=== PATIENT | male | born 1950 | race Caucasian/White ===

== ENCOUNTER 2019-07-23 09:04 | Inpatient (IN) | payer BC, MEDICARE ==
[2019-07-23] MEDS ORDERED: SODIUM CHLORIDE 0.9% 500 ML 500 ML IV ONE (10:07)
[2019-07-23] MEDS ORDERED: SODIUM CHLORIDE 0.9% 1,000 ML IV ONE (10:07)
[2019-07-23] MEDS ORDERED: MIDAZOLAM PF (FBP) 2 MG/2 ML VIAL IV ONE ×2 (10:20)
[2019-07-23] MEDS ORDERED: LIDOCAINE 1% INJ 10MG/ML (20 ML MDV) SQ ONE (10:23)
[2019-07-23] MEDS: MIDAZOLAM PF (FBP) 2 MG/2 ML VIAL IV ONE ×2 (10:26→10:30)
[2019-07-23] MEDS ORDERED: BIVALIRUDIN BOLUS 250 MG/50 ML IV ONE (10:32)
[2019-07-23] MEDS ORDERED: CLOPIDOGREL 75 MG TAB ONE (10:33)
[2019-07-23] MEDS ORDERED: BIVALIRUDIN 250 MG in SODIUM CHLORIDE 0.9% 50 ML IV ONE (10:36)
[2019-07-23] MEDS ORDERED: CLOPIDOGREL 75 MG TAB PO ONE (10:38)
[2019-07-23] MEDS: NITROGLYCERIN 1000MCG/10ML SYRINGE INTRACORON ONE ×2 (10:42→10:50)
[2019-07-23] MEDS ORDERED: MAG HYDROX/AL HYDROX/SIMETH 30 ML CUP PO PRN (10:57)
[2019-07-23] MEDS ORDERED: RX INFO: IV CONTRAST WAS GIVEN 1 EACH MISC MISCELLANE PRN (10:57)
[2019-07-23] MEDS ORDERED: ZOLPIDEM 5 MG TAB PO PRN (10:57)
[2019-07-23] MEDS ORDERED: ATROPINE SULFATE 0.1 MG/ML 10ML SYRINGE IV PRN (10:57)
[2019-07-23] MEDS ORDERED: NITROGLYCERIN SL TABS 0.4 MG TAB SUBLINGUAL PRN (10:57)
[2019-07-23] MEDS ORDERED: SODIUM CHLORIDE 0.9% 1,000 ML IV SCH (11:00)
--- NOTE | 2019-07-23 12:11 | CC ---
CARDIAC CATHETERIZATION REPORT DATE OF SERVICE: July 23, 2019 PERFORMING PHYSICIAN: Marcelino Linda MD, poly packer and heat sealer. PROCEDURE PERFORMED: 1. Selective right and left coronary angiogram. 2. Left heart catheterization. 3. Successful stenting of the mid right coronary artery using 3.0 x 38 mm Xience drug- eluting stent with an excellent angiographic result and reduction of stenosis from 90% to 0%. 4. Successful stenting of the proximal right coronary artery using 3.5 x 28 mm Xience DORIS with an excellent angiographic result and reduction of stenosis from 99% to 0%. INDICATION: This is a 68-year-old gentleman with history of smoking as well as possible hypertension and dyslipidemia, presented to [facility] with shortness of breath. No chest pain. He was ruled in for acute non ST elevation myocardial infarction. The troponin came in to be abnormal around 5. The EKG showed ST changes in the inferior leads quite concerning for severe underlying coronary artery disease. Because of that, a heart catheterization was advised. APPROACH: Right common femoral artery. COMPLICATION: None. LEVEL OF SEDATION: Moderate with sedation length of 30 minutes. PROCEDURE DESCRIPTION: After obtaining an informed consent, the patient was brought to the cardiac laboratory manager. The right common femoral artery was cannulated using micropuncture technique, the micropuncture wire passed easily then I placed a 6-Spanish sheath 11 cm in the right femoral artery. After that I did selective right and left coronary angiogram with JR4 and JL4 catheters. Left heart catheterization was performed using 6-Spanish pigtail catheter. After that I did intervene on the RCA, please see a separate paragraph for that. SELECTIVE CORONARY ANGIOGRAM: 1. The right coronary artery is a large caliber vessel and it is a dominant vessel. The proximal and mid RCA diffusely diseased up to about 99% in the proximal and 90% in the mid. The RCA distally is normal and bifurcates into PDA and PLV branches both appeared to be angiographically normal. 2. The left main is a large caliber vessel. It is angiographically normal. It bifurcates into left circumflex, ramus intermedius, and left anterior descending artery. 3. The left circumflex is a large caliber vessel. It is a nondominant vessel. The left circumflex in the proximal portion has a lesion appeared to be in the range of 60% to 70%. It gives rise into first OM branch which has an intermediate lesion appeared to be in the range of 50% to 60%. 4. The ramus intermedius is a large caliber vessel with mild disease only. 5. The LAD is a large caliber vessel. It has mild disease only. HEMODYNAMICS: The left ventricular end-diastolic pressure was 20 mmHg without significant gradient across the aortic valve. PCI OF THE RCA: Anticoagulation was initiated using Angiomax. Subsequently I did engage the RCA using JR3.5 guide. I did wire it using a whisper wire. I did balloon angioplasty using 3.0 x 15 mm balloon before I deployed in the mid RCA 3.0 x 38 mm Xience drug-eluting stent where the stent was positioned under fluoroscopy guidance and deployed under 14 atmospheres for 20 seconds. For the proximal RCA, I deployed a 3.5 x 28 mm another Xience drug-eluting stent where the second stent was positioned under fluoroscopy guidance with about 2 mm between this stent and the previous stent and the second stent was deployed under 14 atmospheres for 20 seconds. The area of overlap between the 2 stents was dilated using the stent balloon. The final angiogram showed excellent angiographic results and the procedure was completed without any complication. CONCLUSION: 1. Acute coronary syndrome. 2. Critical disease involving the proximal and mid RCA. 3. Intermediate to severe disease involving the left circumflex. 4. Intermediate disease involving the ramus intermedius. 5. Mild disease involving the LAD. 6. Successful stenting of the mid and proximal RCA as described above. POSTPROCEDURE MANAGEMENT: 1. Dual antiplatelet therapy. 2. Risk factors modifications. 3. Follow up with the patient. MMODL / IJN: [id number] /
--- NOTE | 2019-07-23 19:40 | P.EN ---
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 pt is seen by the medical team today at [facility] prior to transfer to [facility]
[2019-07-23] MEDS: ATORVASTATIN 80 MG TAB PO SCH (19:48)
[2019-07-23] MEDS: METOPROLOL TARTRATE 25 MG TAB PO SCH (19:49)
[2019-07-24 07:30] LABS: Basophils % (A) 0 %; Eosinophils % (A) 0 %; HCT 41.4 % (39.0-53.0); Lymphocytes % (A) 12 %; MCH 34.7 pg (25.0-35.0); MCHC 33.9 g/dL (31.0-37.0); MCV 102.1 fL (80.0-100.0); Macrocytosis Slight; Mean Platelet Volume 8.9; Monocytes # (A) 0.7 k/uL (0-1.0); Monocytes % (A) 4 %; Neutrophils # (A) 14.2 k/uL (1.3-7.7); Neutrophils % (A) 83 %; Platelet Count 207 k/uL (150-450); RBC 4.05 m/uL (4.30-5.90); RDW 12.2 % (11.5-15.5); WBC 17.2 k/uL (3.8-10.6)
[2019-07-24 07:50] LABS: African American GFR (CKD) >90 (>60 ml/min/1.73 sqM); Anion Gap 8 mmol/L; Blood Urea Nitrogen 18 mg/dL (9-20); Calcium 8.6 mg/dL (8.4-10.2); Carbon Dioxide 28 mmol/L (22-30); Chloride 102 mmol/L (98-107); Glucose 184 mg/dL (74-99); Potassium 4.1 mmol/L (3.5-5.1); Sodium 138 mmol/L (137-145)
[2019-07-24] MEDS: CLOPIDOGREL 75 MG TAB PO SCH (08:20)
[2019-07-24] MEDS: METOPROLOL TARTRATE 25 MG TAB PO SCH ×2 (08:20→20:13)
[2019-07-24] MEDS ORDERED: ASPIRIN 325 MG TAB PO SCH (09:00)
[2019-07-24] MEDS ORDERED: LISINOPRIL 2.5 MG TAB PO SCH (09:00)
[2019-07-24 10:45] VITALS: BMI 24.0
--- NOTE | 2019-07-24 12:02 | P.HPIM ---
History of Present Illness Wade Jimenez a 68 y.o.malewhopresentswith complaint of shortness of breath ongoing for the last 3 days, worse with exertion. No significant past medical history however has not seen a physician in recent memory. Also had some nausea and vomiting. Has been having left arm pain which patient thought was musculoskeletal in nature. Found to have elevated troponin 5.78,inferior leadsonEKG showed ST segment elevation to inferior leads III, aVF possible reciprocal changes tocontiguous leads.Chest x-ray showed possiblemild pulmonary edema, proBNP 2200. Denies chest pain or discomfort, palpitation.random glucose 226, with hemoglobin A1c 7.2,also had elevated blood [id number] on presentation. Underlying previously undiagnoseddiabetes mellitus, with untreatedhypertension, and patient is smoker stopped 3 days ago. Requiring 2 L nasal cannula supplemental oxygen, room air at home. Received aspirin 324,and then transferred from [facility] where he initially presented to [facility] upon financial reporting accountant recommendation , at [facility] he underwent urgent cardiac cath with stent placement in the right andreas nary artery with improving stenosis found from 90% to 0%. post prcocedure pt feeling better with dyspnea improving and no chest pain . However he still have some coughing and chest secretions. However he denies exertional or resting dyspnea. Vital signs stable and patient is saturating 92% on room air. Patient is afebrile. showing leukocytosis of 17.2 K, Patient states that he has no primary care doctor however his family are working to find him on PCP close to where he lives, patient was instructed to follow-up with his PCP within one week upon discharge and he agrees Review of Systems Review of systems CONSTITUTIONAL: No fever, no malaise, no fatigue. HEENT: No recent visual problems or hearing problems. Denied any sore throat. CARDIOVASCULAR: No orthopnea, PND, no palpitations, no syncope. PULMONARY: no hemoptysis. GASTROINTESTINAL: No diarrhea, no nausea, no vomiting, no abdominal pain. Normoactive bowel sounds. NEUROLOGICAL: No headaches, no weakness, no numbness. HEMATOLOGICAL: Denies any bleeding or petechiae. GENITOURINARY: Denies any burning micturition, frequency, or urgency. MUSCULOSKELETAL/RHEUMATOLOGICAL: Denies any joint pain, swelling, or any muscle pain. ENDOCRINE: Denies any polyuria or polydipsia. Medications and Allergies Allergies Allergy/AdvReac Type Severity Reaction Status Date / Time No Known Allergies Allergy Verified 07/23/19 10:00 Physical Exam Vitals: Vital Signs Temp Pulse Resp BP Pulse Ox 07/24/19 04:00 97.6 F 84 16 155/85 92 L 07/24/19 00:00 97.1 F L 82 16 158/81 95 07/23/19 20:00 98.2 F 97 17 157/76 95 07/23/19 18:22 83 20 07/23/19 18:19 83 20 156/68 94 L 07/23/19 18:15 89 18 155/84 93 L 07/23/19 15:55 82 18 148/74 93 L 07/23/19 15:05 76 16 145/74 93 L 07/23/19 14:00 72 16 153/68 93 L 07/23/19 13:05 74 16 159/81 95 07/23/19 12:35 76 16 156/76 94 L 07/23/19 12:04 70 16 142/75 95 07/23/19 11:50 70 18 144/72 93 L 07/23/19 11:35 70 16 146/70 92 L 07/23/19 11:20 72 16 147/69 92 L Intake and Output 07/23/19 07/23/19 07/24/19 14:59 22:59 06:59 Intake Total 232 510 500 Output Total 650 Balance 232 -140 500 Intake: IV 232 510 20 Invasive Line 1 10 20 Sodium Chloride 0.9% 1, 0 500 000 ml @ 75 mls/hr IV . [id number] COUNT INCLUDES THE [facility] Rx#:[id number] Oral 480 Output: Urine 650 Other: Voiding Method Toilet Toilet # Voids 2 Weight 72.575 kg 71.9 kg GENERAL: The patient is alert and oriented x3, not in any acute distress. Well developed, well nourished. HEENT: Pupils are round and equally reacting to light. EOMI. No scleral icterus. No conjunctival pallor. Normocephalic, atraumatic. No pharyngeal erythema. No thyromegaly. CARDIOVASCULAR: S1 and S2 present. No murmurs, rubs, or gallops. -PULMONARY: Chest is clear to auscultation, no wheezing or crackles. Some coarse crepitation, cleared/change with coughing ABDOMEN: Soft, nontender, nondistended, normoactive bowel sounds. No palpable organomegaly. MUSCULOSKELETAL: No joint swelling or deformity. EXTREMITIES: No cyanosis, clubbing, or pedal edema. NEUROLOGICAL: Gross neurological examination did not reveal any focal deficits. SKIN: No rashes. no petechiae. Results CBC & Chem 7: 07/24/19 06:36 07/24/19 06:36 Assessment and Plan Assessment: Acute inferior wall STEMI, s/p cardiac cath and stent placement in the right coronary artery possible Acute CHF exacerbation possible COPD not in exacerbation Type 2 diabetes mellitus Hypertension Nicotine dependence History of medical noncompliance Plan: this is a pleasant 68 yo M who presents with inferior STEMI, he is status cardiac cath and stent placement, follow financial reporting accountant recommendation , continue with aspirin and plavix. continue with metoprolol and lisinopril , check Hb A1c. Because of leukocytosis, coughing and pulmonary congestion were going to repeat chest x-ray. Differential diagnosis pneumonia versus reactive secondary to his heart attack Labs and medication were reviewed.. Continue same treatment. Continue with symptomatic treatment. Resume home medication. Monitor lytes and vitals. DVT and GI prophylaxis. Further recommendations of the clinical course of the patient DVT prophylaxis: On aspirin and Plavix GI Prophylaxis: Pepcid Prognosis is guarded
[2019-07-24] MEDS ORDERED: ALBUTEROL NEBULIZED 2.5 MG/3 ML INHALATION STA (12:20)
[2019-07-24] MEDS: AZITHROMYCIN 500 MG TAB PO SCH (12:29)
[2019-07-24 13:47] LABS: Hemoglobin A1C 7.7 % (4.0-6.0)
--- NOTE | 2019-07-24 14:06 | XR ---
EXAMINATION TYPE: XR chest 1V DATE OF EXAM: 07/24/2019 COMPARISON: NONE HISTORY: 68-year-old male with productive cough TECHNIQUE: Single frontal view of the chest is obtained. FINDINGS: Heart normal size. Aorta within normal limits. Diffuse interstitial densities in mild patchy left bas ilar opacity. No pleural effusion. IMPRESSION: Interstitial densities could represent bronchitis, asthma, or atypical pneumonias. Mild patchy left b asilar atelectasis versus early infiltrate.
[2019-07-24] MEDS: IPRATROPIUM-ALBUTEROL 3 ML NEB INHALATION PRN ×2 (14:24→19:29)
[2019-07-24] MEDS ORDERED: FUROSEMIDE 10 MG/ML 4 ML VIAL IV STA (14:45)
--- NOTE | 2019-07-24 14:56 | P.CRDCN ---
History of Present Illness Consult date: 07/24/19 Requesting physician: Neal E Sheet Reason for Consult (text): Non-STEMI Chief complaint: Non-STEMI History of present illness: This is a 68-year-old gentleman who presented to [facility] with symptoms of chest discomfort, was found to have a non-ST elevation OH and was transferred here to [facility] where the patient underwent stenting of the proximal and mid right coronary artery. Patient has a known history of diabetes, hypertension, hyperlipidemia. Patient was seen and examined today, continues to have some difficulty in breathing, coughing up some chest secretions and notably has some wheezing. He denies any pain. Blood pressure today 152/80 with a heart rate in the 70s, 92% on room air. White blood cell count 17.2, hemoglobin 14, platelet count 207. Sodium 138, potassium 4.1, BUN 18 and creatinine 0.6. X-ray was performed today which revealed interstitial densities which could represent bronchitis, asthma, or atypical pneumonia. Medications and Allergies Allergies Allergy/AdvReac Type Severity Reaction Status Date / Time No Known Allergies Allergy Verified 07/23/19 10:00 Physical Exam Vitals: Vital Signs Temp Pulse Pulse Pulse Pulse Pulse Resp 07/24/19 14:36 80 07/24/19 14:27 76 07/24/19 11:10 98.2 F 74 18 07/24/19 10:41 92 77 07/24/19 08:37 81 16 07/24/19 08:00 98.3 F 84 16 07/24/19 04:00 97.6 F 84 16 07/24/19 00:00 97.1 F L 82 16 07/23/19 20:00 98.2 F 97 17 07/23/19 18:22 83 20 07/23/19 18:19 83 20 07/23/19 18:15 89 18 07/23/19 15:55 82 18 07/23/19 15:05 76 16 BP BP BP BP Pulse Ox Pulse Ox Pulse Ox 07/24/19 14:36 07/24/19 14:27 07/24/19 11:10 153/83 92 L 07/24/19 10:41 168/89 157/81 92 L 97 07/24/19 08:37 07/24/19 08:00 161/89 92 L 07/24/19 04:00 155/85 92 L 07/24/19 00:00 158/81 95 07/23/19 20:00 157/76 95 07/23/19 18:22 07/23/19 18:19 156/68 94 L 07/23/19 18:15 155/84 93 L 07/23/19 15:55 148/74 93 L 07/23/19 15:05 145/74 93 L Intake and Output 07/23/19 07/24/19 07/24/19 22:59 06:59 14:59 Intake Total 510 500 240 Output Total 650 Balance -140 500 240 Intake: IV 510 20 Invasive Line 1 10 20 Sodium Chloride 0.9% 1, 500 000 ml @ 75 mls/hr IV . [id number] [facility] Rx#:[id number] Oral 480 240 Output: Urine 650 Other: Voiding Method Toilet Toilet Toilet # Voids 2 1 Weight 71.9 kg 71.9 kg PHYSICAL EXAMINATION: GENERAL: 68-year-old gentleman in no acute distress at the time of my examination HEENT: Head is atraumatic, normocephalic. Pupils equal, round. Sclera anicteric. Conjunctiva are clear. Mucous membranes of the mouth are moist. Neck is supple. There is no elevated jugular venous pressure. No carotid bruit is heard. HEART EXAMINATION: Heart S1, S2 normal. No murmur or gallop heard. CHEST EXAMINATION: And's reveal scattered coarse wheezing throughout ABDOMEN: Soft, nontender. Bowel sounds are heard. No organomegaly noted. EXTREMITIES: 2+ peripheral pulses with no evidence of peripheral edema and no calf tenderness noted. Right groin is soft, no evidence of any hematoma. NEUROLOGIC patient is awake, alert and oriented 3 . . Results 07/24/19 06:36 07/24/19 06:36 CBC 07/24/19 Range/Units 06:36 WBC 17.2 H (3.8-10.6) k/uL RBC 4.05 L (4.30-5.90) m/uL Hgb 14.0 (13.0-17.5) gm/dL Hct 41.4 (39.0-53.0) % Plt Count 207 (150-450) k/uL Comprehensive Metabolic Panel 07/24/19 Range/Units 06:36 Sodium 138 (137-145) mmol/L Potassium 4.1 (3.5-5.1) mmol/L Chloride 102 (98-107) mmol/L Carbon Dioxide 28 (22-30) mmol/L BUN 18 (9-20) mg/dL Creatinine 0.68 (0.66-1.25) mg/dL Glucose 184 H (74-99) mg/dL Calcium 8.6 (8.4-10.2) mg/dL Current Medications Generic Name Dose Route Start Last Admin Trade Name Freq PRN Reason Stop Dose Admin Al Hydroxide/Mg Hydroxide 30 ml 07/23/19 10:57 Maalox PO Q4HR PRN Heartburn Albuterol/Ipratropium 3 ml 07/24/19 14:16 07/24/19 14:24 Duoneb 0.5 Mg-3 Mg/3 Ml Soln INHALATION 3 ml RT-QID PRN Administration Shortness Of Breath Or Wheezing Aspirin 81 mg 07/25/19 09:00 Aspirin PO DAILY GURDEEP Atorvastatin Calcium 80 mg 07/23/19 21:00 07/23/19 19:48 Lipitor PO 80 mg HS GURDEEP Administration Atropine Sulfate 0.5 mg 07/23/19 10:57 Atropine IV ONCE PRN Symptomatic Bradycardia Azithromycin 500 mg 07/24/19 12:30 07/24/19 12:29 Zithromax PO 500 mg DAILY GURDEEP Administration Clopidogrel Bisulfate 75 mg 07/24/19 09:00 07/24/19 08:20 Plavix PO 75 mg DAILY GURDEEP Administration Famotidine 20 mg 07/24/19 21:00 Pepcid IV Q12HR GURDEEP Lisinopril 5 mg 07/25/19 09:00 Zestril PO DAILY GURDEEP Metoprolol Tartrate 25 mg 07/23/19 21:00 07/24/19 08:20 Lopressor PO 25 mg BID GURDEEP Administration Miscellaneous Information 1 each 07/23/19 10:57 Rx Info: Iv Contrast Was Given MISCELLANE 07/25/19 10:58 DAILY PRN Per Protocol Nitroglycerin 0.4 mg 07/23/19 10:57 Nitrostat SUBLINGUAL Q5M PRN Chest Pain Zolpidem Tartrate 5 mg 07/23/19 10:57 Ambien PO HS PRN Insomnia Intake and Output 07/23/19 07/24/19 07/24/19 22:59 06:59 14:59 Intake Total 510 500 240 Output Total 650 Balance -140 500 240 Intake: IV 510 20 Invasive Line 1 10 20 Sodium Chloride 0.9% 1, 500 000 ml @ 75 mls/hr IV . [id number] [facility] Rx#:[id number] Oral 480 240 Output: Urine 650 Other: Voiding Method Toilet Toilet Toilet # Voids 2 1 Weight 71.9 kg 71.9 kg Patient Weight 07/25/19 06:59 Weight 71.9 kg 07/24/19 06:36 07/24/19 06:36 EKG Interpretations (text) EKG shows a normal sinus rhythm with no changes from post-PCI. Assessment and Plan Plan: Assessment and plan #1 non-ST elevation OH status post injury plasty and stenting of the right coronary artery #2 hypertension #3 hyperlipidemia #4 diabetes #5 bronchitis, possible asthma exacerbation Plan We will give the patient a breathing treatment, as well as one dose of IV Lasix. Increase dose of HEDY inhibitor to 5 mg daily. We will also request and perform an echocardiogram with Doppler study today. Continue to monitor for another 24 hours, if stable discharge home in the morning tomorrow. DNP note has been reviewed, I agree with a documented findings and plan of care. Patient was seen and examined.
[2019-07-24] MEDS: FAMOTIDINE 20 MG/2 ML VIAL IV SCH (20:13)
[2019-07-24] MEDS: ATORVASTATIN 80 MG TAB PO SCH (20:13)
[2019-07-24] MEDS: FUROSEMIDE 10 MG/ML 2 ML VIAL IV SCH (20:13)
[2019-07-24] MEDS: HEPARIN SODIUM,PORCINE 5,000 UNIT/ML 1 ML VIAL SQ SCH (21:35)
[2019-07-24 22:44] LABS: Basophils % (A) 0 %; Eosinophils # (A) 0.1 k/uL (0-0.7); Eosinophils % (A) 1 %; HCT 41.7 % (39.0-53.0); Lymphocytes # (A) 1.3 k/uL (1.0-4.8); Lymphocytes % (A) 12 %; MCH 35.2 pg (25.0-35.0); MCHC 33.5 g/dL (31.0-37.0); MCV 104.9 fL (80.0-100.0); Macrocytosis Slight; Mean Platelet Volume 9.1; Monocytes # (A) 0.7 k/uL (0-1.0); Monocytes % (A) 6 %; Neutrophils # (A) 8.6 k/uL (1.3-7.7); Neutrophils % (A) 80 %; Platelet Count 173 k/uL (150-450); RBC 3.97 m/uL (4.30-5.90); RDW 12.2 % (11.5-15.5); WBC 10.7 k/uL (3.8-10.6)
[2019-07-25 07:37] LABS: Basophils % (A) 0 %; Eosinophils # (A) 0.2 k/uL (0-0.7); Eosinophils % (A) 2 %; HCT 41.5 % (39.0-53.0); HGB 13.7 gm/dL (13.0-17.5); Lymphocytes # (A) 1.3 k/uL (1.0-4.8); Lymphocytes % (A) 13 %; MCHC 32.9 g/dL (31.0-37.0); MCV 106.2 fL (80.0-100.0); Macrocytosis Slight; Monocytes # (A) 0.6 k/uL (0-1.0); Monocytes % (A) 6 %; Neutrophils % (A) 78 %; Platelet Count 185 k/uL (150-450); RBC 3.91 m/uL (4.30-5.90); RDW 12.2 % (11.5-15.5); WBC 10.3 k/uL (3.8-10.6)
[2019-07-25 07:48] LABS: African American GFR (CKD) >90 (>60 ml/min/1.73 sqM); Anion Gap 9 mmol/L; Blood Urea Nitrogen 19 mg/dL (9-20); Calcium 8.3 mg/dL (8.4-10.2); Carbon Dioxide 28 mmol/L (22-30); Chloride 101 mmol/L (98-107); Glucose 252 mg/dL (74-99); Potassium 4.4 mmol/L (3.5-5.1); Sodium 138 mmol/L (137-145)
[2019-07-25] MEDS ORDERED: ASPIRIN 81 MG PO SCH (09:00)
[2019-07-25] MEDS ORDERED: LISINOPRIL 5 MG TAB PO SCH (09:00)
[2019-07-25] MEDS: FUROSEMIDE 10 MG/ML 2 ML VIAL IV SCH (09:18)
[2019-07-25] MEDS: AZITHROMYCIN 500 MG TAB PO SCH (09:18)
[2019-07-25] MEDS: CLOPIDOGREL 75 MG TAB PO SCH (09:18)
[2019-07-25] MEDS: METOPROLOL TARTRATE 25 MG TAB PO SCH (09:18)
[2019-07-25] MEDS: FAMOTIDINE 20 MG/2 ML VIAL IV SCH (09:19)
[2019-07-25] MEDS: HEPARIN SODIUM,PORCINE 5,000 UNIT/ML 1 ML VIAL SQ SCH (09:19)
[2019-07-25 11:13] VITALS: TEMP 98.5
--- NOTE | 2019-07-25 13:11 | P.CNPUL ---
History of Present Illness Consult date: 07/25/19 Requesting physician: Neal E Effie Reason for consult: dyspnea, COPD, abnormal CXR/CT Chief complaint: Shortness of breath History of present illness: Devin is a pleasant 68-year-old gentleman with no significant past medical history. The patient could not remember the last time he was seen by a physician. He does have a 45+ year pack per day smoking history. On 07/23/2019 he had woke up feeling quite short of breath with significant dyspnea on exertion. He drove to work but did not go in and end up coming to the emergency room at [facility]. He was found to have an acute myocardial infarction with a peak troponin of 20. He is placed on a nitroglycerin drip and heparin drip and transferred to the intensive care unit where he was seen there by Dr. Bryant. He was seen by cardiology and subsequently transferred here to [facility] and had gone to the [employer] and found to have a proximal RCA 95% occlusion and a mid RCA occlusion of 90%. He had undergone 2 stent placements. A chest x-ray yesterday revealed interstitial densities representing possible bronchitis/asthma/atypical pneumonias and a mild patchy left basilar atelectasis versus infiltrate. We are consulted today for the same. He is seen on the selective care unit. He is awake and alert sitting up having lunch. No worsening shortness of breath, cough or congestion. Maintaining O2 saturations in the 90s on 2 L/m per nasal cannula. He's been initiated on bronchodilators, antibiotics in form of azithromycin. He is on Lasix 20 mg IV push every 12 hours. ProBNP 3110. White count 10.3. Hemoglobin 13.7. Creatinine 0.72. Review of Systems REVIEW OF SYSTEMS: CONSTITUTIONAL: Denies any recent significant weight loss or weight gain. EYES: Denies change in vision. EARS, NOSE, MOUTH, THROAT: Denies headaches, denies sore throat. CARDIOVASCULAR: Denies chest pain, palpitations or syncopal episodes. RESPIRATORY: Positive for shortness of breath, cough, congestion no hemoptysis. GASTROINTESTINAL: Denies change in appetite, denies abdominal pain GENITOURINARY: Denies hematuria, denies infections. MUSKULOSKELETAL: Denies pain, denies swelling. INTEGUMENTARY: Denies rash, denies eczema. NEUROLOGICAL: Denies recent memory loss, no recent seizure activity. PSYCHIATRIC: Denies anxiety, denies depression. HEMATOLOGIC/LYMPHATIC: Denies anemia, denies enlarged lymph nodes. Medications and Allergies Home Medications Medication Instructions Recorded Confirmed Type Aspirin 81 mg PO DAILY #90 chewable 07/25/19 Rx Atorvastatin [Lipitor] 80 mg PO HS #90 tab 07/25/19 Rx Azithromycin [Zithromax] 500 mg PO DAILY 2 Days #2 tab 07/25/19 Rx Clopidogrel [Plavix] 75 mg PO DAILY #90 tablet 07/25/19 Rx Lisinopril [Zestril] 10 mg PO DAILY #90 tab 07/25/19 Rx Metoprolol Tartrate [Lopressor] 25 mg PO BID #180 tablet 07/25/19 Rx Nitroglycerin Sl Tabs [Nitrostat] 0.4 mg SUBLINGUAL Q5M PRN #100 tab 07/25/19 Rx Allergies Allergy/AdvReac Type Severity Reaction Status Date / Time No Known Allergies Allergy Verified 07/23/19 10:00 Physical Exam Vitals: Vital Signs Temp Pulse Pulse Resp BP Pulse Ox 07/25/19 08:00 98.5 F 83 20 174/80 07/25/19 03:05 98.3 F 74 16 155/76 96 07/24/19 23:05 97.9 F 72 18 137/67 97 07/24/19 19:39 80 07/24/19 19:30 98.6 F 78 16 153/73 96 07/24/19 19:29 80 96 07/24/19 15:00 98.6 F 78 16 150/70 98 07/24/19 14:36 80 07/24/19 14:27 76 Intake and Output 07/24/19 07/25/19 07/25/19 22:59 06:59 14:59 Intake Total 360 Output Total 1000 Balance -1000 360 Intake: Oral 360 Output: Urine 1000 Other: Voiding Method Toilet Toilet # Voids 1 GENERAL EXAM: Alert, pleasant 68-year-old gentleman, comfortable in no apparent distress. On 2 L nasal cannula. HEAD: Normocephalic. EYES: Normal reaction of pupils, equal size. NOSE: Clear with pink turbinates. THROAT: No erythema or exudates. NECK: No masses, no JVD. CHEST: No chest wall deformity. LUNGS: Equal air entry with bilateral scattered rhonchi, end expiratory wheeze, diminished. CVS: S1 and S2 normal with no audible murmur, regular rhythm. ABDOMEN: No hepatosplenomegaly, normal bowel sounds, no guarding or rigidity. SPINE: No scoliosis or deformity SKIN: No rashes CENTRAL NERVOUS SYSTEM: No focal deficits, tone is normal in all 4 extremities. EXTREMITIES: There is no peripheral edema. No clubbing, no cyanosis. Peripheral pulses are intact. Results - Laboratory Findings CBC and BMP: 07/25/19 06:29 07/25/19 06:29 Abnormal lab findings: Abnormal Labs 07/24/19 07/24/19 07/24/19 06:36 06:36 06:36 WBC 17.2 H RBC 4.05 L MCV 102.1 H MCH Neutrophils # 14.2 H Glucose 184 H Hemoglobin A1c 7.7 H Calcium 07/24/19 07/25/19 07/25/19 21:55 06:29 06:29 WBC 10.7 H RBC 3.97 L 3.91 L MCV 104.9 H 106.2 H MCH 35.2 H Neutrophils # 8.6 H 8.0 H Glucose 252 H Hemoglobin A1c Calcium 8.3 L - Diagnostic Findings Chest x-ray: image reviewed Assessment and Plan Assessment: Impression: #1 Coronary artery disease status post stent placement to the mid and proximal RCA. #2 Dyspnea with cough and congestion. Possible bronchitis, atypical pneumonia. Suspect acute exacerbation of underlying chronic obstructive pulmonary disease. #3 45+ year pack per day smoking history. #4 Diabetes mellitus, type II. #5 Hypertension. #6 No medical follow-up for many years prior to this event. Plan: The patient was seen and evaluated by Dr. Bryant. Chest x-ray and labs reviewed. Evaluate for possible home oxygen. Continue with antibiotics in the form of azithromycin. Continue bronchodilators, Ventolin HFA upon discharge. He should follow-up in our office for full pulmonary function testing and fo llow-up chest x-ray. We'll make further recommendations regarding maintenance inhalers based on the results. He is educated regarding the importance of complete smoking cessation. He and his are both encouraged to call sooner with any pulmonary symptoms or other questions or concerns. I, the cosigning physician, performed a history & physical examination of the patient. Lungs sounds few scattered rhonchi, end expiratory wheeze, diminished Maintaining good O2 saturations in the 90s on 2 L/m per nasal cannula. I discussed the assessment and plan of care with my nurse practitioner, Radha Malave. I attest to the above consultation as dictated by her. Time with Patient: Greater than 30
[2019-07-25 13:30] VITALS: BP 129/76; PULSE 78; RESP 18
[2019-07-25] MEDS ORDERED: methylPREDNISolone 4 MG TAB TAPER PO SCH (14:15)
--- NOTE | 2019-07-25 16:20 | P.DS ---
Providers Date of admission: 07/23/19 09:15 Expected date of discharge: 07/25/19 Attending physician: Neal Chou MD Consults: 07/23/19 10:58 Consult Physician Routine Consulting Provider: [facility] Consult Reason/Comments: Post Interventional patient Do you want consulting provider notified?: Already Contacted 07/24/19 18:07 Consult Physician Routine Consulting Provider: Milena Bryant Consult Reason/Comments: bronchitis/pneumonia Do you want consulting provider notified?: Yes 07/24/19 21:22 Consult Physician Routine Consulting Provider: Milena Bryant Consult Reason/Comments: possible pneumonitis Do you want consulting provider notified?: Yes Primary care physician: Neal Chou MD Hospital Course: 68-year-old gentleman with no significant past medical history. The patient could not remember the last time he was seen by a physician. He does have a 45+ year pack per day smoking history. On 07/23/2019 he had woke up feeling quite short of breath with significant dyspnea on exertion. He drove to work but did not go in and end up coming to the emergency room at [facility]. He was found to have an acute myocardial infarction with a peak troponin of 20. He is placed on a nitroglycerin drip and heparin drip and transferred to the intensive care unit where he was seen there by Dr. Bryant. He was seen by cardiology and subsequently transferred here to [facility] and had gone to the Treater and found to have a proximal RCA 95% occlusion and a mid RCA occlusion of 90%. He had undergone 2 stent placements. A chest x-ray yesterday revealed interstitial densities representing possible bronchitis/asthma/atypical pneumonias and a mild patchy left basilar atelectasis versus infiltrate. We are consulted today for the same. He is seen on the selective care unit. He is awake and alert sitting up having lunch. No worsening shortness of breath, cough or congestion. Maintaining O2 saturations in the 90s on 2 L/m per nasal cannula. He's been initiated on bronchodilators, antibiotics in form of azithromycin. He is on Lasix 20 mg IV push every 12 hours. ProBNP 3110. White count 10.3. Hemoglobin 13.7. Creatinine 0.72. The patient was seen and evaluated by Dr. Bryant. Chest x-ray and labs reviewed. Evaluate for possible home oxygen. Continue with antibiotics in the form of azithromycin. Continue bronchodilators, Ventolin HFA upon discharge. He should follow-up in our office for full pulmonary function testing and follow-up chest x-ray. We'll make further recommendations regarding maintenance inhalers based on the results. He is educated regarding the importance of complete smoking cessation. He and his are both encouraged to call sooner with any pulmonary symptoms or other questions or concerns. patient is cleared for dc by pulmonary and cardiology service Plan - Discharge Summary New Discharge Prescriptions: New Aspirin 81 mg PO DAILY #90 chewable Atorvastatin [Lipitor] 80 mg PO HS #90 tab Metoprolol Tartrate [Lopressor] 25 mg PO BID #180 tablet Nitroglycerin Sl Tabs [Nitrostat] 0.4 mg SUBLINGUAL Q5M PRN #100 tab PRN Reason: Chest Pain Clopidogrel [Plavix] 75 mg PO DAILY #90 tablet Lisinopril [Zestril] 10 mg PO DAILY #90 tab Azithromycin [Zithromax] 500 mg PO DAILY 2 Days #2 tab Discharge Medication List Aspirin 81 mg PO DAILY #90 chewable 07/25/19 [Rx] Atorvastatin [Lipitor] 80 mg PO HS #90 tab 07/25/19 [Rx] Azithromycin [Zithromax] 500 mg PO DAILY 2 Days #2 tab 07/25/19 [Rx] Clopidogrel [Plavix] 75 mg PO DAILY #90 tablet 07/25/19 [Rx] Lisinopril [Zestril] 10 mg PO DAILY #90 tab 07/25/19 [Rx] Metoprolol Tartrate [Lopressor] 25 mg PO BID #180 tablet 07/25/19 [Rx] Nitroglycerin Sl Tabs [Nitrostat] 0.4 mg SUBLINGUAL Q5M PRN #100 tab 07/25/19 [Rx] Follow up Appointment(s)/Referral(s): Marcelino Linda MD [STAFF PHYSICIAN] - 07/28/19 1:15 pm (Sunday) Patient Instructions/Handouts: *Surgery [facility] - After Heart Catheterization - Legal Coordinator Instructions, Left Heart Catheterization (DC)
[2019-07-25] MEDS ORDERED: IPRATROPIUM-ALBUTEROL 3 ML NEB INHALATION SCH (20:00)
[2019-07-25] MEDS ORDERED: FAMOTIDINE 20 MG TAB PO SCH (21:00)
--- NOTE | 2019-07-25 22:29 | PN ---
PROGRESS NOTE Mr. Valverde is doing well. He had a non-ST elevation TN and underwent stenting by Dr. Linda. He developed some bronchitis. I am recommending he can be discharged today. Gave him some Zithromax to take home. Vitals are stable. No JVD. S1-S2 heard normally. Lungs reveal improved air entry with scattered rhonchi. Abdomen and lower extremity exam unchanged. Plan is to discharge the patient today and Dr. Linda will see him in the office in 7-10 days. MMODL / IJN: [id number] /
--- NOTE | 2019-07-30 06:46 | CDI ---
Documentation Clarification Form Date: 07/30/2019 6:36:01 AM From: Anjana Crandall Phone: If you have a question about this query, please contact Florecita Moss Ship Worker at [phone] between 8am and 5pm. Admit Date: 07/23/2019 9:15:00 AM Patient Name: Wade Valverde Visit Number: [id number] Discharge Date: 07/25/2019 6:16:00 PM ATTENTION: The Clinical Documentation Specialists (CDI) and [facility] Coding Staff appreciate your assistance in clarifying documentation. Please respond to the clarification below the line at the bottom and electronically sign. The CDI & [facility] Coding staff will review the response and follow-up if needed. Please note: Queries are made part of the Legal Health Record. If you have any questions, please contact the author of this message via ITS. Dr. Neal Chou Possible acute exacerbation of CHF is documented in the H and P. Please clarify if patient had acute CHF and type of CHF. History/Risk Factors: Patient with STEMI, noncompliant, smoker, COPD, possible pneumonia asthma exacerbation VS/Pulse OX 92% - 95% on 2L: BNP: 3110 Treatment: Lasix 20 gm IV push, PTCA left heart cath In your professional opinion, can you please clarify type of CHF if known? Systolic Heart Failure: Diastolic Heart Failure: Unable to Determine Other, please specify no acute heart failure MTDD
--- NOTE | 2019-07-30 07:17 | CDI ---
Documentation Clarification Form Date: 07/30/2019 6:46:00 AM From: Anjana Crandall Phone: If you have a question about this query, please contact Florecita Moss, Marketing Services Manager at [phone] between 8am and 5pm. Admit Date: 07/23/2019 9:15:00 AM Patient Name: Wade Valverde Visit Number: [id number] Discharge Date: 07/25/2019 6:16:00 PM ATTENTION: The Clinical Documentation Specialists (CDI) and [facility] Coding Staff appreciate your assistance in clarifying documentation. Please respond to the clarification below the line at the bottom and electronically sign. The CDI & [facility] Coding staff will review the response and follow-up if needed. Please note: Queries are made part of the Legal Health Record. If you have any questions, please contact the author of this message via ITS. Dr. Neal Chou Pneumonia was documented in Hospital Course in [facility] as CXR showing interstitial densities possible bronchitis/asthma/atypical pneumonia. Please clarify if patient had pneumonia. History/Risk Factors: STEMI, smoker, COPD, noncompliant, asthma, Clinical Indicators: SOB Vital signs: 98.2 F, 97 bpm, 157/96, 92% on 2L - 95 on RA WBC/Left shift: 10.3 X-ray: interstial densities poss bronchities, asthma, atypical pneumonia Treatment: Broncholdilators and antibiotic Antibiotics Axithromycin O2 2L In order to capture the severity of condition, please clarify if the condition signifies and you are treating for: Atypical pneumonia Atypical pneumonia ruled out COPD COPD exacerbation COPD exacerbation ruled out Asthma exacerbation Asthma exacerbation ruled out Unable to determine possible acute COPD exacerbation MTDD
== END 2019-07-25 18:16 | disposition home or self-care (01) | DRG 247 ==
LOC: 2ORMAIN 09:15 → 2SICU 11:01 → 3SCARD 11:06
PROVIDERS: ADMIT Internal Medicine; ATTEND Internal Medicine
PROC: B2111ZZ Fluoroscopy of Multiple Coronary Arteries using Low Osmolar Contrast (ICD-10-PCS; 2019-07-23)
PROC: 027035Z Dilation of Coronary Artery, One Artery with Two Drug-eluting Intraluminal Devices, Percutaneous Approach (ICD-10-PCS; principal; 2019-07-23 10:01)
PROC: 4A023N7 Measurement of Cardiac Sampling and Pressure, Left Heart, Percutaneous Approach (ICD-10-PCS; 2019-07-23 10:01)
DX: I21.19 ST elevation (STEMI) myocardial infarction involving other coronary artery of inferior wall (principal); J44.1 Chronic obstructive pulmonary disease with (acute) exacerbation; J45.901 Unspecified asthma with (acute) exacerbation; E11.9 Type 2 diabetes mellitus without complications; E78.5 Hyperlipidemia, unspecified; F17.210 Nicotine dependence, cigarettes, uncomplicated; Z71.6 Tobacco abuse counseling; I11.0 Hypertensive heart disease with heart failure; I50.9 Heart failure, unspecified; I25.10 Atherosclerotic heart disease of native coronary artery without angina pectoris; Z79.02 Long term (current) use of antithrombotics/antiplatelets; Z79.82 Long term (current) use of aspirin; Z79.899 Other long term (current) drug therapy; Z91.19 Patient's noncompliance with other medical treatment and regimen; G47.00 Insomnia, unspecified
CPT/HCPCS: 71045; 80048; 83036; 83880; 85025; 93458; 94640; 94760; C1874

== ENCOUNTER 2019-09-10 10:02 | Observation (INO) | payer BC, MEDICARE ==
[2019-09-10] MEDS ORDERED: SODIUM CHLORIDE 0.9% 1,000 ML IV STA (10:38)
--- NOTE | 2019-09-10 10:49 | ED ---
Male Urogenital HPI <Noé Argueta - Last Filed: 09/10/19 12:22> - General Source: patient, RN notes reviewed Mode of arrival: ambulatory Limitations: no limitations <Davis Toney - Last Filed: 09/10/19 12:27> - General Chief complaint: Urogenital Stated complaint: Blood in urine Time Seen by Provider: 09/10/19 10:18 - History of Present Illness Initial comments: 69-year-old male presents emergency Department chief complaint of hematuria. Patient states this started last 24 hours with no associated sharp pain but states that when he completely empties his bladder he has some burning. Patient states he is recent started on Plavix and aspirin as he had a recent heart attack with 2 stents placed. Patient denies any history kidney stones or known prostate issues. He reports no fevers or chills. Patient denies any chest pain, shortness breath, headache, dizziness, fatigue no history of anemia. Patient was a heavy smoker for 50 years recently quit (Davis Toney) - Related Data Previous Rx's Medication Instructions Recorded Aspirin 81 mg PO DAILY #90 chewable 07/25/19 Atorvastatin [Lipitor] 80 mg PO HS #90 tab 07/25/19 Azithromycin [Zithromax] 500 mg PO DAILY 2 Days #2 tab 07/25/19 Clopidogrel [Plavix] 75 mg PO DAILY #90 tablet 07/25/19 Lisinopril [Zestril] 10 mg PO DAILY #90 tab 07/25/19 Metoprolol Tartrate [Lopressor] 25 mg PO BID #180 tablet 07/25/19 Nitroglycerin Sl Tabs [Nitrostat] 0.4 mg SUBLINGUAL Q5M PRN #100 tab 07/25/19 predniSONE 10 mg PO DAILY #30 tab 07/25/19 Allergies Allergy/AdvReac Type Severity Reaction Status Date / Time No Known Allergies Allergy Verified 09/10/19 10:14 Review of Systems ROS Other: All systems not noted in ROS Statement are negative. <Noé Argueta - Last Filed: 09/10/19 12:22> ROS Other: All systems not noted in ROS Statement are negative. <Davis Toney - Last Filed: 09/10/19 12:27> ROS Statement: Those systems with pertinent positive or pertinent negative responses have been documented in the HPI. Past Medical History Past Medical History: Coronary Artery Disease (CAD), COPD, Hyperlipidemia, Hypertension History of Any Multi-Drug Resistant Organisms: None Reported Past Surgical History: Heart Catheterization With Stent, Orthopedic Surgery Additional Past Surgical History / Comment(s): right leg surgery Past Psychological History: No Psychological Hx Reported Smoking Status: Former smoker Past Alcohol Use History: None Reported Past Drug Use History: None Reported <Davis Toney - Last Filed: 09/10/19 12:27> General Exam Limitations: no limitations General appearance: alert, in no apparent distress Head exam: Present: atraumatic, normocephalic, normal inspection Eye exam: Present: normal appearance, PERRL, EOMI. Absent: scleral icterus, conjunctival injection, periorbital swelling ENT exam: Present: normal exam, mucous membranes moist Neck exam: Present: normal inspection. Absent: tenderness, meningismus, lymphadenopathy Respiratory exam: Present: normal lung sounds bilaterally. Absent: respiratory distress, wheezes, rales, rhonchi, stridor Cardiovascular Exam: Present: regular rate, normal rhythm, normal heart sounds. Absent: systolic murmur, diastolic murmur, rubs, gallop, clicks GI/Abdominal exam: Present: soft, normal bowel sounds. Absent: distended, tenderness, guarding, rebound, rigid Back exam: Present: CVA tenderness (R). Absent: CVA tenderness (L) Neurological exam: Present: alert, oriented X3, CN II-XII intact Skin exam: Present: warm, dry, intact, normal color. Absent: rash <Davis Toney M - Last Filed: 09/10/19 12:27> Course Vital Signs 09/10/19 09/10/19 09/10/19 10:10 11:16 11:54 Temperature 98 F Pulse Rate 68 59 L Respiratory 18 20 20 Rate Blood Pressure 132/64 165/77 O2 Sat by Pulse 96 98 Oximetry Medical Decision Making - Lab Data Result diagrams: 09/10/19 10:50 09/10/19 10:50 <Noé Argueta - Last Filed: 09/10/19 12:22> - Lab Data Result diagrams: 09/10/19 10:50 09/10/19 10:50 <Davis Toney - Last Filed: 09/10/19 12:27> - Medical Decision Making Chart and lab results and CT results reviewed. Case was discussed with practitioner Davis. Case also discussed with Dr. Haddad, who will admit covering for hospital call. Gen. surgery will be placed on consult. Sliding-scale insulin will be started. (Noé Argueta) Patient will be admitted for new-onset diabetes, possible bowel obstruction, hematuria. (Davis Toney) - Lab Data Lab Results 09/10/19 09/10/19 09/10/19 Range/Units 10:50 10:50 10:50 WBC 7.7 (3.8-10.6) k/uL RBC 4.10 L (4.30-5.90) m/uL Hgb 14.1 (13.0-17.5) gm/dL Hct 41.0 (39.0-53.0) % MCV 100.2 H D (80.0-100.0) fL MCH 34.5 (25.0-35.0) pg MCHC 34.4 (31.0-37.0) g/dL RDW 12.1 (11.5-15.5) % Plt Count 143 L (150-450) k/uL Neutrophils % 62 % Lymphocytes % 20 % Monocytes % 7 % Eosinophils % 7 % Basophils % 1 % Neutrophils # 4.8 (1.3-7.7) k/uL Lymphocytes # 1.6 (1.0-4.8) k/uL Monocytes # 0.6 (0-1.0) k/uL Eosinophils # 0.6 (0-0.7) k/uL Basophils # 0.1 (0-0.2) k/uL PT 9.9 (9.0-12.0) sec INR 0.9 (<1.2) APTT 24.2 (22.0-30.0) sec Sodium 134 L (137-145) mmol/L Potassium 4.3 (3.5-5.1) mmol/L Chloride 100 (98-107) mmol/L Carbon Dioxide 25 (22-30) mmol/L Anion Gap 9 mmol/L BUN 21 H (9-20) mg/dL Creatinine 0.86 (0.66-1.25) mg/dL Est GFR (CKD-EPI)AfAm >90 (>60 ml/min/1.73 sqM) Est GFR (CKD-EPI)NonAf 90 (>60 ml/min/1.73 sqM) Glucose 389 H (74-99) mg/dL Calcium 9.1 (8.4-10.2) mg/dL Total Bilirubin 1.0 (0.2-1.3) mg/dL AST 26 (17-59) U/L ALT 32 (21-72) U/L Alkaline Phosphatase 89 (38-126) U/L Total Protein 7.0 (6.3-8.2) g/dL Albumin 3.9 (3.5-5.0) g/dL Amylase 51 (30-110) U/L Lipase 115 (23-300) U/L Urine Color Urine Appearance (Clear) Urine pH (5.0-8.0) Ur Specific [place] (1.001-1.035) Urine Protein (Negative) Urine Glucose (UA) (Negative) Urine Ketones (Negative) Urine Blood (Negative) Urine Nitrite (Negative) Urine Bilirubin (Negative) Urine Urobilinogen (<2.0) mg/dL Ur Leukocyte Esterase (Negative) Urine RBC (0-5) /hpf Urine WBC (0-5) /hpf Ur Squamous Epith Cells (0-4) /hpf Urine Bacteria (None) /hpf 09/10/19 Range/Units 10:50 WBC (3.8-10.6) k/uL RBC (4.30-5.90) m/uL Hgb (13.0-17.5) gm/dL Hct (39.0-53.0) % MCV (80.0-100.0) fL MCH (25.0-35.0) pg MCHC (31.0-37.0) g/dL RDW (11.5-15.5) % Plt Count (150-450) k/uL Neutrophils % % Lymphocytes % % Monocytes % % Eosinophils % % Basophils % % Neutrophils # (1.3-7.7) k/uL Lymphocytes # (1.0-4.8) k/uL Monocytes # (0-1.0) k/uL Eosinophils # (0-0.7) k/uL Basophils # (0-0.2) k/uL PT (9.0-12.0) sec INR (<1.2) APTT (22.0-30.0) sec Sodium (137-145) mmol/L Potassium (3.5-5.1) mmol/L Chloride (98-107) mmol/L Carbon Dioxide (22-30) mmol/L Anion Gap mmol/L BUN (9-20) mg/dL Creatinine (0.66-1.25) mg/dL Est GFR (CKD-EPI)AfAm (>60 ml/min/1.73 sqM) Est GFR (CKD-EPI)NonAf (>60 ml/min/1.73 sqM) Glucose (74-99) mg/dL Calcium (8.4-10.2) mg/dL Total Bilirubin (0.2-1.3) mg/dL AST (17-59) U/L ALT (21-72) U/L Alkaline Phosphatase (38-126) U/L Total Protein (6.3-8.2) g/dL Albumin (3.5-5.0) g/dL Amylase (30-110) U/L Lipase (23-300) U/L Urine Color Yellow Urine Appearance Clear (Clear) Urine pH 5.5 (5.0-8.0) Ur Specific [place] 1.026 (1.001-1.035) Urine Protein 1+ H (Negative) Urine Glucose (UA) 4+ H (Negative) Urine Ketones Negative (Negative) Urine Blood Large H (Negative) Urine Nitrite Negative (Negative) Urine Bilirubin Negative (Negative) Urine Urobilinogen <2.0 (<2.0) mg/dL Ur Leukocyte Esterase Negative (Negative) Urine RBC >182 H (0-5) /hpf Urine WBC 4 (0-5) /hpf Ur Squamous Epith Cells <1 (0-4) /hpf Urine Bacteria Rare H (None) /hpf Disposition <Noé Argueta - Last Filed: 09/10/19 12:22> <Davis Toney - Last Filed: 09/10/19 12:27> Clinical Impression: Hematuria, Diabetes mellitus, new onset, Partial bowel obstruction Disposition: ADMITTED IP TO THIS [facility] Condition: Fair Referrals: None,Stated [Primary Care Provider] - 1-2 days
[2019-09-10 11:15] LABS: ALT 32 U/L (21-72); AST 26 U/L (17-59); African American GFR (CKD) >90 (>60 ml/min/1.73 sqM); Albumin 3.9 g/dL (3.5-5.0); Alkaline Phosphatase 89 U/L (38-126); Amylase 51 U/L (30-110); Anion Gap 9 mmol/L; Blood Urea Nitrogen 21 mg/dL (9-20); Calcium 9.1 mg/dL (8.4-10.2); Carbon Dioxide 25 mmol/L (22-30); Chloride 100 mmol/L (98-107); Glucose 389 mg/dL (74-99); INR 0.9 (<1.2); Non-African American GFR(CKD) 90 (>60 ml/min/1.73 sqM); Partial Thromboplastin Time 24.2 sec (22.0-30.0); Potassium 4.3 mmol/L (3.5-5.1); Prothrombin Time 9.9 sec (9.0-12.0); Sodium 134 mmol/L (137-145)
[2019-09-10 11:18] LABS: Basophils # (A) 0.1 k/uL (0-0.2); Basophils % (A) 1 %; Eosinophils # (A) 0.6 k/uL (0-0.7); Eosinophils % (A) 7 %; HGB 14.1 gm/dL (13.0-17.5); Lymphocytes # (A) 1.6 k/uL (1.0-4.8); Lymphocytes % (A) 20 %; MCH 34.5 pg (25.0-35.0); MCHC 34.4 g/dL (31.0-37.0); Mean Platelet Volume 9.1; Monocytes # (A) 0.6 k/uL (0-1.0); Monocytes % (A) 7 %; Neutrophils # (A) 4.8 k/uL (1.3-7.7); Neutrophils % (A) 62 %; Platelet Count 143 k/uL (150-450); RDW 12.1 % (11.5-15.5); WBC 7.7 k/uL (3.8-10.6)
[2019-09-10 11:25] LABS: MCV 100.2 fL (80.0-100.0)
[2019-09-10 11:27] LABS: Appearance,Urine Clear (Clear); Bacteria,Urine Rare /hpf; Bilirubin,Urine Negative (Negative); Blood,Urine Large (Negative); Color,Urine Yellow; Glucose,Urine (UA) 4+ (Negative); Ketones,Urine Negative (Negative); Leukocyte Esterase,Urine Negative (Negative); Nitrite,Urine Negative (Negative); PH, Urine 5.5 (5.0-8.0); Protein,Urine 1+ (Negative); RBC,Urine >182 /hpf (0-5); Specific Gravity,Urine 1.026 (1.001-1.035); Squamous Epithelial Cell,Urine <1 /hpf (0-4); Urobilinogen,Urine <2.0 mg/dL (<2.0); WBC,Urine 4 /hpf (0-5)
--- NOTE | 2019-09-10 11:42 | CT ---
EXAMINATION TYPE: CT abdomen pelvis wo con DATE OF EXAM: 09/10/2019 HISTORY: Rt flank pain, hematuria CT DLP: 570.9 mGycm. Automated Exposure Control for Dose Reduction was Utilized. TECHNIQUE: CT scan of the abdomen and pelvis is performed without oral or IV contrast. COMPARISON: NONE FINDINGS: Within the limitations of a non-contrast study, the following observations are made. LUNG BASES: Right coronary artery stent. Lateral left basilar linear scarring and/or atelectasis. LIVER/GB: Gallbladder has hyperdense material consistent with vicarious excretion of patient recently had contrast or possible gallbladder sludge. No surrounding inflammatory change or wall thickening. PANCREAS: No significant abnormality is seen. SPLEEN: No significant abnormality is seen. ADRENALS: No significant abnormality is seen. KIDNEYS: Central calcifications bilaterally favor vascular calcification particularly on the left. I do suspect nonobstructing 1-3 right renal calculi up to 2 mm in size. No hydronephrosis or obstructin g ureteric calculi are seen bilaterally. No intraluminal calculus in poorly distended bladder. Adjace nt pelvic phlebolith. BOWEL: Slightly low-lying cecum into the right mid pelvis. Normal-appearing appendix coronal image 50 . Focal dilated fluid collection with air-fluid level right upper to mid abdomen axial image 66. No a dditional suspicious small or large bowel dilatation. GENITAL ORGANS: Central calcifications and normal sized prostate. LYMPH NODES: No greater than 1cm abdominal or pelvic lymph nodes are appreciated. OSSEOUS STRUCTURES: Multilevel spurring in the spine. Some narrowing and sclerosis bilateral sacroili ac joints. Moderate narrowing both hip joints. OTHER: Moderate calcified plaque of the aorta extends into branch vessels. IMPRESSION: 1. Suspect view tiny right-sided nonobstructing renal calculi. No hydronephrosis or obstructing urete ral calculi clearly seen bilaterally. 2. Overall nonobstructive bowel gas pattern. Focal thin walled fluid collection with air-fluid level right upper to mid abdomen could reflect partial small bowel obstruction due to adhesions but there i s been history of prior surgery. Cannot exclude fluid collection such as seroma or hematoma. Abscess is in differential but collection does not appear significantly thick walled. Finding can be further investigated with repeat CT with oral contrast.
[2019-09-10] MEDS ORDERED: ONDANSETRON 4 MG/2 ML VIAL IVP PRN (12:27)
[2019-09-10] MEDS ORDERED: NALOXONE 0.4 MG/ML 1 ML VIAL IV PRN (12:27)
[2019-09-10] MEDS ORDERED: INSULIN ASPART (NovoLOG) 100 UNIT/ML VIAL SQ SCH ×2 (12:30→17:30)
[2019-09-10 12:43] LABS: Glucose,Whole Blood 363 mg/dL (75-99)
[2019-09-10] MEDS: SODIUM CHLORIDE 0.9% 1,000 ML IV SCH (12:54)
[2019-09-10] MEDS ORDERED: ALPRAZolam 0.25 MG TAB PO PRN (15:07)
[2019-09-10] MEDS ORDERED: ACETAMINOPHEN TAB 325 MG TAB PO PRN (15:07)
[2019-09-10] MEDS ORDERED: HYDROcodone/APAP 5-325MG 1 EACH TAB PO PRN (15:07)
[2019-09-10] MEDS ORDERED: CALCIUM CARBONATE 500 MG CHEWABLE PO PRN (15:07)
[2019-09-10] MEDS ORDERED: BISACODYL 5 MG TABLET.DR PO PRN (15:07)
[2019-09-10] MEDS ORDERED: MELATONIN 3 MG TABLET PO PRN (15:07)
[2019-09-10] MEDS ORDERED: NITROGLYCERIN SL TABS 0.4 MG TAB SUBLINGUAL PRN (15:12)
--- NOTE | 2019-09-10 15:36 | P.HPIM ---
History of Present Illness H&P Date: 09/10/19 Chief Complaint: hematuria Patient is a 69-year-old male with a past medical history of recent myocardial infarction requiring PCI 2 in July 2019, hypertension, d yslipidemia, COPD, postpolio syndrome, and chronic low back pain who presented to the emergency department secondary to hematuria. In the emergency department he underwent an extensive evaluation. He underwent a CT abdomen and pelvis which showed a tiny right-sided nonobstructing renal calculi without hydronephrosis or ureteral calculi seen bilaterally, is a focal thin-walled fluid collection with an air-fluid level in the right upper extremity mid abdomen which could represent a partial small bowel obstruction due to adhesions or seroma or hematoma. Laboratory analysis was remarkable for an elevated blood sugar 389, platelet count 143, BUN of 21. In the ER he was given a liter of IV fluids and admitted for evaluation of small bowel obstruction. Patient seen and examined at bedside. He report that today after waking he noted blood in his urine. It initially was dark red and this turned his urine a tea color. He has chronic back pain due to a leg length discrepancy, which is unchan ged. He does report intermittent pain on bladder emptying. He denies any difficulty with stream. He has never had this problem before in the beginning of July he was started on ASA and plavix due to stents. He is still having some bllod in his urine. Recently stopped smoking and consuming alcohol but has an extensive smoking and drinking hx. No prior episode of hematuria. No history of diarrhea, constipation, abdominal pain, nausea, vomiting, or decreased appetite. He reports that he had abdominal surgery as a child secondary to having a tube connecting from his kidneys to his umbilicus which had to be removed as he was not processing urine through his bladder. He is unsure of the exact term. He does have a large abdominal scar. He denies any fevers, chills, weight loss. Review of Systems Pertinent positives and negatives as discussed in HPI, a complete review of systems was performed and all other systems are negative. Past Medical History Past Medical History: Coronary Artery Disease (CAD), COPD, Hyperlipidemia, Hypertension, Myocardial Infarction ([place]) Additional Past Medical History / Comment(s): Post polio syndrome,leg length discrepancy History of Any Multi-Drug Resistant Organisms: None Reported Past Surgical History: Heart Catheterization With Stent, Orthopedic Surgery Additional Past Surgical History / Comment(s): right leg surgery Past Psychological History: No Psychological Hx Reported Smoking Status: Former smoker Past Alcohol Use History: None Reported Additional Past Alcohol Use History / Comment(s): Prior ETOH abuse Past Drug Use History: None Reported - Past Family History Father History Unknown: Yes (Patient did not know father and mother in a fire when he was 15) Medications and Allergies Home Medications Medication Instructions Recorded Confirmed Type Aspirin 81 mg PO DAILY #90 chewable 07/25/19 09/10/19 Rx Atorvastatin [Lipitor] 80 mg PO HS #90 tab 07/25/19 09/10/19 Rx Clopidogrel [Plavix] 75 mg PO DAILY #90 tablet 07/25/19 09/10/19 Rx Metoprolol Tartrate [Lopressor] 25 mg PO BID #180 tablet 07/25/19 09/10/19 Rx Nitroglycerin Sl Tabs [Nitrostat] 0.4 mg SUBLINGUAL Q5M PRN #100 tab 07/25/19 09/10/19 Rx Lisinopril [Zestril] 10 mg PO HS 09/10/19 09/10/19 History Lisinopril [Zestril] 20 mg PO DAILY 09/10/19 09/10/19 History Allergies Allergy/AdvReac Type Severity Reaction Status Date / Time No Known Allergies Allergy Verified 09/10/19 12:35 Physical Exam Osteopathic Statement: *. No significant issues noted on an osteopathic structural exam other than those noted in the History and Physical/Consult. Vitals: Vital Signs Temp Pulse Pulse Resp BP BP Pulse Ox 09/10/19 13:28 99.1 F 65 17 188/81 97 09/10/19 13:03 20 09/10/19 12:33 20 09/10/19 12:30 168/76 97 09/10/19 12:00 165/77 97 09/10/19 11:54 20 165/77 09/10/19 11:30 152/79 97 09/10/19 11:16 59 L 20 98 09/10/19 11:14 98 09/10/19 10:10 98 F 68 18 132/64 96 Intake and Output 09/10/19 09/10/19 09/10/19 06:59 14:59 22:59 Other: Voiding Method Toilet Weight 73.028 kg General: non toxic, no distress, appears at stated age, normal weight Derm: large midline scar, no unusual rashes/lesions no unusual ecchymoses, warm, dry Head: atraumatic, normocephalic, symmetric Eyes: EOMI, no lid lag, anicteric sclera, pupils equal round reactive to light ENT: Nose and ears atraumatic, no thrush, no pharyngeal erythema Neck: No thyromegaly, no cervical lymphadenopathy, trachea midline, supple Mouth: no lip lesion, mucus membranes moist Cardiovascular: S1S2 reg, no murmur, positive posterior tibial pulse bilateral, no edema, capillary refill less than 2 seconds Lungs: decreased bs bilateral, no rhonchi, no rales , no accessory muscle use Abdominal: soft, nontender to palpation, no guarding, no appreciable organomegaly, normal bowel sounds Ext: no gross muscle atrophy, muscle strength 5 out of 5 in all 4 extremities grossly, no contractures, Neuro: CN II-XI grossly intact, light touch intact all 4 extremities, finger to nose within normal limits, Psych: Alert, oriented, appropriate affect Results CBC & Chem 7: 09/10/19 10:50 09/10/19 10:50 Labs: Abnormal Lab Results - Last 24 Hours (Table) 09/10/19 09/10/19 09/10/19 Range/Units 10:50 10:50 10:50 RBC 4.10 L (4.30-5.90) m/uL MCV 100.2 H D (80.0-100.0) fL Plt Count 143 L (150-450) k/uL Sodium 134 L (137-145) mmol/L BUN 21 H (9-20) mg/dL Glucose 389 H (74-99) mg/dL POC Glucose (mg/dL) (75-99) mg/dL Urine Protein 1+ H (Negative) Urine Glucose (UA) 4+ H (Negative) Urine Blood Large H (Negative) Urine RBC >182 H (0-5) /hpf Urine Bacteria Rare H (None) /hpf 09/10/19 Range/Units 12:41 RBC (4.30-5.90) m/uL MCV (80.0-100.0) fL Plt Count (150-450) k/uL Sodium (137-145) mmol/L BUN (9-20) mg/dL Glucose (74-99) mg/dL POC Glucose (mg/dL) 363 H (75-99) mg/dL Urine Protein (Negative) Urine Glucose (UA) (Negative) Urine Blood (Negative) Urine RBC (0-5) /hpf Urine Bacteria (None) /hpf CT scan - abdomen: report reviewed CT scan - pelvis: report reviewed Thrombosis Risk Factor Assmnt - DVT/VTE Prophylaxis DVT/VTE Prophylaxis: Mechanical Prophylaxis ordered Assessment and Plan Assessment: Hematuria - suspect secondary to renal calculi in conjunction with needed ASA and plavix. Also concern for - strain urine - Repeat CBC in AM - Consult urology with hx of surgery Suspect seroma of abdomen - no clinical evidence of partial SBO or abscess Hyperglycemia -No history of diabetes -Accu-Cheks and sliding scale insulin -Follow blood sugars -Check hemoglobin A1c Coronary artery disease with recent MD requiring PCI -Happened early July 2019 -Aspirin, Plavix, metoprolol, Lipitor Hypertension -controlled - continue metoprolol and lisinopril HLD - statin The patient is placed in observation with an anticipated less than 2 midnight stay for evaluation of Hematuria. Surrogate decision-maker: DVT prophylaxis: SCDs Discussed with: Patient, nursing, family Anticipated discharge date: in AM Anticipated discharge place: home A total of 65 minutes was spent on the care of this complex patient more than 50% of the time was spent in counseling and care coordination.
[2019-09-10 17:06] LABS: Glucose,Whole Blood 263 mg/dL (75-99)
[2019-09-10 20:03] LABS: Glucose,Whole Blood 306 mg/dL (75-99)
[2019-09-10] MEDS ORDERED: LISINOPRIL 10 MG TAB PO SCH (21:00)
[2019-09-10] MEDS: ATORVASTATIN 80 MG TAB PO SCH ×2 (21:07→21:09)
[2019-09-10] MEDS: METOPROLOL TARTRATE 25 MG TAB PO SCH (21:07)
[2019-09-10] MEDS: INSULIN ASPART (NovoLOG) 100 UNIT/ML VIAL SQ SCH (21:29)
[2019-09-11] MEDS: SODIUM CHLORIDE 0.9% 1,000 ML IV SCH ×2 (00:04→12:47)
[2019-09-11 02:06] LABS: Glucose,Whole Blood 103 mg/dL (75-99)
[2019-09-11 07:02] LABS: Glucose,Whole Blood 121 mg/dL (75-99)
[2019-09-11 07:40] LABS: HCT 38.1 % (39.0-53.0); HGB 12.6 gm/dL (13.0-17.5); MCH 33.5 pg (25.0-35.0); MCHC 33.2 g/dL (31.0-37.0); MCV 100.8 fL (80.0-100.0); Mean Platelet Volume 9.2; Platelet Count 112 k/uL (150-450); RBC 3.78 m/uL (4.30-5.90); RDW 12.1 % (11.5-15.5); WBC 9.9 k/uL (3.8-10.6)
[2019-09-11 07:58] LABS: African American GFR (CKD) >90 (>60 ml/min/1.73 sqM); Anion Gap 7 mmol/L; Blood Urea Nitrogen 18 mg/dL (9-20); Calcium 8.5 mg/dL (8.4-10.2); Carbon Dioxide 24 mmol/L (22-30); Chloride 108 mmol/L (98-107); Glucose 132 mg/dL (74-99); Non-African American GFR(CKD) >90 (>60 ml/min/1.73 sqM); Potassium 4.3 mmol/L (3.5-5.1); Sodium 139 mmol/L (137-145)
[2019-09-11] MEDS: INSULIN ASPART (NovoLOG) 100 UNIT/ML VIAL SQ SCH ×5 (08:34→21:49)
[2019-09-11] MEDS: ASPIRIN 81 MG PO SCH (08:42)
[2019-09-11] MEDS: CLOPIDOGREL 75 MG TAB PO SCH (08:43)
[2019-09-11] MEDS: METOPROLOL TARTRATE 25 MG TAB PO SCH ×2 (08:43→21:47)
[2019-09-11] MEDS ORDERED: LISINOPRIL 20 MG TAB PO SCH (09:00)
[2019-09-11 11:06] LABS: Glucose,Whole Blood 259 mg/dL (75-99)
[2019-09-11 14:28] LABS: Hemoglobin A1C 12.4 % (4.0-6.0)
[2019-09-11 15:47] VITALS: BMI 24.5
--- NOTE | 2019-09-11 16:43 | P.PN ---
Subjective Progress Note Date: 09/11/19 The patient is to follow up today at bedside, but continues to have episodes of hyperglycemia requiring 8-13 units of correction scale coverage, A1c is pending. Seen by Dr. Felix with urology with plan to follow-up in the outpatient setting, urinalysis also showed impression area patient continues on HEDY inhibitor. No acute events overnight Objective - Vital Signs Vital signs: Vital Signs Temp 97.9 F 09/11/19 12:33 Pulse 62 09/11/19 12:33 Resp 16 09/11/19 12:33 BP 175/77 09/11/19 12:33 Pulse Ox 96 09/11/19 12:33 Intake & Output 09/10/19 09/11/19 09/11/19 18:59 06:59 18:59 Intake Total 1415 600 Balance 1415 600 Weight 73.028 kg 73.028 kg Intake: Intake, IV Titration 650 600 Amount Sodium Chloride 0.9% 1, 650 600 000 ml @ 75 mls/hr IV . [id number] [facility] Rx#:[id number] Oral 765 Other: Voiding Method Toilet Toilet Toilet # Voids 1 1 4 # Bowel Movements 1 - Exam Constitutional: No acute distress, conversant, pleasant Eyes: Anicteric sclerae, moist conjunctiva, no lid-lag, PERRLA ENMT: NC/AT,Oropharynx clear, no erythema, exudates Neck:Supple, FROM, no masses, or JVD, No carotid bruits; No thyromegaly Lungs: Clear to auscultation, Clear to percussion, Normal respiratory effort, no accessory muscle use Cardiovascular: Heart regular in rate and rhythm, No murmurs, gallops, or rubs no peripheral edema Abdominal: Soft Nontender, nom distended, no guarding, no rebound or rigidity, Normoactive bowel sounds No hepatomegaly, No splenomegaly, No palpable mass No abdominal wall hernia noted Skin: Normal temperature, tone, texture, turgor, No induration No subcutaneous nodules, No rash, lesions, No ulcers Extremities:No digital cyanosis No clubbing, Pedal pulses intact and symmetrical Radial pulses intact and symmetrical Normal gait and station, No calf tenderness Psychiatric: Alert and oriented to person, place and time, Appropriate affect Intact judgement Neuro: Muscles Strength 5/5 in all 4 extremities, Sensation to light touch grossly present throughout, Cranial nerves II-XII grossly intact. No focal sensory deficits - Labs CBC & Chem 7: 09/11/19 07:18 09/11/19 07:18 Labs: Abnormal Lab Results - Last 24 Hours (Table) 09/10/19 09/10/19 09/11/19 Range/Units 17:05 20:02 02:04 RBC (4.30-5.90) m/uL Hgb (13.0-17.5) gm/dL Hct (39.0-53.0) % MCV (80.0-100.0) fL Plt Count (150-450) k/uL Chloride (98-107) mmol/L Glucose (74-99) mg/dL POC Glucose (mg/dL) 263 H 306 H 103 H (75-99) mg/dL Hemoglobin A1c (4.0-6.0) % 09/11/19 09/11/19 09/11/19 Range/Units 06:59 07:18 07:18 RBC 3.78 L (4.30-5.90) m/uL Hgb 12.6 L (13.0-17.5) gm/dL Hct 38.1 L (39.0-53.0) % MCV 100.8 H (80.0-100.0) fL Plt Count 112 L (150-450) k/uL Chloride (98-107) mmol/L Glucose (74-99) mg/dL POC Glucose (mg/dL) 121 H (75-99) mg/dL Hemoglobin A1c 12.4 H (4.0-6.0) % 09/11/19 09/11/19 Range/Units 07:18 11:04 RBC (4.30-5.90) m/uL Hgb (13.0-17.5) gm/dL Hct (39.0-53.0) % MCV (80.0-100.0) fL Plt Count (150-450) k/uL Chloride 108 H (98-107) mmol/L Glucose 132 H (74-99) mg/dL POC Glucose (mg/dL) 259 H (75-99) mg/dL Hemoglobin A1c (4.0-6.0) % Assessment and Plan Assessment: New onset type 2 diabetes with hyperglycemia * A1c returning at 12.4 * Patient instituted on long-acting insulin regimen with Levemir 20 units daily at bedtime and NovoLog 4 units every before meals with correctional scale coverage * We'll consult diabetic education and dietitian for education with insulin teaching * We'll switch to a diabetic diet Hematuria - suspect secondary to renal calculi in conjunction with needed ASA and plavix. Also concern for - strain urine - Repeat CBC in AM -urology Dr. Cleaning planning outpatient follow-up Suspect seroma of abdomen - no clinical evidence of partial SBO or abscess Coronary artery disease with recent MT requiring PCI -Happened early July 2019 -Aspirin, Plavix, metoprolol, Lipitor Hypertension -controlled - continue metoprolol and lisinopril HLD - statin Patient status change to inpatient secondary to new onset type 2 diabetes with uncontrolled hyperglycemia Surrogate decision-maker: DVT prophylaxis: SCDs Discussed with: Patient, nursing, family Anticipated discharge date: in AM Anticipated discharge place: home
[2019-09-11 17:17] LABS: Glucose,Whole Blood 250 mg/dL (75-99)
[2019-09-11 19:57] LABS: Glucose,Whole Blood 262 mg/dL (75-99)
[2019-09-11] MEDS ORDERED: INSULIN DETEMIR (LEVEMIR) 100 UNIT/ML SYR SQ SCH (21:00)
[2019-09-11] MEDS: ATORVASTATIN 80 MG TAB PO SCH (21:48)
[2019-09-12] MEDS: SODIUM CHLORIDE 0.9% 1,000 ML IV SCH (02:14)
[2019-09-12 02:21] LABS: Glucose,Whole Blood 193 mg/dL (75-99)
[2019-09-12 05:03] VITALS: RESP 16
[2019-09-12 07:21] LABS: Glucose,Whole Blood 132 mg/dL (75-99)
[2019-09-12] MEDS: METOPROLOL TARTRATE 25 MG TAB PO SCH (07:49)
[2019-09-12] MEDS: CLOPIDOGREL 75 MG TAB PO SCH (07:49)
[2019-09-12] MEDS: ASPIRIN 81 MG PO SCH (07:50)
[2019-09-12] MEDS: INSULIN ASPART (NovoLOG) 100 UNIT/ML VIAL SQ SCH ×4 (07:50→12:35)
[2019-09-12] MEDS ORDERED: LISINOPRIL 20 MG TAB PO SCH (09:00)
[2019-09-12 11:13] LABS: Glucose,Whole Blood 300 mg/dL (75-99)
[2019-09-12 11:49] VITALS: BP 174/68; PULSE 59; TEMP 97.8
--- NOTE | 2019-09-20 12:05 | P.DS ---
Providers Date of admission: 09/10/19 12:22 Expected date of discharge: 09/12/19 Attending physician: Liliam Nickerson MD Consults: 09/10/19 15:06 Consult Physician Routine Consulting Provider: Haider Garcia Consult Reason/Comments: hematuria, recent cardiac stents needs to stay on ASA and Plavix Do you want consulting provider notified?: Yes Primary care physician: Stated None Hospital Course: Discharge diagnoses New onset type 2 diabetes with hyperglycemia Coronary artery disease with recent UT requiring PCI Essential hypertension Hyperlipidemia Hematuria Seroma abdomen Hospital course Patient is a 69-year-old male with a past medical history of recent myocardial infarction requiring PCI 2 in July 2019, hypertension, dyslipidemia, COPD, postpolio syndrome, and chronic low back pain who presented to the emergency department secondary to hematuria. She underwent a CT abdomen and pelvis which showed a tiny right nonobstructive renal calculi without hydronephrosis or ureteral calculus seen bilaterally. The patient was seen by urology Dr. Flores recommended outpatient follow-up With a right upper quadrant likely seroma noted on CAT scan. The patient was noted to have elevated blood sugars and A1c confirmed new-onset type 2 diabetes with a hemoglobin A1c of 12.4. The patient was initiated on correctional scale insulin coverage with a regimen of long-acting insulin Levemir 12 units at bedtime and NovoLog 4 units every before meals with this insulin regimen the patient's blood sugars were controlled well. market survey representative and dietitian consult see the patient, the patient was instructed on how to administer his insulin. He was subsequently discharged home in stable condition and instructed to follow-up with his PCP Dr. Bowers. This discharge process took approximately 35 minutes. Focused exam Cardiovascular: Regular rate and rhythm no murmurs rubs or gallops, PMI nondisplaced, no JVD, no peripheral edema Plan - Discharge Summary Discharge Rx Participant: No New Discharge Prescriptions: New Insulin Glargine,Hum.rec.anlog [Lantus Solostar] 12 unit SQ HS 30 Days #1 ml metFORMIN HCL [metFORMIN HCL ER] 500 mg PO BID #60 tab Insulin Aspart [NovoLOG Flexpen] 4 units SQ AC-TID 30 Days #1 ml Continue Aspirin 81 mg PO DAILY #90 chewable Atorvastatin [Lipitor] 80 mg PO HS #90 tab Metoprolol Tartrate [Lopressor] 25 mg PO BID #180 tablet Nitroglycerin Sl Tabs [Nitrostat] 0.4 mg SUBLINGUAL Q5M PRN #100 tab PRN Reason: Chest Pain Clopidogrel [Plavix] 75 mg PO DAILY #90 tablet Lisinopril [Zestril] 20 mg PO DAILY Lisinopril [Zestril] 10 mg PO HS Discharge Medication List Aspirin 81 mg PO DAILY #90 chewable 07/25/19 [Rx] Atorvastatin [Lipitor] 80 mg PO HS #90 tab 07/25/19 [Rx] Clopidogrel [Plavix] 75 mg PO DAILY #90 tablet 07/25/19 [Rx] Metoprolol Tartrate [Lopressor] 25 mg PO BID #180 tablet 07/25/19 [Rx] Nitroglycerin Sl Tabs [Nitrostat] 0.4 mg SUBLINGUAL Q5M PRN #100 tab 07/25/19 [Rx] Lisinopril [Zestril] 10 mg PO HS 09/10/19 [History] Lisinopril [Zestril] 20 mg PO DAILY 09/10/19 [History] Insulin Aspart [NovoLOG Flexpen] 4 units SQ AC-TID 30 Days #1 ml 09/12/19 [Rx] Insulin Glargine,Hum.rec.anlog [Lantus Solostar] 12 unit SQ HS 30 Days #1 ml 09/12/19 [Rx] metFORMIN HCL [metFORMIN HCL ER] 500 mg PO BID #60 tab 09/12/19 [Rx] Follow up Appointment(s)/Referral(s): Sukhjinder Rubio MD [REFERRING] - 10/03/19 11:00 am Jose R Myers MD [STAFF PHYSICIAN] - 09/17/19 10:40 am Patient Instructions/Handouts: Insulin Aspart, Recombinant (By injection), Insulin Glargine (By injection), Heart Attack (DC), Type 2 Diabetes in Adults: New Diagnosis (DC), Hematuria (ED), Bowel Obstruction (DC), Return to Work Instructions (DC) Discharge/Stand Alone Forms: Work/School Release Discharge Disposition: HOME SELF-CARE
== END 2019-09-12 13:00 | disposition home or self-care (01) ==
LOC: EC 10:02 → INTOOBSV 12:22 → 3NMEDONC 12:22 → UNDODISOB 09-12 13:00
PROVIDERS: ADMIT Family Medicine; ATTEND Family Medicine
DX: R31.9 Hematuria, unspecified (principal); E11.65 Type 2 diabetes mellitus with hyperglycemia; E78.5 Hyperlipidemia, unspecified; G14 Postpolio syndrome; G89.29 Other chronic pain; I10 Essential (primary) hypertension; I25.10 Atherosclerotic heart disease of native coronary artery without angina pectoris; I25.2 Old myocardial infarction; J44.9 Chronic obstructive pulmonary disease, unspecified; M21.70 Unequal limb length (acquired), unspecified site; Z79.02 Long term (current) use of antithrombotics/antiplatelets; Z79.4 Long term (current) use of insulin; Z79.82 Long term (current) use of aspirin; Z79.899 Other long term (current) drug therapy; Z87.891 Personal history of nicotine dependence; Z95.5 Presence of coronary angioplasty implant and graft
CPT/HCPCS: 96361 ×2; 96360; 99284; 36415; 80053; 80048; 82150; 83690; 85025; 85027; 85610; 85730; 81001; 83036; 74176; G0378 ×3

== ENCOUNTER 2019-12-16 05:36 | Inpatient (IN) | payer BC, MEDICARE ==
--- NOTE | 2019-12-16 06:07 | ED ---
Male Urogenital HPI - General Chief complaint: Urogenital Stated complaint: Catheter bleeding Time Seen by Provider: 12/16/19 05:47 Source: patient, RN notes reviewed Mode of arrival: wheelchair Limitations: no limitations - History of Present Illness Initial comments: 69-year-old male presents emergency Department chief complaint of clogged Montalvo catheter. Patient states that he had a bladder tumor removed yesterday by Dr. Anne as an outpatient surgery center. Patient states that he was discharged with full a catheter in place. He states it started draining overnight states that he is a constant pressure and is leaking at this time. Patient noted blood within the catheter bag. Patient denies any fevers, chills, chest or shortness breath. Patient offers no other associated complaints. - Related Data Home Medications Medication Instructions Recorded Confirmed Lisinopril 40 mg PO DAILY 12/16/19 12/16/19 Previous Rx's Medication Instructions Recorded Aspirin 81 mg PO DAILY #90 chewable 07/25/19 Atorvastatin [Lipitor] 80 mg PO HS #90 tab 07/25/19 Clopidogrel [Plavix] 75 mg PO DAILY #90 tablet 07/25/19 Metoprolol Tartrate [Lopressor] 25 mg PO BID #180 tablet 07/25/19 Nitroglycerin Sl Tabs [Nitrostat] 0.4 mg SUBLINGUAL Q5M PRN #100 tab 07/25/19 Insulin Aspart [NovoLOG Flexpen] 4 units SQ AC-TID 30 Days #1 ml 09/12/19 Insulin Glargine,Hum.rec.anlog 12 unit SQ HS 30 Days #1 ml 09/12/19 [Lantus Solostar] metFORMIN HCL [metFORMIN HCL ER] 500 mg PO BID #60 tab 09/12/19 Allergies Allergy/AdvReac Type Severity Reaction Status Date / Time No Known Allergies Allergy Verified 12/16/19 10:40 Review of Systems ROS Statement: Those systems with pertinent positive or pertinent negative responses have been documented in the HPI. ROS Other: All systems not noted in ROS Statement are negative. Past Medical History Past Medical History: Coronary Artery Disease (CAD), COPD, Diabetes Mellitus, Hyperlipidemia, Hypertension, Myocardial Infarction ([place]) Additional Past Medical History / Comment(s): Post polio syndrome,leg length discrepancy Last Myocardial Infarction Date:: 07/23/19? History of Any Multi-Drug Resistant Organisms: None Reported Past Surgical History: Heart Catheterization With Stent, Orthopedic Surgery Additional Past Surgical History / Comment(s): right leg surgery, Closure of patent urachus bladder tumor removed 12/15 Past Anesthesia/Blood Transfusion Reactions: No Reported Reaction Date of Last Stent Placement:: 07/23/19 Past Psychological History: No Psychological Hx Reported Smoking Status: Former smoker Past Alcohol Use History: None Reported Past Drug Use History: None Reported - Past Family History Father History Unknown: Yes Mother Additional Family Medical History / Comment(s): Mother of in a MVA when pt was 15 yrs old. Brother(s) Additional Family Medical History / Comment(s): Pt has one brother who of a bowel problem and another brother that of a ruptured aneurysm. General Exam Limitations: no limitations General appearance: alert, in no apparent distress Head exam: Present: atraumatic, normocephalic, normal inspection Eye exam: Present: normal appearance, PERRL, EOMI. Absent: scleral icterus, conjunctival injection, periorbital swelling Neck exam: Present: normal inspection, full ROM. Absent: tenderness, me ningismus, lymphadenopathy Respiratory exam: Present: normal lung sounds bilaterally. Absent: respiratory distress, wheezes, rales, rhonchi, stridor Cardiovascular Exam: Present: regular rate, normal rhythm, normal heart sounds. Absent: systolic murmur, diastolic murmur, rubs, gallop, clicks GI/Abdominal exam: Present: soft, distended, tenderness, normal bowel sounds, other (Old surgical scar inferior to the umbilicus). Absent: guarding, rebound, rigid exam: Absent: normal inspection (Montalvo catheter in place there is some leaking noted, mild hematuria noted) Back exam: Absent: CVA tenderness (R), CVA tenderness (L) Neurological exam: Present: alert Skin exam: Present: warm, dry, intact, normal color. Absent: rash Course Vital Signs 12/16/19 12/16/19 12/16/19 05:43 13:00 14:47 Temperature 97.6 F 97.9 F Pulse Rate 97 69 79 Respiratory 20 18 18 Rate Blood Pressure 90/52 127/65 133/67 O2 Sat by Pulse 99 97 97 Oximetry Medical Decision Making - Medical Decision Making 69-year-old male presented for Montalvo catheter issues. Patient has had multiple Montalvo catheters placed, irrigation with no improvement of symptoms. Patient states the pain is not improving. Patient's case discussed with Dr. Tinsley who recommended a 20-Welsh coud catheter with irrigation. Patient's having increa sing pain, vomiting he is unable to hold fluids at this time. Patient is known diabetic. Patient pain is all over his bladder region. Patient will be admitted for IV fluid hydration, pain control, further evaluation. - Lab Data Result diagrams: 12/16/19 10:10 12/16/19 10:10 Lab Results 12/16/19 12/16/19 12/16/19 Range/Units 10:10 10:10 12:09 WBC 11.4 H (3.8-10.6) k/uL RBC 3.34 L (4.30-5.90) m/uL Hgb 10.9 L (13.0-17.5) gm/dL Hct 33.1 L (39.0-53.0) % MCV 99.2 (80.0-100.0) fL MCH 32.6 (25.0-35.0) pg MCHC 32.8 (31.0-37.0) g/dL RDW 13.3 (11.5-15.5) % Plt Count 147 L (150-450) k/uL Neutrophils % 82 % Lymphocytes % 10 % Monocytes % 6 % Eosinophils % 0 % Basophils % 0 % Neutrophils # 9.4 H (1.3-7.7) k/uL Lymphocytes # 1.2 (1.0-4.8) k/uL Monocytes # 0.7 (0-1.0) k/uL Eosinophils # 0.0 (0-0.7) k/uL Basophils # 0.0 (0-0.2) k/uL Sodium 132 L (137-145) mmol/L Potassium 4.3 (3.5-5.1) mmol/L Chloride 100 (98-107) mmol/L Carbon Dioxide 21 L (22-30) mmol/L Anion Gap 11 mmol/L BUN 33 H (9-20) mg/dL Creatinine 1.21 (0.66-1.25) mg/dL Est GFR (CKD-EPI)AfAm 71 (>60 ml/min/1.73 sqM) Est GFR (CKD-EPI)NonAf 62 (>60 ml/min/1.73 sqM) Glucose 215 H (74-99) mg/dL POC Glucose (mg/dL) 222 H (75-99) mg/dL POC Glu Collection Manager ID Cherelle Womack Calcium 7.6 L (8.4-10.2) mg/dL Disposition Clinical Impression: Intractable abdominal pain, Nausea & vomiting, Hematuria, Montalvo catheter problem Disposition: ADMITTED IP TO THIS HOSP Condition: Fair
[2019-12-16] MEDS ORDERED: LIDOCAINE URO-JET JELLY 2% 5 ML KIT URETHRAL ONE (06:25)
[2019-12-16] MEDS ORDERED: SODIUM CHLORIDE 0.9% IRRIGATIO 3,000 ML IRRIGATION ONE (07:30)
[2019-12-16] MEDS ORDERED: ONDANSETRON 4 MG/2 ML VIAL IVP STA ×2 (10:16→12:12)
[2019-12-16] MEDS ORDERED: MORPHINE SULFATE 4 MG/ML SYRINGE IVP STA (10:16)
[2019-12-16 10:19] LABS: Basophils % (A) 0 %; Eosinophils % (A) 0 %; HCT 33.1 % (39.0-53.0); HGB 10.9 gm/dL (13.0-17.5); Lymphocytes # (A) 1.2 k/uL (1.0-4.8); Lymphocytes % (A) 10 %; MCH 32.6 pg (25.0-35.0); MCHC 32.8 g/dL (31.0-37.0); MCV 99.2 fL (80.0-100.0); Mean Platelet Volume 11.1; Monocytes # (A) 0.7 k/uL (0-1.0); Monocytes % (A) 6 %; Neutrophils # (A) 9.4 k/uL (1.3-7.7); Neutrophils % (A) 82 %; Platelet Count 147 k/uL (150-450); RBC 3.34 m/uL (4.30-5.90); RDW 13.3 % (11.5-15.5); WBC 11.4 k/uL (3.8-10.6)
[2019-12-16 10:39] LABS: Calcium 7.6 mg/dL (8.4-10.2); Potassium 4.3 mmol/L (3.5-5.1)
[2019-12-16 12:12] LABS: Glucose,Whole Blood 222 mg/dL (75-99)
[2019-12-16] MEDS ORDERED: SODIUM CHLORIDE 0.9% 500 ML 500 ML IV ONE (12:40)
[2019-12-16] MEDS ORDERED: HYDROmorphone 0.5 MG/0.5 ML SYRINGE IVP STA (12:40)
[2019-12-16] MEDS ORDERED: SODIUM CHLORIDE 0.9% 1,000 ML IV ONE (12:40)
[2019-12-16] MEDS ORDERED: NALOXONE 0.4 MG/ML 1 ML VIAL IV PRN (12:51)
[2019-12-16] MEDS ORDERED: ACETAMINOPHEN TAB 325 MG TAB PO PRN (12:51)
[2019-12-16] MEDS: SODIUM CHLORIDE 0.9% 1,000 ML IV SCH ×2 (15:33→21:47)
[2019-12-16] MEDS ORDERED: NITROGLYCERIN SL TABS 0.4 MG TAB SUBLINGUAL PRN (15:35)
[2019-12-16] MEDS: INSULIN ASPART (NovoLOG) 100 UNIT/ML VIAL SQ SCH (17:56)
[2019-12-16 17:57] LABS: Glucose,Whole Blood 213 mg/dL (75-99)
--- NOTE | 2019-12-16 18:59 | P.GSHP ---
History of Present Illness H&P Date: 12/16/19 69 yo male who underwent a turbt of a medium sized bladder tumor yesterday as an outpatient Due to cardiac issues he is on plavix and asa and he couldnt come off those. His urine was clear post turbt but last noght he started bleeding He went into clot retention this am and ended up in the er. His catheter was irrigated but I elected to keep in the hospital to watch for further bleeding and retention as the urine has remained bloody. - Cardiovascular Cardiovascular: Reports dyspnea on exertion - Genitourinary (Female) Genitourinary: Reports as per HPI Past Medical History Past Medical History: Coronary Artery Disease (CAD), COPD, Diabetes Mellitus, Hyperlipidemia, Hypertension, Myocardial Infarction (DC) Additional Past Medical History / Comment(s): Post polio syndrome,leg length discrepancy Last Myocardial Infarction Date:: 07/23/19? History of Any Multi-Drug Resistant Organisms: None Reported Past Surgical History: Heart Catheterization With Stent, Orthopedic Surgery Additional Past Surgical History / Comment(s): right leg surgery, Closure of patent urachus bladder tumor removed 12/15 Past Anesthesia/Blood Transfusion Reactions: No Reported Reaction Date of Last Stent Placement:: 07/23/19 Past Psychological History: No Psychological Hx Reported Smoking Status: Former smoker Past Alcohol Use History: None Reported Past Drug Use History: None Reported - Past Family History Father History Unknown: Yes Mother Additional Family Medical History / Comment(s): Mother of in a MVA when pt was 15 yrs old. Brother(s) Additional Family Medical History / Comment(s): Pt has one brother who of a bowel problem and another brother that of a ruptured aneurysm. Medications and Allergies Home Medications Medication Instructions Recorded Confirmed Type Aspirin 81 mg PO DAILY #90 chewable 07/25/19 12/16/19 Rx Atorvastatin [Lipitor] 80 mg PO HS #90 tab 07/25/19 12/16/19 Rx Clopidogrel [Plavix] 75 mg PO DAILY #90 tablet 07/25/19 12/16/19 Rx Metoprolol Tartrate [Lopressor] 25 mg PO BID #180 tablet 07/25/19 12/16/19 Rx Nitroglycerin Sl Tabs [Nitrostat] 0.4 mg SUBLINGUAL Q5M PRN #100 tab 07/25/19 12/16/19 Rx Insulin Aspart [NovoLOG Flexpen] 4 units SQ AC-TID 30 Days #1 ml 09/12/19 12/16/19 Rx Insulin Glargine,Hum.rec.anlog 12 unit SQ HS 30 Days #1 ml 09/12/19 12/16/19 Rx [Lantus Solostar] metFORMIN HCL [metFORMIN HCL ER] 500 mg PO BID #60 tab 09/12/19 12/16/19 Rx Lisinopril 40 mg PO DAILY 12/16/19 12/16/19 History Allergies Allergy/AdvReac Type Severity Reaction Status Date / Time No Known Allergies Allergy Verified 12/16/19 10:40 Surgical - Exam Vital Signs Temp Pulse Resp BP Pulse Ox 97.6 F 97 20 90/52 99 12/16/19 05:43 12/16/19 05:43 12/16/19 05:43 12/16/19 05:43 12/16/19 05:43 - General well developed, well nourished, moderate distress - Eyes PERRL - ENT no hearing loss - Neck no masses - Respiratory normal expansion, normal respiratory effort - Cardiovascular Rhythm: regular - Abdomen tener suprapubically - Genitourinary indwelling catheter normal penis with no external lesions, testicles present - Integumentary no rash, no growths - Psychiatric oriented to time, oriented to person, oriented to place, speech is normal, memory intact Results - Labs 12/16/19 10:10 12/16/19 10:10 Abnormal Lab Results - Last 24 Hours (Table) 12/16/19 12/16/19 12/16/19 Range/Units 10:10 10:10 12:09 WBC 11.4 H (3.8-10.6) k/uL RBC 3.34 L (4.30-5.90) m/uL Hgb 10.9 L (13.0-17.5) gm/dL Hct 33.1 L (39.0-53.0) % Plt Count 147 L (150-450) k/uL Neutrophils # 9.4 H (1.3-7.7) k/uL Sodium 132 L (137-145) mmol/L Carbon Dioxide 21 L (22-30) mmol/L BUN 33 H (9-20) mg/dL Glucose 215 H (74-99) mg/dL POC Glucose (mg/dL) 222 H (75-99) mg/dL Calcium 7.6 L (8.4-10.2) mg/dL 12/16/19 Range/Units 17:55 WBC (3.8-10.6) k/uL RBC (4.30-5.90) m/uL Hgb (13.0-17.5) gm/dL Hct (39.0-53.0) % Plt Count (150-450) k/uL Neutrophils # (1.3-7.7) k/uL Sodium (137-145) mmol/L Carbon Dioxide (22-30) mmol/L BUN (9-20) mg/dL Glucose (74-99) mg/dL POC Glucose (mg/dL) 213 H (75-99) mg/dL Calcium (8.4-10.2) mg/dL Diabetes panel 12/16/19 Range/Units 10:10 Sodium 132 L (137-145) mmol/L Potassium 4.3 (3.5-5.1) mmol/L Chloride 100 (98-107) mmol/L Carbon Dioxide 21 L (22-30) mmol/L BUN 33 H (9-20) mg/dL Creatinine 1.21 (0.66-1.25) mg/dL Glucose 215 H (74-99) mg/dL Calcium 7.6 L (8.4-10.2) mg/dL Calcium panel 12/16/19 Range/Units 10:10 Calcium 7.6 L (8.4-10.2) mg/dL Pituitary panel 12/16/19 Range/Units 10:10 Sodium 132 L (137-145) mmol/L Potassium 4.3 (3.5-5.1) mmol/L Chloride 100 (98-107) mmol/L Carbon Dioxide 21 L (22-30) mmol/L BUN 33 H (9-20) mg/dL Creatinine 1.21 (0.66-1.25) mg/dL Glucose 215 H (74-99) mg/dL Calcium 7.6 L (8.4-10.2) mg/dL Adrenal panel 12/16/19 Range/Units 10:10 Sodium 132 L (137-145) mmol/L Potassium 4.3 (3.5-5.1) mmol/L Chloride 100 (98-107) mmol/L Carbon Dioxide 21 L (22-30) mmol/L BUN 33 H (9-20) mg/dL Creatinine 1.21 (0.66-1.25) mg/dL Glucose 215 H (74-99) mg/dL Calcium 7.6 L (8.4-10.2) mg/dL Assessment and Plan Assessment: Impression: clot urine retention due to post turbt bleeding and anticoagulation Plan: continue with catheter, hand irrigations and observe the bleeding If it continues he may need a second look and cauterization of bleeding
[2019-12-16 20:24] LABS: Glucose,Whole Blood 198 mg/dL (75-99)
[2019-12-16] MEDS: ATORVASTATIN 80 MG TAB PO SCH (20:58)
[2019-12-16] MEDS: INSULIN DETEMIR (LEVEMIR) 100 UNIT/ML SYR SQ SCH (20:58)
[2019-12-16] MEDS: metFORMIN 500 MG TAB PO SCH (21:01)
[2019-12-16] MEDS: LISINOPRIL 20 MG TAB PO SCH (21:01)
[2019-12-16] MEDS: METOPROLOL TARTRATE 25 MG TAB PO SCH (21:01)
[2019-12-16] MEDS: ONDANSETRON 4 MG/2 ML VIAL IVP PRN (21:08)
[2019-12-17] MEDS: SODIUM CHLORIDE 0.9% 1,000 ML IV SCH ×2 (05:45→18:20)
--- NOTE | 2019-12-17 07:17 | P.PN ---
Subjective Progress Note Date: 12/17/19 The patient was brought in the hospital yesterday for clot urinary retention post-TURBT. This was aggravated by the inability to discontinue his Plavix preoperatively due to cardiac reasons. He is doing much better today. The urine still has some old blood but is clearing. His abdomen is soft. His na usea is gone. I will continue with irrigations and observation. I'll observe him through this afternoon may be till tomorrow and then discharge him home if he continues to do well. Objective - Vital Signs Vital signs: Vital Signs Temp 99.5 F 12/17/19 05:00 Pulse 85 12/17/19 05:00 Resp 18 12/17/19 05:00 BP 133/65 12/17/19 05:00 Pulse Ox 92 L 12/17/19 05:00 Intake & Output 12/16/19 12/17/19 12/17/19 18:59 06:59 18:59 Intake Total 240 1200 Output Total 2686 1440 Balance -2446 -240 Weight 76.657 kg Intake: Intake, IV Titration 1200 Amount Sodium Chloride 0.9% 1, 1200 000 ml @ 100 mls/hr IV . Q10H [facility] Rx#:[id number] Oral 240 Output: Urine 2400 1440 3-way Urethral 2300 Uretheral ([place]) 100 Post Void Residual 286 Other: Voiding Method Indwelling Catheter Indwelling Catheter - Labs CBC & Chem 7: 12/16/19 10:10 12/16/19 10:10 Labs: Abnormal Lab Results - Last 24 Hours (Table) 12/16/19 12/16/19 12/16/19 Range/Units 10:10 10:10 12:09 WBC 11.4 H (3.8-10.6) k/uL RBC 3.34 L (4.30-5.90) m/uL Hgb 10.9 L (13.0-17.5) gm/dL Hct 33.1 L (39.0-53.0) % Plt Count 147 L (150-450) k/uL Neutrophils # 9.4 H (1.3-7.7) k/uL Sodium 132 L (137-145) mmol/L Carbon Dioxide 21 L (22-30) mmol/L BUN 33 H (9-20) mg/dL Glucose 215 H (74-99) mg/dL POC Glucose (mg/dL) 222 H (75-99) mg/dL Calcium 7.6 L (8.4-10.2) mg/dL 12/16/19 12/16/19 Range/Units 17:55 20:22 WBC (3.8-10.6) k/uL RBC (4.30-5.90) m/uL Hgb (13.0-17.5) gm/dL Hct (39.0-53.0) % Plt Count (150-450) k/uL Neutrophils # (1.3-7.7) k/uL Sodium (137-145) mmol/L Carbon Dioxide (22-30) mmol/L BUN (9-20) mg/dL Glucose (74-99) mg/dL POC Glucose (mg/dL) 213 H 198 H (75-99) mg/dL Calcium (8.4-10.2) mg/dL
[2019-12-17 07:19] LABS: Glucose,Whole Blood 137 mg/dL (75-99)
[2019-12-17] MEDS: INSULIN ASPART (NovoLOG) 100 UNIT/ML VIAL SQ SCH ×3 (08:02→17:35)
[2019-12-17] MEDS: METOPROLOL TARTRATE 25 MG TAB PO SCH ×2 (08:02→20:37)
[2019-12-17] MEDS: metFORMIN 500 MG TAB PO SCH ×2 (08:02→20:38)
[2019-12-17] MEDS: ASPIRIN 81 MG PO SCH (08:02)
[2019-12-17] MEDS ORDERED: LISINOPRIL 20 MG TAB PO SCH (09:00)
[2019-12-17] MEDS: HYDROmorphone 0.5 MG/0.5 ML SYRINGE IVP PRN ×2 (09:28→19:10)
[2019-12-17 11:11] LABS: Glucose,Whole Blood 288 mg/dL (75-99)
[2019-12-17 16:34] LABS: Glucose,Whole Blood 116 mg/dL (75-99)
[2019-12-17 20:15] LABS: Glucose,Whole Blood 166 mg/dL (75-99)
[2019-12-17] MEDS: ATORVASTATIN 80 MG TAB PO SCH (20:37)
[2019-12-17] MEDS: LISINOPRIL 20 MG TAB PO SCH (20:38)
[2019-12-17] MEDS: INSULIN DETEMIR (LEVEMIR) 100 UNIT/ML SYR SQ SCH (20:38)
[2019-12-18] MEDS: SODIUM CHLORIDE 0.9% 1,000 ML IV SCH ×2 (00:26→10:42)
[2019-12-18 07:07] LABS: Glucose,Whole Blood 116 mg/dL (75-99)
[2019-12-18] MEDS: INSULIN ASPART (NovoLOG) 100 UNIT/ML VIAL SQ SCH ×4 (07:30→17:30)
[2019-12-18] MEDS: METOPROLOL TARTRATE 25 MG TAB PO SCH ×2 (08:13→21:07)
[2019-12-18] MEDS: metFORMIN 500 MG TAB PO SCH ×2 (08:13→21:07)
[2019-12-18] MEDS: ASPIRIN 81 MG PO SCH (08:14)
[2019-12-18] MEDS: ONDANSETRON 4 MG/2 ML VIAL IVP PRN (10:43)
--- NOTE | 2019-12-18 11:01 | P.PN ---
Subjective Progress Note Date: 12/18/19 The patient is in the hospital for post TURBT blood clots. He is draining old blood. I suspect he has a large clot that is slowly dissolving. I attempted to irrigate the bladder but there is still clot in the bladder. I will observe him again today. If he continues the problems I may have to re-cystoscoped the patient tomorrow. The patient's vital signs are otherwise stable. Objective - Vital Signs Vital signs: Vital Signs Temp 99 F 12/18/19 05:00 Pulse 75 12/18/19 05:00 Resp 16 12/18/19 05:00 BP 169/70 12/18/19 05:00 Pulse Ox 98 12/18/19 05:00 Intake & Output 12/17/19 12/18/19 12/18/19 18:59 06:59 18:59 Intake Total 2080 1090 Output Total 5180 1635 550 Balance -3100 545 -550 Intake: Intake, IV Titration 800 800 Amount Sodium Chloride 0.9% 1, 800 800 000 ml @ 100 mls/hr IV . Q10H [facility] Rx#:[id number] Oral 1280 290 Output: Urine 5180 1635 550 Coude 1635 Uretheral (Montalvo) 1300 Other: Voiding Method Indwelling Catheter Indwelling Catheter Indwelling Catheter - Labs CBC & Chem 7: 12/16/19 10:10 12/16/19 10:10 Labs: Abnormal Lab Results - Last 24 Hours (Table) 12/17/19 12/17/19 12/17/19 Range/Units 11:10 16:32 20:14 POC Glucose (mg/dL) 288 H 116 H 166 H (75-99) mg/dL 12/18/19 Range/Units 07:05 POC Glucose (mg/dL) 116 H (75-99) mg/dL
[2019-12-18 11:37] LABS: Glucose,Whole Blood 135 mg/dL (75-99)
[2019-12-18 11:46] LABS: HCT 24.9 % (39.0-53.0); MCH 32.7 pg (25.0-35.0); MCHC 32.7 g/dL (31.0-37.0); Mean Platelet Volume 10.6; Platelet Count 119 k/uL (150-450); RBC 2.49 m/uL (4.30-5.90); RDW 13.3 % (11.5-15.5); WBC 8.8 k/uL (3.8-10.6)
[2019-12-18 11:49] LABS: HGB 8.1 gm/dL (13.0-17.5)
[2019-12-18 17:28] LABS: Glucose,Whole Blood 166 mg/dL (75-99)
[2019-12-18] MEDS: HYDROmorphone 0.5 MG/0.5 ML SYRINGE IVP PRN (20:22)
[2019-12-18 21:01] LABS: Glucose,Whole Blood 176 mg/dL (75-99)
[2019-12-18] MEDS: LISINOPRIL 20 MG TAB PO SCH (21:06)
[2019-12-18] MEDS: INSULIN DETEMIR (LEVEMIR) 100 UNIT/ML SYR SQ SCH (21:07)
[2019-12-18] MEDS: ATORVASTATIN 80 MG TAB PO SCH (21:07)
[2019-12-19] MEDS: HYDROmorphone 0.5 MG/0.5 ML SYRINGE IVP PRN ×3 (01:59→08:02)
[2019-12-19] MEDS: SODIUM CHLORIDE 0.9% 1,000 ML IV SCH ×3 (04:54→17:26)
--- NOTE | 2019-12-19 07:01 | P.PN ---
Subjective Progress Note Date: 12/19/19 The patient is in the hospital with gross hematuria and clot urinary retention post transurethral resection of bladder tumor on Sunday. He had a fair amount of active bleeding well on Plavix required because of cardiac disease. The bleeding has settled. What we are seeing now she just old blood clot slowly dissolving. His hemoglobin gone from 10-8 which is consistent with a pattern in this hospitalization. I think most of the bleeding was in the first 24 hours. I discussed with the patient is the option of undergoing and evacuating the clot and checking things are allowing the clot to dissolve without having to go back to the operating room. He prefers not to go back to the operating room at this point in time. He is relatively comfortable. I will decrease irrigations and ambulate the patient. Hopefully the catheter can be removed and he can be discharged home this weekend. Objective - Vital Signs Vital signs: Vital Signs Temp 98.4 F 12/19/19 05:00 Pulse 70 12/19/19 05:00 Resp 18 12/19/19 05:00 BP 145/66 12/19/19 05:00 Pulse Ox 92 L 12/19/19 05:00 Intake & Output 12/18/19 12/18/19 12/19/19 06:59 18:59 06:59 Intake Total 1090 800 Output Total 1635 1350 1500 Balance -545 550 -1500 Intake: Intake, IV Titration 800 800 Amount Sodium Chloride 0.9% 1, 800 800 000 ml @ 100 mls/hr IV . Q10H [facility]CLUDE 234 BEDS AT THE [facility] Rx#:[id number] Oral 290 Output: Urine 1635 1350 1500 Coude 1635 1500 Other: Voiding Method Indwelling Catheter Indwelling Catheter Indwelling Catheter - Labs CBC & Chem 7: 12/18/19 11:05 12/16/19 10:10 Labs: Abnormal Lab Results - Last 24 Hours (Table) 12/18/19 12/18/19 12/18/19 Range/Units 07:05 11:05 11:21 RBC 2.49 L (4.30-5.90) m/uL Hgb 8.1 L D (13.0-17.5) gm/dL Hct 24.9 L (39.0-53.0) % Plt Count 119 L (150-450) k/uL POC Glucose (mg/dL) 116 H 135 H (75-99) mg/dL 12/18/19 12/18/19 Range/Units 17:25 21:00 RBC (4.30-5.90) m/uL Hgb (13.0-17.5) gm/dL Hct (39.0-53.0) % Plt Count (150-450) k/uL POC Glucose (mg/dL) 166 H 176 H (75-99) mg/dL
[2019-12-19 07:06] LABS: Glucose,Whole Blood 181 mg/dL (75-99)
[2019-12-19] MEDS: ASPIRIN 81 MG PO SCH (08:02)
[2019-12-19] MEDS: metFORMIN 500 MG TAB PO SCH ×2 (08:02→20:20)
[2019-12-19] MEDS: METOPROLOL TARTRATE 25 MG TAB PO SCH ×2 (08:02→20:20)
[2019-12-19] MEDS: INSULIN ASPART (NovoLOG) 100 UNIT/ML VIAL SQ SCH ×3 (08:03→17:25)
[2019-12-19 11:18] LABS: Glucose,Whole Blood 139 mg/dL (75-99)
[2019-12-19 17:04] LABS: Glucose,Whole Blood 220 mg/dL (75-99)
[2019-12-19 20:19] LABS: Glucose,Whole Blood 210 mg/dL (75-99)
[2019-12-19] MEDS: LISINOPRIL 20 MG TAB PO SCH (20:20)
[2019-12-19] MEDS: ATORVASTATIN 80 MG TAB PO SCH (20:20)
[2019-12-19] MEDS: INSULIN DETEMIR (LEVEMIR) 100 UNIT/ML SYR SQ SCH (21:14)
[2019-12-20 06:44] LABS: Glucose,Whole Blood 126 mg/dL (75-99)
[2019-12-20] MEDS: metFORMIN 500 MG TAB PO SCH ×2 (09:12→20:33)
[2019-12-20] MEDS: ASPIRIN 81 MG PO SCH (09:12)
[2019-12-20] MEDS: METOPROLOL TARTRATE 25 MG TAB PO SCH ×2 (09:12→20:33)
[2019-12-20] MEDS: INSULIN ASPART (NovoLOG) 100 UNIT/ML VIAL SQ SCH ×3 (09:12→16:48)
[2019-12-20] MEDS ORDERED: MAGNESIUM HYDROXIDE 2,400 MG/10 ML CUP PO PRN (10:53)
--- NOTE | 2019-12-20 10:53 | P.PN ---
Progress Note - Text Progress Note Date: 12/20/19 The patient underwent transurethral resection of a bladder tumor on 01/13/2020. He subsequently developed urinary clot retention requiring hospitalization. He appears to have residual clot within the bladder. He was offered the option of undergoing cystoscopy with evacuation of clot, but instead elected to undergo catheter drainage allowing the clot to dissolve. The urine shows evidence of old blood with some clots, and the nurse states that she irrigated the catheter overnight. The patient states that he has not had a bowel movement all week, so Colace and milk of magnesia have been ordered. He does report occasional bladder spasms, but I am reluctant to place him on an antimuscarinic agent as this could exacerbate constipation.
[2019-12-20 11:39] LABS: Glucose,Whole Blood 124 mg/dL (75-99)
[2019-12-20] MEDS: DOCUSATE 100 MG CAP PO SCH ×2 (11:51→20:33)
[2019-12-20] MEDS: SODIUM CHLORIDE 0.9% 1,000 ML IV SCH (13:24)
[2019-12-20 16:41] LABS: Glucose,Whole Blood 145 mg/dL (75-99)
[2019-12-20] MEDS: HYDROmorphone 0.5 MG/0.5 ML SYRINGE IVP PRN ×2 (16:49→21:54)
[2019-12-20 19:43] VITALS: RESP 16
[2019-12-20 20:11] LABS: Glucose,Whole Blood 227 mg/dL (75-99)
[2019-12-20] MEDS: LISINOPRIL 20 MG TAB PO SCH (20:33)
[2019-12-20] MEDS: ATORVASTATIN 80 MG TAB PO SCH (20:33)
[2019-12-20] MEDS: INSULIN DETEMIR (LEVEMIR) 100 UNIT/ML SYR SQ SCH (21:02)
[2019-12-21] MEDS: HYDROmorphone 0.5 MG/0.5 ML SYRINGE IVP PRN (01:13)
[2019-12-21 02:36] VITALS: PULSE 66
[2019-12-21] MEDS: SODIUM CHLORIDE 0.9% 1,000 ML IV SCH (05:09)
[2019-12-21 07:01] LABS: Glucose,Whole Blood 112 mg/dL (75-99)
[2019-12-21] MEDS: INSULIN ASPART (NovoLOG) 100 UNIT/ML VIAL SQ SCH ×2 (07:25→12:14)
[2019-12-21] MEDS: METOPROLOL TARTRATE 25 MG TAB PO SCH (07:25)
[2019-12-21] MEDS: DOCUSATE 100 MG CAP PO SCH (07:25)
[2019-12-21] MEDS: ASPIRIN 81 MG PO SCH (07:25)
[2019-12-21] MEDS: metFORMIN 500 MG TAB PO SCH (07:25)
[2019-12-21 07:29] VITALS: BP 162/70; TEMP 98.9
--- NOTE | 2019-12-21 11:18 | P.DS ---
Providers Date of admission: 12/18/19 13:16 Expected date of discharge: 12/21/19 Attending physician: Jose R Myers Primary care physician: Sukhjinder [facility] Course: The patient originally underwent transurethral resection of a large bladder tumor on 12/15. He had gross hematuria with obstruction of his urethral catheter from clots following the surgery and was admitted on 12/16. His bladder was irrigated periodically and eventually all the old clots were removed. He was discharged on 12/20 with a catheter in place. Urine draining from the catheter at that time was clear to light pink in color. The catheter will remain in place until he is seen by Dr. Myers on 12/21. Patient Condition at Discharge: Good Plan - Discharge Summary Discharge Rx Participant: No New Discharge Prescriptions: No Action Aspirin 81 mg PO DAILY #90 chewable Atorvastatin [Lipitor] 80 mg PO HS #90 tab Metoprolol Tartrate [Lopressor] 25 mg PO BID #180 tablet Nitroglycerin Sl Tabs [Nitrostat] 0.4 mg SUBLINGUAL Q5M PRN #100 tab PRN Reason: Chest Pain Clopidogrel [Plavix] 75 mg PO DAILY #90 tablet Insulin Glargine,Hum.rec.anlog [Lantus Solostar] 12 unit SQ HS 30 Days #1 ml metFORMIN HCL [metFORMIN HCL ER] 500 mg PO BID #60 tab Insulin Aspart [NovoLOG Flexpen] 4 units SQ AC-TID 30 Days #1 ml Lisinopril 40 mg PO HS Discharge Medication List Aspirin 81 mg PO DAILY #90 chewable 07/25/19 [Rx] Atorvastatin [Lipitor] 80 mg PO HS #90 tab 07/25/19 [Rx] Clopidogrel [Plavix] 75 mg PO DAILY #90 tablet 07/25/19 [Rx] Metoprolol Tartrate [Lopressor] 25 mg PO BID #180 tablet 07/25/19 [Rx] Nitroglycerin Sl Tabs [Nitrostat] 0.4 mg SUBLINGUAL Q5M PRN #100 tab 07/25/19 [Rx] Insulin Aspart [NovoLOG Flexpen] 4 units SQ AC-TID 30 Days #1 ml 09/12/19 [Rx] Insulin Glargine,Hum.rec.anlog [Lantus Solostar] 12 unit SQ HS 30 Days #1 ml 09/12/19 [Rx] metFORMIN HCL [metFORMIN HCL ER] 500 mg PO BID #60 tab 09/12/19 [Rx] Lisinopril 40 mg PO HS 12/16/19 [History] Follow up Appointment(s)/Referral(s): Jose R Myers MD [STAFF PHYSICIAN] - 12/22/19 9:00 am Activity/Diet/Wound Care/Special Instructions: To remain off Plavix until okayed by Dr. Myers. Catheter should remain in place until removed by Dr. Myers
[2019-12-21 11:44] LABS: Glucose,Whole Blood 214 mg/dL (75-99)
== END 2019-12-21 15:18 | disposition home or self-care (01) | DRG 700 ==
LOC: EC 05:36 → UNDOADMOB 13:28 → 5NMEDONC 13:28 → OBSVTOIN 12-18 13:16 → INTOOBSV 12-18 13:16 → 4SSUR 12-19 15:14
PROVIDERS: ADMIT Urology; ATTEND Urology
DX: T83.091A Other mechanical complication of indwelling urethral catheter, initial encounter (principal); E11.9 Type 2 diabetes mellitus without complications; E78.5 Hyperlipidemia, unspecified; I10 Essential (primary) hypertension; I25.10 Atherosclerotic heart disease of native coronary artery without angina pectoris; I25.2 Old myocardial infarction; J44.9 Chronic obstructive pulmonary disease, unspecified; N32.89 Other specified disorders of bladder; R31.0 Gross hematuria; M21.70 Unequal limb length (acquired), unspecified site; R33.9 Retention of urine, unspecified; Z79.02 Long term (current) use of antithrombotics/antiplatelets; Z79.4 Long term (current) use of insulin; Z79.82 Long term (current) use of aspirin; Z79.899 Other long term (current) drug therapy; Z87.891 Personal history of nicotine dependence; Z95.5 Presence of coronary angioplasty implant and graft; Z82.49 Family history of ischemic heart disease and other diseases of the circulatory system; Y84.6 Urinary catheterization as the cause of abnormal reaction of the patient, or of later complication, without mention of misadventure at the time of the procedure
CPT/HCPCS: 36415; 51702; 51798; 80048; 85025; 85027; 96361; 96374; 96375; 96376; 99284

== ENCOUNTER → 2019-12-25 | Outpatient (CLI) | payer BC ==
--- NOTE | 2019-12-25 14:46 | NM ---
EXAMINATION TYPE: NM bone scan whole body DATE OF EXAM: 12/25/2019 COMPARISON: Correlation CT abdomen pelvis 09/10/2019 HISTORY: 69 year-old male history of bladder cancer Technique: Delayed whole-body scanning was performed following the injection of 23.6 mCi Tc 99m MDP. Images acquired 3.25 hours post injection. FINDINGS: There is degenerative tracer activity at the left sternoclavicular joint, bilateral shoulders, base o f the thumbs and fingers, posterior elements of the lower thoracic and lower lumbar spine, and within the right greater than left hindfoot and midfoot regions. No suspicious distribution of tracer activ ity to indicate osseous metastatic disease. IMPRESSION: Extensive degenerative tracer activity as above. No convincing scintigraphic evidence for osseous met astatic disease.
== END | disposition home or self-care (01) ==
LOC: RADNMMAIN 09:32
PROVIDERS: ATTEND Urology
DX: C67.9 Malignant neoplasm of bladder, unspecified (principal)
CPT/HCPCS: 78306; A9503

== ENCOUNTER → 2020-02-05 | Outpatient (CLI) | payer BC ==
[2020-02-05 14:06] LABS: Albumin 4.5 g/dL (3.5-5.0); Calcium 9.7 mg/dL (8.4-10.2); Potassium 4.9 mmol/L (3.5-5.1); Total Bilirubin 0.3 mg/dL (0.2-1.3); Total Protein 7.7 g/dL (6.3-8.2)
--- NOTE | 2020-02-05 16:07 | CT ---
EXAMINATION TYPE: CT ChestAbdPelvis w con DATE OF EXAM: 02/05/2020 COMPARISON: 09/10/2019 HISTORY: 69-year-old male Malignant neoplasm of bladder. TECHNIQUE: Contiguous axial scanning of the chest, abdomen, and pelvis performed with IV Contrast, pa tient injected with 100 mL of Isovue 300. Delayed images through the kidneys were obtained. Coronal/s agittal reconstructions performed. CT DLP: 972 mGycm Automated exposure control for dose reduction was used. FINDINGS: CHEST: Heart normal size with three-vessel coronary artery calcifications. No pericardial effusion. Aorta normal caliber with mild atherosclerotic arch calcifications and conventional arch vessel branc tho anatomy. Scattered mild to moderate atelectatic changes throughout the descending thoracic aorta . Mildly enlarged 1.3 cm right hilar lymph node could be chronic postinflammatory. Short interval follo w-up can be performed to reassess. Otherwise, no thoracic lymphadenopathy by CT size criteria. Mild to moderate upper lung centrilobular emphysema. Mild diffuse bronchial wall thickening. No conso lidation or pleural effusion. ABDOMEN: Tiny hiatal hernia. No focal liver lesion. There is abnormal density measuring 5.7 cm within the gallbladder lumen. There is suggestion of a flu id fluid level, possible vicarious excretion of contrast or dense bile. Gallbladder ultrasound recomm ended to exclude an intraluminal gallbladder mass. No biliary ductal dilatation. Portal venous system is patent. Adrenal glands, kidneys, spleen, and pancreas appear within normal limits. Moderate atherosclerotic changes throughout the abdominal aorta and iliac arteries with segmental mod erate stenoses in the external iliac arteries. No dilated small bowel, free fluid, or free air. No mesenteric or retroperitoneal lymphadenopathy. Moderate stool burden. Oral contrast has progressed to the cecum. No pericolonic inflammatory change. PELVIS: Mild circumferential bladder wall thickening. There is more eccentric thickening along the right late ral and right bladder dome. Refer to axial image 107. Prostate gland is enlarged at 4.4 cm wide. A pe lvic phlebolith is noted. No abnormal fluid collection the pelvis or pelvic lymphadenopathy seen. BONES: Degenerative changes at the hips. Degenerative bridging ankylosis at the SI joints. Moderate degenera tive disc disease lower thoracic spine. IMPRESSION: 1. SOME ECCENTRIC RIGHT-SIDED BLADDER WALL THICKENING MAY REFLECT SITE OF PRIMARY NEOPLASM OR POSTTRE ATMENT CHANGE. 2. MILDLY ENLARGED 1.3 CM RIGHT HILAR LYMPH NODE COULD BE CHRONIC POSTINFLAMMATORY. CONSIDER 3-6 KRUNAL H FOLLOW-UP CT TO REASSESS GIVEN ABSENCE OF ADDITIONAL FINDINGS IN THE REMAINDER OF THE CHEST, ABDOME N, AND PELVIS TO SUGGEST METASTATIC DISEASE. 3. ABNORMAL DENSITY WITHIN THE GALLBLADDER LUMEN MEASURING 5.7 CM, POSSIBLE VICARIOUS EXCRETION OF CO NTRAST GIVEN SUGGESTION OF A FLUID FLUID LEVEL. GALLBLADDER ULTRASOUND RECOMMENDED TO EXCLUDE THE POS SIBILITY OF AN INTRALUMINAL BLADDER MASS. 4. COPD WITH MILD TO MODERATE EMPHYSEMA. CAD.
== END | disposition home or self-care (01) ==
LOC: RADCTMAIN 12:47
PROVIDERS: ATTEND Urology
DX: N32.89 Other specified disorders of bladder (principal); J43.2 Centrilobular emphysema; K82.8 Other specified diseases of gallbladder; R59.9 Enlarged lymph nodes, unspecified; I25.10 Atherosclerotic heart disease of native coronary artery without angina pectoris; C67.9 Malignant neoplasm of bladder, unspecified
CPT/HCPCS: 80053; 71260; 74177; 36415; Q9967 ×2

== ENCOUNTER → 2020-04-22 | Outpatient (CLI) | payer BC ==
[2020-04-22 14:46] LABS: African American GFR (CKD) >90 (>60 ml/min/1.73 sqM); Blood Urea Nitrogen 21 mg/dL (9-20); Non-African American GFR(CKD) >90 (>60 ml/min/1.73 sqM)
--- NOTE | 2020-04-22 15:45 | CT ---
EXAMINATION TYPE: CT angio chest DATE OF EXAM: 04/22/2020 COMPARISON: 02/05/2020 HISTORY: SOB AFTER CHEMO TREATMENT CT DLP: 516 mGycm CONTRAST: CT chest with contrast and 3D reconstruction with MIP imaging is performed with IV Contrast, patient injected with 80 mL of Isovue 370. Contrast-enhanced CT of the chest was performed through the course of the pulmonary arteries with robinson g and mediastinal window settings submitted. 3D reconstruction with MIP imaging was also performed. PULMONARY ARTERIES: The pulmonary arteries and their major tributaries are patent. I do not see lidya dence for sizable filling defect to suggest pulmonary embolic process. LUNGS: Small bilateral pleural effusions and basilar compressive atelectasis. MEDIASTINUM: Thoracic aorta is of normal caliber,however, evaluation is limited given timing of the contrast bolus. If there is concern for thoracic aortic pathology consider GABRIEL. Correlate clinicall y . The heart is not enlarged. No evidence for mediastinal mass. No mediastinal lymph nodes greater than 1cm. HILAR STRUCTURES: Right hilar lymph node measuring approximately 1.6 cm. No evidence for mass. No hi lar lymph nodes greater than 1 cm. UPPER ABDOMEN: Hypodensity again noted within the gallbladder unchanged from prior study. Correlate w ith ultrasound. IMPRESSION: 1. No evidence for Pulmonary embolism at this time.
== END | disposition home or self-care (01) ==
LOC: RADCTMAIN 14:09
PROVIDERS: ATTEND Internal Medicine Hematology & Oncology
DX: R06.02 Shortness of breath (principal)
CPT/HCPCS: 82565; 84520; 71275; 36415; Q9967

== ENCOUNTER 2020-05-13 09:28 | Inpatient (IN) | payer BC, MEDICARE ==
[2020-05-13] MEDS ORDERED: SODIUM CHLORIDE 0.9% 1,000 ML IV STA ×2 (09:45)
--- NOTE | 2020-05-13 10:04 | ED ---
Nausea/Vomiting/Diarrhea HPI - General Chief complaint: Nausea/Vomiting/Diarrhea Stated complaint: Diarrhea Time Seen by Provider: 05/13/20 09:37 Source: patient, RN notes reviewed, old records reviewed Mode of arrival: ambulatory Limitations: no limitations - History of Present Illness Initial comments: Patient is a 69-year-old male who presents emergency department today for evaluation for frequent diarrhea since Sunday. Patient reportedly been und ergoing chemotherapy and radiation treatment for bladder cancer. His last chemotherapy was on . He reportedly sees Dr. Burnhamh Dr. Juarez for this. He denies any bloody stools. He reports anything he eats will cause severe diarrhea. He denies any significant abdominal pain. - Related Data Home Medications Medication Instructions Recorded Confirmed lisinopriL [Lisinopril] 40 mg PO HS 12/16/19 05/13/20 CISplatin [Cisplatin] 50 mg IV DIRECTED 05/13/20 05/13/20 Cholecalciferol [Vitamin D3 (25 5,000 unit PO DAILY 05/13/20 05/13/20 Mcg = 1000 Iu)] Cyanocobalamin [Vitamin B-12] 500 mcg PO DAILY 05/13/20 05/13/20 Diphenox-Atrop 2.5-0.025 mg 1 tab PO BID PRN 05/13/20 05/13/20 [Lomotil] Ferrous Sulfate [Feosol] 325 mg PO DAILY 05/13/20 05/13/20 Previous Rx's Medication Instructions Recorded Aspirin 81 mg PO DAILY #90 chewable 07/25/19 Atorvastatin [Lipitor] 80 mg PO HS #90 tab 07/25/19 Clopidogrel [Plavix] 75 mg PO DAILY #90 tablet 07/25/19 Nitroglycerin Sl Tabs [Nitrostat] 0.4 mg SUBLINGUAL Q5M PRN #100 tab 07/25/19 Insulin Glargine,Hum.rec.anlog 12 unit SQ HS 30 Days #1 ml 09/12/19 [Lantus Solostar] metFORMIN HCL [metFORMIN HCL ER] 500 mg PO BID #60 tab 09/12/19 Allergies Allergy/AdvReac Type Severity Reaction Status Date / Time No Known Allergies Allergy Verified 05/13/20 09:35 Review of Systems ROS Statement: Those systems with pertinent positive or pertinent negative responses have been documented in the HPI. ROS Other: All systems not noted in ROS Statement are negative. Past Medical History Past Medical History: Coronary Artery Disease (CAD), Cancer, COPD, Diabetes Mellitus, Hyperlipidemia, Hypertension, Myocardial Infarction (NC) Additional Past Medical History / Comment(s): Post polio syndrome,leg length discrepancy, bladder CA Last Myocardial Infarction Date:: 07/23/19? History of Any Multi-Drug Resistant Organisms: None Reported Past Surgical History: Heart Catheterization With Stent, Orthopedic Surgery Additional Past Surgical History / Comment(s): right leg surgery, Closure of patent urachus bladder tumor removed 12/15 Past Anesthesia/Blood Transfusion Reactions: No Reported Reaction Date of Last Stent Placement:: 07/23/19 Past Psychological History: No Psychological Hx Reported Smoking Status: Former smoker Past Alcohol Use History: None Reported Past Drug Use History: None Reported - Past Family History Father History Unknown: Yes Mother Additional Family Medical History / Comment(s): Mother of in a MVA when pt was 15 yrs old. Brother(s) Additional Family Medical History / Comment(s): Pt has one brother who of a bowel problem and another brother that of a ruptured aneurysm. General Exam Limitations: no limitations General appearance: alert, in no apparent distress Head exam: Present: atraumatic, normocephalic, normal inspection Eye exam: Present: normal appearance, PERRL, EOMI. Absent: scleral icterus, conjunctival injection, periorbital swelling ENT exam: Present: normal exam, mucous membranes moist Neck exam: Present: normal inspection. Absent: tenderness, meningismus, lymphadenopathy Respiratory exam: Present: normal lung sounds bilaterally. Absent: respiratory distress, wheezes, rales, rhonchi, stridor Cardiovascular Exam: Present: regular rate, normal rhythm, normal heart sounds. Absent: systolic murmur, diastolic murmur, rubs, gallop, clicks GI/Abdominal exam: Present: soft, normal bowel sounds. Absent: distended, tenderness, guarding, rebound, rigid Extremities exam: Present: normal inspection, full ROM, normal capillary refill. Absent: tenderness, pedal edema, joint swelling, calf tenderness Back exam: Present: normal inspection Neurological exam: Present: alert, oriented X3, CN II-XII intact Psychiatric exam: Present: normal affect, normal mood Skin exam: Present: warm, dry, intact, normal color. Absent: rash Course Vital Signs 05/13/20 05/13/20 05/13/20 09:30 09:49 10:30 Temperature 98.2 F Pulse Rate 91 Respiratory 18 18 18 Rate Blood Pressure 88/50 106/51 125/55 O2 Sat by Pulse 98 97 Oximetry 05/13/20 05/13/20 11:18 12:17 Temperature Pulse Rate 81 92 Respiratory 18 18 Rate Blood Pressure 140/51 148/57 O2 Sat by Pulse 97 96 Oximetry Medical Decision Making - Medical Decision Making 69-year-old male presents emergency department today with 5 days of diarrhea since his last chemotherapy treatment. At this time Patient does appear to be dehydrated. Did have a bowel movement emergency department. Labs are reviewed. He is is significantly dehydrated elevated BUN/creatinine. Magnesium as well as 1.0 calcium of 6.1. Patient was given supplements and IV fluid hydration. Patient was admitted this time with consults to Dr. gavin. - Lab Data Result diagrams: 05/13/20 10:48 05/13/20 10:48 Lab Results 05/13/20 05/13/20 05/13/20 Range/Units 10:48 10:48 10:48 WBC 3.6 L (3.8-10.6) k/uL RBC 3.17 L (4.30-5.90) m/uL Hgb 10.4 L (13.0-17.5) gm/dL Hct 30.9 L (39.0-53.0) % MCV 97.5 (80.0-100.0) fL MCH 32.6 (25.0-35.0) pg MCHC 33.5 (31.0-37.0) g/dL RDW 15.1 (11.5-15.5) % Plt Count 110 L (150-450) k/uL Neutrophils % 80 % Lymphocytes % 7 % Monocytes % 8 % Eosinophils % 2 % Basophils % 0 % Neutrophils # 2.9 (1.3-7.7) k/uL Lymphocytes # 0.3 L (1.0-4.8) k/uL Monocytes # 0.3 (0-1.0) k/uL Eosinophils # 0.1 (0-0.7) k/uL Basophils # 0.0 (0-0.2) k/uL PT 10.7 (9.0-12.0) sec INR 1.0 (<1.2) APTT 24.3 (22.0-30.0) sec Sodium 134 L (137-145) mmol/L Potassium 4.5 (3.5-5.1) mmol/L Chloride 105 (98-107) mmol/L Carbon Dioxide 14 L (22-30) mmol/L Anion Gap 15 mmol/L BUN 62 H (9-20) mg/dL Creatinine 2.49 H (0.66-1.25) mg/dL Est GFR (CKD-EPI)AfAm 30 (>60 ml/min/1.73 sqM) Est GFR (CKD-EPI)NonAf 26 (>60 ml/min/1.73 sqM) Glucose 266 H (74-99) mg/dL Plasma Lactic Acid Bryan (0.7-2.0) mmol/L Calcium 6.1 L* (8.4-10.2) mg/dL Magnesium 1.0 L (1.6-2.3) mg/dL Total Bilirubin 0.5 (0.2-1.3) mg/dL AST 64 H (17-59) U/L ALT 61 H (4-49) U/L Alkaline Phosphatase 85 (38-126) U/L Total Protein 5.9 L (6.3-8.2) g/dL Albumin 3.2 L (3.5-5.0) g/dL Amylase <30 L (30-110) U/L Lipase 53 (23-300) U/L // Range/Units 10:48 WBC (3.8-10.6) k/uL RBC (4.30-5.90) m/uL Hgb (13.0-17.5) gm/dL Hct (39.0-53.0) % MCV (80.0-100.0) fL MCH (25.0-35.0) pg MCHC (31.0-37.0) g/dL RDW (11.5-15.5) % Plt Count (150-450) k/uL Neutrophils % % Lymphocytes % % Monocytes % % Eosinophils % % Basophils % % Neutrophils # (1.3-7.7) k/uL Lymphocytes # (1.0-4.8) k/uL Monocytes # (0-1.0) k/uL Eosinophils # (0-0.7) k/uL Basophils # (0-0.2) k/uL PT (9.0-12.0) sec INR (<1.2) APTT (22.0-30.0) sec Sodium (137-145) mmol/L Potassium (3.5-5.1) mmol/L Chloride (98-107) mmol/L Carbon Dioxide (22-30) mmol/L Anion Gap mmol/L BUN (9-20) mg/dL Creatinine (0.66-1.25) mg/dL Est GFR (CKD-EPI)AfAm (>60 ml/min/1.73 sqM) Est GFR (CKD-EPI)NonAf (>60 ml/min/1.73 sqM) Glucose (74-99) mg/dL Plasma Lactic Acid Bryan 1.6 (0.7-2.0) mmol/L Calcium (8.4-10.2) mg/dL Magnesium (1.6-2.3) mg/dL Total Bilirubin (0.2-1.3) mg/dL AST (17-59) U/L ALT (4-49) U/L Alkaline Phosphatase (38-126) U/L Total Protein (6.3-8.2) g/dL Albumin (3.5-5.0) g/dL Amylase (30-110) U/L Lipase (23-300) U/L Disposition Clinical Impression: Bladder cancer, Chemotherapy induced diarrhea, Hypomagnesemia, Hypocalcemia, Dehydration Disposition: ADMITTED IP TO THIS [facility] Condition: Stable Is patient prescribed a controlled substance at d/c from ED?: No Referrals: Sukhjinder Rubio MD [Primary Care Provider] - 1-2 days Time of Disposition: 12:50
[2020-05-13 11:01] LABS: Basophils % (A) 0 %; Eosinophils # (A) 0.1 k/uL (0-0.7); Eosinophils % (A) 2 %; HCT 30.9 % (39.0-53.0); HGB 10.4 gm/dL (13.0-17.5); Lymphocytes # (A) 0.3 k/uL (1.0-4.8); Lymphocytes % (A) 7 %; MCH 32.6 pg (25.0-35.0); MCHC 33.5 g/dL (31.0-37.0); MCV 97.5 fL (80.0-100.0); Mean Platelet Volume 10.5; Monocytes # (A) 0.3 k/uL (0-1.0); Monocytes % (A) 8 %; Neutrophils # (A) 2.9 k/uL (1.3-7.7); Neutrophils % (A) 80 %; Platelet Count 110 k/uL (150-450); RBC 3.17 m/uL (4.30-5.90); RDW 15.1 % (11.5-15.5); WBC 3.6 k/uL (3.8-10.6)
[2020-05-13 11:16] LABS: ALT 61 U/L (4-49); AST 64 U/L (17-59); African American GFR (CKD) 30 (>60 ml/min/1.73 sqM); Albumin 3.2 g/dL (3.5-5.0); Alkaline Phosphatase 85 U/L (38-126); Amylase <30 U/L (30-110); Anion Gap 15 mmol/L; Blood Urea Nitrogen 62 mg/dL (9-20); Carbon Dioxide 14 mmol/L (22-30); Chloride 105 mmol/L (98-107); Glucose 266 mg/dL (74-99); Non-African American GFR(CKD) 26 (>60 ml/min/1.73 sqM); Potassium 4.5 mmol/L (3.5-5.1); Sodium 134 mmol/L (137-145); Total Bilirubin 0.5 mg/dL (0.2-1.3); Total Protein 5.9 g/dL (6.3-8.2)
[2020-05-13 11:20] LABS: Partial Thromboplastin Time 24.3 sec (22.0-30.0); Prothrombin Time 10.7 sec (9.0-12.0)
[2020-05-13 11:37] LABS: Calcium 6.1 mg/dL (8.4-10.2)
[2020-05-13] MEDS ORDERED: CALCIUM GLUCONATE 1 GM in SODIUM CHLORIDE 0.9% 100 ML IVPB ONE (12:24)
[2020-05-13] MEDS ORDERED: SODIUM CHLORIDE 0.9% 1,000 ML IV ONE (12:25)
[2020-05-13] MEDS ORDERED: ACETAMINOPHEN TAB 325 MG TAB PO PRN (12:51)
[2020-05-13] MEDS ORDERED: ONDANSETRON 4 MG/2 ML VIAL IVP PRN (12:51)
[2020-05-13] MEDS ORDERED: KETOROLAC 30 MG/ML 1 ML VIAL IVP PRN (12:51)
[2020-05-13] MEDS ORDERED: NALOXONE 0.4 MG/ML 1 ML VIAL IV PRN (12:51)
[2020-05-13] MEDS: MAGNESIUM SULFATE-D5W PMX 1 GM in DEXTROSE/WATER 1 100ML.BAG IVPB SCH ×4 (13:09→19:18)
[2020-05-13 13:37] LABS: Appearance,Urine Clear (Clear); Bacteria,Urine Rare /hpf; Bilirubin,Urine Negative (Negative); Blood,Urine Small (Negative); Color,Urine Yellow; Glucose,Urine (UA) 3+ (Negative); Ketones,Urine Negative (Negative); Leukocyte Esterase,Urine Small (Negative); Mucus,Urine Rare /hpf; Nitrite,Urine Negative (Negative); PH, Urine 5.5 (5.0-8.0); Protein,Urine 2+ (Negative); RBC,Urine 7 /hpf (0-5); Specific Gravity,Urine 1.013 (1.001-1.035); Urobilinogen,Urine <2.0 mg/dL (<2.0); WBC,Urine 33 /hpf (0-5)
[2020-05-13] MEDS ORDERED: HYDROmorphone 0.5 MG/0.5 ML SYRINGE IVP PRN (15:55)
[2020-05-13] MEDS ORDERED: ALPRAZolam 0.25 MG TAB PO PRN (15:55)
[2020-05-13] MEDS ORDERED: TEMAZEPAM 15 MG CAP PO PRN (15:55)
[2020-05-13] MEDS ORDERED: DIPHENOX-ATROP 2.5-0.025 MG 1 EACH TAB PO PRN (15:57)
[2020-05-13] MEDS ORDERED: NITROGLYCERIN SL TABS 0.4 MG TAB SUBLINGUAL PRN (15:57)
[2020-05-13] MEDS ORDERED: Magnesium Replacement Protocol 1 EACH MISC MISCELLANE PRN (16:03)
[2020-05-13] MEDS ORDERED: Potassium Replacement Protocol 1 EACH MISC MISCELLANE PRN (16:03)
[2020-05-13] MEDS: IOPAMIDOL CONTRAST (ORAL USE) VIAL PO PRN ×2 (16:23→17:15)
[2020-05-13] MEDS: CEFEPIME 2 GM in SODIUM CHLORIDE 0.9% 100 ML IVPB SCH ×2 (16:23→23:24)
--- NOTE | 2020-05-13 16:42 | XR ---
EXAMINATION: XR chest 1V portable DATE AND TIME: 05/13/2020 4:18 PM CLINICAL INDICATION: PHH; chf TECHNIQUE: AP upright portable COMPARISON: 07/24/2019 FINDINGS: The lungs are negative for acute findings. Baseline subtle interstitial pattern is redemonstrated. The pleural spaces are negative. The cardiac silhouette is not enlarged. The remainder of the mediastinal silhouette is unremarkable. The skeletal structures and soft tissues are negative for acute findings. IMPRESSION: No acute radiographic process.
--- NOTE | 2020-05-13 17:03 | HP ---
HISTORY AND PHYSICAL CHIEF COMPLAINTS: Abdominal pain and diarrhea. HISTORY OF PRESENT ILLNESS: This us a 69-year-old gentleman with a past medical history of multiple medical problems including CAD, history of diabetes and hypertension, history of bladder cancer, stage II, poorly differentiated papillary urothelial cancer who is receiving chemotherapy and radiation from Dr. Banda and Dr. Juarez in the outpatient setting, was complaining of some multiple episodes of diarrhea. The patient is extremely weak and patient came to [facility] and admitted for further evaluation and treatment. The patient was found to have acute renal failure. There is no history of fever, chills, rigors. No history of headaches, loss of consciousness, seizures. PAST MEDICAL HISTORY: CAD, diabetes, hypertension, history of bladder cancer on chemoradiation. HOME MEDICATIONS ARE: Lantus 12 units subcu q.h.s., Lipitor, iron sulfate, Lomotil p.r.n., vitamin B12, vitamin D3, cisplatin, metformin, Nitrostat, lisinopril, Plavix, aspirin. ALLERGIES: None. FAMILY HISTORY: History of motor vehicle accident. SOCIAL HISTORY: Previous history of smoking. No history of alcohol intake. REVIEW OF SYSTEMS: ENT: No diminished vision. CARDIOVASCULAR: No angina or palpitations. RESPIRATION: No cough. GI: As mentioned earlier. : As mentioned earlier. NERVOUS SYSTEM: No numbness or weakness. ALLERGY/IMMUNOLOGY: No asthma or hayfever. MUSCULOSKELETAL: As mentioned earlier. HEMATOLOGY: No history of anemia. ENDOCRINE: As mentioned earlier. CONSTITUTIONAL: As mentioned earlier. PSYCHIATRY: As mentioned earlier. PHYSICAL EXAMINATION: Patient is alert and oriented x3. Pulse 76, blood pressure 130/58, respirations 16, temperature 98.6, pulse ox 98% on room air. HEENT: Conjunctivae normal. Oral mucosa moist. NECK: No jugular venous distention. No lymph node enlargement. CARDIOVASCULAR SYSTEMS: S1, S2, muffled. RESPIRATION: Breath sounds diminsihed at the bases, a few scattered rhonchi, no crackles. ABDOMEN: Soft, mild diffuse distention. Mild diffuse discomfort on palpation. No guarding. No rigidity. No mass palpable, no ascites. LEGS: No edema, no swelling. NERVOUS SYSTEM: Higher functions as mentioned earlier. Moves all 4 limbs. No focal motor deficits. LYMPHATICS: No lymph node enlargement in the neck or axillae. SKIN: No ulcer, no rashes. JOINTS: No active deformity. LABS: At this time shows WBC 3.6, hemoglobin is 10.4, and platelets 110. Sodium 134, creatinine 2.1 and calcium 6.2. Other labs are noted. ASSESSMENT: 1. Diarrhea, dehydration, possibly chemotherapy induced. 2. Rule out sepsis. 3. Acute renal failure, possibly acute prerenal acute tubular necrosis. 4. Acidosis, metabolic acidosis secondary to renal failure. 5. Hyponatremia. 6. Hypocalcemia. 7. Neutropenia. 8. Anemia. 9. Thrombocytopenia. 10.Mild pancytopenia secondary to chemotherapy. 11.Increased AST, ALT. 12.Mild hepatitis. 13.Hypomagnesemia. 14.Hypoalbuminemia with mild protein calorie malnutrition. 15.Possible urinary tract infection. 16.History of coronary artery disease. 17.Diabetes mellitus type 2. 18.Hypertension. 19.History of myocardial infarction. 20.History of stage 2 bladder cancer with poorly differentiated papillary urothelial cancer, on chemoradiation. 21.Chronic obstructive pulmonary disease, stent. 22.Remote history of nicotine dependence. 23.FULL CODE. RECOMMENDATION: In this 69-year-old gentleman with multiple complex medical issues, at this time I recommend to continue current management and symptomatic treatment. Otherwise, at this time I recommend a CAT scan of the abdomen and pelvis. Empiric antibiotics, cultures. Supplement magnesium. Monitor potassium. Will monitor lytes. Will monitor the counts closely. CBC, BMP will be repeated. Guarded prognosis because of multiple complex medical issues. A copy of this will be forwarded to Dr. Rubio who is the primary physician. MMODL / IJN: [id number] /
[2020-05-13 17:10] LABS: Glucose,Whole Blood 245 mg/dL (75-99)
[2020-05-13] MEDS: CHOLESTYRAMINE (WITH SUGAR) 4 GM PACKET PO SCH (17:34)
[2020-05-13 19:42] LABS: Glucose,Whole Blood 237 mg/dL (75-99)
[2020-05-13] MEDS: lisinopriL 20 MG TAB PO SCH (20:36)
[2020-05-13] MEDS: INSULIN DETEMIR (LEVEMIR) 100 UNIT/ML SYR SQ SCH (20:36)
[2020-05-13] MEDS: HEPARIN SODIUM,PORCINE 5,000 UNIT/ML 1 ML VIAL SQ SCH (20:36)
--- NOTE | 2020-05-13 22:28 | CT ---
EXAMINATION TYPE: CT abdomen pelvis wo con DATE OF EXAM: 05/13/2020 COMPARISON: 02/05/2020 HISTORY: Abdominal pain and diarrhea. CT DLP: 525.4 mGycm Automated exposure control for dose reduction was used. Multiple axial sections were obtained from the diaphragm to the floor the pelvis with oral contrast o nly. FINDINGS: Lung bases are clear. There is no pleural effusion. Heart size is normal. There is no pericardial eff usion. Liver spleen stomach pancreas appear normal. There is high attenuation in the gallbladder cons istent with contrast excretion. There is a filling defect consistent with 2 cm gallstone. The bile du cts are not dilated. There is no adrenal mass. Kidneys have normal size. There is no hydronephrosis. Ureters are not dilat ed. There is no retroperitoneal adenopathy. Abdominal aorta is atheromatous. There is some renal vasc ular calcification. I see no definite renal calculus. 1 to 2 mm renal calculi are possible in the rig ht kidney. There is thickening of the urinary bladder wall. There is no inguinal hernia. There is prostatic calc ification. Prostate measures 4.5 cm. There is no inguinal hernia. Appendix is posterior and medial an d appears normal. There is some wall thickening of the rectosigmoid colon. There is fairly normal appearing fecal mater ial in the descending colon. The small bowel is not dilated. There is no ascites. There is no sign of free air. I see no evidence of a bowel obstruction. Lumbar vertebra have normal alignment. There is no compression fracture. Bony pelvis is intact. IMPRESSION: There is rectal wall thickening suggestive of colitis. This appears new compared to old exam. Atherosclerotic vascular disease. Cholelithiasis. Diffuse urinary bladder wall thickening suggestive of nonspecific cystitis. No bowel obstruction.
[2020-05-14 07:24] LABS: Glucose,Whole Blood 134 mg/dL (75-99)
[2020-05-14 07:28] LABS: Basophils % (A) 0 %; Eosinophils % (A) 2 %; HCT 25.9 % (39.0-53.0); Lymphocytes # (A) 0.3 k/uL (1.0-4.8); Lymphocytes % (A) 17 %; MCH 31.3 pg (25.0-35.0); MCV 94.9 fL (80.0-100.0); Monocytes # (A) 0.2 k/uL (0-1.0); Monocytes % (A) 11 %; Neutrophils # (A) 1.3 k/uL (1.3-7.7); Neutrophils % (A) 66 %; RBC 2.73 m/uL (4.30-5.90)
[2020-05-14 07:47] LABS: HGB 8.6 gm/dL (13.0-17.5)
[2020-05-14 08:12] LABS: Albumin 2.5 g/dL (3.5-5.0); Potassium 4.5 mmol/L (3.5-5.1); Total Bilirubin 0.5 mg/dL (0.2-1.3); Total Protein 4.9 g/dL (6.3-8.2)
[2020-05-14 08:29] LABS: Calcium 5.7 mg/dL (8.4-10.2)
[2020-05-14] MEDS ORDERED: CALCIUM GLUCONATE 1 GM in SODIUM CHLORIDE 0.9% 100 ML IVPB ONE (08:32)
[2020-05-14] MEDS: CEFEPIME 2 GM in SODIUM CHLORIDE 0.9% 100 ML IVPB SCH ×3 (09:08→23:42)
[2020-05-14] MEDS: CLOPIDOGREL 75 MG TAB PO SCH (09:10)
[2020-05-14] MEDS: ATORVASTATIN 80 MG TAB PO SCH (09:10)
[2020-05-14] MEDS: CHOLECALCIFEROL 1,000 UNIT TAB PO SCH (09:10)
[2020-05-14] MEDS: CHOLESTYRAMINE (WITH SUGAR) 4 GM PACKET PO SCH ×2 (09:10→17:38)
[2020-05-14] MEDS: PANTOPRAZOLE 40 MG/10 ML VIAL IV SCH (09:11)
[2020-05-14] MEDS: CYANOCOBALAMIN 500 MCG TAB PO SCH (09:11)
[2020-05-14] MEDS: HEPARIN SODIUM,PORCINE 5,000 UNIT/ML 1 ML VIAL SQ SCH ×2 (09:11→21:11)
[2020-05-14] MEDS: ASPIRIN 81 MG PO SCH (09:11)
[2020-05-14 09:23] LABS: Anisocytosis (M) Present; Platelet Count 85 k/uL (150-450); Poikilocytosis (M) Present
--- NOTE | 2020-05-14 10:31 | P.PN ---
Subjective Progress Note Date: 05/14/20 Principal diagnosis: dehydration/EDITH due to chemoRT Patient reports he is feeling much better today. Yesterday had intractable diarrhea and decreased intake. He notes the bowel movements have slowed significantly. No urinary complaints. Objective - Vital Signs Vital signs: Vital Signs Temp 98.1 F 05/14/20 05:00 Pulse 74 05/14/20 05:00 Resp 16 05/14/20 05:00 BP 120/63 05/14/20 05:00 Pulse Ox 96 05/14/20 05:00 Intake & Output 05/13/20 05/14/20 05/14/20 18:59 06:59 18:59 Intake Total 2250 Output Total 760 Balance 1490 Weight 72.575 kg Intake: Intake, IV Titration 700 Amount Cefepime 2 gm In Sodium 100 Chloride 0.9% 100 ml @ 200 mls/hr IVPB Q8HR GURDEEP Rx#:[id number] Magnesium Sulfate-D5w Pmx 200 1 gm In Dextrose/Water 1 100ml.bag @ 100 mls/hr IVPB Q1H GURDEEP Rx#: [id number] Sodium Chloride 0.9% 1, 400 000 ml @ 100 mls/hr IV . Q10H STA Rx#:[id number] Oral 1550 Output: Urine 700 Stool 60 Other: Voiding Method Toilet Toilet Urinal Urinal - Constitutional General appearance: Present: no acute distress - EENT Eyes: Present: EOMI, PERRLA ENT: Present: hearing grossly normal - Neck Neck: Absent: lymphadenopathy - Respiratory Respiratory: bilateral: CTA - Cardiovascular Rhythm: regular - Gastrointestinal General gastrointestinal: Absent: distended, tenderness - Integumentary Integumentary: Absent: calor - Neurologic Neurologic: Present: CNII-XII intact - Musculoskeletal Musculoskeletal: Present: strength equal bilaterally - Psychiatric Psychiatric: Present: A&O x's 3, appropriate affect - Labs CBC & Chem 7: 05/14/20 06:09 05/14/20 06:09 Labs: Abnormal Lab Results - Last 24 Hours (Table) 05/13/20 05/13/20 05/13/20 Range/Units 10:48 10:48 13:16 WBC 3.6 L (3.8-10.6) k/uL RBC 3.17 L (4.30-5.90) m/uL Hgb 10.4 L (13.0-17.5) gm/dL Hct 30.9 L (39.0-53.0) % Plt Count 110 L (150-450) k/uL Lymphocytes # 0.3 L (1.0-4.8) k/uL Sodium 134 L (137-145) mmol/L Chloride (98-107) mmol/L Carbon Dioxide 14 L (22-30) mmol/L BUN 62 H (9-20) mg/dL Creatinine 2.49 H (0.66-1.25) mg/dL Glucose 266 H (74-99) mg/dL POC Glucose (mg/dL) (75-99) mg/dL Calcium 6.1 L* (8.4-10.2) mg/dL Magnesium 1.0 L (1.6-2.3) mg/dL AST 64 H (17-59) U/L ALT 61 H (4-49) U/L Total Protein 5.9 L (6.3-8.2) g/dL Albumin 3.2 L (3.5-5.0) g/dL Amylase <30 L (30-110) U/L Urine Protein 2+ H (Negative) Urine Glucose (UA) 3+ H (Negative) Urine Blood Small H (Negative) Ur Leukocyte Esterase Small H (Negative) Urine RBC 7 H (0-5) /hpf Urine WBC 33 H (0-5) /hpf Urine Bacteria Rare H (None) /hpf Urine Mucus Rare H (None) /hpf 05/13/20 05/13/20 05/14/20 Range/Units 17:08 19:41 06:09 WBC 2.0 L (3.8-10.6) k/uL RBC 2.73 L (4.30-5.90) m/uL Hgb 8.6 L D (13.0-17.5) gm/dL Hct 25.9 L (39.0-53.0) % Plt Count 85 L (150-450) k/uL Lymphocytes # 0.3 L (1.0-4.8) k/uL Sodium (137-145) mmol/L Chloride (98-107) mmol/L Carbon Dioxide (22-30) mmol/L BUN (9-20) mg/dL Creatinine (0.66-1.25) mg/dL Glucose (74-99) mg/dL POC Glucose (mg/dL) 245 H 237 H (75-99) mg/dL Calcium (8.4-10.2) mg/dL Magnesium (1.6-2.3) mg/dL AST (17-59) U/L ALT (4-49) U/L Total Protein (6.3-8.2) g/dL Albumin (3.5-5.0) g/dL Amylase (30-110) U/L Urine Protein (Negative) Urine Glucose (UA) (Negative) Urine Blood (Negative) Ur Leukocyte Esterase (Negative) Urine RBC (0-5) /hpf Urine WBC (0-5) /hpf Urine Bacteria (None) /hpf Urine Mucus (None) /hpf 05/14/20 05/14/20 Range/Units 06:09 07:12 WBC (3.8-10.6) k/uL RBC (4.30-5.90) m/uL Hgb (13.0-17.5) gm/dL Hct (39.0-53.0) % Plt Count (150-450) k/uL Lymphocytes # (1.0-4.8) k/uL Sodium 134 L (137-145) mmol/L Chloride 112 H (98-107) mmol/L Carbon Dioxide 16 L (22-30) mmol/L BUN 39 H (9-20) mg/dL Creatinine 1.31 H (0.66-1.25) mg/dL Glucose 128 H (74-99) mg/dL POC Glucose (mg/dL) 134 H (75-99) mg/dL Calcium 5.7 L* (8.4-10.2) mg/dL Magnesium (1.6-2.3) mg/dL AST (17-59) U/L ALT 60 H (4-49) U/L Total Protein 4.9 L (6.3-8.2) g/dL Albumin 2.5 L (3.5-5.0) g/dL Amylase (30-110) U/L Urine Protein (Negative) Urine Glucose (UA) (Negative) Urine Blood (Negative) Ur Leukocyte Esterase (Negative) Urine RBC (0-5) /hpf Urine WBC (0-5) /hpf Urine Bacteria (None) /hpf Urine Mucus (None) /hpf Microbiology - Last 24 Hours (Table) 07/23/20 17:27 Urine Culture - Preliminary Urine,Clean Catch Assessment and Plan Plan: The patient is a 69-year-old male with a history of a stage II (cT2, cN0, M0) 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 He is status post TURBT, and initiated chemoradiation. He has completed planned radiotherapy treatments. 1. Diarrhea/dehydration: Likely secondary to combination of chemo + radiation. Improving per patient. Will hold RT until sunday. The findings of non-s pecific cystitis/proctitis on his CT are consistent with ongoing treatment change. Cdif negative. Cr improving. 2. Bladder cancer: Patient has now finished chemotherapy portion of his treatment; will complete radiation as planned. We have made adjustments to the plan in an effort to exclude more bowel due to his toxicity. Time with Patient: Less than 30
--- NOTE | 2020-05-14 11:49 | CONS ---
CONSULTATION REASON FOR CONSULT: Renal failure. HISTORY OF PRESENT ILLNESS: The patient is a 69-year-old male who was admitted to the hospital with complaints of nausea, vomiting and diarrhea. Symptoms have improved. The patient denies any prior history of kidney diseases. He has a prior history of diabetes, hypertension, and coronary artery disease, history of bladder cancer, status post chemotherapy and radiation therapy under care of Dr. Banda. Patient's serum creatinine was 2.49 on admission. He is maintained on IV fluids and creatinine is down to 1.3 now. He recently had chemotherapy just prior to admission. No history of use of NSAIDs. The patient was on HEDY inhibitors prior to admission. His blood pressures have not been significantly low. PAST MEDICAL HISTORY: Bladder cancer, maintained on chemotherapy and radiation therapy, hypertension, vitamin D deficiency, coronary artery disease, COPD, type 2 diabetes, hypertension, history of NC, history of polio and bladder cancer. PAST SURGICAL HISTORY: Cardiac catheterization, coronary stent placement, right leg surgery, closure of patent urachus, bladder tumor removal. SOCIAL HISTORY: Patient is a former smoker. No history of drug abuse or alcohol abuse. MEDICATIONS: Prior to admission included lisinopril, cisplatin, vitamin D, vitamin B12, iron, Lipitor, aspirin, Plavix, insulin, metformin. ALLERGIES: None. REVIEW OF SYSTEMS: As per HPI. Other systems negative. PHYSICAL EXAMINATION: Patient is comfortable, awake, alert, oriented x3, not in any acute distress. Blood pressure is 120/63, heart rate 74 per minute, he is afebrile. Examination of the heart S1, S2. Examination of the lungs, bilateral breath sounds are heard. Abdomen is soft, nontender. Examination of the lower extremities shows no evidence of edema. RF TEST TECHNICIAN exam grossly intact. LABS: Show sodium 134, potassium 4.5, chloride 112, CO2 is 16, BUN 39, creatinine 1.3, calcium 5.7, albumin 2.5, hemoglobin 8.6 g/dL. ASSESSMENT: 1. Acute kidney injury prerenal, currently improved. 2. Non-gap metabolic acidosis secondary to renal failure, currently improving. I will add oral sodium bicarb. 3. Hypertension controlled, may continue with the HEDY inhibitors. 4. Bladder cancer, started on chemotherapy, being followed by Dr. Banda. 5. Nausea, vomiting, diarrhea, possibly related to recent chemotherapy. 6. Metabolic acidosis secondary to diarrhea and renal failure. 7. Anemia, multifactorial. PLAN: Add oral sodium bicarb, continue IV fluids, repeat labs in a.m. Continue to avoid nephrotoxic agents. Thank you for this consultation. Will continue to follow the patient with you during his hospitalization. HUONG / DELMERN: [id number] /
[2020-05-14 12:12] LABS: Glucose,Whole Blood 205 mg/dL (75-99)
[2020-05-14] MEDS: SODIUM BICARBONATE TAB 650 MG TAB PO SCH ×2 (12:54→21:11)
[2020-05-14 14:52] VITALS: BMI 24.3
--- NOTE | 2020-05-14 15:06 | P.CONS ---
History of Present Illness - Reason for Consult Consult date: 05/13/20 Urolthelial Carcinoma Requesting physician: Dorothea Mccarthy - Chief Complaint Diarrhea - History of Present Illness Wade presented with gross Hematuria following start of Plavix after PTCA and coronary stents placement by Dr Pennington in Aug 2019. He was referred to Dr Lucia mckeon nd had cystoscopy on 12/15/19 revealing high-grade urothelial carcinoma. 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 CT Scan of CAP did not identify systemic disease or gross pelvic lymphadenopathy. He was Re-evaluated by Dr Rosado and Dr Beltrán, given option of radical cystectomy V/S concurrent Radiation therapy/Chemotherapy, which he opted for, thus was evaluated by Dr Juarez (Rad/Onc) and is being seen to plan Chemotherapy. He denies any hematuria at present, reported being active, uses a sandoval for balance due to shortened L leg following childhood Polio. He smoked 1 PPD X 40 years and consumed 1-2 drinks/day, quit smoking/drinking in Jun 2019. 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 Last Myocardial Infarction Date:: 07/23/19 History of Any Multi-Drug Resistant Organisms: None Reported Past Surgical History: Heart Catheterization With Stent, Orthopedic Surgery Additional Past Surgical History / Comment(s): Cystoscopy, TURBT x2, closure of patent urachus bladder tumor as infant, R leg surgery d/t polio-lengthening Past Anesthesia/Blood Transfusion Reactions: No Reported Reaction Date of Last Stent Placement:: 07/23/19 Smoking Status: Former smoker - Past Family History Father History Unknown: Yes Mother Additional Family Medical History / Comment(s): Mother of in a MVA when pt was 15 yrs old. Brother(s) Additional Family Medical History / Comment(s): Pt has one brother who of a bowel problem and another brother that of a ruptured aneurysm. Medications and Allergies Home Medications Medication Instructions Recorded Confirmed Type Aspirin 81 mg PO DAILY #90 chewable 07/25/19 05/13/20 Rx Clopidogrel [Plavix] 75 mg PO DAILY #90 tablet 07/25/19 05/13/20 Rx Nitroglycerin Sl Tabs [Nitrostat] 0.4 mg SUBLINGUAL Q5M PRN #100 tab 07/25/19 05/13/20 Rx Insulin Glargine,Hum.rec.anlog 12 unit SQ HS 30 Days #1 ml 09/12/19 05/13/20 Rx [Lantus Solostar] metFORMIN HCL [metFORMIN HCL ER] 500 mg PO BID #60 tab 09/12/19 05/13/20 Rx lisinopriL 40 mg PO HS 12/16/19 05/13/20 History Atorvastatin [Lipitor] 80 mg PO DAILY 05/13/20 05/13/20 History CISplatin [Cisplatin] 50 mg IV DIRECTED 05/13/20 05/13/20 History Cholecalciferol [Vitamin D3 (25 5,000 unit PO DAILY 05/13/20 05/13/20 History Mcg = 1000 Iu)] Cyanocobalamin [Vitamin B-12] 500 mcg PO DAILY 05/13/20 05/13/20 History Diphenox-Atrop 2.5-0.025 mg 1 tab PO BID PRN 05/13/20 05/13/20 History [Lomotil] Ferrous Sulfate [Feosol] 325 mg PO DAILY 05/13/20 05/13/20 History Allergies Allergy/AdvReac Type Severity Reaction Status Date / Time No Known Allergies Allergy Verified 05/13/20 09:35 Physical Exam Vitals: Vital Signs Temp Pulse Pulse Resp BP BP Pulse Ox 05/13/20 15:42 98.6 F 76 16 138/58 98 05/13/20 14:21 82 16 147/59 98 05/13/20 13:02 82 16 127/61 97 05/13/20 12:17 92 18 148/57 96 05/13/20 11:18 81 18 140/51 97 05/13/20 10:30 18 125/55 97 05/13/20 09:49 18 106/51 07/23/20 09:30 98.2 F 91 18 88/50 98 Intake and Output 05/13/20 05/13/20 05/13/20 06:59 14:59 22:59 Other: Voiding Method Toilet Urinal Weight 72.575 kg - Constitutional General appearance: cooperative, no acute distress - EENT Eyes: EOMI, PERRLA ENT: NA/AT, normal oropharynx - Neck Neck: normal ROM - Respiratory Respiratory: bilateral: CTA (no increased effort ) - Cardiovascular Rhythm: regular Heart sounds: normal: S1, S2 leg Peripheral Edema: bilateral: Trace - Gastrointestinal General gastrointestinal: soft, tenderness - Integumentary Integumentary: pale - Neurologic non-focal - Musculoskeletal Musculoskeletal: generalized weakness, strength equal bilaterally - Psychiatric Psychiatric: A&O x's 3, appropriate affect, intact judgment & insight Results CBC & Chem 7: 05/14/20 06:09 05/14/20 06:09 Labs: Abnormal Lab Results - Last 24 Hours (Table) 05/13/20 05/13/20 05/13/20 Range/Units 10:48 10:48 13:16 WBC 3.6 L (3.8-10.6) k/uL RBC 3.17 L (4.30-5.90) m/uL Hgb 10.4 L (13.0-17.5) gm/dL Hct 30.9 L (39.0-53.0) % Plt Count 110 L (150-450) k/uL Lymphocytes # 0.3 L (1.0-4.8) k/uL Sodium 134 L (137-145) mmol/L Carbon Dioxide 14 L (22-30) mmol/L BUN 62 H (9-20) mg/dL Creatinine 2.49 H (0.66-1.25) mg/dL Glucose 266 H (74-99) mg/dL Calcium 6.1 L* (8.4-10.2) mg/dL Magnesium 1.0 L (1.6-2.3) mg/dL AST 64 H (17-59) U/L ALT 61 H (4-49) U/L Total Protein 5.9 L (6.3-8.2) g/dL Albumin 3.2 L (3.5-5.0) g/dL Amylase <30 L (30-110) U/L Urine Protein 2+ H (Negative) Urine Glucose (UA) 3+ H (Negative) Urine Blood Small H (Negative) Ur Leukocyte Esterase Small H (Negative) Urine RBC 7 H (0-5) /hpf Urine WBC 33 H (0-5) /hpf Urine Bacteria Rare H (None) /hpf Urine Mucus Rare H (None) /hpf Chest x-ray: report reviewed Assessment and Plan (1) Acute renal insufficiency Current Visit: Yes Status: Acute Code(s): N28.9 - DISORDER OF KIDNEY AND URETER, UNSPECIFIED SNOMED Code(s): 639537984 (2) Bladder cancer Current Visit: Yes Status: Acute Code(s): C67.9 - MALIGNANT NEOPLASM OF BLADDER, UNSPECIFIED SNOMED Code(s): 066285815 (3) Chemotherapy induced diarrhea Current Visit: Yes Status: Acute Code(s): K52.1 - TOXIC GASTROENTERITIS AND COLITIS; T45.1X5A - ADVERSE EFFECT OF ANTINEOPLASTIC AND IMMUNOSUP DRUGS, INIT SNOMED Code(s): 995661249 (4) Dehydration Current Visit: Yes Status: Acute Code(s): E86.0 - DEHYDRATION SNOMED Code(s): 66696657 Plan: Urothelial Cancer: - We are status post one cycle of chemotherapy and approx 3 weeks of radiation, will confirm with Dr. Juarez. - Hold chemotherapy and radiation for acute side effects, will discuss changes to dose and targeted therapy with primary medical oncologist. Intractable Diarrhea: - Likely related to combination chemo and radiation - Stool studies - Supportive care - Abdominal imaging - Questron and Anti-diarrheas after studies obtained Acute Renal Insufficiency: - Secondary to diarrhea and dehydration - IV hydration - Electrolyte monitoring and supplementation - WIll have nephrology evaluate Normocytic Anemia: - Secondary to malignancy and chemotherapy - Check Iron studies with recent history of hematuria.
--- NOTE | 2020-05-14 15:08 | P.PN ---
Subjective Progress Note Date: 05/14/20 Principal diagnosis: Diarrhea on treatment for Bladder Ca improved today, still loose stools Objective - Vital Signs Vital signs: Vital Signs Temp 97.8 F 05/14/20 12:42 Pulse 71 05/14/20 12:42 Resp 19 05/14/20 12:42 BP 146/52 05/14/20 12:42 Pulse Ox 98 05/14/20 12:42 Intake & Output 05/13/20 05/14/20 05/14/20 18:59 06:59 18:59 Intake Total 2250 1050 Output Total 760 Balance 1490 1050 Weight 72.575 kg 72.575 kg Intake: Intake, IV Titration 700 200 Amount Calcium Gluconate 1 gm In 100 Sodium Chloride 0.9% 100 ml @ 100 mls/hr IVPB ONCE ONE Rx#:[id number] Cefepime 2 gm In Sodium 100 100 Chloride 0.9% 100 ml @ 200 mls/hr IVPB Q8HR [facility] Rx#:[id number] Magnesium Sulfate-D5w Pmx 200 1 gm In Dextrose/Water 1 100ml.bag @ 100 mls/hr IVPB Q1H [facility] Rx#: [id number] Sodium Chloride 0.9% 1, 400 000 ml @ 100 mls/hr IV . Q10H [facility] Rx#:[id number] Oral 1550 850 Output: Urine 700 Stool 60 Other: Voiding Method Toilet Toilet Toilet Urinal Urinal Urinal # Voids 3 - Exam - Constitutional General appearance: cooperative, no acute distress - EENT Eyes: EOMI, PERRLA ENT: NA/AT, normal oropharynx - Neck Neck: normal ROM - Respiratory Respiratory: bilateral: CTA (no increased effort ) - Cardiovascular Rhythm: regular Heart sounds: normal: S1, S2 leg Peripheral Edema: bilateral: Trace - Gastrointestinal General gastrointestinal: soft, tenderness - Integumentary Integumentary: pale - Neurologic non-focal - Musculoskeletal Musculoskeletal: generalized weakness, strength equal bilaterally - Psychiatric Psychiatric: A&O x's 3, appropriate affect, intact judgment & insight - Labs CBC & Chem 7: 05/14/20 06:09 05/14/20 06:09 Labs: Abnormal Lab Results - Last 24 Hours (Table) 05/13/20 05/13/20 05/13/20 Range/Units 16:45 17:08 19:41 WBC (3.8-10.6) k/uL RBC (4.30-5.90) m/uL Hgb (13.0-17.5) gm/dL Hct (39.0-53.0) % Plt Count (150-450) k/uL Lymphocytes # (1.0-4.8) k/uL Sodium (137-145) mmol/L Chloride (98-107) mmol/L Carbon Dioxide (22-30) mmol/L BUN (9-20) mg/dL Creatinine (0.66-1.25) mg/dL Glucose (74-99) mg/dL POC Glucose (mg/dL) 245 H 237 H (75-99) mg/dL Calcium (8.4-10.2) mg/dL ALT (4-49) U/L Total Protein (6.3-8.2) g/dL Albumin (3.5-5.0) g/dL Stool Lactoferrin POSITIVE H (NEGATIVE) 05/14/20 05/14/20 05/14/20 Range/Units 06:09 06:09 07:12 WBC 2.0 L (3.8-10.6) k/uL RBC 2.73 L (4.30-5.90) m/uL Hgb 8.6 L D (13.0-17.5) gm/dL Hct 25.9 L (39.0-53.0) % Plt Count 85 L (150-450) k/uL Lymphocytes # 0.3 L (1.0-4.8) k/uL Sodium 134 L (137-145) mmol/L Chloride 112 H (98-107) mmol/L Carbon Dioxide 16 L (22-30) mmol/L BUN 39 H (9-20) mg/dL Creatinine 1.31 H (0.66-1.25) mg/dL Glucose 128 H (74-99) mg/dL POC Glucose (mg/dL) 134 H (75-99) mg/dL Calcium 5.7 L* (8.4-10.2) mg/dL ALT 60 H (4-49) U/L Total Protein 4.9 L (6.3-8.2) g/dL Albumin 2.5 L (3.5-5.0) g/dL Stool Lactoferrin (NEGATIVE) 05/14/20 Range/Units 11:55 WBC (3.8-10.6) k/uL RBC (4.30-5.90) m/uL Hgb (13.0-17.5) gm/dL Hct (39.0-53.0) % Plt Count (150-450) k/uL Lymphocytes # (1.0-4.8) k/uL Sodium (137-145) mmol/L Chloride (98-107) mmol/L Carbon Dioxide (22-30) mmol/L BUN (9-20) mg/dL Creatinine (0.66-1.25) mg/dL Glucose (74-99) mg/dL POC Glucose (mg/dL) 205 H (75-99) mg/dL Calcium (8.4-10.2) mg/dL ALT (4-49) U/L Total Protein (6.3-8.2) g/dL Albumin (3.5-5.0) g/dL Stool Lactoferrin (NEGATIVE) Microbiology - Last 24 Hours (Table) 05/13/20 10:48 Blood Culture - Preliminary Blood No Growth after 24 hours 05/13/20 17:27 Urine Culture - Preliminary Urine,Clean Catch Assessment and Plan (1) Acute renal insufficiency Current Visit: Yes Status: Acute Code(s): N28.9 - DISORDER OF KIDNEY AND URETER, UNSPECIFIED SNOMED Code(s): 999004800 (2) Bladder cancer Current Visit: Yes Status: Acute Code(s): C67.9 - MALIGNANT NEOPLASM OF BLADDER, UNSPECIFIED SNOMED Code(s): 161136562 (3) Chemotherapy induced diarrhea Current Visit: Yes Status: Acute Code(s): K52.1 - TOXIC GASTROENTERITIS AND COLITIS; T45.1X5A - ADVERSE EFFECT OF ANTINEOPLASTIC AND IMMUNOSUP DRUGS, INIT SNOMED Code(s): 391507146 (4) Dehydration Current Visit: Yes Status: Acute Code(s): E86.0 - DEHYDRATION SNOMED Code(s): 54164250 Plan: Urothelial Cancer: - We are status post one cycle of chemotherapy and approx 3 weeks of radiation, will confirm with Dr. Juarez. - Hold chemotherapy and radiation for acute side effects, will discuss changes to dose and targeted therapy with primary medical oncologist. Intractable Diarrhea: - Likely related to combination chemo and radiation - Stool studies - Supportive care - Abdominal imaging - Questron and Anti-diarrheas after studies obtained Acute Renal Insufficiency: - Secondary to diarrhea and dehydration - IV hydration - Electrolyte monitoring and supplementation - WIll have nephrology evaluate Normocytic Anemia: - Secondary to malignancy and chemotherapy - Anemia work-up stable, no supplementation required - If hemoglobin less than 7 transfuse Hypocalcemia: - Supped per primary team - Recheck ionized Ca in am Hypomagnesia: - Supped and recheck in am Physician Attest: I have completed the full history and physical and agree with above dictation, dictated as a scribe.
--- NOTE | 2020-05-14 16:31 | PN ---
PROGRESS NOTE DATE OF SERVICE: 05/14/2020 This 69-year-old gentleman with a past medical history of multiple medical problems was admitted with dehydration and diarrhea as well as abdominal pain. The CT scan of the abdomen and pelvis was reviewed, which showed rectal wall thickening suggestive of colitis. Patient is being closely monitored. Creatinine is 1.31, down from 2.49 yesterday. Calcium is 5.7. Multiple consultants are following the patient closely. Past medical history reviewed. REVIEW OF SYSTEMS: CARDIOVASCULAR SYSTEM: No angina, palpitations. RESPIRATORY SYSTEM: As mentioned earlier. GI: As mentioned earlier. : No dysuria or retention. NERVOUS SYSTEM: No numbness, weakness. CURRENT MEDICATIONS: Reviewed. They include: 1. Tylenol. 2. Xanax 0.25 t.i.d. 3. Aspirin 81 mg. 4. Lipitor 80 mg daily. 5. Cefepime 2 grams IV q.8. 6. Vitamin D3. 7. Questran. 8. Plavix. 9. Vitamin B12. 10.Lomotil. 11.Heparin. 12.Dilaudid. 13.Levemir. 14.Toradol. 15.Zestril. 16.Narcan. 17.Zofran. 18.Protonix. 19.Restoril. PHYSICAL EXAMINATION: Patient is alert, oriented x3. Pulse is 74, blood pressure 120/60, respirations 16, temperature 98.1, pulse ox 96% on room air. HEENT: Conjunctivae normal. NECK: No jugular venous distention. CARDIOVASCULAR SYSTEM: S1, S2 muffled. RESPIRATORY SYSTEM: Breath sounds diminished at the bases. A few rhonchi. No crackles. ABDOMEN: Soft, non-tender. LEGS: No edema. No swelling. NERVOUS SYSTEM: No focal deficit. LABS: WBC 2, hemoglobin 8.6, platelets 85. Sodium 134. Other labs are noted. ASSESSMENT: 1. Diarrhea and dehydration, possibly chemotherapy-induced. Possible acute colitis. 2. Possible sepsis. 3. Acute renal failure, possibly acute prerenal acute tubular necrosis secondary to dehydration. 4. Acidosis, metabolic, secondary to acute renal failure. 5. Hyponatremia. 6. Hypocalcemia. 7. Neutropenia. 8. Anemia. 9. Thrombocytopenia. 10.Mild pancytopenia secondary to chemotherapy. 11.Increased AST, ALT. 12.History of mild hepatitis. 13.Hypomagnesemia. 14.Hypoalbuminemia with mild protein-calorie malnutrition. 15.Possible acute urinary tract infection, present on admission. 16.History of coronary artery disease. 17.Diabetes mellitus, type 2. 18.Hypertension. 19.History of myocardial infarction. 20.History of stage II bladder cancer with poorly differentiated papillary urothelial cancer, on chemo radiation. 22.Remote history of nicotine dependence. 23.FULL CODE. RECOMMENDATIONS AND DISCUSSION: I recommend to continue current medications, continue with the monitoring, symptomatic treatment. Continue with empiric antibiotics. Closely follow with multiple consultants. Follow the cultures. Monitor electrolytes and replace them. Creatinine is slightly improved, but prognosis is guarded. Further recommendations to follow. MMODL / IJN: [id number] / MATTHEW
[2020-05-14 16:44] LABS: Folate, Serum 6.5 ng/mL
[2020-05-14 16:48] LABS: % Iron Saturation 24.24 (15.00-50.00); Ferritin 555.2 ng/mL (22.0-322.0)
[2020-05-14 17:01] LABS: Glucose,Whole Blood 181 mg/dL (75-99)
[2020-05-14 20:25] LABS: Glucose,Whole Blood 234 mg/dL (75-99)
[2020-05-14] MEDS: INSULIN DETEMIR (LEVEMIR) 100 UNIT/ML SYR SQ SCH (21:11)
[2020-05-14] MEDS: INSULIN ASPART (NovoLOG) 100 UNIT/ML VIAL SQ SCH (21:11)
[2020-05-14] MEDS: lisinopriL 20 MG TAB PO SCH (21:11)
[2020-05-15 07:11] LABS: Glucose,Whole Blood 105 mg/dL (75-99)
[2020-05-15] MEDS: INSULIN ASPART (NovoLOG) 100 UNIT/ML VIAL SQ SCH ×4 (07:53→21:45)
[2020-05-15 08:10] LABS: Ionized Calcium 4.2 mg/dL (4.5-5.3)
[2020-05-15 08:14] LABS: Basophils % (A) 0 %; Eosinophils % (A) 2 %; HCT 26.3 % (39.0-53.0); HGB 9.2 gm/dL (13.0-17.5); Lymphocytes # (A) 0.3 k/uL (1.0-4.8); Lymphocytes % (A) 14 %; MCHC 34.8 g/dL (31.0-37.0); MCV 94.8 fL (80.0-100.0); Mean Platelet Volume 10.5; Monocytes # (A) 0.2 k/uL (0-1.0); Monocytes % (A) 9 %; Neutrophils # (A) 1.5 k/uL (1.3-7.7); Neutrophils % (A) 71 %; RBC 2.78 m/uL (4.30-5.90); RDW 14.6 % (11.5-15.5); WBC 2.1 k/uL (3.8-10.6)
[2020-05-15 08:15] LABS: Albumin 2.6 g/dL (3.5-5.0); Phosphorus 2.5 mg/dL (2.5-4.5); Potassium 4.2 mmol/L (3.5-5.1); Total Bilirubin 0.5 mg/dL (0.2-1.3); Total Protein 5.1 g/dL (6.3-8.2)
[2020-05-15 08:29] LABS: Platelet Count 86 k/uL (150-450)
[2020-05-15 08:33] LABS: Calcium 6.4 mg/dL (8.4-10.2)
[2020-05-15] MEDS: ASPIRIN 81 MG PO SCH (08:54)
[2020-05-15] MEDS: CLOPIDOGREL 75 MG TAB PO SCH (08:54)
[2020-05-15] MEDS: CYANOCOBALAMIN 500 MCG TAB PO SCH (08:54)
[2020-05-15] MEDS: CHOLECALCIFEROL 1,000 UNIT TAB PO SCH (08:54)
[2020-05-15] MEDS: CHOLESTYRAMINE (WITH SUGAR) 4 GM PACKET PO SCH ×3 (08:55→17:30)
[2020-05-15] MEDS: SODIUM BICARBONATE TAB 650 MG TAB PO SCH ×2 (08:55→21:45)
[2020-05-15] MEDS: HEPARIN SODIUM,PORCINE 5,000 UNIT/ML 1 ML VIAL SQ SCH ×2 (08:55→21:45)
[2020-05-15] MEDS: ATORVASTATIN 80 MG TAB PO SCH (08:55)
[2020-05-15] MEDS: PANTOPRAZOLE 40 MG/10 ML VIAL IV SCH (08:55)
[2020-05-15] MEDS: CEFEPIME 2 GM in SODIUM CHLORIDE 0.9% 100 ML IVPB SCH ×3 (09:00→23:56)
[2020-05-15] MEDS ORDERED: CALCIUM CHLORIDE 100 MG/ML 10 ML SYRINGE IVP ONE (09:15)
--- NOTE | 2020-05-15 10:38 | P.PN ---
Subjective Progress Note Date: 05/15/20 The patient reports feeling better. He has not had any bowel movements today. Diarrhea had improved significantly even yesterday. No mouth sores at present. No fever/chills/nausea/vomiting. Appetite is somewhat improved Objective - Vital Signs Vital signs: Vital Signs Temp 98.9 F 05/15/20 05:49 Pulse 70 05/15/20 05:49 Resp 18 05/15/20 05:49 BP 162/69 05/15/20 05:49 Pulse Ox 96 05/15/20 05:49 Intake & Output 05/14/20 05/15/20 05/15/20 18:59 06:59 18:59 Intake Total 1050 100 Output Total 460 925 Balance 590 -825 Weight 72.575 kg Intake: Intake, IV Titration 200 100 Amount Calcium Gluconate 1 gm In 100 Sodium Chloride 0.9% 100 ml @ 100 mls/hr IVPB ONCE ONE Rx#:[id number] Cefepime 2 gm In Sodium 100 100 Chloride 0.9% 100 ml @ 200 mls/hr IVPB Q8HR [facility] Rx#:[id number] Oral 850 Output: Urine 400 925 Stool 60 Other: Voiding Method Toilet Toilet Urinal Urinal # Voids 3 1 - Constitutional General appearance: Present: no acute distress - EENT Eyes: Present: EOMI ENT: Present: hearing grossly normal, normal oropharynx - Respiratory Respiratory: bilateral: CTA - Cardiovascular Rhythm: regular Heart sounds: normal: S1, S2 - Gastrointestinal General gastrointestinal: Present: normal bowel sounds, soft - Integumentary Integumentary: Present: normal - Neurologic Neurologic: Present: CNII-XII intact - Musculoskeletal Musculoskeletal: Present: generalized weakness, strength equal bilaterally - Psychiatric Psychiatric: Present: A&O x's 3 - Labs CBC & Chem 7: 05/15/20 07:49 05/15/20 07:49 Labs: Abnormal Lab Results - Last 24 Hours (Table) 05/13/20 05/14/20 05/14/20 Range/Units 16:45 06:09 11:55 WBC (3.8-10.6) k/uL RBC (4.30-5.90) m/uL Hgb (13.0-17.5) gm/dL Hct (39.0-53.0) % Plt Count (150-450) k/uL Lymphocytes # (1.0-4.8) k/uL Chloride (98-107) mmol/L Carbon Dioxide (22-30) mmol/L POC Glucose (mg/dL) 205 H (75-99) mg/dL Calcium (8.4-10.2) mg/dL Ionized Calcium Buddy (4.5-5.3) mg/dL Iron 40 L (65-175) ug/dL TIBC 165 L (228-460) ug/dL Ferritin 555.2 H (22.0-322.0) ng/mL ALT (4-49) U/L Total Protein (6.3-8.2) g/dL Albumin (3.5-5.0) g/dL Vitamin B12 1019.0 H (200.0-944.0) pg/mL Stool Lactoferrin POSITIVE H (NEGATIVE) 05/14/20 05/14/20 05/15/20 Range/Units 16:53 20:20 07:09 WBC (3.8-10.6) k/uL RBC (4.30-5.90) m/uL Hgb (13.0-17.5) gm/dL Hct (39.0-53.0) % Plt Count (150-450) k/uL Lymphocytes # (1.0-4.8) k/uL Chloride (98-107) mmol/L Carbon Dioxide (22-30) mmol/L POC Glucose (mg/dL) 181 H 234 H 105 H (75-99) mg/dL Calcium (8.4-10.2) mg/dL Ionized Calcium Buddy (4.5-5.3) mg/dL Iron (65-175) ug/dL TIBC (228-460) ug/dL Ferritin (22.0-322.0) ng/mL ALT (4-49) U/L Total Protein (6.3-8.2) g/dL Albumin (3.5-5.0) g/dL Vitamin B12 (200.0-944.0) pg/mL Stool Lactoferrin (NEGATIVE) 05/15/20 05/15/20 Range/Units 07:49 07:49 WBC 2.1 L (3.8-10.6) k/uL RBC 2.78 L (4.30-5.90) m/uL Hgb 9.2 L (13.0-17.5) gm/dL Hct 26.3 L (39.0-53.0) % Plt Count 86 L (150-450) k/uL Lymphocytes # 0.3 L (1.0-4.8) k/uL Chloride 114 H (98-107) mmol/L Carbon Dioxide 18 L (22-30) mmol/L POC Glucose (mg/dL) (75-99) mg/dL Calcium 6.4 L* (8.4-10.2) mg/dL Ionized Calcium Buddy 4.2 L (4.5-5.3) mg/dL Iron (65-175) ug/dL TIBC (228-460) ug/dL Ferritin (22.0-322.0) ng/mL ALT 52 H (4-49) U/L Total Protein 5.1 L (6.3-8.2) g/dL Albumin 2.6 L (3.5-5.0) g/dL Vitamin B12 (200.0-944.0) pg/mL Stool Lactoferrin (NEGATIVE) Microbiology - Last 24 Hours (Table) 05/13/20 17:27 Urine Culture - Final Urine,Clean Catch 05/13/20 10:48 Blood Culture - Preliminary Blood No Growth after 24 hours Assessment and Plan (1) Dehydration Narrative/Plan: Improvement with decrease in diarrhea and IV hydration. Creatinine is improved Current Visit: Yes Status: Acute Code(s): E86.0 - DEHYDRATION SNOMED Code(s): 30531967 (2) Hypocalcemia Narrative/Plan: Still present, but improved with decreasing diarrhea. Continue to supplement as needed Current Visit: Yes Status: Acute Code(s): E83.51 - HYPOCALCEMIA SNOMED Code(s): 0059916 (3) Hypomagnesemia Narrative/Plan: Also due to diarrhea and chemotherapy effect. This is improved. Current Visit: Yes Status: Acute Code(s): E83.42 - HYPOMAGNESEMIA SNOMED Code(s): 711339637 (4) Bladder cancer Narrative/Plan: Diagnostic and therapeutic circumstances as related in the initial consult. Treatment currently on hold until acute situation results. Current Visit: Yes Status: Acute Code(s): C67.9 - MALIGNANT NEOPLASM OF BLADDER, UNSPECIFIED SNOMED Code(s): 116102307 (5) Chemotherapy induced diarrhea Narrative/Plan: Infection workup was negative. Diarrhea significantly improved. Will need aggressive supportive care once treatment resumes. Current Visit: Yes Status: Acute Code(s): K52.1 - TOXIC GASTROENTERITIS AND COLITIS; T45.1X5A - ADVERSE EFFECT OF ANTINEOPLASTIC AND IMMUNOSUP DRUGS, INIT SNOMED Code(s): 698899317 (6) Pancytopenia due to chemotherapy Narrative/Plan: All counts are in a safe range. Continue to monitor. Transfuse if needed to keep hemoglobin greater than 7 and platelets greater than 10. The patient has progressive decline in WBC to ANC less than 1000, especially with any signs of infection, we'll also use G-CSF. Current Visit: Yes Status: Acute Code(s): D61.810 - ANTINEOPLASTIC CHEMOTHERAPY INDUCED PANCYTOPENIA SNOMED Code(s): 2996980
--- NOTE | 2020-05-15 11:08 | PN ---
PROGRESS NOTE DATE OF SERVICE: 05/15/2020 This 69-year-old gentleman admitted with diarrhea after chemotherapy is being closely monitored. No chest pain. No palpitations. No fever. PHYSICAL EXAMINATION: Alert and oriented x3. Pulse 70, blood pressure 162/69, respiration 18, temp 98.9. HEENT: Conjunctivae normal. Oral mucosa moist. NECK: No jugular venous distention. No lymph node enlargement. CARDIOVASCULAR: S1, S2, muffled. No S3, no S4, RESPIRATORY: Diminished breath sounds at the bases. No rhonchi, no crackles. ABDOMEN: Soft. LEGS: No edema, no swelling. NERVOUS SYSTEM: No focal motor or sensory deficits. LAB STUDIES: WBC 2.2, hemoglobin 9.2, and calcium 6.4. Cultures are pending. ASSESSMENT: 1. Diarrhea and dehydration, possibly chemotherapy induced, possible acute colitis. 2. Possible sepsis. 3. Acute renal failure, possibly acute tubular necrosis secondary to dehydration. 4. Acidosis metabolic secondary to acute renal failure. 5. Hyponatremia. 6. Hypocalcemia. 7. Neutropenia. 8. Anemia. 9. Thrombocytopenia. 10.Mild pancytopenia secondary to chemotherapy. 11.Increased AST, ALT. 12.History of mild hepatitis. 13.Hypomagnesemia. 14.Hypoalbuminemia with mild protein-calorie malnutrition. 15.Possible acute urinary tract infection present on admission. 16.History of coronary artery disease. 17.Diabetes mellitus type 2. 18.Hypertension. 19.History of myocardial infarction. 20.History of stage II bladder cancer with poorly differentiated papillary urothelial cancer on chemo radiation. 21.Remote history of nicotine dependence. 22.FULL CODE. RECOMMENDATIONS AND DISCUSSION: I recommend to continue current medications, symptomatic treatment. Diarrhea appears to be subsiding with some mucousy diarrhea. Recommend increase the diet if tolerated. Discussed with staff. Further recommendations to follow. MMODL / IJN: [id number] /
[2020-05-15 11:18] LABS: Glucose,Whole Blood 170 mg/dL (75-99)
[2020-05-15] MEDS: SODIUM CHLORIDE 0.9% 1,000 ML IV SCH ×2 (12:33→23:56)
--- NOTE | 2020-05-15 13:29 | PN ---
PROGRESS NOTE Patient is seen for followup for acute kidney injury which was mainly prerenal, currently improved with IV hydration. Patient states his diarrhea has improved. He is tolerating liquid diet. PHYSICAL EXAMINATION: On examination, blood pressure is 169/72, heart rate 73 per minute, he is afebrile. Examination of the heart S1, S2. Examination of the lungs, bilateral breath sounds are heard. Abdomen is soft, nontender. Examination of lower extremities shows no evidence of edema. 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 LABS: Show sodium 137, potassium 4.2, chloride 114, CO2 is 18, BUN 19, creatinine 1.05. ASSESSMENT: 1. Acute kidney injury, prerenal, currently significantly improved. 2. Metabolic acidosis maintained on oral sodium bicarb. 3. Hypertension, currently improved. 4. Bladder cancer status post chemotherapy. PLAN: Encourage increased oral intake. May continue with oral sodium bicarb for now, maintain IV fluids until patient is discharged. Advance diet. I would avoid the use of Toradol given his acute kidney injury. MMODL / IJN: [id number] /
[2020-05-15 17:04] LABS: Glucose,Whole Blood 177 mg/dL (75-99)
[2020-05-15 20:28] LABS: Glucose,Whole Blood 249 mg/dL (75-99)
[2020-05-15] MEDS: CALCIUM CARBONATE 500 MG CHEWABLE PO SCH (21:45)
[2020-05-15] MEDS: lisinopriL 20 MG TAB PO SCH (21:45)
[2020-05-15] MEDS: INSULIN DETEMIR (LEVEMIR) 100 UNIT/ML SYR SQ SCH (21:46)
[2020-05-16 07:07] LABS: Glucose,Whole Blood 112 mg/dL (75-99)
[2020-05-16] MEDS: INSULIN ASPART (NovoLOG) 100 UNIT/ML VIAL SQ SCH ×4 (07:36→20:24)
[2020-05-16] MEDS: CEFEPIME 2 GM in SODIUM CHLORIDE 0.9% 100 ML IVPB SCH ×3 (08:03→23:36)
[2020-05-16] MEDS: CYANOCOBALAMIN 500 MCG TAB PO SCH (08:04)
[2020-05-16] MEDS: CLOPIDOGREL 75 MG TAB PO SCH (08:04)
[2020-05-16] MEDS: CALCIUM CARBONATE 500 MG CHEWABLE PO SCH ×2 (08:04→20:23)
[2020-05-16] MEDS: ASPIRIN 81 MG PO SCH (08:04)
[2020-05-16] MEDS: ATORVASTATIN 80 MG TAB PO SCH (08:04)
[2020-05-16] MEDS: CHOLECALCIFEROL 1,000 UNIT TAB PO SCH (08:04)
[2020-05-16] MEDS: HEPARIN SODIUM,PORCINE 5,000 UNIT/ML 1 ML VIAL SQ SCH ×2 (08:05→20:24)
[2020-05-16] MEDS: SODIUM BICARBONATE TAB 650 MG TAB PO SCH ×2 (08:05→20:22)
[2020-05-16] MEDS: PANTOPRAZOLE 40 MG/10 ML VIAL IV SCH (08:05)
[2020-05-16] MEDS: CHOLESTYRAMINE (WITH SUGAR) 4 GM PACKET PO SCH ×2 (08:11→17:31)
[2020-05-16 08:30] LABS: Albumin 2.6 g/dL (3.5-5.0); Calcium 6.8 mg/dL (8.4-10.2); Potassium 4.1 mmol/L (3.5-5.1); Total Bilirubin 0.5 mg/dL (0.2-1.3); Total Protein 5.1 g/dL (6.3-8.2)
[2020-05-16 08:32] LABS: Basophils % (A) 0 %; Eosinophils % (A) 2 %; HCT 27.1 % (39.0-53.0); HGB 9.2 gm/dL (13.0-17.5); Lymphocytes # (A) 0.3 k/uL (1.0-4.8); Lymphocytes % (A) 16 %; MCH 32.7 pg (25.0-35.0); MCHC 33.8 g/dL (31.0-37.0); MCV 96.6 fL (80.0-100.0); Mean Platelet Volume 10.4; Monocytes # (A) 0.2 k/uL (0-1.0); Monocytes % (A) 11 %; Neutrophils # (A) 1.5 k/uL (1.3-7.7); Neutrophils % (A) 68 %; RBC 2.81 m/uL (4.30-5.90); RDW 14.8 % (11.5-15.5); WBC 2.2 k/uL (3.8-10.6)
[2020-05-16 08:45] LABS: Platelet Count 91 k/uL (150-450)
[2020-05-16 11:36] LABS: Glucose,Whole Blood 239 mg/dL (75-99)
--- NOTE | 2020-05-16 14:37 | P.PN ---
Subjective Progress Note Date: 05/16/20 Principal diagnosis: This is a 69-year-old male who was recently admitted with diarrhea and was found to have hypomagnesemia along with hypocalcemia and is being closely monitored. Patient is currently active with oncology and sees Dr. Banda in the outpatient setting and has been receiving chemotherapy. Patient states his diarrhea has subsided and is tolerating diet with no reports of nausea or vomiting noted. Nephrology also following this patient has acute kidney injury and creatinine is 1.0 today. Patient is maintaining on sodium bicarbonate tablets along with nor mal saline and will continue at this time. Patient is also maintained on IV antibiotics in the form of cefepime for possible acute colitis and possible sepsis. Currently patient denies any chest pain, shortness of breath, or palpitations. Patient is afebrile. Objective - Vital Signs Vital signs: Vital Signs Temp 98.4 F 05/16/20 11:47 Pulse 82 05/16/20 11:47 Resp 17 05/16/20 11:47 BP 176/64 05/16/20 11:47 Pulse Ox 98 05/16/20 11:47 Intake & Output 05/15/20 05/16/20 05/16/20 18:59 06:59 18:59 Intake Total 200 1115 Output Total 1125 Balance 200 -10 Weight 72.575 kg Intake: Intake, IV Titration 100 825 Amount Cefepime 2 gm In Sodium 100 100 Chloride 0.9% 100 ml @ 200 mls/hr IVPB Q8HR [facility] Rx#:[id number] Sodium Chloride 0.9% 1, 725 000 ml @ 75 mls/hr IV . [id number] [facility] Rx#:[id number] Oral 100 290 Output: Urine 1125 Other: Voiding Method Toilet Toilet Toilet Urinal Urinal Urinal # Voids 1 # Bowel Movements 0 - Exam Gen: This is a 69-year-old male lying in bed, awake, alert and oriented 3, well-developed, well-nourished. HEENT: Head is atraumatic, normocephalic. Pupils equal, round. Sclerae is anicteric. NECK: Supple. No JVD. No lymphadenopathy. No thyromegaly. LUNGS: Diminished breath sounds bilaterally with no wheezing or rhonchi noted. No intercostal retractions. HEART: S1, S2 are muffled. ABDOMEN: Soft. Bowel sounds are present. No masses. No tenderness. EXTREMITIES: No pedal edema. No calf tenderness. NEUROLOGICAL: Patient is awake, alert and oriented x3. Cranial nerves 2 through 12 are grossly intact. - Labs CBC & Chem 7: 05/16/20 07:22 05/16/20 07:22 Labs: Abnormal Lab Results - Last 24 Hours (Table) 05/15/20 05/15/20 05/16/20 Range/Units 17:03 20:25 07:06 WBC (3.8-10.6) k/uL RBC (4.30-5.90) m/uL Hgb (13.0-17.5) gm/dL Hct (39.0-53.0) % Plt Count (150-450) k/uL Lymphocytes # (1.0-4.8) k/uL Chloride (98-107) mmol/L Carbon Dioxide (22-30) mmol/L Glucose (74-99) mg/dL POC Glucose (mg/dL) 177 H 249 H 112 H (75-99) mg/dL Calcium (8.4-10.2) mg/dL Total Protein (6.3-8.2) g/dL Albumin (3.5-5.0) g/dL 05/16/20 05/16/20 05/16/20 Range/Units 07:22 07:22 11:35 WBC 2.2 L (3.8-10.6) k/uL RBC 2.81 L (4.30-5.90) m/uL Hgb 9.2 L (13.0-17.5) gm/dL Hct 27.1 L (39.0-53.0) % Plt Count 91 L (150-450) k/uL Lymphocytes # 0.3 L (1.0-4.8) k/uL Chloride 112 H (98-107) mmol/L Carbon Dioxide 19 L (22-30) mmol/L Glucose 101 H (74-99) mg/dL POC Glucose (mg/dL) 239 H (75-99) mg/dL Calcium 6.8 L (8.4-10.2) mg/dL Total Protein 5.1 L (6.3-8.2) g/dL Albumin 2.6 L (3.5-5.0) g/dL Microbiology - Last 24 Hours (Table) 05/13/20 10:48 Blood Culture - Preliminary Blood No Growth after 72 hours Assessment and Plan Assessment: Diarrhea and dehydration, possibly chemotherapy-induced, possible acute colitis Possible sepsis Acute renal failure, possibly acute tubular necrosis secondary to dehydration and diarrhea Acidosis metabolic secondary to acute renal failure Hyponatremia Hypocalcemia Neutropenia anemia Thrombocytopenia Mild pancytopenia secondary to chemotherapy Increased ALT, AST History of mild hepatitis Hypoalbuminemia with mild protein calorie malnutrition Possible acute urinary tract infection, present on admission History of coronary artery disease Hypertension History of myocardial infarction 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 Patient will maintain on IV antibiotics along with gentle IV hydration. Nephrology along with oncology following. Will repeat a.m. labs monitor kidney functions closely. Patient instructed to increase activity as tolerated. Further recommendations to follow.
--- NOTE | 2020-05-16 15:18 | PN ---
PROGRESS NOTE Patient is seen for followup for acute kidney injury which was mainly prerenal currently improved with IV fluids. Serum creatinine is down to 1.0 from 2.49 on initial admission. Diarrhea has improved significantly. PHYSICAL EXAMINATION: On examination, blood pressure was elevated at 169/67, heart rate 71 per minute, patient is afebrile. Examination shows patient is euvolemic. No evidence of edema in his lower extremities. LABS: Show sodium 137, potassium 4.1, chloride 112, CO2 is 19, BUN 15, creatinine 1.0, hemoglobin 9.2 g/dL. ASSESSMENT: 1. Acute kidney injury, prerenal, currently improved. 2. Diarrhea and decreased oral intake with nausea and vomiting post chemotherapy currently resolved. 3. Pyuria, maintained on antibiotics. Urine culture shows no growth. 4. Bladder cancer status post chemotherapy. 5. Metabolic acidosis, maintained on oral sodium bicarb. 6. Hypertension currently uncontrolled. PLAN: I will continue with the sodium bicarb. We can decrease the IV fluids and we should discontinue the Toradol as it is also exacerbating the hypertension. Patient is maintained on lisinopril. We can add Coreg as well since blood pressure remains elevated. MMODL / IJN: [id number] /
[2020-05-16] MEDS: SODIUM CHLORIDE 0.9% 1,000 ML IV SCH (15:43)
[2020-05-16 17:18] LABS: Glucose,Whole Blood 215 mg/dL (75-99)
[2020-05-16] MEDS: carvediloL 6.25 MG TAB PO SCH (17:37)
[2020-05-16 20:12] LABS: Glucose,Whole Blood 303 mg/dL (75-99)
[2020-05-16] MEDS: lisinopriL 20 MG TAB PO SCH (20:23)
[2020-05-16] MEDS: INSULIN DETEMIR (LEVEMIR) 100 UNIT/ML SYR SQ SCH (20:24)
[2020-05-17 06:08] VITALS: BP 167/67; PULSE 78; RESP 18; TEMP 98.2
[2020-05-17 07:08] LABS: Glucose,Whole Blood 157 mg/dL (75-99)
[2020-05-17] MEDS ORDERED: PANTOPRAZOLE 40 MG TABLET PO SCH (07:30)
[2020-05-17] MEDS: CEFEPIME 2 GM in SODIUM CHLORIDE 0.9% 100 ML IVPB SCH (08:17)
[2020-05-17] MEDS: carvediloL 6.25 MG TAB PO SCH (08:18)
[2020-05-17] MEDS: HEPARIN SODIUM,PORCINE 5,000 UNIT/ML 1 ML VIAL SQ SCH (08:18)
[2020-05-17] MEDS: ASPIRIN 81 MG PO SCH (08:18)
[2020-05-17] MEDS: CALCIUM CARBONATE 500 MG CHEWABLE PO SCH (08:18)
[2020-05-17] MEDS: ATORVASTATIN 80 MG TAB PO SCH (08:18)
[2020-05-17] MEDS: CYANOCOBALAMIN 500 MCG TAB PO SCH (08:18)
[2020-05-17] MEDS: CHOLECALCIFEROL 1,000 UNIT TAB PO SCH (08:18)
[2020-05-17] MEDS: INSULIN ASPART (NovoLOG) 100 UNIT/ML VIAL SQ SCH ×2 (08:19→11:50)
[2020-05-17] MEDS: SODIUM BICARBONATE TAB 650 MG TAB PO SCH (08:19)
[2020-05-17] MEDS: CLOPIDOGREL 75 MG TAB PO SCH (08:23)
[2020-05-17 09:08] LABS: Basophils % (A) 0 %; Eosinophils % (A) 1 %; HCT 24.6 % (39.0-53.0); HGB 8.4 gm/dL (13.0-17.5); Lymphocytes # (A) 0.5 k/uL (1.0-4.8); Lymphocytes % (A) 20 %; MCH 32.7 pg (25.0-35.0); MCV 96.2 fL (80.0-100.0); Mean Platelet Volume 10.6; Monocytes # (A) 0.2 k/uL (0-1.0); Monocytes % (A) 9 %; Neutrophils # (A) 1.6 k/uL (1.3-7.7); Neutrophils % (A) 65 %; RBC 2.56 m/uL (4.30-5.90); RDW 14.8 % (11.5-15.5); WBC 2.5 k/uL (3.8-10.6)
[2020-05-17 09:11] LABS: Platelet Count 92 k/uL (150-450)
[2020-05-17 09:20] LABS: African American GFR (CKD) >90 (>60 ml/min/1.73 sqM); Anion Gap 6 mmol/L; Blood Urea Nitrogen 15 mg/dL (9-20); Calcium 6.6 mg/dL (8.4-10.2); Carbon Dioxide 19 mmol/L (22-30); Chloride 111 mmol/L (98-107); Glucose 141 mg/dL (74-99); Non-African American GFR(CKD) 82 (>60 ml/min/1.73 sqM); Potassium 4.4 mmol/L (3.5-5.1); Sodium 136 mmol/L (137-145)
--- NOTE | 2020-05-17 10:24 | P.PN ---
Subjective Patient is seen in follow-up for acute kidney injury. GFR back to baseline. Good urine output. No vomiting or diarrhea. No active complaints at this time. Vital signs are stable. General: The patient appeared well nourished and normally developed. HEENT: Head exam is unremarkable. Neck is without jugular venous distension. LUNGS: Lungs are clear to auscultation and percussion. Breath sounds decreased. HEART: Rate and Rhythm are regular. First and second heart sounds normal. No murmurs, rubs or gallops. ABDOMEN: Abdominal exam reveals normal bowel sounds. Non-tender and non- distended. EXTREMITITES: No clubbing, cyanosis, or edema. Objective - Vital Signs Vital signs: Vital Signs Temp 98.2 F 05/17/20 04:57 Pulse 78 05/17/20 08:00 Resp 18 05/17/20 08:00 BP 167/67 05/17/20 04:57 Pulse Ox 98 05/17/20 04:57 Intake & Output 05/16/20 05/17/20 05/17/20 18:59 06:59 18:59 Intake Total 500 240 Output Total 600 60 Balance 500 -360 -60 Weight 72.575 kg Intake: Intake, IV Titration 500 Amount Cefepime 2 gm In Sodium 100 Chloride 0.9% 100 ml @ 200 mls/hr IVPB Q8HR [facility] Rx#:[id number] Sodium Chloride 0.9% 1, 400 000 ml @ 50 mls/hr IV . Q20H [facility] Rx#:[id number] Oral 240 Output: Urine 600 Stool 60 Other: Voiding Method Toilet Toilet Toilet Urinal Urinal Urinal - Labs CBC & Chem 7: 05/17/20 07:32 05/17/20 07:32 Labs: Abnormal Lab Results - Last 24 Hours (Table) 05/16/20 05/16/20 05/16/20 Range/Units 11:35 17:17 20:11 WBC (3.8-10.6) k/uL RBC (4.30-5.90) m/uL Hgb (13.0-17.5) gm/dL Hct (39.0-53.0) % Plt Count (150-450) k/uL Lymphocytes # (1.0-4.8) k/uL Sodium (137-145) mmol/L Chloride (98-107) mmol/L Carbon Dioxide (22-30) mmol/L Glucose (74-99) mg/dL POC Glucose (mg/dL) 239 H 215 H 303 H (75-99) mg/dL Calcium (8.4-10.2) mg/dL 05/17/20 05/17/20 05/17/20 Range/Units 07:01 07:32 07:32 WBC 2.5 L (3.8-10.6) k/uL RBC 2.56 L (4.30-5.90) m/uL Hgb 8.4 L (13.0-17.5) gm/dL Hct 24.6 L (39.0-53.0) % Plt Count 92 L (150-450) k/uL Lymphocytes # 0.5 L (1.0-4.8) k/uL Sodium 136 L (137-145) mmol/L Chloride 111 H (98-107) mmol/L Carbon Dioxide 19 L (22-30) mmol/L Glucose 141 H (74-99) mg/dL POC Glucose (mg/dL) 157 H (75-99) mg/dL Calcium 6.6 L (8.4-10.2) mg/dL Microbiology - Last 24 Hours (Table) 05/13/20 10:48 Blood Culture - Preliminary Blood No Growth after 72 hours Assessment and Plan Plan: Assessment: 1. Acute kidney injury mostly prerenal due to hypovolemia improved with IV hydration. Creatinine 0.96 today. 2. Metabolic acidosis secondary to acute kidney injury and IV fluids. Maintained on oral sodium bicarbonate. 3. Benign hypertension. Blood pressure on the higher side. Coreg was added yesterday. 4. Bladder cancer status post chemotherapy. 5. Insulin-dependent diabetes mellitus. Plan: Hep-Lock IV fluids. Maintain current antihypertensives. Can add amlodipine if systolic blood pressure remains greater than 140.
[2020-05-17 11:18] LABS: Glucose,Whole Blood 301 mg/dL (75-99)
[2020-05-17] MEDS: CHOLESTYRAMINE (WITH SUGAR) 4 GM PACKET PO SCH (11:23)
--- NOTE | 2020-05-17 12:37 | P.DS ---
Providers Date of admission: 05/13/20 12:37 Expected date of discharge: 05/17/20 Attending physician: Keenan Feliz Consults: 05/13/20 12:51 Consult Physician Stat Consulting Provider: Raf Banda Consult Reason/Comments: Diarrhea, dehydration, post chemo Do you want consulting provider notified?: Yes 05/13/20 16:37 Consult Physician Routine Consulting Provider: Gabbi Dow Consult Reason/Comments: Acute renal failure on cisplatin chemotherapy Do you want consulting provider notified?: Yes 05/13/20 17:00 Consult Physician Routine Consulting Provider: Sukhjinder Juarez Consult Reason/Comments: bladder ca on xrt Do you want consulting provider notified?: Yes Primary care physician: Sukhjinder Rubio Hospital Course: final diagnosis Diarrhea and dehydration, possibly chemotherapy-induced, possible acute colitis Possible sepsis Acute renal failure, possibly acute tubular necrosis secondary to dehydration and diarrhea Acidosis metabolic secondary to acute renal failure Hyponatremia Hypocalcemia Neutropenia anemia Thrombocytopenia Mild pancytopenia secondary to chemotherapy Increased ALT, AST History of mild hepatitis Hypoalbuminemia with mild protein calorie malnutrition Possible acute urinary tract infection, present on admission History of coronary artery disease Hypertension History of myocardial infarction 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 Patient will follow-up with Dr. Rubio upon discharge. patient will also follow-up with Dr. Sukhjinder Juarez radiation oncology along with oncology in the outpatient setting. Total time taken is 35 minutes. History of present illness This is an 69-year-old male who was recently admitted with diarrhea was also found to have hypomagnesemia along with hypocalcemia and was being closely monitored. patient was initiated on empiric antibiotics although cultures have remained negative. Patient's diarrhea improved with Questran and patient does have Lomotil as needed at home. Patient is currently active with chemo radiation and will follow-up with Dr. Juarez along with oncology in the outpatient setting. patient was also seen and evaluated by nephrology for acute kidney injury although creatinine has improved. Patient is maintained on sodium bicarbonate tablets and will continue at this time. Patient's diarrhea has subsided and is feeling better and would like to go home. Currently no reports of chest pain, shortness of breath, or palpitations. Patient is afebrile. No reports of nausea or vomiting and patient is tolerating diet. Patient will be discharged to home today. On exam vital signs are stable. Temp is 98.2F, pulse is 78, respirations are 18, blood pressure is 167/67, oxygen saturation is 98% on room air. Cardio S1, S2 are muffled. Respiratory shows diminished breath sounds at the bases with no wheezing or rhonchi noted. Abdomen is soft and nontender. Nervous system shows no focal deficits. Please refer to medication reconciliation sheet for a list of medications. Patient Condition at Discharge: Stable Plan - Discharge Summary Discharge Rx Participant: No New Discharge Prescriptions: New carvediloL [Coreg] 6.25 mg PO BID-W/MEALS 30 Days #60 tab Pantoprazole [Protonix] 40 mg PO AC-BRKFST 30 Days #30 tablet. Cholestyramine (with Sugar) [Questran Packet] 4 gm PO BID@1000,1800 PRN #30 packet PRN Reason: Diarrhea Sodium Bicarbonate Tab 650 mg PO BID 30 Days #60 tab Calcium Carbonate [Tums] 1,000 mg PO BID #0 chew Continue Aspirin 81 mg PO DAILY #90 chewable Nitroglycerin Sl Tabs [Nitrostat] 0.4 mg SUBLINGUAL Q5M PRN #100 tab PRN Reason: Chest Pain Clopidogrel [Plavix] 75 mg PO DAILY #90 tablet Insulin Glargine,Hum.rec.anlog [Lantus Solostar] 12 unit SQ HS 30 Days #1 ml metFORMIN HCL [metFORMIN HCL ER] 500 mg PO BID #60 tab lisinopriL 40 mg PO HS Cyanocobalamin [Vitamin B-12] 500 mcg PO DAILY Cholecalciferol [Vitamin D3 (25 Mcg = 1000 Iu)] 5,000 unit PO DAILY Ferrous Sulfate [Feosol] 325 mg PO DAILY Diphenox-Atrop 2.5-0.025 mg [Lomotil] 1 tab PO BID PRN PRN Reason: Diarrhea CISplatin [Cisplatin] 50 mg IV DIRECTED Atorvastatin [Lipitor] 80 mg PO DAILY Discharge Medication List Aspirin 81 mg PO DAILY #90 chewable 07/25/19 [Rx] Clopidogrel [Plavix] 75 mg PO DAILY #90 tablet 07/25/19 [Rx] Nitroglycerin Sl Tabs [Nitrostat] 0.4 mg SUBLINGUAL Q5M PRN #100 tab 07/25/19 [Rx] Insulin Glargine,Hum.rec.anlog [Lantus Solostar] 12 unit SQ HS 30 Days #1 ml 09/12/19 [Rx] metFORMIN HCL [metFORMIN HCL ER] 500 mg PO BID #60 tab 09/12/19 [Rx] lisinopriL 40 mg PO HS 12/16/19 [History] Atorvastatin [Lipitor] 80 mg PO DAILY 05/13/20 [History] CISplatin [Cisplatin] 50 mg IV DIRECTED 05/13/20 [History] Cholecalciferol [Vitamin D3 (25 Mcg = 1000 Iu)] 5,000 unit PO DAILY 05/13/20 [History] Cyanocobalamin [Vitamin B-12] 500 mcg PO DAILY 05/13/20 [History] Diphenox-Atrop 2.5-0.025 mg [Lomotil] 1 tab PO BID PRN 05/13/20 [History] Ferrous Sulfate [Feosol] 325 mg PO DAILY 05/13/20 [History] Calcium Carbonate [Tums] 1,000 mg PO BID #0 chew 05/17/20 [Rx] Cholestyramine (with Sugar) [Questran Packet] 4 gm PO BID@1000,1800 PRN #30 packet 05/17/20 [Rx] Pantoprazole [Protonix] 40 mg PO AC-BRKFST 30 Days #30 tablet. 05/17/20 [Rx] Sodium Bicarbonate Tab 650 mg PO BID 30 Days #60 tab 05/17/20 [Rx] carvediloL [Coreg] 6.25 mg PO BID-W/MEALS 30 Days #60 tab 05/17/20 [Rx] Follow up Appointment(s)/Referral(s): Sukhjinder Rubio MD [Primary Care Provider] - 1-2 days Sukjhinder Juarez MD [STAFF PHYSICIAN] - (To have next radiation treatment on Monday, May 18, 2020 at 8:45am at [facility]) Raf Banda MD [STAFF PHYSICIAN] - 05/26/20 1:45 pm Activity/Diet/Wound Care/Special Instructions: Activity Limited until follow-up Up with primary care provider upon discharge Continue following with oncology Continue current diet Discharge Disposition: HOME SELF-CARE
--- NOTE | 2020-05-17 15:19 | P.PN ---
Subjective Progress Note Date: 05/17/20 Principal diagnosis: Electrolyte derangement In follow-up today patient is feeling better than on admit, still pending some laboratory results to ensure that his electrolytes have been replaced adequately. He denies any fever, nausea, vomiting, he is tolerating oral intake, no acute pain to report, breathing comfortably, he is ambulatory. Objective - Vital Signs Vital signs: Vital Signs Temp 98.2 F 05/17/20 04:57 Pulse 78 05/17/20 08:00 Resp 18 05/17/20 08:00 BP 167/67 05/17/20 04:57 Pulse Ox 98 05/17/20 04:57 Intake & Output 05/16/20 05/17/20 05/17/20 18:59 06:59 18:59 Intake Total 500 240 Output Total 600 60 Balance 500 -360 -60 Weight 72.575 kg Intake: Intake, IV Titration 500 Amount Cefepime 2 gm In Sodium 100 Chloride 0.9% 100 ml @ 200 mls/hr IVPB Q8HR COUNTS INCLUDE 234 BEDS AT THE [facility] Rx#:[id number] Sodium Chloride 0.9% 1, 400 000 ml @ 50 mls/hr IV . Q20H COUNTS INCLUDE 234 BEDS AT THE [facility] Rx#:[id number] Oral 240 Output: Urine 600 Stool 60 Other: Voiding Method Toilet Toilet Toilet Urinal Urinal Urinal - Constitutional General appearance: Present: cooperative, no acute distress, thin - EENT Eyes: Present: anicteric sclerae, EOMI ENT: Present: hearing grossly normal - Respiratory Respiratory: bilateral: CTA - Cardiovascular Rhythm: regular Heart sounds: normal: S1, S2 Abnormal Heart Sounds: Absent: systolic murmur, diastolic murmur, rub, S3 Gallop, S4 Gallop, click, other - Peripheral edema leg Peripheral Edema: bilateral: None - Gastrointestinal General gastrointestinal: Present: normal bowel sounds, soft - Integumentary Integumentary: Present: pale - Neurologic Neurologic: Present: CNII-XII intact - Musculoskeletal Musculoskeletal: Present: generalized weakness, strength equal bilaterally - Psychiatric Psychiatric: Present: A&O x's 3, appropriate affect, intact judgment & insight - Labs CBC & Chem 7: 05/17/20 07:32 05/17/20 07:32 Labs: Abnormal Lab Results - Last 24 Hours (Table) 05/16/20 05/16/20 05/16/20 Range/Units 11:35 17:17 20:11 WBC (3.8-10.6) k/uL RBC (4.30-5.90) m/uL Hgb (13.0-17.5) gm/dL Hct (39.0-53.0) % Plt Count (150-450) k/uL Lymphocytes # (1.0-4.8) k/uL Sodium (137-145) mmol/L Chloride (98-107) mmol/L Carbon Dioxide (22-30) mmol/L Glucose (74-99) mg/dL POC Glucose (mg/dL) 239 H 215 H 303 H (75-99) mg/dL Calcium (8.4-10.2) mg/dL 05/17/20 05/17/20 05/17/20 Range/Units 07:01 07:32 07:32 WBC 2.5 L (3.8-10.6) k/uL RBC 2.56 L (4.30-5.90) m/uL Hgb 8.4 L (13.0-17.5) gm/dL Hct 24.6 L (39.0-53.0) % Plt Count 92 L (150-450) k/uL Lymphocytes # 0.5 L (1.0-4.8) k/uL Sodium 136 L (137-145) mmol/L Chloride 111 H (98-107) mmol/L Carbon Dioxide 19 L (22-30) mmol/L Glucose 141 H (74-99) mg/dL POC Glucose (mg/dL) 157 H (75-99) mg/dL Calcium 6.6 L (8.4-10.2) mg/dL Microbiology - Last 24 Hours (Table) 05/13/20 10:48 Blood Culture - Preliminary Blood No Growth after 72 hours Assessment and Plan (1) Bladder cancer Narrative/Plan: Case was discussed with Radiation Oncologist. Patient is going to resume treatment tomorrow. He is not due for chemotherapy for a few weeks. He does have a follow-up with Primary Oncologist, documented in the chart. Current Visit: Yes Status: Acute Priority: Medium Code(s): C67.9 - MALIGNANT NEOPLASM OF BLADDER, UNSPECIFIED SNOMED Code(s): 998947544 (2) Pancytopenia due to chemotherapy Narrative/Plan: Moderate, not requiring intervention. Patient still has several weeks before next cycle of chemotherapy for recovery. Current Visit: Yes Status: Acute Priority: Medium Code(s): D61.810 - ANTINEOPLASTIC CHEMOTHERAPY INDUCED PANCYTOPENIA SNOMED Code(s): 5741425 Plan: Doctor attests: I performed a history and physical examination of this patient, developed impression and plan of care. Discussed with dictator. I agree with dictators note, documented as a scribe.
== END 2020-05-17 16:28 | disposition home or self-care (01) | DRG 871 ==
LOC: EC 09:28 → 5NMEDONC 12:37
PROVIDERS: ADMIT Hospitalist; ATTEND Hospitalist
DX: A41.9 Sepsis, unspecified organism (principal); N17.0 Acute kidney failure with tubular necrosis; D61.810 Antineoplastic chemotherapy induced pancytopenia; E87.2 Acidosis; K52.1 Toxic gastroenteritis and colitis; E87.1 Hypo-osmolality and hyponatremia; E44.1 Mild protein-calorie malnutrition; N39.0 Urinary tract infection, site not specified; E83.51 Hypocalcemia; C67.9 Malignant neoplasm of bladder, unspecified; K75.9 Inflammatory liver disease, unspecified; E11.9 Type 2 diabetes mellitus without complications; Z79.4 Long term (current) use of insulin; J44.9 Chronic obstructive pulmonary disease, unspecified; Z20.828 Contact with and (suspected) exposure to other viral communicable diseases; D63.0 Anemia in neoplastic disease; D64.81 Anemia due to antineoplastic chemotherapy; E86.0 Dehydration; E83.42 Hypomagnesemia; T45.1X5A Adverse effect of antineoplastic and immunosuppressive drugs, initial encounter; E86.1 Hypovolemia; I25.10 Atherosclerotic heart disease of native coronary artery without angina pectoris; E78.5 Hyperlipidemia, unspecified; G14 Postpolio syndrome; M21.70 Unequal limb length (acquired), unspecified site; I25.2 Old myocardial infarction; I10 Essential (primary) hypertension; G89.29 Other chronic pain; M54.5 Low back pain; M19.90 Unspecified osteoarthritis, unspecified site; Z68.24 Body mass index [BMI] 24.0-24.9, adult; Z79.82 Long term (current) use of aspirin; Z79.02 Long term (current) use of antithrombotics/antiplatelets; Z79.899 Other long term (current) drug therapy; Z95.5 Presence of coronary angioplasty implant and graft; Z71.3 Dietary counseling and surveillance; Z98.890 Other specified postprocedural states; Z87.39 Personal history of other diseases of the musculoskeletal system and connective tissue; Z87.448 Personal history of other diseases of urinary system; Z87.891 Personal history of nicotine dependence; Z82.49 Family history of ischemic heart disease and other diseases of the circulatory system; Z83.79 Family history of other diseases of the digestive system; Z84.89 Family history of other specified conditions
CPT/HCPCS: 36415; 71045; 74176; 80048; 80053; 81001; 82150; 82330; 82607; 82728; 82746; 83036; 83540; 83550; 83605; 83630; 83690; 83735; 84100; 85025; 85610; 85730; 87040; 87086; 87324; 96361; 96365; 96367; 99285

== ENCOUNTER → 2020-06-01 | Outpatient (CLI) | payer BC ==
[2020-06-01 11:29] LABS: Appearance,Urine Clear (Clear); Bacteria,Urine Rare /hpf; Bilirubin,Urine Negative (Negative); Blood,Urine Small (Negative); Color,Urine Yellow; Glucose,Urine (UA) 3+ (Negative); Ketones,Urine Negative (Negative); Leukocyte Esterase,Urine Negative (Negative); Mucus,Urine Rare /hpf; Nitrite,Urine Negative (Negative); PH, Urine 6.5 (5.0-8.0); Protein,Urine 3+ (Negative); RBC,Urine 43 /hpf (0-5); Specific Gravity,Urine 1.016 (1.001-1.035); Sperm,Urine Rare /hpf; Squamous Epithelial Cell,Urine <1 /hpf (0-4); Urobilinogen,Urine <2.0 mg/dL (<2.0); WBC,Urine 11 /hpf (0-5)
== END | disposition home or self-care (01) ==
LOC: LABWHC1 08:31
PROVIDERS: ATTEND Radiology Radiation Oncology
DX: C67.2 Malignant neoplasm of lateral wall of bladder (principal); Z87.891 Personal history of nicotine dependence
CPT/HCPCS: 81001; 87086

== ENCOUNTER 2020-06-28 09:08 | Emergency (ER) | payer BC ==
--- NOTE | 2020-06-28 09:57 | ED ---
Male Urogenital HPI - General Chief complaint: Urogenital Stated complaint: blood in urine/cancer pt Time Seen by Provider: 06/28/20 09:21 Source: patient Mode of arrival: ambulatory - History of Present Illness Initial comments: Patient is a 69-year-old male presenting to the emergency department with complaints of blood in his urine that he noticed last night. Patient is cur rently being treated for bladder cancer, his last chemo treatment was last week. Patient states he has not had blood in his urine before. He is also having increased in frequency and some very mild dysuria. He denies any, pain, fever, chills, nausea, vomiting. He has no further complaints at this time. Upon arrival to the ER, his vital signs are stable. - Related Data Home Medications Medication Instructions Recorded Confirmed lisinopriL 40 mg PO HS 12/16/19 05/13/20 Atorvastatin [Lipitor] 80 mg PO DAILY 05/13/20 05/13/20 CISplatin [Cisplatin] 50 mg IV DIRECTED 05/13/20 05/13/20 Cholecalciferol [Vitamin D3 (25 5,000 unit PO DAILY 05/13/20 05/13/20 Mcg = 1000 Iu)] Cyanocobalamin [Vitamin B-12] 500 mcg PO DAILY 05/13/20 05/13/20 Diphenox-Atrop 2.5-0.025 mg 1 tab PO BID PRN 05/13/20 05/13/20 [Lomotil] Ferrous Sulfate [Feosol] 325 mg PO DAILY 05/13/20 05/13/20 Previous Rx's Medication Instructions Recorded Aspirin 81 mg PO DAILY #90 chewable 07/25/19 Clopidogrel [Plavix] 75 mg PO DAILY #90 tablet 07/25/19 Nitroglycerin Sl Tabs [Nitrostat] 0.4 mg SUBLINGUAL Q5M PRN #100 tab 07/25/19 Insulin Glargine,Hum.rec.anlog 12 unit SQ HS 30 Days #1 ml 09/12/19 [Lantus Solostar] metFORMIN HCL [metFORMIN HCL ER] 500 mg PO BID #60 tab 09/12/19 Calcium Carbonate [Tums] 1,000 mg PO BID #0 chew 05/17/20 Cholestyramine (with Sugar) 4 gm PO BID@1000,1800 PRN #30 05/17/20 [Questran Packet] packet Pantoprazole [Protonix] 40 mg PO AC-BRKFST 30 Days #30 05/17/20 tablet. Sodium Bicarbonate Tab 650 mg PO BID 30 Days #60 tab 05/17/20 carvediloL [Coreg] 6.25 mg PO BID-W/MEALS 30 Days #60 05/17/20 tab Ciprofloxacin HCl [Cipro] 500 mg PO BID 7 Days #14 tab 06/28/20 Allergies Allergy/AdvReac Type Severity Reaction Status Date / Time No Known Allergies Allergy Verified 06/28/20 09:18 Review of Systems ROS Statement: Those systems with pertinent positive or pertinent negative responses have been documented in the HPI. ROS Other: All systems not noted in ROS Statement are negative. 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 Last Myocardial Infarction Date:: 07/23/19 History of Any Multi-Drug Resistant Organisms: None Reported Past Surgical History: Heart Catheterization With Stent, Orthopedic Surgery Additional Past Surgical History / Comment(s): Cystoscopy, TURBT x2, closure of patent urachus bladder tumor as infant, R leg surgery d/t polio-lengthening Past Anesthesia/Blood Transfusion Reactions: No Reported Reaction Date of Last Stent Placement:: 07/23/19 Past Psychological History: No Psychological Hx Reported Smoking Status: Former smoker Past Alcohol Use History: None Reported Past Drug Use History: None Reported - Past Family History Father History Unknown: Yes Mother Additional Family Medical History / Comment(s): Mother of in a MVA when pt was 15 yrs old. Brother(s) Additional Family Medical History / Comment(s): Pt has one brother who of a bowel problem and another brother that of a ruptured aneurysm. General Exam - General Exam Comments Initial Comments: GENERAL: Patient is well-developed and well-nourished. Patient is nontoxic and in no acute distress. HEAD: Atraumatic, normocephalic. EYES: Pupils equal round and reactive to light, extraocular movements intact, sclera anicteric, conjunctiva are normal. Eyelids were unremarkable. ENT: TMs normal, nares patent, oropharynx clear without exudates. Moist mucous membranes. NECK: Normal range of motion, supple without lymphadenopathy or JVD. LUNGS: Unlabored respirations. Breath sounds clear to auscultation bilaterally and equal. No wheezes rales or rhonchi. HEART: Regular rate and rhythm without murmurs, rubs or gallops. ABDOMEN: Soft, nontender, normoactive bowel sounds. No guarding, no rebound. No masses appreciated. : Deferred MUSCULOSKELETAL: Normal extremities with adequate strength and normal range of motion, no pitting or edema. No clubbing or cyanosis. NEUROLOGICAL: Patient is alert and oriented x 3. Motor and sensory are also intact. Cranial nerves II through XII grossly intact. Symmetrical smile. Normal speech, normal gait. PSYCH: Normal mood, normal affect. SKIN: Warm, Dry, normal turgor, no rashes or lesions noted. Course Vital Signs 06/28/20 06/28/20 09:15 10:47 Temperature 98.8 F 97.9 F Pulse Rate 83 79 Respiratory 18 16 Rate Blood Pressure 133/66 138/74 O2 Sat by Pulse 98 96 Oximetry Medical Decision Making - Medical Decision Making Patient is a 69-year-old male here for hematuria since last night. He is currently being treated for bladder cancer. Urine did reveal large amount of blood as well as approximately 57 wbc's. Patient will be started on Cipro secondary to possible UTI. Patient will also follow up with his urologist as well as oncologist. Patient is agreeable with this plan of care. Strict return parameters were discussed with the patient and he verbalized understanding. Case discussed with Dr. Argueta. - Lab Data Lab Results 06/28/20 Range/Units 09:36 Urine Color Light Red Urine Appearance Clear (Clear) Urine pH 6.0 (5.0-8.0) Ur Specific [place] 1.010 (1.001-1.035) Urine Protein 1+ H (Negative) Urine Glucose (UA) Negative (Negative) Urine Ketones Negative (Negative) Urine Blood Large H (Negative) Urine Nitrite Negative (Negative) Urine Bilirubin Negative (Negative) Urine Urobilinogen <2.0 (<2.0) mg/dL Ur Leukocyte Esterase Small H (Negative) Urine RBC >182 H (0-5) /hpf Urine WBC 84 H (0-5) /hpf Amorphous Sediment Rare H (None) /hpf Urine Mucus Rare H (None) /hpf Disposition Clinical Impression: Urinary tract infection, Hematuria Disposition: HOME SELF-CARE Condition: Stable Instructions (If sedation given, give patient instructions): Urinary Tract Infection in Men (ED) Additional Instructions: Please return to the Emergency Department if symptoms worsen or any other concerns. Take antibiotic as prescribed. Follow-up with oncologist and urologist as discussed. Prescriptions: Ciprofloxacin HCl [Cipro] 500 mg PO BID 7 Days #14 tab Is patient prescribed a controlled substance at d/c from ED?: No Referrals: Sukhjinder Rubio MD [Primary Care Provider] - 1-2 days
[2020-06-28 10:06] LABS: Amorphous Sediment,Urine Rare /hpf; Appearance,Urine Clear (Clear); Bilirubin,Urine Negative (Negative); Blood,Urine Large (Negative); Color,Urine Light Red; Glucose,Urine (UA) Negative (Negative); Ketones,Urine Negative (Negative); Leukocyte Esterase,Urine Small (Negative); Mucus,Urine Rare /hpf; Nitrite,Urine Negative (Negative); Protein,Urine 1+ (Negative); RBC,Urine >182 /hpf (0-5); Urobilinogen,Urine <2.0 mg/dL (<2.0); WBC,Urine 84 /hpf (0-5)
[2020-06-28 10:48] VITALS: BP 138/74; PULSE 79; RESP 16; TEMP 97.9
== END 2020-06-28 10:47 | disposition home or self-care (01) ==
LOC: EC 09:08
DX: C67.9 Malignant neoplasm of bladder, unspecified (principal); N39.0 Urinary tract infection, site not specified; R31.9 Hematuria, unspecified; I10 Essential (primary) hypertension; I25.10 Atherosclerotic heart disease of native coronary artery without angina pectoris; I25.2 Old myocardial infarction; Z79.899 Other long term (current) drug therapy; Z87.891 Personal history of nicotine dependence
CPT/HCPCS: 81001; 87086; 99283

== ENCOUNTER → 2020-07-23 | Outpatient (CLI) | payer BC ==
--- NOTE | 2020-07-23 14:46 | CT ---
EXAMINATION TYPE: CT abdomen pelvis w con DATE OF EXAM: 07/23/2020 COMPARISON: CT abdomen and pelvis May 13, 2020 and older studies. HISTORY: Bladder CA. No further history specified by technologist. CT DLP: 801.1 mGycm, Automated Exposure Control for Dose Reduction was Utilized. CONTRAST: CT scan of the abdomen and pelvis is performed with oral and with IV Contrast, patient injected with 100 mL of Isovue 300. FINDINGS: LUNG BASES: Right coronary artery calcification and/or stent redemonstrated. LIVER/GB: Diffuse density in gallbladder redemonstrated. Nondependent areas of low density noted has similar appearance to most recent study. Etiology uncertain. PANCREAS: No significant abnormality is seen. SPLEEN: No significant abnormality is seen. ADRENALS: No significant abnormality is seen. KIDNEYS: Symmetric cortical medullary uptake and excretion without hydronephrosis seen bilaterally. B ladder poorly distended with severe wall thickening and mild to moderate surrounding fat stranding si milar to prior studies. Tiny nonobstructing renal calculi redemonstrated for reference upper pole has 2 calculi measuring 2 mm or smaller in size., Possible BOWEL: Oral contrast reaches level of the terminal ileum. Evaluation of distal bowel slightly subopti mal. No suspicious small or large bowel dilatation. Interval marked improvement in adjacent sigmoid c olonic wall thickening on current study. PROSTATE/SEMINAL VESICLES: Central calcifications in nonenlarged prostate. Small right pelvic fluid a xial image 71 new from most recent prior. LYMPH NODES: No new greater than 1cm abdominal or pelvic lymph nodes are appreciated. OSSEOUS STRUCTURES: Facet arthropathy lower lumbar levels. Pgeaifcr-lo-oeezwk narrowing of both hip j oints. Old healed fracture deformity right hip noted. OTHER: Posterior left curvilinear calcifications pelvis are redemonstrated. Moderate to severe calcif ied plaque of the aorta extends into branch vessels. IMPRESSION: 1. Persistent abnormal paracentral bladder could reflect posttreatment change and/or neoplasm. Improv ed adjacent colitis. New small to moderate amount of right pelvic fluid of uncertain etiology. 2. Persistent unusual appearance to the gallbladder, possible sludge and/or small stones. Consider ul trasound correlation.
== END | disposition home or self-care (01) ==
LOC: RADCTMAIN 12:27
PROVIDERS: ATTEND Internal Medicine Hematology & Oncology
DX: K52.9 Noninfective gastroenteritis and colitis, unspecified (principal); R93.41 Abnormal radiologic findings on diagnostic imaging of renal pelvis, ureter, or bladder; R93.2 Abnormal findings on diagnostic imaging of liver and biliary tract; C67.9 Malignant neoplasm of bladder, unspecified; E11.9 Type 2 diabetes mellitus without complications; Z79.84 Long term (current) use of oral hypoglycemic drugs
CPT/HCPCS: 82565; 84520; 74177; 36415; Q9967

== ENCOUNTER → 2021-01-11 | Outpatient (CLI) | payer BC ==
--- NOTE | 2021-01-11 11:37 | CT ---
EXAMINATION TYPE: CT abdomen pelvis w con DATE OF EXAM: 01/11/2021 COMPARISON: CT July 23, 2020 and older CTs HISTORY: History of bladder cancer, tumor removed CT DLP: 1799 mGycm, Automated Exposure Control for Dose Reduction was Utilized. CONTRAST: CT scan of the abdomen and pelvis is performed with oral and with IV Contrast, patient injected with 80 mL of Isovue 300. FINDINGS: LUNG BASES: No significant abnormality is appreciated. LIVER/GB: Gallbladder remains hyperdense consistent with multiple small stones and/or sludge filling the entire gallbladder lumen. PANCREAS: No significant abnormality is seen. SPLEEN: No significant abnormality is seen. ADRENALS: No significant abnormality is seen. KIDNEYS: There are suspected some small scattered nonobstructing right-sided renal calculi. For refer ence 3 mm stone upper pole right kidney axial image 20. Symmetric cortical medullary uptake and excre tion without hydronephrosis seen bilaterally. Poorly distended bladder with moderate to severe wall t hickening redemonstrated. Findings similar to prior studies. Presumed posttreatment change. Improved adjacent fat stranding on current study noted. BOWEL: Oral contrast reaches level of cecum. No suspicious small or large bowel dilatation. Normal-ap pearing appendix seen from base of cecum in the right lower quadrant. Moderate fecal prominence right colon. Correlate for proximal fecal stasis. PROSTATE/SEMINAL VESICLES: Particularly in upper limits of normal in size with central calcification. LYMPH NODES: No greater than 1cm abdominal or pelvic lymph nodes are appreciated. OSSEOUS STRUCTURES: Facet arthropathy lower lumbar levels redemonstrated. Ajgrtahz-tk-pueyot narrowi ng of both hip joints is again seen. OTHER: Moderate mixed plaque of the aorta extends into branch vessels. IMPRESSION: Overall stable appearance to the bladder favors posttreatment change. No new suspicious m ass or adenopathy to suggest active neoplastic recurrence.
== END | disposition home or self-care (01) ==
LOC: RADCTMAIN 08:40
PROVIDERS: ATTEND Internal Medicine Hematology & Oncology
DX: Z85.51 Personal history of malignant neoplasm of bladder (principal)
CPT/HCPCS: 82565; 84520; 74177; 36415; Q9967 ×2

== ENCOUNTER → 2021-08-23 | Outpatient (CLI) | payer BC ==
--- NOTE | 2021-08-23 11:55 | CT ---
EXAMINATION TYPE: CT abdomen pelvis w con DATE OF EXAM: 08/23/2021 COMPARISON: CT abdomen and pelvis January 11, 2021 and older studies HISTORY: Bladder cancer CT DLP: 1097.20 mGycm, Automated Exposure Control for Dose Reduction was Utilized. CONTRAST: CT scan of the abdomen and pelvis is performed with oral and with IV Contrast, patient injected with 100 ml mL of Isovue 300. FINDINGS: LUNG BASES: Coronary stent in the RCA distribution is felt present. LIVER/GB: Gallbladder remains hyperdense consistent with multiple small stones and/or sludge filling nearly entire gallbladder lumen. PANCREAS: No significant abnormality is seen. SPLEEN: No significant abnormality is seen. ADRENALS: No significant abnormality is seen. KIDNEYS: There are suspected some small scattered nonobstructing right-sided renal calculi. For refer ence 3 mm stone upper pole right kidney coronal image 68. Some small caliber arterial vascular calcif ication centrally is seen better on the left. Symmetric cortical medullary uptake and excretion witho ut hydronephrosis seen bilaterally. Better distended bladder with more mild to moderate anterior supe rior wall thickening now identified. Findings similar to prior studies. Presumed posttreatment change . BOWEL: Oral contrast reaches level of distal ileum. No suspicious small or large bowel dilatation. No rmal-appearing appendix seen from base of cecum in the right pelvis. Mild to moderate scattered colon ic fecal prominence remains present. Correlate for proximal fecal stasis. PROSTATE/SEMINAL VESICLES: Stable measuring upper limits of normal in size with central calcification . LYMPH NODES: No new greater than 1cm abdominal or pelvic lymph nodes are appreciated. OSSEOUS STRUCTURES: Facet arthropathy lower lumbar levels redemonstrated. Wcykrpwq-yd-rqeaph narrowi ng of both hip joints is again seen. OTHER: Moderate to borderline severe mixed plaque of the aorta extends into branch vessels. IMPRESSION: Improved distention of bladder. Persistent abnormal wall thickening anterior superior asp ect favors posttreatment change. No new suspicious mass or adenopathy to suggest active neoplastic re currence.
== END | disposition home or self-care (01) ==
LOC: RADCTMAIN 09:17
PROVIDERS: ATTEND Internal Medicine Hematology & Oncology
DX: Z03.89 Encounter for observation for other suspected diseases and conditions ruled out (principal); C67.9 Malignant neoplasm of bladder, unspecified
CPT/HCPCS: 82565; 84520; 74177; 36415; Q9967

== ENCOUNTER → 2022-01-07 | Outpatient (CLI) | payer BC ==
[2022-01-07 17:22] LABS: Erythrocyte Sedimentation Rate 66 mm/Hr (0-20)
[2022-01-07 17:25] LABS: ALT 22 U/L (10-49); AST 19 U/L (14-35); Albumin 3.9 g/dL (3.8-4.9); Albumin/Globulin Ratio 1.58 (1.60-3.17); Alkaline Phosphatase 93 U/L (41-126); BUN/Creat Ratio 22.28 Ratio (12.00-20.00); Blood Urea Nitrogen 27.4 mg/dL (9.0-27.0); Calcium 8.5 mg/dL (8.7-10.3); Carbon Dioxide 20.8 mmol/L (20.0-27.5); Chloride 107 mmol/L (96-109); Chol/HDL Ratio 2.45 Ratio; Globulin 2.5 g/dL (1.6-3.3); Glucose 117 mg/dL (70-110); LDL Cholesterol,Calculated 38.7 mg/dL (0.0-131.0); Non-African American GFR(CKD) 59.5 (60.0-200.0); Rheumatoid Factor, Qnt 10 IU/mL (0-15); Sodium 139 mmol/L (135-145); Total Protein 6.4 g/dL (6.2-8.2)
[2022-01-07 17:28] LABS: Basophils # (A) 0.02 X 10*3/uL (0.00-0.10); Basophils % (A) 0.2 %; Eosinophils # (A) 0.28 X 10*3/uL (0.04-0.35); HCT 36.1 % (39.6-50.0); HGB 11.7 g/dL (13.0-17.0); Immature Grans, Automated 0.3 %; Lymphocytes # (A) 0.87 X 10*3/uL (0.90-5.00); Lymphocytes % (A) 9.2 %; MCHC 32.4 g/dL (32.0-37.0); MCV 104.9 fL (80.0-97.0); Mean Platelet Volume 13.3 fL (9.5-12.2); Monocytes # (A) 0.89 X 10*3/uL (0.20-1.00); Monocytes % (A) 9.4 %; NRBC Per 100 WBC 0 /100 WBCS (0.0-0.0); Neutrophils # (A) 7.35 X 10*3/uL (1.80-7.70); Neutrophils % (A) 77.9 %; Platelet Count 153 X 10*3/uL (140-440); RBC 3.44 X 10*6/uL (4.40-5.60); RDW 13.4 % (11.5-14.5); WBC 9.44 X 10*3/uL (4.50-10.00)
== END | disposition home or self-care (01) ==
LOC: LABWHC1 09:50
PROVIDERS: ATTEND Physician Assistant
DX: Z00.01 Encounter for general adult medical examination with abnormal findings (principal); Z12.5 Encounter for screening for malignant neoplasm of prostate; E78.5 Hyperlipidemia, unspecified; E11.9 Type 2 diabetes mellitus without complications; M25.50 Pain in unspecified joint
CPT/HCPCS: 36415; 80053; 80061; 83036; 84153; 85025; 85652; 86038; 86431

== ENCOUNTER → 2022-07-22 | Outpatient (CLI) | payer BC ==
[2022-07-22 11:43] LABS: African American GFR (CKD) 56.1 (60.0-200.0); Anion Gap 11.1 mmol/L (10.00-18.00); BUN/Creat Ratio 19.93 Ratio (12.00-20.00); Blood Urea Nitrogen 29.1 mg/dL (9.0-27.0); Calcium 8.6 mg/dL (8.7-10.3); Non-African American GFR(CKD) 48.4 (60.0-200.0); Potassium 5.4 mmol/L (3.5-5.5)
== END | disposition home or self-care (01) ==
LOC: LABWHC1 08:02
PROVIDERS: ATTEND Internal Medicine Interventional Cardiology
DX: N18.9 Chronic kidney disease, unspecified (principal)
CPT/HCPCS: 36415; 80048

== ENCOUNTER 2022-11-03 14:05 | Inpatient (IN) | payer BC, MEDICARE ==
--- NOTE | 2022-11-03 14:23 | ED ---
General Adult HPI - General Chief complaint: Fall Stated complaint: Fall Time Seen by Provider: 11/03/22 14:13 Source: patient Mode of arrival: EMS Limitations: physical limitation - History of Present Illness Initial comments: Dictation was produced using Saise[employer] dictation software. please excuse any grammatical, word or spelling errors. Chief Complaint: 72-year-old male presents with right hip pain History of Present Illness: Patient is a 72-year-old male right hip pain he was walking down a small series of steps when he lost his footing. He landed on his right hip. Patient called ambulance. EMS were patient [facility] his leg was shortened. Patient denies any head trauma. No neck pain. Denies any other pain complaints besides just in his right hip. No history of orthopedic surgery. Denies any numbness distally paresthesias to extremities The ROS documented in this emergency department record has been reviewed and confirmed by me. Those systems with pertinent positive or negative responses have been documented in the HPI. All other systems are other negative and/or noncontributory. PHYSICAL EXAM: General Impression: Alert and oriented x3, not in acute distress HEENT: Normocephalic atraumatic, extra-ocular movements intact, pupils equal and reactive to light bilaterally, mucous membranes moist. Cardiovascular: Heart regular rate and rhythm Chest: Able to complete full sentences, no retractions, no tachypnea Abdomen: abdomen soft, non-tender, non-distended, no organomegaly Musculoskeletal: Pulses present and equal in all extremities, no peripheral edema, shortened and externally rotated right lower extremity compared to the left, right foot is neurovascularly intact Motor: no focal deficits noted Neurological: CN II-XII grossly intact, no focal motor or sensory deficits noted Skin: Intact with no visualized rashes Psych: Normal affect and mood ED course: 72 yo Male presents to emergency department after fall. Clinical presentation concerning for right hip fracture. Vital signs upon arrival shows blood pressure 214/105, rest of vital signs within acceptable limits. Nursing notes and chart review was performed My EKG interpretation: Ventricular rate 69, sinus rhythm,. 165, QRS 94, QTC 391. No SC prolongation, no QTC prolongation, no ST or T-wave changes noted. EKG compared to 07/24/2019 showing no changes. Overall, this EKG is unremarkable Laboratory evaluation obtained. CBC, metabolic panel within acceptable limits. Patient likely has false potassium of 5.9. Repeat potassium level ordered. Computed tomography scan of the head and C-spines unremarkable. Hip, femur and pelvis x-ray shows mildly displaced intertrochanteric hip fracture. Chest x-ray is nonacute. Patient be admitted for right hip fracture. Case discussed with Dr. Huerta symptoms O2 sat patient's care. He requests medicine be consulted. Was pt. sent in by a medical professional or institution (, CARLA, DIRECTOR MBA, urgent care, hospital, or half-way...) When possible be specific @ -No Did you speak to anyone other than the patient for history (EMS, parent, family, police, friend...)? What history was obtained from this source @ -No Did you review nursing and triage notes (agree or disagree)? Why? @ -I reviewed and agree with nursing and triage notes Were old charts reviewed (outside hosp., previous admission, EMS record, old EKG, old radiological studies, urgent care reports/EKG's, half-way records)? Report findings @ -No old charts were reviewed Differential Diagnosis (chest pain, altered mental status, abdominal pain women, abdominal pain men, vaginal bleeding, weakness, fever, dyspnea, syncope, headache, dizziness, GI bleed, back pain, seizure, CVA, palpatations, mental health)? @ -not applicable EKG interpreted by me (3pts min.). @ -As above X-rays interpreted by me (1pt min.). @ -As above CT interpreted by me (1pt min.). @ -As above U/S interpreted by me (1pt. min.). @ -None done What testing was considered but not performed or refused? (CT, X-rays, U/S, labs)? Why? @ -None What meds were considered but not given or refused? Why? @ -None Did you discuss the management of the patient with other professionals (professionals i.e. CARLA Cadena, DIRECTOR MBA, lab, RT, psych nurse, manager social, retail warehouse supervisor, teacher, planned giving officer, skilled nursing case manager)? Give summary @ -Dr. Tang Was smoking cessation discussed for >3mins.? @ -No Was critical care preformed (if so, how long)? @ -No Were there social determinants of health that impacted care today? How? (Homelessness, low income, unemployed, alcoholism, drug addiction, transportation, low edu. Level, literacy, decrease access to med. care, prison, rehab)? @ -No Was there de-escalation of care discussed even if they declined (Discuss DNR or withdrawal of care, Hospice)? DNR status @ -No What co-morbidities impacted this encounter? (DM, HTN, Smoking, COPD, CAD, Cancer, CVA, ARF, Chemo, Hep., AIDS, mental health diagnosis, sleep apnea, morbid obesity)? @ -None Was patient admitted / discharged? Hospital course, mention meds given and route , prescriptions, significant lab abnormalities, going to OR and other pertinent info. @ -See above Undiagnosed new problem with uncertain prognosis? @ -No Drug Therapy requiring intensive monitoring for toxicity (Heparin, Nitro, Insulin, Cardizem)? @ -No Were any procedures done? @ -No Diagnosis/symptom? @ -Curet hip fracture status post fall Acute, or Chronic, or Acute on Chronic? @ -Acute Uncomplicated (without systemic symptoms) or Complicated (systemic symptoms)? @ -default Side effects of treatment? @ -No Exacerbation, Progression, or Severe Exacerbation? @ -No Poses a threat to life or bodily function? How? (Chest pain, [place], SC, pneumonia, PE, COPD, DKA, ARF, appy, cholecystitis, CVA, Diverticulitis, Homicidal, Suicidal, threat to staff... and all critical care pts) @ -yes - Related Data Home Medications Medication Instructions Recorded Confirmed lisinopriL 40 mg PO HS 12/16/19 05/13/20 Atorvastatin [Lipitor] 80 mg PO DAILY 05/13/20 05/13/20 CISplatin 50 mg IV DIRECTED 05/13/20 05/13/20 Cholecalciferol [Vitamin D3 (25 5,000 unit PO DAILY 05/13/20 05/13/20 Mcg = 1000 Iu)] Cyanocobalamin [Vitamin B-12] 500 mcg PO DAILY 05/13/20 05/13/20 Diphenox-Atrop 2.5-0.025 mg 1 tab PO BID PRN 05/13/20 05/13/20 [Lomotil] Ferrous Sulfate [Feosol] 325 mg PO DAILY 05/13/20 05/13/20 Previous Rx's Medication Instructions Recorded Aspirin 81 mg PO DAILY #90 chewable 07/25/19 Clopidogrel [Plavix] 75 mg PO DAILY #90 tablet 07/25/19 Nitroglycerin Sl Tabs [Nitrostat] 0.4 mg SUBLINGUAL Q5M PRN #100 tab 07/25/19 Insulin Glargine,Hum.rec.anlog 12 unit SQ HS 30 Days #1 ml 09/12/19 [Lantus Solostar Pen] metFORMIN HCL [metFORMIN HCL ER] 500 mg PO BID #60 tab 09/12/19 Calcium Carbonate [Tums] 1,000 mg PO BID #0 chew 05/17/20 Cholestyramine (with Sugar) 4 gm PO BID@1000,1800 PRN #30 05/17/20 [Questran Packet] packet Pantoprazole [Protonix] 40 mg PO AC-BRKFST 30 Days #30 05/17/20 tablet. Sodium Bicarbonate Tab 650 mg PO BID 30 Days #60 tab 05/17/20 carvediloL [Coreg] 6.25 mg PO BID-W/MEALS 30 Days #60 05/17/20 tab Ciprofloxacin HCl [Cipro] 500 mg PO BID 7 Days #14 tab 06/28/20 Allergies Allergy/AdvReac Type Severity Reaction Status Date / Time No Known Allergies Allergy Verified 06/28/20 09:18 Review of Systems ROS Statement: Those systems with pertinent positive or pertinent negative responses have been documented in the HPI. ROS Other: All systems not noted in ROS Statement are negative. 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 Last Myocardial Infarction Date:: 07/23/19 History of Any Multi-Drug Resistant Organisms: None Reported Past Surgical History: Heart Catheterization With Stent, Orthopedic Surgery Additional Past Surgical History / Comment(s): Cystoscopy, TURBT x2, closure of patent urachus bladder tumor as infant, R leg surgery d/t polio-lengthening Past Anesthesia/Blood Transfusion Reactions: No Reported Reaction Date of Last Stent Placement:: 07/23/19 Past Psychological History: No Psychological Hx Reported Smoking Status: Former smoker Past Alcohol Use History: None Reported Past Drug Use History: None Reported - Past Family History Father History Unknown: Yes Mother Additional Family Medical History / Comment(s): Mother of in a MVA when pt was 15 yrs old. Brother(s) Additional Family Medical History / Comment(s): Pt has one brother who of a bowel problem and another brother that of a ruptured aneurysm. General Exam Limitations: physical limitation Course Vital Signs 11/03/22 14:07 Temperature 97.0 F L Pulse Rate 69 Respiratory 18 Rate Blood Pressure 214/105 O2 Sat by Pulse 97 Oximetry Medical Decision Making - Lab Data Result diagrams: 11/03/22 14:57 11/03/22 14:57 Lab Results 11/03/22 11/03/22 Range/Units 14:57 14:57 WBC 14.6 H (3.8-10.6) k/uL RBC 3.63 L (4.30-5.90) m/uL Hgb 12.4 L (13.0-17.5) gm/dL Hct 37.1 L (39.0-53.0) % MCV 102.0 H (80.0-100.0) fL MCH 34.2 (25.0-35.0) pg MCHC 33.5 (31.0-37.0) g/dL RDW 13.4 (11.5-15.5) % Plt Count 149 L (150-450) k/uL MPV 10.7 Neutrophils % 84 % Lymphocytes % 7 % Monocytes % 5 % Eosinophils % 3 % Basophils % 0 % Neutrophils # 12.2 H (1.3-7.7) k/uL Lymphocytes # 1.0 (1.0-4.8) k/uL Monocytes # 0.7 (0-1.0) k/uL Eosinophils # 0.4 (0-0.7) k/uL Basophils # 0.0 (0-0.2) k/uL Macrocytosis Slight Sodium 135 L (137-145) mmol/L Potassium 5.9 H (3.5-5.1) mmol/L Chloride 103 (98-107) mmol/L Carbon Dioxide 23 (22-30) mmol/L Anion Gap 9 mmol/L BUN 25 H (9-20) mg/dL Creatinine 1.42 H (0.66-1.25) mg/dL Est GFR (CKD-EPI)AfAm 58 (>60 ml/min/1.73 sqM) Est GFR (CKD-EPI)NonAf 50 (>60 ml/min/1.73 sqM) Glucose 160 H (74-99) mg/dL Calcium 8.9 (8.4-10.2) mg/dL Disposition Clinical Impression: Hip fracture Disposition: ADMITTED IP TO THIS HOSP Condition: Serious Referrals: Sukhjinder Rubio MD [Primary Care Provider] - 1-2 days Decision Time: 16:57
[2022-11-03] MEDS: MORPHINE SULFATE 4 MG/ML SYRINGE IV STA ×2 (14:58→17:02)
[2022-11-03 15:41] LABS: Basophils % (A) 0 %; Eosinophils # (A) 0.4 k/uL (0-0.7); Eosinophils % (A) 3 %; HCT 37.1 % (39.0-53.0); HGB 12.4 gm/dL (13.0-17.5); Lymphocytes % (A) 7 %; MCH 34.2 pg (25.0-35.0); MCHC 33.5 g/dL (31.0-37.0); Macrocytosis Slight; Mean Platelet Volume 10.7; Monocytes # (A) 0.7 k/uL (0-1.0); Monocytes % (A) 5 %; Neutrophils # (A) 12.2 k/uL (1.3-7.7); Neutrophils % (A) 84 %; Platelet Count 149 k/uL (150-450); RBC 3.63 m/uL (4.30-5.90); RDW 13.4 % (11.5-15.5); WBC 14.6 k/uL (3.8-10.6)
[2022-11-03 15:45] LABS: Calcium 8.9 mg/dL (8.4-10.2); Potassium 5.9 mmol/L (3.5-5.1)
--- NOTE | 2022-11-03 15:51 | XR ---
EXAMINATION TYPE: XR Hip RT and AP Pelvis DATE OF EXAM: 11/03/2022 3:43 PM INDICATION: Patient age:Male; 72 years old; Reason for study: fall; PHH. COMPARISON: CT abdomen and pelvis 08/23/2021 TECHNIQUE: The right hip was examined in the frontal and lateral projections and a AP pelvis. FINDINGS: Acute mildly displaced intertrochanteric right proximal femur fracture. No dislocation. Vas cular sclerosis. Multilevel degenerative changes visualized spine. Overlying soft tissue edema. IMPRESSION: Acute mildly displaced intertrochanteric right femur fracture.
--- NOTE | 2022-11-03 15:52 | CT ---
EXAMINATION TYPE: CT brain aristeo ortega con DATE OF EXAM: 11/03/2022 COMPARISON: None HISTORY: 72-year-old male with pain after Fall CT DLP: 1346.5 mGycm Automated exposure control for dose reduction was used. Technique: Examination of the head was done in axial plane without intravenous contrast. Coronal and sagittal reconstructions performed. CT of the cervical spine was obtained in axial plane without intravenous injection of contrast mater ial. Coronal and sagittal reformatted images were obtained from the axial views for evaluation of f ractures, spinal alignment and canal. FINDINGS: Head: There is no evidence of acute intracranial hemorrhage, acute ischemic changes, mass, mass-effect, or extra-axial fluid collection. There is no effacement of cerebral sulci or basal subarachnoid cister ns. There is no hydrocephalus. There is no midline shift. Mayer-white matter distinction is preserv ed. Paranasal sinuses are well-pneumatized. There is partial opacification of right mastoid air cells. Or bits and globes are intact. Cervical spine: No craniocervical junction amount, predental space widening, or prevertebral soft tissue swelling. De generative bony ankylosis at the C1 dens articulation. Moderate disposition to degenerative change C5-C7 levels. Disc osteophyte complexes appeared contribu ting to mild to moderate narrowing of the spinal canal. Alignment is maintained. No acute fracture seen of the cervical spine. At C4-C5, uncovertebral joint and facet arthropathy contributes to moderate to severe right neurofora cailin stenosis. At C5-C6, changes contribute to moderate right greater than left neuroforaminal stenosis. At C6/C7, changes result in moderate to severe left and moderate right foraminal stenosis. Emphysematous changes in the visualized upper lungs with right apical pleural parenchymal scarring. Sagittal and coronal reformatted images confirm above findings. COMBINED IMPRESSION: 1. No acute intracranial abnormality seen. 2. No acute fracture or malalignment of the cervical spine. Moderate spondylotic changes especially f rom C4 through C7 levels. 3. Partial opacification of the right mastoid air cells. Correlate for any mastoid pain to exclude ma stoiditis.
--- NOTE | 2022-11-03 15:53 | XR ---
EXAMINATION TYPE: XR femur RT DATE OF EXAM: 11/03/2022 3:44 PM INDICATION: Patient age:Male; 72 years old; Reason for study: FALL; COMPARISON: Right hip radiograph the same day. TECHNIQUE: The right femur was examined in AP and lateral projections. FINDINGS: Acute mildly displaced intratrochanteric fracture of the proximal right femur. No dislocat ion. Associated soft tissue swelling. Vascular sclerosis. IMPRESSION: Acute mildly displaced intertrochanteric fracture of the proximal right femur.
--- NOTE | 2022-11-03 15:54 | XR ---
EXAMINATION TYPE: XR chest 1V portable DATE OF EXAM: 11/03/2022 3:43 PM COMPARISON: Chest radiographs from 05/13/2020 TECHNIQUE: XR chest 1V portable Portable AP radiograph of the chest. CLINICAL INDICATION:Male, 72 years old with history of fall; FINDINGS: Lungs/Pleura: There is no evidence of pleural effusion, focal consolidation, or pneumothorax. Chroni c senescent parenchymal changes. Pulmonary vascularity: Unremarkable. Heart/mediastinum: Cardiomediastinal silhouette is unremarkable. Atherosclerotic calcifications are seen in the aorta. Musculoskeletal: No acute osseous pathology. IMPRESSION: No acute cardiopulmonary disease/process.
[2022-11-03] MEDS ORDERED: NALOXONE 0.4 MG/ML 1 ML VIAL IV PRN (16:52)
[2022-11-03] MEDS ORDERED: MORPHINE SULFATE 4 MG/ML SYRINGE IV PRN (16:52)
[2022-11-03] MEDS ORDERED: SODIUM CHLORIDE 0.9% 1,000 ML IV SCH (17:00)
[2022-11-03 17:38] LABS: Prothrombin Time 10.6 sec (9.0-12.0)
--- NOTE | 2022-11-03 17:50 | P.HPOR ---
History of Present Illness H&P Date: 11/03/22 Chief Complaint: right hip pain Patient is a 72-year-old male with a past medical history of CAD, cancer, diabetes, hyperlipidemia, hypertension, osteoarthritis to presents to the emergency department this afternoon at [facility] status post fall at home. Patient was seen at bedside early this evening in the emergency department. Patient says he was walking down a couple steps at home when he tripped and fell landing on his right hip. Patient denies losing co nsciousness/hitting his head. Patient says most of the pain is located at the right hip. Patient denies radiation of pain. Patient denies any other locations of pain. Patient says he does not take any blood thinners. Patient says he normally ambulates with a cane at home. Patient does live with a spouse at home. Patient says he does have a past medical history for bladder cancer for which his last chemo treatment was in 2019. Patient also says he had polio as a child and he did have a right leg lengthening procedure when he was younger. Patient denies chest pain, fever, shortness breath, nausea, vomiting, change in vision, loss of bowel/bladder control. 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 Last Myocardial Infarction Date:: 07/23/19 History of Any Multi-Drug Resistant Organisms: None Reported Past Surgical History: Heart Catheterization With Stent, Orthopedic Surgery Additional Past Surgical History / Comment(s): Cystoscopy, TURBT x2, closure of patent urachus bladder tumor as infant, R leg surgery d/t polio-lengthening Past Anesthesia/Blood Transfusion Reactions: No Reported Reaction Date of Last Stent Placement:: 07/23/19 Past Psychological History: No Psychological Hx Reported Smoking Status: Former smoker Past Alcohol Use History: None Reported Past Drug Use History: None Reported - Past Family History Father History Unknown: Yes Mother Additional Family Medical History / Comment(s): Mother of in a MVA when pt was 15 yrs old. Brother(s) Additional Family Medical History / Comment(s): Pt has one brother who of a bowel problem and another brother that of a ruptured aneurysm. Medications and Allergies Home Medications Medication Instructions Recorded Confirmed Type Aspirin 81 mg PO DAILY #90 chewable 07/25/19 05/13/20 Rx metFORMIN HCL [metFORMIN HCL ER] 500 mg PO BID #60 tab 09/12/19 05/13/20 Rx Atorvastatin [Lipitor] 80 mg PO DAILY 05/13/20 05/13/20 History Loperamide [Imodium] 2 mg PO DAILY PRN 11/03/22 11/03/22 History Semaglutide [Ozempic] 0.25 mg SQ MANZANO 11/03/22 11/03/22 History Spironolactone [Aldactone] 25 mg PO DAILY 11/03/22 11/03/22 History carvediloL [Coreg*] 6.25 mg PO BID 11/03/22 11/03/22 History hydroCHLOROthiazide [Hydrodiuril] 12.5 mg PO DAILY 11/03/22 11/03/22 History lisinopriL [Zestril] 20 mg PO DAILY 11/03/22 11/03/22 History Allergies Allergy/AdvReac Type Severity Reaction Status Date / Time No Known Allergies Allergy Verified 11/03/22 17:35 Physical Examination Inspection: Right leg is shortened and externally rotated. Negative for any open fractures, significant erythema/ulcers/ecchymosis. Sensation: Sensation is equal, symmetric, bilaterally intact throughout the upper and lower extremities. Palpation: Patient has moderate to severe TTP along the right hip diffusely. Nontender to palpation throughout rest of exam Range of motion: Patient has full range of motion in left lower extremity and bilateral upper extremities on exam. Patient has full range of motion in right lower extremity and ankle plantar/dorsiflexion. She does have limited range of motion secondary to pain/weakness in the right lower extremity in hip flexion/extension and knee flexion/extension. Motor: 5/5 in all major motor groups in bilateral upper extremities and left lower extremity on exam. Right ankle 4/5 in resisted dorsi/plantar flexion. Right lower extremity hip/knee motor exam limited due to injury. Neurovascular status: Radial pulses intact, 2+ bilaterally. Cap refill under 3 seconds in digits of upper extremities. Dorsalis pedis pulses present bilaterally. Feet are lukewarm to touch Special tests: Negative Homans bilaterally. Pain during logroll maneuver to right hip Results - Labs Labs: Abnormal Lab Results - Last 24 Hours (Table) 11/03/22 11/03/22 Range/Units 14:57 14:57 WBC 14.6 H (3.8-10.6) k/uL RBC 3.63 L (4.30-5.90) m/uL Hgb 12.4 L (13.0-17.5) gm/dL Hct 37.1 L (39.0-53.0) % MCV 102.0 H (80.0-100.0) fL Plt Count 149 L (150-450) k/uL Neutrophils # 12.2 H (1.3-7.7) k/uL Sodium 135 L (137-145) mmol/L Potassium 5.9 H (3.5-5.1) mmol/L BUN 25 H (9-20) mg/dL Creatinine 1.42 H (0.66-1.25) mg/dL Glucose 160 H (74-99) mg/dL H & H 11/03/22 Range/Units 14:57 Hgb 12.4 L (13.0-17.5) gm/dL Hct 37.1 L (39.0-53.0) % Coagulation 11/03/22 Range/Units 17:00 INR 1.0 (<1.2) Result Diagrams: 11/03/22 14:57 11/03/22 14:57 - Diagnostic results Hip x-ray: report reviewed, image reviewed (Right hip x-ray demonstrates right hip intertrochanteric fracture) Assessment and Plan Assessment: 1. Right hip IT fracture Plan: 1. Right hip IT fracture - x-ray of the right hip does reveal right hip IT fracture. At this time we are recommending surgical intervention in the form of right hip IM nail. We have scheduled surgery for tomorrow, 11/04/2022right hip IM nail. Patient to remain nothing by mouth after midnight tonight. With hold blood thinners at this time. We will continue to follow patient during his stay in hospital. 2. Appreciate medical management 3. Pain management - morphine; [place] 4. DVT prophylaxis - with hold thinners at this time 5. GI prophylaxis - senna 6. PT/OT - remain nonweightbearing to the right lower extremity at this time 7. Encourage incentive spirometer use Time with Patient: Less than 30
[2022-11-03] MEDS ORDERED: HYDROcodone/APAP 7.5-325MG 1 EACH TAB PO PRN (18:04)
[2022-11-03] MEDS ORDERED: HYDROmorphone 1 MG/ML 1 ML SYRINGE IVP PRN (18:05)
[2022-11-03] MEDS ORDERED: DEXTROSE 50% SYRINGE 50 ML IVP ONE (18:24)
[2022-11-03] MEDS ORDERED: ALBUTEROL NEB (CONC) 2.5 MG/0.5 ML INHALATION ONE (18:24)
[2022-11-03] MEDS ORDERED: INSULIN REGULAR 100 UNIT/ML VIAL (IV) IV ONE (19:00)
[2022-11-03 19:45] LABS: Glucose,Whole Blood 171 mg/dL (70-110)
[2022-11-03] MEDS ORDERED: LORazepam 2 MG/ML INJ ONE (20:23)
[2022-11-03] MEDS ORDERED: ONDANSETRON 4 MG/2 ML VIAL IVP STA (20:34)
[2022-11-03] MEDS: CYCLOBENZAPRINE 10 MG TAB PO SCH (22:59)
[2022-11-03] MEDS ORDERED: SODIUM POLYSTYRENE SULFONATE 30 GM/120 ML BOTTLE RECTAL STA (23:50)
[2022-11-03] MEDS ORDERED: METOCLOPRAMIDE 5 MG/ML 2 ML VIAL IVP STA (23:51)
[2022-11-03 23:57] LABS: Basophils % (A) 0 %; Eosinophils % (A) 0 %; HCT 33.2 % (39.0-53.0); Lymphocytes # (A) 0.7 k/uL (1.0-4.8); Lymphocytes % (A) 6 %; MCH 33.8 pg (25.0-35.0); MCHC 33.1 g/dL (31.0-37.0); MCV 101.9 fL (80.0-100.0); Macrocytosis Slight; Monocytes # (A) 0.5 k/uL (0-1.0); Monocytes % (A) 5 %; Neutrophils # (A) 10.2 k/uL (1.3-7.7); Neutrophils % (A) 88 %; Platelet Count 159 k/uL (150-450); RBC 3.26 m/uL (4.30-5.90); RDW 13.3 % (11.5-15.5); WBC 11.7 k/uL (3.8-10.6)
--- NOTE | 2022-11-04 00:43 | P.CONS ---
History of Present Illness - Reason for Consult Consult date: 11/03/22 - History of Present Illness The patient is 72-year-old male with a PMH of CAD, type II DM, hypertension, chronic kidney disease, hyperlipidemia, who presented to the emergency room after a fall at home. The patient reports that he was in his home trying to undergo status there is low holding onto things with both hands when he lost his balance and fell, hitting the right side of his hip. He immediately had severe pain at the site of the injury. He denied experiencing head trauma or loss of consciousness. Reported ongoing pain of 5 out of 10 at the time of interview at the right hip. The patient also reported that since hospitalization, he has had 3 episodes of coffee-ground emesis as well as having one episode of tarry black stool yesterday. He denied any prior history of GI bleeding. evaluation in the emergency room was remarkable for potassium of 5.9 and subsequently 6.4, BUN 25, and creatinine 1.42. Hip x-ray revealed an acute mildly displaced intertrochanteric right femur fracture. Head/cervical spine CT was unremarkable. EKG revealed sinus rhythm at 69 bpm with T-wave inversion along with Q waves in inferior leads 2, 3, and aVF as well as precordial leads V4 to V6. Review of systems: Pertinent positives and negatives as discussed in HPI, a complete review of systems was performed and all other systems are negative. Physical examination: General: non toxic, no distress, appears at stated age, overweight Derm: no unusual rashes/lesions, warm Head: atraumatic, normocephalic, symmetric Eyes: EOMI, no lid lag, anicteric sclera, pupils equal round reactive to light ENT: Nose and ears atraumatic Neck: No cervical lymphadenopathy, trachea midline, supple Mouth: no lip lesion, mucus membranes moist Cardiovascular: S1S2 reg, no murmur, positive dorsalis pedis pulse bilateral, no edema Lungs: CTA bilateral, no rhonchi, no rales, no accessory muscle use Abdominal: soft, nontender to palpation, no guarding Ext: muscle strength 5 out of 5 in all 4 extremities grossly except for right lower extremity proximal strength with hip flexion or extension limited due to pain, no gross muscle atrophy, no contractures, Neuro: CN II-XI grossly intact, no gross focal neuro deficits Psych: Alert, oriented, appropriate affect Assessment/plan Hyperkalemia -Status post cocktail in the emergency room -Cardiac monitoring -Kayexalate ordered -IV fluids -Hold home lisinopril Coffee-ground emesis with black tarry stools -Obtain CBC -Check FOBT Right hip fracture, traumatic -Defer management including pain control and DVT prophylaxis to the primary surgery service Chronic conditions: Type II DM, hypertension, hyperlipidemia, chronic kidney disease -Continue home meds Past Medical History Past Medical History: Coronary Artery Disease (CAD), Cancer, Diabetes Mellitus, Hyperlipidemia, Hypertension, Myocardial Infarction (SD), Osteoarthritis (OA) Additional Past Medical History / Comment(s): Bladder cancer stage with treatment, in remission since 2020. IDDM type II, post polio syndrome,leg length discrepancy, bronchitis, chronic low back pain. Last Myocardial Infarction Date:: 07/23/19 History of Any Multi-Drug Resistant Organisms: None Reported Past Surgical History: Heart Catheterization With Stent, Orthopedic Surgery Additional Past Surgical History / Comment(s): Cystoscopy, TURBT x2, closure of patent urachus bladder tumor as , R leg surgery d/t polio-lengthening, cardiac stents 2018 Past Anesthesia/Blood Transfusion Reactions: No Reported Reaction Date of Last Stent Placement:: 07/23/19 Past Psychological History: No Psychological Hx Reported Additional Psychological History / Comment(s): Pt resides with his spouse. He is independent. He just started ambulating with a cane. Smoking Status: Former smoker Past Alcohol Use History: None Reported Additional Past Alcohol Use History / Comment(s): Pt started smoking in 1968 and quit 07/21/19. Prior ETOH abuse-pt states he hasnt had alcohol in months Past Drug Use History: None Reported - Past Family History Father History Unknown: Yes Mother Additional Family Medical History / Comment(s): Mother of in a MVA when pt was 15 yrs old. Brother(s) Additional Family Medical History / Comment(s): Pt has one brother who of a bowel problem and another brother that of a ruptured aneurysm. Medications and Allergies Home Medications Medication Instructions Recorded Confirmed Type Aspirin 81 mg PO DAILY #90 chewable 07/25/19 11/03/22 Rx metFORMIN HCL [metFORMIN HCL ER] 500 mg PO BID #60 tab 09/12/19 11/03/22 Rx Atorvastatin [Lipitor] 80 mg PO DAILY 05/13/20 11/03/22 History Loperamide [Imodium] 2 mg PO DAILY PRN 11/03/22 11/03/22 History Semaglutide [Ozempic] 0.25 mg SQ MANZANO 11/03/22 11/03/22 History Spironolactone [Aldactone] 25 mg PO DAILY 11/03/22 11/03/22 History carvediloL [Coreg*] 6.25 mg PO BID 11/03/22 11/03/22 History hydroCHLOROthiazide [Hydrodiuril] 12.5 mg PO DAILY 11/03/22 11/03/22 History lisinopriL [Zestril] 20 mg PO DAILY 11/03/22 11/03/22 History Allergies Allergy/AdvReac Type Severity Reaction Status Date / Time No Known Allergies Allergy Verified 11/03/22 17:35 Physical Exam Vitals: Vital Signs Temp Pulse Pulse Resp BP BP Pulse Ox 11/03/22 22:58 90 102/62 95 11/03/22 20:00 98.1 F 82 17 156/75 98 11/03/22 19:46 82 11/03/22 17:48 82 18 169/88 100 11/03/22 14:07 97.0 F L 69 18 214/105 97 Intake and Output 11/03/22 11/03/22 11/04/22 14:59 22:59 06:59 Other: Voiding Method Indwelling Catheter Weight 81.647 kg 81.647 kg Results CBC & Chem 7: 11/03/22 23:27 11/03/22 20:04 Labs: Abnormal Lab Results - Last 24 Hours (Table) 11/03/22 11/03/22 11/03/22 Range/Units 14:57 14:57 17:50 WBC 14.6 H (3.8-10.6) k/uL RBC 3.63 L (4.30-5.90) m/uL Hgb 12.4 L (13.0-17.5) gm/dL Hct 37.1 L (39.0-53.0) % MCV 102.0 H (80.0-100.0) fL Plt Count 149 L (150-450) k/uL Neutrophils # 12.2 H (1.3-7.7) k/uL Lymphocytes # (1.0-4.8) k/uL Sodium 135 L (137-145) mmol/L Potassium 5.9 H 6.4 H* (3.5-5.1) mmol/L BUN 25 H (9-20) mg/dL Creatinine 1.42 H (0.66-1.25) mg/dL Glucose 160 H (74-99) mg/dL POC Glucose (mg/dL) (70-110) mg/dL 11/03/22 11/03/22 11/03/22 Range/Units 19:43 20:04 23:27 WBC 11.7 H (3.8-10.6) k/uL RBC 3.26 L (4.30-5.90) m/uL Hgb 11.0 L (13.0-17.5) gm/dL Hct 33.2 L (39.0-53.0) % MCV 101.9 H (80.0-100.0) fL Plt Count (150-450) k/uL Neutrophils # 10.2 H (1.3-7.7) k/uL Lymphocytes # 0.7 L (1.0-4.8) k/uL Sodium (137-145) mmol/L Potassium 6.4 H* (3.5-5.1) mmol/L BUN (9-20) mg/dL Creatinine (0.66-1.25) mg/dL Glucose (74-99) mg/dL POC Glucose (mg/dL) 171 H (70-110) mg/dL
[2022-11-04] MEDS: SODIUM POLYSTYRENE SULFONATE 15 GM/60 ML BOTTLE PO SCH (00:54)
[2022-11-04] MEDS: HYDROmorphone 0.5 MG/0.5 ML SYRINGE IVP PRN ×6 (01:12→22:19)
[2022-11-04] MEDS ORDERED: ALBUTEROL NEBULIZED (CONC) 20 MG, SODIUM CHLORIDE 0.9% NEBULIZ 3 ML INHALATION ONE ×2 (02:00)
[2022-11-04] MEDS ORDERED: SODIUM BICARB 8.4% 50 ML SYR (1 MEQ/ML) IV STA (02:00)
[2022-11-04] MEDS ORDERED: INSULIN REGULAR 100 UNIT/ML VIAL (IM/SQ) SQ ONE (02:00)
[2022-11-04] MEDS ORDERED: DEXTROSE 50% SYRINGE 50 ML IVP STA (02:00)
[2022-11-04] MEDS ORDERED: SODIUM POLYSTYRENE SULFONATE 30 GM/120 ML BOTTLE RECTAL STA (02:02)
[2022-11-04] MEDS ORDERED: PANTOPRAZOLE 40 MG/10 ML VIAL IVP ONE (03:08)
[2022-11-04] MEDS ORDERED: ACETAMINOPHEN IV (For NPO) 1,000 MG in EMPTY BAG 1 BAG IVPB ONE (03:51)
[2022-11-04 04:09] LABS: African American GFR (CKD) 31 (>60 ml/min/1.73 sqM); Anion Gap 10 mmol/L; Blood Urea Nitrogen 36 mg/dL (9-20); Calcium 8.2 mg/dL (8.4-10.2); Carbon Dioxide 24 mmol/L (22-30); Chloride 102 mmol/L (98-107); Glucose 292 mg/dL (74-99); Non-African American GFR(CKD) 27 (>60 ml/min/1.73 sqM); Potassium 5.1 mmol/L (3.5-5.1); Sodium 136 mmol/L (137-145)
[2022-11-04 06:01] LABS: Glucose,Whole Blood 289 mg/dL (70-110)
[2022-11-04] MEDS: SENNOSIDES 8.6 MG TAB PO SCH (06:25)
[2022-11-04] MEDS: INSULIN ASPART (NovoLOG) 100 UNIT/ML VIAL SQ SCH ×4 (06:52→20:37)
--- NOTE | 2022-11-04 07:05 | P.PN ---
Progress Note - Text Progress Note Date: 11/04/22 Orthopedic Surgery Risk Review Dru Valverde is a 72 yo male presenting for evaluation of sudden onset Right hip pain, inability to ambulate after fall from standing. It was my pleasure to have seen and examined Dru Valverde. In our visit today we have had a chance to go over subjective complaints, physical examination findings and treatments including the natural course history without intervention and various interventional options. His imaging demonstrates Right hip fracture, IT 3 part. On physical exam, Dru Valverde demonstrates pain with motion of RLE, which is NV intact at this time. I have explained to the patient that this fracture needs stabilization. Based on the patients imaging, physical exam, and the rapid progression and disabling nature of her symptoms, at this time I recommend surgery in the form or a:Right hip intramedullary nail fixation I discussed the risk and benefits of this procedure at length with Dru Valverde. Questions were invited and answered, and the patient wishes to proceed as outlined below. Currently, I am recommendin. Right hip intramedullary nail fixation 2. Review of surgical risks and benefits as well as an educational packet on the proposed surgical procedure. Risks: All surgical procedures come with inherent risks, including those related to positioning, anesthesia, intraoperative findings, and postoperative complications. It is important to understand that surgery does not come with any guarantee of a successful outcome as complications and adverse events are always possible. The patient was given a handout discussing the surgical procedure and risks associated with the intervention, both of which were discussed with the patient. These risks include but are not limited to the following: - Experiencing same, different or even worse symptoms compared to before surgery. - Requiring further surgery or other forms of treatment presently or at some time in the future . - On an extreme but fortunately relatively rare basis severe complication such as blindness, stroke, heart attack, temporary and/or permanent nerve injury, paralysis, coma, or may occur, sometimes without known explanation. - Surgical complications may include but are not limited to risk of infection, fluid accumulation in the surgical dissection site, including a seroma or hematoma, that requires additional surgery, wound drainage, bleeding, new numbness or weakness, vision changes/loss, spinal fluid leakage, non-healing and/or infected incision, headaches, difficulty or inability to swallow, hoarseness, hemopneumothorax, pneumothorax, injury to nerves, spinal cord, blood vessels, lymphatics or other vital organs (i.e., bowel injury, injury to the great vessels); heterotopic bone formation; complications related to the hardware such as screws, rods, including misplaced hardware, device failure, hardware fracture/breakage, or hardware loosening; retained surgical instrumentations or devices and the need for further surgery. - Medical risks of the planned surgery include but are not limited to generalized Infections to the whole body or local areas outside of the surgical site (sepsis), heart attack, bleeding, anaphylaxis, meningitis, seizure, epilepsy, hearing loss, burn king, laceration of the head or other areas of the body, bruising, hypersensitivity of the skin, bladder over distension; allergic reaction; shoulder injury related to positioning; fat, blood and air clots to other areas of the body like heart, lungs, brain; failure of internal organs such as lungs, kidneys, liver and excessive bleeding. If blood transfusions are necessary, note that transfusions may cause intolerance reactions such as a naphylaxis or other complex reactions. Despite best efforts, the results of surgery might not heal in terms of bone, soft tissues such as skin, fascia, ligaments, and joints. [facility] has multiple operating rooms with single and overlapping rooms running daily. They currently function under the required guidelines as produced by the [facility] Finance Committee with regards to the overlapping rooms and will continue to comply with changes to this policy as they occur. The requirements include and are complied with as follows: (1) the critical portions of the overlapping rooms will not occur at the same time, (2) the attending physician will be physically present during the critical portions of the procedure and immediately available during the entire case, and (3) a back-up attending is designated should the primary attending not be immediately available. The patient has had a chance to review all the listed information, has been given print outs detailing this information, and has had all his/her questions answered to their satisfaction. It was my pleasure to have seen and examined Dru Valverde. In our visit today we have had a chance to go over my understanding of our patient's current condition, the natural course history without intervention and various interventional options. Questions were invited and answered, and the patient wishes to proceed as outlined above. I have seen and examined the patient for 25 minutes and we have spent more than 50% of the time in repeat and detailed counseling about the patient's condition, its natural course history with out and as much as can be predicted with surgery and re-review of various surgical treatment options. In conclusion, Dru Valverde requested we proceed with the above suggested surgery and are willing to accept risks and limitations of the suggested surgery as nature of the disease process and our best attempts at treatment for the condition. Thank you again for allowing us to be part of your patient's care. Please don't hesitate to contact me if you have any further questions. Signed and authenticated by: Ravi Alfaro [facility] [address] [facility], [address] [address]
[2022-11-04] MEDS ORDERED: SODIUM CHLORIDE 0.9% 500 ML 500 ML IV ONE ×4 (07:38→11:26)
[2022-11-04 08:00] LABS: HCT 31.8 % (39.0-53.0); HGB 10.8 gm/dL (13.0-17.5); MCH 34.1 pg (25.0-35.0); MCV 100.2 fL (80.0-100.0); Mean Platelet Volume 10.4; Platelet Count 158 k/uL (150-450); RBC 3.17 m/uL (4.30-5.90); WBC 12.1 k/uL (3.8-10.6)
[2022-11-04] MEDS: SODIUM CHLORIDE 0.9% 1,000 ML IV SCH ×2 (08:10→16:31)
[2022-11-04 08:19] LABS: African American GFR (CKD) 23 (>60 ml/min/1.73 sqM); Anion Gap 10 mmol/L; Blood Urea Nitrogen 39 mg/dL (9-20); Carbon Dioxide 24 mmol/L (22-30); Chloride 103 mmol/L (98-107); Glucose 267 mg/dL (74-99); Non-African American GFR(CKD) 20 (>60 ml/min/1.73 sqM); Potassium 5.4 mmol/L (3.5-5.1); Sodium 137 mmol/L (137-145)
[2022-11-04] MEDS ORDERED: CALCIUM GLUCONATE IN NACL 1 GM in SALINE 1 100ML.BAG IVPB ONE (09:00)
--- NOTE | 2022-11-04 09:14 | XR ---
EXAMINATION TYPE: XR abdomen acute w cxr DATE OF EXAM: 11/04/2022 8:41 AM INDICATION: Patient age:Male; 72 years old; Reason for study: emesis; COMPARISON: None. TECHNIQUE: Two radiographic views of the abdomen (upright and supine) and a frontal chest radiograph were obtained. FINDINGS CHEST: Lungs/Pleura: The lungs are clear. There is no evidence of pleural effusion, focal consolidation or p neumothorax. Mediastinum: Unremarkable. Vasculature: Normal. Heart: Normal in size. Musculoskeletal: The osseous structures are intact. Other findings: No significant. FINDINGS ABDOMEN: Bowel gas pattern: . Gaseous dilation of bowel in the abdomen including the stomach colon and small b owel. Abnormal calcifications: None. Musculoskeletal: Proximal right femur fracture. Other: None. IMPRESSION: 1. Gaseous dilation of bowel throughout the abdomen including right colon. Correlate for opioid pain relief for right hip fracture and ileus. If this concern for obstruction consider dedicated small mikey wel follow-through. 2. Proximal comminuted right femur fracture.
[2022-11-04] MEDS ORDERED: ONDANSETRON 4 MG/2 ML VIAL IVP PRN (09:43)
--- NOTE | 2022-11-04 09:51 | P.PN ---
Subjective Progress Note Date: 11/04/22 Patient is 72-year-old male with CAD, type II DM, hypertension, chronic kidney disease, hyperlipidemia, who presented to the emergency room after a fall at home. After hospitalization he developed coffee-ground emesis as well as having one episode of tarry black stool yesterday. HIn the emergency room he underwent an extensive evaluation. Labaratory analysis was remarkable for potassium of 5.9 (subsequently 6.4), BUN 25, and creatinine 1.42. Hip x-ray revealed an acute mildly displaced intertrochanteric right femur fracture. Head/cervical spine CT was unremarkable. EKG revealed sinus rhythm at 69 bpm with T-wave inversion along with Q waves in inferior leads 2, 3, and aVF as well as precordial leads V4 to V6. He was admitted for further monitoring. He was given multiple doses of kayexelate. He had decreased urine output overnight aong with conitnued vomting and then diarrhea. His renal function worsened. He was started on IV fluids. His aldactone, HCTZ, and cozaar remain held. Nephrology was consulted. At bedside. He complains of pain in his hip. He denies any chest pain or shortness of breath. He denied a chest pain in the last 30 days. He is not able to walk forcefully. Flight of stairs secondary to chronic weakness which is unchanged after his chemotherapy for bladder cancer. He denies any history of kidney problems. General: nontoxic, no distress, appears at stated age Derm: warm, dry Head: atraumatic, normocephalic, symmetric Eyes: EOMI, no lid lag, anicteric sclera Mouth: no lip lesion, mucus membranes moist Cardiovascular: S1S2 reg, no murmur, positive posterior tibial pulse bilateral, Lungs: Decreased bs bilateral, no rhonchi, no rales , no accessory muscle use Abdominal: soft, distended, nontender to palpation, no guarding, no appreciable organomegaly Ext: no gross muscle atrophy, no edema, no contractures Neuro: CN II-XI grossly intact, no focal neuro deficits Psych: Alert, oriented, appropriate affect Assessmnet/plan: 72 yp s/p right femur fracture - IM nailing today - Case discussed extensively with Dr. Tang and Dr. Saleem patients mortality rate increases for each 24 hours delay in surgery. Patient and are aware of renal failure and increased mortality with delay of surgery. Patient aware risk of needing temporary HD and worsening renal failure. After discussion of risks and benefits patient would like to proceed with surgery at this time. No additional testing necessary. Will recheck BMP post-op and provide with IV fluid. - pain control EDITH on CKD III, likely pre renal Hyperkalemia - hold aldactone, HCTZ, and cozaar - IV fluids - Calcium glucincate - wolf with strict I and O - Renal US - Consult nephrology. - repeat BMP at 1700 and in AM Intractable vomiting - ileus vs SBO - abd x-ray ordered- images reviewed by me dilated bowel, increased fecal burden, no free air, radiology read also reveiwed - if continues to vomit then CT scan to rule out obstruction and consider NGT Diarrhea - due to rectal kayexelate Anemia, acute blood loss - GI bleed ruled out - check iron studies - follow CBC DM 2 with hyperglycemia - likely due to stress - hold ozempic - SSI, add levemir once eating - hold metformin - last A1C 7.4 in December 2021 Chronic: HTN HLD CAD with prior SC s/p bladder cancer in remission - meds reviewed. Thank you for allowing us to participate in the care of this pleasant patient. Do not hesitate to contact us with questions. Someone can be reached from the [facility] hospitalist group all hours of the day at [phone] or via [employer]. Objective - Vital Signs Vital signs: Vital Signs Temp 97.8 F 11/04/22 07:55 Pulse 90 11/04/22 07:55 Resp 16 11/04/22 07:55 BP 98/63 11/04/22 07:55 Pulse Ox 94 L 11/04/22 08:18 FiO2 Intake & Output 11/03/22 11/04/22 11/04/22 18:59 06:59 18:59 Output Total 175 Balance -175 Weight 81.647 kg Output: Urine 175 Other: Voiding Method Indwelling Catheter # Bowel Movements 1 - Labs CBC & Chem 7: 11/04/22 07:43 11/04/22 07:43 Labs: Abnormal Lab Results - Last 24 Hours (Table) 11/03/22 11/03/22 11/03/22 Range/Units 14:57 14:57 17:50 WBC 14.6 H (3.8-10.6) k/uL RBC 3.63 L (4.30-5.90) m/uL Hgb 12.4 L (13.0-17.5) gm/dL Hct 37.1 L (39.0-53.0) % MCV 102.0 H (80.0-100.0) fL Plt Count 149 L (150-450) k/uL Neutrophils # 12.2 H (1.3-7.7) k/uL Lymphocytes # (1.0-4.8) k/uL Sodium 135 L (137-145) mmol/L Potassium 5.9 H 6.4 H* (3.5-5.1) mmol/L BUN 25 H (9-20) mg/dL Creatinine 1.42 H (0.66-1.25) mg/dL Glucose 160 H (74-99) mg/dL POC Glucose (mg/dL) (70-110) mg/dL Calcium (8.4-10.2) mg/dL 11/03/22 11/03/22 11/03/22 Range/Units 19:43 20:04 23:27 WBC 11.7 H (3.8-10.6) k/uL RBC 3.26 L (4.30-5.90) m/uL Hgb 11.0 L (13.0-17.5) gm/dL Hct 33.2 L (39.0-53.0) % MCV 101.9 H (80.0-100.0) fL Plt Count (150-450) k/uL Neutrophils # 10.2 H (1.3-7.7) k/uL Lymphocytes # 0.7 L (1.0-4.8) k/uL Sodium (137-145) mmol/L Potassium 6.4 H* (3.5-5.1) mmol/L BUN (9-20) mg/dL Creatinine (0.66-1.25) mg/dL Glucose (74-99) mg/dL POC Glucose (mg/dL) 171 H (70-110) mg/dL Calcium (8.4-10.2) mg/dL 11/04/22 11/04/22 11/04/22 Range/Units 03:42 05:59 07:43 WBC 12.1 H (3.8-10.6) k/uL RBC 3.17 L (4.30-5.90) m/uL Hgb 10.8 L (13.0-17.5) gm/dL Hct 31.8 L (39.0-53.0) % MCV 100.2 H (80.0-100.0) fL Plt Count (150-450) k/uL Neutrophils # (1.3-7.7) k/uL Lymphocytes # (1.0-4.8) k/uL Sodium 136 L (137-145) mmol/L Potassium (3.5-5.1) mmol/L BUN 36 H (9-20) mg/dL Creatinine 2.38 H (0.66-1.25) mg/dL Glucose 292 H (74-99) mg/dL POC Glucose (mg/dL) 289 H (70-110) mg/dL Calcium 8.2 L (8.4-10.2) mg/dL 11/04/22 Range/Units 07:43 WBC (3.8-10.6) k/uL RBC (4.30-5.90) m/uL Hgb (13.0-17.5) gm/dL Hct (39.0-53.0) % MCV (80.0-100.0) fL Plt Count (150-450) k/uL Neutrophils # (1.3-7.7) k/uL Lymphocytes # (1.0-4.8) k/uL Sodium (137-145) mmol/L Potassium 5.4 H (3.5-5.1) mmol/L BUN 39 H (9-20) mg/dL Creatinine 2.98 H (0.66-1.25) mg/dL Glucose 267 H (74-99) mg/dL POC Glucose (mg/dL) (70-110) mg/dL Calcium 8.0 L (8.4-10.2) mg/dL
[2022-11-04] MEDS ORDERED: ONDANSETRON 4 MG/2 ML VIAL IVP ONE (10:20)
[2022-11-04] MEDS ORDERED: ePHEDrine 50 MG/ML 1 ML VIAL ONE (10:21)
[2022-11-04] MEDS ORDERED: KETAMINE 10 MG/ML 20 ML VIAL ONE (10:21)
[2022-11-04] MEDS ORDERED: PHENYLEPHRINE-0.9% NACL SYG 1,000 MCG/10 ML SYRINGE ONE (10:21)
[2022-11-04] MEDS ORDERED: MIDAZOLAM 2 MG/2 ML VIAL ONE (10:21)
[2022-11-04] MEDS ORDERED: SODIUM CHLORIDE 0.9% 50 ML with ceFAZolin 2,000 MG IV ONE ×2 (10:26)
--- NOTE | 2022-11-04 11:43 | FL ---
Intraoperative/procedural fluoroscopic services were provided. Total fluoroscopy time is 56 seconds w ith a total of 12 submitted images to PACS. Please see the operative/procedural note for further deta ils.
[2022-11-04] MEDS ORDERED: HYDROcodone/APAP 5-325MG 1 EACH TAB PO PRN (11:46)
[2022-11-04] MEDS ORDERED: HYDROmorphone 0.5 MG/0.5 ML SYRINGE IVP PRN (11:46)
[2022-11-04] MEDS ORDERED: NALOXONE 0.4 MG/ML 1 ML VIAL IV PRN (11:46)
[2022-11-04] MEDS ORDERED: MAGNESIUM HYDROXIDE 2,400 MG/10 ML CUP PO PRN (11:46)
[2022-11-04 11:54] LABS: Glucose,Whole Blood 180 mg/dL (70-110)
[2022-11-04] MEDS ORDERED: HYDROmorphone 0.5 MG/0.5 ML SYRINGE IVP ONE (12:00)
--- NOTE | 2022-11-04 13:19 | P.OP ---
Date of Procedure: 11/04/22 Preoperative Diagnosis: 1. Right intertrochanteric fracture 3 part, displaced 2. s/p ffs 3. Complex medical patient Postoperative Diagnosis: 1. Right intertrochanteric fracture 3 part, displaced 2. s/p ffs 3. Complex medical patient Procedure(s) Performed: 1. Intramedullary nail fixation of right hip Implants: -[employer] [id number] Anesthesia: spinal Surgeon: Ravi Tang [employer] Technician #1: Arnel Leon (Was present and assisted in all aspects of the case from positioning to dressing placement) Estimated Blood Loss (ml): 100 IV fluids (ml): 500 Urine output (ml): 50 Pathology: none sent Condition: stable Disposition: PACU Indications for Procedure: 72 yo male with complex medical history presented with pain in his right hip after a fall from standing at home. Pt has a hx of polio when he was young as well as surgery on his right lower leg. He is also having abdominal pain, emesis and loose stools. Pt unable to ambulate after the fall due to the pain in his hip which is debilitating and he is unable to tolerate any further imaging or work up due to the pain in his hip currently. We discussed at length different options and pt is on board with surgical fixation. His is at bedisde and agrees. We discussed risks as outlined in the risk review. He is willing to proceed with surgery. Description of Procedure: The patient was seen and examined in the preoperative area. All preoperative protocols were followed. Informed consent was obtained risks and benefits of the procedure were discussed at length. Risks including bleeding infection damage to the surrounding tissue and risk of reoperation were discussed with the patient. Risk of anesthesia up to and including was a discussed with the patient. These are outlined in the risk reviewed. They were willing to accept these risks and all of the risks of surgery. The patient was given a weight- based dose of antibiotics in the form of 2 g Ancef. The patient was seen and evaluated by the anesthesia team who deemed them fit for surgery. The site was marked, the patient was willing to proceed with the procedure. The patient was transferred to the operative suite by the Department of anesthesia. There were then drifted off to sleep by the department of anesthesia andGETA anesthesia was used. Once adequate anesthesia had been obtained the patient was carefully transferred to the operative bed. All bony prominences were padded accordingly. SCDs were placed on the nonoperative lower extremities. Arms were well padded. the patient was transferred to the Shira table and her right leg was placed in a Shira boot and secured to the table left leg was placed in a well-leg ren well padded and secured. The post was placed and she was secured appropriately. arms were placed on arm boards and well-padded Preoperative briefing was done with the operative team and everyone was ready for the procedure to start. Xray used to reduce the fracture with Shira table. The patients right leg was then prepped and draped in the normal sterile fashion. Timeout was then performed and all parties in agreement with the procedure to be performed. X-ray was then used to olivia 2 cm proximal to the GT. Skin incision made in line with the femur and blunt dissection taken down to the deep facia which was split. Blut dissetion then taken down to the tip of the GT and the sharp awl used. Optimal starting point achieved on AP and Lateral imaging. Awl was then advaced into the proximal femur. Ball tip guidewire was then passed into the femur. It was confirmed on Ap and laterl. Opening reamer then passed followed by 9, 11 and 13 mm reamers. Then the nail was selected and impacted into place over the wire using flouroscopic guidance. Once in position the lateral guide was placed and skin incisoin made in line with the femur over the lateral aspect. Dissection taken down through the tensor facia which was split inline with its fibers. The guide was seated against bone. Pin was placed through guide for the lag screw to be with in 10mm on Ap and lateral of the subchondarl bone. This was then measured. Appropriate sized compression screw then selected and drilled. Then the lag screw drilled. Lag screw placed over the wire followed by the compression screw. About 7 mm of compression was achieved. Good alignment in AP and lateral shown. The nail was then locked proximally. Distal locking screw was then placed through the jig using similar technique. Screw was drilled and measured and placed. AP and lateral confirmed good placement and good fracture reduction as well as stability in ROM. The guid was then removed from the nail. The wound was then copiously irrigated with normal sterile saline final AP and lateral fluoroscopic imaging confirmed good placement of pins as well as reduction of fracture. The deep fascia was then closed with 0 Vicryl superficial closed 2-0 Vicryl and skin closed with skin jen the wound edges approximated very well. The wound was then cleaned and dressed with an optifoam dressing. The patient was then transferred back to their hospital bed. There were awakened by department of anesthesia having tolerated the procedure very well with no complications. The patient was then transported to the postoperative care unit in stable condition.
[2022-11-04 14:49] LABS: Basophils % (A) 0 %; Eosinophils % (A) 0 %; HCT 28.9 % (39.0-53.0); HGB 9.4 gm/dL (13.0-17.5); Lymphocytes # (A) 0.7 k/uL (1.0-4.8); Lymphocytes % (A) 4 %; MCH 33.9 pg (25.0-35.0); MCHC 32.7 g/dL (31.0-37.0); MCV 103.8 fL (80.0-100.0); Macrocytosis Slight; Mean Platelet Volume 10.9; Monocytes # (A) 0.9 k/uL (0-1.0); Monocytes % (A) 5 %; Neutrophils # (A) 15.9 k/uL (1.3-7.7); Neutrophils % (A) 89 %; Platelet Count 140 k/uL (150-450); RBC 2.79 m/uL (4.30-5.90); WBC 17.8 k/uL (3.8-10.6)
--- NOTE | 2022-11-04 15:21 | US ---
EXAMINATION TYPE: US renals and bladder DATE OF EXAM: 11/04/2022 COMPARISON: CT CLINICAL HISTORY: edith. EDITH. Hx of bladder cancer, chemo, radiation. EXAM MEASUREMENTS: Right Kidney: 10.9 x 4.8 x 4.9 cm Left Kidney: 11.3 x 5.0 x 5.9 cm Left kidney imaged before right kidney. Right Kidney: Hyperechoic focus seen: 0.4 x 0.4 x 0.4 cm. Left Kidney: No hydronephrosis or masses seen Bladder: Not distended. Catheter in place. Bilateral Jets seen: No IMPRESSION: No evidence of solid renal mass or obstruction. Urinary bladder empty during the exam.
[2022-11-04 16:58] LABS: Glucose,Whole Blood 269 mg/dL (70-110)
[2022-11-04 17:13] LABS: African American GFR (CKD) 22 (>60 ml/min/1.73 sqM); Anion Gap 10 mmol/L; Blood Urea Nitrogen 46 mg/dL (9-20); Calcium 7.5 mg/dL (8.4-10.2); Carbon Dioxide 23 mmol/L (22-30); Chloride 103 mmol/L (98-107); Glucose 248 mg/dL (74-99); Non-African American GFR(CKD) 19 (>60 ml/min/1.73 sqM); Potassium 4.4 mmol/L (3.5-5.1); Sodium 136 mmol/L (137-145)
[2022-11-04] MEDS ORDERED: FUROSEMIDE 10 MG/ML 4 ML VIAL IV STA (17:48)
[2022-11-04 20:31] LABS: Glucose,Whole Blood 161 mg/dL (70-110)
[2022-11-04] MEDS: CYCLOBENZAPRINE 10 MG TAB PO SCH (20:37)
[2022-11-04] MEDS: PANTOPRAZOLE 40 MG/10 ML VIAL IVP SCH (20:37)
[2022-11-04] MEDS: SENNOSIDES-DOCUSATE SODIUM 1 EACH TAB PO SCH (20:38)
[2022-11-05] MEDS: SODIUM CHLORIDE 0.9% 1,000 ML IV SCH ×3 (00:56→16:25)
[2022-11-05] MEDS: HYDROmorphone 0.5 MG/0.5 ML SYRINGE IVP PRN ×5 (02:17→20:43)
[2022-11-05 06:14] LABS: Glucose,Whole Blood 209 mg/dL (70-110)
[2022-11-05] MEDS: INSULIN ASPART (NovoLOG) 100 UNIT/ML VIAL SQ SCH ×4 (06:28→21:24)
[2022-11-05 07:04] LABS: HCT 24.1 % (39.0-53.0); MCH 33.7 pg (25.0-35.0); MCHC 32.7 g/dL (31.0-37.0); MCV 103.2 fL (80.0-100.0); Macrocytosis Slight; Mean Platelet Volume 10.4; Platelet Count 103 k/uL (150-450); RBC 2.34 m/uL (4.30-5.90); RDW 13.3 % (11.5-15.5); WBC 11.7 k/uL (3.8-10.6)
[2022-11-05 07:05] LABS: HGB 7.9 gm/dL (13.0-17.5)
[2022-11-05 07:08] LABS: African American GFR (CKD) 31 (>60 ml/min/1.73 sqM); Anion Gap 6 mmol/L; Blood Urea Nitrogen 41 mg/dL (9-20); Calcium 6.8 mg/dL (8.4-10.2); Carbon Dioxide 24 mmol/L (22-30); Chloride 104 mmol/L (98-107); Glucose 204 mg/dL (74-99); Non-African American GFR(CKD) 27 (>60 ml/min/1.73 sqM); Potassium 4.6 mmol/L (3.5-5.1); Sodium 134 mmol/L (137-145)
[2022-11-05] MEDS ORDERED: HYDROcodone/APAP 10-325MG 1 EACH TAB PO PRN (09:12)
--- NOTE | 2022-11-05 09:12 | P.PN ---
Subjective Progress Note Date: 11/05/22 Principal diagnosis: Right hip IT fracture Patient was seen at bedside this morning lying in semirecumbent position. Patient says he is currently in a moderate amount of pain. Patient states most of the pain is located at the right hip over his incisions. Patient says he has not been up since surgery was performed yesterday. Patient currently does have a Montalvo/catheter in place. Patient says she is looking forward to working with physical therapy later today. Patient says he does have a walker and cane at home. Patient does live with at home. Patient denies chest pain, fever, shortness breath, nausea, vomiting, change in vision, loss of bowel/bladder control. Objective - Vital Signs Vital signs: Vital Signs Temp 98.5 F 11/05/22 08:00 Pulse 109 H 11/05/22 08:00 Resp 17 11/05/22 08:00 BP 101/54 11/05/22 08:00 Pulse Ox 90 L 11/05/22 08:00 FiO2 Intake & Output 11/04/22 11/05/22 11/05/22 18:59 06:59 18:59 Intake Total 350 258 Output Total 350 600 Balance 0 -342 Intake: IV 350 Oral 258 Output: Urine 250 600 Estimated Blood Loss 100 Other: Voiding Method Indwelling Catheter - Exam Inspection: Right leg presents with 2 surgical dressings over the right lateral hip. Incisions appear to be clean, dry, intact this time. Casm[place] are well aligned. Negative for any open fractures, significant erythema/ulcers/ecchymosis. Sensation: Sensation is equal, symmetric, bilaterally intact throughout the upper and lower extremities. Palpation: Patient has moderate TTP along the right hip over incisions. Nontender to palpation throughout rest of exam Range of motion: Patient has full range of motion in left lower extremity and bilateral upper extremities on exam. Patient has full range of motion in right lower extremity and ankle plantar/dorsiflexion. He does have limited range of motion secondary to pain/weakness in the right lower extremity in hip flexion/e xtension and knee flexion/extension. Motor: 5/5 in all major motor groups in bilateral upper extremities and left lower extremity on exam. Right ankle 4/5 in resisted dorsi/plantar flexion. Right lower extremity hip/knee motor exam 4-/5 in resisted flexion/extension Neurovascular status: Radial pulses intact, 2+ bilaterally. Cap refill under 3 seconds in digits of upper extremities. Dorsalis pedis pulses present bilaterally. Feet are lukewarm to touch Special tests: Negative Homans bilaterally. - Labs CBC & Chem 7: 11/05/22 06:33 11/05/22 06:33 Labs: Abnormal Lab Results - Last 24 Hours (Table) 11/04/22 11/04/22 11/04/22 Range/Units 11:52 14:19 16:50 WBC 17.8 H (3.8-10.6) k/uL RBC 2.79 L (4.30-5.90) m/uL Hgb 9.4 L (13.0-17.5) gm/dL Hct 28.9 L (39.0-53.0) % MCV 103.8 H (80.0-100.0) fL Plt Count 140 L (150-450) k/uL Neutrophils # 15.9 H (1.3-7.7) k/uL Lymphocytes # 0.7 L (1.0-4.8) k/uL Sodium 136 L (137-145) mmol/L BUN 46 H (9-20) mg/dL Creatinine 3.11 H (0.66-1.25) mg/dL Glucose 248 H (74-99) mg/dL POC Glucose (mg/dL) 180 H (70-110) mg/dL Calcium 7.5 L (8.4-10.2) mg/dL 11/04/22 11/04/22 11/05/22 Range/Units 16:51 20:29 06:12 WBC (3.8-10.6) k/uL RBC (4.30-5.90) m/uL Hgb (13.0-17.5) gm/dL Hct (39.0-53.0) % MCV (80.0-100.0) fL Plt Count (150-450) k/uL Neutrophils # (1.3-7.7) k/uL Lymphocytes # (1.0-4.8) k/uL Sodium (137-145) mmol/L BUN (9-20) mg/dL Creatinine (0.66-1.25) mg/dL Glucose (74-99) mg/dL POC Glucose (mg/dL) 269 H 161 H 209 H (70-110) mg/dL Calcium (8.4-10.2) mg/dL 11/05/22 11/05/22 Range/Units 06:33 06:33 WBC 11.7 H (3.8-10.6) k/uL RBC 2.34 L (4.30-5.90) m/uL Hgb 7.9 L D (13.0-17.5) gm/dL Hct 24.1 L (39.0-53.0) % MCV 103.2 H (80.0-100.0) fL Plt Count 103 L (150-450) k/uL Neutrophils # (1.3-7.7) k/uL Lymphocytes # (1.0-4.8) k/uL Sodium 134 L (137-145) mmol/L BUN 41 H (9-20) mg/dL Creatinine 2.36 H (0.66-1.25) mg/dL Glucose 204 H (74-99) mg/dL POC Glucose (mg/dL) (70-110) mg/dL Calcium 6.8 L (8.4-10.2) mg/dL Assessment and Plan Assessment: 1. Right hip IT fracture -Postoperative day 1 status post right hip IM nail Plan: 1. Right hip IT fracture - surgery performed yesterday, 11/04/2022 right hip IM nail. Patient stable at bedside this morning. Patient says he is in a moderate pain currently. Incision appears to be clean, dry, intact at this time. Patient is to work with physical therapy of today. We will continue to follow patient during his stay in hospital. 2. Appreciate medical management 3. Pain management - dilaudi; [place]; flexeril 4. DVT prophylaxis - Lovenox 5. GI prophylaxis - senna 6. PT/OT - weightbearing as tolerated with walker and assistance 7. Encourage incentive spirometer use 8. Discharge planning - plan for discharge to rehab versus home with health services tomorrow versus Sunday. Time with Patient: Less than 30
[2022-11-05 09:22] LABS: % Iron Saturation 13.52 (15.00-50.00); Magnesium 1.4 mg/dL (1.5-2.4)
[2022-11-05] MEDS: ENOXAPARIN 30 MG/0.3 ML SYRINGE SQ SCH (09:41)
[2022-11-05] MEDS: SENNOSIDES 8.6 MG TAB PO SCH (09:41)
[2022-11-05] MEDS: PANTOPRAZOLE 40 MG/10 ML VIAL IVP SCH ×2 (09:41→20:44)
--- NOTE | 2022-11-05 09:57 | P.PN ---
Subjective Progress Note Date: 11/05/22 Patient is 72-year-old male with CAD, type II DM, hypertension, chronic kidney disease, hyperlipidemia, who presented to the emergency room after a fall at home. After hospitalization he developed coffee-ground emesis as well as having one episode of tarry black stool yesterday. HIn the emergency room he underwent an extensive evaluation. Labaratory analysis was remarkable for potassium of 5.9 (subsequently 6.4), BUN 25, and creatinine 1.42. Hip x-ray revealed an acute mildly displaced intertrochanteric right femur fracture. Head/cervical spine CT was unremarkable. EKG revealed sinus rhythm at 69 bpm with T-wave inversion along with Q waves in inferior leads 2, 3, and aVF as well as precordial leads V4 to V6. He was admitted for further monitoring. He was given multiple doses of kayexelate. He had decreased urine output overnight aong with conitnued vomting and then diarrhea. His renal function worsened. He was started on IV fluids. His aldactone, HCTZ, and cozaar remain held. Nephrology was consulted. He underwent IM nailing of fracture on 11/04/22. Patient seen and examined at bedside. He complains of a sore throat. He denies chest pain, congestion, and shortness of breath. Pain is well controlled in his leg. No more vomiting. General: nontoxic, no distress, appears at stated age Derm: warm, dry, dressing in place right hip Head: atraumatic, normocephalic, symmetric Eyes: EOMI, no lid lag, anicteric sclera Mouth: no lip lesion, mucus membranes moist Cardiovascular: S1S2 reg, no murmur, positive posterior tibial pulse bilateral, Lungs: Decreased bs bilateral, no rhonchi, no rales , no accessory muscle use Abdominal: soft, distended, nontender to palpation, no guarding, no appreciable organomegaly Ext: no gross muscle atrophy, no edema, no contractures Neuro: CN II-XI grossly intact, no focal neuro deficits Psych: Alert, oriented, appropriate affect Assessment/plan: 72 yp s/p right femur fracture s/p IM nailing 11/04/22 EDITH on CKD III, likely pre renal Hyperkalemia, resolved - Continue to hold aldactone, HCTZ, and cozaar - Continue IVF at the same rate - wolf with strict I and O - Renal US without hydro - nephrology recs appreciated - repeat BMP in AM Anemia, acute blood loss with Fe deficiency , worsening Leukocytosis, stress induced - hold hold off transfusion until HgB less than 7 - GI bleed ruled out - start oral iron - follow CBC Intractable vomiting, resolved Ileus, improved Diarrhea, resolved - Bowel regiment given fecal burden on x-ray DM 2 with hyperglycemia - likely due to stress - hold ozempic - SSI, add levemir once eating - hold metformin - last A1C 7.4 in December 2021 Chronic: HTN HLD CAD with prior NC s/p bladder cancer in remission - meds reviewed. BMP, CBC, Mg from today reviewed. Check CBC, BMP, and Mg in AM Thank you for allowing us to participate in the care of this pleasant patient. Do not hesitate to contact us with questions. Someone can be reached from the [facility] [place] [facility] all hours of the day at [phone] or via [email or web address]. Active Medications Generic Name Dose Route Start Last Admin Trade Name Freq PRN Reason Stop Dose Admin Hydrocodone Bitart/Acetaminophen 1 each 11/05/22 09:12 Hydrocodone/Apap 10-325mg 1 Each Tab PO Q6HR PRN Pain Cyclobenzaprine HCl 10 mg 11/03/22 21:00 11/04/22 20:37 Cyclobenzaprine 10 Mg Tab PO 10 mg HS GURDEEP Administration Enoxaparin Sodium 30 mg 11/05/22 09:00 11/05/22 09:41 Enoxaparin 30 Mg/0.3 Ml Syringe SQ 30 mg DAILY GURDEEP Administration Ferrous Sulfate 325 mg 11/06/22 09:00 Ferrous Sulfate 325 Mg Tab PO DAILY GURDEEP Hydromorphone HCl 0.25 mg 11/04/22 11:46 Hydromorphone 0.5 Mg/0.5 Ml Syringe IVP Q3HR PRN Pain Scale 4 to 6 Hydromorphone HCl 0.5 mg 11/04/22 11:46 11/05/22 06:28 Hydromorphone 0.5 Mg/0.5 Ml Syringe IVP 0.5 mg Q3HR PRN Administration Pain Scale 7 to 10 Sodium Chloride 1,000 mls @ 120 mls/hr 11/04/22 07:45 11/05/22 09:41 Saline 0.9% IV 120 mls/hr .Q8H20M [facility] Administration Magnesium Sulfate/Dextrose 1 100 mls @ 100 mls/hr 11/05/22 10:00 gm/ IV Solution IVPB 11/05/22 11:59 Q1H [facility] Insulin Aspart 0 unit 11/04/22 07:30 11/05/22 06:28 Insulin Aspart (Novolog) 100 Unit/Ml Vial SQ 6 unit ACHS [facility] Administration Protocol Insulin Detemir 10 unit 11/05/22 09:55 Insulin Detemir (Levemir) 100 Unit/Ml Syr SQ DAILY@0700 [facility] Magnesium Hydroxide 2,400 mg 11/04/22 11:46 Magnesium Hydroxide 2,400 Mg/10 Ml Cup PO DAILY PRN Constipation Naloxone HCl 0.2 mg 11/04/22 11:46 Naloxone 0.4 Mg/Ml 1 Ml Vial IV Q2M PRN Opioid Reversal Ondansetron HCl 4 mg 11/04/22 09:43 Ondansetron 4 Mg/2 Ml Vial IVP Q6H PRN Nausea Pantoprazole Sodium 40 mg 11/04/22 21:00 11/05/22 09:41 Pantoprazole 40 Mg/10 Ml Vial IVP 40 mg BID [facility] Administration Senna 8.6 mg 11/04/22 09:00 11/05/22 09:41 Sennosides 8.6 Mg Tab PO 8.6 mg DAILY [facility] Administration Senna/Docusate Sodium 2 each 11/04/22 21:00 11/04/22 20:38 Sennosides-Docusate Sodium 1 Each Tab PO Not Given [facility] Objective - Vital Signs Vital signs: Vital Signs Temp 98.5 F 11/05/22 08:00 Pulse 109 H 11/05/22 08:00 Resp 17 11/05/22 08:00 BP 101/54 11/05/22 08:00 Pulse Ox 90 L 11/05/22 08:00 FiO2 Intake & Output 11/04/22 11/05/22 11/05/22 18:59 06:59 18:59 Intake Total 350 258 Output Total 350 600 Balance 0 -342 Intake: IV 350 Oral 258 Output: Urine 250 600 Estimated Blood Loss 100 Other: Voiding Method Indwelling Catheter - Labs CBC & Chem 7: 11/05/22 06:33 11/05/22 06:33 Labs: Abnormal Lab Results - Last 24 Hours (Table) 11/04/22 11/04/22 11/04/22 Range/Units 11:52 14:19 16:50 WBC 17.8 H (3.8-10.6) k/uL RBC 2.79 L (4.30-5.90) m/uL Hgb 9.4 L (13.0-17.5) gm/dL Hct 28.9 L (39.0-53.0) % MCV 103.8 H (80.0-100.0) fL Plt Count 140 L (150-450) k/uL Neutrophils # 15.9 H (1.3-7.7) k/uL Lymphocytes # 0.7 L (1.0-4.8) k/uL Sodium 136 L (137-145) mmol/L BUN 46 H (9-20) mg/dL Creatinine 3.11 H (0.66-1.25) mg/dL Glucose 248 H (74-99) mg/dL POC Glucose (mg/dL) 180 H (70-110) mg/dL Hemoglobin A1c (0.0-6.0) % Calcium 7.5 L (8.4-10.2) mg/dL Magnesium (1.5-2.4) mg/dL Iron (65-175) ug/dL TIBC (228-460) ug/dL % Saturation (15.00-50.00) Transferrin (204.0-354.0) mg/dL 11/04/22 11/04/22 11/05/22 Range/Units 16:51 20:29 06:12 WBC (3.8-10.6) k/uL RBC (4.30-5.90) m/uL Hgb (13.0-17.5) gm/dL Hct (39.0-53.0) % MCV (80.0-100.0) fL Plt Count (150-450) k/uL Neutrophils # (1.3-7.7) k/uL Lymphocytes # (1.0-4.8) k/uL Sodium (137-145) mmol/L BUN (9-20) mg/dL Creatinine (0.66-1.25) mg/dL Glucose (74-99) mg/dL POC Glucose (mg/dL) 269 H 161 H 209 H (70-110) mg/dL Hemoglobin A1c (0.0-6.0) % Calcium (8.4-10.2) mg/dL Magnesium (1.5-2.4) mg/dL Iron (65-175) ug/dL TIBC (228-460) ug/dL % Saturation (15.00-50.00) Transferrin (204.0-354.0) mg/dL 11/05/22 11/05/22 11/05/22 Range/Units 06:33 06:33 06:33 WBC 11.7 H (3.8-10.6) k/uL RBC 2.34 L (4.30-5.90) m/uL Hgb 7.9 L D (13.0-17.5) gm/dL Hct 24.1 L (39.0-53.0) % MCV 103.2 H (80.0-100.0) fL Plt Count 103 L (150-450) k/uL Neutrophils # (1.3-7.7) k/uL Lymphocytes # (1.0-4.8) k/uL Sodium 134 L (137-145) mmol/L BUN 41 H (9-20) mg/dL Creatinine 2.36 H (0.66-1.25) mg/dL Glucose 204 H (74-99) mg/dL POC Glucose (mg/dL) (70-110) mg/dL Hemoglobin A1c 7.6 H (0.0-6.0) % Calcium 6.8 L (8.4-10.2) mg/dL Magnesium (1.5-2.4) mg/dL Iron (65-175) ug/dL TIBC (228-460) ug/dL % Saturation (15.00-50.00) Transferrin (204.0-354.0) mg/dL 11/05/22 Range/Units 06:33 WBC (3.8-10.6) k/uL RBC (4.30-5.90) m/uL Hgb (13.0-17.5) gm/dL Hct (39.0-53.0) % MCV (80.0-100.0) fL Plt Count (150-450) k/uL Neutrophils # (1.3-7.7) k/uL Lymphocytes # (1.0-4.8) k/uL Sodium (137-145) mmol/L BUN (9-20) mg/dL Creatinine (0.66-1.25) mg/dL Glucose (74-99) mg/dL POC Glucose (mg/dL) (70-110) mg/dL Hemoglobin A1c (0.0-6.0) % Calcium (8.4-10.2) mg/dL Magnesium 1.4 L (1.5-2.4) mg/dL Iron 30 L (65-175) ug/dL TIBC 221 L (228-460) ug/dL % Saturation 13.52 L (15.00-50.00) Transferrin 158.0 L (204.0-354.0) mg/dL
[2022-11-05] MEDS: MAGNESIUM SULFATE-D5W PMX 1 GM in DEXTROSE/WATER 1 100ML.BAG IVPB SCH ×2 (10:12→11:11)
[2022-11-05] MEDS: INSULIN DETEMIR (LEVEMIR) 100 UNIT/ML SYR SQ SCH ×2 (10:12→10:14)
--- NOTE | 2022-11-05 10:55 | P.PN ---
Subjective Progress Note Date: 11/05/22 Principal diagnosis: This is 72-year-old male seen in consultation because of acute kidney injury.He came in because of a accidental fall and right hip fracture. He underwent surg tori yesterday. His admission creatinine on 11/03/2022 was 1.4, potassium was 5.9 which worsened to 6.4 later. Blood sugars were in the 170-300 range. Hemoglobin was 12.4, was down to 10.8 on 11/04/2022. His home medication included metformin spironolactone and hydrochlorothiazide He was given Kayexalate and had a lot of loose stools preop. Postop hemoglobin is 9.4 yesterday Creatinines has significantly worsened to 3.11 yesterday and improved to 2.36 this morning. His baseline creatinine is 1.1 on 08/23/2021 and 1.5 on 07/22/2022. A urinalysis had 1+ proteinuria on 06/28/2028 but none recently. His blood pressure on admission was as low as 98/63, but other times it is in 110 to 140s Currently postop this morning he is doing well no complaints at all. No nausea vomiting abdominal pain no diarrhea. He is eating. Denies any chest pain shortness of breath. 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 Also post polio syndrome with leg length discrepancy. Objective - Vital Signs Vital signs: Vital Signs Temp 98.5 F 11/05/22 08:00 Pulse 109 H 11/05/22 08:00 Resp 17 11/05/22 08:00 BP 101/54 11/05/22 08:00 Pulse Ox 90 L 11/05/22 08:00 FiO2 Intake & Output 11/04/22 11/05/22 11/05/22 18:59 06:59 18:59 Intake Total 350 258 Output Total 350 600 Balance 0 -342 Intake: IV 350 Oral 258 Output: Urine 250 600 Estimated Blood Loss 100 Other: Voiding Method Indwelling Catheter Awake alert oriented No JVP neck is supple no facial asymmetry Lungs clear to auscultation good air entry bilaterally Heart sounds unremarkable Abdomen soft nontender Extremity exam was no edema Neurologically awake alert oriented. - Labs CBC & Chem 7: 11/05/22 06:33 11/05/22 06:33 Labs: Abnormal Lab Results - Last 24 Hours (Table) 11/04/22 11/04/22 11/04/22 Range/Units 11:52 14:19 16:50 WBC 17.8 H (3.8-10.6) k/uL RBC 2.79 L (4.30-5.90) m/uL Hgb 9.4 L (13.0-17.5) gm/dL Hct 28.9 L (39.0-53.0) % MCV 103.8 H (80.0-100.0) fL Plt Count 140 L (150-450) k/uL Neutrophils # 15.9 H (1.3-7.7) k/uL Lymphocytes # 0.7 L (1.0-4.8) k/uL Sodium 136 L (137-145) mmol/L BUN 46 H (9-20) mg/dL Creatinine 3.11 H (0.66-1.25) mg/dL Glucose 248 H (74-99) mg/dL POC Glucose (mg/dL) 180 H (70-110) mg/dL Hemoglobin A1c (0.0-6.0) % Calcium 7.5 L (8.4-10.2) mg/dL Magnesium (1.5-2.4) mg/dL Iron (65-175) ug/dL TIBC (228-460) ug/dL % Saturation (15.00-50.00) Transferrin (204.0-354.0) mg/dL 11/04/22 11/04/22 11/05/22 Range/Units 16:51 20:29 06:12 WBC (3.8-10.6) k/uL RBC (4.30-5.90) m/uL Hgb (13.0-17.5) gm/dL Hct (39.0-53.0) % MCV (80.0-100.0) fL Plt Count (150-450) k/uL Neutrophils # (1.3-7.7) k/uL Lymphocytes # (1.0-4.8) k/uL Sodium (137-145) mmol/L BUN (9-20) mg/dL Creatinine (0.66-1.25) mg/dL Glucose (74-99) mg/dL POC Glucose (mg/dL) 269 H 161 H 209 H (70-110) mg/dL Hemoglobin A1c (0.0-6.0) % Calcium (8.4-10.2) mg/dL Magnesium (1.5-2.4) mg/dL Iron (65-175) ug/dL TIBC (228-460) ug/dL % Saturation (15.00-50.00) Transferrin (204.0-354.0) mg/dL 11/05/22 11/05/22 11/05/22 Range/Units 06:33 06:33 06:33 WBC 11.7 H (3.8-10.6) k/uL RBC 2.34 L (4.30-5.90) m/uL Hgb 7.9 L D (13.0-17.5) gm/dL Hct 24.1 L (39.0-53.0) % MCV 103.2 H (80.0-100.0) fL Plt Count 103 L (150-450) k/uL Neutrophils # (1.3-7.7) k/uL Lymphocytes # (1.0-4.8) k/uL Sodium 134 L (137-145) mmol/L BUN 41 H (9-20) mg/dL Creatinine 2.36 H (0.66-1.25) mg/dL Glucose 204 H (74-99) mg/dL POC Glucose (mg/dL) (70-110) mg/dL Hemoglobin A1c 7.6 H (0.0-6.0) % Calcium 6.8 L (8.4-10.2) mg/dL Magnesium (1.5-2.4) mg/dL Iron (65-175) ug/dL TIBC (228-460) ug/dL % Saturation (15.00-50.00) Transferrin (204.0-354.0) mg/dL 11/05/22 Range/Units 06:33 WBC (3.8-10.6) k/uL RBC (4.30-5.90) m/uL Hgb (13.0-17.5) gm/dL Hct (39.0-53.0) % MCV (80.0-100.0) fL Plt Count (150-450) k/uL Neutrophils # (1.3-7.7) k/uL Lymphocytes # (1.0-4.8) k/uL Sodium (137-145) mmol/L BUN (9-20) mg/dL Creatinine (0.66-1.25) mg/dL Glucose (74-99) mg/dL POC Glucose (mg/dL) (70-110) mg/dL Hemoglobin A1c (0.0-6.0) % Calcium (8.4-10.2) mg/dL Magnesium 1.4 L (1.5-2.4) mg/dL Iron 30 L (65-175) ug/dL TIBC 221 L (228-460) ug/dL % Saturation 13.52 L (15.00-50.00) Transferrin 158.0 L (204.0-354.0) mg/dL Assessment and Plan Assessment: Impression 1. Acute kidney injury secondary to combination of fall with possibly bleeding and slightly low blood pressure and improving now. 2. Hyperkalemia secondary to combination of some bleeding probably at the site of's fracture as well as medication including spironolactone and lisinopril resolved. 3. Chronic kidney disease stage III, mostly nephrosclerosis. GFR between 48-59 in 2021. Trace proteinuria likely diabetic nephropathy as a major cause 4. History of diabetes since 2019 with 1+ proteinuria 5. History of CA bladder, status post TURBT and chemo and radiation 6. History of coronary artery disease. 7. Anemia hemoglobin went down from 12.4 on admission to 7.9, secondary to blood loss from fracture and surgery. 8. Iron deficiency saturation 13% on 11/05/2022 this morning Recommendation 1. IV. Ferrlecit 125 mg daily for 3 doses 2. Hold HEDY inhibitor for the next few days until creatinine down to baseline. 3. Virtual controlled 4. Check labs again tomorrow Thank you for this consultation we'll continue to follow
[2022-11-05 11:39] LABS: Glucose,Whole Blood 232 mg/dL (70-110)
[2022-11-05] MEDS: SODIUM FERRIC GLUCONAT-SUCROSE 125 MG in SODIUM CHLORIDE 0.9% 100 ML IVPB SCH (13:21)
[2022-11-05 16:12] LABS: Glucose,Whole Blood 185 mg/dL (70-110)
[2022-11-05] MEDS: CYCLOBENZAPRINE 10 MG TAB PO SCH (20:43)
[2022-11-05] MEDS: SENNOSIDES-DOCUSATE SODIUM 1 EACH TAB PO SCH (20:43)
[2022-11-05 21:00] LABS: Glucose,Whole Blood 214 mg/dL (70-110)
[2022-11-06] MEDS: SODIUM CHLORIDE 0.9% 1,000 ML IV SCH ×2 (02:11→18:45)
[2022-11-06] MEDS: HYDROmorphone 0.5 MG/0.5 ML SYRINGE IVP PRN ×2 (02:13→22:32)
[2022-11-06 04:44] LABS: HCT 22.5 % (39.0-53.0); HGB 7.6 gm/dL (13.0-17.5); MCH 34.1 pg (25.0-35.0); MCHC 33.7 g/dL (31.0-37.0); MCV 101.3 fL (80.0-100.0); Macrocytosis Slight; Platelet Count 111 k/uL (150-450); RBC 2.22 m/uL (4.30-5.90); RDW 12.9 % (11.5-15.5); WBC 11.5 k/uL (3.8-10.6)
[2022-11-06 04:57] LABS: African American GFR (CKD) 60 (>60 ml/min/1.73 sqM); Anion Gap 3 mmol/L; Blood Urea Nitrogen 25 mg/dL (9-20); Carbon Dioxide 24 mmol/L (22-30); Chloride 108 mmol/L (98-107); Glucose 124 mg/dL (74-99); Magnesium 1.9 mg/dL (1.6-2.3); Non-African American GFR(CKD) 52 (>60 ml/min/1.73 sqM); Potassium 4.4 mmol/L (3.5-5.1); Sodium 135 mmol/L (137-145)
[2022-11-06 05:50] LABS: Glucose,Whole Blood 146 mg/dL (70-110)
[2022-11-06] MEDS: INSULIN ASPART (NovoLOG) 100 UNIT/ML VIAL SQ SCH ×4 (06:24→21:21)
[2022-11-06] MEDS: INSULIN DETEMIR (LEVEMIR) 100 UNIT/ML SYR SQ SCH (06:29)
--- NOTE | 2022-11-06 07:49 | P.PN ---
Subjective Progress Note Date: 11/06/22 Principal diagnosis: Right hip fracture Patient seen and examined this morning. Patient was resting in bed. He states he continues to have pain and right lower extremity with activity. Patient is still requiring IV medication for pain management. Medications will be reviewed . Surgical dressing to right hip is clean dry and intact. Patient denies any numbness or tingling to bilateral lower extremities. Encouraged patient to continue to work with physical therapy. Patient states he has been ambulatory with walker, requiring assistance. Patient may be discharged to subacute rehab pending medical clearance. Patient has remained afebrile, denies nausea/vomiting, chest pain. Objective - Vital Signs Vital signs: Vital Signs Temp 98.7 F 11/06/22 01:27 Pulse 101 H 11/06/22 01:27 Resp 17 11/06/22 01:27 BP 186/71 11/06/22 01:27 Pulse Ox 93 L 11/06/22 01:27 FiO2 Intake & Output 11/05/22 11/06/22 11/06/22 18:59 06:59 18:59 Intake Total 1260 Output Total 1800 1000 Balance -540 -1000 Intake: Intake, IV Titration 1260 Amount Magnesium Sulfate-D5w Pmx 200 1 gm In Dextrose/Water 1 100ml.bag @ 100 mls/hr IVPB Q1H GURDEEP Rx#: [id number] Sodium Chloride 0.9% 1, 960 000 ml @ 120 mls/hr IV . Q8H20M GURDEEP Rx#:[id number] Sodium Ferric Gluconat- 100 Sucrose 125 mg In Sodium Chloride 0.9% 100 ml @ 100 mls/hr IVPB DAILY GURDEEP Rx#:[id number] Output: Urine 1800 1000 Other: Voiding Method Indwelling Catheter # Bowel Movements 1 - Exam Inspection: Right leg presents with 2 surgical dressings over the right lateral hip. Incisions appear to be clean, dry, intact this time. Rhonda are well aligned. Negative for any open fractures, significant erythema/ulcers/ecchymosis. Sensation: Sensation is equal, symmetric, bilaterally intact throughout the upper and lower extremities. Palpation: Patient has moderate TTP along the right hip over incisions. Nontender to palpation throughout rest of exam Range of motion: Patient has full range of motion in left lower extremity and bilateral upper extremities on exam. Patient has full range of motion in right lower extremity and ankle plantar/dorsiflexion. He does have limited range of motion secondary to pain/weakness in the right lower extremity in hip flexion/extension and knee flexion/extension. Motor: 5/5 in all major motor groups in bilateral upper extremities and left lower extremity on exam. Right ankle 4/5 in resisted dorsi/plantar flexion. Right lower extremity hip/knee motor exam 4-/5 in resisted flexion/extension Neurovascular status: Radial pulses intact, 2+ bilaterally. Cap refill under 3 seconds in digits of upper extremities. Dorsalis pedis pulses present bilaterally. Feet are lukewarm to touch Special tests: Negative Homans bilaterally. - Labs CBC & Chem 7: 11/06/22 03:54 11/06/22 03:54 Labs: Abnormal Lab Results - Last 24 Hours (Table) 11/05/22 11/05/22 11/05/22 Range/Units 06:33 06:33 11:37 WBC (3.8-10.6) k/uL RBC (4.30-5.90) m/uL Hgb (13.0-17.5) gm/dL Hct (39.0-53.0) % MCV (80.0-100.0) fL Plt Count (150-450) k/uL Sodium (137-145) mmol/L Chloride (98-107) mmol/L BUN (9-20) mg/dL Creatinine (0.66-1.25) mg/dL Glucose (74-99) mg/dL POC Glucose (mg/dL) 232 H (70-110) mg/dL Hemoglobin A1c 7.6 H (0.0-6.0) % Calcium (8.4-10.2) mg/dL Magnesium 1.4 L (1.5-2.4) mg/dL Iron 30 L (65-175) ug/dL TIBC 221 L (228-460) ug/dL % Saturation 13.52 L (15.00-50.00) Transferrin 158.0 L (204.0-354.0) mg/dL 11/05/22 11/05/22 11/06/22 Range/Units 16:09 20:59 03:54 WBC 11.5 H (3.8-10.6) k/uL RBC 2.22 L (4.30-5.90) m/uL Hgb 7.6 L (13.0-17.5) gm/dL Hct 22.5 L (39.0-53.0) % MCV 101.3 H (80.0-100.0) fL Plt Count 111 L (150-450) k/uL Sodium (137-145) mmol/L Chloride (98-107) mmol/L BUN (9-20) mg/dL Creatinine (0.66-1.25) mg/dL Glucose (74-99) mg/dL POC Glucose (mg/dL) 185 H 214 H (70-110) mg/dL Hemoglobin A1c (0.0-6.0) % Calcium (8.4-10.2) mg/dL Magnesium (1.5-2.4) mg/dL Iron (65-175) ug/dL TIBC (228-460) ug/dL % Saturation (15.00-50.00) Transferrin (204.0-354.0) mg/dL 11/06/22 11/06/22 Range/Units 03:54 05:49 WBC (3.8-10.6) k/uL RBC (4.30-5.90) m/uL Hgb (13.0-17.5) gm/dL Hct (39.0-53.0) % MCV (80.0-100.0) fL Plt Count (150-450) k/uL Sodium 135 L (137-145) mmol/L Chloride 108 H (98-107) mmol/L BUN 25 H (9-20) mg/dL Creatinine 1.37 H (0.66-1.25) mg/dL Glucose 124 H (74-99) mg/dL POC Glucose (mg/dL) 146 H (70-110) mg/dL Hemoglobin A1c (0.0-6.0) % Calcium 7.0 L (8.4-10.2) mg/dL Magnesium (1.5-2.4) mg/dL Iron (65-175) ug/dL TIBC (228-460) ug/dL % Saturation (15.00-50.00) Transferrin (204.0-354.0) mg/dL Assessment and Plan Assessment: -Postoperative day 2: status post right hip IM nail Right hip IT fracture Plan: Plan: -Appreciate hospice care sales consultant and team management. -Activity: Ambulate QID, OOB all meals, WBAT. Use walker or cane if needed for stability. -Daily PT/OT, increase ambulation strength and balance. -Pain control: Adequate at this time -Meds: reviewed -GI ppx: senna, Miralax -DVT PPX: Lovenox -Hygiene: Shower today. Maintain dressing clean and dry. -Encourage IS 10x/hr -Dispo: Anticipate discharge to [facility], possibly today if cleared by medicine *I reviewed and discussed this case with my attending Dr. Tang, whom has reviewed this chart and films and is in agreement with assessment and plan of care as outlined above. I have personally seen and examined the patient, performed the documentation and the assessment and plan as written. Number of minutes spent on the visit: 15m.
[2022-11-06] MEDS: SENNOSIDES 8.6 MG TAB PO SCH (08:26)
[2022-11-06] MEDS: PANTOPRAZOLE 40 MG/10 ML VIAL IVP SCH ×2 (08:26→21:23)
[2022-11-06] MEDS: SODIUM FERRIC GLUCONAT-SUCROSE 125 MG in SODIUM CHLORIDE 0.9% 100 ML IVPB SCH (08:26)
[2022-11-06] MEDS: FERROUS SULFATE 325 MG TAB PO SCH (08:26)
[2022-11-06] MEDS: ENOXAPARIN 30 MG/0.3 ML SYRINGE SQ SCH (08:26)
[2022-11-06] MEDS: HYDROcodone/APAP 10-325MG 1 EACH TAB PO SCH ×3 (09:13→21:22)
[2022-11-06 11:52] LABS: Glucose,Whole Blood 202 mg/dL (70-110)
--- NOTE | 2022-11-06 12:12 | P.DS ---
Providers Date of admission: 11/03/22 16:52 Expected date of discharge: 11/06/22 Attending physician: Ravi Tang, Consults: 11/03/22 16:52 Consult Physician Routine Consulting Provider: Shakira Savage Consult Reason/Comments: medicine consult Do you want consulting provider notified?: Yes 11/04/22 08:50 Consult Physician Routine Consulting Provider: Amol Colby Consult Reason/Comments: EDITH Do you want consulting provider notified?: Yes Primary care physician: Sukhjinder Rubio Hospital Course: Date of admission: 11/03/2022 Date of discharge: 11/06/2022 Admission diagnosis: Right hip IT fracture Discharge diagnosis: Same Attending physician: Dr. Tang Surgical procedures: Right hip IM nail Brief history: Patient is a 72-year-old male with a history of right hip IT fracture status post fall. At this point patient has failed conservative treatment measures and has opted to proceed with a elective right hip IM nail. Hospital course: Details of patient's surgery can be found in operative report. Patient tolerated the procedure well and was subsequently transported to orthopedic floor. Patient's orthopeidc and medical care was provided daily. Patient had daily laboratory tests performed for evaluation of overall blood counts. Patient had daily physical therapy to include strengthening range of motion as well as education with walker ambulation. Patient was treated with Lovenox for their postoperative DVT prophylaxis during their inpatient stay. Patient was noted to have a relatively uneventful postoperative course. Patient reported satisfactory pain control with oral pain medications by postoperative day 2. Patient showed satisfactory progress with physical therapy. Patient moved steadily through the program and had no difficulty meeting the goals by postoperative day 2. Given patient's otherwise satisfactory course and having met physical therapy goals, plan is to discharge patient to rehab on postoperative day 2. Discharge condition/disposition: Patient will be discharged to rehab in stable condition. Discharge medications: Instructions are given on resumption of patient's normal daily medications per primary care recommendation, in addition patient will be prescribed [place]; senna; Duricef; Lovenox. Discharge instructions: 1. Wound care and infection precautions, keep incision dry and covered while showering, no lotions, creams, moisturizers. No soaking, tubs, pools, hottubs. Do not scrub over the incision. 2. Weight-bear as tolerated with walker / cane until follow-up. 3. Ice and elevate when necessary. Do not exceed 20 minutes per hour with ice pack. 4. Utilize compression sleeve until seen at first follow up appointment. 5. Nursing care. 6. Physical therapy. 7. Pain meds and anticoagulants per prescription. 8. Pain medication has potential to cause constipation. Increase oral fluid and fiber intake. Contact primary care provider if you have not had a bowel movement within 48 hours after discharge 9. No anti-inflammatory medication until discussed at first post operative visit, this including Motrin, Aleve, Mobic, Diclofenac. 10. Follow up in office at [address] Ravi Tang. 11. Follow up with your primary care doctor 7-10 days after discharge. 12. Contact [facility] with any questions, . Assessment: Right hip IT fracture Procedures: Right hip IM nail Patient Condition at Discharge: Fair Plan - Discharge Summary New Discharge Prescriptions: New cefaDROXiL [Duricef] 500 mg PO Q12HR 5 Days #10 cap HYDROcodone/APAP 10-325MG [[place] 10-325] 1 tab PO Q6HR PRN #21 tab PRN Reason: Pain Enoxaparin [Lovenox] 30 mg SQ DAILY #21 each Sennosides/Docusate Sodium [Senna Plus 8.6-50 mg Softgel] 1 each PO DAILY #20 cap No Action RX: Aspirin 81 mg PO DAILY #90 chewable RX: metFORMIN HCL [metFORMIN HCL ER] 500 mg PO BID #60 tab RX: Atorvastatin [Lipitor] 80 mg PO DAILY RX: hydroCHLOROthiazide [Hydrodiuril] 12.5 mg PO DAILY Loperamide [Imodium] 2 mg PO DAILY PRN PRN Reason: Diarrhea Semaglutide [Ozempic] 0.25 mg SQ MANZANO RX: Spironolactone [Aldactone] 25 mg PO DAILY RX: carvediloL [Coreg*] 6.25 mg PO BID RX: lisinopriL [Zestril] 20 mg PO DAILY Discharge Medication List RX: Aspirin 81 mg PO DAILY #90 chewable 07/25/19 [Rx] RX: metFORMIN HCL [metFORMIN HCL ER] 500 mg PO BID #60 tab 09/12/19 [Rx] RX: Atorvastatin [Lipitor] 80 mg PO DAILY 05/13/20 [History] Loperamide [Imodium] 2 mg PO DAILY PRN 11/03/22 [History] RX: Spironolactone [Aldactone] 25 mg PO DAILY 11/03/22 [History] RX: carvediloL [Coreg*] 6.25 mg PO BID 11/03/22 [History] RX: hydroCHLOROthiazide [Hydrodiuril] 12.5 mg PO DAILY 11/03/22 [History] RX: lisinopriL [Zestril] 20 mg PO DAILY 11/03/22 [History] Semaglutide [Ozempic] 0.25 mg SQ MANZANO 11/03/22 [History] Enoxaparin [Lovenox] 30 mg SQ DAILY #21 each 11/06/22 [Rx] HYDROcodone/APAP 10-325MG [[place] 10-325] 1 tab PO Q6HR PRN #21 tab 11/06/22 [Rx] Sennosides/Docusate Sodium [Senna Plus 8.6-50 mg Softgel] 1 each PO DAILY #20 cap 11/06/22 [Rx] cefaDROXiL [Duricef] 500 mg PO Q12HR 5 Days #10 cap 11/06/22 [Rx] Follow up Appointment(s)/Referral(s): Sukhjinder Rubio MD [Primary Care Provider] - 1-2 days Ravi Tang DO [Doctor of Osteopathic Medicine] - 2 Weeks Activity/Diet/Wound Care/Special Instructions: Orthopedic Discharge Instructions: 1. Wound care and infection precautions, keep incision dry and covered while showering, no lotions, creams, moisturizers. No soaking, pools, hot tubs. Do not scrub over incision. 2. Weight-bear as tolerated with walker / cane until follow-up. 3. Ice and elevate when necessary. Do not exceed 20 minutes per hour with ice pack. 4. Pain medications per prescription. 5. Anticoagulants per prescription. 6. Pain medication has potential to cause constipation. Increase oral fluid and fiber intake. Contact primary care provider if you have not had a bowel movement within 48 hours after discharge. 7. No anti-inflammatory medication until discussed at first post operative visit, this including Motrin, Aleve, Mobic, Diclofenac. 8. Follow up in office at [address] Ravi Tang 9. Follow up with your primary care doctor 7-10 days after discharge. 10. Contact [facility] with any questions, . Keep incision clean, dry, intact.optifoam dressing may removed in 5 days, , 11/09/2022. Discharge Disposition: TRANSFER TO SNF/ECF
--- NOTE | 2022-11-06 13:43 | P.PN ---
Subjective Progress Note Date: 11/06/22 Patient seen and examined at bedside. Patient denied chest pain shortness of breath nausea vomiting fevers or chills patient will likely be discharged today. Objective - Vital Signs Vital signs: Vital Signs Temp 99.3 F 11/06/22 07:00 Pulse 81 11/06/22 08:00 Resp 16 11/06/22 08:00 BP 144/61 11/06/22 07:00 Pulse Ox 93 L 11/06/22 07:35 FiO2 Intake & Output 11/05/22 11/06/22 11/06/22 18:59 06:59 18:59 Intake Total 1260 Output Total 1800 1000 Balance -540 -1000 Intake: Intake, IV Titration 1260 Amount Magnesium Sulfate-D5w Pmx 200 1 gm In Dextrose/Water 1 100ml.bag @ 100 mls/hr IVPB Q1H GURDEEP Rx#: [id number] Sodium Chloride 0.9% 1, 960 000 ml @ 120 mls/hr IV . Q8H20M GURDEEP Rx#:[id number] Sodium Ferric Gluconat- 100 Sucrose 125 mg In Sodium Chloride 0.9% 100 ml @ 100 mls/hr IVPB DAILY GURDEEP Rx#:[id number] Output: Urine 1800 1000 Other: Voiding Method Indwelling Catheter Indwelling Catheter # Bowel Movements 1 - Exam General: [non toxic], [no distress], [appears at stated age] Derm: [warm], [dry] Head: [atraumatic], [normocephalic], [symmetric] Eyes: [EOMI], [no lid lag], [anicteric sclera] Mouth: [no lip lesion], [mucus membranes moist] Cardiovascular: [S1S2 reg], [no murmur], [positive posterior tibial pulse bilateral], Lungs: [CTA bilateral], [no rhonchi, no rales] , [no accessory muscle use] Abdominal: [soft], [ nontender to palpation], [no guarding], [no appreciable organomegaly] Ext: [no gross muscle atrophy], [no edema], [no contractures] Neuro: [ CN II-XI grossly intact], [no focal neuro deficits] Psych: [Alert], [oriented], [appropriate affect] - Labs CBC & Chem 7: 11/06/22 03:54 11/06/22 03:54 Labs: Abnormal Lab Results - Last 24 Hours (Table) 11/05/22 11/05/22 11/06/22 Range/Units 16:09 20:59 03:54 WBC 11.5 H (3.8-10.6) k/uL RBC 2.22 L (4.30-5.90) m/uL Hgb 7.6 L (13.0-17.5) gm/dL Hct 22.5 L (39.0-53.0) % MCV 101.3 H (80.0-100.0) fL Plt Count 111 L (150-450) k/uL Sodium (137-145) mmol/L Chloride (98-107) mmol/L BUN (9-20) mg/dL Creatinine (0.66-1.25) mg/dL Glucose (74-99) mg/dL POC Glucose (mg/dL) 185 H 214 H (70-110) mg/dL Calcium (8.4-10.2) mg/dL 11/06/22 11/06/22 11/06/22 Range/Units 03:54 05:49 11:51 WBC (3.8-10.6) k/uL RBC (4.30-5.90) m/uL Hgb (13.0-17.5) gm/dL Hct (39.0-53.0) % MCV (80.0-100.0) fL Plt Count (150-450) k/uL Sodium 135 L (137-145) mmol/L Chloride 108 H (98-107) mmol/L BUN 25 H (9-20) mg/dL Creatinine 1.37 H (0.66-1.25) mg/dL Glucose 124 H (74-99) mg/dL POC Glucose (mg/dL) 146 H 202 H (70-110) mg/dL Calcium 7.0 L (8.4-10.2) mg/dL Assessment and Plan Assessment: 72 yp s/p right femur fracture s/p IM nailing 11/04/22 EDITH on CKD III, likely pre renal Hyperkalemia, resolved - Continue to hold aldactone, HCTZ, and cozaar - Continue IVF at the same rate - wolf with strict I and O - Renal US without hydro - nephrology following Anemia, acute blood loss with Fe deficiency , stable at 7.6 Leukocytosis, stress induced - hold hold off transfusion until HgB less than 7 - start oral iron - follow CBC Intractable vomiting, resolved Ileus, improved Diarrhea, resolved - Bowel regiment given fecal burden on x-ray DM 2 with hyperglycemia - likely due to stress - hold ozempic - SSI, add levemir once eating - hold metformin - last A1C 7.4 in December 2021 Chronic: HTN HLD CAD with prior [place] s/p bladder cancer in remission - meds reviewed. Thank you for allowing us to participate in the care of this pleasant patient. Do not hesitate to contact us with questions. Someone can be reached from the [facility] hospitalist group all hours of the day at [phone] or via [employer].
--- NOTE | 2022-11-06 14:13 | P.PN ---
Subjective This is 72-year-old male seen in consultation because of acute kidney injury.He came in because of a accidental fall and right hip fracture. S/p intramedullary nail fixation Right hip on 11/04/22. His admission creatinine on 11/03/2022 was 1.4, potassium was 5.9 which worsened to 6.4 later. Blood sugars were elevated. His home medication included metformin spironolactone and hydrochlorothiazide. Renal function has now improved. Creatinine down to 1.37today. S/p IVF. Receiving IV iron 24 hr UOP 2.8L. Patient has indwelling wolf catheter. Objective - Vital Signs Vital signs: Vital Signs Temp 99.3 F 11/06/22 07:00 Pulse 81 11/06/22 08:00 Resp 16 11/06/22 08:00 BP 144/61 11/06/22 07:00 Pulse Ox 93 L 11/06/22 07:35 FiO2 Intake & Output 11/05/22 11/06/22 11/06/22 18:59 06:59 18:59 Intake Total 1260 Output Total 1800 1000 Balance -540 -1000 Intake: Intake, IV Titration 1260 Amount Magnesium Sulfate-D5w Pmx 200 1 gm In Dextrose/Water 1 100ml.bag @ 100 mls/hr IVPB Q1H GURDEEP Rx#: [id number] Sodium Chloride 0.9% 1, 960 000 ml @ 120 mls/hr IV . Q8H20M GURDEEP Rx#:[id number] Sodium Ferric Gluconat- 100 Sucrose 125 mg In Sodium Chloride 0.9% 100 ml @ 100 mls/hr IVPB DAILY GURDEEP Rx#:[id number] Output: Urine 1800 1000 Other: Voiding Method Indwelling Catheter Indwelling Catheter # Bowel Movements 1 - Exam Awake, comfortable. No distress. Lungs are clear Heart sounds are heard, no murmum [place] is soft. Extremities show no edema. PHOTOGRAPH INSPECTOR exam grossly intact. - Labs CBC & Chem 7: 11/06/22 03:54 11/06/22 03:54 Labs: Abnormal Lab Results - Last 24 Hours (Table) 11/05/22 11/05/22 11/06/22 Range/Units 16:09 20:59 03:54 WBC 11.5 H (3.8-10.6) k/uL RBC 2.22 L (4.30-5.90) m/uL Hgb 7.6 L (13.0-17.5) gm/dL Hct 22.5 L (39.0-53.0) % MCV 101.3 H (80.0-100.0) fL Plt Count 111 L (150-450) k/uL Sodium (137-145) mmol/L Chloride (98-107) mmol/L BUN (9-20) mg/dL Creatinine (0.66-1.25) mg/dL Glucose (74-99) mg/dL POC Glucose (mg/dL) 185 H 214 H (70-110) mg/dL Calcium (8.4-10.2) mg/dL 11/06/22 11/06/22 11/06/22 Range/Units 03:54 05:49 11:51 WBC (3.8-10.6) k/uL RBC (4.30-5.90) m/uL Hgb (13.0-17.5) gm/dL Hct (39.0-53.0) % MCV (80.0-100.0) fL Plt Count (150-450) k/uL Sodium 135 L (137-145) mmol/L Chloride 108 H (98-107) mmol/L BUN 25 H (9-20) mg/dL Creatinine 1.37 H (0.66-1.25) mg/dL Glucose 124 H (74-99) mg/dL POC Glucose (mg/dL) 146 H 202 H (70-110) mg/dL Calcium 7.0 L (8.4-10.2) mg/dL Assessment and Plan Assessment: . Acute kidney injury secondary to combination of fall with possibly bleeding and slightly low blood pressure and improving now. 2. Hyperkalemia secondary to combination of some bleeding probably at the site of's fracture as well as medication including spironolactone and lisinopril resolved. 3. Chronic kidney disease stage III, mostly nephrosclerosis. GFR between 48-59 in 2021. Trace proteinuria likely diabetic nephropathy as a major cause 4. History of diabetes since 2019 with 1+ proteinuria 5. History of CA bladder, status post TURBT and chemo and radiation 6. History of coronary artery disease. 7. Anemia hemoglobin went down from 12.4 on admission to 7.9, secondary to blood loss from fracture and surgery. 8. Iron deficiency saturation 13% on 11/05/2022, on IV iron. Plan: Monitor labs. Decrease IVF if tolerating oral intake.
[2022-11-06 14:45] LABS: Basophils % (A) 0 %; Eosinophils # (A) 0.1 k/uL (0-0.7); Eosinophils % (A) 1 %; HGB 7.4 gm/dL (13.0-17.5); Lymphocytes # (A) 0.5 k/uL (1.0-4.8); Lymphocytes % (A) 5 %; MCH 32.9 pg (25.0-35.0); MCV 102.7 fL (80.0-100.0); Macrocytosis Slight; Mean Platelet Volume 11.2; Monocytes # (A) 0.6 k/uL (0-1.0); Monocytes % (A) 6 %; Neutrophils # (A) 8.5 k/uL (1.3-7.7); Neutrophils % (A) 86 %; Platelet Count 117 k/uL (150-450); RBC 2.24 m/uL (4.30-5.90); WBC 9.9 k/uL (3.8-10.6)
[2022-11-06 16:28] LABS: Glucose,Whole Blood 333 mg/dL (70-110)
[2022-11-06] MEDS: CALCIUM CARB-VIT D 500 MG-5 MCG TAB PO SCH (18:44)
[2022-11-06 21:17] LABS: Glucose,Whole Blood 120 mg/dL (70-110)
[2022-11-06] MEDS: SENNOSIDES-DOCUSATE SODIUM 1 EACH TAB PO SCH (21:23)
[2022-11-06] MEDS: CYCLOBENZAPRINE 10 MG TAB PO SCH (21:23)
[2022-11-07] MEDS: SODIUM CHLORIDE 0.9% 1,000 ML IV SCH ×2 (02:04→11:14)
[2022-11-07] MEDS: HYDROcodone/APAP 10-325MG 1 EACH TAB PO SCH ×4 (03:25→21:11)
[2022-11-07 06:05] LABS: Glucose,Whole Blood 101 mg/dL (70-110)
[2022-11-07] MEDS: INSULIN ASPART (NovoLOG) 100 UNIT/ML VIAL SQ SCH ×4 (06:53→21:10)
[2022-11-07] MEDS: CALCIUM CARB-VIT D 500 MG-5 MCG TAB PO SCH ×2 (06:55→17:00)
[2022-11-07] MEDS: INSULIN DETEMIR (LEVEMIR) 100 UNIT/ML SYR SQ SCH (06:55)
--- NOTE | 2022-11-07 08:54 | P.PN ---
Subjective Progress Note Date: 11/07/22 Principal diagnosis: Right hip fracture Patient seen and examined this morning. Patient was resting in bed. He states his pain is manageable on current regimen. Surgical dressing to right hip is clean dry and intact. Patient denies any numbness or tingling to bilateral lower extremities. He may be discharged today pending auth for [facility]. Patient states he has been ambulatory with walker, requiring assistance. Patient has remained afebrile, denies nausea/vomiting, chest pain. Objective - Vital Signs Vital signs: Vital Signs Temp 97.1 F L 11/07/22 07:04 Pulse 98 11/07/22 07:04 Resp 16 11/07/22 07:04 BP 189/71 11/07/22 07:04 Pulse Ox 94 L 11/07/22 07:04 FiO2 Intake & Output 11/06/22 11/07/22 11/07/22 18:59 06:59 18:59 Intake Total 1080 Output Total 650 700 Balance 430 -700 Intake: Oral 1080 Output: Urine 650 700 Coude 600 Other: Voiding Method Indwelling Catheter Indwelling Catheter - Exam Inspection: Right leg presents with 2 surgical dressings over the right lateral hip. Incisions appear to be clean, dry, intact this time. [place] are well aligned. Negative for any open fractures, significant erythema/ulcers/ecchymosis. Sensation: Sensation is equal, symmetric, bilaterally intact throughout the upper and lower extremities. Palpation: Patient has moderate TTP along the right hip over incisions. Nontender to palpation throughout rest of exam Range of motion: Patient has full range of motion in left lower extremity and bilateral upper extremities on exam. Patient has full range of motion in right lower extremity and ankle plantar/dorsiflexion. He does have limited range of motion secondary to pain/weakness in the right lower extremity in hip flexion/extension and knee flexion/extension. Motor: 5/5 in all major motor groups in bilateral upper extremities and left lower extremity on exam. Right ankle 4/5 in resisted dorsi/plantar flexion. Right lower extremity hip/knee motor exam 4-/5 in resisted flexion/extension Neurovascular status: Radial pulses intact, 2+ bilaterally. Cap refill under 3 seconds in digits of upper extremities. Dorsalis pedis pulses present bilaterally. Feet are lukewarm to touch Special tests: Negative Homans bilaterally. - Labs CBC & Chem 7: 11/06/22 14:30 11/06/22 03:54 Labs: Abnormal Lab Results - Last 24 Hours (Table) 11/06/22 11/06/22 11/06/22 Range/Units 11:51 14:30 16:27 RBC 2.24 L (4.30-5.90) m/uL Hgb 7.4 L (13.0-17.5) gm/dL Hct 23.0 L (39.0-53.0) % MCV 102.7 H (80.0-100.0) fL Plt Count 117 L (150-450) k/uL Neutrophils # 8.5 H (1.3-7.7) k/uL Lymphocytes # 0.5 L (1.0-4.8) k/uL POC Glucose (mg/dL) 202 H 333 H (70-110) mg/dL 11/06/22 Range/Units 21:15 RBC (4.30-5.90) m/uL Hgb (13.0-17.5) gm/dL Hct (39.0-53.0) % MCV (80.0-100.0) fL Plt Count (150-450) k/uL Neutrophils # (1.3-7.7) k/uL Lymphocytes # (1.0-4.8) k/uL POC Glucose (mg/dL) 120 H (70-110) mg/dL Assessment and Plan Assessment: -Postoperative day 3: status post right hip IM nail Right hip IT fracture Plan: Plan: -Appreciate recruitment consultant and team management. -Activity: Ambulate QID, OOB all meals, WBAT. Use walker or cane if needed for stability. -Daily PT/OT, increase ambulation strength and balance. -Pain control: Adequate at this time -Meds: reviewed -GI ppx: senna, Miralax -DVT PPX: Lovenox -Hygiene: Shower today. Maintain dressing clean and dry. -Encourage IS 10x/hr -Dispo: Anticipate discharge to [facility] today, pending auth. *I reviewed and discussed this case with my attending Dr. Tang, whom has reviewed this chart and films and is in agreement with assessment and plan of care as outlined above. I have personally seen and examined the patient, performed the documentation and the assessment and plan as written. Number of minutes spent on the visit: 15m.
[2022-11-07 08:55] LABS: African American GFR (CKD) 76 (>60 ml/min/1.73 sqM); Anion Gap 3 mmol/L; Blood Urea Nitrogen 18 mg/dL (9-20); Calcium 7.1 mg/dL (8.4-10.2); Carbon Dioxide 23 mmol/L (22-30); Chloride 111 mmol/L (98-107); Glucose 93 mg/dL (74-99); Magnesium 1.9 mg/dL (1.6-2.3); Non-African American GFR(CKD) 66 (>60 ml/min/1.73 sqM); Potassium 4.8 mmol/L (3.5-5.1); Sodium 137 mmol/L (137-145)
[2022-11-07] MEDS: SODIUM FERRIC GLUCONAT-SUCROSE 125 MG in SODIUM CHLORIDE 0.9% 100 ML IVPB SCH (09:02)
[2022-11-07] MEDS: SENNOSIDES 8.6 MG TAB PO SCH (09:03)
[2022-11-07] MEDS: PANTOPRAZOLE 40 MG/10 ML VIAL IVP SCH ×2 (09:03→21:10)
[2022-11-07] MEDS: FERROUS SULFATE 325 MG TAB PO SCH (09:03)
[2022-11-07] MEDS: ENOXAPARIN 40 MG/0.4 ML SYRINGE SQ SCH (09:03)
[2022-11-07 11:01] LABS: Glucose,Whole Blood 164 mg/dL (70-110)
--- NOTE | 2022-11-07 12:52 | P.PN ---
Subjective This is 72-year-old male seen in consultation because of acute kidney injury.He came in because of a accidental fall and right hip fracture. S/p intramedullary nail fixation Right hip on 11/04/22. His admission creatinine on 11/03/2022 was 1.4, potassium was 5.9 which worsened to 6.4 later. Blood sugars were elevated. His home medication included metformin spironolactone and hydrochlorothiazide. Renal function has now improved. Creatinine down to 1.13 today. S/p IVF. Status post IV iron Patient has indwelling wolf catheter. Objective - Vital Signs Vital signs: Vital Signs Temp 97.1 F L 11/07/22 07:04 Pulse 98 11/07/22 07:04 Resp 16 11/07/22 07:04 BP 189/71 11/07/22 07:04 Pulse Ox 94 L 11/07/22 07:04 FiO2 Intake & Output 11/06/22 11/07/22 11/07/22 18:59 06:59 18:59 Intake Total 1080 Output Total 650 700 400 Balance 430 -700 -400 Intake: Oral 1080 Output: Urine 650 700 400 Coude 600 200 Other: Voiding Method Indwelling Catheter Indwelling Catheter Indwelling Catheter - Exam Awake, comfortable. No distress. Lungs are clear Heart sounds are heard, no murmum [place] is soft. Extremities show no edema. INTERNAL INVESTIGATOR exam grossly intact. - Labs CBC & Chem 7: 11/06/22 14:30 11/07/22 06:41 Labs: Abnormal Lab Results - Last 24 Hours (Table) 11/06/22 11/06/22 11/06/22 Range/Units 14:30 16:27 21:15 RBC 2.24 L (4.30-5.90) m/uL Hgb 7.4 L (13.0-17.5) gm/dL Hct 23.0 L (39.0-53.0) % MCV 102.7 H (80.0-100.0) fL Plt Count 117 L (150-450) k/uL Neutrophils # 8.5 H (1.3-7.7) k/uL Lymphocytes # 0.5 L (1.0-4.8) k/uL Chloride (98-107) mmol/L POC Glucose (mg/dL) 333 H 120 H (70-110) mg/dL Calcium (8.4-10.2) mg/dL 11/07/22 11/07/22 Range/Units 06:41 10:59 RBC (4.30-5.90) m/uL Hgb (13.0-17.5) gm/dL Hct (39.0-53.0) % MCV (80.0-100.0) fL Plt Count (150-450) k/uL Neutrophils # (1.3-7.7) k/uL Lymphocytes # (1.0-4.8) k/uL Chloride 111 H (98-107) mmol/L POC Glucose (mg/dL) 164 H (70-110) mg/dL Calcium 7.1 L (8.4-10.2) mg/dL Assessment and Plan Assessment: . Acute kidney injury secondary to combination of fall with possibly bleeding and slightly low blood pressure and improving now. 2. Hyperkalemia secondary to combination of some bleeding probably at the site of's fracture as well as medication including spironolactone and lisinopril resolved. 3. Chronic kidney disease stage III, mostly nephrosclerosis. GFR between 48-59 in 2021. Trace proteinuria likely diabetic nephropathy as a major cause 4. History of diabetes since 2019 with 1+ proteinuria 5. History of CA bladder, status post TURBT and chemo and radiation 6. History of coronary artery disease. 7. Anemia hemoglobin went down from 12.4 on admission to 7.9, secondary to blood loss from fracture and surgery. 8. Iron deficiency saturation 13% on 11/05/2022, status post IV iron. Plan: Monitor labs. Decrease IVF if tolerating oral intake.
--- NOTE | 2022-11-07 14:40 | P.PN ---
Subjective Progress Note Date: 11/07/22 Patient seen and examined at bedside. He reports well controlled right hip pain. He has no other complaints today. General: nontoxic, no distress, appears at stated age Derm: warm, dry, dressing in place right hip Head: atraumatic, normocephalic, symmetric Eyes: EOMI, no lid lag, anicteric sclera Mouth: no lip lesion, mucus membranes moist Cardiovascular: S1S2 reg, no murmur Lungs: Decreased bs bilateral, no rhonchi, no rales , no accessory muscle use Ext: no gross muscle atrophy, no edema, no contractures Neuro: no focal neuro deficits Psych: Alert, oriented, appropriate affect Assessment/plan: EDITH on CKD III, likely pre renal Hyperkalemia, resolved - Continue to hold aldactone, HCTZ, and cozaar - Continue IVF at the same rate - wolf with strict I and O - Renal US without hydro - nephrology recs appreciated - repeat BMP in AM Anemia, acute blood loss with Fe deficiency , worsening Leukocytosis, stress induced - hold hold off transfusion until HgB less than 7 - GI bleed ruled out - start oral iron - follow CBC Intractable vomiting, resolved Ileus, improved Diarrhea, resolved - Bowel regiment given fecal burden on x-ray DM 2 with hyperglycemia - likely due to stress - hold ozempic - SSI, add levemir once eating - hold metformin - last A1C 7.4 in December 2021 Chronic: HTN HLD CAD with prior [place] s/p bladder cancer in remission - meds reviewed. Patient is medically stable awaiting SNF insurance authorization. Thank you for allowing us to participate in the care of this pleasant patient. Do not hesitate to contact us with questions. Someone can be reached from the [facility] hospitalist group all hours of the day at [phone] or via [employer]. Objective - Vital Signs Vital signs: Vital Signs Temp 98.9 F 11/07/22 13:17 Pulse 84 11/07/22 13:17 Resp 16 11/07/22 13:17 BP 170/71 11/07/22 13:17 Pulse Ox 95 11/07/22 13:17 FiO2 Intake & Output 11/06/22 11/07/22 11/07/22 18:59 06:59 18:59 Intake Total 1080 Output Total 650 700 400 Balance 430 -700 -400 Intake: Oral 1080 Output: Urine 650 700 400 Coude 600 200 Other: Voiding Method Indwelling Catheter Indwelling Catheter Indwelling Catheter - Labs CBC & Chem 7: 11/06/22 14:30 11/07/22 06:41 Labs: Abnormal Lab Results - Last 24 Hours (Table) 11/06/22 11/06/22 11/06/22 Range/Units 14:30 16:27 21:15 RBC 2.24 L (4.30-5.90) m/uL Hgb 7.4 L (13.0-17.5) gm/dL Hct 23.0 L (39.0-53.0) % MCV 102.7 H (80.0-100.0) fL Plt Count 117 L (150-450) k/uL Neutrophils # 8.5 H (1.3-7.7) k/uL Lymphocytes # 0.5 L (1.0-4.8) k/uL Chloride (98-107) mmol/L POC Glucose (mg/dL) 333 H 120 H (70-110) mg/dL Calcium (8.4-10.2) mg/dL 11/07/22 11/07/22 Range/Units 06:41 10:59 RBC (4.30-5.90) m/uL Hgb (13.0-17.5) gm/dL Hct (39.0-53.0) % MCV (80.0-100.0) fL Plt Count (150-450) k/uL Neutrophils # (1.3-7.7) k/uL Lymphocytes # (1.0-4.8) k/uL Chloride 111 H (98-107) mmol/L POC Glucose (mg/dL) 164 H (70-110) mg/dL Calcium 7.1 L (8.4-10.2) mg/dL
[2022-11-07 16:51] LABS: Glucose,Whole Blood 178 mg/dL (70-110)
[2022-11-07 20:16] LABS: Glucose,Whole Blood 193 mg/dL (70-110)
[2022-11-07] MEDS: CYCLOBENZAPRINE 10 MG TAB PO SCH (21:11)
[2022-11-07] MEDS: SENNOSIDES-DOCUSATE SODIUM 1 EACH TAB PO SCH (21:12)
[2022-11-07 22:28] LABS: HCT 21.7 % (39.0-53.0); HGB 7.4 gm/dL (13.0-17.5); MCH 34.8 pg (25.0-35.0); MCHC 34.1 g/dL (31.0-37.0); MCV 102.1 fL (80.0-100.0); Macrocytosis Slight; Mean Platelet Volume 9.4; Platelet Count 135 k/uL (150-450); RBC 2.13 m/uL (4.30-5.90); RDW 13.4 % (11.5-15.5); WBC 8.2 k/uL (3.8-10.6)
[2022-11-08] MEDS: HYDROcodone/APAP 10-325MG 1 EACH TAB PO SCH ×3 (03:12→15:17)
[2022-11-08 06:09] LABS: Glucose,Whole Blood 134 mg/dL (70-110)
[2022-11-08] MEDS: INSULIN ASPART (NovoLOG) 100 UNIT/ML VIAL SQ SCH ×2 (06:37→15:15)
[2022-11-08] MEDS: CALCIUM CARB-VIT D 500 MG-5 MCG TAB PO SCH (06:39)
[2022-11-08] MEDS: INSULIN DETEMIR (LEVEMIR) 100 UNIT/ML SYR SQ SCH (06:39)
--- NOTE | 2022-11-08 08:27 | P.PN ---
Progress Note - Text Progress Note Date: 11/08/22 Pt is ortho stable for DC. Awaiting auth.
--- NOTE | 2022-11-08 08:29 | P.PN ---
Subjective Progress Note Date: 11/08/22 Principal diagnosis: Right hip fracture Patient seen and examined this morning. Patient was resting in bed. He states his pain is manageable on current regimen. Surgical dressing to right hip was moderately saturated this morning. Dressing changed and instructed staff to place ice packs to alleviate edema. Patient denies any numbness or tingling to bilateral lower extremities. He may be discharged today pending auth for [employer]. Patient states he has been ambulatory with walker, requiring assistance. Encouragement for patient to work with PT and be out of bed for all meals. Patient has remained afebrile, denies nausea/vomiting, chest pain. Objective - Vital Signs Vital signs: Vital Signs Temp 98.5 F 11/08/22 07:12 Pulse 85 11/08/22 07:12 Resp 19 11/08/22 07:12 BP 168/67 11/08/22 07:12 Pulse Ox 93 L 11/08/22 07:12 FiO2 Intake & Output 11/07/22 11/08/22 11/08/22 18:59 06:59 18:59 Output Total 850 550 Balance -850 -550 Output: Urine 850 550 Coude 200 Straight 400 Other: Voiding Method Indwelling Catheter Urinal - Exam Inspection: Right leg presents with 2 surgical dressings over the right lateral hip. Incisions appear to be clean, dry, intact this time. Se[place]vel are well aligned. Negative for any open fractures, significant erythema/ulcers/ecchymosis. Sensation: Sensation is equal, symmetric, bilaterally intact throughout the upper and lower extremities. Palpation: Patient has moderate TTP along the right hip over incisions. Nontender to palpation throughout rest of exam Range of motion: Patient has full range of motion in left lower extremity and bilateral upper extremities on exam. Patient has full range of motion in right lower extremity and ankle plantar/dorsiflexion. He does have limited range of motion secondary to pain/weakness in the right lower extremity in hip flexion/extension and knee flexion/extension. Motor: 5/5 in all major motor groups in bilateral upper extremities and left lower extremity on exam. Right ankle 4/5 in resisted dorsi/plantar flexion. Right lower extremity hip/knee motor exam 4-/5 in resisted flexion/extension Neurovascular status: Radial pulses intact, 2+ bilaterally. Cap refill under 3 seconds in digits of upper extremities. Dorsalis pedis pulses present bilaterally. Feet are lukewarm to touch Special tests: Negative Homans bilaterally. - Labs CBC & Chem 7: 11/07/22 22:18 11/07/22 06:41 Labs: Abnormal Lab Results - Last 24 Hours (Table) 11/07/22 11/07/22 11/07/22 Range/Units 06:41 10:59 16:49 RBC (4.30-5.90) m/uL Hgb (13.0-17.5) gm/dL Hct (39.0-53.0) % MCV (80.0-100.0) fL Plt Count (150-450) k/uL Chloride 111 H (98-107) mmol/L POC Glucose (mg/dL) 164 H 178 H (70-110) mg/dL Calcium 7.1 L (8.4-10.2) mg/dL 11/07/22 11/07/22 11/08/22 Range/Units 20:15 22:18 06:07 RBC 2.13 L (4.30-5.90) m/uL Hgb 7.4 L (13.0-17.5) gm/dL Hct 21.7 L (39.0-53.0) % MCV 102.1 H (80.0-100.0) fL Plt Count 135 L (150-450) k/uL Chloride (98-107) mmol/L POC Glucose (mg/dL) 193 H 134 H (70-110) mg/dL Calcium (8.4-10.2) mg/dL Assessment and Plan Assessment: -Postoperative day 4: status post right hip IM nail Right hip IT fracture Plan: Plan: -Appreciate retirement consultant and team management. -Activity: Ambulate QID, OOB all meals, WBAT. Use walker or cane if needed for stability. -Daily PT/OT, increase ambulation strength and balance. -Pain control: Adequate at this time -Meds: reviewed -GI ppx: senna, Miralax -DVT PPX: Lovenox -Hygiene: Shower today. Maintain dressing clean and dry. -Encourage IS 10x/hr -Dispo: Anticipate discharge to [facility] today, pending auth. *I reviewed and discussed this case with my attending Dr. Tang, whom has reviewed this chart and films and is in agreement with assessment and plan of care as outlined above. I have personally seen and examined the patient, performed the documentation and the assessment and plan as written. Number of minutes spent on the visit: 15m.
[2022-11-08] MEDS: SENNOSIDES 8.6 MG TAB PO SCH (09:12)
[2022-11-08] MEDS: ENOXAPARIN 40 MG/0.4 ML SYRINGE SQ SCH (09:12)
[2022-11-08] MEDS: FERROUS SULFATE 325 MG TAB PO SCH (09:12)
[2022-11-08] MEDS: PANTOPRAZOLE 40 MG/10 ML VIAL IVP SCH (09:12)
[2022-11-08] MEDS ORDERED: carvediloL 6.25 MG TAB PO SCH (10:15)
[2022-11-08 11:40] LABS: Glucose,Whole Blood 172 mg/dL (70-110)
--- NOTE | 2022-11-08 13:49 | P.PN ---
Subjective Progress Note Date: 11/08/22 Patient seen and examined at bedside. He reports well controlled right hip pain. He has no other complaints today. Plans for SNF today. General: nontoxic, no distress, appears at stated age Derm: warm, dry, dressing in place right hip Head: atraumatic, normocephalic, symmetric Eyes: EOMI, no lid lag, anicteric sclera Mouth: no lip lesion, mucus membranes moist Cardiovascular: S1S2 reg, no murmur Lungs: Decreased bs bilateral, no rhonchi, no rales , no accessory muscle use Ext: no gross muscle atrophy, no edema, no contractures Neuro: no focal neuro deficits Psych: Alert, oriented, appropriate affect Assessment/plan: EDITH on CKD III, likely pre renal Hyperkalemia, resolved - Continue to hold aldactone, HCTZ, and cozaar - Continue to hold Metformin Anemia, acute blood loss with Fe deficiency , worsening Leukocytosis, stress induced - Hold off transfusion until HgB less than 7 - GI bleed ruled out - Continue oral iron - Follow CBC Intractable vomiting, resolved Ileus, improved Diarrhea, resolved - Bowel regiment given fecal burden on x-ray DM 2 with hyperglycemia - Likely due to stress - Restart ozempic - Last A1C 7.4 in December 2021 CAD - Restart ASA, Lipitor and Coreg Chronic: HTN HLD s/p bladder cancer in remission Patient is medically stable awaiting SNF insurance authorization. Thank you for allowing us to participate in the care of this pleasant patient. Do not hesitate to contact us with questions. Someone can be reached from the [facility] hospitalist group all hours of the day at [phone] or via perfect serve. Objective - Vital Signs Vital signs: Vital Signs Temp 98.5 F 11/08/22 07:12 Pulse 85 11/08/22 07:35 Resp 19 11/08/22 07:35 BP 168/67 11/08/22 07:12 Pulse Ox 94 L 11/08/22 09:16 FiO2 Intake & Output 11/07/22 11/08/22 11/08/22 18:59 06:59 18:59 Intake Total 118 Output Total 850 550 110 Balance -850 -550 8 Intake: Oral 118 Output: Urine 850 550 110 Coude 200 Straight 400 Other: Voiding Method Indwelling Catheter Urinal Urinal - Labs CBC & Chem 7: 11/07/22 22:18 11/07/22 06:41 Labs: Abnormal Lab Results - Last 24 Hours (Table) 11/07/22 11/07/22 11/07/22 Range/Units 16:49 20:15 22:18 RBC 2.13 L (4.30-5.90) m/uL Hgb 7.4 L (13.0-17.5) gm/dL Hct 21.7 L (39.0-53.0) % MCV 102.1 H (80.0-100.0) fL Plt Count 135 L (150-450) k/uL POC Glucose (mg/dL) 178 H 193 H (70-110) mg/dL 11/08/22 11/08/22 Range/Units 06:07 11:38 RBC (4.30-5.90) m/uL Hgb (13.0-17.5) gm/dL Hct (39.0-53.0) % MCV (80.0-100.0) fL Plt Count (150-450) k/uL POC Glucose (mg/dL) 134 H 172 H (70-110) mg/dL
[2022-11-08 15:18] VITALS: BP 185/69; PULSE 83; RESP 18; TEMP 97.8
[2022-11-09] MEDS ORDERED: ATORVASTATIN 80 MG TAB PO SCH (09:00)
[2022-11-09] MEDS ORDERED: ASPIRIN 81 MG PO SCH (09:00)
== END 2022-11-08 15:52 | DRG 481 ==
LOC: EC 14:05 → 4SSUR 16:52
PROVIDERS: ADMIT Orthopaedic Surgery; ATTEND Orthopaedic Surgery
PROC: 0QS606Z Reposition Right Upper Femur with Intramedullary Internal Fixation Device, Open Approach (ICD-10-PCS; principal; 2022-11-04 11:00)
DX: S72.141A Displaced intertrochanteric fracture of right femur, initial encounter for closed fracture (principal); D62 Acute posthemorrhagic anemia; K56.7 Ileus, unspecified; E11.22 Type 2 diabetes mellitus with diabetic chronic kidney disease; D50.9 Iron deficiency anemia, unspecified; D72.828 Other elevated white blood cell count; E11.65 Type 2 diabetes mellitus with hyperglycemia; N18.30 Chronic kidney disease, stage 3 unspecified; I12.9 Hypertensive chronic kidney disease with stage 1 through stage 4 chronic kidney disease, or unspecified chronic kidney disease; F10.11 Alcohol abuse, in remission; I25.10 Atherosclerotic heart disease of native coronary artery without angina pectoris; E78.5 Hyperlipidemia, unspecified; G14 Postpolio syndrome; G89.29 Other chronic pain; E87.5 Hyperkalemia; M19.90 Unspecified osteoarthritis, unspecified site; M21.70 Unequal limb length (acquired), unspecified site; M54.50 Low back pain, unspecified; R53.1 Weakness; W10.9XXA Fall (on) (from) unspecified stairs and steps, initial encounter; Q64.4 Malformation of urachus; Y92.009 Unspecified place in unspecified non-institutional (private) residence as the place of occurrence of the external cause; Z28.310 Unvaccinated for COVID-19; I25.2 Old myocardial infarction; Z87.891 Personal history of nicotine dependence; Z92.21 Personal history of antineoplastic chemotherapy; Z92.3 Personal history of irradiation; Z79.84 Long term (current) use of oral hypoglycemic drugs; Z79.82 Long term (current) use of aspirin; Z79.02 Long term (current) use of antithrombotics/antiplatelets; Z79.4 Long term (current) use of insulin; Z95.5 Presence of coronary angioplasty implant and graft; Z85.51 Personal history of malignant neoplasm of bladder; Z79.899 Other long term (current) drug therapy
CPT/HCPCS: 36415; 51702; 70450; 71045; 72125; 73502; 74022; 76770; 80048; 82550; 82728; 83036; 83540; 83550; 83735; 84132; 85025; 85027; 85610; 85730; 93005; 94640; 94760; 96374; 99285

== ENCOUNTER 2023-08-04 14:41 | Inpatient (IN) | payer MEDICARE, OTHER ==
[2023-08-04] MEDS ORDERED: SODIUM CHLORIDE 0.9% 1,000 ML IV STA ×3 (15:28→20:09)
[2023-08-04] MEDS ORDERED: SODIUM CHLORIDE 0.9% 500 ML 500 ML IV STA (15:28)
[2023-08-04] MEDS ORDERED: fentaNYL (PF) 50 MCG/ML 2 ML AMP IV STA (15:28)
--- NOTE | 2023-08-04 15:34 | ED ---
Nausea/Vomiting/Diarrhea HPI - General Chief complaint: Nausea/Vomiting/Diarrhea Stated complaint: Weakness Time Seen by Provider: 08/04/23 14:55 Source: patient, RN notes reviewed Mode of arrival: ambulatory Limitations: no limitations - History of Present Illness Initial comments: 72-year-old male with a history of bladder cancer who presents with complaints of nausea vomiting diarrhea decreased oral intake over last for 5 days generalized weakness he states he fell in October of this year has a right hip replacement he's been pretty much bedbound not able ably well since then about 2 weeks ago he started developing a lump in the left side of his neck there is ultrasound done in the third of this month he was supposed have a CAT scan of the neck done yesterday but was canceled and hasn't yet to be rescheduled. No overt fevers he states she's always chills no sweats no dysuria hematuria no cough or phlegm production. MD complaint: nausea, vomiting, diarrhea, other - Related Data Home Medications Medication Instructions Recorded Confirmed Atorvastatin [Lipitor] 80 mg PO DAILY 05/13/20 08/04/23 Celecoxib [CeleBREX] 200 mg PO DAILY 08/04/23 08/04/23 Liraglutide [Victoza 3-Sam] 1.8 mg SQ DAILY 08/04/23 08/04/23 Spironolactone [Aldactone] 25 mg PO DAILY 08/04/23 08/04/23 Sulfamethox-Tmp 800-160Mg [Bactrim 1 tab PO Q12HR 08/04/23 08/04/23 DS 800-160 mg] carvediloL [Coreg] 12.5 mg PO DAILY 08/04/23 08/04/23 hydroCHLOROthiazide 12.5 mg PO DAILY 08/04/23 08/04/23 lisinopriL [Zestril] 30 mg PO DAILY 08/04/23 08/04/23 metFORMIN HCL ER [Glucophage XR] 500 mg PO BID 08/04/23 08/04/23 Previous Rx's Medication Instructions Recorded Aspirin 81 mg PO DAILY #90 chewable 07/25/19 Allergies Allergy/AdvReac Type Severity Reaction Status Date / Time No Known Allergies Allergy Verified 08/04/23 17:19 Review of Systems ROS Statement: Those systems with pertinent positive or pertinent negative responses have been documented in the HPI. ROS Other: All systems not noted in ROS Statement are negative. Past Medical History Past Medical History: Coronary Artery Disease (CAD), Cancer, Diabetes Mellitus, Hyperlipidemia, Hypertension, Myocardial Infarction (NM), Osteoarthritis (OA) Additional Past Medical History / Comment(s): Bladder cancer stage with treat ment, in remission since 2020. IDDM type II, post polio syndrome,leg length discrepancy, bronchitis, chronic low back pain. Last Myocardial Infarction Date:: 07/23/19 History of Any Multi-Drug Resistant Organisms: None Reported Past Surgical History: Heart Catheterization With Stent, Orthopedic Surgery Additional Past Surgical History / Comment(s): Cystoscopy, TURBT x2, closure of patent urachus bladder tumor as , R leg surgery d/t polio-lengthening, cardiac stents 2019 Past Anesthesia/Blood Transfusion Reactions: No Reported Reaction Date of Last Stent Placement:: 07/23/19 Past Psychological History: No Psychological Hx Reported Smoking Status: Former smoker Past Alcohol Use History: None Reported Past Drug Use History: None Reported - Past Family History Father History Unknown: Yes Mother Additional Family Medical History / Comment(s): Mother of in a MVA when pt was 15 yrs old. Brother(s) Additional Family Medical History / Comment(s): Pt has one brother who of a bowel problem and another brother that of a ruptured aneurysm. General Exam - General Exam Comments Initial Comments: Is a well-developed well-nourished awake alert oriented 4 male Limitations: no limitations General appearance: alert, anxious Head exam: Present: atraumatic, normocephalic, normal inspection Eye exam: Present: normal appearance, PERRL, EOMI. Absent: scleral icterus, conjunctival injection, periorbital swelling ENT exam: Present: mucous membranes dry Neck exam: Present: tenderness (There is a tender mass on the left-sided neck with palpable lymphadenopathy no fluctuance no pulsatile lesion no localized erythema no increased localized temperature). Absent: meningismus, lymphadenopathy Respiratory exam: Present: normal lung sounds bilaterally. Absent: respiratory distress, wheezes, rales, rhonchi, stridor Cardiovascular Exam: Present: regular rate, normal rhythm, normal heart sounds. Absent: systolic murmur, diastolic murmur, rubs, gallop, clicks GI/Abdominal exam: Present: soft, normal bowel sounds. Absent: distended, tenderness, guarding, rebound, rigid Extremities exam: Present: normal inspection, full ROM, normal capillary refill. Absent: tenderness, pedal edema, joint swelling, calf tenderness Back exam: Present: normal inspection Neurological exam: Present: alert, oriented X3, CN II-XII intact Psychiatric exam: Present: normal affect, normal mood Skin exam: Present: warm, dry, intact, normal color. Absent: rash Course Vital Signs 08/04/23 08/04/23 14:47 18:55 Temperature 98.4 F Pulse Rate 68 82 Respiratory 20 22 Rate Blood Pressure 97/53 144/78 O2 Sat by Pulse 94 L 98 Oximetry Medical Decision Making - Medical Decision Making I did discuss the findings with the patient's also with Dr. Manny Dow and Dr. Vergara. The patient does demonstrate evidence of acute kidney injury dehydration hyperkalemia and metabolic acidosis. The patient is aggressively being treated with medications and fluids for the above. Patient will be admitted to the intensive care unit for close monitoring and continue therapy. Ultrasound the kidneys is pending.Was pt. sent in by a medical professional or institution (, PA, NEEDLE GRADER, urgent care, hospital, or care home...) When possible be specific @ -No Did you speak to anyone other than the patient for history (EMS, parent, family, police, friend...)? What history was obtained from this source @ -Patient's Did you review nursing and triage notes (agree or disagree)? Why? @ -I reviewed and agree with nursing and triage notes Were old charts reviewed (outside hosp., previous admission, EMS record, old EKG, old radiological studies, urgent care reports/EKG's, care home records)? Report findings @ -Previous treatment old charts were reviewed Differential Diagnosis (chest pain, altered mental status, abdominal pain women, abdominal pain men, vaginal bleeding, weakness, fever, dyspnea, syncope, headac he, dizziness, GI bleed, back pain, seizure, CVA, palpatations, mental health, musculoskeletal)? @ -Neck mass, dehydration, gastroenteritis EKG interpreted by me (3pts min.). @ -As above EKG interpreted by me shows a sinus rhythm a 76. Interval 188 QRS duration 110 QT since QTC 393/423 nonspecific inferior changes this is compared with an EKG dated 11/04/22 showing similar configuration. X-rays interpreted by me (1pt min.). @ -X-rays interpreted by me K Heather nonspecific chest x-ray no acute processes CT interpreted by me (1pt min.). @ -None done U/S interpreted by me (1pt. min.). @ -None done What testing was considered but not performed or refused? (CT, X-rays, U/S, labs)? Why? @ -None What meds were considered but not given or refused? Why? @ -None Did you discuss the management of the patient with other professionals ( professionals i.e. , PA, NEEDLE GRADER, lab, RT, psych nurse, social media designer, helper/driver, teacher, agricultural technical officer, caseworker)? Give summary @ -No Was smoking cessation discussed for >3mins.? @ -No Was critical care preformed (if so, how long)? @ -49 minutes Were there social determinants of health that impacted care today? How? (Homelessness, low income, unemployed, alcoholism, drug addiction, transportation, low edu. Level, literacy, decrease access to med. care, long term, rehab)? @ -No Was there de-escalation of care discussed even if they declined (Discuss DNR or withdrawal of care, Hospice)? DNR status @ -No What co-morbidities impacted this encounter? (DM, HTN, Smoking, COPD, CAD, Cancer, CVA, ARF, Chemo, Hep., AIDS, mental health diagnosis, sleep apnea, morbid obesity)? @ -History of bladder cancer, neck mass, dehydration Was patient admitted / discharged? Hospital course, mention meds given and route, prescriptions, significant lab abnormalities, going to OR and other pertinent info. @ -hospital course it was admitted to the intensive care unit for aggressive therapy to bring his potassium level down and correct fluid deficits and determine the etiology of the Q kidney failure. Undiagnosed new problem with uncertain prognosis? @ -Acute kidney injury, hyperkalemia, metabolic acidosis Drug Therapy requiring intensive monitoring for toxicity (Heparin, Nitro, Insulin, Cardizem)? @ -S Were any procedures done? @ -No Diagnosis/symptom? @ -Acute kidney injury, dehydration, hyperkalemia, metabolic acidosis, leukocytosis, left neck mass Acute, or Chronic, or Acute on Chronic? @ -Acute Uncomplicated (without systemic symptoms) or Complicated (systemic symptoms)? @ -Replicated Side effects of treatment? @ -No Exacerbation, Progression, or Severe Exacerbation? @ -No Poses a threat to life or bodily function? How? (Chest pain, USA, NM, pneumonia, PE, COPD, DKA, ARF, appy, cholecystitis, CVA, Diverticulitis, Homicidal, Suicidal, threat to staff... and all critical care pts) @ -He has acute kidney injury with hyperkalemia and metabolic acidosis, dehydration, hypotensive episode - Lab Data Result diagrams: 08/04/23 15:18 08/04/23 15:18 Lab Results 08/04/23 08/04/23 08/04/23 Range/Units 15:18 15:18 15:18 WBC 15.6 H (3.8-10.6) k/uL RBC 4.28 L (4.30-5.90) m/uL Hgb 14.5 (13.0-17.5) gm/dL Hct 45.1 (39.0-53.0) % MCV 105.4 H (80.0-100.0) fL MCH 33.9 (25.0-35.0) pg MCHC 32.2 (31.0-37.0) g/dL RDW 12.5 (11.5-15.5) % Plt Count 234 (150-450) k/uL MPV 10.8 Neutrophils % 91 % Lymphocytes % 5 % Monocytes % 3 % Eosinophils % 0 % Basophils % 0 % Neutrophils # 14.1 H (1.3-7.7) k/uL Lymphocytes # 0.8 L (1.0-4.8) k/uL Monocytes # 0.5 (0-1.0) k/uL Eosinophils # 0.1 (0-0.7) k/uL Basophils # 0.0 (0-0.2) k/uL Macrocytosis Slight Sodium 137 (137-145) mmol/L Potassium 7.8 H* (3.5-5.1) mmol/L Chloride 106 (98-107) mmol/L Carbon Dioxide 8 L* (22-30) mmol/L Anion Gap 23 mmol/L BUN 106 H* (9-20) mg/dL Creatinine 6.97 H (0.66-1.25) mg/dL Est GFR (CKD-EPI)AfAm 8 (>60 ml/min/1.73 sqM) Est GFR (CKD-EPI)NonAf 7 (>60 ml/min/1.73 sqM) Glucose 185 H (74-99) mg/dL Plasma Lactic Acid Bryan 1.8 (0.7-2.0) mmol/L Calcium 8.5 (8.4-10.2) mg/dL Magnesium 1.9 (1.6-2.3) mg/dL Total Bilirubin 0.7 (0.2-1.3) mg/dL AST 34 (17-59) U/L ALT 18 (4-49) U/L Alkaline Phosphatase 90 (38-126) U/L Creatine Kinase 101 (55-170) U/L Troponin I (0.000-0.034) ng/mL Total Protein 7.5 (6.3-8.2) g/dL Albumin 4.3 (3.5-5.0) g/dL Lipase 202 (23-300) U/L Influenza Type A (PCR) (Not Detectd) Influenza Type B (PCR) (Not Detectd) RSV (PCR) (Not Detectd) SARS-CoV-2 (PCR) (Not Detectd) 08/04/23 08/04/23 Range/Units 15:18 15:18 WBC (3.8-10.6) k/uL RBC (4.30-5.90) m/uL Hgb (13.0-17.5) gm/dL Hct (39.0-53.0) % MCV (80.0-100.0) fL MCH (25.0-35.0) pg MCHC (31.0-37.0) g/dL RDW (11.5-15.5) % Plt Count (150-450) k/uL MPV Neutrophils % % Lymphocytes % % Monocytes % % Eosinophils % % Basophils % % Neutrophils # (1.3-7.7) k/uL Lymphocytes # (1.0-4.8) k/uL Monocytes # (0-1.0) k/uL Eosinophils # (0-0.7) k/uL Basophils # (0-0.2) k/uL Macrocytosis Sodium (137-145) mmol/L Potassium (3.5-5.1) mmol/L Chloride (98-107) mmol/L Carbon Dioxide (22-30) mmol/L Anion Gap mmol/L BUN (9-20) mg/dL Creatinine (0.66-1.25) mg/dL Est GFR (CKD-EPI)AfAm (>60 ml/min/1.73 sqM) Est GFR (CKD-EPI)NonAf (>60 ml/min/1.73 sqM) Glucose (74-99) mg/dL Plasma Lactic Acid Bryan (0.7-2.0) mmol/L Calcium (8.4-10.2) mg/dL Magnesium (1.6-2.3) mg/dL Total Bilirubin (0.2-1.3) mg/dL AST (17-59) U/L ALT (4-49) U/L Alkaline Phosphatase (38-126) U/L Creatine Kinase (55-170) U/L Troponin I 0.045 H* (0.000-0.034) ng/mL Total Protein (6.3-8.2) g/dL Albumin (3.5-5.0) g/dL Lipase (23-300) U/L Influenza Type A (PCR) Not Detected (Not Detectd) Influenza Type B (PCR) Not Detected (Not Detectd) RSV (PCR) Not Detected (Not Detectd) SARS-CoV-2 (PCR) Not Detected (Not Detectd) - EKG Data -: EKG Interpreted by Me (EKG interpreted by me sinus rhythm with rate 76 [place] interval 180 QRS duratio) - Radiology Data Interpreted by me: Imaging interpreted by me no evidence of acute processes nonspecific bowel gas on the KUB x-ray shows Critical Care Time Critical Care Time: Yes Total Critical Care Time: 49 Disposition Clinical Impression: Acute kidney injury, Acute hyperkalemia, Dehydration, Hypotensive episode, Gastroenteritis, Oliguria, Mass of left side of neck Disposition: ADMITTED IP TO THIS [facility] Condition: Serious Referrals: Sukhjinder Rubio MD [Primary Care Provider] - 1-2 days Decision Date: 08/04/23 Decision Time: 19:30
[2023-08-04 15:52] LABS: Basophils % (A) 0 %; Eosinophils # (A) 0.1 k/uL (0-0.7); Eosinophils % (A) 0 %; HCT 45.1 % (39.0-53.0); HGB 14.5 gm/dL (13.0-17.5); Lymphocytes # (A) 0.8 k/uL (1.0-4.8); Lymphocytes % (A) 5 %; MCH 33.9 pg (25.0-35.0); MCHC 32.2 g/dL (31.0-37.0); MCV 105.4 fL (80.0-100.0); Macrocytosis Slight; Mean Platelet Volume 10.8; Monocytes # (A) 0.5 k/uL (0-1.0); Monocytes % (A) 3 %; Neutrophils # (A) 14.1 k/uL (1.3-7.7); Neutrophils % (A) 91 %; Platelet Count 234 k/uL (150-450); RBC 4.28 m/uL (4.30-5.90); RDW 12.5 % (11.5-15.5); WBC 15.6 k/uL (3.8-10.6)
[2023-08-04 16:07] LABS: ALT 18 U/L (4-49); AST 34 U/L (17-59); African American GFR (CKD) 8 (>60 ml/min/1.73 sqM); Albumin 4.3 g/dL (3.5-5.0); Alkaline Phosphatase 90 U/L (38-126); Anion Gap 23 mmol/L; Calcium 8.5 mg/dL (8.4-10.2); Chloride 106 mmol/L (98-107); Creatine Kinase 101 U/L (55-170); Glucose 185 mg/dL (74-99); Lipase 202 U/L (23-300); Magnesium 1.9 mg/dL (1.6-2.3); Non-African American GFR(CKD) 7 (>60 ml/min/1.73 sqM); Sodium 137 mmol/L (137-145); Total Bilirubin 0.7 mg/dL (0.2-1.3); Total Protein 7.5 g/dL (6.3-8.2)
[2023-08-04 16:41] LABS: Blood Urea Nitrogen 106 mg/dL (9-20); Carbon Dioxide 8 mmol/L (22-30)
[2023-08-04 16:42] LABS: Potassium 7.8 mmol/L (3.5-5.1)
--- NOTE | 2023-08-04 16:48 | XR ---
EXAMINATION TYPE: XR chest 2V DATE OF EXAM: 08/04/2023 4:23 PM CLINICAL INDICATION:Male, 72 years old with history of nausea and vomiting. COMPARISON: None. TECHNIQUE: XR chest 2V Frontal and lateral views of the chest. FINDINGS: Lungs/Pleura: There is no evidence of pleural effusion, focal consolidation, or pneumothorax. Pulmonary vascularity: Unremarkable. Heart/mediastinum: Cardiomediastinal silhouette is unremarkable. Musculoskeletal: No acute osseous pathology. IMPRESSION: No acute cardiopulmonary disease/process.
--- NOTE | 2023-08-04 16:52 | XR ---
EXAMINATION TYPE: XR KUB DATE OF EXAM: 08/04/2023 4:23 PM CLINICAL INDICATION:Male, 72 years old with history of Nausea vomiting diarrhea with weakness. COMPARISON: None. TECHNIQUE: One radiographic view of the abdomen was obtained. FINDINGS: The bowel gas pattern is nonspecific without dilated loops of small or large bowel. There i s no evidence for organomegaly or pneumoperitoneum. The osseous structures are intact. Fecal materi al and gas are demonstrated throughout the colon and rectum. Right hip prosthesis identified. IMPRESSION: Nonspecific bowel gas pattern without radiographic evidence for acute process.
[2023-08-04] MEDS ORDERED: ALBUTEROL NEBULIZED (CONC) 20 MG, SODIUM CHLORIDE 0.9% NEBULIZ 3 ML INHALATION ONE ×2 (18:10)
[2023-08-04] MEDS ORDERED: DEXTROSE 50% SYRINGE 50 ML IVP STA (18:20)
[2023-08-04] MEDS ORDERED: INSULIN REGULAR 100 UNIT/ML VIAL (IV) IV ONE (18:20)
[2023-08-04] MEDS ORDERED: CALCIUM CHLORIDE 100 MG/ML 10 ML SYRINGE IVP STA (18:20)
[2023-08-04] MEDS ORDERED: SODIUM POLYSTYRENE SULFONATE 15 GM/60 ML BOTTLE PO STA (18:21)
[2023-08-04] MEDS ORDERED: SODIUM BICARB 8.4% 50 ML SYR (1 MEQ/ML) IV STA (18:29)
[2023-08-04] MEDS ORDERED: FUROSEMIDE 10 MG/ML 4 ML VIAL IV STA (18:30)
[2023-08-04] MEDS ORDERED: HYDROmorphone 1 MG/ML 1 ML SYRINGE IVP STA (18:52)
[2023-08-04] MEDS ORDERED: NALOXONE 0.4 MG/ML 1 ML VIAL IV PRN (20:04)
--- NOTE | 2023-08-04 21:06 | US ---
EXAMINATION TYPE: US kidneys/renal and bladder DATE OF EXAM: 08/04/2023 COMPARISON: XR 08/04/2023, US 11/04/2022 CLINICAL INDICATION: Male, 72 years old with history of Acute renal failure; Acute renal failure. Hx bladder cancer with chemo and radiation. EXAM MEASUREMENTS: Right Kidney: 11.4 x 5.6 x 4.9 cm Left Kidney: 10.5 x 4.9 x 5.1 cm Right Kidney: Mild dilation of the renal pelvis and calyces. Left Kidney: No evidence of hydronephrosis. Left renal cyst measuring 1.6 x 1.5 x 1.6 cm Bladder: Limited evaluation, not fully distended. IMPRESSION: 1. Mild right-sided hydronephrosis. 2. No evidence of left-sided hydronephrosis.
[2023-08-04] MEDS: DEXTROSE 5% IN WATER 1,000 ML with SODIUM BICARB (1 MEQ/ML) 150 ML IV SCH (21:31)
[2023-08-04 21:59] LABS: ALT 17 U/L (4-49); AST 32 U/L (17-59); African American GFR (CKD) 8 (>60 ml/min/1.73 sqM); Albumin 3.7 g/dL (3.5-5.0); Alkaline Phosphatase 71 U/L (38-126); Anion Gap 21 mmol/L; Calcium 9.3 mg/dL (8.4-10.2); Chloride 110 mmol/L (98-107); Glucose 130 mg/dL (74-99); Non-African American GFR(CKD) 7 (>60 ml/min/1.73 sqM); Sodium 138 mmol/L (137-145); Total Bilirubin 0.7 mg/dL (0.2-1.3); Total Protein 6.6 g/dL (6.3-8.2)
[2023-08-04 22:06] LABS: Carbon Dioxide 7 mmol/L (22-30); Potassium 6.1 mmol/L (3.5-5.1)
[2023-08-04 22:07] LABS: Blood Urea Nitrogen 110 mg/dL (9-20)
[2023-08-05] MEDS: ACETAMINOPHEN TAB 325 MG TAB PO PRN ×2 (01:30→09:24)
[2023-08-05 03:33] LABS: Appearance,Urine Cloudy (Clear); Bacteria,Urine Rare /hpf; Bilirubin,Urine 1+ (Negative); Blood,Urine Negative (Negative); Color,Urine Light Yellow; Glucose,Urine (UA) Negative (Negative); Hyaline Casts,Urine 24 /lpf (0-2); Ketones,Urine Trace (Negative); Leukocyte Esterase,Urine Negative (Negative); Nitrite,Urine Negative (Negative); Protein,Urine Trace (Negative); RBC,Urine 2 /hpf (0-5); Specific Gravity,Urine 1.018 (1.001-1.035); Squamous Epithelial Cell,Urine 6 /hpf (0-4); Urobilinogen,Urine <2.0 mg/dL (<2.0); WBC,Urine 2 /hpf (0-5)
[2023-08-05] MEDS: DEXTROSE 5% IN WATER 1,000 ML with SODIUM BICARB (1 MEQ/ML) 150 ML IV SCH ×2 (05:43→10:28)
[2023-08-05 06:38] LABS: Glucose,Whole Blood 279 mg/dL (70-110)
[2023-08-05 07:01] LABS: Basophils % (A) 0 %; Eosinophils % (A) 0 %; HCT 40.2 % (39.0-53.0); HGB 13.1 gm/dL (13.0-17.5); Lymphocytes # (A) 0.8 k/uL (1.0-4.8); Lymphocytes % (A) 6 %; MCH 34.4 pg (25.0-35.0); MCHC 32.5 g/dL (31.0-37.0); MCV 105.8 fL (80.0-100.0); Macrocytosis Slight; Mean Platelet Volume 10.4; Monocytes # (A) 0.6 k/uL (0-1.0); Monocytes % (A) 5 %; Neutrophils # (A) 10.6 k/uL (1.3-7.7); Neutrophils % (A) 87 %; Platelet Count 198 k/uL (150-450); RDW 12.6 % (11.5-15.5); WBC 12.2 k/uL (3.8-10.6)
[2023-08-05] MEDS ORDERED: INSULIN REGULAR 100 UNIT/ML VIAL (IV) IV ONE (07:01)
[2023-08-05] MEDS ORDERED: CALCIUM GLUCONATE IN NACL 1 GM in SALINE 1 100ML.BAG IVPB ONE (07:01)
[2023-08-05] MEDS ORDERED: DEXTROSE 50% SYRINGE 50 ML IVP ONE (07:01)
[2023-08-05 07:10] LABS: ALT 16 U/L (4-49); AST 28 U/L (17-59); African American GFR (CKD) 8 (>60 ml/min/1.73 sqM); Albumin 3.7 g/dL (3.5-5.0); Alkaline Phosphatase 79 U/L (38-126); Anion Gap 22 mmol/L; Calcium 8.5 mg/dL (8.4-10.2); Carbon Dioxide 10 mmol/L (22-30); Chloride 104 mmol/L (98-107); Glucose 241 mg/dL (74-99); Non-African American GFR(CKD) 7 (>60 ml/min/1.73 sqM); Potassium 5.3 mmol/L (3.5-5.1); Sodium 136 mmol/L (137-145); Total Bilirubin 0.5 mg/dL (0.2-1.3); Total Protein 6.4 g/dL (6.3-8.2)
[2023-08-05 08:14] LABS: Blood Urea Nitrogen 110 mg/dL (9-20)
[2023-08-05] MEDS ORDERED: hydroCHLOROthiazide 12.5 MG CAP PO SCH (09:00)
[2023-08-05] MEDS ORDERED: carvediloL 12.5 MG TAB PO SCH (09:00)
[2023-08-05] MEDS: ASPIRIN 81 MG PO SCH (09:25)
[2023-08-05] MEDS: PANTOPRAZOLE 40 MG/10 ML VIAL IV SCH (09:25)
[2023-08-05] MEDS: ATORVASTATIN 80 MG TAB PO SCH (09:25)
[2023-08-05] MEDS ORDERED: SODIUM CHLORIDE 0.9% 1,000 ML IV ONE (10:05)
--- NOTE | 2023-08-05 10:31 | P.NPCON ---
History of Present Illness - Reason for Consult acute renal failure - History of Present Illness patient is a 72-year-old male with history of bladder cancer status post chemotherapy and radiation therapy in 2020. No previous history of kidney diseases. Patient is admitted to the hospital with complaints of increased weakness. Patient has also had significant diarrhea with nausea and vomiting. Patient has not felt well for about 2 weeks now. patient was recently noted to have swelling in the neck area an ultrasound of the left neck showed multiple enlarged lymph nodes. No history ofkidney disease. Serum creatinine was 6.9 on admission with CO2 of 8 and potassium 7.8. Patient received IV fluid bolus and is maintained on bicarb drip. Serum creatinine is 7.1 this morning with potassium of 5.3. CO2 has improved to 10. Patient has been voiding. Ultrasound shows mild right hydronephrosis. overall patient states he is feeling better. Review of Systems as per HPI Past Medical History Past Medical History: Coronary Artery Disease (CAD), Cancer, Diabetes Mellitus, Hyperlipidemia, Hypertension, Myocardial Infarction ([place]), Osteoarthritis (OA) Additional Past Medical History / Comment(s): Bladder cancer stage with treatment, in remission since 2020. IDDM type II, post polio syndrome,leg length discrepancy, bronchitis, chronic low back pain. 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 He is independent. He just started ambulating with a cane or walker Smoking Status: Former smoker Past Alcohol Use History: None Reported Additional Past Alcohol Use History / Comment(s): Pt started smoking in 1968 and quit 07/21/19. Prior ETOH abuse-pt states he hasnt had alcohol in months Past Drug Use History: None Reported - Past Family History Father History Unknown: Yes Mother Additional Family Medical History / Comment(s): Mother of in a MVA when pt was 15 yrs old. Brother(s) Additional Family Medical History / Comment(s): Pt has one brother who of a bowel problem and another brother that of a ruptured aneurysm. Medications and Allergies Home Medications Medication Instructions Recorded Confirmed Type Aspirin 81 mg PO DAILY #90 chewable 07/25/19 08/04/23 Rx Atorvastatin [Lipitor] 80 mg PO DAILY 05/13/20 08/04/23 History Celecoxib [CeleBREX] 200 mg PO DAILY 08/04/23 08/04/23 History Liraglutide [Victoza 3-Sam] 1.8 mg SQ DAILY 08/04/23 08/04/23 History Spironolactone [Aldactone] 25 mg PO DAILY 08/04/23 08/04/23 History Sulfamethox-Tmp 800-160Mg [Bactrim 1 tab PO Q12HR 08/04/23 08/04/23 History DS 800-160 mg] carvediloL [Coreg] 12.5 mg PO DAILY 08/04/23 08/04/23 History hydroCHLOROthiazide 12.5 mg PO DAILY 08/04/23 08/04/23 History lisinopriL [Zestril] 30 mg PO DAILY 08/04/23 08/04/23 History metFORMIN HCL ER [Glucophage XR] 500 mg PO BID 08/04/23 08/04/23 History Allergies Allergy/AdvReac Type Severity Reaction Status Date / Time No Known Allergies Allergy Verified 08/04/23 17:19 Physical Exam Vitals: Vital Signs Temp Pulse Resp BP Pulse Ox 08/05/23 10:00 91 23 128/54 95 08/05/23 09:30 91 18 97 08/05/23 09:00 91 21 97 08/05/23 08:30 94 17 132/52 96 08/05/23 08:00 96 16 112/60 92 L 08/05/23 07:30 103 H 19 112/60 98 08/05/23 07:00 98.0 F 104 H 20 135/60 97 08/05/23 06:50 97.7 F 95 27 H 135/60 96 08/05/23 05:53 86 19 116/44 97 08/05/23 04:15 89 19 08/05/23 00:11 90 19 131/40 08/04/23 21:14 89 18 106/44 96 08/04/23 20:08 100 08/04/23 19:40 92 08/04/23 18:55 82 22 144/78 98 08/04/23 14:47 98.4 F 68 20 97/53 94 L Intake and Output 08/04/23 08/05/23 08/05/23 22:59 06:59 14:59 Intake Total 200 Output Total 100 Balance 100 Intake: Intake, IV Titration 200 Amount Dextrose 5% in Water 1, 200 000 ml @ 100 mls/hr IV . [id number] GURDEEP with Sodium Bicarb (1 Meq/ml) 150 ml Rx#:[id number] Output: Urine 100 Other: Weight 81.647 kg patient is awake, comfortable, no acute distress Examination of the heart S1 and S2 Examination of the lungs bilateral breath sounds are heard Abdomen is soft nontender Examination of lower extremities shows no evidence of edema ONLINE FACILITATOR exam grossly intact Results - Lab Results Most recent lab results Calcium 8.5 mg/dL (8.4-10.2) 08/05/23 06:50 Magnesium 1.9 mg/dL (1.6-2.3) 08/04/23 15:18 08/05/23 06:50 08/05/23 06:50 Assessment and Plan Assessment: 1. Acute kidney injury, ATN from hypotension as well as secondary to use of NSAIDs in the setting of use of HEDY inhibitor's prior to admission.ultrasound shows mild right hydronephrosis. There may be an element of obstructive uropathy as well. 2. Severe anion gap metabolic acidosis associated with acute kidney injury. Lactic acid is not elevated. Currently maintained on IV bicarb. 3. Intravascular volume depletion 4. Hyperkalemia associated with acute kidney injury,metabolic acidosis and use of NSAIDs and HEDY inhibitor's prior to admission. 5. Cervical lymphadenopathy rule out metastatic disease with underlying history of bladder cancer. 6. History of bladder cancer status post chemotherapy and radiation therapy in 2020 Plan: .IV fluid bolus Consult urology Check CT of the abdomen Repeat labs Continue to hold HEDY inhibitor's and Celebrex continue to avoid nephrotoxic agents. Thank you for the consultation. We will continue to follow the patient with you during his hospitalization.
--- NOTE | 2023-08-05 11:05 | P.GSCN ---
History of Present Illness Consult date: 08/05/23 Reason for Consult: Right-sided hydronephrosis, bladder cancer History of present illness: This is a 72-year-old male admitted to the hospital with acute kidney injury, urology is consulted for right-sided hydronephrosis. Patient indicated he's been having nausea, vomiting and difficulty eating for the past week secondary to enlargement of lymph nodes in his neck. He's also been experiencing diarrhea and is on Celebrex at home. His creatinine is elevated at 7.1 from a baseline of 1.1. He does have history of muscle invasive bladder cancer that was diagnosed by Dr. Myers he underwent chemotherapy and radiation in 2020, per patient has not had any evidence of cancer recurrence but has not had any recent cystoscopies. Urology is consulted for the finding of mild right-sided hydronephrosis on ultrasound. He denies any gross hematuria or dysuria or difficulty voiding. Denies any flank pain. Denies any history of UTIs, urinary retention, or kidney stones. His bladder scan did show elevated postvoid residual at [address] abdomen and pelvis has been ordered to evaluate the right sided hydronephrosis Review of Systems - Constitutional Reports weakness, Denies chills, Denies fever - EENT Ears, nose, mouth and throat: Reports neck lump, Reports swelling in throat, Denies dysphagia - Cardiovascular Denies chest pain, Denies shortness of breath - Respiratory Denies cough, Denies 7 - Gastrointestinal Reports abdominal pain, Reports diarrhea, Reports nausea, Reports vomiting - Genitourinary Denies dysuria, Denies flank pain, Denies hematuria - Neurological Denies headaches, Denies syncope Past Medical History Past Medical History: Coronary Artery Disease (CAD), Cancer, Diabetes Mellitus, Hyperlipidemia, Hypertension, Myocardial Infarction ([place]), Osteoarthritis (OA) Additional Past Medical History / Comment(s): Bladder cancer stage with treatment, in remission since 2020. IDDM type II, post polio syndrome,leg length discrepancy, bronchitis, chronic low back pain. 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 He is independent. He just started ambulating with a cane or walker Smoking Status: Former smoker Past Alcohol Use History: None Reported Additional Past Alcohol Use History / Comment(s): Pt started smoking in 1968 and quit 07/21/19. Prior ETOH abuse-pt states he hasnt had alcohol in months Past Drug Use History: None Reported - Past Family History Father History Unknown: Yes Mother Additional Family Medical History / Comment(s): Mother of in a MVA when pt was 15 yrs old. Brother(s) Additional Family Medical History / Comment(s): Pt has one brother who of a bowel problem and another brother that of a ruptured aneurysm. Medications and Allergies Home Medications Medication Instructions Recorded Confirmed Type Aspirin 81 mg PO DAILY #90 chewable 07/25/19 08/04/23 Rx Atorvastatin [Lipitor] 80 mg PO DAILY 05/13/20 08/04/23 History Celecoxib [CeleBREX] 200 mg PO DAILY 08/04/23 08/04/23 History Liraglutide [Victoza 3-Sam] 1.8 mg SQ DAILY 08/04/23 08/04/23 History Spironolactone [Aldactone] 25 mg PO DAILY 08/04/23 08/04/23 History Sulfamethox-Tmp 800-160Mg [Bactrim 1 tab PO Q12HR 08/04/23 08/04/23 History DS 800-160 mg] carvediloL [Coreg] 12.5 mg PO DAILY 08/04/23 08/04/23 History hydroCHLOROthiazide 12.5 mg PO DAILY 08/04/23 08/04/23 History lisinopriL [Zestril] 30 mg PO DAILY 08/04/23 08/04/23 History metFORMIN HCL ER [Glucophage XR] 500 mg PO BID 08/04/23 08/04/23 History Allergies Allergy/AdvReac Type Severity Reaction Status Date / Time No Known Allergies Allergy Verified 08/04/23 17:19 Surgical - Exam Vital Signs Temp Pulse Resp BP Pulse Ox 98.4 F 68 20 97/53 94 L 08/04/23 14:47 08/04/23 14:47 08/04/23 14:47 08/04/23 14:47 08/04/23 14:47 - General no distress, moderate pain - Eyes normal ocular movement, no pale - ENT Enlargement of cervical lymph nodes normal nares, normal mucosa - Respiratory normal expansion, normal respiratory effort - Abdomen Abdomen: soft, non tender, no distended - Psychiatric oriented to time, oriented to person, oriented to place Results - Labs 08/05/23 06:50 08/05/23 06:50 Abnormal Lab Results - Last 24 Hours (Table) 08/04/23 08/04/23 08/04/23 Range/Units 15:18 15:18 15:18 WBC 15.6 H (3.8-10.6) k/uL RBC 4.28 L (4.30-5.90) m/uL MCV 105.4 H (80.0-100.0) fL Neutrophils # 14.1 H (1.3-7.7) k/uL Lymphocytes # 0.8 L (1.0-4.8) k/uL Sodium (137-145) mmol/L Potassium 7.8 H* (3.5-5.1) mmol/L Chloride (98-107) mmol/L Carbon Dioxide 8 L* (22-30) mmol/L BUN 106 H* (9-20) mg/dL Creatinine 6.97 H (0.66-1.25) mg/dL Glucose 185 H (74-99) mg/dL POC Glucose (mg/dL) (70-110) mg/dL Troponin I 0.045 H* (0.000-0.034) ng/mL Urine Protein (Negative) Urine Ketones (Negative) Urine Bilirubin (Negative) Ur Squamous Epith Cells (0-4) /hpf Urine Bacteria (None) /hpf Hyaline Casts (0-2) /lpf 08/04/23 08/05/23 08/05/23 Range/Units 21:38 03:00 06:36 WBC (3.8-10.6) k/uL RBC (4.30-5.90) m/uL MCV (80.0-100.0) fL Neutrophils # (1.3-7.7) k/uL Lymphocytes # (1.0-4.8) k/uL Sodium (137-145) mmol/L Potassium 6.1 H* (3.5-5.1) mmol/L Chloride 110 H (98-107) mmol/L Carbon Dioxide 7 L* (22-30) mmol/L BUN 110 H* (9-20) mg/dL Creatinine 7.44 H* (0.66-1.25) mg/dL Glucose 130 H (74-99) mg/dL POC Glucose (mg/dL) 279 H (70-110) mg/dL Troponin I (0.000-0.034) ng/mL Urine Protein Trace H (Negative) Urine Ketones Trace H (Negative) Urine Bilirubin 1+ H (Negative) Ur Squamous Epith Cells 6 H (0-4) /hpf Urine Bacteria Rare H (None) /hpf Hyaline Casts 24 H (0-2) /lpf 08/05/23 08/05/23 Range/Units 06:50 06:50 WBC 12.2 H (3.8-10.6) k/uL RBC 3.80 L (4.30-5.90) m/uL MCV 105.8 H (80.0-100.0) fL Neutrophils # 10.6 H (1.3-7.7) k/uL Lymphocytes # 0.8 L (1.0-4.8) k/uL Sodium 136 L (137-145) mmol/L Potassium 5.3 H (3.5-5.1) mmol/L Chloride (98-107) mmol/L Carbon Dioxide 10 L (22-30) mmol/L BUN 110 H* (9-20) mg/dL Creatinine 7.11 H* (0.66-1.25) mg/dL Glucose 241 H (74-99) mg/dL POC Glucose (mg/dL) (70-110) mg/dL Troponin I (0.000-0.034) ng/mL Urine Protein (Negative) Urine Ketones (Negative) Urine Bilirubin (Negative) Ur Squamous Epith Cells (0-4) /hpf Urine Bacteria (None) /hpf Hyaline Casts (0-2) /lpf Diabetes panel 08/04/23 08/04/23 08/05/23 Range/Units 15:18 21:38 06:50 Sodium 137 138 136 L (137-145) mmol/L Potassium 7.8 H* 6.1 H* 5.3 H (3.5-5.1) mmol/L Chloride 106 110 H 104 (98-107) mmol/L Carbon Dioxide 8 L* 7 L* 10 L (22-30) mmol/L BUN 106 H* 110 H* 110 H* (9-20) mg/dL Creatinine 6.97 H 7.44 H* 7.11 H* (0.66-1.25) mg/dL Glucose 185 H 130 H 241 H (74-99) mg/dL Calcium 8.5 9.3 8.5 (8.4-10.2) mg/dL AST 34 32 28 (17-59) U/L ALT 18 17 16 (4-49) U/L Alkaline Phosphatase 90 71 79 (38-126) U/L Total Protein 7.5 6.6 6.4 (6.3-8.2) g/dL Albumin 4.3 3.7 3.7 (3.5-5.0) g/dL Calcium panel 08/04/23 08/04/23 08/05/23 Range/Units 15:18 21:38 06:50 Calcium 8.5 9.3 8.5 (8.4-10.2) mg/dL Albumin 4.3 3.7 3.7 (3.5-5.0) g/dL Pituitary panel 08/04/23 08/04/23 08/05/23 Range/Units 15:18 21:38 06:50 Sodium 137 138 136 L (137-145) mmol/L Potassium 7.8 H* 6.1 H* 5.3 H (3.5-5.1) mmol/L Chloride 106 110 H 104 (98-107) mmol/L Carbon Dioxide 8 L* 7 L* 10 L (22-30) mmol/L BUN 106 H* 110 H* 110 H* (9-20) mg/dL Creatinine 6.97 H 7.44 H* 7.11 H* (0.66-1.25) mg/dL Glucose 185 H 130 H 241 H (74-99) mg/dL Calcium 8.5 9.3 8.5 (8.4-10.2) mg/dL Adrenal panel 08/04/23 08/04/23 08/05/23 Range/Units 15:18 21:38 06:50 Sodium 137 138 136 L (137-145) mmol/L Potassium 7.8 H* 6.1 H* 5.3 H (3.5-5.1) mmol/L Chloride 106 110 H 104 (98-107) mmol/L Carbon Dioxide 8 L* 7 L* 10 L (22-30) mmol/L BUN 106 H* 110 H* 110 H* (9-20) mg/dL Creatinine 6.97 H 7.44 H* 7.11 H* (0.66-1.25) mg/dL Glucose 185 H 130 H 241 H (74-99) mg/dL Calcium 8.5 9.3 8.5 (8.4-10.2) mg/dL Total Bilirubin 0.7 0.7 0.5 (0.2-1.3) mg/dL AST 34 32 28 (17-59) U/L ALT 18 17 16 (4-49) U/L Alkaline Phosphatase 90 71 79 (38-126) U/L Total Protein 7.5 6.6 6.4 (6.3-8.2) g/dL Albumin 4.3 3.7 3.7 (3.5-5.0) g/dL Assessment and Plan Assessment: 9-year-old male with history of muscle invasive bladder cancer treated with radiation and chemotherapy no evidence of cancer recurrence. Admitted to the hospital with acute kidney injury creatinine of 7.1 from a baseline of 1.1. Discussed that for right-sided hydronephrosis. Nephrology is on board. His acute kidney injury is most likely multifactorial secondary to his NSAID, and his dehydration. On ultrasound hydronephrosis is fairly mild, but a CT has been ordered to further evaluate. His postvoid residual is elevated at 250 mL was. -Recommend placing a Montalvo catheter for maximal bladder decompression, this would also allow to better assess his I's and O's -Follow up on CT abdomen and pelvis
[2023-08-05] MEDS: Acetaminophen-Codeine 300-30mg TAB PO PRN ×2 (11:15→17:02)
[2023-08-05] MEDS: LIRAGLUTIDE 0.6 MG/0.1 ML SQ SCH (11:36)
--- NOTE | 2023-08-05 12:26 | CT ---
EXAMINATION TYPE: CT ChestAbdPelvis wo con DATE OF EXAM: 08/05/2023 COMPARISON: 08/23/2021 HISTORY: abd pain CT DLP: 894.5mGycm Unenhanced CT of the Chest, Abdomen and Pelvis Unenhanced CT of the chest ,abdomen and pelvis is performed. The lack of intravenous contrast limits evaluation of the solid and hollow viscera. Oral contrast: None CT Chest: LUNGS: The lungs are clear and free of infiltrate or atelectasis. No pulmonary nodule or mass is det ected. No pleural effusion or CT evidence of interstitial lung disease. MEDIASTINUM: Thoracic aorta is of normal caliber. The heart is not enlarged. No evidence for media stinal mass or adenopathy. HILAR STRUCTURES: No evidence for mass. No hilar adenopathy is appreciated. OTHER: No significant abnormality. CONTRAST CT ABDOMEN AND PELVIS: LIVER/GB: Layering gallstones are noted. No space occupying hepatic lesion. Biliary tree is of normal caliber. PANCREAS: No inflammation. No distinct mass. SPLEEN: No splenic enlargement. No lesion seen. ADRENALS: No nodule. No thickening. KIDNEYS/BLADDER: There is mild right-sided hydroureteronephrosis without obstructing calculus. Urinar y bladder wall is somewhat thickened at the UVJ however the bladder is decompressed by Montalvo catheter . Renal vascular calcifications are noted bilaterally. No nephrolithiasis. No disctinct renal mass. There is Montalvo balloon catheter noted within the urinary bladder. There is fluid tracking along a pat ent urachus. Urachal infection is not excluded. BOWEL: Small bowel is dilated to 3 cm. There is haziness of the small bowel mesentery. The findings a re nonspecific however ischemic bowel can present in a similar manner. Additional possibilities inclu de infectious and inflammatory enteritis. Lack of contrast limits evaluation. Correlate with the lact ic acid. No evidence for pneumatosis. Large bowel and appendix are within normal limits. No evidence for pneumatosis. No free air or abscess. GENITAL ORGANS: No gross abnormality. LYMPH NODES: No greater than 1cm abdominal or pelvic lymph nodes areappreciated. AORTA: No significant abnormality. OSSEOUS STRUCTURES: No significant abnormality is seen. OTHER: No significant additional abnormality is seen. IMPRESSION: 1. Small bowel is dilated to 3 cm. There is haziness of the small bowel mesentery. The findings are n onspecific however ischemic bowel can present in a similar manner. Additional possibilities include i nfectious and inflammatory enteritis. Lack of contrast limits evaluation. Correlate with the lactic a [place]. 2. Mild right-sided hydronephrosis without obstructing calculus. 3. There appears to be patent urachus with fluid tracking along the patent urachus and superimposed i nfection is not excluded. 4. Cholelithiasis.
--- NOTE | 2023-08-05 13:08 | CT ---
EXAMINATION TYPE: CT soft tissue neck wo con DATE OF EXAM: 08/05/2023 COMPARISON: None HISTORY: left sided neck mass CT DLP: 293.[address] of the neck was performed from the skull base through the lung apices. AIRWAY: The supraglottic, glottic, and subglottic portions of the airway appear patent and free of mass. SALIVARY GLANDS: There is enlargement of the left parotid gland with surrounding the inflammatory att enuation as well as skin thickening. There is also inflammatory thickening of the left sternocleidoma stoid musculature. Surrounding reactive adenopathy is noted. The findings likely reflect parotitis. N o obstructing calculus is seen. There is also reactive inflammatory thickening of the left-sided para spinal musculature. THYROID GLAND: No nodules or masses seen. LYMPH NODES: No adenopathy seen greater than 1cm. LUNG APICES: No nodule or mass is seen. OTHER: Vascular structures are patent. No significant degenerative change of the cervical spine. N o abscess seen. IMPRESSION: 1. Findings are likely reflective of left-sided parotiditis. There is reactive adenopathy is surround ing inflammatory change in scattered skin thickening. There is thickening of the left-sided sternocle idomastoid musculature and paraspinal muscles. Neoplasm is not excluded. Correlate clinically.
--- NOTE | 2023-08-05 13:22 | P.CNPUL ---
History of Present Illness Consult date: 08/05/23 Requesting physician: Lane Vergara Reason for consult: other (Acute hyperkalemia and acute renal failure) Chief complaint: Nausea vomiting diarrhea and neck mass History of present illness: This is a 72-year-old white male with history of bladder carcinoma/transitional cell carcinoma status post chemo and radiation back in 2020. Patient presented to the hospital yesterday with multiple constitutional symptoms including intermittent episodes of nausea vomiting diarrhea weakness and he was also complaining of a neck mass that was initially noted few months ago on the left side of the neck right at the level of the parotid gland and mandibular area extending to the neck region. Ultrasound previously on this mass showed multiple clusters of lymph nodes patient was supposed to have a CT of the neck but this was never done. And he never followed up with anyone regarding his neck masses. At any rate patient presented to the hospital, he had all these multiple complaints, and he was noted to have significantly elevated potassium of 7.8 elevated BUN and creatinine with creatinine as high as 7.44 looking back at his previous labs, patient did have elevated creatinine back in October however the highest it has been was ranging between 1.4 up to 3.1. Obviously the patient is presenting with acute on chronic kidney injury. CT of the soft tissue of the deck showed left sided parotitis, it also showed reactive lymphadenopathy surrounding inflammatory change with skin thickening on the left side of the sternocleidomastoid musculature and paraspinal muscles. Neoplasm is not entirely excluded, and ENT consultation is pending. Considering his hyperkalemia patient was treated as per protocol, renal ultrasound along showed right sided hydronephrosis/mild. Patient was seen by nephrology in consultation and his potassium came down nicely with treatment, continues to have significant findings of acute kidney injury patient was seen by urology for his hydronephrosis and recommended [place] catheter placement for maximal bladder decompression and recommended follow-up CT of abdomen and pelvis. When I evaluated the patient, I felt that the patient could be transferred the ICU to a monitored bed on selective and also initiated consultation with ENT regarding his left neck mass. Review of Systems Constitutional: As noted in HPI HEENT: As noted in HPI Pulmonary: Asymptomatic no cough no wheezing no shortness of breath Cardiac: Negative patient is known to have history of coronary arteriosclerosis and previous [place] GI: Negative Genitourinary: History of bladder cancer, no symptoms Musculoskeletal: Negative Hematologic: Negative Psychiatric: Negative Endocrine: Negative Neurologic: Negative Past Medical History Past Medical History: Coronary Artery Disease (CAD), Cancer, Diabetes Mellitus, Hyperlipidemia, Hypertension, Myocardial Infarction ([place]), Osteoarthritis (OA) Additional Past Medical History / Comment(s): Bladder cancer stage with treatment, in remission since 2020. IDDM type II, post polio syndrome,leg length discrepancy, bronchitis, chronic low back pain. Last Myocardial Infarction Date:: 07/23/19 History of Any Multi-Drug Resistant Organisms: None Reported Past Surgical History: Heart Catheterization With Stent, Orthopedic Surgery Additional Past Surgical History / Comment(s): Cystoscopy, TURBT x2, closure of patent urachus bladder tumor as , R leg surgery d/t polio-lengthening, cardiac stents 2018; Right hip surgery 11/03/2022 Past Anesthesia/Blood Transfusion Reactions: No Reported Reaction Date of Last Stent Placement:: 07/23/19 Past Psychological History: No Psychological Hx Reported Additional Psychological History / Comment(s): Pt resides with his spouse. He is independent. He just started ambulating with a cane or walker Smoking Status: Former smoker Past Alcohol Use History: None Reported Additional Past Alcohol Use History / Comment(s): Pt started smoking in 1968 and quit 07/21/19. Prior ETOH abuse-pt states he hasnt had alcohol in months Past Drug Use History: None Reported - Past Family History Father History Unknown: Yes Mother Additional Family Medical History / Comment(s): Mother of in a MVA when pt was 15 yrs old. Brother(s) Additional Family Medical History / Comment(s): Pt has one brother who of a bowel problem and another brother that of a ruptured aneurysm. Medications and Allergies Home Medications Medication Instructions Recorded Confirmed Type Aspirin 81 mg PO DAILY #90 chewable 07/25/19 08/04/23 Rx Atorvastatin [Lipitor] 80 mg PO DAILY 05/13/20 08/04/23 History Celecoxib [CeleBREX] 200 mg PO DAILY 08/04/23 08/04/23 History Liraglutide [Victoza 3-Sam] 1.8 mg SQ DAILY 08/04/23 08/04/23 History Spironolactone [Aldactone] 25 mg PO DAILY 08/04/23 08/04/23 History Sulfamethox-Tmp 800-160Mg [Bactrim 1 tab PO Q12HR 08/04/23 08/04/23 History DS 800-160 mg] carvediloL [Coreg] 12.5 mg PO DAILY 08/04/23 08/04/23 History hydroCHLOROthiazide 12.5 mg PO DAILY 08/04/23 08/04/23 History lisinopriL [Zestril] 30 mg PO DAILY 08/04/23 08/04/23 History metFORMIN HCL ER [Glucophage XR] 500 mg PO BID 08/04/23 08/04/23 History Allergies Allergy/AdvReac Type Severity Reaction Status Date / Time No Known Allergies Allergy Verified 08/04/23 17:19 Physical Exam Vitals: Vital Signs Temp Pulse Resp BP Pulse Ox 08/05/23 12:02 98.3 F 85 18 132/52 96 08/05/23 11:30 88 23 138/56 96 08/05/23 11:00 87 20 116/54 96 08/05/23 10:30 94 23 96 08/05/23 10:00 91 23 128/54 95 08/05/23 09:30 91 18 97 08/05/23 09:00 91 21 97 08/05/23 08:30 94 17 132/52 96 08/05/23 08:00 96 16 112/60 92 L 08/05/23 07:30 103 H 19 112/60 98 08/05/23 07:00 98.0 F 104 H 20 135/60 97 08/05/23 06:50 97.7 F 95 27 H 135/60 96 08/05/23 05:53 86 19 116/44 97 08/05/23 04:15 89 19 08/05/23 00:11 90 19 131/40 08/04/23 21:14 89 18 106/44 96 08/04/23 20:08 100 08/04/23 19:40 92 08/04/23 18:55 82 22 144/78 98 08/04/23 14:47 98.4 F 68 20 97/53 94 L Intake and Output 08/04/23 08/05/23 08/05/23 22:59 06:59 14:59 Intake Total 1500 Output Total 300 Balance 1200 Intake: Intake, IV Titration 1500 Amount Dextrose 5% in Water 1, 500 000 ml @ 100 mls/hr IV . [id number] GURDEEP with Sodium Bicarb (1 Meq/ml) 150 ml Rx#:[id number] Sodium Chloride 0.9% 1, 1000 000 ml @ 999 mls/hr IV . Q1H1M ONE Rx#:[id number] Output: Urine 300 Other: Weight 81.647 kg Physical Exam: Revealed a 72-year-old white male in no distress Head: Atraumatic, normocephalic HEENT:[Neck is supple.] [] [No thyromegaly.] [No JVD.] At least a 6 cm mass, visible and palpable in the left neck region over the parotid gland and over the neck region. Chest: [Clear throughout, no crackles, no rhonchi, no wheezes.] Cardiac Exam: [Normal S1 and S2, no S3 gallop, no murmur.] Abdomen: [Soft, nontender, no megaly, no rebound, no guarding, normal bowel sounds.] Extremities: [No clubbing, no edema, no cyanosis.] Neurological Exam: [No focal neurologic deficit.] Alert oriented 3 Psychiatric: Normal mood, affect and normal mental status examination. Skin: No rashes. Results - Laboratory Findings CBC and BMP: 08/05/23 06:50 08/05/23 12:25 Abnormal lab findings: Abnormal Labs 08/04/23 08/04/23 08/04/23 15:18 15:18 15:18 WBC 15.6 H RBC 4.28 L MCV 105.4 H Neutrophils # 14.1 H Lymphocytes # 0.8 L Sodium Potassium 7.8 H* Chloride Carbon Dioxide 8 L* BUN 106 H* Creatinine 6.97 H Glucose 185 H POC Glucose (mg/dL) Troponin I 0.045 H* Urine Protein Urine Ketones Urine Bilirubin Ur Squamous Epith Cells Urine Bacteria Hyaline Casts 08/04/23 08/05/23 08/05/23 21:38 03:00 06:36 WBC RBC MCV Neutrophils # Lymphocytes # Sodium Potassium 6.1 H* Chloride 110 H Carbon Dioxide 7 L* BUN 110 H* Creatinine 7.44 H* Glucose 130 H POC Glucose (mg/dL) 279 H Troponin I Urine Protein Trace H Urine Ketones Trace H Urine Bilirubin 1+ H Ur Squamous Epith Cells 6 H Urine Bacteria Rare H Hyaline Casts 24 H 08/05/23 08/05/23 06:50 06:50 WBC 12.2 H RBC 3.80 L MCV 105.8 H Neutrophils # 10.6 H Lymphocytes # 0.8 L Sodium 136 L Potassium 5.3 H Chloride Carbon Dioxide 10 L BUN 110 H* Creatinine 7.11 H* Glucose 241 H POC Glucose (mg/dL) Troponin I Urine Protein Urine Ketones Urine Bilirubin Ur Squamous Epith Cells Urine Bacteria Hyaline Casts - Diagnostic Findings Additional studies: CT chest abdomen and pelvis report was noted, no evidence of any pulmonary pathology, there is evidence of small bowel dilatation to 3 cm and haziness of the small bowel mesentery, findings are nonspecific. There is also evidence of cholelithiasis. Assessment and Plan Assessment: Impression: Acute on chronic kidney injury, suspect acute tubular necrosis, etiology to be determined patient has been using nonsteroidal anti-inflammatory drugs and has been on phoenix inhibitors Mild obstructive uropathy/hydronephrosis is another contributing factor Severe anion gap metabolic acidosis related to his acute kidney injury Suspect significant component of dehydration considering his GI symptoms on presentation. Left sided cervical adenopathy and possible parotid gland mass, needs further evaluation and ENT was consulted History of bladder cancer status post chemotherapy and radiation therapy in 2020 Accommodation: Continue present treatment plan as per nephrology on the case Urology is following regarding his hydronephrosis Continue to monitor electrolytes and renal profile on a daily basis Continue to monitor potassium and address accordingly transfer patient out of the ICU to a cardiac floor today, considering the correction of his potassium, patient could be transferred does not need ICU stay ENT to follow regarding his left neck mass CT of the soft tissues of the neck was reviewed CT of the chest abdomen and pelvis was reviewed We'll continue to follow Time with Patient: Greater than 30
[2023-08-05 16:46] LABS: Glucose,Whole Blood 282 mg/dL (70-110)
--- NOTE | 2023-08-05 17:28 | P.CONS ---
History of Present Illness - Reason for Consult Consult date: 08/05/23 left neck mass Requesting physician: Aiden Dale - Chief Complaint n/v/d, weakness - History of Present Illness Patient is a 72 year old male with a significant hx of bladder cancer. Consult was placed for neck mass. He is a patient of Dr. Banda. He initially presented with gross hematuria following following start of Plavix after PTCA and coronary stents placement by Dr Pennington in Aug 2019. He was referred to Dr Myers and had cystoscopy on 12/15/19 revealing high-grade urothelial carcinoma. 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 CT Scan of CAP did not identify systemic disease or gross pelvic lymphadenopathy. He was re-evaluated by Dr Rosado and Dr Beltrán, given option of radical cystectomy V/S concurrent radiation therapy/Chemotherapy, which he opted for. Patient completed concurrent chemo/RT, with cisplatin/taxol in 06/2020. He continued f/u and repeat scans and cystoscopy/biopsies were negative and at last f/u in 11/2021, he was scheduled for repeat CAP and f/u with Dr. Rosado for repeat cystoscopy for 02/2022. He reports scan and scope was negative and then lost f/u with Dr. Rosado due to loss of his insurance and has not had f/u since. Patient presented to the emergency room with complaints of nausea vomiting diarrhea, decreased oral intake and generalized weakness over the last 5 days. Upon admission potassium was noted at 7.8 and creatinine of 6.97 and GFR 7. Chest x-ray revealed no acute cardiopulmonary processes. Abdominal x-ray showed nonspecific bowel gas pattern without evidence for acute processes. Kidney ultrasound revealed mild right-sided hydronephrosis with no evidence of left- sided hydronephrosis. UA negative for acute UTI, revealed trace proteins and ketones. Blood cultures pending. Urology and nephrology have been consulted. CBC stable, WBC12.2, Hgb 13.1, platelets 198,000, Patient reports that he has been having increasing left sided neck swelling and discomfort over the last 1 month. Patient reports he initially thought this was a bug bite but swelling has progressively worsened. Patient had ultrasound soft tissue neck on 07/24/2023 which revealed numerous thickened and borderline enlarged lymph nodes along the left side of the neck. With largest measuring 1.8 x 1.1 x 1.2 cm. Patient was was subsequently scheduled for a CT neck, but has yet to been obtained. Patient denies dysphagia. Denies unintentional weight loss. Denies night sweats. But does report decrease in appetite. Review of Systems 10 point ROS is negative except as stated in the HPI Past Medical History Past Medical History: Coronary Artery Disease (CAD), Cancer, Diabetes Mellitus, Hyperlipidemia, Hypertension, Myocardial Infarction ([place]), Osteoarthritis ([place]) Additional Past Medical History / Comment(s): Bladder cancer stage with treatment, in remission since 2020. IDDM type II, post polio syndrome,leg length discrepancy, bronchitis, chronic low back pain. Last Myocardial Infarction Date:: 07/23/19 History of Any Multi-Drug Resistant Organisms: None Reported Past Surgical History: Heart Catheterization With Stent, Orthopedic Surgery Additional Past Surgical History / Comment(s): Cystoscopy, TURBT x2, closure of patent urachus bladder tumor as , R leg surgery d/t polio-lengthening, cardiac stents 2018; Right hip surgery 11/03/2022 Past Anesthesia/Blood Transfusion Reactions: No Reported Reaction Date of Last Stent Placement:: 07/23/19 Past Psychological History: No Psychological Hx Reported Additional Psychological History / Comment(s): Pt resides with his spouse. He is independent. He just started ambulating with a cane or walker Smoking Status: Former smoker Past Alcohol Use History: None Reported Additional Past Alcohol Use History / Comment(s): Pt started smoking in 1968 and quit 07/21/19. Prior ETOH abuse-pt states he hasnt had alcohol in months Past Drug Use History: None Reported - Past Family History Father History Unknown: Yes Mother Additional Family Medical History / Comment(s): Mother of in a MVA when pt was 15 yrs old. Brother(s) Additional Family Medical History / Comment(s): Pt has one brother who of a bowel problem and another brother that of a ruptured aneurysm. Medications and Allergies Home Medications Medication Instructions Recorded Confirmed Type Aspirin 81 mg PO DAILY #90 chewable 07/25/19 08/04/23 Rx Atorvastatin [Lipitor] 80 mg PO DAILY 05/13/20 08/04/23 History Celecoxib [CeleBREX] 200 mg PO DAILY 08/04/23 08/04/23 History Liraglutide [Victoza 3-Sam] 1.8 mg SQ DAILY 08/04/23 08/04/23 History Spironolactone [Aldactone] 25 mg PO DAILY 08/04/23 08/04/23 History Sulfamethox-Tmp 800-160Mg [Bactrim 1 tab PO Q12HR 08/04/23 08/04/23 History DS 800-160 mg] carvediloL [Coreg] 12.5 mg PO DAILY 08/04/23 08/04/23 History hydroCHLOROthiazide 12.5 mg PO DAILY 08/04/23 08/04/23 History lisinopriL [Zestril] 30 mg PO DAILY 08/04/23 08/04/23 History metFORMIN HCL ER [Glucophage XR] 500 mg PO BID 08/04/23 08/04/23 History Allergies Allergy/AdvReac Type Severity Reaction Status Date / Time No Known Allergies Allergy Verified 08/04/23 17:19 Physical Exam Vitals: Vital Signs Temp Pulse Resp BP Pulse Ox 08/05/23 10:00 91 23 128/54 95 08/05/23 09:30 91 18 97 08/05/23 09:00 91 21 97 08/05/23 08:30 94 17 132/52 96 08/05/23 08:00 96 16 112/60 92 L 08/05/23 07:30 103 H 19 112/60 98 08/05/23 07:00 98.0 F 104 H 20 135/60 97 08/05/23 06:50 97.7 F 95 27 H 135/60 96 08/05/23 05:53 86 19 116/44 97 08/05/23 04:15 89 19 08/05/23 00:11 90 19 131/40 08/04/23 21:14 89 18 106/44 96 08/04/23 20:08 100 08/04/23 19:40 92 08/04/23 18:55 82 22 144/78 98 08/04/23 14:47 98.4 F 68 20 97/53 94 L Intake and Output 08/04/23 08/05/23 08/05/23 22:59 06:59 14:59 Intake Total 200 Output Total 100 Balance 100 Intake: Intake, IV Titration 200 Amount Dextrose 5% in Water 1, 200 000 ml @ 100 mls/hr IV . [id number] GURDEEP with Sodium Bicarb (1 Meq/ml) 150 ml Rx#:[id number] Output: Urine 100 Other: Weight 81.647 kg - Constitutional General appearance: no acute distress - EENT Eyes: anicteric sclerae, EOMI ENT: hearing grossly normal - Neck large left sided neck mass noted, non-tender to palpation. No axillary LAD palpated Neck: lymphadenopathy - Respiratory Respiratory: bilateral: CTA - Cardiovascular Rhythm: regular Heart sounds: normal: S1, S2 Abnormal Heart Sounds: no systolic murmur, no diastolic murmur, no rub, no S3 Gallop, no S4 Gallop, no click, no other - Gastrointestinal General gastrointestinal: soft, no tenderness - Integumentary Integumentary: no cyanotic - Musculoskeletal Musculoskeletal: generalized weakness - Psychiatric Psychiatric: A&O x's 3, appropriate affect, intact judgment & insight Results CBC & Chem 7: 08/05/23 06:50 08/05/23 12:25 Labs: Abnormal Lab Results - Last 24 Hours (Table) 08/04/23 08/04/23 08/04/23 Range/Units 15:18 15:18 15:18 WBC 15.6 H (3.8-10.6) k/uL RBC 4.28 L (4.30-5.90) m/uL MCV 105.4 H (80.0-100.0) fL Neutrophils # 14.1 H (1.3-7.7) k/uL Lymphocytes # 0.8 L (1.0-4.8) k/uL Sodium (137-145) mmol/L Potassium 7.8 H* (3.5-5.1) mmol/L Chloride (98-107) mmol/L Carbon Dioxide 8 L* (22-30) mmol/L BUN 106 H* (9-20) mg/dL Creatinine 6.97 H (0.66-1.25) mg/dL Glucose 185 H (74-99) mg/dL POC Glucose (mg/dL) (70-110) mg/dL Troponin I 0.045 H* (0.000-0.034) ng/mL Urine Protein (Negative) Urine Ketones (Negative) Urine Bilirubin (Negative) Ur Squamous Epith Cells (0-4) /hpf Urine Bacteria (None) /hpf Hyaline Casts (0-2) /lpf 08/04/23 08/05/23 08/05/23 Range/Units 21:38 03:00 06:36 WBC (3.8-10.6) k/uL RBC (4.30-5.90) m/uL MCV (80.0-100.0) fL Neutrophils # (1.3-7.7) k/uL Lymphocytes # (1.0-4.8) k/uL Sodium (137-145) mmol/L Potassium 6.1 H* (3.5-5.1) mmol/L Chloride 110 H (98-107) mmol/L Carbon Dioxide 7 L* (22-30) mmol/L BUN 110 H* (9-20) mg/dL Creatinine 7.44 H* (0.66-1.25) mg/dL Glucose 130 H (74-99) mg/dL POC Glucose (mg/dL) 279 H (70-110) mg/dL Troponin I (0.000-0.034) ng/mL Urine Protein Trace H (Negative) Urine Ketones Trace H (Negative) Urine Bilirubin 1+ H (Negative) Ur Squamous Epith Cells 6 H (0-4) /hpf Urine Bacteria Rare H (None) /hpf Hyaline Casts 24 H (0-2) /lpf 08/05/23 08/05/23 Range/Units 06:50 06:50 WBC 12.2 H (3.8-10.6) k/uL RBC 3.80 L (4.30-5.90) m/uL MCV 105.8 H (80.0-100.0) fL Neutrophils # 10.6 H (1.3-7.7) k/uL Lymphocytes # 0.8 L (1.0-4.8) k/uL Sodium 136 L (137-145) mmol/L Potassium 5.3 H (3.5-5.1) mmol/L Chloride (98-107) mmol/L Carbon Dioxide 10 L (22-30) mmol/L BUN 110 H* (9-20) mg/dL Creatinine 7.11 H* (0.66-1.25) mg/dL Glucose 241 H (74-99) mg/dL POC Glucose (mg/dL) (70-110) mg/dL Troponin I (0.000-0.034) ng/mL Urine Protein (Negative) Urine Ketones (Negative) Urine Bilirubin (Negative) Ur Squamous Epith Cells (0-4) /hpf Urine Bacteria (None) /hpf Hyaline Casts (0-2) /lpf Comments: US soft tissue neck and Kidney US reviewed Chest x-ray: report reviewed Assessment and Plan (1) Acute hyperkalemia Current Visit: Yes Status: Acute Priority: High Code(s): E87.5 - HYPERKALEMIA SNOMED Code(s): 8086192 (2) Acute kidney injury Current Visit: Yes Status: Acute Priority: High Code(s): N17.9 - ACUTE KIDNEY FAILURE, UNSPECIFIED SNOMED Code(s): 38017655 (3) Mass of left side of neck Current Visit: Yes Status: Acute Priority: High Code(s): R22.1 - LOCALIZED SWELLING, MASS AND LUMP, NECK SNOMED Code(s): 183412264 (4) Bladder cancer Current Visit: Yes Status: Acute Priority: Medium Code(s): C67.9 - MA LIGNANT NEOPLASM OF BLADDER, UNSPECIFIED SNOMED Code(s): 203076534 (5) Dehydration Current Visit: Yes Status: Acute Priority: High Code(s): E86.0 - D EHYDRATION SNOMED Code(s): 15848992 Plan: EDITH/hyperkalemia: -Upon admission creatinine 6.97, GFR 7. Creatinine 7.11 today -Potassium was found to be 7.8. Improved today at 5.3 -Nephrology following, thought to be ATN r/t hypotension secondary to NSAID use and HEDY inhibitor -Defer management to IM team and consulted specialities Left neck mass: -Reports increasing left sided neck swelling and discomfort over the last 1 month. He initially thought this was a bug bite but swelling has progressively worsened. -Ultrasound soft tissue neck on 07/24/2023 revealed numerous thickened and borderline enlarged lymph nodes along the left side of the neck. With largest measuring 1.8 x 1.1 x 1.2 cm. Patient was was subsequently scheduled for a CT neck, but has yet to be obtained -Denies unintentional weight loss. Denies night sweats. But does report decrease in appetite -ENT consulted -CT soft tissue neck and CT CAP ordered -Will likely need biopsy. Will await scans and ENT evaluation, and provide further recommendations pending workup Pt and family updated on results and POC Bladder cancer: -History as stated in HPI -Completed treatment with concurrent chemo/RT in 06/2020. Was following up for observation in clinic through 11/2021 with no evidence of recurrence. Stopped f/u with urology in February 2022 due to insurance reasons, and has not had f/u since
[2023-08-05] MEDS ORDERED: DEXTROSE 50% SYRINGE 50 ML IVP PRN ×2 (18:08)
--- NOTE | 2023-08-05 18:11 | P.HPIM ---
History of Present Illness H&P Date: 08/05/23 Chief Complaint: Neck lump pain Pleasant 72-year-old patient who follows with Dr. Johnny Rubio./Mid-level provider-Kareen. Chronic stable medical conditions include CAD with stent in 2018, diabetes, hypertension, hyperlipidemia, osteoporosis, bladder cancer with treatment in remission and cystoscopy 2020, patient had right hip surgery in October of this year now does use a walker when he goes outside. Otherwise a cane. Patient came to the ER as patient was having significant pain in the left neck mass. No masses. Diagnosed in June. Was given a course of antibiotic to the primary care's office. Not much response. And patient underwent ultrasound. Subsequently a CAT scan was ordered that is pending to be done. Patient progressively in the last few days has started having increasing pain in the left neck mass. Has been having nausea vomiting for the last 2 days. No obvious fever. In the ER found to be in renal failure. Patient is taking Tylenol arthritis at home. Patient is accompanied by his . Denies any loss of weight. No change in swallowing or trouble eating. 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 Patient Smoked for 50 Years Stopped in 2018. Also Is Drinking Excessive Alcohol up to 2019. Physical examination: VITAL SIGNS: 97.7, 95, 20, 135/60, 96% room air, GENERAL: BMI 27.4, sitting but awake tired appearing. EYES: Pupils equal. Conjunctiva normal. HEENT: External appearance of nose and ears normal, oral cavity grossly normal. NECK: JVD not raised; masses not palpable. Hard mass of the left upper neck going to the mandible. Hard. Some tenderness. HEART: First and second heart sounds are normal; no edema. LUNGS: Respiratory rate normal; decreased breath sounds. ABDOMEN: Soft, nontender, liver spleen not palpable, no masses palpable. PSYCH: Alert and oriented x3; mood and affect normal. MUSCULOSKELETAL:No Clubbing/cyanosis;muscles-grossly intact. OA NEUROLOGICAL: Cranial nerves grossly intact; no facial asymmetry, power and sensation grossly intact. LYMPHATICS: No lymph nodes palpable in the axilla and neck INVESTIGATIONS, reviewed in the clinical context: CT soft tissue neck without contrast: Enlargement of the left parotid gland with surrounding the inflammatory attenuation as well as skeletal thinking. Also inflammatory thickening of the left sternocleidomastoid musculature. Surrounding reactive adenopathy. No obstructing Loss. CT chest abdomen pelvis: Small bowel guarded to 3 cm. Mild right-sided hydronephrosis. Gallstones August 05: White count 12.2 hemoglobin 13.1 platelets 198 sodium 136 potassium 5. 3 repeat 4.2 BUN 110 crit and 7.11 August 04: White count 15.6 hemoglobin 14.5 sodium 137 potassium 7.8 BUN 106 creatinine 6.97 bicarb 8 Troponin I 0.045 UA trace protein Influenza type A, B, RSV, COVID-19: Not detected Chest x-ray film personally reviewed by me-hyperinflation. Some pulmonary artery prominence EKG tracing personally reviewed by me-possible ectopic atrial rhythm. Ultrasound kidney: Mild right-sided hydronephrosis. Previous labs: 11/07/2022: Creatinine 1.13 Ultrasound soft tissue left neck: [07/24/2023] numerous thickened and borderline enlarged lymph nodes along the left side of neck. Assessment and plan: -Acute kidney injury, likely ATN. Patient been having nausea vomiting at home and not drinking. Patient also was on metformin, Zestril, hydrochlorothiazide, Aldactone, Bactrim DS. And Celebrex.-All of the above are being discontinued Sodium bicarbonate drip. Nephrology following. Kidney ultrasound noted -Severe hyperkalemia from renal failure Aldactone, Zestril, Bactrim all discontinued Bicarbonate drip. IV fluids. Renal diet. Insulin. Kayexalate. -Severe metabolic acidosis from renal failure IV bicarbonate drip. -Left upper neck mass. 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 Need to rule out underlying malignancy. IV ceftriaxone. Warm compress -CAD with stent 2019 Aspirin. Coreg -Hyperlipidemia Lipitor -Diabetes mellitus type 2 on oral hypoglycemic Follow Accu-Cheks and sliding scale Levemir 12 units subcu daily at bedtime. Hold oral hypoglycemic -Full code Care was discussed with the patient and at the bedside. Consultation to nephrology., Driver Material Handler, ENT. Strict I's and O's. Past Medical History Past Medical History: Coronary Artery Disease (CAD), Cancer, Diabetes Mellitus, Hyperlipidemia, Hypertension, Myocardial Infarction (ME), Osteoarthritis (OA) Additional Past Medical History / Comment(s): Bladder cancer stage with treatment, in remission since 2020. IDDM type II, post polio syndrome,leg length discrepancy, bronchitis, chronic low back pain. 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 He is independent. He just started ambulating with a cane or walker Smoking Status: Former smoker Past Alcohol Use History: None Reported Additional Past Alcohol Use History / Comment(s): Pt started smoking in 1968 and quit 07/21/19. Prior ETOH abuse-pt states he hasnt had alcohol in months Past Drug Use History: None Reported - Past Family History Father History Unknown: Yes Mother Additional Family Medical History / Comment(s): Mother of in a MVA when pt was 15 yrs old. Brother(s) Additional Family Medical History / Comment(s): Pt has one brother who of a bowel problem and another brother that of a ruptured aneurysm. Medications and Allergies Home Medications Medication Instructions Recorded Confirmed Type Aspirin 81 mg PO DAILY #90 chewable 07/25/19 08/04/23 Rx Atorvastatin [Lipitor] 80 mg PO DAILY 05/13/20 08/04/23 History Celecoxib [CeleBREX] 200 mg PO DAILY 08/04/23 08/04/23 History Liraglutide [Victoza 3-Sam] 1.8 mg SQ DAILY 08/04/23 08/04/23 History Spironolactone [Aldactone] 25 mg PO DAILY 08/04/23 08/04/23 History Sulfamethox-Tmp 800-160Mg [Bactrim 1 tab PO Q12HR 08/04/23 08/04/23 History DS 800-160 mg] carvediloL [Coreg] 12.5 mg PO DAILY 08/04/23 08/04/23 History hydroCHLOROthiazide 12.5 mg PO DAILY 08/04/23 08/04/23 History lisinopriL [Zestril] 30 mg PO DAILY 08/04/23 08/04/23 History metFORMIN HCL ER [Glucophage XR] 500 mg PO BID 08/04/23 08/04/23 History Allergies Allergy/AdvReac Type Severity Reaction Status Date / Time No Known Allergies Allergy Verified 08/04/23 17:19 Physical Exam Vitals: Vital Signs Temp Pulse Resp BP Pulse Ox 08/05/23 11:00 87 20 116/54 96 08/05/23 10:30 94 23 96 08/05/23 10:00 91 23 128/54 95 08/05/23 09:30 91 18 97 08/05/23 09:00 91 21 97 08/05/23 08:30 94 17 132/52 96 08/05/23 08:00 96 16 112/60 92 L 08/05/23 07:30 103 H 19 112/60 98 08/05/23 07:00 98.0 F 104 H 20 135/60 97 08/05/23 06:50 97.7 F 95 27 H 135/60 96 08/05/23 05:53 86 19 116/44 97 08/05/23 04:15 89 19 08/05/23 00:11 90 19 131/40 08/04/23 21:14 89 18 106/44 96 08/04/23 20:08 100 08/04/23 19:40 92 08/04/23 18:55 82 22 144/78 98 08/04/23 14:47 98.4 F 68 20 97/53 94 L Intake and Output 08/04/23 08/05/23 08/05/23 22:59 06:59 14:59 Intake Total 400 Output Total 100 Balance 300 Intake: Intake, IV Titration 400 Amount Dextrose 5% in Water 1, 400 000 ml @ 100 mls/hr IV . [id number] GURDEEP with Sodium Bicarb (1 Meq/ml) 150 ml Rx#:[id number] Output: Urine 100 Other: Weight 81.647 kg Results CBC & Chem 7: 08/05/23 06:50 08/05/23 12:25 Labs: Abnormal Lab Results - Last 24 Hours (Table) 08/04/23 08/04/23 08/04/23 Range/Units 15:18 15:18 15:18 WBC 15.6 H (3.8-10.6) k/uL RBC 4.28 L (4.30-5.90) m/uL MCV 105.4 H (80.0-100.0) fL Neutrophils # 14.1 H (1.3-7.7) k/uL Lymphocytes # 0.8 L (1.0-4.8) k/uL Sodium (137-145) mmol/L Potassium 7.8 H* (3.5-5.1) mmol/L Chloride (98-107) mmol/L Carbon Dioxide 8 L* (22-30) mmol/L BUN 106 H* (9-20) mg/dL Creatinine 6.97 H (0.66-1.25) mg/dL Glucose 185 H (74-99) mg/dL POC Glucose (mg/dL) (70-110) mg/dL Troponin I 0.045 H* (0.000-0.034) ng/mL Urine Protein (Negative) Urine Ketones (Negative) Urine Bilirubin (Negative) Ur Squamous Epith Cells (0-4) /hpf Urine Bacteria (None) /hpf Hyaline Casts (0-2) /lpf 08/04/23 08/05/23 08/05/23 Range/Units 21:38 03:00 06:36 WBC (3.8-10.6) k/uL RBC (4.30-5.90) m/uL MCV (80.0-100.0) fL Neutrophils # (1.3-7.7) k/uL Lymphocytes # (1.0-4.8) k/uL Sodium (137-145) mmol/L Potassium 6.1 H* (3.5-5.1) mmol/L Chloride 110 H (98-107) mmol/L Carbon Dioxide 7 L* (22-30) mmol/L BUN 110 H* (9-20) mg/dL Creatinine 7.44 H* (0.66-1.25) mg/dL Glucose 130 H (74-99) mg/dL POC Glucose (mg/dL) 279 H (70-110) mg/dL Troponin I (0.000-0.034) ng/mL Urine Protein Trace H (Negative) Urine Ketones Trace H (Negative) Urine Bilirubin 1+ H (Negative) Ur Squamous Epith Cells 6 H (0-4) /hpf Urine Bacteria Rare H (None) /hpf Hyaline Casts 24 H (0-2) /lpf 08/05/23 08/05/23 Range/Units 06:50 06:50 WBC 12.2 H (3.8-10.6) k/uL RBC 3.80 L (4.30-5.90) m/uL MCV 105.8 H (80.0-100.0) fL Neutrophils # 10.6 H (1.3-7.7) k/uL Lymphocytes # 0.8 L (1.0-4.8) k/uL Sodium 136 L (137-145) mmol/L Potassium 5.3 H (3.5-5.1) mmol/L Chloride (98-107) mmol/L Carbon Dioxide 10 L (22-30) mmol/L BUN 110 H* (9-20) mg/dL Creatinine 7.11 H* (0.66-1.25) mg/dL Glucose 241 H (74-99) mg/dL POC Glucose (mg/dL) (70-110) mg/dL Troponin I (0.000-0.034) ng/mL Urine Protein (Negative) Urine Ketones (Negative) Urine Bilirubin (Negative) Ur Squamous Epith Cells (0-4) /hpf Urine Bacteria (None) /hpf Hyaline Casts (0-2) /lpf Thrombosis Risk Factor Assmnt - Choose All That Apply Each Risk Factor Represents 2 Points: Age 61-74 years Thrombosis Risk Factor Assessment Total Risk Factor Score: 2 Thrombosis Risk Factor Assessment Level: Low Risk
[2023-08-05] MEDS: INSULIN ASPART (NovoLOG) 100 UNIT/ML VIAL SQ SCH (18:43)
[2023-08-05 21:09] LABS: Glucose,Whole Blood 280 mg/dL (70-110)
[2023-08-05] MEDS: INSULIN DETEMIR (LEVEMIR) 100 UNIT/ML SYR SQ SCH (21:46)
--- NOTE | 2023-08-05 22:11 | CONS ---
CONSULTATION REASON FOR CONSULTATION: Parotid swelling. HISTORY OF PRESENT ILLNESS: This is a 72-year-old white male with at least 6-week history of left cervical lymphadenopathy. The patient's family state that about 6 weeks ago he does have some left neck swelling fairly acutely. This has not been changing with eating or drinking. Has progressively enlarged slowly, it gives mild discomfort, but he has had no fever or chills. He did have a course of Bactrim as an outpatient, which did not improve the symptoms. He apparently was also on this for his kidneys. He has had no dysphagia, sore throat or otalgia. He had ultrasound of the neck on July 24 by his primary care physician, which showed some left cervical lymphadenopathy, largest of was 1.6 cm. PAST MEDICAL HISTORY: Positive for bladder cancer which was treated earlier this year. He has some hydronephrosis presently and was admitted for this due to some nausea, which has improved even since yesterday. He has been eating and drinking without difficulty. Past medical history is significant for coronary artery disease, cancer, diabetes, hyperlipidemia, hypertension, myocardial infarction, osteoarthritis. Past history of bladder cancer treated on admissions since 2020. Diabetes. History of hip fracture earlier this year requiring treatment. PAST SURGICAL HISTORY: As above, heart catheterization, cystoscopy, right leg surgery, history of cardiac stents. MEDICATIONS: At home 1. Lipitor. 2. Celebrex. 3. Victoza. 4. Spironolactone. 5. Bactrim. 6. Coreg. 7. Hydrochlorothiazide. 8. Lisinopril. 9. Metformin. 10.Aspirin. ALLERGIES: No known drug allergies. SOCIAL HISTORY: Did smoke. Does not now. No alcohol use presently. FAMILY HISTORY: Positive for bowel issues, both parents . REVIEW OF SYSTEMS: Pertinent positive and negative response has been documented in the HPI. Review of systems otherwise are negative. PHYSICAL EXAMINATION: VITAL SIGNS: The patient is afebrile. Vital signs overall otherwise appear stable. GENERAL: This is a well-developed adult white male, in no acute distress. He is eating lunch without any difficulty. He is conversant, alert, awake, and oriented x3. HEENT: Head is normocephalic, atraumatic. Ears, bilaterally canals are clear. Tympanic membranes are unremarkable and mobile. Nose shows no drainage or obstruction. Mouth, teeth missing. No focal lesions in the mouth or oropharynx. NECK: Supple. There is diffuse firm lymphadenopathy which on palpation is confluent starting in the lower parotid area on the left and continuing down through the lateral neck along the sternocleidomastoid/mid jugular chain nodes. This area is firm, nontender, and has decreased mobility. No overlying skin change or fluctuance. IMAGING STUDIES: CT reviewed, but no report issued as yet which is performed this morning appears to show diffuse cervical lymphadenopathy in the neck on the left including diffuse parotid swelling, may also have some asymmetry in the left hypopharynx. ASSESSMENT: Left cervical lymphadenopathy also with parotid swelling on the left. Plan, we would recommend ultrasound-guided core biopsy of the left cervical lymph nodes. There would be concern of underlying malignancy mainly as this would be more suspected infectious process with the diffuse nature of the abnormalities noted. Would be concerned with primary neoplastic process versus potentially distant metastatic process with his previous history. Do not have flexible laryngoscopy capabilities here as an inpatient. We would recommend the above-noted procedure while inpatient, and then follow up as an outpatient in our office once discharged for followup on the biopsy and also possible flexible laryngoscopy in the office depending on findings on the core biopsy. His further workup can be continued as an outpatient and would not require inpatient hospitalization. Therefore, disposition would be dependent on his primary admitting diagnosis. If there are questions or concerns, please free to contact me. MMODL / IJN: [id number] /
[2023-08-05] MEDS ORDERED: SODIUM CHLORIDE 0.9% 500 ML 500 ML IV ONE (23:27)
[2023-08-05] MEDS ORDERED: HEPARIN SODIUM 1,000 UN/ML (10ML VL) IV PRN (23:40)
[2023-08-05] MEDS ORDERED: HEPARIN SODIUM 1,000 UN/ML (10ML VL) IV ONE (23:40)
[2023-08-06] MEDS: DILTIAZEM 125 MG in SODIUM CHLORIDE 0.9% 100 ML IV SCH ×2 (00:03→17:21)
[2023-08-06 00:04] LABS: Basophils % (A) 0 %; Eosinophils # (A) 0.2 k/uL (0-0.7); Eosinophils % (A) 2 %; HCT 32.2 % (39.0-53.0); HGB 11.1 gm/dL (13.0-17.5); Lymphocytes # (A) 0.7 k/uL (1.0-4.8); Lymphocytes % (A) 7 %; MCH 34.5 pg (25.0-35.0); MCHC 34.4 g/dL (31.0-37.0); Mean Platelet Volume 10.7; Monocytes # (A) 0.5 k/uL (0-1.0); Monocytes % (A) 5 %; Neutrophils # (A) 7.9 k/uL (1.3-7.7); Neutrophils % (A) 84 %; Platelet Count 150 k/uL (150-450); RBC 3.21 m/uL (4.30-5.90); RDW 12.7 % (11.5-15.5); WBC 9.4 k/uL (3.8-10.6)
[2023-08-06 00:09] LABS: MCV 100.3 fL (80.0-100.0)
[2023-08-06 00:18] LABS: INR 1.1 (<1.2); Partial Thromboplastin Time 23.7 sec (22.0-30.0); Prothrombin Time 11.9 sec (10.0-12.5)
[2023-08-06] MEDS: Acetaminophen-Codeine 300-30mg TAB PO PRN ×3 (00:46→19:52)
[2023-08-06] MEDS: HEPARIN SOD,PORK IN 0.45% NACL 25,000 UNIT in 0.45% NACL 1 250ML.BAG IV SCH (00:50)
[2023-08-06] MEDS: DEXTROSE 5% IN WATER 1,000 ML with SODIUM BICARB (1 MEQ/ML) 150 ML IV SCH (04:00)
[2023-08-06 06:09] LABS: Glucose,Whole Blood 177 mg/dL (70-110)
[2023-08-06] MEDS: INSULIN ASPART (NovoLOG) 100 UNIT/ML VIAL SQ SCH ×3 (06:31→17:22)
[2023-08-06] MEDS: ATORVASTATIN 80 MG TAB PO SCH (08:18)
[2023-08-06] MEDS: PANTOPRAZOLE 40 MG/10 ML VIAL IV SCH (08:18)
[2023-08-06] MEDS: LIRAGLUTIDE 0.6 MG/0.1 ML SQ SCH (08:18)
[2023-08-06] MEDS: METOPROLOL TARTRATE 25 MG TAB PO SCH ×2 (08:18→19:52)
[2023-08-06] MEDS: ASPIRIN 81 MG PO SCH (08:18)
--- NOTE | 2023-08-06 09:57 | P.CRDCN ---
History of Present Illness History of present illness: HISTORY OF PRESENT ILLNESS: This is a 72-year-old male with a past medical history significant for bladder cancer with previous chemo and radiation, coronary artery disease with previous stenting, valvular heart disease including moderate mitral regurgitation, hyper tension, hyperlipidemia, and carotid atherosclerosis. Patient follows in the office with Dr. Linda. We have been asked to see the patient in consultation for atrial fibrillation. Patient examined at the bedside. Patient presented to the hospital to chief complaint of left neck swelling. He states this has been going on for the past 4 weeks. He has been evaluated by ENT and biopsy was recommended. The patient was found to be in atrial fibrillation with RVR. The patient denies a previous history of atrial fibrillation. He was started on IV Cardizem. Subsequently he became hypotensive with a Cardizem drip with a blood pressure in the 80s. At the time of examination, he remains in atrial fibrillation with a heart rate between [id number]. He denies any dizziness or lightheadedness. He denies any palpitations. Denies any chest pain or pressure. He denies any shortness of breath. * EKG reveals atrial fibrillation with RVR * Chest xray negative for acute process * Laboratory data: WBC 9.4. Hemoglobin 11.1. Platelet count 150. Sodium 136. Potassium 4.2. BUN 110. Creatinine 7.11. * Current home cardiac medications include aspirin 81 mg daily, Lipitor 80 mg daily, carvedilol 12.5 mg daily, lisinopril 30 mg daily, and Aldactone 25 mg daily * Most recent echocardiogram obtained in May 2022 revealed normal ejection fraction with moderate MR * Cardiac catheterization history: July 2019 revealing critical disease involving the proximal and mid RCA, intermediate to severe disease involving the left circumflex, intermediate disease involving the ramus intermedius, and mild disease involving the LAD. Patient underwent stenting of the mid and proximal RCA. REVIEW OF SYSTEMS: At the time of my exam: CONSTITUTIONAL: Denies fever or chills. HEENT: Denies blurred vision, vision changes, or eye pain. Denies hemoptysis CARDIOVASCULAR: Denies chest pain. Denies orthopnea. Denies PND. Denies palpitations RESPIRATORY: Denies shortness of breath. GASTROINTESTINAL: Denies abdominal pain. Denies nausea or vomiting. HEMATOLOGIC: Denies bleeding disorders. GENITOURINARY: Denies any blood in urine. SKIN: Denies pruitis. Denies rash. PHYSICAL EXAM: VITAL SIGNS: Reviewed. GENERAL: Well-developed in no acute distress. HEENT: Head is normocephalic. Pupils are equal, round. Sclerae anicteric. Mucous membranes of the mouth are moist. Neck supple. No JVD or thyromegaly LUNGS: Respirations even and unlabored. Lungs essentially clear to auscultation bilaterally. HEART: Tachycardic. Irregular rate and rhythm. S1 and S2 heard. Systolic murmur noted. ABDOMEN: Soft. Nondistended. Nontender. EXTREMITIES: Normal range of motion. No clubbing or cyanosis. Peripheral pulses intact. No lower extremity edema NEUROLOGIC: Awake and alert. Oriented x 3. ASSESSMENT: Left neck swelling with lymphadenopathy New-onset atrial fibrillation with RVR Acute kidney injury Hyperkalemia Coronary artery disease with previous stenting Valvular heart disease including moderate MR Hypertension Hyperlipidemia Diabetes, uncontrolled, hemoglobin A1c 9.3 Carotid atherosclerosis History of bladder cancer with previous chemo and radiation PLAN: Obtain 2-D echo to assess cardiac section function Check TSH Continue telemetry monitoring Add metoprolol tartrate 25 mg BID Continue IV heparin. Transition to oral anticoagulation once plans for lymph node biopsy are finalized. Further recommendations pending patient's course Nurse practitioner note has been reviewed by physician. Signing provider agrees with the documented findings, assessment, and plan of care. Past Medical History Past Medical History: Coronary Artery Disease (CAD), Cancer, Diabetes Mellitus, Hyperlipidemia, Hypertension, Myocardial Infarction ([place]), Osteoarthritis (OA) Additional Past Medical History / Comment(s): Bladder cancer stage with treatment, in remission since 2020. IDDM type II, post polio syndrome,leg length discrepancy, bronchitis, chronic low back pain. Last Myocardial Infarction Date:: 07/23/19 History of Any Multi-Drug Resistant Organisms: None Reported Past Surgical History: Heart Catheterization With Stent, Orthopedic Surgery Additional Past Surgical History / Comment(s): Cystoscopy, TURBT x2, closure of patent urachus bladder tumor as , R leg surgery d/t polio-lengthening, cardiac stents 2018; Right hip surgery 11/03/2022 Past Anesthesia/Blood Transfusion Reactions: No Reported Reaction Date of Last Stent Placement:: 07/23/19 Past Psychological History: No Psychological Hx Reported Additional Psychological History / Comment(s): Pt resides with his spouse. He is independent. He just started ambulating with a cane or walker Smoking Status: Former smoker Past Alcohol Use History: None Reported Additional Past Alcohol Use History / Comment(s): Pt started smoking in 1968 and quit 07/21/19. Prior ETOH abuse-pt states he hasnt had alcohol in months Past Drug Use History: None Reported - Past Family History Father History Unknown: Yes Mother Additional Family Medical History / Comment(s): Mother of in a MVA when pt was 15 yrs old. Brother(s) Additional Family Medical History / Comment(s): Pt has one brother who of a bowel problem and another brother that of a ruptured aneurysm. Medications and Allergies Home Medications Medication Instructions Recorded Confirmed Type Aspirin 81 mg PO DAILY #90 chewable 07/25/19 08/04/23 Rx Atorvastatin [Lipitor] 80 mg PO DAILY 05/13/20 08/04/23 History Celecoxib [CeleBREX] 200 mg PO DAILY 08/04/23 08/04/23 History Liraglutide [Victoza 3-Sam] 1.8 mg SQ DAILY 08/04/23 08/04/23 History Spironolactone [Aldactone] 25 mg PO DAILY 08/04/23 08/04/23 History Sulfamethox-Tmp 800-160Mg [Bactrim 1 tab PO Q12HR 08/04/23 08/04/23 History DS 800-160 mg] carvediloL [Coreg] 12.5 mg PO DAILY 08/04/23 08/04/23 History hydroCHLOROthiazide 12.5 mg PO DAILY 08/04/23 08/04/23 History lisinopriL [Zestril] 30 mg PO DAILY 08/04/23 08/04/23 History metFORMIN HCL ER [Glucophage XR] 500 mg PO BID 08/04/23 08/04/23 History Allergies Allergy/AdvReac Type Severity Reaction Status Date / Time No Known Allergies Allergy Verified 08/04/23 17:19 Physical Exam Vitals: Vital Signs Temp Pulse Pulse Resp BP BP Pulse Ox 08/06/23 05:58 122 H 125/89 08/06/23 04:41 98.2 F 131 H 16 88/57 94 L 08/05/23 23:56 98.1 F 144 H 17 123/94 94 L 08/05/23 23:00 124 H 129/61 10/15/23 22:01 98.1 F 89 18 125/61 95 08/05/23 15:15 84 18 126/58 95 08/05/23 13:30 89 16 96 08/05/23 13:00 88 18 146/61 97 08/05/23 12:30 87 19 132/52 96 08/05/23 12:02 98.3 F 85 18 132/52 96 08/05/23 11:30 88 23 138/56 96 08/05/23 11:00 87 20 116/54 96 08/05/23 10:30 94 23 96 08/05/23 10:00 91 23 128/54 95 Intake and Output 08/05/23 08/06/23 08/06/23 22:59 06:59 14:59 Intake Total 180 586.833 Output Total 500 Balance 180 86.833 Intake: Intake, IV Titration 46.833 Amount Diltiazem 125 mg In 46.833 Sodium Chloride 0.9% 100 ml @ 10 MG/HR 10 mls/hr IV .[id number] [facility] Rx#: [id number] Oral 180 540 Output: Urine 500 Other: Voiding Method Indwelling Catheter Indwelling Catheter Results 08/05/23 23:48 08/05/23 12:25 Coagulation 08/05/23 Range/Units 23:48 PT 11.9 (10.0-12.5) sec APTT 23.7 (22.0-30.0) sec CBC 08/05/23 Range/Units 23:48 WBC 9.4 (3.8-10.6) k/uL RBC 3.21 L (4.30-5.90) m/uL Hgb 11.1 L (13.0-17.5) gm/dL Hct 32.2 L (39.0-53.0) % Plt Count 150 (150-450) k/uL Comprehensive Metabolic Panel 08/05/23 Range/Units 12:25 Potassium 4.2 (3.5-5.1) mmol/L Current Medications Generic Name Dose Route Start Last Admin Trade Name Freq PRN Reason Stop Dose Admin Acetaminophen/Codeine Phosphate 1 each 08/05/23 11:07 08/06/23 08:28 Acetaminophen-Codeine 300-30mg Tab PO 1 each Q6HR PRN Administration Pain Aspirin 81 mg 08/05/23 09:00 08/06/23 08:18 Aspirin 81 Mg PO 81 mg DAILY [facility] Administration Atorvastatin Calcium 80 mg 08/05/23 09:00 08/06/23 08:18 Atorvastatin 80 Mg Tab PO 80 mg DAILY GUR[facility] Administration Dextrose/Water 25 ml 08/05/23 18:08 Dextrose 50% Syringe 50 Ml IVP PER PROTOCOL PRN Hypoglycemia Protocol Dextrose/Water 50 ml 08/05/23 18:08 Dextrose 50% Syringe 50 Ml IVP PER PROTOCOL PRN Hypoglycemia Protocol Heparin Sodium (Porcine) 0 unit 08/05/23 23:40 Heparin Sodium 1,000 Un/Ml (10ml Vl) IV PER PROTOCOL PRN Low PTT Protocol Sodium Bicarbonate 150 ml/ 1,150 mls @ 100 mls/hr 08/04/23 18:30 08/06/23 0 4:00 Dextrose/Water IV 100 mls/hr .[id number] G[facility] Administration Ceftriaxone Sodium 1 gm/ 50 mls @ 100 mls/hr 08/05/23 18:15 08/06/23 08:18 Sodium Chloride IVPB 100 mls/hr Q24HR G[facility] Administration Protocol Diltiazem HCl 125 mg/ Sodium 125 mls @ 10 mls/hr 08/05/23 23:45 08/06/23 04:44 Chloride IV 5 mg/hr .[id number] [facility] 5 mls/hr Infusion 10 MG/HR Heparin Sodium/Sodium Chloride 250 mls @ 9.798 mls/hr 08/05/23 23:45 08/06/23 00:50 25,000 unit/ Sodium Chloride IV 12 units/kg/hr .Q24H [facility] 9.798 mls/hr Administration Protocol 12 UNITS/KG/HR Insulin Aspart 0 unit 08/05/23 18:08 08/06/23 06:31 Insulin Aspart (Novolog) 100 Unit/Ml Vial SQ 2 unit AC-TID GUR[facility] Administration Protocol Insulin Detemir 12 unit 08/05/23 21:00 08/05/23 21:46 Insulin Detemir (Levemir) 100 Unit/Ml Syr SQ 12 unit HS GUR[facility] Administration Metoprolol Tartrate 25 mg 08/06/23 09:00 08/06/23 08:18 Metoprolol Tartrate 25 Mg Tab PO 25 mg BID GUR[facility] Administration Naloxone HCl 0.2 mg 08/04/23 20:04 Naloxone 0.4 Mg/Ml 1 Ml Vial IV Q2M PRN Opioid Reversal Non Formulary Drug ( 1.8 mg 08/05/23 09:00 08/06/23 08:18 Liraglutide [Victoza SQ 1.8 mg ] 0.6 Mg/0.1 Ml Ml) DAILY GURDEEP Administration Pantoprazole Sodium 40 mg 08/05/23 09:00 08/06/23 08:18 Pantoprazole 40 Mg/10 Ml Vial IV 40 mg DAILY GURDEEP Administration Intake and Output 08/05/23 08/06/23 08/06/23 22:59 06:59 14:59 Intake Total 180 586.833 Output Total 500 Balance 180 86.833 Intake: Intake, IV Titration 46.833 Amount Diltiazem 125 mg In 46.833 Sodium Chloride 0.9% 100 ml @ 10 MG/HR 10 mls/hr IV .[id number] [facility] Rx#: [id number] Oral 180 540 Output: Urine 500 Other: Voiding Method Indwelling Catheter Indwelling Catheter 08/05/23 23:48 08/05/23 12:25
[2023-08-06 10:19] LABS: Basophils % (A) 0 %; Eosinophils # (A) 0.3 k/uL (0-0.7); Eosinophils % (A) 2 %; HCT 32.8 % (39.0-53.0); Lymphocytes # (A) 0.6 k/uL (1.0-4.8); Lymphocytes % (A) 6 %; MCH 33.5 pg (25.0-35.0); MCHC 33.5 g/dL (31.0-37.0); MCV 100.1 fL (80.0-100.0); Mean Platelet Volume 10.7; Monocytes # (A) 0.9 k/uL (0-1.0); Monocytes % (A) 8 %; Neutrophils # (A) 9.1 k/uL (1.3-7.7); Neutrophils % (A) 83 %; Platelet Count 152 k/uL (150-450); RBC 3.28 m/uL (4.30-5.90); RDW 13.2 % (11.5-15.5)
[2023-08-06 10:32] LABS: INR 1.2 (<1.2); Partial Thromboplastin Time 92.5 sec (22.0-30.0); Prothrombin Time 12.9 sec (10.0-12.5)
[2023-08-06 11:05] LABS: African American GFR (CKD) 14 (>60 ml/min/1.73 sqM); Anion Gap 13 mmol/L; Blood Urea Nitrogen 99 mg/dL (9-20); Calcium 6.6 mg/dL (8.4-10.2); Carbon Dioxide 21 mmol/L (22-30); Chloride 101 mmol/L (98-107); Glucose 153 mg/dL (74-99); Non-African American GFR(CKD) 12 (>60 ml/min/1.73 sqM); Phosphorus 4.4 mg/dL (2.5-4.5); Potassium 3.5 mmol/L (3.5-5.1); Sodium 135 mmol/L (137-145)
[2023-08-06 12:01] LABS: Glucose,Whole Blood 155 mg/dL (70-110)
[2023-08-06] MEDS ORDERED: POTASSIUM CHLORIDE ER 20 MEQ TAB.ER PO STA (12:16)
--- NOTE | 2023-08-06 12:18 | P.PN ---
Subjective Patient is seen in follow-up for acute kidney injury. Renal function improving. Potassium level normal. Has Montalvo catheter. Nonoliguric. Oral intake fair. Hemodynamically stable. Vital signs are stable. General: No distress. HEENT: Head exam is unremarkable. LUNGS: No audible rhonchi or wheezes. HEART: Rate and Rhythm are regular. ABDOMEN: Nontender. EXTREMITITES: No edema. Objective - Vital Signs Vital signs: Vital Signs Temp 98.3 F 08/06/23 08:15 Pulse 120 H 08/06/23 08:15 Resp 17 08/06/23 08:15 BP 112/58 08/06/23 08:15 Pulse Ox 97 08/06/23 08:15 FiO2 Intake & Output 08/05/23 08/06/23 08/06/23 18:59 06:59 18:59 Intake Total 1780 586.833 98.307 Output Total 425 500 Balance 1355 86.833 98.307 Weight 81.647 kg Intake: Intake, IV Titration 1600 46.833 98.307 Amount Dextrose 5% in Water 1, 600 000 ml @ 100 mls/hr IV . [id number] [facility] with Sodium Bicarb (1 Meq/ml) 150 ml Rx#:[id number] Diltiazem 125 mg In 46.833 Sodium Chloride 0.9% 100 ml @ 10 MG/HR 10 mls/hr IV .[id number] [facility] Rx#: [id number] Heparin Sod,Pork in 0.45% 98.307 NaCl 25,000 unit In 0.45 % NaCl 1 250ml.bag @ 12 UNITS/KG/HR 9.798 mls/hr IV .Q24H [facility] Rx#: [id number] Sodium Chloride 0.9% 1, 1000 000 ml @ 999 mls/hr IV . Q1H1M ONE Rx#:[id number] Oral 180 540 Output: Urine 425 500 Other: Voiding Method Indwelling Catheter Indwelling Catheter Indwelling Catheter - Labs CBC & Chem 7: 08/06/23 09:30 08/06/23 09:30 Labs: Abnormal Lab Results - Last 24 Hours (Table) 08/05/23 08/05/23 08/05/23 Range/Units 12:25 16:45 21:08 WBC (3.8-10.6) k/uL RBC (4.30-5.90) m/uL Hgb (13.0-17.5) gm/dL Hct (39.0-53.0) % MCV (80.0-100.0) fL Neutrophils # (1.3-7.7) k/uL Lymphocytes # (1.0-4.8) k/uL PT (10.0-12.5) sec INR (<1.2) APTT (22.0-30.0) sec Sodium (137-145) mmol/L Carbon Dioxide (22-30) mmol/L BUN (9-20) mg/dL Creatinine (0.66-1.25) mg/dL Glucose (74-99) mg/dL POC Glucose (mg/dL) 282 H 280 H (70-110) mg/dL Hemoglobin A1c 9.3 H (<=6.0) % Calcium (8.4-10.2) mg/dL 08/05/23 08/06/23 08/06/23 Range/Units 23:48 06:08 09:30 WBC (3.8-10.6) k/uL RBC 3.21 L (4.30-5.90) m/uL Hgb 11.1 L (13.0-17.5) gm/dL Hct 32.2 L (39.0-53.0) % MCV 100.3 H D (80.0-100.0) fL Neutrophils # 7.9 H (1.3-7.7) k/uL Lymphocytes # 0.7 L (1.0-4.8) k/uL PT (10.0-12.5) sec INR (<1.2) APTT (22.0-30.0) sec Sodium 135 L (137-145) mmol/L Carbon Dioxide 21 L (22-30) mmol/L BUN 99 H (9-20) mg/dL Creatinine 4.51 H (0.66-1.25) mg/dL Glucose 153 H (74-99) mg/dL POC Glucose (mg/dL) 177 H (70-110) mg/dL Hemoglobin A1c (<=6.0) % Calcium 6.6 L (8.4-10.2) mg/dL 08/06/23 08/06/23 08/06/23 Range/Units 09:30 09:30 11:59 WBC 11.0 H (3.8-10.6) k/uL RBC 3.28 L (4.30-5.90) m/uL Hgb 11.0 L (13.0-17.5) gm/dL Hct 32.8 L (39.0-53.0) % MCV 100.1 H (80.0-100.0) fL Neutrophils # 9.1 H (1.3-7.7) k/uL Lymphocytes # 0.6 L (1.0-4.8) k/uL PT 12.9 H (10.0-12.5) sec INR 1.2 H (<1.2) APTT 92.5 H (22.0-30.0) sec Sodium (137-145) mmol/L Carbon Dioxide (22-30) mmol/L BUN (9-20) mg/dL Creatinine (0.66-1.25) mg/dL Glucose (74-99) mg/dL POC Glucose (mg/dL) 155 H (70-110) mg/dL Hemoglobin A1c (<=6.0) % Calcium (8.4-10.2) mg/dL Microbiology - Last 24 Hours (Table) 08/04/23 15:15 Blood Culture - Preliminary Blood 08/04/23 15:30 Blood Culture - Preliminary Blood Assessment and Plan Plan: Assessment: 1. Acute kidney injury secondary to ATN secondary to hypotension and further worsened with the use of nonsteroidals and HEDY inhibitor. Also component of obs tructive uropathy. Creatinine peaked at 7.44 this admission and is 4.51 today. Creatinine is low as 1.13 dated 11/07/2022. 2. Hyperkalemia secondary to acute kidney injury, metabolic acidosis, spir onolactone and lisinopril. Also component of NSAIDs. Improved. 3. Metabolic acidosis secondary to acute kidney injury and metformin. 4. Right-sided hydronephrosis. Has Montalvo catheter. Urology following. 5. A. fib with RVR maintain on Cardizem drip. 6. Diabetes mellitus. 7. History of coronary disease with cardiac stenting. Plan: Change bicarb drip to normal saline. Replace potassium. Avoid nephrotoxins. Continue to monitor renal function and urine output. Continue to hold HEDY inhibitor at this time. Follow-up echocardiogram.
[2023-08-06] MEDS: SODIUM CHLORIDE 0.9% 1,000 ML IV SCH (12:31)
[2023-08-06 13:05] LABS: T4, Free (Free Thyroxine) 0.84 ng/dL (0.78-2.19)
[2023-08-06 14:07] VITALS: BMI 27.3
[2023-08-06] MEDS ORDERED: ONDANSETRON 4 MG/2 ML VIAL IVP PRN (15:31)
--- NOTE | 2023-08-06 15:31 | US ---
EXAMINATION TYPE: US thyroid st tissue head/neck DATE OF EXAM: 08/06/2023 COMPARISON: Ultrasound thyroid 07/24/2023, CT soft tissue neck 08/05/2023 CLINICAL INDICATION: Male, 72 years old with history of Neck mass; Left neck swelling lump parotid ar ea. TECHNIQUE: Multiple grayscale and color Doppler ultrasound images of the left neck in the patient's region of palpable abnormality were obtained. FINDINGS: multiple hypoechoic areas seen largest 1.5 x 1.8 x 1.5 cm. Multiple prominent and enlarged lymph nodes within the left neck at site of palpable abnormality. Ove rall these are similar to prior examination with the largest measuring 1.5 x 1.8 x 1.5 cm in the supe rficial parotid gland. This demonstrates a hypoechoic appearance with central isoechoic fatty hilum. There is a lobulated border. IMPRESSION: Redemonstration of enlarged left neck lymph nodes from prior examination. These again may be reactive and correspond with prior ultrasound and CT neck. Cannot exclude malignancy. The determination for b iopsy should be made clinically.
[2023-08-06 17:02] LABS: Glucose,Whole Blood 168 mg/dL (70-110)
--- NOTE | 2023-08-06 18:16 | P.PN ---
Subjective Progress Note Date: 08/06/23 Principal diagnosis: History of bladder cancer, new left neck mass In follow-up today patient is experiencing some nausea, he has vomited a small amount. He denies any fever, chest pain, shortness of breath. No reported abdominal pain, his abdomen is somewhat distended, tight but not rigid. No documented bowel movement since admit. CT CAP reports small bowel dilated to 3 cm, haziness of the small bowel mesentery, ischemic bowel versus infection versus enteritis in the differential. Mild right-sided hydronephrosis, cholelithiasis. CT of the neck reports likely reflective of left sided parotiditis, reactive adenopathy, surrounding inflammatory changes and skin thickening. Thickening of the sternocleidomastoid musculature and paraspinal muscles. Objective - Vital Signs Vital signs: Vital Signs Temp 98.3 F 08/06/23 08:15 Pulse 125 H 08/06/23 12:05 Resp 18 08/06/23 12:05 BP 115/58 08/06/23 12:05 Pulse Ox 95 08/06/23 12:05 FiO2 Intake & Output 08/05/23 08/06/23 08/06/23 18:59 06:59 18:59 Intake Total 1780 586.833 216.307 Output Total 425 500 Balance 1355 86.833 216.307 Weight 81.647 kg 81.647 kg Intake: Intake, IV Titration 1600 46.833 98.307 Amount Dextrose 5% in Water 1, 600 000 ml @ 100 mls/hr IV . [id number] [facility] with Sodium Bicarb (1 Meq/ml) 150 ml Rx#:[id number] Diltiazem 125 mg In 46.833 Sodium Chloride 0.9% 100 ml @ 10 MG/HR 10 mls/hr IV .[id number] [facility] Rx#: [id number] Heparin Sod,Pork in 0.45% 98.307 NaCl 25,000 unit In 0.45 % NaCl 1 250ml.bag @ 12 UNITS/KG/HR 9.798 mls/hr IV .Q24H [facility] Rx#: [id number] Sodium Chloride 0.9% 1, 1000 000 ml @ 999 mls/hr IV . Q1H1M ONE Rx#:[id number] Oral 180 540 118 Output: Urine 425 500 Other: Voiding Method Indwelling Catheter Indwelling Catheter Indwelling Catheter - Constitutional General appearance: Present: average body habitus, cooperative, mild distress - EENT Eyes: Present: anicteric sclerae, EOMI ENT: Present: hearing grossly normal - Neck Details: Large, hard, fixed mass, left submandibular area/anterior to the sternocleidomas toid - Respiratory Details: Respirations even and unlabored at rest - Cardiovascular Details: Skin warm and dry to the touch, radial pulse regular, 2+ - Peripheral edema leg Peripheral Edema: bilateral: None - Gastrointestinal General gastrointestinal: Present: soft - Neurologic Neurologic: Present: CNII-XII intact - Musculoskeletal Musculoskeletal: Present: strength equal bilaterally - Psychiatric Psychiatric: Present: A&O x's 3, appropriate affect, intact judgment & insight - Labs CBC & Chem 7: 08/06/23 09:30 08/06/23 09:30 Labs: Abnormal Lab Results - Last 24 Hours (Table) 08/05/23 08/05/23 08/05/23 Range/Units 12:25 16:45 21:08 WBC (3.8-10.6) k/uL RBC (4.30-5.90) m/uL Hgb (13.0-17.5) gm/dL Hct (39.0-53.0) % MCV (80.0-100.0) fL Neutrophils # (1.3-7.7) k/uL Lymphocytes # (1.0-4.8) k/uL PT (10.0-12.5) sec INR (<1.2) APTT (22.0-30.0) sec Sodium (137-145) mmol/L Carbon Dioxide (22-30) mmol/L BUN (9-20) mg/dL Creatinine (0.66-1.25) mg/dL Glucose (74-99) mg/dL POC Glucose (mg/dL) 282 H 280 H (70-110) mg/dL Hemoglobin A1c 9.3 H (<=6.0) % Calcium (8.4-10.2) mg/dL TSH (0.465-4.680) mIU/L 08/05/23 08/06/23 08/06/23 Range/Units 23:48 06:08 09:30 WBC (3.8-10.6) k/uL RBC 3.21 L (4.30-5.90) m/uL Hgb 11.1 L (13.0-17.5) gm/dL Hct 32.2 L (39.0-53.0) % MCV 100.3 H D (80.0-100.0) fL Neutrophils # 7.9 H (1.3-7.7) k/uL Lymphocytes # 0.7 L (1.0-4.8) k/uL PT (10.0-12.5) sec INR (<1.2) APTT (22.0-30.0) sec Sodium 135 L (137-145) mmol/L Carbon Dioxide 21 L (22-30) mmol/L BUN 99 H (9-20) mg/dL Creatinine 4.51 H (0.66-1.25) mg/dL Glucose 153 H (74-99) mg/dL POC Glucose (mg/dL) 177 H (70-110) mg/dL Hemoglobin A1c (<=6.0) % Calcium 6.6 L (8.4-10.2) mg/dL TSH 8.630 H (0.465-4.680) mIU/L 08/06/23 08/06/23 08/06/23 Range/Units 09:30 09:30 11:59 WBC 11.0 H (3.8-10.6) k/uL RBC 3.28 L (4.30-5.90) m/uL Hgb 11.0 L (13.0-17.5) gm/dL Hct 32.8 L (39.0-53.0) % MCV 100.1 H (80.0-100.0) fL Neutrophils # 9.1 H (1.3-7.7) k/uL Lymphocytes # 0.6 L (1.0-4.8) k/uL PT 12.9 H (10.0-12.5) sec INR 1.2 H (<1.2) APTT 92.5 H (22.0-30.0) sec Sodium (137-145) mmol/L Carbon Dioxide (22-30) mmol/L BUN (9-20) mg/dL Creatinine (0.66-1.25) mg/dL Glucose (74-99) mg/dL POC Glucose (mg/dL) 155 H (70-110) mg/dL Hemoglobin A1c (<=6.0) % Calcium (8.4-10.2) mg/dL TSH (0.465-4.680) mIU/L Microbiology - Last 24 Hours (Table) 08/04/23 15:15 Blood Culture - Preliminary Blood 08/04/23 15:30 Blood Culture - Preliminary Blood - Imaging and Cardiology CT scan - abdomen: report reviewed CT scan - chest: report reviewed CT scan - pelvis: report reviewed CT CAP reports small bowel dilated to 3 cm, haziness of the small bowel mesentery, ischemic bowel versus infection versus enteritis in the differential. Mild right-sided hydronephrosis, cholelithiasis. CT of the neck reports likely reflective of left sided parotiditis, reactive adenopathy, surrounding inflammatory changes and skin thickening. Thickening of the sternocleidomastoid musculature and paraspinal muscles. Assessment and Plan (1) Mass of left side of neck Current Visit: Yes Status: Acute Priority: High Code(s): R22.1 - LOCALIZED SWELLING, MASS AND LUMP, NECK SNOMED Code(s): 299675645 (2) Bladder cancer Current Visit: No Status: Chronic Priority: Medium Code(s): C67.9 - MALIGNANT NEOPLASM OF BLADDER, UNSPECIFIED SNOMED Code(s): 871698492 Plan: Mass of the left neck -Examination of the mass concerning for malignancy. -Interventional Radiology consulted to assess and see if core biopsy of the neck mass is reasonable -Will follow-up History of bladder cancer -Patient is not followed up since 2021 with urology. -Not thinking that this parotid mass is metastasis but, pending biopsy results Vomiting -Antiemetics ordered for patient.
[2023-08-06 19:41] LABS: Glucose,Whole Blood 136 mg/dL (70-110)
[2023-08-06] MEDS: INSULIN DETEMIR (LEVEMIR) 100 UNIT/ML SYR SQ SCH ×2 (19:52→21:09)
--- NOTE | 2023-08-06 20:55 | P.PN ---
Progress Note - Text Progress Note Date: 08/06/23 Chief Complaint: Neck lump pain Pleasant 72-year-old patient who follows with Dr. Johnny Rubio./Mid-level provider-Kareen. Chronic stable medical conditions include CAD with stent in 2018, diabetes, hypertension, hyperlipidemia, osteoporosis, bladder cancer with treatment in remission and cystoscopy 2020, patient had right hip surgery in October of this year now does use a walker when he goes outside. Otherwise a cane. Patient came to the ER as patient was having significant pain in the left neck mass. No masses. Diagnosed in June. Was given a course of antibiotic to the primary care's office. Not much response. And patient underwent ultrasound. Subsequently a CAT scan was ordered that is pending to be done. Patient progressively in the last few days has started having increasing pain in the left neck mass. Has been having nausea vomiting for the last 2 days. No obvious fever. In the ER found to be in renal failure. Patient is taking Tylenol arthritis at home. Patient is accompanied by his . Denies any loss of weight. No change in swallowing or trouble eating. August 06: Pain better controlled in the left neck lump. Ultrasound guided biopsy per ENT. Nausea per present. Decreased oral intake. Patient went into A. fib with rapid ventricular rate. Cardiology consulted. Lopressor was added. IV heparin. Discussed with patient and . Ensure added. Active Medications Acetaminophen/Codeine Phosphate (Acetaminophen-Codeine 300-30mg Tab) 1 each PO Q6HR PRN PRN Reason: Pain Last Admin: 08/06/23 19:52 Dose: 1 each Aspirin (Aspirin 81 Mg) 81 mg PO DAILY [facility] Last Admin: 08/06/23 08:18 Dose: 81 mg Atorvastatin Calcium (Atorvastatin 80 Mg Tab) 80 mg PO DAILY [facility] Last Admin: 08/06/23 08:18 Dose: 80 mg Dextrose/Water (Dextrose 50% Syringe 50 Ml) 25 ml IVP PER PROTOCOL PRN; P rotocol PRN Reason: Hypoglycemia Dextrose/Water (Dextrose 50% Syringe 50 Ml) 50 ml IVP PER PROTOCOL PRN; Protocol PRN Reason: Hypoglycemia Heparin Sodium (Porcine) (Heparin Sodium 1,000 Un/Ml (10ml Vl)) 0 unit IV PER PROTOCOL PRN; Protocol PRN Reason: Low PTT Ceftriaxone Sodium 1 gm/ (Sodium Chloride) 50 mls @ 100 mls/hr IVPB Q24HR [facility]; Protocol Last Admin: 08/06/23 08:18 Dose: 100 mls/hr Diltiazem HCl 125 mg/ Sodium (Chloride) 125 mls @ 10 mls/hr IV .[id number] [facility] Last Admin: 08/06/23 17:21 Dose: 5 mg/hr, 5 mls/hr Heparin Sodium/Sodium Chloride (25,000 unit/ Sodium Chloride) 250 mls @ 9.798 mls/hr IV .Q24H [facility]; Protocol Last Titration: 08/06/23 10:52 Dose: 10 units/kg/hr, 8.165 mls/hr Sodium Chloride (Saline 0.9%) 1,000 mls @ 75 mls/hr IV .[id number] [facility] Last Admin: 08/06/23 12:31 Dose: 75 mls/hr Insulin Aspart (Insulin Aspart (Novolog) 100 Unit/Ml Vial) 0 unit SQ AC-TID [facility]; Protocol Last Admin: 08/06/23 17:22 Dose: 2 unit Insulin Detemir (Insulin Detemir (Levemir) 100 Unit/Ml Syr) 12 unit SQ HS [facility] Last Admin: 08/06/23 19:52 Dose: 12 unit Metoprolol Tartrate (Metoprolol Tartrate 25 Mg Tab) 25 mg PO BID [facility] Last Admin: 08/06/23 19:52 Dose: 25 mg Naloxone HCl (Naloxone 0.4 Mg/Ml 1 Ml Vial) 0.2 mg IV Q2M PRN PRN Reason: Opioid Reversal Non Formulary Drug ( Liraglutide [Victoza ] 0.6 Mg/0.1 Ml Ml) 1.8 mg SQ DAILY [facility] Last Admin: 08/06/23 08:18 Dose: 1.8 mg Ondansetron HCl (Ondansetron 4 Mg/2 Ml Vial) 4 mg IVP Q8HR PRN PRN Reason: Nausea And Vomiting Last Admin: 08/06/23 15:50 Dose: 4 mg Pantoprazole Sodium (Pantoprazole 40 Mg/10 Ml Vial) 40 mg IV DAILY [facility] Last Admin: 08/06/23 08:18 Dose: 40 mg Social history: Used to work in a [employer]. . 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 Patient Smoked for 50 Years Stopped in 2019. Also Is Drinking Excessive Alcohol up to 2019. Physical examination: VITAL SIGNS: 98.3, 89, 18, 127/99, 96% room air GENERAL: Laying in bed, awake tired appearing. EYES: Pupils equal. Conjunctiva normal. HEENT: External appearance of nose and ears normal, oral cavity grossly normal. NECK: JVD not raised; masses not palpable. Hard mass of the left upper neck going to the mandible. Hard. Some tenderness. HEART: Heart sounds irregular; no edema. LUNGS: Respiratory rate normal; decreased breath sounds. ABDOMEN: Soft, nontender, liver spleen not palpable, no masses palpable. PSYCH: Alert and oriented x3; mood and affect anxious MUSCULOSKELETAL:No Clubbing/cyanosis;muscles-grossly intact. OA INVESTIGATIONS, reviewed in the clinical context: August 06: White count 11 hemoglobin 11 platelets are 52 potassium 3.5 BUN [address] soft tissue neck without contrast: Enlargement of the left parotid gland with surrounding the inflammatory attenuation as well as skeletal thinking. Also inflammatory thickening of the left sternocleidomastoid musculature. Surrounding reactive adenopathy. No obstructing Loss. CT chest abdomen pelvis: Small bowel guarded to 3 cm. Mild right-sided hydronephrosis. Gallstones August 05: White count 12.2 hemoglobin 13.1 platelets 198 sodium 136 potassium 5. 3 repeat 4.2 BUN 110 crit and 7.11 August 04: White count 15.6 hemoglobin 14.5 sodium 137 potassium 7.8 BUN 106 creatinine 6.97 bicarb 8 Troponin I 0.045 UA trace protein Influenza type A, B, RSV, COVID-19: Not detected Chest x-ray film personally reviewed by me-hyperinflation. Some pulmonary artery prominence EKG tracing personally reviewed by me-possible ectopic atrial rhythm. Ultrasound kidney: Mild right-sided hydronephrosis. Previous labs: 11/07/2022: Creatinine 1.13 Ultrasound soft tissue left neck: [07/24/2023] numerous thickened and borderline enlarged lymph nodes along the left side of neck. Assessment and plan: -Acute kidney injury, likely ATN.: Slow to respond Patient been having nausea vomiting at home and not drinking. Patient also was on metformin, Zestril, hydrochlorothiazide, Aldactone, Bactrim DS. And Celebrex.-All of the above are being discontinued Sodium bicarbonate drip. Nephrology following. Kidney ultrasound noted New-onset atrial fibrillation with a rapid ventricular rate IV Cardizem drip. IV heparin. -IV heparin monitoring Follow PTT -Severe hyperkalemia from renal failure: Corrected Aldactone, Zestril, Bactrim all discontinued Bicarbonate drip. IV fluids. Renal diet. Insulin. Kayexalate. -Severe metabolic acidosis from renal failure: Better IV bicarbonate drip.-Discontinued -Left upper neck mass. 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 Need to rule out underlying malignancy. IV ceftriaxone. Warm compress For ultrasound-guided needle biopsy -CAD with stent 2019 Aspirin. Coreg -Hyperlipidemia Lipitor -Diabetes mellitus type 2 on oral hypoglycemic Follow Accu-Cheks and sliding scale Levemir 16units subcu daily at bedtime. Hold oral hypoglycemic -Full code IV heparin. IV Cardizem drip. Encourage oral intake. Discussed with patient and . Normal saline.
--- NOTE | 2023-08-07 00:28 | PN ---
PROGRESS NOTE The patient was to have ultrasound-guided FNA ordered based on his previous physical exam and CT. He had a CT reported since I saw him, which showed evidence of parotitis and some secondary lymphadenopathy, although neoplasm was not excluded. He has been placed on Rocephin since that time, which is reasonable for parotitis, but still needs ultrasound-guided core biopsy of this tissue to rule out malignancy. I discussed this with his nurse, who states that he had necessitated starting on heparin drip due to arrhythmia overnight and Radiology proceeded with ultrasound, which did not show any particular difference based on prior ultrasound and CT. Therefore, he still needs the FNA, but would need to be off heparin for this. The Microfilm Equipment Inspector and Radiologist are going to coordinate this. If this is not able to be done immediately, could be done potentially as outpatient if he does not improve with the antibiotics. HUONG / HERNANDO: [id number] /
[2023-08-07] MEDS: HEPARIN SOD,PORK IN 0.45% NACL 25,000 UNIT in 0.45% NACL 1 250ML.BAG IV SCH (01:04)
[2023-08-07] MEDS: Acetaminophen-Codeine 300-30mg TAB PO PRN ×3 (03:31→18:42)
[2023-08-07] MEDS: SODIUM CHLORIDE 0.9% 1,000 ML IV SCH ×2 (03:35→19:20)
[2023-08-07 05:43] LABS: Glucose,Whole Blood 139 mg/dL (70-110)
[2023-08-07] MEDS: INSULIN ASPART (NovoLOG) 100 UNIT/ML VIAL SQ SCH ×3 (06:03→18:33)
[2023-08-07] MEDS: DILTIAZEM 125 MG in SODIUM CHLORIDE 0.9% 100 ML IV SCH (06:13)
[2023-08-07 08:01] LABS: Basophils % (A) 0 %; Eosinophils # (A) 0.1 k/uL (0-0.7); Eosinophils % (A) 1 %; HGB 10.3 gm/dL (13.0-17.5); Lymphocytes # (A) 0.5 k/uL (1.0-4.8); Lymphocytes % (A) 4 %; MCH 34.4 pg (25.0-35.0); MCHC 33.2 g/dL (31.0-37.0); MCV 103.8 fL (80.0-100.0); Macrocytosis Slight; Mean Platelet Volume 10.9; Monocytes # (A) 0.8 k/uL (0-1.0); Monocytes % (A) 7 %; Neutrophils # (A) 10.5 k/uL (1.3-7.7); Neutrophils % (A) 87 %; Platelet Count 118 k/uL (150-450); RBC 2.99 m/uL (4.30-5.90); RDW 12.9 % (11.5-15.5)
[2023-08-07 08:18] LABS: African American GFR (CKD) 26 (>60 ml/min/1.73 sqM); Anion Gap 9 mmol/L; Blood Urea Nitrogen 75 mg/dL (9-20); Carbon Dioxide 22 mmol/L (22-30); Chloride 104 mmol/L (98-107); Glucose 122 mg/dL (74-99); Non-African American GFR(CKD) 22 (>60 ml/min/1.73 sqM); Sodium 135 mmol/L (137-145)
[2023-08-07 08:27] LABS: Calcium 6.4 mg/dL (8.4-10.2); Potassium 4.1 mmol/L (3.5-5.1)
[2023-08-07] MEDS: LIRAGLUTIDE 0.6 MG/0.1 ML SQ SCH (08:56)
[2023-08-07] MEDS: ASPIRIN 81 MG PO SCH (08:56)
[2023-08-07] MEDS: PANTOPRAZOLE 40 MG/10 ML VIAL IV SCH (08:57)
[2023-08-07] MEDS: METOPROLOL TARTRATE 25 MG TAB PO SCH ×2 (08:57→20:37)
[2023-08-07] MEDS: ATORVASTATIN 80 MG TAB PO SCH (08:57)
--- NOTE | 2023-08-07 11:24 | P.PN ---
Subjective Patient is seen in follow-up for acute kidney injury. Renal function improving. Potassium level normal. Has Montalvo catheter. Nonoliguric. Oral intake fair. Hemodynamically stable. Scheduled for biopsy of neck mass today. Vital signs are stable. General: No distress. HEENT: Head exam is unremarkable. LUNGS: No audible rhonchi or wheezes. HEART: Rate and Rhythm are regular. ABDOMEN: Nontender. EXTREMITITES: No edema. Objective - Vital Signs Vital signs: Vital Signs Temp 98.3 F 08/07/23 08:00 Pulse 89 08/07/23 08:00 Resp 18 08/07/23 08:00 BP 144/64 08/07/23 08:00 Pulse Ox 94 L 08/07/23 08:00 FiO2 Intake & Output 08/06/23 08/07/23 08/07/23 18:59 06:59 18:59 Intake Total 279.390 315.943 66.409 Output Total 1450 525 Balance 279.390 -1134.057 -458.591 Weight 81.647 kg Intake: Intake, IV Titration 161.390 115.943 66.409 Amount Diltiazem 125 mg In 63.083 Sodium Chloride 0.9% 100 ml @ 10 MG/HR 10 mls/hr IV .[id number] [facility] Rx#: [id number] Heparin Sod,Pork in 0.45% 98.307 115.943 66.409 NaCl 25,000 unit In 0.45 % NaCl 1 250ml.bag @ 12 UNITS/KG/HR 9.798 mls/hr IV .Q24H [facility] Rx#: [id number] Oral 118 200 Output: Urine 1450 525 Other: Voiding Method Indwelling Catheter Indwelling Catheter Indwelling Catheter - Labs CBC & Chem 7: 08/07/23 07:02 08/07/23 07:02 Labs: Abnormal Lab Results - Last 24 Hours (Table) 08/06/23 08/06/23 08/06/23 Range/Units 09:30 11:59 16:28 WBC (3.8-10.6) k/uL RBC (4.30-5.90) m/uL Hgb (13.0-17.5) gm/dL Hct (39.0-53.0) % MCV (80.0-100.0) fL Plt Count (150-450) k/uL Neutrophils # (1.3-7.7) k/uL Lymphocytes # (1.0-4.8) k/uL APTT 70.0 H (22.0-30.0) sec Sodium 135 L (137-145) mmol/L Carbon Dioxide 21 L (22-30) mmol/L BUN 99 H (9-20) mg/dL Creatinine 4.51 H (0.66-1.25) mg/dL Glucose 153 H (74-99) mg/dL POC Glucose (mg/dL) 155 H (70-110) mg/dL Calcium 6.6 L (8.4-10.2) mg/dL TSH 8.630 H (0.465-4.680) mIU/L 08/06/23 08/06/23 08/07/23 Range/Units 17:01 19:40 05:41 WBC (3.8-10.6) k/uL RBC (4.30-5.90) m/uL Hgb (13.0-17.5) gm/dL Hct (39.0-53.0) % MCV (80.0-100.0) fL Plt Count (150-450) k/uL Neutrophils # (1.3-7.7) k/uL Lymphocytes # (1.0-4.8) k/uL APTT (22.0-30.0) sec Sodium (137-145) mmol/L Carbon Dioxide (22-30) mmol/L BUN (9-20) mg/dL Creatinine (0.66-1.25) mg/dL Glucose (74-99) mg/dL POC Glucose (mg/dL) 168 H 136 H 139 H (70-110) mg/dL Calcium (8.4-10.2) mg/dL TSH (0.465-4.680) mIU/L 08/07/23 08/07/23 08/07/23 Range/Units 07:02 07:02 07:02 WBC 12.0 H (3.8-10.6) k/uL RBC 2.99 L (4.30-5.90) m/uL Hgb 10.3 L (13.0-17.5) gm/dL Hct 31.0 L (39.0-53.0) % MCV 103.8 H (80.0-100.0) fL Plt Count 118 L (150-450) k/uL Neutrophils # 10.5 H (1.3-7.7) k/uL Lymphocytes # 0.5 L (1.0-4.8) k/uL APTT 91.3 H (22.0-30.0) sec Sodium 135 L (137-145) mmol/L Carbon Dioxide (22-30) mmol/L BUN 75 H (9-20) mg/dL Creatinine 2.78 H (0.66-1.25) mg/dL Glucose 122 H (74-99) mg/dL POC Glucose (mg/dL) (70-110) mg/dL Calcium 6.4 L* (8.4-10.2) mg/dL TSH (0.465-4.680) mIU/L Microbiology - Last 24 Hours (Table) 08/04/23 15:15 Blood Culture - Preliminary Blood 08/04/23 15:30 Blood Culture - Preliminary Blood Assessment and Plan Plan: Assessment: 1. Acute kidney injury secondary to ATN secondary to hypotension and further worsened with the use of nonsteroidals and HEDY inhibitor. Also component of obstructive uropathy. Creatinine peaked at 7.44 this admission and is 2.78 today. Creatinine is low as 1.13 dated 11/07/2022. 2. Hyperkalemia secondary to acute kidney injury, metabolic acidosis, spironolactone and lisinopril. Also component of NSAIDs. Improved. 3. Metabolic acidosis secondary to acute kidney injury and metformin. Better. 4. Right-sided hydronephrosis. Has Montalvo catheter. Urology following. 5. A. fib with RVR s/p Cardizem drip. On Lopressor. 6. Diabetes mellitus. 7. History of coronary disease with cardiac stenting. 8. Left neck mass scheduled for biopsy today. 9. Hypocalcemia secondary to acute kidney injury. Plan: Maintain normal saline. Avoid nephrotoxins. Continue to monitor renal function and urine output. Continue to hold HEDY inhibitor at this time. Follow-up echocardiogram. Add amlodipine 5 mg once daily. Replace calcium. Check PTH and vitamin D level.
[2023-08-07] MEDS ORDERED: CALCIUM GLUCONATE IN NACL 2 GM in SALINE 1 100ML.BAG IVPB ONE (11:30)
[2023-08-07 11:40] LABS: Glucose,Whole Blood 147 mg/dL (70-110)
[2023-08-07 12:01] LABS: Ionized Calcium 3.7 mg/dL (4.5-5.3)
--- NOTE | 2023-08-07 14:07 | P.PN ---
Subjective HISTORY OF PRESENT ILLNESS: This is a 72-year-old male with a past medical history significant for bladder cancer with previous chemo and radiation, coronary artery disease with previous stenting, valvular heart disease including moderate mitral regurgitation, hypertension, hyperlipidemia, and carotid atherosclerosis. Patient follows in the office with Dr. Linda. We have been asked to see the patient in consultation for atrial fibrillation. Patient examined at the bedside. Patient presented to the hospital to chief complaint of left neck swelling. He states this has been going on for the past 4 weeks. He has been evaluated by ENT and biopsy was recommended. The patient was found to be in atrial fibrillation with RVR. The patient denies a previous history of atrial fibrillation. He was started on IV Cardizem. Subsequently he became hypotensive with a Cardizem drip with a blood pressure in the 80s. At the time of examination, he remains in atrial fibrillation with a heart rate between [id number]. He denies any dizziness or lightheadedness. He denies any palpitations. Denies any chest pain or pressure. He denies any shortness of breath. * EKG reveals atrial fibrillation with RVR * Chest xray negative for acute process * Laboratory data: WBC 9.4. Hemoglobin 11.1. Platelet count 150. Sodium 136. Potassium 4.2. BUN 110. Creatinine 7.11. * Current home cardiac medications include aspirin 81 mg daily, Lipitor 80 mg daily, carvedilol 12.5 mg daily, lisinopril 30 mg daily, and Aldactone 25 mg daily * Most recent echocardiogram obtained in May 2022 revealed normal ejection fraction with moderate MR * Cardiac catheterization history: July 2019 revealing critical disease involving the proximal and mid RCA, intermediate to severe disease involving the left circumflex, intermediate disease involving the ramus intermedius, and mild disease involving the LAD. Patient underwent stenting of the mid and proximal RCA. 08/07/2023 Patient examined this morning at the bedside. Patient denies chest pain or pressure. He denies shortness of breath. Patient currently on IV heparin. He is scheduled for lymph node biopsy today. Telemetry reveals sinus mechanism. PHYSICAL EXAM: VITAL SIGNS: Reviewed. GENERAL: Well-developed in no acute distress. HEENT: Head is normocephalic. Pupils are equal, round. Sclerae anicteric. Mucous membranes of the mouth are moist. Neck supple. No JVD or thyromegaly LUNGS: Respirations even and unlabored. Lungs essentially clear to auscultation bilaterally. HEART: Regular rate and rhythm. S1 and S2 heard. Systolic murmur noted. ABDOMEN: Soft. Nondistended. Nontender. EXTREMITIES: Normal range of motion. No clubbing or cyanosis. Peripheral pulses intact. No lower extremity edema NEUROLOGIC: Awake and alert. Oriented x 3. ASSESSMENT: Left neck swelling with lymphadenopathy New-onset paroxysmal atrial fibrillation with RVR, currently maintaining sinus mechanism Acute kidney injury Hyperkalemia Coronary artery disease with previous stenting Valvular heart disease including moderate MR Hypertension Hyperlipidemia Diabetes, uncontrolled, hemoglobin A1c 9.3 Carotid atherosclerosis History of bladder cancer with previous chemo and radiation PLAN: 2-D echo has been ordered. Await results. Patient scheduled for lymph node biopsy today. Hold IV heparin. Begin oral anticoagulation tomorrow with Eliquis 5mg BID Continue telemetry monitoring Further recommendations pending patient's course Nurse practitioner note has been reviewed by physician. Signing provider agrees with the documented findings, assessment, and plan of care. Objective - Vital Signs Vital signs: Vital Signs Temp 98.3 F 08/07/23 08:00 Pulse 89 08/07/23 08:00 Resp 18 08/07/23 08:00 BP 144/64 08/07/23 08:00 Pulse Ox 94 L 08/07/23 08:00 FiO2 Intake & Output 08/06/23 08/07/23 08/07/23 18:59 06:59 18:59 Intake Total 279.390 315.943 66.409 Output Total 1450 525 Balance 279.390 -1134.057 -458.591 Weight 81.647 kg Intake: Intake, IV Titration 161.390 115.943 66.409 Amount Diltiazem 125 mg In 63.083 Sodium Chloride 0.9% 100 ml @ 10 MG/HR 10 mls/hr IV .[id number] [facility] Rx#: [id number] Heparin Sod,Pork in 0.45% 98.307 115.943 66.409 NaCl 25,000 unit In 0.45 % NaCl 1 250ml.bag @ 12 UNITS/KG/HR 9.798 mls/hr IV .Q24H [facility] Rx#: [id number] Oral 118 200 Output: Urine 1450 525 Other: Voiding Method Indwelling Catheter Indwelling Catheter Indwelling Catheter - Labs CBC & Chem 7: 08/07/23 07:02 08/07/23 07:02 Labs: Abnormal Lab Results - Last 24 Hours (Table) 08/06/23 08/06/23 08/06/23 Range/Units 16:28 17:01 19:40 WBC (3.8-10.6) k/uL RBC (4.30-5.90) m/uL Hgb (13.0-17.5) gm/dL Hct (39.0-53.0) % MCV (80.0-100.0) fL Plt Count (150-450) k/uL Neutrophils # (1.3-7.7) k/uL Lymphocytes # (1.0-4.8) k/uL APTT 70.0 H (22.0-30.0) sec Sodium (137-145) mmol/L BUN (9-20) mg/dL Creatinine (0.66-1.25) mg/dL Glucose (74-99) mg/dL POC Glucose (mg/dL) 168 H 136 H (70-110) mg/dL Calcium (8.4-10.2) mg/dL Ionized Calcium Buddy (4.5-5.3) mg/dL 08/07/23 08/07/23 08/07/23 Range/Units 05:41 07:02 07:02 WBC 12.0 H (3.8-10.6) k/uL RBC 2.99 L (4.30-5.90) m/uL Hgb 10.3 L (13.0-17.5) gm/dL Hct 31.0 L (39.0-53.0) % MCV 103.8 H (80.0-100.0) fL Plt Count 118 L (150-450) k/uL Neutrophils # 10.5 H (1.3-7.7) k/uL Lymphocytes # 0.5 L (1.0-4.8) k/uL APTT 91.3 H (22.0-30.0) sec Sodium (137-145) mmol/L BUN (9-20) mg/dL Creatinine (0.66-1.25) mg/dL Glucose (74-99) mg/dL POC Glucose (mg/dL) 139 H (70-110) mg/dL Calcium (8.4-10.2) mg/dL Ionized Calcium Buddy (4.5-5.3) mg/dL 08/07/23 08/07/23 08/07/23 Range/Units 07:02 11:28 11:39 WBC (3.8-10.6) k/uL RBC (4.30-5.90) m/uL Hgb (13.0-17.5) gm/dL Hct (39.0-53.0) % MCV (80.0-100.0) fL Plt Count (150-450) k/uL Neutrophils # (1.3-7.7) k/uL Lymphocytes # (1.0-4.8) k/uL APTT (22.0-30.0) sec Sodium 135 L (137-145) mmol/L BUN 75 H (9-20) mg/dL Creatinine 2.78 H (0.66-1.25) mg/dL Glucose 122 H (74-99) mg/dL POC Glucose (mg/dL) 147 H (70-110) mg/dL Calcium 6.4 L* (8.4-10.2) mg/dL Ionized Calcium Buddy 3.7 L (4.5-5.3) mg/dL Microbiology - Last 24 Hours (Table) 08/04/23 15:15 Blood Culture - Preliminary Blood 08/04/23 15:30 Blood Culture - Preliminary Blood
--- NOTE | 2023-08-07 15:18 | US ---
ULTRASOUND GUIDED CORE BIOPSY LEFT NECK MASS\LYMPH NODE BIOPSY: CLINICAL HISTORY: Left neck lymph node enlargement\mass FINDINGS: The procedure was explained to the patient. The risks, complications, benefits and alternatives were discussed and any questions were answered. Informed consent was obtained. Patient was placed supin e on the ultrasound table and prepped and draped in the usual sterile fashion. Utilizing a 18-gauge core biopsy needle, 3 passes were made into the left neck mass\lymph node. Patient was stable throughout the procedure. Pathology is pending. All elements of maximal barrier technique were utilized. IMPRESSION: 1. Successful ultrasound guided core biopsy left neck mass\lymph node.
[2023-08-07] MEDS: amLODIPine 5 MG TAB PO SCH (16:09)
[2023-08-07 16:56] LABS: Glucose,Whole Blood 210 mg/dL (70-110)
[2023-08-07] MEDS ORDERED: METOCLOPRAMIDE 5 MG/ML 2 ML VIAL IVP PRN (17:23)
--- NOTE | 2023-08-07 19:30 | P.PN ---
Progress Note - Text Progress Note Date: 08/07/23 Chief Complaint: Neck lump pain Pleasant 72-year-old patient who follows with Dr. Johnny Rubio./Mid-level provider-Kareen. Chronic stable medical conditions include CAD with stent in 2018, diabetes, hypertension, hyperlipidemia, osteoporosis, bladder cancer with treatment in remission and cystoscopy 2020, patient had right hip surgery in October of this year now does use a walker when he goes outside. Otherwise a cane. Patient came to the ER as patient was having significant pain in the left neck mass. No masses. Diagnosed in June. Was given a course of antibiotic to the primary care's office. Not much response. And patient underwent ultrasound. Subsequently a CAT scan was ordered that is pending to be done. Patient progressively in the last few days has started having increasing pain in the left neck mass. Has been having nausea vomiting for the last 2 days. No obvious fever. In the ER found to be in renal failure. Patient is taking Tylenol arthritis at home. Patient is accompanied by his . Denies any loss of weight. No change in swallowing or trouble eating. August 06: Pain better controlled in the left neck lump. Ultrasound guided biopsy per ENT. Nausea per present. Decreased oral intake. Patient went into A. fib with rapid ventricular rate. Cardiology consulted. Lopressor was added. IV heparin. Discussed with patient and . Ensure added. August 07: Patient seen by me this morning. Was pending biopsy. Nothing by mouth. Late underwent biopsy. Patient remains in sinus rhythm. IV heparin was held. Low ionized calcium. Calcium gluconate ordered. Active Medications Acetaminophen/Codeine Phosphate (Acetaminophen-Codeine 300-30mg Tab) 1 each PO Q6HR PRN PRN Reason: Pain Last Admin: 08/07/23 18:42 Dose: 1 each Amlodipine Besylate (Amlodipine 5 Mg Tab) 5 mg PO DAILY [facility] Last Admin: 08/07/23 16:09 Dose: 5 mg Apixaban (Apixaban 5 Mg Tab) 5 mg PO BID [facility]; Protocol Aspirin (Aspirin 81 Mg) 81 mg PO DAILY [facility] Last Admin: 08/07/23 08:56 Dose: 81 mg Atorvastatin Calcium (Atorvastatin 80 Mg Tab) 80 mg PO DAILY [facility] Last Admin: 08/07/23 08:57 Dose: 80 mg Dextrose/Water (Dextrose 50% Syringe 50 Ml) 25 ml IVP PER PROTOCOL PRN; Protocol PRN Reason: Hypoglycemia Dextrose/Water (Dextrose 50% Syringe 50 Ml) 50 ml IVP PER PROTOCOL PRN; Protocol PRN Reason: Hypoglycemia Heparin Sodium (Porcine) (Heparin Sodium 1,000 Un/Ml (10ml Vl)) 0 unit IV PER PROTOCOL PRN; Protocol PRN Reason: Low PTT Stop: 08/08/23 09:00 Ceftriaxone Sodium 1 gm/ (Sodium Chloride) 50 mls @ 100 mls/hr IVPB Q24HR [facility]; Protocol Last Admin: 08/07/23 08:56 Dose: 100 mls/hr Heparin Sodium/Sodium Chloride (25,000 unit/ Sodium Chloride) 250 mls @ 9.798 mls/hr IV .Q24H [facility]; Protocol Stop: 08/08/23 09:00 Last Titration: 08/07/23 09:12 Dose: 0 units/kg/hr, 0 mls/hr Sodium Chloride (Saline 0.9%) 1,000 mls @ 75 mls/hr IV .[id number] [facility] Last Admin: 08/07/23 19:20 Dose: Not Given Insulin Aspart (Insulin Aspart (Novolog) 100 Unit/Ml Vial) 0 unit SQ AC-TID [facility]; Protocol Last Admin: 08/07/23 18:33 Dose: 4 unit Insulin Detemir (Insulin Detemir (Levemir) 100 Unit/Ml Syr) 16 unit SQ HS [facility] Last Admin: 08/06/23 21:09 Dose: Not Given Metoclopramide HCl (Metoclopramide 5 Mg/Ml 2 Ml Vial) 10 mg IVP Q8HR PRN PRN Reason: Nausea And Vomiting Last Admin: 08/07/23 18:34 Dose: 10 mg Metoprolol Tartrate (Metoprolol Tartrate 25 Mg Tab) 25 mg PO BID [facility] Last Admin: 08/07/23 08:57 Dose: 25 mg Naloxone HCl (Naloxone 0.4 Mg/Ml 1 Ml Vial) 0.2 mg IV Q2M PRN PRN Reason: Opioid Reversal Non Formulary Drug ( Liraglutide [Victoza ] 0.6 Mg/0.1 Ml Ml) 1.8 mg SQ DAILY [facility] Last Admin: 08/07/23 08:56 Dose: 1.8 mg Pantoprazole Sodium (Pantoprazole 40 Mg/10 Ml Vial) 40 mg IV DAILY [facility] Last Admin: 08/07/23 08:57 Dose: 40 mg Social history: 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 Patient Smoked for 50 Years Stopped in 2019. Also Is Drinking Excessive Alcohol up to 2019. Physical examination: VITAL SIGNS: 98.3, 89, 18, 140/64, 94% room air GENERAL: Laying in bed, tired EYES: Pupils equal. Conjunctiva normal. HEENT: External appearance of nose and ears normal, oral cavity grossly normal. NECK: JVD not raised; masses not palpable. Hard mass of the left upper neck going to the mandible. Hard. Some tenderness. HEART: Heart sounds irregular; no edema. LUNGS: Respiratory rate normal; decreased breath sounds. ABDOMEN: Soft, nontender, liver spleen not palpable, no masses palpable. PSYCH: Alert and oriented x3; mood and affect anxious MUSCULOSKELETAL:No Clubbing/cyanosis;muscles-grossly intact. OA INVESTIGATIONS, reviewed in the clinical context: August 07: White count 12 hemoglobin 10.3 potassium 4.1 BUN 75 creatinine 2.78 potassium 6.4. Ionized calcium 3.7. August 06: White count 11 hemoglobin 11 platelets are 52 potassium 3.5 BUN [address] soft tissue neck without contrast: Enlargement of the left parotid gland with surrounding the inflammatory attenuation as well as skeletal thinking. Also inflammatory thickening of the left sternocleidomastoid musculature. Surrounding reactive adenopathy. No obstructing Loss. CT chest abdomen pelvis: Small bowel guarded to 3 cm. Mild right-sided hydronephrosis. Gallstones August 05: White count 12.2 hemoglobin 13.1 platelets 198 sodium 136 potassium 5. 3 repeat 4.2 BUN 110 crit and 7.11 August 04: White count 15.6 hemoglobin 14.5 sodium 137 potassium 7.8 BUN 106 creatinine 6.97 bicarb 8 Troponin I 0.045 UA trace protein Influenza type A, B, RSV, COVID-19: Not detected Chest x-ray film personally reviewed by me-hyperinflation. Some pulmonary artery prominence EKG tracing personally reviewed by me-possible ectopic atrial rhythm. Ultrasound kidney: Mild right-sided hydronephrosis. Previous labs: 11/07/2022: Creatinine 1.13 Ultrasound soft tissue left neck: [07/24/2023] numerous thickened and borderline enlarged lymph nodes along the left side of neck. Assessment and plan: -Acute kidney injury, likely ATN.: Slow to respond Patient been having nausea vomiting at home and not drinking. Patient also was on metformin, Zestril, hydrochlorothiazide, Aldactone, Bactrim DS. And Celebrex.-All of the above are being discontinued Sodium bicarbonate drip. Nephrology following. Kidney ultrasound noted Paroxysmal atrial fibrillation with a rapid ventricular rate, non-sinus rhythm IV Cardizem drip-discontinued. IV heparin held. Lopressor 25 mg twice a day -IV heparin monitoring Follow PTT -Severe hyperkalemia from renal failure: Corrected Aldactone, Zestril, Bactrim all discontinued Bicarbonate drip. IV fluids. Renal diet. Insulin. Kayexalate. -Severe metabolic acidosis from renal failure: Better IV bicarbonate drip.-Discontinued -Left upper neck mass. 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 Need to rule out underlying malignancy. IV ceftriaxone. Warm compress For ultrasound-guided needle biopsy done August 07 -CAD with stent 2018 Aspirin. Coreg -Hyperlipidemia Lipitor -Diabetes mellitus type 2 on oral hypoglycemic Follow Accu-Cheks and sliding scale Levemir 16units subcu daily at bedtime. Hold oral hypoglycemic -Full code Sinus rhythm. Lopressor. Underwent left neck mass biopsy.
--- NOTE | 2023-08-07 19:41 | P.PN ---
Subjective Progress Note Date: 08/07/23 Principal diagnosis: Hydronephrosis, renal failure The patient reports neck pain, but denies flank and abdominal pain. The Montalvo catheter is draining clear yellow urine. Objective - Vital Signs Vital signs: Vital Signs Temp 98.3 F 08/07/23 08:00 Pulse 81 08/07/23 15:00 Resp 16 08/07/23 16:00 BP 150/72 08/07/23 16:00 Pulse Ox 92 L 08/07/23 16:00 FiO2 Intake & Output 08/07/23 08/07/23 08/08/23 06:59 18:59 06:59 Intake Total 315.943 66.409 Output Total 1450 1225 Balance -1134.057 -1158.591 Intake: Intake, IV Titration 115.943 66.409 Amount Heparin Sod,Pork in 0.45% 115.943 66.409 NaCl 25,000 unit In 0.45 % NaCl 1 250ml.bag @ 12 UNITS/KG/HR 9.798 mls/hr IV .Q24H [facility] Rx#: [id number] Oral 200 Output: Urine 1450 1225 Other: Voiding Method Indwelling Catheter Indwelling Catheter - Constitutional General appearance: Present: average body habitus, no acute distress - Gastrointestinal Gastrointestinal Comment(s): Soft, non-tender, non-distended. - Psychiatric Psychiatric: Present: A&O x's 3 - Labs CBC & Chem 7: 08/07/23 07:02 08/07/23 07:02 Labs: Abnormal Lab Results - Last 24 Hours (Table) 08/06/23 08/07/23 08/07/23 Range/Units 19:40 05:41 07:02 WBC (3.8-10.6) k/uL RBC (4.30-5.90) m/uL Hgb (13.0-17.5) gm/dL Hct (39.0-53.0) % MCV (80.0-100.0) fL Plt Count (150-450) k/uL Neutrophils # (1.3-7.7) k/uL Lymphocytes # (1.0-4.8) k/uL APTT 91.3 H (22.0-30.0) sec Sodium (137-145) mmol/L BUN (9-20) mg/dL Creatinine (0.66-1.25) mg/dL Glucose (74-99) mg/dL POC Glucose (mg/dL) 136 H 139 H (70-110) mg/dL Calcium (8.4-10.2) mg/dL Ionized Calcium Buddy (4.5-5.3) mg/dL 08/07/23 08/07/23 08/07/23 Range/Units 07:02 07:02 11:28 WBC 12.0 H (3.8-10.6) k/uL RBC 2.99 L (4.30-5.90) m/uL Hgb 10.3 L (13.0-17.5) gm/dL Hct 31.0 L (39.0-53.0) % MCV 103.8 H (80.0-100.0) fL Plt Count 118 L (150-450) k/uL Neutrophils # 10.5 H (1.3-7.7) k/uL Lymphocytes # 0.5 L (1.0-4.8) k/uL APTT (22.0-30.0) sec Sodium 135 L (137-145) mmol/L BUN 75 H (9-20) mg/dL Creatinine 2.78 H (0.66-1.25) mg/dL Glucose 122 H (74-99) mg/dL POC Glucose (mg/dL) (70-110) mg/dL Calcium 6.4 L* (8.4-10.2) mg/dL Ionized Calcium Buddy 3.7 L (4.5-5.3) mg/dL 08/07/23 08/07/23 Range/Units 11:39 16:54 WBC (3.8-10.6) k/uL RBC (4.30-5.90) m/uL Hgb (13.0-17.5) gm/dL Hct (39.0-53.0) % MCV (80.0-100.0) fL Plt Count (150-450) k/uL Neutrophils # (1.3-7.7) k/uL Lymphocytes # (1.0-4.8) k/uL APTT (22.0-30.0) sec Sodium (137-145) mmol/L BUN (9-20) mg/dL Creatinine (0.66-1.25) mg/dL Glucose (74-99) mg/dL POC Glucose (mg/dL) 147 H 210 H (70-110) mg/dL Calcium (8.4-10.2) mg/dL Ionized Calcium Buddy (4.5-5.3) mg/dL Microbiology - Last 24 Hours (Table) 08/04/23 15:15 Blood Culture - Preliminary Blood 08/04/23 15:30 Blood Culture - Preliminary Blood Assessment and Plan (1) Unspecified hydronephrosis Current Visit: Yes Status: Acute Code(s): N13.30 - UNSPECIFIED HYDRONEPHROSIS SNOMED Code(s): 64883478 Plan: The patient's renal function continues to improve. Continue Montalvo catheter drainage.
[2023-08-07 20:30] LABS: Glucose,Whole Blood 384 mg/dL (70-110)
[2023-08-07] MEDS: INSULIN DETEMIR (LEVEMIR) 100 UNIT/ML SYR SQ SCH (20:37)
[2023-08-08] MEDS: SODIUM CHLORIDE 0.9% 1,000 ML IV SCH ×2 (03:57→21:20)
[2023-08-08] MEDS: HEPARIN SOD,PORK IN 0.45% NACL 25,000 UNIT in 0.45% NACL 1 250ML.BAG IV SCH (04:00)
[2023-08-08 06:05] LABS: Glucose,Whole Blood 144 mg/dL (70-110)
[2023-08-08] MEDS: INSULIN ASPART (NovoLOG) 100 UNIT/ML VIAL SQ SCH ×3 (06:31→16:40)
[2023-08-08] MEDS: APIXABAN 5 MG TAB PO SCH ×2 (07:44→21:19)
[2023-08-08] MEDS: PANTOPRAZOLE 40 MG/10 ML VIAL IV SCH (07:44)
[2023-08-08] MEDS: LIRAGLUTIDE 0.6 MG/0.1 ML SQ SCH (07:44)
[2023-08-08] MEDS: METOPROLOL TARTRATE 25 MG TAB PO SCH ×2 (07:45→21:19)
[2023-08-08] MEDS: ATORVASTATIN 80 MG TAB PO SCH (07:45)
[2023-08-08] MEDS: amLODIPine 5 MG TAB PO SCH (07:45)
[2023-08-08] MEDS: ASPIRIN 81 MG PO SCH (07:45)
[2023-08-08 08:53] LABS: Basophils % (A) 0 %; Eosinophils # (A) 0.2 k/uL (0-0.7); Eosinophils % (A) 1 %; HCT 36.4 % (39.0-53.0); HGB 11.8 gm/dL (13.0-17.5); Lymphocytes # (A) 0.7 k/uL (1.0-4.8); Lymphocytes % (A) 4 %; MCH 34.5 pg (25.0-35.0); MCHC 32.5 g/dL (31.0-37.0); MCV 106.4 fL (80.0-100.0); Macrocytosis Moderate; Mean Platelet Volume 10.6; Monocytes # (A) 0.9 k/uL (0-1.0); Monocytes % (A) 5 %; Neutrophils # (A) 16.3 k/uL (1.3-7.7); Neutrophils % (A) 89 %; Platelet Count 138 k/uL (150-450); RBC 3.42 m/uL (4.30-5.90); RDW 12.7 % (11.5-15.5); WBC 18.2 k/uL (3.8-10.6)
[2023-08-08 09:11] LABS: African American GFR (CKD) 39 (>60 ml/min/1.73 sqM); Anion Gap 13 mmol/L; Blood Urea Nitrogen 48 mg/dL (9-20); Calcium 7.2 mg/dL (8.4-10.2); Carbon Dioxide 21 mmol/L (22-30); Chloride 102 mmol/L (98-107); Glucose 131 mg/dL (74-99); Magnesium 1.4 mg/dL (1.6-2.3); Non-African American GFR(CKD) 34 (>60 ml/min/1.73 sqM); Sodium 136 mmol/L (137-145)
--- NOTE | 2023-08-08 10:18 | CA ---
Transthoracic Echo Report Name: Dru Valverde Age: 72 Gender: M : 1950 Exam Date: 08/07/2023 08:59 Exam Location: [place] [facility] Ht (in): 68 Wt (lb): 180 Ordering Physician: Anushka Baltazar Attending/Referring Phys: [id number], Delaney Hoist Operator Solange Caputo [facility] Procedure CPT: Indications: LV function, new onset afib Cardiac Hx: Technical Quality: Technically difficult study Contrast 1: Total Dose (mL): Contrast 2: Total Dose (mL): MEASUREMENTS (Male / Female) Normal Values 2D ECHO LV Diastolic Diameter PLAX 4.5 cm 4.2 - 5.9 / 3.9 - 5.3 cm LV Systolic Diameter PLAX 3.5 cm IVS Diastolic Thickness 1.1 cm 0.6 - 1.0 / 0.6 - 0.9 cm LVPW Diastolic Thickness 1.2 cm 0.6 - 1.0 / 0.6 - 0.9 cm LV Relative Wall Thickness 0.5 LVOT Diameter 2.1 cm Ascending Aorta Diameter 2.6 cm M-MODE Aortic Root Diameter MM 2.8 cm LA Systolic Diameter MM 4.4 cm LA Ao Ratio MM 1.6 AV Cusp Separation MM 2.0 cm DOPPLER AV Peak Velocity 118.3 cm/s AV Peak Gradient 5.6 mmHg AV Mean Velocity 94.0 cm/s AV Mean Gradient 3.7 mmHg AV Velocity Time Integral 26.0 cm LVOT Peak Velocity 89.6 cm/s LVOT Peak Gradient 3.2 mmHg LVOT Velocity Time Integral 19.3 cm LVOT Stroke Volume 65.3 cm??? LVOT Stroke Volume Index 33.4 ml/m??? LVOT Cardiac Index 2717.7 cm???/min???m??? AV Area Cont Eq vti 2.5 cm??? AV Area Cont Eq pk 2.6 cm??? Mitral E Point Velocity 81.8 cm/s Mitral A Point Velocity 62.4 cm/s Mitral E to A Ratio 1.3 MV Deceleration Time 189.9 ms LV E' Lateral Velocity 10.0 cm/s Mitral E to LV E' Lateral Ratio 8.2 LV E' Septal Velocity 6.5 cm/s Mitral E to LV E' Septal Ratio 12.5 Right Atrial Pressure 3.0 mmHg FINDINGS Left Ventricle Mildly increased left ventricular wall thickness. Left ventricular cavity size normal. Low normal left ventricular systolic function. Hypokinetic inferior wall. Left ventricular ejection fraction is estimated at 50-55%. Right Ventricle Mild right ventricular dilatation. Unable to estimate the right ventricular systolic pressure. Right Atrium Normal right atrial size. Left Atrium Moderate left atrial dilatation. Mitral Valve Structurally normal mitral valve. No mitral regurgitation. Aortic Valve Trileaflet aortic valve. No aortic valve stenosis or regurgitation. Tricuspid Valve Tricuspid valve not well visualized. Pulmonic Valve Pulmonic valve not well visualized. Pericardium No pericardial effusion. Aorta Normal size aortic root and proximal ascending aorta. CONCLUSIONS Preserved LV systolic function Mild inferior septal hypokinesis Previewed by: Dr. Justin Basilio MD (Electronically Signed) Final Date: 08 August 2023 10:17
[2023-08-08] MEDS ORDERED: amLODIPine 5 MG TAB PO STA (10:52)
[2023-08-08] MEDS ORDERED: hydrALAZINE HCL 20 MG/ML 1 ML VIAL IVP PRN (11:10)
--- NOTE | 2023-08-08 11:13 | P.PN ---
Subjective Patient is seen in follow-up for acute kidney injury. Renal function improving. Potassium level normal. Has Montalvo catheter. Nonoliguric. Oral intake fair. Underwent lymph node biopsy 08/07/2023. Vital signs are stable. General: No distress. HEENT: Head exam is unremarkable. LUNGS: No audible rhonchi or wheezes. HEART: Rate and Rhythm are regular. ABDOMEN: Nontender. EXTREMITITES: No edema. Objective - Vital Signs Vital signs: Vital Signs Temp 98.1 F 08/08/23 07:42 Pulse 89 08/08/23 07:42 Resp 18 08/08/23 07:42 BP 194/77 08/08/23 07:42 Pulse Ox 95 08/08/23 07:42 FiO2 Intake & Output 08/07/23 08/08/23 08/08/23 18:59 06:59 18:59 Intake Total 66.409 118 Output Total 1225 1000 Balance -1158.591 -1000 118 Intake: Intake, IV Titration 66.409 Amount Heparin Sod,Pork in 0.45% 66.409 NaCl 25,000 unit In 0.45 % NaCl 1 250ml.bag @ 12 UNITS/KG/HR 9.798 mls/hr IV .Q24H [facility] Rx#: [id number] Oral 118 Output: Urine 1225 1000 Uretheral (Montalvo) 1000 Other: Voiding Method Indwelling Catheter Indwelling Catheter - Labs CBC & Chem 7: 08/08/23 08:03 08/08/23 08:03 Labs: Abnormal Lab Results - Last 24 Hours (Table) 08/07/23 08/07/23 08/07/23 Range/Units 11:28 11:39 13:56 WBC (3.8-10.6) k/uL RBC (4.30-5.90) m/uL Hgb (13.0-17.5) gm/dL Hct (39.0-53.0) % MCV (80.0-100.0) fL Plt Count (150-450) k/uL Neutrophils # (1.3-7.7) k/uL Lymphocytes # (1.0-4.8) k/uL Sodium (137-145) mmol/L Carbon Dioxide (22-30) mmol/L BUN (9-20) mg/dL Creatinine (0.66-1.25) mg/dL Glucose (74-99) mg/dL POC Glucose (mg/dL) 147 H (70-110) mg/dL Calcium (8.4-10.2) mg/dL Ionized Calcium Buddy 3.7 L (4.5-5.3) mg/dL Magnesium (1.6-2.3) mg/dL Vitamin D 25-Hydroxy 6.4 L (30.0-100.0) ng/mL PTH Intact 147.0 H (14.0-72.0) pg/mL 08/07/23 08/07/23 08/08/23 Range/Units 16:54 20:28 06:03 WBC (3.8-10.6) k/uL RBC (4.30-5.90) m/uL Hgb (13.0-17.5) gm/dL Hct (39.0-53.0) % MCV (80.0-100.0) fL Plt Count (150-450) k/uL Neutrophils # (1.3-7.7) k/uL Lymphocytes # (1.0-4.8) k/uL Sodium (137-145) mmol/L Carbon Dioxide (22-30) mmol/L BUN (9-20) mg/dL Creatinine (0.66-1.25) mg/dL Glucose (74-99) mg/dL POC Glucose (mg/dL) 210 H 384 H 144 H (70-110) mg/dL Calcium (8.4-10.2) mg/dL Ionized Calcium Buddy (4.5-5.3) mg/dL Magnesium (1.6-2.3) mg/dL Vitamin D 25-Hydroxy (30.0-100.0) ng/mL PTH Intact (14.0-72.0) pg/mL 08/08/23 08/08/23 Range/Units 08:03 08:03 WBC 18.2 H (3.8-10.6) k/uL RBC 3.42 L (4.30-5.90) m/uL Hgb 11.8 L (13.0-17.5) gm/dL Hct 36.4 L (39.0-53.0) % MCV 106.4 H (80.0-100.0) fL Plt Count 138 L (150-450) k/uL Neutrophils # 16.3 H (1.3-7.7) k/uL Lymphocytes # 0.7 L (1.0-4.8) k/uL Sodium 136 L (137-145) mmol/L Carbon Dioxide 21 L (22-30) mmol/L BUN 48 H (9-20) mg/dL Creatinine 1.96 H (0.66-1.25) mg/dL Glucose 131 H (74-99) mg/dL POC Glucose (mg/dL) (70-110) mg/dL Calcium 7.2 L (8.4-10.2) mg/dL Ionized Calcium Buddy (4.5-5.3) mg/dL Magnesium 1.4 L (1.6-2.3) mg/dL Vitamin D 25-Hydroxy (30.0-100.0) ng/mL PTH Intact (14.0-72.0) pg/mL Microbiology - Last 24 Hours (Table) 08/04/23 15:15 Blood Culture - Preliminary Blood 08/04/23 15:30 Blood Culture - Preliminary Blood Assessment and Plan Plan: Assessment: 1. Acute kidney injury secondary to ATN secondary to hypotension and further worsened with the use of nonsteroidals and HEDY inhibitor. Also component of obstructive uropathy. Creatinine peaked at 7.44 this admission and is 1.96 today. Creatinine as low as 1.13 dated 11/07/2022. 2. Hyperkalemia secondary to acute kidney injury, metabolic acidosis, spironolactone and lisinopril. Also component of NSAIDs. Improved. 3. Metabolic acidosis secondary to acute kidney injury and metformin. Improved. 4. Right-sided hydronephrosis. Has Montalvo catheter. Urology following. 5. A. fib with RVR s/p Cardizem drip. On Lopressor. 6. Diabetes mellitus. 7. History of coronary disease with cardiac stenting. 8. Left neck mass s/p biopsy. 9. Hypocalcemia secondary to acute kidney injury. Replace. Better. PTH 147 and vitamin D level low at 6.4. 10. Hypomagnesemia from poor intake. 11. Benign hypertension. Blood pressure on the higher side. Plan: Maintain normal saline. Decrease rate to 50 mL an hour. Avoid nephrotoxins. Continue to monitor renal function and urine output. Continue to hold HEDY inhibitor at this time. Preserved ejection fraction noted on echocardiogram. Dose of amlodipine increased today. When necessary hydralazine. Add Drisdol. Replace magnesium.
[2023-08-08 11:44] LABS: Glucose,Whole Blood 317 mg/dL (70-110)
[2023-08-08] MEDS: MAGNESIUM SULFATE-D5W PMX 1 GM in DEXTROSE/WATER 1 100ML.BAG IVPB SCH ×2 (11:45→13:36)
[2023-08-08] MEDS ORDERED: ERGOCALCIFEROL 1,250 MCG (50,000 IU) CAPSULE PO SCH (12:00)
--- NOTE | 2023-08-08 13:00 | P.PN ---
Subjective HISTORY OF PRESENT ILLNESS: This is a 72-year-old male with a past medical history significant for bladder cancer with previous chemo and radiation, coronary artery disease with previous stenting, valvular heart disease including moderate mitral regurgitation, hypertension, hyperlipidemia, and carotid atherosclerosis. Patient follows in the office with Dr. Linda. We have been asked to see the patient in consultation for atrial fibrillation. Patient examined at the bedside. Patient presented to the hospital to chief complaint of left neck swelling. He states this has been going on for the past 4 weeks. He has been evaluated by ENT and biopsy was recommended. The patient was found to be in atrial fibrillation with RVR. The patient denies a previous history of atrial fibrillation. He was started on IV Cardizem. Subsequently he became hypotensive with a Cardizem drip with a blood pressure in the 80s. At the time of examination, he remains in atrial fibrillation with a heart rate between [id number]. He denies any dizziness or lightheadedness. He denies any palpitations. Denies any chest pain or pressure. He denies any shortness of breath. * EKG reveals atrial fibrillation with RVR * Chest xray negative for acute process * Laboratory data: WBC 9.4. Hemoglobin 11.1. Platelet count 150. Sodium 136. Potassium 4.2. BUN 110. Creatinine 7.11. * Current home cardiac medications include aspirin 81 mg daily, Lipitor 80 mg daily, carvedilol 12.5 mg daily, lisinopril 30 mg daily, and Aldactone 25 mg daily * Most recent echocardiogram obtained in May 2022 revealed normal ejection fraction with moderate MR * Cardiac catheterization history: July 2019 revealing critical disease involving the proximal and mid RCA, intermediate to severe disease involving the left circumflex, intermediate disease involving the ramus intermedius, and mild disease involving the LAD. Patient underwent stenting of the mid and proximal RCA. 08/07/2023 Patient examined this morning at the bedside. Patient denies chest pain or pressure. He denies shortness of breath. Patient currently on IV heparin. He is scheduled for lymph node biopsy today. Telemetry reveals sinus mechanism. 08/08/2023 Patient examined this morning at the bedside. He is status post lymph node biopsy. He denies chest pain or pressure. He denies shortness of breath. Patient's blood pressure is elevated with a systolic ranging between 150 and 170. Echocardiogram completed revealing ejection fraction 50-55%. PHYSICAL EXAM: VITAL SIGNS: Reviewed. GENERAL: Well-developed in no acute distress. HEENT: Head is normocephalic. Pupils are equal, round. Sclerae anicteric. Mucous membranes of the mouth are moist. Neck supple. No JVD or thyromegaly LUNGS: Respirations even and unlabored. Lungs essentially clear to auscultation bilaterally. HEART: Regular rate and rhythm. S1 and S2 heard. Systolic murmur noted. ABDOMEN: Soft. Nondistended. Nontender. EXTREMITIES: Normal range of motion. No clubbing or cyanosis. Peripheral pulses intact. No lower extremity edema NEUROLOGIC: Awake and alert. Oriented x 3. ASSESSMENT: Left neck swelling with lymphadenopathy New-onset paroxysmal atrial fibrillation with RVR, currently maintaining sinus mechanism Acute kidney injury Hyperkalemia Coronary artery disease with previous stenting Valvular heart disease including moderate MR Hypertension Hyperlipidemia Diabetes, uncontrolled, hemoglobin A1c 9.3 Carotid atherosclerosis History of bladder cancer with previous chemo and radiation PLAN: Continue oral anticoagulation with Eliquis 5mg BID Continue telemetry monitoring Discontinue aspirin Increase amlodipine to 10 mg daily for optimal blood pressure control Further recommendations pending patient's course Nurse practitioner note has been reviewed by physician. Signing provider agrees with the documented findings, assessment, and plan of care. Objective - Vital Signs Vital signs: Vital Signs Temp 98.2 F 08/08/23 11:43 Pulse 86 08/08/23 11:43 Resp 18 08/08/23 11:43 BP 155/78 08/08/23 11:43 Pulse Ox 95 08/08/23 11:43 FiO2 Intake & Output 08/07/23 08/08/23 08/08/23 18:59 06:59 18:59 Intake Total 66.409 118 Output Total 1225 1000 Balance -1158.591 -1000 118 Intake: Intake, IV Titration 66.409 Amount Heparin Sod,Pork in 0.45% 66.409 NaCl 25,000 unit In 0.45 % NaCl 1 250ml.bag @ 12 UNITS/KG/HR 9.798 mls/hr IV .Q24H [facility] Rx#: [id number] Oral 118 Output: Urine 1225 1000 Uretheral (Montalvo) 1000 Other: Voiding Method Indwelling Catheter Indwelling Catheter # Bowel Movements 1 - Labs CBC & Chem 7: 08/08/23 08:03 08/08/23 08:03 Labs: Abnormal Lab Results - Last 24 Hours (Table) 08/07/23 08/07/23 08/07/23 Range/Units 11:28 13:56 16:54 WBC (3.8-10.6) k/uL RBC (4.30-5.90) m/uL Hgb (13.0-17.5) gm/dL Hct (39.0-53.0) % MCV (80.0-100.0) fL Plt Count (150-450) k/uL Neutrophils # (1.3-7.7) k/uL Lymphocytes # (1.0-4.8) k/uL Sodium (137-145) mmol/L Carbon Dioxide (22-30) mmol/L BUN (9-20) mg/dL Creatinine (0.66-1.25) mg/dL Glucose (74-99) mg/dL POC Glucose (mg/dL) 210 H (70-110) mg/dL Calcium (8.4-10.2) mg/dL Magnesium (1.6-2.3) mg/dL Vitamin D 25-Hydroxy 6.4 L (30.0-100.0) ng/mL PTH Intact 147.0 H (14.0-72.0) pg/mL 08/07/23 08/08/23 08/08/23 Range/Units 20:28 06:03 08:03 WBC (3.8-10.6) k/uL RBC (4.30-5.90) m/uL Hgb (13.0-17.5) gm/dL Hct (39.0-53.0) % MCV (80.0-100.0) fL Plt Count (150-450) k/uL Neutrophils # (1.3-7.7) k/uL Lymphocytes # (1.0-4.8) k/uL Sodium 136 L (137-145) mmol/L Carbon Dioxide 21 L (22-30) mmol/L BUN 48 H (9-20) mg/dL Creatinine 1.96 H (0.66-1.25) mg/dL Glucose 131 H (74-99) mg/dL POC Glucose (mg/dL) 384 H 144 H (70-110) mg/dL Calcium 7.2 L (8.4-10.2) mg/dL Magnesium 1.4 L (1.6-2.3) mg/dL Vitamin D 25-Hydroxy (30.0-100.0) ng/mL PTH Intact (14.0-72.0) pg/mL 08/08/23 08/08/23 Range/Units 08:03 11:36 WBC 18.2 H (3.8-10.6) k/uL RBC 3.42 L (4.30-5.90) m/uL Hgb 11.8 L (13.0-17.5) gm/dL Hct 36.4 L (39.0-53.0) % MCV 106.4 H (80.0-100.0) fL Plt Count 138 L (150-450) k/uL Neutrophils # 16.3 H (1.3-7.7) k/uL Lymphocytes # 0.7 L (1.0-4.8) k/uL Sodium (137-145) mmol/L Carbon Dioxide (22-30) mmol/L BUN (9-20) mg/dL Creatinine (0.66-1.25) mg/dL Glucose (74-99) mg/dL POC Glucose (mg/dL) 317 H (70-110) mg/dL Calcium (8.4-10.2) mg/dL Magnesium (1.6-2.3) mg/dL Vitamin D 25-Hydroxy (30.0-100.0) ng/mL PTH Intact (14.0-72.0) pg/mL Microbiology - Last 24 Hours (Table) 08/04/23 15:15 Blood Culture - Preliminary Blood 08/04/23 15:30 Blood Culture - Preliminary Blood
[2023-08-08 13:57] LABS: Glucose,Whole Blood 323 mg/dL (70-110)
--- NOTE | 2023-08-08 15:53 | P.PN ---
Subjective Progress Note Date: 08/08/23 Principal diagnosis: History of bladder cancer, new left neck mass In follow-up today patient reports feeling okay. He is able to swallow some liquids and soft foods without choking, he is status post neck mass biopsy, no immediate complications post procedure. Patient denies any shortness of breath, nausea or vomiting, bleeding or new pain. Objective - Vital Signs Vital signs: Vital Signs Temp 98.2 F 08/08/23 11:43 Pulse 86 08/08/23 11:43 Resp 18 08/08/23 11:43 BP 155/78 08/08/23 11:43 Pulse Ox 95 08/08/23 11:43 FiO2 Intake & Output 08/07/23 08/08/23 08/08/23 18:59 06:59 18:59 Intake Total 66.409 236 Output Total 1225 1000 625 Balance -1158.591 -1000 -389 Intake: Intake, IV Titration 66.409 Amount Heparin Sod,Pork in 0.45% 66.409 NaCl 25,000 unit In 0.45 % NaCl 1 250ml.bag @ 12 UNITS/KG/HR 9.798 mls/hr IV .Q24H [facility] Rx#: [id number] Oral 236 Output: Urine 1225 1000 625 Uretheral (Montalvo) 1000 Other: Voiding Method Indwelling Catheter Indwelling Catheter # Bowel Movements 1 - Constitutional General appearance: Present: average body habitus, cooperative, no acute distress - EENT Eyes: Present: anicteric sclerae, EOMI ENT: Present: hearing grossly normal - Neck Neck: Present: lymphadenopathy (visible lt neck mass) - Respiratory Details: Respirations even and unlabored at rest - Integumentary Integumentary: Present: pale - Neurologic Neurologic: Present: CNII-XII intact (Grossly) - Psychiatric Psychiatric: Present: A&O x's 3, appropriate affect, intact judgment & insight - Labs CBC & Chem 7: 08/08/23 08:03 08/08/23 08:03 Labs: Abnormal Lab Results - Last 24 Hours (Table) 08/07/23 08/07/23 08/07/23 Range/Units 11:28 13:56 16:54 WBC (3.8-10.6) k/uL RBC (4.30-5.90) m/uL Hgb (13.0-17.5) gm/dL Hct (39.0-53.0) % MCV (80.0-100.0) fL Plt Count (150-450) k/uL Neutrophils # (1.3-7.7) k/uL Lymphocytes # (1.0-4.8) k/uL Sodium (137-145) mmol/L Carbon Dioxide (22-30) mmol/L BUN (9-20) mg/dL Creatinine (0.66-1.25) mg/dL Glucose (74-99) mg/dL POC Glucose (mg/dL) 210 H (70-110) mg/dL Calcium (8.4-10.2) mg/dL Magnesium (1.6-2.3) mg/dL Vitamin D 25-Hydroxy 6.4 L (30.0-100.0) ng/mL PTH Intact 147.0 H (14.0-72.0) pg/mL 08/07/23 08/08/23 08/08/23 Range/Units 20:28 06:03 08:03 WBC (3.8-10.6) k/uL RBC (4.30-5.90) m/uL Hgb (13.0-17.5) gm/dL Hct (39.0-53.0) % MCV (80.0-100.0) fL Plt Count (150-450) k/uL Neutrophils # (1.3-7.7) k/uL Lymphocytes # (1.0-4.8) k/uL Sodium 136 L (137-145) mmol/L Carbon Dioxide 21 L (22-30) mmol/L BUN 48 H (9-20) mg/dL Creatinine 1.96 H (0.66-1.25) mg/dL Glucose 131 H (74-99) mg/dL POC Glucose (mg/dL) 384 H 144 H (70-110) mg/dL Calcium 7.2 L (8.4-10.2) mg/dL Magnesium 1.4 L (1.6-2.3) mg/dL Vitamin D 25-Hydroxy (30.0-100.0) ng/mL PTH Intact (14.0-72.0) pg/mL 08/08/23 08/08/23 08/08/23 Range/Units 08:03 11:36 13:38 WBC 18.2 H (3.8-10.6) k/uL RBC 3.42 L (4.30-5.90) m/uL Hgb 11.8 L (13.0-17.5) gm/dL Hct 36.4 L (39.0-53.0) % MCV 106.4 H (80.0-100.0) fL Plt Count 138 L (150-450) k/uL Neutrophils # 16.3 H (1.3-7.7) k/uL Lymphocytes # 0.7 L (1.0-4.8) k/uL Sodium (137-145) mmol/L Carbon Dioxide (22-30) mmol/L BUN (9-20) mg/dL Creatinine (0.66-1.25) mg/dL Glucose (74-99) mg/dL POC Glucose (mg/dL) 317 H 323 H (70-110) mg/dL Calcium (8.4-10.2) mg/dL Magnesium (1.6-2.3) mg/dL Vitamin D 25-Hydroxy (30.0-100.0) ng/mL PTH Intact (14.0-72.0) pg/mL Microbiology - Last 24 Hours (Table) 08/04/23 15:15 Blood Culture - Preliminary Blood 08/04/23 15:30 Blood Culture - Preliminary Blood Assessment and Plan (1) Mass of left side of neck Current Visit: Yes Status: Acute Priority: High Code(s): R22.1 - LOCALIZED SWELLING, MASS AND LUMP, NECK SNOMED Code(s): 277666779 (2) Bladder cancer Current Visit: No Status: Chronic Priority: Medium Code(s): C67.9 - MALIGNANT NEOPLASM OF BLADDER, UNSPECIFIED SNOMED Code(s): 514235584 Plan: Mass of the left neck -Examination of the mass concerning for malignancy. -Interventional Radiology has performed core biopsy of the lt neck mass, path pending -Follow up with Medical Oncologist appointment date and time in the discharge plan History of bladder cancer -Patient is not followed up since 2021 with urology. -Not thinking that this parotid mass is metastasis but, pending biopsy results Vomiting-resolved -Cont antiemetics PRN
[2023-08-08 16:37] LABS: Glucose,Whole Blood 250 mg/dL (70-110)
[2023-08-08 20:51] LABS: Glucose,Whole Blood 276 mg/dL (70-110)
--- NOTE | 2023-08-08 20:54 | P.PN ---
Progress Note - Text Progress Note Date: 08/08/23 Chief Complaint: Neck lump pain Pleasant 72-year-old patient who follows with Dr. Johnny Rubio./Mid-level provider-Kareen. Chronic stable medical conditions include CAD with stent in 2018, diabetes, hypertension, hyperlipidemia, osteoporosis, bladder cancer with treatment in remission and cystoscopy 2020, patient had right hip surgery in October of this year now does use a walker when he goes outside. Otherwise a cane. Patient came to the ER as patient was having significant pain in the left neck mass. No masses. Diagnosed in June. Was given a course of antibiotic to the primary care's office. Not much response. And patient underwent ultrasound. Subsequently a CAT scan was ordered that is pending to be done. Patient progressively in the last few days has started having increasing pain in the left neck mass. Has been having nausea vomiting for the last 2 days. No obvious fever. In the ER found to be in renal failure. Patient is taking Tylenol arthritis at home. Patient is accompanied by his . Denies any loss of weight. No change in swallowing or trouble eating. August 06: Pain better controlled in the left neck lump. Ultrasound guided biopsy per ENT. Nausea per present. Decreased oral intake. Patient went into A. fib with rapid ventricular rate. Cardiology consulted. Lopressor was added. IV heparin. Discussed with patient and . Ensure added. August 07: Patient seen by me this morning. Was pending biopsy. Nothing by mouth. Late underwent biopsy. Patient remains in sinus rhythm. IV heparin was held. Low ionized calcium. Calcium gluconate ordered. August 08: Feeling better today. Relevant this patient sit up in a chair. At baseline uses a walker. Biopsy was done yesterday. Spoke to the nurse to get the patient up in a chair. Creatinine coming down. Active Medications Acetaminophen/Codeine Phosphate (Acetaminophen-Codeine 300-30mg Tab) 1 each PO Q6HR PRN PRN Reason: Pain Last Admin: 08/07/23 18:42 Dose: 1 each Amlodipine Besylate (Amlodipine 10 Mg Tab) 10 mg PO DAILY [facility] Apixaban (Apixaban 5 Mg Tab) 5 mg PO BID [facility]; Protocol Last Admin: 08/08/23 07:44 Dose: 5 mg Atorvastatin Calcium (Atorvastatin 80 Mg Tab) 80 mg PO DAILY [facility] Last Admin: 08/08/23 07:45 Dose: 80 mg Dextrose/Water (Dextrose 50% Syringe 50 Ml) 25 ml IVP PER PROTOCOL PRN; Protocol PRN Reason: Hypoglycemia Dextrose/Water (Dextrose 50% Syringe 50 Ml) 50 ml IVP PER PROTOCOL PRN; Protocol PRN Reason: Hypoglycemia Ergocalciferol (Ergocalciferol 1,250 Mcg (50,000 Iu) Capsule) 1,250 mcg PO Q7D [facility] Last Admin: 08/08/23 15:48 Dose: 1,250 mcg Hydralazine HCl (Hydralazine Hcl 20 Mg/Ml 1 Ml Vial) 10 mg IVP Q6HR PRN PRN Reason: Blood Pressure - High Ceftriaxone Sodium 1 gm/ (Sodium Chloride) 50 mls @ 100 mls/hr IVPB Q24HR [facility]; Protocol Last Admin: 08/08/23 07:45 Dose: 100 mls/hr Sodium Chloride (Saline 0.9%) 1,000 mls @ 50 mls/hr IV .Q20H [facility] Last Admin: 08/08/23 03:57 Dose: 75 mls/hr Insulin Aspart (Insulin Aspart (Novolog) 100 Unit/Ml Vial) 0 unit SQ AC-TID [facility]; Protocol Last Admin: 08/08/23 16:40 Dose: 4 unit Insulin Detemir (Insulin Detemir (Levemir) 100 Unit/Ml Syr) 16 unit SQ HS [facility] Last Admin: 08/07/23 20:37 Dose: 16 unit Metoclopramide HCl (Metoclopramide 5 Mg/Ml 2 Ml Vial) 10 mg IVP Q8HR PRN PRN Reason: Nausea And Vomiting Last Admin: 08/07/23 18:34 Dose: 10 mg Metoprolol Tartrate (Metoprolol Tartrate 25 Mg Tab) 25 mg PO BID [facility] Last Admin: 08/08/23 07:45 Dose: 25 mg Naloxone HCl (Naloxone 0.4 Mg/Ml 1 Ml Vial) 0.2 mg IV Q2M PRN PRN Reason: Opioid Reversal Non Formulary Drug ( Liraglutide [Victoza ] 0.6 Mg/0.1 Ml Ml) 1.8 mg SQ DAILY [facility] Last Admin: 08/08/23 07:44 Dose: 1.8 mg Social history: Used to work in a [employer] . 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 Patient Smoked for 50 Years Stopped in 2019. Also Is Drinking Excessive Alcohol up to 2019. Physical examination: VITAL SIGNS: 99, 91, 18, 160/74, 95% room air GENERAL: Laying in bed, tired EYES: Pupils equal. Conjunctiva normal. HEENT: External appearance of nose and ears normal, oral cavity grossly normal. NECK: JVD not raised; masses not palpable. Hard mass of the left upper neck going to the mandible. Hard. Some tenderness. HEART: Heart sounds irregular; no edema. LUNGS: Respiratory rate normal; decreased breath sounds. ABDOMEN: Soft, nontender, liver spleen not palpable, no masses palpable. PSYCH: Alert and oriented x3; mood and affect anxious MUSCULOSKELETAL:No Clubbing/cyanosis;muscles-grossly intact. OA INVESTIGATIONS, reviewed in the clinical context: August 08: White count 18.2 hemoglobin 11.8 platelets 138 potassium 4 BUN 48 creatinine 1.96 August 07: White count 12 hemoglobin 10.3 potassium 4.1 BUN 75 creatinine 2.78 potassium 6.4. Ionized calcium 3.7. August 06: White count 11 hemoglobin 11 platelets are 52 potassium 3.5 BUN [address] soft tissue neck without contrast: Enlargement of the left parotid gland with surrounding the inflammatory attenuation as well as skeletal thinking. Also inflammatory thickening of the left sternocleidomastoid musculature. Surrounding reactive adenopathy. No obstructing Loss. CT chest abdomen pelvis: Small bowel guarded to 3 cm. Mild right-sided hydronephrosis. Gallstones August 05: White count 12.2 hemoglobin 13.1 platelets 198 sodium 136 potassium 5. 3 repeat 4.2 BUN 110 crit and 7.11 August 04: White count 15.6 hemoglobin 14.5 sodium 137 potassium 7.8 BUN 106 creatinine 6.97 bicarb 8 Troponin I 0.045 UA trace protein Influenza type A, B, RSV, COVID-19: Not detected Chest x-ray film personally reviewed by me-hyperinflation. Some pulmonary artery prominence EKG tracing personally reviewed by me-possible ectopic atrial rhythm. Ultrasound kidney: Mild right-sided hydronephrosis. Previous labs: 11/07/2022: Creatinine 1.13 Ultrasound soft tissue left neck: [07/24/2023] numerous thickened and borderline enlarged lymph nodes along the left side of neck. Assessment and plan: -Acute kidney injury, likely ATN.: Improving Patient been having nausea vomiting at home and not drinking. Patient also was on metformin, Zestril, hydrochlorothiazide, Aldactone, Bactrim DS. And Celebrex.-All of the above are being discontinued Sodium bicarbonate drip-discontinued. Nephrology following. Kidney ultrasound noted Paroxysmal atrial fibrillation with a rapid ventricular rate, currently sinus rhythm IV Cardizem drip-discontinued. IV heparin held. Lopressor 25 mg twice a day -IV heparin monitoring Follow PTT -Severe hyperkalemia from renal failure: Corrected Aldactone, Zestril, Bactrim all discontinued Bicarbonate drip. IV fluids. Renal diet. Insulin. Kayexalate. -Severe metabolic acidosis from renal failure: Better IV bicarbonate drip.-Discontinued -Left upper neck mass. 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 Need to rule out underlying malignancy. IV ceftriaxone. Warm compress ultrasound-guided needle biopsy done August 07 -CAD with stent 2019 Aspirin. Coreg -Hyperlipidemia Lipitor -Diabetes mellitus type 2 on oral hypoglycemic Follow Accu-Cheks and sliding scale Levemir 16units subcu daily at bedtime. Hold oral hypoglycemic -Full code Discussed with patient. At the baseline uses a walker. Plan for discharge home. They follow up outpatient with oncology.
[2023-08-08] MEDS: INSULIN DETEMIR (LEVEMIR) 100 UNIT/ML SYR SQ SCH (21:19)
[2023-08-09 05:57] LABS: Glucose,Whole Blood 159 mg/dL (70-110)
[2023-08-09] MEDS: INSULIN ASPART (NovoLOG) 100 UNIT/ML VIAL SQ SCH ×3 (06:51→16:54)
[2023-08-09 08:08] LABS: African American GFR (CKD) 52 (>60 ml/min/1.73 sqM); Anion Gap 7 mmol/L; Blood Urea Nitrogen 30 mg/dL (9-20); Calcium 6.7 mg/dL (8.4-10.2); Carbon Dioxide 22 mmol/L (22-30); Chloride 103 mmol/L (98-107); Glucose 148 mg/dL (74-99); Magnesium 1.7 mg/dL (1.6-2.3); Non-African American GFR(CKD) 45 (>60 ml/min/1.73 sqM); Potassium 3.8 mmol/L (3.5-5.1); Sodium 132 mmol/L (137-145)
[2023-08-09] MEDS: Acetaminophen-Codeine 300-30mg TAB PO PRN (09:43)
[2023-08-09] MEDS: METOPROLOL TARTRATE 25 MG TAB PO SCH ×2 (09:45→20:09)
[2023-08-09] MEDS: ATORVASTATIN 80 MG TAB PO SCH (09:46)
[2023-08-09] MEDS: amLODIPine 10 MG TAB PO SCH (09:46)
[2023-08-09] MEDS: APIXABAN 5 MG TAB PO SCH ×2 (09:46→20:08)
[2023-08-09] MEDS: LIRAGLUTIDE 0.6 MG/0.1 ML SQ SCH (09:51)
[2023-08-09] MEDS ORDERED: CALCIUM GLUCONATE IN NACL 1 GM in SALINE 1 100ML.BAG IVPB ONE (11:45)
--- NOTE | 2023-08-09 11:45 | P.PN ---
Subjective Patient is seen in follow-up for acute kidney injury. Renal function improving. Has Montalvo catheter. Nonoliguric. Oral intake fair. Underwent lymph node biopsy 08/07/2023. No active complaints at this time. Vital signs are stable. General: No acute distress. Sitting up in chair. HEENT: Head exam is unremarkable. LUNGS: No audible rhonchi or wheezes. HEART: Rate and Rhythm are regular. ABDOMEN: Nontender. EXTREMITITES: No edema. Objective - Vital Signs Vital signs: Vital Signs Temp 98.6 F 08/09/23 08:00 Pulse 88 08/09/23 09:13 Resp 18 08/09/23 09:13 BP 198/83 08/09/23 08:00 Pulse Ox 95 08/09/23 08:00 FiO2 Intake & Output 08/08/23 08/09/23 08/09/23 18:59 06:59 18:59 Intake Total 472 118 Output Total 625 850 300 Balance -153 -850 -182 Weight 88.5 kg Intake: Oral 472 118 Output: Urine 625 850 300 Other: Voiding Method Indwelling Catheter Indwelling Catheter Indwelling Catheter # Bowel Movements 1 - Labs CBC & Chem 7: 08/08/23 08:03 08/09/23 07:06 Labs: Abnormal Lab Results - Last 24 Hours (Table) 08/08/23 08/08/23 08/08/23 Range/Units 11:36 13:38 16:31 Sodium (137-145) mmol/L BUN (9-20) mg/dL Creatinine (0.66-1.25) mg/dL Glucose (74-99) mg/dL POC Glucose (mg/dL) 317 H 323 H 250 H (70-110) mg/dL Calcium (8.4-10.2) mg/dL 08/08/23 08/09/23 08/09/23 Range/Units 20:48 05:55 07:06 Sodium 132 L (137-145) mmol/L BUN 30 H (9-20) mg/dL Creatinine 1.54 H (0.66-1.25) mg/dL Glucose 148 H (74-99) mg/dL POC Glucose (mg/dL) 276 H 159 H (70-110) mg/dL Calcium 6.7 L (8.4-10.2) mg/dL Assessment and Plan Plan: Assessment: 1. Acute kidney injury secondary to ATN secondary to hypotension and further worsened with the use of nonsteroidals and HEDY inhibitor. Also component of obstructive uropathy. Creatinine peaked at 7.44 this admission and is 1.54 today. Creatinine as low as 1.13 dated 11/07/2022. 2. Hyperkalemia secondary to acute kidney injury, metabolic acidosis, spironolactone and lisinopril. Also component of NSAIDs. Improved. 3. Metabolic acidosis secondary to acute kidney injury and metformin. Improved. 4. Right-sided hydronephrosis. Has Montalvo catheter. Urology following. 5. A. fib with RVR s/p Cardizem drip. On Lopressor. 6. Diabetes mellitus. 7. History of coronary disease with cardiac stenting. 8. Left neck mass s/p biopsy. 9. Hypocalcemia secondary to acute kidney injury. Replaced. PTH 147 and vitamin D level low at 6.4. On Drisdol. 10. Hypomagnesemia from poor intake. Replaced. Better. 11. Benign hypertension. Blood pressure on the higher side. Plan: Hep-Lock IV fluids. Avoid nephrotoxins. Continue to monitor renal function and urine output. Add scheduled hydralazine. Preserved ejection fraction noted on echocardiogram. Add oral magnesium oxide.
[2023-08-09 11:52] LABS: Glucose,Whole Blood 259 mg/dL (70-110)
--- NOTE | 2023-08-09 11:56 | P.PN ---
Subjective HISTORY OF PRESENT ILLNESS: This is a 72-year-old male with a past medical history significant for bladder cancer with previous chemo and radiation, coronary artery disease with previous stenting, valvular heart disease including moderate mitral regurgitation, hypertension, hyperlipidemia, and carotid atherosclerosis. Patient follows in the office with Dr. Linda. We have been asked to see the patient in consultation for atrial fibrillation. Patient examined at the bedside. Patient presented to the hospital to chief complaint of left neck swelling. He states this has been going on for the past 4 weeks. He has been evaluated by ENT and biopsy was recommended. The patient was found to be in atrial fibrillation with RVR. The patient denies a previous history of atrial fibrillation. He was started on IV Cardizem. Subsequently he became hypotensive with a Cardizem drip with a blood pressure in the 80s. At the time of examination, he remains in atrial fibrillation with a heart rate between 183027. He denies any dizziness or lightheadedness. He denies any palpitations. Denies any chest pain or pressure. He denies any shortness of breath. * EKG reveals atrial fibrillation with RVR * Chest xray negative for acute process * Laboratory data: WBC 9.4. Hemoglobin 11.1. Platelet count 150. Sodium 136. Potassium 4.2. BUN 110. Creatinine 7.11. * Current home cardiac medications include aspirin 81 mg daily, Lipitor 80 mg daily, carvedilol 12.5 mg daily, lisinopril 30 mg daily, and Aldactone 25 mg daily * Most recent echocardiogram obtained in May 2022 revealed normal ejection fraction with moderate MR * Cardiac catheterization history: July 2019 revealing critical disease involving the proximal and mid RCA, intermediate to severe disease involving the left circumflex, intermediate disease involving the ramus intermedius, and mild disease involving the LAD. Patient underwent stenting of the mid and proximal RCA. 08/07/2023 Patient examined this morning at the bedside. Patient denies chest pain or pressure. He denies shortness of breath. Patient currently on IV heparin. He is scheduled for lymph node biopsy today. Telemetry reveals sinus mechanism. 08/08/2023 Patient examined this morning at the bedside. He is status post lymph node biopsy. He denies chest pain or pressure. He denies shortness of breath. Patient's blood pressure is elevated with a systolic ranging between 150 and 170. Echocardiogram completed revealing ejection fraction 50-55%. 08/09/2023 Patient examined this morning. Patient is sitting up in the chair. Patient denies chest pain or pressure. He denies shortness of breath. Patient's blood pressure remains elevated this morning with a reading of 190/83. Repeat blood pressure after morning medications remains elevated with a systolic in the 180s. PHYSICAL EXAM: VITAL SIGNS: Reviewed. GENERAL: Well-developed in no acute distress. HEENT: Head is normocephalic. Pupils are equal, round. Sclerae anicteric. Mucous membranes of the mouth are moist. Neck supple. No JVD or thyromegaly LUNGS: Respirations even and unlabored. Lungs essentially clear to auscultation bilaterally. HEART: Regular rate and rhythm. S1 and S2 heard. Systolic murmur noted. ABDOMEN: Soft. Nondistended. Nontender. EXTREMITIES: Normal range of motion. No clubbing or cyanosis. Peripheral pulses intact. No lower extremity edema NEUROLOGIC: Awake and alert. Oriented x 3. ASSESSMENT: Left neck swelling with lymphadenopathy New-onset paroxysmal atrial fibrillation with RVR, currently maintaining sinus mechanism Acute kidney injury Hyperkalemia Coronary artery disease with previous stenting Valvular heart disease including moderate MR Hypertension Hyperlipidemia Diabetes, uncontrolled, hemoglobin A1c 9.3 Carotid atherosclerosis History of bladder cancer with previous chemo and radiation PLAN: Continue oral anticoagulation with Eliquis Continue telemetry monitoring Amlodipine increased yesterday to 10 mg daily Hydralazine 50 mg 3 times a day has been added per nephrology Continue to monitor blood pressure. We will sign off. Please reconsult if needed Nurse practitioner note has been reviewed by physician. Signing provider agrees with the documented findings, assessment, and plan of care. Objective - Vital Signs Vital signs: Vital Signs Temp 98.6 F 08/09/23 08:00 Pulse 88 08/09/23 09:13 Resp 18 08/09/23 09:13 BP 198/83 08/09/23 08:00 Pulse Ox 95 08/09/23 08:00 FiO2 Intake & Output 08/08/23 08/09/23 08/09/23 18:59 06:59 18:59 Intake Total 472 118 Output Total 625 850 300 Balance -153 -850 -182 Weight 88.5 kg Intake: Oral 472 118 Output: Urine 625 850 300 Other: Voiding Method Indwelling Catheter Indwelling Catheter Indwelling Catheter # Bowel Movements 1 - Labs CBC & Chem 7: 08/08/23 08:03 08/09/23 07:06 Labs: Abnormal Lab Results - Last 24 Hours (Table) 08/08/23 08/08/23 08/08/23 Range/Units 13:38 16:31 20:48 Sodium (137-145) mmol/L BUN (9-20) mg/dL Creatinine (0.66-1.25) mg/dL Glucose (74-99) mg/dL POC Glucose (mg/dL) 323 H 250 H 276 H (70-110) mg/dL Calcium (8.4-10.2) mg/dL 08/09/23 08/09/23 08/09/23 Range/Units 05:55 07:06 11:50 Sodium 132 L (137-145) mmol/L BUN 30 H (9-20) mg/dL Creatinine 1.54 H (0.66-1.25) mg/dL Glucose 148 H (74-99) mg/dL POC Glucose (mg/dL) 159 H 259 H (70-110) mg/dL Calcium 6.7 L (8.4-10.2) mg/dL
[2023-08-09] MEDS: hydrALAZINE HCL 50 MG TAB PO SCH ×3 (12:39→20:09)
--- NOTE | 2023-08-09 12:54 | P.PN ---
Subjective Progress Note Date: 08/09/23 Principal diagnosis: History of bladder cancer, new left neck mass In follow-up today patient eating soft foods, no choking, he states his blood pressure is high today and that being worked on. He denies any hearing loss, face and jaw pain on the left side, denies any drainage from biopsy site. Objective - Vital Signs Vital signs: Vital Signs Temp 98.3 F 08/09/23 12:00 Pulse 87 08/09/23 12:00 Resp 20 08/09/23 12:00 BP 191/79 08/09/23 12:00 Pulse Ox 97 08/09/23 12:00 FiO2 Intake & Output 08/08/23 08/09/23 08/09/23 18:59 06:59 18:59 Intake Total 472 118 Output Total 625 850 300 Balance -153 -850 -182 Weight 88.5 kg Intake: Oral 472 118 Output: Urine 625 850 300 Other: Voiding Method Indwelling Catheter Indwelling Catheter Indwelling Catheter # Bowel Movements 1 - Constitutional General appearance: Present: average body habitus, cooperative, no acute distress - EENT Eyes: Present: anicteric sclerae, EOMI ENT: Present: hearing grossly normal - Neck Details: Visible left neck mass, hard, fixed, painless to the touch. Band-Aid still in place from biopsy site. No unusual drainage or bruising seen in the immediate area - Respiratory Details: Respirations even and unlabored at rest - Peripheral edema leg Peripheral Edema: bilateral: None - Musculoskeletal Musculoskeletal: Present: strength equal bilaterally - Psychiatric Psychiatric: Present: A&O x's 3, appropriate affect, intact judgment & insight - Labs CBC & Chem 7: 08/08/23 08:03 08/09/23 07:06 Labs: Abnormal Lab Results - Last 24 Hours (Table) 08/08/23 08/08/23 08/08/23 Range/Units 13:38 16:31 20:48 Sodium (137-145) mmol/L BUN (9-20) mg/dL Creatinine (0.66-1.25) mg/dL Glucose (74-99) mg/dL POC Glucose (mg/dL) 323 H 250 H 276 H (70-110) mg/dL Calcium (8.4-10.2) mg/dL 08/09/23 08/09/23 08/09/23 Range/Units 05:55 07:06 11:50 Sodium 132 L (137-145) mmol/L BUN 30 H (9-20) mg/dL Creatinine 1.54 H (0.66-1.25) mg/dL Glucose 148 H (74-99) mg/dL POC Glucose (mg/dL) 159 H 259 H (70-110) mg/dL Calcium 6.7 L (8.4-10.2) mg/dL Assessment and Plan (1) Mass of left side of neck Current Visit: Yes Status: Acute Priority: High Code(s): R22.1 - LOCALIZED SWELLING, MASS AND LUMP, NECK SNOMED Code(s): 132885311 (2) Bladder cancer Current Visit: No Status: Chronic Priority: Medium Code(s): C67.9 - MALIGNANT NEOPLASM OF BLADDER, UNSPECIFIED SNOMED Code(s): 400446188 Plan: Mass of the left neck -Examination of the mass concerning for malignancy. -Interventional Radiology has performed core biopsy of the lt neck mass, path pending -Follow up with Medical Oncologist appointment date and time in the discharge plan -Once pathology is available, Medical Oncologist will review. If any additional testing is needed prior to follow-up appointment, that will be ordered and patient will be informed. History of bladder cancer -Patient is not followed up since 2021 with urology. -Not thinking that this parotid mass is metastasis but, pending biopsy results Barrier to healthcare is patient co-pay costs. He is on social security with a fixed monthly income.
[2023-08-09] MEDS: MAGNESIUM OXIDE 400 MG TAB PO SCH (15:48)
[2023-08-09 16:36] LABS: Glucose,Whole Blood 275 mg/dL (70-110)
--- NOTE | 2023-08-09 17:37 | P.PN ---
Progress Note - Text Progress Note Date: 08/09/23 Chief Complaint: Neck lump pain Pleasant 72-year-old patient who follows with Dr. Johnny Rubio./Mid-level provider-Kareen. Chronic stable medical conditions include CAD with stent in 2018, diabetes, hypertension, hyperlipidemia, osteoporosis, bladder cancer with treatment in remission and cystoscopy 2020, patient had right hip surgery in October of this year now does use a walker when he goes outside. Otherwise a cane. Patient came to the ER as patient was having significant pain in the left neck mass. No masses. Diagnosed in June. Was given a course of antibiotic to the primary care's office. Not much response. And patient underwent ultrasound. Subsequently a CAT scan was ordered that is pending to be done. Patient progressively in the last few days has started having increasing pain in the left neck mass. Has been having nausea vomiting for the last 2 days. No obvious fever. In the ER found to be in renal failure. Patient is taking Tylenol arthritis at home. Patient is accompanied by his . Denies any loss of weight. No change in swallowing or trouble eating. August 06: Pain better controlled in the left neck lump. Ultrasound guided biopsy per ENT. Nausea per present. Decreased oral intake. Patient went into A. fib with rapid ventricular rate. Cardiology consulted. Lopressor was added. IV heparin. Discussed with patient and . Ensure added. August 07: Patient seen by me this morning. Was pending biopsy. Nothing by mouth. Late underwent biopsy. Patient remains in sinus rhythm. IV heparin was held. Low ionized calcium. Calcium gluconate ordered. August 08: Feeling better today. Relevant this patient sit up in a chair. At baseline uses a walker. Biopsy was done yesterday. Spoke to the nurse to get the patient up in a chair. Creatinine coming down. August 09: Creatinine continues to come down. Eating well. Up in a chair. Discussed with patient. Biopsy results [id number] with oncology outpatient.. Hydralazine 50 mg 3 times a day added for blood pressure Active Medications Acetaminophen/Codeine Phosphate (Acetaminophen-Codeine 300-30mg Tab) 1 each PO Q6HR PRN PRN Reason: Pain Last Admin: 08/09/23 09:43 Dose: 1 each Amlodipine Besylate (Amlodipine 10 Mg Tab) 10 mg PO DAILY [facility] Last Admin: 08/09/23 09:46 Dose: 10 mg Apixaban (Apixaban 5 Mg Tab) 5 mg PO BID [facility]; Protocol Last Admin: 08/09/23 09:46 Dose: 5 mg Atorvastatin Calcium (Atorvastatin 80 Mg Tab) 80 mg PO DAILY [facility] Last Admin: 08/09/23 09:46 Dose: 80 mg Dextrose/Water (Dextrose 50% Syringe 50 Ml) 25 ml IVP PER PROTOCOL PRN; Protocol PRN Reason: Hypoglycemia Dextrose/Water (Dextrose 50% Syringe 50 Ml) 50 ml IVP PER PROTOCOL PRN; Protocol PRN Reason: Hypoglycemia Ergocalciferol (Ergocalciferol 1,250 Mcg (50,000 Iu) Capsule) 1,250 mcg PO Q7D [facility] Last Admin: 08/08/23 15:48 Dose: 1,250 mcg Hydralazine HCl (Hydralazine Hcl 50 Mg Tab) 50 mg PO TID [facility] Last Admin: 08/09/23 15:48 Dose: 50 mg Ceftriaxone Sodium 1 gm/ (Sodium Chloride) 50 mls @ 100 mls/hr IVPB Q24HR [facility]; Protocol Last Admin: 08/09/23 09:47 Dose: 100 mls/hr Insulin Aspart (Insulin Aspart (Novolog) 100 Unit/Ml Vial) 0 unit SQ AC-TID [facility]; Protocol Last Admin: 08/09/23 16:54 Dose: 6 unit Insulin Detemir (Insulin Detemir (Levemir) 100 Unit/Ml Syr) 16 unit SQ HS [facility] Last Admin: 08/08/23 21:19 Dose: 16 unit Magnesium Oxide (Magnesium Oxide 400 Mg Tab) 400 mg PO DAILY [facility] Last Admin: 08/09/23 15:48 Dose: 400 mg Metoclopramide HCl (Metoclopramide 5 Mg/Ml 2 Ml Vial) 10 mg IVP Q8HR PRN PRN Reason: Nausea And Vomiting Last Admin: 08/07/23 18:34 Dose: 10 mg Metoprolol Tartrate (Metoprolol Tartrate 25 Mg Tab) 25 mg PO BID [facility] Last Admin: 08/09/23 09:45 Dose: 25 mg Naloxone HCl (Naloxone 0.4 Mg/Ml 1 Ml Vial) 0.2 mg IV Q2M PRN PRN Reason: Opioid Reversal Non Formulary Drug ( Liraglutide [Victoza ] 0.6 Mg/0.1 Ml Ml) 1.8 mg SQ DAILY [facility] Last Admin: 08/09/23 09:51 Dose: 1.8 mg 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 Patient Smoked for 50 Years Stopped in 2019. Also Is Drinking Excessive Alcohol up to 2019. Physical examination: VITAL SIGNS: 98.3, 83, 18, 150/2, 95% room air GENERAL: Up in a chair, comfortable EYES: Pupils equal. Conjunctiva normal. HEENT: External appearance of nose and ears normal, oral cavity grossly normal. NECK: JVD not raised; masses not palpable. Hard mass of the left upper neck going to the mandible. Hard. Some tenderness. HEART: Heart sounds irregular; no edema. LUNGS: Respiratory rate normal; decreased breath sounds. ABDOMEN: Soft, nontender, liver spleen not palpable, no masses palpable. PSYCH: Alert and oriented x3; mood and affect anxious MUSCULOSKELETAL:No Clubbing/cyanosis;muscles-grossly intact. OA INVESTIGATIONS, reviewed in the clinical context: August 09: Sodium 132 potassium 3.8 BUN 30 creatinine 1.5 for August 08: White count 18.2 hemoglobin 11.8 platelets 138 potassium 4 BUN 48 creatinine 1.96 August 07: White count 12 hemoglobin 10.3 potassium 4.1 BUN 75 creatinine 2.78 potassium 6.4. Ionized calcium 3.7. August 06: White count 11 hemoglobin 11 platelets are 52 potassium 3.5 BUN [address] soft tissue neck without contrast: Enlargement of the left parotid gland with surrounding the inflammatory attenuation as well as skeletal thinking. Also inflammatory thickening of the left sternocleidomastoid musculature. Surrounding reactive adenopathy. No obstructing Loss. CT chest abdomen pelvis: Small bowel guarded to 3 cm. Mild right-sided hydronephrosis. Gallstones August 05: White count 12.2 hemoglobin 13.1 platelets 198 sodium 136 potassium 5. 3 repeat 4.2 BUN 110 crit and 7.11 August 04: White count 15.6 hemoglobin 14.5 sodium 137 potassium 7.8 BUN 106 creatinine 6.97 bicarb 8 Troponin I 0.045 UA trace protein Influenza type A, B, RSV, COVID-19: Not detected Chest x-ray film personally reviewed by me-hyperinflation. Some pulmonary artery prominence EKG tracing personally reviewed by me-possible ectopic atrial rhythm. Ultrasound kidney: Mild right-sided hydronephrosis. Previous labs: 11/07/2022: Creatinine 1.13 Ultrasound soft tissue left neck: [07/24/2023] numerous thickened and borderline enlarged lymph nodes along the left side of neck. Assessment and plan: -Acute kidney injury, likely ATN.: Improving Patient been having nausea vomiting at home and not drinking. Patient also was on metformin, Zestril, hydrochlorothiazide, Aldactone, Bactrim DS. And Celebrex.-All of the above are being discontinued Sodium bicarbonate drip-discontinued. Nephrology following. Kidney ultrasound noted Paroxysmal atrial fibrillation with a rapid ventricular rate, currently sinus rhythm IV Cardizem drip-discontinued. IV heparin held. Lopressor 25 mg twice a day Eliquis -Essential hypertension Lopressor 25 mg twice a day Hydralazine 50 mg 3 times a day I -IV heparin monitoring-discontinued Follow PTT -Severe hyperkalemia from renal failure: Corrected Aldactone, Zestril, Bactrim all discontinued Bicarbonate drip. IV fluids. Renal diet. Insulin. Kayexalate. -Severe metabolic acidosis from renal failure: Better IV bicarbonate drip.-Discontinued -Hypocalcemia IV calcium gluconate given. Vitamin D. Tums -Left upper neck mass. 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 Need to rule out underlying malignancy. IV ceftriaxone. Warm compress ultrasound-guided needle biopsy done August 07 -CAD with stent 2019 Aspirin. Coreg -Hyperlipidemia Lipitor -Diabetes mellitus type 2 on oral hypoglycemic Follow Accu-Cheks and sliding scale Levemir 16units subcu daily at bedtime. Hold oral hypoglycemic -Full code Add Tums. Continue gentle hydration. Plan for discharge tomorrow.
--- NOTE | 2023-08-09 18:29 | P.PN ---
Subjective Progress Note Date: 08/09/23 Principal diagnosis: Hydronephrosis, renal failure The patient denies flank and abdominal pain. The Montalvo catheter continues to drain clear yellow urine. Objective - Vital Signs Vital signs: Vital Signs Temp 99.0 F 08/09/23 15:40 Pulse 83 08/09/23 15:40 Resp 18 08/09/23 15:40 BP 154/62 08/09/23 15:40 Pulse Ox 95 08/09/23 15:40 FiO2 Intake & Output 08/08/23 08/09/23 08/09/23 18:59 06:59 18:59 Intake Total 472 354 Output Total 625 850 700 Balance -153 -850 -346 Weight 88.5 kg Intake: Oral 472 354 Output: Urine 625 850 700 Other: Voiding Method Indwelling Catheter Indwelling Catheter Indwelling Catheter # Bowel Movements 1 - Constitutional General appearance: Present: average body habitus, no acute distress - Psychiatric Psychiatric: Present: A&O x's 3 - Labs CBC & Chem 7: 08/08/23 08:03 08/09/23 07:06 Labs: Abnormal Lab Results - Last 24 Hours (Table) 08/08/23 08/09/23 08/09/23 Range/Units 20:48 05:55 07:06 Sodium 132 L (137-145) mmol/L BUN 30 H (9-20) mg/dL Creatinine 1.54 H (0.66-1.25) mg/dL Glucose 148 H (74-99) mg/dL POC Glucose (mg/dL) 276 H 159 H (70-110) mg/dL Calcium 6.7 L (8.4-10.2) mg/dL 08/09/23 08/09/23 Range/Units 11:50 16:35 Sodium (137-145) mmol/L BUN (9-20) mg/dL Creatinine (0.66-1.25) mg/dL Glucose (74-99) mg/dL POC Glucose (mg/dL) 259 H 275 H (70-110) mg/dL Calcium (8.4-10.2) mg/dL Assessment and Plan Assessment: The patient's renal function continues to improve. His hydronephrosis is mild. He empties his bladder incompletely but was not in urinary retention. (1) Unspecified hydronephrosis Current Visit: Yes Status: Acute Code(s): N13.30 - UNSPECIFIED HYDRONEPHROSIS SNOMED Code(s): 22453792 Plan: - May remove Montalvo catheter were no longer medically needed. - Continue to monitor renal function.
[2023-08-09] MEDS: CALCIUM CARBONATE 500 MG CHEWABLE PO SCH ×2 (18:32→20:09)
[2023-08-09 19:31] LABS: Glucose,Whole Blood 211 mg/dL (70-110)
[2023-08-09] MEDS: INSULIN DETEMIR (LEVEMIR) 100 UNIT/ML SYR SQ SCH (20:09)
[2023-08-10 05:39] LABS: Glucose,Whole Blood 210 mg/dL (70-110)
[2023-08-10] MEDS: INSULIN ASPART (NovoLOG) 100 UNIT/ML VIAL SQ SCH ×2 (06:51→11:37)
[2023-08-10 07:42] LABS: African American GFR (CKD) 69 (>60 ml/min/1.73 sqM); Anion Gap 8 mmol/L; Blood Urea Nitrogen 24 mg/dL (9-20); Calcium 7.4 mg/dL (8.4-10.2); Carbon Dioxide 22 mmol/L (22-30); Chloride 104 mmol/L (98-107); Glucose 190 mg/dL (74-99); Non-African American GFR(CKD) 59 (>60 ml/min/1.73 sqM); Potassium 4.5 mmol/L (3.5-5.1); Sodium 134 mmol/L (137-145)
[2023-08-10] MEDS: METOPROLOL TARTRATE 25 MG TAB PO SCH (08:37)
[2023-08-10] MEDS: MAGNESIUM OXIDE 400 MG TAB PO SCH (08:37)
[2023-08-10] MEDS: amLODIPine 10 MG TAB PO SCH (08:37)
[2023-08-10] MEDS: APIXABAN 5 MG TAB PO SCH (08:37)
[2023-08-10] MEDS: CALCIUM CARBONATE 500 MG CHEWABLE PO SCH (08:37)
[2023-08-10] MEDS: ATORVASTATIN 80 MG TAB PO SCH (08:37)
[2023-08-10] MEDS: hydrALAZINE HCL 50 MG TAB PO SCH (08:37)
[2023-08-10] MEDS: LIRAGLUTIDE 0.6 MG/0.1 ML SQ SCH (08:38)
[2023-08-10 09:00] LABS: C Reactive Protein 14.7 mg/dL (<1.0)
--- NOTE | 2023-08-10 10:56 | P.PN ---
Subjective atient is seen in follow-up for acute kidney injury. Renal function improving. Has Montalvo catheter. Nonoliguric. Oral intake fair. Underwent lymph node biopsy 08/07/2023. No active complaints at this time. Serum creatinine at 1.2 mg/dL. Objective - Vital Signs Vital signs: Vital Signs Temp 98.1 F 08/10/23 07:01 Pulse 90 08/10/23 07:01 Resp 17 08/10/23 07:01 BP 182/79 08/10/23 07:01 Pulse Ox 95 08/10/23 07:01 FiO2 Intake & Output 08/09/23 08/10/23 08/10/23 18:59 06:59 18:59 Intake Total 354 0 Output Total 700 1650 100 Balance -346 -1650 -100 Intake: Oral 354 0 Output: Urine 700 1650 100 Uretheral (Montalvo) 350 Other: Voiding Method Indwelling Catheter Indwelling Catheter - Exam Patient is awake, comfortable, no acute distress Examination of the heart S1 and S2 Examination of the lungs bilateral breath sounds are heard Abdomen is soft nontender Examination of lower extremities shows no significant edema - Labs CBC & Chem 7: 08/08/23 08:03 08/10/23 06:43 Labs: Abnormal Lab Results - Last 24 Hours (Table) 08/09/23 08/09/23 08/09/23 Range/Units 11:50 16:35 19:30 Sodium (137-145) mmol/L BUN (9-20) mg/dL Glucose (74-99) mg/dL POC Glucose (mg/dL) 259 H 275 H 211 H (70-110) mg/dL Calcium (8.4-10.2) mg/dL C-Reactive Protein (<1.0) mg/dL 08/10/23 08/10/23 Range/Units 05:33 06:43 Sodium 134 L (137-145) mmol/L BUN 24 H (9-20) mg/dL Glucose 190 H (74-99) mg/dL POC Glucose (mg/dL) 210 H (70-110) mg/dL Calcium 7.4 L (8.4-10.2) mg/dL C-Reactive Protein 14.7 H (<1.0) mg/dL Microbiology - Last 24 Hours (Table) 08/04/23 15:15 Blood Culture - Final Blood 08/04/23 15:30 Blood Culture - Final Blood Assessment and Plan Assessment: 1. Acute kidney injury secondary to ATN secondary to hypotension and further worsened with the use of Herbert 2 inhibitors and HEDY inhibitor. Also component of obstructive uropathy. Creatinine peaked at 7.44 this admission and is 1.2 today. Creatinine as low as 1.13 dated 11/07/2022. 2. Hyperkalemia secondary to acute kidney injury, metabolic acidosis, spironolactone and lisinopril. Also component of NSAIDs. Improved. 3. Metabolic acidosis secondary to acute kidney injury and metformin. Improved. 4. Right-sided hydronephrosis. Has Montalvo catheter. Urology following. 5. A. fib with RVR s/p Cardizem drip. On Lopressor. 6. Diabetes mellitus. 7. History of coronary disease with cardiac stenting. 8. Left neck mass s/p biopsy. 9. Hypocalcemia secondary to acute kidney injury. Replaced. PTH 147 and vitamin D level low at 6.4. On Drisdol. 10. Hypomagnesemia from poor intake. Replaced. Better. 11. Benign hypertension. Plan: Continue to encourage increase oral intake Monitor labs periodically
[2023-08-10 11:17] LABS: Glucose,Whole Blood 196 mg/dL (70-110)
[2023-08-10] MEDS ORDERED: METOPROLOL TARTRATE 25 MG TAB PO STA (11:24)
[2023-08-10] MEDS ORDERED: IPRATROPIUM-ALBUTEROL 3 ML NEB INHALATION SCH (12:00)
[2023-08-10] MEDS ORDERED: hydrALAZINE HCL 50 MG TAB PO SCH (13:00)
[2023-08-10 13:46] VITALS: BP 179/83; PULSE 93; RESP 18; TEMP 98.5
--- NOTE | 2023-08-10 16:43 | P.DS ---
Providers Date of admission: 08/04/23 20:04 Expected date of discharge: 08/10/23 Attending physician: Lane Vergara Consults: 08/04/23 20:04 Consult Physician Routine Consulting Provider: Amarilis Banda Consult Reason/Comments: Left neck mass history of bladder cancer Do you want consulting provider notified?: Yes, Notify in am Consult Physician Stat Consulting Provider: Milena Bryant Consult Reason/Comments: ICU management Do you want consulting provider notified?: Already Contacted Consult Physician Stat Consulting Provider: Gabbi Dow Consult Reason/Comments: Acute kidney injury, hyperkalemia Do you want consulting provider notified?: Already Contacted 08/05/23 09:59 Consult Physician Routine Consulting Provider: Jose Rafael Mancilla Consult Reason/Comments: Left neck mass Do you want consulting provider notified?: Yes 08/05/23 10:55 Consult Physician Routine Consulting Provider: Oh Macias Consult Reason/Comments: hydronephrosis Do you want consulting provider notified?: Yes Primary care physician: Sukhjinder Rubio [place] [facility] Course: Chief Complaint: Neck lump pain Pleasant 72-year-old patient who follows with Dr. Johnny Rubio./Mid-level provider-Kareen. Chronic stable medical conditions include CAD with stent in 2018, diabetes, hypertension, hyperlipidemia, osteoporosis, bladder cancer with treatment in remission and cystoscopy 2020, patient had right hip surgery in October of this year now does use a walker when he goes outside. Otherwise a cane. Patient came to the ER as patient was having significant pain in the left neck mass. No masses. Diagnosed in June. Was given a course of antibiotic to the primary care's office. Not much response. And patient underwent ultrasound. Subsequently a CAT scan was ordered that is pending to be done. Patient progressively in the last few days has started having increasing pain in the left neck mass. Has been having nausea vomiting for the last 2 days. No obvious fever. In the ER found to be in renal failure. Patient is taking Tylenol arthritis at home. Patient is accompanied by his . Denies any loss of weight. No change in swallowing or trouble eating. August 06: Pain better controlled in the left neck lump. Ultrasound guided biopsy per ENT. Nausea per present. Decreased oral intake. Patient went into A. fib with rapid ventricular rate. Cardiology consulted. Lopressor was added. IV heparin. Discussed with patient and . Ensure added. August 07: Patient seen by me this morning. Was pending biopsy. Nothing by meg nugent. Late underwent biopsy. Patient remains in sinus rhythm. IV heparin was held. Low ionized calcium. Calcium gluconate ordered. August 08: Feeling better today. Relevant this patient sit up in a chair. At baseline uses a walker. Biopsy was done yesterday. Spoke to the nurse to get the patient up in a chair. Creatinine coming down. August 09: Creatinine continues to come down. Eating well. Up in a chair. Discussed with patient. Biopsy results [id number] with oncology outpatient.. Hydralazine 50 mg 3 times a day added for blood pressure August 10: Stable. Tolerating diet. Blood pressure medications further adjusted to hydralazine increased to 50 mg 4 times a day. Lopressor increased. Patient follow-up with oncology outpatient follow biopsy results. Discussed. Social history: Used to work in a [employer]. . 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 Patient Smoked for 50 Years Stopped in 2018. Also Is Drinking Excessive Alcohol up to 2019. Physical examination: VITAL SIGNS: 98.5, 93, 18, 165/80, 96% room air GENERAL: Reclining in bed, comfortable EYES: Pupils equal. Conjunctiva normal. HEENT: External appearance of nose and ears normal, oral cavity grossly normal. NECK: JVD not raised; masses not palpable. Hard mass of the left upper neck going to the mandible. Hard. Some tenderness. HEART: Heart sounds irregular; no edema. LUNGS: Respiratory rate normal; decreased breath sounds. ABDOMEN: Soft, nontender, liver spleen not palpable, no masses palpable. PSYCH: Alert and oriented x3; mood and affect anxious MUSCULOSKELETAL:No Clubbing/cyanosis;muscles-grossly intact. OA INVESTIGATIONS, reviewed in the clinical context: August 10: Sodium 134 potassium 4.5 creatinine 1.23 procalcitonin 0.21 August 07: White count 12 hemoglobin 10.3 potassium 4.1 BUN 75 creatinine 2.78 potassium 6.4. Ionized calcium 3.7. CT soft tissue neck without contrast: Enlargement of the left parotid gland with surrounding the inflammatory attenuation as well as skeletal thinking. Also inflammatory thickening of the left sternocleidomastoid musculature. Surrounding reactive adenopathy. No obstructing Loss. CT chest abdomen pelvis: Small bowel guarded to 3 cm. Mild right-sided hydronephrosis. Gallstones August 04: White count 15.6 hemoglobin 14.5 sodium 137 potassium 7.8 BUN 106 creatinine 6.97 bicarb 8 Troponin I 0.045 UA trace protein Influenza type A, B, RSV, COVID-19: Not detected Chest x-ray film personally reviewed by me-hyperinflation. Some pulmonary artery prominence EKG tracing personally reviewed by me-possible ectopic atrial rhythm. Ultrasound kidney: Mild right-sided hydronephrosis. Previous labs: 11/07/2022: Creatinine 1.13 Ultrasound soft tissue left neck: [07/24/2023] numerous thickened and borderline enlarged lymph nodes along the left side of neck. Assessment and plan: -Acute kidney injury, likely ATN.: Improving Patient been having nausea vomiting at home and not drinking. Patient also was on metformin, Zestril, hydrochlorothiazide, Aldactone, Bactrim DS. And Celebrex.-All of the above are being discontinued Sodium bicarbonate drip-discontinued. Nephrology following. Kidney ultrasound noted Paroxysmal atrial fibrillation with a rapid ventricular rate, currently sinus rhythm IV Cardizem drip-discontinued. IV heparin held. Lopressor 50 mg twice a day Eliquis -Essential hypertension Lopressor 50 mg twice a day Hydralazine 50 mg 4 times a day I -IV heparin monitoring-discontinued -Severe hyperkalemia from renal failure: Corrected Aldactone, Zestril, Bactrim all discontinued Bicarbonate drip. IV fluids. Renal diet. Insulin. Kayexalate. -Severe metabolic acidosis from renal failure: Better IV bicarbonate drip.-Discontinued -Hypocalcemia IV calcium gluconate given. Os-Car vitamin D -Left upper neck mass. 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 Need to rule out underlying malignancy. IV ceftriaxone. Warm compress ultrasound-guided needle biopsy done August 07 Follow-up with Dr. Cardoza oncology outpatient Keflex 500 mg every 6 -5 days -CAD with stent 2019 Aspirin. Coreg -Hyperlipidemia Lipitor -Diabetes mellitus type 2 on oral hypoglycemic Follow Accu-Cheks and sliding scale Levemir 16units subcu daily at bedtime. Victoza. Metformin. -Full code Disposition: Home Plan - Discharge Summary New Discharge Prescriptions: New hydrALAZINE HCL [Apresoline] 50 mg PO QID #120 tab Apixaban [Eliquis] 5 mg PO BID #60 tab amLODIPine [Norvasc] 10 mg PO DAILY #30 tab Calcium Carb-Vit D 500Mg-5Mcg [Oscal 500+D 5 Mcg (200 Iu)] 1 each PO DAILY #30 tablet Cephalexin [Keflex] 500 mg PO Q6HR #20 cap Magnesium Oxide [Mag-Ox] 400 mg PO DAILY #30 tab Metoprolol Tartrate [Lopressor] 50 mg PO BID #60 tab Albuterol Sulfate [Albuterol Sulfate Hfa] 1 puff PO Q4-6H #8.5 gm Continue Aspirin 81 mg PO DAILY #90 chewable Atorvastatin [Lipitor] 80 mg PO DAILY metFORMIN HCL ER [Glucophage XR] 500 mg PO BID Liraglutide [Victoza 3-Sam] 1.8 mg SQ DAILY Discontinued Sulfamethox-Tmp 800-160Mg [Bactrim DS 800-160 mg] 1 tab PO Q12HR hydroCHLOROthiazide 12.5 mg PO DAILY Spironolactone [Aldactone] 25 mg PO DAILY lisinopriL [Zestril] 30 mg PO DAILY carvediloL [Coreg] 12.5 mg PO DAILY Celecoxib [CeleBREX] 200 mg PO DAILY Discharge Medication List Aspirin 81 mg PO DAILY #90 chewable 07/25/19 [Rx] Atorvastatin [Lipitor] 80 mg PO DAILY 05/13/20 [History] Liraglutide [Victoza 3-Sam] 1.8 mg SQ DAILY 08/04/23 [History] metFORMIN HCL ER [Glucophage XR] 500 mg PO BID 08/04/23 [History] Albuterol Sulfate [Albuterol Sulfate Hfa] 1 puff PO Q4-6H #8.5 gm 08/10/23 [Rx] Apixaban [Eliquis] 5 mg PO BID #60 tab 08/10/23 [Rx] Calcium Carb-Vit D 500Mg-5Mcg [Oscal 500+D 5 Mcg (200 Iu)] 1 each PO DAILY #30 tablet 08/10/23 [Rx] Cephalexin [Keflex] 500 mg PO Q6HR #20 cap 08/10/23 [Rx] Magnesium Oxide [Mag-Ox] 400 mg PO DAILY #30 tab 08/10/23 [Rx] Metoprolol Tartrate [Lopressor] 50 mg PO BID #60 tab 08/10/23 [Rx] amLODIPine [Norvasc] 10 mg PO DAILY #30 tab 08/10/23 [Rx] hydrALAZINE HCL [Apresoline] 50 mg PO QID #120 tab 08/10/23 [Rx] Follow up Appointment(s)/Referral(s): Gabbi Dow MD [STAFF PHYSICIAN] - 08/20/23 9:00 am Sukhjinder Rubio MD [Primary Care Provider] - 08/13/23 1:00 pm Raf Banda MD [STAFF PHYSICIAN] - 08/21/23 3:45 pm Patient Instructions/Handouts: Dehydration (DC), Acute Kidney Injury (DC) Discharge Disposition: HOME SELF-CARE
[2023-08-10] MEDS ORDERED: METOPROLOL TARTRATE 50 MG TAB PO SCH (21:00)
--- NOTE | 2023-08-13 14:42 | CDI ---
Documentation Clarification Form Date: 08/13/2023 02:29:13 PM From: Rocio Guevara Phone: Admit Date: 08/04/2023 08:04:00 PM Patient Name: Dru Valverde Visit Number: [id number] Discharge Date: 08/10/2023 03:08:00 PM ATTENTION: The Clinical Documentation Specialists (CDI) and [facility] Coding Staff appreciate your assistance in clarifying documentation. Please respond to the clarification below the line at the bottom and electronically sign. The CDI & [facility] Coding staff will review the response and follow-up if needed. Please note: Queries are made part of the Legal Health Record. If you have any questions, please contact the author of this message via ITS. Dr. Lane Vergara The final diagnosis of the pathology report states Metastaticnon-small cell carcinoma. Coding guidelines do not allow coding professionals to code based on pathology results; therefore, clarification is requested. History/risk factors: 72yo M, ATN, hypotension, obstructive uropathy, hyperkalemia,metabolic acidosis, metabolic acidosis, Rt hydronephrosis, A. 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
--- NOTE | 2023-08-13 23:02 | PN ---
PROGRESS NOTE I had ordered an ultrasound-guided FNA of a left neck mass. This returns as metastatic [id number] carcinoma consistent with metastatic high-grade urothelial carcinoma. The primary service was aware of this and will follow up on this. The patient had had positive diagnosis of parotitis with inflammation, but clearly, this was a malignant issue that needs to be followed up with the patient's urologist and oncologist, and it appears that the patient did have this followup in place. MMODL / IJN: [id number] /
== END 2023-08-10 15:08 | disposition home or self-care (01) | DRG 988 ==
LOC: EC 14:41 → 2SICU 20:04 → 3SCARD 08-05 14:11 → 4SSUR 08-09 22:51
PROVIDERS: ADMIT Hospitalist; ATTEND Hospitalist
PROC: 07B23ZX Excision of Left Neck Lymphatic, Percutaneous Approach, Diagnostic (ICD-10-PCS; principal; 2023-08-07)
DX: N13.30 Unspecified hydronephrosis (principal); C79.89 Secondary malignant neoplasm of other specified sites; E87.21 Acute metabolic acidosis; N17.0 Acute kidney failure with tubular necrosis; I95.9 Hypotension, unspecified; E11.65 Type 2 diabetes mellitus with hyperglycemia; I48.0 Paroxysmal atrial fibrillation; I10 Essential (primary) hypertension; F10.11 Alcohol abuse, in remission; I65.29 Occlusion and stenosis of unspecified carotid artery; I34.0 Nonrheumatic mitral (valve) insufficiency; G89.29 Other chronic pain; T47.1X5A Adverse effect of other antacids and anti-gastric-secretion drugs, initial encounter; G14 Postpolio syndrome; I25.10 Atherosclerotic heart disease of native coronary artery without angina pectoris; E87.5 Hyperkalemia; E83.51 Hypocalcemia; E86.0 Dehydration; E78.5 Hyperlipidemia, unspecified; M19.90 Unspecified osteoarthritis, unspecified site; M54.50 Low back pain, unspecified; Z91.190 Patient's noncompliance with other medical treatment and regimen due to financial hardship; Z20.822 Contact with and (suspected) exposure to COVID-19; T38.3X5A Adverse effect of insulin and oral hypoglycemic [antidiabetic] drugs, initial encounter; T39.395A Adverse effect of other nonsteroidal anti-inflammatory drugs [NSAID], initial encounter; M21.70 Unequal limb length (acquired), unspecified site; K52.9 Noninfective gastroenteritis and colitis, unspecified; N14.0 Analgesic nephropathy; E83.42 Hypomagnesemia; R63.39 Other feeding difficulties; K80.20 Calculus of gallbladder without cholecystitis without obstruction; M81.0 Age-related osteoporosis without current pathological fracture; Z96.641 Presence of right artificial hip joint; Z95.5 Presence of coronary angioplasty implant and graft; I25.2 Old myocardial infarction; Z85.51 Personal history of malignant neoplasm of bladder; Z87.891 Personal history of nicotine dependence; Z79.899 Other long term (current) drug therapy; Z79.84 Long term (current) use of oral hypoglycemic drugs; Z79.85 Long-term (current) use of injectable non-insulin antidiabetic drugs; Z79.82 Long term (current) use of aspirin; Z79.1 Long term (current) use of non-steroidal anti-inflammatories (NSAID); Z91.81 History of falling; Z74.01 Bed confinement status; Z59.7 Insufficient social insurance and welfare support; Z92.3 Personal history of irradiation; Z92.21 Personal history of antineoplastic chemotherapy
CPT/HCPCS: 36415; 38505; 70490; 71046; 71250; 74018; 74176; 76536; 76770; 76942; 80048; 80053; 81001; 82306; 82330; 82550; 83036; 83605; 83690; 83735; 83970; 84100; 84132; 84145; 84439; 84443; 84484; 85025; 85610; 85730; 86140; 87040; 87636; 88305; 88341; 88342; 93005; 93306; 94640; 96361; 96374; 96375; 99291

== ENCOUNTER 2023-08-17 09:26 | Inpatient (IN) | payer MEDICARE, OTHER ==
--- NOTE | 2023-08-17 10:07 | ED ---
Extremity Problem HPI - General Chief complaint: Extremity Problem,Nontraumatic Stated complaint: swollen legs and arm Time Seen by Provider: 08/17/23 09:35 Source: patient, RN notes reviewed Mode of arrival: ambulatory Limitations: no limitations - History of Present Illness Initial comments: This is a 73-year-old male who presents to the emergency department for swelling to the bilateral lower extremities and the left upper extremity. Patient was di scharged from this facility on 08/10 for hyperkalemia, an acute kidney injury, and metabolic acidosis. During that time, he did also have a mass evaluated on the left side of his neck and underwent a biopsy of this. This was initially thought to be related to parotitis and he was started on antibiotics. However, biopsy of this area demonstrated that it was malignancy and he was set up with hematology oncology. He was supposed to have a PET scan today, but came to the emergency department instead for evaluation of the swelling. States that the left arm was swollen while he was in the hospital, and it was thought that it may be related to the IVs in his arm. States that the arm is painful when he tries to lift it up. However, the swelling in the bilateral lower extremities only began a few days ago. Denies any pain associated with this. Additionally, patient reports difficulty with urination, in that he feels like he is only able to go small amounts at a time. Denies any pain in the abdomen or pelvic region. He does have a history of bladder cancer. States that he has ongoing shortness of breath, and does endorse some orthopnea. Denies any chest pain. MD Complaint: extremity pain, extremity swelling Location: left, upper extremity, bilateral lower extremity - Related Data Home Medications Medication Instructions Recorded Confirmed Atorvastatin [Lipitor] 80 mg PO DAILY 05/13/20 08/17/23 Liraglutide [Victoza 3-Sam] 1.8 mg SQ DAILY 08/04/23 08/17/23 metFORMIN HCL ER [Glucophage XR] 500 mg PO BID 08/04/23 08/17/23 Albuterol Sulfate [Albuterol 1 puff INHALATION RT-Q4H PRN 08/17/23 08/17/23 Sulfate Hfa] Calcium Carb-Vit D 500Mg-5Mcg 1 tab PO DAILY 08/17/23 08/17/23 [Oscal 500+D 5 Mcg (200 Iu)] HYDROcodone/APAP 5-325MG [[place] 1 tab PO Q6H PRN 08/17/23 08/17/23 5-325] Levofloxacin [Levaquin] See Taper PO DAILY 08/17/23 08/17/23 metroNIDAZOLE [Flagyl] 500 mg PO TID 08/17/23 08/17/23 Previous Rx's Medication Instructions Recorded Aspirin 81 mg PO DAILY #90 chewable 07/25/19 Apixaban [Eliquis] 5 mg PO BID #60 tab 08/10/23 Magnesium Oxide [Mag-Ox] 400 mg PO DAILY #30 tab 08/10/23 Metoprolol Tartrate [Lopressor] 50 mg PO BID #60 tab 08/10/23 amLODIPine [Norvasc] 10 mg PO DAILY #30 tab 08/10/23 hydrALAZINE HCL [Apresoline] 50 mg PO QID #120 tab 08/10/23 Allergies Allergy/AdvReac Type Severity Reaction Status Date / Time No Known Allergies Allergy Verified 08/17/23 12:11 Review of Systems ROS Statement: Those systems with pertinent positive or pertinent negative responses have been documented in the HPI. ROS Other: All systems not noted in ROS Statement are negative. Past Medical History Past Medical History: Coronary Artery Disease (CAD), Cancer, Diabetes Mellitus, Hyperlipidemia, Hypertension, Myocardial Infarction ([place]), Osteoarthritis (OA) Additional Past Medical History / Comment(s): Bladder cancer stage with treatment, in remission since 2020. IDDM type II, post polio syndrome,leg length discrepancy, bronchitis, chronic low back pain. Last Myocardial Infarction Date:: 07/23/19 History of Any Multi-Drug Resistant Organisms: None Reported Past Surgical History: Heart Catheterization With Stent, Orthopedic Surgery Additional Past Surgical History / Comment(s): Cystoscopy, TURBT x2, closure of patent urachus bladder tumor as , R leg surgery d/t polio-lengthening, cardiac stents 2018; Right hip surgery 11/03/2022 Past Anesthesia/Blood Transfusion Reactions: No Reported Reaction Date of Last Stent Placement:: 07/23/19 Past Psychological History: No Psychological Hx Reported Smoking Status: Former smoker Past Alcohol Use History: None Reported Past Drug Use History: None Reported - Past Family History Father History Unknown: Yes Mother Additional Family Medical History / Comment(s): Mother of in a MVA when pt was 15 yrs old. Brother(s) Additional Family Medical History / Comment(s): Pt has one brother who of a bowel problem and another brother that of a ruptured aneurysm. General Exam Limitations: no limitations General appearance: alert, in no apparent distress Head exam: Present: atraumatic, normocephalic, normal inspection Respiratory exam: Present: normal lung sounds bilaterally. Absent: respiratory distress, wheezes, rales, rhonchi, stridor Cardiovascular Exam: Present: regular rate, normal rhythm, normal heart sounds. Absent: systolic murmur, diastolic murmur, rubs, gallop, clicks GI/Abdominal exam: Present: soft, normal bowel sounds. Absent: distended, tenderness, guarding, rebound, rigid Extremities exam: Present: other (3-4+ pitting edema to the bilateral lower extremities. No erythema or tenderness. 2-3+ pitting edema to the left upper extremity extending down into the hand. Minor overlying erythema and tenderness.) Neurological exam: Present: alert, oriented X3, CN II-XII intact Psychiatric exam: Present: normal affect, normal mood Course Vital Signs 08/17/23 08/17/23 09:34 14:33 Temperature 98.4 F Pulse Rate 70 88 Respiratory 20 18 Rate Blood Pressure 121/50 149/84 O2 Sat by Pulse 96 98 Oximetry Medical Decision Making - Medical Decision Making This is a 73-year-old male who presents to the emergency department for swelling of the bilateral lower extremities and left upper extremity. Was pt. sent in by a medical professional or institution? @ -No Did you speak to anyone other than the patient for history? @ -No Did you review nursing and triage notes? @ -Yes, and I agree, it is accurate with regards to the patient's symptoms. Were old charts reviewed? @ -Yes, discharge summary from 08/10/23. This advised that during his hospital stay he did go into atrial fibrillation for the first time. He was then started on Eliquis. He was also evaluated by nephrology and the EDITH continued to improve. Amlodipine was also increased to 10mg. 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 Echocardiogram from 08/08/23 demonstrated preserved LV systolic function and mild inferior septal hypokinesis. Differential Diagnosis? @ -Differential Extremity Swelling: CHF, renal failure, dependent edema, cirrhosis, DVT, this is not meant to be an all-inclusive list. EKG interpreted by me (3pts min.)? @ -EKG interpreted by me demonstrating the following: Sinus rhythm. Ventricular rate 67 beats per minute, CT interval 200 ms, QRS duration 90 ms, QTC 410 ms. X-rays interpreted by me (1pt min.)? @ -Chest x-ray obtained. My interpretation identifies cardiomegaly and pulmonary vascular congestion. CT interpreted by me (1pt min.)? @ -Not obtained U/S interpreted by me (1pt. min.)? @ -Not interpreted by me What testing was considered but not performed? (CT, X-rays, U/S, labs)? Why? @ -None What meds were considered but not given? Why? @ -None Did you discuss the management of the patient with other professionals? @ -Yes, Dr. Chou, who accepts the patient for admission. Did you reconcile home meds? @ -Yes Was smoking cessation discussed for >3mins.? @ -No Was critical care preformed (if so, how long)? @ -No Were there social determinants of health that impacted care today? How? ( Homelessness, low income, unemployed, alcoholism, drug addiction, transportation, low edu. Level, literacy, decrease access to med. care, halfway, rehab)? @ -No Was there de-escalation of care discussed even if they declined? (Discuss DNR or withdrawal of care, Hospice)? @ -No What co-morbidities impacted this encounter? (DM, HTN, Smoking, COPD, CAD, Cancer, CVA, Hep., AIDS, mental health diagnosis, sleep apnea, morbid obesity)? @ -CAD, DM, HLD, HTN Was patient admitted / discharged? @ -Admitted. Lab work obtained revealing leukocytosis with a WBC of 11.7. This is improved when compared with 08/08 when it was 18.2. Renal function is only mildly decreased when compared with 7 days ago. He does have an increase in alkaline phosphatase and ALT. Hypomagnesemia is evident with a magnesium of 1.2. This was replaced with 400 mg of magnesium oxide. BNP elevated at 5360. Most recent value for comparison is from 2019 when it was 3110. He is not on a diuretic. Echocardiogram from 08/08/23 demonstrated preserved LV systolic function and mild inferior septal hypokinesis. We did obtain a bladder scan due to the patient's urinary concerns. This revealed 91 mL. Duplex ultrasound of the bilateral lower extremities and left upper extremity obtained. This revealed a nonocclusive venous thrombosis in the left internal jugular vein and a superficial thrombus in the left cephalic vein. Duplex ultrasound of the bilateral lower extremities did not identify any acute process. Chest x-ray does demonstrate cardiomegaly with pulmonary vascular congestion. In light of all of these findings, patient was admitted to medicine for congestive heart failure, which may be of new onset, as well as internal jugular venous thrombosis. Consult placed for cardiology and hem/onc. Undiagnosed new problem with uncertain prognosis? @ -None Drug Therapy requiring intensive monitoring for toxicity (Heparin, Nitro, In sulin, Cardizem)? @ -None Were any procedures done? @ -None Diagnosis/symptom? @ -New onset CHF, internal jugular thrombosis Acute, or Chronic, or Acute on Chronic? @ -Acute Uncomplicated (without systemic symptoms) or Complicated (systemic symptoms)? @ -Complicated Side effects of treatment? @ -None Exacerbation, Progression, or Severe Exacerbation] @ -Not applicable Poses a threat to life or bodily function? @ -Yes This case was discussed in detail with the attending ED physician, Dr. Hearn. Presentation, findings, and treatment plan discussed in detail as well. - Lab Data Result diagrams: 08/17/23 10:13 08/17/23 10:13 Lab Results 08/17/23 08/17/23 08/17/23 Range/Units 10:13 10:13 10:13 WBC 11.7 H (3.8-10.6) k/uL RBC 3.18 L (4.30-5.90) m/uL Hgb 11.1 L (13.0-17.5) gm/dL Hct 33.6 L (39.0-53.0) % MCV 105.5 H (80.0-100.0) fL MCH 35.0 (25.0-35.0) pg MCHC 33.2 (31.0-37.0) g/dL RDW 12.9 (11.5-15.5) % Plt Count 260 (150-450) k/uL MPV 10.1 Neutrophils % 87 % Lymphocytes % 6 % Monocytes % 4 % Eosinophils % 2 % Basophils % 0 % Neutrophils # 10.2 H (1.3-7.7) k/uL Lymphocytes # 0.8 L (1.0-4.8) k/uL Monocytes # 0.5 (0-1.0) k/uL Eosinophils # 0.2 (0-0.7) k/uL Basophils # 0.0 (0-0.2) k/uL Macrocytosis Slight PT 11.5 (10.0-12.5) sec INR 1.1 (<1.2) APTT 27.5 (22.0-30.0) sec Sodium 136 L (137-145) mmol/L Potassium 5.4 H (3.5-5.1) mmol/L Chloride 108 H (98-107) mmol/L Carbon Dioxide 17 L (22-30) mmol/L Anion Gap 11 mmol/L BUN 23 H (9-20) mg/dL Creatinine 1.31 H (0.66-1.25) mg/dL Est GFR (CKD-EPI)AfAm 63 (>60 ml/min/1.73 sqM) Est GFR (CKD-EPI)NonAf 55 (>60 ml/min/1.73 sqM) Glucose 178 H (74-99) mg/dL Plasma Lactic Acid Bryan (0.7-2.0) mmol/L Calcium 8.0 L (8.4-10.2) mg/dL Phosphorus (2.5-4.5) mg/dL Magnesium 1.2 L (1.6-2.3) mg/dL Total Bilirubin 0.5 (0.2-1.3) mg/dL AST 39 (17-59) U/L ALT 51 H (4-49) U/L Alkaline Phosphatase 176 H (38-126) U/L NT-Pro-B Natriuret Pep 5360 pg/mL Total Protein 6.0 L (6.3-8.2) g/dL Albumin 3.1 L (3.5-5.0) g/dL TSH 18.400 H (0.465-4.680) mIU/L Free T4 0.65 L (0.78-2.19) ng/dL 08/17/23 08/17/23 Range/Units 10:13 10:13 WBC (3.8-10.6) k/uL RBC (4.30-5.90) m/uL Hgb (13.0-17.5) gm/dL Hct (39.0-53.0) % MCV (80.0-100.0) fL MCH (25.0-35.0) pg MCHC (31.0-37.0) g/dL RDW (11.5-15.5) % Plt Count (150-450) k/uL MPV Neutrophils % % Lymphocytes % % Monocytes % % Eosinophils % % Basophils % % Neutrophils # (1.3-7.7) k/uL Lymphocytes # (1.0-4.8) k/uL Monocytes # (0-1.0) k/uL Eosinophils # (0-0.7) k/uL Basophils # (0-0.2) k/uL Macrocytosis PT (10.0-12.5) sec INR (<1.2) APTT (22.0-30.0) sec Sodium (137-145) mmol/L Potassium (3.5-5.1) mmol/L Chloride (98-107) mmol/L Carbon Dioxide (22-30) mmol/L Anion Gap mmol/L BUN (9-20) mg/dL Creatinine (0.66-1.25) mg/dL Est GFR (CKD-EPI)AfAm (>60 ml/min/1.73 sqM) Est GFR (CKD-EPI)NonAf (>60 ml/min/1.73 sqM) Glucose (74-99) mg/dL Plasma Lactic Acid Bryan 2.0 (0.7-2.0) mmol/L Calcium (8.4-10.2) mg/dL Phosphorus 3.2 (2.5-4.5) mg/dL Magnesium (1.6-2.3) mg/dL Total Bilirubin (0.2-1.3) mg/dL AST (17-59) U/L ALT (4-49) U/L Alkaline Phosphatase (38-126) U/L NT-Pro-B Natriuret Pep pg/mL Total Protein (6.3-8.2) g/dL Albumin (3.5-5.0) g/dL TSH (0.465-4.680) mIU/L Free T4 (0.78-2.19) ng/dL - Radiology Data Radiology results: report reviewed, image reviewed Disposition Clinical Impression: Thrombosis of left internal jugular vein, New onset of congestive heart failure Disposition: ADMITTED IP TO THIS HOSP
[2023-08-17 10:34] LABS: Basophils % (A) 0 %; Eosinophils # (A) 0.2 k/uL (0-0.7); Eosinophils % (A) 2 %; HCT 33.6 % (39.0-53.0); HGB 11.1 gm/dL (13.0-17.5); Lymphocytes # (A) 0.8 k/uL (1.0-4.8); Lymphocytes % (A) 6 %; MCHC 33.2 g/dL (31.0-37.0); MCV 105.5 fL (80.0-100.0); Macrocytosis Slight; Mean Platelet Volume 10.1; Monocytes # (A) 0.5 k/uL (0-1.0); Monocytes % (A) 4 %; Neutrophils # (A) 10.2 k/uL (1.3-7.7); Neutrophils % (A) 87 %; Platelet Count 260 k/uL (150-450); RBC 3.18 m/uL (4.30-5.90); RDW 12.9 % (11.5-15.5); WBC 11.7 k/uL (3.8-10.6)
[2023-08-17 10:47] LABS: ALT 51 U/L (4-49); AST 39 U/L (17-59); African American GFR (CKD) 63 (>60 ml/min/1.73 sqM); Albumin 3.1 g/dL (3.5-5.0); Alkaline Phosphatase 176 U/L (38-126); Anion Gap 11 mmol/L; Blood Urea Nitrogen 23 mg/dL (9-20); Carbon Dioxide 17 mmol/L (22-30); Chloride 108 mmol/L (98-107); Glucose 178 mg/dL (74-99); Magnesium 1.2 mg/dL (1.6-2.3); Non-African American GFR(CKD) 55 (>60 ml/min/1.73 sqM); Potassium 5.4 mmol/L (3.5-5.1); Sodium 136 mmol/L (137-145); Total Bilirubin 0.5 mg/dL (0.2-1.3)
[2023-08-17] MEDS ORDERED: MAGNESIUM OXIDE 400 MG TAB PO STA (10:53)
[2023-08-17 10:55] LABS: NT-Pro-B-Type Natriuretic Pept 5360 pg/mL
[2023-08-17 10:59] LABS: INR 1.1 (<1.2); Partial Thromboplastin Time 27.5 sec (22.0-30.0); Prothrombin Time 11.5 sec (10.0-12.5)
--- NOTE | 2023-08-17 11:59 | US ---
EXAMINATION TYPE: US venous doppler duplex UE LT DATE OF EXAM: 08/17/2023 COMPARISON: NONE CLINICAL INDICATION: Male, 73 years old with history of Swelling and redness; Edema left arm, recent IV's SIDE PERFORMED: left Left Arm: *Extreme technical limitations due to large amount of soft tissue edema and patient's limi faustino mobility. Appears to be non-occluding thrombus within left jugular vein. superficial thrombus lef t cephalic vein IMPRESSION: Nonocclusive. Deep venous thrombus seen within the internal jugular vein Superficial thrombus seen within the left cephalic vein.
--- NOTE | 2023-08-17 12:00 | US ---
EXAMINATION TYPE: US venous doppler duplex LE BI DATE OF EXAM: 08/17/2023 11:43 AM COMPARISON: NONE CLINICAL INDICATION: Male, 73 years old with history of Bilateral LE swelling; Edema bilateral legs SIDE PERFORMED: Bilateral TECHNIQUE: The lower extremity deep venous system is examined utilizing real time linear array sonog xi with graded compression, doppler sonography and color-flow sonography. VESSELS IMAGED: Common Femoral Vein Deep Femoral Vein Greater Saphenous Vein * Femoral Vein Popliteal Vein Small Saphenous Vein * Proximal Calf Veins (* superficial vessels) Right Leg: No evidence of DVT as visualized. lymph node right groin = 1.8 x 1.0 x 1.4cm Left Leg: No evidence of DVT as visualized IMPRESSION: No evidence of deep venous thrombosis.
[2023-08-17 12:05] LABS: T4, Free (Free Thyroxine) 0.65 ng/dL (0.78-2.19)
--- NOTE | 2023-08-17 12:09 | XR ---
EXAMINATION TYPE: XR chest 2V DATE OF EXAM: 08/17/2023 12:01 PM COMPARISON: Chest radiographs from 08/04/2023 TECHNIQUE: XR chest 2V Frontal and lateral views of the chest. CLINICAL INDICATION:Male, 73 years old with history of TOR, elevated BNP; FINDINGS: Lungs/Pleura: Trace right pleural effusion. No focal consolidation. Linear scarring within the left m idlung. Pulmonary vascularity: Mild pulmonary vascular congestion. Heart/mediastinum: Cardiomediastinal silhouette is enlarged and stable. The aorta appears tortuous, a finding usually associated with either atherosclerosis or systemic hypertension. Musculoskeletal: No acute osseous pathology. IMPRESSION: Cardiomegaly with pulmonary vascular congestion and trace right pleural effusion. Findings suggestive of CHF exacerbation.
[2023-08-17] MEDS ORDERED: FUROSEMIDE 10 MG/ML 4 ML VIAL IV STA (12:46)
[2023-08-17] MEDS ORDERED: MORPHINE SULFATE 4 MG/ML SYRINGE IV PRN (13:08)
[2023-08-17] MEDS ORDERED: HYDROcodone/APAP 5-325MG 1 EACH TAB PO PRN (13:08)
[2023-08-17] MEDS ORDERED: NALOXONE 0.4 MG/ML 1 ML VIAL IV PRN (13:08)
[2023-08-17] MEDS ORDERED: ACETAMINOPHEN TAB 325 MG TAB PO PRN (13:08)
[2023-08-17] MEDS ORDERED: ALBUTEROL NEBULIZED 2.5 MG/3 ML INHALATION PRN (13:12)
--- NOTE | 2023-08-17 14:17 | P.HPIM ---
History of Present Illness Pleasant 72-year-old patient who follows with Dr. Johnny Rubio./Mid-level provider-Kareen. Chronic stable medical conditions include CAD with stent in 2018, diabetes, hypertension, hyperlipidemia, osteoporosis, bladder cancer with treatment in remission and cystoscopy 2020, patient had right hip surgery in October of this year now does use a walker when he goes outside. Otherwise a cane. Patient was recently discharged from the hospital 08/04-08/14 left sided neck mass concerning for malignancy Presents today because of increasing swelling of arms and legs. Also patient complaining of from little shortness of breath occasional coughing but no chest pain He says he cannot go for his urine but he denies any GI problems No headache dizziness weakness numbness. he denies smoking, Alcohol or illicit tracts, He was not discharged on Lasix Vitals stable Labs are showing mild leukocytosis of 11.7, last time he was discharged his WBCs were 18.2. Hemoglobin 11.1, rest of CBC, INR is unremarkable. Creatinine 1.3 which is at baseline, potassium 5.4, magnesium 1.2. TSH is high at 18 and free T4 is low at 0.65 EKG showing normal sinus rhythm at [address]-T changes. Mild ST depression on the sixth Chest x-ray: Cardiomegaly with pulmonary vascular congestion and right pleural effusion suggestive of CHF. Venous Doppler: Superficial thrombus seen within the left cephalic vein. Nonocclusive deep venous thrombosis seen in the internal jugular vein Review of Systems Review of systems CONSTITUTIONAL: No fever, no malaise, no fatigue. HEENT: No recent visual problems or hearing problems. Denied any sore throat. CARDIOVASCULAR: No orthopnea, PND, no palpitations, no syncope. PULMONARY: No chest wall tendernessTINAL: No diarrhea, no nausea, no vomiting, no abdominal pain. Normoactive bowel sounds. NEUROLOGICAL: No headaches, no weakness, no numbness. HEMATOLOGICAL: Denies any bleeding or petechiae. GENITOURINARY: Denies any burning micturition, frequency, or urgency. MUSCULOSKELETAL/RHEUMATOLOGICAL: Denies any joint pain, swelling, or any muscle pain. ENDOCRINE: Denies any polyuria or polydipsia. Past Medical History Past Medical History: Coronary Artery Disease (CAD), Cancer, Diabetes Mellitus, Hyperlipidemia, Hypertension, Myocardial Infarction ([place]), Osteoarthritis (OA) Additional Past Medical History / Comment(s): Bladder cancer stage with treatment, in remission since 2020. IDDM type II, post polio syndrome,leg length discrepancy, bronchitis, chronic low back pain. Last Myocardial Infarction Date:: 07/23/19 History of Any Multi-Drug Resistant Organisms: None Reported Past Surgical History: Heart Catheterization With Stent, Orthopedic Surgery Additional Past Surgical History / Comment(s): Cystoscopy, TURBT x2, closure of patent urachus bladder tumor as , R leg surgery d/t polio-lengthening, cardiac stents 2018; Right hip surgery 11/03/2022 Past Anesthesia/Blood Transfusion Reactions: No Reported Reaction Date of Last Stent Placement:: 07/23/19 Past Psychological History: No Psychological Hx Reported Smoking Status: Former smoker Past Alcohol Use History: None Reported Past Drug Use History: None Reported - Past Family History Father History Unknown: Yes Mother Additional Family Medical History / Comment(s): Mother of in a MVA when pt was 15 yrs old. Brother(s) Additional Family Medical History / Comment(s): Pt has one brother who of a bowel problem and another brother that of a ruptured aneurysm. Medications and Allergies Home Medications Medication Instructions Recorded Confirmed Type Aspirin 81 mg PO DAILY #90 chewable 07/25/19 08/17/23 Rx Atorvastatin [Lipitor] 80 mg PO DAILY 05/13/20 08/17/23 History Liraglutide [Victoza 3-Sam] 1.8 mg SQ DAILY 08/04/23 08/17/23 History metFORMIN HCL ER [Glucophage XR] 500 mg PO BID 08/04/23 08/17/23 History Apixaban [Eliquis] 5 mg PO BID #60 tab 08/10/23 08/17/23 Rx Magnesium Oxide [Mag-Ox] 400 mg PO DAILY #30 tab 08/10/23 08/17/23 Rx Metoprolol Tartrate [Lopressor] 50 mg PO BID #60 tab 08/10/23 08/17/23 Rx amLODIPine [Norvasc] 10 mg PO DAILY #30 tab 08/10/23 08/17/23 Rx hydrALAZINE HCL [Apresoline] 50 mg PO QID #120 tab 08/10/23 08/17/23 Rx Albuterol Sulfate [Albuterol 1 puff INHALATION RT-Q4H PRN 08/17/23 08/17/23 History Sulfate Hfa] Calcium Carb-Vit D 500Mg-5Mcg 1 tab PO DAILY 08/17/23 08/17/23 History [Oscal 500+D 5 Mcg (200 Iu)] HYDROcodone/APAP 5-325MG [[place] 1 tab PO Q6H PRN 08/17/23 08/17/23 History 5-325] Levofloxacin [Levaquin] See Taper PO DAILY 08/17/23 08/17/23 History metroNIDAZOLE [Flagyl] 500 mg PO TID 08/17/23 08/17/23 History Allergies Allergy/AdvReac Type Severity Reaction Status Date / Time No Known Allergies Allergy Verified 08/17/23 12:11 Physical Exam Vitals: Vital Signs Temp Pulse Resp BP Pulse Ox 08/17/23 09:34 98.4 F 70 20 121/50 96 Intake and Output 08/16/23 08/17/23 08/17/23 22:59 06:59 14:59 Other: Weight 81.647 kg GENERAL: The patient is alert and oriented x3, not in any acute distress. Well developed, well nourished. HEENT: Pupils are round and equally reacting to light. EOMI. No scleral icterus. No conjunctival pallor. Normocephalic, atraumatic. No pharyngeal erythema. No thyromegaly. CARDIOVASCULAR: S1 and S2 present. No murmurs, rubs, or gallops. -PULMONARY: Chest is clear to auscultation, no wheezing , bilateral basal crackles. ABDOMEN: Soft, nontender, nondistended, normoactive bowel sounds. No palpable organomegaly. MUSCULOSKELETAL: No joint swelling or deformity. -EXTREMITIES: No cyanosis, clubbing, bilateral pitting leg edema of arms and legs. NEUROLOGICAL: Gross neurological examination did not reveal any focal deficits. SKIN: No rashes. no petechiae. Results CBC & Chem 7: 08/17/23 10:13 08/17/23 10:13 Labs: Abnormal Lab Results - Last 24 Hours (Table) 08/17/23 08/17/23 Range/Units 10:13 10:13 WBC 11.7 H (3.8-10.6) k/uL RBC 3.18 L (4.30-5.90) m/uL Hgb 11.1 L (13.0-17.5) gm/dL Hct 33.6 L (39.0-53.0) % MCV 105.5 H (80.0-100.0) fL Neutrophils # 10.2 H (1.3-7.7) k/uL Lymphocytes # 0.8 L (1.0-4.8) k/uL Sodium 136 L (137-145) mmol/L Potassium 5.4 H (3.5-5.1) mmol/L Chloride 108 H (98-107) mmol/L Carbon Dioxide 17 L (22-30) mmol/L BUN 23 H (9-20) mg/dL Creatinine 1.31 H (0.66-1.25) mg/dL Glucose 178 H (74-99) mg/dL Calcium 8.0 L (8.4-10.2) mg/dL Magnesium 1.2 L (1.6-2.3) mg/dL ALT 51 H (4-49) U/L Alkaline Phosphatase 176 H (38-126) U/L Total Protein 6.0 L (6.3-8.2) g/dL Albumin 3.1 L (3.5-5.0) g/dL TSH 18.400 H (0.465-4.680) mIU/L Free T4 0.65 L (0.78-2.19) ng/dL Assessment and Plan Assessment: acute CHF exacerbation, could be exacerbated by hyperthyroidism Left neck mass with biopsy showing 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 Continue same treatment. Continue with symptomatic treatment. Resume home medication. Monitor labs and vitals. DVT and GI prophylaxis. Further recommendations as per clinical course of the patient DVT prophylaxis: Eliquis GI Prophylaxis: Pepcid PT/OT: Pending Prognosis is guarded
[2023-08-17] MEDS: LEVOTHYROXINE 25 MCG TAB PO SCH (15:26)
[2023-08-17 17:08] LABS: Appearance,Urine Slightly Cloudy (Clear); Color,Urine Yellow; Glucose,Urine (UA) Trace (Negative); Ketones,Urine Negative (Negative); PH, Urine 5.5 (5.0-8.0); Protein,Urine 1+ (Negative); Specific Gravity,Urine 1.025 (1.001-1.035)
[2023-08-17 17:09] LABS: Bilirubin,Urine Negative (Negative); Blood,Urine Negative (Negative); Leukocyte Esterase,Urine Small (Negative); Nitrite,Urine Negative (Negative); Urobilinogen,Urine <2.0 mg/dL (<2.0)
[2023-08-17 17:40] LABS: RBC,Urine <1 /hpf (0-5); Squamous Epithelial Cell,Urine 1 /hpf (0-4); WBC,Urine 2 /hpf (0-5)
[2023-08-17] MEDS: hydrALAZINE HCL 50 MG TAB PO SCH ×2 (18:48→22:08)
[2023-08-17] MEDS: METOPROLOL TARTRATE 50 MG TAB PO SCH (20:58)
[2023-08-17] MEDS: APIXABAN 5 MG TAB PO SCH (20:58)
[2023-08-17] MEDS: metFORMIN 500 MG TAB PO SCH (20:58)
[2023-08-18] MEDS: LEVOTHYROXINE 25 MCG TAB PO SCH (06:53)
[2023-08-18] MEDS: ASPIRIN 81 MG PO SCH (08:54)
[2023-08-18] MEDS: ATORVASTATIN 80 MG TAB PO SCH (08:54)
[2023-08-18] MEDS: METOPROLOL TARTRATE 50 MG TAB PO SCH ×2 (08:54→19:43)
[2023-08-18] MEDS: hydrALAZINE HCL 50 MG TAB PO SCH ×4 (08:54→19:43)
[2023-08-18] MEDS: metFORMIN 500 MG TAB PO SCH ×2 (08:54→19:43)
[2023-08-18] MEDS: APIXABAN 5 MG TAB PO SCH ×2 (08:54→19:43)
[2023-08-18] MEDS: FUROSEMIDE 10 MG/ML 4 ML VIAL IV SCH ×2 (08:55→19:43)
[2023-08-18] MEDS: CALCIUM CARB-VIT D 500 MG-5 MCG TAB PO SCH (08:55)
[2023-08-18] MEDS: amLODIPine 10 MG TAB PO SCH (08:55)
[2023-08-18] MEDS: NON FORMULARY DRUG (Liraglutide [Victoza 3-Pak] 0.6 MG/0.1 ML Ml) SQ SCH (08:55)
[2023-08-18] MEDS: MAGNESIUM OXIDE 400 MG TAB PO SCH (08:55)
--- NOTE | 2023-08-18 09:13 | P.PN ---
Subjective Pleasant 72-year-old patient who follows with Dr. Johnny Rubio./Mid-level provider-Kareen. Chronic stable medical conditions include CAD with stent in 2018, diabetes, hypertension, hyperlipidemia, osteoporosis, bladder cancer with treatment in remission and cystoscopy 2020, patient had right hip surgery in October of this year now does use a walker when he goes outside. Otherwise a cane. Patient was recently discharged from the hospital 08/04-08/14 left sided neck mass concerning for malignancy Presents today because of increasing swelling of arms and legs. Also patient complaining of from little shortness of breath occasional coughing but no chest pain He says he cannot go for his urine but he denies any GI problems No headache dizziness weakness numbness. he denies smoking, Alcohol or illicit tracts, He was not discharged on Lasix Vitals stable Labs are showing mild leukocytosis of 11.7, last time he was discharged his WBCs were 18.2. Hemoglobin 11.1, rest of CBC, INR is unremarkable. Creatinine 1.3 which is at baseline, potassium 5.4, magnesium 1.2. TSH is high at 18 and free T4 is low at 0.65 EKG showing normal sinus rhythm at [address]-T changes. Mild ST depression on the sixth Chest x-ray: Cardiomegaly with pulmonary vascular congestion and right pleural effusion suggestive of CHF. Venous Doppler: Superficial thrombus seen within the left cephalic vein. Nonocclusive deep venous thrombosis seen in the internal jugular vein 08/18/2023 Patient sitting up in bed, states that his breathing is slightly better, he can lie flat as he describes. Patient is not working at baseline, confirmed. The w norman at bedside. History the have significant swelling of arms and legs. Patient was started on IV Lasix 40 mg twice daily and he continued on home dose of liquids 5 mg. Also patient is started on small dose of levothyroxine 25 g. Objective - Vital Signs Vital signs: Vital Signs Temp 98.4 F 08/17/23 09:34 Pulse 88 08/18/23 08:42 Resp 18 08/18/23 08:42 BP 113/56 08/18/23 08:42 Pulse Ox 94 L 08/18/23 08:42 FiO2 Intake & Output 08/17/23 08/18/23 08/18/23 18:59 06:59 18:59 Output Total 200 Balance -200 Weight 81.647 kg Output: Urine 200 - Exam GENERAL: The patient is alert and oriented x3, not in any acute distress. Well developed, well nourished. HEENT: Pupils are round and equally reacting to light. EOMI. No scleral icterus. No conjunctival pallor. Normocephalic, atraumatic. No pharyngeal erythema. No thyromegaly. CARDIOVASCULAR: S1 and S2 present. No murmurs, rubs, or gallops. PULMONARY: Chest is clear to auscultation, no wheezing , no crackles. ABDOMEN: Soft, nontender, nondistended, normoactive bowel sounds. No palpable organomegaly. MUSCULOSKELETAL: No joint swelling or deformity. -EXTREMITIES: No cyanosis, clubbing, bilateral leg and arm became like edema NEUROLOGICAL: Gross neurological examination did not reveal any focal deficits. SKIN: No rashes. no petechiae. - Labs CBC & Chem 7: 08/17/23 10:13 08/17/23 10:13 Labs: Abnormal Lab Results - Last 24 Hours (Table) 08/17/23 08/17/23 Range/Units 10:13 10:13 WBC 11.7 H (3.8-10.6) k/uL RBC 3.18 L (4.30-5.90) m/uL Hgb 11.1 L (13.0-17.5) gm/dL Hct 33.6 L (39.0-53.0) % MCV 105.5 H (80.0-100.0) fL Neutrophils # 10.2 H (1.3-7.7) k/uL Lymphocytes # 0.8 L (1.0-4.8) k/uL Sodium 136 L (137-145) mmol/L Potassium 5.4 H (3.5-5.1) mmol/L Chloride 108 H (98-107) mmol/L Carbon Dioxide 17 L (22-30) mmol/L BUN 23 H (9-20) mg/dL Creatinine 1.31 H (0.66-1.25) mg/dL Glucose 178 H (74-99) mg/dL Calcium 8.0 L (8.4-10.2) mg/dL Magnesium 1.2 L (1.6-2.3) mg/dL ALT 51 H (4-49) U/L Alkaline Phosphatase 176 H (38-126) U/L Total Protein 6.0 L (6.3-8.2) g/dL Albumin 3.1 L (3.5-5.0) g/dL TSH 18.400 H (0.465-4.680) mIU/L Free T4 0.65 L (0.78-2.19) ng/dL Assessment and Plan Assessment: acute CHF exacerbation, could be exacerbated by hyperthyroidism Left neck mass with biopsy showing 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 Continue same treatment. Continue with sy mptomatic treatment. Resume home medication. Monitor labs and vitals. DVT and GI prophylaxis. Further recommendations as per clinical course of the patient DVT prophylaxis: Eliquis GI Prophylaxis: Pepcid PT/OT: Pending Prognosis is guarded
--- NOTE | 2023-08-18 09:34 | P.CRDCN ---
History of Present Illness Consult date: 08/18/23 Consult reason: congestive heart failure History of present illness: HISTORY OF PRESENT ILLNESS: This is a 73-year-old male patient of Dr. 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 Patient had a recent hospitalization and discharge on 08/10. He was seen by cardiology at that time for new onset of A. fib with RVR and was started on eliquis and Coreg was changed to metoprolol tartrate. Patient was also treated at that time for acute kidney injury with a peak creatinine of 7.4 secondary to hypotension, medications and right-sided hydronephrosis. Patient states that when he left the hospital, he had left arm swelling and now he has edema to both lower legs and arms along with shortness of breath, dyspnea on exertion, cough with clear phlegm production, chronic chills without fever. He denies orthopnea and denies PND. Patient also comp lains of significant scrotal and penile edema. We have been asked to evaluate the patient for heart failure. Patient is status post 1 dose of IV Lasix 40 mg. Patient states he has not urinated very much. Bladder scans have been performed on 2 occasions less than 300 mL. Patient also found to have severe hypothyroidism started on levothyroxine 25 g daily. EKG reveals sinus rhythm, telemetry sinus rhythm at 90 bpm Chest xray cardiomegaly with pulmonary vascular congestion and trace right pl eural effusion. Findings suggestive of CHF exacerbation. Lower extremity ultrasound negative for DVT bilaterally Left UE US + DVT WBC 11.7, hemoglobin 11.1, platelet count 260. INR 1.1. Sodium 136, potassium 5. or, chloride 108, CO2 17, BUN 23 creatinine 1.31. Blood sugar 178. ALT 51, alkaline phosphatase 176, proBNP 5360. TSH 18.4, free T4 0.65. Current home cardiac medications include amlodipine 10 mg daily, eliquis 5 mg twice daily, aspirin 81 mg daily, Lipitor 80 mg daily, hydralazine 50 mg 4 times daily, Lopressor 50 mg twice daily Echocardiogram performed 08/06/2023 revealed preserved LV systolic function 50- 55%, mild inferior septal hypokinesis. Cardiac catheterization history: July 2019 revealing critical disease involving the proximal and mid RCA, intermediate to severe disease involving the left circumflex, intermediate disease involving the ramus intermedius, and mild disease involving the LAD. Patient underwent stenting of the mid and proximal RCA. REVIEW OF SYSTEMS: At the time of my exam: CONSTITUTIONAL: Denies fever + chills. HEENT: Denies blurred vision, vision changes, or eye pain. Denies hemoptysis CARDIOVASCULAR: Denies chest pain. Denies orthopnea. Denies PND. Denies palpitations RESPIRATORY: + shortness of breath. + cough, + sputum production, + NEGRETE GASTROINTESTINAL: Denies abdominal pain. Denies nausea or vomiting. HEMATOLOGIC: Denies bleeding disorders. EXTREMITIES: +edema to LUE and bilat lower extremities GENITOURINARY: Denies any blood in urine. + scrotal edema SKIN: Denies pruitis. Denies rash. PHYSICAL EXAM: VITAL SIGNS: Reviewed. GENERAL: Well-developed in no acute distress. HEENT: Head is normocephalic. Pupils are equal, round. Sclerae anicteric. Mucous membranes of the mouth are moist. Neck supple. No JVD or thyromegaly LUNGS: Diminished at the bases. HEART: Regular rate and rhythm. S1 and S2 heard. Systolic murmur noted. ABDOMEN: Soft. Nondistended. Nontender. EXTREMITIES: 1+ bilateral lower extremity edema R > L. +Edema LUE. No clubbing or cyanosis. Peripheral pulses intact. NEUROLOGIC: Awake and alert. Oriented x 3. ASSESSMENT: Acute HFpEF Paroxysmal atrial fibrillation Neck mass non-small cell carcinoma (oncology on consult) LUE DVT Hypothyroidism Coronary artery disease with previous stenting Valvular heart disease including moderate MR Hypertension Hyperlipidemia Diabetes, uncontrolled, hemoglobin A1c 9.3 Carotid atherosclerosis History of bladder cancer with previous chemo and radiation PLAN: Resume patient's home cardiac medications Start patient on Lasix 40 mg IV twice daily No need to repeat echocardiogram Monitor I&O, daily weights, electrolytes and renal function Further recommendations pending patient's course Nurse practitioner note has been reviewed by physician. Signing provider agrees with the documented findings, assessment, and plan of care. Past Medical History Past Medical History: Coronary Artery Disease (CAD), Cancer, Diabetes Mellitus, Hyperlipidemia, Hypertension, Myocardial Infarction (CO), Osteoarthritis (OA) Additional Past Medical History / Comment(s): Bladder cancer stage with treatment, in remission since 2020. IDDM type II, post polio syndrome,leg length discrepancy, bronchitis, chronic low back pain. Last Myocardial Infarction Date:: 07/23/19 History of Any Multi-Drug Resistant Organisms: None Reported Past Surgical History: Heart Catheterization With Stent, Orthopedic Surgery Additional Past Surgical History / Comment(s): Cystoscopy, TURBT x2, closure of patent urachus bladder tumor as , R leg surgery d/t polio-lengthening, cardiac stents 2018; Right hip surgery 11/03/2022 Past Anesthesia/Blood Transfusion Reactions: No Reported Reaction Date of Last Stent Placement:: 07/23/19 Past Psychological History: No Psychological Hx Reported Smoking Status: Former smoker Past Alcohol Use History: None Reported Past Drug Use History: None Reported - Past Family History Father History Unknown: Yes Mother Additional Family Medical History / Comment(s): Mother of in a MVA when pt was 15 yrs old. Brother(s) Additional Family Medical History / Comment(s): Pt has one brother who of a bowel problem and another brother that of a ruptured aneurysm. Medications and Allergies Home Medications Medication Instructions Recorded Confirmed Type Aspirin 81 mg PO DAILY #90 chewable 07/25/19 08/17/23 Rx Atorvastatin [Lipitor] 80 mg PO DAILY 05/13/20 08/17/23 History Liraglutide [Victoza 3-Sam] 1.8 mg SQ DAILY 08/04/23 08/17/23 History metFORMIN HCL ER [Glucophage XR] 500 mg PO BID 08/04/23 08/17/23 History Apixaban [Eliquis] 5 mg PO BID #60 tab 08/10/23 08/17/23 Rx Magnesium Oxide [Mag-Ox] 400 mg PO DAILY #30 tab 08/10/23 08/17/23 Rx Metoprolol Tartrate [Lopressor] 50 mg PO BID #60 tab 08/10/23 08/17/23 Rx amLODIPine [Norvasc] 10 mg PO DAILY #30 tab 08/10/23 08/17/23 Rx hydrALAZINE HCL [Apresoline] 50 mg PO QID #120 tab 08/10/23 08/17/23 Rx Albuterol Sulfate [Albuterol 1 puff INHALATION RT-Q4H PRN 08/17/23 08/17/23 History Sulfate Hfa] Calcium Carb-Vit D 500Mg-5Mcg 1 tab PO DAILY 08/17/23 08/17/23 History [Oscal 500+D 5 Mcg (200 Iu)] HYDROcodone/APAP 5-325MG [[place] 1 tab PO Q6H PRN 08/17/23 08/17/23 History 5-325] Levofloxacin [Levaquin] See Taper PO DAILY 08/17/23 08/17/23 History metroNIDAZOLE [Flagyl] 500 mg PO TID 08/17/23 08/17/23 History Allergies Allergy/AdvReac Type Severity Reaction Status Date / Time No Known Allergies Allergy Verified 08/17/23 12:11 Physical Exam Vitals: Vital Signs Temp Pulse Resp BP Pulse Ox 08/18/23 06:03 75 18 136/54 97 08/18/23 00:03 69 08/17/23 22:09 70 18 137/63 97 08/17/23 14:33 88 18 149/84 98 08/17/23 09:34 98.4 F 70 20 121/50 96 Intake and Output 08/17/23 08/18/23 08/18/23 22:59 06:59 14:59 Output Total 200 Balance -200 Output: Urine 200 Results 08/17/23 10:13 08/17/23 10:13 Cardiac Enzymes 08/17/23 Range/Units 10:13 AST 39 (17-59) U/L Coagulation 08/17/23 Range/Units 10:13 PT 11.5 (10.0-12.5) sec APTT 27.5 (22.0-30.0) sec CBC 08/17/23 Range/Units 10:13 WBC 11.7 H (3.8-10.6) k/uL RBC 3.18 L (4.30-5.90) m/uL Hgb 11.1 L (13.0-17.5) gm/dL Hct 33.6 L (39.0-53.0) % Plt Count 260 (150-450) k/uL Comprehensive Metabolic Panel 08/17/23 Range/Units 10:13 Sodium 136 L (137-145) mmol/L Potassium 5.4 H (3.5-5.1) mmol/L Chloride 108 H (98-107) mmol/L Carbon Dioxide 17 L (22-30) mmol/L BUN 23 H (9-20) mg/dL Creatinine 1.31 H (0.66-1.25) mg/dL Glucose 178 H (74-99) mg/dL Calcium 8.0 L (8.4-10.2) mg/dL AST 39 (17-59) U/L ALT 51 H (4-49) U/L Alkaline Phosphatase 176 H (38-126) U/L Total Protein 6.0 L (6.3-8.2) g/dL Albumin 3.1 L (3.5-5.0) g/dL Current Medications Generic Name Dose Route Start Last Admin Trade Name Freq PRN Reason Stop Dose Admin Acetaminophen 650 mg 08/17/23 13:08 Acetaminophen Tab 325 Mg Tab PO Q6HR PRN Mild Pain or Fever > 100.5 Hydrocodone Bitart/Acetaminophen 1 each 08/17/23 13:12 Hydrocodone/Apap 5-325mg 1 Each Tab PO Q6H PRN Pain Albuterol Sulfate 2.5 mg 08/17/23 13:12 Albuterol Nebulized 2.5 Mg/3 Ml INHALATION RT-Q4H PRN Shortness Of Breath Amlodipine Besylate 10 mg 08/18/23 09:00 Amlodipine 10 Mg Tab PO DAILY [facility] Apixaban 5 mg 08/17/23 21:00 08/17/23 20:58 Apixaban 5 Mg Tab PO 5 mg BID [facility] Administration Protocol Aspirin 81 mg 08/18/23 09:00 Aspirin 81 Mg PO DAILY [facility] Atorvastatin Calcium 80 mg 08/18/23 09:00 Atorvastatin 80 Mg Tab PO DAILY [facility] Calcium Carbonate 1 each 08/18/23 09:00 Calcium Carb-Vit D 500 Mg-5 Mcg Tab PO DAILY [facility] Hydralazine HCl 50 mg 08/17/23 18:00 08/17/23 22:08 Hydralazine Hcl 50 Mg Tab PO 50 mg QID [facility] Administration Levothyroxine Sodium 25 mcg 08/17/23 14:30 08/18/23 06:53 Levothyroxine 25 Mcg Tab PO 25 mcg DAILY@0630 [facility] Administration Magnesium Oxide 400 mg 08/18/23 09:00 Magnesium Oxide 400 Mg Tab PO DAILY [facility] Metformin HCl 500 mg 08/17/23 21:00 08/17/23 20:58 Metformin 500 Mg Tab PO 500 mg BID [facility] Administration Metoprolol Tartrate 50 mg 08/17/23 21:00 08/17/23 20:58 Metoprolol Tartrate 50 Mg Tab PO 50 mg BID [facility] Administration Morphine Sulfate 4 mg 08/17/23 13:08 Morphine Sulfate 4 Mg/Ml Syringe IV Q4HR PRN Severe Pain (Scale 7 to 10) Naloxone HCl 0.2 mg 08/17/23 13:08 Naloxone 0.4 Mg/Ml 1 Ml Vial IV Q2M PRN Opioid Reversal Non-Formulary Medication 1.8 mg 08/18/23 09:00 Liraglutide [Victoza 3-Sam] SQ DAILY [facility] Ondansetron HCl 4 mg 08/17/23 13:08 Ondansetron 4 Mg/2 Ml Vial IVP Q8HR PRN Nausea And Vomiting Intake and Output 08/17/23 08/18/23 08/18/23 22:59 06:59 14:59 Output Total 200 Balance -200 Output: Urine 200 08/17/23 10:13 08/17/23 10:13
--- NOTE | 2023-08-18 09:56 | P.CONS ---
History of Present Illness - Reason for Consult Consult date: 08/17/23 metastatic urothelial carcinoma Requesting physician: Jenniffer Apple - Chief Complaint extremity edema - History of Present Illness Patient is a 72 year old male with a significant hx of bladder cancer. Consult was placed for neck mass. He is a patient of Dr. Banda. He initially presented with gross hematuria following following start of Plavix after PTCA and andreas nary stents placement by Dr Pennington in Aug 2019. He was referred to Dr Myers and had cystoscopy on 12/15/19 revealing high-grade urothelial carcinoma. The patient was evaluated by Dr Rosado at [facility] and Cystoscopy and TURBT on 03/03/20 revealing 3X3 cm urothelial carcinoma with Papillary features and clear cell component (20-30%). CT Scan of CAP did not identify systemic disease or gross pelvic lymphadenopathy. He was re-evaluated by Dr Rosado and Dr Beltrán, given option of radical cystectomy V/S concurrent radiation therapy/Chemotherapy, which he opted for. Patient completed concurrent chemo/RT, with cisplatin/taxol in 06/2020. He continued f/u and repeat scans and cystoscopy/biopsies were negative and at last f/u in 11/2021, he was scheduled for repeat CAP and f/u with Dr. Rosado for repeat cystoscopy for 02/2022. He reports scan and scope was negative and then lost f/u with Dr. Rosado due to loss of his insurance and has not had f/u since. Patient was recently admitted to the hospital and was d ischarged on 08/10 for, left sided neck mass, EDITH, and A-fib rvr. Patient reported progressing left neck mass over the last 1 month, with associated loss of appetite. Denied weight loss and night sweats. Biopsy of left neck mass was obtained during that admission revealing metastatic non-small cell carcinoma consistent with metastatic high-grade urothelial carcinoma. Patient was schedul ed for PET/CT today with follow-up with Dr. Banda next week, however, he missed PET scan today and presented to the emergency room with complaints of left upper extremity edema and bilateral lower extremity edema. Patient reported left upper extremity edema has been persisting over the last couple weeks since last admission and began having worsening lower extremity edema over the last 3 to 4 days. Upon admission chest x-ray showed cardiomegaly with pulmonary vascular congestion and trace right pleural effusion. Dopplers of bilateral lower extremities were negative for DVT. Doppler of left upper extremity was positive for nonocclusive deep vein thrombosis within the internal jugular vein and superficial thrombus within the left cephalic vein. Upon review of records patient was started on heparin and transitioned to Eliquis during last admission due to new onset A-fib with RVR. Patient has continued on Eliquis since discharge. CBC revealed WBC 11.7, hemoglobin 11.1, platelets 2 3,000. Coags WNL. Creatinine 1.3, GFR 55. BNP 5360. Review of Systems 10 point ROS is negative except as stated in the HPI Past Medical History Past Medical History: Coronary Artery Disease (CAD), Cancer, Diabetes Mellitus, Hyperlipidemia, Hypertension, Myocardial Infarction ([place]), Osteoarthritis (OA) Additional Past Medical History / Comment(s): Bladder cancer stage with treatment, in remission since 2020. IDDM type II, post polio syndrome,leg length discrepancy, bronchitis, chronic low back pain. Last Myocardial Infarction Date:: 07/23/19 History of Any Multi-Drug Resistant Organisms: None Reported Past Surgical History: Heart Catheterization With Stent, Orthopedic Surgery Additional Past Surgical History / Comment(s): Cystoscopy, TURBT x2, closure of patent urachus bladder tumor as , R leg surgery d/t polio-lengthening, cardiac stents 2018; Right hip surgery 11/03/2022 Past Anesthesia/Blood Transfusion Reactions: No Reported Reaction Date of Last Stent Placement:: 07/23/19 Past Psychological History: No Psychological Hx Reported Smoking Status: Former smoker Past Alcohol Use History: None Reported Past Drug Use History: None Reported - Past Family History Father History Unknown: Yes Mother Additional Family Medical History / Comment(s): Mother of in a MVA when pt was 15 yrs old. Brother(s) Additional Family Medical History / Comment(s): Pt has one brother who of a bowel problem and another brother that of a ruptured aneurysm. Medications and Allergies Home Medications Medication Instructions Recorded Confirmed Type Aspirin 81 mg PO DAILY #90 chewable 07/25/19 08/17/23 Rx Atorvastatin [Lipitor] 80 mg PO DAILY 05/13/20 08/17/23 History Liraglutide [Victoza 3-Sam] 1.8 mg SQ DAILY 08/04/23 08/17/23 History metFORMIN HCL ER [Glucophage XR] 500 mg PO BID 08/04/23 08/17/23 History Apixaban [Eliquis] 5 mg PO BID #60 tab 08/10/23 08/17/23 Rx Magnesium Oxide [Mag-Ox] 400 mg PO DAILY #30 tab 08/10/23 08/17/23 Rx Metoprolol Tartrate [Lopressor] 50 mg PO BID #60 tab 08/10/23 08/17/23 Rx amLODIPine [Norvasc] 10 mg PO DAILY #30 tab 08/10/23 08/17/23 Rx hydrALAZINE HCL [Apresoline] 50 mg PO QID #120 tab 08/10/23 08/17/23 Rx Albuterol Sulfate [Albuterol 1 puff INHALATION RT-Q4H PRN 08/17/23 08/17/23 History Sulfate Hfa] Calcium Carb-Vit D 500Mg-5Mcg 1 tab PO DAILY 08/17/23 08/17/23 History [Oscal 500+D 5 Mcg (200 Iu)] HYDROcodone/APAP 5-325MG [[place] 1 tab PO Q6H PRN 08/17/23 08/17/23 History 5-325] Levofloxacin [Levaquin] See Taper PO DAILY 08/17/23 08/17/23 History metroNIDAZOLE [Flagyl] 500 mg PO TID 08/17/23 08/17/23 History Allergies Allergy/AdvReac Type Severity Reaction Status Date / Time No Known Allergies Allergy Verified 08/17/23 12:11 Physical Exam Vitals: Vital Signs Temp Pulse Resp BP Pulse Ox 08/17/23 14:33 88 18 149/84 98 08/17/23 09:34 98.4 F 70 20 121/50 96 Intake and Output 08/17/23 08/17/23 08/17/23 06:59 14:59 22:59 Output Total 200 Balance -200 Output: Urine 200 Other: Weight 81.647 kg - Constitutional General appearance: no acute distress, obese - EENT Eyes: anicteric sclerae, EOMI ENT: hearing grossly normal - Neck large left neck mass - Respiratory Respiratory: right: CTA, left: rales (mild LLL rales ) - Cardiovascular Rhythm: regular Heart sounds: normal: S1, S2 leg Peripheral Edema: left: Other (LUE edema with bruising noted to left upper arm ), bilateral: 2+, Pitting - Gastrointestinal General gastrointestinal: soft, no tenderness - Integumentary Integumentary: no cyanotic - Musculoskeletal Musculoskeletal: generalized weakness - Psychiatric Psychiatric: A&O x's 3, appropriate affect, intact judgment & insight Results CBC & Chem 7: 08/17/23 10:13 08/17/23 10:13 Labs: Abnormal Lab Results - Last 24 Hours (Table) 08/17/23 08/17/23 Range/Units 10: 10:13 WBC 11.7 H (3.8-10.6) k/uL RBC 3.18 L (4.30-5.90) m/uL Hgb 11.1 L (13.0-17.5) gm/dL Hct 33.6 L (39.0-53.0) % MCV 105.5 H (80.0-100.0) fL Neutrophils # 10.2 H (1.3-7.7) k/uL Lymphocytes # 0.8 L (1.0-4.8) k/uL Sodium 136 L (137-145) mmol/L Potassium 5.4 H (3.5-5.1) mmol/L Chloride 108 H (98-107) mmol/L Carbon Dioxide 17 L (22-30) mmol/L BUN 23 H (9-20) mg/dL Creatinine 1.31 H (0.66-1.25) mg/dL Glucose 178 H (74-99) mg/dL Calcium 8.0 L (8.4-10.2) mg/dL Magnesium 1.2 L (1.6-2.3) mg/dL ALT 51 H (4-49) U/L Alkaline Phosphatase 176 H (38-126) U/L Total Protein 6.0 L (6.3-8.2) g/dL Albumin 3.1 L (3.5-5.0) g/dL TSH 18.400 H (0.465-4.680) mIU/L Free T4 0.65 L (0.78-2.19) ng/dL Comments: pathology reviewed Chest x-ray: report reviewed Venous US: report reviewed Assessment and Plan (1) New onset of congestive heart failure Current Visit: Yes Status: Acute Priority: High Code(s): I50.9 - HEART FAILURE, UNSPECIFIED SNOMED Code(s): 17364420 (2) Thrombosis of left internal jugular vein Current Visit: Yes Status: Acute Priority: High Code(s): I82.C12 - ACUTE EMBOLISM AND THROMBOSIS OF LEFT INTERNAL JUGULAR VEIN SNOMED Code(s): 598684025 (3) Metastatic urothelial carcinoma Current Visit: Yes Status: Acute Priority: High Code(s): C79.10 - SECONDARY MALIGNANT NEOPLASM OF UNSPECIFIED URINARY ORGANS SNOMED Code(s): 65949126 Plan: Metastatic urothelial carcinoma: -Full history as stated in HPI -Completed treatment with concurrent chemo/RT in 06/2020. Was following up for observation in clinic through 11/2021 with no evidence of recurrence. Stopped f/u with urology in February 2022 due to insurance reasons, and has not had f/u since -Progressing left neck mass. Biopsy of the lt neck mass revealed metastatic non- small cell carcinoma consistent with metastatic high-grade urothelial carcinoma. Results were discussed with patient and spouse -Will reschedule PET CT, and pending hospitalization may have to reschedule clinic f/u with Dr. Banda DVT: -Doppler of left upper extremity was positive for nonocclusive deep vein thrombosis within the internal jugular vein and superficial thrombus within the left cephalic vein. Dopplers of bilateral lower extremities were negative for DVT. -Upon review of records patient was started on heparin and transitioned to Eliquis during last admission due to new onset A-fib with RVR, and has continued on Eliquis since discharge. LUE edema has been persisting since last admission with no changes in arm swelling, however, there were no dopplers obtained at that time. Patient has continued on Eliquis since discharge. -At this time patient can continue on Eliquis, as it is likely thrombus was already present when started on anticoagulation. If additional thrombus presents while anticoagulated with Eliquis will have to switch anticoagulant
[2023-08-18 11:52] LABS: Glucose,Whole Blood 159 mg/dL (70-110)
[2023-08-18 16:22] LABS: Glucose,Whole Blood 165 mg/dL (70-110)
[2023-08-18 20:33] LABS: Glucose,Whole Blood 253 mg/dL (70-110)
[2023-08-18] MEDS: INSULIN ASPART (NovoLOG) 100 UNIT/ML VIAL SQ SCH (20:56)
[2023-08-19 06:19] LABS: Glucose,Whole Blood 104 mg/dL (70-110)
[2023-08-19] MEDS: INSULIN ASPART (NovoLOG) 100 UNIT/ML VIAL SQ SCH ×4 (06:24→20:48)
[2023-08-19] MEDS: LEVOTHYROXINE 25 MCG TAB PO SCH (06:27)
[2023-08-19] MEDS: ATORVASTATIN 80 MG TAB PO SCH (08:59)
[2023-08-19] MEDS: metFORMIN 500 MG TAB PO SCH ×2 (08:59→20:47)
[2023-08-19] MEDS: CALCIUM CARB-VIT D 500 MG-5 MCG TAB PO SCH (08:59)
[2023-08-19] MEDS: hydrALAZINE HCL 50 MG TAB PO SCH ×4 (08:59→20:47)
[2023-08-19] MEDS: amLODIPine 10 MG TAB PO SCH (08:59)
[2023-08-19] MEDS: MAGNESIUM OXIDE 400 MG TAB PO SCH (08:59)
[2023-08-19] MEDS: ASPIRIN 81 MG PO SCH (08:59)
[2023-08-19] MEDS: NON FORMULARY DRUG (Liraglutide [Victoza 3-Pak] 0.6 MG/0.1 ML Ml) SQ SCH (09:00)
[2023-08-19] MEDS: METOPROLOL TARTRATE 50 MG TAB PO SCH ×2 (09:00→20:47)
[2023-08-19] MEDS: FUROSEMIDE 10 MG/ML 4 ML VIAL IV SCH (09:00)
[2023-08-19] MEDS: APIXABAN 5 MG TAB PO SCH ×2 (09:00→20:47)
--- NOTE | 2023-08-19 09:59 | P.PN ---
Subjective Pleasant 72-year-old patient who follows with Dr. Johnny Rubio./Mid-level provider-Kareen. Chronic stable medical conditions include CAD with stent in 2018, diabetes, hypertension, hyperlipidemia, osteoporosis, bladder cancer with treatment in remission and cystoscopy 2020, patient had right hip surgery in October of this year now does use a walker when he goes outside. Otherwise a cane. Patient was recently discharged from the hospital 08/04-08/14 left sided neck mass concerning for malignancy Presents today because of increasing swelling of arms and legs. Also patient complaining of from little shortness of breath occasional coughing but no chest pain He says he cannot go for his urine but he denies any GI problems No headache dizziness weakness numbness. he denies smoking, Alcohol or illicit tracts, He was not discharged on Lasix Vitals stable Labs are showing mild leukocytosis of 11.7, last time he was discharged his WBCs were 18.2. Hemoglobin 11.1, rest of CBC, INR is unremarkable. Creatinine 1.3 which is at baseline, potassium 5.4, magnesium 1.2. TSH is high at 18 and free T4 is low at 0.65 EKG showing normal sinus rhythm at [address]-T changes. Mild ST depression on the sixth Chest x-ray: Cardiomegaly with pulmonary vascular congestion and right pleural effusion suggestive of CHF. Venous Doppler: Superficial thrombus seen within the left cephalic vein. Nonocclusive deep venous thrombosis seen in the internal jugular vein 08/18/2023 Patient sitting up in bed, states that his breathing is slightly better, he can lie flat as he describes. Patient is not working at baseline, confirmed. The w norman at bedside. History the have significant swelling of arms and legs. Patient was started on IV Lasix 40 mg twice daily and he continued on home dose of liquids 5 mg. Also patient is started on small dose of levothyroxine 25 g. 08/19/2023 Patient's no breathing difficulties, history and embedded and not walking, his main problem is the swelling. Patient currently on IV Lasix twice daily, he says he did not urinate and much. We'll discuss with the staff to check bladder scan. He was started on levothyroxine 25 g. Oncology team on the case, continue with Shukri for his upper extremity DVT. Also present [facility] patient will require PET CT as an outpatient and then follow up with Dr. box Objective - Vital Signs Vital signs: Vital Signs Temp 98.2 F 08/19/23 03:38 Pulse 79 08/19/23 03:38 Resp 16 08/19/23 03:38 BP 129/61 08/19/23 03:38 Pulse Ox 96 08/19/23 03:38 FiO2 Intake & Output 08/18/23 08/19/23 08/19/23 18:59 06:59 18:59 Intake Total 358 Output Total 100 750 Balance 258 -750 Weight 81.647 kg 89.4 kg Intake: Oral 358 Output: Urine 100 750 Other: Voiding Method Urinal Urinal - Exam GENERAL: The patient is alert and oriented x3, not in any acute distress. Well developed, well nourished. HEENT: Pupils are round and equally reacting to light. EOMI. No scleral icterus. No conjunctival pallor. Normocephalic, atraumatic. No pharyngeal erythema. No thyromegaly. CARDIOVASCULAR: S1 and S2 present. No murmurs, rubs, or gallops. PULMONARY: Chest is clear to auscultation, no wheezing , no crackles. ABDOMEN: Soft, nontender, nondistended, normoactive bowel sounds. No palpable organomegaly. MUSCULOSKELETAL: No joint swelling or deformity. -EXTREMITIES: No cyanosis, clubbing, bilateral leg and arm became like edema NEUROLOGICAL: Gross neurological examination did not reveal any focal deficits. SKIN: No rashes. no petechiae. - Labs CBC & Chem 7: 08/17/23 10:13 08/17/23 10:13 Labs: Abnormal Lab Results - Last 24 Hours (Table) 08/18/23 08/18/23 08/18/23 Range/Units 11:50 16:20 20:32 POC Glucose (mg/dL) 159 H 165 H 253 H (70-110) mg/dL Assessment and Plan Assessment: acute CHF exacerbation, could be exacerbated by hyperthyroidism Left neck mass with biopsy showing metastatic non-small cell carcinoma consistent with metastatic high-grade urothelial carcinoma Internal jugular deep venous thrombosis, non-occlusive thrombus Bladder cancer Diabetes mellitus Accessible atrial fibrillation chronic leukocytosis History of coronary artery disease Hypertension Recent history of right-sided hydronephrosis Plan: Start small dose of levothyroxine 25 g Continue with Eliquis Continue with IV Lasix and fluid restriction Cardiology consult Hematology/oncology consult. Follow-up outpatient with office follow-up on discharge and for PET scan as well Labs and medication were reviewed.. Continue same treatment. Continue with symptomatic treatment. Resume home medication. Monitor labs and vitals. DVT and GI prophylaxis. Further recommendations as per clinical course of the patient DVT prophylaxis: Eliquis GI Prophylaxis: Pepcid PT/OT: Pending Prognosis is guarded
[2023-08-19 10:12] LABS: Basophils % (A) 0 %; Eosinophils # (A) 0.2 k/uL (0-0.7); Eosinophils % (A) 2 %; HCT 32.4 % (39.0-53.0); HGB 10.6 gm/dL (13.0-17.5); Lymphocytes # (A) 0.8 k/uL (1.0-4.8); Lymphocytes % (A) 8 %; MCH 34.2 pg (25.0-35.0); MCHC 32.6 g/dL (31.0-37.0); Macrocytosis Slight; Mean Platelet Volume 10.4; Monocytes # (A) 0.6 k/uL (0-1.0); Monocytes % (A) 6 %; Neutrophils # (A) 8.4 k/uL (1.3-7.7); Neutrophils % (A) 82 %; Platelet Count 257 k/uL (150-450); RBC 3.08 m/uL (4.30-5.90); WBC 10.3 k/uL (3.8-10.6)
[2023-08-19 10:26] LABS: African American GFR (CKD) 49 (>60 ml/min/1.73 sqM); Anion Gap 10 mmol/L; Blood Urea Nitrogen 32 mg/dL (9-20); Carbon Dioxide 20 mmol/L (22-30); Chloride 104 mmol/L (98-107); Glucose 124 mg/dL (74-99); Non-African American GFR(CKD) 43 (>60 ml/min/1.73 sqM); Potassium 4.9 mmol/L (3.5-5.1); Sodium 134 mmol/L (137-145)
[2023-08-19 11:33] LABS: Glucose,Whole Blood 194 mg/dL (70-110)
[2023-08-19] MEDS ORDERED: BENZONATATE 100 MG CAP PO PRN (13:17)
--- NOTE | 2023-08-19 13:20 | P.PN ---
Subjective HISTORY OF PRESENT ILLNESS: This is a 73-year-old male patient of Dr. 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 Patient had a recent hospitalization and discharge on 08/10. He was seen by cardiology at that time for new onset of A. fib with RVR and was started on eliquis and Coreg was changed to metoprolol tartrate. Patient was also treated at that time for acute kidney injury with a peak creatinine of 7.4 secondary to hypotension, medications and right-sided hydronephrosis. Patient states that when he left the hospital, he had left arm swelling and now he has edema to both lower legs and arms along with shortness of breath, dyspnea on exertion, cough with clear phlegm production, chronic chills without fever. He denies orthopnea and denies PND. Patient also complains of significant scrotal and penile edema. We have been asked to eri luate the patient for heart failure. Patient is status post 1 dose of IV Lasix 40 mg. Patient states he has not urinated very much. Bladder scans have been performed on 2 occasions less than 300 mL. Patient also found to have severe hypothyroidism started on levothyroxine 25 g daily. EKG reveals sinus rhythm, telemetry sinus rhythm at 90 bpm Chest xray cardiomegaly with pulmonary vascular congestion and trace right pleural effusion. Findings suggestive of CHF exacerbation. Lower extremity ultrasound negative for DVT bilaterally Left UE US + DVT WBC 11.7, hemoglobin 11.1, platelet count 260. INR 1.1. Sodium 136, potassium 5. or, chloride 108, CO2 17, BUN 23 creatinine 1.31. Blood sugar 178. ALT 51, alkaline phosphatase 176, proBNP 5360. TSH 18.4, free T4 0.65. Current home cardiac medications include amlodipine 10 mg daily, eliquis 5 mg twice daily, aspirin 81 mg daily, Lipitor 80 mg daily, hydralazine 50 mg 4 times daily, Lopressor 50 mg twice daily Echocardiogram performed 08/06/2023 revealed preserved LV systolic function 50- 55%, mild inferior septal hypokinesis. Cardiac catheterization history: July 2019 revealing critical disease involving the proximal and mid RCA, intermediate to severe disease involving the left circumflex, intermediate disease involving the ramus intermedius, and mild disease involving the LAD. Patient underwent stenting of the mid and proximal RCA. 08/19 Patient seen and examined. Patient states he feels worse today with increasing cough, increasing wheeze and feeling more short of breath. Denies any chest pain or pressure. He admits to good urine output. Creatinine mildly increased up to 1.6. PHYSICAL EXAM: VITAL SIGNS: Reviewed. GENERAL: Well-developed in no acute distress. HEENT: Head is normocephalic. Pupils are equal, round. Sclerae anicteric. Mucous membranes of the mouth are moist. Neck supple. No JVD or thyromegaly LUNGS: Diminished at the bases. HEART: Regular rate and rhythm. S1 and S2 heard. Systolic murmur noted. ABDOMEN: Soft. Nondistended. Nontender. EXTREMITIES: 1+ bilateral lower extremity edema R > L. +Edema LUE. No clubbing or cyanosis. Peripheral pulses intact. NEUROLOGIC: Awake and alert. Oriented x 3. ASSESSMENT: Acute on chronic respiratory failure possible heart failure component however currently coughing and wheezing, appears more respiratory Acute HFpEF Paroxysmal atrial fibrillation Neck mass non-small cell carcinoma (oncology on consult) LUE DVT Hypothyroidism Coronary artery disease with previous stenting Valvular heart disease including moderate MR Hypertension Hyperlipidemia Diabetes, uncontrolled, hemoglobin A1c 9.3 Carotid atherosclerosis History of bladder cancer with previous chemo and radiation PLAN: Resume patient's home cardiac medications Decreased to Lasix 40 mg IV daily given acute kidney injury and more wheezing and coughing today No need to repeat echocardiogram Monitor I&O, daily weights, electrolytes and renal function Consider pulmonology workup, check repeat chest x-ray Further recommendations pending patient's course Objective - Vital Signs Vital signs: Vital Signs Temp 98.2 F 08/19/23 03:38 Pulse 81 08/19/23 11:00 Resp 16 08/19/23 11:00 BP 150/66 08/19/23 11:00 Pulse Ox 95 08/19/23 11:00 FiO2 Intake & Output 08/18/23 08/19/23 08/19/23 18:59 06:59 18:59 Intake Total 358 240 Output Total 100 750 Balance 258 -750 240 Weight 81.647 kg 89.4 kg Intake: Oral 358 240 Output: Urine 100 750 Other: Voiding Method Urinal Urinal Urinal - Labs CBC & Chem 7: 08/19/23 09:14 08/19/23 09:14 Labs: Abnormal Lab Results - Last 24 Hours (Table) 08/18/23 08/18/23 08/19/23 Range/Units 16:20 20:32 09:14 RBC (4.30-5.90) m/uL Hgb (13.0-17.5) gm/dL Hct (39.0-53.0) % MCV (80.0-100.0) fL Neutrophils # (1.3-7.7) k/uL Lymphocytes # (1.0-4.8) k/uL Sodium 134 L (137-145) mmol/L Carbon Dioxide 20 L (22-30) mmol/L BUN 32 H (9-20) mg/dL Creatinine 1.61 H (0.66-1.25) mg/dL Glucose 124 H (74-99) mg/dL POC Glucose (mg/dL) 165 H 253 H (70-110) mg/dL Calcium 8.0 L (8.4-10.2) mg/dL 08/19/23 08/19/23 Range/Units 09:14 11:32 RBC 3.08 L (4.30-5.90) m/uL Hgb 10.6 L (13.0-17.5) gm/dL Hct 32.4 L (39.0-53.0) % MCV 105.0 H (80.0-100.0) fL Neutrophils # 8.4 H (1.3-7.7) k/uL Lymphocytes # 0.8 L (1.0-4.8) k/uL Sodium (137-145) mmol/L Carbon Dioxide (22-30) mmol/L BUN (9-20) mg/dL Creatinine (0.66-1.25) mg/dL Glucose (74-99) mg/dL POC Glucose (mg/dL) 194 H (70-110) mg/dL Calcium (8.4-10.2) mg/dL
--- NOTE | 2023-08-19 15:57 | XR ---
EXAM: XR chest 1V portable CLINICAL INDICATION:Male, 73 years old with history of re: SOB; [facility] COMPARISON: 08/17/2023 TECHNIQUE: Chest single view. FINDINGS: Lines/tubes/devices: EKG leads overlie the chest. No indwelling lines are seen. Cardiomediastinum: Cardiac silhouette appears stable, mildly enlarged. Stable mediastinal silhouette. Partially calcified aorta. Vasculature: No increased pulmonary vasculature. Lungs/pleura: Costophrenic angles appear sharp, without sizable pleural effusion currently demonstrated. No consoli dation or pneumothorax evident. Bones/soft tissues: Bony thorax appears grossly intact as seen. Mild degenerative changes shoulders and spine. Regional s oft tissues appear unremarkable. IMPRESSION: Mild cardiomegaly, without evidence of decompensated CHF. No sizable pleural effusions demonstrated.
[2023-08-19 16:28] LABS: Glucose,Whole Blood 151 mg/dL (70-110)
[2023-08-19 20:11] LABS: Glucose,Whole Blood 248 mg/dL (70-110)
[2023-08-19] MEDS: guaiFENesin SYRUP 100MG/5ML 200 MG/10 ML CUP PO PRN (20:47)
[2023-08-20 06:21] LABS: Glucose,Whole Blood 135 mg/dL (70-110)
[2023-08-20] MEDS: INSULIN ASPART (NovoLOG) 100 UNIT/ML VIAL SQ SCH ×4 (06:32→21:19)
[2023-08-20] MEDS: LEVOTHYROXINE 25 MCG TAB PO SCH (06:34)
[2023-08-20 08:07] LABS: Basophils % (A) 0 %; Eosinophils # (A) 0.2 k/uL (0-0.7); Eosinophils % (A) 2 %; HCT 29.7 % (39.0-53.0); HGB 9.6 gm/dL (13.0-17.5); Lymphocytes # (A) 0.8 k/uL (1.0-4.8); Lymphocytes % (A) 9 %; MCH 33.9 pg (25.0-35.0); MCHC 32.3 g/dL (31.0-37.0); MCV 104.8 fL (80.0-100.0); Macrocytosis Slight; Mean Platelet Volume 11.5; Monocytes # (A) 0.7 k/uL (0-1.0); Monocytes % (A) 8 %; Neutrophils # (A) 7.6 k/uL (1.3-7.7); Neutrophils % (A) 80 %; Platelet Count 219 k/uL (150-450); RBC 2.84 m/uL (4.30-5.90); RDW 13.3 % (11.5-15.5); WBC 9.5 k/uL (3.8-10.6)
[2023-08-20 08:40] LABS: African American GFR (CKD) 54 (>60 ml/min/1.73 sqM); Anion Gap 10 mmol/L; Blood Urea Nitrogen 34 mg/dL (9-20); Calcium 7.8 mg/dL (8.4-10.2); Carbon Dioxide 17 mmol/L (22-30); Chloride 105 mmol/L (98-107); Glucose 121 mg/dL (74-99); Non-African American GFR(CKD) 46 (>60 ml/min/1.73 sqM); Sodium 132 mmol/L (137-145)
[2023-08-20 08:45] LABS: Potassium 5.4 mmol/L (3.5-5.1)
[2023-08-20] MEDS ORDERED: FUROSEMIDE 10 MG/ML 4 ML VIAL IV SCH (09:00)
[2023-08-20] MEDS: ATORVASTATIN 80 MG TAB PO SCH (09:42)
[2023-08-20] MEDS: metFORMIN 500 MG TAB PO SCH ×2 (09:42→21:19)
[2023-08-20] MEDS: amLODIPine 10 MG TAB PO SCH (09:42)
[2023-08-20] MEDS: METOPROLOL TARTRATE 50 MG TAB PO SCH ×2 (09:42→21:19)
[2023-08-20] MEDS: ASPIRIN 81 MG PO SCH (09:42)
[2023-08-20] MEDS: APIXABAN 5 MG TAB PO SCH ×2 (09:42→21:19)
[2023-08-20] MEDS: hydrALAZINE HCL 50 MG TAB PO SCH (09:42)
[2023-08-20] MEDS: NON FORMULARY DRUG (Liraglutide [Victoza 3-Pak] 0.6 MG/0.1 ML Ml) SQ SCH (10:08)
--- NOTE | 2023-08-20 11:27 | P.PN ---
Subjective HISTORY OF PRESENT ILLNESS: This is a 73-year-old male patient of Dr. 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 Patient had a recent hospitalization and discharge on 08/10. He was seen by cardiology at that time for new onset of A. fib with RVR and was started on eliquis and Coreg was changed to metoprolol tartrate. Patient was also treated at that time for acute kidney injury with a peak creatinine of 7.4 secondary to hypotension, medications and right-sided hydronephrosis. Patient states that when he left the hospital, he had left arm swelling and now he has edema to both lower legs and arms along with shortness of breath, dyspnea on exertion, cough with clear phlegm production, chronic chills without fever. He denies orthopnea and denies PND. Patient also complains of significant scrotal and penile edema. We have been asked to evaluate the patient for heart failure. Patient is status post 1 dose of IV Lasix 40 mg. Patient states he has not urinated very much. Bladder scans have been performed on 2 occasions less than 300 mL. Patient also found to have severe hypothyroidism started on levothyroxine 25 g daily. EKG reveals sinus rhythm, telemetry sinus rhythm at 90 bpm Chest xray cardiomegaly with pulmonary vascular congestion and trace right pleural effusion. Findings suggestive of CHF exacerbation. Lower extremity ultrasound negative for DVT bilaterally Left UE US + DVT WBC 11.7, hemoglobin 11.1, platelet count 260. INR 1.1. Sodium 136, potassium 5. or, chloride 108, CO2 17, BUN 23 creatinine 1.31. Blood sugar 178. ALT 51, alkaline phosphatase 176, proBNP 5360. TSH 18.4, free T4 0.65. Current home cardiac medications include amlodipine 10 mg daily, eliquis 5 mg twice daily, aspirin 81 mg daily, Lipitor 80 mg daily, hydralazine 50 mg 4 times daily, Lopressor 50 mg twice daily Echocardiogram performed 08/06/2023 revealed preserved LV systolic function 50- 55%, mild inferior septal hypokinesis. Cardiac catheterization history: July 2019 revealing critical disease involving the proximal and mid RCA, intermediate to severe disease involving the left circumflex, intermediate disease involving the ramus intermedius, and mild disease involving the LAD. Patient underwent stenting of the mid and proximal RCA. 08/19 Patient seen and examined. Patient states he feels worse today with increasing cough, increasing wheeze and feeling more short of breath. Denies any chest pain or pressure. He admits to good urine output. Creatinine mildly increased up to 1.6. 08/20/2023 Patient examined this morning at the bedside. Patient denies chest pain or pressure. He reports improvement in his shortness of breath. He continues to report a cough. He remains on IV Lasix. Telemetry reveals sinus mechanism with heart rate in the 70s. Vital signs are stable. Blood pressure on the higher side this morning with a reading of 176/71. PHYSICAL EXAM: VITAL SIGNS: Reviewed. GENERAL: Well-developed in no acute distress. NECK: Supple. No JVD or thyromegaly LUNGS: Respirations even and unlabored. Lungs essentially clear to auscultation bilaterally. HEART: Regular rate and rhythm. S1 and S2 heard. Systolic murmur noted. EXTREMITIES: Normal range of motion. No clubbing or cyanosis. Peripheral pulses intact. Trace bilateral lower extremity edema ASSESSMENT: Acute on chronic respiratory failure possible heart failure component however coughing and wheezing yesterday, appears more respiratory Acute HFpEF Paroxysmal atrial fibrillation Neck mass non-small cell carcinoma (oncology on consult) LUE DVT Hypothyroidism Coronary artery disease with previous stenting Valvular heart disease including moderate MR Hypertension Hyperlipidemia Diabetes, uncontrolled, hemoglobin A1c 9.3 Carotid atherosclerosis History of bladder cancer with previous chemo and radiation PLAN: Continue current cardiac medications Discontinue IV Lasix. Begin oral Lasix 40 mg daily Increase hydralazine to 75 mg 4 times a day for optimal blood pressure control Consult pulmonary for evaluation Further recommendations pending patient's course Nurse practitioner note has been reviewed by physician. Signing provider agrees with the documented findings, assessment, and plan of care. Objective - Vital Signs Vital signs: Vital Signs Temp 98.4 F 08/20/23 04:00 Pulse 80 08/20/23 04:00 Resp 17 08/20/23 04:00 BP 153/72 08/20/23 04:00 Pulse Ox 93 L 08/20/23 04:00 FiO2 Intake & Output 08/19/23 08/20/23 08/20/23 18:59 06:59 18:59 Intake Total 480 Output Total 325 280 Balance 155 -280 Weight 90.3 kg Intake: Oral 480 Output: Urine 325 280 Other: Voiding Method Urinal Urinal # Voids 1 # Bowel Movements 1 - Labs CBC & Chem 7: 08/20/23 07:06 08/20/23 07:06 Labs: Abnormal Lab Results - Last 24 Hours (Table) 08/19/23 08/19/23 08/19/23 Range/Units 09:14 09:14 11:32 RBC 3.08 L (4.30-5.90) m/uL Hgb 10.6 L (13.0-17.5) gm/dL Hct 32.4 L (39.0-53.0) % MCV 105.0 H (80.0-100.0) fL Neutrophils # 8.4 H (1.3-7.7) k/uL Lymphocytes # 0.8 L (1.0-4.8) k/uL Sodium 134 L (137-145) mmol/L Potassium (3.5-5.1) mmol/L Carbon Dioxide 20 L (22-30) mmol/L BUN 32 H (9-20) mg/dL Creatinine 1.61 H (0.66-1.25) mg/dL Glucose 124 H (74-99) mg/dL POC Glucose (mg/dL) 194 H (70-110) mg/dL Calcium 8.0 L (8.4-10.2) mg/dL 08/19/23 08/19/23 08/20/23 Range/Units 16:27 20:10 06:20 RBC (4.30-5.90) m/uL Hgb (13.0-17.5) gm/dL Hct (39.0-53.0) % MCV (80.0-100.0) fL Neutrophils # (1.3-7.7) k/uL Lymphocytes # (1.0-4.8) k/uL Sodium (137-145) mmol/L Potassium (3.5-5.1) mmol/L Carbon Dioxide (22-30) mmol/L BUN (9-20) mg/dL Creatinine (0.66-1.25) mg/dL Glucose (74-99) mg/dL POC Glucose (mg/dL) 151 H 248 H 135 H (70-110) mg/dL Calcium (8.4-10.2) mg/dL 08/20/23 08/20/23 Range/Units 07:06 07:06 RBC 2.84 L (4.30-5.90) m/uL Hgb 9.6 L (13.0-17.5) gm/dL Hct 29.7 L (39.0-53.0) % MCV 104.8 H (80.0-100.0) fL Neutrophils # (1.3-7.7) k/uL Lymphocytes # 0.8 L (1.0-4.8) k/uL Sodium 132 L (137-145) mmol/L Potassium 5.4 H (3.5-5.1) mmol/L Carbon Dioxide 17 L (22-30) mmol/L BUN 34 H (9-20) mg/dL Creatinine 1.50 H (0.66-1.25) mg/dL Glucose 121 H (74-99) mg/dL POC Glucose (mg/dL) (70-110) mg/dL Calcium 7.8 L (8.4-10.2) mg/dL
[2023-08-20 11:35] LABS: Glucose,Whole Blood 183 mg/dL (70-110)
[2023-08-20] MEDS: CALCIUM CARB-VIT D 500 MG-5 MCG TAB PO SCH (12:18)
[2023-08-20] MEDS: MAGNESIUM OXIDE 400 MG TAB PO SCH (12:18)
--- NOTE | 2023-08-20 13:45 | P.PN ---
Subjective Progress Note Date: 08/20/23 Principal diagnosis: DVT, CHF At today's visit patient is resting comfortable in bedside chair. Patient reports improvement in symptoms since admission. Persisting left upper ex tremity edema, no changes. Continues on Lasix Objective - Vital Signs Vital signs: Vital Signs Temp 98.5 F 08/20/23 12:10 Pulse 69 08/20/23 12:10 Resp 18 08/20/23 12:10 BP 142/61 08/20/23 12:10 Pulse Ox 94 L 08/20/23 12:10 FiO2 Intake & Output 08/19/23 08/20/23 08/20/23 18:59 06:59 18:59 Intake Total 480 220 Output Total 325 280 650 Balance 155 -280 -430 Weight 90.3 kg Intake: Oral 480 220 Output: Urine 325 280 650 Other: Voiding Method Urinal Urinal Urinal # Voids 1 1 # Bowel Movements 1 1 - Constitutional General appearance: Present: no acute distress - EENT Eyes: Present: anicteric sclerae, EOMI ENT: Present: hearing grossly normal - Respiratory Details: breathing even and unlabored - Cardiovascular Details: skin warm and dry - Peripheral edema leg Peripheral Edema: right: 2+, left: 1+, Pitting, Other (LUE edema) - Integumentary Integumentary: Absent: cyanotic - Musculoskeletal Musculoskeletal: Present: generalized weakness - Psychiatric Psychiatric: Present: A&O x's 3, appropriate affect, intact judgment & insight - Labs CBC & Chem 7: 08/20/23 07:06 08/20/23 07:06 Labs: Abnormal Lab Results - Last 24 Hours (Table) 08/19/23 08/19/23 08/20/23 Range/Units 16:27 20:10 06:20 RBC (4.30-5.90) m/uL Hgb (13.0-17.5) gm/dL Hct (39.0-53.0) % MCV (80.0-100.0) fL Lymphocytes # (1.0-4.8) k/uL Sodium (137-145) mmol/L Potassium (3.5-5.1) mmol/L Carbon Dioxide (22-30) mmol/L BUN (9-20) mg/dL Creatinine (0.66-1.25) mg/dL Glucose (74-99) mg/dL POC Glucose (mg/dL) 151 H 248 H 135 H (70-110) mg/dL Calcium (8.4-10.2) mg/dL 08/20/23 08/20/23 08/20/23 Range/Units 07:06 07:06 11:30 RBC 2.84 L (4.30-5.90) m/uL Hgb 9.6 L (13.0-17.5) gm/dL Hct 29.7 L (39.0-53.0) % MCV 104.8 H (80.0-100.0) fL Lymphocytes # 0.8 L (1.0-4.8) k/uL Sodium 132 L (137-145) mmol/L Potassium 5.4 H (3.5-5.1) mmol/L Carbon Dioxide 17 L (22-30) mmol/L BUN 34 H (9-20) mg/dL Creatinine 1.50 H (0.66-1.25) mg/dL Glucose 121 H (74-99) mg/dL POC Glucose (mg/dL) 183 H (70-110) mg/dL Calcium 7.8 L (8.4-10.2) mg/dL Assessment and Plan (1) New onset of congestive heart failure Current Visit: Yes Status: Acute Priority: High Code(s): I50.9 - HEART FAILURE, UNSPECIFIED SNOMED Code(s): 20122733 (2) Thrombosis of left internal jugular vein Current Visit: Yes Status: Acute Priority: High Code(s): I82.C12 - ACUTE EMBOLISM AND THROMBOSIS OF LEFT INTERNAL JUGULAR VEIN SNOMED Code(s): 000102164 (3) Metastatic urothelial carcinoma Current Visit: Yes Status: Acute Priority: High Code(s): C79.10 - SEC ONDARY MALIGNANT NEOPLASM OF UNSPECIFIED URINARY ORGANS SNOMED Code(s): 9 9816162 Plan: Metastatic urothelial carcinoma: -Full history as stated in HPI -Completed treatment with concurrent chemo/RT in 06/2020. Was following up for observation in clinic through 11/2021 with no evidence of recurrence. Stopped f/u with urology in February 2022 due to insurance reasons, and has not had f/u since -Progressing left neck mass. Biopsy of the lt neck mass revealed metastatic non- small cell carcinoma consistent with metastatic high-grade urothelial carcinoma. Results were discussed with patient and spouse -Will reschedule PET CT, and pending hospitalization may have to reschedule clinic f/u with Dr. Banda DVT: -Doppler of left upper extremity was positive for nonocclusive deep vein thrombosis within the internal jugular vein and superficial thrombus within the left cephalic vein. Dopplers of bilateral lower extremities were negative for DVT. -Upon review of records patient was started on heparin and transitioned to Eliquis during last admission due to new onset A-fib with RVR, and has continued on Eliquis since discharge. LUE edema has been persisting since last admission with no changes in arm swelling, however, there were no dopplers obtained at that time. Patient has continued on Eliquis since discharge. -At this time patient can continue on Eliquis, as it is likely thrombus was already present when started on anticoagulation. If additional thrombus presents while anticoagulated with Eliquis will have to switch anticoagulant CHF: -Continues on lasix -IM and cardiology following
[2023-08-20] MEDS: hydrALAZINE HCL 25 MG TAB PO SCH ×3 (15:41→21:19)
--- NOTE | 2023-08-20 16:03 | P.CNPUL ---
History of Present Illness Consult date: 08/20/23 Requesting physician: Neal Chou Reason for consult: dyspnea Chief complaint: Left arm swelling lower extremity swelling shortness of breath on exertion History of present illness: This is a 73-year-old white male, familiar to my service, I saw this patient and his last admission to the hospital a few weeks ago, and the patient was discharged on 08/10. Patient is known to have history of bladder cancer, he had previous chemo and radiation treatment he also had history of paroxysmal atrial fibrillation, and he was discovered to have on the last admission a left neck mass, I recommended ENT evaluation, patient underwent needle biopsy of the mass, and came back non-small cell carcinoma consistent with urothelial carcinoma. Patient was last admitted a few weeks ago with atrial fibrillation and RVR, and he was discharged home on eliquis and his Coreg was changed to metoprolol. On t he last admission he had acute kidney injury with hydronephrosis on the right side, and he also had swelling of the left upper extremity now he is developing swelling of the lower extremities as well as dyspnea on exertion. His chest x- ray showed no evidence of congestive heart failure, patient does have significant fluid retention, and I was asked to see him on consultation. On admission the patient received Lasix and his chest x-ray showed cardiomegaly but no evidence of congestive heart failure and no evidence of pleural effusions. Patient had a venous Doppler on this admission and he was found to have superficial thrombosis noted in the left cephalic vein. And there was nonocclusive deep vein thromboses within the internal jugular vein. No CT angiogram of the chest was done although the patient does have a very likely possibility of pulmonary embolism considering his venous thromboses as noted above. Nonetheless the patient is on anticoagulation therapy. Patient is maintained on eliquis 5 mg by mouth twice a day since his last admission. Labs today showed W CR 9.5 hemoglobin 9.6 electrolytes are normal BUN is 34 creatinine 1.50 Review of Systems CONSTITUTIONAL: No weight loss no fever no chills HEENT: Denies blurred vision, vision changes, or eye pain. Denies hemoptysis CARDIOVASCULAR: As noted in HPI RESPIRATORY: As noted in HPITROINTESTINAL: Denies abdominal pain. Denies nausea or vomiting. HEMATOLOGIC: Denies bleeding disorders. EXTREMITIES: Left upper and bilateral lower extremity swelling GENITOURINAR: Negative Y: Denies any blood in urine. + scrotal edema SKIN: Denies pruitis. Denies rash. Past Medical History Past Medical History: Coronary Artery Disease (CAD), Cancer, Diabetes Mellitus, Hyperlipidemia, Hypertension, Myocardial Infarction ([place]), Osteoarthritis (OA) Additional Past Medical History / Comment(s): Bladder cancer stage with treatment, in remission since 2020. IDDM type II, post polio syndrome,leg length discrepancy, bronchitis, chronic low back pain. Last Myocardial Infarction Date:: 07/23/19 History of Any Multi-Drug Resistant Organisms: None Reported Past Surgical History: Heart Catheterization With Stent, Orthopedic Surgery Additional Past Surgical History / Comment(s): Cystoscopy, TURBT x2, closure of patent urachus bladder tumor as , R leg surgery d/t polio-lengthening, cardiac stents 2018; Right hip surgery 11/03/2022 Past Anesthesia/Blood Transfusion Reactions: No Reported Reaction Date of Last Stent Placement:: 07/23/19 Past Psychological History: No Psychological Hx Reported Additional Psychological History / Comment(s): Pt resides with his spouse. He is independent. He just started ambulating with a cane or walker Smoking Status: Former smoker Past Alcohol Use History: None Reported Additional Past Alcohol Use History / Comment(s): Pt started smoking in 1968 and quit 07/21/19. Prior ETOH abuse-pt states he hasnt had alcohol in months Past Drug Use History: None Reported - Past Family History Father History Unknown: Yes Mother Additional Family Medical History / Comment(s): Mother of in a MVA when pt was 15 yrs old. Brother(s) Additional Family Medical History / Comment(s): Pt has one brother who of a bowel problem and another brother that of a ruptured aneurysm. Medications and Allergies Home Medications Medication Instructions Recorded Confirmed Type Aspirin 81 mg PO DAILY #90 chewable 07/25/19 08/17/23 Rx Atorvastatin [Lipitor] 80 mg PO DAILY 05/13/20 08/17/23 History Liraglutide [Victoza 3-Sam] 1.8 mg SQ DAILY 08/04/23 08/17/23 History metFORMIN HCL ER [Glucophage XR] 500 mg PO BID 08/04/23 08/17/23 History Apixaban [Eliquis] 5 mg PO BID #60 tab 08/10/23 08/17/23 Rx Magnesium Oxide [Mag-Ox] 400 mg PO DAILY #30 tab 08/10/23 08/17/23 Rx Metoprolol Tartrate [Lopressor] 50 mg PO BID #60 tab 08/10/23 08/17/23 Rx amLODIPine [Norvasc] 10 mg PO DAILY #30 tab 08/10/23 08/17/23 Rx hydrALAZINE HCL [Apresoline] 50 mg PO QID #120 tab 08/10/23 08/17/23 Rx Albuterol Sulfate [Albuterol 1 puff INHALATION RT-Q4H PRN 08/17/23 08/17/23 History Sulfate Hfa] Calcium Carb-Vit D 500Mg-5Mcg 1 tab PO DAILY 08/17/23 08/17/23 History [Oscal 500+D 5 Mcg (200 Iu)] HYDROcodone/APAP 5-325MG [[place] 1 tab PO Q6H PRN 08/17/23 08/17/23 History 5-325] Levofloxacin [Levaquin] See Taper PO DAILY 08/17/23 08/17/23 History metroNIDAZOLE [Flagyl] 500 mg PO TID 08/17/23 08/17/23 History Allergies Allergy/AdvReac Type Severity Reaction Status Date / Time No Known Allergies Allergy Verified 08/17/23 12:11 Physical Exam Vitals: Vital Signs Temp Pulse Resp BP Pulse Ox 08/20/23 14:00 69 18 08/20/23 12:10 98.5 F 69 18 142/61 94 L 08/20/23 08:00 98.3 F 85 17 176/71 96 08/20/23 04:00 98.4 F 80 17 153/72 93 L 08/20/23 02:00 76 19 08/20/23 00:00 98.5 F 76 19 158/67 96 08/19/23 20:00 98.5 F 85 18 165/69 96 08/19/23 16:15 83 18 114/63 96 Intake and Output 08/20/23 08/20/23 08/20/23 06:59 14:59 22:59 Intake Total 220 Output Total 280 650 Balance -280 -430 Intake: Oral 220 Output: Urine 280 650 Other: Voiding Method Urinal Urinal # Voids 1 1 # Bowel Movements 1 1 Weight 90.3 kg Physical Exam: Revealed a 73-year-old white male in no distress, on room air, O2 saturation 96% HEENT:[Neck is supple.] [No neck masses.] [No thyromegaly.] [No JVD.] Chest: [Clear throughout, no crackles, no rhonchi, no wheezes.] Cardiac Exam: [Normal S1 and S2, no S3 gallop, 2/6 systolic murmur thought the precordium Abdomen: [Soft, nontender, no megaly, no rebound, no guarding, normal bowel sounds.] Extremities: 1+ bilateral lower extremities edema and left upper extremity edema is noted. Neurological Exam: [No focal neurologic deficit.] Alert oriented 3 Psychiatric: Normal mood, affect and normal mental status examination Skin: No rashes Results - Laboratory Findings CBC and BMP: 08/20/23 07:06 08/20/23 07:06 PT/INR, D-dimer PT 11.5 sec (10.0-12.5) 08/17/23 10:13 INR 1.1 (<1.2) 08/17/23 10:13 Abnormal lab findings: Abnormal Labs 08/17/23 08/17/23 08/18/23 10:13 10:13 11:50 WBC 11.7 H RBC 3.18 L Hgb 11.1 L Hct 33.6 L MCV 105.5 H Neutrophils # 10.2 H Lymphocytes # 0.8 L Sodium 136 L Potassium 5.4 H Chloride 108 H Carbon Dioxide 17 L BUN 23 H Creatinine 1.31 H Glucose 178 H POC Glucose (mg/dL) 159 H Calcium 8.0 L Magnesium 1.2 L ALT 51 H Alkaline Phosphatase 176 H Total Protein 6.0 L Albumin 3.1 L TSH 18.400 H Free T4 0.65 L 08/18/23 08/18/23 08/19/23 16:20 20:32 09:14 WBC RBC Hgb Hct MCV Neutrophils # Lymphocytes # Sodium 134 L Potassium Chloride Carbon Dioxide 20 L BUN 32 H Creatinine 1.61 H Glucose 124 H POC Glucose (mg/dL) 165 H 253 H Calcium 8.0 L Magnesium ALT Alkaline Phosphatase Total Protein Albumin TSH Free T4 08/19/23 08/19/23 08/19/23 09:14 11:32 16:27 WBC RBC 3.08 L Hgb 10.6 L Hct 32.4 L MCV 105.0 H Neutrophils # 8.4 H Lymphocytes # 0.8 L Sodium Potassium Chloride Carbon Dioxide BUN Creatinine Glucose POC Glucose (mg/dL) 194 H 151 H Calcium Magnesium ALT Alkaline Phosphatase Total Protein Albumin TSH Free T4 08/19/23 08/20/23 08/20/23 20:10 06:20 07:06 WBC RBC Hgb Hct MCV Neutrophils # Lymphocytes # Sodium 132 L Potassium 5.4 H Chloride Carbon Dioxide 17 L BUN 34 H Creatinine 1.50 H Glucose 121 H POC Glucose (mg/dL) 248 H 135 H Calcium 7.8 L Magnesium ALT Alkaline Phosphatase Total Protein Albumin TSH Free T4 08/20/23 08/20/23 07:06 11:30 WBC RBC 2.84 L Hgb 9.6 L Hct 29.7 L MCV 104.8 H Neutrophils # Lymphocytes # 0.8 L Sodium Potassium Chloride Carbon Dioxide BUN Creatinine Glucose POC Glucose (mg/dL) 183 H Calcium Magnesium ALT Alkaline Phosphatase Total Protein Albumin TSH Free T4 - Diagnostic Findings Chest x-ray: image reviewed (Chest x-ray showed no evidence of congestive heart failure, no pneumonia.) Assessment and Plan Assessment: Impression: Shortness of breath, exact etiology is not clear could be related to his paroxysmal atrial fibrillation could also be related to thromboembolic disease/pulmonary embolism, could also be related to his moderate mitral regurgitation Left upper extremity deep vein thrombosis Metastatic urothelial carcinoma to the neck Hypothyroidism Coronary artery disease and previous stenting Valvular heart disease/moderate mitral regurgitation Type 2 diabetes poorly controlled Dyslipidemia Benign essential hypertension History of bladder cancer and previous chemo and radiation treatment Recommendation: Continue anticoagulation therapy Continue diuretics Continue to monitor daily I's and O's and electrolytes as well as renal profile Consider CT angiogram of the chest if necessary however the findings were not changing the present treatment We will continue to follow Time with Patient: Greater than 30
[2023-08-20 16:40] LABS: Glucose,Whole Blood 173 mg/dL (70-110)
[2023-08-20] MEDS ORDERED: SODIUM POLYSTYRENE SULFONATE 15 GM/60 ML BOTTLE PO STA (19:32)
--- NOTE | 2023-08-20 19:44 | P.PN ---
Progress Note - Text Progress Note Date: 08/20/23 Pleasant 72-year-old patient who follows with Dr. Johnny Rubio./Mid-level provider-Kareen. Chronic stable medical conditions include CAD with stent in 2018, diabetes, hypertension, hyperlipidemia, osteoporosis, bladder cancer with treatment in remission and cystoscopy 2020, patient had right hip surgery in October of this year now does use a walker when he goes outside. Otherwise a cane. Patient was recently discharged from the hospital 08/04-08/14 left sided neck mass concerning for malignancy Presents today because of increasing swelling of arms and legs. Also patient complaining of from little shortness of breath occasional coughing but no chest pain He says he cannot go for his urine but he denies any GI problems No headache dizziness weakness numbness. he denies smoking, Alcohol or illicit tracts, He was not discharged on Lasix Vitals stable Labs are showing mild leukocytosis of 11.7, last time he was discharged his WBCs were 18.2. Hemoglobin 11.1, rest of CBC, INR is unremarkable. Creatinine 1.3 which is at baseline, potassium 5.4, magnesium 1.2. TSH is high at 18 and free T4 is low at 0.65 EKG showing normal sinus rhythm at [address]-T changes. Mild ST depression on the sixth Chest x-ray: Cardiomegaly with pulmonary vascular congestion and right pleural effusion suggestive of CHF. Venous Doppler: Superficial thrombus seen within the left cephalic vein. Nonocclusive deep venous thrombosis seen in the internal jugular vein 08/18/2023 Patient sitting up in bed, states that his breathing is slightly better, he can lie flat as he describes. Patient is not working at baseline, confirmed. The at bedside. History the have significant swelling of arms and legs. Patient was started on IV Lasix 40 mg twice daily and he continued on home dose of liquids 5 mg. Also patient is started on small dose of levothyroxine 25 g. 08/19/2023 Patient's no breathing difficulties, history and embedded and not walking, his main problem is the swelling. Patient currently on IV Lasix twice daily, he says he did not urinate and much. We'll discuss with the staff to check bladder scan. He was started on levothyroxine 25 g. Oncology team on the case, continue with Eliquis for his upper extremity DVT. Also present college patient will require PET CT as an outpatient and then follow up with also 08/20/2023: Up in a recliner. Bouts of coughing. Clear sputum. No fever no chills. Breathing better. Eating well. at the bedside. We will apply sleeve to the left upper extremity Active Medications Acetaminophen (Acetaminophen Tab 325 Mg Tab) 650 mg PO Q6HR PRN PRN Reason: Mild Pain or Fever > 100.5 Hydrocodone Bitart/Acetaminophen (Hydrocodone/Apap 5-325mg 1 Each Tab) 1 each PO Q6H PRN PRN Reason: Pain Albuterol Sulfate (Albuterol Nebulized 2.5 Mg/3 Ml) 2.5 mg INHALATION RT-Q4H PRN PRN Reason: Shortness Of Breath Last Admin: 08/19/23 13:37 Dose: 2.5 mg Amlodipine Besylate (Amlodipine 10 Mg Tab) 10 mg PO DAILY [facility] Last Admin: 08/20/23 09:42 Dose: 10 mg Apixaban (Apixaban 5 Mg Tab) 5 mg PO BID [facility]; Protocol Last Admin: 08/20/23 09:42 Dose: 5 mg Aspirin (Aspirin 81 Mg) 81 mg PO DAILY [facility] Last Admin: 08/20/23 09:42 Dose: 81 mg Atorvastatin Calcium (Atorvastatin 80 Mg Tab) 80 mg PO DAILY [facility] Last Admin: 08/20/23 09:42 Dose: 80 mg Benzonatate (Benzonatate 100 Mg Cap) 100 mg PO TID PRN PRN Reason: Cough Last Admin: 08/19/23 13:22 Dose: 100 mg Calcium Carbonate (Calcium Carb-Vit D 500 Mg-5 Mcg Tab) 1 each PO DAILY [facility] Last Admin: 08/20/23 12:18 Dose: 1 each Furosemide (Furosemide 40 Mg Tab) 40 mg PO DAILY [facility] Guaifenesin (Guaifenesin Syrup 100mg/5ml 200 Mg/10 Ml Cup) 200 mg PO Q6HR PRN PRN Reason: Cough Last Admin: 08/19/23 20:47 Dose: 200 mg Hydralazine HCl (Hydralazine Hcl 25 Mg Tab) 75 mg PO QID [facility] Last Admin: 08/20/23 17:24 Dose: Not Given Insulin Aspart (Insulin Aspart (Novolog) 100 Unit/Ml Vial) 0 unit SQ ACHS [facility]; Protocol Last Admin: 08/20/23 17:28 Dose: 2 unit Levothyroxine Sodium (Levothyroxine 25 Mcg Tab) 25 mcg PO DAILY@0630 [facility] Last Admin: 08/20/23 06:34 Dose: 25 mcg Magnesium Oxide (Magnesium Oxide 400 Mg Tab) 400 mg PO DAILY [facility] Last Admin: 08/20/23 12:18 Dose: 400 mg Metformin HCl (Metformin 500 Mg Tab) 500 mg PO BID [facility] Last Admin: 08/20/23 09:42 Dose: 500 mg Metoprolol Tartrate (Metoprolol Tartrate 50 Mg Tab) 50 mg PO BID [facility] Last Admin: 08/20/23 09:42 Dose: 50 mg Naloxone HCl (Naloxone 0.4 Mg/Ml 1 Ml Vial) 0.2 mg IV Q2M PRN PRN Reason: Opioid Reversal Non-Formulary Medication (Liraglutide [Victoza 3-Sam]) 1.8 mg SQ DAILY [facility] Last Admin: 08/20/23 10:08 Dose: Not Given Ondansetron HCl (Ondansetron 4 Mg/2 Ml Vial) 4 mg IVP Q8HR PRN PRN Reason: Nausea And Vomiting Social history: Used to work in a [employer] . 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 Patient Smoked for 50 Years Stopped in 2019. Also Is Drinking Excessive Alcohol up to 2019. Physical examination: VITAL SIGNS: 98.5, 69, 18, 142/61, 94% room air GENERAL: Up in a recliner, comfortable EYES: Pupils equal. Conjunctiva normal. HEENT: External appearance of nose and ears normal, oral cavity grossly normal. NECK: JVD not raised; masses not palpable. Hard mass of the left upper neck going to the mandible. Hard. HEART: Heart sounds irregular; no edema. LUNGS: Respiratory rate normal; decreased breath sounds. ABDOMEN: Soft, nontender, liver spleen not palpable, no masses palpable. PSYCH: Alert and oriented x3; mood and affect normal EXTREMITY: Left upper extremity swelling compared to the right MUSCULOSKELETAL:No Clubbing/cyanosis;muscles-grossly intact. OA INVESTIGATIONS, reviewed in the clinical context: August 20: White count 9.5 hemoglobin 9.6 (219 potassium 5.4 BUN 34 creatinine 1.50 Ultrasound Doppler of the left upper extremity: Non occlusive DVT in the eye JLaura Yu Superficial thrombosis within the left cephalic vein. . Recent investigations: 2-D echocardiogram: Preserved LV function. Mild inferior septal hypokinesis. CT soft tissue neck without contrast: Enlargement of the left parotid gland with surrounding the inflammatory attenuation as well as skeletal thinking. Also inflammatory thickening of the left sternocleidomastoid musculature. Surroundi ng reactive adenopathy. No obstructing Loss. CT chest abdomen pelvis: Small bowel guarded to 3 cm. Mild right-sided hydronephrosis. Gallstones Chest x-ray film personally reviewed by me-hyperinflation. Some pulmonary artery prominence EKG tracing personally reviewed by me-possible ectopic atrial rhythm. Ultrasound kidney: Mild right-sided hydronephrosis. Assessment: -Acute congestive heart exacerbation from diastolic dysfunction 50-55%.: Better Changed over to oral Lasix Followed by cardiology -Acute COPD exacerbation and a prior smoker: New diagnosis DuoNeb 4 times a day. Nebulized Pulmicort 1 mg twice a day. Paroxysmal atrial fibrillation - sinus rhythm Lopressor 50 mg twice a day Eliquis -Essential hypertension Lopressor 50 mg twice a day. Amlodipine 10 mg a day Hydralazine 75 mg 4 times a day -Mild hydronephrosis Being followed by urology -Metastatic urothelial carcinoma: -Full history as stated in HPI -Completed treatment with concurrent chemo/RT in 06/2020. Was following up for observation in clinic through 11/2021 with no evidence of recurrence. Stopped f/u with urology in February 2022 due to insurance reasons, and has not had f/u since -Progressing left neck mass. Biopsy of the lt neck mass revealed metastatic non- small cell carcinoma consistent with metastatic high-grade urothelial carcinoma. Results were discussed with patient and spouse -Will reschedule PET CT, and pending hospitalization may have to reschedule clinic f/u with Dr. Banda -Hyperkalemia from underlying CK D Kayexalate -Non occlusive DVT in the left internal jugular vein. Superficial thrombosis within the left cephalic vein. Eliquis Sleeve left upper extremity - metabolic acidosis from renal failure: Sodium bicarbonate -Hypocalcemia Os-Car vitamin D -Left upper neck mass. Metastatic non-small cell carcinoma consistent with metastatic high-grade urothelial carcinoma Follow-up with Dr. Cardoza from oncology -CAD with stent 2019 Aspirin. Coreg -Hyperlipidemia Lipitor -Diabetes mellitus type 2 on oral hypoglycemic Follow Accu-Cheks and sliding scale Victoza. Metformin. -Full code. [Discussed with patient and present.] Discussed with patient and . Start DuoNeb, Pulmicort. Apply sleeve to the left upper extremity. Kayexalate.
[2023-08-20 20:27] LABS: Glucose,Whole Blood 243 mg/dL (70-110)
[2023-08-20] MEDS: SODIUM BICARBONATE TAB 650 MG TAB PO SCH (21:19)
[2023-08-20] MEDS: IPRATROPIUM-ALBUTEROL 3 ML NEB INHALATION SCH (21:31)
[2023-08-20] MEDS: BUDESONIDE 1 MG/2 ML NEBU INHALATION SCH (21:33)
[2023-08-21 06:16] LABS: Glucose,Whole Blood 147 mg/dL (70-110)
[2023-08-21] MEDS: INSULIN ASPART (NovoLOG) 100 UNIT/ML VIAL SQ SCH ×4 (06:21→21:10)
[2023-08-21] MEDS: LEVOTHYROXINE 25 MCG TAB PO SCH (06:24)
[2023-08-21 07:58] LABS: African American GFR (CKD) 60 (>60 ml/min/1.73 sqM); Anion Gap 9 mmol/L; Blood Urea Nitrogen 31 mg/dL (9-20); Calcium 7.8 mg/dL (8.4-10.2); Carbon Dioxide 20 mmol/L (22-30); Chloride 105 mmol/L (98-107); Glucose 128 mg/dL (74-99); Non-African American GFR(CKD) 52 (>60 ml/min/1.73 sqM); Potassium 4.5 mmol/L (3.5-5.1); Sodium 134 mmol/L (137-145)
[2023-08-21] MEDS: IPRATROPIUM-ALBUTEROL 3 ML NEB INHALATION SCH ×4 (09:05→19:36)
[2023-08-21] MEDS: BUDESONIDE 1 MG/2 ML NEBU INHALATION SCH ×2 (09:06→19:36)
[2023-08-21] MEDS: NON FORMULARY DRUG (Liraglutide [Victoza 3-Pak] 0.6 MG/0.1 ML Ml) SQ SCH (10:39)
[2023-08-21] MEDS: SODIUM BICARBONATE TAB 650 MG TAB PO SCH ×2 (10:50→21:10)
[2023-08-21] MEDS: ASPIRIN 81 MG PO SCH (10:51)
[2023-08-21] MEDS: metFORMIN 500 MG TAB PO SCH ×2 (10:51→21:10)
[2023-08-21] MEDS: FUROSEMIDE 40 MG TAB PO SCH (10:51)
[2023-08-21] MEDS: hydrALAZINE HCL 25 MG TAB PO SCH ×4 (10:52→21:12)
[2023-08-21] MEDS: MAGNESIUM OXIDE 400 MG TAB PO SCH (10:53)
[2023-08-21] MEDS: amLODIPine 10 MG TAB PO SCH (10:53)
[2023-08-21] MEDS: APIXABAN 5 MG TAB PO SCH ×2 (10:53→21:10)
[2023-08-21] MEDS: ATORVASTATIN 80 MG TAB PO SCH (10:54)
[2023-08-21] MEDS: METOPROLOL TARTRATE 50 MG TAB PO SCH ×2 (10:58→21:10)
[2023-08-21] MEDS: CALCIUM CARB-VIT D 500 MG-5 MCG TAB PO SCH (11:16)
--- NOTE | 2023-08-21 11:34 | P.PN ---
Subjective HISTORY OF PRESENT ILLNESS: This is a 73-year-old male patient of Dr. 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 Patient had a recent hospitalization and discharge on 08/10. He was seen by cardiology at that time for new onset of A. fib with RVR and was started on eliquis and Coreg was changed to metoprolol tartrate. Patient was also treated at that time for acute kidney injury with a peak creatinine of 7.4 secondary to hypotension, medications and right-sided hydronephrosis. Patient states that when he left the hospital, he had left arm swelling and now he has edema to both lower legs and arms along with shortness of breath, dyspnea on exertion, cough with clear phlegm production, chronic chills without fever. He denies orthopnea and denies PND. Patient also complains of significant scrotal and penile edema. We have been asked to evaluate the patient for heart failure. Patient is status post 1 dose of IV Lasix 40 mg. Patient states he has not urinated very much. Bladder scans have been performed on 2 occasions less than 300 mL. Patient also found to have severe hypothyroidism started on levothyroxine 25 g daily. EKG reveals sinus rhythm, telemetry sinus rhythm at 90 bpm Chest xray cardiomegaly with pulmonary vascular congestion and trace right pleural effusion. Findings suggestive of CHF exacerbation. Lower extremity ultrasound negative for DVT bilaterally Left UE US + DVT WBC 11.7, hemoglobin 11.1, platelet count 260. INR 1.1. Sodium 136, potassium 5. or, chloride 108, CO2 17, BUN 23 creatinine 1.31. Blood sugar 178. ALT 51, alkaline phosphatase 176, proBNP 5360. TSH 18.4, free T4 0.65. Current home cardiac medications include amlodipine 10 mg daily, eliquis 5 mg twice daily, aspirin 81 mg daily, Lipitor 80 mg daily, hydralazine 50 mg 4 times daily, Lopressor 50 mg twice daily Echocardiogram performed 08/06/2023 revealed preserved LV systolic function 50- 55%, mild inferior septal hypokinesis. Cardiac catheterization history: July 2019 revealing critical disease involving the proximal and mid RCA, intermediate to severe disease involving the left circumflex, intermediate disease involving the ramus intermedius, and mild disease involving the LAD. Patient underwent stenting of the mid and proximal RCA. 08/19 Patient seen and examined. Patient states he feels worse today with increasing cough, increasing wheeze and feeling more short of breath. Denies any chest pain or pressure. He admits to good urine output. Creatinine mildly increased up to 1.6. 08/20/2023 Patient examined this morning at the bedside. Patient denies chest pain or pressure. He reports improvement in his shortness of breath. He continues to report a cough. He remains on IV Lasix. Telemetry reveals sinus mechanism with heart rate in the 70s. Vital signs are stable. Blood pressure on the higher side this morning with a reading of 176/71. 08/21/2023 Patient examined this morning at the bedside. patient currently denies chest pain or pressure. He reports improvement in his shortness of breath today. he continues to have a nonproductive cough. He remains on oral diuretics. Blood pressure is better controlled since increasing hydralazine yesterday. PHYSICAL EXAM: VITAL SIGNS: Reviewed. GENERAL: Well-developed in no acute distress. NECK: Supple. No JVD or thyromegaly LUNGS: Respirations even and unlabored. Lungs essentially clear to auscultation bilaterally. HEART: Regular rate and rhythm. S1 and S2 heard. Systolic murmur noted. EXTREMITIES: Normal range of motion. No clubbing or cyanosis. Peripheral pulses intact. Trace bilateral lower extremity edema ASSESSMENT: Acute on chronic respiratory failure possible heart failure component however coughing and wheezing yesterday, appears more respiratory Acute HFpEF Paroxysmal atrial fibrillation Neck mass non-small cell carcinoma (oncology on consult) LUE DVT Hypothyroidism Coronary artery disease with previous stenting Valvular heart disease including moderate MR Hypertension Hyperlipidemia Diabetes, uncontrolled, hemoglobin A1c 9.3 Carotid atherosclerosis History of bladder cancer with previous chemo and radiation PLAN: Continue current cardiac medications Patient is currently stable from a cardiac perspective with no further inpatient recommendations We will sign off. Please reconsult if needed. Nurse practitioner note has been reviewed by physician. Signing provider agrees with the documented findings, assessment, and plan of care. Objective - Vital Signs Vital signs: Vital Signs Temp 97.4 F L 08/20/23 19:57 Pulse 78 08/21/23 04:00 Resp 18 08/21/23 04:00 BP 125/60 08/21/23 04:00 Pulse Ox 95 08/21/23 04:00 FiO2 Intake & Output 08/20/23 08/21/23 08/21/23 18:59 06:59 18:59 Intake Total 400 Output Total 850 600 Balance -450 -600 Weight 90.3 kg Intake: Oral 400 Output: Urine 850 600 Other: Voiding Method Urinal Toilet Urinal # Voids 1 # Bowel Movements 1 - Labs CBC & Chem 7: 08/20/23 07:06 08/21/23 07:19 Labs: Abnormal Lab Results - Last 24 Hours (Table) 08/20/23 08/20/23 08/20/23 Range/Units 07:06 11:30 16:39 Sodium 132 L (137-145) mmol/L Potassium 5.4 H (3.5-5.1) mmol/L Carbon Dioxide 17 L (22-30) mmol/L BUN 34 H (9-20) mg/dL Creatinine 1.50 H (0.66-1.25) mg/dL Glucose 121 H (74-99) mg/dL POC Glucose (mg/dL) 183 H 173 H (70-110) mg/dL Calcium 7.8 L (8.4-10.2) mg/dL 08/20/23 08/21/23 08/21/23 Range/Units 20:25 06:15 07:19 Sodium 134 L (137-145) mmol/L Potassium (3.5-5.1) mmol/L Carbon Dioxide 20 L (22-30) mmol/L BUN 31 H (9-20) mg/dL Creatinine 1.37 H (0.66-1.25) mg/dL Glucose 128 H (74-99) mg/dL POC Glucose (mg/dL) 243 H 147 H (70-110) mg/dL Calcium 7.8 L (8.4-10.2) mg/dL
[2023-08-21 11:49] LABS: Glucose,Whole Blood 214 mg/dL (70-110)
--- NOTE | 2023-08-21 13:57 | P.PN ---
Subjective Progress Note Date: 08/21/23 Principal diagnosis: Left upper extremity DVT, and metastatic urothelial carcinoma This is a 73-year-old white male, familiar to my service, I saw this patient and his last admission to the hospital a few weeks ago, and the patient was discharged on 08/10. Patient is known to have history of bladder cancer, he had previous chemo and radiation treatment he also had history of paroxysmal atrial fibrillation, and he was discovered to have on the last admission a left neck mass, I recommended ENT evaluation, patient underwent needle biopsy of the mass, and came back non-small cell carcinoma consistent with urothelial carcinoma. Patient was last admitted a few weeks ago with atrial fibrillation and RVR, and he was discharged home on eliquis and his Coreg was changed to metoprolol. On the last admission he had acute kidney injury with hydronephrosis on the right side, and he also had swelling of the left upper extremity now he is developing swelling of the lower extremities as well as dyspnea on exertion. His chest x- ray showed no evidence of congestive heart failure, patient does have significant fluid retention, and I was asked to see him on consultation. On admission the patient received Lasix and his chest x-ray showed cardiomegaly but no evidence of congestive heart failure and no evidence of pleural effusions. Patient had a venous Doppler on this admission and he was found to have superficial thrombosis noted in the left cephalic vein. And there was nonocclusive deep vein thromboses within the internal jugular vein. No CT angiogram of the chest was done although the patient does have a very likely possibility of pulmonary embolism considering his venous thromboses as noted above. Nonetheless the patient is on anticoagulation therapy. Patient is maintained on eliquis 5 mg by mouth twice a day since his last admission. Labs today showed W CR 9.5 hemoglobin 9.6 electrolytes are normal BUN is 34 creatinine 1.50 Patient was reevaluated today on 08/21/23, patient is feeling better today, hardly any significant pulmonary symptoms, patient has been on diuretics for his mostly findings of right sided congestive heart failure. Chest x-ray yesterday showed cardiomegaly but no evidence of congestive heart failure, no infiltrate, and no pleural effusions. Patient remains on anticoagulation therapy , for his DVT and for his paroxysmal atrial fibrillation. Labs today were reviewed he had a relatively normal basic metabolic profile creatinine is 1.37 better today compared to the last 2 days, I am still reluctant to consider a CT angiogram of the chest on this patient considering his renal profile Objective - Vital Signs Vital signs: Vital Signs Temp 98.6 F 08/21/23 09:30 Pulse 78 08/21/23 12:38 Resp 17 08/21/23 11:17 BP 127/60 08/21/23 11:17 Pulse Ox 93 L 08/21/23 11:17 FiO2 Intake & Output 08/20/23 08/21/23 08/21/23 18:59 06:59 18:59 Intake Total 400 118 Output Total 850 600 400 Balance -450 -600 -282 Weight 90.3 kg Intake: Oral 400 118 Output: Urine 850 600 400 Other: Voiding Method Urinal Toilet Toilet Urinal Urinal # Voids 1 1 # Bowel Movements 1 - Exam Physical Exam: Revealed a 73-year-old white male in no distress, remains on room air, O2 saturation 95% HEENT:[Neck is supple.] [No neck masses.] [No thyromegaly.] [No JVD.] Chest: [Clear throughout, no crackles, no rhonchi, no wheezes.] Cardiac Exam: [Normal S1 and S2, no S3 gallop, 2/6 systolic murmur thought the precordium Abdomen: [Soft, nontender, no megaly, no rebound, no guarding, normal bowel sounds.] Extremities: 1+ bilateral lower extremities edema and left upper extremity edema is noted. Neurological Exam: [No focal neurologic deficit.] Alert oriented 3 Psychiatric: Normal mood, affect and normal mental status examination Skin: No rashes - Labs CBC & Chem 7: 08/20/23 07:06 08/21/23 07:19 Labs: Abnormal Lab Results - Last 24 Hours (Table) 08/20/23 08/20/23 08/21/23 Range/Units 16:39 20:25 06:15 Sodium (137-145) mmol/L Carbon Dioxide (22-30) mmol/L BUN (9-20) mg/dL Creatinine (0.66-1.25) mg/dL Glucose (74-99) mg/dL POC Glucose (mg/dL) 173 H 243 H 147 H (70-110) mg/dL Calcium (8.4-10.2) mg/dL 08/21/23 08/21/23 Range/Units 07:19 11:47 Sodium 134 L (137-145) mmol/L Carbon Dioxide 20 L (22-30) mmol/L BUN 31 H (9-20) mg/dL Creatinine 1.37 H (0.66-1.25) mg/dL Glucose 128 H (74-99) mg/dL POC Glucose (mg/dL) 214 H (70-110) mg/dL Calcium 7.8 L (8.4-10.2) mg/dL Assessment and Plan Assessment: Impression: Shortness of breath, exact etiology is not clear could be related to his paroxysmal atrial fibrillation could also be related to thromboembolic disease/pulmonary embolism, could also be related to his moderate mitral regurgitation Left upper extremity deep vein thrombosis Metastatic urothelial carcinoma to the neck Hypothyroidism Coronary artery disease and previous stenting Valvular heart disease/moderate mitral regurgitation Type 2 diabetes poorly controlled Dyslipidemia Benign essential hypertension History of bladder cancer and previous chemo and radiation treatment Recommendation: Continue anticoagulation therapy Continue diuretics Continue to monitor renal profile while on diuretics Would not recommend CT angiogram of the chest at this point considering his renal status Continue to monitor daily I's and O's and electrolytes as well as renal profile We will continue to follow Time with Patient: Less than 30
[2023-08-21 16:30] LABS: Glucose,Whole Blood 188 mg/dL (70-110)
--- NOTE | 2023-08-21 18:29 | P.PN ---
Progress Note - Text Progress Note Date: 08/21/23 Pleasant 72-year-old patient who follows with Dr. Johnny Rubio./Mid-level provider-Kareen. Chronic stable medical conditions include CAD with stent in 2018, diabetes, hypertension, hyperlipidemia, osteoporosis, bladder cancer with treatment in remission and cystoscopy 2020, patient had right hip surgery in October of this year now does use a walker when he goes outside. Otherwise a cane. Patient was recently discharged from the hospital 08/04-08/14 left sided neck mass concerning for malignancy Presents today because of increasing swelling of arms and legs. Also patient complaining of from little shortness of breath occasional coughing but no chest pain He says he cannot go for his urine but he denies any GI problems No headache dizziness weakness numbness. he denies smoking, Alcohol or illicit tracts, He was not discharged on Lasix Vitals stable Labs are showing mild leukocytosis of 11.7, last time he was discharged his WBCs were 18.2. Hemoglobin 11.1, rest of CBC, INR is unremarkable. Creatinine 1.3 which is at baseline, potassium 5.4, magnesium 1.2. TSH is high at 18 and free T4 is low at 0.65 EKG showing normal sinus rhythm at [address]-T changes. Mild ST depression on the sixth Chest x-ray: Cardiomegaly with pulmonary vascular congestion and right pleural effusion suggestive of CHF. Venous Doppler: Superficial thrombus seen within the left cephalic vein. Nonocclusive deep venous thrombosis seen in the internal jugular vein 08/18/2023 Patient sitting up in bed, states that his breathing is slightly better, he can lie flat as he describes. Patient is not working at baseline, confirmed. The at bedside. History the have significant swelling of arms and legs. Patient was started on IV Lasix 40 mg twice daily and he continued on home dose of liquids 5 mg. Also patient is started on small dose of levothyroxine 25 g. 08/19/2023 Patient's no breathing difficulties, history and embedded and not walking, his main problem is the swelling. Patient currently on IV Lasix twice daily, he says he did not urinate and much. We'll discuss with the staff to check bladder scan. He was started on levothyroxine 25 g. Oncology team on the case, continue with Eliquis for his upper extremity DVT. Also present college patient will require PET CT as an outpatient and then follow up with also 08/20/2023: Up in a recliner. Bouts of coughing. Clear sputum. No fever no chills. Breathing better. Eating well. at the bedside. We will apply sleeve to the left upper extremity August 21: Reclining in bed. Coughing and sputum production much better. On DuoNeb and Pulmicort started yesterday. Active Medications Acetaminophen (Acetaminophen Tab 325 Mg Tab) 650 mg PO Q6HR PRN PRN Reason: Mild Pain or Fever > 100.5 Hydrocodone Bitart/Acetaminophen (Hydrocodone/Apap 5-325mg 1 Each Tab) 1 each PO Q6H PRN PRN Reason: Pain Albuterol Sulfate (Albuterol Nebulized 2.5 Mg/3 Ml) 2.5 mg INHALATION RT-Q4H PRN PRN Reason: Shortness Of Breath Last Admin: 08/19/23 13:37 Dose: 2.5 mg Albuterol/Ipratropium (Ipratropium-Albuterol 3 Ml Neb) 3 ml INHALATION RT-QID [facility] Last Admin: 08/21/23 15:52 Dose: 3 ml Amlodipine Besylate (Amlodipine 10 Mg Tab) 10 mg PO DAILY [facility] Last Admin: 08/21/23 10:53 Dose: 10 mg Apixaban (Apixaban 5 Mg Tab) 5 mg PO BID [facility]; Protocol Last Admin: 08/21/23 10:53 Dose: 5 mg Aspirin (Aspirin 81 Mg) 81 mg PO DAILY [facility] Last Admin: 08/21/23 10:51 Dose: 81 mg Atorvastatin Calcium (Atorvastatin 80 Mg Tab) 80 mg PO DAILY [facility] Last Admin: 08/21/23 10:54 Dose: 80 mg Benzonatate (Benzonatate 100 Mg Cap) 100 mg PO TID PRN PRN Reason: Cough Last Admin: 08/19/23 13:22 Dose: 100 mg Budesonide (Budesonide 1 Mg/2 Ml Nebu) 1 mg INHALATION RT-BID [facility] Last Admin: 08/21/23 09:06 Dose: 1 mg Calcium Carbonate (Calcium Carb-Vit D 500 Mg-5 Mcg Tab) 1 each PO DAILY [facility] Last Admin: 08/21/23 11:16 Dose: 1 each Furosemide (Furosemide 40 Mg Tab) 40 mg PO DAILY [facility] Last Admin: 08/21/23 10:51 Dose: 40 mg Guaifenesin (Guaifenesin Syrup 100mg/5ml 200 Mg/10 Ml Cup) 200 mg PO Q6HR PRN PRN Reason: Cough Last Admin: 08/19/23 20:47 Dose: 200 mg Hydralazine HCl (Hydralazine Hcl 25 Mg Tab) 75 mg PO QID [facility] Last Admin: 08/21/23 16:59 Dose: 75 mg Insulin Aspart (Insulin Aspart (Novolog) 100 Unit/Ml Vial) 0 unit SQ ACHS [facility]; Protocol Last Admin: 08/21/23 17:00 Dose: 2 unit Levothyroxine Sodium (Levothyroxine 25 Mcg Tab) 25 mcg PO DAILY@0630 [facility] Last Admin: 08/21/23 06:24 Dose: 25 mcg Magnesium Oxide (Magnesium Oxide 400 Mg Tab) 400 mg PO DAILY [facility] Last Admin: 08/21/23 10:53 Dose: 400 mg Metformin HCl (Metformin 500 Mg Tab) 500 mg PO BID [facility] Last Admin: 08/21/23 10:51 Dose: 500 mg Metoprolol Tartrate (Metoprolol Tartrate 50 Mg Tab) 50 mg PO BID [facility] Last Admin: 08/21/23 10:58 Dose: 50 mg Naloxone HCl (Naloxone 0.4 Mg/Ml 1 Ml Vial) 0.2 mg IV Q2M PRN PRN Reason: Opioid Reversal Non-Formulary Medication (Liraglutide [Victoza 3-Sam]) 1.8 mg SQ DAILY [facility] Last Admin: 08/21/23 10:39 Dose: Not Given Ondansetron HCl (Ondansetron 4 Mg/2 Ml Vial) 4 mg IVP Q8HR PRN PRN Reason: Nausea And Vomiting Sodium Bicarbonate (Sodium Bicarbonate Tab 650 Mg Tab) 650 mg PO BID [facility] Last Admin: 08/21/23 10:50 Dose: 650 mg Social history: Used to work in a [employer]. . 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 Patient Smoked for 50 Years Stopped in 2019. Also Is Drinking Excessive Alcohol up to 2019. Physical examination: VITAL SIGNS: 98.6, 82, 17, 127/60, 93% room air GENERAL: Reclining in bed, EYES: Pupils equal. Conjunctiva normal. HEENT: External appearance of nose and ears normal, oral cavity grossly normal. NECK: JVD not raised; masses not palpable. Hard mass of the left upper neck going to the mandible. Hard. HEART: Heart sounds irregular; no edema. LUNGS: Respiratory rate normal; decreased breath sounds. ABDOMEN: Soft, nontender, liver spleen not palpable, no masses palpable. PSYCH: Alert and oriented x3; mood and affect normal EXTREMITY: Left upper extremity swelling compared to the right MUSCULOSKELETAL:No Clubbing/cyanosis;muscles-grossly intact. OA INVESTIGATIONS, reviewed in the clinical context: August 21: Sodium 134 potassium 4.5 BUN 31 creatinine 1.37 August 20: White count 9.5 hemoglobin 9.6 (219 potassium 5.4 BUN 34 creatinine 1.50 Ultrasound Doppler of the left upper extremity: Non occlusive DVT in the eye JVD. Superficial thrombosis within the left cephalic vein. . Recent investigations: 2-D echocardiogram: Preserved LV function. Mild inferior septal hypokinesis. CT soft tissue neck without contrast: Enlargement of the left parotid gland with surrounding the inflammatory attenuation as well as skeletal thinking. Also inflammatory thickening of the left sternocleidomastoid musculature. Surrounding reactive adenopathy. No obstructing Loss. CT chest abdomen pelvis: Small bowel guarded to 3 cm. Mild right-sided hydronephrosis. Gallstones Chest x-ray film personally reviewed by me-hyperinflation. Some pulmonary artery prominence EKG tracing personally reviewed by me-possible ectopic atrial rhythm. Ultrasound kidney: Mild right-sided hydronephrosis. Assessment: -Acute congestive heart exacerbation from diastolic dysfunction 50-55%.: Better 40 mg a day oral Lasix Followed by cardiology -Acute COPD exacerbation and a prior smoker: Some improvement DuoNeb 4 times a day. Nebulized Pulmicort 1 mg twice a day. Paroxysmal atrial fibrillation - sinus rhythm Lopressor 50 mg twice a day Eliquis -Essential hypertension Lopressor 50 mg twice a day. Amlodipine 10 mg a day Hydralazine 75 mg 4 times a day -Mild hydronephrosis Being followed by urology -Metastatic urothelial carcinoma: -Completed treatment with concurrent chemo/RT in 06/2020. Was following up for observation in clinic through 11/2021 with no evidence of recurrence. Stopped f/u with urology in February 2022 due to insurance reasons, and has not had f/u since -Progressing left neck mass. Biopsy of the lt neck mass revealed metastatic non- small cell carcinoma consistent with metastatic high-grade urothelial carcinoma. Results were discussed with patient and spouse -Will reschedule PET CT, and pending hospitalization may have to reschedule clinic f/u with Dr. Banda -Hyperkalemia from underlying CK D: Improved Kayexalate -Non occlusive DVT in the left internal jugular vein. Superficial thrombosis within the left cephalic vein. Shukri Engle left upper extremity Consult vascular - metabolic acidosis from renal failure: Sodium bicarbonate -Hypocalcemia Os-Car vitamin D -Left upper neck mass. Metastatic non-small cell carcinoma consistent with metastatic high-grade urothelial carcinoma Follow-up with Dr. Cardoza from oncology -CAD with stent 2019 Aspirin. Coreg -Hyperlipidemia Lipitor -Diabetes mellitus type 2 on oral hypoglycemic Follow Accu-Cheks and sliding scale Victoza. Metformin. -Full code. [Discussed with patient and present.] Doing better. Hopefully discharge tomorrow. Discussed.
[2023-08-21 19:57] LABS: Glucose,Whole Blood 272 mg/dL (70-110)
[2023-08-21] MEDS: ONDANSETRON 4 MG/2 ML VIAL IVP PRN (23:40)
[2023-08-22 05:46] LABS: Glucose,Whole Blood 179 mg/dL (70-110)
[2023-08-22] MEDS: INSULIN ASPART (NovoLOG) 100 UNIT/ML VIAL SQ SCH ×4 (05:58→21:24)
[2023-08-22] MEDS: LEVOTHYROXINE 25 MCG TAB PO SCH (06:27)
[2023-08-22] MEDS: ONDANSETRON 4 MG/2 ML VIAL IVP PRN (06:46)
[2023-08-22] MEDS: BUDESONIDE 1 MG/2 ML NEBU INHALATION SCH ×2 (07:46→21:30)
[2023-08-22] MEDS: IPRATROPIUM-ALBUTEROL 3 ML NEB INHALATION SCH ×4 (07:46→21:30)
[2023-08-22] MEDS: MAGNESIUM OXIDE 400 MG TAB PO SCH (08:06)
[2023-08-22] MEDS: APIXABAN 5 MG TAB PO SCH ×2 (08:07→21:08)
[2023-08-22] MEDS: FUROSEMIDE 40 MG TAB PO SCH (08:07)
[2023-08-22] MEDS: CALCIUM CARB-VIT D 500 MG-5 MCG TAB PO SCH (08:07)
[2023-08-22] MEDS: ATORVASTATIN 80 MG TAB PO SCH (08:07)
[2023-08-22] MEDS: metFORMIN 500 MG TAB PO SCH ×2 (08:07→21:24)
[2023-08-22] MEDS: METOPROLOL TARTRATE 50 MG TAB PO SCH ×2 (08:07→21:24)
[2023-08-22] MEDS: amLODIPine 10 MG TAB PO SCH (08:07)
[2023-08-22] MEDS: hydrALAZINE HCL 25 MG TAB PO SCH ×4 (08:08→21:24)
[2023-08-22] MEDS: SODIUM BICARBONATE TAB 650 MG TAB PO SCH ×2 (08:08→21:24)
[2023-08-22] MEDS: ASPIRIN 81 MG PO SCH (08:08)
[2023-08-22] MEDS: NON FORMULARY DRUG (Liraglutide [Victoza 3-Pak] 0.6 MG/0.1 ML Ml) SQ SCH (08:42)
[2023-08-22] MEDS: METOCLOPRAMIDE 5 MG/ML 2 ML VIAL IVP PRN ×2 (10:40→21:25)
--- NOTE | 2023-08-22 11:01 | XR ---
EXAMINATION TYPE: XR abdomen 2V DATE OF EXAM: 08/22/2023 COMPARISON: CT chest abdomen and pelvis 08/05/2023, KUB 08/04/2023 HISTORY: Projectile emesis TECHNIQUE: Upright and supine views of the abdomen were obtained. FINDINGS: Small bowel demonstrates no evidence for dilatation or air fluid levels. Gas and fecal material is seen in non-distended colon. No convincing evidence for pneumoperitoneum. No unusual calcifications. The lung bases are clear. No acute osseous abnormality. Degenerative changes of the lower lumbar spine. Right proximal femur fi xation hardware demonstrated. IMPRESSION: Overall nonobstructive bowel gas pattern.
[2023-08-22 11:48] LABS: Glucose,Whole Blood 200 mg/dL (70-110)
--- NOTE | 2023-08-22 12:01 | P.PN ---
Subjective Progress Note Date: 08/22/23 Principal diagnosis: DVT, CHF At today's visit patient is resting comfortably in bed. Patient reports last night around midnight he began experiencing n/v and has had 5-6 episodes without improvement with Zofran. Experiencing nausea with fluids this morning. Objective - Vital Signs Vital signs: Vital Signs Temp 98.6 F 08/22/23 11:48 Pulse 79 08/22/23 11:48 Resp 18 08/22/23 11:48 BP 147/63 08/22/23 11:48 Pulse Ox 94 L 08/22/23 11:48 FiO2 Intake & Output 08/21/23 08/22/23 08/22/23 18:59 06:59 18:59 Intake Total 236 540 Output Total 800 600 Balance -564 -60 Weight 94 kg Intake: Oral 236 540 Output: Urine 800 600 Other: Voiding Method Toilet Toilet Toilet Urinal Urinal Urinal # Voids 1 - Constitutional General appearance: Present: average body habitus, no acute distress - EENT Eyes: Present: anicteric sclerae, EOMI ENT: Present: hearing grossly normal - Respiratory Details: breathing is even and unlabored - Cardiovascular Details: skin warm and dry - Gastrointestinal General gastrointestinal: Present: soft. Absent: tenderness - Integumentary Integumentary: Absent: cyanotic - Musculoskeletal Musculoskeletal: Present: generalized weakness - Psychiatric Psychiatric: Present: A&O x's 3, appropriate affect, intact judgment & insight - Labs CBC & Chem 7: 08/20/23 07:06 08/21/23 07:19 Labs: Abnormal Lab Results - Last 24 Hours (Table) 08/21/23 08/21/23 08/22/23 Range/Units 16:29 19:56 05:44 POC Glucose (mg/dL) 188 H 272 H 179 H (70-110) mg/dL 08/22/23 Range/Units 11:47 POC Glucose (mg/dL) 200 H (70-110) mg/dL Assessment and Plan (1) New onset of congestive heart failure Current Visit: Yes Status: Acute Priority: High Code(s): I50.9 - HEART FAILURE, UNSPECIFIED SNOMED Code(s): 09189980 (2) Thrombosis of left internal jugular vein Current Visit: Yes Status: Acute Priority: High Code(s): I82.C12 - ACUTE EMBOLISM AND THROMBOSIS OF LEFT INTERNAL JUGULAR VEIN SNOMED Code(s): 361972094 (3) Metastatic urothelial carcinoma Current Visit: Yes Status: Acute Priority: High Code(s): C79.10 - SECONDARY MALIGNANT NEOPLASM OF UNSPECIFIED URINARY ORGANS SNOMED Code(s): 32153934 Plan: Metastatic urothelial carcinoma: -Full history as stated in HPI -Completed treatment with concurrent chemo/RT in 06/2020. Was following up for observation in clinic through 11/2021 with no evidence of recurrence. Stopped f/u with urology in February 2022 due to insurance reasons, and has not had f/u since -Progressing left neck mass. Biopsy of the lt neck mass revealed metastatic non- small cell carcinoma consistent with metastatic high-grade urothelial carcinoma. Results were discussed with patient and spouse -Will reschedule PET CT. Clinic f/u in discharge plan N/V: -Reglan added for additional anti-emetic support -Will obtain Abdominal x-ray DVT: -Doppler of left upper extremity was positive for nonocclusive deep vein thrombosis within the internal jugular vein and superficial thrombus within the left cephalic vein. Dopplers of bilateral lower extremities were negative for DVT. -Upon review of records patient was started on heparin and transitioned to Eliquis during last admission due to new onset A-fib with RVR, and has continued on Eliquis since discharge. LUE edema has been persisting since last admission with no changes in arm swelling, however, there were no dopplers obtained at that time. Patient has continued on Eliquis since discharge. -At this time patient can continue on Eliquis, as it is likely thrombus was already present when started on anticoagulation. If additional thrombus presents while anticoagulated with Eliquis will have to switch anticoagulant CHF: -Continues on lasix -IM and cardiology following
--- NOTE | 2023-08-22 13:02 | P.PN ---
Progress Note - Text Progress Note Date: 08/22/23 Pleasant 72-year-old patient who follows with Dr. Johnny Rubio./Mid-level provider-Kareen. Chronic stable medical conditions include CAD with stent in 2018, diabetes, hypertension, hyperlipidemia, osteoporosis, bladder cancer with treatment in remission and cystoscopy 2020, patient had right hip surgery in October of this year now does use a walker when he goes outside. Otherwise a cane. Patient was recently discharged from the hospital 08/04-08/14 left sided neck mass concerning for malignancy Presents today because of increasing swelling of arms and legs. Also patient complaining of from little shortness of breath occasional coughing but no chest pain He says he cannot go for his urine but he denies any GI problems No headache dizziness weakness numbness. he denies smoking, Alcohol or illicit tracts, He was not discharged on Lasix Vitals stable Labs are showing mild leukocytosis of 11.7, last time he was discharged his WBCs were 18.2. Hemoglobin 11.1, rest of CBC, INR is unremarkable. Creatinine 1.3 which is at baseline, potassium 5.4, magnesium 1.2. TSH is high at 18 and free T4 is low at 0.65 EKG showing normal sinus rhythm at [address]-T changes. Mild ST depression on the sixth Chest x-ray: Cardiomegaly with pulmonary vascular congestion and right pleural effusion suggestive of CHF. Venous Doppler: Superficial thrombus seen within the left cephalic vein. Nonocclusive deep venous thrombosis seen in the internal jugular vein 08/18/2023 Patient sitting up in bed, states that his breathing is slightly better, he can lie flat as he describes. Patient is not working at baseline, confirmed. The at bedside. History the have significant swelling of arms and legs. Patient was started on IV Lasix 40 mg twice daily and he continued on home dose of liquids 5 mg. Also patient is started on small dose of levothyroxine 25 g. 08/19/2023 Patient's no breathing difficulties, history and embedded and not walking, his main problem is the swelling. Patient currently on IV Lasix twice daily, he says he did not urinate and much. We'll discuss with the staff to check bladder scan. He was started on levothyroxine 25 g. Oncology team on the case, continue with Eliquis for his upper extremity DVT. Also present college patient will require PET CT as an outpatient and then follow up with also 08/20/2023: Up in a recliner. Bouts of coughing. Clear sputum. No fever no chills. Breathing better. Eating well. at the bedside. We will apply sleeve to the left upper extremity August 21: Reclining in bed. Coughing and sputum production much better. On DuoNeb and Pulmicort started yesterday. August 22: Patient vomited overnight a few times. Some coffee-ground emesis this morning. Put on clear liquids. GI consulted. Protonix added. Active Medications Acetaminophen (Acetaminophen Tab 325 Mg Tab) 650 mg PO Q6HR PRN PRN Reason: Mild Pain or Fever > 100.5 Hydrocodone Bitart/Acetaminophen (Hydrocodone/Apap 5-325mg 1 Each Tab) 1 each PO Q6H PRN PRN Reason: Pain Albuterol Sulfate (Albuterol Nebulized 2.5 Mg/3 Ml) 2.5 mg INHALATION RT-Q4H PRN PRN Reason: Shortness Of Breath Last Admin: 08/19/23 13:37 Dose: 2.5 mg Albuterol/Ipratropium (Ipratropium-Albuterol 3 Ml Neb) 3 ml INHALATION RT-QID [facility] Last Admin: 08/22/23 11:11 Dose: 3 ml Amlodipine Besylate (Amlodipine 10 Mg Tab) 10 mg PO DAILY [facility] Last Admin: 08/22/23 08:07 Dose: 10 mg Apixaban (Apixaban 5 Mg Tab) 5 mg PO BID [facility]; Protocol Last Admin: 08/22/23 08:07 Dose: 5 mg Aspirin (Aspirin 81 Mg) 81 mg PO DAILY [facility] Last Admin: 08/22/23 08:08 Dose: 81 mg Atorvastatin Calcium (Atorvastatin 80 Mg Tab) 80 mg PO DAILY [facility] Last Admin: 08/22/23 08:07 Dose: 80 mg Benzonatate (Benzonatate 100 Mg Cap) 100 mg PO TID PRN PRN Reason: Cough Last Admin: 08/19/23 13:22 Dose: 100 mg Budesonide (Budesonide 1 Mg/2 Ml Nebu) 1 mg INHALATION RT-BID [facility] Last Admin: 08/22/23 07:46 Dose: 1 mg Calcium Carbonate (Calcium Carb-Vit D 500 Mg-5 Mcg Tab) 1 each PO DAILY [facility] Last Admin: 08/22/23 08:07 Dose: 1 each Furosemide (Furosemide 40 Mg Tab) 40 mg PO DAILY [facility] Last Admin: 08/22/23 08:07 Dose: 40 mg Guaifenesin (Guaifenesin Syrup 100mg/5ml 200 Mg/10 Ml Cup) 200 mg PO Q6HR PRN PRN Reason: Cough Last Admin: 08/19/23 20:47 Dose: 200 mg Hydralazine HCl (Hydralazine Hcl 25 Mg Tab) 75 mg PO QID [facility] Last Admin: 08/22/23 12:26 Dose: 75 mg Insulin Aspart (Insulin Aspart (Novolog) 100 Unit/Ml Vial) 0 unit SQ ACHS [facility]; Protocol Last Admin: 08/22/23 12:25 Dose: 2 unit Levothyroxine Sodium (Levothyroxine 25 Mcg Tab) 25 mcg PO DAILY@0630 [facility] Last Admin: 08/22/23 06:27 Dose: 25 mcg Magnesium Oxide (Magnesium Oxide 400 Mg Tab) 400 mg PO DAILY [facility] Last Admin: 08/22/23 08:06 Dose: 400 mg Metformin HCl (Metformin 500 Mg Tab) 500 mg PO BID [facility] Last Admin: 08/22/23 08:07 Dose: 500 mg Metoclopramide HCl (Metoclopramide 5 Mg/Ml 2 Ml Vial) 10 mg IVP Q6HR PRN PRN Reason: Nausea And Vomiting Last Admin: 08/22/23 10:40 Dose: 10 mg Metoprolol Tartrate (Metoprolol Tartrate 50 Mg Tab) 50 mg PO BID [facility] Last Admin: 08/22/23 08:07 Dose: 50 mg Naloxone HCl (Naloxone 0.4 Mg/Ml 1 Ml Vial) 0.2 mg IV Q2M PRN PRN Reason: Opioid Reversal Non-Formulary Medication (Liraglutide [Victoza 3-Sam]) 1.8 mg SQ DAILY [facility] Last Admin: 08/22/23 08:42 Dose: Not Given Pantoprazole Sodium (Pantoprazole 40 Mg Tablet) 40 mg PO AC-BID [facility] Sodium Bicarbonate (Sodium Bicarbonate Tab 650 Mg Tab) 650 mg PO BID [facility] Last Admin: 08/22/23 08:08 Dose: 650 mg Social history: Used to work in a [employer] . 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 Patient Smoked for 50 Years Stopped in 2019. Also Is Drinking Excessive Alcohol up to 2019. Physical examination: VITAL SIGNS: 98.6, 79, 18, 147/63, 94% room air GENERAL: Reclining in bed, EYES: Pupils equal. Conjunctiva normal. HEENT: External appearance of nose and ears normal, oral cavity grossly normal. NECK: JVD not raised; masses not palpable. Hard mass of the left upper neck going to the mandible. Hard. HEART: Heart sounds irregular; no edema. LUNGS: Respiratory rate normal; decreased breath sounds. ABDOMEN: Soft, nontender, liver spleen not palpable, no masses palpable. PSYCH: Alert and oriented x3; mood and affect normal EXTREMITY: Left upper extremity swelling compared to the right MUSCULOSKELETAL:No Clubbing/cyanosis;muscles-grossly intact. OA INVESTIGATIONS, reviewed in the clinical context: August 21: Sodium 134 potassium 4.5 BUN 31 creatinine 1.37 August 20: White count 9.5 hemoglobin 9.6 (219 potassium 5.4 BUN 34 creatinine 1.50 Ultrasound Doppler of the left upper extremity: Non occlusive DVT in the eye JVD. Superficial thrombosis within the left cephalic vein. . Recent investigations: 2-D echocardiogram: Preserved LV function. Mild inferior septal hypokinesis. CT soft tissue neck without contrast: Enlargement of the left parotid gland with surrounding the inflammatory attenuation as well as skeletal thinking. Also inflammatory thickening of the left sternocleidomastoid musculature. Surrounding reactive adenopathy. No obstructing Loss. CT chest abdomen pelvis: Small bowel guarded to 3 cm. Mild right-sided hydronephrosis. Gallstones Chest x-ray film personally reviewed by me-hyperinflation. Some pulmonary artery prominence EKG tracing personally reviewed by me-possible ectopic atrial rhythm. Ultrasound kidney: Mild right-sided hydronephrosis. Assessment: -Acute congestive heart exacerbation from diastolic dysfunction 50-55%.: Better 40 mg a day oral Lasix Followed by cardiology -Overnight multiple episodes of vomiting and some coffee-ground emesis. Consult GI. PPI. Stop aspirin. Clear liquid diet. -Acute COPD exacerbation and a prior smoker: Better DuoNeb 4 times a day. Nebulized Pulmicort 1 mg twice a day. Paroxysmal atrial fibrillation - sinus rhythm Lopressor 50 mg twice a day Eliquis -Essential hypertension Lopressor 50 mg twice a day. Amlodipine 10 mg a day Hydralazine 75 mg 4 times a day -Mild hydronephrosis Being followed by urology -Metastatic urothelial carcinoma: -Completed treatment with concurrent chemo/RT in 06/2020. Was following up for observation in clinic through 11/2021 with no evidence of recurrence. Stopped f/u with urology in February 2022 due to insurance reasons, and has not had f/u since -Progressing left neck mass. Biopsy of the lt neck mass revealed metastatic non- small cell carcinoma consistent with metastatic high-grade urothelial carcinoma. Results were discussed with patient and spouse -Will reschedule PET CT, and pending hospitalization may have to reschedule clinic f/u with Dr. Banda -Hyperkalemia from underlying CK D: Improved Kayexalate -Non occlusive DVT in the left internal jugular vein. Superficial thrombosis within the left cephalic vein. Eliquis Sleeve left upper extremity Consult vascular - metabolic acidosis from renal failure: Sodium bicarbonate -Hypocalcemia Os-Car vitamin D -Left upper neck mass. Metastatic non-small cell carcinoma consistent with metastatic high-grade urothelial carcinoma Follow-up with Dr. Cardoza from oncology -CAD with stent 2018 Aspirin. Coreg -Hyperlipidemia Lipitor -Diabetes mellitus type 2 on oral hypoglycemic Follow Accu-Cheks and sliding scale Victoza. Metformin. -Full code. [Discussed with patient and present.] Changed to clear liquid diet. Consult GI. PPI. Stop aspirin. Hold Lasix temporarily.
--- NOTE | 2023-08-22 13:35 | P.PN ---
Subjective Progress Note Date: 08/22/23 Principal diagnosis: Left upper extremity DVT, and metastatic urothelial carcinoma This is a 73-year-old white male, familiar to my service, I saw this patient and his last admission to the hospital a few weeks ago, and the patient was discharged on 08/10. Patient is known to have history of bladder cancer, he had previous chemo and radiation treatment he also had history of paroxysmal atrial fibrillation, and he was discovered to have on the last admission a left neck mass, I recommended ENT evaluation, patient underwent needle biopsy of the mass, and came back non-small cell carcinoma consistent with urothelial carcinoma. Patient was last admitted a few weeks ago with atrial fibrillation and RVR, and he was discharged home on eliquis and his Coreg was changed to metoprolol. On the last admission he had acute kidney injury with hydronephrosis on the right side, and he also had swelling of the left upper extremity now he is developing swelling of the lower extremities as well as dyspnea on exertion. His chest x- ray showed no evidence of congestive heart failure, patient does have significant fluid retention, and I was asked to see him on consultation. On admission the patient received Lasix and his chest x-ray showed cardiomegaly but no evidence of congestive heart failure and no evidence of pleural effusions. Patient had a venous Doppler on this admission and he was found to have superficial thrombosis noted in the left cephalic vein. And there was nonocclusive deep vein thromboses within the internal jugular vein. No CT angiogram of the chest was done although the patient does have a very likely possibility of pulmonary embolism considering his venous thromboses as noted above. Nonetheless the patient is on anticoagulation therapy. Patient is maintained on eliquis 5 mg by mouth twice a day since his last admission. Labs today showed W CR 9.5 hemoglobin 9.6 electrolytes are normal BUN is 34 creatinine 1.50 Patient was reevaluated today on 08/21/23, patient is feeling better today, hardly any significant pulmonary symptoms, patient has been on diuretics for his mostly findings of right sided congestive heart failure. Chest x-ray yesterday showed cardiomegaly but no evidence of congestive heart failure, no infiltrate, and no pleural effusions. Patient remains on anticoagulation therapy , for his DVT and for his paroxysmal atrial fibrillation. Labs today were reviewed he had a relatively normal basic metabolic profile creatinine is 1.37 better today compared to the last 2 days, I am still reluctant to consider a CT angiogram of the chest on this patient considering his renal profile Patient was reevaluated today on 08/22/23, pulmonary-santiago the patient is feeling fine, however early this morning the patient has been having intermittent episodes of nausea and vomiting. Some vague abdominal discomfort, on physical e xamination his abdomen benign, hence I doubt any surgical acute abdomen, patient apparently had some symptoms of gastritis with nausea and vomiting. No diarrhea, no fever, no chills, no hemoptysis, he had minimal intermittent episodes of cough. Basic metabolic profile is normal creatinine is down to 1.37, improving Objective - Vital Signs Vital signs: Vital Signs Temp 98.6 F 08/22/23 11:48 Pulse 79 08/22/23 11:48 Resp 18 08/22/23 11:48 BP 147/63 08/22/23 11:48 Pulse Ox 94 L 08/22/23 11:48 FiO2 Intake & Output 08/21/23 08/22/23 08/22/23 18:59 06:59 18:59 Intake Total 236 540 Output Total 800 600 Balance -564 -60 Weight 94 kg Intake: Oral 236 540 Output: Urine 800 600 Other: Voiding Method Toilet Toilet Toilet Urinal Urinal Urinal # Voids 1 - Exam Physical Exam: Revealed a 73-year-old white male in no distress, remains on room air, O2 saturation 94% HEENT:[Neck is supple.] [No neck masses.] [No thyromegaly.] [No JVD.] Chest: [Clear throughout, no crackles, no rhonchi, no wheezes.] Cardiac Exam: [Normal S1 and S2, no S3 gallop, 2/6 systolic murmur thought the precordium Abdomen: [Soft, nontender, no megaly, no rebound, no guarding, normal bowel sounds.] Extremities: 1+ bilateral lower extremities edema and left upper extremity edema is noted. Neurological Exam: [No focal neurologic deficit.] Alert oriented 3 Psychiatric: Normal mood, affect and normal mental status examination Skin: No rashes - Labs CBC & Chem 7: 08/20/23 07:06 08/21/23 07:19 Labs: Abnormal Lab Results - Last 24 Hours (Table) 08/21/23 08/21/23 08/22/23 Range/Units 16:29 19:56 05:44 POC Glucose (mg/dL) 188 H 272 H 179 H (70-110) mg/dL 08/22/23 Range/Units 11:47 POC Glucose (mg/dL) 200 H (70-110) mg/dL Assessment and Plan Assessment: Impression: Shortness of breath, related to his paroxysmal atrial fibrillation could also be related to thromboembolic disease/pulmonary embolism, could also be related to his moderate mitral regurgitation Left upper extremity deep vein thrombosis Metastatic urothelial carcinoma to the neck Hypothyroidism Coronary artery disease and previous stenting Valvular heart disease/moderate mitral regurgitation Type 2 diabetes poorly controlled Dyslipidemia Benign essential hypertension History of bladder cancer and previous chemo and radiation treatment Recommendation: Continue anticoagulation therapy Continue diuretics, patient is on Lasix 40 mg by mouth daily Continue to monitor renal profile while on diuretics Would not recommend CT angiogram of the chest at this point considering his renal status Admitting physician to address his GI symptoms this morning We'll clear for discharge once he is cleared by other consultants and his GI symptoms have resolved We will continue to follow Time with Patient: Less than 30
--- NOTE | 2023-08-22 14:11 | P.GSCN ---
History of Present Illness Consult date: 08/22/23 Reason for Consult: Left IJ vein occlusion Requesting physician: Lane Vergara History of present illness: This is a 73-year-old male with a history of bladder cancer with previous chemo and radiation treatment, atrial fibrillation, coronary artery disease, diabetes mellitus, hyperlipidemia, hypertension who was recently hospitalized and has a left neck mass that was biopsied and came back as non-small cell carcinoma consistent with urothelial carcinoma. He has been on Eliquis 5mg BID for atrial fibrillation. He has been taking his medication as prescribed. He presented back to the emergency department on 08/17/2023 with concerns of swelling of bilateral lower extremities and his left upper extremity. During his hospitalization he had a venous duplex of lower extremities which was negative bilaterally for DVT. He also had a venous duplex of the left upper extremity that reported a nonocclusive deep vein thrombus seen within the internal jugular vein and a superficial thrombus seen within the left cephalic vein.. Patient states he has no pain in his left upper extremity has full range of motion. He does have mass present to left side of his neck. States he has been coughing significantly and bringing up sputum. States shortness of breath improved today. He denies any chest pain, abdominal pain, fevers or chills. Review of Systems A 14 point review systems was completed all pertinent positives and negatives as stated in the HPI. Past Medical History Past Medical History: Coronary Artery Disease (CAD), Cancer, Diabetes Mellitus, Hyperlipidemia, Hypertension, Myocardial Infarction ([place]), Osteoarthritis (OA) Additional Past Medical History / Comment(s): Bladder cancer stage with treatment, in remission since 2020. IDDM type II, post polio syndrome,leg length discrepancy, bronchitis, chronic low back pain. Last Myocardial Infarction Date:: 07/23/19 History of Any Multi-Drug Resistant Organisms: None Reported Past Surgical History: Heart Catheterization With Stent, Orthopedic Surgery Additional Past Surgical History / Comment(s): Cystoscopy, TURBT x2, closure of patent urachus bladder tumor as , R leg surgery d/t polio-lengthening, cardiac stents 2018; Right hip surgery 11/03/2022 Past Anesthesia/Blood Transfusion Reactions: No Reported Reaction Date of Last Stent Placement:: 07/23/19 Past Psychological History: No Psychological Hx Reported Additional Psychological History / Comment(s): Pt resides with his spouse. He is independent. He just started ambulating with a cane or walker Smoking Status: Former smoker Past Alcohol Use History: None Reported Additional Past Alcohol Use History / Comment(s): Pt started smoking in 1968 and quit 07/21/19. Prior ETOH abuse-pt states he hasnt had alcohol in months Past Drug Use History: None Reported - Past Family History Father History Unknown: Yes Mother Additional Family Medical History / Comment(s): Mother of in a MVA when pt was 15 yrs old. Brother(s) Additional Family Medical History / Comment(s): Pt has one brother who of a bowel problem and another brother that of a ruptured aneurysm. Medications and Allergies Home Medications Medication Instructions Recorded Confirmed Type Aspirin 81 mg PO DAILY #90 chewable 07/25/19 08/17/23 Rx Atorvastatin [Lipitor] 80 mg PO DAILY 05/13/20 08/17/23 History Liraglutide [Victoza 3-Sam] 1.8 mg SQ DAILY 08/04/23 08/17/23 History metFORMIN HCL ER [Glucophage XR] 500 mg PO BID 08/04/23 08/17/23 History Apixaban [Eliquis] 5 mg PO BID #60 tab 08/10/23 08/17/23 Rx Magnesium Oxide [Mag-Ox] 400 mg PO DAILY #30 tab 08/10/23 08/17/23 Rx Metoprolol Tartrate [Lopressor] 50 mg PO BID #60 tab 08/10/23 08/17/23 Rx amLODIPine [Norvasc] 10 mg PO DAILY #30 tab 08/10/23 08/17/23 Rx hydrALAZINE HCL [Apresoline] 50 mg PO QID #120 tab 08/10/23 08/17/23 Rx Albuterol Sulfate [Albuterol 1 puff INHALATION RT-Q4H PRN 08/17/23 08/17/23 History Sulfate Hfa] Calcium Carb-Vit D 500Mg-5Mcg 1 tab PO DAILY 08/17/23 08/17/23 History [Oscal 500+D 5 Mcg (200 Iu)] HYDROcodone/APAP 5-325MG [[place] 1 tab PO Q6H PRN 08/17/23 08/17/23 History 5-325] Levofloxacin [Levaquin] See Taper PO DAILY 08/17/23 08/17/23 History metroNIDAZOLE [Flagyl] 500 mg PO TID 08/17/23 08/17/23 History Allergies Allergy/AdvReac Type Severity Reaction Status Date / Time No Known Allergies Allergy Verified 08/17/23 12:11 Surgical - Exam Vital Signs Temp Pulse Resp BP Pulse Ox 98.4 F 70 20 121/50 96 08/17/23 09:34 08/17/23 09:34 08/17/23 09:34 08/17/23 09:34 08/17/23 09:34 General appearance: The patient is alert, oriented, appears in no acute distress. HET: Head is normocephalic and atraumatic. Pupils are equal and reactive. Neck: Supple. Large mass to left side of neck. Heart: Regular. Lungs: Equal expansion, normal respiratory effort. Abdomen: Soft, nontender, nondistended. Extremities: Bilateral lower extremity edema. Left upper extremity swelling d own through fingertips. He has palpable radial and ulnar pulses. Sensorimotor intact. Full range of motion. Neurological: No focal deficits. Alert and oriented. Results - Labs 08/20/23 07:06 08/21/23 07:19 Abnormal Lab Results - Last 24 Hours (Table) 08/21/23 08/21/23 08/21/23 Range/Units 11:47 16:29 19:56 POC Glucose (mg/dL) 214 H 188 H 272 H (70-110) mg/dL 08/22/23 Range/Units 05:44 POC Glucose (mg/dL) 179 H (70-110) mg/dL - Imaging Comments: See HPI for details Assessment and Plan Assessment: 1. Left nonocclusive deep vein thrombus in the internal jugular vein 2. Superficial thrombus seen within left cephalic vein 3. [id number] Marcelle carcinoma to the neck 4. Atrial fibrillation 5. History of coronary artery disease 6. Diabetes mellitus Plan: Imaging reviewed by Dr. Montalvo. There is no indication for any vascular surgical intervention. Recommend putting compression on stocking to the left upper extremity and elevating. Use ice and heat as needed for discomfort. Follow-up is not needed with vascular surgery. Continue Eliquis. Patient can follow-up with oncology for management of anticoagulation. Thank you for this consultation, we will sign off at this time. The impression and plan of care has been dictated as directed. I performed a history and examination of this patient, discussed the same with the dictator. I agree with the dictator's note ,documented as a scribe. Any additional findings or plans will be noted.
[2023-08-22 16:55] LABS: Glucose,Whole Blood 214 mg/dL (70-110)
[2023-08-22] MEDS: PANTOPRAZOLE 40 MG TABLET PO SCH (18:00)
[2023-08-22] MEDS: SODIUM CHLORIDE 0.45% 1,000 ML IV SCH (18:08)
[2023-08-22 20:33] LABS: Glucose,Whole Blood 182 mg/dL (70-110)
[2023-08-23 05:52] LABS: Glucose,Whole Blood 126 mg/dL (70-110)
[2023-08-23] MEDS: INSULIN ASPART (NovoLOG) 100 UNIT/ML VIAL SQ SCH ×4 (06:04→21:48)
[2023-08-23] MEDS: LEVOTHYROXINE 25 MCG TAB PO SCH (06:32)
[2023-08-23] MEDS: PANTOPRAZOLE 40 MG TABLET PO SCH ×2 (06:32→17:06)
[2023-08-23] MEDS: IPRATROPIUM-ALBUTEROL 3 ML NEB INHALATION SCH ×4 (08:08→22:05)
[2023-08-23] MEDS: BUDESONIDE 1 MG/2 ML NEBU INHALATION SCH ×2 (08:08→22:05)
[2023-08-23 08:36] LABS: Basophils % (A) 0 %; Eosinophils # (A) 0.2 k/uL (0-0.7); Eosinophils % (A) 3 %; HCT 27.4 % (39.0-53.0); HGB 8.9 gm/dL (13.0-17.5); Lymphocytes # (A) 0.8 k/uL (1.0-4.8); Lymphocytes % (A) 9 %; MCH 33.9 pg (25.0-35.0); MCHC 32.4 g/dL (31.0-37.0); MCV 104.6 fL (80.0-100.0); Macrocytosis Slight; Mean Platelet Volume 10.7; Monocytes # (A) 0.8 k/uL (0-1.0); Monocytes % (A) 9 %; Neutrophils # (A) 6.9 k/uL (1.3-7.7); Neutrophils % (A) 78 %; Platelet Count 261 k/uL (150-450); RBC 2.62 m/uL (4.30-5.90); RDW 13.2 % (11.5-15.5); WBC 8.8 k/uL (3.8-10.6)
[2023-08-23] MEDS: SODIUM BICARBONATE TAB 650 MG TAB PO SCH ×2 (08:55→21:50)
[2023-08-23] MEDS: metFORMIN 500 MG TAB PO SCH ×2 (08:55→21:49)
[2023-08-23] MEDS: CALCIUM CARB-VIT D 500 MG-5 MCG TAB PO SCH (08:55)
[2023-08-23] MEDS: hydrALAZINE HCL 25 MG TAB PO SCH ×4 (08:55→21:50)
[2023-08-23] MEDS: amLODIPine 10 MG TAB PO SCH (08:55)
[2023-08-23] MEDS: ATORVASTATIN 80 MG TAB PO SCH (08:55)
[2023-08-23] MEDS: METOPROLOL TARTRATE 50 MG TAB PO SCH ×2 (08:55→21:58)
[2023-08-23] MEDS: MAGNESIUM OXIDE 400 MG TAB PO SCH (08:55)
[2023-08-23] MEDS: NON FORMULARY DRUG (Liraglutide [Victoza 3-Pak] 0.6 MG/0.1 ML Ml) SQ SCH (08:56)
[2023-08-23 08:57] LABS: African American GFR (CKD) 47 (>60 ml/min/1.73 sqM); Anion Gap 6 mmol/L; Blood Urea Nitrogen 34 mg/dL (9-20); Calcium 8.3 mg/dL (8.4-10.2); Carbon Dioxide 29 mmol/L (22-30); Chloride 100 mmol/L (98-107); Glucose 109 mg/dL (74-99); Non-African American GFR(CKD) 41 (>60 ml/min/1.73 sqM); Potassium 4.2 mmol/L (3.5-5.1); Sodium 135 mmol/L (137-145)
--- NOTE | 2023-08-23 10:53 | XR ---
EXAMINATION TYPE: XR chest 1V portable DATE OF EXAM: 08/23/2023 COMPARISON: 08/19/2023 INDICATION: Dyspnea TECHNIQUE: Single frontal view of the chest is obtained. FINDINGS: The heart size is normal. The pulmonary vasculature is normal. The lungs are clear. IMPRESSION: 1. No acute pulmonary process.
[2023-08-23 11:49] LABS: Glucose,Whole Blood 124 mg/dL (70-110)
[2023-08-23] MEDS: APIXABAN 5 MG TAB PO SCH (12:14)
[2023-08-23] MEDS: FUROSEMIDE 40 MG TAB PO SCH (12:14)
[2023-08-23] MEDS: SODIUM CHLORIDE 0.45% 1,000 ML IV SCH (13:33)
--- NOTE | 2023-08-23 13:52 | P.PN ---
Subjective Progress Note Date: 08/23/23 Principal diagnosis: Left upper extremity DVT, and metastatic urothelial carcinoma This is a 73-year-old white male, familiar to my service, I saw this patient and his last admission to the hospital a few weeks ago, and the patient was discharged on 08/10. Patient is known to have history of bladder cancer, he had previous chemo and radiation treatment he also had history of paroxysmal atrial fibrillation, and he was discovered to have on the last admission a left neck mass, I recommended ENT evaluation, patient underwent needle biopsy of the mass, and came back non-small cell carcinoma consistent with urothelial carcinoma. Patient was last admitted a few weeks ago with atrial fibrillation and RVR, and he was discharged home on eliquis and his Coreg was changed to metoprolol. On the last admission he had acute kidney injury with hydronephrosis on the right side, and he also had swelling of the left upper extremity now he is developing swelling of the lower extremities as well as dyspnea on exertion. His chest x- ray showed no evidence of congestive heart failure, patient does have significant fluid retention, and I was asked to see him on consultation. On admission the patient received Lasix and his chest x-ray showed cardiomegaly but no evidence of congestive heart failure and no evidence of pleural effusions. Patient had a venous Doppler on this admission and he was found to have superficial thrombosis noted in the left cephalic vein. And there was nonocclusive deep vein thromboses within the internal jugular vein. No CT angiogram of the chest was done although the patient does have a very likely possibility of pulmonary embolism considering his venous thromboses as noted above. Nonetheless the patient is on anticoagulation therapy. Patient is maintained on eliquis 5 mg by mouth twice a day since his last admission. Labs today showed W CR 9.5 hemoglobin 9.6 electrolytes are normal BUN is 34 creatinine 1.50 Patient was reevaluated today on 08/21/23, patient is feeling better today, hardly any significant pulmonary symptoms, patient has been on diuretics for his mostly findings of right sided congestive heart failure. Chest x-ray yesterday showed cardiomegaly but no evidence of congestive heart failure, no infiltrate, and no pleural effusions. Patient remains on anticoagulation therapy , for his DVT and for his paroxysmal atrial fibrillation. Labs today were reviewed he had a relatively normal basic metabolic profile creatinine is 1.37 better today compared to the last 2 days, I am still reluctant to consider a CT angiogram of the chest on this patient considering his renal profile Patient was reevaluated today on 08/22/23, pulmonary-santiago the patient is feeling fine, however early this morning the patient has been having intermittent episodes of nausea and vomiting. Some vague abdominal discomfort, on physical e xamination his abdomen benign, hence I doubt any surgical acute abdomen, patient apparently had some symptoms of gastritis with nausea and vomiting. No diarrhea, no fever, no chills, no hemoptysis, he had minimal intermittent episodes of cough. Basic metabolic profile is normal creatinine is down to 1.37, improving Reevaluated today on 08/23/23 patient is basically about the same, he had 1 episo de of vomiting yesterday, but none today. Continues to have some intermittent episodes of cough and some wheezing, no fever no chills no hemoptysis, follow-up chest x-ray showed no evidence of active disease WBC count is 8.8 hemoglobin 8.9 basic metabolic profile is normal creatinine 1.67, creatinine has been ranging between 1.31 and 1.67 since admission. Objective - Vital Signs Vital signs: Vital Signs Temp 98.2 F 08/23/23 12:00 Pulse 79 08/23/23 12:00 Resp 19 08/23/23 12:00 BP 149/63 08/23/23 12:00 Pulse Ox 94 L 08/23/23 12:00 FiO2 Intake & Output 08/22/23 08/23/23 08/23/23 18:59 06:59 18:59 Intake Total 180 Output Total 700 475 200 Balance -520 -475 -200 Weight 89.2 kg 89.2 kg Intake: Oral 180 Output: Urine 700 475 200 Other: Voiding Method Toilet Toilet Toilet Urinal Urinal Urinal # Bowel Movements 1 - Exam Physical Exam: Revealed a 73-year-old white male in no distress, remains on 2 L nasal cannula with O2 saturation of 94-96% HEENT:[Neck is supple.] [No neck masses.] [No thyromegaly.] [No JVD.] Chest: [Rhonchi on forced expiratory maneuver. Especially on the right side. Cardiac Exam: [Normal S1 and S2, no S3 gallop, 2/6 systolic murmur thought the precordium Abdomen: [Soft, nontender, no megaly, no rebound, no guarding, normal bowel sounds.] Extremities: 1+ bilateral lower extremities edema and left upper extremity edema is noted. Neurological Exam: [No focal neurologic deficit.] Alert oriented 3 Psychiatric: Normal mood, affect and normal mental status examination Skin: No rashes - Labs CBC & Chem 7: 08/23/23 07:42 08/23/23 07:42 Labs: Abnormal Lab Results - Last 24 Hours (Table) 08/22/23 08/22/23 08/23/23 Range/Units 16:54 20:31 05:51 RBC (4.30-5.90) m/uL Hgb (13.0-17.5) gm/dL Hct (39.0-53.0) % MCV (80.0-100.0) fL Lymphocytes # (1.0-4.8) k/uL Sodium (137-145) mmol/L BUN (9-20) mg/dL Creatinine (0.66-1.25) mg/dL Glucose (74-99) mg/dL POC Glucose (mg/dL) 214 H 182 H 126 H (70-110) mg/dL Calcium (8.4-10.2) mg/dL 08/23/23 08/23/23 08/23/23 Range/Units 07:42 07:42 11:48 RBC 2.62 L (4.30-5.90) m/uL Hgb 8.9 L (13.0-17.5) gm/dL Hct 27.4 L (39.0-53.0) % MCV 104.6 H (80.0-100.0) fL Lymphocytes # 0.8 L (1.0-4.8) k/uL Sodium 135 L (137-145) mmol/L BUN 34 H (9-20) mg/dL Creatinine 1.67 H (0.66-1.25) mg/dL Glucose 109 H (74-99) mg/dL POC Glucose (mg/dL) 124 H (70-110) mg/dL Calcium 8.3 L (8.4-10.2) mg/dL Assessment and Plan Assessment: Impression: Shortness of breath, related to his paroxysmal atrial fibrillation could also be related to thromboembolic disease/pulmonary embolism, could also be related to his moderate mitral regurgitation Left upper extremity deep vein thrombosis Metastatic urothelial carcinoma to the neck Hypothyroidism Coronary artery disease and previous stenting Valvular heart disease/moderate mitral regurgitation Type 2 diabetes poorly controlled Dyslipidemia Benign essential hypertension History of bladder cancer and previous chemo and radiation treatment Recommendation: Reassured about his follow-up chest x-ray today Continue anticoagulation therapy/eliquis 5 mg twice a day Continue diuretics, patient is on Lasix 40 mg by mouth daily Continue to monitor renal profile while on diuretics We'll clear for discharge once he is cleared by other consultants and his GI symptoms have resolved We will continue to follow Time with Patient: Less than 30
--- NOTE | 2023-08-23 15:21 | P.CONS ---
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 He has been on Eliquis 5mg BID for atrial fibrillation. He has been taking his medication as prescribed. He presented back to the emergency department on 08/17/2023 with concerns of swelling of bilateral lower extremities and his left upper extremity. During his hospitalization he had a venous duplex of lower extremities which was negative bilaterally for DVT. He also had a venous duplex of the left upper extremity that reported a nonocclusive deep vein thrombus seen within the internal jugular vein and a superficial thrombus seen within the left cephalic vein. He states that a few nights ago he vomited coffee-ground emesis and then again a small amount last night. He has had no further vomiting. States that he has a lot of coughing up mucus. His Eliquis was put on hold yesterday evening. He denies any abdominal pain, shortness of breath or chest pain. He does have nausea but no further vomiting today. Denies any blood in his stool or black stool. No previous EGD or colonoscopy. He does have a history of chronic anemia. Hemoglobin on admission was 11.1 with a steady decline over the past 4 days today 8.9. Review of Systems REVIEW OF SYSTEMS: CARDIOPULMONARY: No chest pain. Patient does have shortness of breath at times. Lower extremity swelling. Gastrointestinal: No abdominal pain. Nausea. Vomited 1 during this hospitalization and reported coffee-ground emesis. No rectal bleeding, or melena. GENITOURINARY: No dysuria or hematuria. MUSCULOSKELETAL: Reports normal range of motion., Joint pain. SKIN: No rashes. No jaundice. Large left neck mass. ENDOCRINE: No chills, fevers. No excessive weight gain or loss. No polydipsia or polyuria. PSYCHIATRIC: Unremarkable. NEUROLOGY: No change in mental status. Denies dizziness, headache. ENT: Vision unremarkable. CONSTITUTIONAL: No recent weight loss. No fever, chills, night sweats. Past Medical History Past Medical History: Coronary Artery Disease (CAD), Cancer, Diabetes Mellitus, Hyperlipidemia, Hypertension, Myocardial Infarction (AL), Osteoarthritis (OA) Additional Past Medical History / Comment(s): Bladder cancer stage with treatment, in remission since 2020. IDDM type II, post polio syndrome,leg length discrepancy, bronchitis, chronic low back pain. 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 He is independent. He just started ambulating with a cane or walker Smoking Status: Former smoker Past Alcohol Use History: None Reported Additional Past Alcohol Use History / Comment(s): Pt started smoking in 1968 and quit 07/21/19. Prior ETOH abuse-pt states he hasnt had alcohol in months Past Drug Use History: None Reported - Past Family History Father History Unknown: Yes Mother Additional Family Medical History / Comment(s): Mother of in a MVA when pt was 15 yrs old. Brother(s) Additional Family Medical History / Comment(s): Pt has one brother who of a bowel problem and another brother that of a ruptured aneurysm. Medications and Allergies Home Medications Medication Instructions Recorded Confirmed Type Aspirin 81 mg PO DAILY #90 chewable 07/25/19 08/17/23 Rx Atorvastatin [Lipitor] 80 mg PO DAILY 05/13/20 08/17/23 History Liraglutide [Victoza 3-Sam] 1.8 mg SQ DAILY 08/04/23 08/17/23 History metFORMIN HCL ER [Glucophage XR] 500 mg PO BID 08/04/23 08/17/23 History Apixaban [Eliquis] 5 mg PO BID #60 tab 08/10/23 08/17/23 Rx Magnesium Oxide [Mag-Ox] 400 mg PO DAILY #30 tab 08/10/23 08/17/23 Rx Metoprolol Tartrate [Lopressor] 50 mg PO BID #60 tab 08/10/23 08/17/23 Rx amLODIPine [Norvasc] 10 mg PO DAILY #30 tab 08/10/23 08/17/23 Rx hydrALAZINE HCL [Apresoline] 50 mg PO QID #120 tab 08/10/23 08/17/23 Rx Albuterol Sulfate [Albuterol 1 puff INHALATION RT-Q4H PRN 08/17/23 08/17/23 History Sulfate Hfa] Calcium Carb-Vit D 500Mg-5Mcg 1 tab PO DAILY 08/17/23 08/17/23 History [Oscal 500+D 5 Mcg (200 Iu)] HYDROcodone/APAP 5-325MG [[place] 1 tab PO Q6H PRN 08/17/23 08/17/23 History 5-325] Levofloxacin [Levaquin] See Taper PO DAILY 08/17/23 08/17/23 History metroNIDAZOLE [Flagyl] 500 mg PO TID 08/17/23 08/17/23 History Allergies Allergy/AdvReac Type Severity Reaction Status Date / Time No Known Allergies Allergy Verified 08/17/23 12:11 Physical Exam Vitals: Vital Signs Temp Pulse Pulse Pulse Resp BP Pulse Ox 08/23/23 08:09 98.5 F 85 20 130/58 92 L 08/23/23 08:03 96 08/23/23 08:00 85 20 08/23/23 04:00 98 F 84 20 140/62 96 08/23/23 02:00 78 18 08/23/23 00:00 98.4 F 78 18 166/61 94 L 08/22/23 20:00 98.2 F 95 89 18 130/60 94 L 08/22/23 17:55 95 20 152/53 88 L 08/22/23 15:27 92 08/22/23 15:17 88 08/22/23 11:48 98.6 F 79 18 147/63 94 L Intake and Output 08/22/23 08/23/23 08/23/23 22:59 06:59 14:59 Intake Total 180 Output Total 425 350 Balance -245 -350 Intake: Oral 180 Output: Urine 425 350 Other: Voiding Method Toilet Toilet Toilet Urinal Urinal Urinal Weight 89.2 kg General appearance: The patient is alert, oriented, appears in no acute distress. HET: Head is normocephalic and atraumatic. Conjunctiva pink. Sclera anicteric. Neck: Supple without lymphadenopathy. Trachea midline. Left neck mass. Heart: Regular. Lungs: Equal expansion, normal respiratory effort. Abdomen: Soft, nontender, nondistended with bowel sounds. No guarding or rigidity. Skin: No rashes. No jaundice. Extremities: Normal skin color and turgor. Bilateral lower extremity edema. Left upper extremity swelling with compression sleeve in place. Neurological: No focal deficits. Alert and oriented x3. Results CBC & Chem 7: 08/23/23 07:42 08/23/23 07:42 Labs: Abnormal Lab Results - Last 24 Hours (Table) 08/22/23 08/22/23 08/22/23 Range/Units 11:47 16:54 20:31 RBC (4.30-5.90) m/uL Hgb (13.0-17.5) gm/dL Hct (39.0-53.0) % MCV (80.0-100.0) fL Lymphocytes # (1.0-4.8) k/uL Sodium (137-145) mmol/L BUN (9-20) mg/dL Creatinine (0.66-1.25) mg/dL Glucose (74-99) mg/dL POC Glucose (mg/dL) 200 H 214 H 182 H (70-110) mg/dL Calcium (8.4-10.2) mg/dL 08/23/23 08/23/23 08/23/23 Range/Units 05:51 07:42 07:42 RBC 2.62 L (4.30-5.90) m/uL Hgb 8.9 L (13.0-17.5) gm/dL Hct 27.4 L (39.0-53.0) % MCV 104.6 H (80.0-100.0) fL Lymphocytes # 0.8 L (1.0-4.8) k/uL Sodium 135 L (137-145) mmol/L BUN 34 H (9-20) mg/dL Creatinine 1.67 H (0.66-1.25) mg/dL Glucose 109 H (74-99) mg/dL POC Glucose (mg/dL) 126 H (70-110) mg/dL Calcium 8.3 L (8.4-10.2) mg/dL Assessment and Plan (1) Coffee ground emesis Narrative/Plan: 73-year-old male with multiple comorbidities recently diagnosed with metastatic urothelial cancer who was recently hospitalized and discharged home and then return back for concerns for lower extremity swelling. Patient came in with a hemoglobin of 11.1 enhances had a steady decline in his hemoglobin with today being 8.9. He reported that he had 2 episodes prior to admission of coffee- ground emesis and one small coffee-ground emesis yesterday. Otherwise he has some nausea but no vomiting. Denies abdominal pain and has had no history of peptic ulcer disease or GI bleed. No prior EGD or colonoscopy. Unclear etiology at this time however need to consider possible peptic ulcer disease, AVM, gastritis, esophagitis or other possible etiologies. Eliquis was put on ho ld and we'll plan for EGD tomorrow. Current Visit: Yes Status: Acute Code(s): K92.0 - HEMATEMESIS SNOMED C ode(s): 97499904 (2) Chronic anemia Current Visit: Yes Status: Acute Code(s): D64.9 - ANEMIA, UNSPECIFIED SNOMED Code(s): 968204424 (3) Metastatic urothelial carcinoma Current Visit: Yes Status: Acute Priority: High Code(s): C79.10 - SECOND JUANA MALIGNANT NEOPLASM OF UNSPECIFIED URINARY ORGANS SNOMED Code(s): 82272580 Plan: 1. Continue symptomatic and supportive care 2. Nothing by mouth after midnight 3. Hold Eliquis 4. Protonix 40 mg daily 5. Avoid NSAIDs 6. Tentative plan for EGD tomorrow Thank you for this consultation, we'll continue to follow. Dr. Thuan Mart I agree with the dictator's note, documented as a scribe by Macrina Bynum.
[2023-08-23 16:27] LABS: Glucose,Whole Blood 204 mg/dL (70-110)
[2023-08-23 19:32] LABS: Glucose,Whole Blood 190 mg/dL (70-110)
--- NOTE | 2023-08-23 21:48 | P.PN ---
Progress Note - Text Progress Note Date: 08/23/23 Pleasant 72-year-old patient who follows with Dr. Johnny Rubio./Mid-level provider-Kareen. Chronic stable medical conditions include CAD with stent in 2018, diabetes, hypertension, hyperlipidemia, osteoporosis, bladder cancer with treatment in remission and cystoscopy 2020, patient had right hip surgery in October of this year now does use a walker when he goes outside. Otherwise a cane. Patient was recently discharged from the hospital 08/04-08/14 left sided neck mass concerning for malignancy Presents today because of increasing swelling of arms and legs. Also patient complaining of from little shortness of breath occasional coughing but no chest pain He says he cannot go for his urine but he denies any GI problems No headache dizziness weakness numbness. he denies smoking, Alcohol or illicit tracts, He was not discharged on Lasix Vitals stable Labs are showing mild leukocytosis of 11.7, last time he was discharged his WBCs were 18.2. Hemoglobin 11.1, rest of CBC, INR is unremarkable. Creatinine 1.3 which is at baseline, potassium 5.4, magnesium 1.2. TSH is high at 18 and free T4 is low at 0.65 EKG showing normal sinus rhythm at [address]-T changes. Mild ST depression on the sixth Chest x-ray: Cardiomegaly with pulmonary vascular congestion and right pleural effusion suggestive of CHF. Venous Doppler: Superficial thrombus seen within the left cephalic vein. Nonocclusive deep venous thrombosis seen in the internal jugular vein 08/18/2023 Patient sitting up in bed, states that his breathing is slightly better, he can lie flat as he describes. Patient is not working at baseline, confirmed. The at bedside. History the have significant swelling of arms and legs. Patient was started on IV Lasix 40 mg twice daily and he continued on home dose of liquids 5 mg. Also patient is started on small dose of levothyroxine 25 g. 08/19/2023 Patient's no breathing difficulties, history and embedded and not walking, his main problem is the swelling. Patient currently on IV Lasix twice daily, he says he did not urinate and much. We'll discuss with the staff to check bladder scan. He was started on levothyroxine 25 g. Oncology team on the case, continue with Eliquis for his upper extremity DVT. Also present college patient will require PET CT as an outpatient and then follow up with also 08/20/2023: Up in a recliner. Bouts of coughing. Clear sputum. No fever no chills. Breathing better. Eating well. at the bedside. We will apply sleeve to the left upper extremity August 21: Reclining in bed. Coughing and sputum production much better. On DuoNeb and Pulmicort started yesterday. August 22: Patient vomited overnight a few times. Some coffee-ground emesis this morning. Put on clear liquids. GI consulted. Protonix added. August 23: Patient should have 1 more episode of coffee-ground emesis yesterday evening. Clear liquids. Nothing by mouth after midnight. Remains off eliquis. Plan for EGD tomorrow by GI. Active Medications Acetaminophen (Acetaminophen Tab 325 Mg Tab) 650 mg PO Q6HR PRN PRN Reason: Mild Pain or Fever > 100.5 Hydrocodone Bitart/Acetaminophen (Hydrocodone/Apap 5-325mg 1 Each Tab) 1 each PO Q6H PRN PRN Reason: Pain Albuterol Sulfate (Albuterol Nebulized 2.5 Mg/3 Ml) 2.5 mg INHALATION RT-Q4H PRN PRN Reason: Shortness Of Breath Last Admin: 08/19/23 13:37 Dose: 2.5 mg Albuterol/Ipratropium (Ipratropium-Albuterol 3 Ml Neb) 3 ml INHALATION RT-QID [facility] [place] Last Admin: 08/23/23 15:43 Dose: 3 ml Amlodipine Besylate (Amlodipine 10 Mg Tab) 10 mg PO DAILY [facility] [place] Last Admin: 08/23/23 08:55 Dose: 10 mg Atorvastatin Calcium (Atorvastatin 80 Mg Tab) 80 mg PO DAILY [facility] [place] Last Admin: 08/23/23 08:55 Dose: 80 mg Benzonatate (Benzonatate 100 Mg Cap) 100 mg PO TID PRN PRN Reason: Cough Last Admin: 08/19/23 13:22 Dose: 100 mg Budesonide (Budesonide 1 Mg/2 Ml Nebu) 1 mg INHALATION RT-BID [facility] [place] Last Admin: 08/23/23 08:08 Dose: Not Given Calcium Carbonate (Calcium Carb-Vit D 500 Mg-5 Mcg Tab) 1 each PO DAILY [facility] [place] Last Admin: 08/23/23 08:55 Dose: 1 each Furosemide (Furosemide 40 Mg Tab) 40 mg PO DAILY [facility] [place] Last Admin: 08/23/23 12:14 Dose: Not Given Guaifenesin (Guaifenesin Syrup 100mg/5ml 200 Mg/10 Ml Cup) 200 mg PO Q6HR PRN PRN Reason: Cough Last Admin: 08/19/23 20:47 Dose: 200 mg Hydralazine HCl (Hydralazine Hcl 25 Mg Tab) 75 mg PO QID [facility] [place] Last Admin: 08/23/23 17:12 Dose: 75 mg Sodium Chloride (Saline 0.45%) 1,000 mls @ 50 mls/hr IV .Q20H [facility] [place] Last Admin: 08/23/23 13:33 Dose: 50 mls/hr Insulin Aspart (Insulin Aspart (Novolog) 100 Unit/Ml Vial) 0 unit SQ ACHS [facility] [place]; Protocol Last Admin: 08/23/23 17:06 Dose: 4 unit Levothyroxine Sodium (Levothyroxine 25 Mcg Tab) 25 mcg PO DAILY@0630 [facility] [place] Last Admin: 08/23/23 06:32 Dose: 25 mcg Magnesium Oxide (Magnesium Oxide 400 Mg Tab) 400 mg PO DAILY [facility] [place] Last Admin: 08/23/23 08:55 Dose: 400 mg Metformin HCl (Metformin 500 Mg Tab) 500 mg PO BID [facility] [place] Last Admin: 08/23/23 08:55 Dose: 500 mg Metoclopramide HCl (Metoclopramide 5 Mg/Ml 2 Ml Vial) 10 mg IVP Q6HR PRN PRN Reason: Nausea And Vomiting Last Admin: 08/22/23 21:25 Dose: 10 mg Metoprolol Tartrate (Metoprolol Tartrate 50 Mg Tab) 50 mg PO BID [facility] [place] Last Admin: 08/23/23 08:55 Dose: 50 mg Naloxone HCl (Naloxone 0.4 Mg/Ml 1 Ml Vial) 0.2 mg IV Q2M PRN PRN Reason: Opioid Reversal Non-Formulary Medication (Liraglutide [Victoza 3-Sam]) 1.8 mg SQ DAILY [facility] [place] Last Admin: 08/23/23 08:56 Dose: Not Given Pantoprazole Sodium (Pantoprazole 40 Mg Tablet) 40 mg PO AC-BID [facility] [place] Last Admin: 08/23/23 17:06 Dose: 40 mg Sodium Bicarbonate (Sodium Bicarbonate Tab 650 Mg Tab) 650 mg PO BID [facility] [place] Last Admin: 08/23/23 08:55 Dose: 650 mg Social history: 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 Patient Smoked for 50 Years Stopped in 2019. Also Is Drinking Excessive Alcohol up to 2019. Physical examination: VITAL SIGNS: 98.1, 89, 18, 140/62, 93% room air GENERAL: Reclining in bed, tired EYES: Pupils equal. Conjunctiva normal. HEENT: External appearance of nose and ears normal, oral cavity grossly normal. NECK: JVD not raised; masses not palpable. Hard mass of the left upper neck going to the mandible. Hard. HEART: Heart sounds irregular; no edema. LUNGS: Respiratory rate normal; decreased breath sounds. ABDOMEN: Soft, nontender, liver spleen not palpable, no masses palpable. PSYCH: Alert and oriented x3; mood and affect normal EXTREMITY: Left upper extremity swelling compared to the right MUSCULOSKELETAL:No Clubbing/cyanosis;muscles-grossly intact. OA INVESTIGATIONS, reviewed in the clinical context: August 23: White count 8.8 hemoglobin 8.9 potassium 4.2 creatinine 1.67 August 21: Sodium 134 potassium 4.5 BUN 31 creatinine 1.37 August 20: White count 9.5 hemoglobin 9.6 (219 potassium 5.4 BUN 34 creatinine 1.50 Ultrasound Doppler of the left upper extremity: Non occlusive DVT in the eye JVD. Superficial thrombosis within the left cephalic vein. . Recent investigations: 2-D echocardiogram: Preserved LV function. Mild inferior septal hypokinesis. CT soft tissue neck without contrast: Enlargement of the left parotid gland with surrounding the inflammatory attenuation as well as skeletal thinking. Also inflammatory thickening of the left sternocleidomastoid musculature. Surrounding reactive adenopathy. No obstructing Loss. CT chest abdomen pelvis: Small bowel guarded to 3 cm. Mild right-sided hydronephrosis. Gallstones Chest x-ray film personally reviewed by me-hyperinflation. Some pulmonary artery prominence EKG tracing personally reviewed by me-possible ectopic atrial rhythm. Ultrasound kidney: Mild right-sided hydronephrosis. Assessment: -Acute congestive heart exacerbation from diastolic dysfunction 50-55%.: Better 40 mg a day oral Lasix-hold today Followed by cardiology -Recurrent coffee-ground emesis., The patient was on aspirin and liquids. Consult GI.-Pending endoscopy. PPI Both eliquis and aspirin held. Clear liquid diet. -Acute COPD exacerbation and a prior smoker: Better DuoNeb 4 times a day. Nebulized Pulmicort 1 mg twice a day. Paroxysmal atrial fibrillation - sinus rhythm Lopressor 50 mg twice a day Eliquis -Essential hypertension Lopressor 50 mg twice a day. Amlodipine 10 mg a day Hydralazine 75 mg 4 times a day -Mild hydronephrosis Being followed by urology -Metastatic urothelial carcinoma: -Completed treatment with concurrent chemo/RT in 06/2020. Was following up for observation in clinic through 11/2021 with no evidence of recurrence. Stopped f/u with urology in February 2022 due to insurance reasons, and has not had f/u since -Progressing left neck mass. Biopsy of the lt neck mass revealed metastatic non- small cell carcinoma consistent with metastatic high-grade urothelial carcinoma. Results were discussed with patient and spouse -Will reschedule PET CT, and pending hospitalization may have to reschedule clinic f/u with Dr. Banda -Hyperkalemia from underlying CK D: Improved Kayexalate -Non occlusive DVT in the left internal jugular vein. Superficial thrombosis within the left cephalic vein. Eliquis Sleeve left upper extremity Consult vascular - metabolic acidosis from renal failure: Sodium bicarbonate -Hypocalcemia Os-Car vitamin D -Left upper neck mass. Metastatic non-small cell carcinoma consistent with metastatic high-grade urothelial carcinoma Follow-up with Dr. Cardoza from oncology -CAD with stent 2018 Aspirin. Coreg -Hyperlipidemia Lipitor -Diabetes mellitus type 2 on oral hypoglycemic Follow Accu-Cheks and sliding scale Victoza. Metformin. -Full code. [Discussed with patient and present.] Clear liquid diet. Nothing by mouth after midnight. Patient is off aspirin and eliquis. PPI. For EGD tomorrow.
[2023-08-24] MEDS: HYDROcodone/APAP 5-325MG 1 EACH TAB PO PRN ×2 (02:24→21:48)
[2023-08-24 06:14] LABS: Glucose,Whole Blood 132 mg/dL (70-110)
[2023-08-24] MEDS: INSULIN ASPART (NovoLOG) 100 UNIT/ML VIAL SQ SCH ×4 (06:18→21:03)
[2023-08-24] MEDS: IPRATROPIUM-ALBUTEROL 3 ML NEB INHALATION SCH ×4 (07:45→21:08)
[2023-08-24] MEDS: BUDESONIDE 1 MG/2 ML NEBU INHALATION SCH ×2 (07:45→21:08)
[2023-08-24 09:26] LABS: African American GFR (CKD) 40 (>60 ml/min/1.73 sqM); Anion Gap 8 mmol/L; Blood Urea Nitrogen 33 mg/dL (9-20); Calcium 7.8 mg/dL (8.4-10.2); Carbon Dioxide 26 mmol/L (22-30); Chloride 100 mmol/L (98-107); Glucose 100 mg/dL (74-99); Non-African American GFR(CKD) 35 (>60 ml/min/1.73 sqM); Potassium 4.1 mmol/L (3.5-5.1); Sodium 134 mmol/L (137-145)
[2023-08-24 09:27] LABS: Basophils % (A) 0 %; Eosinophils # (A) 0.3 k/uL (0-0.7); Eosinophils % (A) 4 %; HCT 26.3 % (39.0-53.0); HGB 8.8 gm/dL (13.0-17.5); Lymphocytes # (A) 0.7 k/uL (1.0-4.8); Lymphocytes % (A) 9 %; MCH 34.5 pg (25.0-35.0); MCHC 33.2 g/dL (31.0-37.0); MCV 103.8 fL (80.0-100.0); Macrocytosis Slight; Mean Platelet Volume 11.3; Monocytes # (A) 0.6 k/uL (0-1.0); Monocytes % (A) 8 %; Neutrophils # (A) 5.5 k/uL (1.3-7.7); Neutrophils % (A) 77 %; Platelet Count 248 k/uL (150-450); RBC 2.54 m/uL (4.30-5.90); WBC 7.1 k/uL (3.8-10.6)
[2023-08-24] MEDS: SODIUM CHLORIDE 0.45% 1,000 ML IV SCH (09:38)
[2023-08-24] MEDS: amLODIPine 10 MG TAB PO SCH (09:39)
[2023-08-24] MEDS: LEVOTHYROXINE 25 MCG TAB PO SCH (09:39)
[2023-08-24] MEDS: CALCIUM CARB-VIT D 500 MG-5 MCG TAB PO SCH (09:39)
[2023-08-24] MEDS: MAGNESIUM OXIDE 400 MG TAB PO SCH (09:39)
[2023-08-24] MEDS: metFORMIN 500 MG TAB PO SCH (09:39)
[2023-08-24] MEDS: FUROSEMIDE 40 MG TAB PO SCH (09:39)
[2023-08-24] MEDS: hydrALAZINE HCL 25 MG TAB PO SCH ×4 (09:39→21:47)
[2023-08-24] MEDS: ATORVASTATIN 80 MG TAB PO SCH (09:39)
[2023-08-24] MEDS: PANTOPRAZOLE 40 MG TABLET PO SCH ×2 (09:39→18:29)
[2023-08-24] MEDS: SODIUM BICARBONATE TAB 650 MG TAB PO SCH ×2 (09:39→21:47)
[2023-08-24] MEDS: METOPROLOL TARTRATE 50 MG TAB PO SCH ×2 (09:39→21:47)
[2023-08-24] MEDS: NON FORMULARY DRUG (Liraglutide [Victoza 3-Pak] 0.6 MG/0.1 ML Ml) SQ SCH (09:40)
--- NOTE | 2023-08-24 11:07 | P.PN ---
Progress Note - Text Progress Note Date: 08/24/23 Patient was seen this morning. He denies any further coffee-ground emesis or any emesis. Denies abdominal pain. Hemoglobin stable at 8.8. Discussed with patient that since he is off of his anticoagulation we would recommend further evaluation with upper endoscopy. Patient is agreeable. This is planned for today. Dr. Thuan Mart I agree with the dictator's note, documented as a scribe by Macrina Bynum.
[2023-08-24 11:32] LABS: Glucose,Whole Blood 112 mg/dL (70-110)
--- NOTE | 2023-08-24 13:07 | P.PN ---
Subjective Progress Note Date: 08/24/23 Principal diagnosis: Left upper extremity DVT, and metastatic urothelial carcinoma This is a 73-year-old white male, familiar to my service, I saw this patient and his last admission to the hospital a few weeks ago, and the patient was discharged on 08/10. Patient is known to have history of bladder cancer, he had previous chemo and radiation treatment he also had history of paroxysmal atrial fibrillation, and he was discovered to have on the last admission a left neck mass, I recommended ENT evaluation, patient underwent needle biopsy of the mass, and came back non-small cell carcinoma consistent with urothelial carcinoma. Patient was last admitted a few weeks ago with atrial fibrillation and RVR, and he was discharged home on eliquis and his Coreg was changed to metoprolol. On the last admission he had acute kidney injury with hydronephrosis on the right side, and he also had swelling of the left upper extremity now he is developing swelling of the lower extremities as well as dyspnea on exertion. His chest x- ray showed no evidence of congestive heart failure, patient does have significant fluid retention, and I was asked to see him on consultation. On admission the patient received Lasix and his chest x-ray showed cardiomegaly but no evidence of congestive heart failure and no evidence of pleural effusions. Patient had a venous Doppler on this admission and he was found to have superficial thrombosis noted in the left cephalic vein. And there was nonocclusive deep vein thromboses within the internal jugular vein. No CT angiogram of the chest was done although the patient does have a very likely possibility of pulmonary embolism considering his venous thromboses as noted above. Nonetheless the patient is on anticoagulation therapy. Patient is maintained on eliquis 5 mg by mouth twice a day since his last admission. Labs today showed W CR 9.5 hemoglobin 9.6 electrolytes are normal BUN is 34 creatinine 1.50 Patient was reevaluated today on 08/21/23, patient is feeling better today, hardly any significant pulmonary symptoms, patient has been on diuretics for his mostly findings of right sided congestive heart failure. Chest x-ray yesterday showed cardiomegaly but no evidence of congestive heart failure, no infiltrate, and no pleural effusions. Patient remains on anticoagulation therapy , for his DVT and for his paroxysmal atrial fibrillation. Labs today were reviewed he had a relatively normal basic metabolic profile creatinine is 1.37 better today compared to the last 2 days, I am still reluctant to consider a CT angiogram of the chest on this patient considering his renal profile Patient was reevaluated today on 08/22/23, pulmonary-santiago the patient is feeling fine, however early this morning the patient has been having intermittent episodes of nausea and vomiting. Some vague abdominal discomfort, on physical e xamination his abdomen benign, hence I doubt any surgical acute abdomen, patient apparently had some symptoms of gastritis with nausea and vomiting. No diarrhea, no fever, no chills, no hemoptysis, he had minimal intermittent episodes of cough. Basic metabolic profile is normal creatinine is down to 1.37, improving Reevaluated today on 08/23/23 patient is basically about the same, he had 1 episo de of vomiting yesterday, but none today. Continues to have some intermittent episodes of cough and some wheezing, no fever no chills no hemoptysis, follow-up chest x-ray showed no evidence of active disease WBC count is 8.8 hemoglobin 8.9 basic metabolic profile is normal creatinine 1.67, creatinine has been ranging between 1.31 and 1.67 since admission. Reevaluated today on 08/24/23, patient is doing well from the pulmonary perspective however he seems to have a more GI symptoms and intermittent episodes of nausea and vomiting but no abdominal pain. He is scheduled to have EGD today. Hence his anticoagulation therapy is presently on hold. WBC count is 7.1 hemoglobin 8.8 electrolytes are normal renal profile showed a creatinine of 1.89, slightly worse, the patient may benefit from gentle hydration since the patient is experiencing episodes of nausea and vomiting and hardly any oral intake Objective - Vital Signs Vital signs: Vital Signs Temp 98.1 F 08/24/23 11:44 Pulse 66 08/24/23 11:44 Resp 16 08/24/23 11:44 BP 125/58 08/24/23 11:44 Pulse Ox 92 L 08/24/23 08:00 FiO2 Intake & Output 08/23/23 08/24/23 08/24/23 18:59 06:59 18:59 Intake Total 540 120 Output Total 200 100 Balance -200 440 120 Weight 89.2 kg 90 kg Intake: Oral 540 120 Output: Urine 200 100 Other: Voiding Method Toilet Toilet Toilet Urinal Urinal Urinal # Bowel Movements 1 - Exam Physical Exam: Revealed a 73-year-old white male in no distress, on room air with O2 saturation 92-92% HEENT:[Neck is supple.] [No neck masses.] [No thyromegaly.] [No JVD.] Chest: [Clear bilaterally today, nor rhonchi no wheezes Cardiac Exam: [Normal S1 and S2, no S3 gallop, 2/6 systolic murmur thought the precordium Abdomen: [Soft, nontender, no megaly, no rebound, no guarding, normal bowel sounds.] Extremities: 1+ bilateral lower extremities edema and left upper extremity edema is noted. Neurological Exam: [No focal neurologic deficit.] Alert oriented 3 Psychiatric: Normal mood, affect and normal mental status examination Skin: No rashes - Labs CBC & Chem 7: 08/24/23 08:03 08/24/23 08:03 Labs: Abnormal Lab Results - Last 24 Hours (Table) 08/23/23 08/23/23 08/24/23 Range/Units 16:26 19:14 06:06 RBC (4.30-5.90) m/uL Hgb (13.0-17.5) gm/dL Hct (39.0-53.0) % MCV (80.0-100.0) fL Lymphocytes # (1.0-4.8) k/uL Sodium (137-145) mmol/L BUN (9-20) mg/dL Creatinine (0.66-1.25) mg/dL Glucose (74-99) mg/dL POC Glucose (mg/dL) 204 H 190 H 132 H (70-110) mg/dL Calcium (8.4-10.2) mg/dL 08/24/23 08/24/23 08/24/23 Range/Units 08:03 08:03 11:30 RBC 2.54 L (4.30-5.90) m/uL Hgb 8.8 L (13.0-17.5) gm/dL Hct 26.3 L (39.0-53.0) % MCV 103.8 H (80.0-100.0) fL Lymphocytes # 0.7 L (1.0-4.8) k/uL Sodium 134 L (137-145) mmol/L BUN 33 H (9-20) mg/dL Creatinine 1.89 H (0.66-1.25) mg/dL Glucose 100 H (74-99) mg/dL POC Glucose (mg/dL) 112 H (70-110) mg/dL Calcium 7.8 L (8.4-10.2) mg/dL Assessment and Plan Assessment: Impression: Shortness of breath, related to his paroxysmal atrial fibrillation could also be related to thromboembolic disease/pulmonary embolism, could also be related to his moderate mitral regurgitation Left upper extremity deep vein thrombosis Metastatic urothelial carcinoma to the neck Hypothyroidism Coronary artery disease and previous stenting Valvular heart disease/moderate mitral regurgitation Type 2 diabetes poorly controlled Dyslipidemia Benign essential hypertension History of bladder cancer and previous chemo and radiation treatment Recommendation: Agree with the EGD Cut down on diuretics as the patient is developing slight acute on chronic kidney injury Hold diuretics for now Cautious hydration Continue to monitor renal profile We will continue to follow Time with Patient: Less than 30
--- NOTE | 2023-08-24 15:36 | P.PN ---
Subjective Progress Note Date: 08/24/23 Principal diagnosis: DVT, CHF At today's visit patient is resting comfortably in bed. Patient was experiencing coffee ground emesis, reports no n/v at todays visit. GI following, with plans for EGD today. Anticoagulation has been held Objective - Vital Signs Vital signs: Vital Signs Temp 98.2 F 08/24/23 13:05 Pulse 80 08/24/23 15:24 Resp 16 08/24/23 13:05 BP 128/64 08/24/23 13:05 Pulse Ox 96 08/24/23 13:05 FiO2 Intake & Output 08/23/23 08/24/23 08/24/23 18:59 06:59 18:59 Intake Total 540 120 Output Total 200 100 Balance -200 440 120 Weight 89.2 kg 90 kg Intake: Oral 540 120 Output: Urine 200 100 Other: Voiding Method Toilet Toilet Toilet Urinal Urinal Urinal # Bowel Movements 1 - Constitutional General appearance: Present: average body habitus, no acute distress - EENT Eyes: Present: anicteric sclerae ENT: Present: hearing grossly normal - Respiratory Details: breathing even and unlabored - Cardiovascular Details: skin warm and dry - Gastrointestinal General gastrointestinal: Present: soft. Absent: tenderness - Integumentary Integumentary: Absent: cyanotic - Musculoskeletal Musculoskeletal: Present: generalized weakness - Psychiatric Psychiatric: Present: A&O x's 3 - Labs CBC & Chem 7: 08/24/23 08:03 08/24/23 08:03 Labs: Abnormal Lab Results - Last 24 Hours (Table) 08/23/23 08/23/23 08/24/23 Range/Units 16:26 19:14 06:06 RBC (4.30-5.90) m/uL Hgb (13.0-17.5) gm/dL Hct (39.0-53.0) % MCV (80.0-100.0) fL Lymphocytes # (1.0-4.8) k/uL Sodium (137-145) mmol/L BUN (9-20) mg/dL Creatinine (0.66-1.25) mg/dL Glucose (74-99) mg/dL POC Glucose (mg/dL) 204 H 190 H 132 H (70-110) mg/dL Calcium (8.4-10.2) mg/dL 08/24/23 08/24/23 08/24/23 Range/Units 08:03 08:03 11:30 RBC 2.54 L (4.30-5.90) m/uL Hgb 8.8 L (13.0-17.5) gm/dL Hct 26.3 L (39.0-53.0) % MCV 103.8 H (80.0-100.0) fL Lymphocytes # 0.7 L (1.0-4.8) k/uL Sodium 134 L (137-145) mmol/L BUN 33 H (9-20) mg/dL Creatinine 1.89 H (0.66-1.25) mg/dL Glucose 100 H (74-99) mg/dL POC Glucose (mg/dL) 112 H (70-110) mg/dL Calcium 7.8 L (8.4-10.2) mg/dL Assessment and Plan (1) New onset of congestive heart failure Current Visit: Yes Status: Acute Priority: High Code(s): I50.9 - HEART FAILURE, UNSPECIFIED SNOMED Code(s): 41056015 (2) Thrombosis of left internal jugular vein Current Visit: Yes Status: Acute Priority: High Code(s): I82.C12 - ACUTE EMBOLISM AND THROMBOSIS OF LEFT INTERNAL JUGULAR VEIN SNOMED Code(s): 777705883 (3) Metastatic urothelial carcinoma Current Visit: Yes Status: Acute Priority: High Code(s): C79.10 - SECONDARY MALIGNANT NEOPLASM OF UNSPECIFIED URINARY ORGANS SNOMED Code(s): 50440537 Plan: Metastatic urothelial carcinoma: -Full history as stated in HPI -Completed treatment with concurrent chemo/RT in 06/2020. Was following up for observation in clinic through 11/2021 with no evidence of recurrence. Stopped f/u with urology in February 2022 due to insurance reasons, and has not had f/u since -Progressing left neck mass. Biopsy of the lt neck mass revealed metastatic non- small cell carcinoma consistent with metastatic high-grade urothelial carcinoma. Results were discussed with patient and spouse -Will reschedule PET CT. Clinic f/u in discharge plan N/V: -Reglan added for additional anti-emetic support -Abdominal x-ray revealed overall nonobstructive bowel gas pattern. Patient was experiencing coffee ground emesis, GI following, with plan for EGD today. Anticoagulation has been held DVT: -Doppler of left upper extremity was positive for nonocclusive deep vein thrombosis within the internal jugular vein and superficial thrombus within the left cephalic vein. Dopplers of bilateral lower extremities were negative for DVT. -Upon review of records patient was started on heparin and transitioned to Eliquis during last admission due to new onset A-fib with RVR, and has continued on Eliquis since discharge. LUE edema has been persisting since last admission with no changes in arm swelling, however, there were no dopplers obtained at that time. Patient has continued on Eliquis since discharge. -At this time patient can continue on Eliquis, as it is likely thrombus was already present when started on anticoagulation. If additional thrombus presents while anticoagulated with Eliquis will have to switch anticoagulant CHF: -Continues on lasix -IM and cardiology following Dr. schofieldests: I have performed H&P and developed impression and plan of care for patient, discussed with dictator. I agree with dictated note, documented as a scribe
--- NOTE | 2023-08-24 15:42 | P.PN ---
Subjective Progress Note Date: 08/24/23 This is a pleasant 73-year-old male who has been followed by Dr. Vergara, admitted for peripheral edema and shortness of breath. Patient was treated for vascular congestion/CHF and treated with IV lasix. 2 days ago he had episode of coffee ground emesis and GI is following with plans to perform EGD. Currently no further episodes of bloody or dark emesis and no reports of bloody stool. Labs today show stable hemoglobin of 8.8, sodium of 134, albumin of 33, creatinine of 1.89. Lasix is being held at this time. Metformin has also been held. Review of Systems Constitutional: Denied any fatigue denied any fever. Cardio vascular: denied any chest pain, palpitations Gastrointestinal: denied any nausea, vomiting, diarrhea Pulmonary: Denied any shortness of breath cough Neurologic denied any new focal deficits All inpatient medications were reviewed and appropriate changes in these medications as dictated in the interval history and assessment and plan. PHYSICAL EXAMINATION: GENERAL: The patient is alert and oriented x3, not in any acute distress. Well developed, well nourished. HEENT: Pupils are round and equally reacting to light. EOMI. No scleral icterus. No conjunctival pallor. Normocephalic, atraumatic. No pharyngeal erythema. No thyromegaly. CARDIOVASCULAR: S1 and S2 present. No murmurs, rubs, or gallops. PULMONARY: Chest is clear to auscultation, no wheezing or crackles. ABDOMEN: Soft, nontender, nondistended, normoactive bowel sounds. No palpable organomegaly. MUSCULOSKELETAL: No joint swelling or deformity. EXTREMITIES: No cyanosis, clubbing, or pedal edema. NEUROLOGICAL: Gross neurological examination did not reveal any focal deficits. Diffuse weakness. SKIN: No rashes. Pale, 1+ lower extremity pitting edema. Left upper extremity mild edema. Assessment -Acute congestive heart exacerbation from diastolic dysfunction 50-55%., lasix being held currently -Recurrent coffee-ground emesis, eliquis and aspirin being held pending EGD -Acute kidney injury prerenal due to poor oral intake and diuresis. -Acute COPD exacerbation, improved -Paroxysmal atrial fibrillation - sinus rhythm -Essential hypertension -Mild hydronephrosis followed by urology. -Metastatic urothelial carcinoma; Completed treatment with concurrent chemo/RT in 06/2020. Was following up for observation in clinic through 11/2021 with no evidence of recurrence. Stopped f/u with urology in February 2022 due to insurance reasons, and has not had f/u since -Progressing left neck mass. Metastatic non-small cell carcinoma consistent with metastatic high-grade urothelial carcinoma, Needs PET outpatient and clinic f/u with Dr. Banda -Hyperkalemia from underlying CKD: Improved -Non occlusive DVT in the left internal jugular vein. Superficial thrombosis within the left cephalic vein. -metabolic acidosis from renal failure, improved -Hypocalcemia -CAD with stent 2018 -Hyperlipidemia -Diabetes mellitus type 2 on oral hypoglycemic; metformin being held. DVT prophylaxis anticoagulation currently on hold due episode of coffee ground emesis GI prophylaxis -Full code. Plan Pending EGD Recommending to hold metformin due to the EDITH continue on novolog and sliding scale. Lasix being held and patient will be gently hydrated Eliquis and aspirin being held Continue with compression sleeve to the left arm. PT/OT following. Repeat labs in AM. The impression and plan of care has been dictated by Sandy Coreas, Nurse Practitioner as directed. Dr. Stefani MD I have performed a history and physical examination and medical decision making of this patient, discussed the same with the dictator, and agree with the dictators assessment and plan as written, documented as a scribe. Based on total visit time, I have performed more than 50% of this visit. Objective - Vital Signs Vital signs: Vital Signs Temp 98.2 F 08/24/23 13:05 Pulse 80 08/24/23 15:24 Resp 16 08/24/23 13:05 BP 128/64 08/24/23 13:05 Pulse Ox 96 08/24/23 13:05 FiO2 Intake & Output 08/23/23 08/24/23 08/24/23 18:59 06:59 18:59 Intake Total 540 120 Output Total 200 100 Balance -200 440 120 Weight 89.2 kg 90 kg Intake: Oral 540 120 Output: Urine 200 100 Other: Voiding Method Toilet Toilet Toilet Urinal Urinal Urinal # Bowel Movements 1 - Labs CBC & Chem 7: 08/24/23 08:03 08/24/23 08:03 Labs: Abnormal Lab Results - Last 24 Hours (Table) 08/23/23 08/23/23 08/24/23 Range/Units 16:26 19:14 06:06 RBC (4.30-5.90) m/uL Hgb (13.0-17.5) gm/dL Hct (39.0-53.0) % MCV (80.0-100.0) fL Lymphocytes # (1.0-4.8) k/uL Sodium (137-145) mmol/L BUN (9-20) mg/dL Creatinine (0.66-1.25) mg/dL Glucose (74-99) mg/dL POC Glucose (mg/dL) 204 H 190 H 132 H (70-110) mg/dL Calcium (8.4-10.2) mg/dL 08/24/23 08/24/23 08/24/23 Range/Units 08:03 08:03 11:30 RBC 2.54 L (4.30-5.90) m/uL Hgb 8.8 L (13.0-17.5) gm/dL Hct 26.3 L (39.0-53.0) % MCV 103.8 H (80.0-100.0) fL Lymphocytes # 0.7 L (1.0-4.8) k/uL Sodium 134 L (137-145) mmol/L BUN 33 H (9-20) mg/dL Creatinine 1.89 H (0.66-1.25) mg/dL Glucose 100 H (74-99) mg/dL POC Glucose (mg/dL) 112 H (70-110) mg/dL Calcium 7.8 L (8.4-10.2) mg/dL Assessment and Plan Time with Patient: Less than 30
[2023-08-24 16:46] LABS: Glucose,Whole Blood 128 mg/dL (70-110)
[2023-08-24] MEDS ORDERED: LIDOCAINE 2% (PF) 20 MG/ML 5 ML VIAL ONE (17:09)
[2023-08-24] MEDS ORDERED: PROPOFOL 10 MG/ML 20 ML VIAL IV ONE (17:09)
[2023-08-24] MEDS ORDERED: IV FLUID CONTINUATION 1,000 ML IV ONE ×4 (17:11)
--- NOTE | 2023-08-24 17:22 | P.PCN ---
Date of Procedure: 08/24/23 Procedure(s) Performed: BRIEF HISTORY: Patient is a 73-year-old, pleasant, white male scheduled for an upper endoscopy as a part of evaluation of 2 episodes of coffee-ground emesis. Patient was diagnosed with left upper arm DVT and presently on eliquis which has been on hold for 2 days... PROCEDURE PERFORMED: Esophagogastroduodenoscopy with biopsy. PREOPERATIVE DIAGNOSIS: Coffee-ground EMESIS. IV sedation per anesthesia. PROCEDURE: After informed consent was obtained, the patient was brought into the endoscopy unit. IV sedation was administered by Anesthesia under continuous monitoring. Initially the Olympus GIF-140 video endoscope was inserted into the mouth. Esophagus intubated without any difficulty. It was gradually advanced into the stomach and duodenum and carefully examined. The bulb and the second part of the duodenum appeared normal. The scope at this time was withdrawn to the stomach, adequately insufflated with air, and upon careful examination, mucosa of the antrum, body, cardia and the fundus appeared normal. The scope was then withdrawn into the esophagus. Small hiatal hernia noted. The GE junction was located at 39 cm from the incisors. 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 Proximal to the Otoole's esophagus with with linear erosions consistent with LA grade B reflux esophagitis. The rest of the esophagus appeared normal and the patient tolerated the procedure well. IMPRESSION: 1. Linear erosions in the distal esophagus consistent with LA grade B reflux esophagitis. 2. 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 3. Small hiatal hernia 4. No evidence of active upper GI bleed RECOMMENDATIONS: The findings of this examination were discussed with the patient as well as his family. He will continue on Protonix 40 mg twice daily and follow antrum reflux measures. Diet will be advanced as tolerated.. Resume eliquis tomorrow morning.
[2023-08-24 20:27] LABS: Glucose,Whole Blood 130 mg/dL (70-110)
[2023-08-24] MEDS: SODIUM CHLORIDE 0.9% 1,000 ML IV SCH (21:03)
[2023-08-25 06:00] LABS: Glucose,Whole Blood 129 mg/dL (70-110)
[2023-08-25] MEDS: INSULIN ASPART (NovoLOG) 100 UNIT/ML VIAL SQ SCH ×4 (06:06→20:02)
[2023-08-25] MEDS: PANTOPRAZOLE 40 MG TABLET PO SCH ×2 (06:29→17:14)
[2023-08-25] MEDS: LEVOTHYROXINE 25 MCG TAB PO SCH (06:29)
[2023-08-25] MEDS: BUDESONIDE 1 MG/2 ML NEBU INHALATION SCH ×2 (07:43→21:08)
[2023-08-25] MEDS: IPRATROPIUM-ALBUTEROL 3 ML NEB INHALATION SCH ×4 (07:43→21:08)
[2023-08-25] MEDS: METOPROLOL TARTRATE 50 MG TAB PO SCH ×2 (09:08→20:01)
[2023-08-25] MEDS: CALCIUM CARB-VIT D 500 MG-5 MCG TAB PO SCH (09:08)
[2023-08-25] MEDS: ATORVASTATIN 80 MG TAB PO SCH (09:08)
[2023-08-25] MEDS: amLODIPine 10 MG TAB PO SCH (09:08)
[2023-08-25] MEDS: MAGNESIUM OXIDE 400 MG TAB PO SCH (09:08)
[2023-08-25] MEDS: SODIUM BICARBONATE TAB 650 MG TAB PO SCH ×2 (09:08→20:02)
[2023-08-25] MEDS: hydrALAZINE HCL 25 MG TAB PO SCH ×4 (09:08→20:00)
[2023-08-25] MEDS: NON FORMULARY DRUG (Liraglutide [Victoza 3-Pak] 0.6 MG/0.1 ML Ml) SQ SCH (09:09)
[2023-08-25 09:36] LABS: Basophils % (A) 0 %; Eosinophils # (A) 0.3 k/uL (0-0.7); Eosinophils % (A) 3 %; HCT 29.4 % (39.0-53.0); HGB 9.3 gm/dL (13.0-17.5); Hypochromasia Slight; Lymphocytes # (A) 0.5 k/uL (1.0-4.8); Lymphocytes % (A) 7 %; MCH 33.8 pg (25.0-35.0); MCHC 31.7 g/dL (31.0-37.0); MCV 106.9 fL (80.0-100.0); Macrocytosis Moderate; Mean Platelet Volume 10.8; Monocytes # (A) 0.7 k/uL (0-1.0); Monocytes % (A) 9 %; Neutrophils # (A) 5.9 k/uL (1.3-7.7); Neutrophils % (A) 79 %; Platelet Count 267 k/uL (150-450); RBC 2.75 m/uL (4.30-5.90); RDW 13.1 % (11.5-15.5); WBC 7.4 k/uL (3.8-10.6)
[2023-08-25 10:23] LABS: African American GFR (CKD) 38 (>60 ml/min/1.73 sqM); Anion Gap 9 mmol/L; Blood Urea Nitrogen 33 mg/dL (9-20); Calcium 7.6 mg/dL (8.4-10.2); Carbon Dioxide 24 mmol/L (22-30); Chloride 101 mmol/L (98-107); Glucose 166 mg/dL (74-99); Magnesium 1.7 mg/dL (1.6-2.3); Non-African American GFR(CKD) 33 (>60 ml/min/1.73 sqM); Potassium 4.3 mmol/L (3.5-5.1); Sodium 134 mmol/L (137-145)
[2023-08-25 11:20] LABS: Glucose,Whole Blood 150 mg/dL (70-110)
[2023-08-25] MEDS: SODIUM CHLORIDE 0.9% 1,000 ML IV SCH (12:23)
--- NOTE | 2023-08-25 12:42 | P.PN ---
Subjective Progress Note Date: 08/25/23 Principal diagnosis: Left upper extremity DVT, and metastatic urothelial carcinoma This is a 73-year-old white male, familiar to my service, I saw this patient and his last admission to the hospital a few weeks ago, and the patient was discharged on 08/10. Patient is known to have history of bladder cancer, he had previous chemo and radiation treatment he also had history of paroxysmal atrial fibrillation, and he was discovered to have on the last admission a left neck mass, I recommended ENT evaluation, patient underwent needle biopsy of the mass, and came back non-small cell carcinoma consistent with urothelial carcinoma. Patient was last admitted a few weeks ago with atrial fibrillation and RVR, and he was discharged home on eliquis and his Coreg was changed to metoprolol. On the last admission he had acute kidney injury with hydronephrosis on the right side, and he also had swelling of the left upper extremity now he is developing swelling of the lower extremities as well as dyspnea on exertion. His chest x- ray showed no evidence of congestive heart failure, patient does have significant fluid retention, and I was asked to see him on consultation. On admission the patient received Lasix and his chest x-ray showed cardiomegaly but no evidence of congestive heart failure and no evidence of pleural effusions. Patient had a venous Doppler on this admission and he was found to have superficial thrombosis noted in the left cephalic vein. And there was nonocclusive deep vein thromboses within the internal jugular vein. No CT angiogram of the chest was done although the patient does have a very likely possibility of pulmonary embolism considering his venous thromboses as noted above. Nonetheless the patient is on anticoagulation therapy. Patient is maintained on eliquis 5 mg by mouth twice a day since his last admission. Labs today showed W CR 9.5 hemoglobin 9.6 electrolytes are normal BUN is 34 creatinine 1.50 Patient was reevaluated today on 08/21/23, patient is feeling better today, hardly any significant pulmonary symptoms, patient has been on diuretics for his mostly findings of right sided congestive heart failure. Chest x-ray yesterday showed cardiomegaly but no evidence of congestive heart failure, no infiltrate, and no pleural effusions. Patient remains on anticoagulation therapy , for his DVT and for his paroxysmal atrial fibrillation. Labs today were reviewed he had a relatively normal basic metabolic profile creatinine is 1.37 better today compared to the last 2 days, I am still reluctant to consider a CT angiogram of the chest on this patient considering his renal profile Patient was reevaluated today on 08/22/23, pulmonary-santiago the patient is feeling fine, however early this morning the patient has been having intermittent episodes of nausea and vomiting. Some vague abdominal discomfort, on physical e xamination his abdomen benign, hence I doubt any surgical acute abdomen, patient apparently had some symptoms of gastritis with nausea and vomiting. No diarrhea, no fever, no chills, no hemoptysis, he had minimal intermittent episodes of cough. Basic metabolic profile is normal creatinine is down to 1.37, improving Reevaluated today on 08/23/23 patient is basically about the same, he had 1 episo de of vomiting yesterday, but none today. Continues to have some intermittent episodes of cough and some wheezing, no fever no chills no hemoptysis, follow-up chest x-ray showed no evidence of active disease WBC count is 8.8 hemoglobin 8.9 basic metabolic profile is normal creatinine 1.67, creatinine has been ranging between 1.31 and 1.67 since admission. Reevaluated today on 08/24/23, patient is doing well from the pulmonary perspective however he seems to have a more GI symptoms and intermittent episodes of nausea and vomiting but no abdominal pain. He is scheduled to have EGD today. Hence his anticoagulation therapy is presently on hold. WBC count is 7.1 hemoglobin 8.8 electrolytes are normal renal profile showed a creatinine of 1.89, slightly worse, the patient may benefit from gentle hydration since the patient is experiencing episodes of nausea and vomiting and hardly any oral intake Patient was reevaluated today on 08/25/23, seems to be doing much better today compared to the last couple of days. No further episodes of nausea vomiting, he does have intermittent episodes of cough and wheezing but overall improved compared to his baseline. Patient is afebrile, his blood pressure is normal O2 saturations 92% to 94% on 2 L labs are unremarkable including a relatively no rmal CBC hemoglobin is 9.3 Electrolytesenc normal creatinine is 1.98 slightly worse compared to baseline on admission 1.31 and EGD yesterday showed linear erosions in the distal esophagus consistent with grade to be reflux esophagitis. And he was also noted to have Otoole esophagus as well as a small hiatal hernia. Objective - Vital Signs Vital signs: Vital Signs Temp 98 F 08/25/23 08:10 Pulse 76 08/25/23 08:10 Resp 16 08/25/23 08:10 BP 127/52 08/25/23 08:10 Pulse Ox 92 L 08/25/23 08:10 FiO2 Intake & Output 08/24/23 08/25/23 08/25/23 18:59 06:59 18:59 Intake Total 220 118 Output Total 350 300 200 Balance -130 -300 -82 Weight 89.63 kg Intake: IV 100 Oral 120 118 Output: Urine 350 300 200 Other: Voiding Method Toilet Toilet Urinal Urinal # Voids 1 1 - Exam Physical Exam: Revealed a 73-year-old white male in no distress, on room air with O2 saturation 92-92% HEENT:[Neck is supple.] [No neck masses.] [No thyromegaly.] [No JVD.] Chest: [Clear bilaterally today, nor rhonchi no wheezes Cardiac Exam: [Normal S1 and S2, no S3 gallop, 2/6 systolic murmur thought the precordium Abdomen: [Soft, nontender, no megaly, no rebound, no guarding, normal bowel sounds.] Extremities: 1+ bilateral lower extremities edema and left upper extremity edema is noted. Neurological Exam: [No focal neurologic deficit.] Alert oriented 3 Psychiatric: Normal mood, affect and normal mental status examination Skin: No rashes - Labs CBC & Chem 7: 08/25/23 08:17 08/25/23 08:17 Labs: Abnormal Lab Results - Last 24 Hours (Table) 08/24/23 08/24/23 08/25/23 Range/Units 16:45 20:26 05:58 RBC (4.30-5.90) m/uL Hgb (13.0-17.5) gm/dL Hct (39.0-53.0) % MCV (80.0-100.0) fL Lymphocytes # (1.0-4.8) k/uL Sodium (137-145) mmol/L BUN (9-20) mg/dL Creatinine (0.66-1.25) mg/dL Glucose (74-99) mg/dL POC Glucose (mg/dL) 128 H 130 H 129 H (70-110) mg/dL Calcium (8.4-10.2) mg/dL 08/25/23 08/25/23 08/25/23 Range/Units 08:17 08:17 11:19 RBC 2.75 L (4.30-5.90) m/uL Hgb 9.3 L (13.0-17.5) gm/dL Hct 29.4 L (39.0-53.0) % MCV 106.9 H (80.0-100.0) fL Lymphocytes # 0.5 L (1.0-4.8) k/uL Sodium 134 L (137-145) mmol/L BUN 33 H (9-20) mg/dL Creatinine 1.98 H (0.66-1.25) mg/dL Glucose 166 H (74-99) mg/dL POC Glucose (mg/dL) 150 H (70-110) mg/dL Calcium 7.6 L (8.4-10.2) mg/dL Assessment and Plan Assessment: Impression: Shortness of breath, related to his paroxysmal atrial fibrillation could also be related to thromboembolic disease/pulmonary embolism, could also be related to his moderate mitral regurgitation, also suspect some component of COPD Left upper extremity deep vein thrombosis Metastatic urothelial carcinoma to the neck Hypothyroidism Coronary artery disease and previous stenting Valvular heart disease/moderate mitral regurgitation Type 2 diabetes poorly controlled Dyslipidemia Benign essential hypertension History of bladder cancer and previous chemo and radiation treatment Erosive esophagitis and Otoole esophagus. Recommendation: Continue present supportive care measures Hold diuretics for now Cautious hydration continue bronchodilators. Continue to monitor renal profile, steadily rising creatinine is noted Possible discharge planning early next week. We will continue to follow Time with Patient: Less than 30
[2023-08-25] MEDS: guaiFENesin SYRUP 100MG/5ML 200 MG/10 ML CUP PO PRN (13:13)
--- NOTE | 2023-08-25 15:11 | P.PN ---
Subjective Progress Note Date: 08/25/23 This is a pleasant 73-year-old male who has been followed by Dr. Vergara, admitted for peripheral edema and shortness of breath. Patient was treated for vascular congestion/CHF and treated with IV lasix. 2 days ago he had episode of coffee ground emesis and GI is following with plans to perform EGD. Currently no further episodes of bloody or dark emesis and no reports of bloody stool. Labs today show stable hemoglobin of 8.8, sodium of 134, albumin of 33, creatinine of 1.89. Lasix is being held at this time. Metformin has also been held. 08/25/2023 Patient evaluated today resting in bed. He states he feels improve as compared to yesterday. Underwent EGD which reveals Otoole's esophagus and esophagitis. Patient on protonix BID. Hemoglobin stable 9.3 today. No active bleeding noted. Cleared by GI to resume eliquis today. Renal function worsening with IV fluids currently up to 1.98. Noted that lasix was being held and patient was being hydrated. Review of Systems Constitutional: Denied any fatigue denied any fever. Cardio vascular: denied any chest pain, palpitations Gastrointestinal: denied any nausea, vomiting, diarrhea Pulmonary: Denied any shortness of breath cough Neurologic denied any new focal deficits All inpatient medications were reviewed and appropriate changes in these medications as dictated in the interval history and assessment and plan. PHYSICAL EXAMINATION: GENERAL: The patient is alert and oriented x3, not in any acute distress. Well developed, well nourished. HEENT: Pupils are round and equally reacting to light. EOMI. No scleral icterus. No conjunctival pallor. Normocephalic, atraumatic. No pharyngeal erythema. No thyromegaly. CARDIOVASCULAR: S1 and S2 present. No murmurs, rubs, or gallops. PULMONARY: Chest is clear to auscultation, no wheezing or crackles. ABDOMEN: Soft, nontender, nondistended, normoactive bowel sounds. No palpable organomegaly. MUSCULOSKELETAL: No joint swelling or deformity. EXTREMITIES: No cyanosis, clubbing, or pedal edema. NEUROLOGICAL: Gross neurological examination did not reveal any focal deficits. Diffuse weakness. SKIN: No rashes. Pale, 1+ lower extremity pitting edema. Left upper extremity mild edema. Assessment -Acute congestive heart exacerbation from diastolic dysfunction 50-55%., lasix being held currently -Recurrent coffee-ground emesis no further episodes EGD reveals esophagitis and Otoole's esophagus -Acute kidney injury prerenal due to poor oral intake and diuresis. -Acute COPD exacerbation, improved -Paroxysmal atrial fibrillation - sinus rhythm -Essential hypertension -Mild hydronephrosis followed by urology. -Metastatic urothelial carcinoma; Completed treatment with concurrent chemo/RT in 06/2020. Was following up for observation in clinic through 11/2021 with no evidence of recurrence. Stopped f/u with urology in February 2022 due to insurance reasons, and has not had f/u since -Progressing left neck mass. Metastatic non-small cell carcinoma consistent with metastatic high-grade urothelial carcinoma, Needs PET outpatient and clinic f/u with Dr. Banda -Hyperkalemia from underlying CKD: Improved -Non occlusive DVT in the left internal jugular vein. Superficial thrombosis wi thin the left cephalic vein. -metabolic acidosis from renal failure, improved -Hypocalcemia -CAD with stent 2018 -Hyperlipidemia -Diabetes mellitus type 2 on oral hypoglycemic; metformin being held. DVT prophylaxis anticoagulation resumed today. GI prophylaxis -Full code. Plan Recommending to hold metformin due to the EDITH continue on novolog and sliding scale. Lasix being held and patient will be gently hydrated Eliquis resumed. Continue with compression sleeve to the left arm. Check bladder scan and renal ultrasound and patient may need nephrology consultation if kidney function continues to worsen. PT/OT following. Repeat labs in AM. The impression and plan of care has been dictated by Sandy Coreas, Nurse Practitioner as directed. Dr. Stefani MD I have performed a history and physical examination and medical decision making of this patient, discussed the same with the dictator, and agree with the dictators assessment and plan as written, documented as a scribe. Based on total visit time, I have performed more than 50% of this visit. Objective - Vital Signs Vital signs: Vital Signs Temp 98 F 08/25/23 12:20 Pulse 67 08/25/23 12:20 Resp 16 08/25/23 12:20 BP 129/55 08/25/23 12:20 Pulse Ox 93 L 08/25/23 12:20 FiO2 Intake & Output 08/24/23 08/25/23 08/25/23 18:59 06:59 18:59 Intake Total 220 236 Output Total 350 300 200 Balance -130 -300 36 Weight 89.63 kg Intake: IV 100 Oral 120 236 Output: Urine 350 300 200 Other: Voiding Method Toilet Toilet Urinal Urinal # Voids 1 1 - Labs CBC & Chem 7: 08/25/23 08:17 08/25/23 08:17 Labs: Abnormal Lab Results - Last 24 Hours (Table) 08/24/23 08/24/23 08/25/23 Range/Units 16:45 20:26 05:58 RBC (4.30-5.90) m/uL Hgb (13.0-17.5) gm/dL Hct (39.0-53.0) % MCV (80.0-100.0) fL Lymphocytes # (1.0-4.8) k/uL Sodium (137-145) mmol/L BUN (9-20) mg/dL Creatinine (0.66-1.25) mg/dL Glucose (74-99) mg/dL POC Glucose (mg/dL) 128 H 130 H 129 H (70-110) mg/dL Calcium (8.4-10.2) mg/dL 08/25/23 08/25/23 08/25/23 Range/Units 08:17 08:17 11:19 RBC 2.75 L (4.30-5.90) m/uL Hgb 9.3 L (13.0-17.5) gm/dL Hct 29.4 L (39.0-53.0) % MCV 106.9 H (80.0-100.0) fL Lymphocytes # 0.5 L (1.0-4.8) k/uL Sodium 134 L (137-145) mmol/L BUN 33 H (9-20) mg/dL Creatinine 1.98 H (0.66-1.25) mg/dL Glucose 166 H (74-99) mg/dL POC Glucose (mg/dL) 150 H (70-110) mg/dL Calcium 7.6 L (8.4-10.2) mg/dL Assessment and Plan Time with Patient: Less than 30
[2023-08-25 16:39] LABS: Glucose,Whole Blood 217 mg/dL (70-110)
--- NOTE | 2023-08-25 17:39 | US ---
EXAMINATION TYPE: US kidneys/renal and bladder DATE OF EXAM: 08/25/2023 COMPARISON: NONE CLINICAL INDICATION: Male, 73 years old with history of EDITH; EDITH EXAM MEASUREMENTS: Right Kidney: 11.6 x 5.5 x 5.4 cm Left Kidney: 10.2 x 4.8 x 4.3 cm Right Kidney: mild hydronephrosis Left Kidney: lower pole obscured by overlying bowel gas Bladder: appears wnl as visualized Bilateral Jets seen: no There is mild thinning of the renal cortices consistent with mild medical renal disease. There are no solid renal masses. There are no renal calcifications. There is moderate right hydronephrosis. IMPRESSION: 1. Moderate right hydronephrosis. 2. No solid renal masses or renal calcifications. 3. Mild medical renal disease
[2023-08-25 19:32] LABS: Glucose,Whole Blood 241 mg/dL (70-110)
[2023-08-25] MEDS: APIXABAN 5 MG TAB PO SCH (20:01)
[2023-08-26 05:47] LABS: Glucose,Whole Blood 129 mg/dL (70-110)
[2023-08-26] MEDS: INSULIN ASPART (NovoLOG) 100 UNIT/ML VIAL SQ SCH ×4 (05:50→20:56)
[2023-08-26] MEDS: LEVOTHYROXINE 25 MCG TAB PO SCH (06:16)
[2023-08-26] MEDS: PANTOPRAZOLE 40 MG TABLET PO SCH ×2 (06:16→17:07)
[2023-08-26] MEDS: BUDESONIDE 1 MG/2 ML NEBU INHALATION SCH ×2 (08:10→20:16)
[2023-08-26] MEDS: IPRATROPIUM-ALBUTEROL 3 ML NEB INHALATION SCH ×4 (08:10→20:16)
[2023-08-26] MEDS: NON FORMULARY DRUG (Liraglutide [Victoza 3-Pak] 0.6 MG/0.1 ML Ml) SQ SCH (08:53)
[2023-08-26] MEDS ORDERED: FUROSEMIDE 40 MG TAB PO SCH (09:00)
[2023-08-26] MEDS: CALCIUM CARB-VIT D 500 MG-5 MCG TAB PO SCH (09:09)
[2023-08-26] MEDS: hydrALAZINE HCL 25 MG TAB PO SCH ×4 (09:09→20:35)
[2023-08-26] MEDS: ATORVASTATIN 80 MG TAB PO SCH (09:09)
[2023-08-26] MEDS: MAGNESIUM OXIDE 400 MG TAB PO SCH (09:09)
[2023-08-26] MEDS: SODIUM BICARBONATE TAB 650 MG TAB PO SCH ×2 (09:09→20:34)
[2023-08-26] MEDS: amLODIPine 10 MG TAB PO SCH (09:09)
[2023-08-26] MEDS: APIXABAN 5 MG TAB PO SCH ×2 (09:09→20:35)
[2023-08-26] MEDS: METOPROLOL TARTRATE 50 MG TAB PO SCH ×2 (09:09→20:34)
[2023-08-26 10:01] LABS: Basophils % (A) 0 %; Eosinophils # (A) 0.2 k/uL (0-0.7); Eosinophils % (A) 3 %; HCT 28.3 % (39.0-53.0); HGB 9.4 gm/dL (13.0-17.5); Lymphocytes # (A) 0.7 k/uL (1.0-4.8); Lymphocytes % (A) 10 %; MCH 34.5 pg (25.0-35.0); MCHC 33.2 g/dL (31.0-37.0); MCV 103.9 fL (80.0-100.0); Macrocytosis Slight; Mean Platelet Volume 10.3; Monocytes # (A) 0.6 k/uL (0-1.0); Monocytes % (A) 9 %; Neutrophils # (A) 5.3 k/uL (1.3-7.7); Neutrophils % (A) 77 %; Platelet Count 257 k/uL (150-450); RBC 2.72 m/uL (4.30-5.90); RDW 13.3 % (11.5-15.5); WBC 6.9 k/uL (3.8-10.6)
[2023-08-26 10:14] LABS: African American GFR (CKD) 41 (>60 ml/min/1.73 sqM); Anion Gap 10 mmol/L; Blood Urea Nitrogen 27 mg/dL (9-20); Calcium 7.7 mg/dL (8.4-10.2); Carbon Dioxide 25 mmol/L (22-30); Chloride 101 mmol/L (98-107); Glucose 110 mg/dL (74-99); Magnesium 1.8 mg/dL (1.6-2.3); Non-African American GFR(CKD) 35 (>60 ml/min/1.73 sqM); Potassium 3.8 mmol/L (3.5-5.1); Sodium 136 mmol/L (137-145)
[2023-08-26] MEDS ORDERED: Magnesium Replacement Protocol 1 EACH MISC MISCELLANE PRN (11:04)
--- NOTE | 2023-08-26 11:10 | P.NPCON ---
History of Present Illness - Reason for Consult acute renal failure - History of Present Illness Reason for consultation: Acute kidney injury History of present illness: Patient is a 72-year-old male seen in renal consultation for acute kidney injury. Patient was admitted at this facility in July 2023 at that time his creatinine peaked at 7.44. It improved to 1.23. On discharge. Creatinine noted to be as low as 1.13 in October 2022. He was noted to have right-sided hydronephrosis and was seen by urology last admission. Patient came to the hospital this admission due to swelling in his lower extremities. Patient has history of diabetes. He also has cardiac stents. He denies family history of renal disease. He did have vomiting prior to admission but better now. He is currently on oral Lasix 40 mg once daily. Ultrasound from this admission showed moderate right-sided hydronephrosis. Echocardiogram from last month showed preserved ejection fraction. Patient did undergo EGD due to coffee ground emesis this admission that showed esophagitis and Otoole's esophagus. No active bleeding was noted. Hemoglobin is stable at 9.4. Patient also has a history of metastatic urothelial carcinoma is being followed by oncology. He denies use of nonsteroidals. Denies family history of renal disease. Vital signs are stable. General: No distress. HEENT: Head exam is unremarkable. LUNGS: No audible wheezes. HEART: Rate and Rhythm are regular. ABDOMEN: Nontender. EXTREMITITES: 1+ edema. Scrotal edema noted. Past Medical History Past Medical History: Coronary Artery Disease (CAD), Cancer, Diabetes Mellitus, Hyperlipidemia, Hypertension, Myocardial Infarction (VA), Osteoarthritis (OA) Additional Past Medical History / Comment(s): Bladder cancer stage with treatment, in remission since 2020. IDDM type II, post polio syndrome,leg length discrepancy, bronchitis, chronic low back pain. Last Myocardial Infarction Date:: 07/23/19 History of Any Multi-Drug Resistant Organisms: None Reported Past Surgical History: Heart Catheterization With Stent, Orthopedic Surgery Additional Past Surgical History / Comment(s): Cystoscopy, TURBT x2, closure of patent urachus bladder tumor as , R leg surgery d/t polio-lengthening, cardiac stents 2018; Right hip surgery 11/03/2022 Past Anesthesia/Blood Transfusion Reactions: No Reported Reaction Date of Last Stent Placement:: 07/23/19 Past Psychological History: No Psychological Hx Reported Additional Psychological History / Comment(s): Pt resides with his spouse. He is independent. He just started ambulating with a cane or walker Smoking Status: Former smoker Past Alcohol Use History: None Reported Additional Past Alcohol Use History / Comment(s): Pt started smoking in 1968 and quit 07/21/19. Prior ETOH abuse-pt states he hasnt had alcohol in months Past Drug Use History: None Reported - Past Family History Father History Unknown: Yes Mother Additional Family Medical History / Comment(s): Mother of in a MVA when pt was 15 yrs old. Brother(s) Additional Family Medical History / Comment(s): Pt has one brother who of a bowel problem and another brother that of a ruptured aneurysm. Medications and Allergies Home Medications Medication Instructions Recorded Confirmed Type Aspirin 81 mg PO DAILY #90 chewable 07/25/19 08/17/23 Rx Atorvastatin [Lipitor] 80 mg PO DAILY 05/13/20 08/17/23 History Liraglutide [Victoza 3-Sam] 1.8 mg SQ DAILY 08/04/23 08/17/23 History metFORMIN HCL ER [Glucophage XR] 500 mg PO BID 08/04/23 08/17/23 History Apixaban [Eliquis] 5 mg PO BID #60 tab 08/10/23 08/17/23 Rx Magnesium Oxide [Mag-Ox] 400 mg PO DAILY #30 tab 08/10/23 08/17/23 Rx Metoprolol Tartrate [Lopressor] 50 mg PO BID #60 tab 08/10/23 08/17/23 Rx amLODIPine [Norvasc] 10 mg PO DAILY #30 tab 08/10/23 08/17/23 Rx hydrALAZINE HCL [Apresoline] 50 mg PO QID #120 tab 08/10/23 08/17/23 Rx Albuterol Sulfate [Albuterol 1 puff INHALATION RT-Q4H PRN 08/17/23 08/17/23 Hi story Sulfate Hfa] Calcium Carb-Vit D 500Mg-5Mcg 1 tab PO DAILY 08/17/23 08/17/23 History [Oscal 500+D 5 Mcg (200 Iu)] HYDROcodone/APAP 5-325MG [[place] 1 tab PO Q6H PRN 08/17/23 08/17/23 History 5-325] Levofloxacin [Levaquin] See Taper PO DAILY 08/17/23 08/17/23 History metroNIDAZOLE [Flagyl] 500 mg PO TID 08/17/23 08/17/23 History Allergies Allergy/AdvReac Type Severity Reaction Status Date / Time No Known Allergies Allergy Verified 08/17/23 12:11 Physical Exam Vitals: Vital Signs Temp Pulse Pulse Resp BP Pulse Ox 08/26/23 09:03 97.4 F L 82 16 151/55 93 L 08/26/23 04:00 76 18 132/54 94 L 08/26/23 01:10 EDT 18 08/26/23 00:00 72 18 136/59 94 L 08/25/23 21:27 80 08/25/23 21:09 74 08/25/23 20:00 97.8 F 81 18 127/61 93 L 08/25/23 16:00 97.9 F 88 18 145/46 96 08/25/23 15:43 86 08/25/23 15:31 78 08/25/23 12:20 98 F 67 16 129/55 93 L Intake and Output 08/25/23 08/26/23 08/26/23 23:59 06:59 14:59 Intake Total 540 Output Total 200 Balance 340 Intake: Oral 540 Output: Urine 200 Other: Voiding Method Toilet Urinal # Voids Results - Lab Results Most recent lab results Calcium 7.7 mg/dL (8.4-10.2) L 08/26/23 08:56 Phosphorus 3.2 mg/dL (2.5-4.5) 08/17/23 10:13 Magnesium 1.8 mg/dL (1.6-2.3) 08/26/23 08:56 08/26/23 08:56 08/26/23 08:56 Assessment and Plan Plan: Assessment: 1. Acute kidney injury secondary to ATN secondary to cardiorenal syndrome. Creatinine peaked at 1.9 at this admission and is 1.88 today. Right-sided hydronephrosis noted on kidney ultrasound. UA shows 1+ protein and no blood. Creatinine as low as 1.23 dated 08/10/2023. 2. Acute on chronic diastolic CHF. 3. Volume overload with scrotal edema. 4. Diabetes mellitus. 5. Benign hypertension. 6. Anemia. Rule out iron deficiency. EGD done this admission showed esophagitis and Otoole's esophagus no active bleeding. Plan: Change oral Lasix to IV Lasix 40 mg twice daily. Check bladder scan to rule out urinary retention. Consult urology for the hydronephrosis. Check iron studies. Avoid nephrotoxins. Continue to monitor renal function and urine output. Thank you for the consultation. I will continue to follow the patient with you during his hospital stay.
[2023-08-26] MEDS ORDERED: FLUTICASONE 50MCG/SPRAY NASAL 16GM EA NOSTRIL PRN (11:13)
--- NOTE | 2023-08-26 11:13 | P.PN ---
Subjective Progress Note Date: 08/26/23 This is a pleasant 73-year-old male who has been followed by Dr. Vergara, admitted for peripheral edema and shortness of breath. Patient was treated for vascular congestion/CHF and treated with IV lasix. 2 days ago he had episode of coffee ground emesis and GI is following with plans to perform EGD. Currently no further episodes of bloody or dark emesis and no reports of bloody stool. Labs today show stable hemoglobin of 8.8, sodium of 134, albumin of 33, creatinine of 1.89. Lasix is being held at this time. Metformin has also been held. 08/25/2023 Patient evaluated today resting in bed. He states he feels improve as compared to yesterday. Underwent EGD which reveals Otoole's esophagus and esophagitis. Patient on protonix BID. Hemoglobin stable 9.3 today. No active bleeding noted. Cleared by GI to resume eliquis today. Renal function worsening with IV fluids currently up to 1.98. Noted that lasix was being held and patient was being hydrated. 08/26/2023 Patient evaluated resting in bed. Has been resumed on eliquis cleared by GI. Creatinine today slightly improved 1.88, IV fluids were stopped. Renal ultrasound does show moderate right sided hydronephrosis he has had 1180 mls out in the last 24 hours. Bladder scan is showing about 180-200 mls left in bladder. Recommended to start the patient on flomax. He reports difficulty swallowing today, does have left neck mass which is quite swollen and firm. He also has white coating on tongue will be started on IV diflucan. Review of Systems Constitutional: Denied any fatigue denied any fever. Cardio vascular: denied any chest pain, palpitations Gastrointestinal: denied any nausea, vomiting, diarrhea Pulmonary: Denied any shortness of breath cough Neurologic denied any new focal deficits All inpatient medications were reviewed and appropriate changes in these medications as dictated in the interval history and assessment and plan. PHYSICAL EXAMINATION: GENERAL: The patient is alert and oriented x3, not in any acute distress. Well developed, well nourished. HEENT: Pupils are round and equally reacting to light. EOMI. No scleral icterus. No conjunctival pallor. Normocephalic, atraumatic. No pharyngeal erythema. No thyromegaly. CARDIOVASCULAR: S1 and S2 present. No murmurs, rubs, or gallops. PULMONARY: Chest is clear to auscultation, no wheezing or crackles. ABDOMEN: Soft, nontender, nondistended, normoactive bowel sounds. No palpable organomegaly. MUSCULOSKELETAL: No joint swelling or deformity. EXTREMITIES: No cyanosis, clubbing, or pedal edema. NEUROLOGICAL: Gross neurological examination did not reveal any focal deficits. Diffuse weakness. SKIN: No rashes. Pale, 1+ lower extremity pitting edema. Left upper extremity mild edema. Assessment -Acute congestive heart exacerbation from diastolic dysfunction 50-55% lasix was held due to worsening renal function. -Recurrent coffee-ground emesis no further episodes EGD reveals esophagitis and Otoole's esophagus -Acute kidney injury from cardiorenal nephrology consultation in place. -Acute COPD exacerbation, improved -Paroxysmal atrial fibrillation - sinus rhythm -Essential hypertension -Mild hydronephrosis followed by urology. -Metastatic urothelial carcinoma; Completed treatment with concurrent chemo/RT in 06/2020. Was following up for observation in clinic through 11/2021 with no evidence of recurrence. Stopped f/u with urology in February 2022 due to insurance reasons, and has not had f/u since -Progressing left neck mass. Metastatic non-small cell carcinoma consistent with metastatic high-grade urothelial carcinoma, Needs PET outpatient and clinic f/u with Dr. Banda -Hyperkalemia from underlying CKD: Improved -Non occlusive DVT in the left internal jugular vein. Superficial thrombosis within the left cephalic vein. -metabolic acidosis from renal failure, improved -Hypocalcemia -CAD with stent 2018 -Hyperlipidemia -Diabetes mellitus type 2 on oral hypoglycemic; metformin being held. DVT prophylaxis anticoagulation resumed today. GI prophylaxis -Full code. Plan Recommending to hold metformin due to the EDITH continue on novolog and sliding scale. Nephrology consultation recommending IV lasix Q12 and urology consultation for the hydronephrosis Continue bladder scan Q6h. Eliquis resumed. Continue with compression sleeve to the left arm. PT/OT following. Repeat labs in AM. The impression and plan of care has been dictated by Sandy Coreas, Nurse Practitioner as directed. Dr. Stefani MD I have performed a history and physical examination and medical decision making of this patient, discussed the same with the dictator, and agree with the dictators assessment and plan as written, documented as a scribe. Based on total visit time, I have performed more than 50% of this visit. Objective - Vital Signs Vital signs: Vital Signs Temp 97.4 F L 08/26/23 09:03 Pulse 82 08/26/23 09:03 Resp 16 08/26/23 09:03 BP 151/55 08/26/23 09:03 Pulse Ox 93 L 08/26/23 09:03 FiO2 Intake & Output 08/25/23 08/26/23 08/26/23 19:59 06:59 18:59 Intake Total 540 Output Total 200 Balance 340 Intake: Oral 540 Output: Urine 200 Other: Voiding Method Toilet Urinal # Voids - Labs CBC & Chem 7: 08/26/23 08:56 08/26/23 08:56 Labs: Abnormal Lab Results - Last 24 Hours (Table) 08/25/23 08/25/23 08/26/23 Range/Units 16:31 19:28 05:45 RBC (4.30-5.90) m/uL Hgb (13.0-17.5) gm/dL Hct (39.0-53.0) % MCV (80.0-100.0) fL Lymphocytes # (1.0-4.8) k/uL Sodium (137-145) mmol/L BUN (9-20) mg/dL Creatinine (0.66-1.25) mg/dL Glucose (74-99) mg/dL POC Glucose (mg/dL) 217 H 241 H 129 H (70-110) mg/dL Calcium (8.4-10.2) mg/dL 08/26/23 08/26/23 Range/Units 08:56 08:56 RBC 2.72 L (4.30-5.90) m/uL Hgb 9.4 L (13.0-17.5) gm/dL Hct 28.3 L (39.0-53.0) % MCV 103.9 H (80.0-100.0) fL Lymphocytes # 0.7 L (1.0-4.8) k/uL Sodium 136 L (137-145) mmol/L BUN 27 H (9-20) mg/dL Creatinine 1.88 H (0.66-1.25) mg/dL Glucose 110 H (74-99) mg/dL POC Glucose (mg/dL) (70-110) mg/dL Calcium 7.7 L (8.4-10.2) mg/dL Assessment and Plan Time with Patient: Less than 30
--- NOTE | 2023-08-26 11:42 | P.GSCN ---
History of Present Illness Consult date: 08/26/23 Reason for Consult: Right hydronephrosis History of present illness: This is a 73-year-old male admitted to the hospital with CHF exacerbation, urology is consulted for right-sided hydronephrosis. His creatinine is 1.88 from a baseline of 1.3. He does have history of muscle invasive bladder cancer that was diagnosed by Dr. Myers he underwent chemotherapy and radiation in 2020, per patient has not had any evidence of cancer recurrence but has not had any recent cystoscopies. Urology is consulted for the finding of mild right-sided hydronephrosis on ultrasound subsequently confirmed with CT on last admission. Urology was consulted on August 05 for the same finding of the hydronephrosis, at that time his creatinine was greater than 7 which improved to 1.3 at time of discharge. Denies any flank pain, but is complaining of difficulty voiding. Denies any gross hematuria or dysuria Denies any history of UTIs, urinary retention, or kidney stones. Review of Systems - Constitutional Denies fever, Denies weight loss - EENT Ears, nose, mouth and throat: Denies dysphagia - Cardiovascular Reports edema, Reports leg edema, Reports shortness of breath - Respiratory Reports dyspnea, Denies wheezing - Gastrointestinal Reports nausea, Denies abdominal pain, Denies vomiting - Genitourinary Denies flank pain, Denies hematuria - Neurological Denies headaches, Denies syncope Past Medical History Past Medical History: Coronary Artery Disease (CAD), Cancer, Diabetes Mellitus, Hyperlipidemia, Hypertension, Myocardial Infarction ([place]), Osteoarthritis (OA) Additional Past Medical History / Comment(s): Bladder cancer stage with treatment, in remission since 2020. IDDM type II, post polio syndrome,leg length discrepancy, bronchitis, chronic low back pain. 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 He is independent. He just started ambulating with a cane or walker Smoking Status: Former smoker Past Alcohol Use History: None Reported Additional Past Alcohol Use History / Comment(s): Pt started smoking in 1968 and quit 07/21/19. Prior ETOH abuse-pt states he hasnt had alcohol in months Past Drug Use History: None Reported - Past Family History Father History Unknown: Yes Mother Additional Family Medical History / Comment(s): Mother of in a MVA when pt was 15 yrs old. Brother(s) Additional Family Medical History / Comment(s): Pt has one brother who of a bowel problem and another brother that of a ruptured aneurysm. Medications and Allergies Home Medications Medication Instructions Recorded Confirmed Type Aspirin 81 mg PO DAILY #90 chewable 07/25/19 08/17/23 Rx Atorvastatin [Lipitor] 80 mg PO DAILY 05/13/20 08/17/23 History Liraglutide [Victoza 3-Sam] 1.8 mg SQ DAILY 08/04/23 08/17/23 History metFORMIN HCL ER [Glucophage XR] 500 mg PO BID 08/04/23 08/17/23 History Apixaban [Eliquis] 5 mg PO BID #60 tab 08/10/23 08/17/23 Rx Magnesium Oxide [Mag-Ox] 400 mg PO DAILY #30 tab 08/10/23 08/17/23 Rx Metoprolol Tartrate [Lopressor] 50 mg PO BID #60 tab 08/10/23 08/17/23 Rx amLODIPine [Norvasc] 10 mg PO DAILY #30 tab 08/10/23 08/17/23 Rx hydrALAZINE HCL [Apresoline] 50 mg PO QID #120 tab 08/10/23 08/17/23 Rx Albuterol Sulfate [Albuterol 1 puff INHALATION RT-Q4H PRN 08/17/23 08/17/23 History Sulfate Hfa] Calcium Carb-Vit D 500Mg-5Mcg 1 tab PO DAILY 08/17/23 08/17/23 History [Oscal 500+D 5 Mcg (200 Iu)] HYDROcodone/APAP 5-325MG [[place] 1 tab PO Q6H PRN 08/17/23 08/17/23 History 5-325] Levofloxacin [Levaquin] See Taper PO DAILY 08/17/23 08/17/23 History metroNIDAZOLE [Flagyl] 500 mg PO TID 08/17/23 08/17/23 History Allergies Allergy/AdvReac Type Severity Reaction Status Date / Time No Known Allergies Allergy Verified 08/17/23 12:11 Surgical - Exam Vital Signs Temp Pulse Resp BP Pulse Ox 98.4 F 70 20 121/50 96 08/17/23 09:34 08/17/23 09:34 08/17/23 09:34 08/17/23 09:34 08/17/23 09:34 - General no distress, no pain - Eyes normal ocular movement, no pale - ENT normal nares, normal mucosa - Respiratory normal expansion, normal respiratory effort - Abdomen Abdomen: soft, non tender, no distended - Genitourinary Penoscrotal edema - Psychiatric oriented to time, oriented to person, oriented to place Results - Labs 08/26/23 08:56 08/26/23 08:56 Abnormal Lab Results - Last 24 Hours (Table) 08/25/23 08/25/23 08/26/23 Range/Units 16:31 19:28 05:45 RBC (4.30-5.90) m/uL Hgb (13.0-17.5) gm/dL Hct (39.0-53.0) % MCV (80.0-100.0) fL Lymphocytes # (1.0-4.8) k/uL Sodium (137-145) mmol/L BUN (9-20) mg/dL Creatinine (0.66-1.25) mg/dL Glucose (74-99) mg/dL POC Glucose (mg/dL) 217 H 241 H 129 H (70-110) mg/dL Calcium (8.4-10.2) mg/dL 08/26/23 08/26/23 Range/Units 08:56 08:56 RBC 2.72 L (4.30-5.90) m/uL Hgb 9.4 L (13.0-17.5) gm/dL Hct 28.3 L (39.0-53.0) % MCV 103.9 H (80.0-100.0) fL Lymphocytes # 0.7 L (1.0-4.8) k/uL Sodium 136 L (137-145) mmol/L BUN 27 H (9-20) mg/dL Creatinine 1.88 H (0.66-1.25) mg/dL Glucose 110 H (74-99) mg/dL POC Glucose (mg/dL) (70-110) mg/dL Calcium 7.7 L (8.4-10.2) mg/dL Diabetes panel 08/26/23 Range/Units 08:56 Sodium 136 L (137-145) mmol/L Potassium 3.8 (3.5-5.1) mmol/L Chloride 101 (98-107) mmol/L Carbon Dioxide 25 (22-30) mmol/L BUN 27 H (9-20) mg/dL Creatinine 1.88 H (0.66-1.25) mg/dL Glucose 110 H (74-99) mg/dL Calcium 7.7 L (8.4-10.2) mg/dL Calcium panel 08/26/23 Range/Units 08:56 Calcium 7.7 L (8.4-10.2) mg/dL Pituitary panel 08/26/23 Range/Units 08:56 Sodium 136 L (137-145) mmol/L Potassium 3.8 (3.5-5.1) mmol/L Chloride 101 (98-107) mmol/L Carbon Dioxide 25 (22-30) mmol/L BUN 27 H (9-20) mg/dL Creatinine 1.88 H (0.66-1.25) mg/dL Glucose 110 H (74-99) mg/dL Calcium 7.7 L (8.4-10.2) mg/dL Adrenal panel 08/26/23 Range/Units 08:56 Sodium 136 L (137-145) mmol/L Potassium 3.8 (3.5-5.1) mmol/L Chloride 101 (98-107) mmol/L Carbon Dioxide 25 (22-30) mmol/L BUN 27 H (9-20) mg/dL Creatinine 1.88 H (0.66-1.25) mg/dL Glucose 110 H (74-99) mg/dL Calcium 7.7 L (8.4-10.2) mg/dL Assessment and Plan Assessment: 73-year-old male muscle invasive bladder cancer treated back to the 2020 with chemotherapy and radiation. He is a patient of Dr Myers. hx hx of Chronic right hydronephrosis. Urology is consulted for this finding. He did have a CT abdomen and pelvis on August 05 which showed evidence of hydronephrosis unknown etiology. At that time his creatinine did trend down back to baseline of 1.3. His current creatinine is 1.88, his baseline is 1.3. The hydronephrosis has been present for greater than a month and his creatinine was stable at baseline despite hydronephrosis, prior to this admission. He is complaining of difficulty voiding. -No acute surgical intervention, his acute kidney injury most likely m ultifactorial a ureteral stent is unlikely to significantly improve his kidney function -Obtain a postvoid residual, greater than 200 recommend inserting a [place] catheter, will also start Flomax
[2023-08-26 11:47] LABS: Glucose,Whole Blood 143 mg/dL (70-110)
[2023-08-26] MEDS ORDERED: MAGNESIUM SULFATE-D5W PMX 1 GM in DEXTROSE/WATER 1 100ML.BAG IVPB ONE (12:00)
[2023-08-26] MEDS: LORATADINE 10 MG TAB PO SCH (12:47)
--- NOTE | 2023-08-26 14:10 | P.PN ---
Subjective Progress Note Date: 08/26/23 Principal diagnosis: Left upper extremity DVT, and metastatic urothelial carcinoma This is a 73-year-old white male, familiar to my service, I saw this patient and his last admission to the hospital a few weeks ago, and the patient was discharged on 08/10. Patient is known to have history of bladder cancer, he had previous chemo and radiation treatment he also had history of paroxysmal atrial fibrillation, and he was discovered to have on the last admission a left neck mass, I recommended ENT evaluation, patient underwent needle biopsy of the mass, and came back non-small cell carcinoma consistent with urothelial carcinoma. Patient was last admitted a few weeks ago with atrial fibrillation and RVR, and he was discharged home on eliquis and his Coreg was changed to metoprolol. On the last admission he had acute kidney injury with hydronephrosis on the right side, and he also had swelling of the left upper extremity now he is developing swelling of the lower extremities as well as dyspnea on exertion. His chest x- ray showed no evidence of congestive heart failure, patient does have significant fluid retention, and I was asked to see him on consultation. On admission the patient received Lasix and his chest x-ray showed cardiomegaly but no evidence of congestive heart failure and no evidence of pleural effusions. Patient had a venous Doppler on this admission and he was found to have superficial thrombosis noted in the left cephalic vein. And there was nonocclusive deep vein thromboses within the internal jugular vein. No CT angiogram of the chest was done although the patient does have a very likely possibility of pulmonary embolism considering his venous thromboses as noted above. Nonetheless the patient is on anticoagulation therapy. Patient is maintained on eliquis 5 mg by mouth twice a day since his last admission. Labs today showed W CR 9.5 hemoglobin 9.6 electrolytes are normal BUN is 34 creatinine 1.50 Patient was reevaluated today on 08/21/23, patient is feeling better today, hardly any significant pulmonary symptoms, patient has been on diuretics for his mostly findings of right sided congestive heart failure. Chest x-ray yesterday showed cardiomegaly but no evidence of congestive heart failure, no infiltrate, and no pleural effusions. Patient remains on anticoagulation therapy , for his DVT and for his paroxysmal atrial fibrillation. Labs today were reviewed he had a relatively normal basic metabolic profile creatinine is 1.37 better today compared to the last 2 days, I am still reluctant to consider a CT angiogram of the chest on this patient considering his renal profile Patient was reevaluated today on 08/22/23, pulmonary-santiago the patient is feeling fine, however early this morning the patient has been having intermittent episodes of nausea and vomiting. Some vague abdominal discomfort, on physical e xamination his abdomen benign, hence I doubt any surgical acute abdomen, patient apparently had some symptoms of gastritis with nausea and vomiting. No diarrhea, no fever, no chills, no hemoptysis, he had minimal intermittent episodes of cough. Basic metabolic profile is normal creatinine is down to 1.37, improving Reevaluated today on 08/23/23 patient is basically about the same, he had 1 episo de of vomiting yesterday, but none today. Continues to have some intermittent episodes of cough and some wheezing, no fever no chills no hemoptysis, follow-up chest x-ray showed no evidence of active disease WBC count is 8.8 hemoglobin 8.9 basic metabolic profile is normal creatinine 1.67, creatinine has been ranging between 1.31 and 1.67 since admission. Reevaluated today on 08/24/23, patient is doing well from the pulmonary perspective however he seems to have a more GI symptoms and intermittent episodes of nausea and vomiting but no abdominal pain. He is scheduled to have EGD today. Hence his anticoagulation therapy is presently on hold. WBC count is 7.1 hemoglobin 8.8 electrolytes are normal renal profile showed a creatinine of 1.89, slightly worse, the patient may benefit from gentle hydration since the patient is experiencing episodes of nausea and vomiting and hardly any oral intake Patient was reevaluated today on 08/25/23, seems to be doing much better today compared to the last couple of days. No further episodes of nausea vomiting, he does have intermittent episodes of cough and wheezing but overall improved compared to his baseline. Patient is afebrile, his blood pressure is normal O2 saturations 92% to 94% on 2 L labs are unremarkable including a relatively no rmal CBC hemoglobin is 9.3 Electrolytesenc normal creatinine is 1.98 slightly worse compared to baseline on admission 1.31 and EGD yesterday showed linear erosions in the distal esophagus consistent with grade to be reflux esophagitis. And he was also noted to have Otoole esophagus as well as a small hiatal hernia. Patient was reevaluated today on 08/26/23, patient is doing better, breathing a l ot easier, he has no active pulmonary symptoms. However the patient is being seen by nephrology and by urology for hydronephrosis and worsening renal profile. Pulmonary-santiago no cough no wheezing no shortness of breath, reviewed the notes from the urologist, he is planning no intervention for his chronic hydronephrosis. CBC today is relatively normal left lites are normal renal profile showed a creatinine of 1.88, his last chest x-ray 08/23/23 showed no evidence of active disease Objective - Vital Signs Vital signs: Vital Signs Temp 97.4 F L 08/26/23 09:03 Pulse 70 08/26/23 12:41 Resp 18 08/26/23 12:41 BP 145/75 08/26/23 12:41 Pulse Ox 95 08/26/23 12:41 FiO2 Intake & Output 08/25/23 08/26/23 08/26/23 19:59 06:59 18:59 Intake Total 540 Output Total 200 Balance 340 Intake: Oral 540 Output: Urine 200 Other: Voiding Method Toilet Urinal # Voids - Exam Physical Exam: Revealed a 73-year-old white male in no distress, on room air with O2 saturation 92-92% HEENT:[Neck is supple.] [No neck masses.] [No thyromegaly.] [No JVD.] Chest: [Clear bilaterally today, nor rhonchi no wheezes Cardiac Exam: [Normal S1 and S2, no S3 gallop, 2/6 systolic murmur thought the precordium Abdomen: [Soft, nontender, no megaly, no rebound, no guarding, normal bowel sounds.] Extremities: 1+ bilateral lower extremities edema and left upper extremity edema is noted. Neurological Exam: [No focal neurologic deficit.] Alert oriented 3 Psychiatric: Normal mood, affect and normal mental status examination Skin: No rashes - Labs CBC & Chem 7: 08/26/23 08:56 08/26/23 08:56 Labs: Abnormal Lab Results - Last 24 Hours (Table) 08/25/23 08/25/23 08/26/23 Range/Units 16:31 19:28 05:45 RBC (4.30-5.90) m/uL Hgb (13.0-17.5) gm/dL Hct (39.0-53.0) % MCV (80.0-100.0) fL Lymphocytes # (1.0-4.8) k/uL Sodium (137-145) mmol/L BUN (9-20) mg/dL Creatinine (0.66-1.25) mg/dL Glucose (74-99) mg/dL POC Glucose (mg/dL) 217 H 241 H 129 H (70-110) mg/dL Calcium (8.4-10.2) mg/dL 08/26/23 08/26/23 08/26/23 Range/Units 08:56 08:56 11:45 RBC 2.72 L (4.30-5.90) m/uL Hgb 9.4 L (13.0-17.5) gm/dL Hct 28.3 L (39.0-53.0) % MCV 103.9 H (80.0-100.0) fL Lymphocytes # 0.7 L (1.0-4.8) k/uL Sodium 136 L (137-145) mmol/L BUN 27 H (9-20) mg/dL Creatinine 1.88 H (0.66-1.25) mg/dL Glucose 110 H (74-99) mg/dL POC Glucose (mg/dL) 143 H (70-110) mg/dL Calcium 7.7 L (8.4-10.2) mg/dL Assessment and Plan Assessment: Impression: Shortness of breath, related to his paroxysmal atrial fibrillation could also be related to thromboembolic disease/pulmonary embolism, could also be related to his moderate mitral regurgitation, also suspect some component of COPD Left upper extremity deep vein thrombosis Metastatic urothelial carcinoma to the neck Hypothyroidism Coronary artery disease and previous stenting Valvular heart disease/moderate mitral regurgitation Type 2 diabetes poorly controlled Dyslipidemia Benign essential hypertension History of bladder cancer and previous chemo and radiation treatment Erosive esophagitis and Otoole esophagus. Recommendation: Continue present supportive care measures Nephrology to decide on his diuretics continue bronchodilators. Although the patient has no active pulmonary symptoms today. Continue to monitor renal profile, steadily rising creatinine is noted We'll clear the patient for discharge if cleared by other consultants Will follow as the Time with Patient: Less than 30
[2023-08-26] MEDS: FLUCONAZOLE IN NACL,ISO-OSM 100 MG in SALINE 1 50ML.BAG IVPB SCH (16:15)
[2023-08-26 16:24] LABS: Glucose,Whole Blood 174 mg/dL (70-110)
[2023-08-26 20:30] LABS: Glucose,Whole Blood 244 mg/dL (70-110)
[2023-08-26] MEDS: HYDROcodone/APAP 5-325MG 1 EACH TAB PO PRN (20:34)
[2023-08-26] MEDS: FUROSEMIDE 10 MG/ML 4 ML VIAL IV SCH (20:35)
[2023-08-26 23:11] LABS: % Iron Saturation 16.58 (15.00-50.00)
[2023-08-27] MEDS: HYDROcodone/APAP 5-325MG 1 EACH TAB PO PRN ×3 (03:58→21:27)
[2023-08-27 06:34] LABS: Glucose,Whole Blood 173 mg/dL (70-110)
[2023-08-27] MEDS: PANTOPRAZOLE 40 MG TABLET PO SCH ×2 (06:35→16:53)
[2023-08-27] MEDS: INSULIN ASPART (NovoLOG) 100 UNIT/ML VIAL SQ SCH ×4 (06:35→21:26)
[2023-08-27] MEDS: LEVOTHYROXINE 25 MCG TAB PO SCH (06:35)
[2023-08-27 09:05] LABS: African American GFR (CKD) 44 (>60 ml/min/1.73 sqM); Anion Gap 8 mmol/L; Blood Urea Nitrogen 25 mg/dL (9-20); Calcium 7.3 mg/dL (8.4-10.2); Carbon Dioxide 26 mmol/L (22-30); Chloride 100 mmol/L (98-107); Glucose 146 mg/dL (74-99); Magnesium 1.9 mg/dL (1.6-2.3); Non-African American GFR(CKD) 38 (>60 ml/min/1.73 sqM); Potassium 3.9 mmol/L (3.5-5.1); Sodium 134 mmol/L (137-145)
[2023-08-27] MEDS: IPRATROPIUM-ALBUTEROL 3 ML NEB INHALATION SCH ×4 (09:27→20:46)
[2023-08-27] MEDS: BUDESONIDE 1 MG/2 ML NEBU INHALATION SCH ×2 (09:28→20:46)
[2023-08-27] MEDS: FUROSEMIDE 10 MG/ML 4 ML VIAL IV SCH ×2 (10:23→21:26)
[2023-08-27] MEDS: hydrALAZINE HCL 25 MG TAB PO SCH ×4 (10:23→21:26)
[2023-08-27] MEDS: FLUCONAZOLE IN NACL,ISO-OSM 100 MG in SALINE 1 50ML.BAG IVPB SCH (10:23)
[2023-08-27] MEDS: amLODIPine 10 MG TAB PO SCH (10:24)
[2023-08-27] MEDS: SODIUM BICARBONATE TAB 650 MG TAB PO SCH (10:24)
[2023-08-27] MEDS: MAGNESIUM OXIDE 400 MG TAB PO SCH (10:24)
[2023-08-27] MEDS: TAMSULOSIN 0.4 MG CAP.ER.24H PO SCH (10:24)
[2023-08-27] MEDS: LORATADINE 10 MG TAB PO SCH (10:24)
[2023-08-27] MEDS: METOPROLOL TARTRATE 50 MG TAB PO SCH ×2 (10:24→21:26)
[2023-08-27] MEDS: CALCIUM CARB-VIT D 500 MG-5 MCG TAB PO SCH (10:24)
[2023-08-27] MEDS: ATORVASTATIN 80 MG TAB PO SCH (10:24)
[2023-08-27] MEDS: APIXABAN 5 MG TAB PO SCH ×2 (10:24→21:26)
[2023-08-27] MEDS: NON FORMULARY DRUG (Liraglutide [Victoza 3-Pak] 0.6 MG/0.1 ML Ml) SQ SCH (10:36)
[2023-08-27 11:24] LABS: Glucose,Whole Blood 167 mg/dL (70-110)
--- NOTE | 2023-08-27 12:14 | FL ---
EXAMINATION TYPE: FL barium swallow w video DATE OF EXAM: 08/27/2023 COMPARISON: NONE HISTORY: Swelling of throat TECHNIQUE: Fluoroscopy. FINDINGS: Fluoroscopic guidance was provided for the procedure performed in conjunction with the [facility] pathology department. Please see complete report forthcoming from the Speech Pathology departmen t. Various consistencies from thin liquid to solids were administered. Fluoroscopy time 1 minute and 15 seconds. Number of images: 0. DAP: 165.56 No aspiration was identified. There was some transient penetration with thin liquids during a portion of the swallowing. No significant pooling was observed in the vallecula. There was normal propulsion of the bolus. IMPRESSION: 1. Transient penetration with thin liquids. No aspiration was evident.
--- NOTE | 2023-08-27 12:24 | P.PN ---
Subjective Patient is seen for follow-up for acute kidney injury. History of acute kidney injury in July 2023 which resolved with creatinine decreasing from 7.4-1.2 upon discharge. Patient also has a history of right hydronephrosis with history of metastatic urothelial carcinoma being followed by urology and oncology. Serum creatinine improved to 1.7 from 1.98 at peak this admission. Currently maintained on IV Lasix. 24 hour urine output at 1600 ML. No significant complaints today. Objective - Vital Signs Vital signs: Vital Signs Temp 98.1 F 08/27/23 09:30 Pulse 68 08/27/23 09:45 Resp 16 08/27/23 09:30 BP 140/55 08/27/23 09:30 Pulse Ox 95 08/27/23 09:30 FiO2 Intake & Output 08/26/23 08/27/23 08/27/23 18:59 06:59 18:59 Intake Total 900 20 10 Output Total 600 1000 400 Balance 300 -980 -390 Intake: IV 20 10 Invasive Line 2 10 Invasive Line 3 10 10 Oral 900 Output: Urine 600 1000 400 Other: Voiding Method Indwelling Catheter Indwelling Catheter Indwelling Catheter - Exam On examination patient is comfortable awake no acute distress Examination of the heart S1 and S2 Examination of the lungs bilateral breath sounds are heard Abdomen is soft nontender Lower extremities show 1+ edema bilaterally 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 - Labs CBC & Chem 7: 08/26/23 08:56 08/27/23 07:37 Labs: Abnormal Lab Results - Last 24 Hours (Table) 08/26/23 08/26/23 08/26/23 Range/Units 08:56 16:22 20:29 Sodium (137-145) mmol/L BUN (9-20) mg/dL Creatinine (0.66-1.25) mg/dL Glucose (74-99) mg/dL POC Glucose (mg/dL) 174 H 244 H (70-110) mg/dL Calcium (8.4-10.2) mg/dL Iron 32 L (65-175) UG/DL TIBC 193 L (228-460) UG/DL Transferrin 138.0 L (204.0-354.0) mg/dL 08/27/23 08/27/23 08/27/23 Range/Units 06:32 07:37 11: Sodium 134 L (137-145) mmol/L BUN 25 H (9-20) mg/dL Creatinine 1.75 H (0.66-1.25) mg/dL Glucose 146 H (74-99) mg/dL POC Glucose (mg/dL) 173 H 167 H (70-110) mg/dL Calcium 7.3 L (8.4-10.2) mg/dL Iron (65-175) UG/DL TIBC (228-460) UG/DL Transferrin (204.0-354.0) mg/dL Assessment and Plan Assessment: 1. Acute kidney injury secondary to ATN secondary to cardiorenal syndrome. Creatinine peaked at 1.9 at this admission and is 1.7 today. Right-sided hydronephrosis noted on kidney ultrasound. UA shows 1+ protein and no blood. Creatinine as low as 1.23 dated 08/10/2023. Urine retention noted and Montalvo catheter was placed. No plans for intervention from the urology standpoint given that serum creatinine had improved to 1.2 from 7.4 last admission in spite of right hydronephrosis. 2. Acute on chronic diastolic CHF. 3. Volume overload with scrotal edema. 4. Diabetes mellitus. 5. Benign hypertension. 6. Anemia. No significant iron deficiency noted. EGD done this admission showed esophagitis and Otoole's esophagus no active bleeding. Plan: Continue with IV Lasix Continue with Montalvo catheter Repeat labs in a.m. Continue to avoid nephrotoxic agents. DC sodium bicarb
[2023-08-27] MEDS ORDERED: MORPHINE SULFATE 4 MG/ML SYRINGE IVP PRN (12:35)
--- NOTE | 2023-08-27 13:39 | P.PN ---
Subjective Progress Note Date: 08/27/23 Principal diagnosis: DVT, CHF At today's visit patient is resting comfortably in bed. S/p EGD, revealing esophagitis and Otoole's esophagus, no evidence of upper GI bleed. Patient is reporting increased left-sided neck pain and pain with swallowing. He is tolerating chopped diet and fluids. Objective - Vital Signs Vital signs: Vital Signs Temp 98.1 F 08/27/23 09:30 Pulse 84 08/27/23 12:19 Resp 18 08/27/23 12:19 BP 136/63 08/27/23 12:19 Pulse Ox 96 08/27/23 12:19 FiO2 Intake & Output 08/26/23 08/27/23 08/27/23 18:59 06:59 18:59 Intake Total 900 20 10 Output Total 600 1000 400 Balance 300 -980 -390 Intake: IV 20 10 Invasive Line 2 10 Invasive Line 3 10 10 Oral 900 Output: Urine 600 1000 400 Other: Voiding Method Indwelling Catheter Indwelling Catheter Indwelling Catheter - Constitutional General appearance: Present: average body habitus, no acute distress - EENT EENT Comment(s): mild white coating of tongue, no posterior pharyngeal edema or erythema noted Eyes: Present: anicteric sclerae, EOMI ENT: Present: hearing grossly normal - Neck Details: left sided neck mass - Respiratory Details: breathing is even and unlabored - Cardiovascular Details: skin warm and dry - Integumentary Integumentary: Absent: cyanotic - Musculoskeletal Musculoskeletal: Present: generalized weakness - Psychiatric Psychiatric: Present: A&O x's 3, appropriate affect, intact judgment & insight - Labs CBC & Chem 7: 08/26/23 08:56 08/27/23 07:37 Labs: Abnormal Lab Results - Last 24 Hours (Table) 08/26/23 08/26/23 08/26/23 Range/Units 08:56 16:22 20:29 Sodium (137-145) mmol/L BUN (9-20) mg/dL Creatinine (0.66-1.25) mg/dL Glucose (74-99) mg/dL POC Glucose (mg/dL) 174 H 244 H (70-110) mg/dL Calcium (8.4-10.2) mg/dL Iron 32 L (65-175) UG/DL TIBC 193 L (228-460) UG/DL Transferrin 138.0 L (204.0-354.0) mg/dL 08/27/23 08/27/23 08/27/23 Range/Units 06:32 07:37 11:23 Sodium 134 L (137-145) mmol/L BUN 25 H (9-20) mg/dL Creatinine 1.75 H (0.66-1.25) mg/dL Glucose 146 H (74-99) mg/dL POC Glucose (mg/dL) 173 H 167 H (70-110) mg/dL Calcium 7.3 L (8.4-10.2) mg/dL Iron (65-175) UG/DL TIBC (228-460) UG/DL Transferrin (204.0-354.0) mg/dL Assessment and Plan (1) New onset of congestive heart failure Current Visit: Yes Status: Acute Priority: High Code(s): I50.9 - HEART FAILURE, UNSPECIFIED SNOMED Code(s): 79156847 (2) Thrombosis of left internal jugular vein Current Visit: Yes Status: Acute Priority: High Code(s): I82.C12 - ACUTE EMBOLISM AND THROMBOSIS OF LEFT INTERNAL JUGULAR VEIN SNOMED Code(s): 210124512 (3) Metastatic urothelial carcinoma Current Visit: Yes Status: Acute Priority: High Code(s): C79.10 - SECONDARY MALIGNANT NEOPLASM OF UNSPECIFIED URINARY ORGANS SNOMED Code(s): 02928108 Plan: Metastatic urothelial carcinoma: -Full history as stated in HPI -Completed treatment with concurrent chemo/RT in 06/2020. Was following up for observation in clinic through 11/2021 with no evidence of recurrence. Stopped f/u with urology in February 2022 due to insurance reasons, and has not had f/u since -Progressing left neck mass. Biopsy of the lt neck mass revealed metastatic non- small cell carcinoma consistent with metastatic high-grade urothelial carcinoma. -Reporting increasing left sided neck pain and odynophagia. Spoke with IM team, barium swallow study ordered. IVP morphine added, will continue to monitor pain control -Rad onc consulted for further evaluation of neck mass. Spoke with Dr. Juarez regarding case -Will reschedule PET CT. Clinic f/u in discharge plan N/V: -Reglan added for additional anti-emetic support -Abdominal x-ray revealed overall nonobstructive bowel gas pattern. Patient was experiencing coffee ground emesis, GI following, S/p EGD, revealing esophagitis and Otoole's esophagus, no evidence of upper GI bleed. Anticoagulation has been resumed DVT: -Doppler of left upper extremity was positive for nonocclusive deep vein thrombosis within the internal jugular vein and superficial thrombus within the left cephalic vein. Dopplers of bilateral lower extremities were negative for DVT. -Upon review of records patient was started on heparin and transitioned to Eliquis during last admission due to new onset A-fib with RVR, and has continued on Eliquis since discharge. LUE edema has been persisting since last admission with no changes in arm swelling, however, there were no dopplers obtained at that time. -At this time patient can continue on Eliquis, as it is likely thrombus was already present when started on anticoagulation. If additional thrombus presents while anticoagulated with Eliquis will have to switch anticoagulant CHF: -Continues on lasix -IM and cardiology following
[2023-08-27] MEDS: DOCUSATE 100 MG CAP PO SCH ×2 (13:40→21:31)
[2023-08-27 16:24] LABS: Glucose,Whole Blood 221 mg/dL (70-110)
--- NOTE | 2023-08-27 16:45 | P.PN ---
Subjective Progress Note Date: 08/27/23 This is a pleasant 73-year-old male who has been followed by Dr. Vergara, admitted for peripheral edema and shortness of breath. Patient was treated for vascular congestion/CHF and treated with IV lasix. 2 days ago he had episode of coffee ground emesis and GI is following with plans to perform EGD. Currently no further episodes of bloody or dark emesis and no reports of bloody stool. Labs today show stable hemoglobin of 8.8, sodium of 134, albumin of 33, creatinine of 1.89. Lasix is being held at this time. Metformin has also been held. 08/25/2023 Patient evaluated today resting in bed. He states he feels improve as compared to yesterday. Underwent EGD which reveals Otoole's esophagus and esophagitis. Patient on protonix BID. Hemoglobin stable 9.3 today. No active bleeding noted. Cleared by GI to resume eliquis today. Renal function worsening with IV fluids currently up to 1.98. Noted that lasix was being held and patient was being hydrated. 08/26/2023 Patient evaluated resting in bed. Has been resumed on eliquis cleared by GI. Creatinine today slightly improved 1.88, IV fluids were stopped. Renal ultrasound does show moderate right sided hydronephrosis he has had 1180 mls out in the last 24 hours. Bladder scan is showing about 180-200 mls left in bladder. Recommended to start the patient on flomax. He reports difficulty swallowing today, does have left neck mass which is quite swollen and firm. He also has white coating on tongue will be started on IV diflucan. 08/27/2023 Patient resting in bed. PT/OT on consultation needs encouragement to be up out of bed. Urology recommending to monitor bladder scan PVR, and patient has been started on flomax. Speech therapy evaluation in to see patient had concerns regarding swallowing and pt underwent MBS and patient will continue on dysphagia 2 ground diet with thin liquids. Patient needs to sit upright for all meals. Discussed with oncology patients main complaint is the swelling and pain from the left neck mass. Review of Systems Constitutional: Denied any fatigue denied any fever. Cardio vascular: denied any chest pain, palpitations Gastrointestinal: denied any nausea, vomiting, diarrhea Pulmonary: Denied any shortness of breath cough Neurologic denied any new focal deficits All inpatient medications were reviewed and appropriate changes in these medications as dictated in the interval history and assessment and plan. PHYSICAL EXAMINATION: GENERAL: The patient is alert and oriented x3, not in any acute distress. Well developed, well nourished. HEENT: Pupils are round and equally reacting to light. EOMI. No scleral icterus. No conjunctival pallor. Normocephalic, atraumatic. No pharyngeal erythema. No thyromegaly. CARDIOVASCULAR: S1 and S2 present. No murmurs, rubs, or gallops. PULMONARY: Chest is clear to auscultation, no wheezing or crackles. ABDOMEN: Soft, nontender, nondistended, normoactive bowel sounds. No palpable organomegaly. MUSCULOSKELETAL: No joint swelling or deformity. EXTREMITIES: No cyanosis, clubbing, or pedal edema. NEUROLOGICAL: Gross neurological examination did not reveal any focal deficits. Diffuse weakness. SKIN: No rashes. Pale, 1+ lower extremity pitting edema. Left upper extremity mild edema. swelling on the left side of the face. Assessment -Acute congestive heart exacerbation from diastolic dysfunction 50-55% -Recurrent coffee-ground emesis no further episodes EGD reveals esophagitis and Otoole's esophagus -Acute kidney injury from cardiorenal nephrology consultation in place. -Oral Thrush -Acute COPD exacerbation, improved -Paroxysmal atrial fibrillation - sinus rhythm -Essential hypertension -Mild hydronephrosis followed by urology. -Metastatic urothelial carcinoma; Completed treatment with concurrent chemo/RT in 06/2020. Was following up for observation in clinic through 11/2021 with no evidence of recurrence. Stopped f/u with urology in February 2022 due to insurance reasons, and has not had f/u since -Progressing left neck mass. Metastatic non-small cell carcinoma consistent with metastatic high-grade urothelial carcinoma, Needs PET outpatient and clinic f/u with Dr. Banda -Hyperkalemia from underlying CKD: Improved -Non occlusive DVT in the left internal jugular vein. Superficial thrombosis within the left cephalic vein. -metabolic acidosis from renal failure, improved -Hypocalcemia -CAD with stent 2018 -Hyperlipidemia -Diabetes mellitus type 2 on oral hypoglycemic; metformin being held. DVT prophylaxis anticoagulation resumed today. GI prophylaxis -Full code. Plan Recommending to hold metformin due to the EDITH continue on novolog and sliding scale. Nephrology consultation recommending IV lasix Q12 and urology consultation for the hydronephrosis Continue bladder scan Q6h. Eliquis resumed. Continue with compression sleeve to the left arm. Discussed neck mass with oncology as patient is having increased pain and d iscomfort and repeats difficulty swallowing. Rad Onc has been consulted for evaluation. On IV diflucan for evidence of oral thrush Levemir added for improved glycemic control PT/OT following. Repeat labs in AM. The impression and plan of care has been dictated by Sandy Coreas, Nurse Practitioner as directed. Dr. Stefani MD I have performed a history and physical examination and medical decision making of this patient, discussed the same with the dictator, and agree with the dictators assessment and plan as written, documented as a scribe. Based on total visit time, I have performed more than 50% of this visit. Objective - Vital Signs Vital signs: Vital Signs Temp 98.1 F 08/27/23 09:30 Pulse 84 08/27/23 12:19 Resp 18 08/27/23 12:19 BP 136/63 08/27/23 12:19 Pulse Ox 96 08/27/23 12:19 FiO2 Intake & Output 08/26/23 08/27/23 08/27/23 18:59 06:59 18:59 Intake Total 900 20 20 Output Total 600 1000 400 Balance 300 -980 -380 Intake: IV 20 20 Invasive Line 2 10 Invasive Line 3 10 20 Oral 900 Output: Urine 600 1000 400 Other: Voiding Method Indwelling Catheter Indwelling Catheter Indwelling Catheter - Labs CBC & Chem 7: 08/26/23 08:56 08/27/23 07:37 Labs: Abnormal Lab Results - Last 24 Hours (Table) 08/26/23 08/26/23 08/27/23 Range/Units 08:56 20:29 06:32 Sodium (137-145) mmol/L BUN (9-20) mg/dL Creatinine (0.66-1.25) mg/dL Glucose (74-99) mg/dL POC Glucose (mg/dL) 244 H 173 H (70-110) mg/dL Calcium (8.4-10.2) mg/dL Iron 32 L (65-175) UG/DL TIBC 193 L (228-460) UG/DL Transferrin 138.0 L (204.0-354.0) mg/dL 11/06/23 11/06/23 11/06/23 Range/Units 07:37 11:23 16:22 Sodium 134 L (137-145) mmol/L BUN 25 H (9-20) mg/dL Creatinine 1.75 H (0.66-1.25) mg/dL Glucose 146 H (74-99) mg/dL POC Glucose (mg/dL) 167 H 221 H (70-110) mg/dL Calcium 7.3 L (8.4-10.2) mg/dL Iron (65-175) UG/DL TIBC (228-460) UG/DL Transferrin (204.0-354.0) mg/dL Assessment and Plan Time with Patient: Less than 30
[2023-08-27 21:19] LABS: Glucose,Whole Blood 201 mg/dL (70-110)
[2023-08-27] MEDS: INSULIN DETEMIR (LEVEMIR) 100 UNIT/ML SYR SQ SCH (21:27)
[2023-08-28] MEDS: HYDROcodone/APAP 5-325MG 1 EACH TAB PO PRN ×4 (03:10→22:12)
[2023-08-28 06:20] LABS: Glucose,Whole Blood 134 mg/dL (70-110)
[2023-08-28] MEDS: INSULIN ASPART (NovoLOG) 100 UNIT/ML VIAL SQ SCH ×4 (06:22→22:13)
[2023-08-28] MEDS: PANTOPRAZOLE 40 MG TABLET PO SCH ×2 (06:28→17:01)
[2023-08-28] MEDS: LEVOTHYROXINE 25 MCG TAB PO SCH (06:28)
[2023-08-28] MEDS: TAMSULOSIN 0.4 MG CAP.ER.24H PO SCH (08:56)
[2023-08-28] MEDS: CALCIUM CARB-VIT D 500 MG-5 MCG TAB PO SCH (08:56)
[2023-08-28] MEDS: ATORVASTATIN 80 MG TAB PO SCH (08:56)
[2023-08-28] MEDS: APIXABAN 5 MG TAB PO SCH ×2 (08:56→22:12)
[2023-08-28] MEDS: hydrALAZINE HCL 25 MG TAB PO SCH ×4 (08:56→22:12)
[2023-08-28] MEDS: LORATADINE 10 MG TAB PO SCH (08:56)
[2023-08-28] MEDS: MAGNESIUM OXIDE 400 MG TAB PO SCH (08:56)
[2023-08-28] MEDS: METOPROLOL TARTRATE 50 MG TAB PO SCH ×2 (08:56→22:11)
[2023-08-28] MEDS: FLUCONAZOLE IN NACL,ISO-OSM 100 MG in SALINE 1 50ML.BAG IVPB SCH (08:57)
[2023-08-28] MEDS: DOCUSATE 100 MG CAP PO SCH ×2 (08:57→22:10)
[2023-08-28] MEDS: FUROSEMIDE 10 MG/ML 4 ML VIAL IV SCH ×2 (08:57→22:11)
[2023-08-28] MEDS: amLODIPine 10 MG TAB PO SCH (08:59)
[2023-08-28] MEDS: IPRATROPIUM-ALBUTEROL 3 ML NEB INHALATION SCH ×4 (09:42→21:13)
[2023-08-28] MEDS: BUDESONIDE 1 MG/2 ML NEBU INHALATION SCH ×2 (09:42→21:13)
[2023-08-28] MEDS: NON FORMULARY DRUG (Liraglutide [Victoza 3-Pak] 0.6 MG/0.1 ML Ml) SQ SCH (09:45)
[2023-08-28 11:38] LABS: Glucose,Whole Blood 140 mg/dL (70-110)
--- NOTE | 2023-08-28 12:03 | P.PN ---
Subjective Patient is seen for follow-up for acute kidney injury. History of acute kidney injury in July 2023 which resolved with creatinine decreasing from 7.4-1.2 upon discharge. Patient also has a history of right hydronephrosis with history of metastatic urothelial carcinoma being followed by urology and oncology. Serum creatinine improved to 1.7 from 1.98 at peak this admission. Currently maintained on IV Lasix. 24 hour urine output at 1400 ML. No significant complaints today. Objective - Vital Signs Vital signs: Vital Signs Temp 98.4 F 08/28/23 09:28 Pulse 72 08/28/23 09:55 Resp 18 08/28/23 09:28 BP 130/65 08/28/23 09:28 Pulse Ox 95 08/28/23 09:43 FiO2 Intake & Output 08/27/23 08/28/23 08/28/23 18:59 06:59 18:59 Intake Total 260 10 190 Output Total 400 1000 600 Balance -140 -990 -410 Weight 89 kg Intake: IV 20 10 10 Invasive Line 3 20 10 10 Oral 240 180 Output: Urine 400 1000 600 Other: Voiding Method Indwelling Catheter Indwelling Catheter Indwelling Catheter - Exam On examination patient is comfortable awake no acute distress Examination of the heart S1 and S2 Examination of the lungs bilateral breath sounds are heard Abdomen is soft nontender Lower extremities show 1+ 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 Acute kidney injury secondary to ATN secondary to cardiorenal syndrome. Creatinine peaked at 1.9 at this admission and is 1.7 today. Right-sided hydronephrosis noted on kidney ultrasound. UA shows 1+ protein and no blood. Creatinine as low as 1.23 dated 08/10/2023. Urine retention noted and Montalvo catheter was placed. No plans for intervention from the urology standpoint given that serum creatinine had improved to 1.2 from 7.4 last admission in spite of right hydronephrosis. 2. Acute on chronic diastolic CHF. 3. Volume overload with scrotal edema. 4. Diabetes mellitus. 5. Benign hypertension. 6. Anemia. No significant iron deficiency noted. EGD done this admission showed esophagitis and Otoole's esophagus no active bleeding. Plan: Continue with IV Lasix Continue with Montalvo catheter Repeat labs in a.m. Continue to avoid nephrotoxic agents. DC sodium bicarb
--- NOTE | 2023-08-28 12:48 | P.CONS ---
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 The patient was lost to follow-up and 2021. He unfortunately now presents with evidence of metastatic disease involving the left neck resulting in pain. As noted above, the patient had not followed up with oncology in the past year. In October 2022, he fell and suffered a right hip fracture. He states that following this, the patient has been limited to ambulating only short distances. The patient was hospitalized on August 04, and at the time he presented with complaints of neck pain, nausea and vomiting. He was found to be an significant acute renal failure. On August 05, he had a computed tomography scan of the neck which revealed enlargement of the left parotid gland with overlying inflam mation. There was thickening of the sternocleidomastoid and adenopathy noted. Neoplasm was not excluded. Computed tomography scan of the chest, abdomen and pelvis did reveal some dilated loops of small bowel and haziness in the mesentery. This was felt to possibly represent ischemic bowel versus enteritis. There was mild right hydronephrosis noted. The patient underwent ultrasound- guided biopsy of the left neck. This revealed a static high-grade carcinoma, consistent with the patient's prior urothelial carcinoma. The patient was discharged, and unfortunately return to the ER one week later on August 17. At this time, the patient was having bilateral lower extremity, scrotal and left upper extremity edema. Ultrasound exam revealed no lower extremity DVT, but there was noted DVT in the left internal jugular. The patient was reportedly diagnosed with congestive heart failure at this time. He was started on Lasix, and states that he has had some improvement in the left arm swelling. On August 24, the patient underwent an EGD secondary to concern for upper GI bleed (patient was anemic). This revealed some esophagitis but no active sites of bleeding. The patient reports she is having persistent left neck pain and swelling. He states her started in June, but has been worsening. He states the pain is intermittent and there are no clear exacerbating factors. The pain can be up to 10 out of 10 at times. He gets partial relief from S[place]. He still has swelling in the bilateral lower extremities, but he thinks it is gradually improving. The patient was told he would likely need to be discharged to subacute rehab. He is having difficulty lying flat. Review of Systems Constitutional: Denies chills, Denies fever Eyes: denies blurred vision Ears, nose, mouth and throat: Reports as per HPI, Reports neck fullness/pressure, Reports neck lump Cardiovascular: Denies chest pain Respiratory: Reports congestion, Reports dyspnea, Denies hemoptysis Gastrointestinal: Denies abdominal pain, Denies bloating Genitourinary: Reports urinary retention (wolf in place) Integumentary: Denies rash Neurological: Denies aphasia, Denies ataxia Psychiatric: Denies anxiety Past Medical History Past Medical History: Coronary Artery Disease (CAD), Cancer, Diabetes Mellitus, Hyperlipidemia, Hypertension, Myocardial Infarction (OK), Osteoarthritis (OA) Additional Past Medical History / Comment(s): Bladder cancer stage with treatment, in remission since 2020. IDDM type II, post polio syndrome,leg length discrepancy, bronchitis, chronic low back pain. Last Myocardial Infarction Date:: 07/23/19 History of Any Multi-Drug Resistant Organisms: None Reported Past Surgical History: Heart Catheterization With Stent, Orthopedic Surgery Additional Past Surgical History / Comment(s): Cystoscopy, TURBT x2, closure of patent urachus bladder tumor as , R leg surgery d/t polio-lengthening, cardiac stents 2018; Right hip surgery 11/03/2022 Past Anesthesia/Blood Transfusion Reactions: No Reported Reaction Date of Last Stent Placement:: 07/23/19 Past Psychological History: No Psychological Hx Reported Additional Psychological History / Comment(s): Pt resides with his spouse. He is independent. He just started ambulating with a cane or walker Smoking Status: Former smoker Past Alcohol Use History: None Reported Additional Past Alcohol Use History / Comment(s): Pt started smoking in 1968 and quit 07/21/19. Prior ETOH abuse-pt states he hasnt had alcohol in months Past Drug Use History: None Reported - Past Family History Father History Unknown: Yes Mother Additional Family Medical History / Comment(s): Mother of in a MVA when pt was 15 yrs old. Brother(s) Additional Family Medical History / Comment(s): Pt has one brother who of a bowel problem and another brother that of a ruptured aneurysm. Medications and Allergies Home Medications Medication Instructions Recorded Confirmed Type Aspirin 81 mg PO DAILY #90 chewable 07/25/19 08/17/23 Rx Atorvastatin [Lipitor] 80 mg PO DAILY 05/13/20 08/17/23 History Liraglutide [Victoza 3-Sam] 1.8 mg SQ DAILY 08/04/23 08/17/23 History metFORMIN HCL ER [Glucophage XR] 500 mg PO BID 08/04/23 08/17/23 History Apixaban [Eliquis] 5 mg PO BID #60 tab 08/10/23 08/17/23 Rx Magnesium Oxide [Mag-Ox] 400 mg PO DAILY #30 tab 08/10/23 08/17/23 Rx Metoprolol Tartrate [Lopressor] 50 mg PO BID #60 tab 08/10/23 08/17/23 Rx amLODIPine [Norvasc] 10 mg PO DAILY #30 tab 08/10/23 08/17/23 Rx hydrALAZINE HCL [Apresoline] 50 mg PO QID #120 tab 08/10/23 08/17/23 Rx Albuterol Sulfate [Albuterol 1 puff INHALATION RT-Q4H PRN 08/17/23 08/17/23 History Sulfate Hfa] Calcium Carb-Vit D 500Mg-5Mcg 1 tab PO DAILY 08/17/23 08/17/23 History [Oscal 500+D 5 Mcg (200 Iu)] HYDROcodone/APAP 5-325MG [[place] 1 tab PO Q6H PRN 08/17/23 08/17/23 History 5-325] Levofloxacin [Levaquin] See Taper PO DAILY 08/17/23 08/17/23 History metroNIDAZOLE [Flagyl] 500 mg PO TID 08/17/23 08/17/23 History Allergies Allergy/AdvReac Type Severity Reaction Status Date / Time No Known Allergies Allergy Verified 08/17/23 12:11 Physical Exam Vitals: Vital Signs Temp Pulse Pulse Pulse Resp BP Pulse Ox 08/28/23 09:55 72 08/28/23 09:43 72 95 08/28/23 09:28 98.4 F 70 18 130/65 95 08/28/23 03:12 98.2 F 74 16 131/60 95 08/28/23 00:00 98.4 F 77 16 138/66 93 L 08/27/23 21:02 72 08/27/23 20:46 72 08/27/23 20:00 98.0 F 81 18 145/63 93 L 08/27/23 16:00 98.0 F 68 16 144/69 97 Intake and Output 08/27/23 08/28/23 08/28/23 22:59 06:59 14:59 Intake Total 250 190 Output Total 400 600 600 Balance -150 -600 -410 Intake: IV 10 10 Invasive Line 3 10 10 Oral 240 180 Output: Urine 400 600 600 Other: Voiding Method Indwelling Catheter Indwelling Catheter Indwelling Catheter Weight 89 kg - Constitutional General appearance: no acute distress - EENT Eyes: EOMI, PERRLA ENT: hearing grossly normal - Neck Neck: lymphadenopathy (Left neck skin thickening noted from parotid gland down to near supraclav consistent with neoplastic involvement.) - Respiratory Respiratory: bilateral: diminished - Cardiovascular Rhythm: regular - Gastrointestinal General gastrointestinal: no distended, no tenderness - Integumentary Integumentary: pale - Neurologic Neurologic: CNII-XII intact - Musculoskeletal Musculoskeletal: generalized weakness - Psychiatric Psychiatric: A&O x's 3, appropriate affect Results CBC & Chem 7: 08/26/23 08:56 08/27/23 07:37 Labs: Abnormal Lab Results - Last 24 Hours (Table) 08/27/23 08/27/23 08/28/23 Range/Units 16:22 20:40 06:18 POC Glucose (mg/dL) 221 H 201 H 134 H (70-110) mg/dL 08/28/23 Range/Units 11:35 POC Glucose (mg/dL) 140 H (70-110) mg/dL CT scan - abdomen: report reviewed, image reviewed CT scan - chest: report reviewed, image reviewed CT Scan - head: report reviewed CT scan - pelvis: report reviewed, image reviewed Assessment and Plan Assessment: The patient is a 73-year-old male previously treated for a 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 The patient was lost to follow-up and 2021. He unfortunately now presents with evidence of metastatic disease involving the left neck resulting in pain. Plan: 1. Left neck pain: As detailed above, the patient's left neck is swollen and firm consistent with malignancy extending from the parotid to near the clavicle. The patient reports that this is a persistent area of pain. It is biopsy proven recurrence of his bladder cancer. This is a slightly unusual presentation, as the patient CT did not show clear elsewhere disease. However, the involvement of the left neck is fairly extensive. I discussed with the patient he may be a candidate for a palliative course of radiation to this region. However, at the current time the patient is concerned about his ability to lie flat. I explained she would need to be able to be supine on the CT table to undergo palliative RT. I explained this may help with his pain, but would not be curative in nature. I will check in with the patient again to see if he is willing to attempt palliative radiation. I will touch base with medical oncology regarding their plans. 2. Declining performance status: As noted above, the patient has suffered a decrease in his performance status over the past year. A right hip fracture has left him unable to walk more than a few steps. He has also had recent difficulty with new onset of congestive heart failure, A. fib with RVR and a new left internal jugular DVT. The patient will likely need to show some clinical improvement if there is any chance of him undergoing systemic therapy for this metastatic malignancy. Time with Patient: Greater than 30
[2023-08-28 16:45] LABS: Glucose,Whole Blood 207 mg/dL (70-110)
--- NOTE | 2023-08-28 19:47 | P.PN ---
Progress Note - Text Progress Note Date: 08/28/23 Pleasant 72-year-old patient who follows with Dr. Johnny Rubio./Mid-level provider-Kareen. Chronic stable medical conditions include CAD with stent in 2018, diabetes, hypertension, hyperlipidemia, osteoporosis, bladder cancer with treatment in remission and cystoscopy 2020, patient had right hip surgery in October of this year now does use a walker when he goes outside. Otherwise a cane. Patient was recently discharged from the hospital 08/04-08/14 left sided neck mass concerning for malignancy Presents today because of increasing swelling of arms and legs. Also patient complaining of from little shortness of breath occasional coughing but no chest pain He says he cannot go for his urine but he denies any GI problems No headache dizziness weakness numbness. he denies smoking, Alcohol or illicit tracts, He was not discharged on Lasix Vitals stable Labs are showing mild leukocytosis of 11.7, last time he was discharged his WBCs were 18.2. Hemoglobin 11.1, rest of CBC, INR is unremarkable. Creatinine 1.3 which is at baseline, potassium 5.4, magnesium 1.2. TSH is high at 18 and free T4 is low at 0.65 EKG showing normal sinus rhythm at [address]-T changes. Mild ST depression on the sixth Chest x-ray: Cardiomegaly with pulmonary vascular congestion and right pleural effusion suggestive of CHF. Venous Doppler: Superficial thrombus seen within the left cephalic vein. Nonocclusive deep venous thrombosis seen in the internal jugular vein 08/18/2023 Patient sitting up in bed, states that his breathing is slightly better, he can lie flat as he describes. Patient is not working at baseline, confirmed. The at bedside. History the have significant swelling of arms and legs. Patient was started on IV Lasix 40 mg twice daily and he continued on home dose of liquids 5 mg. Also patient is started on small dose of levothyroxine 25 g. 08/19/2023 Patient's no breathing difficulties, history and embedded and not walking, his main problem is the swelling. Patient currently on IV Lasix twice daily, he says he did not urinate and much. We'll discuss with the staff to check bladder scan. He was started on levothyroxine 25 g. Oncology team on the case, continue with Eliquis for his upper extremity DVT. Also present college patient will require PET CT as an outpatient and then follow up with . also 08/20/2023: Up in a recliner. Bouts of coughing. Clear sputum. No fever no chills. Breathing better. Eating well. at the bedside. We will apply sleeve to the left upper extremity August 21: Reclining in bed. Coughing and sputum production much better. On DuoNeb and Pulmicort started yesterday. August 22: Patient vomited overnight a few times. Some coffee-ground emesis this morning. Put on clear liquids. GI consulted. Protonix added. August 23: Patient should have 1 more episode of coffee-ground emesis yesterday evening. Clear liquids. Nothing by mouth after midnight. Remains off eliquis. Plan for EGD tomorrow by GI. 08/25/2023 Patient evaluated today resting in bed. He states he feels improve as compared to yesterday. Underwent EGD which reveals Otoole's esophagus and esophagitis. Patient on protonix BID. Hemoglobin stable 9.3 today. No active bleeding noted. Cleared by GI to resume eliquis today. Renal function worsening with IV fluids currently up to 1.98. Noted that lasix was being held and patient was being hydrated. 08/26/2023 Patient evaluated resting in bed. Has been resumed on eliquis cleared by GI. Creatinine today slightly improved 1.88, IV fluids were stopped. Renal ultrasound does show moderate right sided hydronephrosis he has had 1180 mls out in the last 24 hours. Bladder scan is showing about 180-200 mls left in bladder. Recommended to start the patient on flomax. He reports difficulty swallowing today, does have left neck mass which is quite swollen and firm. He also has white coating on tongue will be started on IV diflucan. 08/27/2023 Patient resting in bed. PT/OT on consultation needs encouragement to be up out of bed. Urology recommending to monitor bladder scan PVR, and patient has been started on flomax. Speech therapy evaluation in to see patient had concerns regarding swallowing and pt underwent MBS and patient will continue on dysphagia 2 ground diet with thin liquids. Patient needs to sit upright for all meals. Discussed with oncology patients main complaint is the swelling and pain from the left neck mass. 08/28/2023: I resumed care of the patient today. Propped up in bed. Eating. Some pain in the left fascial tumor. Patient's had a Montalvo catheter for 2 days. Also being followed by nephrology and urology. Latter no current intervention. On IV Lasix. Patient had undergone EGD by Dr. Thuan Mart on August 24. Showed esophagitis and Otoole's esophagus. Active Medications Acetaminophen (Acetaminophen Tab 325 Mg Tab) 650 mg PO Q6HR PRN PRN Reason: Mild Pain or Fever > 100.5 Hydrocodone Bitart/Acetaminophen (Hydrocodone/Apap 5-325mg 1 Each Tab) 1 each PO Q6H PRN PRN Reason: Pain Last Admin: 08/28/23 16:28 Dose: 1 each Albuterol Sulfate (Albuterol Nebulized 2.5 Mg/3 Ml) 2.5 mg INHALATION RT-Q4H PRN PRN Reason: Shortness Of Breath Last Admin: 08/19/23 13:37 Dose: 2.5 mg Albuterol/Ipratropium (Ipratropium-Albuterol 3 Ml Neb) 3 ml INHALATION RT-QID [facility] Last Admin: 08/28/23 16:50 Dose: 3 ml Amlodipine Besylate (Amlodipine 10 Mg Tab) 10 mg PO DAILY [facility] Last Admin: 08/28/23 08:59 Dose: 10 mg Apixaban (Apixaban 5 Mg Tab) 5 mg PO BID [facility]; Protocol Last Admin: 08/28/23 08:56 Dose: 5 mg Atorvastatin Calcium (Atorvastatin 80 Mg Tab) 80 mg PO DAILY [facility] Last Admin: 08/28/23 08:56 Dose: 80 mg Benzonatate (Benzonatate 100 Mg Cap) 100 mg PO TID PRN PRN Reason: Cough Last Admin: 08/19/23 13:22 Dose: 100 mg Budesonide (Budesonide 1 Mg/2 Ml Nebu) 1 mg INHALATION RT-BID [facility] Last Admin: 08/28/23 09:42 Dose: 1 mg Calcium Carbonate (Calcium Carb-Vit D 500 Mg-5 Mcg Tab) 1 each PO DAILY [facility] Last Admin: 08/28/23 08:56 Dose: 1 each Docusate Sodium (Docusate 100 Mg Cap) 100 mg PO BID [facility] Last Admin: 08/28/23 08:57 Dose: 100 mg Fluticasone Propionate (Fluticasone 50mcg/[place] Nasal 16gm) 2 spray EA NOSTRIL DAILY PRN PRN Reason: Allergy Symptoms Furosemide (Furosemide 10 Mg/Ml 4 Ml Vial) 40 mg IV Q12HR [facility] Last Admin: 08/28/23 08:57 Dose: 40 mg Guaifenesin (Guaifenesin Syrup 100mg/5ml 200 Mg/10 Ml Cup) 200 mg PO Q6HR PRN PRN Reason: Cough Last Admin: 08/25/23 13:13 Dose: 200 mg Hydralazine HCl (Hydralazine Hcl 25 Mg Tab) 75 mg PO QID [facility] Last Admin: 08/28/23 17:01 Dose: 75 mg Fluconazole/Sodium Chloride (100 mg/ IV Solution) 50 mls @ 50 mls/hr IVPB DAILY [facility]; Protocol Last Admin: 08/28/23 08:57 Dose: 50 mls/hr Insulin Aspart (Insulin Aspart (Novolog) 100 Unit/Ml Vial) 0 unit SQ ACHS [facility]; Protocol Last Admin: 08/28/23 17:01 Dose: 4 unit Insulin Detemir (Insulin Detemir (Levemir) 100 Unit/Ml Syr) 10 unit SQ [facility] Last Admin: 08/27/23 21:27 Dose: 10 unit Levothyroxine Sodium (Levothyroxine 25 Mcg Tab) 25 mcg PO DAILY@0630 [facility] Last Admin: 08/28/23 06:28 Dose: 25 mcg Loratadine (Loratadine 10 Mg Tab) 5 mg PO DAILY [facility] Last Admin: 08/28/23 08:56 Dose: 5 mg Magnesium Oxide (Magnesium Oxide 400 Mg Tab) 400 mg PO DAILY [facility] Last Admin: 08/28/23 08:56 Dose: 400 mg Metoclopramide HCl (Metoclopramide 5 Mg/Ml 2 Ml Vial) 10 mg IVP Q6HR PRN PRN Reason: Nausea And Vomiting Last Admin: 08/22/23 21:25 Dose: 10 mg Metoprolol Tartrate (Metoprolol Tartrate 50 Mg Tab) 50 mg PO BID [facility] Last Admin: 08/28/23 08:56 Dose: 50 mg Miscellaneous Information (Magnesium Replacement Protocol 1 Each Misc) 1 each MISCELLANE DAILY PRN; Protocol PRN Reason: Per Protocol Morphine Sulfate (Morphine Sulfate 4 Mg/Ml Syringe) 4 mg IVP Q4HR PRN PRN Reason: Pain Naloxone HCl (Naloxone 0.4 Mg/Ml 1 Ml Vial) 0.2 mg IV Q2M PRN PRN Reason: Opioid Reversal Non-Formulary Medication (Liraglutide [Victoza 3-Sam]) 1.8 mg SQ DAILY [facility] Last Admin: 08/28/23 09:45 Dose: Not Given Pantoprazole Sodium (Pantoprazole 40 Mg Tablet) 40 mg PO AC-BID [facility] Last Admin: 08/28/23 17:01 Dose: 40 mg Tamsulosin HCl (Tamsulosin 0.4 Mg Cap.Er.24h) 0.4 mg PO DAILY [facility] Last Admin: 08/28/23 08:56 Dose: 0.4 mg Social history: Used to work in a [employer]. . 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 Patient Smoked for 50 Years Stopped in 2019. Also Is Drinking Excessive Alcohol up to 2019. Physical examination: VITAL SIGNS: 97.1, 74, 17, 133.65, 84% on 2 L GENERAL: Propped up in bed, eating lunch EYES: Pupils equal. Conjunctiva normal. HEENT: External appearance of nose and ears normal, oral cavity grossly normal. NECK: JVD not raised; masses not palpable. Hard mass of the left upper neck going to the mandible. Hard. HEART: Heart sounds irregular; no edema. LUNGS: Respiratory rate normal; decreased breath sounds. ABDOMEN: Soft, nontender, liver spleen not palpable, no masses palpable. PSYCH: Alert and oriented x3; mood and affect normal EXTREMITY: Left upper extremity swelling compared to the right MUSCULOSKELETAL:No Clubbing/cyanosis;muscles-grossly intact. OA INVESTIGATIONS, reviewed in the clinical context: EGD: Legionnaire erosions distal esophagus LA grade B reflux esophagitis. [place] esophagus. Barium swallow with redo: Transient penetration with thin liquids. No aspiration. August 27: Potassium 3.9 BUN 25 creatinine 1.75 B12 759 folate 8.5, copper 882 August 23: White count 8.8 hemoglobin 8.9 potassium 4.2 creatinine 1.67 August 21: Sodium 134 potassium 4.5 BUN 31 creatinine 1.37 August 20: White count 9.5 hemoglobin 9.6 (219 potassium 5.4 BUN 34 creatinine 1.50 Ultrasound Doppler of the left upper extremity: Non occlusive DVT in the eye JVD. Superficial thrombosis within the left cephalic vein. . Recent investigations: 2-D echocardiogram: Preserved LV function. Mild inferior septal hypokinesis. CT soft tissue neck without contrast: Enlargement of the left parotid gland with surrounding the inflammatory attenuation as well as skeletal thinking. Also inflammatory thickening of the left sternocleidomastoid musculature. Surrounding reactive adenopathy. No obstructing Loss. CT chest abdomen pelvis: Small bowel guarded to 3 cm. Mild right-sided hydronephrosis. Gallstones Chest x-ray film personally reviewed by me-hyperinflation. Some pulmonary artery prominence EKG tracing personally reviewed by me-possible ectopic atrial rhythm. Ultrasound kidney: Mild right-sided hydronephrosis. Assessment: -Acute congestive heart exacerbation from diastolic dysfunction 50-55%.: Lasix 40 mg IV every 12 Followed by cardiology -Acute kidney injury secondary to ATN secondary to cardiorenal syndrome. Right- sided hydronephrosis. Creatinine peaked at 1.9. Montalvo catheter. Follow with nephrology -Recurrent coffee-ground emesis., EGD: Esophagitis and Otoole's esophagus PPI Dr. Thuan Mart -Acute COPD exacerbation and a prior smoker: Better DuoNeb 4 times a day. Nebulized Pulmicort 1 mg twice a day. Paroxysmal atrial fibrillation - sinus rhythm Lopressor 50 mg twice a day Eliquis was held for coffee-ground emesis. Resumed -Essential hypertension Lopressor 50 mg twice a day. Amlodipine 10 mg a day Hydralazine 75 mg 4 times a day -Mild hydronephrosis For further workup outpatient with urology -Metastatic urothelial carcinoma: -Completed treatment with concurrent chemo/RT in 06/2020. Was following up for observation in clinic through 11/2021 with no evidence of recurrence. Stopped f/u with urology in February 2022 due to insurance reasons, and has not had f/u since -Progressing left neck mass. Biopsy of the lt neck mass revealed metastatic non- small cell carcinoma consistent with metastatic high-grade urothelial carcinoma. Results were discussed with patient and spouse -Will reschedule PET CT, and pending hospitalization may have to reschedule clinic f/u with Dr. Banda -Hyperkalemia from underlying CK D: Improved Kayexalate -Non occlusive DVT in the left internal jugular vein. Superficial thrombosis within the left cephalic vein. Eliquis Sleeve left upper extremity Seen by Dr. Montalvo from vascular. - metabolic acidosis from renal failure: Sodium bicarbonate -Hypocalcemia Os-Car vitamin D -Left upper neck mass. Metastatic non-small cell carcinoma consistent with metastatic high-grade urothelial carcinoma Follow-up with Dr. Cardoza from oncology -CAD with stent 2019 Aspirin. Coreg -Hyperlipidemia Lipitor -Diabetes mellitus type 2 on oral hypoglycemic Follow Accu-Cheks and sliding scale Victoza. Metformin. -Full code. [Discussed with patient and present.] Tolerating diet. IV Lasix. Discussed with patient and . Follow-up with nephrology. Sodium bicarb discontinued.
[2023-08-28 20:07] LABS: Glucose,Whole Blood 208 mg/dL (70-110)
[2023-08-28] MEDS: INSULIN DETEMIR (LEVEMIR) 100 UNIT/ML SYR SQ SCH (22:11)
[2023-08-29 05:11] LABS: Methylmalonic Acid 0.38 umol/L (<0.40)
[2023-08-29 06:01] LABS: Glucose,Whole Blood 139 mg/dL (70-110)
[2023-08-29] MEDS: PANTOPRAZOLE 40 MG TABLET PO SCH ×2 (06:46→16:51)
[2023-08-29] MEDS: LEVOTHYROXINE 25 MCG TAB PO SCH (06:46)
[2023-08-29] MEDS: HYDROcodone/APAP 5-325MG 1 EACH TAB PO PRN (06:46)
[2023-08-29] MEDS: BUDESONIDE 1 MG/2 ML NEBU INHALATION SCH ×2 (08:37→21:47)
[2023-08-29] MEDS: IPRATROPIUM-ALBUTEROL 3 ML NEB INHALATION SCH ×4 (08:37→21:47)
[2023-08-29] MEDS: INSULIN ASPART (NovoLOG) 100 UNIT/ML VIAL SQ SCH ×4 (08:49→21:04)
[2023-08-29] MEDS: CALCIUM CARB-VIT D 500 MG-5 MCG TAB PO SCH (09:25)
[2023-08-29] MEDS: DOCUSATE 100 MG CAP PO SCH ×2 (09:25→21:05)
[2023-08-29] MEDS: APIXABAN 5 MG TAB PO SCH ×2 (09:25→21:05)
[2023-08-29] MEDS: ATORVASTATIN 80 MG TAB PO SCH (09:25)
[2023-08-29] MEDS: amLODIPine 10 MG TAB PO SCH (09:25)
[2023-08-29] MEDS: MAGNESIUM OXIDE 400 MG TAB PO SCH (09:25)
[2023-08-29] MEDS: TAMSULOSIN 0.4 MG CAP.ER.24H PO SCH (09:25)
[2023-08-29] MEDS: METOPROLOL TARTRATE 50 MG TAB PO SCH ×2 (09:25→21:05)
[2023-08-29] MEDS: LORATADINE 10 MG TAB PO SCH (09:25)
[2023-08-29] MEDS: FUROSEMIDE 10 MG/ML 4 ML VIAL IV SCH ×2 (09:25→21:04)
[2023-08-29] MEDS: hydrALAZINE HCL 25 MG TAB PO SCH ×4 (09:25→21:05)
[2023-08-29] MEDS: NON FORMULARY DRUG (Liraglutide [Victoza 3-Pak] 0.6 MG/0.1 ML Ml) SQ SCH (09:26)
[2023-08-29] MEDS: FLUCONAZOLE IN NACL,ISO-OSM 100 MG in SALINE 1 50ML.BAG IVPB SCH (09:42)
--- NOTE | 2023-08-29 11:37 | P.PN ---
Subjective Patient is seen for follow-up for acute kidney injury. History of acute kidney injury in July 2023 which resolved with creatinine decreasing from 7.4-1.2 upon discharge. Patient also has a history of right hydronephrosis with history of metastatic urothelial carcinoma being followed by urology and oncology. Serum creatinine improved to 1.7 from 1.98 at peak this admission. Currently maintained on IV Lasix. 24 hour urine output at 1825 ML. No significant complaints today. Objective - Vital Signs Vital signs: Vital Signs Temp 98.1 F 08/29/23 09:05 Pulse 75 08/29/23 11:24 Resp 17 08/29/23 11:24 BP 126/54 08/29/23 11:24 Pulse Ox 95 08/29/23 11:24 FiO2 Intake & Output 08/28/23 08/29/23 08/29/23 18:59 06:59 18:59 Intake Total 560 20 180 Output Total 600 1225 Balance -40 -1205 180 Weight 90.1 kg Intake: IV 20 20 Invasive Line 3 20 20 Oral 540 180 Output: Urine 600 1225 Other: Voiding Method Indwelling Catheter Indwelling Catheter Indwelling Catheter - Exam On examination patient is comfortable awake no acute distress Examination of the heart S1 and S2 Examination of the lungs bilateral breath sounds are heard Abdomen is soft nontender Lower extremities show 1+ edema bilaterally [employer] exam grossly intact - Labs CBC & Chem 7: 08/26/23 08:56 08/27/23 07:37 Labs: Abnormal Lab Results - Last 24 Hours (Table) 08/28/23 08/28/23 08/28/23 Range/Units 11:35 16:43 20:05 POC Glucose (mg/dL) 140 H 207 H 208 H (70-110) mg/dL 08/29/23 Range/Units 05:58 POC Glucose (mg/dL) 139 H (70-110) mg/dL Assessment and Plan Assessment: 1. Acute kidney injury secondary to ATN secondary to cardiorenal syndrome. Creatinine peaked at 1.9 at this admission and is 1.7 today. Right-sided hydronephrosis noted on kidney ultrasound. UA shows 1+ protein and no blood. Creatinine as low as 1.23 dated 08/10/2023. Urine retention noted and Montalvo catheter was placed. No plans for intervention from the urology standpoint given that serum creatinine had improved to 1.2 from 7.4 last admission in spite of right hydronephrosis. 2. Acute on chronic diastolic CHF. 3. Volume overload with scrotal edema. 4. Diabetes mellitus. 5. Benign hypertension. 6. Anemia. No significant iron deficiency noted. EGD done this admission showed esophagitis and Otoole's esophagus no active bleeding. Plan: Continue with IV Lasix Continue with Montalvo catheter Check labs today
[2023-08-29 11:42] LABS: Glucose,Whole Blood 157 mg/dL (70-110)
[2023-08-29 13:26] LABS: African American GFR (CKD) 40 (>60 ml/min/1.73 sqM); Anion Gap 17 mmol/L; Blood Urea Nitrogen 27 mg/dL (9-20); Calcium 7.7 mg/dL (8.4-10.2); Carbon Dioxide 19 mmol/L (22-30); Chloride 96 mmol/L (98-107); Glucose 143 mg/dL (74-99); Non-African American GFR(CKD) 35 (>60 ml/min/1.73 sqM); Potassium 3.6 mmol/L (3.5-5.1); Sodium 132 mmol/L (137-145)
[2023-08-29 15:40] VITALS: BMI 30.2
[2023-08-29 16:41] LABS: Glucose,Whole Blood 172 mg/dL (70-110)
[2023-08-29] MEDS: HYDROcodone/APAP 7.5-325MG 1 EACH TAB PO PRN (16:52)
--- NOTE | 2023-08-29 19:24 | P.PN ---
Subjective Progress Note Date: 08/29/23 Principal diagnosis: DVT, CHF At today's visit patient is resting comfortably in bedside chair. Patient is reporting persisting left sided neck pain, norco 5mg not controlling pain well. He is tolerating chopped diet and fluids, but complaining of discomfort with swallowing. Barium swallow study revealed no aspiration Objective - Vital Signs Vital signs: Vital Signs Temp 98.8 F 08/29/23 16:06 Pulse 75 08/29/23 16:06 Resp 17 08/29/23 16:06 BP 134/62 08/29/23 16:06 Pulse Ox 94 L 08/29/23 16:06 FiO2 Intake & Output 08/29/23 08/29/23 08/30/23 06:59 18:59 06:59 Intake Total 20 360 Output Total 1225 1400 Balance -1205 -1040 Weight 90.1 kg 90.1 kg Intake: IV 20 Invasive Line 3 20 Oral 360 Output: Urine 1225 1400 Other: Voiding Method Indwelling Catheter Indwelling Catheter - Constitutional General appearance: Present: no acute distress - EENT Eyes: Present: anicteric sclerae, EOMI ENT: Present: hearing grossly normal - Respiratory Details: breathing is even and unlabored - Cardiovascular Details: skin warm and dry - Musculoskeletal Musculoskeletal: Present: generalized weakness - Psychiatric Psychiatric: Present: A&O x's 3 - Labs CBC & Chem 7: 08/26/23 08:56 08/29/23 12:40 Labs: Abnormal Lab Results - Last 24 Hours (Table) 08/28/23 08/29/23 08/29/23 Range/Units 20:05 05:58 11:41 Sodium (137-145) mmol/L Chloride (98-107) mmol/L Carbon Dioxide (22-30) mmol/L BUN (9-20) mg/dL Creatinine (0.66-1.25) mg/dL Glucose (74-99) mg/dL POC Glucose (mg/dL) 208 H 139 H 157 H (70-110) mg/dL Calcium (8.4-10.2) mg/dL 08/29/23 08/29/23 Range/Units 12:40 16:40 Sodium 132 L (137-145) mmol/L Chloride 96 L (98-107) mmol/L Carbon Dioxide 19 L (22-30) mmol/L BUN 27 H (9-20) mg/dL Creatinine 1.91 H (0.66-1.25) mg/dL Glucose 143 H (74-99) mg/dL POC Glucose (mg/dL) 172 H (70-110) mg/dL Calcium 7.7 L (8.4-10.2) mg/dL Assessment and Plan (1) New onset of congestive heart failure Current Visit: Yes Status: Acute Priority: High Code(s): I50.9 - HEART FAILURE, UNSPECIFIED SNOMED Code(s): 04005409 (2) Thrombosis of left internal jugular vein Current Visit: Yes Status: Acute Priority: High Code(s): I82.C12 - ACUTE EMBOLISM AND THROMBOSIS OF LEFT INTERNAL JUGULAR VEIN SNOMED Code(s): 603139939 (3) Metastatic urothelial carcinoma Current Visit: Yes Status: Acute Priority: High Code(s): C79.10 - SECONDARY MALIGNANT NEOPLASM OF UNSPECIFIED URINARY ORGANS SNOMED Code(s): 73680039 Plan: Metastatic urothelial carcinoma: -Full history as stated in HPI -Completed treatment with concurrent chemo/RT in 06/2020. Was following up for observation in clinic through 11/2021 with no evidence of recurrence. Stopped f/u with urology in February 2022 due to insurance reasons, and has not had f/u since -Progressing left neck mass. Biopsy of the lt neck mass revealed metastatic non- small cell carcinoma consistent with metastatic high-grade urothelial carcinoma. -Reporting increasing left sided neck pain and odynophagia.Barium swallow study negative for aspiration. Clyo increased, IVP morphine added for breakthrough pain, will continue to monitor pain control -Rad onc consulted for further evaluation of neck mass. Spoke with Dr. Juarez regarding case. Offered palliative RT to left neck mass, franc pt is worried about laying flat for treatment. Plan to reevaluate once patient would be able to lay flat and tolerate treatment -Discussed with patient that his current PS is poor, and that he would not be a great candidate for systemic treatment at this time, and that he would likely benefit for inpt rehab. Pt and were agreeable. Treatment and PET CT would be on hold until discharged from rehab. Will continue to follow plan of care and will schedule PET CT and clinic f/u pending course of hospitalization/rehab. N/V: -Reglan added for additional anti-emetic support -Abdominal x-ray revealed overall nonobstructive bowel gas pattern. Patient was experiencing coffee ground emesis, sx now resolved. GI consulted, s/p EGD, revealing esophagitis and Otoole's esophagus, no evidence of upper GI bleed. Anticoagulation has been resumed DVT: -Doppler of left upper extremity was positive for nonocclusive deep vein thrombosis within the internal jugular vein and superficial thrombus within the left cephalic vein. Dopplers of bilateral lower extremities were negative for DVT. -Upon review of records patient was started on heparin and transitioned to Eliquis during last admission due to new onset A-fib with RVR, and has continued on Eliquis since discharge. LUE edema has been persisting since last admission with no changes in arm swelling, however, there were no dopplers obtained at that time. -At this time patient can continue on Eliquis, as it is likely thrombus was already present when started on anticoagulation. If additional thrombus presents while anticoagulated with Eliquis will have to switch anticoagulant CHF: -Continues on lasix -IM and cardiology following
[2023-08-29 20:20] LABS: Glucose,Whole Blood 234 mg/dL (70-110)
--- NOTE | 2023-08-29 20:21 | P.PN ---
Progress Note - Text Progress Note Date: 08/29/23 Pleasant 72-year-old patient who follows with Dr. Johnny Rubio./Mid-level provider-Kareen. Chronic stable medical conditions include CAD with stent in 2018, diabetes, hypertension, hyperlipidemia, osteoporosis, bladder cancer with treatment in remission and cystoscopy 2020, patient had right hip surgery in October of this year now does use a walker when he goes outside. Otherwise a cane. Patient was recently discharged from the hospital 08/04-08/14 left sided neck mass concerning for malignancy Presents today because of increasing swelling of arms and legs. Also patient complaining of from little shortness of breath occasional coughing but no chest pain He says he cannot go for his urine but he denies any GI problems No headache dizziness weakness numbness. he denies smoking, Alcohol or illicit tracts, He was not discharged on Lasix Vitals stable Labs are showing mild leukocytosis of 11.7, last time he was discharged his WBCs were 18.2. Hemoglobin 11.1, rest of CBC, INR is unremarkable. Creatinine 1.3 which is at baseline, potassium 5.4, magnesium 1.2. TSH is high at 18 and free T4 is low at 0.65 EKG showing normal sinus rhythm at [address]-T changes. Mild ST depression on the sixth Chest x-ray: Cardiomegaly with pulmonary vascular congestion and right pleural effusion suggestive of CHF. Venous Doppler: Superficial thrombus seen within the left cephalic vein. Nonocclusive deep venous thrombosis seen in the internal jugular vein 08/18/2023 Patient sitting up in bed, states that his breathing is slightly better, he can lie flat as he describes. Patient is not working at baseline, confirmed. The at bedside. History the have significant swelling of arms and legs. Patient was started on IV Lasix 40 mg twice daily and he continued on home dose of liquids 5 mg. Also patient is started on small dose of levothyroxine 25 g. 08/19/2023 Patient's no breathing difficulties, history and embedded and not walking, his main problem is the swelling. Patient currently on IV Lasix twice daily, he says he did not urinate and much. We'll discuss with the staff to check bladder scan. He was started on levothyroxine 25 g. Oncology team on the case, continue with Eliquis for his upper extremity DVT. Also present college patient will require PET CT as an outpatient and then follow up with . also 08/20/2023: Up in a recliner. Bouts of coughing. Clear sputum. No fever no chills. Breathing better. Eating well. at the bedside. We will apply sleeve to the left upper extremity August 21: Reclining in bed. Coughing and sputum production much better. On DuoNeb and Pulmicort started yesterday. August 22: Patient vomited overnight a few times. Some coffee-ground emesis this morning. Put on clear liquids. GI consulted. Protonix added. August 23: Patient should have 1 more episode of coffee-ground emesis yesterday evening. Clear liquids. Nothing by mouth after midnight. Remains off eliquis. Plan for EGD tomorrow by GI. 08/25/2023 Patient evaluated today resting in bed. He states he feels improve as compared to yesterday. Underwent EGD which reveals Otoole's esophagus and esophagitis. Patient on protonix BID. Hemoglobin stable 9.3 today. No active bleeding noted. Cleared by GI to resume eliquis today. Renal function worsening with IV fluids currently up to 1.98. Noted that lasix was being held and patient was being hydrated. 08/26/2023 Patient evaluated resting in bed. Has been resumed on eliquis cleared by GI. Creatinine today slightly improved 1.88, IV fluids were stopped. Renal ultrasound does show moderate right sided hydronephrosis he has had 1180 mls out in the last 24 hours. Bladder scan is showing about 180-200 mls left in bladder. Recommended to start the patient on flomax. He reports difficulty swallowing today, does have left neck mass which is quite swollen and firm. He also has white coating on tongue will be started on IV diflucan. 08/27/2023 Patient resting in bed. PT/OT on consultation needs encouragement to be up out of bed. Urology recommending to monitor bladder scan PVR, and patient has been started on flomax. Speech therapy evaluation in to see patient had concerns regarding swallowing and pt underwent MBS and patient will continue on dysphagia 2 ground diet with thin liquids. Patient needs to sit upright for all meals. Discussed with oncology patients main complaint is the swelling and pain from the left neck mass. 08/28/2023: I resumed care of the patient today. Propped up in bed. Eating. Some pain in the left fascial tumor. Patient's had a Montalvo catheter for 2 days. Also being followed by nephrology and urology. Latter no current intervention. On IV Lasix. Patient had undergone EGD by Dr. Thuan Mart on August 24. Showed esophagitis and Otoole's esophagus. August 29: Feels a bit better. Eating fair. Remains on IV Lasix. Followed by nephrology. Spoke to the patient and at the bedside. Active Medications Acetaminophen (Acetaminophen Tab 325 Mg Tab) 650 mg PO Q6HR PRN PRN Reason: Mild Pain or Fever > 100.5 Hydrocodone Bitart/Acetaminophen (Hydrocodone/Apap 7.5-325mg 1 Each Tab) 1 each PO Q4HR PRN PRN Reason: Pain Last Admin: 08/29/23 16:52 Dose: 1 each Albuterol Sulfate (Albuterol Nebulized 2.5 Mg/3 Ml) 2.5 mg INHALATION RT-Q4H PRN PRN Reason: Shortness Of Breath Last Admin: 08/19/23 13:37 Dose: 2.5 mg Albuterol/Ipratropium (Ipratropium-Albuterol 3 Ml Neb) 3 ml INHALATION RT-QID [facility] Last Admin: 08/29/23 15:18 Dose: 3 ml Amlodipine Besylate (Amlodipine 10 Mg Tab) 10 mg PO DAILY [facility] Last Admin: 08/29/23 09:25 Dose: 10 mg Apixaban (Apixaban 5 Mg Tab) 5 mg PO BID [facility]; Protocol Last Admin: 08/29/23 09:25 Dose: 5 mg Atorvastatin Calcium (Atorvastatin 80 Mg Tab) 80 mg PO DAILY [facility] Last Admin: 08/29/23 09:25 Dose: 80 mg Benzonatate (Benzonatate 100 Mg Cap) 100 mg PO TID PRN PRN Reason: Cough Last Admin: 08/19/23 13:22 Dose: 100 mg Budesonide (Budesonide 1 Mg/2 Ml Nebu) 1 mg INHALATION RT-BID [facility] Last Admin: 08/29/23 08:37 Dose: 1 mg Calcium Carbonate (Calcium Carb-Vit D 500 Mg-5 Mcg Tab) 1 each PO DAILY [facility] Last Admin: 08/29/23 09:25 Dose: 1 each Docusate Sodium (Docusate 100 Mg Cap) 100 mg PO BID [facility] Last Admin: 08/29/23 09:25 Dose: 100 mg Fluticasone Propionate (Fluticasone 50mcg/[place] Nasal 16gm) 2 spray EA NOSTRIL DAILY PRN PRN Reason: Allergy Symptoms Furosemide (Furosemide 10 Mg/Ml 4 Ml Vial) 40 mg IV Q12HR [facility] Last Admin: 08/29/23 09:25 Dose: 40 mg Guaifenesin (Guaifenesin Syrup 100mg/5ml 200 Mg/10 Ml Cup) 200 mg PO Q6HR PRN PRN Reason: Cough Last Admin: 08/25/23 13:13 Dose: 200 mg Hydralazine HCl (Hydralazine Hcl 25 Mg Tab) 75 mg PO QID [facility] Last Admin: 08/29/23 16:51 Dose: 75 mg Fluconazole/Sodium Chloride (100 mg/ IV Solution) 50 mls @ 50 mls/hr IVPB DAILY [facility]; Protocol Last Admin: 08/29/23 09:42 Dose: 50 mls/hr Insulin Aspart (Insulin Aspart (Novolog) 100 Unit/Ml Vial) 0 unit SQ ACHS [facility]; Protocol Last Admin: 08/29/23 16:52 Dose: 2 unit Insulin Detemir (Insulin Detemir (Levemir) 100 Unit/Ml Syr) 10 unit SQ HS [facility] Last Admin: 08/28/23 22:11 Dose: 10 unit Levothyroxine Sodium (Levothyroxine 25 Mcg Tab) 25 mcg PO DAILY@0630 [facility] Last Admin: 08/29/23 06:46 Dose: 25 mcg Loratadine (Loratadine 10 Mg Tab) 5 mg PO DAILY [facility] Last Admin: 08/29/23 09:25 Dose: 5 mg Magnesium Oxide (Magnesium Oxide 400 Mg Tab) 400 mg PO DAILY [facility] Last Admin: 08/29/23 09:25 Dose: 400 mg Metoclopramide HCl (Metoclopramide 5 Mg/Ml 2 Ml Vial) 10 mg IVP Q6HR PRN PRN Reason: Nausea And Vomiting Last Admin: 08/22/23 21:25 Dose: 10 mg Metoprolol Tartrate (Metoprolol Tartrate 50 Mg Tab) 50 mg PO BID [facility] Last Admin: 08/29/23 09:25 Dose: 50 mg Miscellaneous Information (Magnesium Replacement Protocol 1 Each Misc) 1 each MISCELLANE DAILY PRN; Protocol PRN Reason: Per Protocol Morphine Sulfate (Morphine Sulfate 4 Mg/Ml Syringe) 4 mg IVP Q4HR PRN PRN Reason: Pain Scale 6 to 10 Naloxone HCl (Naloxone 0.4 Mg/Ml 1 Ml Vial) 0.2 mg IV Q2M PRN PRN Reason: Opioid Reversal Non-Formulary Medication (Liraglutide [Victoza 3-Sam]) 1.8 mg SQ DAILY [facility] Last Admin: 08/29/23 09:26 Dose: Not Given Pantoprazole Sodium (Pantoprazole 40 Mg Tablet) 40 mg PO AC-BID [facility] Last Admin: 08/29/23 16:51 Dose: 40 mg Tamsulosin HCl (Tamsulosin 0.4 Mg Cap.Er.24h) 0.4 mg PO DAILY [facility] Last Admin: 08/29/23 09:25 Dose: 0.4 mg Social history: Used to work in a [employer]. . 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 Patient Smoked for 50 Years Stopped in 2019. Also Is Drinking Excessive Alcohol up to 2019. Physical examination: VITAL SIGNS: 98.1, 78, 17, 126/54, 95% on 2 L GENERAL: Propped up in bed, appears comfortable EYES: Pupils equal. Conjunctiva normal. HEENT: External appearance of nose and ears normal, oral cavity grossly normal. NECK: JVD not raised; masses not palpable. Hard mass of the left upper neck going to the mandible. Hard. HEART: Heart sounds irregular; no edema. LUNGS: Respiratory rate normal; decreased breath sounds. ABDOMEN: Soft, nontender, liver spleen not palpable, no masses palpable. PSYCH: Alert and oriented x3; mood and affect normal EXTREMITY: Left upper extremity swelling compared to the right. In a sleeve MUSCULOSKELETAL:No Clubbing/cyanosis;muscles-grossly intact. OA INVESTIGATIONS, reviewed in the clinical context: August 29: Potassium 3.6 BUN 27 creatinine 1.91 EGD: Legionnaire erosions distal esophagus LA grade B reflux esophagitis.. Barium swallow with redo: Transient penetration with thin liquids. No aspiration. August 27: Potassium 3.9 BUN 25 creatinine 1.75 B12 759 folate 8.5, copper 882 August 23: White count 8.8 hemoglobin 8.9 potassium 4.2 creatinine 1.67 August 21: Sodium 134 potassium 4.5 BUN 31 creatinine 1.37 August 20: White count 9.5 hemoglobin 9.6 (219 potassium 5.4 BUN 34 creatinine 1.50 Ultrasound Doppler of the left upper extremity: Non occlusive DVT in the eye JVD. Superficial thrombosis within the left cephalic vein. . Recent investigations: 2-D echocardiogram: Preserved LV function. Mild inferior septal hypokinesis. CT soft tissue neck without contrast: Enlargement of the left parotid gland with surrounding the inflammatory attenuation as well as skeletal thinking. Also inflammatory thickening of the left sternocleidomastoid musculature. Surrounding reactive adenopathy. No obstructing Loss. CT chest abdomen pelvis: Small bowel guarded to 3 cm. Mild right-sided hydronephrosis. Gallstones Chest x-ray film personally reviewed by me-hyperinflation. Some pulmonary artery prominence EKG tracing personally reviewed by me-possible ectopic atrial rhythm. Ultrasound kidney: Mild right-sided hydronephrosis. Assessment: -Acute congestive heart exacerbation from diastolic dysfunction 50-55%.: Lasix 40 mg IV every 12 Followed by cardiology and nephrology -Acute kidney injury secondary to ATN secondary to cardiorenal syndrome. Right- sided hydronephrosis. Creatinine peaked at 1.9. Montalvo catheter. Follow with nephrology -Recurrent coffee-ground emesis., EGD: Esophagitis and Otoole's esophagus PPI Dr. Thuan Mart -Acute COPD exacerbation and a prior smoker: Better DuoNeb 4 times a day. Nebulized Pulmicort 1 mg twice a day. Paroxysmal atrial fibrillation - sinus rhythm Lopressor 50 mg twice a day Eliquis was held for coffee-ground emesis. Resumed -Essential hypertension Lopressor 50 mg twice a day. Amlodipine 10 mg a day Hydralazine 75 mg 4 times a day -Mild hydronephrosis For further workup outpatient with urology -Metastatic urothelial carcinoma: -Completed treatment with concurrent chemo/RT in 06/2020. Was following up for observation in clinic through 11/2021 with no evidence of recurrence. Stopped f/u with urology in February 2022 due to insurance reasons, and has not had f/u since -Progressing left neck mass. Biopsy of the lt neck mass revealed metastatic non- small cell carcinoma consistent with metastatic high-grade urothelial carcinoma. Results were discussed with patient and spouse -Will reschedule PET CT, and pending hospitalization may have to reschedule clinic f/u with Dr. Alsawah -Hyperkalemia from underlying CK D: Improved Kayexalate -Non occlusive DVT in the left internal jugular vein. Superficial thrombosis within the left cephalic vein. Eliquis Sleeve left upper extremity Seen by Dr. Montalvo from vascular. - metabolic acidosis from renal failure: Sodium bicarbonate -Hypocalcemia Os-Car vitamin D -Left upper neck mass. Metastatic non-small cell carcinoma consistent with metastatic high-grade urothelial carcinoma Follow-up with Dr. Cardoza from oncology -CAD with stent 2019 Aspirin. Coreg -Hyperlipidemia Lipitor -Diabetes mellitus type 2 on oral hypoglycemic Follow Accu-Cheks and sliding scale Victoza. -Full code. Tolerating diet. IV Lasix. Discussed with patient and . Nephrology following.
[2023-08-29] MEDS: INSULIN DETEMIR (LEVEMIR) 100 UNIT/ML SYR SQ SCH (21:04)
[2023-08-30] MEDS: HYDROcodone/APAP 7.5-325MG 1 EACH TAB PO PRN ×3 (03:53→21:22)
[2023-08-30 06:06] LABS: Glucose,Whole Blood 153 mg/dL (70-110)
[2023-08-30] MEDS: INSULIN ASPART (NovoLOG) 100 UNIT/ML VIAL SQ SCH ×4 (06:25→20:59)
[2023-08-30] MEDS: PANTOPRAZOLE 40 MG TABLET PO SCH ×2 (06:30→16:54)
[2023-08-30] MEDS: LEVOTHYROXINE 25 MCG TAB PO SCH (06:30)
[2023-08-30] MEDS: BUDESONIDE 1 MG/2 ML NEBU INHALATION SCH ×2 (08:23→21:02)
[2023-08-30] MEDS: IPRATROPIUM-ALBUTEROL 3 ML NEB INHALATION SCH ×4 (08:23→21:02)
[2023-08-30 08:33] LABS: African American GFR (CKD) 42 (>60 ml/min/1.73 sqM); Anion Gap 7 mmol/L; Blood Urea Nitrogen 29 mg/dL (9-20); Calcium 7.5 mg/dL (8.4-10.2); Carbon Dioxide 25 mmol/L (22-30); Chloride 98 mmol/L (98-107); Glucose 129 mg/dL (74-99); Non-African American GFR(CKD) 37 (>60 ml/min/1.73 sqM); Potassium 3.6 mmol/L (3.5-5.1); Sodium 130 mmol/L (137-145)
[2023-08-30] MEDS: FLUCONAZOLE IN NACL,ISO-OSM 100 MG in SALINE 1 50ML.BAG IVPB SCH (08:50)
[2023-08-30] MEDS: APIXABAN 5 MG TAB PO SCH ×2 (08:53→20:58)
[2023-08-30] MEDS: amLODIPine 10 MG TAB PO SCH (08:53)
[2023-08-30] MEDS: DOCUSATE 100 MG CAP PO SCH ×2 (08:53→20:58)
[2023-08-30] MEDS: ATORVASTATIN 80 MG TAB PO SCH (08:53)
[2023-08-30] MEDS: hydrALAZINE HCL 25 MG TAB PO SCH ×4 (08:53→21:22)
[2023-08-30] MEDS: MAGNESIUM OXIDE 400 MG TAB PO SCH (08:53)
[2023-08-30] MEDS: METOPROLOL TARTRATE 50 MG TAB PO SCH ×2 (08:53→20:58)
[2023-08-30] MEDS: FUROSEMIDE 10 MG/ML 4 ML VIAL IV SCH ×2 (08:53→20:58)
[2023-08-30] MEDS: CALCIUM CARB-VIT D 500 MG-5 MCG TAB PO SCH (08:53)
[2023-08-30] MEDS: TAMSULOSIN 0.4 MG CAP.ER.24H PO SCH (08:53)
[2023-08-30] MEDS: LORATADINE 10 MG TAB PO SCH (08:53)
[2023-08-30] MEDS: NON FORMULARY DRUG (Liraglutide [Victoza 3-Pak] 0.6 MG/0.1 ML Ml) SQ SCH (11:06)
[2023-08-30 11:32] LABS: Glucose,Whole Blood 206 mg/dL (70-110)
--- NOTE | 2023-08-30 13:10 | P.PN ---
Subjective Patient is seen for follow-up for acute kidney injury. History of acute kidney injury in July 2023 which resolved with creatinine decreasing from 7.4 to 1.2 upon discharge. Patient also has a history of right hydronephrosis with history of metastatic urothelial carcinoma being followed by urology and oncology. Serum creatinine improved to 1.7 from 1.98 at peak this admission. Currently maintained on IV Lasix. 24 hour urine output at 2.3 L. No significant complaints today. Objective - Vital Signs Vital signs: Vital Signs Temp 96.6 F L 08/30/23 12:46 Pulse 71 08/30/23 12:46 Resp 18 08/30/23 12:46 BP 126/56 08/30/23 12:46 Pulse Ox 93 L 08/30/23 12:46 FiO2 Intake & Output 08/29/23 08/30/23 08/30/23 18:59 06:59 18:59 Intake Total 360 Output Total 1400 900 Balance -1040 -900 Weight 90.1 kg 87.5 kg Intake: Oral 360 Output: Urine 1400 900 Other: Voiding Method Indwelling Catheter Indwelling Catheter Indwelling Catheter - Exam On examination patient is comfortable awake no acute distress Examination of the heart S1 and S2 Examination of the lungs bilateral breath sounds are heard Abdomen is soft nontender Lower extremities show 1+ edema bilaterally [employer] exam grossly intact - Labs CBC & Chem 7: 08/26/23 08:56 08/30/23 07:48 Labs: Abnormal Lab Results - Last 24 Hours (Table) 08/29/23 08/29/23 08/29/23 Range/Units 12:40 16:40 20:18 Sodium 132 L (137-145) mmol/L Chloride 96 L (98-107) mmol/L Carbon Dioxide 19 L (22-30) mmol/L BUN 27 H (9-20) mg/dL Creatinine 1.91 H (0.66-1.25) mg/dL Glucose 143 H (74-99) mg/dL POC Glucose (mg/dL) 172 H 234 H (70-110) mg/dL Calcium 7.7 L (8.4-10.2) mg/dL 08/30/23 08/30/23 08/30/23 Range/Units 06:03 07:48 11:31 Sodium 130 L (137-145) mmol/L Chloride (98-107) mmol/L Carbon Dioxide (22-30) mmol/L BUN 29 H (9-20) mg/dL Creatinine 1.82 H (0.66-1.25) mg/dL Glucose 129 H (74-99) mg/dL POC Glucose (mg/dL) 153 H 206 H (70-110) mg/dL Calcium 7.5 L (8.4-10.2) mg/dL Assessment and Plan Assessment: 1. Acute kidney injury secondary to ATN secondary to cardiorenal syndrome. Creatinine staying at about 1.9-1.7. Right-sided hydronephrosis noted on kidney ultrasound. UA shows 1+ protein and no blood. Creatinine as low as 1.23 dated 08/10/2023. Urine retention noted and Montalvo catheter was placed. No plans for intervention from the urology standpoint given that serum creatinine had improved to 1.2 from 7.4 last admission in spite of right hydronephrosis. 2. Acute on chronic diastolic CHF. 3. Volume overload with scrotal edema. 4. Diabetes mellitus. 5. Benign hypertension. 6. Anemia. No significant iron deficiency noted. EGD done this admission showed esophagitis and Otoole's esophagus no active bleeding. Plan: Continue with IV Lasix Continue with Monatlvo catheter
[2023-08-30 16:27] LABS: Glucose,Whole Blood 209 mg/dL (70-110)
--- NOTE | 2023-08-30 17:03 | P.PN ---
Progress Note - Text Progress Note Date: 08/30/23 Pleasant 72-year-old patient who follows with Dr. Johnny Rubio./Mid-level provider-Kareen. Chronic stable medical conditions include CAD with stent in 2018, diabetes, hypertension, hyperlipidemia, osteoporosis, bladder cancer with treatment in remission and cystoscopy 2020, patient had right hip surgery in October of this year now does use a walker when he goes outside. Otherwise a cane. Patient was recently discharged from the hospital 08/04-08/14 left sided neck mass concerning for malignancy Presents today because of increasing swelling of arms and legs. Also patient complaining of from little shortness of breath occasional coughing but no chest pain He says he cannot go for his urine but he denies any GI problems No headache dizziness weakness numbness. he denies smoking, Alcohol or illicit tracts, He was not discharged on Lasix Vitals stable Labs are showing mild leukocytosis of 11.7, last time he was discharged his WBCs were 18.2. Hemoglobin 11.1, rest of CBC, INR is unremarkable. Creatinine 1.3 which is at baseline, potassium 5.4, magnesium 1.2. TSH is high at 18 and free T4 is low at 0.65 EKG showing normal sinus rhythm at [address]-T changes. Mild ST depression on the sixth Chest x-ray: Cardiomegaly with pulmonary vascular congestion and right pleural effusion suggestive of CHF. Venous Doppler: Superficial thrombus seen within the left cephalic vein. Nonocclusive deep venous thrombosis seen in the internal jugular vein 08/18/2023 Patient sitting up in bed, states that his breathing is slightly better, he can lie flat as he describes. Patient is not working at baseline, confirmed. The at bedside. History the have significant swelling of arms and legs. Patient was started on IV Lasix 40 mg twice daily and he continued on home dose of liquids 5 mg. Also patient is started on small dose of levothyroxine 25 g. 08/19/2023 Patient's no breathing difficulties, history and embedded and not walking, his main problem is the swelling. Patient currently on IV Lasix twice daily, he says he did not urinate and much. We'll discuss with the staff to check bladder scan. He was started on levothyroxine 25 g. Oncology team on the case, continue with Eliquis for his upper extremity DVT. Also present college patient will require PET CT as an outpatient and then follow up with . also 08/20/2023: Up in a recliner. Bouts of coughing. Clear sputum. No fever no chills. Breathing better. Eating well. at the bedside. We will apply sleeve to the left upper extremity August 21: Reclining in bed. Coughing and sputum production much better. On DuoNeb and Pulmicort started yesterday. August 22: Patient vomited overnight a few times. Some coffee-ground emesis this morning. Put on clear liquids. GI consulted. Protonix added. August 23: Patient should have 1 more episode of coffee-ground emesis yesterday evening. Clear liquids. Nothing by mouth after midnight. Remains off eliquis. Plan for EGD tomorrow by GI. 08/25/2023 Patient evaluated today resting in bed. He states he feels improve as compared to yesterday. Underwent EGD which reveals Otoole's esophagus and esophagitis. Patient on protonix BID. Hemoglobin stable 9.3 today. No active bleeding noted. Cleared by GI to resume eliquis today. Renal function worsening with IV fluids currently up to 1.98. Noted that lasix was being held and patient was being hydrated. 08/26/2023 Patient evaluated resting in bed. Has been resumed on eliquis cleared by GI. Creatinine today slightly improved 1.88, IV fluids were stopped. Renal ultrasound does show moderate right sided hydronephrosis he has had 1180 mls out in the last 24 hours. Bladder scan is showing about 180-200 mls left in bladder. Recommended to start the patient on flomax. He reports difficulty swallowing today, does have left neck mass which is quite swollen and firm. He also has white coating on tongue will be started on IV diflucan. 08/27/2023 Patient resting in bed. PT/OT on consultation needs encouragement to be up out of bed. Urology recommending to monitor bladder scan PVR, and patient has been started on flomax. Speech therapy evaluation in to see patient had concerns regarding swallowing and pt underwent MBS and patient will continue on dysphagia 2 ground diet with thin liquids. Patient needs to sit upright for all meals. Discussed with oncology patients main complaint is the swelling and pain from the left neck mass. 08/28/2023: I resumed care of the patient today. Propped up in bed. Eating. Some pain in the left fascial tumor. Patient's had a Montalvo catheter for 2 days. Also being followed by nephrology and urology. Latter no current intervention. On IV Lasix. Patient had undergone EGD by Dr. Thuan Mart on August 24. Showed esophagitis and Otoole's esophagus. August 29: Feels a bit better. Eating fair. Remains on IV Lasix. Followed by nephrology. Spoke to the patient and at the bedside. August 30: Continue his IV Lasix. Eating well. Up in a chair. 2 L of oxygen. 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 Active Medications Acetaminophen (Acetaminophen Tab 325 Mg Tab) 650 mg PO Q6HR PRN PRN Reason: Mild Pain or Fever > 100.5 Hydrocodone Bitart/Acetaminophen (Hydrocodone/Apap 7.5-325mg 1 Each Tab) 1 each PO Q4HR PRN PRN Reason: Pain Last Admin: 08/30/23 12:20 Dose: 1 each Albuterol Sulfate (Albuterol Nebulized 2.5 Mg/3 Ml) 2.5 mg INHALATION RT-Q4H PRN PRN Reason: Shortness Of Breath Last Admin: 08/19/23 13:37 Dose: 2.5 mg Albuterol/Ipratropium (Ipratropium-Albuterol 3 Ml Neb) 3 ml INHALATION RT-QID [facility] Last Admin: 08/30/23 15:18 Dose: 3 ml Amlodipine Besylate (Amlodipine 10 Mg Tab) 10 mg PO DAILY [facility] Last Admin: 08/30/23 08:53 Dose: 10 mg Apixaban (Apixaban 5 Mg Tab) 5 mg PO BID [facility]; Protocol Last Admin: 08/30/23 08:53 Dose: 5 mg Atorvastatin Calcium (Atorvastatin 80 Mg Tab) 80 mg PO DAILY [facility] Last Admin: 08/30/23 08:53 Dose: 80 mg Benzonatate (Benzonatate 100 Mg Cap) 100 mg PO TID PRN PRN Reason: Cough Last Admin: 08/19/23 13:22 Dose: 100 mg Budesonide (Budesonide 1 Mg/2 Ml Nebu) 1 mg INHALATION RT-BID [facility] Last Admin: 08/30/23 08:23 Dose: 1 mg Calcium Carbonate (Calcium Carb-Vit D 500 Mg-5 Mcg Tab) 1 each PO DAILY [facility] Last Admin: 08/30/23 08:53 Dose: 1 each Docusate Sodium (Docusate 100 Mg Cap) 100 mg PO BID [facility] Last Admin: 08/30/23 08:53 Dose: 100 mg Fluticasone Propionate (Fluticasone 50mcg/[place] Nasal 16gm) 2 spray EA NOSTRIL DAILY PRN PRN Reason: Allergy Symptoms Furosemide (Furosemide 10 Mg/Ml 4 Ml Vial) 40 mg IV Q12HR [facility] Last Admin: 08/30/23 08:53 Dose: 40 mg Guaifenesin (Guaifenesin Syrup 100mg/5ml 200 Mg/10 Ml Cup) 200 mg PO Q6HR PRN PRN Reason: Cough Last Admin: 08/25/23 13:13 Dose: 200 mg Hydralazine HCl (Hydralazine Hcl 25 Mg Tab) 75 mg PO QID [facility] Last Admin: 08/30/23 12:21 Dose: 75 mg Fluconazole/Sodium Chloride (100 mg/ IV Solution) 50 mls @ 50 mls/hr IVPB DAILY [facility]; Protocol Last Admin: 08/30/23 08:50 Dose: 50 mls/hr Insulin Aspart (Insulin Aspart (Novolog) 100 Unit/Ml Vial) 0 unit SQ ACHS [facility]; Protocol Last Admin: 08/30/23 12:21 Dose: 4 unit Insulin Detemir (Insulin Detemir (Levemir) 100 Unit/Ml Syr) 10 unit SQ HS [facility] Last Admin: 08/29/23 21:04 Dose: 10 unit Levothyroxine Sodium (Levothyroxine 25 Mcg Tab) 25 mcg PO DAILY@0630 [facility] Last Admin: 08/30/23 06:30 Dose: 25 mcg Loratadine (Loratadine 10 Mg Tab) 5 mg PO DAILY [facility] Last Admin: 08/30/23 08:53 Dose: 5 mg Magnesium Oxide (Magnesium Oxide 400 Mg Tab) 400 mg PO DAILY [facility] Last Admin: 08/30/23 08:53 Dose: 400 mg Metoclopramide HCl (Metoclopramide 5 Mg/Ml 2 Ml Vial) 10 mg IVP Q6HR PRN PRN Reason: Nausea And Vomiting Last Admin: 08/22/23 21:25 Dose: 10 mg Metoprolol Tartrate (Metoprolol Tartrate 50 Mg Tab) 50 mg PO BID [facility] Last Admin: 08/30/23 08:53 Dose: 50 mg Miscellaneous Information (Magnesium Replacement Protocol 1 Each Misc) 1 each MISCELLANE DAILY PRN; Protocol PRN Reason: Per Protocol Naloxone HCl (Naloxone 0.4 Mg/Ml 1 Ml Vial) 0.2 mg IV Q2M PRN PRN Reason: Opioid Reversal Non-Formulary Medication (Liraglutide [Victoza 3-Sam]) 1.8 mg SQ DAILY [facility] Last Admin: 08/30/23 11:06 Dose: Not Given Pantoprazole Sodium (Pantoprazole 40 Mg Tablet) 40 mg PO AC-BID [facility] Last Admin: 08/30/23 06:30 Dose: 40 mg Tamsulosin HCl (Tamsulosin 0.4 Mg Cap.Er.24h) 0.4 mg PO DAILY [facility] Last Admin: 08/30/23 08:53 Dose: 0.4 mg Social history: Used to work in a [employer]. . 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 Patient Smoked for 50 Years Stopped in 2019. Also Is Drinking Excessive Alcohol up to 2019. Physical examination: VITAL SIGNS: 96.6, 71, 18, 126/56, 93% on 2 L GENERAL: Propped up in chair, comfortable EYES: Pupils equal. Conjunctiva normal. HEENT: External appearance of nose and ears normal, oral cavity grossly normal. NECK: JVD not raised; masses not palpable. Hard mass of the left upper neck going to the mandible. Hard. HEART: Heart sounds irregular; no edema. LUNGS: Respiratory rate normal; decreased breath sounds. ABDOMEN: Soft, nontender, liver spleen not palpable, no masses palpable. PSYCH: Alert and oriented x3; mood and affect normal EXTREMITY: Left upper extremity swelling compared to the right. In a sleeve MUSCULOSKELETAL:No Clubbing/cyanosis;muscles-grossly intact. OA INVESTIGATIONS, reviewed in the clinical context: August 30: Potassium 3.6 BUN 29 creatinine 1.8 to August 29: Potassium 3.6 BUN 27 creatinine 1.91 EGD: Legionnaire erosions distal esophagus LA grade B reflux esophagitis.. Barium swallow with redo: Transient penetration with thin liquids. No aspiration. August 27: Potassium 3.9 BUN 25 creatinine 1.75 B12 759 folate 8.5, copper 882 August 23: White count 8.8 hemoglobin 8.9 potassium 4.2 creatinine 1.67 August 21: Sodium 134 potassium 4.5 BUN 31 creatinine 1.37 August 20: White count 9.5 hemoglobin 9.6 (219 potassium 5.4 BUN 34 creatinine 1.50 Ultrasound Doppler of the left upper extremity: Non occlusive DVT in the eye JVD. Superficial thrombosis within the left cephalic vein. . Recent investigations: 2-D echocardiogram: Preserved LV function. Mild inferior septal hypokinesis. CT soft tissue neck without contrast: Enlargement of the left parotid gland with surrounding the inflammatory attenuation as well as skeletal thinking. Also inflammatory thickening of the left sternocleidomastoid musculature. Surrounding reactive adenopathy. No obstructing Loss. CT chest abdomen pelvis: Small bowel guarded to 3 cm. Mild right-sided hydronephrosis. Gallstones Chest x-ray film personally reviewed by me-hyperinflation. Some pulmonary artery prominence EKG tracing personally reviewed by me-possible ectopic atrial rhythm. Ultrasound kidney: Mild right-sided hydronephrosis. Assessment: -Acute congestive heart exacerbation from diastolic dysfunction 50-55%.: Lasix 40 mg IV every 12 Followed by cardiology and nephrology Add fluid restriction -Acute kidney injury secondary to ATN secondary to cardiorenal syndrome. Right- sided hydronephrosis. Creatinine peaked at 1.9. Montalvo catheter. Follow with nephrology -Recurrent coffee-ground emesis., EGD: Esophagitis and Otoole's esophagus PPI Dr. Thuan Mart -Acute COPD exacerbation and a prior smoker: Better DuoNeb 4 times a day. Nebulized Pulmicort 1 mg twice a day. Paroxysmal atrial fibrillation - sinus rhythm Lopressor 50 mg twice a day Eliquis was held for coffee-ground emesis. Resumed -Essential hypertension Lopressor 50 mg twice a day. Amlodipine 10 mg a day Hydralazine 75 mg 4 times a day -Mild hydronephrosis For further workup outpatient with urology -Metastatic urothelial carcinoma: -Completed treatment with concurrent chemo/RT in 06/2020. Was following up for observation in clinic through 11/2021 with no evidence of recurrence. Stopped f/u with urology in February 2022 due to insurance reasons, and has not had f/u since -Progressing left neck mass. Biopsy of the lt neck mass revealed metastatic non- small cell carcinoma consistent with metastatic high-grade urothelial carcinoma. Results were discussed with patient and spouse -Will reschedule PET CT, and pending hospitalization may have to reschedule clinic f/u with Dr. Banda -Hyperkalemia from underlying CK D: Improved Kayexalate -Non occlusive DVT in the left internal jugular vein. Superficial thrombosis within the left cephalic vein. Eliquis Sleeve left upper extremity Seen by Dr. Montalvo from vascular. - metabolic acidosis from renal failure: Sodium bicarbonate -Hypocalcemia Os-Car vitamin D -Left upper neck mass. Metastatic non-small cell carcinoma consistent with metastatic high-grade urothelial carcinoma Follow-up with Dr. Cardoza from oncology -CAD with stent 2019 Aspirin. Coreg -Hyperlipidemia Lipitor -Diabetes mellitus type 2 on oral hypoglycemic Follow Accu-Cheks and sliding scale Victoza. -Full code. Add fluid restriction. IV Lasix. Better. Discussed with patient and .
[2023-08-30 19:44] LABS: Glucose,Whole Blood 264 mg/dL (70-110)
[2023-08-30] MEDS: INSULIN DETEMIR (LEVEMIR) 100 UNIT/ML SYR SQ SCH (20:58)
[2023-08-30 23:19] VITALS: RESP 18
[2023-08-31 06:03] LABS: Glucose,Whole Blood 199 mg/dL (70-110)
[2023-08-31] MEDS: LEVOTHYROXINE 25 MCG TAB PO SCH (06:19)
[2023-08-31] MEDS: PANTOPRAZOLE 40 MG TABLET PO SCH (06:19)
[2023-08-31] MEDS: INSULIN ASPART (NovoLOG) 100 UNIT/ML VIAL SQ SCH ×2 (06:19→12:50)
[2023-08-31] MEDS: HYDROcodone/APAP 7.5-325MG 1 EACH TAB PO PRN ×2 (06:24→13:46)
[2023-08-31] MEDS: BUDESONIDE 1 MG/2 ML NEBU INHALATION SCH (08:59)
[2023-08-31] MEDS: IPRATROPIUM-ALBUTEROL 3 ML NEB INHALATION SCH ×3 (08:59→15:45)
[2023-08-31] MEDS: LORATADINE 10 MG TAB PO SCH (09:15)
[2023-08-31] MEDS: MAGNESIUM OXIDE 400 MG TAB PO SCH (09:15)
[2023-08-31] MEDS: APIXABAN 5 MG TAB PO SCH (09:16)
[2023-08-31] MEDS: METOPROLOL TARTRATE 50 MG TAB PO SCH (09:16)
[2023-08-31] MEDS: FUROSEMIDE 10 MG/ML 4 ML VIAL IV SCH (09:16)
[2023-08-31] MEDS: TAMSULOSIN 0.4 MG CAP.ER.24H PO SCH (09:16)
[2023-08-31] MEDS: ATORVASTATIN 80 MG TAB PO SCH (09:16)
[2023-08-31] MEDS: DOCUSATE 100 MG CAP PO SCH (09:16)
[2023-08-31] MEDS: hydrALAZINE HCL 25 MG TAB PO SCH ×2 (09:16→13:48)
[2023-08-31] MEDS: amLODIPine 10 MG TAB PO SCH (09:16)
[2023-08-31] MEDS: CALCIUM CARB-VIT D 500 MG-5 MCG TAB PO SCH (09:20)
[2023-08-31 09:59] LABS: African American GFR (CKD) 39 (>60 ml/min/1.73 sqM); Anion Gap 11 mmol/L; Blood Urea Nitrogen 31 mg/dL (9-20); Calcium 7.7 mg/dL (8.4-10.2); Carbon Dioxide 25 mmol/L (22-30); Chloride 97 mmol/L (98-107); Glucose 190 mg/dL (74-99); Non-African American GFR(CKD) 33 (>60 ml/min/1.73 sqM); Potassium 4.2 mmol/L (3.5-5.1); Sodium 133 mmol/L (137-145)
[2023-08-31] MEDS: NON FORMULARY DRUG (Liraglutide [Victoza 3-Pak] 0.6 MG/0.1 ML Ml) SQ SCH (10:27)
[2023-08-31 11:34] LABS: Glucose,Whole Blood 190 mg/dL (70-110)
[2023-08-31 11:41] VITALS: PULSE 72
[2023-08-31 12:07] VITALS: BP 141/58; TEMP 98.8
[2023-08-31] MEDS: FLUCONAZOLE IN NACL,ISO-OSM 100 MG in SALINE 1 50ML.BAG IVPB SCH (12:50)
--- NOTE | 2023-08-31 15:01 | P.PN ---
Subjective Progress Note Date: 08/31/23 Principal diagnosis: DVT, CHF At today's visit patient is resting comfortably in bedside chair. Patient is reporting persisting left sided neck pain, using norco with some relief, but reports he doesn't like taking narcotics. He is tolerating chopped diet and fluids, but complaining of discomfort with swallowing. Barium swallow study revealed no aspiration Objective - Vital Signs Vital signs: Vital Signs Temp 98.8 F 08/31/23 12:00 Pulse 72 08/31/23 12:00 Resp 18 08/31/23 12:00 BP 141/58 08/31/23 12:00 Pulse Ox 96 08/31/23 12:00 FiO2 Intake & Output 08/30/23 08/31/23 08/31/23 18:59 06:59 18:59 Intake Total 110 Output Total 1300 720 Balance -1300 -610 Weight 87.6 kg Intake: Oral 110 Output: Urine 1300 720 Other: Voiding Method Indwelling Catheter Indwelling Catheter Indwelling Catheter - Constitutional General appearance: Present: no acute distress - EENT Eyes: Present: anicteric sclerae ENT: Present: hearing grossly normal - Respiratory Details: breathing is even and unlabored - Cardiovascular Details: skin warm and dry - Integumentary Integumentary: Absent: cyanotic - Musculoskeletal Musculoskeletal: Present: generalized weakness - Psychiatric Psychiatric: Present: A&O x's 3, appropriate affect, intact judgment & insight - Labs CBC & Chem 7: 08/26/23 08:56 08/31/23 08:41 Labs: Abnormal Lab Results - Last 24 Hours (Table) 08/30/23 08/30/23 08/31/23 Range/Units 16:26 19:43 06:02 Sodium (137-145) mmol/L Chloride (98-107) mmol/L BUN (9-20) mg/dL Creatinine (0.66-1.25) mg/dL Glucose (74-99) mg/dL POC Glucose (mg/dL) 209 H 264 H 199 H (70-110) mg/dL Calcium (8.4-10.2) mg/dL 08/31/23 08/31/23 Range/Units 08:41 11:30 Sodium 133 L (137-145) mmol/L Chloride 97 L (98-107) mmol/L BUN 31 H (9-20) mg/dL Creatinine 1.97 H (0.66-1.25) mg/dL Glucose 190 H (74-99) mg/dL POC Glucose (mg/dL) 190 H (70-110) mg/dL Calcium 7.7 L (8.4-10.2) mg/dL Assessment and Plan (1) New onset of congestive heart failure Current Visit: Yes Status: Acute Priority: High Code(s): I50.9 - HEART FAILURE, UNSPECIFIED SNOMED Code(s): 48916443 (2) Thrombosis of left internal jugular vein Current Visit: Yes Status: Acute Priority: High Code(s): I82.C12 - ACUTE EMBOLISM AND THROMBOSIS OF LEFT INTERNAL JUGULAR VEIN SNOMED Code(s): 753746397 (3) Metastatic urothelial carcinoma Current Visit: Yes Status: Acute Priority: High Code(s): C79.10 - SECONDARY MALIGNANT NEOPLASM OF UNSPECIFIED URINARY ORGANS SNOMED Code(s): 62425215 Plan: Metastatic urothelial carcinoma: -Full history as stated in consult HPI -Completed treatment with concurrent chemo/RT in 06/2020. Was following up for observation in clinic through 11/2021 with no evidence of recurrence. Stopped f/u with urology in February 2022 due to insurance reasons, and has not had f/u since -Progressing left neck mass. Biopsy of the lt neck mass revealed metastatic non- small cell carcinoma consistent with metastatic high-grade urothelial carcinoma. -Reporting increasing left sided neck pain and odynophagia. Barium swallow study negative for aspiration. [place] increased, will continue to monitor pain control -Rad onc consulted for further evaluation of neck mass. Spoke with Dr. Juarez regarding case. Plan to schedule pt for outpt simulation Sunday -Plan for discharge today. PET CT and clinic f/u will be scheduled with Dr. Banda. Clinic staff will contact pt with details N/V: -Reglan added for additional anti-emetic support -Abdominal x-ray revealed overall nonobstructive bowel gas pattern. Patient was experiencing coffee ground emesis, sx now resolved. GI consulted, s/p EGD, revealing esophagitis and Otoole's esophagus, no evidence of upper GI bleed. Anticoagulation has been resumed DVT: -Doppler of left upper extremity was positive for nonocclusive deep vein thrombosis within the internal jugular vein and superficial thrombus within the left cephalic vein. Dopplers of bilateral lower extremities were negative for DVT. -Upon review of records patient was started on heparin and transitioned to Eliquis during last admission due to new onset A-fib with RVR, and has continued on Eliquis since discharge. LUE edema has been persisting since last admission with no changes in arm swelling, however, there were no dopplers obtained at that time. -At this time patient can continue on Eliquis, as it is likely thrombus was already present when started on anticoagulation. If additional thrombus presents while anticoagulated with Eliquis will have to switch anticoagulant CHF: -Continues on lasix -IM and cardiology following Patient is cleared from hem/onc standpoint for discharge once cleared by IM and other consulted medical specialties
--- NOTE | 2023-08-31 17:27 | P.PN ---
Subjective Patient is seen for follow-up for acute kidney injury. History of acute kidney injury in July 2023 which resolved with creatinine decreasing from 7.4 to 1.2 upon discharge. Patient also has a history of right hydronephrosis with history of metastatic urothelial carcinoma being followed by urology and oncology. Serum creatinine staying at 1.8-1.9mg/dL. Currently maintained on IV Lasix. 24 hour urine output at 1.3 L. No significant complaints today. Objective - Vital Signs Vital signs: Vital Signs Temp 98.8 F 08/31/23 12:00 Pulse 72 08/31/23 14:00 Resp 18 08/31/23 14:00 BP 141/58 08/31/23 12:00 Pulse Ox 96 08/31/23 12:00 FiO2 Intake & Output 08/30/23 08/31/23 08/31/23 18:59 06:59 18:59 Intake Total 110 Output Total 1300 1120 Balance -1300 -1010 Weight 87.6 kg Intake: Oral 110 Output: Urine 1300 1120 Uretheral (Montalvo) 400 Other: Voiding Method Indwelling Catheter Indwelling Catheter Indwelling Catheter - Exam On examination patient is comfortable awake no acute distress Examination of the heart S1 and S2 Examination of the lungs bilateral breath sounds are heard Abdomen is soft nontender Lower extremities show 1+ edema bilaterally [employer]PER[employer] exam grossly intact - Labs CBC & Chem 7: 08/26/23 08:56 08/31/23 08:41 Labs: Abnormal Lab Results - Last 24 Hours (Table) 08/30/23 08/31/23 08/31/23 Range/Units 19:43 06:02 08:41 Sodium 133 L (137-145) mmol/L Chloride 97 L (98-107) mmol/L BUN 31 H (9-20) mg/dL Creatinine 1.97 H (0.66-1.25) mg/dL Glucose 190 H (74-99) mg/dL POC Glucose (mg/dL) 264 H 199 H (70-110) mg/dL Calcium 7.7 L (8.4-10.2) mg/dL 08/31/23 Range/Units 11:30 Sodium (137-145) mmol/L Chloride (98-107) mmol/L BUN (9-20) mg/dL Creatinine (0.66-1.25) mg/dL Glucose (74-99) mg/dL POC Glucose (mg/dL) 190 H (70-110) mg/dL Calcium (8.4-10.2) mg/dL Assessment and Plan Assessment: 1. Acute kidney injury secondary to ATN secondary to cardiorenal syndrome. Creatinine staying at about 1.9-1.7. Right-sided hydronephrosis noted on kidney ultrasound. UA shows 1+ protein and no blood. Creatinine as low as 1.23 dated 08/10/2023. Urine retention noted and Montalvo catheter was placed. No plans for intervention from the urology standpoint given that serum creatinine had improved to 1.2 from 7.4 last admission in spite of right hydronephrosis. 2. Acute on chronic diastolic CHF. 3. Volume overload with scrotal edema. 4. Diabetes mellitus. 5. Benign hypertension. 6. Anemia. No significant iron deficiency noted. EGD done this admission showed esophagitis and Otoole's esophagus no active bleeding. Plan: OK to discharge pt on oral diuretics. F/u as op with Urology and nephrology. Continue with Montalvo catheter
--- NOTE | 2023-08-31 17:30 | P.DS ---
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 Do you want consulting provider notified?: Yes 08/20/23 10:33 Consult Physician Routine Consulting Provider: Milena Bryant Consult Reason/Comments: SOB Do you want consulting provider notified?: Yes 08/22/23 12:05 Consult Physician Routine Consulting Provider: Flory Mart Consult Reason/Comments: coffee ground emesis Do you want consulting provider notified?: Yes 08/26/23 07:19 Consult Physician Routine Consulting Provider: Amol Colby Consult Reason/Comments: EDITH Do you want consulting provider notified?: Yes 08/26/23 11:08 Consult Physician Routine Consulting Provider: Oh Macias Consult Reason/Comments: right hydro Do you want consulting provider notified?: Yes 08/27/23 12:50 Consult Physician Routine Consulting Provider: Sukhjinder Juarez Consult Reason/Comments: met urothelial carcinoma Do you want consulting provider notified?: Already Contacted Primary care physician: Sukhjinder Rubio [facility] Course: Pleasant 72-year-old patient who follows with Dr. Johnny Rubio./Mid-level provider-Kareen. Chronic stable medical conditions include CAD with stent in 2018, diabetes, hypertension, hyperlipidemia, osteoporosis, bladder cancer with treatment in remission and cystoscopy 2020, patient had right hip surgery in October of this year now does use a walker when he goes outside. Otherwise a cane. Patient was recently discharged from the hospital 08/04-08/14 left sided neck mass concerning for malignancy Presents today because of increasing swelling of arms and legs. Also patient complaining of from little shortness of breath occasional coughing but no chest pain He says he cannot go for his urine but he denies any GI problems No headache dizziness weakness numbness. he denies smoking, Alcohol or illicit tracts, He was not discharged on Lasix Vitals stable Labs are showing mild leukocytosis of 11.7, last time he was discharged his WBCs were 18.2. Hemoglobin 11.1, rest of CBC, INR is unremarkable. Creatinine 1.3 which is at baseline, potassium 5.4, magnesium 1.2. TSH is high at 18 and free T4 is low at 0.65 EKG showing normal sinus rhythm at [address]-T changes. Mild ST depression on the sixth Chest x-ray: Cardiomegaly with pulmonary vascular congestion and right pleural effusion suggestive of CHF. Venous Doppler: Superficial thrombus seen within the left cephalic vein. Nonocclusive deep venous thrombosis seen in the internal jugular vein 08/18/2023 Patient sitting up in bed, states that his breathing is slightly better, he can lie flat as he describes. Patient is not working at baseline, confirmed. The at bedside. History the have significant swelling of arms and legs. Patient was started on IV Lasix 40 mg twice daily and he continued on home dose of liquids 5 mg. Also patient is started on small dose of levothyroxine 25 g. 08/19/2023 Patient's no breathing difficulties, history and embedded and not walking, his main problem is the swelling. Patient currently on IV Lasix twice daily, he says he did not urinate and much. We'll discuss with the staff to check bladder scan. He was started on levothyroxine 25 g. Oncology team on the case, continue with Eliquis for his upper extremity DVT. Also present [facility] patient will require PET CT as an outpatient and then follow up with . also 08/20/2023: Up in a recliner. Bouts of coughing. Clear sputum. No fever no chills. Breathing better. Eating well. at the bedside. We will apply sleeve to the left upper extremity August 21: Reclining in bed. Coughing and sputum production much better. On DuoNeb and Pulmicort started yesterday. August 22: Patient vomited overnight a few times. Some coffee-ground emesis this morning. Put on clear liquids. GI consulted. Protonix added. August 23: Patient should have 1 more episode of coffee-ground emesis yesterday evening. Clear liquids. Nothing by mouth after midnight. Remains off eliquis. Plan for EGD tomorrow by GI. 08/25/2023 Patient evaluated today resting in bed. He states he feels improve as compared to yesterday. Underwent EGD which reveals Otoole's esophagus and esophagitis. Patient on protonix BID. Hemoglobin stable 9.3 today. No active bleeding noted. Cleared by GI to resume eliquis today. Renal function worsening with IV fluids currently up to 1.98. Noted that lasix was being held and patient was being hydrated. 08/26/2023 Patient evaluated resting in bed. Has been resumed on eliquis cleared by GI. Creatinine today slightly improved 1.88, IV fluids were stopped. Renal ultrasound does show moderate right sided hydronephrosis he has had 1180 mls out in the last 24 hours. Bladder scan is showing about 180-200 mls left in bladder. Recommended to start the patient on flomax. He reports difficulty swallowing today, does have left neck mass which is quite swollen and firm. He also has white coating on tongue will be started on IV diflucan. 08/27/2023 Patient resting in bed. PT/OT on consultation needs encouragement to be up out of bed. Urology recommending to monitor bladder scan PVR, and patient has been started on flomax. Speech therapy evaluation in to see patient had concerns regarding swallowing and pt underwent MBS and patient will continue on dysphagia 2 ground diet with thin liquids. Patient needs to sit upright for all meals. Discussed with oncology patients main complaint is the swelling and pain from the left neck mass. 08/28/2023: I resumed care of the patient today. Propped up in bed. Eating. Some pain in the left fascial tumor. Patient's had a Montalvo catheter for 2 days. Also being followed by nephrology and urology. Latter no current intervention. On IV Lasix. Patient had undergone EGD by Dr. Thuan Mart on August 24. Showed esophagitis and Otoole's esophagus. August 29: Feels a bit better. Eating fair. Remains on IV Lasix. Followed by nephrology. Spoke to the patient and at the bedside. August 30: Continue his IV Lasix. Eating well. Up in a chair. 2 L of oxygen. 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 [employer] worker looking into rehab August 31: Changed over to oral Lasix for discharge. Discussed with the ni ent. Patient will get a PET scan outside and follow-up with oncology and radiation oncology. This was communicated with social work supervisor. Seen by oncology. Patient follow-up with urology, radiation oncology, oncology, and nephrology. Discussion and discharge planning more than 35 minutes Social history: Used to work in a [employer]. . 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 Patient Smoked for 50 Years Stopped in 2019. Also Is Drinking Excessive Alcohol up to 2019. Physical examination: VITAL SIGNS: 98.8, 72, 18, 141/58, 96% on 2 L GENERAL: Propped up in chair, comfortable EYES: Pupils equal. Conjunctiva normal. HEENT: External appearance of nose and ears normal, oral cavity grossly normal. NECK: JVD not raised; masses not palpable. Hard mass of the left upper neck going to the mandible. Hard. HEART: Heart sounds irregular; mild edema. LUNGS: Respiratory rate normal; decreased breath sounds. ABDOMEN: Soft, nontender, liver spleen not palpable, no masses palpable. PSYCH: Alert and oriented x3; mood and affect normal EXTREMITY: Left upper extremity swelling compared to the right. In a sleeve MUSCULOSKELETAL:No Clubbing/cyanosis;muscles-grossly intact. OA INVESTIGATIONS, reviewed in the clinical context: August 31: Potassium 4.2 creatinine 1.97 EGD: Legionnaire erosions distal esophagus LA grade B reflux esophagitis.. Barium swallow with redo: Transient penetration with thin liquids. No aspiration. August 27: Potassium 3.9 BUN 25 creatinine 1.75 B12 759 folate 8.5, copper 882 August 23: White count 8.8 hemoglobin 8.9 potassium 4.2 creatinine 1.67 August 21: Sodium 134 potassium 4.5 BUN 31 creatinine 1.37 August 20: White count 9.5 hemoglobin 9.6 (219 potassium 5.4 BUN 34 creatinine 1.50 Ultrasound Doppler of the left upper extremity: Non occlusive DVT in the eye JVD. Superficial thrombosis within the left cephalic vein. . Recent investigations: 2-D echocardiogram: Preserved LV function. Mild inferior septal hypokinesis. CT soft tissue neck without contrast: Enlargement of the left parotid gland with surrounding the inflammatory attenuation as well as skeletal thinking. Also inflammatory thickening of the left sternocleidomastoid musculature. Surrounding reactive adenopathy. No obstructing Loss. CT chest abdomen pelvis: Small bowel guarded to 3 cm. Mild right-sided hydronephrosis. Gallstones Chest x-ray film personally reviewed by me-hyperinflation. Some pulmonary artery prominence EKG tracing personally reviewed by me-possible ectopic atrial rhythm. Ultrasound kidney: Mild right-sided hydronephrosis. Assessment: -Acute congestive heart exacerbation from diastolic dysfunction 50-55%.: Improved Lasix 40 mg twice a day Followed by cardiology and nephrology fluid restriction -Acute kidney injury secondary to ATN secondary to cardiorenal syndrome. Right- sided hydronephrosis. Creatinine peaked at 1.9. Montalvo catheter. Follow with nephrology and urology outpatient -Recurrent coffee-ground emesis., EGD: Esophagitis and Otoole's esophagus PPI Seen by Dr. Thuan Mart -Acute COPD exacerbation and a prior smoker: Better DuoNeb. Symbicort Paroxysmal atrial fibrillation - sinus rhythm Lopressor 50 mg twice a day Eliquis was held for coffee-ground emesis. Resumed -Essential hypertension Lopressor 50 mg twice a day. Amlodipine 10 mg a day Hydralazine 75 mg 4 times a day -Mild hydronephrosis For further workup outpatient with urology -Metastatic urothelial carcinoma: -Completed treatment with concurrent chemo/RT in 06/2020. Was following up for observation in clinic through 11/2021 with no evidence of recurrence. Stopped f/u with urology in February 2022 due to insurance reasons, and has not had f/u since -Progressing left neck mass. Biopsy of the lt neck mass revealed metastatic non- small cell carcinoma consistent with metastatic high-grade urothelial carcinoma. Results were discussed with patient and spouse -Will reschedule PET CT,-f/u with Dr. Banda -Hyperkalemia from underlying CK D: Improved Kayexalate -Non occlusive DVT in the left internal jugular vein. Superficial thrombosis within the left cephalic vein. Eliquis Sleeve left upper extremity Seen by Dr. Montalvo from vascular. And outpatient follow-up - metabolic acidosis from renal failure: Sodium bicarbonate -Hypocalcemia Os-Car vitamin D -Left upper neck mass. Metastatic non-small cell carcinoma consistent with metastatic high-grade urothelial carcinoma Follow-up with Dr. Cardoza from oncology -CAD with stent 2018 Aspirin. Coreg -Hyperlipidemia Lipitor -Diabetes mellitus type 2 on oral hypoglycemic Follow Accu-Cheks and sliding scale Victoza. -Full code. Disposition: Home Labs: CBC, BMP 5 days Plan - Discharge Summary Discharge Rx Participant: Yes New Discharge Prescriptions: New Fluconazole [Diflucan] 100 mg PO DAILY #3 tab Ipratropium-Albuterol Nebulize [Duoneb 0.5 mg-3 mg/3 ml Soln] 3 ml INHALATION TID #90 each Tamsulosin [Flomax] 0.4 mg PO DAILY #30 cap Pantoprazole [Protonix] 40 mg PO AC-BID #60 tab Levothyroxine Sodium [Synthroid] 25 mcg PO DAILY@0630 #30 tab Loratadine [Claritin] 5 mg PO DAILY #30 tab Furosemide [Lasix] 40 mg PO BID #60 tablet Budesonide/Formoterol Fumarate [Symbicort 80-4.5 Mcg Inhaler] 1 puff INHALATION BID #1 each Acetaminophen Tab [Tylenol] 650 mg PO Q6HR PRN tab PRN Reason: Mild Pain Or Fever > 100.5 Continue Atorvastatin [Lipitor] 80 mg PO DAILY Apixaban [Eliquis] 5 mg PO BID #60 tab amLODIPine [Norvasc] 10 mg PO DAILY #30 tab Liraglutide [Victoza 3-Sam] 1.8 mg SQ DAILY Magnesium Oxide [Mag-Ox] 400 mg PO DAILY #30 tab Metoprolol Tartrate [Lopressor] 50 mg PO BID #60 tab HYDROcodone/APAP 5-325MG [Surrency 5-325] 1 tab PO Q6H PRN PRN Reason: Pain Calcium Carb-Vit D 500Mg-5Mcg [Oscal 500+D 5 Mcg (200 Iu)] 1 tab PO DAILY Albuterol Sulfate [Albuterol Sulfate Hfa] 1 puff INHALATION RT-Q4H PRN PRN Reason: Shortness Of Breath Changed hydrALAZINE HCL [Apresoline] 75 mg PO QID #120 tab Discontinued metFORMIN HCL ER [Glucophage XR] 500 mg PO BID metroNIDAZOLE [Flagyl] 500 mg PO TID Levofloxacin [Levaquin] See Taper PO DAILY No Action Aspirin 81 mg PO DAILY #90 chewable Discharge Medication List Aspirin 81 mg PO DAILY #90 chewable 07/25/19 [Rx] Atorvastatin [Lipitor] 80 mg PO DAILY 05/13/20 [History] Liraglutide [Victoza 3-Sam] 1.8 mg SQ DAILY 08/04/23 [History] Apixaban [Eliquis] 5 mg PO BID #60 tab 08/10/23 [Rx] Magnesium Oxide [Mag-Ox] 400 mg PO DAILY #30 tab 08/10/23 [Rx] Metoprolol Tartrate [Lopressor] 50 mg PO BID #60 tab 08/10/23 [Rx] amLODIPine [Norvasc] 10 mg PO DAILY #30 tab 08/10/23 [Rx] Albuterol Sulfate [Albuterol Sulfate Hfa] 1 puff INHALATION RT-Q4H PRN 08/17/23 [History] Calcium Carb-Vit D 500Mg-5Mcg [Oscal 500+D 5 Mcg (200 Iu)] 1 tab PO DAILY 08/17/23 [History] HYDROcodone/APAP 5-325MG [Surrency 5-325] 1 tab PO Q6H PRN 08/17/23 [History] Acetaminophen Tab [Tylenol] 650 mg PO Q6HR PRN tab 08/31/23 [Rx] Budesonide/Formoterol Fumarate [Symbicort 80-4.5 Mcg Inhaler] 1 puff INHALATION BID #1 each 08/31/23 [Rx] Fluconazole [Diflucan] 100 mg PO DAILY #3 tab 08/31/23 [Rx] Furosemide [Lasix] 40 mg PO BID #60 tablet 08/31/23 [Rx] Ipratropium-Albuterol Nebulize [Duoneb 0.5 mg-3 mg/3 ml Soln] 3 ml INHALATION TID #90 each 08/31/23 [Rx] Levothyroxine Sodium [Synthroid] 25 mcg PO DAILY@0630 #30 tab 08/31/23 [Rx] Loratadine [Claritin] 5 mg PO DAILY #30 tab 08/31/23 [Rx] Pantoprazole [Protonix] 40 mg PO AC-BID #60 tab 08/31/23 [Rx] Tamsulosin [Flomax] 0.4 mg PO DAILY #30 cap 08/31/23 [Rx] hydrALAZINE HCL [Apresoline] 75 mg PO QID #120 tab 08/31/23 [Rx] Follow up Appointment(s)/Referral(s): Haider Garcia MD [STAFF PHYSICIAN] - 1 Week Sukhjinder Rubio MD [Primary Care Provider] - 1-2 days (Call office to set up follow up appointment ) Sukhjidner Juarez MD [STAFF PHYSICIAN] - 09/03/23 10:30 am Raf Banda MD [STAFF PHYSICIAN] - 08/29/23 9:15 am Patient Instructions/Handouts: Heart Failure (DC), Heart Failure (GEN)
--- NOTE | 2023-09-03 17:08 | CDI ---
Documentation Clarification Form Date: 09/03/2023 04:57:07 PM From: Rocio Guevara Phone: Admit Date: 08/17/2023 12:24:00 PM Patient Name: Dru Valverde Visit Number: [id number] Discharge Date: 08/31/2023 04:43:00 PM ATTENTION: The Clinical Documentation Specialists (CDI) and [facility] Coding Staff appreciate your assistance in clarifying documentation. Please respond to the clarification below the line at the bottom and electronically sign. The CDI & [facility] Coding staff will review the response and follow-up if needed. Please note: Queries are made part of the Legal Health Record. If you have any questions, please contact the author of this message via ITS. Dr. Gabbi Dow Unspecified CKD is documented per Consult 08/26 and Progress Notes. Additional clarification regarding the stage of CKD is requested. History/Risk Factors: 73yo M,ATN, cardiorenal syndrome, RT hydronephrosis w retention, ACDHF, DMII, HTN, anemia, mets cancer, esophagitisandBarrett's esophagus Clinical Indicators: Current BUN: 23 CR: 1.31 AfAm: 63 NonAf: 55 Treatment: Creatinine staying at about 1.9-1.7. UA shows 1+ protein and no blood. Creatinine as low as 1.23 dated 08/10/2023. Urine retentionnoted andFoley catheter was placed. No plans for intervention from the urology standpoint given that serum creatinine had improved to 1.2 from 7.4 last admission in spite ofright hydronephrosis. Please clarify the stage of the CKD, if known: [ ] CKD Stage 2 (GFR 60-89) [x ] CKD Stage 3a (GFR 45-59) [ ] Other, please specify [ ] Unable to determine (Template Last revised: November 2020) MTDD
== END 2023-08-31 16:43 | disposition home health service (06) | DRG 291 ==
LOC: EC 09:26 → 3SCARD 12:24 → OBSVTOIN 12:24 → 3SCARD 14:15
PROVIDERS: ADMIT Hospitalist; ATTEND Hospitalist
PROC: 0DB58ZX Excision of Esophagus, Via Natural or Artificial Opening Endoscopic, Diagnostic (ICD-10-PCS; principal; 2023-08-24 07:30)
DX: I13.0 Hypertensive heart and chronic kidney disease with heart failure and stage 1 through stage 4 chronic kidney disease, or unspecified chronic kidney disease (principal); I26.99 Other pulmonary embolism without acute cor pulmonale; I50.33 Acute on chronic diastolic (congestive) heart failure; J96.20 Acute and chronic respiratory failure, unspecified whether with hypoxia or hypercapnia; N17.0 Acute kidney failure with tubular necrosis; I82.622 Acute embolism and thrombosis of deep veins of left upper extremity; I82.C12 Acute embolism and thrombosis of left internal jugular vein; C79.89 Secondary malignant neoplasm of other specified sites; C79.19 Secondary malignant neoplasm of other urinary organs; J44.1 Chronic obstructive pulmonary disease with (acute) exacerbation; B37.0 Candidal stomatitis; K92.0 Hematemesis; I82.612 Acute embolism and thrombosis of superficial veins of left upper extremity; N13.30 Unspecified hydronephrosis; E11.22 Type 2 diabetes mellitus with diabetic chronic kidney disease; I48.0 Paroxysmal atrial fibrillation; E11.65 Type 2 diabetes mellitus with hyperglycemia; I50.82 Biventricular heart failure; N18.31 Chronic kidney disease, stage 3a; E83.51 Hypocalcemia; Z79.01 Long term (current) use of anticoagulants; I34.0 Nonrheumatic mitral (valve) insufficiency; E03.9 Hypothyroidism, unspecified; I65.29 Occlusion and stenosis of unspecified carotid artery; D63.0 Anemia in neoplastic disease; M81.0 Age-related osteoporosis without current pathological fracture; E78.5 Hyperlipidemia, unspecified; I25.10 Atherosclerotic heart disease of native coronary artery without angina pectoris; M19.90 Unspecified osteoarthritis, unspecified site; G14 Postpolio syndrome; G89.29 Other chronic pain; M54.50 Low back pain, unspecified; M21.70 Unequal limb length (acquired), unspecified site; D72.828 Other elevated white blood cell count; E83.42 Hypomagnesemia; K22.70 Barrett's esophagus without dysplasia; K44.9 Diaphragmatic hernia without obstruction or gangrene; K21.00 Gastro-esophageal reflux disease with esophagitis, without bleeding; E87.5 Hyperkalemia; N50.89 Other specified disorders of the male genital organs; N48.89 Other specified disorders of penis; M54.2 Cervicalgia; Z85.51 Personal history of malignant neoplasm of bladder; Z95.5 Presence of coronary angioplasty implant and graft; I25.2 Old myocardial infarction; Z86.018 Personal history of other benign neoplasm; Z82.49 Family history of ischemic heart disease and other diseases of the circulatory system; Z83.79 Family history of other diseases of the digestive system; Z92.3 Personal history of irradiation; Z92.21 Personal history of antineoplastic chemotherapy; Z85.59 Personal history of malignant neoplasm of other urinary tract organ; Z79.899 Other long term (current) drug therapy; Z79.890 Hormone replacement therapy; Z79.84 Long term (current) use of oral hypoglycemic drugs; Z79.82 Long term (current) use of aspirin; Z79.85 Long-term (current) use of injectable non-insulin antidiabetic drugs; Z87.891 Personal history of nicotine dependence
CPT/HCPCS: 36415; 43239; 51798; 71045; 71046; 74019; 74230; 76770; 80048; 80053; 81001; 82525; 82607; 82728; 82746; 83540; 83550; 83605; 83735; 83880; 83921; 84100; 84439; 84443; 85025; 85610; 85730; 88305; 88342; 93005; 93970; 94640; 94760; 96374; 96376; 99285

== ENCOUNTER 2023-09-06 09:06 | Inpatient (IN) | payer MEDICARE, OTHER ==
[2023-09-06] MEDS ORDERED: FUROSEMIDE 10 MG/ML 10 ML VIAL IV STA (09:47)
[2023-09-06] MEDS ORDERED: NITROGLYCERIN OINT 1 INCH/GM PACKET TOPICAL STA (09:48)
[2023-09-06 10:13] LABS: Basophils % (A) 0 %; Eosinophils # (A) 0.2 k/uL (0-0.7); Eosinophils % (A) 2 %; HCT 30.8 % (39.0-53.0); HGB 10.2 gm/dL (13.0-17.5); Lymphocytes # (A) 0.5 k/uL (1.0-4.8); Lymphocytes % (A) 5 %; MCH 34.4 pg (25.0-35.0); MCV 104.2 fL (80.0-100.0); Macrocytosis Slight; Mean Platelet Volume 11.1; Monocytes # (A) 0.5 k/uL (0-1.0); Monocytes % (A) 5 %; Neutrophils # (A) 8.9 k/uL (1.3-7.7); Neutrophils % (A) 87 %; Platelet Count 220 k/uL (150-450); RBC 2.95 m/uL (4.30-5.90); RDW 13.1 % (11.5-15.5); WBC 10.2 k/uL (3.8-10.6)
--- NOTE | 2023-09-06 10:25 | ED ---
General Adult HPI - General Chief complaint: Recheck/Abnormal Lab/Rx Stated complaint: Fluid Retention Time Seen by Provider: 09/06/23 09:20 Source: patient, RN notes reviewed, old records reviewed Mode of arrival: ambulatory Limitations: no limitations - History of Present Illness Initial comments: This is a 73-year-old male who presents emergency Department stating that he has a past medical history significant for congestive heart. Patient states she was just here in the hospital week ago and discharge. Patient states the swelling is legs is getting worse as well as the swelling in his arm. Patient states he also is a DVT to the left arm and he is on anticoagulants he believes eliquis for this. Patient states he is also becoming more more short of breath. Patient denies any chest pain or palpitations. Patient denies fever chills or cough per patient denies headache patient denies numbness weakness. Patient denies lightheadedness or dizziness. - Related Data Home Medications Medication Instructions Recorded Confirmed Atorvastatin [Lipitor] 80 mg PO DAILY 05/13/20 09/06/23 Liraglutide [Victoza 3-Sam] 1.8 mg SQ DAILY 08/04/23 09/06/23 Albuterol Sulfate [Albuterol 1 puff INHALATION RT-Q4H PRN 08/17/23 09/06/23 Sulfate Hfa] Calcium Carb-Vit D 500Mg-5Mcg 1 tab PO DAILY 08/17/23 09/06/23 [Oscal 500+D 5 Mcg (200 Iu)] Budesonide/Formoterol Fumarate 1 puff INHALATION RT-BID 09/06/23 09/06/23 [Symbicort 80-4.5 Mcg Inhaler] HYDROcodone/APAP 7.5-325MG [[place] 1 tab PO Q4H PRN 09/06/23 09/06/23 7.5-325] Ipratropium-Albuterol Nebulize 3 ml INHALATION RT-TID@08,14,21 09/06/23 09/06/23 [Duoneb 0.5 mg-3 mg/3 ml Soln] Morphine Sulfate ER [Ms Contin] 30 mg PO Q12HR 09/06/23 09/06/23 Pantoprazole [Protonix] 40 mg PO AC-BID@0800,1700 09/06/23 09/06/23 Sennosides/Docusate Sodium 1 tab PO BID 09/06/23 09/06/23 [Senna-S 8.6-50 mg Tablet] hydrALAZINE HCL [Apresoline] 75 mg PO QID@08,12,,09/06/23 09/06/23 Previous Rx's Medication Instructions Recorded Aspirin 81 mg PO DAILY #90 chewable 07/25/19 Apixaban [Eliquis] 5 mg PO BID #60 tab 08/10/23 Magnesium Oxide [Mag-Ox] 400 mg PO DAILY #30 tab 08/10/23 Metoprolol Tartrate [Lopressor] 50 mg PO BID #60 tab 08/10/23 amLODIPine [Norvasc] 10 mg PO DAILY #30 tab 08/10/23 Acetaminophen Tab [Tylenol] 650 mg PO Q6HR PRN tab 08/31/23 Furosemide [Lasix] 40 mg PO BID #60 tablet 08/31/23 Levothyroxine Sodium [Synthroid] 25 mcg PO DAILY@0630 #30 tab 08/31/23 Loratadine [Claritin] 5 mg PO DAILY #30 tab 08/31/23 Tamsulosin [Flomax] 0.4 mg PO DAILY #30 cap 08/31/23 Allergies Allergy/AdvReac Type Severity Reaction Status Date / Time No Known Allergies Allergy Verified 09/06/23 09:44 Review of Systems ROS Statement: Those systems with pertinent positive or pertinent negative responses have been documented in the HPI. ROS Other: All systems not noted in ROS Statement are negative. Past Medical History Past Medical History: Coronary Artery Disease (CAD), Cancer, Diabetes Mellitus, Hyperlipidemia, Hypertension, Myocardial Infarction (MT), Osteoarthritis (OA) Additional Past Medical History / Comment(s): Bladder cancer stage with treatment, in remission since 2020. IDDM type II, post polio syndrome,leg length discrepancy, bronchitis, chronic low back pain. Last Myocardial Infarction Date:: 07/23/19 History of Any Multi-Drug Resistant Organisms: None Reported Past Surgical History: Heart Catheterization With Stent, Orthopedic Surgery Additional Past Surgical History / Comment(s): Cystoscopy, TURBT x2, closure of patent urachus bladder tumor as , R leg surgery d/t polio-lengthening, cardiac stents 2018; Right hip surgery 11/03/2022 Past Anesthesia/Blood Transfusion Reactions: No Reported Reaction Date of Last Stent Placement:: 07/23/19 Past Psychological History: No Psychological Hx Reported Smoking Status: Former smoker Past Alcohol Use History: None Reported Past Drug Use History: None Reported - Past Family History Father History Unknown: Yes Mother Additional Family Medical History / Comment(s): Mother of in a MVA when pt was 15 yrs old. Brother(s) Additional Family Medical History / Comment(s): Pt has one brother who of a bowel problem and another brother that of a ruptured aneurysm. General Exam - General Exam Comments Initial Comments: GENERAL: Patient is well-developed and well-nourished. Patient is nontoxic and well- hydrated and is in mild distress. ENT: Neck is soft and supple. No significant lymphadenopathy is noted. Oropharynx is clear. Moist mucous membranes. Neck has full range of motion without eliciting any pain. EYES: The sclera were anicteric and conjunctiva were pink and moist. Extraocular movements were intact and pupils were equal round and reactive to light. Eyeli ds were unremarkable. PULMONARY: Unlabored respirations. Good breath sounds bilaterally. Patient has Rales bilaterally CARDIOVASCULAR: There is a regular rate and rhythm without any murmurs gallops or rubs. ABDOMEN: Soft and nontender with normal bowel sounds. SKIN: Skin is clear with no lesions or rashes and otherwise unremarkable. NEUROLOGIC: Patient is alert and oriented x3. Cranial nerves II through XII are grossly intact. Motor and sensory are also intact. Normal speech, volume and content. Symmetrical smile. MUSCULOSKELETAL: Normal extremities with adequate strength and full range of motion. 2+ edema LYMPHATICS: No significant lymphadenopathy is noted PSYCHIATRIC: Normal psychiatric evaluation. Limitations: no limitations Course Vital Signs 09/06/23 09/06/23 09/06/23 09:09 09:22 11:12 Temperature 98 F Pulse Rate 88 89 Respiratory 18 24 18 Rate Blood Pressure 158/66 137/63 O2 Sat by Pulse 2 L 97 Oximetry Medical Decision Making - Medical Decision Making EKG is interpreted by myself. EKG is sinus rhythm at 84 bpm WI interval 290 QRS is 94 QT interval 349 QTC is 390. Patient's EKG shows no ST segment elevation or depression. Was pt. sent in by a medical professional or institution (, PA, HY[employer]IC, urgent care, hospital, or longterm...) When possible be specific @ -No Did you speak to anyone other than the patient for history (EMS, parent, family, police, friend...)? What history was obtained from this source @ -No Did you review nursing and triage notes (agree or disagree)? Why? @ -I reviewed and agree with nursing and triage notes Were old charts reviewed (outside hosp., previous admission, EMS record, old EKG, old radiological studies, urgent care reports/EKG's, longterm records)? Report findings @ -I reviewed her charts prior radiological studies and prior lab work Differential Diagnosis (chest pain, altered mental status, abdominal pain women, abdominal pain men, vaginal bleeding, weakness, fever, dyspnea, syncope, headache, dizziness, GI bleed, back pain, seizure, CVA, palpatations, mental health, musculoskeletal)? @ -Differential Dyspnea: Coronary syndrome, arrhythmia, tamponade, asthma, COPD, pulmonary embolism, pneumonia, pneumothorax, pulmonary effusion, anaphylaxis, diabetic ketoacidosis, flailed chest, pulmonary contusion, diaphragmatic rupture, anemia, neuromuscula r, this is not meant to be an all-inclusive list. Dyspnea EKG interpreted by me (3pts min.). @ -As above X-rays interpreted by me (1pt min.). @ -She shows a moderate effusion on the left that was not there prior CT interpreted by me (1pt min.). @ -None done U/S interpreted by me (1pt. min.). @ -None done What testing was considered but not performed or refused? (CT, X-rays, U/S, labs)? Why? @ -I did consider doing a CAT scan however patient's creatinine was elevated so I held at this time What meds were considered but not given or refused? Why? @ -None Did you discuss the management of the patient with other professionals (professionals i.e. , PA, HY[employer]IC, lab, RT, psych nurse, rn social work, bulb brander, teacher, welfare officer, therapeutic case manager)? Give summary @ -I spoke with Dr. Vergara he agreed to admit the patient admitted the patient I wrote admitting orders Was smoking cessation discussed for >3mins.? @ -No Was critical care preformed (if so, how long)? @ -No Were there social determinants of health that impacted care today? How? (Homelessness, low income, unemployed, alcoholism, drug addiction, transportation, low edu. Level, literacy, decrease access to med. care, group home, rehab)? @ -No Was there de-escalation of care discussed even if they declined (Discuss DNR or withdrawal of care, Hospice)? DNR status @ -No What co-morbidities impacted this encounter? (DM, HTN, Smoking, COPD, CAD, Cancer, CVA, ARF, Chemo, Hep., AIDS, mental health diagnosis, sleep apnea, morbid obesity)? @ -None Was patient admitted / discharged? Hospital course, mention meds given and route, prescriptions, significant lab abnormalities, going to OR and other pertinent info. @ -Patient was given Lasix on arrival. Patient has increased swelling to the legs and increased pleural effusion on the left. I spoke with Dr. Vergara he was in agreement that we should admit the patient admitted the patient wrote adm itting orders Undiagnosed new problem with uncertain prognosis? @ -No Drug Therapy requiring intensive monitoring for toxicity (Heparin, Nitro, Insulin, Cardizem)? @ -No Were any procedures done? @ -No Diagnosis/symptom? @ -Pleural effusion Acute, or Chronic, or Acute on Chronic? @ -Acute Uncomplicated (without systemic symptoms) or Complicated (systemic symptoms)? @ -Complicated Side effects of treatment? @ -No Exacerbation, Progression, or Severe Exacerbation? @ -No Poses a threat to life or bodily function? How? (Chest pain, USA, MT, pneumonia, PE, COPD, DKA, ARF, appy, cholecystitis, CVA, Diverticulitis, Homicidal, Suicidal, threat to staff... and all critical care pts) @ -No Diagnosis/symptom? @ -Dyspnea Acute, or Chronic, or Acute on Chronic? @ -Acute Uncomplicated (without systemic symptoms) or Complicated (systemic symptoms)? @ -Complicated Side effects of treatment? @ -none Exacerbation, Progression, or Severe Exacerbation] @ -no Poses a threat to life or bodily function? @ -Yes this could lead to hypoxia and end organ dysfunction - Lab Data Result diagrams: 09/06/23 10:01 09/06/23 10:50 Lab Results 09/06/23 09/06/23 09/06/23 Range/Units 10:01 10:50 10:50 WBC 10.2 (3.8-10.6) k/uL RBC 2.95 L (4.30-5.90) m/uL Hgb 10.2 L (13.0-17.5) gm/dL Hct 30.8 L (39.0-53.0) % MCV 104.2 H (80.0-100.0) fL MCH 34.4 (25.0-35.0) pg MCHC 33.0 (31.0-37.0) g/dL RDW 13.1 (11.5-15.5) % Plt Count 220 (150-450) k/uL MPV 11.1 Neutrophils % 87 % Lymphocytes % 5 % Monocytes % 5 % Eosinophils % 2 % Basophils % 0 % Neutrophils # 8.9 H (1.3-7.7) k/uL Lymphocytes # 0.5 L (1.0-4.8) k/uL Monocytes # 0.5 (0-1.0) k/uL Eosinophils # 0.2 (0-0.7) k/uL Basophils # 0.0 (0-0.2) k/uL Macrocytosis Slight PT (10.0-12.5) sec INR (<1.2) APTT (22.0-30.0) sec Sodium 137 (137-145) mmol/L Potassium 5.2 H (3.5-5.1) mmol/L Chloride 101 (98-107) mmol/L Carbon Dioxide 27 (22-30) mmol/L Anion Gap 9 mmol/L BUN 44 H (9-20) mg/dL Creatinine 1.74 H (0.66-1.25) mg/dL Est GFR (CKD-EPI)AfAm 45 (>60 ml/min/1.73 sqM) Est GFR (CKD-EPI)NonAf 39 (>60 ml/min/1.73 sqM) Glucose 214 H (74-99) mg/dL Plasma Lactic Acid Bryan (0.7-2.0) mmol/L Calcium 8.5 (8.4-10.2) mg/dL Magnesium 2.1 (1.6-2.3) mg/dL Total Bilirubin 0.5 (0.2-1.3) mg/dL AST 30 (17-59) U/L ALT 19 (4-49) U/L Alkaline Phosphatase 113 (38-126) U/L Troponin I 0.018 (0.000-0.034) ng/mL NT-Pro-B Natriuret Pep 2220 pg/mL Total Protein 5.9 L (6.3-8.2) g/dL Albumin 3.2 L (3.5-5.0) g/dL 09/06/23 09/06/23 Range/Units 10:50 10:50 WBC (3.8-10.6) k/uL RBC (4.30-5.90) m/uL Hgb (13.0-17.5) gm/dL Hct (39.0-53.0) % MCV (80.0-100.0) fL MCH (25.0-35.0) pg MCHC (31.0-37.0) g/dL RDW (11.5-15.5) % Plt Count (150-450) k/uL MPV Neutrophils % % Lymphocytes % % Monocytes % % Eosinophils % % Basophils % % Neutrophils # (1.3-7.7) k/uL Lymphocytes # (1.0-4.8) k/uL Monocytes # (0-1.0) k/uL Eosinophils # (0-0.7) k/uL Basophils # (0-0.2) k/uL Macrocytosis PT 11.0 (10.0-12.5) sec INR 1.0 (<1.2) APTT 25.3 (22.0-30.0) sec Sodium (137-145) mmol/L Potassium (3.5-5.1) mmol/L Chloride (98-107) mmol/L Carbon Dioxide (22-30) mmol/L Anion Gap mmol/L BUN (9-20) mg/dL Creatinine (0.66-1.25) mg/dL Est GFR (CKD-EPI)AfAm (>60 ml/min/1.73 sqM) Est GFR (CKD-EPI)NonAf (>60 ml/min/1.73 sqM) Glucose (74-99) mg/dL Plasma Lactic Acid Bryan 1.3 (0.7-2.0) mmol/L Calcium (8.4-10.2) mg/dL Magnesium (1.6-2.3) mg/dL Total Bilirubin (0.2-1.3) mg/dL AST (17-59) U/L ALT (4-49) U/L Alkaline Phosphatase (38-126) U/L Troponin I (0.000-0.034) ng/mL NT-Pro-B Natriuret Pep pg/mL Total Protein (6.3-8.2) g/dL Albumin (3.5-5.0) g/dL Disposition Clinical Impression: Dyspnea, Pleural effusion Disposition: ADMITTED IP TO THIS HOSP Referrals: Sukhjinder Rubio MD [Primary Care Provider] - 1-2 days Time of Disposition: 12:25
--- NOTE | 2023-09-06 10:31 | XR ---
EXAMINATION TYPE: XR chest 2V DATE OF EXAM: 09/06/2023 COMPARISON: 08/23/2023 HISTORY: Shortness of breath TECHNIQUE: Frontal and lateral views of the chest are obtained. FINDINGS: Scattered senescent parenchymal changes noted. Hyperinflation compatible with COPD. Increased density left lower lobe may reflect effusion and atelectasis however underlying infiltrate is not excluded. Correlate clinically and progress studies are recommended. Heart size is stable. Mediastinal structures are stable and grossly unremarkable. No evidence for hilar prominence. Degenerative changes dorsal spine. IMPRESSION: 1. Increased density left lower lobe may reflect effusion and atelectasis however underlying infiltra te is not excluded. Correlate clinically and progress studies are recommended.
[2023-09-06 11:15] LABS: Partial Thromboplastin Time 25.3 sec (22.0-30.0)
[2023-09-06 11:49] LABS: ALT 19 U/L (4-49); AST 30 U/L (17-59); African American GFR (CKD) 45 (>60 ml/min/1.73 sqM); Albumin 3.2 g/dL (3.5-5.0); Alkaline Phosphatase 113 U/L (38-126); Anion Gap 9 mmol/L; Blood Urea Nitrogen 44 mg/dL (9-20); Calcium 8.5 mg/dL (8.4-10.2); Carbon Dioxide 27 mmol/L (22-30); Chloride 101 mmol/L (98-107); Glucose 214 mg/dL (74-99); Magnesium 2.1 mg/dL (1.6-2.3); NT-Pro-B-Type Natriuretic Pept 2220 pg/mL; Non-African American GFR(CKD) 39 (>60 ml/min/1.73 sqM); Potassium 5.2 mmol/L (3.5-5.1); Sodium 137 mmol/L (137-145); Total Bilirubin 0.5 mg/dL (0.2-1.3); Total Protein 5.9 g/dL (6.3-8.2)
[2023-09-06] MEDS ORDERED: FUROSEMIDE 10 MG/ML 4 ML VIAL IV SCH (13:00)
[2023-09-06] MEDS ORDERED: ALBUTEROL HFA INHALER INHALATION PRN (13:28)
[2023-09-06] MEDS ORDERED: LACTULOSE 20 GM/30 ML CUP PO PRN (13:32)
[2023-09-06] MEDS ORDERED: MELATONIN 3 MG TABLET PO PRN (13:32)
[2023-09-06] MEDS ORDERED: CALCIUM CARBONATE 500 MG CHEWABLE PO PRN (13:32)
[2023-09-06] MEDS ORDERED: NALOXONE 0.4 MG/ML 1 ML VIAL IV PRN (13:32)
[2023-09-06] MEDS ORDERED: ONDANSETRON 4 MG/2 ML VIAL IVP PRN (13:32)
[2023-09-06 13:35] LABS: Glucose,Whole Blood 213 mg/dL (70-110)
[2023-09-06] MEDS: FUROSEMIDE 100 MG in SODIUM CHLORIDE 0.9% 90 ML IV SCH ×2 (14:22→22:47)
[2023-09-06] MEDS: IPRATROPIUM-ALBUTEROL 3 ML NEB INHALATION SCH ×2 (15:27→22:08)
[2023-09-06 16:13] LABS: Glucose,Whole Blood 181 mg/dL (70-110)
[2023-09-06] MEDS: PANTOPRAZOLE 40 MG TABLET PO SCH (16:52)
[2023-09-06] MEDS: hydrALAZINE HCL 50 MG TAB PO SCH ×2 (16:52→21:40)
--- NOTE | 2023-09-06 19:07 | P.HPIM ---
History of Present Illness H&P Date: 09/06/23 Chief Complaint: Shortness of breath Pleasant 73-year-old patient who follows with Dr. Johnny Rubio./Mid-level provider-Kareen. Chronic stable medical conditions include CAD with stent in 2018, diabetes, hypertension, hyperlipidemia, osteoporosis, bladder cancer with treatment was in remission and cystoscopy 2020, was admitted to the hospital in August 04 of the left neck mass. -Metastatic urothelial carcinoma:Completed treatment with concurrent chemo/RT in 06/2020. Was following up for observation in clinic through 11/2021 with no evidence of recurrence. Stopped f/u with urology in February 2022 due to insurance reasons, Biopsy - metastatic non-small cell carcinoma consistent with metastatic high- grade urothelial carcinoma. . Patient also developed DVT in the left cephalic vein and DVT in the internal jugular vein. Patient spending outpatient PET scan. Also had an episode of coffee-ground emesis. Had EGD. Showed that his esophagus and esophagitis. Put on PPI. Patient also treated with Diflucan for thrush. Also was found to have gallstones and right hydronephrosis.-Mild. Also was treated for diastolic CHF exacerbation. Patient started on radiation treatment this Sunday. With Dr. Johnny Juarez. Patient now presents to the ER accompanied by his . Increasing short of breath in the last few days. Had to sleep in a recliner. Increasing lower extremity edema. Bruising. Shortness of breath. No chest pain. Admitted with CHF exacerbation. Appetite has gone down Review of systems: GEN.: Decreased appetite EYES: None HEENT: None NECK: None RESPIRATORY: As above CARDIOVASCULAR: As above] GASTROINTESTINAL: None GENITOURINARY: None MUSCULOSKELETAL: None LYMPHATICS: None HEMATOLOGICAL: None PSYCHIATRY: None NEUROLOGICAL: Denies weakness Social history: Used to work in a [employer]. . 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 Patient Smoked for 50 Years Stopped in 2019. Drinking Excessive Alcohol up to 2019. Physical examination: VITAL SIGNS: 98.3, 72, 18, 132/73, 97% on 2 L GENERAL: Propped up in bed, short of breath tired EYES: Pupils equal. Conjunctiva normal. HEENT: External appearance of nose and ears normal, oral cavity grossly normal. NECK: JVD possibly raised; masses not palpable. Hard mass of the left upper neck going to the mandible. Hard. HEART: Heart sounds irregular; difficult edema LUNGS: Respiratory rate increased; decreased breath sounds. ABDOMEN: Soft, nontender, liver spleen not palpable, no masses palpable. PSYCH: Alert and oriented x3; mood and affect with anxious EXTREMITY: Left upper extremity swelling compared to the right. In a sleeve MUSCULOSKELETAL:No Clubbing/cyanosis;muscles-grossly intact. OA NEUROLOGICAL: Some facial asymmetry secondary to left neck mass. Otherwise cranial nerves grossly intact. Bun and sensation grossly intact INVESTIGATIONS, reviewed in the clinical context: September 06: White count 10.2 hemoglobin 10.2 platelets 220 sodium 137 potassium 5.2 BUN 44 creatinine 1.74 EKG tracing personally reviewed by me-normal sinus rhythm. Chest x-ray film personally reviewed by me-left pleural effusion. Recent investigations: August 31: Potassium 4.2 creatinine 1.97 EGD: Legionnaire erosions distal esophagus LA grade B reflux esophagitis.. Barium swallow with redo: Transient penetration with thin liquids. No aspiration. Ultrasound Doppler of the left upper extremity: Non occlusive DVT in the eye JVD. Superficial thrombosis within the left cephalic vein. 2-D echocardiogram: Preserved LV function. Mild inferior septal hypokinesis. CT soft tissue neck without contrast: Enlargement of the left parotid gland with surrounding the inflammatory attenuation as well as skeletal thinking. Also inflammatory thickening of the left sternocleidomastoid musculature. Surrounding reactive adenopathy. No obstructing Loss. CT chest abdomen pelvis: Small bowel guarded to 3 cm. Mild right-sided hydronephrosis. Gallstones Ultrasound kidney: Mild right-sided hydronephrosis. Assessment: -Acute on chronic congestive heart exacerbation from diastolic dysfunction 50- 55%. IV Lasix drip at 10 mg hour. Strict I's and O's. Consult cardiology fluid restriction 15 mL a day -Chronic kidney disease likely hydronephrosis secondary cardiorenal syndrome. Along with Right-sided hydronephrosis. Strict I's and O's. Nephrology consulted -Chronic Esophagitis and Otoole's esophagus, recent EGD PPI Was previously seen Seen by Dr. Thuan Mart -COPD in a prior smoker: DuoNeb. Symbicort Paroxysmal atrial fibrillation - sinus rhythm Lopressor 50 mg twice a day Eliquis -Essential hypertension Lopressor 50 mg twice a day. Amlodipine 10 mg a day Hydralazine 75 mg 4 times a day -Mild hydronephrosis-right For further workup outpatient with urology -Metastatic urothelial carcinoma: -Completed treatment with concurrent chemo/RT in 06/2020. Was following up for observation in clinic through 11/2021 with no evidence of recurrence. Stopped f/u with urology in February 2022 due to insurance reasons, and has not had f/u since -Progressing left neck mass. Biopsy of the lt neck mass revealed metastatic non- small cell carcinoma consistent with metastatic high-grade urothelial carcinoma. Results were discussed with patient and spouse Consult Dr. 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 Superficial thrombosis within the left cephalic vein. Eliquis Sleeve left upper extremity Followed by Dr. Montalvo from vascular. -CAD with stent 2019 Aspirin. Coreg -Hyperlipidemia Lipitor -Diabetes mellitus type 2 on oral hypoglycemic Follow Accu-Cheks and sliding scale Victoza. -Full code. Past Medical History Past Medical History: Coronary Artery Disease (CAD), Cancer, Diabetes Mellitus, Hyperlipidemia, Hypertension, Myocardial Infarction ([place]), Osteoarthritis (OA) Additional Past Medical History / Comment(s): Bladder cancer stage with treatment, in remission since 2020. IDDM type II, post polio syndrome,leg length discrepancy, bronchitis, chronic low back pain. Last Myocardial Infarction Date:: 07/23/19 History of Any Multi-Drug Resistant Organisms: None Reported Past Surgical History: Heart Catheterization With Stent, Orthopedic Surgery Additional Past Surgical History / Comment(s): Cystoscopy, TURBT x2, closure of patent urachus bladder tumor as infant, R leg surgery d/t polio-lengthening, cardiac stents 2018; Right hip surgery 11/03/2022 Past Anesthesia/Blood Transfusion Reactions: No Reported Reaction Date of Last Stent Placement:: 07/23/19 Past Psychological History: No Psychological Hx Reported Smoking Status: Former smoker Past Alcohol Use History: None Reported Past Drug Use History: None Reported - Past Family History Father History Unknown: Yes Mother Additional Family Medical History / Comment(s): Mother of in a MVA when pt was 15 yrs old. Brother(s) Additional Family Medical History / Comment(s): Pt has one brother who of a bowel problem and another brother that of a ruptured aneurysm. Medications and Allergies Home Medications Medication Instructions Recorded Confirmed Type Aspirin 81 mg PO DAILY #90 chewable 07/25/19 09/06/23 Rx Atorvastatin [Lipitor] 80 mg PO DAILY 05/13/20 09/06/23 History Liraglutide [[place] 3-Sam] 1.8 mg SQ DAILY 08/04/23 09/06/23 History Apixaban [Eliquis] 5 mg PO BID #60 tab 08/10/23 09/06/23 Rx Magnesium Oxide [Mag-Ox] 400 mg PO DAILY #30 tab 08/10/23 09/06/23 Rx Metoprolol Tartrate [Lopressor] 50 mg PO BID #60 tab 08/10/23 09/06/23 Rx amLODIPine [Norvasc] 10 mg PO DAILY #30 tab 08/10/23 09/06/23 Rx Albuterol Sulfate [Albuterol 1 puff INHALATION RT-Q4H PRN 08/17/23 09/06/23 History Sulfate Hfa] Calcium Carb-Vit D 500Mg-5Mcg 1 tab PO DAILY 08/17/23 09/06/23 History [Oscal 500+D 5 Mcg (200 Iu)] Acetaminophen Tab [Tylenol] 650 mg PO Q6HR PRN tab 08/31/23 09/06/23 Rx Furosemide [Lasix] 40 mg PO BID #60 tablet 08/31/23 09/06/23 Rx Levothyroxine Sodium [Synthroid] 25 mcg PO DAILY@0630 #30 tab 08/31/23 09/06/23 Rx Loratadine [Claritin] 5 mg PO DAILY #30 tab 08/31/23 09/06/23 Rx Tamsulosin [Flomax] 0.4 mg PO DAILY #30 cap 08/31/23 09/06/23 Rx Budesonide/Formoterol Fumarate 1 puff INHALATION RT-BID 09/06/23 09/06/23 Histor y [Symbicort 80-4.5 Mcg Inhaler] HYDROcodone/APAP 7.5-325MG [[place] 1 tab PO Q4H PRN 09/06/23 09/06/23 History 7.5-325] Ipratropium-Albuterol Nebulize 3 ml INHALATION RT-TID@08,14,09/06/23 09/06/23 History [Duoneb 0.5 mg-3 mg/3 ml Soln] Morphine Sulfate ER [Ms Contin] 30 mg PO Q12HR 09/06/23 09/06/23 History Pantoprazole [Protonix] 40 mg PO AC-BID@0800,1700 09/06/23 09/06/23 History Sennosides/Docusate Sodium 1 tab PO BID 09/06/23 09/06/23 History [Senna-S 8.6-50 mg Tablet] hydrALAZINE HCL [Apresoline] 75 mg PO QID@08,12,,09/06/23 09/06/23 History Allergies Allergy/AdvReac Type Severity Reaction Status Date / Time No Known Allergies Allergy Verified 09/06/23 09:44 Physical Exam Vitals: Vital Signs Temp Pulse Pulse Resp BP BP Pulse Ox 09/06/23 13:27 98.3 F 72 17 172/73 97 09/06/23 13:10 87 18 159/75 98 09/06/23 12:00 82 18 160/74 97 09/06/23 11:12 89 18 137/63 97 09/06/23 09:22 24 09/06/23 09:09 98 F 88 18 158/66 2 L Intake and Output 09/05/23 09/06/23 09/06/23 22:59 06:59 14:59 Output Total 420 Balance -420 Output: Urine 420 Uretheral (Montalvo) 420 Other: Weight 93.44 kg Results CBC & Chem 7: 09/06/23 10:01 09/06/23 10:50 Labs: Abnormal Lab Results - Last 24 Hours (Table) 09/06/23 09/06/23 Range/Units 10:01 10:50 RBC 2.95 L (4.30-5.90) m/uL Hgb 10.2 L (13.0-17.5) gm/dL Hct 30.8 L (39.0-53.0) % MCV 104.2 H (80.0-100.0) fL Neutrophils # 8.9 H (1.3-7.7) k/uL Lymphocytes # 0.5 L (1.0-4.8) k/uL Potassium 5.2 H (3.5-5.1) mmol/L BUN 44 H (9-20) mg/dL Creatinine 1.74 H (0.66-1.25) mg/dL Glucose 214 H (74-99) mg/dL Total Protein 5.9 L (6.3-8.2) g/dL Albumin 3.2 L (3.5-5.0) g/dL
[2023-09-06 19:29] LABS: Glucose,Whole Blood 245 mg/dL (70-110)
[2023-09-06] MEDS: APIXABAN 5 MG TAB PO SCH (21:39)
[2023-09-06] MEDS: MORPHINE SULFATE ER 30 MG TABLET PO SCH (21:39)
[2023-09-06] MEDS: SENNOSIDES-DOCUSATE SODIUM 1 EACH TAB PO SCH (21:39)
[2023-09-06] MEDS: METOPROLOL TARTRATE 50 MG TAB PO SCH (21:39)
[2023-09-06] MEDS: SYMBICORT 80-4.5 MCG INHALER INHALATION SCH (22:08)
[2023-09-07] MEDS: HYDROcodone/APAP 7.5-325MG 1 EACH TAB PO PRN ×2 (00:31→14:44)
[2023-09-07] MEDS: LEVOTHYROXINE 25 MCG TAB PO SCH (05:55)
[2023-09-07 05:59] LABS: Glucose,Whole Blood 142 mg/dL (70-110)
[2023-09-07] MEDS: MAGNESIUM OXIDE 400 MG TAB PO SCH (08:02)
[2023-09-07] MEDS: LORATADINE 10 MG TAB PO SCH (08:02)
[2023-09-07] MEDS: SENNOSIDES-DOCUSATE SODIUM 1 EACH TAB PO SCH ×2 (08:02→21:37)
[2023-09-07] MEDS: TAMSULOSIN 0.4 MG CAP.ER.24H PO SCH (08:02)
[2023-09-07] MEDS: METOPROLOL TARTRATE 50 MG TAB PO SCH ×2 (08:03→21:37)
[2023-09-07] MEDS: hydrALAZINE HCL 50 MG TAB PO SCH ×4 (08:03→21:36)
[2023-09-07] MEDS: ATORVASTATIN 80 MG TAB PO SCH (08:03)
[2023-09-07] MEDS: APIXABAN 5 MG TAB PO SCH ×2 (08:03→21:36)
[2023-09-07] MEDS: amLODIPine 10 MG TAB PO SCH (08:03)
[2023-09-07] MEDS: CALCIUM CARB-VIT D 500 MG-5 MCG TAB PO SCH (08:03)
[2023-09-07] MEDS: ASPIRIN 81 MG PO SCH (08:03)
[2023-09-07] MEDS: MORPHINE SULFATE ER 30 MG TABLET PO SCH ×2 (08:04→21:36)
[2023-09-07] MEDS: PANTOPRAZOLE 40 MG TABLET PO SCH ×2 (08:08→16:28)
[2023-09-07] MEDS: IPRATROPIUM-ALBUTEROL 3 ML NEB INHALATION SCH ×3 (08:23→21:36)
[2023-09-07] MEDS: SYMBICORT 80-4.5 MCG INHALER INHALATION SCH ×2 (08:23→21:36)
[2023-09-07] MEDS ORDERED: Liraglutide [Victoza 3-Pak] 0.6 MG/0.1 ML Ml SQ SCH ×2 (09:00→14:22)
[2023-09-07 09:35] LABS: African American GFR (CKD) 43 (>60 ml/min/1.73 sqM); Anion Gap 9 mmol/L; Blood Urea Nitrogen 40 mg/dL (9-20); Calcium 8.2 mg/dL (8.4-10.2); Carbon Dioxide 28 mmol/L (22-30); Chloride 98 mmol/L (98-107); Glucose 136 mg/dL (74-99); Magnesium 1.8 mg/dL (1.6-2.3); Non-African American GFR(CKD) 37 (>60 ml/min/1.73 sqM); Potassium 4.6 mmol/L (3.5-5.1); Sodium 135 mmol/L (137-145)
[2023-09-07] MEDS: FUROSEMIDE 100 MG in SODIUM CHLORIDE 0.9% 90 ML IV SCH (09:37)
--- NOTE | 2023-09-07 11:21 | P.CRDCN ---
History of Present Illness History of present illness: HISTORY OF PRESENT ILLNESS: This is a 73-year-old male with a past medical history significant for congestive heart failure, coronary artery disease with previous stenting, valvular heart disease, hypertension, hyperlipidemia, and carotid stenosis. Patient follows in the office with Dr. Linda. We have been asked to see the patient in consultation for congestive heart failure. Patient examined at the bedside. Patient presented to the hospital with a chief complaint of increased swelling and shortness of breath. The patient was found to be in acute heart failure. He was started on an Lasix drip by primary medicine. At the time of examination, the patient reports improvement in his shortness of breath. He denies chest pain or pressure. Vital signs are stable. * EKG reveals sinus mechanism with no signs of acute ischemia * Chest xray increased density left lower lobe may reflect effusion and atelectasis however underlying infiltrate not excluded. * Laboratory data: BUN 40. Creatinine 1.79. ProBNP 2220. Troponin negative 1. * Most recent echocardiogram obtained in May 2022 revealed normal ejection fraction with moderate MR * Cardiac catheterization history: July 2019 revealing critical disease involving the RCA, intermediate disease involving the left circumflex, intermediate disease involving the ramus intermedius. Patient underwent chetna nting of the proximal RCA and mid RCA. REVIEW OF SYSTEMS: At the time of my exam: CONSTITUTIONAL: Denies fever or chills. HEENT: Denies blurred vision, vision changes, or eye pain. Denies hemoptysis CARDIOVASCULAR: Denies chest pain. Denies orthopnea. Denies PND. Denies palpitations RESPIRATORY: Denies shortness of breath. GASTROINTESTINAL: Denies abdominal pain. Denies nausea or vomiting. HEMATOLOGIC: Denies bleeding disorders. GENITOURINARY: Denies any blood in urine. SKIN: Denies pruitis. Denies rash. PHYSICAL EXAM: VITAL SIGNS: Reviewed. GENERAL: Well-developed in no acute distress. HEENT: Head is normocephalic. Pupils are equal, round. Sclerae anicteric. Mucous membranes of the mouth are moist. Neck supple. No JVD or thyromegaly LUNGS: Respirations even and unlabored. Lungs diminished bilaterally HEART: Regular rate and rhythm. S1 and S2 heard. Systolic murmur noted ABDOMEN: Soft. Nondistended. Nontender. EXTREMITIES: Normal range of motion. No clubbing or cyanosis. Peripheral pulses intact. 2+ bilateral lower extremity edema NEUROLOGIC: Awake and alert. Oriented x 3. ASSESSMENT: Shortness of breath Acute on chronic heart failure with preserved ejection fraction Chronic kidney disease COPD Coronary artery disease with previous stenting Valvular heart disease Hypertension Hyperlipidemia Carotid stenosis History of DVT PLAN: Discontinue Nitropaste Continue Lasix drip for an additional 24 hours Continue additional home cardiac medications Further recommendations pending patient's course Nurse practitioner note has been reviewed by physician. Signing provider agrees with the documented findings, assessment, and plan of care. Past Medical History Past Medical History: Coronary Artery Disease (CAD), Cancer, Diabetes Mellitus, Hyperlipidemia, Hypertension, Myocardial Infarction (CT), Osteoarthritis (OA) Additional Past Medical History / Comment(s): Bladder cancer stage with treatment, in remission since 2020. IDDM type II, post polio syndrome,leg length discrepancy, bronchitis, chronic low back pain. Last Myocardial Infarction Date:: 07/23/19 History of Any Multi-Drug Resistant Organisms: None Reported Past Surgical History: Heart Catheterization With Stent, Orthopedic Surgery Additional Past Surgical History / Comment(s): Cystoscopy, TURBT x2, closure of patent urachus bladder tumor as , R leg surgery d/t polio-lengthening, cardiac stents 2018; Right hip surgery 11/03/2022 Past Anesthesia/Blood Transfusion Reactions: No Reported Reaction Date of Last Stent Placement:: 07/23/19 Past Psychological History: No Psychological Hx Reported Smoking Status: Former smoker Past Alcohol Use History: None Reported Past Drug Use History: None Reported - Past Family History Father History Unknown: Yes Mother Additional Family Medical History / Comment(s): Mother of in a MVA when pt was 15 yrs old. Brother(s) Additional Family Medical History / Comment(s): Pt has one brother who of a bowel problem and another brother that of a ruptured aneurysm. Medications and Allergies Home Medications Medication Instructions Recorded Confirmed Type Aspirin 81 mg PO DAILY #90 chewable 07/25/19 09/06/23 Rx Atorvastatin [Lipitor] 80 mg PO DAILY 05/13/20 09/06/23 History Liraglutide [Victoza 3-Sam] 1.8 mg SQ DAILY 08/04/23 09/06/23 History Apixaban [Eliquis] 5 mg PO BID #60 tab 08/10/23 09/06/23 Rx Magnesium Oxide [Mag-Ox] 400 mg PO DAILY #30 tab 08/10/23 09/06/23 Rx Metoprolol Tartrate [Lopressor] 50 mg PO BID #60 tab 08/10/23 09/06/23 Rx amLODIPine [Norvasc] 10 mg PO DAILY #30 tab 08/10/23 09/06/23 Rx Albuterol Sulfate [Albuterol 1 puff INHALATION RT-Q4H PRN 08/17/23 09/06/23 History Sulfate Hfa] Calcium Carb-Vit D 500Mg-5Mcg 1 tab PO DAILY 08/17/23 09/06/23 History [Oscal 500+D 5 Mcg (200 Iu)] Acetaminophen Tab [Tylenol] 650 mg PO Q6HR PRN tab 08/31/23 09/06/23 Rx Furosemide [Lasix] 40 mg PO BID #60 tablet 08/31/23 09/06/23 Rx Levothyroxine Sodium [Synthroid] 25 mcg PO DAILY@0630 #30 tab 08/31/23 09/06/23 Rx Loratadine [Claritin] 5 mg PO DAILY #30 tab 08/31/23 09/06/23 Rx Tamsulosin [Flomax] 0.4 mg PO DAILY #30 cap 08/31/23 09/06/23 Rx Budesonide/Formoterol Fumarate 1 puff INHALATION RT-BID 09/06/23 09/06/23 History [Symbicort 80-4.5 Mcg Inhaler] HYDROcodone/APAP 7.5-325MG [[place] 1 tab PO Q4H PRN 09/06/23 09/06/23 History 7.5-325] Ipratropium-Albuterol Nebulize 3 ml INHALATION RT-TID@08,14,21 09/06/23 09/06/23 History [Duoneb 0.5 mg-3 mg/3 ml Soln] Morphine Sulfate ER [Ms Contin] 30 mg PO Q12HR 09/06/23 09/06/23 History Pantoprazole [Protonix] 40 mg PO AC-BID@0800,1700 09/06/23 09/06/23 History Sennosides/Docusate Sodium 1 tab PO BID 09/06/23 09/06/23 History [Senna-S 8.6-50 mg Tablet] hydrALAZINE HCL [Apresoline] 75 mg PO QID@08,12,17,22 09/06/23 09/06/23 History Allergies Allergy/AdvReac Type Severity Reaction Status Date / Time No Known Allergies Allergy Verified 09/06/23 09:44 Physical Exam Vitals: Vital Signs Temp Pulse Pulse Pulse Resp BP BP 09/07/23 08:36 80 09/07/23 08:23 78 09/07/23 08:00 98.3 F 74 17 155/67 09/07/23 03:20 98.2 F 65 18 137/62 09/07/23 00:00 73 18 134/57 09/06/23 22:22 80 09/06/23 22:09 80 09/06/23 20:00 98.2 F 80 16 140/65 09/06/23 16:52 72 15 140/63 09/06/23 14:09 82 09/06/23 13:49 09/06/23 13:32 98.3 F 72 18 172/73 09/06/23 13:27 98.3 F 72 17 172/73 09/06/23 13:10 87 18 159/75 09/06/23 12:00 82 18 160/74 Pulse Ox 09/07/23 08:36 09/07/23 08:23 09/07/23 08:00 94 L 09/07/23 03:20 95 09/07/23 00:00 96 09/06/23 22:22 09/06/23 22:09 95 09/06/23 20:00 95 09/06/23 16:52 97 09/06/23 14:09 09/06/23 13:49 97 09/06/23 13:32 97 09/06/23 13:27 97 09/06/23 13:10 98 09/06/23 12:00 97 Intake and Output 09/06/23 09/07/23 09/07/23 22:59 06:59 14:59 Intake Total 1414.167 480 218 Output Total 1650 800 Balance -235.833 -320 218 Intake: IV 10 Invasive Line 1 10 Intake, IV Titration 84.167 100 Amount Furosemide 100 mg In 84.167 100 Sodium Chloride 0.9% 90 ml @ 10 MG/HR 10 mls/hr IV .Q10H [facility] Rx#: [id number] Oral 1320 480 118 Output: Urine 1650 800 Other: Voiding Method Indwelling Catheter Indwelling Catheter Indwelling Catheter Weight 89 kg Results 09/06/23 10:01 09/07/23 07:42 Cardiac Enzymes 09/06/23 09/06/23 Range/Units 10:50 10:50 AST 30 (17-59) U/L Troponin I 0.018 (0.000-0.034) ng/mL Coagulation 09/06/23 Range/Units 10:50 PT 11.0 (10.0-12.5) sec APTT 25.3 (22.0-30.0) sec Comprehensive Metabolic Panel 09/06/23 09/07/23 Range/Units 10:50 07:42 Sodium 137 135 L (137-145) mmol/L Potassium 5.2 H 4.6 (3.5-5.1) mmol/L Chloride 101 98 (98-107) mmol/L Carbon Dioxide 27 28 (22-30) mmol/L BUN 44 H 40 H (9-20) mg/dL Creatinine 1.74 H 1.79 H (0.66-1.25) mg/dL Glucose 214 H 136 H (74-99) mg/dL Calcium 8.5 8.2 L (8.4-10.2) mg/dL AST 30 (17-59) U/L ALT 19 (4-49) U/L Alkaline Phosphatase 113 (38-126) U/L Total Protein 5.9 L (6.3-8.2) g/dL Albumin 3.2 L (3.5-5.0) g/dL Current Medications Generic Name Dose Route Start Last Admin Trade Name Freq PRN Reason Stop Dose Admin Acetaminophen 650 mg 09/06/23 13:28 Acetaminophen Tab 325 Mg Tab PO Q6HR PRN Mild Pain or Fever > 100.5 Hydrocodone Bitart/Acetaminophen 1 each 09/06/23 13:28 09/07/23 00:31 Hydrocodone/Apap 7.5-325mg 1 Each Tab PO 1 each Q4H PRN Administration Pain Albuterol Sulfate 1 puff 09/06/23 13:28 Albuterol Hfa Inhaler INHALATION RT-Q4H PRN Shortness Of Breath Albuterol/Ipratropium 3 ml 09/06/23 14:00 11/17/23 08:23 Ipratropium-Albuterol 3 Ml Neb INHALATION 3 ml RT-TID@,, GURDEEP Administration Amlodipine Besylate 10 mg 09/07/23 09:00 09/07/23 08:03 Amlodipine 10 Mg Tab PO 10 mg DAILY GURDEEP Administration Apixaban 5 mg 09/06/23 21:00 09/07/23 08:03 Apixaban 5 Mg Tab PO 5 mg BID GURDEEP Administration Protocol Aspirin 81 mg 09/07/23 09:00 09/07/23 08:03 Aspirin 81 Mg PO 81 mg DAILY GURDEEP Administration Atorvastatin Calcium 80 mg 09/07/23 09:00 09/07/23 08:03 Atorvastatin 80 Mg Tab PO 80 mg DAILY GURDEEP Administration Budesonide/Formoterol Fumarate 1 puff 09/06/23 20:00 09/07/23 08:23 Symbicort 80-4.5 Mcg Inhaler INHALATION 1 puff RT-BID GURDEEP Administration Calcium Carbonate 1 each 09/07/23 09:00 09/07/23 08:03 Calcium Carb-Vit D 500 Mg-5 Mcg Tab PO 1 each DAILY GURDEEP Administration Calcium Carbonate/Glycine 1,000 mg 09/06/23 13:32 Calcium Carbonate 500 Mg Chewable PO Q4HR PRN Dyspepsia Hydralazine HCl 75 mg 09/06/23 17:00 09/07/23 08:03 Hydralazine Hcl 50 Mg Tab PO 75 mg QID@,, GURDEEP Administration Furosemide 100 mg/ Sodium 100 mls @ 10 mls/hr 09/06/23 13:45 09/07/23 09:37 Chloride IV 10 mg/hr .Q10H GURDEEP 10 mls/hr Administration 10 MG/HR Lactulose 20 gm 09/06/23 13:32 Lactulose 20 Gm/30 Ml Cup PO DAILY PRN Constipation Levothyroxine Sodium 25 mcg 09/07/23 06:30 09/07/23 05:55 Levothyroxine 25 Mcg Tab PO 25 mcg DAILY@0630 GURDEEP Administration Loratadine 5 mg 09/07/23 09:00 09/07/23 08:02 Loratadine 10 Mg Tab PO 5 mg DAILY GURDEEP Administration Magnesium Oxide 400 mg 09/07/23 09:00 09/07/23 08:02 Magnesium Oxide 400 Mg Tab PO 400 mg DAILY GURDEEP Administration Melatonin 3 mg 09/06/23 13:32 Melatonin 3 Mg Tablet PO HS PRN Insomnia Metoprolol Tartrate 50 mg 09/06/23 21:00 09/07/23 08:03 Metoprolol Tartrate 50 Mg Tab PO 50 mg BID GURDEEP Administration Morphine Sulfate 30 mg 09/06/23 21:00 09/07/23 08:04 Morphine Sulfate Er 30 Mg Tablet PO 30 mg Q12HR GURDEEP Administration Protocol Naloxone HCl 0.2 mg 09/06/23 13:32 Naloxone 0.4 Mg/Ml 1 Ml Vial IV Q2M PRN Opioid Reversal Liraglutide [Victoza 1.8 mg 09/07/23 09:00 09/07/23 09:20 3-Sam] 0.6 Mg/0.1 SQ Not Given Ml Ml DAILY GURDEEP Ondansetron HCl 4 mg 09/06/23 13:32 Ondansetron 4 Mg/2 Ml Vial IVP Q8HR PRN Nausea And Vomiting Pantoprazole Sodium 40 mg 09/06/23 17:00 09/07/23 08:08 Pantoprazole 40 Mg Tablet PO 40 mg AC-BID@0800,1700 GURDEEP Administration Senna/Docusate Sodium 1 each 09/06/23 21:00 09/07/23 08:02 Sennosides-Docusate Sodium 1 Each Tab PO 1 each BID GURDEEP Administration Tamsulosin HCl 0.4 mg 09/07/23 09:00 09/07/23 08:02 Tamsulosin 0.4 Mg Cap.Er.24h PO 0.4 mg DAILY GURDEEP Administration Intake and Output 09/06/23 09/07/23 09/07/23 22:59 06:59 14:59 Intake Total 1414.167 480 218 Output Total 1650 800 Balance -235.833 -320 218 Intake: IV 10 Invasive Line 1 10 Intake, IV Titration 84.167 100 Amount Furosemide 100 mg In 84.167 100 Sodium Chloride 0.9% 90 ml @ 10 MG/HR 10 mls/hr IV .Q10H [facility] Rx#: [id number] Oral 1320 480 118 Output: Urine 1650 800 Other: Voiding Method Indwelling Catheter Indwelling Catheter Indwelling Catheter Weight 89 kg 09/06/23 10:01 09/07/23 07:42
--- NOTE | 2023-09-07 11:24 | P.NPCON ---
History of Present Illness - Reason for Consult chronic renal failure - History of Present Illness Reason for consultation: Chronic kidney disease History of present illness: Patient is a 73-year-old male seen in renal consultation for chronic kidney disease. Patient has chronic kidney disease stage IIIB with baseline creatinine 1.5-1.7 secondary to diabetic kidney disease and cardiorenal syndrome. Patient came to the hospital due to shortness of breath going on for the last few days. He also states he had weeping wounds from his lower extremity. He is currently on Lasix drip and is nonoliguric. Patient has history of lymphoma and states he underwent 1 treatment of radiation. Patient also was recently diagnosed with urothelial carcinoma but states he hasn't been treated for that as of yet. Patient also has right-sided hydronephrosis and has been evaluated by urology in the past. Patient has history of coronary artery disease with cardiac stents. He also has long-standing history of diabetes mellitus. He denies use of nonsteroidals. Denies chest pain. Renal function stable. Creatinine 1.79. Urine output over 3-1/2 L in the last 24 hours. Patient has a [place] catheter. Hemodynamically stable. Vital signs are stable. General: No acute distress. HEENT: Head exam is unremarkable. On nasal cannula. LUNGS: No audible rhonchi or wheezes. HEART: Rate and Rhythm are regular. ABDOMEN: Nontender. EXTREMITITES: 2+ edema. Past Medical History Past Medical History: Coronary Artery Disease (CAD), Cancer, Diabetes Mellitus, Hyperlipidemia, Hypertension, Myocardial Infarction (MD), Osteoarthritis (OA) Additional Past Medical History / Comment(s): Bladder cancer stage with treatment, in remission since 2020. IDDM type II, post polio syndrome,leg length discrepancy, bronchitis, chronic low back pain. Last Myocardial Infarction Date:: 07/23/19 History of Any Multi-Drug Resistant Organisms: None Reported Past Surgical History: Heart Catheterization With Stent, Orthopedic Surgery Additional Past Surgical History / Comment(s): Cystoscopy, TURBT x2, closure of patent urachus bladder tumor as , R leg surgery d/t polio-lengthening, cardiac stents 2018; Right hip surgery 11/03/2022 Past Anesthesia/Blood Transfusion Reactions: No Reported Reaction Date of Last Stent Placement:: 07/23/19 Past Psychological History: No Psychological Hx Reported Smoking Status: Former smoker Past Alcohol Use History: None Reported Past Drug Use History: None Reported - Past Family History Father History Unknown: Yes Mother Additional Family Medical History / Comment(s): Mother of in a MVA when pt was 15 yrs old. Brother(s) Additional Family Medical History / Comment(s): Pt has one brother who of a bowel problem and another brother that of a ruptured aneurysm. Medications and Allergies Home Medications Medication Instructions Recorded Confirmed Type Aspirin 81 mg PO DAILY #90 chewable 07/25/19 09/06/23 Rx Atorvastatin [Lipitor] 80 mg PO DAILY 05/13/20 09/06/23 History Liraglutide [Victoza 3-Sam] 1.8 mg SQ DAILY 08/04/23 09/06/23 History Apixaban [Eliquis] 5 mg PO BID #60 tab 08/10/23 09/06/23 Rx Magnesium Oxide [Mag-Ox] 400 mg PO DAILY #30 tab 08/10/23 09/06/23 Rx Metoprolol Tartrate [Lopressor] 50 mg PO BID #60 tab 08/10/23 09/06/23 Rx amLODIPine [Norvasc] 10 mg PO DAILY #30 tab 08/10/23 09/06/23 Rx Albuterol Sulfate [Albuterol 1 puff INHALATION RT-Q4H PRN 08/17/23 09/06/23 History Sulfate Hfa] Calcium Carb-Vit D 500Mg-5Mcg 1 tab PO DAILY 08/17/23 09/06/23 History [Oscal 500+D 5 Mcg (200 Iu)] Acetaminophen Tab [Tylenol] 650 mg PO Q6HR PRN tab 08/31/23 09/06/23 Rx Furosemide [Lasix] 40 mg PO BID #60 tablet 08/31/23 09/06/23 Rx Levothyroxine Sodium [Synthroid] 25 mcg PO DAILY@0630 #30 tab 08/31/23 09/06/23 Rx Loratadine [Claritin] 5 mg PO DAILY #30 tab 08/31/23 09/06/23 Rx Tamsulosin [Flomax] 0.4 mg PO DAILY #30 cap 08/31/23 09/06/23 Rx Budesonide/Formoterol Fumarate 1 puff INHALATION RT-BID 09/06/23 09/06/23 History [Symbicort 80-4.5 Mcg Inhaler] HYDROcodone/APAP 7.5-325MG [[place] 1 tab PO Q4H PRN 09/06/23 09/06/23 History 7.5-325] Ipratropium-Albuterol Nebulize 3 ml INHALATION RT-TID@08,14,09/06/23 09/06/23 History [Duoneb 0.5 mg-3 mg/3 ml Soln] Morphine Sulfate ER [Ms Contin] 30 mg PO Q12HR 09/06/23 09/06/23 History Pantoprazole [Protonix] 40 mg PO AC-BID@0800,1700 09/06/23 09/06/23 History Sennosides/Docusate Sodium 1 tab PO BID 09/06/23 09/06/23 History [Senna-S 8.6-50 mg Tablet] hydrALAZINE HCL [Apresoline] 75 mg PO QID@08,,,09/06/23 09/06/23 History Allergies Allergy/AdvReac Type Severity Reaction Status Date / Time No Known Allergies Allergy Verified 09/06/23 09:44 Physical Exam Vitals: Vital Signs Temp Pulse Pulse Pulse Resp BP BP 09/07/23 08:36 80 09/07/23 08:23 78 09/07/23 08:00 98.3 F 74 17 155/67 09/07/23 03:20 98.2 F 65 18 137/62 09/07/23 00:00 73 18 134/57 09/06/23 22:22 80 09/06/23 22:09 80 09/06/23 20:00 98.2 F 80 16 140/65 09/06/23 16:52 72 15 140/63 09/06/23 14:09 82 09/06/23 13:49 09/06/23 13:32 98.3 F 72 18 172/73 09/06/23 13:27 98.3 F 72 17 172/73 09/06/23 13:10 87 18 159/75 09/06/23 12:00 82 18 160/74 Pulse Ox 09/07/23 08:36 09/07/23 08:23 09/07/23 08:00 94 L 09/07/23 03:20 95 09/07/23 00:00 96 09/06/23 22:22 09/06/23 22:09 95 09/06/23 20:00 95 09/06/23 16:52 97 09/06/23 14:09 09/06/23 13:49 97 09/06/23 13:32 97 09/06/23 13:27 97 09/06/23 13:10 98 09/06/23 12:00 97 Intake and Output 09/06/23 09/07/23 09/07/23 22:59 06:59 14:59 Intake Total 1414.167 480 218 Output Total 1650 800 Balance -235.833 -320 218 Intake: IV 10 Invasive Line 1 10 Intake, IV Titration 84.167 100 Amount Furosemide 100 mg In 84.167 100 Sodium Chloride 0.9% 90 ml @ 10 MG/HR 10 mls/hr IV .Q10H [facility] Rx#: [id number] Oral 1320 480 118 Output: Urine 1650 800 Other: Voiding Method Indwelling Catheter Indwelling Catheter Indwelling Catheter Weight 89 kg Results - Lab Results Most recent lab results Calcium 8.2 mg/dL (8.4-10.2) L 09/07/23 07:42 Magnesium 1.8 mg/dL (1.6-2.3) 09/07/23 07:42 09/06/23 10:01 09/07/23 07:42 Assessment and Plan Plan: Assessment: 1. Chronic kidney disease stage IIIB with baseline creatinine 1.5-1.7 secondary to diabetic kidney disease and cardiorenal syndrome. GFR near baseline. Ultrasound from 08/25/2023 showed moderate right-sided hydronephrosis. 2. Acute on chronic diastolic CHF. 3. Volume overload. 4. Hypertension with chronic kidney disease. 5. Diabetes mellitus. 6. Coronary artery disease with prior stents. 7. Lymphoma as well as urothelial cancer. Oncology as well as radiation oncology consulted. Plan: Maintain Lasix drip. Add metolazone 5 mg once daily. Low-salt diet and 1500 mL fluid restriction. Avoid nephrotoxins. Continue to monitor renal function and urine output. Thank you for the consultation. I will continue to follow the patient with you during his hospital stay.
[2023-09-07 11:25] LABS: Glucose,Whole Blood 175 mg/dL (70-110)
[2023-09-07 11:48] VITALS: BMI 29.8
[2023-09-07] MEDS: metOLazone 5 MG TAB PO SCH (11:51)
[2023-09-07] MEDS ORDERED: NITROGLYCERIN OINT 1 INCH/GM PACKET TOPICAL SCH (13:00)
[2023-09-07] MEDS: Liraglutide [Victoza 3-Pak] 0.6 MG/0.1 ML Ml SQ SCH (14:38)
[2023-09-07 16:26] LABS: Glucose,Whole Blood 171 mg/dL (70-110)
--- NOTE | 2023-09-07 18:32 | P.CONS ---
History of Present Illness - Reason for Consult Consult date: 09/07/23 hx metastatic urothelial cancer Requesting physician: Lane Vergara - Chief Complaint SOB, BLE edema - History of Present Illness Patient is a 72 year old male with a significant hx of metastatic urothelial carcinoma. He is a patient of Dr. Banda. He initially presented with gross hematuria following following start of Plavix after PTCA and coronary stents placement by Dr Pennington in Aug 2019. He was referred to Dr Myers and had cystoscopy on 12/15/19 revealing high-grade urothelial carcinoma. The patient was evaluated by Dr Rosado at [facility] and Cystoscopy and TURBT on 03/03/20 revealing 3X3 cm urothelial carcinoma with Papillary features and clear cell component ( 20-30%). CT Scan of CAP did not identify systemic disease or gross pelvic lymphadenopathy. He was re-evaluated by Dr Rosado and Dr Beltrán, given option of radical cystectomy V/S concurrent radiation therapy/Chemotherapy, which he opted for. Patient completed concurrent chemo/RT, with cisplatin/taxol in 06/2020. He continued f/u and repeat scans and cystoscopy/biopsies were negative and at last f/u in 11/2021, he was scheduled for repeat CAP and f/u with Dr. Rosado for repeat cystoscopy for 02/2022. He reports scan and scope was negative and then lost f/u with Dr. Rosado due to loss of his insurance and has not had f/u since. Patient was recently admitted to the hospital and was discharged on 08/10 for left sided neck mass, EDITH, and A-fib rvr. Patient reported progressing left neck mass over the last 1 month, with associated loss of appetite. Denied weight loss and night sweats. Biopsy of left neck mass was obtained during that admission revealing metastatic non-small cell carcinoma consistent with metastatic high-grade urothelial carcinoma. He was readmitted with complaints of left upper extremity edema and bilateral lower extremity edema and was treated for CHF and LUE DVT. Upon discharge patient began palliative RT to left neck mass with Dr. Juarez, and had 1 fraction. He has yet to reestablish care within our clinic, as 2 f/u appts have been canceled due to repeat hospitalizations. PET CT scheduled for 09/20. Patient presented to the ER for worsening BLE edema. He has continued on lasix upon discharge. He reports increasing BLE swelling making it difficult to ambulate. Patient's called his ornament stitcher to ask for an increase in his Lasix but presented to the ER prior to hearing back due to symptom progression. Patient reports persisting shortness of breath and cough but denies acute changes. Denies chest pain and dizziness. Denies nausea vomiting. Denies fever chills. On admission chest x-ray revealed increased density in the left lower lobe. Patient afebrile. WBC 10.2, hemoglobin 10.2, platelets 220,000. Creatinine 1.79. BNP 2200 Review of Systems 10 point ROS is negative except as stated in the HPI Past Medical History Past Medical History: Coronary Artery Disease (CAD), Cancer, Diabetes Mellitus, Hyperlipidemia, Hypertension, Myocardial Infarction (LA), Osteoarthritis (OA) Additional Past Medical History / Comment(s): Bladder cancer stage with treatment, in remission since 2020. IDDM type II, post polio syndrome,leg length discrepancy, bronchitis, chronic low back pain. Last Myocardial Infarction Date:: 07/23/19 History of Any Multi-Drug Resistant Organisms: None Reported Past Surgical History: Heart Catheterization With Stent, Orthopedic Surgery Additional Past Surgical History / Comment(s): Cystoscopy, TURBT x2, closure of patent urachus bladder tumor as infant, R leg surgery d/t polio-lengthening, cardiac stents 2018; Right hip surgery 11/03/2022 Past Anesthesia/Blood Transfusion Reactions: No Reported Reaction Date of Last Stent Placement:: 07/23/19 Past Psychological History: No Psychological Hx Reported Smoking Status: Former smoker Past Alcohol Use History: None Reported Past Drug Use History: None Reported - Past Family History Father History Unknown: Yes Mother Additional Family Medical History / Comment(s): Mother of in a MVA when pt was 15 yrs old. Brother(s) Additional Family Medical History / Comment(s): Pt has one brother who of a bowel problem and another brother that of a ruptured aneurysm. Medications and Allergies Home Medications Medication Instructions Recorded Confirmed Type Aspirin 81 mg PO DAILY #90 chewable 07/25/19 09/06/23 Rx Atorvastatin [Lipitor] 80 mg PO DAILY 05/13/20 09/06/23 History Liraglutide [Victoza 3-Sam] 1.8 mg SQ DAILY 08/04/23 09/06/23 History Apixaban [Eliquis] 5 mg PO BID #60 tab 08/10/23 09/06/23 Rx Magnesium Oxide [Mag-Ox] 400 mg PO DAILY #30 tab 08/10/23 09/06/23 Rx Metoprolol Tartrate [Lopressor] 50 mg PO BID #60 tab 08/10/23 09/06/23 Rx amLODIPine [Norvasc] 10 mg PO DAILY #30 tab 08/10/23 09/06/23 Rx Albuterol Sulfate [Albuterol 1 puff INHALATION RT-Q4H PRN 08/17/23 09/06/23 History Sulfate Hfa] Calcium Carb-Vit D 500Mg-5Mcg 1 tab PO DAILY 08/17/23 09/06/23 History [Oscal 500+D 5 Mcg (200 Iu)] Acetaminophen Tab [Tylenol] 650 mg PO Q6HR PRN tab 08/31/23 09/06/23 Rx Furosemide [Lasix] 40 mg PO BID #60 tablet 08/31/23 09/06/23 Rx Levothyroxine Sodium [Synthroid] 25 mcg PO DAILY@0630 #30 tab 08/31/23 09/06/23 Rx Loratadine [Claritin] 5 mg PO DAILY #30 tab 08/31/23 09/06/23 Rx Tamsulosin [Flomax] 0.4 mg PO DAILY #30 cap 08/31/23 09/06/23 Rx Budesonide/Formoterol Fumarate 1 puff INHALATION RT-BID 09/06/23 09/06/23 History [Symbicort 80-4.5 Mcg Inhaler] HYDROcodone/APAP 7.5-325MG [[place] 1 tab PO Q4H PRN 09/06/23 09/06/23 History 7.5-325] Ipratropium-Albuterol Nebulize 3 ml INHALATION RT-TID@08,14,21 09/06/23 09/06/23 History [Duoneb 0.5 mg-3 mg/3 ml Soln] Morphine Sulfate ER [Ms Contin] 30 mg PO Q12HR 09/06/23 09/06/23 History Pantoprazole [Protonix] 40 mg PO AC-BID@0800,1700 09/06/23 09/06/23 History Sennosides/Docusate Sodium 1 tab PO BID 09/06/23 09/06/23 History [Senna-S 8.6-50 mg Tablet] hydrALAZINE HCL [Apresoline] 75 mg PO QID@08,12,17,09/06/23 09/06/23 History Allergies Allergy/AdvReac Type Severity Reaction Status Date / Time No Known Allergies Allergy Verified 09/06/23 09:44 Physical Exam Vitals: Vital Signs Temp Pulse Pulse Pulse Resp BP BP 09/07/23 08:36 80 09/07/23 08:23 78 09/07/23 08:00 98.3 F 74 17 155/67 09/07/23 03:20 98.2 F 65 18 137/62 09/07/23 00:00 73 18 134/57 09/06/23 22:22 80 09/06/23 22:09 80 09/06/23 20:00 98.2 F 80 16 140/65 09/06/23 16:52 72 15 140/63 09/06/23 14:09 82 09/06/23 13:49 09/06/23 13:32 98.3 F 72 18 172/73 09/06/23 13:27 98.3 F 72 17 172/73 09/06/23 13:10 87 18 159/75 09/06/23 12:00 82 18 160/74 09/06/23 11:12 89 18 137/63 Pulse Ox 09/07/23 08:36 09/07/23 08:23 09/07/23 08:00 94 L 09/07/23 03:20 95 09/07/23 00:00 96 09/06/23 22:22 09/06/23 22:09 95 09/06/23 20:00 95 09/06/23 16:52 97 09/06/23 14:09 09/06/23 13:49 97 09/06/23 13:32 97 09/06/23 13:27 97 09/06/23 13:10 98 09/06/23 12:00 97 09/06/23 11:12 97 Intake and Output 09/06/23 09/07/23 09/07/23 22:59 06:59 14:59 Intake Total 1414.167 480 218 Output Total 1650 800 Balance -235.833 -320 218 Intake: IV 10 Invasive Line 1 10 Intake, IV Titration 84.167 100 Amount Furosemide 100 mg In 84.167 100 Sodium Chloride 0.9% 90 ml @ 10 MG/HR 10 mls/hr IV .Q10H [facility] Rx#: [id number] Oral 1320 480 118 Output: Urine 1650 800 Other: Voiding Method Indwelling Catheter Indwelling Catheter Indwelling Catheter Weight 89 kg - Constitutional General appearance: no acute distress, obese - EENT Eyes: anicteric sclerae, EOMI ENT: hearing grossly normal - Neck left sided neck mass - Respiratory Respiratory: right: CTA, left: diminished - Cardiovascular Rhythm: regular Heart sounds: normal: S1, S2 leg Peripheral Edema: right: 1+, Pitting, left: 2+, Other (LUE Edema ) - Gastrointestinal General gastrointestinal: soft, no tenderness - Integumentary Integumentary: no cyanotic - Musculoskeletal Musculoskeletal: generalized weakness - Psychiatric Psychiatric: A&O x's 3 Results CBC & Chem 7: 09/06/23 10:01 09/07/23 07:42 Labs: Abnormal Lab Results - Last 24 Hours (Table) 09/06/23 09/06/23 09/06/23 Range/Units 10:50 13:31 16:12 Sodium (137-145) mmol/L Potassium 5.2 H (3.5-5.1) mmol/L BUN 44 H (9-20) mg/dL Creatinine 1.74 H (0.66-1.25) mg/dL Glucose 214 H (74-99) mg/dL POC Glucose (mg/dL) 213 H 181 H (70-110) mg/dL Calcium (8.4-10.2) mg/dL Total Protein 5.9 L (6.3-8.2) g/dL Albumin 3.2 L (3.5-5.0) g/dL 09/06/23 09/07/23 09/07/23 Range/Units 19:27 05:57 07:42 Sodium 135 L (137-145) mmol/L Potassium (3.5-5.1) mmol/L BUN 40 H (9-20) mg/dL Creatinine 1.79 H (0.66-1.25) mg/dL Glucose 136 H (74-99) mg/dL POC Glucose (mg/dL) 245 H 142 H (70-110) mg/dL Calcium 8.2 L (8.4-10.2) mg/dL Total Protein (6.3-8.2) g/dL Albumin (3.5-5.0) g/dL Chest x-ray: report reviewed Assessment and Plan (1) Dyspnea Current Visit: Yes Status: Acute Priority: High Code(s): R06.00 - DYSPNEA, UNSPECIFIED SNOMED Code(s): 045632773 (2) Pleural effusion Current Visit: Yes Status: Acute Priority: High Code(s): J90 - PLEURAL EFFUSION, NOT ELSEWHERE CLASSIFIED SNOMED Code(s): 37828732 (3) Metastatic urothelial carcinoma Current Visit: Yes Status: Acute Priority: High Code(s): C79.10 - SECONDAR Y MALIGNANT NEOPLASM OF UNSPECIFIED URINARY ORGANS SNOMED Code(s): 20093189 (4) CHF (congestive heart failure) Current Visit: Yes Status: Acute Priority: High Code(s): I50.9 - HEART FAILURE, UNSPECIFIED SNOMED Code(s): 63283902 Plan: Metastatic urothelial carcinoma: -Full history as stated in HPI -Completed treatment with concurrent chemo/RT in 06/2020. Was following up for observation in clinic through 11/2021 with no evidence of recurrence. Stopped f/u with urology in February 2022 due to insurance reasons, and has not had f/u since -Progressing left neck mass. Biopsy of the lt neck mass last month revealed metastatic non-small cell carcinoma consistent with metastatic high-grade urothelial carcinoma. -Following with Dr. Juarez. Completed 1 fraction of palliative RT to left neck mass on 09/05. -He has yet to reestablish care within our clinic, as his 2 f/u appts have been canceled due to repeat hospitalizations. PET CT rescheduled for 09/20. -Discussed with patient that his current PS is poor, and that he would not be a great candidate for systemic treatment at this time. He will need to get stronger and have close f/u with cardiology to have better control of his CHF -Will continue to monitor patient's progress and clinic f/u will be scheduled upon discharge to further discuss treatment options and goals of care CHF: -Continues on diuretics -Cardiology following Dr. schofieldests: I have seen and examined patient, performed H&P, developed impression and plan of care. Discussed with dictator. Agree with documentation, dictated as a scribe.
--- NOTE | 2023-09-07 19:18 | P.PN ---
Progress Note - Text Progress Note Date: 09/07/23 Chief Complaint: Shortness of breath Pleasant 73-year-old patient who follows with Dr. Johnny Rubio./Mid-level provider-Kareen. Chronic stable medical conditions include CAD with stent in 2018, diabetes, hypertension, hyperlipidemia, osteoporosis, bladder cancer with treatment was in remission and cystoscopy 2020, was admitted to the hospital in August 04 of the left neck mass. -Metastatic urothelial carcinoma:Completed treatment with concurrent chemo/RT in 06/2020. Was following up for observation in clinic through 11/2021 with no evidence of recurrence. Stopped f/u with urology in February 2022 due to insurance reasons, Biopsy - metastatic non-small cell carcinoma consistent with metastatic high- grade urothelial carcinoma. . Patient also developed DVT in the left cephalic vein and DVT in the internal jugular vein. Patient spending outpatient PET scan. Also had an episode of coffee-ground emesis. Had EGD. Showed that his esophagus and esophagitis. Put on PPI. Patient also treated with Diflucan for thrush. Also was found to have gallstones and right hydronephrosis.-Mild. Also was treated for diastolic CHF exacerbation. Patient started on radiation treatment this Sunday. With Dr. Johnny Juarez. Patient now presents to the ER accompanied by his . Increasing short of breath in the last few days. Had to sleep in a recliner. Increasing lower extremity edema. Bruising. Shortness of breath. No chest pain. Admitted with CHF exacerbation. Appetite has gone down September 07: She has been on IV Lasix drip. About 1400s negative fluid balance. Appetite some improvement. Discussed with patient and at the bedside. Continue dialysis. Zaroxolyn 5 mg daily added. Active Medications Acetaminophen (Acetaminophen Tab 325 Mg Tab) 650 mg PO Q6HR PRN PRN Reason: Mild Pain or Fever > 100.5 Hydrocodone Bitart/Acetaminophen (Hydrocodone/Apap 7.5-325mg 1 Each Tab) 1 each PO Q4H PRN PRN Reason: Pain Last Admin: 09/07/23 14:44 Dose: 1 each Albuterol Sulfate (Albuterol Hfa Inhaler) 1 puff INHALATION RT-Q4H PRN PRN Reason: Shortness Of Breath Albuterol/Ipratropium (Ipratropium-Albuterol 3 Ml Neb) 3 ml INHALATION RT- TID@08,14, [facility] Last Admin: 09/07/23 13:23 Dose: 3 ml Amlodipine Besylate (Amlodipine 10 Mg Tab) 10 mg PO DAILY [facility] Last Admin: 09/07/23 08:03 Dose: 10 mg Apixaban (Apixaban 5 Mg Tab) 5 mg PO BID [facility]; Protocol Last Admin: 09/07/23 08:03 Dose: 5 mg Aspirin (Aspirin 81 Mg) 81 mg PO DAILY [facility] Last Admin: 09/07/23 08:03 Dose: 81 mg Atorvastatin Calcium (Atorvastatin 80 Mg Tab) 80 mg PO DAILY [facility] Last Admin: 09/07/23 08:03 Dose: 80 mg Budesonide/Formoterol Fumarate (Symbicort 80-4.5 Mcg Inhaler) 1 puff INHALATION RT-BID [facility] Last Admin: 09/07/23 08:23 Dose: 1 puff Calcium Carbonate (Calcium Carb-Vit D 500 Mg-5 Mcg Tab) 1 each PO DAILY [facility] Last Admin: 09/07/23 08:03 Dose: 1 each Calcium Carbonate/Glycine (Calcium Carbonate 500 Mg Chewable) 1,000 mg PO Q4HR PRN PRN Reason: Dyspepsia Hydralazine HCl (Hydralazine Hcl 50 Mg Tab) 75 mg PO QID@,,, [facility] Last Admin: 09/07/23 16:28 Dose: 75 mg Furosemide 100 mg/ Sodium (Chloride) 100 mls @ 10 mls/hr IV .Q10H [facility] Last Admin: 09/07/23 09:37 Dose: 10 mg/hr, 10 mls/hr Lactulose (Lactulose 20 Gm/30 Ml Cup) 20 gm PO DAILY PRN PRN Reason: Constipation Levothyroxine Sodium (Levothyroxine 25 Mcg Tab) 25 mcg PO DAILY@0630 [facility] Last Admin: 09/07/23 05:55 Dose: 25 mcg Loratadine (Loratadine 10 Mg Tab) 5 mg PO DAILY [facility] Last Admin: 09/07/23 08:02 Dose: 5 mg Magnesium Oxide (Magnesium Oxide 400 Mg Tab) 400 mg PO DAILY [facility] Last Admin: 09/07/23 08:02 Dose: 400 mg Melatonin (Melatonin 3 Mg Tablet) 3 mg PO HS PRN PRN Reason: Insomnia Metolazone (Metolazone 5 Mg Tab) 5 mg PO DAILY [facility] Last Admin: 09/07/23 11:51 Dose: 5 mg Metoprolol Tartrate (Metoprolol Tartrate 50 Mg Tab) 50 mg PO BID [facility] Last Admin: 09/07/23 08:03 Dose: 50 mg Morphine Sulfate (Morphine Sulfate Er 30 Mg Tablet) 30 mg PO Q12HR [facility]; Protocol Last Admin: 09/07/23 08:04 Dose: 30 mg Naloxone HCl (Naloxone 0.4 Mg/Ml 1 Ml Vial) 0.2 mg IV Q2M PRN PRN Reason: Opioid Reversal Liraglutide [Victoza 3-Sam] 0.6 Mg/0.1 Ml Ml 1.8 mg SQ DAILY [facility] Last Admin: 09/07/23 14:38 Dose: 1.8 mg Ondansetron HCl (Ondansetron 4 Mg/2 Ml Vial) 4 mg IVP Q8HR PRN PRN Reason: Nausea And Vomiting Pantoprazole Sodium (Pantoprazole 40 Mg Tablet) 40 mg PO AC-BID@0800,1700 [facility] Last Admin: 09/07/23 16:28 Dose: 40 mg Senna/Docusate Sodium (Sennosides-Docusate Sodium 1 Each Tab) 1 each PO BID [facility] Last Admin: 09/07/23 08:02 Dose: 1 each Tamsulosin HCl (Tamsulosin 0.4 Mg Cap.Er.24h) 0.4 mg PO DAILY [facility] Last Admin: 09/07/23 08:02 Dose: 0.4 mg Social history: Used to work in a [employer]. . 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 Patient Smoked for 50 Years Stopped in 2019. Drinking Excessive Alcohol up to 2019. Physical examination: VITAL SIGNS: Afebrile, 72, 15, 137 message 2, 95% on 2 L GENERAL: Propped up in bed, slightly less short of breath EYES: Pupils equal. Conjunctiva normal. HEENT: External appearance of nose and ears normal, oral cavity grossly normal. NECK: JVD possibly raised; masses not palpable. Hard mass of the left upper neck going to the mandible. Hard. HEART: Heart sounds irregular; edema present LUNGS: Respiratory rate increased; decreased breath sounds. ABDOMEN: Soft, nontender, liver spleen not palpable, no masses palpable. PSYCH: Alert and oriented x3; mood and affect with anxious EXTREMITY: Left upper extremity swelling compared to the right. In a sleeve MUSCULOSKELETAL:No Clubbing/cyanosis;muscles-grossly intact. OA NEUROLOGICAL: Some facial asymmetry secondary to left neck mass. Otherwise cranial nerves grossly intact. Bun and sensation grossly intact INVESTIGATIONS, reviewed in the clinical context: September 07: Potassium 4.6. 4 Dr[address] Basilio 1.79 September 06: White count 10.2 hemoglobin 10.2 platelets 220 sodium 137 potassium 5.2 BUN 44 creatinine 1.74 EKG tracing personally reviewed by me-normal sinus rhythm. Chest x-ray film personally reviewed by me-left pleural effusion. Recent investigations: August 31: Potassium 4.2 creatinine 1.97 EGD: Legionnaire erosions distal esophagus LA grade B reflux esophagitis.. Barium swallow with redo: Transient penetration with thin liquids. No aspiration. Ultrasound Doppler of the left upper extremity: Non occlusive DVT in the eye JVD. Superficial thrombosis within the left cephalic vein. 2-D echocardiogram: Preserved LV function. Mild inferior septal hypokinesis. CT soft tissue neck without contrast: Enlargement of the left parotid gland with surrounding the inflammatory attenuation as well as skeletal thinking. Also inflammatory thickening of the left sternocleidomastoid musculature. Surrounding reactive adenopathy. No obstructing Loss. CT chest abdomen pelvis: Small bowel guarded to 3 cm. Mild right-sided hydronephrosis. Gallstones Ultrasound kidney: Mild right-sided hydronephrosis. Assessment: -Acute on chronic congestive heart exacerbation from diastolic dysfunction 50- 55%.: Slow to respond IV Lasix drip at 10 mg hour. Zaroxolyn 5 mg daily added Strict I's and O's. Cardiology following fluid restriction 1500 mL a day -Chronic kidney disease likely hydronephrosis secondary cardiorenal syndrome. Along with Right-sided hydronephrosis. Strict I's and O's. Nephrology following -Chronic Esophagitis and Otoole's esophagus, recent EGD PPI Was previously seen Seen by Dr. Thuan Mart -COPD in a prior smoker: DuoNeb. Symbicort Paroxysmal atrial fibrillation - sinus rhythm Lopressor 50 mg twice a day Eliquis -Essential hypertension Lopressor 50 mg twice a day. Amlodipine 10 mg a day Hydralazine 75 mg 4 times a day -Mild hydronephrosis-right For further workup outpatient with urology -Metastatic urothelial carcinoma: -Completed treatment with concurrent chemo/RT in 06/2020. Was following up for observation in clinic through 11/2021 with no evidence of recurrence. Stopped f/u with urology in February 2022 due to insurance reasons, and has not had f/u since -Progressing left neck mass. Biopsy of the lt neck mass revealed metastatic non- small cell carcinoma consistent with metastatic high-grade urothelial carcinoma. Results were discussed with patient and spouse Consult Dr. 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 Superficial thrombosis within the left cephalic vein. Eliquis Sleeve left upper extremity Followed by Dr. Montalvo from vascular. -CAD with stent 2018 Aspirin. Coreg -Hyperlipidemia Lipitor -Diabetes mellitus type 2 on oral hypoglycemic Follow Accu-Cheks and sliding scale Victoza. -Full code. Continue Lasix drip. Zaroxolyn added. Follow labs. Discussed with patient and .
[2023-09-07 19:33] LABS: Glucose,Whole Blood 147 mg/dL (70-110)
[2023-09-08] MEDS: FUROSEMIDE 100 MG in SODIUM CHLORIDE 0.9% 90 ML IV SCH ×2 (04:20→10:47)
[2023-09-08] MEDS: HYDROcodone/APAP 7.5-325MG 1 EACH TAB PO PRN (05:45)
[2023-09-08 06:16] LABS: Glucose,Whole Blood 122 mg/dL (70-110)
[2023-09-08] MEDS: LEVOTHYROXINE 25 MCG TAB PO SCH (06:20)
[2023-09-08] MEDS: SYMBICORT 80-4.5 MCG INHALER INHALATION SCH ×2 (08:05→21:43)
[2023-09-08] MEDS: IPRATROPIUM-ALBUTEROL 3 ML NEB INHALATION SCH ×3 (08:05→21:43)
[2023-09-08 09:49] LABS: African American GFR (CKD) 42 (>60 ml/min/1.73 sqM); Anion Gap 12 mmol/L; Blood Urea Nitrogen 40 mg/dL (9-20); Calcium 8.4 mg/dL (8.4-10.2); Carbon Dioxide 29 mmol/L (22-30); Chloride 95 mmol/L (98-107); Glucose 101 mg/dL (74-99); Magnesium 1.7 mg/dL (1.6-2.3); Non-African American GFR(CKD) 36 (>60 ml/min/1.73 sqM); Potassium 4.5 mmol/L (3.5-5.1); Sodium 136 mmol/L (137-145)
[2023-09-08] MEDS: METOCLOPRAMIDE 5 MG/ML 2 ML VIAL IVP PRN (10:09)
[2023-09-08] MEDS: hydrALAZINE HCL 50 MG TAB PO SCH ×4 (10:53→21:46)
[2023-09-08] MEDS: MORPHINE SULFATE ER 30 MG TABLET PO SCH ×2 (10:57→21:42)
[2023-09-08] MEDS: PANTOPRAZOLE 40 MG TABLET PO SCH ×2 (10:58→16:57)
[2023-09-08] MEDS: APIXABAN 5 MG TAB PO SCH ×2 (10:58→21:47)
[2023-09-08] MEDS: amLODIPine 10 MG TAB PO SCH (10:58)
[2023-09-08] MEDS: METOPROLOL TARTRATE 50 MG TAB PO SCH ×2 (10:58→21:46)
[2023-09-08] MEDS: metOLazone 5 MG TAB PO SCH (10:58)
[2023-09-08] MEDS: Liraglutide [Victoza 3-Pak] 0.6 MG/0.1 ML Ml SQ SCH (11:02)
[2023-09-08 12:00] LABS: Glucose,Whole Blood 120 mg/dL (70-110)
--- NOTE | 2023-09-08 13:09 | P.PN ---
Subjective Progress Note Date: 09/08/23 This is Tristin Nowak NP, I'm dictating on behalf of Dr. Basilio's H&P and A&P. Patient was interviewed and examined. Patient is a pleasant 73-year-old male who came to the hospital with congestive heart failure. Patient reports that he is feeling about the same as yesterday. He is currently denying chest pain and shortness of breath, however is appreciating sudden onset of nausea and vomiting at about 10 PM last night. Patient was started on IV Zofran at that time which had little effect on the n ausea and vomiting, so this is been switched to Compazine. At the time of my exam the patient has a normal heart rate and his lungs are clear. He does have generalized peripheral lower extremity edema in the bilateral lower extremities. GENERAL: Well-appearing, well-nourished and in no acute distress. NECK: Supple without JVD or thyromegaly. LUNGS: Breath sounds clear to auscultation bilaterally. Respiration equal and unlabored. No wheezes, rales or rhonchi. HEART: Regular rate and rhythm without murmurs, rubs or gallops. S1 and S2 heard. EXTREMITIES: Normal range of motion, generalized peripheral bilateral lower extremity edema. No clubbing or cyanosis. Peripheral pulses intact and strong. VITALS: Temp 98.6, pulse 95, respirations 20, blood pressure 142/69, O2 saturation 93% on 2 L TELEMETRY: Normal sinus rhythm LABS: Sodium 136, potassium 4.5, BUN 40, creatinine 1.84, magnesium 1.7 IMPRESSION: 1. Acute on chronic heart failure with preserved EF 2. Chronic kidney disease 3. COPD 4. Valvular heart disease 5. Hypertension 6. Hyperlipidemia 7. Carotid stenosis 8. Sudden onset nausea and vomiting PLAN: Discontinue IV Lasix. Start Lasix 80 mg by mouth twice a day. With the lack of further obvious causes, is felt that the IV Lasix may be contributing to the patient's nausea and vomiting. Continue Compazine until nausea and vomiting subside. Further recommendations based on patient's clinical course. Objective - Vital Signs Vital signs: Vital Signs Temp 98.6 F 09/08/23 10:52 Pulse 84 09/08/23 12:47 Resp 20 09/08/23 10:52 BP 142/69 09/08/23 10:52 Pulse Ox 93 L 09/08/23 10:52 FiO2 Intake & Output 09/07/23 09/08/23 09/08/23 18:59 06:59 18:59 Intake Total 1476 100 Output Total 1450 3350 700 Balance 26 -3250 -700 Weight 89 kg 65 kg Intake: Intake, IV Titration 100 100 Amount Furosemide 100 mg In 100 100 Sodium Chloride 0.9% 90 ml @ 10 MG/HR 10 mls/hr IV .Q10H [facility] Rx#: [id number] Oral 1376 Output: Urine 1450 3050 700 Emesis 300 Other: Voiding Method Indwelling Catheter Indwelling Catheter Indwelling Catheter - Labs CBC & Chem 7: 09/06/23 10:01 09/08/23 07:38 Labs: Abnormal Lab Results - Last 24 Hours (Table) 09/07/23 09/07/23 09/08/23 Range/Units 16:24 19:32 06:15 Sodium (137-145) mmol/L Chloride (98-107) mmol/L BUN (9-20) mg/dL Creatinine (0.66-1.25) mg/dL Glucose (74-99) mg/dL POC Glucose (mg/dL) 171 H 147 H 122 H (70-110) mg/dL 09/08/23 09/08/23 Range/Units 07:38 11:58 Sodium 136 L (137-145) mmol/L Chloride 95 L (98-107) mmol/L BUN 40 H (9-20) mg/dL Creatinine 1.84 H (0.66-1.25) mg/dL Glucose 101 H (74-99) mg/dL POC Glucose (mg/dL) 120 H (70-110) mg/dL
[2023-09-08] MEDS: LORATADINE 10 MG TAB PO SCH (13:13)
[2023-09-08] MEDS: ASPIRIN 81 MG PO SCH (13:13)
[2023-09-08] MEDS: ATORVASTATIN 80 MG TAB PO SCH (13:13)
[2023-09-08] MEDS: SENNOSIDES-DOCUSATE SODIUM 1 EACH TAB PO SCH ×2 (13:13→21:46)
[2023-09-08] MEDS: MAGNESIUM OXIDE 400 MG TAB PO SCH (13:13)
[2023-09-08] MEDS: CALCIUM CARB-VIT D 500 MG-5 MCG TAB PO SCH (13:14)
[2023-09-08] MEDS: TAMSULOSIN 0.4 MG CAP.ER.24H PO SCH (13:14)
[2023-09-08] MEDS ORDERED: FUROSEMIDE 10 MG/ML 10 ML VIAL IV STA (13:26)
--- NOTE | 2023-09-08 13:28 | P.PN ---
Progress Note - Text Progress Note Date: 09/08/23 Chief Complaint: Shortness of breath Pleasant 73-year-old patient who follows with Dr. Johnny Rubio./Mid-level provider-Kareen. Chronic stable medical conditions include CAD with stent in 2018, diabetes, hypertension, hyperlipidemia, osteoporosis, bladder cancer with treatment was in remission and cystoscopy 2020, was admitted to the hospital in August 04 of the left neck mass. -Metastatic urothelial carcinoma:Completed treatment with concurrent chemo/RT in 06/2020. Was following up for observation in clinic through 11/2021 with no evidence of recurrence. Stopped f/u with urology in February 2022 due to insurance reasons, Biopsy - metastatic non-small cell carcinoma consistent with metastatic high- grade urothelial carcinoma. . Patient also developed DVT in the left cephalic vein and DVT in the internal jugular vein. Patient spending outpatient PET scan. Also had an episode of coffee-ground emesis. Had EGD. Showed that his esophagus and esophagitis. Put on PPI. Patient also treated with Diflucan for thrush. Also was found to have gallstones and right hydronephrosis.-Mild. Also was treated for diastolic CHF exacerbation. Patient started on radiation treatment this Sunday. With Dr. Johnny Juarez. Patient now presents to the ER accompanied by his . Increasing short of breath in the last few days. Had to sleep in a recliner. Increasing lower extremity edema. Bruising. Shortness of breath. No chest pain. Admitted with CHF exacerbation. Appetite has gone down September 07: She has been on IV Lasix drip. About 1400s negative fluid balance. Appetite some improvement. Discussed with patient and at the bedside. Continue diuresis Zaroxolyn 5 mg daily added. September 08: Seen by cardiology earlier today. Swished over to oral Lasix. Patient still feels he's got a lot of fluids. In his legs. We'll give additional dose of IV Lasix. Breathing better. Active Medications Acetaminophen (Acetaminophen Tab 325 Mg Tab) 650 mg PO Q6HR PRN PRN Reason: Mild Pain or Fever > 100.5 Hydrocodone Bitart/Acetaminophen (Hydrocodone/Apap 7.5-325mg 1 Each Tab) 1 each PO Q4H PRN PRN Reason: Pain Last Admin: 09/08/23 05:45 Dose: 1 each Albuterol Sulfate (Albuterol Hfa Inhaler) 1 puff INHALATION RT-Q4H PRN PRN Reason: Shortness Of Breath Albuterol/Ipratropium (Ipratropium-Albuterol 3 Ml Neb) 3 ml INHALATION RT- TID@08,14,21 [facility] Last Admin: 09/08/23 12:34 Dose: 3 ml Amlodipine Besylate (Amlodipine 10 Mg Tab) 10 mg PO DAILY [facility] Last Admin: 09/08/23 10:58 Dose: 10 mg Apixaban (Apixaban 5 Mg Tab) 5 mg PO BID [facility]; Protocol Last Admin: 09/08/23 10:58 Dose: 5 mg Aspirin (Aspirin 81 Mg) 81 mg PO DAILY [facility] Last Admin: 09/08/23 13:13 Dose: 81 mg Atorvastatin Calcium (Atorvastatin 80 Mg Tab) 80 mg PO DAILY [facility] Last Admin: 09/08/23 13:13 Dose: 80 mg Budesonide/Formoterol Fumarate (Symbicort 80-4.5 Mcg Inhaler) 1 puff INHALATION RT-BID [facility] Last Admin: 09/08/23 08:05 Dose: 1 puff Calcium Carbonate (Calcium Carb-Vit D 500 Mg-5 Mcg Tab) 1 each PO DAILY [facility] Last Admin: 09/08/23 13:14 Dose: 1 each Calcium Carbonate/Glycine (Calcium Carbonate 500 Mg Chewable) 1,000 mg PO Q4HR PRN PRN Reason: Dyspepsia Furosemide (Furosemide 80 Mg Tab) 80 mg PO BID@0900,1600 [facility] Hydralazine HCl (Hydralazine Hcl 50 Mg Tab) 75 mg PO QID@08,12,17,22 [facility] Last Admin: 09/08/23 10:57 Dose: 75 mg Lactulose (Lactulose 20 Gm/30 Ml Cup) 20 gm PO DAILY PRN PRN Reason: Constipation Levothyroxine Sodium (Levothyroxine 25 Mcg Tab) 25 mcg PO DAILY@0630 [facility] Last Admin: 09/08/23 06:20 Dose: 25 mcg Loratadine (Loratadine 10 Mg Tab) 5 mg PO DAILY [facility] Last Admin: 09/08/23 13:13 Dose: 5 mg Magnesium Oxide (Magnesium Oxide 400 Mg Tab) 400 mg PO DAILY [facility] Last Admin: 09/08/23 13:13 Dose: 400 mg Melatonin (Melatonin 3 Mg Tablet) 3 mg PO HS PRN PRN Reason: Insomnia Metoclopramide HCl (Metoclopramide 5 Mg/Ml 2 Ml Vial) 10 mg IVP Q8HR PRN PRN Reason: Nausea And Vomiting Last Admin: 09/08/23 10:09 Dose: 10 mg Metolazone (Metolazone 5 Mg Tab) 5 mg PO DAILY [facility] Last Admin: 09/08/23 10:58 Dose: 5 mg Metoprolol Tartrate (Metoprolol Tartrate 50 Mg Tab) 50 mg PO BID [facility] Last Admin: 09/08/23 10:58 Dose: 50 mg Morphine Sulfate (Morphine Sulfate Er 30 Mg Tablet) 30 mg PO Q12HR [facility]; Protocol Last Admin: 09/08/23 10:57 Dose: 30 mg Naloxone HCl (Naloxone 0.4 Mg/Ml 1 Ml Vial) 0.2 mg IV Q2M PRN PRN Reason: Opioid Reversal Liraglutide [Victoza 3-Sam] 0.6 Mg/0.1 Ml Ml 1.8 mg SQ DAILY [facility] Last Admin: 09/08/23 11:02 Dose: 1.8 mg Pantoprazole Sodium (Pantoprazole 40 Mg Tablet) 40 mg PO AC-BID@0800,1700 [facility] Last Admin: 09/08/23 10:58 Dose: 40 mg Senna/Docusate Sodium (Sennosides-Docusate Sodium 1 Each Tab) 1 each PO BID [facility] Last Admin: 09/08/23 13:13 Dose: 1 each Tamsulosin HCl (Tamsulosin 0.4 Mg Cap.Er.24h) 0.4 mg PO DAILY [facility] Last Admin: 09/08/23 13:14 Dose: 0.4 mg Social history: Used to work in a [employer]. . 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 Patient Smoked for 50 Years Stopped in 2019. Drinking Excessive Alcohol up to 2019. Physical examination: VITAL SIGNS: 98.6, 95, 20, 1 42 x 16 9, 93% on 2 L GENERAL: Propped up in bed, more comfortable EYES: Pupils equal. Conjunctiva normal. HEENT: External appearance of nose and ears normal, oral cavity grossly normal. NECK: JVD possibly raised; masses not palpable. Hard mass of the left upper neck going to the mandible. Hard. HEART: Heart sounds irregular; edema present LUNGS: Respiratory rate increased; decreased breath sounds. ABDOMEN: Soft, nontender, liver spleen not palpable, no masses palpable. PSYCH: Alert and oriented x3; mood and affect with anxious EXTREMITY: Left upper extremity swelling compared to the right. In a sleeve MUSCULOSKELETAL:No Clubbing/cyanosis;muscles-grossly intact. OA NEUROLOGICAL: Some facial asymmetry secondary to left neck mass. Otherwise cranial nerves grossly intact. Bun and sensation grossly intact INVESTIGATIONS, reviewed in the clinical context: September 08: Potassium 4.5 creatinine 1.84 September 07: Potassium 4.6. 4 Dr. Basilio 1.79 September 06: White count 10.2 hemoglobin 10.2 platelets 220 sodium 137 potassium 5.2 BUN 44 creatinine 1.74 EKG tracing personally reviewed by me-normal sinus rhythm. Chest x-ray film personally reviewed by me-left pleural effusion. Recent investigations: August 31: Potassium 4.2 creatinine 1.97 EGD: Legionnaire erosions distal esophagus LA grade B reflux esophagitis.. Barium swallow with redo: Transient penetration with thin liquids. No aspiration. Ultrasound Doppler of the left upper extremity: Non occlusive DVT in the eye JVD. Superficial thrombosis within the left cephalic vein. 2-D echocardiogram: Preserved LV function. Mild inferior septal hypokinesis. CT soft tissue neck without contrast: Enlargement of the left parotid gland with surrounding the inflammatory attenuation as well as skeletal thinking. Also inflammatory thickening of the left sternocleidomastoid musculature. Surrounding reactive adenopathy. No obstructing Loss. CT chest abdomen pelvis: Small bowel guarded to 3 cm. Mild right-sided hydronephrosis. Gallstones Ultrasound kidney: Mild right-sided hydronephrosis. Assessment: -Acute on chronic congestive heart exacerbation from diastolic dysfunction 50- 55%.: Better IV Lasix drip at 10 mg hour-stopped. Zaroxolyn 5 mg daily added Strict I's and O's. Cardiology following fluid restriction 1500 mL a day Started on Lasix 80 mg twice a day -Chronic kidney disease likely hydronephrosis secondary cardiorenal syndrome. Along with Right-sided hydronephrosis. Strict I's and O's. Nephrology following -Chronic Esophagitis and Otoole's esophagus, recent EGD PPI Was previously seen Seen by Dr. Thuan Mart -COPD in a prior smoker: DuoNeb. Symbicort Paroxysmal atrial fibrillation - sinus rhythm Lopressor 50 mg twice a day Eliquis -Essential hypertension Lopressor 50 mg twice a day. Amlodipine 10 mg a day Hydralazine 75 mg 4 times a day -Mild hydronephrosis-right For further workup outpatient with urology -Metastatic urothelial carcinoma: -Completed treatment with concurrent chemo/RT in 06/2020. Was following up for observation in clinic through 11/2021 with no evidence of recurrence. Stopped f/u with urology in February 2022 due to insurance reasons, and has not had f/u since -Progressing left neck mass. Biopsy of the lt neck mass revealed metastatic non- small cell carcinoma consistent with metastatic high-grade urothelial carcinoma. Results were discussed with patient and spouse Consult Dr. 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 Superficial thrombosis within the left cephalic vein. Eliquis Sleeve left upper extremity Followed by Dr. Montalvo from vascular. -CAD with stent 2018 Aspirin. Coreg -Hyperlipidemia Lipitor -Diabetes mellitus type 2 on oral hypoglycemic Follow Accu-Cheks and sliding scale Victoza. -Full code. Per cardiology changed to oral Lasix. We will cut given a dose of 80 mg IV Lasix. Patient still. He has lot of fluid on board.
--- NOTE | 2023-09-08 14:25 | P.PN ---
Subjective Progress Note Date: 09/08/23 Follow-up for chronic kidney disease. Urine output of 4 L in the last 24 hours. Objective - Vital Signs Vital signs: Vital Signs Temp 98.6 F 09/08/23 10:52 Pulse 84 09/08/23 12:47 Resp 20 09/08/23 10:52 BP 142/69 09/08/23 10:52 Pulse Ox 93 L 09/08/23 10:52 FiO2 Intake & Output 09/07/23 09/08/23 09/08/23 18:59 06:59 18:59 Intake Total 1476 100 Output Total 1450 3350 700 Balance 26 -8590 -700 Weight 89 kg 65 kg Intake: Intake, IV Titration 100 100 Amount Furosemide 100 mg In 100 100 Sodium Chloride 0.9% 90 ml @ 10 MG/HR 10 mls/hr IV .Q10H [facility] Rx#: [id number] Oral 1376 Output: Urine 1450 3050 700 Emesis 300 Other: Voiding Method Indwelling Catheter Indwelling Catheter Indwelling Catheter - Exam No acute distress S1-S2 heard Lungs clear No edema - Labs CBC & Chem 7: 09/06/23 10:01 09/08/23 07:38 Labs: Abnormal Lab Results - Last 24 Hours (Table) 09/07/23 09/07/23 09/08/23 Range/Units 16:24 19:32 06:15 Sodium (137-145) mmol/L Chloride (98-107) mmol/L BUN (9-20) mg/dL Creatinine (0.66-1.25) mg/dL Glucose (74-99) mg/dL POC Glucose (mg/dL) 171 H 147 H 122 H (70-110) mg/dL 09/08/23 09/08/23 Range/Units 07:38 11:58 Sodium 136 L (137-145) mmol/L Chloride 95 L (98-107) mmol/L BUN 40 H (9-20) mg/dL Creatinine 1.84 H (0.66-1.25) mg/dL Glucose 101 H (74-99) mg/dL POC Glucose (mg/dL) 120 H (70-110) mg/dL Assessment and Plan Assessment: #1 chronic kidney disease stage 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 #2 acute on chronic diastolic CHF #3 volume overload #4 hypertension with chronic kidney disease #5 coronary artery disease prior stents #7 lymphoma #8 moderate right hydronephrosis Plan: #1 renal function stable. #2 on Lasix and metolazone. #3 outpatient urology follow-up.
[2023-09-08 16:19] LABS: Glucose,Whole Blood 116 mg/dL (70-110)
[2023-09-08] MEDS: FUROSEMIDE 80 MG TAB PO SCH (16:57)
[2023-09-08 19:42] LABS: Glucose,Whole Blood 108 mg/dL (70-110)
[2023-09-09] MEDS: HYDROcodone/APAP 7.5-325MG 1 EACH TAB PO PRN ×2 (00:43→10:57)
[2023-09-09] MEDS: METOCLOPRAMIDE 5 MG/ML 2 ML VIAL IVP PRN ×2 (04:39→13:02)
[2023-09-09] MEDS: LEVOTHYROXINE 25 MCG TAB PO SCH (05:10)
[2023-09-09 06:04] LABS: Glucose,Whole Blood 112 mg/dL (70-110)
[2023-09-09] MEDS: CALCIUM CARB-VIT D 500 MG-5 MCG TAB PO SCH (08:27)
[2023-09-09] MEDS: LORATADINE 10 MG TAB PO SCH (08:27)
[2023-09-09] MEDS: amLODIPine 10 MG TAB PO SCH (08:27)
[2023-09-09] MEDS: ATORVASTATIN 80 MG TAB PO SCH (08:27)
[2023-09-09] MEDS: TAMSULOSIN 0.4 MG CAP.ER.24H PO SCH (08:27)
[2023-09-09] MEDS: hydrALAZINE HCL 50 MG TAB PO SCH ×4 (08:27→21:31)
[2023-09-09] MEDS: FUROSEMIDE 80 MG TAB PO SCH ×2 (08:28→15:26)
[2023-09-09] MEDS: ASPIRIN 81 MG PO SCH (08:28)
[2023-09-09] MEDS: MAGNESIUM OXIDE 400 MG TAB PO SCH (08:28)
[2023-09-09] MEDS: PANTOPRAZOLE 40 MG TABLET PO SCH ×2 (08:28→15:26)
[2023-09-09] MEDS: APIXABAN 5 MG TAB PO SCH ×2 (08:28→21:29)
[2023-09-09] MEDS: METOPROLOL TARTRATE 50 MG TAB PO SCH ×2 (08:28→21:28)
[2023-09-09] MEDS: SENNOSIDES-DOCUSATE SODIUM 1 EACH TAB PO SCH ×2 (08:29→21:28)
[2023-09-09] MEDS: metOLazone 5 MG TAB PO SCH (08:29)
[2023-09-09] MEDS: Liraglutide [Victoza 3-Pak] 0.6 MG/0.1 ML Ml SQ SCH (08:29)
[2023-09-09] MEDS: MORPHINE SULFATE ER 30 MG TABLET PO SCH (08:33)
[2023-09-09] MEDS: IPRATROPIUM-ALBUTEROL 3 ML NEB INHALATION SCH ×3 (09:13→21:25)
[2023-09-09] MEDS: SYMBICORT 80-4.5 MCG INHALER INHALATION SCH ×2 (09:13→21:25)
[2023-09-09 11:47] LABS: Glucose,Whole Blood 188 mg/dL (70-110)
--- NOTE | 2023-09-09 12:28 | P.PN ---
Subjective Progress Note Date: 09/09/23 This is Tristin Nowak NP, I'm dictating on behalf of Dr. Basilio's H&P and A&P. Patient was interviewed and examined. Patient is a pleasant 73-year-old male who came to the hospital with congestive heart failure. Patient reports that he is feeling a little better today. Patient reports that the nausea and vomiting stopped yesterday evening. He has had no further episodes since then. He reports that his cough is somewhat better. Patient was interviewed and examined in his chair. He is denying chest pain, shortness of breath, heart palpitations at this time. GENERAL: Well-appearing, well-nourished and in no acute distress. NECK: Supple without JVD or thyromegaly. LUNGS: Breath sounds clear to auscultation bilaterally. Respiration equal and unlabored. No wheezes, rales or rhonchi. HEART: Regular rate and rhythm without murmurs, rubs or gallops. S1 and S2 heard. EXTREMITIES: Normal range of motion, no edema. No clubbing or cyanosis. Peripheral pulses intact and strong. VITALS: Temp 98.0, pulse 83, respirations 18, blood pressure 136/62, O2 saturation 93% on 2 L TELEMETRY: Normal sinus rhythm LABS: No new labs since 09/08/2023 IMPRESSION: 1. Acute on chronic heart failure with preserved EF 2. Chronic kidney disease 3. COPD 4. Valvular heart disease 5. Hypertension 6. Hyperlipidemia 7. Carotid stenosis 8. Sudden onset nausea and vomiting PLAN: Continue Lasix 80 mg by mouth twice a day. Highly suspicious that nausea and vomiting were secondary to IV Lasix drip. Continue daily weights. Further recommendations based on patient's clinical course. Objective - Vital Signs Vital signs: Vital Signs Temp 97.9 F 09/09/23 10:56 Pulse 78 09/09/23 10:56 Resp 18 09/09/23 10:56 BP 122/63 09/09/23 10:56 Pulse Ox 95 09/09/23 10:56 FiO2 Intake & Output 09/08/23 09/09/23 09/09/23 18:59 06:59 18:59 Intake Total 240 0 Output Total 1500 1600 300 Balance -1260 -1600 -300 Intake: Oral 240 0 Output: Urine 1500 1600 300 Other: Voiding Method Indwelling Catheter Indwelling Catheter Indwelling Catheter - Labs CBC & Chem 7: 09/06/23 10:01 09/08/23 07:38 Labs: Abnormal Lab Results - Last 24 Hours (Table) 09/08/23 09/09/23 09/09/23 Range/Units 16:17 06:03 11:45 POC Glucose (mg/dL) 116 H 112 H 188 H (70-110) mg/dL
[2023-09-09 14:51] LABS: African American GFR (CKD) 40 (>60 ml/min/1.73 sqM); Anion Gap 8 mmol/L; Blood Urea Nitrogen 41 mg/dL (9-20); Carbon Dioxide 34 mmol/L (22-30); Chloride 90 mmol/L (98-107); Glucose 160 mg/dL (74-99); Non-African American GFR(CKD) 34 (>60 ml/min/1.73 sqM); Sodium 132 mmol/L (137-145)
[2023-09-09 15:01] LABS: Potassium 4.1 mmol/L (3.5-5.1)
[2023-09-09] MEDS: ACETAMINOPHEN TAB 325 MG TAB PO PRN (15:25)
--- NOTE | 2023-09-09 15:28 | P.PN ---
Subjective Progress Note Date: 09/09/23 Principal diagnosis: Acute CHF, metastatic cancer The patient is having improvement in the leg swelling since I saw him last week. He has however needed to have a catheter placed to help with this. There is some blood-tinged urine in the catheter today. Per patient has not had hematuria at home. No pain in left neck currently. He has had some nausea recently - including vomiting today after trying to eat lunch. His MS Contin and Smithers have both been held as it was felt these were contributing. Objective - Vital Signs Vital signs: Vital Signs Temp 97.9 F 09/09/23 10:56 Pulse 78 09/09/23 10:56 Resp 18 09/09/23 10:56 BP 122/63 09/09/23 10:56 Pulse Ox 95 09/09/23 10:56 FiO2 Intake & Output 09/08/23 09/09/23 09/09/23 18:59 06:59 18:59 Intake Total 240 120 Output Total 1500 1600 300 Balance -1260 -1600 -180 Intake: Oral 240 120 Output: Urine 1500 1600 300 Other: Voiding Method Indwelling Catheter Indwelling Catheter Indwelling Catheter - Constitutional General appearance: Present: no acute distress - EENT Eyes: Present: EOMI, PERRLA - Neck Neck: Present: lymphadenopathy (Stable left neck swelling/firmness) - Respiratory Respiratory: bilateral: CTA - Cardiovascular Rhythm: regular - Neurologic Neurologic: Present: CNII-XII intact - Psychiatric Psychiatric: Present: A&O x's 3, appropriate affect - Labs CBC & Chem 7: 09/06/23 10:01 09/09/23 14:16 Labs: Abnormal Lab Results - Last 24 Hours (Table) 09/08/23 09/09/23 09/09/23 Range/Units 16:17 06:03 11:45 Sodium (137-145) mmol/L Chloride (98-107) mmol/L Carbon Dioxide (22-30) mmol/L BUN (9-20) mg/dL Creatinine (0.66-1.25) mg/dL Glucose (74-99) mg/dL POC Glucose (mg/dL) 116 H 112 H 188 H (70-110) mg/dL Calcium (8.4-10.2) mg/dL 09/09/23 Range/Units 14:16 Sodium 132 L (137-145) mmol/L Chloride 90 L (98-107) mmol/L Carbon Dioxide 34 H (22-30) mmol/L BUN 41 H (9-20) mg/dL Creatinine 1.92 H (0.66-1.25) mg/dL Glucose 160 H (74-99) mg/dL POC Glucose (mg/dL) (70-110) mg/dL Calcium 8.0 L (8.4-10.2) mg/dL Assessment and Plan Assessment: The patient is a 73-year-old male with a history of a stage II (cT2, cN0, M0) 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 He is status post TURBT and underwent concurrent chemoradiation finishing on 06/08/2020. He now presents with painful recurrence in the left neck biopsy proven recurrent disease in 07/2023. Unfortunately, he is also struggling with CHF resulting in recent hospitalizations and LE edema. Plan: 1. CHF exacerbation: Recs per cardiology - patient's LE edema appears significantly improved from my visit with him last week. 2. Left neck pain: Secondary to metastatic bladder cancer. Patient has only had 1 of 6 planned palliative RT treatments. We will continue with RT during this hospital stay. The patient was previously having intractable pain despite Smithers 10 mg tabs. I added MS Contin this past week. Both of these medications are currently being held out of concern they are contributing to nausea. I'd recommend ensuring patient is having reasonable pain control prior to moving forward with discharge. 3. Nausea/vomiting: Possible this medication induced. Opiate medications vs Lasix drip have been mentioned as possibilities. If this continues despite withdrawal of these medications, I'd consider neuroimaging to ensure we are not missing brain metastases. 4. Metastatic bladder cancer: Oncology following - patient unlikely a chemotherapy candidate with current performance status. If urine continues to be blood tinged, would recommend urology consultation. Unsure if patient is hav ing any obstruction that is contributing to his fluid retention / need for catheterization during his hospital stays. Already on Flomax. Time with Patient: Less than 30
--- NOTE | 2023-09-09 16:00 | P.PN ---
Subjective Progress Note Date: 09/09/23 Follow-up for chronic kidney disease. Urine output of 3100 ML's in the last 24 hours. Objective - Vital Signs Vital signs: Vital Signs Temp 97.8 F 09/09/23 15:17 Pulse 78 09/09/23 15:17 Resp 18 09/09/23 15:17 BP 146/56 09/09/23 15:17 Pulse Ox 93 L 09/09/23 15:17 FiO2 Intake & Output 09/08/23 09/09/23 09/09/23 18:59 06:59 18:59 Intake Total 240 120 Output Total 1500 1600 300 Balance -1260 -1600 -180 Intake: Oral 240 120 Output: Urine 1500 1600 300 Other: Voiding Method Indwelling Catheter Indwelling Catheter Indwelling Catheter - Exam No acute distress S1-S2 heard Lungs clear No edema - Labs CBC & Chem 7: 09/06/23 10:01 09/09/23 14:16 Labs: Abnormal Lab Results - Last 24 Hours (Table) 09/08/23 09/09/23 09/09/23 Range/Units 16:17 06:03 11:45 Sodium (137-145) mmol/L Chloride (98-107) mmol/L Carbon Dioxide (22-30) mmol/L BUN (9-20) mg/dL Creatinine (0.66-1.25) mg/dL Glucose (74-99) mg/dL POC Glucose (mg/dL) 116 H 112 H 188 H (70-110) mg/dL Calcium (8.4-10.2) mg/dL 09/09/23 Range/Units 14:16 Sodium 132 L (137-145) mmol/L Chloride 90 L (98-107) mmol/L Carbon Dioxide 34 H (22-30) mmol/L BUN 41 H (9-20) mg/dL Creatinine 1.92 H (0.66-1.25) mg/dL Glucose 160 H (74-99) mg/dL POC Glucose (mg/dL) (70-110) mg/dL Calcium 8.0 L (8.4-10.2) mg/dL Assessment and Plan Assessment: #1 chronic kidney disease stage 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 #2 acute on chronic diastolic CHF #3 volume overload #4 hypertension with chronic kidney disease #5 coronary artery disease prior stents #7 lymphoma #8 moderate right hydronephrosis Plan: #1 renal function stable. #2 on Lasix and metolazone. #3 outpatient urology follow-up.
[2023-09-09 16:38] LABS: Glucose,Whole Blood 157 mg/dL (70-110)
[2023-09-09 20:56] LABS: Glucose,Whole Blood 168 mg/dL (70-110)
[2023-09-09] MEDS: MAGNESIUM SULFATE-D5W PMX 1 GM in DEXTROSE/WATER 1 100ML.BAG IVPB SCH ×2 (21:29→23:07)
[2023-09-10 05:55] LABS: Glucose,Whole Blood 148 mg/dL (70-110)
[2023-09-10] MEDS: LEVOTHYROXINE 25 MCG TAB PO SCH (06:31)
[2023-09-10] MEDS: METOCLOPRAMIDE 5 MG/ML 2 ML VIAL IVP PRN ×2 (06:36→13:28)
[2023-09-10] MEDS: SYMBICORT 80-4.5 MCG INHALER INHALATION SCH ×2 (07:53→21:18)
[2023-09-10] MEDS: IPRATROPIUM-ALBUTEROL 3 ML NEB INHALATION SCH ×3 (07:53→21:18)
[2023-09-10] MEDS: PANTOPRAZOLE 40 MG TABLET PO SCH ×2 (08:51→16:39)
[2023-09-10] MEDS: ASPIRIN 81 MG PO SCH (08:51)
[2023-09-10] MEDS: MAGNESIUM OXIDE 400 MG TAB PO SCH (08:51)
[2023-09-10] MEDS: TAMSULOSIN 0.4 MG CAP.ER.24H PO SCH (08:51)
[2023-09-10] MEDS: APIXABAN 5 MG TAB PO SCH ×2 (08:51→19:48)
[2023-09-10] MEDS: FUROSEMIDE 80 MG TAB PO SCH ×2 (08:51→16:39)
[2023-09-10] MEDS: amLODIPine 10 MG TAB PO SCH (08:51)
[2023-09-10] MEDS: METOPROLOL TARTRATE 50 MG TAB PO SCH ×2 (08:52→19:48)
[2023-09-10] MEDS: LORATADINE 10 MG TAB PO SCH (08:52)
[2023-09-10] MEDS: hydrALAZINE HCL 50 MG TAB PO SCH ×4 (08:52→19:48)
[2023-09-10] MEDS: CALCIUM CARB-VIT D 500 MG-5 MCG TAB PO SCH (08:52)
[2023-09-10] MEDS: SENNOSIDES-DOCUSATE SODIUM 1 EACH TAB PO SCH ×2 (08:52→19:49)
[2023-09-10] MEDS: ATORVASTATIN 80 MG TAB PO SCH (08:52)
[2023-09-10] MEDS: Liraglutide [Victoza 3-Pak] 0.6 MG/0.1 ML Ml SQ SCH (08:53)
[2023-09-10] MEDS: metOLazone 5 MG TAB PO SCH (08:54)
[2023-09-10 09:12] LABS: ALT 18 U/L (4-49); African American GFR (CKD) 40 (>60 ml/min/1.73 sqM); Albumin 3.1 g/dL (3.5-5.0); Anion Gap 11 mmol/L; Blood Urea Nitrogen 37 mg/dL (9-20); Calcium 8.2 mg/dL (8.4-10.2); Carbon Dioxide 32 mmol/L (22-30); Chloride 88 mmol/L (98-107); Glucose 172 mg/dL (74-99); Non-African American GFR(CKD) 35 (>60 ml/min/1.73 sqM); Sodium 131 mmol/L (137-145); Total Bilirubin 0.7 mg/dL (0.2-1.3); Total Protein 6.1 g/dL (6.3-8.2)
[2023-09-10 09:19] LABS: AST 37 U/L (17-59); Alkaline Phosphatase 89 U/L (38-126)
--- NOTE | 2023-09-10 09:31 | P.PN ---
Progress Note - Text Progress Note Date: 09/09/23 Chief Complaint: Shortness of breath Pleasant 73-year-old patient who follows with Dr. Johnny Rubio./Mid-level provider-Kareen. Chronic stable medical conditions include CAD with stent in 2018, diabetes, hypertension, hyperlipidemia, osteoporosis, bladder cancer with treatment was in remission and cystoscopy 2020, was admitted to the hospital in August 04 of the left neck mass. -Metastatic urothelial carcinoma:Completed treatment with concurrent chemo/RT in 06/2020. Was following up for observation in clinic through 11/2021 with no evidence of recurrence. Stopped f/u with urology in February 2022 due to insurance reasons, Biopsy - metastatic non-small cell carcinoma consistent with metastatic high- grade urothelial carcinoma. . Patient also developed DVT in the left cephalic vein and DVT in the internal jugular vein. Patient spending outpatient PET scan. Also had an episode of coffee-ground emesis. Had EGD. Showed that his esophagus and esophagitis. Put on PPI. Patient also treated with Diflucan for thrush. Also was found to have gallstones and right hydronephrosis.-Mild. Also was treated for diastolic CHF exacerbation. Patient started on radiation treatment this Sunday. With Dr. Johnny Juarez. Patient now presents to the ER accompanied by his . Increasing short of breath in the last few days. Had to sleep in a recliner. Increasing lower extremity edema. Bruising. Shortness of breath. No chest pain. Admitted with CHF exacerbation. Appetite has gone down September 07: She has been on IV Lasix drip. About 1400s negative fluid balance. Appetite some improvement. Discussed with patient and at the bedside. Continue diuresis Zaroxolyn 5 mg daily added. September 08: Seen by cardiology earlier today. Changed over to oral Lasix. Patient still feels he's got a lot of fluids. In his legs. We'll give additional dose of IV Lasix. Breathing better. September 09: His morning patient had nausea and vomiting. Patient had a regular lunch. Hold off patient's morphine and [place]. Changed to full liquid diet. Changed to Reglan when necessary. Discussed with patient and . Current medications reviewed Social history: Used to work in a [employer]. . 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 Patient Smoked for 50 Years Stopped in 2018. Drinking Excessive Alcohol up to 2018. Physical examination: VITAL SIGNS: 97.9, 78, 18, 1 22 x 63, 95% on 2 L GENERAL: Sitting edge of the bed, EYES: Pupils equal. Conjunctiva normal. HEENT: External appearance of nose and ears normal, oral cavity grossly normal. NECK: JVD possibly raised; masses not palpable. Hard mass of the left upper neck going to the mandible. Hard. HEART: Heart sounds irregular; edema present LUNGS: Respiratory rate increased; decreased breath sounds. ABDOMEN: Soft, nontender, liver spleen not palpable, no masses palpable. PSYCH: Alert and oriented x3; mood and affect with anxious EXTREMITY: Left upper extremity swelling compared to the right. In a sleeve MUSCULOSKELETAL:No Clubbing/cyanosis;muscles-grossly intact. OA NEUROLOGICAL: Some facial asymmetry secondary to left neck mass. Otherwise cranial nerves grossly intact. Bun and sensation grossly intact INVESTIGATIONS, reviewed in the clinical context: September 09: Potassium 4.1 BUN 41 and 1.9 to September 08: Potassium 4.5 creatinine 1.84 September 07: Potassium 4.6. 4 Dr[address] Basilio 1.79 September 06: White count 10.2 hemoglobin 10.2 platelets 220 sodium 137 potassium 5.2 BUN 44 creatinine 1.74 EKG tracing personally reviewed by me-normal sinus rhythm. Chest x-ray film personally reviewed by me-left pleural effusion. Recent investigations: August 31: Potassium 4.2 creatinine 1.97 EGD: Legionnaire erosions distal esophagus LA grade B reflux esophagitis.. Barium swallow with redo: Transient penetration with thin liquids. No aspiration. Ultrasound Doppler of the left upper extremity: Non occlusive DVT in the eye JVD. Superficial thrombosis within the left cephalic vein. 2-D echocardiogram: Preserved LV function. Mild inferior septal hypokinesis. CT soft tissue neck without contrast: Enlargement of the left parotid gland with surrounding the inflammatory attenuation as well as skeletal thinking. Also inflammatory thickening of the left sternocleidomastoid musculature. Surrounding reactive adenopathy. No obstructing Loss. CT chest abdomen pelvis: Small bowel guarded to 3 cm. Mild right-sided hydronephrosis. Gallstones Ultrasound kidney: Mild right-sided hydronephrosis. Assessment: -Acute on chronic congestive heart exacerbation from diastolic dysfunction 50- 55%.: Better IV Lasix drip at 10 mg hour-stopped. Zaroxolyn 5 mg daily added Strict I's and O's. Cardiology following fluid restriction 1500 mL a day Lasix 80 mg twice a day -Nausea vomiting possibly secondary to [place] and morphine. DC the above. Full liquid diet. -Chronic kidney disease likely hydronephrosis secondary cardiorenal syndrome. Along with Right-sided hydronephrosis. Strict I's and O's. Nephrology following -Chronic Esophagitis and Otoole's esophagus, recent EGD PPI Was previously seen Seen by Dr. Thuan Mart -COPD in a prior smoker: DuoNeb. Symbicort Paroxysmal atrial fibrillation - sinus rhythm Lopressor 50 mg twice a day Eliquis -Essential hypertension Lopressor 50 mg twice a day. Amlodipine 10 mg a day Hydralazine 75 mg 4 times a day -Mild hydronephrosis-right For further workup outpatient with urology -Metastatic urothelial carcinoma: -Completed treatment with concurrent chemo/RT in 06/2020. Was following up for observation in clinic through 11/2021 with no evidence of recurrence. Stopped f/u with urology in February 2022 due to insurance reasons, and has not had f/u since -Progressing left neck mass. Biopsy of the lt neck mass revealed metastatic non- small cell carcinoma consistent with metastatic high-grade urothelial carcinoma. Results were discussed with patient and spouse Consult Dr. 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 Superficial thrombosis within the left cephalic vein. Eliquis Sleeve left upper extremity Followed by Dr. Montalvo from vascular. -CAD with stent 2018 Aspirin. Coreg -Hyperlipidemia Lipitor -Diabetes mellitus type 2 on oral hypoglycemic Follow Accu-Cheks and sliding scale Victoza. -Full code. Hold morphine and Perkins. Pain is controlled. Use Tylenol.. Discussed with patient and . Full liquid diet
[2023-09-10 11:27] LABS: Glucose,Whole Blood 196 mg/dL (70-110)
--- NOTE | 2023-09-10 12:56 | P.PN ---
Progress Note - Text Progress Note Date: 09/10/23 Chief Complaint: Shortness of breath Pleasant 73-year-old patient who follows with Dr. Johnny Rubio./Mid-level provider-Kareen. Chronic stable medical conditions include CAD with stent in 2018, diabetes, hypertension, hyperlipidemia, osteoporosis, bladder cancer with treatment was in remission and cystoscopy 2020, was admitted to the hospital in August 04 of the left neck mass. -Metastatic urothelial carcinoma:Completed treatment with concurrent chemo/RT in 06/2020. Was following up for observation in clinic through 11/2021 with no evidence of recurrence. Stopped f/u with urology in February 2022 due to insurance reasons, Biopsy - metastatic non-small cell carcinoma consistent with metastatic high- grade urothelial carcinoma. . Patient also developed DVT in the left cephalic vein and DVT in the internal jugular vein. Patient spending outpatient PET scan. Also had an episode of coffee-ground emesis. Had EGD. Showed that his esophagus and esophagitis. Put on PPI. Patient also treated with Diflucan for thrush. Also was found to have gallstones and right hydronephrosis.-Mild. Also was treated for diastolic CHF exacerbation. Patient started on radiation treatment this Sunday. With Dr. Johnny Juarez. Patient now presents to the ER accompanied by his . Increasing short of breath in the last few days. Had to sleep in a recliner. Increasing lower extremity edema. Bruising. Shortness of breath. No chest pain. Admitted with CHF exacerbation. Appetite has gone down September 07: She has been on IV Lasix drip. About 1400s negative fluid balance. Appetite some improvement. Discussed with patient and at the bedside. Continue diuresis Zaroxolyn 5 mg daily added. September 08: Seen by cardiology earlier today. Changed over to oral Lasix. Patient still feels he's got a lot of fluids. In his legs. We'll give additional dose of IV Lasix. Breathing better. September 09: His morning patient had nausea and vomiting. Patient had a regular lunch. Hold off patient's morphine and [place]. Changed to full liquid diet. Changed to Reglan when necessary. Discussed with patient and . September 10: Patient tolerating his full liquids well. No further nausea vomiting. Discussed with patient . Patient has minimal pain requirement. Doing well with Tylenol. Morphine and [place] to be discontinued. Advanced to a chopped diet. If tolerates the same should be able to go home tomorrow. Care discussed with the patient and . Radiation treatment to continue outpatient then. Active Medications Acetaminophen (Acetaminophen Tab 325 Mg Tab) 650 mg PO Q6HR PRN PRN Reason: Mild Pain or Fever > 100.5 Last Admin: 09/09/23 15:25 Dose: 650 mg Albuterol Sulfate (Albuterol Hfa Inhaler) 1 puff INHALATION RT-Q4H PRN PRN Reason: Shortness Of Breath Albuterol/Ipratropium (Ipratropium-Albuterol 3 Ml Neb) 3 ml INHALATION RT- TID@08,14,21 [facility] Last Admin: 09/10/23 12:35 Dose: Not Given Amlodipine Besylate (Amlodipine 10 Mg Tab) 10 mg PO DAILY [facility] Last Admin: 09/10/23 08:51 Dose: 10 mg Apixaban (Apixaban 5 Mg Tab) 5 mg PO BID [facility]; Protocol Last Admin: 09/10/23 08:51 Dose: 5 mg Aspirin (Aspirin 81 Mg) 81 mg PO DAILY [facility] Last Admin: 09/10/23 08:51 Dose: 81 mg Atorvastatin Calcium (Atorvastatin 80 Mg Tab) 80 mg PO DAILY [facility] Last Admin: 09/10/23 08:52 Dose: 80 mg Budesonide/Formoterol Fumarate (Symbicort 80-4.5 Mcg Inhaler) 1 puff INHALATION RT-BID [facility] Last Admin: 09/10/23 07:53 Dose: Not Given Calcium Carbonate (Calcium Carb-Vit D 500 Mg-5 Mcg Tab) 1 each PO DAILY [facility] Last Admin: 09/10/23 08:52 Dose: 1 each Calcium Carbonate/Glycine (Calcium Carbonate 500 Mg Chewable) 1,000 mg PO Q4HR PRN PRN Reason: Dyspepsia Furosemide (Furosemide 80 Mg Tab) 80 mg PO BID@0900,1600 [facility] Last Admin: 09/10/23 08:51 Dose: 80 mg Hydralazine HCl (Hydralazine Hcl 50 Mg Tab) 75 mg PO QID@08,12,17,22 [facility] Last Admin: 09/10/23 08:52 Dose: 75 mg Lactulose (Lactulose 20 Gm/30 Ml Cup) 20 gm PO DAILY PRN PRN Reason: Constipation Levothyroxine Sodium (Levothyroxine 25 Mcg Tab) 25 mcg PO DAILY@0630 [facility] Last Admin: 09/10/23 06:31 Dose: 25 mcg Loratadine (Loratadine 10 Mg Tab) 5 mg PO DAILY [facility] Last Admin: 09/10/23 08:52 Dose: 5 mg Magnesium Oxide (Magnesium Oxide 400 Mg Tab) 400 mg PO DAILY [facility] Last Admin: 09/10/23 08:51 Dose: 400 mg Melatonin (Melatonin 3 Mg Tablet) 3 mg PO HS PRN PRN Reason: Insomnia Metoclopramide HCl (Metoclopramide 5 Mg/Ml 2 Ml Vial) 10 mg IVP Q8HR PRN PRN Reason: Nausea And Vomiting Last Admin: 09/10/23 06:36 Dose: 10 mg Metolazone (Metolazone 5 Mg Tab) 5 mg PO DAILY [facility] Last Admin: 09/10/23 08:54 Dose: 5 mg Metoprolol Tartrate (Metoprolol Tartrate 50 Mg Tab) 50 mg PO BID [facility] Last Admin: 09/10/23 08:52 Dose: 50 mg Naloxone HCl (Naloxone 0.4 Mg/Ml 1 Ml Vial) 0.2 mg IV Q2M PRN PRN Reason: Opioid Reversal Liraglutide [Victoza 3-Sam] 0.6 Mg/0.1 Ml Ml 1.8 mg SQ DAILY [facility] Last Admin: 09/10/23 08:53 Dose: 1.8 mg Pantoprazole Sodium (Pantoprazole 40 Mg Tablet) 40 mg PO AC-BID@0800,1700 [facility] Last Admin: 09/10/23 08:51 Dose: 40 mg Senna/Docusate Sodium (Sennosides-Docusate Sodium 1 Each Tab) 1 each PO BID [facility] Last Admin: 09/10/23 08:52 Dose: 1 each Tamsulosin HCl (Tamsulosin 0.4 Mg Cap.Er.24h) 0.4 mg PO DAILY [facility] Last Admin: 09/10/23 08:51 Dose: 0.4 mg 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 Patient Smoked for 50 Years Stopped in 2019. Drinking Excessive Alcohol up to 2019. Physical examination: VITAL SIGNS: 98.1, 84, 18, 158 by [place] 7, 93% on 2 L GENERAL: In bed, comfortable EYES: Pupils equal. Conjunctiva normal. HEENT: External appearance of nose and ears normal, oral cavity grossly normal. NECK: JVD possibly raised; masses not palpable. Hard mass of the left upper neck going to the mandible. Hard. HEART: Heart sounds irregular; edema present LUNGS: Respiratory rate increased; decreased breath sounds. ABDOMEN: Soft, nontender, liver spleen not palpable, no masses palpable. PSYCH: Alert and oriented x3; mood and affect with anxious EXTREMITY: Left upper extremity swelling compared to the right. In a sleeve MUSCULOSKELETAL:No Clubbing/cyanosis;muscles-grossly intact. OA NEUROLOGICAL: Some facial asymmetry secondary to left neck mass. Otherwise cranial nerves grossly intact. Power and sensation grossly intact INVESTIGATIONS, reviewed in the clinical context: September 10: Potassium 4 BUN 37 creatinine 1.89 September 09: Potassium 4.1 BUN 41 and 1.9 to September 08: Potassium 4.5 creatinine 1.84 September 07: Potassium 4.6. 4 Dr[address] Basilio 1.79 September 06: White count 10.2 hemoglobin 10.2 platelets 220 sodium 137 potassium 5.2 BUN 44 creatinine 1.74 EKG tracing personally reviewed by me-normal sinus rhythm. Chest x-ray film personally reviewed by me-left pleural effusion. Recent investigations: August 31: Potassium 4.2 creatinine 1.97 EGD: Legionnaire erosions distal esophagus LA grade B reflux esophagitis.. Barium swallow with redo: Transient penetration with thin liquids. No aspiration. Ultrasound Doppler of the left upper extremity: Non occlusive DVT in the eye JVD. Superficial thrombosis within the left cephalic vein. 2-D echocardiogram: Preserved LV function. Mild inferior septal hypokinesis. CT soft tissue neck without contrast: Enlargement of the left parotid gland with surrounding the inflammatory attenuation as well as skeletal thinking. Also inflammatory thickening of the left sternocleidomastoid musculature. Surrounding reactive adenopathy. No obstructing Loss. CT chest abdomen pelvis: Small bowel guarded to 3 cm. Mild right-sided hydronephrosis. Gallstones Ultrasound kidney: Mild right-sided hydronephrosis. Assessment: -Acute on chronic congestive heart exacerbation from diastolic dysfunction 50- 55%.: Better IV Lasix drip at 10 mg hour-stopped. Zaroxolyn 5 mg daily added Strict I's and O's. Cardiology following fluid restriction 1500 mL a day Lasix 80 mg twice a day -Nausea vomiting possibly secondary to [place] and morphine.: Improved Stopped [place] and morphine. Tylenol working well for pain. -Chronic kidney disease likely hydronephrosis secondary cardiorenal syndrome. Along with Right-sided hydronephrosis. Strict I's and O's. Nephrology following -Chronic Esophagitis and Otoole's esophagus, recent EGD PPI Was previously seen Seen by Dr. Thuan Mart -COPD in a prior smoker: DuoNeb. Symbicort Paroxysmal atrial fibrillation - sinus rhythm Lopressor 50 mg twice a day Eliquis -Essential hypertension Lopressor 50 mg twice a day. Amlodipine 10 mg a day Hydralazine 75 mg 4 times a day -Mild hydronephrosis-right For further workup outpatient with urology -Metastatic urothelial carcinoma: -Completed treatment with concurrent chemo/RT in 06/2020. Was following up for observation in clinic through 11/2021 with no evidence of recurrence. Stopped f/u with urology in February 2022 due to insurance reasons, and has not had f/u since -Progressing left neck mass. Biopsy of the lt neck mass revealed metastatic non- small cell carcinoma consistent with metastatic high-grade urothelial carcinoma. Results were discussed with patient and spouse Follow Dr. 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 Superficial thrombosis within the left cephalic vein. Eliquis Sleeve left upper extremity Followed by Dr. Montalvo from vascular. -CAD with stent 2019 Aspirin. Coreg -Hyperlipidemia Lipitor -Diabetes mellitus type 2 on oral hypoglycemic Follow Accu-Cheks and sliding scale Victoza. -Full code. Discussed with patient and . Morphine and [place] to be discontinued. Patient's pain is well controlled on Tylenol. He can use local heat or ice pack. If tolerates diet can be discharged home tomorrow. If okay with oncology/radiation service.
[2023-09-10] MEDS: ACETAMINOPHEN TAB 325 MG TAB PO PRN (13:28)
--- NOTE | 2023-09-10 15:30 | P.PN ---
Subjective Progress Note Date: 09/10/23 Patient is a pleasant 73-year-old male who came to the hospital with congestive heart failure. Patient reports that he is feeling a little better today. Patient reports that the nausea and vomiting stopped yesterday evening. He has had no further episodes since then. He reports that his cough is somewhat better. Patient was interviewed and examined in his chair. He is denying chest pain, shortness of breath, heart palpitations at this time. VITALS: Temp 98.0, pulse 83, respirations 18, blood pressure 136/62, O2 saturation 93% on 2 L TELEMETRY: Normal sinus rhythm LABS: No new labs since 09/08/202309/10 The patient is maintained on Lasix 80 mg twice daily oral. Noted that his blood pressure slightly elevated today. He still having some shortness of breath. He is on home O2 at 2 L nasal cannula. Blood pressure 158/67, heart rate in the 70s and 80s, pulse ox 93% on 2 L. GENERAL: Well-appearing, well-nourished and in no acute distress. NECK: Supple without JVD or thyromegaly. LUNGS: Breath sounds clear to auscultation bilaterally. Respiration equal and unlabored. No wheezes, rales or rhonchi. HEART: Regular rate and rhythm without murmurs, rubs or gallops. S1 and S2 heard. EXTREMITIES: Normal range of motion, no edema. No clubbing or cyanosis. Peripheral pulses intact and strong. IMPRESSION: 1. Acute on chronic heart failure with preserved EF 2. Chronic kidney disease 3. COPD 4. Valvular heart disease 5. Hypertension 6. Hyperlipidemia 7. Carotid stenosis 8. Sudden onset nausea and vomiting Bladder cancer PLAN: Continue Lasix 80 mg by mouth twice a day. Highly suspicious that nausea and vomiting were secondary to IV Lasix drip. Continue daily weights, electrolytes and renal function. Continue current cardiac medications Further recommendations based on patient's clinical course. Nurse practitioner note has been reviewed, I agree with the documented findings and plan of care. Patient was seen and examined. Objective - Vital Signs Vital signs: Vital Signs Temp 98.1 F 09/10/23 08:00 Pulse 72 09/10/23 08:08 Resp 18 09/10/23 08:00 BP 158/67 09/10/23 08:00 Pulse Ox 93 L 09/10/23 08:00 FiO2 Intake & Output 09/09/23 09/10/23 09/10/23 18:59 06:59 18:59 Intake Total 120 240 222 Output Total 825 1600 Balance -705 -1360 222 Weight 81 kg Intake: Oral 120 240 222 Output: Urine 825 1600 Other: Voiding Method Indwelling Catheter Indwelling Catheter Indwelling Catheter - Labs CBC & Chem 7: 09/06/23 10:01 09/10/23 08:12 Labs: Abnormal Lab Results - Last 24 Hours (Table) 09/09/23 09/09/23 09/09/23 Range/Units 14:16 16:37 20:54 Sodium 132 L (137-145) mmol/L Chloride 90 L (98-107) mmol/L Carbon Dioxide 34 H (22-30) mmol/L BUN 41 H (9-20) mg/dL Creatinine 1.92 H (0.66-1.25) mg/dL Glucose 160 H (74-99) mg/dL POC Glucose (mg/dL) 157 H 168 H (70-110) mg/dL Calcium 8.0 L (8.4-10.2) mg/dL Total Protein (6.3-8.2) g/dL Albumin (3.5-5.0) g/dL 09/10/23 09/10/23 09/10/23 Range/Units 05:54 08:12 11:25 Sodium 131 L (137-145) mmol/L Chloride 88 L (98-107) mmol/L Carbon Dioxide 32 H (22-30) mmol/L BUN 37 H (9-20) mg/dL Creatinine 1.89 H (0.66-1.25) mg/dL Glucose 172 H (74-99) mg/dL POC Glucose (mg/dL) 148 H 196 H (70-110) mg/dL Calcium 8.2 L (8.4-10.2) mg/dL Total Protein 6.1 L (6.3-8.2) g/dL Albumin 3.1 L (3.5-5.0) g/dL
[2023-09-10 16:23] LABS: Glucose,Whole Blood 191 mg/dL (70-110)
[2023-09-10 20:11] LABS: Glucose,Whole Blood 164 mg/dL (70-110)
[2023-09-11] MEDS: ACETAMINOPHEN TAB 325 MG TAB PO PRN (01:54)
[2023-09-11] MEDS: METOCLOPRAMIDE 5 MG/ML 2 ML VIAL IVP PRN (03:49)
[2023-09-11 03:52] LABS: Glucose,Whole Blood 184 mg/dL (70-110)
[2023-09-11] MEDS: LEVOTHYROXINE 25 MCG TAB PO SCH (05:52)
[2023-09-11 06:30] LABS: Glucose,Whole Blood 197 mg/dL (70-110)
[2023-09-11] MEDS: SYMBICORT 80-4.5 MCG INHALER INHALATION SCH (08:28)
[2023-09-11] MEDS: IPRATROPIUM-ALBUTEROL 3 ML NEB INHALATION SCH ×2 (08:28→15:08)
[2023-09-11] MEDS: LORATADINE 10 MG TAB PO SCH (08:33)
[2023-09-11] MEDS: metOLazone 5 MG TAB PO SCH (08:33)
[2023-09-11] MEDS: amLODIPine 10 MG TAB PO SCH (08:33)
[2023-09-11] MEDS: ATORVASTATIN 80 MG TAB PO SCH (08:34)
[2023-09-11] MEDS: FUROSEMIDE 80 MG TAB PO SCH ×2 (08:34→15:27)
[2023-09-11] MEDS: METOPROLOL TARTRATE 50 MG TAB PO SCH (08:34)
[2023-09-11] MEDS: SENNOSIDES-DOCUSATE SODIUM 1 EACH TAB PO SCH (08:34)
[2023-09-11] MEDS: hydrALAZINE HCL 50 MG TAB PO SCH ×2 (08:34→11:23)
[2023-09-11] MEDS: ASPIRIN 81 MG PO SCH (08:34)
[2023-09-11] MEDS: APIXABAN 5 MG TAB PO SCH (08:34)
[2023-09-11] MEDS: MAGNESIUM OXIDE 400 MG TAB PO SCH (08:34)
[2023-09-11] MEDS: CALCIUM CARB-VIT D 500 MG-5 MCG TAB PO SCH (08:34)
[2023-09-11] MEDS: TAMSULOSIN 0.4 MG CAP.ER.24H PO SCH (08:34)
[2023-09-11] MEDS: PANTOPRAZOLE 40 MG TABLET PO SCH (08:34)
[2023-09-11] MEDS: Liraglutide [Victoza 3-Pak] 0.6 MG/0.1 ML Ml SQ SCH (08:37)
[2023-09-11 09:52] VITALS: RESP 16; TEMP 97.9
[2023-09-11] MEDS ORDERED: ONDANSETRON 4 MG/2 ML VIAL IVP STA (10:25)
[2023-09-11 11:36] LABS: Glucose,Whole Blood 204 mg/dL (70-110)
[2023-09-11 11:53] VITALS: BP 160/55
--- NOTE | 2023-09-11 11:57 | P.PN ---
Subjective Patient is seen for follow-up for acute kidney injury on top of chronic kidney disease. Complaining of nausea today. Patient has had good urine output. Serum creatinine staying at about 1.8-1.9 mg/dL. Objective - Vital Signs Vital signs: Vital Signs Temp 97.9 F 09/11/23 08:28 Pulse 85 09/11/23 11:17 Resp 16 09/11/23 11:17 BP 160/55 09/11/23 11:17 Pulse Ox 93 L 09/11/23 11:17 FiO2 Intake & Output 09/10/23 09/11/23 09/11/23 18:59 06:59 18:59 Intake Total 942 120 Output Total 960 1000 Balance -18 -1000 120 Weight 82.1 kg Intake: Oral 942 120 Output: Urine 960 1000 Other: Voiding Method Indwelling Catheter Urinal Urinal - Exam Patient is awake, comfortable, no acute distress Examination of the heart S1 and S2 Examination the lungs bilateral breath sounds are heard Abdomen is soft nontender Examination of lower extremities shows no significant edema [employer] exam grossly intact - Labs CBC & Chem 7: 09/06/23 10:01 09/10/23 08:12 Labs: Abnormal Lab Results - Last 24 Hours (Table) 09/10/23 09/10/23 09/11/23 Range/Units 16:19 20:09 03:51 POC Glucose (mg/dL) 191 H 164 H 184 H (70-110) mg/dL 09/11/23 09/11/23 Range/Units 06:27 11:34 POC Glucose (mg/dL) 197 H 204 H (70-110) mg/dL Assessment and Plan Assessment: #1 chronic kidney disease stage 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 #2 acute on chronic diastolic CHF #3 volume overload #4 hypertension with chronic kidney disease #5 coronary artery disease prior stents #7 lymphoma #8 moderate right hydronephrosis Plan: Continue with oral Lasix and metolazone. Follow-up as outpatient for DENICE Yu
--- NOTE | 2023-09-11 12:40 | P.PN ---
Subjective Progress Note Date: 09/11/23 Patient is a pleasant 73-year-old male who came to the hospital with congestive heart failure. Patient reports that he is feeling a little better today. Patient reports that the nausea and vomiting stopped yesterday evening. He has had no further episodes since then. He reports that his cough is somewhat better. Patient was interviewed and examined in his chair. He is denying chest pain, shortness of breath, heart palpitations at this time. VITALS: Temp 98.0, pulse 83, respirations 18, blood pressure 136/62, O2 saturation 93% on 2 L TELEMETRY: Normal sinus rhythm LABS: No new labs since 09/08/202309/10 The patient is maintained on Lasix 80 mg twice daily oral. Noted that his blood pressure slightly elevated today. He still having some shortness of breath. He is on home O2 at 2 L nasal cannula. Blood pressure 158/67, heart rate in the 70s and 80s, pulse ox 93% on 2 L. 09/11 Patient states that he is feeling better today. He is currently at 2 L nasal cannula with pulse ox of 93%, blood pressure 160/55, heart rate 85.he is scheduled for palliative radiation today. Patient denies having any chest pain and shortness of breath is stable. GENERAL: Well-appearing, well-nourished and in no acute distress. NECK: Supple without JVD or thyromegaly. LUNGS: Breath sounds clear to auscultation bilaterally. Respiration equal and unlabored. No wheezes, rales or rhonchi. HEART: Regular rate and rhythm without murmurs, rubs or gallops. S1 and S2 heard. EXTREMITIES: Normal range of motion, no edema. No clubbing or cyanosis. Peripheral pulses intact and strong. IMPRESSION: 1. Acute on chronic heart failure with preserved EF 2. Chronic kidney disease 3. COPD 4. Valvular heart disease 5. Hypertension 6. Hyperlipidemia 7. Carotid stenosis 8. Sudden onset nausea and vomiting Bladder cancer PLAN: Continue Lasix 80 mg by mouth twice a day. Continue current cardiac medications Patient is cleared from cardiology for discharge. Nurse practitioner note has been reviewed, I agree with the documented findings and plan of care. Patient was seen and examined. Objective - Vital Signs Vital signs: Vital Signs Temp 98.0 F 09/11/23 04:00 Pulse 76 09/11/23 08:44 Resp 19 09/11/23 04:00 BP 129/49 09/11/23 04:00 Pulse Ox 96 09/11/23 08:33 FiO2 Intake & Output 09/10/23 09/11/23 09/11/23 18:59 06:59 18:59 Intake Total 942 120 Output Total 960 1000 Balance -18 -1000 120 Weight 82.1 kg Intake: Oral 942 120 Output: Urine 960 1000 Other: Voiding Method Indwelling Catheter Urinal - Labs CBC & Chem 7: 09/06/23 10:01 09/10/23 08:12 Labs: Abnormal Lab Results - Last 24 Hours (Table) 09/10/23 09/10/23 09/10/23 Range/Units 08:12 11:25 16:19 Sodium 131 L (137-145) mmol/L Chloride 88 L (98-107) mmol/L Carbon Dioxide 32 H (22-30) mmol/L BUN 37 H (9-20) mg/dL Creatinine 1.89 H (0.66-1.25) mg/dL Glucose 172 H (74-99) mg/dL POC Glucose (mg/dL) 196 H 191 H (70-110) mg/dL Calcium 8.2 L (8.4-10.2) mg/dL Total Protein 6.1 L (6.3-8.2) g/dL Albumin 3.1 L (3.5-5.0) g/dL 09/10/23 09/11/23 09/11/23 Range/Units 20:09 03:51 06:27 Sodium (137-145) mmol/L Chloride (98-107) mmol/L Carbon Dioxide (22-30) mmol/L BUN (9-20) mg/dL Creatinine (0.66-1.25) mg/dL Glucose (74-99) mg/dL POC Glucose (mg/dL) 164 H 184 H 197 H (70-110) mg/dL Calcium (8.4-10.2) mg/dL Total Protein (6.3-8.2) g/dL Albumin (3.5-5.0) g/dL
--- NOTE | 2023-09-11 15:10 | P.EN ---
Patient will require a nebulizer on discharge as patient is receiving DuoNeb treatments 4 times a day to manage COPD
[2023-09-11 15:14] VITALS: PULSE 80
--- NOTE | 2023-09-11 23:18 | P.PN ---
Subjective Progress Note Date: 09/11/23 Principal diagnosis: Metastatic urothelial carcinoma, dyspnea, BLE swelling In f/u today pt leg swelling is gone, he has compression socks on, he has been doing radiation with no c/o. He is on 2L O2 Objective - Vital Signs Vital signs: Vital Signs Temp 97.9 F 09/11/23 08:28 Pulse 85 09/11/23 13:15 Resp 16 09/11/23 11:17 BP 160/55 09/11/23 11:17 Pulse Ox 93 L 09/11/23 11:17 FiO2 Intake & Output 09/10/23 09/11/23 09/11/23 18:59 06:59 18:59 Intake Total 942 120 Output Total 960 1000 Balance -18 -1000 120 Weight 82.1 kg Intake: Oral 942 120 Output: Urine 960 1000 Other: Voiding Method Indwelling Catheter Urinal Urinal - Constitutional General appearance: Present: average body habitus, cooperative, no acute distress - EENT Eyes: Present: anicteric sclerae, EOMI ENT: Present: hearing grossly normal - Respiratory Respiratory: bilateral: diminished - Cardiovascular Rhythm: regular Heart sounds: normal: S1, S2 Abnormal Heart Sounds: Absent: systolic murmur, diastolic murmur, rub, S3 Gall op, S4 Gallop, click, other - Peripheral edema leg Peripheral Edema: bilateral: Trace - Gastrointestinal General gastrointestinal: Present: normal bowel sounds, soft - Neurologic Neurologic: Present: CNII-XII intact - Musculoskeletal Musculoskeletal: Present: generalized weakness - Psychiatric Psychiatric: Present: A&O x's 3, appropriate affect, intact judgment & insight - Labs CBC & Chem 7: 09/06/23 10:01 09/10/23 08:12 Labs: Abnormal Lab Results - Last 24 Hours (Table) 09/10/23 09/10/23 09/11/23 Range/Units 16:19 20:09 03:51 POC Glucose (mg/dL) 191 H 164 H 184 H (70-110) mg/dL 09/11/23 09/11/23 Range/Units 06:27 11:34 POC Glucose (mg/dL) 197 H 204 H (70-110) mg/dL Assessment and Plan (1) CHF (congestive heart failure) Status: Acute Priority: High Code(s): I50.9 - HEART FAILURE, UNSPECIFIED SNOMED Code(s): 09067207 (2) Metastatic urothelial carcinoma Status: Acute Priority: High Code(s): C79.10 - SECONDARY MALIGNANT NEOPLASM OF UNSPECIFIED URINARY ORGANS SNOMED Code(s): 36636251 Plan: CHF, acute on chronic kidney disease -Consults to Cardioogy and Nephrology. Medically managed, pt doing much better Metastatic Urothelial carcinoma -He is currently having radiation which he will complete either today or in the next day outpt -PET scan sched for 09/20, f/u Dr. Banda the following week
== END 2023-09-11 16:09 | disposition home or self-care (01) | DRG 291 ==
LOC: EC 09:06 → 3SCARD 12:34
PROVIDERS: ADMIT Hospitalist; ATTEND Hospitalist
PROC: D70 Radiation Therapy, Lymphatic and Hematologic System, Beam Radiation (ICD-10-PCS; principal; 2023-09-10)
DX: I13.0 Hypertensive heart and chronic kidney disease with heart failure and stage 1 through stage 4 chronic kidney disease, or unspecified chronic kidney disease (principal); I50.33 Acute on chronic diastolic (congestive) heart failure; C79.9 Secondary malignant neoplasm of unspecified site; C85.90 Non-Hodgkin lymphoma, unspecified, unspecified site; I82.612 Acute embolism and thrombosis of superficial veins of left upper extremity; I82.C22 Chronic embolism and thrombosis of left internal jugular vein; N17.9 Acute kidney failure, unspecified; N13.30 Unspecified hydronephrosis; K80.10 Calculus of gallbladder with chronic cholecystitis without obstruction; B37.9 Candidiasis, unspecified; C67.9 Malignant neoplasm of bladder, unspecified; E11.22 Type 2 diabetes mellitus with diabetic chronic kidney disease; E78.5 Hyperlipidemia, unspecified; E87.5 Hyperkalemia; K20.90 Esophagitis, unspecified without bleeding; K22.70 Barrett's esophagus without dysplasia; K59.00 Constipation, unspecified; N18.32 Chronic kidney disease, stage 3b; R31.0 Gross hematuria; G14 Postpolio syndrome; G47.00 Insomnia, unspecified; M81.0 Age-related osteoporosis without current pathological fracture; I25.10 Atherosclerotic heart disease of native coronary artery without angina pectoris; I48.0 Paroxysmal atrial fibrillation; I65.29 Occlusion and stenosis of unspecified carotid artery; I25.2 Old myocardial infarction; Z59.7 Insufficient social insurance and welfare support; Z79.01 Long term (current) use of anticoagulants; Z79.4 Long term (current) use of insulin; Z79.51 Long term (current) use of inhaled steroids; Z79.82 Long term (current) use of aspirin; Z79.890 Hormone replacement therapy; Z79.899 Other long term (current) drug therapy; Z85.51 Personal history of malignant neoplasm of bladder; Z86.718 Personal history of other venous thrombosis and embolism; Z95.5 Presence of coronary angioplasty implant and graft; Z79.84 Long term (current) use of oral hypoglycemic drugs; Z87.891 Personal history of nicotine dependence
CPT/HCPCS: 36415; 51702; 71046; 77387; 77412; 80048; 80053; 83605; 83735; 83880; 84484; 85025; 85610; 85730; 93005; 94640; 94760; 96374; 99285

== ENCOUNTER 2023-09-12 09:51 | Emergency (ER) | payer MEDICARE ==
[2023-09-12 10:21] VITALS: TEMP 98.6
--- NOTE | 2023-09-12 11:28 | ED ---
General Adult HPI - General Chief complaint: Fall Stated complaint: WEAKNESS/FALL Time Seen by Provider: 09/12/23 10:16 Source: patient Mode of arrival: ambulatory Limitations: no limitations - History of Present Illness Initial comments: Dictation was produced using [employer] dictation software. please excuse any grammatical, word or spelling errors. Chief Complaint: 73-year-old male presents after fall History of Present Illness: 73-year-old male he fell. He fell yesterday and today. Yesterday when he fell patient's family member was able to pick him up and put him on a chair. Today he fell and was there with his other family member who was not strong enough to help him. She called EMS and EMS recommended the patient be seen in the emergency department. Patient states he fell because he felt like his legs were giving out under him. Patient has any head or neck pain. Patient does take anti-coagulation medications. Patient has no other complaints. The ROS documented in this emergency department record has been reviewed and confirmed by me. Those systems with pertinent positive or negative responses have been documented in the HPI. All other systems are other negative and/or noncontributory. - Related Data Home Medications Medication Instructions Recorded Confirmed Atorvastatin [Lipitor] 80 mg PO DAILY 05/13/20 09/06/23 Liraglutide [Victoza 3-Sam] 1.8 mg SQ DAILY 08/04/23 09/06/23 Albuterol Sulfate [Albuterol 1 puff INHALATION RT-Q4H PRN 08/17/23 09/06/23 Sulfate Hfa] Calcium Carb-Vit D 500Mg-5Mcg 1 tab PO DAILY 08/17/23 09/06/23 [Oscal 500+D 5 Mcg (200 Iu)] Budesonide/Formoterol Fumarate 1 puff INHALATION RT-BID 09/06/23 09/06/23 [Symbicort 80-4.5 Mcg Inhaler] HYDROcodone/APAP 7.5-325MG [[place] 1 tab PO Q4H PRN 09/06/23 09/06/23 7.5-325] Ipratropium-Albuterol Nebulize 3 ml INHALATION RT-TID@08,14,21 09/06/23 09/06/23 [Duoneb 0.5 mg-3 mg/3 ml Soln] Morphine Sulfate ER [Ms Contin] 30 mg PO Q12HR 09/06/23 09/06/23 Pantoprazole [Protonix] 40 mg PO AC-BID@0800,1700 09/06/23 09/06/23 Sennosides/Docusate Sodium 1 tab PO BID 09/06/23 09/06/23 [Senna-S 8.6-50 mg Tablet] hydrALAZINE HCL [Apresoline] 75 mg PO QID@08,12,,09/06/23 09/06/23 Previous Rx's Medication Instructions Recorded Aspirin 81 mg PO DAILY #90 chewable 07/25/19 Apixaban [Eliquis] 5 mg PO BID #60 tab 08/10/23 Magnesium Oxide [Mag-Ox] 400 mg PO DAILY #30 tab 08/10/23 Metoprolol Tartrate [Lopressor] 50 mg PO BID #60 tab 08/10/23 amLODIPine [Norvasc] 10 mg PO DAILY #30 tab 08/10/23 Acetaminophen Tab [Tylenol] 650 mg PO Q6HR PRN tab 08/31/23 Levothyroxine Sodium [Synthroid] 25 mcg PO DAILY@0630 #30 tab 08/31/23 Loratadine [Claritin] 5 mg PO DAILY #30 tab 08/31/23 Tamsulosin [Flomax] 0.4 mg PO DAILY #30 cap 08/31/23 Calcium Carbonate [Tums] 1,000 mg PO Q4HR PRN tab 09/11/23 Furosemide [Lasix] 80 mg PO BID@0900,1600 #60 tab 09/11/23 Lactulose [Cephulac] 20 gm PO DAILY PRN #200 ml 09/11/23 metOLazone [Zaroxolyn] 5 mg PO DAILY #30 tab 09/11/23 Allergies Allergy/AdvReac Type Severity Reaction Status Date / Time No Known Allergies Allergy Verified 09/12/23 09:58 Review of Systems ROS Statement: Those systems with pertinent positive or pertinent negative responses have been documented in the HPI. ROS Other: All systems not noted in ROS Statement are negative. Past Medical History Past Medical History: Coronary Artery Disease (CAD), Cancer, Diabetes Mellitus, Hyperlipidemia, Hypertension, Myocardial Infarction (IN), Osteoarthritis (OA) Additional Past Medical History / Comment(s): Bladder cancer stage with treatment, in remission since 2020. IDDM type II, post polio syndrome,leg rafi th discrepancy, bronchitis, chronic low back pain. Last Myocardial Infarction Date:: 07/23/19 History of Any Multi-Drug Resistant Organisms: None Reported Past Surgical History: Heart Catheterization With Stent, Orthopedic Surgery Additional Past Surgical History / Comment(s): Cystoscopy, TURBT x2, closure of patent urachus bladder tumor as infant, R leg surgery d/t polio-lengthening, cardiac stents 2018; Right hip surgery 11/03/2022 Past Anesthesia/Blood Transfusion Reactions: No Reported Reaction Date of Last Stent Placement:: 07/23/19 Past Psychological History: No Psychological Hx Reported Smoking Status: Former smoker Past Alcohol Use History: None Reported Past Drug Use History: None Reported - Past Family History Father History Unknown: Yes Mother Additional Family Medical History / Comment(s): Mother of in a MVA when pt was 15 yrs old. Brother(s) Additional Family Medical History / Comment(s): Pt has one brother who of a bowel problem and another brother that of a ruptured aneurysm. General Exam - General Exam Comments Initial Comments: PHYSICAL EXAM: General Impression: Alert and oriented x3, not in acute distress HEENT: Normocephalic atraumatic, extra-ocular movements intact, pupils equal and reactive to light bilaterally, mucous membranes moist. Cardiovascular: Heart regular rate and rhythm Chest: Able to complete full sentences, no retractions, no tachypnea Abdomen: abdomen soft, non-tender, non-distended, no organomegaly Musculoskeletal: Pulses present and equal in all extremities, no peripheral edema Motor: no focal deficits noted Neurological: CN II-XII grossly intact, no focal motor or sensory deficits noted Skin: Intact with no visualized rashes Psych: Normal affect and mood Limitations: no limitations Course Vital Signs 09/12/23 09/12/23 09:54 12:38 Temperature 98.6 F Pulse Rate 97 87 Respiratory 18 18 Rate Blood Pressure 130/66 132/64 O2 Sat by Pulse 94 L 97 Oximetry EKG Findings - EKG Comments: EKG Findings:: My EKG interpretation: Ventricular rate 97, sinus rhythm,. Interval T12, QRS 110, QTc 413. No IN prolongation, no QTC prolongation, no ST or T-wave changes noted. EKG compared to 09/06/2023 showing no changes. Overall, this EKG is unremarkable Medical Decision Making - Medical Decision Making Was pt. sent in by a medical professional or institution (, [facility], NEW CAR SALESPERSON, urgent care, hospital, or [facility]...) When possible be specific @ -No Did you speak to anyone other than the patient for history (EMS, parent, family, police, friend...)? What history was obtained from this source @ -The bedside states that patient is significantly weak and unable to function at home and is falling frequently Did you review nursing and triage notes (agree or disagree)? Why? @ -I reviewed and agree with nursing and triage notes Were old charts reviewed (outside hosp., previous admission, EMS record, old EKG, old radiological studies, urgent care reports/EKG's, [facility] records)? Report findings @ -No old charts were reviewed Differential Diagnosis (chest pain, altered mental status, abdominal pain women, abdominal pain men, vaginal bleeding, musculoskeletal, weakness, fever, dyspnea , syncope, headache, dizziness, GI bleed, back pain, seizure, CVA, palpatations, mental health)? @ -Differential Weakness: Hypoglycemia, shock, sepsis, hyponatremia, anemia, infection, IN, ETOH, adverse medicine reaction, overdose, stroke, this is not meant to be an all-inclusive list. EKG interpreted by me (3pts min.). @ -See above X-rays interpreted by me (1pt min.). @ -None done CT interpreted by me (1pt min.). @ -Computed tomography scan of the head and C-spine shows no acute processes. U/S interpreted by me (1pt. min.). @ -None done What testing was considered but not performed or refused? (CT, X-rays, U/S, labs)? Why? @ -None What meds were considered but not given or refused? Why? @ -None Did you discuss the management of the patient with other professionals (professionals i.e. [facility], NEW CAR SALESPERSON, lab, RT, psych nurse, director of social media marketing, pediatric audiologist, teacher, supervisor dog license officer, director case)? Give summary @ -discussed with hospitalist for admission Was smoking cessation discussed for >3mins.? @ -No Was critical care preformed (if so, how long)? @ -No Were there social determinants of health that impacted care today? How? (Homelessness, low income, unemployed, alcoholism, drug addiction, transportation, low edu. Level, literacy, decrease access to med. care, half-way, rehab)? @ -No Was there de-escalation of care discussed even if they declined (Discuss DNR or withdrawal of care, Hospice)? DNR status @ -No What co-morbidities impacted this encounter? (DM, HTN, Smoking, COPD, CAD, Cancer, CVA, ARF, Chemo, Hep., AIDS, mental health diagnosis, sleep apnea, morbid obesity)? @ -None Was patient admitted / discharged? Hospital course, mention meds given and route, prescriptions, significant lab abnormalities, going to OR and other pertinent info. @ -73-year-old male presents after multiple falls in the last 48 hours. Patient recently discharged. Vital signs upon arrival are within acceptable limits. Imaging studies are negative. Patient states she's too weak to go home. Case discussed with hospitalist was willing to accept patients care for admission. Undiagnosed new problem with uncertain prognosis? @ -No Drug Therapy requiring intensive monitoring for toxicity (Heparin, Nitro, Insulin, Cardizem)? @ -No Were any procedures done? @ -No Diagnosis/symptom? Acute, or Chronic, or Acute on Chronic? Uncomplicated (without systemic symptoms) or Complicated (systemic symptoms)? @ -Grave disability Side effects of treatment? @ -No Exacerbation, Progression, or Severe Exacerbation? @ -No Poses a threat to life or bodily function? How? (Chest pain, [place], [place], pneumonia, PE, COPD, DKA, ARF, appy, cholecystitis, CVA, Diverticulitis, Homicidal, Suicidal, threat to staff... and all critical care pts) @ -yes Disposition Clinical Impression: Gravely disabled Disposition: ADMITTED IP TO THIS [facility] Condition: Fair Referrals: Sukhjinder Rubio MD [Primary Care Provider] - 1-2 days Decision Time: 12:45
--- NOTE | 2023-09-12 11:40 | CT ---
EXAMINATION TYPE: CT brain cspine wo con CT DLP: 1433 mGycm, Automated exposure control for dose reduction was used. DATE OF EXAM: 09/12/2023 10:52 AM COMPARISON: 08/05/2023. CLINICAL INDICATION:Male, 73 years old with history of fall; Fall TECHNIQUE: Brain: Multiple axial CT images of the brain were obtained without IV contrast. Cspine: Axial CT images from the skull base to the inferior aspect of T2 we obtained without intraven ous contrast. Coronal and sagittal reformatted images were also reviewed. FINDINGS: Brain: Extra-axial spaces: No abnormal extra-axial fluid collections. Ventricular system: Within normal limits Cerebral parenchyma: No acute intraparenchymal hemorrhage or mass effect. The guerra-white junction is well differentiated. Cerebellum: Unremarkable. Mass effect: No evidence of midline shift. Intracranial vasculature: unremarkable Soft tissues: No evidence for scalp hematoma. Partially visualized left neck mass as described below. Calvarium/osseous structures: No depressed skull fracture. Paranasal sinuses and mastoid air cells: Clear. Visualized orbits: Orbital contents are intact. Cervical spine: Fracture: None. Osseous structures: Multilevel degenerative disc disease changes with endplate spurring and disc oste ophyte complex's. Vertebral alignment: Within normal limits. Spinal canal/Neural Foramina: No evidence of significant spinal canal narrowing. No evidence for sign ificant neural foraminal stenosis. Neck soft tissues: There is heterogenous appearance of the left neck with underlying mass felt to be present in the parotid space with skin thickening and multiple enlarged lymph nodes extending down in to the left neck/shoulder. Other: The airway is patent. There is a new left pleural effusion. IMPRESSION: 1. No acute intracranial process. 2. There is a complex left neck mass which has increased in size from 08/05/2023.. Clinical correlat ion. Consider ultrasound and tissue sampling. Overall given the lymphadenopathy in the neck malignanc y is highly concerning. Given central location on the prior gland 8 parotid gland lesion such as jamil ocystic carcinoma versus other etiologies should be considered. Given skin thickening dermal involvem ent is thought to be present. PET/CTs recommended. 3. No evidence of cervical spine fracture. 4. Mild multilevel degenerative disc disease. 5. Left pleural effusion.
[2023-09-12] MEDS ORDERED: NALOXONE 0.4 MG/ML 1 ML VIAL IV PRN (12:39)
[2023-09-12] MEDS ORDERED: SODIUM CHLORIDE 0.9% 1,000 ML IV SCH (12:45)
[2023-09-12 12:46] LABS: Basophils % (A) 0 %; Eosinophils # (A) 0.1 k/uL (0-0.7); Eosinophils % (A) 1 %; HGB 9.6 gm/dL (13.0-17.5); Lymphocytes # (A) 0.4 k/uL (1.0-4.8); Lymphocytes % (A) 4 %; MCH 34.7 pg (25.0-35.0); MCHC 34.1 g/dL (31.0-37.0); MCV 101.5 fL (80.0-100.0); Macrocytosis Slight; Mean Platelet Volume 10.6; Monocytes # (A) 0.5 k/uL (0-1.0); Monocytes % (A) 5 %; Neutrophils # (A) 9.2 k/uL (1.3-7.7); Neutrophils % (A) 89 %; Platelet Count 240 k/uL (150-450); RBC 2.76 m/uL (4.30-5.90); RDW 12.9 % (11.5-15.5); WBC 10.3 k/uL (3.8-10.6)
--- NOTE | 2023-09-12 13:04 | ED ---
Medical Decision Making - Lab Data Result diagrams: 09/12/23 12:35 Lab Results 09/12/23 Range/Units 12:35 WBC 10.3 (3.8-10.6) k/uL RBC 2.76 L (4.30-5.90) m/uL Hgb 9.6 L (13.0-17.5) gm/dL Hct 28.0 L (39.0-53.0) % MCV 101.5 H (80.0-100.0) fL MCH 34.7 (25.0-35.0) pg MCHC 34.1 (31.0-37.0) g/dL RDW 12.9 (11.5-15.5) % Plt Count 240 (150-450) k/uL MPV 10.6 Neutrophils % 89 % Lymphocytes % 4 % Monocytes % 5 % Eosinophils % 1 % Basophils % 0 % Neutrophils # 9.2 H (1.3-7.7) k/uL Lymphocytes # 0.4 L (1.0-4.8) k/uL Monocytes # 0.5 (0-1.0) k/uL Eosinophils # 0.1 (0-0.7) k/uL Basophils # 0.0 (0-0.2) k/uL Macrocytosis Slight Disposition Clinical Impression: Fall Disposition: HOME SELF-CARE Condition: Fair Instructions (If sedation given, give patient instructions): Fall Prevention for Older Adults (ED) Is patient prescribed a controlled substance at d/c from ED?: No Referrals: Sukhjinder Rubio MD [Primary Care Provider] - 1-2 days Time of Disposition: 13:04
[2023-09-12 13:05] LABS: African American GFR (CKD) 29 (>60 ml/min/1.73 sqM); Anion Gap 13 mmol/L; Blood Urea Nitrogen 47 mg/dL (9-20); Calcium 8.8 mg/dL (8.4-10.2); Carbon Dioxide 36 mmol/L (22-30); Chloride 84 mmol/L (98-107); Glucose 187 mg/dL (74-99); Non-African American GFR(CKD) 25 (>60 ml/min/1.73 sqM); Potassium 2.9 mmol/L (3.5-5.1); Sodium 133 mmol/L (137-145)
[2023-09-12 15:42] VITALS: BP 156/74; PULSE 75; RESP 22
== END 2023-09-12 15:22 | disposition home or self-care (01) ==
LOC: EC 09:51
DX: Z73.6 Limitation of activities due to disability (principal); I25.10 Atherosclerotic heart disease of native coronary artery without angina pectoris; I10 Essential (primary) hypertension; I25.2 Old myocardial infarction; E78.5 Hyperlipidemia, unspecified; E11.9 Type 2 diabetes mellitus without complications; M19.90 Unspecified osteoarthritis, unspecified site; Z87.891 Personal history of nicotine dependence; Z79.51 Long term (current) use of inhaled steroids; Z79.4 Long term (current) use of insulin; Z79.899 Other long term (current) drug therapy; W18.30XA Fall on same level, unspecified, initial encounter
CPT/HCPCS: 36415; 70450; 72125; 80048; 85025; 93005; 99285

== ENCOUNTER 2023-10-09 08:05 | Inpatient (IN) | payer MEDICARE ==
[2023-10-09] MEDS ORDERED: IBUPROFEN 600 MG TAB PO STA (08:18)
[2023-10-09] MEDS ORDERED: ACETAMINOPHEN TAB 500 MG TAB PO STA (08:18)
[2023-10-09] MEDS: SODIUM CHLORIDE 0.9% 500 ML 500 ML IV SCH ×2 (08:25→10:38)
--- NOTE | 2023-10-09 08:25 | ED ---
General Adult HPI - General Chief complaint: Recheck/Abnormal Lab/Rx Stated complaint: Fever Time Seen by Provider: 10/09/23 08:10 Source: patient, RN notes reviewed, old records reviewed Mode of arrival: EMS Limitations: no limitations - History of Present Illness Initial comments: This is a 73-year-old male with a past medical history of throat cancer per the patient. Patient states she's had left-sided swelling and mass effect on the left side of his face for weeks he states his been unchanged he only differences except a little more swelling around the eye. [facility] from [facility] because he spiked a fever. Patient states he has been coughing a little more lately denies shortness of breath. Patient states he has had a l ittle bit of sputum production. Patient denies any chest pain or palpitations. Patient denies any abdominal pain. Patient denies any nausea vomiting diarrhea. Patient denies any dysuria hematuria urinary frequency. Patient denies any back pain. Patient states she's on eliquis and he was diagnosed with a blood clot on the left side weeks ago. - Related Data Home Medications Medication Instructions Recorded Confirmed Atorvastatin [Lipitor] 80 mg PO DAILY 05/13/20 10/09/23 Liraglutide [Victoza 3-Sam] 1.8 mg SQ DAILY 08/04/23 10/09/23 Albuterol Sulfate [Albuterol 1 puff INHALATION RT-Q6H PRN 08/17/23 10/09/23 Sulfate Hfa] Budesonide/Formoterol Fumarate 2 puff INHALATION RT-BID 09/06/23 10/09/23 [Symbicort 80-4.5 Mcg Inhaler] HYDROcodone/APAP 7.5-325MG [[place] 1 tab PO Q6H PRN 09/06/23 10/09/23 7.5-325] Ipratropium-Albuterol Nebulize 3 ml INHALATION RT-Q6H 09/06/23 10/09/23 [Duoneb 0.5 mg-3 mg/3 ml Soln] Pantoprazole [Protonix] 40 mg PO AC-BID@0800,1700 09/06/23 10/09/23 Sennosides/Docusate Sodium 1 tab PO BID 09/06/23 10/09/23 [Senna-S 8.6-50 mg Tablet] Acetaminophen [Tylenol 8 Hour] 650 mg PO Q8H PRN 10/09/23 10/09/23 Calcium Carbonate [Tums] 1,000 mg PO PC-TID 10/09/23 10/09/23 Cholecalciferol [Vitamin D3 (25 50 mcg PO DAILY 10/09/23 10/09/23 Mcg = 1000 Iu)] Insulin Glargine,Hum.rec.anlog 20 units SQ HS 10/09/23 10/09/23 [Lantus Solostar Pen] Insulin Lispro [humaLOG Kwikpen] 4 unit SQ AC-TID 10/09/23 10/09/23 Insulin Lispro [humaLOG Kwikpen] See Protocol SQ ACHS 10/09/23 10/09/23 Ipratropium-Albuterol Nebulize 3 ml INHALATION RT-Q6H PRN 10/09/23 10/09/23 [Duoneb 0.5 mg-3 mg/3 ml Soln] Lactulose [Cephulac] 20 gm PO DAILY 10/09/23 Levothyroxine Sodium [Synthroid] 25 mcg PO DAILY@0700 10/09/23 10/09/23 Previous Rx's Medication Instructions Recorded Aspirin 81 mg PO DAILY #90 chewable 07/25/19 Apixaban [Eliquis] 5 mg PO BID #60 tab 08/10/23 Magnesium Oxide [Mag-Ox] 400 mg PO DAILY #30 tab 08/10/23 Metoprolol Tartrate [Lopressor] 50 mg PO BID #60 tab 08/10/23 amLODIPine [Norvasc] 10 mg PO DAILY #30 tab 08/10/23 Loratadine [Claritin] 5 mg PO DAILY #30 tab 08/31/23 Tamsulosin [Flomax] 0.4 mg PO DAILY #30 cap 08/31/23 Furosemide [Lasix] 80 mg PO BID@0900,1600 #60 tab 09/11/23 Allergies Allergy/AdvReac Type Severity Reaction Status Date / Time No Known Allergies Allergy Verified 10/09/23 09:07 Review of Systems ROS Statement: Those systems with pertinent positive or pertinent negative responses have been documented in the HPI. ROS Other: All systems not noted in ROS Statement are negative. Past Medical History Past Medical History: Coronary Artery Disease (CAD), Cancer, Diabetes Mellitus, Hyperlipidemia, Hypertension, Myocardial Infarction (NH), Osteoarthritis (OA) Additional Past Medical History / Comment(s): Bladder cancer stage with treatment, in remission since 2020. IDDM type II, post polio syndrome,leg length discrepancy, bronchitis, chronic low back pain. Last Myocardial Infarction Date:: 07/23/19 History of Any Multi-Drug Resistant Organisms: None Reported Past Surgical History: Heart Catheterization With Stent, Orthopedic Surgery Additional Past Surgical History / Comment(s): Cystoscopy, TURBT x2, closure of patent urachus bladder tumor as , R leg surgery d/t polio-lengthening, cardiac stents 2018; Right hip surgery 11/03/2022 Past Anesthesia/Blood Transfusion Reactions: No Reported Reaction Date of Last Stent Placement:: 07/23/19 Past Psychological History: No Psychological Hx Reported Smoking Status: Former smoker Past Alcohol Use History: None Reported Past Drug Use History: None Reported - Past Family History Father History Unknown: Yes Mother Additional Family Medical History / Comment(s): Mother of in a MVA when pt was 15 yrs old. Brother(s) Additional Family Medical History / Comment(s): Pt has one brother who of a bowel problem and another brother that of a ruptured aneurysm. General Exam - General Exam Comments Initial Comments: GENERAL: Patient is well-developed and well-nourished. Patient is nontoxic and well- hydrated and is in no acute distress. ENT: Neck is soft and supple. No significant lymphadenopathy is noted. Oropharynx i s clear. Moist mucous membranes. Neck has full range of motion without eliciting any pain. Patient's left cheek is swollen nose a firmness to the area that consistent with possibly a mass. Patient states this is unchanged. Area is mildly erythematous EYES: The sclera were anicteric and conjunctiva were pink and moist. Extraocular movements were intact and pupils were equal round and reactive to light. Eyelids were unremarkable. PULMONARY: Unlabored respirations. Good breath sounds bilaterally. No audible rales rhonchi or wheezing was noted. CARDIOVASCULAR: There is a regular rate and rhythm without any murmurs gallops or rubs. ABDOMEN: Soft and nontender with normal bowel sounds. SKIN: Skin is clear with no lesions or rashes and otherwise unremarkable. NEUROLOGIC: Patient is alert and oriented x3. Cranial nerves II through XII are grossly intact. Motor and sensory are also intact. Normal speech, volume and content. Symmetrical smile. MUSCULOSKELETAL: Normal extremities with adequate strength and full range of motion. Left upper arm is swollen LYMPHATICS: No significant lymphadenopathy is noted PSYCHIATRIC: Normal psychiatric evaluation. Limitations: no limitations Course Vital Signs 10/09/23 10/09/23 10/09/23 08:08 10:07 11:50 Temperature 100 F H 98.1 F Pulse Rate 90 84 78 Respiratory 18 18 18 Rate Blood Pressure 126/76 111/73 114/57 O2 Sat by Pulse 93 L 95 98 Oximetry Medical Decision Making - Medical Decision Making EKG shows a sinus rhythm at 89 bpm MT interval 294 QRS is 89 QT interval 371 QTC is 418. Patient's EKG shows no ST segment elevation or depression. Was pt. sent in by a medical professional or institution ([facility], [employer], urgent care, hospital, or [facility]...) When possible be specific @ -Was sent in by [facility] Did you speak to anyone other than the patient for history (EMS, parent, family, police, friend...)? What history was obtained from this source @ -I spoke with the patient's because of the history Did you review nursing and triage notes (agree or disagree)? Why? @ -I reviewed and agree with nursing and triage notes Were old charts reviewed (outside hosp., previous admission, EMS record, old EKG, old radiological studies, urgent care reports/EKG's, [facility] records)? Report findings @ -I reviewed the charts came with the patient as well as previous charts or previous lab work Differential Diagnosis (chest pain, altered mental status, abdominal pain women, abdominal pain men, vaginal bleeding, weakness, fever, dyspnea, syncope, headache, dizziness, GI bleed, back pain, seizure, CVA, palpatations, mental health, musculoskeletal)? @ -Differential Weakness: Hypoglycemia, shock, sepsis, hyponatremia, anemia, infection, NH, ETOH, adverse medicine reaction, overdose, stroke, this is not meant to be an all-inclusive list. EKG interpreted by me (3pts min.). @ -As above X-rays interpreted by me (1pt min.). @ -No acute abnormality CT interpreted by me (1pt min.). @ -None done U/S interpreted by me (1pt. min.). @ -None done What testing was considered but not performed or refused? (CT, X-rays, U/S, labs)? Why? @ -None What meds were considered but not given or refused? Why? @ -None Did you discuss the management of the patient with other professionals (professionals i.e. , PA, ORCHESTRA TEACHER, lab, RT, psych nurse, nephrology social worker, rn procedures, teacher, hydrographical technical officer, piano case maker)? Give summary @ -With Dr. Chacon about admitting the patient he agreed to admit the patient Was smoking cessation discussed for >3mins.? @ -No Was critical care preformed (if so, how long)? @ -No Were there social determinants of health that impacted care today? How? (Homelessness, low income, unemployed, alcoholism, drug addiction, transportation, low edu. Level, literacy, decrease access to med. care, snf, rehab)? @ -No Was there de-escalation of care discussed even if they declined (Discuss DNR or withdrawal of care, Hospice)? DNR status @ -No What co-morbidities impacted this encounter? (DM, HTN, Smoking, COPD, CAD, Cancer, CVA, ARF, Chemo, Hep., AIDS, mental health diagnosis, sleep apnea, morbid obesity)? @ -None Was patient admitted / discharged? Hospital course, mention meds given and route, prescriptions, significant lab abnormalities, going to OR and other pertinent info. @ -Patient's x-ray showed no acute abnormality however the patient did have colon and I will begin the room to speak with him and his he was too weak he felt back to the [facility] after rehabilitation so patient was admitted to Dr. Chacon. Undiagnosed new problem with uncertain prognosis? @ -No Drug Therapy requiring intensive monitoring for toxicity (Heparin, Nitro, Insulin, Cardizem)? @ -No Were any procedures done? @ -No Diagnosis/symptom? @ -COVID Acute, or Chronic, or Acute on Chronic? @ -Acute Uncomplicated (without systemic symptoms) or Complicated (systemic symptoms)? @ -Complicated Side effects of treatment? @ -No Exacerbation, Progression, or Severe Exacerbation? @ -No Poses a threat to life or bodily function? How? (Chest pain, USA, NH, pneumonia, PE, COPD, DKA, ARF, appy, cholecystitis, CVA, Diverticulitis, Homicidal, Suicidal, threat to staff... and all critical care pts) @ -No - Lab Data Result diagrams: 10/09/23 08:21 10/09/23 08:21 Lab Results 10/09/23 10/09/23 10/09/23 Range/Units 08:21 08:21 08:21 WBC 8.9 (3.8-10.6) k/uL RBC 2.51 L (4.30-5.90) m/uL Hgb 8.6 L (13.0-17.5) gm/dL Hct 25.9 L (39.0-53.0) % MCV 103.0 H (80.0-100.0) fL MCH 34.1 (25.0-35.0) pg MCHC 33.1 (31.0-37.0) g/dL RDW 14.5 (11.5-15.5) % Plt Count 149 L (150-450) k/uL MPV 10.5 Neutrophils % 90 % Lymphocytes % 3 % Monocytes % 5 % Eosinophils % 1 % Basophils % 0 % Neutrophils # 8.0 H (1.3-7.7) k/uL Lymphocytes # 0.3 L (1.0-4.8) k/uL Monocytes # 0.4 (0-1.0) k/uL Eosinophils # 0.1 (0-0.7) k/uL Basophils # 0.0 (0-0.2) k/uL Macrocytosis Slight PT 12.3 (10.0-12.5) sec INR 1.2 H (<1.2) APTT 28.3 (22.0-30.0) sec Sodium 134 L (137-145) mmol/L Potassium 4.0 (3.5-5.1) mmol/L Chloride 99 (98-107) mmol/L Carbon Dioxide 28 (22-30) mmol/L Anion Gap 7 mmol/L BUN 32 H (9-20) mg/dL Creatinine 1.22 (0.66-1.25) mg/dL Est GFR (CKD-EPI)AfAm 69 (>60 ml/min/1.73 sqM) Est GFR (CKD-EPI)NonAf 60 (>60 ml/min/1.73 sqM) Glucose 151 H (74-99) mg/dL Plasma Lactic Acid Bryan (0.7-2.0) mmol/L Calcium 7.5 L (8.4-10.2) mg/dL Total Bilirubin 0.6 (0.2-1.3) mg/dL AST 20 (17-59) U/L ALT 17 (4-49) U/L Alkaline Phosphatase 91 (38-126) U/L Lactate Dehydrogenase (120-246) U/L C-Reactive Protein (<1.0) mg/dL Total Protein 5.0 L (6.3-8.2) g/dL Albumin 2.5 L (3.5-5.0) g/dL Urine Color Urine Appearance (Clear) Urine pH (5.0-8.0) Ur Specific [place] (1.001-1.035) Urine Protein (Negative) Urine Glucose (UA) (Negative) Urine Ketones (Negative) Urine Blood (Negative) Urine Nitrite (Negative) Urine Bilirubin (Negative) Urine Urobilinogen (<2.0) mg/dL Ur Leukocyte Esterase (Negative) Urine WBC (0-5) /hpf Ur Squamous Epith Cells (0-4) /hpf Hyaline Casts (0-2) /lpf Influenza Type A (PCR) (Not Detectd) Influenza Type B (PCR) (Not Detectd) RSV (PCR) (Not Detectd) SARS-CoV-2 (PCR) (Not Detectd) 10/09/23 10/09/23 10/09/23 Range/Units 08:21 08:21 08:21 WBC (3.8-10.6) k/uL RBC (4.30-5.90) m/uL Hgb (13.0-17.5) gm/dL Hct (39.0-53.0) % MCV (80.0-100.0) fL MCH (25.0-35.0) pg MCHC (31.0-37.0) g/dL RDW (11.5-15.5) % Plt Count (150-450) k/uL MPV Neutrophils % % Lymphocytes % % Monocytes % % Eosinophils % % Basophils % % Neutrophils # (1.3-7.7) k/uL Lymphocytes # (1.0-4.8) k/uL Monocytes # (0-1.0) k/uL Eosinophils # (0-0.7) k/uL Basophils # (0-0.2) k/uL Macrocytosis PT (10.0-12.5) sec INR (<1.2) APTT (22.0-30.0) sec Sodium (137-145) mmol/L Potassium (3.5-5.1) mmol/L Chloride (98-107) mmol/L Carbon Dioxide (22-30) mmol/L Anion Gap mmol/L BUN (9-20) mg/dL Creatinine (0.66-1.25) mg/dL Est GFR (CKD-EPI)AfAm (>60 ml/min/1.73 sqM) Est GFR (CKD-EPI)NonAf (>60 ml/min/1.73 sqM) Glucose (74-99) mg/dL Plasma Lactic Acid Bryan 1.3 (0.7-2.0) mmol/L Calcium (8.4-10.2) mg/dL Total Bilirubin (0.2-1.3) mg/dL AST (17-59) U/L ALT (4-49) U/L Alkaline Phosphatase (38-126) U/L Lactate Dehydrogenase 183 (120-246) U/L C-Reactive Protein 14.0 H (<1.0) mg/dL Total Protein (6.3-8.2) g/dL Albumin (3.5-5.0) g/dL Urine Color Urine Appearance (Clear) Urine pH (5.0-8.0) Ur Specific [place] (1.001-1.035) Urine Protein (Negative) Urine Glucose (UA) (Negative) Urine Ketones (Negative) Urine Blood (Negative) Urine Nitrite (Negative) Urine Bilirubin (Negative) Urine Urobilinogen (<2.0) mg/dL Ur Leukocyte Esterase (Negative) Urine WBC (0-5) /hpf Ur Squamous Epith Cells (0-4) /hpf Hyaline Casts (0-2) /lpf Influenza Type A (PCR) Not Detected (Not Detectd) Influenza Type B (PCR) Not Detected (Not Detectd) RSV (PCR) Not Detected (Not Detectd) SARS-CoV-2 (PCR) Detected A (Not Detectd) 10/09/23 Range/Units 09:12 WBC (3.8-10.6) k/uL RBC (4.30-5.90) m/uL Hgb (13.0-17.5) gm/dL Hct (39.0-53.0) % MCV (80.0-100.0) fL MCH (25.0-35.0) pg MCHC (31.0-37.0) g/dL RDW (11.5-15.5) % Plt Count (150-450) k/uL MPV Neutrophils % % Lymphocytes % % Monocytes % % Eosinophils % % Basophils % % Neutrophils # (1.3-7.7) k/uL Lymphocytes # (1.0-4.8) k/uL Monocytes # (0-1.0) k/uL Eosinophils # (0-0.7) k/uL Basophils # (0-0.2) k/uL Macrocytosis PT (10.0-12.5) sec INR (<1.2) APTT (22.0-30.0) sec Sodium (137-145) mmol/L Potassium (3.5-5.1) mmol/L Chloride (98-107) mmol/L Carbon Dioxide (22-30) mmol/L Anion Gap mmol/L BUN (9-20) mg/dL Creatinine (0.66-1.25) mg/dL Est GFR (CKD-EPI)AfAm (>60 ml/min/1.73 sqM) Est GFR (CKD-EPI)NonAf (>60 ml/min/1.73 sqM) Glucose (74-99) mg/dL Plasma Lactic Acid Bryan (0.7-2.0) mmol/L Calcium (8.4-10.2) mg/dL Total Bilirubin (0.2-1.3) mg/dL AST (17-59) U/L ALT (4-49) U/L Alkaline Phosphatase (38-126) U/L Lactate Dehydrogenase (120-246) U/L C-Reactive Protein (<1.0) mg/dL Total Protein (6.3-8.2) g/dL Albumin (3.5-5.0) g/dL Urine Color Colorless Urine Appearance Clear (Clear) Urine pH 8.0 (5.0-8.0) Ur Specific [place] 1.010 (1.001-1.035) Urine Protein 1+ H (Negative) Urine Glucose (UA) Negative (Negative) Urine Ketones Negative (Negative) Urine Blood Negative (Negative) Urine Nitrite Negative (Negative) Urine Bilirubin Negative (Negative) Urine Urobilinogen <2.0 (<2.0) mg/dL Ur Leukocyte Esterase Negative (Negative) Urine WBC <1 (0-5) /hpf Ur Squamous Epith Cells <1 (0-4) /hpf Hyaline Casts 1 (0-2) /lpf Influenza Type A (PCR) (Not Detectd) Influenza Type B (PCR) (Not Detectd) RSV (PCR) (Not Detectd) SARS-CoV-2 (PCR) (Not Detectd) Disposition Clinical Impression: COVID, Generalized weakness Disposition: ADMITTED IP TO THIS HOSP Referrals: Slava Cortez DO [Primary Care Provider] - 1-2 days Time of Disposition: 12:51
[2023-10-09 08:32] LABS: Basophils % (A) 0 %; Eosinophils # (A) 0.1 k/uL (0-0.7); Eosinophils % (A) 1 %; HCT 25.9 % (39.0-53.0); HGB 8.6 gm/dL (13.0-17.5); Lymphocytes # (A) 0.3 k/uL (1.0-4.8); Lymphocytes % (A) 3 %; MCH 34.1 pg (25.0-35.0); MCHC 33.1 g/dL (31.0-37.0); Macrocytosis Slight; Mean Platelet Volume 10.5; Monocytes # (A) 0.4 k/uL (0-1.0); Monocytes % (A) 5 %; Neutrophils % (A) 90 %; Platelet Count 149 k/uL (150-450); RBC 2.51 m/uL (4.30-5.90); RDW 14.5 % (11.5-15.5); WBC 8.9 k/uL (3.8-10.6)
[2023-10-09 08:44] LABS: INR 1.2 (<1.2); Partial Thromboplastin Time 28.3 sec (22.0-30.0); Prothrombin Time 12.3 sec (10.0-12.5)
[2023-10-09 08:48] LABS: ALT 17 U/L (4-49); AST 20 U/L (17-59); African American GFR (CKD) 69 (>60 ml/min/1.73 sqM); Albumin 2.5 g/dL (3.5-5.0); Alkaline Phosphatase 91 U/L (38-126); Anion Gap 7 mmol/L; Blood Urea Nitrogen 32 mg/dL (9-20); Calcium 7.5 mg/dL (8.4-10.2); Carbon Dioxide 28 mmol/L (22-30); Chloride 99 mmol/L (98-107); Glucose 151 mg/dL (74-99); Non-African American GFR(CKD) 60 (>60 ml/min/1.73 sqM); Sodium 134 mmol/L (137-145); Total Bilirubin 0.6 mg/dL (0.2-1.3)
--- NOTE | 2023-10-09 09:10 | XR ---
EXAMINATION TYPE: XR chest 2V DATE OF EXAM: 10/09/2023 8:58 AM CLINICAL INDICATION:Male, 73 years old with history of Fever; [facility] COMPARISON: 09/06/2023 and before TECHNIQUE: XR chest 2V. Frontal PA and lateral views of the chest. FINDINGS: Lines/Tubes: EKG leads and other extraneous densities over the chest. No indwelling lines are seen. Heart/mediastinum: Cardiomediastinal silhouette is stable. Heart appears mildly enlarged. Partially calcified aorta. Pulmonary vascularity: Mild central congestion. Lungs/Pleura: Background COPD changes. Relatively stable left basilar opacity compared to prior, like ly a combination of pleural effusion with atelectasis/airspace disease. No sizable effusion on the ri ght. No new or worsening infiltrate or evidence of pneumothorax. Musculoskeletal: No acute osseous abnormality demonstrated in the limits of the exam. Degenerative c hanges of the thoracic spine and shoulders. Other findings: None. IMPRESSION: 1. Mild cardiomegaly with mild central vascular congestion. 2. COPD changes. 3. Relatively stable left basilar opacity compared to prior, likely a combination of pleural effusio n with atelectasis/airspace disease.
[2023-10-09 09:33] LABS: Appearance,Urine Clear (Clear); Bilirubin,Urine Negative (Negative); Blood,Urine Negative (Negative); Color,Urine Colorless; Glucose,Urine (UA) Negative (Negative); Hyaline Casts,Urine 1 /lpf (0-2); Ketones,Urine Negative (Negative); Leukocyte Esterase,Urine Negative (Negative); Nitrite,Urine Negative (Negative); Protein,Urine 1+ (Negative); Squamous Epithelial Cell,Urine <1 /hpf (0-4); Urobilinogen,Urine <2.0 mg/dL (<2.0); WBC,Urine <1 /hpf (0-5)
[2023-10-09] MEDS ORDERED: SODIUM CHLORIDE 0.9% 1,000 ML IV ONE (12:51)
[2023-10-09] MEDS ORDERED: DEXTROSE 50% SYRINGE 50 ML IVP PRN ×2 (18:27)
[2023-10-09] MEDS ORDERED: ONDANSETRON 4 MG/2 ML VIAL IVP PRN (18:28)
[2023-10-09] MEDS ORDERED: ACETAMINOPHEN TAB 325 MG TAB PO PRN (18:29)
[2023-10-09] MEDS ORDERED: LACTULOSE 20 GM/30 ML CUP PO PRN (18:29)
[2023-10-09 20:48] LABS: Glucose,Whole Blood 113 mg/dL (70-110)
[2023-10-09] MEDS: INSULIN ASPART (NovoLOG) 100 UNIT/ML VIAL SQ SCH (20:53)
[2023-10-09] MEDS: CALCIUM CARBONATE 500 MG CHEWABLE PO SCH (20:57)
[2023-10-09] MEDS: APIXABAN 5 MG TAB PO SCH (20:57)
[2023-10-09] MEDS: SENNOSIDES-DOCUSATE SODIUM 1 EACH TAB PO SCH (20:57)
[2023-10-09] MEDS: INSULIN DETEMIR (LEVEMIR) 100 UNIT/ML SYR SQ SCH (20:57)
[2023-10-09] MEDS: METOPROLOL TARTRATE 50 MG TAB PO SCH (21:02)
[2023-10-09] MEDS: SYMBICORT 80-4.5 MCG INHALER INHALATION SCH (21:47)
[2023-10-09] MEDS ORDERED: IPRATROPIUM-ALBUTEROL 3 ML NEB INHALATION PRN (22:19)
[2023-10-09] MEDS ORDERED: FUROSEMIDE 10 MG/ML 2 ML VIAL IV STA (22:20)
--- NOTE | 2023-10-09 22:24 | P.HPIM ---
History of Present Illness H&P Date: 10/09/23 Chief Complaint: Fever Patient is a 73-year-old male with a known history of metastatic high-grade urothelial carcinoma status post left neck mass lymph node biopsy, urothelial cancer status post chemo/RT in 06/2020, coronary artery disease with history of stent placement, chronic HFpEF, CKD stage IIIb with baseline creatinine level 1.5-1.7, diabetic nephropathy, diabetes type 2 insulin-dependent, hypertension, osteoarthritis, chronic low back pain, prior history of smoking was sent from [facility] due to complaints of fever. Patient has been coughing more than normal and mild shortness of breath and generalized weakness. Patient does have cough with clear sputum production. Otherwise denies any nausea vomiting or abdominal pain or diarrhea. Denies any dysuria or hematuria. Patient does have left upper extremity DVT diagnosed in July 2023 and is on Eliquis currently. On admission chest x-ray showed mild cardiomegaly with mild central vascular congestion. COPD changes. Relatively stable left basilar opacity compared to prior likely a combination of pleural effusion with atelectasis/airspace disease. EKG showed sinus rhythm with heart rate 89 Patient was recently admitted to hospital 09/11/2023 s/p treatment for acute on chronic CHF with preserved ejection fraction. Laboratory showed WBC 8.9 hemoglobin 8.6, MCV 103.0 and platelets 149 Sodium 134 potassium 4.0 chloride 99 bicarb is 28 BUN 32 and creatinine 1.22 and blood sugar is 151 lactic acid 1.3 and calcium 7.5 liver enzymes are not elevated CRP 14.0 albumin 2.5 B12 level is 581 and urinalysis is negative for infection COVID-19 PCR detected. Review of Systems Constitutional: Patient does have fever. No chills . Generalized weakness and fatigue. Abdomen: Patient denied any nausea or vomiting or abd. pain Cardiovascular: Patient denies any chest pain. Mild short of breath no palpitations. Respiratory: patient cough and congestion and no sputum production. Positive for shortness of breath Neurologic: Patient denied any numbness or tingling or headache. Musculoskeletal: Patient denies any complaints of joint swelling or deformity. Skin: Negative Psychiatric: Negative Endocrine: No heat or cold intolerance. No recent weight gain. Genitourinary: No dysuria or hematuria. All other 14 point ROS negative except the above Past Medical History Past Medical History: Coronary Artery Disease (CAD), Cancer, Diabetes Mellitus, Hyperlipidemia, Hypertension, Myocardial Infarction (MA), Osteoarthritis (OA) Additional Past Medical History / Comment(s): Bladder cancer stage with treatment, in remission since 2020. IDDM type II, post polio syndrome,leg length discrepancy, bronchitis, chronic low back pain. Last Myocardial Infarction Date:: 07/23/19 History of Any Multi-Drug Resistant Organisms: None Reported Past Surgical History: Heart Catheterization With Stent, Orthopedic Surgery Additional Past Surgical History / Comment(s): Cystoscopy, TURBT x2, closure of patent urachus bladder tumor as , R leg surgery d/t polio-lengthening, cardiac stents 2018; Right hip surgery 11/03/2022 Past Anesthesia/Blood Transfusion Reactions: No Reported Reaction Date of Last Stent Placement:: 07/23/19 Past Psychological History: No Psychological Hx Reported Additional Psychological History / Comment(s): Pt resides with his spouse. He is independent. He just started ambulating with a cane or walker Smoking Status: Former smoker Past Alcohol Use History: None Reported Additional Past Alcohol Use History / Comment(s): Pt started smoking in 1968 and quit 07/21/19. Prior ETOH abuse-pt states he hasnt had alcohol in months Past Drug Use History: None Reported - Past Family History Father History Unknown: Yes Mother Additional Family Medical History / Comment(s): Mother of in a MVA when pt was 15 yrs old. Brother(s) Additional Family Medical History / Comment(s): Pt has one brother who of a bowel problem and another brother that of a ruptured aneurysm. Medications and Allergies Home Medications Medication Instructions Recorded Confirmed Type Aspirin 81 mg PO DAILY #90 chewable 07/25/19 10/09/23 Rx Atorvastatin [Lipitor] 80 mg PO DAILY 05/13/20 10/09/23 History Liraglutide [Victoza 3-Sam] 1.8 mg SQ DAILY 08/04/23 10/09/23 History Apixaban [Eliquis] 5 mg PO BID #60 tab 08/10/23 10/09/23 Rx Magnesium Oxide [Mag-Ox] 400 mg PO DAILY #30 tab 08/10/23 10/09/23 Rx Metoprolol Tartrate [Lopressor] 50 mg PO BID #60 tab 08/10/23 10/09/23 Rx amLODIPine [Norvasc] 10 mg PO DAILY #30 tab 08/10/23 10/09/23 Rx Albuterol Sulfate [Albuterol 1 puff INHALATION RT-Q6H PRN 08/17/23 10/09/23 History Sulfate Hfa] Loratadine [Claritin] 5 mg PO DAILY #30 tab 08/31/23 10/09/23 Rx Tamsulosin [Flomax] 0.4 mg PO DAILY #30 cap 08/31/23 10/09/23 Rx Budesonide/Formoterol Fumarate 2 puff INHALATION RT-BID 09/06/23 10/09/23 History [Symbicort 80-4.5 Mcg Inhaler] HYDROcodone/APAP 7.5-325MG [[place] 1 tab PO Q6H PRN 09/06/23 10/09/23 History 7.5-325] Ipratropium-Albuterol Nebulize 3 ml INHALATION RT-Q6H 09/06/23 10/09/23 History [Duoneb 0.5 mg-3 mg/3 ml Soln] Pantoprazole [Protonix] 40 mg PO AC-BID@0800,1700 09/06/23 10/09/23 History Sennosides/Docusate Sodium 1 tab PO BID 09/06/23 10/09/23 History [Senna-S 8.6-50 mg Tablet] Furosemide [Lasix] 80 mg PO BID@0900,1600 #60 tab 09/11/23 10/09/23 Rx Acetaminophen [Tylenol 8 Hour] 650 mg PO Q8H PRN 10/09/23 10/09/23 History Calcium Carbonate [Tums] 1,000 mg PO PC-TID 10/09/23 10/09/23 History Cholecalciferol [Vitamin D3 (25 50 mcg PO DAILY 10/09/23 10/09/23 History Mcg = 1000 Iu)] Insulin Glargine,Hum.rec.anlog 20 units SQ HS 10/09/23 10/09/23 History [Lantus Solostar Pen] Insulin Lispro [humaLOG Kwikpen] 4 unit SQ AC-TID 10/09/23 10/09/23 History Insulin Lispro [humaLOG Kwikpen] See Protocol SQ ACHS 10/09/23 10/09/23 History Ipratropium-Albuterol Nebulize 3 ml INHALATION RT-Q6H PRN 10/09/23 10/09/23 History [Duoneb 0.5 mg-3 mg/3 ml Soln] Lactulose [Cephulac] 20 gm PO DAILY 10/09/23 History Levothyroxine Sodium [Synthroid] 25 mcg PO DAILY@0700 10/09/23 10/09/23 History Allergies Allergy/AdvReac Type Severity Reaction Status Date / Time No Known Allergies Allergy Verified 10/09/23 09:07 Physical Exam Vitals: Vital Signs Temp Pulse Pulse Resp BP BP Pulse Ox 10/09/23 18:28 98.0 F 86 19 143/57 97 10/09/23 15:53 82 20 109/61 98 10/09/23 11:50 78 18 114/57 98 10/09/23 10:07 98.1 F 84 18 111/73 95 10/09/23 08:08 100 F H 90 18 126/76 93 L Intake and Output 10/09/23 10/09/23 10/09/23 06:59 14:59 22:59 Other: Weight 84.368 kg 84.368 kg PHYSICAL EXAMINATION: Patient is lying in the bed comfortably, no acute distress, awake alert and oriented.. HEENT: Normocephalic. Neck is supple. Pupils reactive. Nostrils clear. Oral cavity is moist. Neck reveals no JVD, carotid bruits, or thyromegaly. CHEST EXAMINATION: Trachea is central. Symmetrical expansion. Bibasilar diminished sounds. No wheezing or rhonchi.. CARDIAC: Normal S1, S2 with no gallops. No murmurs ABDOMEN: Soft. Bowel sounds present. Nontender. No organomegaly. No abdominal bruits. Extremities: Bilateral lower extremity trace edema. Left upper extremity swelling with compression stocking in place. No clubbing or cyanosis Neurologically awake, alert, oriented x2-3 with well-coordinated movements. No focal deficits noted Skin: No rash or skin lesions. Psychiatric: Coperative. Nonsuicidal, Musculoskeletal: No joint swelling or deformity. Normal range of motion. Results CBC & Chem 7: 10/09/23 08:21 10/09/23 08:21 Labs: Abnormal Lab Results - Last 24 Hours (Table) 10/09/23 10/09/23 10/09/23 Range/Units 08:21 08:21 08:21 RBC 2.51 L (4.30-5.90) m/uL Hgb 8.6 L (13.0-17.5) gm/dL Hct 25.9 L (39.0-53.0) % MCV 103.0 H (80.0-100.0) fL Plt Count 149 L (150-450) k/uL Neutrophils # 8.0 H (1.3-7.7) k/uL Lymphocytes # 0.3 L (1.0-4.8) k/uL INR 1.2 H (<1.2) Sodium 134 L (137-145) mmol/L BUN 32 H (9-20) mg/dL Glucose 151 H (74-99) mg/dL POC Glucose (mg/dL) (70-110) mg/dL Calcium 7.5 L (8.4-10.2) mg/dL C-Reactive Protein (<1.0) mg/dL Total Protein 5.0 L (6.3-8.2) g/dL Albumin 2.5 L (3.5-5.0) g/dL Urine Protein (Negative) SARS-CoV-2 (PCR) (Not Detectd) 10/09/23 10/09/23 10/09/23 Range/Units 08:21 08:21 09:12 RBC (4.30-5.90) m/uL Hgb (13.0-17.5) gm/dL Hct (39.0-53.0) % MCV (80.0-100.0) fL Plt Count (150-450) k/uL Neutrophils # (1.3-7.7) k/uL Lymphocytes # (1.0-4.8) k/uL INR (<1.2) Sodium (137-145) mmol/L BUN (9-20) mg/dL Glucose (74-99) mg/dL POC Glucose (mg/dL) (70-110) mg/dL Calcium (8.4-10.2) mg/dL C-Reactive Protein 14.0 H (<1.0) mg/dL Total Protein (6.3-8.2) g/dL Albumin (3.5-5.0) g/dL Urine Protein 1+ H (Negative) SARS-CoV-2 (PCR) Detected A (Not Detectd) 10/09/23 Range/Units 20:47 RBC (4.30-5.90) m/uL Hgb (13.0-17.5) gm/dL Hct (39.0-53.0) % MCV (80.0-100.0) fL Plt Count (150-450) k/uL Neutrophils # (1.3-7.7) k/uL Lymphocytes # (1.0-4.8) k/uL INR (<1.2) Sodium (137-145) mmol/L BUN (9-20) mg/dL Glucose (74-99) mg/dL POC Glucose (mg/dL) 113 H (70-110) mg/dL Calcium (8.4-10.2) mg/dL C-Reactive Protein (<1.0) mg/dL Total Protein (6.3-8.2) g/dL Albumin (3.5-5.0) g/dL Urine Protein (Negative) SARS-CoV-2 (PCR) (Not Detectd) Thrombosis Risk Factor Assmnt - DVT/VTE Prophylaxis DVT/VTE Prophylaxis: Pharmacologic Prophylaxis ordered - Choose All That Apply Each Factor Represents 1 point: Obesity (BMI >25) Each Risk Factor Represents 2 Points: Age 61-74 years, Malignancy Each Risk Factor Represents 3 Points: History of DVT/PE Other congenital or acquired thrombophilia - If yes, enter type in comment: No Thrombosis Risk Factor Assessment Total Risk Factor Score: 8 Thrombosis Risk Factor Assessment Level: High Risk Assessment and Plan Assessment: Acute COVID-19 infection Fever cough and generalized weakness secondary above Metastatic urothelial carcinoma" chemo/RT 07/11/2020 and recent left neck mass s/p biopsy showing metastatic urothelial carcinoma. Received RT and is on hold due to recent hospital admission Mild acute on chronic CHF with preserved ejection fraction Chronic kidney disease stage IIIb with baseline creatinine level 1.5-1.7 Coronary artery disease with history of stent placement Diabetes type 2 insulin-dependent Normocytic anemia Osteoarthritis Chronic low back pain Prior history of smoking History of DVT left upper extremity in July 2023 currently on Eliquis Plan: Patient will be continued on gentle IV hydration. Continue with insulin sliding scale and resume and titrate dose as needed. Continue with symptomatic management and droplet/contact precautions. Follow-up CRP and LDH levels. And procalcitonin level. Patient will be given Lasix 20 mg IV x 1 Follow-up proBNP level Patient will be started back on diuretics Lasix and metolazone. Discussed with his at bedside in detail. Follow-up closely. Prognosis guarded. Time with Patient: Greater than 30
[2023-10-10 06:31] LABS: Glucose,Whole Blood 59 mg/dL (70-110)
[2023-10-10] MEDS: INSULIN ASPART (NovoLOG) 100 UNIT/ML VIAL SQ SCH ×7 (06:33→21:10)
[2023-10-10] MEDS: LEVOTHYROXINE 25 MCG TAB PO SCH (06:36)
[2023-10-10 07:07] LABS: Glucose,Whole Blood 77 mg/dL (70-110)
[2023-10-10] MEDS: ZINC SULFATE 220 MG CAP PO SCH (08:50)
[2023-10-10] MEDS: CHOLECALCIFEROL 25 MCG (1000 IU) TABLET PO SCH (08:50)
[2023-10-10] MEDS: LORATADINE 10 MG TAB PO SCH (08:50)
[2023-10-10] MEDS: ASCORBIC ACID 500 MG TAB PO SCH (08:50)
[2023-10-10] MEDS: SENNOSIDES-DOCUSATE SODIUM 1 EACH TAB PO SCH ×2 (08:50→21:27)
[2023-10-10] MEDS: CALCIUM CARBONATE 500 MG CHEWABLE PO SCH ×3 (08:50→17:15)
[2023-10-10] MEDS: ATORVASTATIN 80 MG TAB PO SCH (08:50)
[2023-10-10] MEDS: APIXABAN 5 MG TAB PO SCH ×2 (08:51→21:27)
[2023-10-10] MEDS: PANTOPRAZOLE 40 MG TABLET PO SCH ×2 (08:51→17:15)
[2023-10-10] MEDS: FUROSEMIDE 40 MG TAB PO SCH ×2 (08:51→17:15)
[2023-10-10] MEDS: METOPROLOL TARTRATE 50 MG TAB PO SCH ×2 (08:51→21:27)
[2023-10-10] MEDS: ASPIRIN 81 MG PO SCH (08:51)
[2023-10-10] MEDS: TAMSULOSIN 0.4 MG CAP.ER.24H PO SCH (08:51)
[2023-10-10] MEDS: MAGNESIUM OXIDE 400 MG TAB PO SCH (08:51)
[2023-10-10] MEDS: SYMBICORT 80-4.5 MCG INHALER INHALATION SCH ×2 (09:48→20:24)
[2023-10-10 10:22] LABS: HCT 28.5 % (39.0-53.0); HGB 9.3 gm/dL (13.0-17.5); Hypochromasia Slight; MCH 34.4 pg (25.0-35.0); MCHC 32.8 g/dL (31.0-37.0); MCV 104.9 fL (80.0-100.0); Macrocytosis Moderate; Mean Platelet Volume 10.1; Platelet Count 157 k/uL (150-450); RBC 2.72 m/uL (4.30-5.90); RDW 14.3 % (11.5-15.5); WBC 6.5 k/uL (3.8-10.6)
[2023-10-10 10:43] LABS: African American GFR (CKD) 70 (>60 ml/min/1.73 sqM); Anion Gap 9 mmol/L; Blood Urea Nitrogen 28 mg/dL (9-20); Calcium 7.6 mg/dL (8.4-10.2); Carbon Dioxide 27 mmol/L (22-30); Chloride 99 mmol/L (98-107); Glucose 68 mg/dL (74-99); Non-African American GFR(CKD) 61 (>60 ml/min/1.73 sqM); Potassium 3.8 mmol/L (3.5-5.1); Sodium 135 mmol/L (137-145)
[2023-10-10 10:47] LABS: NT-Pro-B-Type Natriuretic Pept 2160 pg/mL
[2023-10-10 11:40] LABS: Glucose,Whole Blood 63 mg/dL (70-110)
[2023-10-10 12:16] LABS: Glucose,Whole Blood 100 mg/dL (70-110)
[2023-10-10] MEDS: HYDROcodone/APAP 7.5-325MG 1 EACH TAB PO PRN (13:36)
[2023-10-10 17:07] LABS: Glucose,Whole Blood 115 mg/dL (70-110)
[2023-10-10 20:16] LABS: Glucose,Whole Blood 147 mg/dL (70-110)
[2023-10-10] MEDS: INSULIN DETEMIR (LEVEMIR) 100 UNIT/ML SYR SQ SCH (21:27)
--- NOTE | 2023-10-10 22:29 | P.PN ---
Subjective Progress Note Date: 10/10/23 Patient is a 73-year-old male with a known history of metastatic high-grade urothelial carcinoma status post left neck mass lymph node biopsy, urothelial cancer status post chemo/RT in 06/2020, coronary artery disease with history of stent placement, chronic HFpEF, CKD stage IIIb with baseline creatinine level 1.5-1.7, diabetic nephropathy, diabetes type 2 insulin-dependent, hypertension, osteoarthritis, chronic low back pain, prior history of smoking was sent from [facility] due to complaints of fever. Patient has been coughing more than normal and mild shortness of breath and generalized weakness. Patient does have cough with clear sputum production. Otherwise denies any nausea vomiting or abdominal pain or diarrhea. Denies any dysuria or hematuria. Patient does have left upper extremity DVT diagnosed in July 2023 and is on Eliquis currently. On admission chest x-ray showed mild cardiomegaly with mild central vascular congestion. COPD changes. Relatively stable left basilar opacity compared to prior likely a combination of pleural effusion with atelectasis/airspace disease. EKG showed sinus rhythm with heart rate 89 Patient was recently admitted to hospital 09/11/2023 s/p treatment for acute on chronic CHF with preserved ejection fraction. Laboratory showed WBC 8.9 hemoglobin 8.6, MCV 103.0 and platelets 149 Sodium 134 potassium 4.0 chloride 99 bicarb is 28 BUN 32 and creatinine 1.22 and blood sugar is 151 lactic acid 1.3 and calcium 7.5 liver enzymes are not elevated CRP 14.0 albumin 2.5 B12 level is 581 and urinalysis is negative for infection COVID-19 PCR detected. 10/10/2023 Patient is lying in the bed. Awake alert and oriented x 3. No complaints of chest pain. Shortness of breath is better as per patient. Currently on 2 L oxygen via nasal cannula. No nausea vomiting or abdominal pain. Left upper extremity still swollen. Continued on anticoagulation with Eliquis with recent history of DVT. Chest x-ray showed relatively stable left basilar opacity likely combination of pleural effusion with atelectasis/airspace disease. Procalcitonin level is slightly elevated at 0.19. Started on antibiotics in the form of ceftriaxone and follow-up culture reports. Patient has been afebrile overnight. No headache or dizziness or lightheadedness. Pain is controlled. Laboratory showed WBC 6.4 hemoglobin 9.3 and platelets 157 Sodium 135 potassium 3.8 chloride 99 bicarb is 27 BUN 28 and creatinine 1.2 and blood sugar is 68 this morning. A1c level is 8.3 and calcium 7.6 and procalcitonin level is 0.19 proBNP 2160. Current medications reviewed. Objective - Vital Signs Vital signs: Vital Signs Temp 97.7 F 10/10/23 19:55 Pulse 82 10/10/23 19:55 Resp 18 10/10/23 12:42 BP 110/61 10/10/23 19:55 Pulse Ox 98 10/10/23 19:55 FiO2 Intake & Output 10/10/23 10/10/23 10/11/23 06:59 18:59 06:59 Intake Total 600 Output Total 950 800 Balance -350 -800 Intake: Intake, IV Titration 600 Amount Sodium Chloride 0.9% 1, 600 000 ml @ 50 mls/hr IV . Q20H ONE Rx#:[id number] Output: Urine 950 800 - Exam PHYSICAL EXAMINATION: Patient is lying in the bed comfortably, no acute distress, awake alert and oriented.. HEENT: Normocephalic. Neck is supple. Pupils reactive. Nostrils clear. Oral cavity is moist. Neck reveals no JVD, carotid bruits, or thyromegaly. CHEST EXAMINATION: Trachea is central. Symmetrical expansion. Bibasilar diminished sounds. No wheezing or rhonchi.. CARDIAC: Normal S1, S2 with no gallops. No murmurs ABDOMEN: Soft. Bowel sounds present. Nontender. No organomegaly. No abdominal bruits. Extremities: Bilateral lower extremity trace edema. Left upper extremity swelling with compression stocking in place. No clubbing or cyanosis Neurologically awake, alert, oriented x2-3 with well-coordinated movements. No focal deficits noted Skin: No rash or skin lesions. Psychiatric: Coperative. Nonsuicidal, Musculoskeletal: No joint swelling or deformity. Normal range of motion. - Labs CBC & Chem 7: 10/10/23 09:59 10/10/23 09:59 Labs: Abnormal Lab Results - Last 24 Hours (Table) 10/09/23 10/10/23 10/10/23 Range/Units 08:21 06:30 09:59 RBC (4.30-5.90) m/uL Hgb (13.0-17.5) gm/dL Hct (39.0-53.0) % MCV (80.0-100.0) fL Sodium (137-145) mmol/L BUN (9-20) mg/dL Glucose (74-99) mg/dL POC Glucose (mg/dL) 59 L (70-110) mg/dL Hemoglobin A1c 8.3 H (<=6.0) % Calcium (8.4-10.2) mg/dL RBC Folate 832 H (280 - 791) ng/mL Procalcitonin (0.02-0.09) ng/mL 10/10/23 10/10/23 10/10/23 Range/Units 09:59 09:59 09:59 RBC 2.72 L (4.30-5.90) m/uL Hgb 9.3 L (13.0-17.5) gm/dL Hct 28.5 L (39.0-53.0) % MCV 104.9 H (80.0-100.0) fL Sodium 135 L (137-145) mmol/L BUN 28 H (9-20) mg/dL Glucose 68 L (74-99) mg/dL POC Glucose (mg/dL) (70-110) mg/dL Hemoglobin A1c (<=6.0) % Calcium 7.6 L (8.4-10.2) mg/dL RBC Folate (280 - 791) ng/mL Procalcitonin 0.19 H (0.02-0.09) ng/mL 10/10/23 10/10/23 10/10/23 Range/Units 11:38 17:05 20:15 RBC (4.30-5.90) m/uL Hgb (13.0-17.5) gm/dL Hct (39.0-53.0) % MCV (80.0-100.0) fL Sodium (137-145) mmol/L BUN (9-20) mg/dL Glucose (74-99) mg/dL POC Glucose (mg/dL) 63 L 115 H 147 H (70-110) mg/dL Hemoglobin A1c (<=6.0) % Calcium (8.4-10.2) mg/dL RBC Folate (280 - 791) ng/mL Procalcitonin (0.02-0.09) ng/mL Microbiology - Last 24 Hours (Table) 10/09/23 08:21 Blood Culture - Preliminary Blood 10/09/23 08:21 Blood Culture - Preliminary Blood Assessment and Plan Assessment: Acute COVID-19 infection Fever cough and generalized weakness secondary above Possible left basilar pneumonia/atelectasis. Metastatic urothelial carcinoma" chemo/RT07/11/2020 and recent left neck mass s/p biopsy showing metastatic urothelial carcinoma. Received RT and is on hold due to recent hospital admission Mild acute on chronic CHF with preserved ejection fraction Chronic kidney disease stage IIIb with baseline creatinine level 1.5-1.7 Coronary artery disease with history of stent placement uncontolled Diabetes type 2 insulin-dependent A1c 8.3 Macrocytic anemia Osteoarthritis Chronic low back pain Prior history of smoking History of DVT left upper extremity in July 2023 currently on Eliquis Plan: Patient was given IV hydration. Continue with oxygen supplementation and titrate down to room air. Continue with insulin sliding scale and resume and titrate dose as needed. Continue with symptomatic management and droplet/contact precautions. Patient will be given Lasix 20 mg IV x 1 Continue with Lasix 80 mg twice daily and will add metolazone as blood pressure tolerates. Monitor renal function. BNP level is elevated at 2160 which is about the same level during the recent admission. Discussed with his at bedside in detail. Follow-up closely. Prognosis guarded. Time with Patient: Greater than 30
[2023-10-11] MEDS: HYDROcodone/APAP 7.5-325MG 1 EACH TAB PO PRN ×2 (01:58→21:08)
[2023-10-11 05:51] LABS: Glucose,Whole Blood 66 mg/dL (70-110)
[2023-10-11 06:03] LABS: Glucose,Whole Blood 72 mg/dL (70-110)
[2023-10-11] MEDS: LEVOTHYROXINE 25 MCG TAB PO SCH (06:36)
[2023-10-11] MEDS: INSULIN ASPART (NovoLOG) 100 UNIT/ML VIAL SQ SCH ×7 (08:52→21:05)
[2023-10-11] MEDS: CALCIUM CARBONATE 500 MG CHEWABLE PO SCH ×3 (09:08→17:28)
[2023-10-11] MEDS: SENNOSIDES-DOCUSATE SODIUM 1 EACH TAB PO SCH ×2 (09:09→21:04)
[2023-10-11] MEDS: PANTOPRAZOLE 40 MG TABLET PO SCH ×2 (09:09→16:36)
[2023-10-11] MEDS: CHOLECALCIFEROL 25 MCG (1000 IU) TABLET PO SCH (09:09)
[2023-10-11] MEDS: TAMSULOSIN 0.4 MG CAP.ER.24H PO SCH (09:09)
[2023-10-11] MEDS: ATORVASTATIN 80 MG TAB PO SCH (09:09)
[2023-10-11] MEDS: ASPIRIN 81 MG PO SCH (09:09)
[2023-10-11] MEDS: ZINC SULFATE 220 MG CAP PO SCH (09:09)
[2023-10-11] MEDS: APIXABAN 5 MG TAB PO SCH ×2 (09:09→21:04)
[2023-10-11] MEDS: MAGNESIUM OXIDE 400 MG TAB PO SCH (09:09)
[2023-10-11] MEDS: FUROSEMIDE 40 MG TAB PO SCH ×2 (09:09→16:36)
[2023-10-11] MEDS: METOPROLOL TARTRATE 50 MG TAB PO SCH ×2 (09:09→21:05)
[2023-10-11] MEDS: ASCORBIC ACID 500 MG TAB PO SCH (09:09)
[2023-10-11] MEDS: LORATADINE 10 MG TAB PO SCH (09:10)
[2023-10-11] MEDS: SYMBICORT 80-4.5 MCG INHALER INHALATION SCH ×2 (09:32→20:46)
[2023-10-11 11:11] LABS: Glucose,Whole Blood 85 mg/dL (70-110)
[2023-10-11 11:16] LABS: BUN/Creat Ratio 18.14 Ratio (12.00-20.00); Blood Urea Nitrogen 25.4 mg/dL (9.0-27.0); Calcium 7.7 mg/dL (8.7-10.3); Chloride 99 mmol/L (96-109); Glucose 89 mg/dL (70-110); Sodium 137 mmol/L (135-145)
[2023-10-11 15:03] LABS: HGB 8.8 g/dL (13.0-17.0); MCH 33.1 pg (27.0-32.0); MCHC 31.4 g/dL (32.0-37.0); MCV 105.3 FL (80.0-97.0); NRBC Per 100 WBC 0 X 10*3/uL (0.00-0.01); Platelet Count 150 X 10*3/uL (140-440); RBC 2.66 X 10*6/uL (4.40-5.60); WBC 5.64 X 10*3/uL (4.50-10.00)
[2023-10-11 16:56] LABS: Acanthocytes 2+; Basophils # (A) 0.01 X 10*3/uL (0.00-0.10); Basophils % (A) 0.2 %; Elliptocytes 2+; Eosinophils # (A) 0.22 X 10*3/uL (0.04-0.35); Eosinophils % (A) 3.9 %; Lymphocytes # (A) 0.33 X 10*3/uL (0.90-5.00); Lymphocytes % (A) 5.9 %; Macrocytosis (M) 2+; Monocytes # (A) 0.48 X 10*3/uL (0.20-1.00); Monocytes % (A) 8.5 %; Neutrophils # (A) 4.58 X 10*3/uL (1.80-7.70); Neutrophils % (A) 81.1 %
[2023-10-11 17:23] LABS: Glucose,Whole Blood 115 mg/dL (70-110)
[2023-10-11 20:13] LABS: Glucose,Whole Blood 243 mg/dL (70-110)
[2023-10-11] MEDS: AZITHROMYCIN 500 MG TAB PO SCH (21:52)
[2023-10-11] MEDS: INSULIN DETEMIR (LEVEMIR) 100 UNIT/ML SYR SQ SCH (21:52)
[2023-10-12 01:47] LABS: Glucose,Whole Blood 151 mg/dL (70-110)
[2023-10-12 05:59] LABS: Glucose,Whole Blood 68 mg/dL (70-110)
[2023-10-12 06:12] LABS: Glucose,Whole Blood 62 mg/dL (70-110)
[2023-10-12 06:23] LABS: Glucose,Whole Blood 88 mg/dL (70-110)
[2023-10-12] MEDS: INSULIN ASPART (NovoLOG) 100 UNIT/ML VIAL SQ SCH ×7 (06:54→20:36)
[2023-10-12] MEDS: LEVOTHYROXINE 25 MCG TAB PO SCH (06:56)
[2023-10-12] MEDS: SYMBICORT 80-4.5 MCG INHALER INHALATION SCH ×2 (09:24→20:47)
[2023-10-12] MEDS: AZITHROMYCIN 500 MG TAB PO SCH (09:51)
[2023-10-12] MEDS: CALCIUM CARBONATE 500 MG CHEWABLE PO SCH ×3 (09:51→17:38)
[2023-10-12] MEDS: TAMSULOSIN 0.4 MG CAP.ER.24H PO SCH (09:52)
[2023-10-12] MEDS: ZINC SULFATE 220 MG CAP PO SCH (09:52)
[2023-10-12] MEDS: FUROSEMIDE 40 MG TAB PO SCH ×2 (09:52→17:45)
[2023-10-12] MEDS: ATORVASTATIN 80 MG TAB PO SCH (09:52)
[2023-10-12] MEDS: CHOLECALCIFEROL 25 MCG (1000 IU) TABLET PO SCH (09:52)
[2023-10-12] MEDS: PANTOPRAZOLE 40 MG TABLET PO SCH ×2 (09:52→17:45)
[2023-10-12] MEDS: ASPIRIN 81 MG PO SCH (09:52)
[2023-10-12] MEDS: MAGNESIUM OXIDE 400 MG TAB PO SCH (09:52)
[2023-10-12] MEDS: ASCORBIC ACID 500 MG TAB PO SCH (09:52)
[2023-10-12] MEDS: METOPROLOL TARTRATE 50 MG TAB PO SCH ×2 (09:53→20:36)
[2023-10-12] MEDS: SENNOSIDES-DOCUSATE SODIUM 1 EACH TAB PO SCH ×2 (09:53→20:36)
[2023-10-12] MEDS: APIXABAN 5 MG TAB PO SCH ×2 (09:53→20:36)
[2023-10-12] MEDS: LORATADINE 10 MG TAB PO SCH (09:53)
[2023-10-12 11:08] LABS: HCT 27.8 % (39.6-50.0); HGB 8.9 g/dL (13.0-17.0); NRBC Per 100 WBC 0 X 10*3/uL (0.00-0.01); Platelet Count 168 X 10*3/uL (140-440); RDW 14.6 % (11.5-14.5); WBC 6.16 X 10*3/uL (4.50-10.00)
[2023-10-12 11:09] LABS: Basophils # (A) 0.01 X 10*3/uL (0.00-0.10); Basophils % (A) 0.2 %; Eosinophils # (A) 0.22 X 10*3/uL (0.04-0.35); Eosinophils % (A) 3.6 %; Lymphocytes # (A) 0.36 X 10*3/uL (0.90-5.00); Lymphocytes % (A) 5.8 %; Monocytes # (A) 0.41 X 10*3/uL (0.20-1.00); Monocytes % (A) 6.7 %; Neutrophils # (A) 5.12 X 10*3/uL (1.80-7.70); Neutrophils % (A) 83.1 %
[2023-10-12 11:17] LABS: Glucose,Whole Blood 123 mg/dL (70-110)
[2023-10-12 11:27] LABS: BUN/Creat Ratio 16.36 Ratio (12.00-20.00); Blood Urea Nitrogen 22.9 mg/dL (9.0-27.0); Carbon Dioxide 25.8 mmol/L (21.6-31.8); Chloride 99 mmol/L (96-109); Glucose 120 mg/dL (70-110); Potassium 4.2 mmol/L (3.5-5.5); Sodium 137 mmol/L (135-145)
[2023-10-12 11:28] LABS: Calcium 7.4 mg/dL (8.7-10.3)
[2023-10-12 16:21] LABS: Glucose,Whole Blood 207 mg/dL (70-110)
[2023-10-12 20:29] LABS: Glucose,Whole Blood 197 mg/dL (70-110)
[2023-10-12] MEDS: INSULIN DETEMIR (LEVEMIR) 100 UNIT/ML SYR SQ SCH (20:36)
[2023-10-12] MEDS: HYDROcodone/APAP 7.5-325MG 1 EACH TAB PO PRN (22:25)
[2023-10-12] MEDS: predniSONE 20 MG TAB PO SCH (22:25)
--- NOTE | 2023-10-12 23:25 | P.PN ---
Subjective Progress Note Date: 10/12/23 Patient is a 73-year-old male with a known history of metastatic high-grade urothelial carcinoma status post left neck mass lymph node biopsy, urothelial cancer status post chemo/RT in 06/2020, coronary artery disease with history of stent placement, chronic HFpEF, CKD stage IIIb with baseline creatinine level 1.5-1.7, diabetic nephropathy, diabetes type 2 insulin-dependent, hypertension, osteoarthritis, chronic low back pain, prior history of smoking was sent from [facility] due to complaints of fever. Patient has been coughing more than normal and mild shortness of breath and generalized weakness. Patient does have cough with clear sputum production. Otherwise denies any nausea vomiting or abdominal pain or diarrhea. Denies any dysuria or hematuria. Patient does have left upper extremity DVT diagnosed in July 2023 and is on Eliquis currently. On admission chest x-ray showed mild cardiomegaly with mild central vascular congestion. COPD changes. Relatively stable left basilar opacity compared to prior likely a combination of pleural effusion with atelectasis/airspace disease. EKG showed sinus rhythm with heart rate 89 Patient was recently admitted to hospital 09/11/2023 s/p treatment for acute on chronic CHF with preserved ejection fraction. Laboratory showed WBC 8.9 hemoglobin 8.6, MCV 103.0 and platelets 149 Sodium 134 potassium 4.0 chloride 99 bicarb is 28 BUN 32 and creatinine 1.22 and blood sugar is 151 lactic acid 1.3 and calcium 7.5 liver enzymes are not elevated CRP 14.0 albumin 2.5 B12 level is 581 and urinalysis is negative for infection COVID-19 PCR detected. 10/10/2023 Patient is lying in the bed. Awake alert and oriented x 3. No complaints of chest pain. Shortness of breath is better as per patient. Currently on 2 L oxygen via nasal cannula. No nausea vomiting or abdominal pain. Left upper extremity still swollen. Continued on anticoagulation with Eliquis with recent history of DVT. Chest x-ray showed relatively stable left basilar opacity likely combination of pleural effusion with atelectasis/airspace disease. Procalcitonin level is slightly elevated at 0.19. Started on antibiotics in the form of ceftriaxone and follow-up culture reports. Patient has been afebrile overnight. No headache or dizziness or lightheadedness. Pain is controlled. Laboratory showed WBC 6.4 hemoglobin 9.3 and platelets 157 Sodium 135 potassium 3.8 chloride 99 bicarb is 27 BUN 28 and creatinine 1.2 and blood sugar is 68 this morning. A1c level is 8.3 and calcium 7.6 and procalcitonin level is 0.19 proBNP 2160. 10/11/2023 Patient is currently lying in bed. Awake alert and oriented x 3. Patient states that his breathing is better. Currently on 2 L oxygen via nasal cannula. No complaints of nausea or vomiting. Cough without any sputum production. Patient has been afebrile. Currently being continued on antibiotics ceftriaxone azithromycin for possible bacterial pneumonia. Slightly elevated procalcitonin level. Left upper extremity swelling is better. Continued on anticoagulation due to recent history of DVT. Laboratory showed WBC 5.6 hemoglobin 8.8 and platelets 150 sodium 137 potassium 4.0 chloride 99 bicarb is 27 BUN 25.4 and creatinine 1.4 and calcium 7.7 10/12/2023 Patient is currently resting in the bed. Awake alert and oriented x 3. No complaints of chest pain. Patient has been having cough and expiratory wheezing on examination. Currently requiring 3 L oxygen via nasal cannula. Patient is on IV antibiotics for possible pneumonia and also will add prednisone 40 mg daily for 5 days. Otherwise patient denies any nausea vomiting abdominal pain or diarrhea. Left upper extremity swelling is improving. Continued on anticoagulation with Eliquis due to recent history of DVT. Laboratory pressure WBC 6.6 hemoglobin 8.9 and platelets 168 BUN 22.9 and creatinine 1.4 and blood sugar is 120 and calcium 7.4. Patient is awaiting authorization to get back to his [facility]. Current medications reviewed. Objective - Vital Signs Vital signs: Vital Signs Temp 98.0 F 10/12/23 08:00 Pulse 75 10/12/23 10:46 Resp 20 10/12/23 10:46 BP 135/63 10/12/23 08:00 Pulse Ox 97 10/12/23 08:00 FiO2 Intake & Output 10/11/23 10/12/23 10/12/23 18:59 06:59 18:59 Intake Total 200 Output Total 700 950 Balance -700 -750 Intake: Oral 200 Output: Urine 700 950 Other: Voiding Method External Catheter External Catheter External Catheter - Exam PHYSICAL EXAMINATION: Patient is lying in the bed comfortably, no acute distress, awake alert and oriented.. HEENT: Normocephalic. Neck is supple. Pupils reactive. Nostrils clear. Oral cavity is moist. Neck reveals no JVD, carotid bruits, or thyromegaly. CHEST EXAMINATION: Trachea is central. Symmetrical expansion. Mild expiratory wheezing and bibasilar coarse breath sounds. Nonlabored breathing... CARDIAC: Normal S1, S2 with no gallops. No murmurs ABDOMEN: Soft. Bowel sounds present. Nontender. No organomegaly. No abdominal bruits. Extremities: Bilateral lower extremity trace edema. Left upper extremity swell ing with compression stocking in place. No clubbing or cyanosis Neurologically awake, alert, oriented x\\3 with well-coordinated movements. No focal deficits noted Skin: No rash or skin lesions. Psychiatric: Coperative. Nonsuicidal, Musculoskeletal: No joint swelling or deformity. Normal range of motion. - Labs CBC & Chem 7: 10/12/23 07:44 10/12/23 07:44 Labs: Abnormal Lab Results - Last 24 Hours (Table) 10/11/23 10/11/23 10/11/23 Range/Units 06:59 17:21 20:11 RBC 2.66 L (4.40-5.60) X 10*6/uL Hgb 8.8 L (13.0-17.0) g/dL Hct 28.0 L (39.6-50.0) % MCV 105.3 H (80.0-97.0) FL MCH 33.1 H (27.0-32.0) pg MCHC 31.4 L (32.0-37.0) g/dL RDW 15.0 H (11.5-14.5) % MPV 13.0 H (9.5-12.2) FL Lymphocytes # 0.33 L (0.90-5.00) X 10*3/uL Macrocytosis (manual) 2+ A Elliptocytes 2+ A Acanthocytes (Spur) 2+ A Anion Gap (4.00-12.00) mmol/L Est GFR (CKD-EPI) (>=60) Glucose (70-110) mg/dL POC Glucose (mg/dL) 115 H 243 H (70-110) mg/dL Calcium (8.7-10.3) mg/dL 10/12/23 10/12/23 10/12/23 Range/Units 01:46 05:54 06:06 RBC (4.40-5.60) X 10*6/uL Hgb (13.0-17.0) g/dL Hct (39.6-50.0) % MCV (80.0-97.0) FL MCH (27.0-32.0) pg MCHC (32.0-37.0) g/dL RDW (11.5-14.5) % MPV (9.5-12.2) FL Lymphocytes # (0.90-5.00) X 10*3/uL Macrocytosis (manual) Elliptocytes Acanthocytes (Spur) Anion Gap (4.00-12.00) mmol/L Est GFR (CKD-EPI) (>=60) Glucose (70-110) mg/dL POC Glucose (mg/dL) 151 H 68 L 62 L (70-110) mg/dL Calcium (8.7-10.3) mg/dL 10/12/23 10/12/23 10/12/23 Range/Units 07:44 07:44 11:15 RBC 2.70 L (4.40-5.60) X 10*6/uL Hgb 8.9 L (13.0-17.0) g/dL Hct 27.8 L (39.6-50.0) % MCV 103.0 H (80.0-97.0) FL MCH 33.0 H (27.0-32.0) pg MCHC (32.0-37.0) g/dL RDW 14.6 H (11.5-14.5) % MPV 13.0 H (9.5-12.2) FL Lymphocytes # 0.36 L (0.90-5.00) X 10*3/uL Macrocytosis (manual) Elliptocytes Acanthocytes (Spur) Anion Gap 12.20 H (4.00-12.00) mmol/L Est GFR (CKD-EPI) 54 L (>=60) Glucose 120 H (70-110) mg/dL POC Glucose (mg/dL) 123 H (70-110) mg/dL Calcium 7.4 L (8.7-10.3) mg/dL Microbiology - Last 24 Hours (Table) 10/09/23 08:21 Blood Culture - Preliminary Blood 10/09/23 08:21 Blood Culture - Preliminary Blood Assessment and Plan Assessment: Acute COVID-19 pneumonia Fever cough and generalized weakness secondary above Possible left basilar pneumonia/atelectasis. Elevated procalcitonin level. Metastatic urothelial carcinoma" chemo/RT07/11/2020 and recent left neck mass s/p biopsy showing metastatic urothelial carcinoma. Received RT and is on hold due to recent hospital admission Mild acute on chronic CHF with preserved ejection fraction Chronic kidney disease stage IIIb with baseline creatinine level 1.5-1.7 Coronary artery disease with history of stent placement uncontolled Diabetes type 2 insulin-dependent A1c 8.3 Macrocytic anemia Osteoarthritis Chronic low back pain Prior history of smoking History of DVT left upper extremity in July 2023 currently on Eliquis Plan: Patient was given IV hydration. Continue with oxygen supplementation. Patient is on 2 L at [facility]. Continue with antibiotics for possible pneumonia. Day 3 out of 5 Patient will be started on prednisone 40 mg daily for 5 days Continue with insulin sliding scale and resume and titrate dose as needed. Continue with symptomatic management and droplet/contact precautions. Patient will be given Lasix 20 mg IV x 1 Continue with Lasix 40 mg twice daily and will add metolazone as blood pressure tolerates. Monitor renal function. BNP level is elevated at 2160 which is about the same level during the recent admission. Follow-up closely. Prognosis guarded. Patient is awaiting authorization to be transferred back to [facility]. Plans for discharge the next 24 hours. Patient will need to follow-up with oncology after discharging from rehab. Time with Patient: Greater than 30
--- NOTE | 2023-10-12 23:25 | P.PN ---
Subjective Progress Note Date: 10/11/23 Patient is a 73-year-old male with a known history of metastatic high-grade urothelial carcinoma status post left neck mass lymph node biopsy, urothelial cancer status post chemo/RT in 06/2020, coronary artery disease with history of stent placement, chronic HFpEF, CKD stage IIIb with baseline creatinine level 1.5-1.7, diabetic nephropathy, diabetes type 2 insulin-dependent, hypertension, osteoarthritis, chronic low back pain, prior history of smoking was sent from [facility] due to complaints of fever. Patient has been coughing more than normal and mild shortness of breath and generalized weakness. Patient does have cough with clear sputum production. Otherwise denies any nausea vomiting or abdominal pain or diarrhea. Denies any dysuria or hematuria. Patient does have left upper extremity DVT diagnosed in July 2023 and is on Eliquis currently. On admission chest x-ray showed mild cardiomegaly with mild central vascular congestion. COPD changes. Relatively stable left basilar opacity compared to prior likely a combination of pleural effusion with atelectasis/airspace disease. EKG showed sinus rhythm with heart rate 89 Patient was recently admitted to hospital 09/11/2023 s/p treatment for acute on chronic CHF with preserved ejection fraction. Laboratory showed WBC 8.9 hemoglobin 8.6, MCV 103.0 and platelets 149 Sodium 134 potassium 4.0 chloride 99 bicarb is 28 BUN 32 and creatinine 1.22 and blood sugar is 151 lactic acid 1.3 and calcium 7.5 liver enzymes are not elevated CRP 14.0 albumin 2.5 B12 level is 581 and urinalysis is negative for infection COVID-19 PCR detected. 10/10/2023 Patient is lying in the bed. Awake alert and oriented x 3. No complaints of chest pain. Shortness of breath is better as per patient. Currently on 2 L oxygen via nasal cannula. No nausea vomiting or abdominal pain. Left upper extremity still swollen. Continued on anticoagulation with Eliquis with recent history of DVT. Chest x-ray showed relatively stable left basilar opacity likely combination of pleural effusion with atelectasis/airspace disease. Procalcitonin level is slightly elevated at 0.19. Started on antibiotics in the form of ceftriaxone and follow-up culture reports. Patient has been afebrile overnight. No headache or dizziness or lightheadedness. Pain is controlled. Laboratory showed WBC 6.4 hemoglobin 9.3 and platelets 157 Sodium 135 potassium 3.8 chloride 99 bicarb is 27 BUN 28 and creatinine 1.2 and blood sugar is 68 this morning. A1c level is 8.3 and calcium 7.6 and procalcitonin level is 0.19 proBNP 2160. 10/11/2023 Patient is currently lying in bed. Awake alert and oriented x 3. Patient states that his breathing is better. Currently on 2 L oxygen via nasal cannula. No complaints of nausea or vomiting. Cough without any sputum production. Patient has been afebrile. Currently being continued on antibiotics ceftriaxone azithromycin for possible bacterial pneumonia. Slightly elevated procalcitonin level. Left upper extremity swelling is better. Continued on anticoagulation due to recent history of DVT. Laboratory showed WBC 5.6 hemoglobin 8.8 and platelets 150 sodium 137 potassium 4.0 chloride 99 bicarb is 27 BUN 25.4 and creatinine 1.4 and calcium 7.7 Current medications reviewed. Objective - Vital Signs Vital signs: Vital Signs Temp 98.7 F 10/11/23 14:00 Pulse 75 10/11/23 14:00 Resp 17 10/11/23 14:00 BP 119/61 10/11/23 14:00 Pulse Ox 97 10/11/23 14:00 FiO2 Intake & Output 10/10/23 10/11/23 10/11/23 18:59 06:59 18:59 Output Total 800 590 Balance -800 -590 Output: Urine 800 590 Other: Voiding Method External Catheter External Catheter - Exam PHYSICAL EXAMINATION: Patient is lying in the bed comfortably, no acute distress, awake alert and oriented.. HEENT: Normocephalic. Neck is supple. Pupils reactive. Nostrils clear. Oral cavity is moist. Neck reveals no JVD, carotid bruits, or thyromegaly. CHEST EXAMINATION: Trachea is central. Symmetrical expansion. Bibasilar diminished and coarse sounds. No wheezing or rhonchi.. CARDIAC: Normal S1, S2 with no gallops. No murmurs ABDOMEN: Soft. Bowel sounds present. Nontender. No organomegaly. No abdominal bruits. Extremities: Bilateral lower extremity trace edema. Left upper extremity swelling with compression stocking in place. No clubbing or cyanosis Neurologically awake, alert, oriented x\\3 with well-coordinated movements. No focal deficits noted Skin: No rash or skin lesions. Psychiatric: Coperative. Nonsuicidal, Musculoskeletal: No joint swelling or deformity. Normal range of motion. - Labs CBC & Chem 7: 10/12/23 07:44 10/12/23 07:44 Labs: Abnormal Lab Results - Last 24 Hours (Table) 10/10/23 10/10/23 10/11/23 Range/Units 17:05 20:15 05:45 RBC (4.40-5.60) X 10*6/uL Hgb (13.0-17.0) g/dL Hct (39.6-50.0) % MCV (80.0-97.0) FL MCH (27.0-32.0) pg MCHC (32.0-37.0) g/dL RDW (11.5-14.5) % MPV (9.5-12.2) FL Est GFR (CKD-EPI) (>=60) POC Glucose (mg/dL) 115 H 147 H 66 L (70-110) mg/dL Calcium (8.7-10.3) mg/dL 10/11/23 10/11/23 Range/Units 06:59 06:59 RBC 2.66 L (4.40-5.60) X 10*6/uL Hgb 8.8 L (13.0-17.0) g/dL Hct 28.0 L (39.6-50.0) % MCV 105.3 H (80.0-97.0) FL MCH 33.1 H (27.0-32.0) pg MCHC 31.4 L (32.0-37.0) g/dL RDW 15.0 H (11.5-14.5) % MPV 13.0 H (9.5-12.2) FL Est GFR (CKD-EPI) 54 L (>=60) POC Glucose (mg/dL) (70-110) mg/dL Calcium 7.7 L (8.7-10.3) mg/dL Microbiology - Last 24 Hours (Table) 10/09/23 08:21 Blood Culture - Preliminary Blood 10/09/23 08:21 Blood Culture - Preliminary Blood Assessment and Plan Assessment: Acute COVID-19 infection Fever cough and generalized weakness secondary above Possible left basilar pneumonia/atelectasis. Metastatic urothelial carcinoma" chemo/RT07/11/2020 and recent left neck mass s/p biopsy showing metastatic urothelial carcinoma. Received RT and is on hold due to recent hospital admission Mild acute on chronic CHF with preserved ejection fraction Chronic kidney disease stage IIIb with baseline creatinine level 1.5-1.7 Coronary artery disease with history of stent placement uncontolled Diabetes type 2 insulin-dependent A1c 8.3 Macrocytic anemia Osteoarthritis Chronic low back pain Prior history of smoking History of DVT left upper extremity in July 2023 currently on Eliquis Plan: Patient was given IV hydration. Continue with oxygen supplementation and titrate down to room air. Continue with insulin sliding scale and resume and titrate dose as needed. Continue with symptomatic management and droplet/contact precautions. Patient will be given Lasix 20 mg IV x 1 Continue with Lasix 40 mg twice daily and will add metolazone as blood pressure tolerates. Monitor renal function. BNP level is elevated at 2160 which is about the same level during the recent admission. Follow-up closely. Prognosis guarded. Time with Patient: Greater than 30
[2023-10-13 06:02] LABS: Glucose,Whole Blood 141 mg/dL (70-110)
[2023-10-13] MEDS: LEVOTHYROXINE 25 MCG TAB PO SCH (06:31)
[2023-10-13 08:30] LABS: Basophils % (A) 0 %; Eosinophils % (A) 0 %; HCT 30.1 % (39.0-53.0); HGB 9.9 gm/dL (13.0-17.5); Hypochromasia Slight; Lymphocytes # (A) 0.3 k/uL (1.0-4.8); Lymphocytes % (A) 7 %; MCH 34.2 pg (25.0-35.0); MCHC 32.9 g/dL (31.0-37.0); MCV 103.9 fL (80.0-100.0); Macrocytosis Slight; Mean Platelet Volume 10.5; Monocytes # (A) 0.2 k/uL (0-1.0); Monocytes % (A) 3 %; Neutrophils % (A) 89 %; Platelet Count 175 k/uL (150-450); RDW 13.8 % (11.5-15.5); WBC 4.5 k/uL (3.8-10.6)
[2023-10-13] MEDS: INSULIN ASPART (NovoLOG) 100 UNIT/ML VIAL SQ SCH ×7 (08:39→21:08)
[2023-10-13] MEDS: ALBUTEROL HFA INHALER INHALATION PRN ×3 (08:42→15:50)
[2023-10-13] MEDS: SYMBICORT 80-4.5 MCG INHALER INHALATION SCH ×2 (08:42→21:09)
[2023-10-13] MEDS: CHOLECALCIFEROL 25 MCG (1000 IU) TABLET PO SCH (08:58)
[2023-10-13] MEDS: ASPIRIN 81 MG PO SCH (08:58)
[2023-10-13] MEDS: METOPROLOL TARTRATE 50 MG TAB PO SCH ×2 (08:58→21:09)
[2023-10-13] MEDS: FUROSEMIDE 40 MG TAB PO SCH ×2 (08:58→17:49)
[2023-10-13] MEDS: ASCORBIC ACID 500 MG TAB PO SCH (08:58)
[2023-10-13] MEDS: ZINC SULFATE 220 MG CAP PO SCH (08:58)
[2023-10-13] MEDS: LORATADINE 10 MG TAB PO SCH (08:58)
[2023-10-13] MEDS: predniSONE 20 MG TAB PO SCH (08:58)
[2023-10-13] MEDS: TAMSULOSIN 0.4 MG CAP.ER.24H PO SCH (08:58)
[2023-10-13] MEDS: APIXABAN 5 MG TAB PO SCH ×2 (08:58→21:09)
[2023-10-13] MEDS: MAGNESIUM OXIDE 400 MG TAB PO SCH (08:59)
[2023-10-13] MEDS: SENNOSIDES-DOCUSATE SODIUM 1 EACH TAB PO SCH ×2 (08:59→21:09)
[2023-10-13] MEDS: AZITHROMYCIN 500 MG TAB PO SCH (08:59)
[2023-10-13] MEDS: PANTOPRAZOLE 40 MG TABLET PO SCH ×2 (08:59→17:49)
[2023-10-13] MEDS: ATORVASTATIN 80 MG TAB PO SCH (08:59)
[2023-10-13] MEDS: CALCIUM CARBONATE 500 MG CHEWABLE PO SCH ×3 (09:00→17:55)
[2023-10-13 09:23] LABS: African American GFR (CKD) 76 (>60 ml/min/1.73 sqM); Anion Gap 9 mmol/L; Blood Urea Nitrogen 26 mg/dL (9-20); C Reactive Protein 5.5 mg/dL (<1.0); Calcium 7.4 mg/dL (8.4-10.2); Carbon Dioxide 26 mmol/L (22-30); Chloride 99 mmol/L (98-107); Glucose 128 mg/dL (74-99); Non-African American GFR(CKD) 65 (>60 ml/min/1.73 sqM); Potassium 4.6 mmol/L (3.5-5.1); Sodium 134 mmol/L (137-145)
[2023-10-13 11:55] LABS: Glucose,Whole Blood 276 mg/dL (70-110)
[2023-10-13 16:46] LABS: Glucose,Whole Blood 361 mg/dL (70-110)
[2023-10-13 20:10] LABS: Glucose,Whole Blood 505 mg/dL (70-110)
[2023-10-13 21:25] LABS: Glucose,Whole Blood 473 mg/dL (70-110)
[2023-10-13] MEDS: INSULIN REGULAR 100 UNIT in SODIUM CHLORIDE 0.9% 100 ML IV SCH (22:00)
[2023-10-13 22:43] LABS: Glucose,Whole Blood 439 mg/dL (70-110)
[2023-10-13 23:08] LABS: Glucose,Whole Blood 379 mg/dL (70-110)
[2023-10-14] LABS: Glucose,Whole Blood 307 mg/dL (70-110)
[2023-10-14 00:30] LABS: Glucose,Whole Blood 259 mg/dL (70-110)
[2023-10-14 01:02] LABS: Glucose,Whole Blood 212 mg/dL (70-110)
[2023-10-14] MEDS: HYDROcodone/APAP 7.5-325MG 1 EACH TAB PO PRN ×3 (01:20→17:15)
[2023-10-14 02:29] LABS: Glucose,Whole Blood 170 mg/dL (70-110)
[2023-10-14] MEDS: INSULIN REGULAR 100 UNIT in SODIUM CHLORIDE 0.9% 100 ML IV SCH (02:52)
[2023-10-14 03:27] LABS: Glucose,Whole Blood 95 mg/dL (70-110)
[2023-10-14 04:05] LABS: Glucose,Whole Blood 119 mg/dL (70-110)
[2023-10-14] MEDS: INSULIN DETEMIR (LEVEMIR) 100 UNIT/ML SYR SQ SCH ×2 (04:10→21:11)
[2023-10-14 05:13] LABS: Glucose,Whole Blood 130 mg/dL (70-110)
[2023-10-14] MEDS: LEVOTHYROXINE 25 MCG TAB PO SCH (06:12)
[2023-10-14 06:19] LABS: Glucose,Whole Blood 157 mg/dL (70-110)
[2023-10-14 06:19] LABS: HCT 27.7 % (39.0-53.0); HGB 9.2 gm/dL (13.0-17.5); Hypochromasia Slight; MCH 34.7 pg (25.0-35.0); MCHC 33.1 g/dL (31.0-37.0); Macrocytosis Moderate; Mean Platelet Volume 9.8; Platelet Count 184 k/uL (150-450); RBC 2.63 m/uL (4.30-5.90); WBC 10.4 k/uL (3.8-10.6)
[2023-10-14 06:31] LABS: African American GFR (CKD) 68 (>60 ml/min/1.73 sqM); Anion Gap 10 mmol/L; Blood Urea Nitrogen 28 mg/dL (9-20); Calcium 7.2 mg/dL (8.4-10.2); Carbon Dioxide 24 mmol/L (22-30); Chloride 100 mmol/L (98-107); Glucose 129 mg/dL (74-99); Non-African American GFR(CKD) 59 (>60 ml/min/1.73 sqM); Potassium 4.1 mmol/L (3.5-5.1); Sodium 134 mmol/L (137-145)
[2023-10-14 07:09] LABS: Glucose,Whole Blood 154 mg/dL (70-110)
[2023-10-14] MEDS: SYMBICORT 80-4.5 MCG INHALER INHALATION SCH ×2 (07:48→21:31)
[2023-10-14] MEDS: ALBUTEROL HFA INHALER INHALATION PRN (07:48)
--- NOTE | 2023-10-14 07:48 | XR ---
EXAMINATION TYPE: XR chest 1V portable DATE OF EXAM: 10/14/2023 5:16 AM CLINICAL INDICATION:Male, 73 years old with history of SOB; [facility] COMPARISON: Chest radiographs from 10/09/2023. TECHNIQUE: XR chest 1V portable Frontal view of the chest. FINDINGS: Lungs/Pleura: There is flattening of the diaphragm with increased lucency of the lungs. No evidence o f pneumothorax, pleural effusion or focal consolidation. Pulmonary vascularity: Unremarkable. Heart/mediastinum: Cardiomediastinal silhouette is unremarkable. Musculoskeletal: No acute osseous pathology. IMPRESSION: 1. No acute cardiopulmonary disease process. 2. COPD changes.
[2023-10-14 08:16] LABS: Glucose,Whole Blood 148 mg/dL (70-110)
--- NOTE | 2023-10-14 09:25 | P.PN ---
Progress Note - Text Progress Note Date: 10/13/23 Patient is a 73-year-old male with a known history of metastatic high-grade urothelial carcinoma status post left neck mass lymph node biopsy, urothelial cancer status post chemo/RT in 06/2020, coronary artery disease with history of stent placement, chronic HFpEF, CKD stage IIIb with baseline creatinine level 1.5-1.7, diabetic nephropathy, diabetes type 2 insulin-dependent, hypertension, osteoarthritis, chronic low back pain, prior history of smoking was [facility] due to complaints of fever. Patient has been coughing more than normal and mild shortness of breath and generalized weakness. Patient does have cough with clear sputum production. Otherwise denies any nausea vomiting or abdominal pain or diarrhea. Denies any dysuria or hematuria. Patient does have left upper extremity DVT diagnosed in July 2023 and is on Eliquis currently. On admission chest x-ray showed mild cardiomegaly with mild central vascular congestion. COPD changes. Relatively stable left basilar opacity compared to prior likely a combination of pleural effusion with atelectasis/airspace disease. EKG showed sinus rhythm with heart rate 89 Patient was recently admitted to hospital 09/11/2023 s/p treatment for acute on chronic CHF with preserved ejection fraction. Laboratory showed WBC 8.9 hemoglobin 8.6, MCV 103.0 and platelets 149 Sodium 134 potassium 4.0 chloride 99 bicarb is 28 BUN 32 and creatinine 1.22 and blood sugar is 151 lactic acid 1.3 and calcium 7.5 liver enzymes are not elevated CRP 14.0 albumin 2.5 B12 level is 581 and urinalysis is negative for infection COVID-19 PCR detected. 10/10/2023 Patient is lying in the bed. Awake alert and oriented x 3. No complaints of chest pain. Shortness of breath is better as per patient. Currently on 2 L oxygen via nasal cannula. No nausea vomiting or abdominal pain. Left upper extremity still swollen. Continued on anticoagulation with Eliquis with recent history of DVT. Chest x-ray showed relatively stable left basilar opacity likely combination of pleural effusion with atelectasis/airspace disease. Procalcitonin level is s lightly elevated at 0.19. Started on antibiotics in the form of ceftriaxone and follow-up culture reports. Patient has been afebrile overnight. No headache or dizziness or lightheadedness. Pain is controlled. Laboratory showed WBC 6.4 hemoglobin 9.3 and platelets 157 Sodium 135 potassium 3.8 chloride 99 bicarb is 27 BUN 28 and creatinine 1.2 and blood sugar is 68 this morning. A1c level is 8.3 and calcium 7.6 and procalcitonin level is 0.19 proBNP 2160. 10/11/2023 Patient is currently lying in bed. Awake alert and oriented x 3. Patient states that his breathing is better. Currently on 2 L oxygen via nasal cannula. No complaints of nausea or vomiting. Cough without any sputum production. Patient has been afebrile. Currently being continued on antibiotics ceftriaxone azithromycin for possible bacterial pneumonia. Slightly elevated procalcitonin level. Left upper extremity swelling is better. Continued on anticoagulation due to recent history of DVT. Laboratory showed WBC 5.6 hemoglobin 8.8 and platelets 150 sodium 137 potassium 4.0 chloride 99 bicarb is 27 BUN 25.4 and creatinine 1.4 and calcium 7.7 10/12/2023 Patient is currently resting in the bed. Awake alert and oriented x 3. No complaints of chest pain. Patient has been having cough and expiratory wheezing on examination. Currently requiring 3 L oxygen via nasal cannula. Patient is on IV antibiotics for possible pneumonia and also will add prednisone 40 mg daily for 5 days. Otherwise patient denies any nausea vomiting abdominal pain or diarrhea. Left upper extremity swelling is improving. Continued on anticoagulation with Eliquis due to recent history of DVT. Laboratory pressure WBC 6.6 hemoglobin 8.9 and platelets 168 BUN 22.9 and creatinine 1.4 and blood sugar is 120 and calcium 7.4. Patient is awaiting authorization to get back to his ECF. 10/13/2023: I assumed care of the patient today. Eating well. Slight cough. Pending authorization to go to rehab. Had a bowel movement. Otherwise comfortable Active Medications Acetaminophen (Acetaminophen Tab 325 Mg Tab) 650 mg PO Q6HR PRN PRN Reason: Fever and/ or Pain Last Admin: 10/12/23 20:36 Dose: 650 mg Hydrocodone Bitart/Acetaminophen (Hydrocodone/Apap 7.5-325mg 1 Each Tab) 1 each PO Q6H PRN PRN Reason: Pain Last Admin: 10/12/23 22:25 Dose: 1 each Albuterol Sulfate (Albuterol Hfa Inhaler) 1 puff INHALATION RT-Q6H PRN PRN Reason: Wheezing Last Admin: 10/13/23 15:50 Dose: 1 puff Apixaban (Apixaban 5 Mg Tab) 5 mg PO BID [facility] [place]; Protocol Last Admin: 10/13/23 08:58 Dose: 5 mg Ascorbic Acid (Ascorbic Acid 500 Mg Tab) 500 mg PO DAILY [facility] [place] Last Admin: 10/13/23 08:58 Dose: 500 mg Aspirin (Aspirin 81 Mg) 81 mg PO DAILY [facility] Last Admin: 10/13/23 08:58 Dose: 81 mg Atorvastatin Calcium (Atorvastatin 80 Mg Tab) 80 mg PO DAILY [facility] Last Admin: 10/13/23 08:59 Dose: 80 mg Budesonide/Formoterol Fumarate (Symbicort 80-4.5 Mcg Inhaler) 2 puff INHALATION RT-BID [facility] [place] Last Admin: 10/13/23 08:42 Dose: 2 puff Calcium Carbonate/Glycine (Calcium Carbonate 500 Mg Chewable) 1,000 mg PO PC- TID [facility] Last Admin: 10/13/23 17:55 Dose: Not Given Cholecalciferol (Cholecalciferol 25 Mcg (1000 Iu) Tablet) 50 mcg PO DAILY [facility] Last Admin: 10/13/23 08:58 Dose: 50 mcg Dextrose/Water (Dextrose 50% Syringe 50 Ml) 25 ml IVP PER PROTOCOL PRN; Protocol PRN Reason: Hypoglycemia Dextrose/Water (Dextrose 50% Syringe 50 Ml) 50 ml IVP PER PROTOCOL PRN; Protocol PRN Reason: Hypoglycemia Furosemide (Furosemide 40 Mg Tab) 40 mg PO BID@0900,1600 [facility] Last Admin: 10/13/23 17:49 Dose: 40 mg Ceftriaxone Sodium 1 gm/ (Sodium Chloride) 50 mls @ 100 mls/hr IVPB Q24HR [facility]; Protocol Last Admin: 10/13/23 08:57 Dose: 100 mls/hr Insulin Aspart (Insulin Aspart (Novolog) 100 Unit/Ml Vial) 4 unit SQ AC-TID [facility] Last Admin: 10/13/23 17:49 Dose: 4 unit Insulin Aspart (Insulin Aspart (Novolog) 100 Unit/Ml Vial) 0 unit SQ ACHS [facility]; Protocol Last Admin: 10/13/23 17:50 Dose: 5 unit Insulin Detemir (Insulin Detemir (Levemir) 100 Unit/Ml Syr) 20 unit SQ HS [facility] Last Admin: 10/12/23 20:36 Dose: 20 unit Lactulose (Lactulose 20 Gm/30 Ml Cup) 20 gm PO DAILY PRN PRN Reason: Constipation Levothyroxine Sodium (Levothyroxine 25 Mcg Tab) 25 mcg PO DAILY@0700 [facility] [place] Last Admin: 10/13/23 06:31 Dose: 25 mcg Loratadine (Loratadine 10 Mg Tab) 5 mg PO DAILY [facility] [place] Last Admin: 10/13/23 08:58 Dose: 5 mg Magnesium Oxide (Magnesium Oxide 400 Mg Tab) 400 mg PO DAILY [facility] Last Admin: 10/13/23 08:59 Dose: 400 mg Metoprolol Tartrate (Metoprolol Tartrate 50 Mg Tab) 50 mg PO BID [facility] [place] Last Admin: 10/13/23 08:58 Dose: 50 mg Pantoprazole Sodium (Pantoprazole 40 Mg Tablet) 40 mg PO AC-BID@0800,1700 [facility] [place] Last Admin: 10/13/23 17:49 Dose: 40 mg Prednisone (Prednisone 20 Mg Tab) 40 mg PO DAILY [facility] Stop: 10/17/23 22:31 Last Admin: 10/13/23 08:58 Dose: 40 mg Senna/Docusate Sodium (Sennosides-Docusate Sodium 1 Each Tab) 1 each PO BID [facility] [place] Last Admin: 10/13/23 08:59 Dose: 1 each Tamsulosin HCl (Tamsulosin 0.4 Mg Cap.Er.24h) 0.4 mg PO DAILY [facility] [place] Last Admin: 10/13/23 08:58 Dose: 0.4 mg Zinc Sulfate (Zinc Sulfate 220 Mg Cap) 220 mg PO DAILY [facility] [place] Last Admin: 10/13/23 08:58 Dose: 220 mg On examination: VITAL SIGNS: [97.3, 82, 19, 115/49, 94% on 2 L GENERAL APPEARANCE: Laying in bed, comfortable HEENT: Normal external appearance of nose and ear. Oral cavity normal EYES: Pupils equal. Conjunctiva normal. NECK: JVD not raised. Mass not palpable. RESPIRATORY: Respiratory effort normal. Lungs decreased breath sounds, occasional crackle CARDIOVASCULAR: First and second sounds normal. No edema. ABDOMEN: Soft. Liver and spleen not palpable. No tenderness. No mass palpable. PSYCHIATRY: Alert and oriented x3. Mood and affect normal. INVESTIGATIONS, reviewed in the clinical context: October 13: White count 4.5 hemoglobin 9.9 platelets 175 sodium 134 potassium 4.6 creatinine 1.13 CRP 5.5 Assessment and plan: -Acute COVID-19 pneumonia, improving Prednisone 40 mg daily for 5 days -Possible left basilar pneumonia/atelectasis. Elevated procalcitonin level. IV ceftriaxone -Metastatic urothelial carcinoma: -Completed treatment with concurrent chemo/RT in 06/2020. Was following up for observation in clinic through 11/2021 with no evidence of recurrence. Stopped f/u with urology in February 2022 due to insurance reasons, and has not had f/u since -Progressing left neck mass. Biopsy of the lt neck mass revealed metastatic non- small cell carcinoma consistent with metastatic high-grade urothelial carcinoma. Radiation treatment. Follow Dr. Banda -Mild acute on chronic CHF exacerbation with preserved ejection fraction EF 50- 55%: Better Lasix by mouth -Chronic kidney disease likely likely hydronephrosis secondary to cardiorenal syndrome. Along with right-sided hydronephrosis Follow renal function -Coronary artery disease with history of stent 2019 Lipitor, Lopressor -Chronic esophagitis with Otoole's esophagus Protonix -COPD in a prior smoker Ventolin when necessary. Symbicort. 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 Superficial thrombosis within the left cephalic vein. Eliquis Sleeve left upper extremity Followed by Dr. Montalvo from vascular. -Hyperlipidemia Lipitor -Diabetes type 2 insulin-dependent A1c 8.3, uncontrolled with hyperglycemia Levemir -Hypothyroid Synthroid 25 -BPH Flomax Pending authorization to go back to ECF. Not available. Discussed with patient and . And a nurse
[2023-10-14] MEDS: ASPIRIN 81 MG PO SCH (09:42)
[2023-10-14] MEDS: ASCORBIC ACID 500 MG TAB PO SCH (09:43)
[2023-10-14] MEDS: ATORVASTATIN 80 MG TAB PO SCH (09:43)
[2023-10-14] MEDS: LORATADINE 10 MG TAB PO SCH (09:43)
[2023-10-14] MEDS: SENNOSIDES-DOCUSATE SODIUM 1 EACH TAB PO SCH ×2 (09:43→21:11)
[2023-10-14] MEDS: CHOLECALCIFEROL 25 MCG (1000 IU) TABLET PO SCH (09:43)
[2023-10-14] MEDS: METOPROLOL TARTRATE 50 MG TAB PO SCH ×2 (09:43→21:11)
[2023-10-14] MEDS: ZINC SULFATE 220 MG CAP PO SCH (09:43)
[2023-10-14] MEDS: PANTOPRAZOLE 40 MG TABLET PO SCH ×2 (09:43→17:15)
[2023-10-14] MEDS: predniSONE 20 MG TAB PO SCH (09:44)
[2023-10-14] MEDS: FUROSEMIDE 40 MG TAB PO SCH ×2 (09:44→17:15)
[2023-10-14] MEDS: MAGNESIUM OXIDE 400 MG TAB PO SCH (09:44)
[2023-10-14] MEDS: APIXABAN 5 MG TAB PO SCH ×2 (09:44→21:11)
[2023-10-14] MEDS: CALCIUM CARBONATE 500 MG CHEWABLE PO SCH ×3 (09:44→17:15)
[2023-10-14] MEDS: TAMSULOSIN 0.4 MG CAP.ER.24H PO SCH (09:44)
[2023-10-14 10:53] LABS: Glucose,Whole Blood 146 mg/dL (70-110)
--- NOTE | 2023-10-14 11:55 | P.PN ---
Progress Note - Text Progress Note Date: 10/14/23 Patient is a 73-year-old male with a known history of metastatic high-grade urothelial carcinoma status post left neck mass lymph node biopsy, urothelial cancer status post chemo/RT in 06/2020, coronary artery disease with history of stent placement, chronic HFpEF, CKD stage IIIb with baseline creatinine level 1.5-1.7, diabetic nephropathy, diabetes type 2 insulin-dependent, hypertension, osteoarthritis, chronic low back pain, prior history of smoking [facility] due to complaints of fever. Patient has been coughing more than normal and mild shortness of breath and generalized weakness. Patient does have cough with clear sputum production. Otherwise denies any nausea vomiting or abdominal pain or diarrhea. Denies any dysuria or hematuria. Patient does have left upper extremity DVT diagnosed in July 2023 and is on Eliquis currently. On admission chest x-ray showed mild cardiomegaly with mild central vascular congestion. COPD changes. Relatively stable left basilar opacity compared to prior likely a combination of pleural effusion with atelectasis/airspace disease. EKG showed sinus rhythm with heart rate 89 Patient was recently admitted to hospital 09/11/2023 s/p treatment for acute on chronic CHF with preserved ejection fraction. Laboratory showed WBC 8.9 hemoglobin 8.6, MCV 103.0 and platelets 149 Sodium 134 potassium 4.0 chloride 99 bicarb is 28 BUN 32 and creatinine 1.22 and blood sugar is 151 lactic acid 1.3 and calcium 7.5 liver enzymes are not elevated CRP 14.0 albumin 2.5 B12 level is 581 and urinalysis is negative for infection COVID-19 PCR detected. 10/10/2023 Patient is lying in the bed. Awake alert and oriented x 3. No complaints of chest pain. Shortness of breath is better as per patient. Currently on 2 L oxygen via nasal cannula. No nausea vomiting or abdominal pain. Left upper extremity still swollen. Continued on anticoagulation with Eliquis with recent history of DVT. Chest x-ray showed relatively stable left basilar opacity likely combination of pleural effusion with atelectasis/airspace disease. Procalcitonin level is s lightly elevated at 0.19. Started on antibiotics in the form of ceftriaxone and follow-up culture reports. Patient has been afebrile overnight. No headache or dizziness or lightheadedness. Pain is controlled. Laboratory showed WBC 6.4 hemoglobin 9.3 and platelets 157 Sodium 135 potassium 3.8 chloride 99 bicarb is 27 BUN 28 and creatinine 1.2 and blood sugar is 68 this morning. A1c level is 8.3 and calcium 7.6 and procalcitonin level is 0.19 proBNP 2160. 10/11/2023 Patient is currently lying in bed. Awake alert and oriented x 3. Patient states that his breathing is better. Currently on 2 L oxygen via nasal cannula. No complaints of nausea or vomiting. Cough without any sputum production. Patient has been afebrile. Currently being continued on antibiotics ceftriaxone azithromycin for possible bacterial pneumonia. Slightly elevated procalcitonin level. Left upper extremity swelling is better. Continued on anticoagulation due to recent history of DVT. Laboratory showed WBC 5.6 hemoglobin 8.8 and platelets 150 sodium 137 potassium 4.0 chloride 99 bicarb is 27 BUN 25.4 and creatinine 1.4 and calcium 7.7 10/12/2023 Patient is currently resting in the bed. Awake alert and oriented x 3. No complaints of chest pain. Patient has been having cough and expiratory wheezing on examination. Currently requiring 3 L oxygen via nasal cannula. Patient is on IV antibiotics for possible pneumonia and also will add prednisone 40 mg daily for 5 days. Otherwise patient denies any nausea vomiting abdominal pain or diarrhea. Left upper extremity swelling is improving. Continued on anticoagulation with Eliquis due to recent history of DVT. Laboratory pressure WBC 6.6 hemoglobin 8.9 and platelets 168 BUN 22.9 and creatinine 1.4 and blood sugar is 120 and calcium 7.4. Patient is awaiting authorization to get back to his ECF. 10/13/2023: I assumed care of the patient today. Eating well. Slight cough. Pending authorization to go to rehab. Had a bowel movement. Otherwise comfortable 10/14/2023: Patient asked checks and up to 500 yesterday evening. Moved to the ICU as a bed was not available on telemetry floor. Accu-Cheks doing better today. On 4 L nasal cannula. Labs the patient sit up in a chair use incentive spirometry. Insulin drip was taken off this morning. Increase Levemir to 34 units. Active Medications Acetaminophen (Acetaminophen Tab 325 Mg Tab) 650 mg PO Q6HR PRN PRN Reason: Fever and/ or Pain Last Admin: 10/12/23 20:36 Dose: 650 mg Hydrocodone Bitart/Acetaminophen (Hydrocodone/Apap 7.5-325mg 1 Each Tab) 1 each PO Q6H PRN PRN Reason: Pain Last Admin: 10/14/23 09:53 Dose: 1 each Albuterol Sulfate (Albuterol Hfa Inhaler) 1 puff INHALATION RT-Q6H PRN PRN Reason: Wheezing Last Admin: 10/14/23 07:48 Dose: 1 puff Apixaban (Apixaban 5 Mg Tab) 5 mg PO BID [facility]; Protocol Last Admin: 10/14/23 09:44 Dose: 5 mg Ascorbic Acid (Ascorbic Acid 500 Mg Tab) 500 mg PO DAILY [facility] Last Admin: 10/14/23 09:43 Dose: 500 mg Aspirin (Aspirin 81 Mg) 81 mg PO DAILY [facility] Last Admin: 10/14/23 09:42 Dose: 81 mg Atorvastatin Calcium (Atorvastatin 80 Mg Tab) 80 mg PO DAILY [facility] Last Admin: 10/14/23 09:43 Dose: 80 mg Budesonide/Formoterol Fumarate (Symbicort 80-4.5 Mcg Inhaler) 2 puff INHALATION RT-BID [facility] Last Admin: 10/14/23 07:48 Dose: 2 puff Calcium Carbonate/Glycine (Calcium Carbonate 500 Mg Chewable) 1,000 mg PO PC- TID [facility] Last Admin: 10/14/23 09:44 Dose: 1,000 mg Cholecalciferol (Cholecalciferol 25 Mcg (1000 Iu) Tablet) 50 mcg PO DAILY [facility] Last Admin: 10/14/23 09:43 Dose: 50 mcg Dextrose/Water (Dextrose 50% Syringe 50 Ml) 25 ml IVP PER PROTOCOL PRN; Protocol PRN Reason: Hypoglycemia Dextrose/Water (Dextrose 50% Syringe 50 Ml) 50 ml IVP PER PROTOCOL PRN; Protocol PRN Reason: Hypoglycemia Furosemide (Furosemide 40 Mg Tab) 40 mg PO BID@0900,1600 [facility] Last Admin: 10/14/23 09:44 Dose: 40 mg Ceftriaxone Sodium 1 gm/ (Sodium Chloride) 50 mls @ 100 mls/hr IVPB Q24HR [facility]; Protocol Last Admin: 10/14/23 09:45 Dose: 100 mls/hr Insulin Human Regular 100 unit (/ Sodium Chloride) 100 mls @ 0 mls/hr IV .Q0M [facility]; Protocol Last Titration: 10/14/23 03:32 Dose: 0 units/hr, 0 mls/hr Insulin Detemir (Insulin Detemir (Levemir) 100 Unit/Ml Syr) 34 unit SQ HS [facility] Lactulose (Lactulose 20 Gm/30 Ml Cup) 20 gm PO DAILY PRN PRN Reason: Constipation Levothyroxine Sodium (Levothyroxine 25 Mcg Tab) 25 mcg PO DAILY@0700 [facility] Last Admin: 10/14/23 06:12 Dose: 25 mcg Loratadine (Loratadine 10 Mg Tab) 5 mg PO DAILY [facility] Last Admin: 10/14/23 09:43 Dose: 5 mg Magnesium Oxide (Magnesium Oxide 400 Mg Tab) 400 mg PO DAILY [facility] Last Admin: 10/14/23 09:44 Dose: 400 mg Metoprolol Tartrate (Metoprolol Tartrate 50 Mg Tab) 50 mg PO BID [facility] Last Admin: 10/14/23 09:43 Dose: 50 mg Pantoprazole Sodium (Pantoprazole 40 Mg Tablet) 40 mg PO AC-BID@0800,1700 [facility] Last Admin: 10/14/23 09:43 Dose: 40 mg Prednisone (Prednisone 20 Mg Tab) 40 mg PO DAILY [facility] Stop: 10/17/23 22:31 Last Admin: 10/14/23 09:44 Dose: 40 mg Senna/Docusate Sodium (Sennosides-Docusate Sodium 1 Each Tab) 1 each PO BID [facility] Last Admin: 10/14/23 09:43 Dose: 1 each Tamsulosin HCl (Tamsulosin 0.4 Mg Cap.Er.24h) 0.4 mg PO DAILY [facility] Last Admin: 10/14/23 09:44 Dose: 0.4 mg Zinc Sulfate (Zinc Sulfate 220 Mg Cap) 220 mg PO DAILY [facility] Last Admin: 10/14/23 09:43 Dose: 220 mg On examination: VITAL SIGNS: 98.6, 80, 24, 154 T 65, 96% on 4 L GENERAL: Laying in bed. EYES: Pupils equal. Conjunctiva normal. HEENT: External appearance of nose and ears normal, oral cavity grossly normal. NECK: JVD possibly raised; masses not palpable. Hard mass of the left upper neck going to the mandible. Hard. HEART: Heart sounds irregular; edema present LUNGS: Respiratory rate increased; decreased breath sounds. ABDOMEN: Soft, nontender, liver spleen not palpable, no masses palpable. PSYCH: Alert and oriented x3; mood and affect normal EXTREMITY: Left upper extremity swelling MUSCULOSKELETAL:No Clubbing/cyanosis;muscles-grossly intact. OA NEUROLOGICAL: Some facial asymmetry secondary to left neck mass. Otherwise cranial nerves grossly intact. Power and sensation grossly intact INVESTIGATIONS, reviewed in the clinical context: October 14: White count 10.4 hemoglobin 9.2 platelets 184 potassium 4.1 creatinine 1.24 October 13: White count 4.5 hemoglobin 9.9 platelets 175 sodium 134 potassium 4.6 creatinine 1.13 CRP 5.5 Assessment and plan: -Acute COVID-19 pneumonia, slow improving Prednisone 40 mg daily for 5 days -Possible left basilar pneumonia/atelectasis. Elevated procalcitonin level. IV ceftriaxone -Metastatic urothelial carcinoma: -Completed treatment with concurrent chemo/RT in 06/2020. Was following up for observation in clinic through 11/2021 with no evidence of recurrence. Stopped f/u with urology in February 2022 due to insurance reasons, and has not had f/u since -Progressing left neck mass. Biopsy of the lt neck mass revealed metastatic non- small cell carcinoma consistent with metastatic high-grade urothelial carcinoma. Radiation treatment. Follow Dr. Banda -Acute hypoxic respiratory failure secondary to Covid 19 4 L nasal cannula -Mild acute on chronic CHF exacerbation with preserved ejection fraction EF 50- 55%: Better Lasix by mouth -Chronic kidney disease likely likely hydronephrosis secondary to cardiorenal syndrome. Along with right-sided hydronephrosis Follow renal function -Coronary artery disease with history of stent 2019 Lipitor, Lopressor -Chronic esophagitis with Otoole's esophagus Protonix -COPD in a prior smoker Ventolin when necessary. Symbicort. 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 Superficial thrombosis within the left cephalic vein. Eliquis Sleeve left upper extremity Followed by Dr. Montalvo from vascular. -Hyperlipidemia Lipitor -Diabetes type 2 insulin-dependent A1c 8.3, uncontrolled with hyperglycemia, secondary to steroids Increase Levemir to 34 units daily at bedtime. Give one-time dose of 12 units of NPH to cover to the evening -Hypothyroid Synthroid 25 -BPH Flomax Patient has been in the ICU. Can move to the medical floor. Discussed with the nurse and patient. Sit up in a chair. Incentive spirometry. Encourage oral intake.
[2023-10-14 16:41] LABS: Glucose,Whole Blood 358 mg/dL (70-110)
[2023-10-14] MEDS ORDERED: DEXTROSE 50% SYRINGE 50 ML IVP PRN ×2 (17:34)
[2023-10-14] MEDS: INSULIN ASPART (NovoLOG) 100 UNIT/ML VIAL SQ SCH ×2 (17:40→21:11)
[2023-10-14] MEDS ORDERED: INSULIN ASPART (NovoLOG) 100 UNIT/ML VIAL SQ ONE (17:45)
[2023-10-14 20:38] LABS: Glucose,Whole Blood 354 mg/dL (70-110)
[2023-10-15 05:29] LABS: Glucose,Whole Blood 183 mg/dL (70-110)
[2023-10-15] MEDS: INSULIN ASPART (NovoLOG) 100 UNIT/ML VIAL SQ SCH ×4 (05:58→20:54)
[2023-10-15] MEDS: LEVOTHYROXINE 25 MCG TAB PO SCH (05:58)
[2023-10-15] MEDS: MAGNESIUM OXIDE 400 MG TAB PO SCH (07:51)
[2023-10-15] MEDS: FUROSEMIDE 40 MG TAB PO SCH ×2 (07:51→16:46)
[2023-10-15] MEDS: ZINC SULFATE 220 MG CAP PO SCH (07:51)
[2023-10-15] MEDS: ASPIRIN 81 MG PO SCH (07:51)
[2023-10-15] MEDS: METOPROLOL TARTRATE 50 MG TAB PO SCH ×2 (07:51→20:54)
[2023-10-15] MEDS: PANTOPRAZOLE 40 MG TABLET PO SCH ×2 (07:51→16:45)
[2023-10-15] MEDS: CHOLECALCIFEROL 25 MCG (1000 IU) TABLET PO SCH (07:51)
[2023-10-15] MEDS: predniSONE 20 MG TAB PO SCH (07:51)
[2023-10-15] MEDS: APIXABAN 5 MG TAB PO SCH ×2 (07:51→20:54)
[2023-10-15] MEDS: TAMSULOSIN 0.4 MG CAP.ER.24H PO SCH (07:51)
[2023-10-15] MEDS: LORATADINE 10 MG TAB PO SCH (07:52)
[2023-10-15] MEDS: ATORVASTATIN 80 MG TAB PO SCH (07:52)
[2023-10-15] MEDS: SENNOSIDES-DOCUSATE SODIUM 1 EACH TAB PO SCH ×2 (07:52→20:54)
[2023-10-15] MEDS: ASCORBIC ACID 500 MG TAB PO SCH (07:52)
[2023-10-15] MEDS: CALCIUM CARBONATE 500 MG CHEWABLE PO SCH ×3 (07:54→16:46)
[2023-10-15] MEDS: HYDROcodone/APAP 7.5-325MG 1 EACH TAB PO PRN ×2 (08:34→21:23)
[2023-10-15] MEDS: SYMBICORT 80-4.5 MCG INHALER INHALATION SCH ×2 (09:33→16:17)
[2023-10-15 11:27] LABS: Glucose,Whole Blood 143 mg/dL (70-110)
--- NOTE | 2023-10-15 14:57 | P.PN ---
Progress Note - Text Progress Note Date: 10/15/23 Patient is a 73-year-old male with a known history of metastatic high-grade urothelial carcinoma status post left neck mass lymph node biopsy, urothelial cancer status post chemo/RT in 06/2020, coronary artery disease with history of stent placement, chronic HFpEF, CKD stage IIIb with baseline creatinine level 1.5-1.7, diabetic nephropathy, diabetes type 2 insulin-dependent, hypertension, osteoarthritis, chronic low back pain, prior history of smoking was sent from [facility] due to complaints of fever. Patient has been coughing more than normal and mild shortness of breath and generalized weakness. Patient does have cough with clear sputum production. Otherwise denies any nausea vomiting or abdominal pain or diarrhea. Denies any dysuria or hematuria. Patient does have left upper extremity DVT diagnosed in July 2023 and is on Eliquis currently. On admission chest x-ray showed mild cardiomegaly with mild central vascular congestion. COPD changes. Relatively stable left basilar opacity compared to prior likely a combination of pleural effusion with atelectasis/airspace disease. EKG showed sinus rhythm with heart rate 89 Patient was recently admitted to hospital 09/11/2023 s/p treatment for acute on chronic CHF with preserved ejection fraction. Laboratory showed WBC 8.9 hemoglobin 8.6, MCV 103.0 and platelets 149 Sodium 134 potassium 4.0 chloride 99 bicarb is 28 BUN 32 and creatinine 1.22 and blood sugar is 151 lactic acid 1.3 and calcium 7.5 liver enzymes are not elevated CRP 14.0 albumin 2.5 B12 level is 581 and urinalysis is negative for infection COVID-19 PCR detected. 10/10/2023 Patient is lying in the bed. Awake alert and oriented x 3. No complaints of chest pain. Shortness of breath is better as per patient. Currently on 2 L oxygen via nasal cannula. No nausea vomiting or abdominal pain. Left upper extremity still swollen. Continued on anticoagulation with Eliquis with recent history of DVT. Chest x-ray showed relatively stable left basilar opacity likely combination of pleural effusion with atelectasis/airspace disease. Procalcitonin level is s lightly elevated at 0.19. Started on antibiotics in the form of ceftriaxone and follow-up culture reports. Patient has been afebrile overnight. No headache or dizziness or lightheadedness. Pain is controlled. Laboratory showed WBC 6.4 hemoglobin 9.3 and platelets 157 Sodium 135 potassium 3.8 chloride 99 bicarb is 27 BUN 28 and creatinine 1.2 and blood sugar is 68 this morning. A1c level is 8.3 and calcium 7.6 and procalcitonin level is 0.19 proBNP 2160. 10/11/2023 Patient is currently lying in bed. Awake alert and oriented x 3. Patient states that his breathing is better. Currently on 2 L oxygen via nasal cannula. No complaints of nausea or vomiting. Cough without any sputum production. Patient has been afebrile. Currently being continued on antibiotics ceftriaxone azithromycin for possible bacterial pneumonia. Slightly elevated procalcitonin level. Left upper extremity swelling is better. Continued on anticoagulation due to recent history of DVT. Laboratory showed WBC 5.6 hemoglobin 8.8 and platelets 150 sodium 137 potassium 4.0 chloride 99 bicarb is 27 BUN 25.4 and creatinine 1.4 and calcium 7.7 10/12/2023 Patient is currently resting in the bed. Awake alert and oriented x 3. No complaints of chest pain. Patient has been having cough and expiratory wheezing on examination. Currently requiring 3 L oxygen via nasal cannula. Patient is on IV antibiotics for possible pneumonia and also will add prednisone 40 mg daily for 5 days. Otherwise patient denies any nausea vomiting abdominal pain or diarrhea. Left upper extremity swelling is improving. Continued on anticoagulation with Eliquis due to recent history of DVT. Laboratory pressure WBC 6.6 hemoglobin 8.9 and platelets 168 BUN 22.9 and creatinine 1.4 and blood sugar is 120 and calcium 7.4. Patient is awaiting authorization to get back to his ECF. 10/13/2023: I assumed care of the patient today. Eating well. Slight cough. Pending authorization to go to rehab. Had a bowel movement. Otherwise comfortable 10/14/2023: Patient asked checks and up to 500 yesterday evening. Moved to the ICU as a bed was not available on telemetry floor. Accu-Cheks doing better today. On 4 L nasal cannula. Labs the patient sit up in a chair use incentive spirometry. Insulin drip was taken off this morning. Increase Levemir to 34 units. 10/15/2023: Eating better. Up in a chair. Use incentive spirometry. Accu- Cheks better. Active Medications Acetaminophen (Acetaminophen Tab 325 Mg Tab) 650 mg PO Q6HR PRN PRN Reason: Fever and/ or Pain Last Admin: 10/12/23 20:36 Dose: 650 mg Hydrocodone Bitart/Acetaminophen (Hydrocodone/Apap 7.5-325mg 1 Each Tab) 1 each PO Q6H PRN PRN Reason: Pain Last Admin: 10/15/23 08:34 Dose: 1 each Albuterol Sulfate (Albuterol Hfa Inhaler) 1 puff INHALATION RT-Q6H PRN PRN Reason: Wheezing Last Admin: 10/14/23 07:48 Dose: 1 puff Apixaban (Apixaban 5 Mg Tab) 5 mg PO BID [facility]; Protocol Last Admin: 10/15/23 07:51 Dose: 5 mg Ascorbic Acid (Ascorbic Acid 500 Mg Tab) 500 mg PO DAILY [facility] Last Admin: 10/15/23 07:52 Dose: 500 mg Aspirin (Aspirin 81 Mg) 81 mg PO DAILY [facility] Last Admin: 10/15/23 07:51 Dose: 81 mg Atorvastatin Calcium (Atorvastatin 80 Mg Tab) 80 mg PO DAILY [facility] Last Admin: 10/15/23 07:52 Dose: 80 mg Budesonide/Formoterol Fumarate (Symbicort 80-4.5 Mcg Inhaler) 2 puff INHALATION RT-BID [facility] Last Admin: 10/15/23 09:33 Dose: Not Given Calcium Carbonate/Glycine (Calcium Carbonate 500 Mg Chewable) 1,000 mg PO PC- TID [facility] Last Admin: 10/15/23 12:58 Dose: 1,000 mg Cholecalciferol (Cholecalciferol 25 Mcg (1000 Iu) Tablet) 50 mcg PO DAILY [facility] Last Admin: 10/15/23 07:51 Dose: 50 mcg Dextrose/Water (Dextrose 50% Syringe 50 Ml) 25 ml IVP PER PROTOCOL PRN; Protocol PRN Reason: Hypoglycemia Dextrose/Water (Dextrose 50% Syringe 50 Ml) 50 ml IVP PER PROTOCOL PRN; Protocol PRN Reason: Hypoglycemia Furosemide (Furosemide 40 Mg Tab) 40 mg PO BID@0900,1600 [facility] Last Admin: 10/15/23 07:51 Dose: 40 mg Ceftriaxone Sodium 1 gm/ (Sodium Chloride) 50 mls @ 100 mls/hr IVPB Q24HR [facility]; Protocol Last Admin: 10/15/23 07:54 Dose: 100 mls/hr Insulin Human Regular 100 unit (/ Sodium Chloride) 100 mls @ 0 mls/hr IV .Q0M [facility]; Protocol Last Titration: 10/14/23 03:32 Dose: 0 units/hr, 0 mls/hr Insulin Aspart (Insulin Aspart (Novolog) 100 Unit/Ml Vial) 0 unit SQ ACHS [facility]; Protocol Last Admin: 10/15/23 11:30 Dose: Not Given Insulin Detemir (Insulin Detemir (Levemir) 100 Unit/Ml Syr) 34 unit SQ HS [facility] Last Admin: 10/14/23 21:11 Dose: 34 unit Lactulose (Lactulose 20 Gm/30 Ml Cup) 20 gm PO DAILY PRN PRN Reason: Constipation Levothyroxine Sodium (Levothyroxine 25 Mcg Tab) 25 mcg PO DAILY@0700 [facility] Last Admin: 10/15/23 05:58 Dose: 25 mcg Loratadine (Loratadine 10 Mg Tab) 5 mg PO DAILY [facility] Last Admin: 10/15/23 07:52 Dose: 5 mg Magnesium Oxide (Magnesium Oxide 400 Mg Tab) 400 mg PO DAILY [facility] Last Admin: 10/15/23 07:51 Dose: 400 mg Metoprolol Tartrate (Metoprolol Tartrate 50 Mg Tab) 50 mg PO BID [facility] Last Admin: 10/15/23 07:51 Dose: 50 mg Pantoprazole Sodium (Pantoprazole 40 Mg Tablet) 40 mg PO AC-BID@0800,1700 [facility] Last Admin: 10/15/23 07:51 Dose: 40 mg Prednisone (Prednisone 20 Mg Tab) 40 mg PO DAILY [facility] Stop: 10/17/23 22:31 Last Admin: 10/15/23 07:51 Dose: 40 mg Senna/Docusate Sodium (Sennosides-Docusate Sodium 1 Each Tab) 1 each PO BID [facility] Last Admin: 10/15/23 07:52 Dose: 1 each Tamsulosin HCl (Tamsulosin 0.4 Mg Cap.Er.24h) 0.4 mg PO DAILY [facility] Last Admin: 10/15/23 07:51 Dose: 0.4 mg Zinc Sulfate (Zinc Sulfate 220 Mg Cap) 220 mg PO DAILY [facility] Last Admin: 10/15/23 07:51 Dose: 220 mg On examination: VITAL SIGNS: 98.8, 71, 19, 1/54, 97% on 2 L GENERAL: Up in a chair EYES: Pupils equal. Conjunctiva normal. HEENT: External appearance of nose and ears normal, oral cavity grossly normal. NECK: JVD possibly raised; masses not palpable. Hard mass of the left upper neck going to the mandible. Hard. HEART: Heart sounds irregular; edema present LUNGS: Respiratory rate increased; decreased breath sounds. ABDOMEN: Soft, nontender, liver spleen not palpable, no masses palpable. PSYCH: Alert and oriented x3; mood and affect normal EXTREMITY: Left upper extremity swelling MUSCULOSKELETAL:No Clubbing/cyanosis;muscles-grossly intact. OA NEUROLOGICAL: Some facial asymmetry secondary to left neck mass. Otherwise cranial nerves grossly intact. Power and sensation grossly intact INVESTIGATIONS, reviewed in the clinical context: October 14: White count 10.4 hemoglobin 9.2 platelets 184 potassium 4.1 creatinine 1.24 October 13: White count 4.5 hemoglobin 9.9 platelets 175 sodium 134 potassium 4.6 creatinine 1.13 CRP 5.5 Assessment and plan: -Acute COVID-19 pneumonia, slow improving Prednisone 40 mg daily for 5 days -Possible left basilar pneumonia/atelectasis. Elevated procalcitonin level.: Improving IV ceftriaxone -Metastatic urothelial carcinoma: -Completed treatment with concurrent chemo/RT in 06/2020. Was following up for observation in clinic through 11/2021 with no evidence of recurrence. Stopped f/u with urology in February 2022 due to insurance reasons, and has not had f/u since -Progressing left neck mass. Biopsy of the lt neck mass revealed metastatic non- small cell carcinoma consistent with metastatic high-grade urothelial carcinoma. Radiation treatment. Follow Dr. Banda -Acute hypoxic respiratory failure secondary to Covid 19: Better 2 L nasal cannula -Chronic hypoxic respiratory failure Baseline 2 L nasal cannula -Mild acute on chronic CHF exacerbation with preserved ejection fraction EF 50- 55%: Better Lasix by mouth -Chronic kidney disease likely likely hydronephrosis secondary to cardiorenal syndrome. Along with right-sided hydronephrosis Follow renal function -Coronary artery disease with history of stent 2019 Lipitor, Lopressor -Chronic esophagitis with Otoole's esophagus Protonix -COPD in a prior smoker Ventolin when necessary. Symbicort. 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 Superficial thrombosis within the left cephalic vein. Eliquis Sleeve left upper extremity Followed by Dr. Montalvo from vascular. -Hyperlipidemia Lipitor -Diabetes type 2 insulin-dependent A1c 8.3, uncontrolled with hyperglycemia, secondary to steroids Increase Levemir to 34 units daily at bedtime. Give one-time dose of 12 units of NPH to cover to the evening -Hypothyroid Synthroid 25 -BPH Flomax Incentive spirometry. Down to 2 L nasal cannula. Plan for discharge to rehab tomorrow.
[2023-10-15] MEDS: ALBUTEROL HFA INHALER INHALATION PRN (16:17)
[2023-10-15 16:26] LABS: Glucose,Whole Blood 328 mg/dL (70-110)
[2023-10-15 20:22] LABS: Glucose,Whole Blood 325 mg/dL (70-110)
[2023-10-15] MEDS: INSULIN DETEMIR (LEVEMIR) 100 UNIT/ML SYR SQ SCH (20:54)
[2023-10-16 05:31] LABS: Glucose,Whole Blood 100 mg/dL (70-110)
[2023-10-16] MEDS: INSULIN ASPART (NovoLOG) 100 UNIT/ML VIAL SQ SCH ×4 (05:57→21:27)
[2023-10-16] MEDS: LEVOTHYROXINE 25 MCG TAB PO SCH (06:32)
[2023-10-16] MEDS: SYMBICORT 80-4.5 MCG INHALER INHALATION SCH ×2 (09:23→21:03)
[2023-10-16] MEDS: ALBUTEROL HFA INHALER INHALATION PRN ×2 (09:23→21:03)
[2023-10-16] MEDS: METOPROLOL TARTRATE 50 MG TAB PO SCH ×2 (09:45→21:27)
[2023-10-16] MEDS: predniSONE 20 MG TAB PO SCH (09:45)
[2023-10-16] MEDS: ASPIRIN 81 MG PO SCH (09:45)
[2023-10-16] MEDS: CALCIUM CARBONATE 500 MG CHEWABLE PO SCH ×3 (09:45→17:42)
[2023-10-16] MEDS: ASCORBIC ACID 500 MG TAB PO SCH (09:45)
[2023-10-16] MEDS: ZINC SULFATE 220 MG CAP PO SCH (09:46)
[2023-10-16] MEDS: SENNOSIDES-DOCUSATE SODIUM 1 EACH TAB PO SCH ×2 (09:46→21:27)
[2023-10-16] MEDS: PANTOPRAZOLE 40 MG TABLET PO SCH ×2 (09:46→16:33)
[2023-10-16] MEDS: ATORVASTATIN 80 MG TAB PO SCH (09:46)
[2023-10-16] MEDS: TAMSULOSIN 0.4 MG CAP.ER.24H PO SCH (09:46)
[2023-10-16] MEDS: FUROSEMIDE 40 MG TAB PO SCH ×2 (09:46→16:33)
[2023-10-16] MEDS: CHOLECALCIFEROL 25 MCG (1000 IU) TABLET PO SCH (09:46)
[2023-10-16] MEDS: LORATADINE 10 MG TAB PO SCH (09:46)
[2023-10-16] MEDS: MAGNESIUM OXIDE 400 MG TAB PO SCH (09:46)
[2023-10-16] MEDS: APIXABAN 5 MG TAB PO SCH ×2 (09:46→21:27)
[2023-10-16] MEDS: HYDROcodone/APAP 7.5-325MG 1 EACH TAB PO PRN ×2 (10:00→23:10)
[2023-10-16 11:12] LABS: Glucose,Whole Blood 156 mg/dL (70-110)
[2023-10-16] MEDS: amLODIPine 5 MG TAB PO SCH (12:12)
[2023-10-16 16:54] LABS: Glucose,Whole Blood 253 mg/dL (70-110)
--- NOTE | 2023-10-16 20:14 | P.PN ---
Progress Note - Text Progress Note Date: 10/16/23 Patient is a 73-year-old male with a known history of metastatic high-grade urothelial carcinoma status post left neck mass lymph node biopsy, urothelial cancer status post chemo/RT in 06/2020, coronary artery disease with history of stent placement, chronic HFpEF, CKD stage IIIb with baseline creatinine level 1.5-1.7, diabetic nephropathy, diabetes type 2 insulin-dependent, hypertension, osteoarthritis, chronic low back pain, prior history of smoking was sent from [facility] due to complaints of fever. Patient has been coughing more than normal and mild shortness of breath and generalized weakness. Patient does have cough with clear sputum production. Otherwise denies any nausea vomiting or abdominal pain or diarrhea. Denies any dysuria or hematuria. Patient does have left upper extremity DVT diagnosed in July 2023 and is on Eliquis currently. On admission chest x-ray showed mild cardiomegaly with mild central vascular congestion. COPD changes. Relatively stable left basilar opacity compared to prior likely a combination of pleural effusion with atelectasis/airspace disease. EKG showed sinus rhythm with heart rate 89 Patient was recently admitted to hospital 09/11/2023 s/p treatment for acute on chronic CHF with preserved ejection fraction. Laboratory showed WBC 8.9 hemoglobin 8.6, MCV 103.0 and platelets 149 Sodium 134 potassium 4.0 chloride 99 bicarb is 28 BUN 32 and creatinine 1.22 and blood sugar is 151 lactic acid 1.3 and calcium 7.5 liver enzymes are not elevated CRP 14.0 albumin 2.5 B12 level is 581 and urinalysis is negative for infection COVID-19 PCR detected. 10/10/2023 Patient is lying in the bed. Awake alert and oriented x 3. No complaints of chest pain. Shortness of breath is better as per patient. Currently on 2 L oxygen via nasal cannula. No nausea vomiting or abdominal pain. Left upper extremity still swollen. Continued on anticoagulation with Eliquis with recent history of DVT. Chest x-ray showed relatively stable left basilar opacity likely combination of pleural effusion with atelectasis/airspace disease. Procalcitonin level is s lightly elevated at 0.19. Started on antibiotics in the form of ceftriaxone and follow-up culture reports. Patient has been afebrile overnight. No headache or dizziness or lightheadedness. Pain is controlled. Laboratory showed WBC 6.4 hemoglobin 9.3 and platelets 157 Sodium 135 potassium 3.8 chloride 99 bicarb is 27 BUN 28 and creatinine 1.2 and blood sugar is 68 this morning. A1c level is 8.3 and calcium 7.6 and procalcitonin level is 0.19 proBNP 2160. 10/11/2023 Patient is currently lying in bed. Awake alert and oriented x 3. Patient states that his breathing is better. Currently on 2 L oxygen via nasal cannula. No complaints of nausea or vomiting. Cough without any sputum production. Patient has been afebrile. Currently being continued on antibiotics ceftriaxone azithromycin for possible bacterial pneumonia. Slightly elevated procalcitonin level. Left upper extremity swelling is better. Continued on anticoagulation due to recent history of DVT. Laboratory showed WBC 5.6 hemoglobin 8.8 and platelets 150 sodium 137 potassium 4.0 chloride 99 bicarb is 27 BUN 25.4 and creatinine 1.4 and calcium 7.7 10/12/2023 Patient is currently resting in the bed. Awake alert and oriented x 3. No complaints of chest pain. Patient has been having cough and expiratory wheezing on examination. Currently requiring 3 L oxygen via nasal cannula. Patient is on IV antibiotics for possible pneumonia and also will add prednisone 40 mg daily for 5 days. Otherwise patient denies any nausea vomiting abdominal pain or diarrhea. Left upper extremity swelling is improving. Continued on anticoagulation with Eliquis due to recent history of DVT. Laboratory pressure WBC 6.6 hemoglobin 8.9 and platelets 168 BUN 22.9 and creatinine 1.4 and blood sugar is 120 and calcium 7.4. Patient is awaiting authorization to get back to his ECF. 10/13/2023: I assumed care of the patient today. Eating well. Slight cough. Pending authorization to go to rehab. Had a bowel movement. Otherwise comfortable 10/14/2023: Patient asked checks and up to 500 yesterday evening. Moved to the ICU as a bed was not available on telemetry floor. Accu-Cheks doing better today. On 4 L nasal cannula. Labs the patient sit up in a chair use incentive spirometry. Insulin drip was taken off this morning. Increase Levemir to 34 units. 10/15/2023: Eating better. Up in a chair. Use incentive spirometry. Accu- Cheks better. 10/16/2023: Breathing better. Tolerating diet. Called patient's insurance company was on hold for 15 minutes. Could not get through. This is authorization. social services manager informed Active Medications Acetaminophen (Acetaminophen Tab 325 Mg Tab) 650 mg PO Q6HR PRN PRN Reason: Fever and/ or Pain Last Admin: 10/12/23 20:36 Dose: 650 mg Hydrocodone Bitart/Acetaminophen (Hydrocodone/Apap 7.5-325mg 1 Each Tab) 1 each PO Q6H PRN PRN Reason: Pain Last Admin: 10/16/23 10:00 Dose: 1 each Albuterol Sulfate (Albuterol Hfa Inhaler) 1 puff INHALATION RT-Q6H PRN PRN Reason: Wheezing Last Admin: 10/16/23 09:23 Dose: 1 puff Amlodipine Besylate (Amlodipine 5 Mg Tab) 5 mg PO DAILY [facility] Last Admin: 10/16/23 12:12 Dose: 5 mg Apixaban (Apixaban 5 Mg Tab) 5 mg PO BID [facility]; Protocol Last Admin: 10/16/23 09:46 Dose: 5 mg Ascorbic Acid (Ascorbic Acid 500 Mg Tab) 500 mg PO DAILY [facility] Last Admin: 10/16/23 09:45 Dose: 500 mg Aspirin (Aspirin 81 Mg) 81 mg PO DAILY [facility] Last Admin: 10/16/23 09:45 Dose: 81 mg Atorvastatin Calcium (Atorvastatin 80 Mg Tab) 80 mg PO DAILY [facility] Last Admin: 10/16/23 09:46 Dose: 80 mg Budesonide/Formoterol Fumarate (Symbicort 80-4.5 Mcg Inhaler) 2 puff INHALATION RT-BID [facility] Last Admin: 10/16/23 09:23 Dose: 2 puff Calcium Carbonate/Glycine (Calcium Carbonate 500 Mg Chewable) 1,000 mg PO PC- TID [facility] Last Admin: 10/16/23 17:42 Dose: 1,000 mg Cholecalciferol (Cholecalciferol 25 Mcg (1000 Iu) Tablet) 50 mcg PO DAILY [facility] Last Admin: 10/16/23 09:46 Dose: 50 mcg Dextrose/Water (Dextrose 50% Syringe 50 Ml) 25 ml IVP PER PROTOCOL PRN; Protocol PRN Reason: Hypoglycemia Dextrose/Water (Dextrose 50% Syringe 50 Ml) 50 ml IVP PER PROTOCOL PRN; Protocol PRN Reason: Hypoglycemia Furosemide (Furosemide 40 Mg Tab) 40 mg PO BID@0900,1600 [facility] Last Admin: 10/16/23 16:33 Dose: 40 mg Ceftriaxone Sodium 1 gm/ (Sodium Chloride) 50 mls @ 100 mls/hr IVPB Q24HR [facility]; Protocol Last Admin: 10/16/23 09:46 Dose: 100 mls/hr Insulin Human Regular 100 unit (/ Sodium Chloride) 100 mls @ 0 mls/hr IV .Q0M [facility]; Protocol Last Titration: 10/14/23 03:32 Dose: 0 units/hr, 0 mls/hr Insulin Aspart (Insulin Aspart (Novolog) 100 Unit/Ml Vial) 0 unit SQ ACHS [facility]; Protocol Last Admin: 10/16/23 17:42 Dose: 4 unit Insulin Detemir (Insulin Detemir (Levemir) 100 Unit/Ml Syr) 34 unit SQ HS [facility] Last Admin: 10/15/23 20:54 Dose: 34 unit Lactulose (Lactulose 20 Gm/30 Ml Cup) 20 gm PO DAILY PRN PRN Reason: Constipation Levothyroxine Sodium (Levothyroxine 25 Mcg Tab) 25 mcg PO DAILY@0700 [facility] Last Admin: 10/16/23 06:32 Dose: 25 mcg Loratadine (Loratadine 10 Mg Tab) 5 mg PO DAILY [facility] Last Admin: 10/16/23 09:46 Dose: 5 mg Magnesium Oxide (Magnesium Oxide 400 Mg Tab) 400 mg PO DAILY [facility] Last Admin: 10/16/23 09:46 Dose: 400 mg Metoprolol Tartrate (Metoprolol Tartrate 50 Mg Tab) 50 mg PO BID [facility] Last Admin: 10/16/23 09:45 Dose: 50 mg Pantoprazole Sodium (Pantoprazole 40 Mg Tablet) 40 mg PO AC-BID@0800,1700 [facility] Last Admin: 10/16/23 16:33 Dose: 40 mg Prednisone (Prednisone 20 Mg Tab) 40 mg PO DAILY [facility] Stop: 10/17/23 22:31 Last Admin: 10/16/23 09:45 Dose: 40 mg Senna/Docusate Sodium (Sennosides-Docusate Sodium 1 Each Tab) 1 each PO BID [facility] Last Admin: 10/16/23 09:46 Dose: 1 each Tamsulosin HCl (Tamsulosin 0.4 Mg Cap.Er.24h) 0.4 mg PO DAILY [facility] Last Admin: 10/16/23 09:46 Dose: 0.4 mg Zinc Sulfate (Zinc Sulfate 220 Mg Cap) 220 mg PO DAILY [facility] Last Admin: 10/16/23 09:46 Dose: 220 mg On examination: VITAL SIGNS: At 8.3, 70, 19, 150/69, 97% on 2 L GENERAL: reclining, comfortable EYES: Pupils equal. Conjunctiva normal. HEENT: External appearance of nose and ears normal, oral cavity grossly normal. NECK: JVD possibly raised; masses not palpable. Hard mass of the left upper neck going to the mandible. Hard. HEART: Heart sounds irregular; edema present LUNGS: Respiratory rate increased; decreased breath sounds. ABDOMEN: Soft, nontender, liver spleen not palpable, no masses palpable. PSYCH: Alert and oriented x3; mood and affect normal EXTREMITY: Left upper extremity swelling MUSCULOSKELETAL:No Clubbing/cyanosis;muscles-grossly intact. OA NEUROLOGICAL: Some facial asymmetry secondary to left neck mass. Otherwise cranial nerves grossly intact. Power and sensation grossly intact INVESTIGATIONS, reviewed in the clinical context: October 14: White count 10.4 hemoglobin 9.2 platelets 184 potassium 4.1 creatinine 1.24 October 13: White count 4.5 hemoglobin 9.9 platelets 175 sodium 134 potassium 4.6 creatinine 1.13 CRP 5.5 Assessment and plan: -Acute COVID-19 pneumonia, improving Prednisone 40 mg daily for 5 days -Possible left basilar pneumonia/atelectasis. Elevated procalcitonin level.: Better IV ceftriaxone-discontinued after today -Metastatic urothelial carcinoma: -Completed treatment with concurrent chemo/RT in 06/2020. Was following up for observation in clinic through 11/2021 with no evidence of recurrence. Stopped f/u with urology in February 2022 due to insurance reasons, and has not had f/u since -Progressing left neck mass. Biopsy of the lt neck mass revealed metastatic non- small cell carcinoma consistent with metastatic high-grade urothelial carcinoma. Radiation treatment. Follow Dr. Banda -Acute hypoxic respiratory failure secondary to Covid 19: Better 2 L nasal cannula -Chronic hypoxic respiratory failure Baseline 2 L nasal cannula -Mild acute on chronic CHF exacerbation with preserved ejection fraction EF 50- 55%: Better Lasix by mouth -Chronic kidney disease likely likely hydronephrosis secondary to cardiorenal syndrome. Along with right-sided hydronephrosis Follow renal function -Coronary artery disease with history of stent 2019 Lipitor, Lopressor -Chronic esophagitis with Otoole's esophagus Protonix -COPD in a prior smoker Ventolin when necessary. Symbicort. 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 Superficial thrombosis within the left cephalic vein. Eliquis Sleeve left upper extremity Followed by Dr. Montalvo from vascular. -Hyperlipidemia Lipitor -Diabetes type 2 insulin-dependent A1c 8.3, uncontrolled with hyperglycemia, secondary to steroids Increase Levemir to 34 units daily at bedtime. -Hypothyroid Synthroid 25 -BPH Flomax Stop IV ceftriaxone after today. pEnding authorization. I spent over 14 minutes on the phone was put on hold. youth accommodation support worker informed
[2023-10-16 21:00] LABS: Glucose,Whole Blood 399 mg/dL (70-110)
[2023-10-16] MEDS: INSULIN DETEMIR (LEVEMIR) 100 UNIT/ML SYR SQ SCH (21:27)
[2023-10-16 22:51] VITALS: TEMP 98.4
[2023-10-17 05:41] LABS: Glucose,Whole Blood 199 mg/dL (70-110)
[2023-10-17] MEDS: LEVOTHYROXINE 25 MCG TAB PO SCH (06:13)
[2023-10-17] MEDS: INSULIN ASPART (NovoLOG) 100 UNIT/ML VIAL SQ SCH ×2 (06:13→11:53)
[2023-10-17] MEDS: FUROSEMIDE 40 MG TAB PO SCH (08:18)
[2023-10-17] MEDS: CHOLECALCIFEROL 25 MCG (1000 IU) TABLET PO SCH (08:18)
[2023-10-17] MEDS: ASCORBIC ACID 500 MG TAB PO SCH (08:18)
[2023-10-17] MEDS: ASPIRIN 81 MG PO SCH (08:18)
[2023-10-17] MEDS: APIXABAN 5 MG TAB PO SCH (08:18)
[2023-10-17] MEDS: LORATADINE 10 MG TAB PO SCH (08:18)
[2023-10-17] MEDS: amLODIPine 5 MG TAB PO SCH (08:19)
[2023-10-17] MEDS: TAMSULOSIN 0.4 MG CAP.ER.24H PO SCH (08:19)
[2023-10-17] MEDS: PANTOPRAZOLE 40 MG TABLET PO SCH (08:19)
[2023-10-17] MEDS: SENNOSIDES-DOCUSATE SODIUM 1 EACH TAB PO SCH (08:19)
[2023-10-17] MEDS: CALCIUM CARBONATE 500 MG CHEWABLE PO SCH ×2 (08:19→11:53)
[2023-10-17] MEDS: METOPROLOL TARTRATE 50 MG TAB PO SCH (08:19)
[2023-10-17] MEDS: predniSONE 20 MG TAB PO SCH (08:19)
[2023-10-17] MEDS: ATORVASTATIN 80 MG TAB PO SCH (08:19)
[2023-10-17] MEDS: MAGNESIUM OXIDE 400 MG TAB PO SCH (08:19)
[2023-10-17] MEDS: ZINC SULFATE 220 MG CAP PO SCH (08:19)
[2023-10-17] MEDS: HYDROcodone/APAP 7.5-325MG 1 EACH TAB PO PRN (08:26)
[2023-10-17 08:50] VITALS: BP 137/55; PULSE 66; RESP 19
[2023-10-17] MEDS: SYMBICORT 80-4.5 MCG INHALER INHALATION SCH (09:57)
[2023-10-17 11:42] LABS: Glucose,Whole Blood 153 mg/dL (70-110)
--- NOTE | 2023-10-17 12:48 | P.DS ---
Providers Date of admission: 10/10/23 08:53 Expected date of discharge: 10/17/23 Attending physician: Lane Vergara Primary care physician: Slava Bronson [place] [facility] Course: Patient is a 73-year-old male with a known history of metastatic high-grade urothelial carcinoma status post left neck mass lymph node biopsy, urothelial cancer status post chemo/RT in 06/2020, coronary artery disease with history of stent placement, chronic HFpEF, CKD stage IIIb with baseline creatinine level 1.5-1.7, diabetic nephropathy, diabetes type 2 insulin-dependent, hypertension, osteoarthritis, chronic low back pain, prior history of smoking was sent from [facility] due to complaints of fever. Patient has been coughing more than normal and mild shortness of breath and generalized weakness. Patient does have cough with clear sputum production. Otherwise denies any nausea vomiting or abdominal pain or diarrhea. Denies any dysuria or hematuria. Patient does have left upper extremity DVT diagnosed in July 2023 and is on Eliquis currently. On admission chest x-ray showed mild cardiomegaly with mild central vascular congestion. COPD changes. Relatively stable left basilar opacity compared to prior likely a combination of pleural effusion with atelectasis/airspace disease. EKG showed sinus rhythm with heart rate 89 Patient was recently admitted to hospital 09/11/2023 s/p treatment for acute on chronic CHF with preserved ejection fraction. Laboratory showed WBC 8.9 hemoglobin 8.6, MCV 103.0 and platelets 149 Sodium 134 potassium 4.0 chloride 99 bicarb is 28 BUN 32 and creatinine 1.22 and blood sugar is 151 lactic acid 1.3 and calcium 7.5 liver enzymes are not elevated CRP 14.0 albumin 2.5 B12 level is 581 and urinalysis is negative for infection COVID-19 PCR detected. 10/10/2023 Patient is lying in the bed. Awake alert and oriented x 3. No complaints of chest pain. Shortness of breath is better as per patient. Currently on 2 L oxygen via nasal cannula. No nausea vomiting or abdominal pain. Left upper extremity still swollen. Continued on anticoagulation with Eliquis with recent history of DVT. Chest x-ray showed relatively stable left basilar opacity likely combination of pleural effusion with atelectasis/airspace disease. Procalcitonin level is slightly elevated at 0.19. Started on antibiotics in the form of ceftriaxone and follow-up culture reports. Patient has been afebrile overnight. No headache or dizziness or lightheadedness. Pain is controlled. Laboratory showed WBC 6.4 hemoglobin 9.3 and platelets 157 Sodium 135 potassium 3.8 chloride 99 bicarb is 27 BUN 28 and creatinine 1.2 and blood sugar is 68 this morning. A1c level is 8.3 and calcium 7.6 and procalcitonin level is 0.19 proBNP 2160. 10/11/2023 Patient is currently lying in bed. Awake alert and oriented x 3. Patient states that his breathing is better. Currently on 2 L oxygen via nasal cannula. No complaints of nausea or vomiting. Cough without any sputum production. Patient has been afebrile. Currently being continued on antibiotics ceftriaxone azithromycin for possible bacterial pneumonia. Slightly elevated procalcitonin level. Left upper extremity swelling is better. Continued on anticoagulation due to recent history of DVT. Laboratory showed WBC 5.6 hemoglobin 8.8 and platelets 150 sodium 137 potassium 4.0 chloride 99 bicarb is 27 BUN 25.4 and creatinine 1.4 and calcium 7.7 10/12/2023 Patient is currently resting in the bed. Awake alert and oriented x 3. No complaints of chest pain. Patient has been having cough and expiratory wheezing on examination. Currently requiring 3 L oxygen via nasal cannula. Patient is on IV antibiotics for possible pneumonia and also will add prednisone 40 mg daily for 5 days. Otherwise patient denies any nausea vomiting abdominal pain or diarrhea. Left upper extremity swelling is improving. Continued on anticoagulation with Eliquis due to recent history of DVT. Laboratory pressure WBC 6.6 hemoglobin 8.9 and platelets 168 BUN 22.9 and creatinine 1.4 and blood sugar is 120 and calcium 7.4. Patient is awaiting authorization to get back to his ECF. 10/13/2023: I assumed care of the patient today. Eating well. Slight cough. Pending authorization to go to rehab. Had a bowel movement. Otherwise comfortable 10/14/2023: Patient asked checks and up to 500 yesterday evening. Moved to the ICU as a bed was not available on telemetry floor. Accu-Cheks doing better tofany granados. On 4 L nasal cannula. Labs the patient sit up in a chair use incentive spirometry. Insulin drip was taken off this morning. Increase Levemir to 34 units. 10/15/2023: Eating better. Up in a chair. Use incentive spirometry. Accu- Cheks better. 10/16/2023: Breathing better. Tolerating diet. Called patient's insurance company was on hold for 15 minutes. Could not get through. This is aut horization. manager cath lab informed 10/17/2020: Eating well. Using and second part of a tree. Discussed with skis manager sas. Patient been accepted at rehab. Patient to follow-up with oncology. Has had 3 out of 5 radiation treatments. Discussion and discharge planning more than 35 minutes On examination: VITAL SIGNS: 98.4, 66, 19, 137/55, 96% on 2 L GENERAL: reclining, comfortable EYES: Pupils equal. Conjunctiva normal. HEENT: External appearance of nose and ears normal, oral cavity grossly normal. NECK: JVD normal; masses not palpable. Hard mass of the left upper neck going to the mandible. Hard. HEART: Heart sounds irregular; edema present LUNGS: Respiratory rate increased; decreased breath sounds. ABDOMEN: Soft, nontender, liver spleen not palpable, no masses palpable. PSYCH: Alert and oriented x3; mood and affect normal EXTREMITY: Left upper extremity swelling MUSCULOSKELETAL:No Clubbing/cyanosis;muscles-grossly intact. OA NEUROLOGICAL: Some facial asymmetry secondary to left neck mass. Otherwise cranial nerves grossly intact. Power and sensation grossly intact INVESTIGATIONS, reviewed in the clinical context: October 14: White count 10.4 hemoglobin 9.2 platelets 184 potassium 4.1 creatinine 1.24 October 13: White count 4.5 hemoglobin 9.9 platelets 175 sodium 134 potassium 4.6 creatinine 1.13 CRP 5.5 Assessment and plan: -Acute COVID-19 pneumonia, improving Prednisone 40 mg daily for 5 days completed -Possible left basilar pneumonia/atelectasis. Elevated procalcitonin level.: Better IV completed -Metastatic urothelial carcinoma: -Completed treatment with concurrent chemo/RT in 06/2020. Was following up for observation in clinic through 11/2021 with no evidence of recurrence. Stopped f/u with urology in February 2022 due to insurance reasons, and has not had f/u since -Progressing left neck mass. Biopsy of the lt neck mass revealed metastatic non- small cell carcinoma consistent with metastatic high-grade urothelial carcinoma. Radiation treatment. Follow Dr. Banda -Acute hypoxic respiratory failure secondary to Covid 19: Better 2 L nasal cannula -Chronic hypoxic respiratory failure Baseline 2 L nasal cannula -Mild acute on chronic CHF exacerbation with preserved ejection fraction EF 50- 55%: Better Lasix by mouth -Chronic kidney disease likely likely hydronephrosis secondary to cardiorenal syndrome. Along with right-sided hydronephrosis Follow renal function -Coronary artery disease with history of stent 2019 Lipitor, Lopressor -Chronic esophagitis with Otoole's esophagus Protonix -COPD in a prior smoker Ventolin when necessary. Symbicort. 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 Superficial thrombosis within the left cephalic vein. Eliquis Sleeve left upper extremity Followed by Dr. Montalvo from vascular. -Hyperlipidemia Lipitor -Diabetes type 2 insulin-dependent A1c 8.3, uncontrolled with hyperglycemia, secondary to steroids Lantus 20 units daily at bedtime. Humalog 4 units before meals 3 times a day. Sliding scale. -Hypothyroid Synthroid 25 -BPH Flomax Disposition: Rehab at [facility] Plan - Discharge Summary Discharge Rx Participant: No New Discharge Prescriptions: New amLODIPine [Norvasc] 5 mg PO DAILY #1 tab Zinc Sulfate [Orazinc] 220 mg PO DAILY cap Ascorbic Acid [Vitamin C] 500 mg PO DAILY tab Continue Aspirin 81 mg PO DAILY #90 chewable Atorvastatin [Lipitor] 80 mg PO DAILY Apixaban [Eliquis] 5 mg PO BID #60 tab Tamsulosin [Flomax] 0.4 mg PO DAILY #30 cap Sennosides/Docusate Sodium [Senna-S 8.6-50 mg Tablet] 1 tab PO BID Budesonide/Formoterol Fumarate [Symbicort 80-4.5 Mcg Inhaler] 2 puff INHALATION RT-BID Ipratropium-Albuterol Nebulize [Duoneb 0.5 mg-3 mg/3 ml Soln] 3 ml INHALATION RT-Q6H Pantoprazole [Protonix] 40 mg PO AC-BID@0800,1700 Furosemide [Lasix] 80 mg PO BID@0900,1600 #60 tab Cholecalciferol [Vitamin D3 (25 Mcg = 1000 Iu)] 50 mcg PO DAILY Insulin Lispro [humaLOG Kwikpen] 4 unit SQ AC-TID Levothyroxine Sodium [Synthroid] 25 mcg PO DAILY@0700 HYDROcodone/APAP 7.5-325MG [[place] 7.5-325] 1 tab PO Q6H PRN #12 tab PRN Reason: Pain Liraglutide [Victoza 3-Sam] 1.8 mg SQ DAILY Magnesium Oxide [Mag-Ox] 400 mg PO DAILY #30 tab Metoprolol Tartrate [Lopressor] 50 mg PO BID #60 tab Albuterol Sulfate [Albuterol Sulfate Hfa] 1 puff INHALATION RT-Q6H PRN PRN Reason: Wheezing Loratadine [Claritin] 5 mg PO DAILY #30 tab Acetaminophen [Tylenol 8 Hour] 650 mg PO Q8H PRN PRN Reason: Pain Calcium Carbonate [Tums] 1,000 mg PO PC-TID Insulin Glargine,Hum.rec.anlog [Lantus Solostar Pen] 20 units SQ HS Insulin Lispro [humaLOG Kwikpen] See Protocol SQ ACHS Lactulose [Cephulac] 20 gm PO DAILY Discontinued amLODIPine [Norvasc] 10 mg PO DAILY #30 tab Ipratropium-Albuterol Nebulize [Duoneb 0.5 mg-3 mg/3 ml Soln] 3 ml INHALATION RT-Q6H PRN PRN Reason: PNEUMONIA Discharge Medication List Aspirin 81 mg PO DAILY #90 chewable 07/25/19 [Rx] Atorvastatin [Lipitor] 80 mg PO DAILY 05/13/20 [History] Liraglutide [Victoza 3-Sam] 1.8 mg SQ DAILY 08/04/23 [History] Apixaban [Eliquis] 5 mg PO BID #60 tab 08/10/23 [Rx] Magnesium Oxide [Mag-Ox] 400 mg PO DAILY #30 tab 08/10/23 [Rx] Metoprolol Tartrate [Lopressor] 50 mg PO BID #60 tab 08/10/23 [Rx] Albuterol Sulfate [Albuterol Sulfate Hfa] 1 puff INHALATION RT-Q6H PRN 08/17/23 [History] Loratadine [Claritin] 5 mg PO DAILY #30 tab 08/31/23 [Rx] Tamsulosin [Flomax] 0.4 mg PO DAILY #30 cap 08/31/23 [Rx] Budesonide/Formoterol Fumarate [Symbicort 80-4.5 Mcg Inhaler] 2 puff INHALATION RT-BID 09/06/23 [History] Ipratropium-Albuterol Nebulize [Duoneb 0.5 mg-3 mg/3 ml Soln] 3 ml INHALATION RT-Q6H 09/06/23 [History] Pantoprazole [Protonix] 40 mg PO AC-BID@0800,1700 09/06/23 [History] Sennosides/Docusate Sodium [Senna-S 8.6-50 mg Tablet] 1 tab PO BID 09/06/23 [History] Furosemide [Lasix] 80 mg PO BID@0900,1600 #60 tab 09/11/23 [Rx] Acetaminophen [Tylenol 8 Hour] 650 mg PO Q8H PRN 10/09/23 [History] Calcium Carbonate [Tums] 1,000 mg PO PC-TID 10/09/23 [History] Cholecalciferol [Vitamin D3 (25 Mcg = 1000 Iu)] 50 mcg PO DAILY 10/09/23 [History] Insulin Glargine,Hum.rec.anlog [Lantus Solostar Pen] 20 units SQ HS 10/09/23 [History] Insulin Lispro [humaLOG Kwikpen] 4 unit SQ AC-TID 10/09/23 [History] Insulin Lispro [humaLOG Kwikpen] See Protocol SQ ACHS 10/09/23 [History] Lactulose [Cephulac] 20 gm PO DAILY 10/09/23 [History] Levothyroxine Sodium [Synthroid] 25 mcg PO DAILY@0700 10/09/23 [History] Ascorbic Acid [Vitamin C] 500 mg PO DAILY tab 10/13/23 [Rx] HYDROcodone/APAP 7.5-325MG [[place] 7.5-325] 1 tab PO Q6H PRN #12 tab 10/13/23 [Rx] Zinc Sulfate [Orazinc] 220 mg PO DAILY cap 10/13/23 [Rx] amLODIPine [Norvasc] 5 mg PO DAILY #1 tab 10/16/23 [Rx] Follow up Appointment(s)/Referral(s): Slava Cortez DO [Primary Care Provider] - 1-2 days [facility], [NON-STAFF] - As Needed Raf Banda MD [STAFF PHYSICIAN] - 1 Week Activity/Diet/Wound Care/Special Instructions: Incentive spirometry Get follow-up orders from oncology
[2023-10-17 13:54] VITALS: BMI 30.4
== END 2023-10-17 15:33 | DRG 177 ==
LOC: EC 08:05 → 4SSUR 12:53 → OBSVTOIN 10-10 08:53 → 2SICU 10-13 21:22 → 4SSUR 10-14 19:38
PROVIDERS: ADMIT Hospitalist; ATTEND Hospitalist
DX: U07.1 COVID-19 (principal); I50.33 Acute on chronic diastolic (congestive) heart failure; J96.21 Acute and chronic respiratory failure with hypoxia; J12.82 Pneumonia due to coronavirus disease 2019; I82.622 Acute embolism and thrombosis of deep veins of left upper extremity; C77.0 Secondary and unspecified malignant neoplasm of lymph nodes of head, face and neck; I13.0 Hypertensive heart and chronic kidney disease with heart failure and stage 1 through stage 4 chronic kidney disease, or unspecified chronic kidney disease; N13.30 Unspecified hydronephrosis; I82.C22 Chronic embolism and thrombosis of left internal jugular vein; I82.612 Acute embolism and thrombosis of superficial veins of left upper extremity; J44.0 Chronic obstructive pulmonary disease with (acute) lower respiratory infection; D63.1 Anemia in chronic kidney disease; E11.22 Type 2 diabetes mellitus with diabetic chronic kidney disease; N18.32 Chronic kidney disease, stage 3b; I48.0 Paroxysmal atrial fibrillation; E11.65 Type 2 diabetes mellitus with hyperglycemia; E03.9 Hypothyroidism, unspecified; D53.9 Nutritional anemia, unspecified; Z79.4 Long term (current) use of insulin; F10.11 Alcohol abuse, in remission; D63.0 Anemia in neoplastic disease; I25.10 Atherosclerotic heart disease of native coronary artery without angina pectoris; K20.90 Esophagitis, unspecified without bleeding; K22.70 Barrett's esophagus without dysplasia; N40.0 Benign prostatic hyperplasia without lower urinary tract symptoms; E78.5 Hyperlipidemia, unspecified; T38.0X5A Adverse effect of glucocorticoids and synthetic analogues, initial encounter; G89.29 Other chronic pain; M54.50 Low back pain, unspecified; G14 Postpolio syndrome; M19.90 Unspecified osteoarthritis, unspecified site; M21.70 Unequal limb length (acquired), unspecified site; Z92.21 Personal history of antineoplastic chemotherapy; Z92.3 Personal history of irradiation; Z87.891 Personal history of nicotine dependence; I25.2 Old myocardial infarction; Z86.03 Personal history of neoplasm of uncertain behavior; Z79.01 Long term (current) use of anticoagulants; Z79.82 Long term (current) use of aspirin; Z79.51 Long term (current) use of inhaled steroids; Z87.798 Personal history of other (corrected) congenital malformations; Z85.51 Personal history of malignant neoplasm of bladder; Z95.5 Presence of coronary angioplasty implant and graft; Z79.890 Hormone replacement therapy; Z79.899 Other long term (current) drug therapy; Z79.85 Long-term (current) use of injectable non-insulin antidiabetic drugs
CPT/HCPCS: 36410; 36415; 71045; 71046; 76937; 80048; 80053; 81001; 82607; 82747; 83036; 83605; 83615; 83880; 84145; 85025; 85027; 85610; 85730; 86140; 87040; 87636; 93005; 94640; 94760; 96360; 96361; 99285

== ENCOUNTER 2023-10-24 10:30 | Emergency (ER) | payer MEDICARE, OTHER ==
--- NOTE | 2023-10-24 10:50 | ED ---
General Adult HPI - General Chief complaint: ENT Stated complaint: Facial Swelling Time Seen by Provider: 10/24/23 10:31 Source: patient, EMS, RN notes reviewed Mode of arrival: EMS Limitations: no limitations - History of Present Illness Initial comments: This is a 73-year-old male who presents to the emergency department for facial swelling. Patient is currently at [facility] for rehab. Patient has high grade metastatic urothelilal carcinoma. He had been experiencing left sided neck and facial swelling and underwent a biopsy of this, demonstrating metastatic non- small cell carcinoma consistent with metastatic high grade urothelial carcinoma. He currently follows with Dr. Banda and has had 3 radiation treatments. He plans to continue therapy when he gets stronger. Patient states that he has had swelling to the left side of his face and neck as well as a rash on his chest for at least 2-3 weeks. Staff at [facility] state that they just noticed this today, prompting them to call EMS. His family also confirms that the swelling and rash have been present for several weeks. Patient has no discomfort associated with this. Denies any shortness of breath. He does also note right sided arm swelling and bilateral LE edema, which has also been present for several weeks. States that he has a hx of CHF. - Related Data Home Medications Medication Instructions Recorded Confirmed Atorvastatin [Lipitor] 80 mg PO DAILY 05/13/20 10/09/23 Liraglutide [Victoza 3-Sam] 1.8 mg SQ DAILY 08/04/23 10/09/23 Albuterol Sulfate [Albuterol 1 puff INHALATION RT-Q6H PRN 08/17/23 10/09/23 Sulfate Hfa] Budesonide/Formoterol Fumarate 2 puff INHALATION RT-BID 09/06/23 10/09/23 [Symbicort 80-4.5 Mcg Inhaler] Ipratropium-Albuterol Nebulize 3 ml INHALATION RT-Q6H 09/06/23 10/09/23 [Duoneb 0.5 mg-3 mg/3 ml Soln] Pantoprazole [Protonix] 40 mg PO AC-BID@0800,1700 09/06/23 10/09/23 Sennosides/Docusate Sodium 1 tab PO BID 09/06/23 10/09/23 [Senna-S 8.6-50 mg Tablet] Acetaminophen [Tylenol 8 Hour] 650 mg PO Q8H PRN 10/09/23 10/09/23 Calcium Carbonate [Tums] 1,000 mg PO PC-TID 10/09/23 10/09/23 Cholecalciferol [Vitamin D3 (25 50 mcg PO DAILY 10/09/23 10/09/23 Mcg = 1000 Iu)] Insulin Glargine,Hum.rec.anlog 20 units SQ HS 10/09/23 10/09/23 [Lantus Solostar Pen] Insulin Lispro [humaLOG Kwikpen] 4 unit SQ AC-TID 10/09/23 10/09/23 Insulin Lispro [humaLOG Kwikpen] See Protocol SQ ACHS 10/09/23 10/09/23 Lactulose [Cephulac] 20 gm PO DAILY 10/09/23 Levothyroxine Sodium [Synthroid] 25 mcg PO DAILY@0700 10/09/23 10/09/23 Previous Rx's Medication Instructions Recorded Aspirin 81 mg PO DAILY #90 chewable 07/25/19 Apixaban [Eliquis] 5 mg PO BID #60 tab 08/10/23 Magnesium Oxide [Mag-Ox] 400 mg PO DAILY #30 tab 08/10/23 Metoprolol Tartrate [Lopressor] 50 mg PO BID #60 tab 08/10/23 Loratadine [Claritin] 5 mg PO DAILY #30 tab 08/31/23 Tamsulosin [Flomax] 0.4 mg PO DAILY #30 cap 08/31/23 Furosemide [Lasix] 80 mg PO BID@0900,1600 #60 tab 09/11/23 Ascorbic Acid [Vitamin C] 500 mg PO DAILY tab 10/13/23 HYDROcodone/APAP 7.5-325MG [[place] 1 tab PO Q6H PRN #12 tab 10/13/23 7.5-325] Zinc Sulfate [Orazinc] 220 mg PO DAILY cap 10/13/23 amLODIPine [Norvasc] 5 mg PO DAILY #1 tab 10/16/23 Allergies Allergy/AdvReac Type Severity Reaction Status Date / Time No Known Allergies Allergy Verified 10/24/23 10:39 Review of Systems ROS Statement: Those systems with pertinent positive or pertinent negative responses have been documented in the HPI. ROS Other: All systems not noted in ROS Statement are negative. Past Medical History Past Medical History: Coronary Artery Disease (CAD), Cancer, Diabetes Mellitus, Hyperlipidemia, Hypertension, Myocardial Infarction (NC), Osteoarthritis (OA) Additional Past Medical History / Comment(s): Bladder cancer stage with treatment, in remission since 2020. IDDM type II, post polio syndrome,leg length discrepancy, bronchitis, chronic low back pain. Last Myocardial Infarction Date:: 07/23/19 History of Any Multi-Drug Resistant Organisms: None Reported Past Surgical History: Heart Catheterization With Stent, Orthopedic Surgery Additional Past Surgical History / Comment(s): Cystoscopy, TURBT x2, closure of patent urachus bladder tumor as , R leg surgery d/t polio-lengthening, cardiac stents 2018; Right hip surgery 11/03/2022 Past Anesthesia/Blood Transfusion Reactions: No Reported Reaction Date of Last Stent Placement:: 07/23/19 Past Psychological History: No Psychological Hx Reported Additional Psychological History / Comment(s): Pt resides with his spouse. He is independent. He just started ambulating with a cane or walker Smoking Status: Former smoker Past Alcohol Use History: None Reported Additional Past Alcohol Use History / Comment(s): Pt started smoking in 1968 and quit 07/21/19. Prior ETOH abuse-pt states he hasnt had alcohol in months Past Drug Use History: None Reported - Past Family History Father History Unknown: Yes Mother Additional Family Medical History / Comment(s): Mother of in a MVA when pt was 15 yrs old. Brother(s) Additional Family Medical History / Comment(s): Pt has one brother who of a bowel problem and another brother that of a ruptured aneurysm. General Exam Limitations: no limitations General appearance: alert, in no apparent distress Head exam: Present: other (Left sided face and neck swelling) Respiratory exam: Present: normal lung sounds bilaterally. Absent: respiratory distress, wheezes, rales, rhonchi, stridor Cardiovascular Exam: Present: regular rate, normal rhythm, normal heart sounds. Absent: systolic murmur, diastolic murmur, rubs, gallop, clicks Extremities exam: Present: other (Pitting edema to the bilateral LEs and right upper extremity.) Neurological exam: Present: alert, oriented X3, CN II-XII intact Psychiatric exam: Present: normal affect, normal mood Skin exam: Present: other (Tender erythematous rash to the neck and chest) Course Vital Signs 10/24/23 10/24/23 10/24/23 10:34 12:08 13:30 Temperature 99.7 F H 98.7 F 99.0 F Pulse Rate 77 84 Respiratory 17 18 Rate Blood Pressure 156/70 137/62 O2 Sat by Pulse 96 95 Oximetry Medical Decision Making - Medical Decision Making This is a 73 year old male who presents to the emergency department for facial swelling. Was pt. sent in by a medical professional or institution? @ -[facility] Did you speak to anyone other than the patient for history? @ -His family confirmed that the facial swelling and rash were not new and had been there for several weeks. Did you review nursing and triage notes? @ -Yes, and I agree, it is accurate with regards to the patient's symptoms. Were old charts reviewed? @ -No Differential Diagnosis? @ -Differential Facial Swelling: Lymphadenopathy, allergic reaction, malignancy, this is not meant to be an all- inclusive list. EKG interpreted by me (3pts min.)? @ -Not obtained X-rays interpreted by me (1pt min.)? @ -Not obtained CT interpreted by me (1pt min.)? @ -Not obtained U/S interpreted by me (1pt. min.)? @ -Not obtained What testing was considered but not performed? (CT, X-rays, U/S, labs)? Why? @ -None What meds were considered but not given? Why? @ -None Did you discuss the management of the patient with other professionals? @ -No Did you reconcile home meds? @ -No Was smoking cessation discussed for >3mins.? @ -No Was critical care preformed (if so, how long)? @ -No Were there social determinants of health that impacted care today? How? (Homelessness, low income, unemployed, alcoholism, drug addiction, transportation, low edu. Level, literacy, decrease access to med. care, half-way, rehab)? @ -No Was there de-escalation of care discussed even if they declined? (Discuss DNR or withdrawal of care, Hospice)? @ -No What co-morbidities impacted this encounter? (DM, HTN, Smoking, COPD, CAD, Cancer, CVA, Hep., AIDS, mental health diagnosis, sleep apnea, morbid obesity)? @ -Urothelial carcinoma Was patient admitted / discharged? @ -Discharged. Lab work obtained and found to be unremarkable. Slightly decreased hemoglobin and renal function are stable when compared with prior values. BNP elevated at 1890, which is improved when compared with the BNP on 10/10/23 which was 2160. Patient is already on Lasix 80mg BID. The facial swelling and rash appear to be chronic per the patient and family members. He is exhibiting no distress associated with this and has known metastasis causing the swelling. [facility] and will follow up with his PCP and hem/onc. Undiagnosed new problem with uncertain prognosis? @ -None Drug Therapy requiring intensive monitoring for toxicity (Heparin, Nitro, I nsulin, Cardizem)? @ -None Were any procedures done? @ -None Diagnosis/symptom? @ -Metastatic urothelial carcinoma, CHF Acute, or Chronic, or Acute on Chronic? @ -Chronic Uncomplicated (without systemic symptoms) or Complicated (systemic symptoms)? @ -Uncomplicated Side effects of treatment? @ -None Exacerbation, Progression, or Severe Exacerbation] @ -Stable Poses a threat to life or bodily function? @ -Both of these conditions do pose a threat to his life, and the risk will very based on how they progress. Return precautions reviewed in depth, the patient is instructed to return to the emergency department with any new, worsening, or concerning symptoms. Patient verbalized understanding. This case was discussed in detail with the attending ED physician, Dr. Argueta. Presentation, findings, and treatment plan discussed in detail as well. - Lab Data Result diagrams: 10/24/23 10:41 10/24/23 10:41 Lab Results 10/24/23 10/24/23 10/24/23 Range/Units 10:41 10:41 10:41 WBC 10.6 (3.8-10.6) k/uL RBC 2.80 L (4.30-5.90) m/uL Hgb 9.5 L (13.0-17.5) gm/dL Hct 28.8 L (39.0-53.0) % MCV 102.8 H (80.0-100.0) fL MCH 34.1 (25.0-35.0) pg MCHC 33.1 (31.0-37.0) g/dL RDW 14.8 (11.5-15.5) % Plt Count 222 (150-450) k/uL MPV 9.9 Neutrophils % 85 % Lymphocytes % 6 % Monocytes % 6 % Eosinophils % 2 % Basophils % 0 % Neutrophils # 9.0 H (1.3-7.7) k/uL Lymphocytes # 0.6 L (1.0-4.8) k/uL Monocytes # 0.7 (0-1.0) k/uL Eosinophils # 0.2 (0-0.7) k/uL Basophils # 0.0 (0-0.2) k/uL Macrocytosis Slight Sodium 133 L (137-145) mmol/L Potassium 4.9 (3.5-5.1) mmol/L Chloride 99 (98-107) mmol/L Carbon Dioxide 27 (22-30) mmol/L Anion Gap 7 mmol/L BUN 38 H (9-20) mg/dL Creatinine 1.41 H (0.66-1.25) mg/dL Est GFR (CKD-EPI)AfAm 58 (>60 ml/min/1.73 sqM) Est GFR (CKD-EPI)NonAf 50 (>60 ml/min/1.73 sqM) Glucose 181 H (74-99) mg/dL Plasma Lactic Acid Bryan 1.6 (0.7-2.0) mmol/L Calcium 7.8 L (8.4-10.2) mg/dL Total Bilirubin 0.8 (0.2-1.3) mg/dL AST 37 (17-59) U/L ALT 19 (4-49) U/L Alkaline Phosphatase 77 (38-126) U/L NT-Pro-B Natriuret Pep 1890 pg/mL Total Protein 5.8 L (6.3-8.2) g/dL Albumin 2.8 L (3.5-5.0) g/dL Disposition Clinical Impression: Metastatic urothelial carcinoma, CHF (congestive heart failure) Disposition: HOME SELF-CARE Instructions (If sedation given, give patient instructions): Heart Failure (DC), Leg Edema (ED), Low-Sodium Diet (ED) Additional Instructions: Return to the emergency department with any new, worsening, or concerning symptoms. Keep the skin on your extremities moisturized and try to massage them to reduce the weeping. Continue to keep them wrapped or use an Jimmy bandage and keep the arm elevated. Reduce your sodium intake as well. Follow up with your primary care provider in 1-2 days. Is patient prescribed a controlled substance at d/c from ED?: No Referrals: Sukhjinder Rubio MD [Primary Care Provider] - 1-2 days
[2023-10-24 12:00] LABS: Basophils % (A) 0 %; Eosinophils # (A) 0.2 k/uL (0-0.7); Eosinophils % (A) 2 %; HCT 28.8 % (39.0-53.0); HGB 9.5 gm/dL (13.0-17.5); Lymphocytes # (A) 0.6 k/uL (1.0-4.8); Lymphocytes % (A) 6 %; MCH 34.1 pg (25.0-35.0); MCHC 33.1 g/dL (31.0-37.0); MCV 102.8 fL (80.0-100.0); Macrocytosis Slight; Mean Platelet Volume 9.9; Monocytes # (A) 0.7 k/uL (0-1.0); Monocytes % (A) 6 %; Neutrophils % (A) 85 %; Platelet Count 222 k/uL (150-450); RDW 14.8 % (11.5-15.5); WBC 10.6 k/uL (3.8-10.6)
[2023-10-24 12:12] LABS: ALT 19 U/L (4-49); African American GFR (CKD) 58 (>60 ml/min/1.73 sqM); Albumin 2.8 g/dL (3.5-5.0); Anion Gap 7 mmol/L; Blood Urea Nitrogen 38 mg/dL (9-20); Carbon Dioxide 27 mmol/L (22-30); Chloride 99 mmol/L (98-107); Glucose 181 mg/dL (74-99); Non-African American GFR(CKD) 50 (>60 ml/min/1.73 sqM); Sodium 133 mmol/L (137-145); Total Bilirubin 0.8 mg/dL (0.2-1.3)
[2023-10-24 12:19] LABS: AST 37 U/L (17-59); Alkaline Phosphatase 77 U/L (38-126); Calcium 7.8 mg/dL (8.4-10.2); Potassium 4.9 mmol/L (3.5-5.1); Total Protein 5.8 g/dL (6.3-8.2)
[2023-10-24 12:20] LABS: NT-Pro-B-Type Natriuretic Pept 1890 pg/mL
[2023-10-24] MEDS ORDERED: FUROSEMIDE 10 MG/ML 10 ML VIAL IV STA (13:00)
[2023-10-24 13:42] VITALS: BP 137/62; PULSE 84; RESP 18; TEMP 99
== END 2023-10-24 14:08 | disposition home or self-care (01) ==
LOC: EC 10:30
DX: C79.11 Secondary malignant neoplasm of bladder (principal); I11.0 Hypertensive heart disease with heart failure; I50.9 Heart failure, unspecified; I25.10 Atherosclerotic heart disease of native coronary artery without angina pectoris; E78.5 Hyperlipidemia, unspecified; E11.9 Type 2 diabetes mellitus without complications; I25.2 Old myocardial infarction; M19.90 Unspecified osteoarthritis, unspecified site; Z87.891 Personal history of nicotine dependence; Z79.4 Long term (current) use of insulin; Z79.899 Other long term (current) drug therapy; Z79.51 Long term (current) use of inhaled steroids
CPT/HCPCS: 36415; 83880; 80053; 83605; 85025; 99284; 96374; J1940

== ENCOUNTER → 2023-11-08 | Outpatient (CLI) | payer MEDICARE ==
--- NOTE | 2023-11-11 12:49 | PE ---
EXAMINATION TYPE: PET CT fusion skull to thigh DATE OF EXAM: 11/08/2023 COMPARISON: CT brain and cervical spine 09/12/2023, CT soft tissue neck 08/05/2023. Prior PET/CT: No prior PET/CT at this location. HISTORY: Bladder cancer TECHNIQUE: Following the intravenous administration of 13.5 mCi of F-18 FDG, whole body images are p erformed from the skull base to the midthigh. Images are reviewed on the computer in the coronal, ax ial, and sagittal planes. Reconstructed rotating images are created on independent workstation and r eviewed on the computer. A localization and attenuation correction CT is performed in conjunction w ith the PET scan. DLP: 1038.86 mGycm SCAN: Subsequent Blood glucose: 152 mg/dL Average Mediastinum SUV: 1.78 Average Liver SUV: 2.6 FINDINGS: NECK: There is increased uptake within the soft tissue mass in the left neck near the angle of the j aw and parotid gland. Example image 30, SUV 4.7. The more anterior lateral uptake has an SUV of 4.26. There is some focal uptake on the right posterior to the parotid gland, image 34, SUV 2.64. Subcutan eous hyperintensity may be along the posterior left neck example SUV 4.1. THORAX: No suspicious intrathoracic abnormal uptake is identified. There is soft tissue uptake with irregular margin in the superior left shoulder, example image 44, 64 .81. This appears to extend to the posterior medial paraspinal region on the left medial to the scapu la, example image 59, SUV 5.04. Soft tissue uptake is noted along the anterior sternoclavicular notch, image 65, SUV 4.99 along the s kin surface in the slightly more deeper left uptake of 6.57. Uptake is within the bilateral axillary regions. On the right this has an SUV of 4.27, image 94, imag e 99, SUV 3.42 and on the left this measures 5.07 image 92 and the more anterior small lymph node alicja sures 3.79 SUV. ABDOMEN: No abnormal uptake. There does appear to be normal radiotracer within the renal collecting s ystems. No definite suspicious adenopathy identified PELVIS: Due to technical factors or is abnormal signal through the pelvis. However, this area is repe ated for improved imaging. No definite suspicious uptake is identified. There is some uptake along th e posterior margin of the urinary bladder potentially could be related to the patient's known bladder cancer, example image 52 SUV left of midline 2.92 with a more medial uptake measuring 2.68. OSSEOUS STRUCTURES: No definite osseous uptake is identified. Postsurgical changes are noted at the r ight hip. LOCALIZATION CT: There is a moderate left pleural effusion present. COMPARISON: Abnormal density within the soft tissues on prior exams appear to correlate with the abno rmal CT findings. IMPRESSION: 1. Abnormal uptake within the soft tissues including the left neck, left medial shoulder, and proxima l left paraspinal region and upper thorax. 2. Some technical limitations in evaluating urinary bladder and pelvis. There is a suspicion of some abnormal uptake within the posterior wall urinary bladder.
== END | disposition home or self-care (01) ==
LOC: RADPETMAIN 14:20
PROVIDERS: ATTEND Internal Medicine Hematology & Oncology
DX: C67.8 Malignant neoplasm of overlapping sites of bladder (principal)
CPT/HCPCS: 78815; A9552

== ENCOUNTER 2023-11-27 11:05 | Inpatient (IN) | payer MEDICARE ==
--- NOTE | 2023-11-27 12:03 | ED ---
Weakness HPI - General Chief complaint: Weakness Stated complaint: Weakness Time Seen by Provider: 11/27/23 11:16 Source: patient, EMS, RN notes reviewed Mode of arrival: EMS Limitations: altered mental status, physical limitation - History of Present Illness Initial comments: This is a 73-year-old male who presents to the emergency department for weakness and failure to thrive. Patient has stage IV metastatic bladder cancer, and was previously being treated with radiation treatment. Currently follows with Dr. Banda. His states that they were hoping to proceed with treatment with immunotherapy, however they were having difficulty finding an access site, which has delayed treatment. His states that he is becoming increasingly weak an d confused. He has a wound on his chest from radiation treatment that he is unable to stop picking at. He also has left-sided facial swelling and right lower arm swelling. The left sided facial swelling has been present for several months. Also reports a blood clot in the left arm. Additionally, patient reports increasing shortness of breath with mild chest discomfort. He does have oxygen available at home to be used if needed, however he had not been needing it until today. His states that he has not been able to eat in 3-4 days. States that he is unable to swallow anything. He used to take apple sauce, however that is not the case anymore. MD Complaint: generalized weakness - Related Data Home Medications Medication Instructions Recorded Confirmed Atorvastatin [Lipitor] 80 mg PO DAILY 05/13/20 11/27/23 Liraglutide [Victoza 3-Sam] 1.8 mg SQ DAILY 08/04/23 11/27/23 Albuterol Sulfate [Albuterol 2 puff INHALATION RT-Q6H PRN 08/17/23 11/27/23 Sulfate Hfa] Budesonide/Formoterol Fumarate 2 puff INHALATION RT-BID 09/06/23 11/27/23 [Symbicort 80-4.5 Mcg Inhaler] Ipratropium-Albuterol Nebulize 3 ml INHALATION RT-QID 09/06/23 11/27/23 [Duoneb 0.5 mg-3 mg/3 ml Soln] Pantoprazole [Protonix] 40 mg PO AC-BID@0800,1700 09/06/23 11/27/23 Acetaminophen [Tylenol 8 Hour] 650 mg PO Q8H PRN 10/09/23 11/27/23 Calcium Carbonate [Tums] 500 mg PO PC-TID 10/09/23 11/27/23 Cholecalciferol [Vitamin D3 (25 50 mcg PO DAILY 10/09/23 11/27/23 Mcg = 1000 Iu)] Lactulose [Cephulac] 20 gm PO DAILY 10/09/23 11/27/23 HYDROcodone/APAP 7.5-325MG [[place] 1 tab PO Q4H PRN 11/27/23 11/27/23 7.5-325] Levothyroxine Sodium [Synthroid] 50 mcg PO DAILY 11/27/23 11/27/23 Morphine Sulfate [Barb] 30 mg PO Q12H 11/27/23 11/27/23 Ondansetron [Zofran] 4 mg PO Q4H PRN 11/27/23 11/27/23 SILVER sulfADIAZINE CREAM 1 applic TOPICAL DAILY 11/27/23 11/27/23 [Silvadene Cream] Sennosides [Senokot] 8.6 mg PO BID 11/27/23 11/27/23 Previous Rx's Medication Instructions Recorded Aspirin 81 mg PO DAILY #90 chewable 07/25/19 Apixaban [Eliquis] 5 mg PO BID #60 tab 08/10/23 Magnesium Oxide [Mag-Ox] 400 mg PO DAILY #30 tab 08/10/23 Metoprolol Tartrate [Lopressor] 50 mg PO BID #60 tab 08/10/23 Loratadine [Claritin] 5 mg PO DAILY #30 tab 08/31/23 Tamsulosin [Flomax] 0.4 mg PO DAILY #30 cap 08/31/23 Furosemide [Lasix] 80 mg PO BID@0900,1600 #60 tab 09/11/23 Ascorbic Acid [Vitamin C] 500 mg PO DAILY tab 10/13/23 Zinc Sulfate [Orazinc] 220 mg PO DAILY cap 10/13/23 amLODIPine [Norvasc] 5 mg PO DAILY #1 tab 10/16/23 Allergies Allergy/AdvReac Type Severity Reaction Status Date / Time No Known Allergies Allergy Verified 11/27/23 15:25 Review of Systems ROS Statement: Those systems with pertinent positive or pertinent negative responses have been documented in the HPI. ROS Other: All systems not noted in ROS Statement are negative. Past Medical History Past Medical History: Coronary Artery Disease (CAD), Cancer, Diabetes Mellitus, Hyperlipidemia, Hypertension, Myocardial Infarction (NH), Osteoarthritis (OA) Additional Past Medical History / Comment(s): Bladder cancer stage with treatment, in remission since 2020. IDDM type II, post polio syndrome,leg length discrepancy, bronchitis, chronic low back pain. Last Myocardial Infarction Date:: 07/23/19 History of Any Multi-Drug Resistant Organisms: None Reported Past Surgical History: Heart Catheterization With Stent, Orthopedic Surgery Additional Past Surgical History / Comment(s): Cystoscopy, TURBT x2, closure of patent urachus bladder tumor as infant, R leg surgery d/t polio-lengthening, cardiac stents 2018; Right hip surgery 11/03/2022 Past Anesthesia/Blood Transfusion Reactions: No Reported Reaction Date of Last Stent Placement:: 07/23/19 Past Psychological History: No Psychological Hx Reported Smoking Status: Former smoker Past Alcohol Use History: None Reported Past Drug Use History: None Reported - Past Family History Father History Unknown: Yes Mother Additional Family Medical History / Comment(s): Mother of in a MVA when pt was 15 yrs old. Brother(s) Additional Family Medical History / Comment(s): Pt has one brother who of a bowel problem and another brother that of a ruptured aneurysm. General Exam Limitations: altered mental status, physical limitation General appearance: alert, in no apparent distress Head exam: Present: other (Left sided facial edema) Respiratory exam: Present: decreased breath sounds, prolonged expiratory Cardiovascular Exam: Present: regular rate, normal rhythm, normal heart sounds. Absent: systolic murmur, diastolic murmur, rubs, gallop, clicks Neurological exam: Present: alert Psychiatric exam: Present: normal affect, normal mood Skin exam: Present: other (Large open wound on the patient's chest with surrounding erythema and induration) Course Vital Signs 11/27/23 11/27/23 11/27/23 11:10 12:00 13:00 Temperature 98.1 F Pulse Rate 98 102 H 92 Respiratory 20 20 20 Rate Blood Pressure 128/59 99/55 91/50 O2 Sat by Pulse 98 96 97 Oximetry 11/27/23 11/27/23 11/27/23 14:30 15:27 16:23 Temperature 98.9 F Pulse Rate 105 H 105 H Respiratory 20 16 Rate Blood Pressure 104/52 134/94 O2 Sat by Pulse 95 95 97 Oximetry Medical Decision Making - Medical Decision Making This is a 73-year-old male who presents to the emergency department for weakness. Was pt. sent in by a medical professional or institution? @ -No Did you speak to anyone other than the patient for history? @ -EMS and family provided the majority of the history. Did you review nursing and triage notes? @ -Yes, and I agree, it is accurate with regards to the patient's symptoms. Were old charts reviewed? @ -No Differential Diagnosis? @ -Differential Weakness: Hypoglycemia, shock, sepsis, hyponatremia, anemia, infection, NH, ETOH, adverse medicine reaction, overdose, stroke, this is not meant to be an all-inclusive list. EKG interpreted by me (3pts min.)? @ -EKG interpreted by me demonstrating the following: Sinus tachycardia. Ventricular rate 103 beats per minute, ME interval 162 ms, QRS duration 88 ms, QTC 389 ms. X-rays interpreted by me (1pt min.)? @ -Chest x-ray obtained. My interpretation identifies a left sided pleural effusion. X-ray of the right hip obtained. My interpretation identifies no acute fractures. CT interpreted by me (1pt min.)? @ -Not obtained U/S interpreted by me (1pt. min.)? @ -Not obtained What testing was considered but not performed? (CT, X-rays, U/S, labs)? Why? @ -None What meds were considered but not given? Why? @ -None Did you discuss the management of the patient with other professionals? @ -Yes, Dr. Vergara, who accepts the patient for admission. Did you reconcile home meds? @ -No Was smoking cessation discussed for >3mins.? @ -No Was critical care preformed (if so, how long)? @ -No Were there social determinants of health that impacted care today? How? (Homelessness, low income, unemployed, alcoholism, drug addiction, transportation, low edu. Level, literacy, decrease access to med. care, custodial, rehab)? @ -No Was there de-escalation of care discussed even if they declined? (Discuss DNR or withdrawal of care, Hospice)? @ -Discussed advanced directive with the patient and his in depth. His states that he expressed wishes to remain a full code and they are not ready for him to be a DNR. I also discussed the possibility of hospice coming to speak with them about their options, and they also declined this at this time. They wish to continue perusing treatment. What co-morbidities impacted this encounter? (DM, HTN, Smoking, COPD, CAD, Cancer, CVA, Hep., AIDS, mental health diagnosis, sleep apnea, morbid obesity)? @ -Metastatic bladder cancer, DM, CAD, HTN, HLD Was patient admitted / discharged? @ -Admitted. Lab work obtained demonstrating poor renal function when compared with prior, with a BUN of 107, creatinine of 3.47, and eGFR of 17. Lactic acid elevated at 2.7 and BNP also elevated at 5590. COVID-19 is positive, however he was positive in September and it is possible that this is a residual positive test. Chest x-ray reveals a left sided pleural effusion that is increasing in size. Patient's states that the patient kept saying that his right hip was broken again and requested an x-ray. This revealed that the hardware was in place. Discussed with the patient and his at length the patient's advanced directive. States that he had previously expressed that he wished to remain a full code, and she would like to honor his wishes at this time. I also discussed the possibility of placing a consult for hospice to discuss his care options, however patient and his are not ready for that at this time. They wish to continue trying treatment, particularly immunotherapy. Consult was placed for hematology oncology to evaluate the patient. Speech therapy was also consulted for a swallow evaluation, as the patient's states that he has not been able to eat for the last 3-4 days due to difficulty swallowing. Undiagnosed new problem with uncertain prognosis? @ -None Drug Therapy requiring intensive monitoring for toxicity (Heparin, Nitro, In sulin, Cardizem)? @ -None Were any procedures done? @ -None Diagnosis/symptom? @ -Weakness, dysphagia Acute, or Chronic, or Acute on Chronic? @ -Acute Uncomplicated (without systemic symptoms) or Complicated (systemic symptoms)? @ -Complicated Side effects of treatment? @ -None Exacerbation, Progression, or Severe Exacerbation] @ -Not applicable Poses a threat to life or bodily function? @ -Yes Diagnosis/symptom? @ -CHF exacerbation, EDITH Acute, or Chronic, or Acute on Chronic? @ -Acute on chronic Uncomplicated (without systemic symptoms) or Complicated (systemic symptoms)? @ -Complicated Side effects of treatment? @ -None Exacerbation, Progression, or Severe Exacerbation] @ -Severe exacerbation Poses a threat to life or bodily function? @ -Yes This case was discussed in detail with the attending ED physician, Dr. Argueta. Presentation, findings, and treatment plan discussed in detail as well. - Lab Data Result diagrams: 11/29/23 11:17 11/29/23 11:17 Lab Results 11/27/23 11/27/23 11/27/23 Range/Units 11:56 11:56 11:56 WBC 8.5 (3.8-10.6) k/uL RBC 2.88 L (4.30-5.90) m/uL Hgb 9.8 L (13.0-17.5) gm/dL Hct 30.2 L (39.0-53.0) % MCV 104.7 H (80.0-100.0) fL MCH 33.9 (25.0-35.0) pg MCHC 32.3 (31.0-37.0) g/dL RDW 16.0 H (11.5-15.5) % Plt Count 309 (150-450) k/uL MPV 10.5 Neutrophils % 89 % Lymphocytes % 5 % Monocytes % 5 % Eosinophils % 0 % Basophils % 0 % Neutrophils # 7.5 (1.3-7.7) k/uL Lymphocytes # 0.4 L (1.0-4.8) k/uL Monocytes # 0.4 (0-1.0) k/uL Eosinophils # 0.0 (0-0.7) k/uL Basophils # 0.0 (0-0.2) k/uL Hypochromasia Moderate Anisocytosis Slight Macrocytosis Moderate PT 13.3 H (10.0-12.5) sec INR 1.3 H (<1.2) APTT 30.3 H (22.0-30.0) sec Sodium 143 (137-145) mmol/L Potassium 4.5 (3.5-5.1) mmol/L Chloride 108 H (98-107) mmol/L Carbon Dioxide 17 L (22-30) mmol/L Anion Gap 18 mmol/L BUN 107 H* (9-20) mg/dL Creatinine 3.47 H (0.66-1.25) mg/dL Est GFR (CKD-EPI)AfAm 19 (>60 ml/min/1.73 sqM) Est GFR (CKD-EPI)NonAf 17 (>60 ml/min/1.73 sqM) Glucose 234 H (74-99) mg/dL Lactic Ac Sepsis Rflx Plasma Lactic Acid Bryan (0.7-2.0) mmol/L Calcium 7.9 L (8.4-10.2) mg/dL Phosphorus 5.7 H (2.5-4.5) mg/dL Magnesium 1.9 (1.6-2.3) mg/dL Total Bilirubin 0.7 (0.2-1.3) mg/dL AST 49 (17-59) U/L ALT 18 (4-49) U/L Alkaline Phosphatase 108 (38-126) U/L Troponin I (0.000-0.034) ng/mL NT-Pro-B Natriuret Pep 5590 pg/mL Total Protein 5.8 L (6.3-8.2) g/dL Albumin 3.0 L (3.5-5.0) g/dL Influenza Type A (PCR) (Not Detectd) Influenza Type B (PCR) (Not Detectd) RSV (PCR) (Not Detectd) SARS-CoV-2 (PCR) (Not Detectd) 11/27/23 11/27/23 11/27/23 Range/Units 11:56 11:56 11:56 WBC (3.8-10.6) k/uL RBC (4.30-5.90) m/uL Hgb (13.0-17.5) gm/dL Hct (39.0-53.0) % MCV (80.0-100.0) fL MCH (25.0-35.0) pg MCHC (31.0-37.0) g/dL RDW (11.5-15.5) % Plt Count (150-450) k/uL MPV Neutrophils % % Lymphocytes % % Monocytes % % Eosinophils % % Basophils % % Neutrophils # (1.3-7.7) k/uL Lymphocytes # (1.0-4.8) k/uL Monocytes # (0-1.0) k/uL Eosinophils # (0-0.7) k/uL Basophils # (0-0.2) k/uL Hypochromasia Anisocytosis Macrocytosis PT (10.0-12.5) sec INR (<1.2) APTT (22.0-30.0) sec Sodium (137-145) mmol/L Potassium (3.5-5.1) mmol/L Chloride (98-107) mmol/L Carbon Dioxide (22-30) mmol/L Anion Gap mmol/L BUN (9-20) mg/dL Creatinine (0.66-1.25) mg/dL Est GFR (CKD-EPI)AfAm (>60 ml/min/1.73 sqM) Est GFR (CKD-EPI)NonAf (>60 ml/min/1.73 sqM) Glucose (74-99) mg/dL Lactic Ac Sepsis Rflx Plasma Lactic Acid Bryan 2.7 H* (0.7-2.0) mmol/L Calcium (8.4-10.2) mg/dL Phosphorus (2.5-4.5) mg/dL Magnesium (1.6-2.3) mg/dL Total Bilirubin (0.2-1.3) mg/dL AST (17-59) U/L ALT (4-49) U/L Alkaline Phosphatase (38-126) U/L Troponin I 0.053 H* (0.000-0.034) ng/mL NT-Pro-B Natriuret Pep pg/mL Total Protein (6.3-8.2) g/dL Albumin (3.5-5.0) g/dL Influenza Type A (PCR) Not Detected (Not Detectd) Influenza Type B (PCR) Not Detected (Not Detectd) RSV (PCR) Not Detected (Not Detectd) SARS-CoV-2 (PCR) Detected A (Not Detectd) 11/27/23 Range/Units 12:47 WBC (3.8-10.6) k/uL RBC (4.30-5.90) m/uL Hgb (13.0-17.5) gm/dL Hct (39.0-53.0) % MCV (80.0-100.0) fL MCH (25.0-35.0) pg MCHC (31.0-37.0) g/dL RDW (11.5-15.5) % Plt Count (150-450) k/uL MPV Neutrophils % % Lymphocytes % % Monocytes % % Eosinophils % % Basophils % % Neutrophils # (1.3-7.7) k/uL Lymphocytes # (1.0-4.8) k/uL Monocytes # (0-1.0) k/uL Eosinophils # (0-0.7) k/uL Basophils # (0-0.2) k/uL Hypochromasia Anisocytosis Macrocytosis PT (10.0-12.5) sec INR (<1.2) APTT (22.0-30.0) sec Sodium (137-145) mmol/L Potassium (3.5-5.1) mmol/L Chloride (98-107) mmol/L Carbon Dioxide (22-30) mmol/L Anion Gap mmol/L BUN (9-20) mg/dL Creatinine (0.66-1.25) mg/dL Est GFR (CKD-EPI)AfAm (>60 ml/min/1.73 sqM) Est GFR (CKD-EPI)NonAf (>60 ml/min/1.73 sqM) Glucose (74-99) mg/dL Lactic Ac Sepsis Rflx Y Plasma Lactic Acid Bryan (0.7-2.0) mmol/L Calcium (8.4-10.2) mg/dL Phosphorus (2.5-4.5) mg/dL Magnesium (1.6-2.3) mg/dL Total Bilirubin (0.2-1.3) mg/dL AST (17-59) U/L ALT (4-49) U/L Alkaline Phosphatase (38-126) U/L Troponin I (0.000-0.034) ng/mL NT-Pro-B Natriuret Pep pg/mL Total Protein (6.3-8.2) g/dL Albumin (3.5-5.0) g/dL Influenza Type A (PCR) (Not Detectd) Influenza Type B (PCR) (Not Detectd) RSV (PCR) (Not Detectd) SARS-CoV-2 (PCR) (Not Detectd) - Radiology Data Radiology results: report reviewed, image reviewed Disposition Clinical Impression: CHF exacerbation, Weakness, Renal failure, Malignant neoplasm metastatic from bladder Disposition: ADMITTED IP TO THIS [facility] Time of Disposition: 14:36
[2023-11-27 12:05] LABS: Anisocytosis Slight; Basophils % (A) 0 %; Eosinophils % (A) 0 %; HCT 30.2 % (39.0-53.0); HGB 9.8 gm/dL (13.0-17.5); Hypochromasia Moderate; Lymphocytes # (A) 0.4 k/uL (1.0-4.8); Lymphocytes % (A) 5 %; MCH 33.9 pg (25.0-35.0); MCHC 32.3 g/dL (31.0-37.0); MCV 104.7 fL (80.0-100.0); Macrocytosis Moderate; Mean Platelet Volume 10.5; Monocytes # (A) 0.4 k/uL (0-1.0); Monocytes % (A) 5 %; Neutrophils # (A) 7.5 k/uL (1.3-7.7); Neutrophils % (A) 89 %; Platelet Count 309 k/uL (150-450); RBC 2.88 m/uL (4.30-5.90); WBC 8.5 k/uL (3.8-10.6)
[2023-11-27 12:19] LABS: INR 1.3 (<1.2); Partial Thromboplastin Time 30.3 sec (22.0-30.0); Prothrombin Time 13.3 sec (10.0-12.5)
[2023-11-27 12:28] LABS: ALT 18 U/L (4-49); AST 49 U/L (17-59); African American GFR (CKD) 19 (>60 ml/min/1.73 sqM); Alkaline Phosphatase 108 U/L (38-126); Anion Gap 18 mmol/L; Calcium 7.9 mg/dL (8.4-10.2); Carbon Dioxide 17 mmol/L (22-30); Chloride 108 mmol/L (98-107); Glucose 234 mg/dL (74-99); Magnesium 1.9 mg/dL (1.6-2.3); Non-African American GFR(CKD) 17 (>60 ml/min/1.73 sqM); Phosphorus 5.7 mg/dL (2.5-4.5); Sodium 143 mmol/L (137-145); Total Bilirubin 0.7 mg/dL (0.2-1.3); Total Protein 5.8 g/dL (6.3-8.2)
[2023-11-27 12:34] LABS: NT-Pro-B-Type Natriuretic Pept 5590 pg/mL
[2023-11-27 12:47] LABS: Blood Urea Nitrogen 107 mg/dL (9-20)
[2023-11-27 12:52] LABS: Potassium 4.5 mmol/L (3.5-5.1)
--- NOTE | 2023-11-27 13:10 | XR ---
EXAMINATION TYPE: XR chest 2V DATE OF EXAM: 11/27/2023 12:56 PM CLINICAL INDICATION:Male, 73 years old with history of Weakness; [facility] COMPARISON: Chest radiographs from 10/14/2023. TECHNIQUE: XR chest 2V Frontal and lateral views of the chest. FINDINGS: Lungs/Pleura: Increasing moderate left pleural effusion. There is no evidence of right pleural effusi on, focal consolidation, or pneumothorax. Pulmonary vascularity: Unremarkable. Heart/mediastinum: Cardiomediastinal silhouette is partially obscured due to overlying and adjacent o pacities. Musculoskeletal: No acute osseous pathology. IMPRESSION: Moderate left pleural effusion which has increased from prior.
--- NOTE | 2023-11-27 14:09 | XR ---
EXAMINATION TYPE: XR Hip Complete RT DATE OF EXAM: 11/27/2023 2:00 PM CLINICAL INDICATION:Male, 73 years old with history of Pain; COMPARISON: None. TECHNIQUE: XR Hip Complete RT; hip was examined in the frontal and lateral projections and a AP pelvi s. FINDINGS/IMPRESSION: Right hip fixation hardware appears intact. No evidence for acute fracture. Incomplete osseous fusion suggested of the anterior aspect of the right hip fixation. There is severe atherosclerosis of the a rteriovascular.
[2023-11-27] MEDS ORDERED: ACETAMINOPHEN TAB 325 MG TAB PO PRN ×2 (14:33→17:28)
[2023-11-27] MEDS ORDERED: NALOXONE 0.4 MG/ML 1 ML VIAL IV PRN (14:33)
[2023-11-27] MEDS: LORazepam 2 MG/ML INJ IV STA (14:37)
[2023-11-27] MEDS: SODIUM CHLORIDE 0.9% 1,000 ML IV STA (14:39)
[2023-11-27] MEDS: IPRATROPIUM-ALBUTEROL 3 ML NEB INHALATION STA (16:15)
[2023-11-27 16:48] LABS: Glucose,Whole Blood 245 mg/dL (70-110)
[2023-11-27] MEDS: MORPHINE SULFATE 4 MG/ML SYRINGE IV PRN (17:20)
[2023-11-27] MEDS ORDERED: DEXTROSE 50% SYRINGE 50 ML IVP PRN ×2 (18:03)
--- NOTE | 2023-11-27 18:11 | P.HPIM ---
History of Present Illness H&P Date: 11/27/23 Chief Complaint: Increasing confusion Patient is a 73-year-old with a known history of metastatic high-grade urothelial carcinoma status post left neck mass lymph node biopsy, urothelial cancer status post chemo/RT in 06/2020, coronary artery disease with history of stent placement, chronic HFpEF, CKD stage IIIb with baseline creatinine level 1.5-1.7, diabetic nephropathy, diabetes type 2 insulin-dependent, hypertension, osteoarthritis, chronic low back pain, prior history of smoking left upper extremity DVT diagnosed in July 2023 and is on Eliquis. In September 2023 was detected with COVID-19. October 17, 2023 was discharged to rehab. On 27 October 2023 patient was brought home. Otherwise he would not be able to get treatment for his underlying cancer. Patient in July did get radiation treatment 3 out of 5. With changes on the skin now. Patient was due to get immunotherapy last week but because of difficult IV access unable to get the same. Port could not be placed because area of radiation in the chest is rather angry appearing as patient has been scratching the same. In the last 2 days patient is becoming increasingly confused. Unable to get around at all. Decreased appetite. No fever reported. Increasing shortness of breath. Patient tested positive for COVID-19. Some lactic acidosis. Worsening of renal function. Patient's at the bedside is able to give the history. Patient himself is rather delirious. Review of systems: Could not be obtained from the patient rather delirious. 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 Patient Smoked for 50 Years Stopped in 2019. Drinking Excessive Alcohol up to 2019. On examination: VITAL SIGNS: 98.9, 105, 16, 134/94, 97% on 2 L GENERAL: In bed, somewhat delirious moving about. Bruise skin upper chest EYES: Pupils equal. Conjunctiva normal. HEENT: External appearance of nose and ears normal, oral cavity grossly normal. NECK: JVD normal; masses not palpable. Hard mass of the left upper neck going to the mandible. Hard. HEART: Heart sounds irregular; edema present LUNGS: Respiratory rate increased; decreased breath sounds. ABDOMEN: Soft, nontender, liver spleen not palpable, no masses palpable. PSYCH: Unable to assess. Patient delirious l EXTREMITY: Left upper extremity swelling MUSCULOSKELETAL:No Clubbing/cyanosis;muscles-grossly intact. OA NEUROLOGICAL: Some facial asymmetry secondary to left neck mass. Otherwise cranial nerves grossly intact. Moving all 4 limbs INVESTIGATIONS, reviewed in the clinical context: November 27: White count 8.5 hemoglobin 9.8 platelets 309 sodium 143 potassium 4.5 BUN 107 creatinine 3.47 lactic acid 2.7 phosphorus 5.7 troponin I 0.053 COVID-19 PCR: Detected EKG tracing personally reviewed by me-sinus tachycardia. Nonspecific ST-T wave changes. Chest x-ray film personally reviewed by me-large left pleural effusion. Assessment and plan: -Acute COVID-19 pneumonia,. Patient was positive for the same during September. PCR can be positive for few weeks. This seems to be a new infection. Dexamethasone 6 mg IV every 12 -Possible left basilar/atelectasis/pleural effusion. Consult pulmonary. Ultrasound marking for left thoracentesis. -Acute metabolic encephalopathy, with delirium multifactorial -Metastatic urothelial carcinoma: -Completed treatment with concurrent chemo/RT in 06/2020. Was following up for observation in clinic through 11/2021 with no evidence of recurrence. Stopped f/u with urology in February 2022 due to insurance reasons, and has not had f/u since -Progressing left neck mass. Biopsy of the lt neck mass revealed metastatic non- small cell carcinoma consistent with metastatic high-grade urothelial carcinoma. Radiation treatment. In . [address] Patsy Banda-oncologist. Patient was due to get immunotherapy. But because of poor IV access could not get the same. Port could not be placed because of skin inflammation from rad iation/scratching. -Acute hypoxic respiratory failure secondary to Covid 19: 2 L nasal cannula -Chronic hypoxic respiratory failure Baseline 2 L nasal cannula -Chronic CHF exacerbation with preserved ejection fraction EF 50-55%: Better -Acute kidney injury likely ATN multifactorial. Creatinine is up from baseline. -Chronic kidney disease likely likely hydronephrosis secondary to cardiorenal syndrome. Along with right-sided hydronephrosis Follow renal function -Coronary artery disease with history of stent 2019 Lipitor, Lopressor -Chronic esophagitis with Otoole's esophagus Protonix -COPD in a prior smoker Ventolin when necessary. Symbicort. 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 Superficial thrombosis within the left cephalic vein. Eliquis Sleeve left upper extremity Followed by Dr. Montalvo from vascular. -Hyperlipidemia Lipitor -Diabetes type 2 insulin-dependent A1c 8.3, uncontrolled with hyperglycemia, secondary to steroids Lantus 20 units daily at bedtime. Accu-Cheks with sliding scale -Hypothyroid Synthroid 25 -BPH Flomax -Full code Consult oncology. Consult pulmonary. Discussed with at the bedside. Prognosis guarded. Past Medical History Past Medical History: Coronary Artery Disease (CAD), Cancer, Diabetes Mellitus, Hyperlipidemia, Hypertension, Myocardial Infarction (NM), Osteoarthritis (OA) Additional Past Medical History / Comment(s): Bladder cancer stage with treatment, in remission since 2020. IDDM type II, post polio syndrome,leg length discrepancy, bronchitis, chronic low back pain. 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 He is confused and restless orientated to person only. Smoking Status: Former smoker Past Alcohol Use History: None Reported Additional Past Alcohol Use History / Comment(s): Pt started smoking in 1968 and quit 07/21/19. Prior ETOH abuse-pt states he hasnt had alcohol in months Past Drug Use History: None Reported - Past Family History Father History Unknown: Yes Mother Additional Family Medical History / Comment(s): Mother of in a MVA when pt was 15 yrs old. Brother(s) Additional Family Medical History / Comment(s): Pt has one brother who of a bowel problem and another brother that of a ruptured aneurysm. Medications and Allergies Home Medications Medication Instructions Recorded Confirmed Type Aspirin 81 mg PO DAILY #90 chewable 07/25/19 11/27/23 Rx Atorvastatin [Lipitor] 80 mg PO DAILY 05/13/20 11/27/23 History Liraglutide [Victoza 3-Sam] 1.8 mg SQ DAILY 08/04/23 11/27/23 History Apixaban [Eliquis] 5 mg PO BID #60 tab 08/10/23 11/27/23 Rx Magnesium Oxide [Mag-Ox] 400 mg PO DAILY #30 tab 08/10/23 11/27/23 Rx Metoprolol Tartrate [Lopressor] 50 mg PO BID #60 tab 08/10/23 11/27/23 Rx Albuterol Sulfate [Albuterol 2 puff INHALATION RT-Q6H PRN 08/17/23 11/27/23 History Sulfate Hfa] Loratadine [Claritin] 5 mg PO DAILY #30 tab 08/31/23 11/27/23 Rx Tamsulosin [Flomax] 0.4 mg PO DAILY #30 cap 08/31/23 11/27/23 Rx Budesonide/Formoterol Fumarate 2 puff INHALATION RT-BID 09/06/23 11/27/23 History [Symbicort 80-4.5 Mcg Inhaler] Ipratropium-Albuterol Nebulize 3 ml INHALATION RT-QID 09/06/23 11/27/23 History [Duoneb 0.5 mg-3 mg/3 ml Soln] Pantoprazole [Protonix] 40 mg PO AC-BID@0800,1700 09/06/23 11/27/23 History Furosemide [Lasix] 80 mg PO BID@0900,1600 #60 tab 09/11/23 11/27/23 Rx Acetaminophen [Tylenol 8 Hour] 650 mg PO Q8H PRN 10/09/23 11/27/23 History Calcium Carbonate [Tums] 500 mg PO PC-TID 10/09/23 11/27/23 History Cholecalciferol [Vitamin D3 (25 50 mcg PO DAILY 10/09/23 11/27/23 History Mcg = 1000 Iu)] Lactulose [Cephulac] 20 gm PO DAILY 10/09/23 11/27/23 History Ascorbic Acid [Vitamin C] 500 mg PO DAILY tab 10/13/23 11/27/23 Rx Zinc Sulfate [Orazinc] 220 mg PO DAILY cap 10/13/23 11/27/23 Rx amLODIPine [Norvasc] 5 mg PO DAILY #1 tab 10/16/23 11/27/23 Rx HYDROcodone/APAP 7.5-325MG [[place] 1 tab PO Q4H PRN 11/27/23 11/27/23 History 7.5-325] Levothyroxine Sodium [Synthroid] 50 mcg PO DAILY 11/27/23 11/27/23 History Morphine Sulfate [Barb] 30 mg PO Q12H 11/27/23 11/27/23 History Ondansetron [Zofran] 4 mg PO Q4H PRN 11/27/23 11/27/23 History SILVER sulfADIAZINE CREAM 1 applic TOPICAL DAILY 11/27/23 11/27/23 History [Silvadene Cream] Sennosides [Senokot] 8.6 mg PO BID 11/27/23 11/27/23 History Allergies Allergy/AdvReac Type Severity Reaction Status Date / Time No Known Allergies Allergy Verified 11/27/23 15:25 Physical Exam Vitals: Vital Signs Temp Pulse Pulse Resp BP BP Pulse Ox 11/27/23 16:55 110 H 30 H 127/56 94 L 11/27/23 16:23 98.9 F 105 H 16 134/94 97 11/27/23 15:27 95 11/27/23 14:30 105 H 20 104/52 95 11/27/23 13:00 92 20 91/50 97 11/27/23 12:00 102 H 20 99/55 96 11/27/23 11:10 98.1 F 98 20 128/59 98 Intake and Output 11/27/23 11/27/23 11/27/23 06:59 14:59 22:59 Other: Weight 74.843 kg 74.843 kg Results CBC & Chem 7: 11/27/23 11:56 11/27/23 11:56 Labs: Abnormal Lab Results - Last 24 Hours (Table) 11/27/23 11/27/23 11/27/23 Range/Units 11:56 11:56 11:56 RBC 2.88 L (4.30-5.90) m/uL Hgb 9.8 L (13.0-17.5) gm/dL Hct 30.2 L (39.0-53.0) % MCV 104.7 H (80.0-100.0) fL RDW 16.0 H (11.5-15.5) % Lymphocytes # 0.4 L (1.0-4.8) k/uL PT 13.3 H (10.0-12.5) sec INR 1.3 H (<1.2) APTT 30.3 H (22.0-30.0) sec Chloride 108 H (98-107) mmol/L Carbon Dioxide 17 L (22-30) mmol/L BUN 107 H* (9-20) mg/dL Creatinine 3.47 H (0.66-1.25) mg/dL Glucose 234 H (74-99) mg/dL POC Glucose (mg/dL) (70-110) mg/dL Plasma Lactic Acid Bryan (0.7-2.0) mmol/L Calcium 7.9 L (8.4-10.2) mg/dL Phosphorus 5.7 H (2.5-4.5) mg/dL Troponin I (0.000-0.034) ng/mL Total Protein 5.8 L (6.3-8.2) g/dL Albumin 3.0 L (3.5-5.0) g/dL SARS-CoV-2 (PCR) (Not Detectd) 11/27/23 11/27/23 11/27/23 Range/Units 11:56 11:56 11:56 RBC (4.30-5.90) m/uL Hgb (13.0-17.5) gm/dL Hct (39.0-53.0) % MCV (80.0-100.0) fL RDW (11.5-15.5) % Lymphocytes # (1.0-4.8) k/uL PT (10.0-12.5) sec INR (<1.2) APTT (22.0-30.0) sec Chloride (98-107) mmol/L Carbon Dioxide (22-30) mmol/L BUN (9-20) mg/dL Creatinine (0.66-1.25) mg/dL Glucose (74-99) mg/dL POC Glucose (mg/dL) (70-110) mg/dL Plasma Lactic Acid Bryan 2.7 H* (0.7-2.0) mmol/L Calcium (8.4-10.2) mg/dL Phosphorus (2.5-4.5) mg/dL Troponin I 0.053 H* (0.000-0.034) ng/mL Total Protein (6.3-8.2) g/dL Albumin (3.5-5.0) g/dL SARS-CoV-2 (PCR) Detected A (Not Detectd) 11/27/23 11/27/23 Range/Units 15:13 16:47 RBC (4.30-5.90) m/uL Hgb (13.0-17.5) gm/dL Hct (39.0-53.0) % MCV (80.0-100.0) fL RDW (11.5-15.5) % Lymphocytes # (1.0-4.8) k/uL PT (10.0-12.5) sec INR (<1.2) APTT (22.0-30.0) sec Chloride (98-107) mmol/L Carbon Dioxide (22-30) mmol/L BUN (9-20) mg/dL Creatinine (0.66-1.25) mg/dL Glucose (74-99) mg/dL POC Glucose (mg/dL) 245 H (70-110) mg/dL Plasma Lactic Acid Bryan 3.0 H* (0.7-2.0) mmol/L Calcium (8.4-10.2) mg/dL Phosphorus (2.5-4.5) mg/dL Troponin I (0.000-0.034) ng/mL Total Protein (6.3-8.2) g/dL Albumin (3.5-5.0) g/dL SARS-CoV-2 (PCR) (Not Detectd) Thrombosis Risk Factor Assmnt - Choose All That Apply Each Factor Represents 1 point: Sepsis (< 1month), Swollen legs (current) Each Risk Factor Represents 2 Points: Age 61-74 years Each Risk Factor Represents 3 Points: History of DVT/PE Other congenital or acquired thrombophilia - If yes, enter type in comment: No Thrombosis Risk Factor Assessment Total Risk Factor Score: 7 Thrombosis Risk Factor Assessment Level: High Risk
[2023-11-27] MEDS: SYMBICORT 80-4.5 MCG INHALER INHALATION SCH (19:39)
[2023-11-27] MEDS ORDERED: IPRATROPIUM-ALBUTEROL 3 ML NEB INHALATION SCH (20:00)
--- NOTE | 2023-11-27 20:21 | US ---
EXAMINATION TYPE: US chest DATE OF EXAM: 11/27/2023 COMPARISON: Xray: 11/27/23 CLINICAL INDICATION: Male, 73 years old with history of Ultrasound marking for left thoracentesis; Ma rkings for left thora TECHNIQUE: Targeted ultrasound of the posterior lower left hemithorax Limited due to pt being confused. Images taken when pt was RLD *Unable to image right chest due to pt's AMS EXAM MEASUREMENTS: Left Pleural Effusion pocket size: 10.0 cm Left skin surface to fluid distance: 3.6 cm Left side marked for possible thoracentesis outside the dept. Pulmonologists are able to review the images in the patient?s EMR. IMPRESSIONS: Margin exam for thoracentesis demonstrating left-sided pleural effusion.
[2023-11-27 20:40] LABS: Glucose,Whole Blood 222 mg/dL (70-110)
[2023-11-27] MEDS: METOPROLOL TARTRATE 25 MG TAB PO SCH (20:44)
[2023-11-27] MEDS: INSULIN ASPART (NovoLOG) 100 UNIT/ML VIAL SQ SCH (20:52)
[2023-11-27] MEDS: DEXAMETHASONE SOD PHOSPHATE 10 MG/ML 1 ML VIAL IVP SCH (20:53)
[2023-11-27] MEDS: SODIUM CHLORIDE 0.45% 1,000 ML IV SCH (20:53)
[2023-11-27] MEDS: INSULIN DETEMIR (LEVEMIR) 100 UNIT/ML SYR SQ SCH (20:53)
--- NOTE | 2023-11-27 22:05 | XR ---
EXAMINATION TYPE: XR chest 1V portable DATE OF EXAM: 11/27/2023 10:00 PM CLINICAL INDICATION:Male, 73 years old with history of increased confusion; [facility] COMPARISON: Chest radiographs from TECHNIQUE: XR chest 1V portable Frontal view of the chest. FINDINGS: Lungs/Pleura: Stable left pleural effusion. No evidence of pneumothorax Pulmonary vascularity: Pulmonary vascular congestion. Heart/mediastinum: Cardiomediastinal silhouette is unremarkable. Musculoskeletal: No acute osseous pathology. IMPRESSION: Stable moderate left pleural effusion.
[2023-11-28] MEDS: LEVOTHYROXINE 50 MCG TAB PO SCH (05:01)
--- NOTE | 2023-11-28 05:27 | P.CNPUL ---
History of Present Illness Consult date: 11/28/23 Requesting physician: Lane Vergara Reason for consult: pleural effusion Chief complaint: Generalized weakness, falls, failure to thrive History of present illness: I am seeing this patient in new consultation today November 28, 2023 after he was brought in by his for generalized weakness, falls, and overall failure to thrive. We were consulted, as the patient has a large left pleural effusion. Patient is a 73-year-old white male with past medical history significant for metastatic urothelial carcinoma, currently undergoing radiation treatments, and tentative plans for immunotherapy. Patient was previously diagnosed with bladder cancer in 2019 which was originally treated with chemo and radiation. July, he had a large left neck mass and associated lymphadenopathy, which was biopsied and positive for metastatic non-small cell carcinoma consistent with metastatic high-grade urothelial carcinoma. He has had subsequent hospital admissions since then, including a recent admission for COVID in September. He was also found to have nonocclusive thrombosis of his left internal jugular vein and a superficial thrombus in the left cephalic vein. He is already on Eliquis for his history of atrial fibrillation. Other medical history includes coronary artery disease with previous stents, diabetes mellitus, hyperlipidemia, hypertension, CHF, childhood polio, among other things. Patient is very debilitated, and this information is provided by the patient's spouse who is at the bedside. He has been receiving palliative radiation outpatient. He has developed severe radiation-induced dermatitis and an open sore on his chest. There were also plans for possible immunotherapy pending IV access with port. His oncologist is Dr. Banda. Patient is currently lying in bed, he has extensive upper body edema. This includes his bilateral upper extremities, greater on the left, chest, neck, and face. The facial and neck swelling are severe, and he can hardly open his left eye. He has had difficulty swallowing, and was previously tolerating his medications in [facility]. He has not had anything to eat over the last 24 to 48 hours. He is unable to take his p.o. meds. His mentation and functional status has gradually declined over the last month. He is incontinent to stool and urine at home. His has reportedly removed him from the [facility] so that he can receive his immunotherapy treatments. He is currently lying on his left side, on 2 L nasal cannula, crying out. He does have severe neck swelling. Airway is patent on my evaluation. He has been started on IV decadron. He remains COVID-positive, likely from his previous admission. PCR results can remain positive for up to 3 months. Chest x-ray shows a stable moderate to large left-sided pleural effus ion. This was seen previously on the patient's PET scan back in October. Chest ultrasound measured this pocket at 10 cm. This could represent a malignant effusion. Patient's denies any previous history of thoracentesis. NT proBNP is elevated at 5590. Most recent echocardiogram done in July, shows a preserved ejection fraction of 50 to 55% without any significant valvular abnormalities. CBC on arrival: WC count 8.5, hemoglobin 9.8, hematocrit 30.2, platelets 309. BMP on arrival: Sodium 143, potassium 4.3, chloride 108, serum bicarb 17, BUN 107, creatinine 3.47, glucose 222. Lactic acid level was elevated at 3 and is down to 1.7. Troponins 0.053, 0.02, and 0.064 respectively. Currently vital signs are stable. Overall prognosis is poor. Review of Systems ROS unobtainable: due to mental status Past Medical History Past Medical History: Coronary Artery Disease (CAD), Cancer, Diabetes Mellitus, Hyperlipidemia, Hypertension, Myocardial Infarction ([place]), Osteoarthritis (OA) Additional Past Medical History / Comment(s): Bladder cancer stage with treatment, in remission since 2020. IDDM type II, post polio syndrome,leg length discrepancy, bronchitis, chronic low back pain. Last Myocardial Infarction Date:: 07/23/19 History of Any Multi-Drug Resistant Organisms: None Reported Past Surgical History: Heart Catheterization With Stent, Orthopedic Surgery Additional Past Surgical History / Comment(s): Cystoscopy, TURBT x2, closure of patent urachus bladder tumor as infant, R leg surgery d/t polio-lengthening, cardiac stents 2018; Right hip surgery 11/03/2022 Past Anesthesia/Blood Transfusion Reactions: No Reported Reaction Date of Last Stent Placement:: 07/23/19 Past Psychological History: No Psychological Hx Reported Smoking Status: Former smoker Past Alcohol Use History: None Reported Past Drug Use History: None Reported - Past Family History Father History Unknown: Yes Mother Additional Family Medical History / Comment(s): Mother of in a MVA when pt was 15 yrs old. Brother(s) Additional Family Medical History / Comment(s): Pt has one brother who of a bowel problem and another brother that of a ruptured aneurysm. Medications and Allergies Home Medications Medication Instructions Recorded Confirmed Type Aspirin 81 mg PO DAILY #90 chewable 07/25/19 11/27/23 Rx Atorvastatin [Lipitor] 80 mg PO DAILY 05/13/20 11/27/23 History Liraglutide [Victoza 3-Sam] 1.8 mg SQ DAILY 08/04/23 11/27/23 History Apixaban [Eliquis] 5 mg PO BID #60 tab 08/10/23 11/27/23 Rx Magnesium Oxide [Mag-Ox] 400 mg PO DAILY #30 tab 08/10/23 11/27/23 Rx Metoprolol Tartrate [Lopressor] 50 mg PO BID #60 tab 08/10/23 11/27/23 Rx Albuterol Sulfate [Albuterol 2 puff INHALATION RT-Q6H PRN 08/17/23 11/27/23 History Sulfate Hfa] Loratadine [Claritin] 5 mg PO DAILY #30 tab 08/31/23 11/27/23 Rx Tamsulosin [Flomax] 0.4 mg PO DAILY #30 cap 08/31/23 11/27/23 Rx Budesonide/Formoterol Fumarate 2 puff INHALATION RT-BID 09/06/23 11/27/23 History [Symbicort 80-4.5 Mcg Inhaler] Ipratropium-Albuterol Nebulize 3 ml INHALATION RT-QID 09/06/23 11/27/23 History [Duoneb 0.5 mg-3 mg/3 ml Soln] Pantoprazole [Protonix] 40 mg PO AC-BID@0800,1700 09/06/23 11/27/23 History Furosemide [Lasix] 80 mg PO BID@0900,1600 #60 tab 09/11/23 11/27/23 Rx Acetaminophen [Tylenol 8 Hour] 650 mg PO Q8H PRN 10/09/23 11/27/23 History Calcium Carbonate [Tums] 500 mg PO PC-TID 10/09/23 11/27/23 History Cholecalciferol [Vitamin D3 (25 50 mcg PO DAILY 10/09/23 11/27/23 History Mcg = 1000 Iu)] Lactulose [Cephulac] 20 gm PO DAILY 10/09/23 11/27/23 History Ascorbic Acid [Vitamin C] 500 mg PO DAILY tab 10/13/23 11/27/23 Rx Zinc Sulfate [Orazinc] 220 mg PO DAILY cap 10/13/23 11/27/23 Rx amLODIPine [Norvasc] 5 mg PO DAILY #1 tab 10/16/23 11/27/23 Rx HYDROcodone/APAP 7.5-325MG [[place] 1 tab PO Q4H PRN 11/27/23 11/27/23 History 7.5-325] Levothyroxine Sodium [Synthroid] 50 mcg PO DAILY 11/27/23 11/27/23 History Morphine Sulfate [Barb] 30 mg PO Q12H 11/27/23 11/27/23 History Ondansetron [Zofran] 4 mg PO Q4H PRN 11/27/23 11/27/23 History SILVER sulfADIAZINE CREAM 1 applic TOPICAL DAILY 11/27/23 11/27/23 History [Silvadene Cream] Sennosides [Senokot] 8.6 mg PO BID 11/27/23 11/27/23 History Allergies Allergy/AdvReac Type Severity Reaction Status Date / Time No Known Allergies Allergy Verified 11/27/23 15:25 Physical Exam Vitals: Vital Signs Temp Pulse Pulse Resp BP BP Pulse Ox 11/27/23 20:00 99.1 F 110 H 24 141/55 96 11/27/23 16:55 110 H 30 H 127/56 94 L 11/27/23 16:23 98.9 F 105 H 16 134/94 97 11/27/23 15:27 95 11/27/23 14:30 105 H 20 104/52 95 11/27/23 13:00 92 20 91/50 97 11/27/23 12:00 102 H 20 99/55 96 11/27/23 11:10 98.1 F 98 20 128/59 98 Intake and Output 11/27/23 11/27/23 11/28/23 14:59 22:59 06:59 Output Total 0 Balance 0 Output: Urine 0 Other: Voiding Method External Catheter Weight 74.843 kg 74.843 kg GENERAL EXAM: Alert and crying, debilitated, cachectic, with significant upper body edema and facial swelling. HEAD: Significant facial edema and left periorbital edema. EYES: Normal reaction of pupils, equal size. NOSE: Clear with pink turbinates. THROAT: No erythema or exudates. NECK: Severe pericervical edema, skin is taut and hard with left-sided mass CHEST: Upper chest edema and radiation dermatitis. LUNGS: Equal air entry with no crackles, wheeze, rhonchi or dullness. There is significant upper airway edema, with mild stridor. Currently on 2 L/min nasal cannula. CVS: S1 and S2 normal with no audible murmur, regular rhythm. No extra heart sounds ABDOMEN: No hepatosplenomegaly, active bowel sounds, no guarding or rigidity. SPINE: No scoliosis or deformity SKIN: Upper chest radiation dermatitis/burn/open wound CENTRAL NERVOUS SYSTEM: Delirious, essentially nonverbal, intermittent spontaneously opens eyes. Does not follow commands. No obvious focal deficits, tone is normal in all 4 extremities. EXTREMITIES: There is significant upper extremity edema, worse on the left. No clubbing, or cyanosis. Peripheral pulses are intact. Results - Laboratory Findings CBC and BMP: 11/27/23 11:56 11/27/23 11:56 PT/INR, D-dimer PT 13.3 sec (10.0-12.5) H 11/27/23 11:56 INR 1.3 (<1.2) H 11/27/23 11:56 Abnormal lab findings: Abnormal Labs 11/27/23 11/27/23 11/27/23 11:56 11:56 11:56 RBC 2.88 L Hgb 9.8 L Hct 30.2 L MCV 104.7 H RDW 16.0 H Lymphocytes # 0.4 L PT 13.3 H INR 1.3 H APTT 30.3 H Chloride 108 H Carbon Dioxide 17 L BUN 107 H* Creatinine 3.47 H Glucose 234 H POC Glucose (mg/dL) Plasma Lactic Acid Bryan Calcium 7.9 L Phosphorus 5.7 H Troponin I Total Protein 5.8 L Albumin 3.0 L SARS-CoV-2 (PCR) 11/27/23 11/27/23 11/27/23 11:56 11:56 11:56 RBC Hgb Hct MCV RDW Lymphocytes # PT INR APTT Chloride Carbon Dioxide BUN Creatinine Glucose POC Glucose (mg/dL) Plasma Lactic Acid Bryan 2.7 H* Calcium Phosphorus Troponin I 0.053 H* Total Protein Albumin SARS-CoV-2 (PCR) Detected A 11/27/23 11/27/23 11/27/23 15:13 16:47 17:57 RBC Hgb Hct MCV RDW Lymphocytes # PT INR APTT Chloride Carbon Dioxide BUN Creatinine Glucose POC Glucose (mg/dL) 245 H Plasma Lactic Acid Bryan 3.0 H* Calcium Phosphorus Troponin I 0.064 H* Total Protein Albumin SARS-CoV-2 (PCR) 11/27/23 11/27/23 18:26 20:36 RBC Hgb Hct MCV RDW Lymphocytes # PT INR APTT Chloride Carbon Dioxide BUN Creatinine Glucose POC Glucose (mg/dL) 222 H Plasma Lactic Acid Bryan 2.1 H* Calcium Phosphorus Troponin I Total Protein Albumin SARS-CoV-2 (PCR) - Diagnostic Findings Chest x-ray: image reviewed Assessment and Plan Assessment: Acute hypoxemic respiratory failure, currently on 2 L/min nasal cannula, chest x-ray shows a moderate to large left-sided pleural effusion with likely co mpressive atelectasis. No previous history of thoracentesis. This could be a malignant effusion. Of more concern, the patient has extensive neck and upper airway edema. There is some mild associated stridor. He is currently receiving radiation treatments outpatient. Metastatic urothelial carcinoma with large neck mass Failure to thrive Severe dehydration and reduced oral intake Acute on chronic kidney disease, secondary to ATN and above Metabolic anion gap acidosis, with lactic acidosis, improving AMS and suspected acute metabolic encephalopathy, possible secondary to above. Recent COVID 19 infection, remains PCR positive Radiation induced radiodermatitis/burn/open wound History of left IJ nonocclusive thrombus History of superficial venous thrombus of the left cephalic vein History of paroxysmal atrial fibrillation, chronically maintained on Eliquis Coronary artery disease, with previous stenting History of hypertension History of hyperlipidemia History of diabetes mellitus History of bladder cancer with previous chemo and radiation Chronic anemia Plan: Patient's medications, labs, chest x-ray reviewed. Continue supplemental oxygen Patient does have a moderate sized left-sided pleural effusion, which was stable from previous imaging back in August,. Ultrasound of the chest measured this pocket at 10 cm. Patient is currently on Eliquis for his multiple thrombus and paroxysmal a. fib. I will talk to Dr. Tsai later this morning about the possibility of a thoracentesis. There is severe neck edema. He is currently receiving radiation treatments outpatient. Continue Decadron. Overall prognosis is poor secondary to above mentioned comorbidities. We will continue to follow, and further recommendations are forthcoming. I have personally seen and examined the patient, performed the documentation and the assessment and plan as written. Number of minutes spent on the visit:20 Time with Patient: Greater than 30
[2023-11-28 06:23] LABS: Glucose,Whole Blood 131 mg/dL (70-110)
[2023-11-28] MEDS: PANTOPRAZOLE 40 MG TABLET PO SCH (08:59)
[2023-11-28] MEDS: ASPIRIN 81 MG PO SCH (08:59)
[2023-11-28] MEDS: ATORVASTATIN 80 MG TAB PO SCH (08:59)
[2023-11-28] MEDS: Liraglutide [Victoza 3-Pak] 0.6 MG/0.1 ML Ml SQ SCH (09:00)
[2023-11-28] MEDS: TAMSULOSIN 0.4 MG CAP.ER.24H PO SCH (09:00)
[2023-11-28 11:22] LABS: Glucose,Whole Blood 160 mg/dL (70-110)
--- NOTE | 2023-11-28 12:46 | P.CNPUL ---
History of Present Illness Consult date: 11/28/23 Chief complaint: Generalized weakness History of present illness: This is a 73-year-old male patient with known history of metastatic urothelial carcinoma of the bladder. The patient is coming into the hospital because of dehydration, generalized weakness, falls and failure to thrive. The has noted significant change in his condition over the past 24 to 48 hours and the patient was also having diminished level of consciousness and he was acting encephalopathic. For that reason, the patient was brought into the hospital. I reviewed the records in regards to his metastatic urothelial cancer. The patient has had previous bladder cancer that was treated with chemoradiation therapy back in 2019. He was lost to follow-up and subsequently in July 2023, the patient was found to have a large neck mass and a biopsy of the neck mass was consistent with metastatic disease. At that point, the patient was referred to medical oncology and radiation oncology. He was given 5 radiation therapy treatments to his chest which resulted into significant amount of radiation induced skin necrosis and damage to his neck. The patient also was found to have facial and left neck and eye swelling and this was attributed to a nonocclusive thrombus in the left internal jugular vein and superficial thrombus in the cephalic veins. The based on that, the patient was unable to complete his radiation therapy. He does have severe radiation-induced dermatitis within open the area of skin necrosis in the mid part of the chest just above the sternum. The patient as such was supposed to start also immunotherapy. Due to failure of a port insertion and IV access, the patient did not receive any radiation therapy. At this point in time, he is having difficulties with swallowing. Unable to have full meals and according to the his oral intake is been quite diminished. He came into the hospital and he is still was found to be positive for COVID-19. Note that he was diagnosed having COVID-19 infection back in September 2023 and since then the test and the PCR turned out to be positive. The chest x-ray showed a moderate size left-sided pleural effusion. This is a new finding as the patient is known to haveA left-sided pleural effusion and this was also seen on a PET/CT that was done on 11/11/2023 that showed abnormal uptake in the soft tissue in the left neck and left medial shoulder and left paraspinal region in the upper thorax. There was also suspicious uptake within the posterior wall of the urinary bladder. Moderate size pleural effusion was also seen that was present. His echocardiogram from 08/07/2023 showed a preserved LV function with an ejection fraction of 50 to 55%. No significant valvular abnormalities. On his labs, the patient was found to have a WBC count of 8.5 with a hemoglobin 9.8 and a platelet count of 309. The BUN was 107 with a creatinine of 3.47 and the patient obviously had a compon ent of an acute kidney injury on top of chronic kidney disease. The sodium was at 143 with a potassium level of 4.5, serum bicarb was at 17, proBNP level was 5590 and the troponin was 0.06. LFTs were normal. As mentioned COVID-19 testing was still positive. The patient is currently on portable oxygen nasal cannula with a pulse ox of 95%. He is profoundly weak and lethargic at this point. He was started on IV fluid hydration. His comorbid conditions include coronary artery disease with previous coronary stents, diabetes mellitus, hypertension, hyperlipidemia, childhood polio and history of CHF with preserved LV function. Review of Systems Unable to communicate with the patient due to his altered mentation. He is weak and lethargic and failure to thrive. Past Medical History Past Medical History: Coronary Artery Disease (CAD), Cancer, Diabetes Mellitus, Hyperlipidemia, Hypertension, Myocardial Infarction ([place]), Osteoarthritis (OA) Additional Past Medical History / Comment(s): Bladder cancer stage with treatment, in remission since 2020. IDDM type II, post polio syndrome,leg length discrepancy, bronchitis, chronic low back pain. Last Myocardial Infarction Date:: 07/23/19 History of Any Multi-Drug Resistant Organisms: None Reported Past Surgical History: Heart Catheterization With Stent, Orthopedic Surgery Additional Past Surgical History / Comment(s): Cystoscopy, TURBT x2, closure of patent urachus bladder tumor as infant, R leg surgery d/t polio-lengthening, cardiac stents 2018; Right hip surgery 11/03/2022 Past Anesthesia/Blood Transfusion Reactions: No Reported Reaction Date of Last Stent Placement:: 07/23/19 Past Psychological History: No Psychological Hx Reported Smoking Status: Former smoker Past Alcohol Use History: None Reported Past Drug Use History: None Reported - Past Family History Father History Unknown: Yes Mother Additional Family Medical History / Comment(s): Mother of in a MVA when pt was 15 yrs old. Brother(s) Additional Family Medical History / Comment(s): Pt has one brother who of a bowel problem and another brother that of a ruptured aneurysm. Medications and Allergies Home Medications Medication Instructions Recorded Confirmed Type Aspirin 81 mg PO DAILY #90 chewable 07/25/19 11/27/23 Rx Atorvastatin [Lipitor] 80 mg PO DAILY 05/13/20 11/27/23 History Liraglutide [Victoza 3-Sam] 1.8 mg SQ DAILY 08/04/23 11/27/23 History Apixaban [Eliquis] 5 mg PO BID #60 tab 08/10/23 11/27/23 Rx Magnesium Oxide [Mag-Ox] 400 mg PO DAILY #30 tab 08/10/23 11/27/23 Rx Metoprolol Tartrate [Lopressor] 50 mg PO BID #60 tab 08/10/23 11/27/23 Rx Albuterol Sulfate [Albuterol 2 puff INHALATION RT-Q6H PRN 08/17/23 11/27/23 History Sulfate Hfa] Loratadine [Claritin] 5 mg PO DAILY #30 tab 08/31/23 11/27/23 Rx Tamsulosin [Flomax] 0.4 mg PO DAILY #30 cap 08/31/23 11/27/23 Rx Budesonide/Formoterol Fumarate 2 puff INHALATION RT-BID 09/06/23 11/27/23 History [Symbicort 80-4.5 Mcg Inhaler] Ipratropium-Albuterol Nebulize 3 ml INHALATION RT-QID 09/06/23 11/27/23 History [Duoneb 0.5 mg-3 mg/3 ml Soln] Pantoprazole [Protonix] 40 mg PO AC-BID@0800,1700 09/06/23 11/27/23 History Furosemide [Lasix] 80 mg PO BID@0900,1600 #60 tab 09/11/23 11/27/23 Rx Acetaminophen [Tylenol 8 Hour] 650 mg PO Q8H PRN 10/09/23 11/27/23 History Calcium Carbonate [Tums] 500 mg PO PC-TID 10/09/23 11/27/23 History Cholecalciferol [Vitamin D3 (25 50 mcg PO DAILY 10/09/23 11/27/23 History Mcg = 1000 Iu)] Lactulose [Cephulac] 20 gm PO DAILY 10/09/23 11/27/23 History Ascorbic Acid [Vitamin C] 500 mg PO DAILY tab 10/13/23 11/27/23 Rx Zinc Sulfate [Orazinc] 220 mg PO DAILY cap 10/13/23 11/27/23 Rx amLODIPine [Norvasc] 5 mg PO DAILY #1 tab 10/16/23 11/27/23 Rx HYDROcodone/APAP 7.5-325MG [[place] 1 tab PO Q4H PRN 11/27/23 11/27/23 History 7.5-325] Levothyroxine Sodium [Synthroid] 50 mcg PO DAILY 11/27/23 11/27/23 History Morphine Sulfate [Barb] 30 mg PO Q12H 11/27/23 11/27/23 History Ondansetron [Zofran] 4 mg PO Q4H PRN 11/27/23 11/27/23 History SILVER sulfADIAZINE CREAM 1 applic TOPICAL DAILY 11/27/23 11/27/23 History [Silvadene Cream] Sennosides [Senokot] 8.6 mg PO BID 11/27/23 11/27/23 History Allergies Allergy/AdvReac Type Severity Reaction Status Date / Time No Known Allergies Allergy Verified 11/27/23 15:25 Physical Exam Vitals: Vital Signs Temp Pulse Pulse Resp BP BP Pulse Ox 11/28/23 12:00 98.3 F 92 20 149/49 97 11/28/23 08:00 97.8 F 92 20 142/59 96 11/28/23 04:00 98 24 108/51 95 11/28/23 02:00 96 11/28/23 00:00 98.5 F 96 22 134/51 93 L 11/27/23 20:00 99.1 F 110 H 24 141/55 96 11/27/23 16:55 110 H 30 H 127/56 94 L 11/27/23 16:23 98.9 F 105 H 16 134/94 97 11/27/23 15:27 95 11/27/23 14:30 105 H 20 104/52 95 11/27/23 13:00 92 20 91/50 97 Intake and Output 11/27/23 11/28/23 11/28/23 22:59 06:59 14:59 Output Total 0 Balance 0 Output: Urine 0 Other: Voiding Method External Catheter External Catheter Incontinent # Voids 3 Weight 74.843 kg GENERAL EXAM: Alert and crying, debilitated, cachectic, with significant left facial, left orbital and left neck swelling. HEAD: Significant facial edema and left periorbital edema. EYES: Normal reaction of pupils, equal size. NOSE: Clear with pink turbinates. THROAT: No erythema or exudates. NECK: Severe pericervical edema, skin is taut and hard with left-sided mass CHEST: Upper chest edema and radiation dermatitis. LUNGS: Equal air entry with no crackles, wheeze, rhonchi or dullness. There is significant upper airway edema, with mild stridor. Currently on 2 L/min nasal cannula. CVS: S1 and S2 normal with no audible murmur, regular rhythm. No extra heart sounds ABDOMEN: No hepatosplenomegaly, active bowel sounds, no guarding or rigidity. SPINE: No scoliosis or deformity SKIN: Upper chest radiation dermatitis/burn/open wound, there is an area of central necrosis with a scab just above the sternum. CENTRAL NERVOUS SYSTEM: Delirious, essentially nonverbal, intermittent spontaneously opens eyes. Does not follow commands. No obvious focal deficits, tone is normal in all 4 extremities. EXTREMITIES: There is significant upper extremity edema, worse on the left. No clubbing, or cyanosis. Peripheral pulses are intact. Results - Laboratory Findings CBC and BMP: 11/27/23 11:56 11/27/23 11:56 PT/INR, D-dimer PT 13.3 sec (10.0-12.5) H 11/27/23 11:56 INR 1.3 (<1.2) H 11/27/23 11:56 Abnormal lab findings: Abnormal Labs 11/27/23 11/27/23 11/27/23 11:56 11:56 11:56 RBC 2.88 L Hgb 9.8 L Hct 30.2 L MCV 104.7 H RDW 16.0 H Lymphocytes # 0.4 L PT 13.3 H INR 1.3 H APTT 30.3 H Chloride 108 H Carbon Dioxide 17 L BUN 107 H* Creatinine 3.47 H Glucose 234 H POC Glucose (mg/dL) Plasma Lactic Acid Bryan Calcium 7.9 L Phosphorus 5.7 H Troponin I Total Protein 5.8 L Albumin 3.0 L SARS-CoV-2 (PCR) 11/27/23 11/27/23 11/27/23 11:56 11:56 11:56 RBC Hgb Hct MCV RDW Lymphocytes # PT INR APTT Chloride Carbon Dioxide BUN Creatinine Glucose POC Glucose (mg/dL) Plasma Lactic Acid Bryan 2.7 H* Calcium Phosphorus Troponin I 0.053 H* Total Protein Albumin SARS-CoV-2 (PCR) Detected A 11/27/23 11/27/23 11/27/23 15:13 16:47 17:57 RBC Hgb Hct MCV RDW Lymphocytes # PT INR APTT Chloride Carbon Dioxide BUN Creatinine Glucose POC Glucose (mg/dL) 245 H Plasma Lactic Acid Bryan 3.0 H* Calcium Phosphorus Troponin I 0.064 H* Total Protein Albumin SARS-CoV-2 (PCR) 11/27/23 11/27/23 11/28/23 18:26 20:36 06:21 RBC Hgb Hct MCV RDW Lymphocytes # PT INR APTT Chloride Carbon Dioxide BUN Creatinine Glucose POC Glucose (mg/dL) 222 H 131 H Plasma Lactic Acid Bryan 2.1 H* Calcium Phosphorus Troponin I Total Protein Albumin SARS-CoV-2 (PCR) 11/28/23 11:21 RBC Hgb Hct MCV RDW Lymphocytes # PT INR APTT Chloride Carbon Dioxide BUN Creatinine Glucose POC Glucose (mg/dL) 160 H Plasma Lactic Acid Bryan Calcium Phosphorus Troponin I Total Protein Albumin SARS-CoV-2 (PCR) - Diagnostic Findings Chest x-ray: image reviewed Assessment and Plan Plan: Acute hypoxic respiratory failure and the patient is currently on 4 L O2 nasal cannula. Chest x-ray showing a chronic left-sided pleural effusion. Diagnostic thoracentesis not been done. This could be potentially malignant in nature. CHF related pleural effusion cannot be completely ruled out. Nevertheless, this pleural effusion has been present and it was already seen on a previous PET/CT that was done in October 2023. Known history of metastatic urothelial cancer initially treated with chemoradiation therapy back in 2019. Subsequently the patient developed metastatic disease with a large left neck mass. The patient originally underwent a transurethral resection of bladder cancer on 03/03/2020 and he was found to have a 3 cm urothelial carcinoma with papillary features and he opted for concurrent chemotherapy and radiation therapy with a combination of cisplatin and Taxol rather than surgical resection. Failure to thrive and diminished oral intake and significant dehydration Acute on top of chronic kidney injury secondary to above Dysphagia secondary radiation therapy to the neck Metastatic urothelial carcinoma with a large left neck mass and the patient was treated with radiation therapy this was complicated by severe radiation dermatitis and necrosis Non-anion gap metabolic acidosis secondary to above COVID-19 infection diagnosed in September 2023 and the patient continues to be PCR positive Left facial, orbital and neck swelling related to thrombosis of the left IJ and the patient has also superficial venous thrombosis involving the left cephalic vein Paroxysmal A-fib Hypertension Hyperlipidemia Diabetes mellitus type 2 CHF with preserved LV function Coronary artery disease Osteoarthritis Chronic back pain History of childhood polio syndrome Plan Nutrition is a priority for this patient. I discussed the possibility of an NG tube/Dobbhoff to access his stomach for enteral feeding and distress support. The family is going also to give a catheterization for PEG tube feeding Continue IV fluids for significant dehydration and acute kidney injury. Will monitor his electrolytes and renal function. The patient is currently on half normal sinus rate of 75 cc an hour. No immediate need to do a thoracentesis on this patient specially the patient is on anticoagulation. This will be addressed within the next 24 to 48 hours. Meanwhile, suggest putting the patient on Lovenox therapeutic doses as the patient is known to have left IJ and cephalic vein thrombosis with significant edema in his face and neck Titrate oxygen flow to maintain saturation above 90% currently on 4 L Ask radiation oncology to evaluate for significant dermatitis over the skin. May benefit from topical steroids to the skin. The patient was also placed on Decadron. Oncology consultation Prognosis remains poor. Will continue to follow. Time with Patient: Greater than 30
[2023-11-28 13:12] LABS: Appearance,Urine Cloudy (Clear); Bacteria,Urine Many /hpf; Bilirubin,Urine Negative (Negative); Blood,Urine Moderate (Negative); Color,Urine Yellow; Glucose,Urine (UA) Negative (Negative); Hyaline Casts,Urine 10 /lpf (0-2); Ketones,Urine Negative (Negative); Leukocyte Esterase,Urine Large (Negative); Nitrite,Urine Negative (Negative); Protein,Urine 1+ (Negative); RBC,Urine 47 /hpf (0-5); Specific Gravity,Urine 1.016 (1.001-1.035); Squamous Epithelial Cell,Urine 1 /hpf (0-4); Urobilinogen,Urine <2.0 mg/dL (<2.0); WBC,Urine >182 /hpf (0-5)
[2023-11-28 13:14] VITALS: BMI 26.6
--- NOTE | 2023-11-28 13:49 | CT ---
EXAMINATION TYPE: CT brain wo con DATE OF EXAM: 11/28/2023 COMPARISON: 09/12/2023 HISTORY: confusion, metastatic urothelial cancer CT DLP: 2186.[address] of the brain was performed. The ventricles, basal cisterns and sulci overlying the cerebral convexities demonstrate mild enlargem ent. There is no evidence for intracranial hemorrhage or sulcal effacement. There is decreased attenuation about the periventricular white matter and deep white matter of both c erebral hemispheres, compatible with chronic small vessel ischemia. Differential diagnosis does inclu de demyelination. No mass effects are seen.No midline shift. Osseous calvarium is intact. Complex left neck mass is redemonstrated from prior study and partially imaged. Left facial swelling. If symptoms persist consider MRI. IMPRESSION: 1. Age related atrophic and chronic small vessel ischemic change without acute intracranial process s een at this time.
--- NOTE | 2023-11-28 15:24 | P.GSCN ---
History of Present Illness Consult date: 11/28/23 History of present illness: CHIEF COMPLAINT: weakness HISTORY OF PRESENT ILLNESS: This is a 73-year-old male who presented to the hospital with weakness and failure to thrive. He has a known history of stage IV metastatic bladder cancer with mets to the neck. He has received radiation treatment in July and August 2023. And was to proceed with immunotherapy. However, did not have IV access. Oncology services requesting surgical eval for possible port placement. Patient has radiation burn to the neck with a large wound from patient picking at his skin. is concerned that patient would take at the port location as well. Patient has also been having difficulty with swallowing. He failed his swallow eval. There is concerns for possible aspiration. And patient is currently NPO. Oncology also requested eval for possible EGD with PEG tube placement. Patient also has a left pleural effusion being followed by pulmonary service. PAST MEDICAL HISTORY: See below PAST SURGICAL HISTORY: See below MEDICATIONS: See below ALLERGIES: See below SOCIAL HISTORY: No illicit drug use. REVIEW OF SYSTEMS: CONSTITUTIONAL: Denies fever or chills. HEENT: Denies blurred vision, vision changes, or eye pain. Denies hemoptysis CARDIOVASCULAR: Denies chest pain or pressure. RESPIRATORY: No shortness of breath. GASTROINTESTINAL: See HPI for pertinent findings HEMATOLOGIC: Denies bleeding disorders. GENITOURINARY: Denies any blood in urine or increased urinary frequency. SKIN: Denies pruitis. Denies rash. PHYSICAL EXAM: VITAL SIGNS: Reviewed GENERAL: Malnourished. No acute distress. HEENT: Patient has radiation burn to the neck. There also is a large wound on the neck. ABDOMEN: Soft. Nondistended. Nontender NEUROLOGIC: Awake and alert LABORATORY DATA: WBC 8.5 Hgb 9.8 platelets 309 INR 1.3 Sodium 143 potassium 4.5 creatinine 3.47 IMAGING: ASSESSMENT: 1. Bladder cancer with metastatic disease to the neck. Patient requiring port for placement 2. Dysphagia. Failed swallow eval 3. Moderate protein calorie malnutrition PLAN: -Patient scheduled for EGD and PEG tube placement tomorrow with Dr. Finnegan -Patient tentatively scheduled for Port-A-Cath placement on Sunday Physician Legislative Assistant note has been reviewed by physician. Signing provider agrees with the documented findings, assessment, and plan of care. Past Medical History Past Medical History: Coronary Artery Disease (CAD), Cancer, Diabetes Mellitus, Hyperlipidemia, Hypertension, Myocardial Infarction ([place]), Osteoarthritis (OA) Additional Past Medical History / Comment(s): Bladder cancer stage with treatment, in remission since 2020. IDDM type II, post polio syndrome,leg length discrepancy, bronchitis, chronic low back pain. Last Myocardial Infarction Date:: 07/23/19 History of Any Multi-Drug Resistant Organisms: None Reported Past Surgical History: Heart Catheterization With Stent, Orthopedic Surgery Additional Past Surgical History / Comment(s): Cystoscopy, TURBT x2, closure of patent urachus bladder tumor as infant, R leg surgery d/t polio-lengthening, cardiac stents 2018; Right hip surgery 11/03/2022 Past Anesthesia/Blood Transfusion Reactions: No Reported Reaction Date of Last Stent Placement:: 07/23/19 Past Psychological History: No Psychological Hx Reported Smoking Status: Former smoker Past Alcohol Use History: None Reported Past Drug Use History: None Reported - Past Family History Father History Unknown: Yes Mother Additional Family Medical History / Comment(s): Mother of in a MVA when pt was 15 yrs old. Brother(s) Additional Family Medical History / Comment(s): Pt has one brother who of a bowel problem and another brother that of a ruptured aneurysm. Medications and Allergies Home Medications Medication Instructions Recorded Confirmed Type Aspirin 81 mg PO DAILY #90 chewable 07/25/19 11/27/23 Rx Atorvastatin [Lipitor] 80 mg PO DAILY 05/13/20 11/27/23 History Liraglutide [Victoza 3-Sam] 1.8 mg SQ DAILY 08/04/23 11/27/23 History Apixaban [Eliquis] 5 mg PO BID #60 tab 08/10/23 11/27/23 Rx Magnesium Oxide [Mag-Ox] 400 mg PO DAILY #30 tab 08/10/23 11/27/23 Rx Metoprolol Tartrate [Lopressor] 50 mg PO BID #60 tab 08/10/23 11/27/23 Rx Albuterol Sulfate [Albuterol 2 puff INHALATION RT-Q6H PRN 08/17/23 11/27/23 History Sulfate Hfa] Loratadine [Claritin] 5 mg PO DAILY #30 tab 08/31/23 11/27/23 Rx Tamsulosin [Flomax] 0.4 mg PO DAILY #30 cap 08/31/23 11/27/23 Rx Budesonide/Formoterol Fumarate 2 puff INHALATION RT-BID 09/06/23 11/27/23 History [Symbicort 80-4.5 Mcg Inhaler] Ipratropium-Albuterol Nebulize 3 ml INHALATION RT-QID 09/06/23 11/27/23 History [Duoneb 0.5 mg-3 mg/3 ml Soln] Pantoprazole [Protonix] 40 mg PO AC-BID@0800,1700 09/06/23 11/27/23 History Furosemide [Lasix] 80 mg PO BID@0900,1600 #60 tab 09/11/23 11/27/23 Rx Acetaminophen [Tylenol 8 Hour] 650 mg PO Q8H PRN 10/09/23 11/27/23 History Calcium Carbonate [Tums] 500 mg PO PC-TID 10/09/23 11/27/23 History Cholecalciferol [Vitamin D3 (25 50 mcg PO DAILY 10/09/23 11/27/23 History Mcg = 1000 Iu)] Lactulose [Cephulac] 20 gm PO DAILY 10/09/23 11/27/23 History Ascorbic Acid [Vitamin C] 500 mg PO DAILY tab 10/13/23 11/27/23 Rx Zinc Sulfate [Orazinc] 220 mg PO DAILY cap 10/13/23 11/27/23 Rx amLODIPine [Norvasc] 5 mg PO DAILY #1 tab 10/16/23 11/27/23 Rx HYDROcodone/APAP 7.5-325MG [[place] 1 tab PO Q4H PRN 11/27/23 11/27/23 History 7.5-325] Levothyroxine Sodium [Synthroid] 50 mcg PO DAILY 11/27/23 11/27/23 History Morphine Sulfate [Barb] 30 mg PO Q12H 11/27/23 11/27/23 History Ondansetron [Zofran] 4 mg PO Q4H PRN 11/27/23 11/27/23 History SILVER sulfADIAZINE CREAM 1 applic TOPICAL DAILY 11/27/23 11/27/23 History [Silvadene Cream] Sennosides [Senokot] 8.6 mg PO BID 11/27/23 11/27/23 History Allergies Allergy/AdvReac Type Severity Reaction Status Date / Time No Known Allergies Allergy Verified 11/27/23 15:25 Surgical - Exam Vital Signs Temp Pulse Resp BP Pulse Ox 98.1 F 98 20 128/59 98 11/27/23 11:10 11/27/23 11:10 11/27/23 11:10 11/27/23 11:10 11/27/23 11:10 Results - Labs 11/27/23 11:56 11/27/23 11:56 Abnormal Lab Results - Last 24 Hours (Table) 11/27/23 11/27/23 11/27/23 Range/Units 15:13 16:47 17:57 POC Glucose (mg/dL) 245 H (70-110) mg/dL Plasma Lactic Acid Bryan 3.0 H* (0.7-2.0) mmol/L Troponin I 0.064 H* (0.000-0.034) ng/mL Urine Protein (Negative) Urine Blood (Negative) Ur Leukocyte Esterase (Negative) Urine RBC (0-5) /hpf Urine WBC (0-5) /hpf Urine WBC Clumps (None) /hpf Urine Bacteria (None) /hpf Hyaline Casts (0-2) /lpf 11/27/23 11/27/23 11/28/23 Range/Units 18:26 20:36 06:21 POC Glucose (mg/dL) 222 H 131 H (70-110) mg/dL Plasma Lactic Acid Bryan 2.1 H* (0.7-2.0) mmol/L Troponin I (0.000-0.034) ng/mL Urine Protein (Negative) Urine Blood (Negative) Ur Leukocyte Esterase (Negative) Urine RBC (0-5) /hpf Urine WBC (0-5) /hpf Urine WBC Clumps (None) /hpf Urine Bacteria (None) /hpf Hyaline Casts (0-2) /lpf 11/28/23 11/28/23 Range/Units 11:21 13:04 POC Glucose (mg/dL) 160 H (70-110) mg/dL Plasma Lactic Acid Bryan (0.7-2.0) mmol/L Troponin I (0.000-0.034) ng/mL Urine Protein 1+ H (Negative) Urine Blood Moderate H (Negative) Ur Leukocyte Esterase Large H (Negative) Urine RBC 47 H (0-5) /hpf Urine WBC >182 H (0-5) /hpf Urine WBC Clumps Many H (None) /hpf Urine Bacteria Many H (None) /hpf Hyaline Casts 10 H (0-2) /lpf
[2023-11-28] MEDS: DILTIAZEM 125 MG in SODIUM CHLORIDE 0.9% 100 ML IV SCH (16:08)
[2023-11-28] MEDS: DILTIAZEM DRIP BOLUS FROM BAG 1 MG SOLN IV ONE (16:09)
[2023-11-28 16:27] LABS: Glucose,Whole Blood 168 mg/dL (70-110)
--- NOTE | 2023-11-28 16:52 | P.CONS ---
History of Present Illness - Reason for Consult Consult date: 11/28/23 urothelial carcinoma Requesting physician: Jenniffer Apple - Chief Complaint weakness, FTT - History of Present Illness Patient is a 73 year old male with a significant hx of metastatic urothelial carcinoma. He is a patient of Dr. Banda. He initially presented with gross hematuria following following start of Plavix after PTCA and coronary stents placement by Dr Pennington in Aug 2019. He was referred to Dr Myers and had cystoscopy on 12/15/19 revealing high-grade urothelial carcinoma. The patient was evaluated by Dr Rosado at [facility] and Cystoscopy and TURBT on 03/03/20 revealing 3X3 cm urothelial carcinoma with Papillary features and clear cell component (20-30%). CT Scan of CAP did not identify systemic disease or gross pelvic lymphadenopathy. He was re-evaluated by Dr Rosado and Dr Beltrán, given option of radical cystectomy V/S concurrent radiation therapy/Chemotherapy, which he opted for. Patient completed concurrent chemo/RT, with cisplatin/taxol in 06/2020. He continued f/u and repeat scans and cystoscopy/biopsies were negative and at last f/u in 11/2021, he was scheduled for repeat CAP and f/u with Dr. Rosado for repeat cystoscopy for 02/2022. He reports scan and scope was negative and then lost f/u with Dr. Rosado due to loss of his insurance and has not had f/u since. Patient was recently admitted to the hospital and was discharged on 08/10 for left sided neck mass, EDITH, and A-fib rvr. Patient reported progressing left neck mass over the last 1 month, with associated loss of appetite. Denied weight loss and night sweats. Biopsy of left neck mass was obtained during that admission revealing metastatic non-small cell carcinoma consistent with metastatic high-grade urothelial carcinoma. He was readmitted with complaints of left upper extremity edema and bilateral lower extremity edema and was treated for CHF and and nonocclusive DVT of internal jugular vein. He has underwent 3 of 5 fractions of palliative RT to left neck mass with Dr. Juarez. Unfortunately, patient has had numerous hospital admission since July and also was in rehab delaying care/treatment. He finally was able to get PET CT on 11/08/23 which revealed abnormal uptake within the soft tissues including the left neck, left medial shoulder, and proximal left paraspinal region and upper thorax. With suspicion of some abnormal uptake within the posterior wall urinary bladder. We recommended patient be started on immunotherapy with Tecentriq and was scheduled for his first cycle on 11/19/23. Unfortunately peripheral access was not able to be obtained and stat referral was sent for port placement. Patient represented to the ER for progressing weakness and failure to thrive. Patient is confused at today's visit and is providing history. states patient has been experiencing progressing weakness and is unable to ambulate or stand on his own for the last couple months. She also reports worsening dysphagia and decreased oral intake over the last couple days. She also noted increasing confusion and irritability x 2-3 days. Denies nausea, vomiting, diarrhea. Denies fever and chills. Reports patient has been picking at wound on upper chest s/p XRT which has caused wound to worsen and bleed. On admission chest x-ray revealed moderate left pleural effusion which is increased from prior exam. Ultrasound of chest revealed left pleural effusion pocket measuring 10.0 cm. Viral testing, showed positive COVID infection. CBC reviewed, WBC 8 .5, hemoglobin 9.8, platelets 309,000. Creatinine 3.47, GFR 17. LFTs and bilirubin normal. BNP 5590. Lactic acid 2.7. Patient afebrile Review of Systems 10 point ROS is negative except as stated in the HPI Past Medical History Past Medical History: Coronary Artery Disease (CAD), Cancer, Diabetes Mellitus, Hyperlipidemia, Hypertension, Myocardial Infarction (MT), Osteoarthritis (OA) Additional Past Medical History / Comment(s): Bladder cancer stage with treatment, in remission since 2020. IDDM type II, post polio syndrome,leg length discrepancy, bronchitis, chronic low back pain. Last Myocardial Infarction Date:: 07/23/19 History of Any Multi-Drug Resistant Organisms: None Reported Past Surgical History: Heart Catheterization With Stent, Orthopedic Surgery Additional Past Surgical History / Comment(s): Cystoscopy, TURBT x2, closure of patent urachus bladder tumor as infant, R leg surgery d/t polio-lengthening, cardiac stents 2018; Right hip surgery 11/03/2022 Past Anesthesia/Blood Transfusion Reactions: No Reported Reaction Date of Last Stent Placement:: 07/23/19 Past Psychological History: No Psychological Hx Reported Smoking Status: Former smoker Past Alcohol Use History: None Reported Past Drug Use History: None Reported - Past Family History Father History Unknown: Yes Mother Additional Family Medical History / Comment(s): Mother of in a MVA when pt was 15 yrs old. Brother(s) Additional Family Medical History / Comment(s): Pt has one brother who of a bowel problem and another brother that of a ruptured aneurysm. Medications and Allergies Home Medications Medication Instructions Recorded Confirmed Type Aspirin 81 mg PO DAILY #90 chewable 07/25/19 11/27/23 Rx Atorvastatin [Lipitor] 80 mg PO DAILY 05/13/20 11/27/23 History Liraglutide [Victoza 3-Sam] 1.8 mg SQ DAILY 08/04/23 11/27/23 History Apixaban [Eliquis] 5 mg PO BID #60 tab 08/10/23 11/27/23 Rx Magnesium Oxide [Mag-Ox] 400 mg PO DAILY #30 tab 08/10/23 11/27/23 Rx Metoprolol Tartrate [Lopressor] 50 mg PO BID #60 tab 08/10/23 11/27/23 Rx Albuterol Sulfate [Albuterol 2 puff INHALATION RT-Q6H PRN 08/17/23 11/27/23 History Sulfate Hfa] Loratadine [Claritin] 5 mg PO DAILY #30 tab 08/31/23 11/27/23 Rx Tamsulosin [Flomax] 0.4 mg PO DAILY #30 cap 08/31/23 11/27/23 Rx Budesonide/Formoterol Fumarate 2 puff INHALATION RT-BID 09/06/23 11/27/23 Histo ry [Symbicort 80-4.5 Mcg Inhaler] Ipratropium-Albuterol Nebulize 3 ml INHALATION RT-QID 09/06/23 11/27/23 History [Duoneb 0.5 mg-3 mg/3 ml Soln] Pantoprazole [Protonix] 40 mg PO AC-BID@0800,1700 09/06/23 11/27/23 History Furosemide [Lasix] 80 mg PO BID@0900,1600 #60 tab 09/11/23 11/27/23 Rx Acetaminophen [Tylenol 8 Hour] 650 mg PO Q8H PRN 10/09/23 11/27/23 History Calcium Carbonate [Tums] 500 mg PO PC-TID 10/09/23 11/27/23 History Cholecalciferol [Vitamin D3 (25 50 mcg PO DAILY 10/09/23 11/27/23 History Mcg = 1000 Iu)] Lactulose [Cephulac] 20 gm PO DAILY 10/09/23 11/27/23 History Ascorbic Acid [Vitamin C] 500 mg PO DAILY tab 10/13/23 11/27/23 Rx Zinc Sulfate [Orazinc] 220 mg PO DAILY cap 10/13/23 11/27/23 Rx amLODIPine [Norvasc] 5 mg PO DAILY #1 tab 10/16/23 11/27/23 Rx HYDROcodone/APAP 7.5-325MG [[place] 1 tab PO Q4H PRN 11/27/23 11/27/23 History 7.5-325] Levothyroxine Sodium [Synthroid] 50 mcg PO DAILY 11/27/23 11/27/23 History Morphine Sulfate [Barb] 30 mg PO Q12H 11/27/23 11/27/23 History Ondansetron [Zofran] 4 mg PO Q4H PRN 11/27/23 11/27/23 History SILVER sulfADIAZINE CREAM 1 applic TOPICAL DAILY 11/27/23 11/27/23 History [Silvadene Cream] Sennosides [Senokot] 8.6 mg PO BID 11/27/23 11/27/23 History Allergies Allergy/AdvReac Type Severity Reaction Status Date / Time No Known Allergies Allergy Verified 11/27/23 15:25 Physical Exam Vitals: Vital Signs Temp Pulse Pulse Resp BP BP Pulse Ox 11/28/23 12:00 98.3 F 92 20 149/49 97 11/28/23 08:00 97.8 F 92 20 142/59 96 11/28/23 04:00 98 24 108/51 95 11/28/23 02:00 96 11/28/23 00:00 98.5 F 96 22 134/51 93 L 11/27/23 20:00 99.1 F 110 H 24 141/55 96 11/27/23 16:55 110 H 30 H 127/56 94 L 11/27/23 16:23 98.9 F 105 H 16 134/94 97 11/27/23 15:27 95 11/27/23 14:30 105 H 20 104/52 95 Intake and Output 11/27/23 11/28/2311/28/24 22:59 06:59 14:59 Output Total 0 100 Balance 0 -100 Output: Urine 0 100 Other: Voiding Method External Catheter External Catheter Incontinent # Voids 3 Weight 74.843 kg 74.843 kg - Constitutional General appearance: mild distress - EENT left sided orbital/facial edema noted - Neck left sided edema noted with skin changes r/t XRT - Respiratory Respiratory: bilateral: diminished - Cardiovascular Rhythm: regular leg Peripheral Edema: bilateral: Other (BUE edema, Left greater than right. BLE edema ) - Gastrointestinal General gastrointestinal: soft, no tenderness - Integumentary radiation induced dermatitis noted to neck, with possible necrosis to large wound on upper chest/lower neck, mild bleeding noted Integumentary: no cyanotic, no jaundiced - Neurologic confused - Musculoskeletal Musculoskeletal: generalized weakness - Psychiatric agitated Results CBC & Chem 7: 11/27/23 11:56 11/27/23 11:56 Labs: Abnormal Lab Results - Last 24 Hours (Table) 11/27/23 11/27/23 11/27/23 Range/Units 15:13 16:47 17:57 POC Glucose (mg/dL) 245 H (70-110) mg/dL Plasma Lactic Acid Bryan 3.0 H* (0.7-2.0) mmol/L Troponin I 0.064 H* (0.000-0.034) ng/mL Urine Protein (Negative) Urine Blood (Negative) Ur Leukocyte Esterase (Negative) Urine RBC (0-5) /hpf Urine WBC (0-5) /hpf Urine WBC Clumps (None) /hpf Urine Bacteria (None) /hpf Hyaline Casts (0-2) /lpf 11/27/23 11/27/23 11/28/23 Range/Units 18:26 20:36 06:21 POC Glucose (mg/dL) 222 H 131 H (70-110) mg/dL Plasma Lactic Acid Bryan 2.1 H* (0.7-2.0) mmol/L Troponin I (0.000-0.034) ng/mL Urine Protein (Negative) Urine Blood (Negative) Ur Leukocyte Esterase (Negative) Urine RBC (0-5) /hpf Urine WBC (0-5) /hpf Urine WBC Clumps (None) /hpf Urine Bacteria (None) /hpf Hyaline Casts (0-2) /lpf 11/28/23 11/28/23 Range/Units 11:21 13:04 POC Glucose (mg/dL) 160 H (70-110) mg/dL Plasma Lactic Acid Bryan (0.7-2.0) mmol/L Troponin I (0.000-0.034) ng/mL Urine Protein 1+ H (Negative) Urine Blood Moderate H (Negative) Ur Leukocyte Esterase Large H (Negative) Urine RBC 47 H (0-5) /hpf Urine WBC >182 H (0-5) /hpf Urine WBC Clumps Many H (None) /hpf Urine Bacteria Many H (None) /hpf Hyaline Casts 10 H (0-2) /lpf Comments: chest ultrasound and PET/CT reviewed Chest x-ray: report reviewed CT Scan - head: report reviewed Assessment and Plan (1) Malignant neoplasm metastatic from bladder Current Visit: Yes Status: Acute Priority: High Code(s): C67.9 - MALIGNANT NEOPLASM OF BLADDER, UNSPECIFIED SNOMED Code(s): 83426313 (2) Weakness Current Visit: Yes Status: Acute Priority: Medium Code(s): R53.1 - WEAKNESS SNOMED Code(s): 35746501 (3) COVID Current Visit: Yes Status: Acute Priority: High Code(s): U07.1 - COVID-19 SNOMED Code(s): 019408566 (4) Acute kidney injury Current Visit: Yes Status: Acute Priority: High Code(s): N17.9 - ACUTE KIDNEY FAILURE, UNSPECIFIED SNOMED Code(s): 05723640 Plan: Acute on chronic kidney disease -Creatinine 3.47, GFR 17. -Likely related to dehydration as oral intake has been significantly decreased. Agree with hydration -Defer to admitting team for management COVID: -Tested positive for same 6 weeks ago, possible reinfection vs same infection Dysphagia: -Significant decrease in oral intake due to inability to swallow over the last 2-3 days. Concern for stricture due to mass/XRT -Will consult general surgery for evaluation for EGD -Dobhoff feeding tube ordered by IM team -Speech therapy consulted Confusion: - Worsening x 2-3 days per spouse - CT brain ordered revealing no acute intracranial processes - Infectious workup ordered. CXR showed moderate left pleural effusion. UA suspicious for UTI. Rocephin started - Urine and blood cultures pending Metastatic Urothelial carcinoma: -Full history stated in HPI. -Biopsy of left neck mass revealed metastatic non-small cell carcinoma consistent with metastatic high-grade urothelial carcinoma. He has underwent 3 of 5 fractions of palliative RT to left neck mass with Dr. Juarez. Unfortunately, patient has had numerous hospital admissions since July and also was in rehab delaying care/treatment. He finally was able to get PET CT on 11/08/23 which revealed abnormal uptake within the soft tissues including the left neck, left medial shoulder, and proximal left paraspinal region and upper thorax. With suspicion of some abnormal uptake within the posterior wall urinary bladder. -We recommended patient be started on immunotherapy with Tecentriq and was scheduled for his first cycle on 11/19/23. Unfortunately peripheral access was not able to be obtained and stat referral was sent for port placement, but has yet to be obtained. Have spoken to general surgery team to evaluate patient for port placement while inpt. If not able to be placed, will likely need to obtain PICC line -Unfortunately treatment will again have to be delayed until patient acutely recovers and we can improve his PS -Will consult wound care for radiation induced dermatitis/necrosis of upper ch est and neck attests: I have seen and examined patient, performed H&P, developed i mpression and plan of care. Discussed with dictator. Agree with documentation, dictated as a scribe
--- NOTE | 2023-11-28 19:32 | P.PN ---
Progress Note - Text Progress Note Date: 11/28/23 Chief Complaint: Increasing confusion Patient is a 73-year-old with a known history of metastatic high-grade urothelial carcinoma status post left neck mass lymph node biopsy, urothelial cancer status post chemo/RT in 06/2020, coronary artery disease with history of stent placement, chronic HFpEF, CKD stage IIIb with baseline creatinine level 1.5-1.7, diabetic nephropathy, diabetes type 2 insulin-dependent, hypertension, osteoarthritis, chronic low back pain, prior history of smoking left upper extremity DVT diagnosed in July 2023 and is on Eliquis. In September 2023 was detected with COVID-19. October 17, 2023 was discharged to rehab. On 27 October 2023 patient was brought home. Otherwise he would not be able to get treatment for his underlying cancer. Patient in July did get radiation treatment 3 out of 5. With changes on the skin now. Patient was due to get immunotherapy last week but because of difficult IV access unable to get the same. Port could not be placed because area of radiation in the chest is rather angry appearing as patient has been scratching the same. In the last 2 days patient is becoming increasingly confused. Unable to get around at all. Decreased appetite. No fever reported. Increasing shortness of breath. Patient tested positive for COVID-19. Some lactic acidosis. Worsening of renal function. Patient's at the bedside is able to give the history. Patient himself is rather delirious. November 28: A bit less delirious. Following some commands. at the bedside. Discussed with Dr. Tsai. Will need tube feeding. NG tube difficult because of patient's facial swelling. Later decision made to proceed with the PEG tube feeding. Continue with IV fluids. IV ceftriaxone. Left side of the face still swollen. Active Medications Acetaminophen (Acetaminophen Tab 325 Mg Tab) 650 mg PO Q6HR PRN PRN Reason: Mild Pain or Fever > 100.5 Acetaminophen (Acetaminophen Tab 325 Mg Tab) 650 mg PO Q8H PRN PRN Reason: Pain Hydrocodone Bitart/Acetaminophen (Hydrocodone/Apap 5-325mg 1 Each Tab) 1 each PO Q4HR PRN PRN Reason: Moderate Pain (Scale 4 to 6) Albuterol Sulfate (Albuterol Hfa Inhaler) 2 puff INHALATION RT-Q6H PRN PRN Reason: Wheezing Aspirin (Aspirin 81 Mg) 81 mg PO DAILY [facility] Last Admin: 11/28/23 08:59 Dose: Not Given Atorvastatin Calcium (Atorvastatin 80 Mg Tab) 80 mg PO DAILY [facility] Last Admin: 11/28/23 08:59 Dose: Not Given Budesonide/Formoterol Fumarate (Symbicort 80-4.5 Mcg Inhaler) 2 puff INHALATION RT-BID [facility] Last Admin: 11/28/23 08:06 Dose: Not Given Dexamethasone Sodium Phosphate (Dexamethasone Sod Phosphate 10 Mg/Ml 1 Ml Vial) 6 mg IVP BID [facility] Last Admin: 11/28/23 08:57 Dose: 6 mg Dextrose/Water (Dextrose 50% Syringe 50 Ml) 25 ml IVP PER PROTOCOL PRN; Protocol PRN Reason: Hypoglycemia Dextrose/Water (Dextrose 50% Syringe 50 Ml) 50 ml IVP PER PROTOCOL PRN; Protocol PRN Reason: Hypoglycemia Sodium Chloride (Saline 0.45%) 1,000 mls @ 75 mls/hr IV .[id number] [facility] Last Admin: 11/28/23 12:17 Dose: 75 mls/hr Ceftriaxone Sodium 2 gm/ (Sodium Chloride) 50 mls @ 100 mls/hr IVPB Q24HR [facility]; Protocol Last Admin: 11/28/23 17:03 Dose: 100 mls/hr Diltiazem HCl 125 mg/ Sodium (Chloride) 125 mls @ 10 mls/hr IV .[id number] [facility] Last Admin: 11/28/23 16:08 Dose: 10 mg/hr, 10 mls/hr Insulin Aspart (Insulin Aspart (Novolog) 100 Unit/Ml Vial) 0 unit SQ AC-TID [facility]; Protocol Last Admin: 11/28/23 17:03 Dose: 2 unit Insulin Detemir (Insulin Detemir (Levemir) 100 Unit/Ml Syr) 20 unit SQ HS [facility] Last Admin: 11/27/23 20:53 Dose: 20 unit Levothyroxine Sodium (Levothyroxine 50 Mcg Tab) 50 mcg PO DAILY@0630 [facility] Last Admin: 11/28/23 05:01 Dose: Not Given Metoprolol Tartrate (Metoprolol Tartrate 25 Mg Tab) 25 mg PO BID [facility] Last Admin: 11/28/23 09:00 Dose: Not Given Morphine Sulfate (Morphine Sulfate 4 Mg/Ml Syringe) 4 mg IV Q4HR PRN PRN Reason: Severe Pain (Scale 7 to 10) Last Admin: 11/28/23 14:16 Dose: 4 mg Naloxone HCl (Naloxone 0.4 Mg/Ml 1 Ml Vial) 0.2 mg IV Q2M PRN PRN Reason: Opioid Reversal Liraglutide [Victoza 3-Sam] 0.6 Mg/0.1 Ml Ml 1.8 mg SQ DAILY [facility] Last Admin: 11/28/23 09:00 Dose: Not Given Ondansetron HCl (Ondansetron 4 Mg/2 Ml Vial) 4 mg IVP Q8HR PRN PRN Reason: Nausea And Vomiting Pantoprazole Sodium (Pantoprazole 40 Mg Tablet) 40 mg PO AC-BID@0800,1700 [facility] Last Admin: 11/28/23 16:57 Dose: Not Given Tamsulosin HCl (Tamsulosin 0.4 Mg Cap.Er.24h) 0.4 mg PO DAILY [facility] Last Admin: 11/28/23 09:00 Dose: Not Given Social history: Used to work in a [employer]. . 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 Patient Smoked for 50 Years Stopped in 2019. Drinking Excessive Alcohol up to 2019. On examination: VITAL SIGNS: 98.3, 92, 20, 149 x 49, 97% on 4 L GENERAL: In bed, still delirious but less so. Some redness tenderness with some crusting upper chest.-Area of previous radiation EYES: Pupils equal. Conjunctiva normal. HEENT: Left side of the face rather swollen., oral cavity grossly normal. NECK: JVD normal; masses not palpable. Hard mass of the left upper neck going to the mandible. Hard. HEART: Heart sounds irregular; edema present LUNGS: Respiratory rate increased; decreased breath sounds. ABDOMEN: Soft, nontender, liver spleen not palpable, no masses palpable. PSYCH: Unable to assess. Remains delirious l EXTREMITY: Left upper extremity swelling MUSCULOSKELETAL:No Clubbing/cyanosis;muscles-grossly intact. OA NEUROLOGICAL: Some facial asymmetry secondary to left neck mass. Otherwise cranial nerves grossly intact. Moving all 4 limbs INVESTIGATIONS, reviewed in the clinical context: November 27: White count 8.5 hemoglobin 9.8 platelets 309 sodium 143 potassium 4.5 BUN 107 creatinine 3.47 lactic acid 2.7 phosphorus 5.7 troponin I 0.053 COVID-19 PCR: Detected EKG tracing personally reviewed by me-sinus tachycardia. Nonspecific ST-T wave changes. Chest x-ray film personally reviewed by me-large left pleural effusion. Assessment and plan: -Acute COVID-19 pneumonia,. Patient was positive for the same during September. PCR can be positive for few weeks. Possibility of new infection. Dexamethasone 6 mg IV every 12 -Possible left basilar/atelectasis/pleural effusion. Seen by Dr. Tsai from pulmonary. [place] to be chronic. On previous CT scan. -Acute metabolic encephalopathy, with delirium multifactorial: Slow to respond -Metastatic urothelial carcinoma: -Completed treatment with concurrent chemo/RT in 06/2020. Was following up for observation in clinic through 11/2021 with no evidence of recurrence. Stopped f/u with urology in February 2022 due to insurance reasons, and has not had f/u since -Progressing left neck mass. Biopsy of the lt neck mass revealed metastatic non- small cell carcinoma consistent with metastatic high-grade urothelial carcinoma. Radiation treatment. In . [address] Patsy Banda-oncologist. Patient was due to get immunotherapy. But because of poor IV access could not get the same. Port could not be placed because of skin inflammation from radiation/scratching. -Acute hypoxic respiratory failure secondary to Covid 19: 2 L nasal cannula -Chronic hypoxic respiratory failure Baseline 2 L nasal cannula -Chronic CHF exacerbation with preserved ejection fraction EF 50-55%: Better -Acute kidney injury likely ATN multifactorial. Creatinine is up from baseline. -Left facial swelling possibly from left IJ thrombosis. Previously had superficial venous thrombosis of the left cephalic vein. -Chronic kidney disease likely likely hydronephrosis secondary to cardiorenal syndrome. Along with right-sided hydronephrosis Follow renal function -Coronary artery disease with history of stent 2019 Lipitor, Lopressor -Chronic esophagitis with Otoole's esophagus Protonix -COPD in a prior smoker Ventolin when necessary. Symbicort. 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 Superficial thrombosis within the left cephalic vein. Eliquis Sleeve left upper extremity Followed by Dr. Montalvo from vascular. -Hyperlipidemia Lipitor -Diabetes type 2 insulin-dependent A1c 8.3, uncontrolled with hyperglycemia, secondary to steroids Lantus 20 units daily at bedtime. Accu-Cheks with sliding scale -Hypothyroid Synthroid 25 -BPH Flomax -Full code Discussed with Dr. Tsai and the at length. Prognosis guarded. For tube feeding. NG tube difficult to place. Hence for PEG tube feeding for surgery. Further treatment as per clinical course. Past Medical History Past Medical History: Coronary Artery Disease (CAD), Cancer, Diabetes Mellitus, Hyperlipidemia, Hypertension, Myocardial Infarction ([place]), Osteoarthritis (OA) Additional Past Medical History / Comment(s): Bladder cancer stage with treatment, in remission since 2020. IDDM type II, post polio syndrome,leg length discrepancy, bronchitis, chronic low back pain. 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 He is confused and restless orientated to person only. Smoking Status: Former smoker Past Alcohol Use History: None Reported Additional Past Alcohol Use History / Comment(s): Pt started smoking in 1968 and quit 07/21/19. Prior ETOH abuse-pt states he hasnt had alcohol in months Past Drug Use History: None Reported
[2023-11-28 20:23] LABS: Glucose,Whole Blood 139 mg/dL (70-110)
[2023-11-29 06:14] LABS: Glucose,Whole Blood 223 mg/dL (70-110)
[2023-11-29] MEDS: DEXTROSE 5% IN WATER 100 ML with AMIODARONE 150 MG IV ONE (09:17)
--- NOTE | 2023-11-29 09:20 | P.CRDCN ---
History of Present Illness History of present illness: HISTORY OF PRESENT ILLNESS: This is a 73-year-old male with a past medical history significant for metastatic urothelial cancer, left neck mass, coronary artery disease with previous stenting, hypertension, hyperlipidemia, valvular heart disease, thrombus of left IJ, and carotid stenosis. Patient follows in the office with Dr. Linda. We have been asked to see the patient in consultation for atrial fibrillation with RVR. Patient examined at the bedside. Patient presented to the emergency room with a chief complaint of weakness and failure to thrive. Patient is unable to swallow. He failed a swallow screen. Plan is for EGD with PEG tube insertion today. His anticoagulation remains on hold. The patient was found to be in A-fib with RVR upon admission to the hospital. He remains in A- fib with RVR. He is currently on a Cardizem drip at 10 mg an hour. DIAGNOSTICS: - EKG reveals A-fib with RVR - Chest xray stable moderate left pleural effusion - Laboratory data: WBC 8.5. Hemoglobin 9.8. Platelet count 309. INR 1.3. Sodium 143. Potassium 4.5. BUN 107. Creatinine 3.47. Troponin 0.053. 0.020. 0.064. proBNP 5590. TSH 3.600. - Current home cardiac medications include amlodipine 5 mg daily, metoprolol tartrate 50 mg twice a day, Lasix 80 mg twice a day, Lipitor 80 mg daily, aspirin 81 mg daily, Eliquis 5 mg twice a day. - Most recent echocardiogram obtained in May 2022 revealed normal ejection fraction with moderate MR - Cardiac catheterization history: 2019 revealing critical disease of the RCA, intermediate disease involving the left circumflex, and intermediate disease involving the ramus intermedius. Patient underwent stenting to the proximal RCA and mid RCA. REVIEW OF SYSTEMS: At the time of my exam: CONSTITUTIONAL: Denies fever or chills. Reports generalized fatigue. HEENT: Denies blurred vision, vision changes, or eye pain. Denies hemoptysis. Reports dysphagia. CARDIOVASCULAR: Denies chest pain. Denies orthopnea. Denies PND. Denies palpitations RESPIRATORY: Denies shortness of breath. GASTROINTESTINAL: Denies abdominal pain. Denies nausea or vomiting. HEMATOLOGIC: Denies bleeding disorders. GENITOURINARY: Denies any blood in urine. SKIN: Denies pruitis. Denies rash. PHYSICAL EXAM: VITAL SIGNS: Reviewed. GENERAL: Well-developed in no acute distress. HEENT: Head is normocephalic. Pupils are equal, round. Sclerae anicteric. Mucous membranes of the mouth are moist. Neck swelling noted. No JVD or thyromegaly LUNGS: Respirations even and unlabored. Lungs essentially clear to auscultation bilaterally. HEART: Tachycardic. Irregular rate and rhythm. S1 and S2 heard. ABDOMEN: Soft. Nondistended. Nontender. EXTREMITIES: Normal range of motion. No clubbing or cyanosis. Peripheral pulses intact. No lower extremity edema NEUROLOGIC: Awake and alert. Oriented x 1 SKIN: Radiation burn noted to chest with swelling noted. ASSESSMENT: Generalized weakness Failure to thrive Dysphagia, patient unable to swallow Covid 19 Urothelial cancer with metastasis to the neck s/p radiation Atrial fibrillation with RVR, appears to be new onset History of left IJ thrombus, on Eliqu outpatient Abnormal troponins, flat, type II [place] Coronary artery disease with previous stenting Valvular heart disease including moderate MR Hypertension Hyperlipidemia PLAN: Obtain 2D echo to assess cardiac structure and function Continue IV Cardizem Begin IV amiodarone bolus and drip per protocol Patient's anticoagulation remains on hold as he is scheduled for EGD and PEG tube placement today Patient is currently NPO. Will resume metoprolol once PEG is placed Further recommendations pending patient course Nurse practitioner note has been reviewed by physician. Signing provider agrees with the documented findings, assessment, and plan of care documented by CERTIFIED PROFESSIONAL CODER as a scribe. Past Medical History Past Medical History: Coronary Artery Disease (CAD), Cancer, Diabetes Mellitus, Hyperlipidemia, Hypertension, Myocardial Infarction ([place]), Osteoarthritis ([place]) Additional Past Medical History / Comment(s): Bladder cancer stage with treatment, in remission since 2020. IDDM type II, post polio syndrome,leg length discrepancy, bronchitis, chronic low back pain. Last Myocardial Infarction Date:: 07/23/19 History of Any Multi-Drug Resistant Organisms: None Reported Past Surgical History: Heart Catheterization With Stent, Orthopedic Surgery Additional Past Surgical History / Comment(s): Cystoscopy, TURBT x2, closure of patent urachus bladder tumor as , R leg surgery d/t polio-lengthening, cardiac stents 2018; Right hip surgery 11/03/2022 Past Anesthesia/Blood Transfusion Reactions: No Reported Reaction Date of Last Stent Placement:: 07/23/19 Past Psychological History: No Psychological Hx Reported Smoking Status: Former smoker Past Alcohol Use History: None Reported Past Drug Use History: None Reported - Past Family History Father History Unknown: Yes Mother Additional Family Medical History / Comment(s): Mother of in a MVA when pt was 15 yrs old. Brother(s) Additional Family Medical History / Comment(s): Pt has one brother who of a bowel problem and another brother that of a ruptured aneurysm. Medications and Allergies Home Medications Medication Instructions Recorded Confirmed Type Aspirin 81 mg PO DAILY #90 chewable 07/25/19 11/27/23 Rx Atorvastatin [Lipitor] 80 mg PO DAILY 05/13/20 11/27/23 History Liraglutide [Victoza 3-Sam] 1.8 mg SQ DAILY 08/04/23 11/27/23 History Apixaban [Eliquis] 5 mg PO BID #60 tab 08/10/23 11/27/23 Rx Magnesium Oxide [Mag-Ox] 400 mg PO DAILY #30 tab 08/10/23 11/27/23 Rx Metoprolol Tartrate [Lopressor] 50 mg PO BID #60 tab 08/10/23 11/27/23 Rx Albuterol Sulfate [Albuterol 2 puff INHALATION RT-Q6H PRN 08/17/23 11/27/23 History Sulfate Hfa] Loratadine [Claritin] 5 mg PO DAILY #30 tab 08/31/23 11/27/23 Rx Tamsulosin [Flomax] 0.4 mg PO DAILY #30 cap 08/31/23 11/27/23 Rx Budesonide/Formoterol Fumarate 2 puff INHALATION RT-BID 09/06/23 11/27/23 History [Symbicort 80-4.5 Mcg Inhaler] Ipratropium-Albuterol Nebulize 3 ml INHALATION RT-QID 09/06/23 11/27/23 History [Duoneb 0.5 mg-3 mg/3 ml Soln] Pantoprazole [Protonix] 40 mg PO AC-BID@0800,1700 09/06/23 11/27/23 History Furosemide [Lasix] 80 mg PO BID@0900,1600 #60 tab 09/11/23 11/27/23 Rx Acetaminophen [Tylenol 8 Hour] 650 mg PO Q8H PRN 10/09/23 11/27/23 History Calcium Carbonate [Tums] 500 mg PO PC-TID 10/09/23 11/27/23 History Cholecalciferol [Vitamin D3 (25 50 mcg PO DAILY 10/09/23 11/27/23 History Mcg = 1000 Iu)] Lactulose [Cephulac] 20 gm PO DAILY 10/09/23 11/27/23 History Ascorbic Acid [Vitamin C] 500 mg PO DAILY tab 10/13/23 11/27/23 Rx Zinc Sulfate [Orazinc] 220 mg PO DAILY cap 10/13/23 11/27/23 Rx amLODIPine [Norvasc] 5 mg PO DAILY #1 tab 10/16/23 11/27/23 Rx HYDROcodone/APAP 7.5-325MG [[place] 1 tab PO Q4H PRN 11/27/23 11/27/23 History 7.5-325] Levothyroxine Sodium [Synthroid] 50 mcg PO DAILY 11/27/23 11/27/23 History Morphine Sulfate [Barb] 30 mg PO Q12H 11/27/23 11/27/23 History Ondansetron [Zofran] 4 mg PO Q4H PRN 11/27/23 11/27/23 History SILVER sulfADIAZINE CREAM 1 applic TOPICAL DAILY 11/27/23 11/27/23 History [Silvadene Cream] Sennosides [Senokot] 8.6 mg PO BID 11/27/23 11/27/23 History Allergies Allergy/AdvReac Type Severity Reaction Status Date / Time No Known Allergies Allergy Verified 11/27/23 15:25 Physical Exam Vitals: Vital Signs Temp Pulse Resp BP Pulse Ox 11/29/23 09:04 92 L 11/29/23 04:00 98.2 F 142 H 141/60 11/29/23 00:00 140 H 90/48 11/28/23 20:00 98 F 134 H 119/64 11/28/23 16:58 111/58 11/28/23 16:19 142 H 102/61 11/28/23 16:16 136 H 89/53 11/28/23 16:15 107/59 11/28/23 16:00 98.1 F 158 H 20 120/61 95 11/28/23 12:00 98.3 F 92 20 149/49 97 Intake and Output 11/28/23 11/29/23 11/29/23 22:59 06:59 14:59 Intake Total 980 125 Balance 980 125 Intake: Intake, IV Titration 980 125 Amount Diltiazem 125 mg In 30 125 Sodium Chloride 0.9% 100 ml @ 10 MG/HR 10 mls/hr IV .[id number] [facility] Rx#: [id number] Sodium Chloride 0.45% 1, 900 000 ml @ 75 mls/hr IV . [id number] [facility] Rx#:[id number] cefTRIAXone 2 gm In 50 Sodium Chloride 0.9% 50 ml @ 100 mls/hr IVPB Q24HR [facility] Rx#:[id number] Oral 0 Other: Voiding Method Incontinent Incontinent Results 11/27/23 11:56 11/27/23 11:56 Current Medications Generic Name Dose Route Start Last Admin Trade Name Freq PRN Reason Stop Dose Admin Acetaminophen 650 mg 11/27/23 14:33 Acetaminophen Tab 325 Mg Tab PO Q6HR PRN Mild Pain or Fever > 100.5 Acetaminophen 650 mg 11/27/23 17:28 Acetaminophen Tab 325 Mg Tab PO Q8H PRN Pain Hydrocodone Bitart/Acetaminophen 1 each 11/27/23 14:33 Hydrocodone/Apap 5-325mg 1 Each Tab PO Q4HR PRN Moderate Pain (Scale 4 to 6) Albuterol Sulfate 2 puff 11/27/23 17:28 Albuterol Hfa Inhaler INHALATION RT-Q6H PRN Wheezing Aspirin 81 mg 11/28/23 09:00 11/29/23 08:42 Aspirin 81 Mg PO Not Given DAILY GURDEEP Atorvastatin Calcium 80 mg 11/28/23 09:00 11/29/23 08:42 Atorvastatin 80 Mg Tab PO Not Given DAILY GURDEEP Budesonide/Formoterol Fumarate 2 puff 11/27/23 20:00 11/29/23 09:02 Symbicort 80-4.5 Mcg Inhaler INHALATION 2 puff RT-BID GURDEEP Administration Dexamethasone Sodium Phosphate 6 mg 11/27/23 17:58 11/29/23 08:45 Dexamethasone Sod Phosphate 10 Mg/Ml 1 Ml Vial IVP 6 mg BID GURDEEP Administration Dextrose/Water 25 ml 11/27/23 18:03 Dextrose 50% Syringe 50 Ml IVP PER PROTOCOL PRN Hypoglycemia Protocol Dextrose/Water 50 ml 11/27/23 18:03 Dextrose 50% Syringe 50 Ml IVP PER PROTOCOL PRN Hypoglycemia Protocol Sodium Chloride 1,000 mls @ 75 mls/hr 11/27/23 18:15 11/28/23 21:51 Saline 0.45% IV 75 mls/hr .[id number] GURDEEP Administration Ceftriaxone Sodium 2 gm/ 50 mls @ 100 mls/hr 11/28/23 15:00 11/29/23 08:45 Sodium Chloride IVPB 100 mls/hr Q24HR GURDEEP Administration Protocol Diltiazem HCl 125 mg/ Sodium 125 mls @ 10 mls/hr 11/28/23 16:00 11/29/23 06:14 Chloride IV 10 mg/hr .[id number] GURDEEP 10 mls/hr Administration 10 MG/HR Amiodarone HCl 360 mg/ 200 mls @ 33.333 mls/hr 11/29/23 08:12 Dextrose/Water IV 11/29/23 14:11 .Q6H ONE Protocol 1 MG/MIN Amiodarone HCl 450 mg/ 250 mls @ 16.667 mls/hr 11/29/23 14:11 Dextrose/Water IV 11/30/23 08:10 .Q15H GURDEEP Protocol 0.5 MG/MIN Insulin Aspart 0 unit 11/27/23 18:03 11/29/23 06:15 Insulin Aspart (Novolog) 100 Unit/Ml Vial SQ 4 unit AC-TID GURDEEP Administration Protocol Insulin Detemir 20 unit 11/27/23 21:00 11/28/23 20:45 Insulin Detemir (Levemir) 100 Unit/Ml Syr SQ Not Given HS [facility] Levothyroxine Sodium 50 mcg 11/28/23 06:30 11/29/23 05:25 Levothyroxine 50 Mcg Tab PO Not Given DAILY@0630 [facility] Metoprolol Tartrate 50 mg 11/29/23 09:00 Metoprolol Tartrate 50 Mg Tab PO BID [facility] Morphine Sulfate 4 mg 11/27/23 14:33 11/29/23 08:53 Morphine Sulfate 4 Mg/Ml Syringe IV 4 mg Q4HR PRN Administration Severe Pain (Scale 7 to 10) Naloxone HCl 0.2 mg 11/27/23 14:33 Naloxone 0.4 Mg/Ml 1 Ml Vial IV Q2M PRN Opioid Reversal Liraglutide [Victoza 1.8 mg 11/28/23 09:00 11/29/23 08:42 3-Sam] 0.6 Mg/0.1 SQ Not Given Ml Ml DAILY GURDEEP Ondansetron HCl 4 mg 11/27/23 14:33 Ondansetron 4 Mg/2 Ml Vial IVP Q8HR PRN Nausea And Vomiting Pantoprazole Sodium 40 mg 11/28/23 08:00 11/29/23 08:42 Pantoprazole 40 Mg Tablet PO Not Given AC-BID@0800,1700 [facility] Tamsulosin HCl 0.4 mg 11/28/23 09:00 11/28/23 09:00 Tamsulosin 0.4 Mg Cap.Er.24h PO Not Given DAILY GURDEEP Intake and Output 11/28/23 11/29/23 11/29/23 22:59 06:59 14:59 Intake Total 980 125 Balance 980 125 Intake: Intake, IV Titration 980 125 Amount Diltiazem 125 mg In 30 125 Sodium Chloride 0.9% 100 ml @ 10 MG/HR 10 mls/hr IV .[id number] [facility] Rx#: [id number] Sodium Chloride 0.45% 1, 900 000 ml @ 75 mls/hr IV . [id number] [facility] Rx#:[id number] cefTRIAXone 2 gm In 50 Sodium Chloride 0.9% 50 ml @ 100 mls/hr IVPB Q24HR [facility] Rx#:[id number] Oral 0 Other: Voiding Method Incontinent Incontinent 11/27/23 11:56 11/27/23 11:56
[2023-11-29] MEDS: AMIODARONE 360 MG in DEXTROSE 5% IN WATER 200 ML IV ONE (09:31)
[2023-11-29] MEDS ORDERED: HEPARIN SODIUM 1,000 UN/ML (10ML VL) IV PRN (10:06)
[2023-11-29] MEDS: METOPROLOL TARTRATE 50 MG TAB PO SCH (10:45)
--- NOTE | 2023-11-29 11:02 | CA ---
Transthoracic Echo Report Name: Dru Valverde Age: 73 Gender: M : 1950 Exam Date: 11/29/2023 08:19 Exam Location: [facility] Ht (in): 65 Wt (lb): 165 Ordering Physician: Agapito Soto MD ([id number]) Attending/Referring Phys: [employer] Sales Person Rosie Nichols RDCS Procedure CPT: Indications: LV function Cardiac Hx: Technical Quality: Very technically difficult study Contrast 1: Total Dose (mL): Contrast 2: Total Dose (mL): MEASUREMENTS (Male / Female) Normal Values 2D ECHO LV Diastolic Diameter PLAX 3.7 cm 4.2 - 5.9 / 3.9 - 5.3 cm LV Systolic Diameter PLAX 3.3 cm IVS Diastolic Thickness 1.2 cm 0.6 - 1.0 / 0.6 - 0.9 cm LVPW Diastolic Thickness 0.7 cm 0.6 - 1.0 / 0.6 - 0.9 cm LV Relative Wall Thickness 0.5 FINDINGS Left Ventricle Mildly increased septal wall thickness. Left ventricular ejection fraction is estimated at 40 -45 %. Right Ventricle Right ventricle not well visualized. Right Atrium Right atrium not well visualized. Left Atrium Left atrium not well visualized. Mitral Valve Mitral annular calcification. Aortic Valve Aortic valve not well visualized. Tricuspid Valve Tricuspid valve not well visualized. Pulmonic Valve Pulmonic valve not well visualized. Pericardium No pericardial effusion. Aorta CONCLUSIONS Limited echo. Technically difficult study. Very limited study with probable moderate global hypokinesis No Doppler study was obtained Previewed by: Dr. Davi Jones MD (Electronically Signed) Final Date: 29 November 2023 11:01
[2023-11-29 11:46] LABS: Glucose,Whole Blood 269 mg/dL (70-110)
[2023-11-29 11:57] LABS: INR 1.1 (<1.2); Partial Thromboplastin Time 25.3 sec (22.0-30.0); Prothrombin Time 12.3 sec (10.0-12.5)
[2023-11-29 11:58] LABS: African American GFR (CKD) 17 (>60 ml/min/1.73 sqM); Anion Gap 18 mmol/L; Calcium 7.6 mg/dL (8.4-10.2); Carbon Dioxide 13 mmol/L (22-30); Chloride 111 mmol/L (98-107); Glucose 266 mg/dL (74-99); Non-African American GFR(CKD) 15 (>60 ml/min/1.73 sqM); Potassium 5.1 mmol/L (3.5-5.1); Sodium 142 mmol/L (137-145)
[2023-11-29 12:05] LABS: Blood Urea Nitrogen 118 mg/dL (9-20)
--- NOTE | 2023-11-29 12:07 | P.CONS ---
History of Present Illness - Reason for Consult Consult date: 11/29/23 wound care - History of Present Illness This is a 73-year-old patient with past medical history significant for lung cancer, prostate cancer, malignancy to throat. Previous radiation to the chest. And confusion. Patient has a radiation burn to his anterior chest resulting in open ulcerations that are draining. Ulceration has significant amount of serous drainage. Ulceration is a cluster of 3 measuring approximately 4 x 6 x 0.2 cm the wound bed has significant amount of slough and nonviable tissue no granulation noted within the wound bed. Wound edges are attached to the wound base there is no tunneling or undermining noted. Review Of Systems: Constitutional: No fever, no chills, no night sweats. No weight change. No weakness, fatigue or lethargy. No daytime sleepiness. Integumentary:reports wounds, no lesions. No rash or pruritus. No unusual bruising. No change in hair or nails. Physical exam: General Appearance: Alert, cooperative, no distress, appears stated age. Skin: See HPI all other Skin color, texture, tugor normal, no rashes or lesions. Neurologic: Alert oriented x3 Assessment 1. Nonhealing ulceration with fat layer exposed other site. 2. Radionecrosis of skin Plan: 1. Apply honey gel, dry gauze, Tegaderm change Sunday. Thank you for the consultation any questions please contact the wound care center DNP note has been reviewed and discussed with Dr. Waddell and the impression and plan of care has been directed as dictated. Past Medical History Past Medical History: Coronary Artery Disease (CAD), Cancer, Diabetes Mellitus, Hyperlipidemia, Hypertension, Myocardial Infarction ([place]), Osteoarthritis ([place]) Additional Past Medical History / Comment(s): Bladder cancer stage with treatment, in remission since 2020. IDDM type II, post polio syndrome,leg length discrepancy, bronchitis, chronic low back pain. Last Myocardial Infarction Date:: 07/23/19 History of Any Multi-Drug Resistant Organisms: None Reported Past Surgical History: Heart Catheterization With Stent, Orthopedic Surgery Additional Past Surgical History / Comment(s): Cystoscopy, TURBT x2, closure of patent urachus bladder tumor as , R leg surgery d/t polio-lengthening, cardiac stents 2018; Right hip surgery 11/03/2022 Past Anesthesia/Blood Transfusion Reactions: No Reported Reaction Date of Last Stent Placement:: 07/23/19 Past Psychological History: No Psychological Hx Reported Smoking Status: Former smoker Past Alcohol Use History: None Reported Past Drug Use History: None Reported - Past Family History Father History Unknown: Yes Mother Additional Family Medical History / Comment(s): Mother of in a MVA when pt was 15 yrs old. Brother(s) Additional Family Medical History / Comment(s): Pt has one brother who of a bowel problem and another brother that of a ruptured aneurysm. Medications and Allergies Home Medications Medication Instructions Recorded Confirmed Type Aspirin 81 mg PO DAILY #90 chewable 07/25/19 11/27/23 Rx Atorvastatin [Lipitor] 80 mg PO DAILY 05/13/20 11/27/23 History Liraglutide [Victoza 3-Sam] 1.8 mg SQ DAILY 08/04/23 11/27/23 History Apixaban [Eliquis] 5 mg PO BID #60 tab 08/10/23 11/27/23 Rx Magnesium Oxide [Mag-Ox] 400 mg PO DAILY #30 tab 08/10/23 11/27/23 Rx Metoprolol Tartrate [Lopressor] 50 mg PO BID #60 tab 08/10/23 11/27/23 Rx Albuterol Sulfate [Albuterol 2 puff INHALATION RT-Q6H PRN 08/17/23 11/27/23 History Sulfate Hfa] Loratadine [Claritin] 5 mg PO DAILY #30 tab 08/31/23 11/27/23 Rx Tamsulosin [Flomax] 0.4 mg PO DAILY #30 cap 08/31/23 11/27/23 Rx Budesonide/Formoterol Fumarate 2 puff INHALATION RT-BID 09/06/23 11/27/23 History [Symbicort 80-4.5 Mcg Inhaler] Ipratropium-Albuterol Nebulize 3 ml INHALATION RT-QID 09/06/23 11/27/23 History [Duoneb 0.5 mg-3 mg/3 ml Soln] Pantoprazole [Protonix] 40 mg PO AC-BID@0800,1700 09/06/23 11/27/23 History Furosemide [Lasix] 80 mg PO BID@0900,1600 #60 tab 09/11/23 11/27/23 Rx Acetaminophen [Tylenol 8 Hour] 650 mg PO Q8H PRN 10/09/23 11/27/23 History Calcium Carbonate [Tums] 500 mg PO PC-TID 10/09/23 11/27/23 History Cholecalciferol [Vitamin D3 (25 50 mcg PO DAILY 10/09/23 11/27/23 History Mcg = 1000 Iu)] Lactulose [Cephulac] 20 gm PO DAILY 10/09/23 11/27/23 History Ascorbic Acid [Vitamin C] 500 mg PO DAILY tab 10/13/23 11/27/23 Rx Zinc Sulfate [Orazinc] 220 mg PO DAILY cap 10/13/23 11/27/23 Rx amLODIPine [Norvasc] 5 mg PO DAILY #1 tab 10/16/23 11/27/23 Rx HYDROcodone/APAP 7.5-325MG [[place] 1 tab PO Q4H PRN 11/27/23 11/27/23 History 7.5-325] Levothyroxine Sodium [Synthroid] 50 mcg PO DAILY 11/27/23 11/27/23 History Morphine Sulfate [Barb] 30 mg PO Q12H 11/27/23 11/27/23 History Ondansetron [Zofran] 4 mg PO Q4H PRN 11/27/23 11/27/23 History SILVER sulfADIAZINE CREAM 1 applic TOPICAL DAILY 11/27/23 11/27/23 History [Silvadene Cream] Sennosides [Senokot] 8.6 mg PO BID 11/27/23 11/27/23 History Allergies Allergy/AdvReac Type Severity Reaction Status Date / Time No Known Allergies Allergy Verified 11/27/23 15:25 Physical Exam Vitals: Vital Signs Temp Pulse Resp BP Pulse Ox 11/29/23 11:28 98.3 F 131 H 20 103/55 95 11/29/23 09:42 141 H 92/55 11/29/23 09:34 141 H 93/50 11/29/23 09:24 141 H 97/57 11/29/23 09:04 92 L 11/29/23 08:00 98.3 F 142 H 22 95/50 96 11/29/23 04:00 98.2 F 142 H 141/60 11/29/23 00:00 140 H 90/48 11/28/23 20:00 98 F 134 H 119/64 11/28/23 16:58 111/58 11/28/23 16:19 142 H 102/61 11/28/23 16:16 136 H 89/53 11/28/23 16:15 107/59 11/28/23 16:00 98.1 F 158 H 20 120/61 95 11/28/23 12:00 98.3 F 92 20 149/49 97 Intake and Output 11/28/23 11/29/23 11/29/23 22:59 06:59 14:59 Intake Total 980 125 Balance 980 125 Intake: Intake, IV Titration 980 125 Amount Diltiazem 125 mg In 30 125 Sodium Chloride 0.9% 100 ml @ 10 MG/HR 10 mls/hr IV .[id number] [facility] Rx#: [id number] Sodium Chloride 0.45% 1, 900 000 ml @ 75 mls/hr IV . [id number] [facility] Rx#:[id number] cefTRIAXone 2 gm In 50 Sodium Chloride 0.9% 50 ml @ 100 mls/hr IVPB Q24HR [facility] Rx#:[id number] Oral 0 Other: Voiding Method Incontinent Incontinent Incontinent Results CBC & Chem 7: 11/27/23 11:56 11/27/23 11:56 Labs: Abnormal Lab Results - Last 24 Hours (Table) 11/28/23 11/28/23 11/28/23 Range/Units 13:04 16:23 20:21 POC Glucose (mg/dL) 168 H 139 H (70-110) mg/dL Urine Protein 1+ H (Negative) Urine Blood Moderate H (Negative) Ur Leukocyte Esterase Large H (Negative) Urine RBC 47 H (0-5) /hpf Urine WBC >182 H (0-5) /hpf Urine WBC Clumps Many H (None) /hpf Urine Bacteria Many H (None) /hpf Hyaline Casts 10 H (0-2) /lpf 11/29/23 11/29/23 Range/Units 06:12 11:45 POC Glucose (mg/dL) 223 H 269 H (70-110) mg/dL Urine Protein (Negative) Urine Blood (Negative) Ur Leukocyte Esterase (Negative) Urine RBC (0-5) /hpf Urine WBC (0-5) /hpf Urine WBC Clumps (None) /hpf Urine Bacteria (None) /hpf Hyaline Casts (0-2) /lpf Assessment and Plan (1) Non-pressure chronic ulcer of skin of other sites with fat layer exposed Current Visit: Yes Status: Acute Code(s): L98.492 - NON-PRS CHRONIC ULCER OF SKIN OF SITES W FAT LAYER EXPOSED SNOMED Code(s): 49543175 (2) Radionecrosis of skin Current Visit: Yes Status: Acute Code(s): L59.8 - OTH DISRD OF THE SKIN, SUBCU RELATED TO RADIATION; Y84.2 - RADIOLOG PROC/RADIOTHRPY CAUSE ABN REACT/COMPL, W/O MISADVNT SNOMED Code(s): 212398449
[2023-11-29 12:10] LABS: Anisocytosis Slight; HCT 30.5 % (39.0-53.0); HGB 9.6 gm/dL (13.0-17.5); Hypochromasia Marked; MCH 33.9 pg (25.0-35.0); MCHC 31.6 g/dL (31.0-37.0); MCV 107.4 fL (80.0-100.0); Macrocytosis Marked; Platelet Count 308 k/uL (150-450); RBC 2.84 m/uL (4.30-5.90); RDW 16.7 % (11.5-15.5); WBC 13.1 k/uL (3.8-10.6)
[2023-11-29] MEDS ORDERED: METOPROLOL TARTRATE 5 MG/5 ML VIAL IVP PRN (12:52)
--- NOTE | 2023-11-29 12:57 | P.PN ---
Subjective Progress Note Date: 11/29/23 This is a 73-year-old male patient with known history of metastatic urothelial carcinoma of the bladder. The patient is coming into the hospital because of dehydration, generalized weakness, falls and failure to thrive. The has noted significant change in his condition over the past 24 to 48 hours and the patient was also having diminished level of consciousness and he was acting encephalopathic. For that reason, the patient was brought into the hospital. I reviewed the records in regards to his metastatic urothelial cancer. The patient has had previous bladder cancer that was treated with chemoradiation therapy back in 2019. He was lost to follow-up and subsequently in July 2023, the patient was found to have a large neck mass and a biopsy of the neck mass was consistent with metastatic disease. At that point, the patient was referred to medical oncology and radiation oncology. He was given 5 radiation therapy treatments to his chest which resulted into significant amount of radiation induced skin necrosis and damage to his neck. The patient also was found to have facial and left neck and eye swelling and this was attributed to a nonocclusive thrombus in the left internal jugular vein and superficial thrombus in the cephalic veins. The based on that, the patient was unable to complete his radiation therapy. He does have severe radiation-induced dermatitis within open the area of skin necrosis in the mid part of the chest just above the sternum. The patient as such was supposed to start also immunotherapy. Due to failure of a port insertion and IV access, the patient did not receive any radiation therapy. At this point in time, he is having difficulties with swallowing. Unable to have full meals and according to the his oral intake is been quite diminished. He came into the hospital and he is still was found to be positive for COVID-19. Note that he was diagnosed having COVID-19 infection back in September 2023 and since then the test and the PCR turned out to be positive. The chest x-ray showed a moderate size left-sided pleural effusion. This is a new finding as the patient is known to haveA left-sided pleural effusion and this was also seen on a PET/CT that was done on 11/11/2023 that showed abnormal uptake in the soft tissue in the left neck and left medial shoulder and left paraspinal region in the upper thorax. There was also suspicious uptake within the posterior wall of the urinary bladder. Moderate size pleural effusion was also seen that was present. His echocardiogram from 08/07/2023 showed a preserved LV function with an ejection fraction of 50 to 55%. No significant valvular abnormalities. On his labs, the patient was found to have a WBC count of 8.5 with a hemoglobin 9.8 and a platelet count of 309. The BUN was 107 with a creatinine of 3.47 and the patient obviously had a component of an acute kidney injury on top of chronic kidney disease. The sodium was at 143 with a potassium level of 4.5, serum bicarb was at 17, proBNP level was 5590 and the troponin was 0.06. LFTs were normal. As mentioned CO VID-19 testing was still positive. The patient is currently on portable oxygen nasal cannula with a pulse ox of 95%. He is profoundly weak and lethargic at this point. He was started on IV fluid hydration. His comorbid conditions include coronary artery disease with previous coronary stents, diabetes mellitus, hypertension, hyperlipidemia, childhood polio and history of CHF with preserved LV function. On today's evaluation of 11/29/2023, the patient is being seen for a follow-up. The patient remains NPO. Noted the patient was supposed to undergo a PEG tube insertion. However, this procedure has been kept on hold as the patient went into atrial fibrillation with rapid ventricular response. This occurred yesterday afternoon. The patient was started on Cardizem drip and the dose was titrated. There was no response and currently Cardizem running at 10 mg an hour. Subsequently, the patient was started also on amiodarone drip at 1 mg/min. He is currently tachycardic and heart rate is ranging between 130 and 140. His anticoagulation was placed on hold and I suggested putting the patient on IV heparin for the time being. No other significant events overnight. Patient remains NPO. The sodium level is at 142 with a potassium level of 5.1. BUN is 118 with a creatinine of 3.85 which is slightly worse compared to yesterday. Coagulation profile is essentially within normal limits. Hemoglobin at 9.6 with a WBC count of 13.1 and a platelet count of 308. UA was abnormal an d the patient also tested positive for COVID-19 which is an obviously a persistent positive testing since October 2022. In terms of antibiotic coverage, the patient remains on IV Rocephin. Awaiting urine culture results. Objective - Vital Signs Vital signs: Vital Signs Temp 98.3 F 11/29/23 08:00 Pulse 141 H 11/29/23 09:42 Resp 22 11/29/23 08:00 BP 92/55 11/29/23 09:42 Pulse Ox 92 L 11/29/23 09:04 FiO2 Intake & Output 11/28/23 11/29/23 11/29/23 18:59 06:59 18:59 Intake Total 980 125 Output Total 100 Balance 880 125 Weight 74.843 kg Intake: Intake, IV Titration 980 125 Amount Diltiazem 125 mg In 30 125 Sodium Chloride 0.9% 100 ml @ 10 MG/HR 10 mls/hr IV .[id number] [facility] Rx#: [id number] Sodium Chloride 0.45% 1, 900 000 ml @ 75 mls/hr IV . [id number] [facility] Rx#:[id number] cefTRIAXone 2 gm In 50 Sodium Chloride 0.9% 50 ml @ 100 mls/hr IVPB Q24HR [facility] Rx#:[id number] Oral 0 Output: Urine 100 Other: Voiding Method Incontinent Incontinent Incontinent # Voids 3 - Exam GENERAL EXAM: Alert and crying, debilitated, cachectic, with significant left facial, left orbital and left neck swelling. The patient is currently on 4 L of O2 nasal cannula HEAD: Significant facial edema and left periorbital edema. EYES: Normal reaction of pupils, equal size. NOSE: Clear with pink turbinates. THROAT: No erythema or exudates. NECK: Severe pericervical edema, skin is taut and hard with left-sided mass CHEST: Upper chest edema and radiation dermatitis. LUNGS: Equal air entry with no crackles, wheeze, rhonchi or dullness. There is significant upper airway edema, with mild stridor. CVS: Irregular with rapid ventricular response consistent with atrial fibrillation with rapid ventricular response ABDOMEN: No hepatosplenomegaly, active bowel sounds, no guarding or rigidity. SPINE: No scoliosis or deformity SKIN: Upper chest radiation dermatitis/burn/open wound, there is an area of central necrosis with a scab just above the sternum. CENTRAL NERVOUS SYSTEM: Delirious, essentially nonverbal, intermittent spontan eously opens eyes. Does not follow commands. No obvious focal deficits, tone is normal in all 4 extremities. EXTREMITIES: There is significant upper extremity edema, worse on the left. No clubbing, or cyanosis. Peripheral pulses are intact. - Labs CBC & Chem 7: 11/29/23 11:17 11/29/23 11:17 Labs: Abnormal Lab Results - Last 24 Hours (Table) 11/28/23 11/28/23 11/28/23 Range/Units 11:21 13:04 16:23 POC Glucose (mg/dL) 160 H 168 H (70-110) mg/dL Urine Protein 1+ H (Negative) Urine Blood Moderate H (Negative) Ur Leukocyte Esterase Large H (Negative) Urine RBC 47 H (0-5) /hpf Urine WBC >182 H (0-5) /hpf Urine WBC Clumps Many H (None) /hpf Urine Bacteria Many H (None) /hpf Hyaline Casts 10 H (0-2) /lpf 11/28/23 11/29/23 Range/Units 20:21 06:12 POC Glucose (mg/dL) 139 H 223 H (70-110) mg/dL Urine Protein (Negative) Urine Blood (Negative) Ur Leukocyte Esterase (Negative) Urine RBC (0-5) /hpf Urine WBC (0-5) /hpf Urine WBC Clumps (None) /hpf Urine Bacteria (None) /hpf Hyaline Casts (0-2) /lpf Assessment and Plan Plan: Acute hypoxic respiratory failure and the patient is currently on 4 L O2 nasal cannula. Chest x-ray showing a chronic left-sided pleural effusion. Diagnostic thoracentesis not been done. This could be potentially malignant in nature. CHF related pleural effusion cannot be completely ruled out. Nevertheless, this pleural effusion has been present and it was already seen on a previous PET/CT that was done in October 2023. Known history of metastatic urothelial cancer initially treated with chemoradiation therapy back in 2019. Subsequently the patient developed metastatic disease with a large left neck mass. The patient originally underwent a transurethral resection of bladder cancer on 03/03/2020 and he was found to have a 3 cm urothelial carcinoma with papillary features and he opted for concurrent chemotherapy and radiation therapy with a combination of cisplatin and Taxol rather than surgical resection. Failure to thrive and diminished oral intake and significant dehydration Acute on top of chronic kidney injury secondary to above, with interval worsening renal function Dysphagia secondary radiation therapy to the neck Metastatic urothelial carcinoma with a large left neck mass and the patient was treated with radiation therapy this was complicated by severe radiation dermatitis and necrosis Non-anion gap metabolic acidosis secondary to above COVID-19 infection diagnosed in September 2023 and the patient continues to be PCR positive Left facial, orbital and neck swelling related to thrombosis of the left IJ and the patient has also superficial venous thrombosis involving the left cephalic vein Atrial fibrillation with rapid ventricular response, currently on a combination of Cardizem and amiodarone and IV heparin Hypertension Hyperlipidemia Diabetes mellitus type 2 CHF with preserved LV function Coronary artery disease Osteoarthritis Chronic back pain History of childhood polio syndrome Plan Management of A-fib per cardiology. The patient is currently on a Cardizem drip and amiodarone drip. Continue IV heparin Continue metoprolol 50 mg p.o. twice daily Patient remains n.p.o. IV fluids and monitor renal function Will put the PEG tube insertion on hold for now based on his underlying cardiac complications. Titrate oxygen flow to maintain saturation above 90% currently on 4 L Ask radiation oncology to evaluate for significant dermatitis over the skin. May benefit from topical steroids to the skin. The patient was also placed on Decadron. Oncology consultation Prognosis remains poor. Will continue to follow.
[2023-11-29 13:29] LABS: Lymphocytes # (M) 0.13 k/uL (1.0-4.8); Monocytes # (M) 0.66 k/uL (0-1.0); Neutrophils # (M) 12.45 k/uL (1.3-7.7); Neutrophils % (M) 95 %; Nucleated Red Blood Cells 0 /100 WBC (0-0); Total Cells Counted 200
[2023-11-29] MEDS: LACTATED RINGERS 1,000 ML IV ONE (15:05)
[2023-11-29] MEDS ORDERED: ETOMIDATE 2 MG/ML 10 ML VIAL ONE (15:05)
[2023-11-29] MEDS: AMIODARONE 450 MG in DEXTROSE 5% IN WATER 250 ML IV SCH (16:12)
--- NOTE | 2023-11-29 16:27 | P.PCN ---
Date of Procedure: 11/29/23 Procedure(s) Performed: PREOPERATIVE DIAGNOSIS: Malnutrition POSTOPERATIVE DIAGNOSIS: Same PROCEDURE: EGD with PEG tube placement SURGEON: Sivan EBL: Minimal ANESTHESIA: Sedation COMPLICATIONS: None OPERATIVE PROCEDURE: The patient was placed in the supine position on the endoscopy table. The patient was sedated per anesthesia that time. The patient had a large amount of semisolid mucus in the posterior oropharynx at the level of the larynx. This was gradually evacuated using the scope. The Olympus gastroscope was then inserted into the oropharynx and passed under direct visualization to the region of the duodenum. The patient had some food like material in the third portion of the duodenum. This did not appear to be obstructing. The pylorus was widely patent. The stomach was carefully inspected. The stomach was fully insufflated with air. The abdominal wall was inspected. The light was seen shining through the abdominal wall in the left upper quadrant. This site was chosen for PEG tube placement. The area was prepped in the usual sterile fashion. This area was then localized with lidocaine. No air was evident when aspirating while advancing the localizing needle into the stomach until the stomach was reached. A small vertical incision was made using the scalpel. The Seldinger needle was advanced into the lumen of the stomach the wire was advanced. The wire was grasped with an endoscopic snare. The wire was pulled through the oropharynx. The catheter was then threaded over the guidewire and the guidewire and catheter were pulled anteriorly until the hub of the PEG tube catheter was seated against the anterior wall the stomach. The circular bolster was applied and tightened down. The endoscope was then readvanced into the stomach. There was no evidence of any bleeding and there was appropriate tightness on the bolster. The catheter was cut appropriately. The dual port feeding adapter was applied. There was some oozing noted at the exit site. A 3-0 Vicryl stitch was placed on the skin both superior and inferior to the incision site. No further bleeding was seen at that time. DISPOSITION: Stable to recovery room
[2023-11-29 16:35] LABS: Glucose,Whole Blood 228 mg/dL (70-110)
[2023-11-29] MEDS: HEPARIN SOD,PORK IN 0.45% NACL 25,000 UNIT in 0.45% NACL 1 250ML.BAG IV SCH (16:51)
[2023-11-29] MEDS: HEPARIN SODIUM 1,000 UN/ML (10ML VL) IV ONE (16:52)
--- NOTE | 2023-11-29 17:20 | P.PN ---
Subjective Progress Note Date: 11/29/23 At today's visit patient is more alert. Patient has developed A-fib with RVR with rates in the 140s this morning. He was scheduled to undergo EGD/PEG placement today Objective - Vital Signs Vital signs: Vital Signs Temp 98.3 F 11/29/23 11:28 Pulse 131 H 11/29/23 11:28 Resp 20 11/29/23 11:28 BP 103/55 11/29/23 11:28 Pulse Ox 95 11/29/23 11:28 FiO2 Intake & Output 11/28/23 11/29/23 11/29/23 18:59 06:59 18:59 Intake Total 980 125 Output Total 100 Balance 880 125 Weight 74.843 kg Intake: Intake, IV Titration 980 125 Amount Diltiazem 125 mg In 30 125 Sodium Chloride 0.9% 100 ml @ 10 MG/HR 10 mls/hr IV .[id number] [facility] Rx#: [id number] Sodium Chloride 0.45% 1, 900 000 ml @ 75 mls/hr IV . [id number] [facility] Rx#:[id number] cefTRIAXone 2 gm In 50 Sodium Chloride 0.9% 50 ml @ 100 mls/hr IVPB Q24HR [facility] Rx#:[id number] Oral 0 Output: Urine 100 Other: Voiding Method Incontinent Incontinent Incontinent # Voids 3 - Constitutional General appearance: Present: no acute distress - EENT Eyes: Present: anicteric sclerae ENT: Present: hearing grossly normal - Respiratory Details: breathing is even and unlabored - Cardiovascular Details: skin warm and dry - Peripheral edema leg Peripheral Edema: bilateral: Other (BUE and BLE edema) - Gastrointestinal General gastrointestinal: Present: tenderness - Integumentary Integumentary: Absent: cyanotic - Musculoskeletal Musculoskeletal: Present: generalized weakness - Psychiatric Psychiatric Comment(s): remains confused, but more alert today - Labs CBC & Chem 7: 11/29/23 11:17 11/29/23 11:17 Labs: Abnormal Lab Results - Last 24 Hours (Table) 11/28/23 11/28/23 11/28/23 Range/Units 13:04 16:23 20:21 WBC (3.8-10.6) k/uL RBC (4.30-5.90) m/uL Hgb (13.0-17.5) gm/dL Hct (39.0-53.0) % MCV (80.0-100.0) fL RDW (11.5-15.5) % Macrocytosis Chloride (98-107) mmol/L Carbon Dioxide (22-30) mmol/L BUN (9-20) mg/dL Creatinine (0.66-1.25) mg/dL Glucose (74-99) mg/dL POC Glucose (mg/dL) 168 H 139 H (70-110) mg/dL Calcium (8.4-10.2) mg/dL Urine Protein 1+ H (Negative) Urine Blood Moderate H (Negative) Ur Leukocyte Esterase Large H (Negative) Urine RBC 47 H (0-5) /hpf Urine WBC >182 H (0-5) /hpf Urine WBC Clumps Many H (None) /hpf Urine Bacteria Many H (None) /hpf Hyaline Casts 10 H (0-2) /lpf 11/29/23 11/29/23 11/29/23 Range/Units 06:12 11:17 11:17 WBC 13.1 H (3.8-10.6) k/uL RBC 2.84 L (4.30-5.90) m/uL Hgb 9.6 L (13.0-17.5) gm/dL Hct 30.5 L (39.0-53.0) % MCV 107.4 H (80.0-100.0) fL RDW 16.7 H (11.5-15.5) % Macrocytosis Marked A Chloride 111 H (98-107) mmol/L Carbon Dioxide 13 L (22-30) mmol/L BUN 118 H* (9-20) mg/dL Creatinine 3.85 H (0.66-1.25) mg/dL Glucose 266 H (74-99) mg/dL POC Glucose (mg/dL) 223 H (70-110) mg/dL Calcium 7.6 L (8.4-10.2) mg/dL Urine Protein (Negative) Urine Blood (Negative) Ur Leukocyte Esterase (Negative) Urine RBC (0-5) /hpf Urine WBC (0-5) /hpf Urine WBC Clumps (None) /hpf Urine Bacteria (None) /hpf Hyaline Casts (0-2) /lpf 02/08/24 Range/Units 11:45 WBC (3.8-10.6) k/uL RBC (4.30-5.90) m/uL Hgb (13.0-17.5) gm/dL Hct (39.0-53.0) % MCV (80.0-100.0) fL RDW (11.5-15.5) % Macrocytosis Chloride (98-107) mmol/L Carbon Dioxide (22-30) mmol/L BUN (9-20) mg/dL Creatinine (0.66-1.25) mg/dL Glucose (74-99) mg/dL POC Glucose (mg/dL) 269 H (70-110) mg/dL Calcium (8.4-10.2) mg/dL Urine Protein (Negative) Urine Blood (Negative) Ur Leukocyte Esterase (Negative) Urine RBC (0-5) /hpf Urine WBC (0-5) /hpf Urine WBC Clumps (None) /hpf Urine Bacteria (None) /hpf Hyaline Casts (0-2) /lpf Assessment and Plan (1) Malignant neoplasm metastatic from bladder Current Visit: Yes Status: Acute Priority: High Code(s): C67.9 - MALIGNANT NEOPLASM OF BLADDER, UNSPECIFIED SNOMED Code(s): 13531059 (2) Weakness Current Visit: Yes Status: Acute Priority: Medium Code(s): R53.1 - WE AKNESS SNOMED Code(s): 18347939 (3) COVID Current Visit: Yes Status: Acute Priority: High Code(s): U07.1 - COVID-19 SNOMED Code(s): 465123763 (4) Acute kidney injury Current Visit: Yes Status: Acute Priority: High Code(s): N17.9 - ACUTE KIDNEY FAILURE, UNSPECIFIED SNOMED Code(s): 50527897 Plan: Acute on chronic kidney disease -Likely related to dehydration as oral intake has been significantly decreased. Agree with hydration -Defer to admitting team for management COVID: -Tested positive for same 6 weeks ago, possible reinfection vs same infection Dysphagia: -Significant decrease in oral intake due to inability to swallow over the last 2-3 days. Concern for stricture due to mass/XRT. - Progressing malnutrition - Consult placed to general surgery for evaluation for EGD/peg placement, procedures scheduled for today Confusion: - Worsening x 2-3 days prior to admission - CT brain ordered revealing no acute intracranial processes - Infectious workup ordered. CXR showed moderate left pleural effusion. UA suspicious for UTI. Rocephin started - Urine and blood cultures pending Pleural effusion: - CXR showing moderate left pleural effusion increased form prior study. Chest US revealing left pleural pocket measuring 10 cm - Pulm following, considering thoracentesis Metastatic Urothelial carcinoma: -Full history stated in HPI. -Biopsy of left neck mass revealed metastatic non-small cell carcinoma consistent with metastatic high-grade urothelial carcinoma. He has underwent 3 of 5 fractions of palliative RT to left neck mass with Dr. Juarez. Unfortunately, patient has had numerous hospital admissions since July and also was in rehab delaying care/treatment. He finally was able to get PET CT on 11/08/23 which revealed abnormal uptake within the soft tissues including the left neck, left medial shoulder, and proximal left paraspinal region and upper thorax. With suspicion of some abnormal uptake within the posterior wall urinary bladder. -We recommended patient be started on immunotherapy with Tecentriq and was scheduled for his first cycle on 11/19/23. Unfortunately peripheral access was not able to be obtained and stat referral was sent for port placement, but has yet to be obtained. Have spoken to general surgery team to evaluate patient for port placement while inpt. Tentatively planned for 11/30 -Unfortunately treatment will again have to be delayed until patient acutely recovers and we can improve his PS -Wound care consulted for evaluation of radiation induced dermatitis/necrosis of upper chest and neck
--- NOTE | 2023-11-29 20:44 | P.PN ---
Progress Note - Text Progress Note Date: 11/29/23 Chief Complaint: Increasing confusion Patient is a 73-year-old with a known history of metastatic high-grade urothelial carcinoma status post left neck mass lymph node biopsy, urothelial cancer status post chemo/RT in 06/2020, coronary artery disease with history of stent placement, chronic HFpEF, CKD stage IIIb with baseline creatinine level 1.5-1.7, diabetic nephropathy, diabetes type 2 insulin-dependent, hypertension, osteoarthritis, chronic low back pain, prior history of smoking left upper extremity DVT diagnosed in July 2023 and is on Eliquis. In September 2023 was detected with COVID-19. October 17, 2023 was discharged to rehab. On 27 October 2023 patient was brought home. Otherwise he would not be able to get treatment for his underlying cancer. Patient in July did get radiation treatment 3 out of 5. With changes on the skin now. Patient was due to get immunotherapy last week but because of difficult IV access unable to get the same. Port could not be placed because area of radiation in the chest is rather angry appearing as patient has been scratching the same. In the last 2 days patient is becoming increasingly confused. Unable to get around at all. Decreased appetite. No fever reported. Increasing shortness of breath. Patient tested positive for COVID-19. Some lactic acidosis. Worsening of renal function. Patient's at the bedside is able to give the history. Patient himself is rather delirious. November 28: A bit less delirious. Following some commands. at the bedside. Discussed with Dr. Tsai. Will need tube feeding. NG tube difficult because of patient's facial swelling. Later decision made to proceed with the PEG tube feeding. Continue with IV fluids. IV ceftriaxone. Left side of the face still swollen. November 29: Laying in bed. Tired. PEG tube placed. Patient was on IV amiodarone. IV heparin was discontinued. Eliquis being started today. Also IV Cardizem. Heart rate was up to 130s this morning. Start the patient on sodium bicarbonate drip for metabolic acidosis. Active Medications Acetaminophen (Acetaminophen Tab 325 Mg Tab) 650 mg PO Q6HR PRN PRN Reason: Mild Pain or Fever > 100.5 Acetaminophen (Acetaminophen Tab 325 Mg Tab) 650 mg PO Q8H PRN PRN Reason: Pain Hydrocodone Bitart/Acetaminophen (Hydrocodone/Apap 5-325mg 1 Each Tab) 1 each PO Q4HR PRN PRN Reason: Moderate Pain (Scale 4 to 6) Albuterol Sulfate (Albuterol Hfa Inhaler) 2 puff INHALATION RT-Q6H PRN PRN Reason: Wheezing Apixaban (Apixaban 5 Mg Tab) 5 mg PO BID [facility]; Protocol Aspirin (Aspirin 81 Mg) 81 mg PO DAILY [facility] Last Admin: 11/29/23 08:42 Dose: Not Given Atorvastatin Calcium (Atorvastatin 80 Mg Tab) 80 mg PO DAILY [facility] Last Admin: 11/29/23 08:42 Dose: Not Given Budesonide/Formoterol Fumarate (Symbicort 80-4.5 Mcg Inhaler) 2 puff INHALATION RT-BID [facility] Last Admin: 11/29/23 09:02 Dose: 2 puff Dexamethasone Sodium Phosphate (Dexamethasone Sod Phosphate 10 Mg/Ml 1 Ml Vial) 6 mg IVP BID [facility] Last Admin: 11/29/23 08:45 Dose: 6 mg Dextrose/Water (Dextrose 50% Syringe 50 Ml) 25 ml IVP PER PROTOCOL PRN; Protocol PRN Reason: Hypoglycemia Dextrose/Water (Dextrose 50% Syringe 50 Ml) 50 ml IVP PER PROTOCOL PRN; Protocol PRN Reason: Hypoglycemia Sodium Chloride (Saline 0.45%) 1,000 mls @ 75 mls/hr IV .[id number] [facility] Last Admin: 11/29/23 15:59 Dose: 75 mls/hr Ceftriaxone Sodium 2 gm/ (Sodium Chloride) 50 mls @ 100 mls/hr IVPB Q24HR [facility]; Protocol Last Admin: 11/29/23 08:45 Dose: 100 mls/hr Diltiazem HCl 125 mg/ Sodium (Chloride) 125 mls @ 10 mls/hr IV .[id number] [facility] Last Admin: 11/29/23 13:55 Dose: 10 mg/hr, 10 mls/hr Amiodarone HCl 450 mg/ (Dextrose/Water) 250 mls @ 16.667 mls/hr IV .Q15H [facility]; Protocol Stop: 11/30/23 08:10 Last Admin: 11/29/23 16:12 Dose: 0.5 mg/min, 16.667 mls/hr Insulin Aspart (Insulin Aspart (Novolog) 100 Unit/Ml Vial) 0 unit SQ AC-TID [facility]; Protocol Last Admin: 11/29/23 17:03 Dose: 4 unit Insulin Detemir (Insulin Detemir (Levemir) 100 Unit/Ml Syr) 20 unit SQ HS [facility] Last Admin: 11/28/23 20:45 Dose: Not Given Levothyroxine Sodium (Levothyroxine 50 Mcg Tab) 50 mcg PO DAILY@0630 [facility] Last Admin: 11/29/23 05:25 Dose: Not Given Metoprolol Tartrate (Metoprolol Tartrate 50 Mg Tab) 50 mg PO BID [facility] Last Admin: 11/29/23 10:45 Dose: Not Given Metoprolol Tartrate (Metoprolol Tartrate 5 Mg/5 Ml Vial) 5 mg IVP Q6HR PRN PRN Reason: Heart Rate - HIGH Morphine Sulfate (Morphine Sulfate 4 Mg/Ml Syringe) 4 mg IV Q4HR PRN PRN Reason: Severe Pain (Scale 7 to 10) Last Admin: 11/29/23 08:53 Dose: 4 mg Naloxone HCl (Naloxone 0.4 Mg/Ml 1 Ml Vial) 0.2 mg IV Q2M PRN PRN Reason: Opioid Reversal Liraglutide [Victoza 3-Sam] 0.6 Mg/0.1 Ml Ml 1.8 mg SQ DAILY [facility] Last Admin: 11/29/23 08:42 Dose: Not Given Ondansetron HCl (Ondansetron 4 Mg/2 Ml Vial) 4 mg IVP Q8HR PRN PRN Reason: Nausea And Vomiting Pantoprazole Sodium (Pantoprazole 40 Mg Tablet) 40 mg PO AC-BID@0800,1700 [facility] Last Admin: 11/29/23 16:23 Dose: Not Given Tamsulosin HCl (Tamsulosin 0.4 Mg Cap.Er.24h) 0.4 mg PO DAILY [facility] Last Admin: 11/29/23 10:46 Dose: Not Given Social history: Used to work in a [employer]. . 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 Patient Smoked for 50 Years Stopped in 2019. Drinking Excessive Alcohol up to 2019. On examination: VITAL SIGNS: 98.3, 131, 20, 103 x 55, 95% on 4 L GENERAL: Laying in bed, tired. Some redness tenderness with some crusting upper chest.-Area of previous radiation EYES: Pupils equal. Conjunctiva normal. HEENT: Left side of the face rather swollen., oral cavity grossly normal. NECK: JVD normal; masses not palpable. Hard mass of the left upper neck going to the mandible. Hard. HEART: Heart sounds irregular; edema present LUNGS: Respiratory rate increased; decreased breath sounds. ABDOMEN: Soft, nontender, liver spleen not palpable, no masses palpable. PEG tube PSYCH: Unable to assess. Remains tired EXTREMITY: Left upper extremity swelling MUSCULOSKELETAL:No Clubbing/cyanosis;muscles-grossly intact. OA NEUROLOGICAL: Some facial asymmetry secondary to left neck mass. Otherwise cranial nerves grossly intact. Moving all 4 limbs INVESTIGATIONS, reviewed in the clinical context: November 29: White count 13.1 hemoglobin 9.6 platelets 308 potassium 5.1 BUN 118 creatinine 3.85 bicarb 13 November 27: White count 8.5 hemoglobin 9.8 platelets 309 sodium 143 potassium 4.5 BUN 107 creatinine 3.47 lactic acid 2.7 phosphorus 5.7 troponin I 0.053 COVID-19 PCR: Detected EKG tracing personally reviewed by me-sinus tachycardia. Nonspecific ST-T wave changes. Chest x-ray film personally reviewed by me-large left pleural effusion. Assessment and plan: -Acute COVID-19 pneumonia,. Patient was positive for the same during September. PCR can be positive for few weeks. Possibility of new infection. Dexamethasone 6 mg IV every 12 -Possible left basilar/atelectasis/pleural effusion. Seen by Dr. Tsai from pulmonary. [place] to be chronic. On previous CT scan. -Acute metabolic encephalopathy, with delirium multifactorial: Some improvement -Metastatic urothelial carcinoma: -Completed treatment with concurrent chemo/RT in 06/2020. Was following up for ob servation in clinic through 11/2021 with no evidence of recurrence. Stopped f/u with urology in February 2022 due to insurance reasons, and has not had f/u since -Progressing left neck mass. Biopsy of the lt neck mass revealed metastatic non- small cell carcinoma consistent with metastatic high-grade urothelial carcinoma. Radiation treatment. In . [address] Patsy Banda-oncologist. Patient was due to get immunotherapy. But because of poor IV access could not get the same. Port could not be placed because of skin inflammation from radiation/scratching. -Acute hypoxic respiratory failure secondary to Covid 19: 4 L nasal cannula -Chronic hypoxic respiratory failure Baseline 2 L nasal cannula -Chronic CHF exacerbation with preserved ejection fraction EF 50-55%: -Acute kidney injury likely ATN multifactorial. Creatinine is up from baseline. -Left facial swelling possibly from left IJ thrombosis. Previously had superficial venous thrombosis of the left cephalic vein. -Chronic kidney disease likely likely hydronephrosis secondary to cardiorenal syndrome. Along with right-sided hydronephrosis Follow renal function -Metabolic acidosis from chronic kidney disease Start sodium bicarbonate drip -Coronary artery disease with history of stent 2018 Lipitor, Lopressor -Chronic esophagitis with Otoole's esophagus Protonix -COPD in a prior smoker Ventolin when necessary. Symbicort. 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 Superficial thrombosis within the left cephalic vein. Eliquis Sleeve left upper extremity Followed by Dr. Montalvo from vascular. -Hyperlipidemia Lipitor -PEG tube placed on November [address] Finnegan -Diabetes type 2 insulin-dependent A1c 8.3, uncontrolled with hyperglycemia, secondary to steroids Lantus 20 units daily at bedtime. Accu-Cheks with sliding scale -Hypothyroid Synthroid 25 -BPH Flomax -Full code Start sodium bicarbonate drip. IV amiodarone. IV Cardizem drip. Lopressor. Prognosis guarded. Past Medical History Past Medical History: Coronary Artery Disease (CAD), Cancer, Diabetes Mellitus, Hyperlipidemia, Hypertension, Myocardial Infarction ([place]), Osteoarthritis (OA) Additional Past Medical History / Comment(s): Bladder cancer stage with treatment, in remission since 2020. IDDM type II, post polio syndrome,leg length discrepancy, bronchitis, chronic low back pain. 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 He is confused and restless orientated to person only. Smoking Status: Former smoker Past Alcohol Use History: None Reported Additional Past Alcohol Use History / Comment(s): Pt started smoking in 1968 and quit 07/21/19. Prior ETOH abuse-pt states he hasnt had alcohol in months Past Drug Use History: None Reported
[2023-11-29] MEDS: HYDROcodone/APAP 5-325MG 1 EACH TAB PO PRN (20:45)
[2023-11-29] MEDS: APIXABAN 5 MG TAB PO SCH (20:45)
[2023-11-29 21:21] LABS: Glucose,Whole Blood 213 mg/dL (70-110)
[2023-11-29] MEDS: DEXTROSE 5% IN WATER 1,000 ML with SODIUM BICARB (1 MEQ/ML) 50 ML IV SCH (23:37)
[2023-11-30 06:01] LABS: Glucose,Whole Blood 267 mg/dL (70-110)
[2023-11-30] MEDS: AMIODARONE 200 MG TAB PO SCH (09:35)
[2023-11-30 10:32] LABS: Anisocytosis Slight; Basophils % (A) 0 %; Eosinophils # (A) 0.1 k/uL (0-0.7); Eosinophils % (A) 1 %; HCT 28.7 % (39.0-53.0); HGB 9.3 gm/dL (13.0-17.5); Hypochromasia Moderate; Lymphocytes # (A) 0.3 k/uL (1.0-4.8); Lymphocytes % (A) 2 %; MCHC 32.3 g/dL (31.0-37.0); MCV 105.4 fL (80.0-100.0); Macrocytosis Moderate; Mean Platelet Volume 11.3; Monocytes # (A) 0.5 k/uL (0-1.0); Monocytes % (A) 3 %; Neutrophils # (A) 13.1 k/uL (1.3-7.7); Neutrophils % (A) 94 %; Platelet Count 287 k/uL (150-450); RBC 2.72 m/uL (4.30-5.90); RDW 16.3 % (11.5-15.5)
[2023-11-30 10:39] LABS: INR 1.1 (<1.2)
[2023-11-30 10:46] LABS: African American GFR (CKD) 17 (>60 ml/min/1.73 sqM); Anion Gap 13 mmol/L; Calcium 7.4 mg/dL (8.4-10.2); Carbon Dioxide 19 mmol/L (22-30); Chloride 108 mmol/L (98-107); Glucose 255 mg/dL (74-99); Non-African American GFR(CKD) 14 (>60 ml/min/1.73 sqM); Potassium 4.4 mmol/L (3.5-5.1); Sodium 140 mmol/L (137-145)
[2023-11-30 11:00] LABS: Blood Urea Nitrogen 133 mg/dL (9-20)
--- NOTE | 2023-11-30 11:44 | P.PN ---
Subjective Progress Note Date: 11/30/23 CHIEF COMPLAINT: weakness HISTORY OF PRESENT ILLNESS: Patient postop day #1 status post PEG tube placemen t. Tube feedings to start this afternoon. Patient appears comfortable. No nausea or vomiting reported. Patient has been started on Eliquis. Afebrile. WBC 13.1 up to 14 Hgb 9.3 PHYSICAL EXAM: VITAL SIGNS: Reviewed. GENERAL: no acute distress. NECK: radiation dermatitis and wound ABDOMEN: Soft. Nondistended. Nontender. NEUROLOGIC: awake and alert ASSESSMENT: 1. Moderate protein calorie malnutrition 2. Dysphagia 3. Bladder cancer with metastatic disease to the neck PLAN: -Consult placed for dietitian to start tube feeds this afternoon -Patient is not a candidate for Port-A-Cath placement Physician Runner Man note has been reviewed by physician. Signing provider agrees with the documented findings, assessment, and plan of care. I have personally seen and examined the patient, reviewed the SECURITY ASSISTANT /PAs history, exam and MDM and agree with the assessment and plan as written. Based on total visit time, I have performed more than 50% of the visit. As above: Patient doing well after PEG tube placement yesterday. He is quite thirsty. Continue monitoring swallow function. Begin tube feeds today. No plans for Port-A-Cath placement at this time. Objective - Vital Signs Vital signs: Vital Signs Temp 98 F 11/30/23 07:40 Pulse 54 L 11/30/23 07:40 Resp 22 11/30/23 07:40 BP 123/64 11/30/23 07:40 Pulse Ox 95 11/30/23 07:40 FiO2 Intake & Output 11/29/23 11/30/23 11/30/23 18:59 06:59 18:59 Intake Total 476.833 296.448 Balance 476.833 296.448 Weight 74.843 kg Intake: IV 400 Intake, IV Titration 76.833 296.448 Amount Amiodarone 450 mg In 199.448 Dextrose 5% in Water 250 ml @ 0.5 MG/MIN 16.667 mls/hr IV .Q15H [facility] Rx#: [id number] Diltiazem 125 mg In 76.833 97 Sodium Chloride 0.9% 100 ml @ 10 MG/HR 10 mls/hr IV .[id number] [facility] Rx#: [id number] Oral 0 Other: Voiding Method Incontinent Incontinent Incontinent # Voids 1 0 - Labs CBC & Chem 7: 11/30/23 10:18 11/30/23 10:18 Labs: Abnormal Lab Results - Last 24 Hours (Table) 11/29/23 11/29/23 11/29/23 Range/Units 11:17 11:17 11:45 WBC 13.1 H (3.8-10.6) k/uL RBC 2.84 L (4.30-5.90) m/uL Hgb 9.6 L (13.0-17.5) gm/dL Hct 30.5 L (39.0-53.0) % MCV 107.4 H (80.0-100.0) fL RDW 16.7 H (11.5-15.5) % Neutrophils # (1.3-7.7) k/uL Neutrophils # (Manual) 12.45 H (1.3-7.7) k/uL Lymphocytes # (1.0-4.8) k/uL Lymphocytes # (Manual) 0.13 L (1.0-4.8) k/uL Macrocytosis Marked A Chloride 111 H (98-107) mmol/L Carbon Dioxide 13 L (22-30) mmol/L BUN 118 H* (9-20) mg/dL Creatinine 3.85 H (0.66-1.25) mg/dL Glucose 266 H (74-99) mg/dL POC Glucose (mg/dL) 269 H (70-110) mg/dL Calcium 7.6 L (8.4-10.2) mg/dL 11/29/23 11/29/23 11/30/23 Range/Units 16:31 21:05 05:59 WBC (3.8-10.6) k/uL RBC (4.30-5.90) m/uL Hgb (13.0-17.5) gm/dL Hct (39.0-53.0) % MCV (80.0-100.0) fL RDW (11.5-15.5) % Neutrophils # (1.3-7.7) k/uL Neutrophils # (Manual) (1.3-7.7) k/uL Lymphocytes # (1.0-4.8) k/uL Lymphocytes # (Manual) (1.0-4.8) k/uL Macrocytosis Chloride (98-107) mmol/L Carbon Dioxide (22-30) mmol/L BUN (9-20) mg/dL Creatinine (0.66-1.25) mg/dL Glucose (74-99) mg/dL POC Glucose (mg/dL) 228 H 213 H 267 H (70-110) mg/dL Calcium (8.4-10.2) mg/dL 11/30/23 11/30/23 Range/Units 10:18 10:18 WBC 14.0 H (3.8-10.6) k/uL RBC 2.72 L (4.30-5.90) m/uL Hgb 9.3 L (13.0-17.5) gm/dL Hct 28.7 L (39.0-53.0) % MCV 105.4 H (80.0-100.0) fL RDW 16.3 H (11.5-15.5) % Neutrophils # 13.1 H (1.3-7.7) k/uL Neutrophils # (Manual) (1.3-7.7) k/uL Lymphocytes # 0.3 L (1.0-4.8) k/uL Lymphocytes # (Manual) (1.0-4.8) k/uL Macrocytosis Chloride 108 H (98-107) mmol/L Carbon Dioxide 19 L (22-30) mmol/L BUN 133 H* (9-20) mg/dL Creatinine 3.92 H (0.66-1.25) mg/dL Glucose 255 H (74-99) mg/dL POC Glucose (mg/dL) (70-110) mg/dL Calcium 7.4 L (8.4-10.2) mg/dL Microbiology - Last 24 Hours (Table) 11/28/23 13:04 Urine Culture - Final Urine,Voided Klebsiella pneumoniae 11/28/23 14:29 Blood Culture - Preliminary Blood 11/28/23 14:15 Blood Culture - Preliminary Blood
[2023-11-30 11:49] LABS: Glucose,Whole Blood 250 mg/dL (70-110)
--- NOTE | 2023-11-30 11:50 | P.PN ---
Subjective Progress Note Date: 11/30/23 This is a 73-year-old male patient with known history of metastatic urothelial carcinoma of the bladder. The patient is coming into the hospital because of dehydration, generalized weakness, falls and failure to thrive. The has noted significant change in his condition over the past 24 to 48 hours and the patient was also having diminished level of consciousness and he was acting encephalopathic. For that reason, the patient was brought into the hospital. I reviewed the records in regards to his metastatic urothelial cancer. The patient has had previous bladder cancer that was treated with chemoradiation therapy back in 2019. He was lost to follow-up and subsequently in July 2023, the patient was found to have a large neck mass and a biopsy of the neck mass was consistent with metastatic disease. At that point, the patient was referred to medical oncology and radiation oncology. He was given 5 radiation therapy treatments to his chest which resulted into significant amount of radiation induced skin necrosis and damage to his neck. The patient also was found to have facial and left neck and eye swelling and this was attributed to a nonocclusive thrombus in the left internal jugular vein and superficial thrombus in the cephalic veins. The based on that, the patient was unable to complete his radiation therapy. He does have severe radiation-induced dermatitis within open the area of skin necrosis in the mid part of the chest just above the sternum. The patient as such was supposed to start also immunotherapy. Due to failure of a port insertion and IV access, the patient did not receive any radiation therapy. At this point in time, he is having difficulties with swallowing. Unable to have full meals and according to the his oral intake is been quite diminished. He came into the hospital and he is still was found to be positive for COVID-19. Note that he was diagnosed having COVID-19 infection back in September 2023 and since then the test and the PCR turned out to be positive. The chest x-ray showed a moderate size left-sided pleural effusion. This is a new finding as the patient is known to haveA left-sided pleural effusion and this was also seen on a PET/CT that was done on 11/11/2023 that showed abnormal uptake in the soft tissue in the left neck and left medial shoulder and left paraspinal region in the upper thorax. There was also suspicious uptake within the posterior wall of the urinary bladder. Moderate size pleural effusion was also seen that was present. His echocardiogram from 08/07/2023 showed a preserved LV function with an ejection fraction of 50 to 55%. No significant valvular abnormalities. On his labs, the patient was found to have a WBC count of 8.5 with a hemoglobin 9.8 and a platelet count of 309. The BUN was 107 with a creatinine of 3.47 and the patient obviously had a component of an acute kidney injury on top of chronic kidney disease. The sodium was at 143 with a potassium level of 4.5, serum bicarb was at 17, proBNP level was 5590 and the troponin was 0.06. LFTs were normal. As mentioned CO VID-19 testing was still positive. The patient is currently on portable oxygen nasal cannula with a pulse ox of 95%. He is profoundly weak and lethargic at this point. He was started on IV fluid hydration. His comorbid conditions include coronary artery disease with previous coronary stents, diabetes mellitus, hypertension, hyperlipidemia, childhood polio and history of CHF with preserved LV function. On today's evaluation of 11/29/2023, the patient is being seen for a follow-up. The patient remains NPO. Noted the patient was supposed to undergo a PEG tube insertion. However, this procedure has been kept on hold as the patient went into atrial fibrillation with rapid ventricular response. This occurred yesterday afternoon. The patient was started on Cardizem drip and the dose was titrated. There was no response and currently Cardizem running at 10 mg an hour. Subsequently, the patient was started also on amiodarone drip at 1 mg/min. He is currently tachycardic and heart rate is ranging between 130 and 140. His anticoagulation was placed on hold and I suggested putting the patient on IV heparin for the time being. No other significant events overnight. Patient remains NPO. The sodium level is at 142 with a potassium level of 5.1. BUN is 118 with a creatinine of 3.85 which is slightly worse compared to yesterday. Coagulation profile is essentially within normal limits. Hemoglobin at 9.6 with a WBC count of 13.1 and a platelet count of 308. UA was abnormal an d the patient also tested positive for COVID-19 which is an obviously a persistent positive testing since October 2022. In terms of antibiotic coverage, the patient remains on IV Rocephin. Awaiting urine culture results. On today's evaluation of 11/30/2023, seen the patient for a follow-up. The que young is currently post PEG tube insertion. He is taking his oral medications through the PEG tube and the patient will be also started on enteral feeding for nutritional support. In terms of his left facial swelling and orbital swelling, this is improved compared to yesterday. The patient was restarted on anticoagulation with Eliquis 5 mg p.o. twice a day. Also, the patient is back into normal sinus rhythm. The patient was seen by cardiology. The patient is currently on metoprolol 50 mg p.o. twice a day and amiodarone 20 mg twice a day. Cardizem drip has been discontinued. The patient remains on Decadron 6 mg IV twice daily. No other new complaints otherwise for now. Is alert and will and communicating. The white cell count of 14 with a hemoglobin of 9.3 and a platelet count of 287. The BUN is at 133 with a creatinine of 3.9 and sodium is at 140 with a potassium level of 4.4. Objective - Vital Signs Vital signs: Vital Signs Temp 98.2 F 11/30/23 04:07 Pulse 74 11/30/23 04:07 Resp 18 11/30/23 04:07 BP 154/64 11/30/23 04:07 Pulse Ox 95 11/30/23 04:07 FiO2 Intake & Output 11/29/23 11/30/23 11/30/23 18:59 06:59 18:59 Intake Total 476.833 296.448 Balance 476.833 296.448 Intake: IV 400 Intake, IV Titration 76.833 296.448 Amount Amiodarone 450 mg In 199.448 Dextrose 5% in Water 250 ml @ 0.5 MG/MIN 16.667 mls/hr IV .Q15H [facility]UR[facility]EP Rx#: [id number] Diltiazem 125 mg In 76.833 97 Sodium Chloride 0.9% 100 ml @ 10 MG/HR 10 mls/hr IV .[id number] GURDEEP Rx#: [id number] Oral 0 Other: Voiding Method Incontinent Incontinent # Voids 1 0 - Exam GENERAL EXAM: Alert and crying, debilitated, cachectic, with significant left f acial, left orbital and left neck swelling. The patient is currently on 4 L of O2 nasal cannula HEAD: Significant facial edema and left periorbital edema. EYES: Normal reaction of pupils, equal size. NOSE: Clear with pink turbinates. THROAT: No erythema or exudates. NECK: Severe pericervical edema, skin is taut and hard with left-sided mass CHEST: Upper chest edema and radiation dermatitis. LUNGS: Equal air entry with no crackles, wheeze, rhonchi or dullness. There is significant upper airway edema, with mild stridor. CVS: Irregular with rapid ventricular response consistent with atrial fi brillation with rapid ventricular response ABDOMEN: No hepatosplenomegaly, active bowel sounds, no guarding or rigidity. The patient has a PEG tube in his mid abdomen and the exit site is dry clean and intact. SPINE: No scoliosis or deformity SKIN: Upper chest radiation dermatitis/burn/open wound, there is an area of central necrosis with a scab just above the sternum. CENTRAL NERVOUS SYSTEM: Delirious, essentially nonverbal, intermittent spontaneously opens eyes. Does not follow commands. No obvious focal deficits, tone is normal in all 4 extremities. EXTREMITIES: There is significant upper extremity edema, worse on the left. No clubbing, or cyanosis. Peripheral pulses are intact. - Labs CBC & Chem 7: 11/30/23 10:18 11/30/23 10:18 Labs: Abnormal Lab Results - Last 24 Hours (Table) 11/29/23 11/29/23 11/29/23 Range/Units 11:17 11:17 11:45 WBC 13.1 H (3.8-10.6) k/uL RBC 2.84 L (4.30-5.90) m/uL Hgb 9.6 L (13.0-17.5) gm/dL Hct 30.5 L (39.0-53.0) % MCV 107.4 H (80.0-100.0) fL RDW 16.7 H (11.5-15.5) % Neutrophils # (Manual) 12.45 H (1.3-7.7) k/uL Lymphocytes # (Manual) 0.13 L (1.0-4.8) k/uL Macrocytosis Marked A Chloride 111 H (98-107) mmol/L Carbon Dioxide 13 L (22-30) mmol/L BUN 118 H* (9-20) mg/dL Creatinine 3.85 H (0.66-1.25) mg/dL Glucose 266 H (74-99) mg/dL POC Glucose (mg/dL) 269 H (70-110) mg/dL Calcium 7.6 L (8.4-10.2) mg/dL 11/29/23 11/29/23 11/30/23 Range/Units 16:31 21:05 05:59 WBC (3.8-10.6) k/uL RBC (4.30-5.90) m/uL Hgb (13.0-17.5) gm/dL Hct (39.0-53.0) % MCV (80.0-100.0) fL RDW (11.5-15.5) % Neutrophils # (Manual) (1.3-7.7) k/uL Lymphocytes # (Manual) (1.0-4.8) k/uL Macrocytosis Chloride (98-107) mmol/L Carbon Dioxide (22-30) mmol/L BUN (9-20) mg/dL Creatinine (0.66-1.25) mg/dL Glucose (74-99) mg/dL POC Glucose (mg/dL) 228 H 213 H 267 H (70-110) mg/dL Calcium (8.4-10.2) mg/dL Microbiology - Last 24 Hours (Table) 11/28/23 13:04 Urine Culture - Final Urine,Voided Klebsiella pneumoniae 11/28/23 14:29 Blood Culture - Preliminary Blood 11/28/23 14:15 Blood Culture - Preliminary Blood Assessment and Plan Plan: Acute hypoxic respiratory failure and the patient is currently on 4 L O2 nasal cannula. Chest x-ray showing a chronic left-sided pleural effusion. Diagnostic thoracentesis not been done. This could be potentially malignant in nature. CHF related pleural effusion cannot be completely ruled out. Nevertheless, this pleural effusion has been present and it was already seen on a previous PET/CT that was done in October 2023. Known history of metastatic urothelial cancer initially treated with chemoradiation therapy back in 2019. Subsequently the patient developed metastatic disease with a large left neck mass. The patient originally underwent a transurethral resection of bladder cancer on 03/03/2020 and he was found to have a 3 cm urothelial carcinoma with papillary features and he opted for concurrent chemotherapy and radiation therapy with a combination of cisplatin and Taxol rather than surgical resection. Failure to thrive and diminished oral intake and significant dehydration, the patient is post PEG tube insertion and the patient is going to be started on enteral feeding for nutritional support via PEG tube. Acute on top of chronic kidney injury secondary to above, with interval worsening renal function, creatinine is stable compared to yesterday Dysphagia secondary radiation therapy to the neck Metastatic urothelial carcinoma with a large left neck mass and the patient was treated with radiation therapy this was complicated by severe radiation dermatitis and necrosis Non-anion gap metabolic acidosis secondary to above, improved compared to yesterday COVID-19 infection diagnosed in September 2023 and the patient continues to be PCR positive Left facial, orbital and neck swelling related to thrombosis of the left IJ and the patient has also superficial venous thrombosis involving the left cephalic vein, the patient is currently on anticoagulation with Eliquis Atrial fibrillation with rapid ventricular response, currently on a combination of metoprolol and oral amiodarone and the patient is currently on anticoagulation with Eliquis Hypertension Hyperlipidemia Diabetes mellitus type 2 CHF with preserved LV function Coronary artery disease Osteoarthritis Chronic back pain History of childhood polio syndrome Plan Management of A-fib per cardiology. The patient is currently on oral metoprolol and amiodarone and anticoagulation with Eliquis. Cardiac rhythm is back to sinus. Continue amiodarone 200 mg p.o. twice a day Continue metoprolol 50 mg p.o. twice daily Continue Eliquis 5 mg p.o. twice a day Patient is post PEG tube insertion and the patient will be started on enteral feeding for nutritional support IV fluids and monitor renal function Titrate oxygen flow to maintain saturation above 90% currently on 4 L Monitor renal function Ask radiation oncology to evaluate for significant dermatitis over the skin. May benefit from topical steroids to the skin. The patient was also placed on Decadron. Oncology consultation Prognosis remains poor. Will continue to follow.
--- NOTE | 2023-11-30 12:19 | P.PN ---
Subjective HISTORY OF PRESENT ILLNESS: This is a 73-year-old male with a past medical history significant for metastatic urothelial cancer, left neck mass, coronary artery disease with previous stenting, hypertension, hyperlipidemia, valvular heart disease, thrombus of left IJ, and carotid stenosis. Patient follows in the office with Dr. Linda. We have been asked to see the patient in consultation for atrial fibrillation with RVR. Patient examined at the bedside. Patient presented to the emergency room with a chief complaint of weakness and failure to thrive. Patient is unable to swallow. He failed a swallow screen. Plan is for EGD with PEG tube insertion today. His anticoagulation remains on hold. The patient was found to be in A-fib with RVR upon admission to the hospital. He remains in A- fib with RVR. He is currently on a Cardizem drip at 10 mg an hour. DIAGNOSTICS: - EKG reveals A-fib with RVR - Chest xray stable moderate left pleural effusion - Laboratory data: WBC 8.5. Hemoglobin 9.8. Platelet count 309. INR 1.3. Sodium 143. Potassium 4.5. BUN 107. Creatinine 3.47. Troponin 0.053. 0.020. 0.064. proBNP 5590. TSH 3.600. - Current home cardiac medications include amlodipine 5 mg daily, metoprolol tartrate 50 mg twice a day, Lasix 80 mg twice a day, Lipitor 80 mg daily, aspirin 81 mg daily, Eliquis 5 mg twice a day. - Most recent echocardiogram obtained in May 2022 revealed normal ejection fraction with moderate MR - Cardiac catheterization history: 2019 revealing critical disease of the RCA, intermediate disease involving the left circumflex, and intermediate disease involving the ramus intermedius. Patient underwent stenting to the proximal RCA and mid RCA. 11/30/2023 Patient examined at the bedside. Patient is status post PEG tube placement yesterday with general surgery. He remains on IV Cardizem and IV amiodarone. He has converted to sinus mechanism and is maintaining sinus mechanism at the time of examination. Limited echo revealed ejection fraction 40 to 45%. PHYSICAL EXAM: VITAL SIGNS: Reviewed. GENERAL: Well-developed in no acute distress. HEENT: Head is normocephalic. Pupils are equal, round. Sclerae anicteric. Mucous membranes of the mouth are moist. Neck swelling noted. No JVD or thyromegaly LUNGS: Respirations even and unlabored. Lungs essentially clear to auscultation bilaterally. HEART: Regular rate and rhythm. S1 and S2 heard. ABDOMEN: Soft. Nondistended. Nontender. EXTREMITIES: Normal range of motion. No clubbing or cyanosis. Peripheral pulses intact. No lower extremity edema NEUROLOGIC: Awake and alert. Oriented x 1 SKIN: Radiation burn noted to chest with swelling noted. ASSESSMENT: Generalized weakness Failure to thrive Dysphagia, patient unable to swallow, status post PEG tube placement Covid 19 Urothelial cancer with metastasis to the neck s/p radiation Atrial fibrillation with RVR, appears to be new onset History of left IJ thrombus, on Eliquis outpatient Abnormal troponins, flat, type II [place] Coronary artery disease with previous stenting Valvular heart disease including moderate MR Hypertension Hyperlipidemia PLAN: Discontinue IV amiodarone Discontinue IV Cardizem Continue current dose of metoprolol Add amiodarone 200 mg twice a day via PEG tube Continue anticoagulation with Eliquis Continue telemetry monitoring Further recommendations pending patient course Nurse practitioner note has been reviewed by physician. Signing provider agrees with the documented findings, assessment, and plan of care documented by [employer] as a scribe. Objective - Vital Signs Vital signs: Vital Signs Temp 98.3 F 11/30/23 12:13 Pulse 65 11/30/23 12:13 Resp 18 11/30/23 12:13 BP 114/53 11/30/23 12:13 Pulse Ox 99 11/30/23 12:13 FiO2 Intake & Output 11/29/23 11/30/23 11/30/23 18:59 06:59 18:59 Intake Total 476.833 296.448 Balance 476.833 296.448 Weight 74.843 kg Intake: IV 400 Intake, IV Titration 76.833 296.448 Amount Amiodarone 450 mg In 199.448 Dextrose 5% in Water 250 ml @ 0.5 MG/MIN 16.667 mls/hr IV .Q15H [facility] Rx#: [id number] Diltiazem 125 mg In 76.833 97 Sodium Chloride 0.9% 100 ml @ 10 MG/HR 10 mls/hr IV .[id number] [facility] Rx#: [id number] Oral 0 Other: Voiding Method Incontinent Incontinent Incontinent # Voids 1 0 - Labs CBC & Chem 7: 11/30/23 10:18 11/30/23 10:18 Labs: Abnormal Lab Results - Last 24 Hours (Table) 11/29/23 11/29/23 11/29/23 Range/Units 11:17 11:17 16:31 WBC (3.8-10.6) k/uL RBC (4.30-5.90) m/uL Hgb (13.0-17.5) gm/dL Hct (39.0-53.0) % MCV (80.0-100.0) fL RDW (11.5-15.5) % Neutrophils # (1.3-7.7) k/uL Neutrophils # (Manual) 12.45 H (1.3-7.7) k/uL Lymphocytes # (1.0-4.8) k/uL Lymphocytes # (Manual) 0.13 L (1.0-4.8) k/uL Chloride 111 H (98-107) mmol/L Carbon Dioxide 13 L (22-30) mmol/L BUN 118 H* (9-20) mg/dL Creatinine 3.85 H (0.66-1.25) mg/dL Glucose 266 H (74-99) mg/dL POC Glucose (mg/dL) 228 H (70-110) mg/dL Calcium 7.6 L (8.4-10.2) mg/dL 11/29/23 11/30/23 11/30/23 Range/Units 21:05 05:59 10:18 WBC 14.0 H (3.8-10.6) k/uL RBC 2.72 L (4.30-5.90) m/uL Hgb 9.3 L (13.0-17.5) gm/dL Hct 28.7 L (39.0-53.0) % MCV 105.4 H (80.0-100.0) fL RDW 16.3 H (11.5-15.5) % Neutrophils # 13.1 H (1.3-7.7) k/uL Neutrophils # (Manual) (1.3-7.7) k/uL Lymphocytes # 0.3 L (1.0-4.8) k/uL Lymphocytes # (Manual) (1.0-4.8) k/uL Chloride (98-107) mmol/L Carbon Dioxide (22-30) mmol/L BUN (9-20) mg/dL Creatinine (0.66-1.25) mg/dL Glucose (74-99) mg/dL POC Glucose (mg/dL) 213 H 267 H (70-110) mg/dL Calcium (8.4-10.2) mg/dL 11/30/23 11/30/23 Range/Units 10:18 11:47 WBC (3.8-10.6) k/uL RBC (4.30-5.90) m/uL Hgb (13.0-17.5) gm/dL Hct (39.0-53.0) % MCV (80.0-100.0) fL RDW (11.5-15.5) % Neutrophils # (1.3-7.7) k/uL Neutrophils # (Manual) (1.3-7.7) k/uL Lymphocytes # (1.0-4.8) k/uL Lymphocytes # (Manual) (1.0-4.8) k/uL Chloride 108 H (98-107) mmol/L Carbon Dioxide 19 L (22-30) mmol/L BUN 133 H* (9-20) mg/dL Creatinine 3.92 H (0.66-1.25) mg/dL Glucose 255 H (74-99) mg/dL POC Glucose (mg/dL) 250 H (70-110) mg/dL Calcium 7.4 L (8.4-10.2) mg/dL Microbiology - Last 24 Hours (Table) 11/28/23 13:04 Urine Culture - Final Urine,Voided Klebsiella pneumoniae 11/28/23 14:29 Blood Culture - Preliminary Blood 11/28/23 14:15 Blood Culture - Preliminary Blood
--- NOTE | 2023-11-30 14:44 | P.GSCN ---
History of Present Illness Consult date: 11/30/23 Reason for Consult: Port placement Requesting physician: Matthew Young History of present illness: This is a pleasant 73-year-old male with multiple comorbidities including metastatic urothelial carcinoma who follows with Dr. Banda who has undergone previous radiation therapy now requiring immunotherapy, failure to thrive coronary artery disease, diabetes mellitus, hyperlipidemia, hypertension, who came in for dehydration, generalized weakness falls and failure to thrive. Patient has had radiation therapy which resulted in significant amount of radiation induced skin necrosis and damage to the chest and neck. He is also have been having difficulty swallowing with neck mass and aspiration. Yesterday he had a PEG tube placed and feedings are supposed to begin today. He is also on Eliquis for coronary artery disease and history of thrombus. Vascular surgery was consulted for port placement for immunotherapy, upper extremity due to patient's radiation necrosis. Review of Systems A 14 point review systems was completed all pertinent positives and negatives as stated in the HPI. Past Medical History Past Medical History: Coronary Artery Disease (CAD), Cancer, Diabetes Mellitus, Hyperlipidemia, Hypertension, Myocardial Infarction ([place]), Osteoarthritis (OA) Additional Past Medical History / Comment(s): Bladder cancer stage with treatment, in remission since 2020. IDDM type II, post polio syndrome,leg length discrepancy, bronchitis, chronic low back pain. Last Myocardial Infarction Date:: 07/23/19 History of Any Multi-Drug Resistant Organisms: None Reported Past Surgical History: Heart Catheterization With Stent, Orthopedic Surgery Additional Past Surgical History / Comment(s): Cystoscopy, TURBT x2, closure of patent urachus bladder tumor as infant, R leg surgery d/t polio-lengthening, cardiac stents 2018; Right hip surgery 11/03/2022 Past Anesthesia/Blood Transfusion Reactions: No Reported Reaction Date of Last Stent Placement:: 07/23/19 Past Psychological History: No Psychological Hx Reported Smoking Status: Former smoker Past Alcohol Use History: None Reported Past Drug Use History: None Reported - Past Family History Father History Unknown: Yes Mother Additional Family Medical History / Comment(s): Mother of in a MVA when pt was 15 yrs old. Brother(s) Additional Family Medical History / Comment(s): Pt has one brother who of a bowel problem and another brother that of a ruptured aneurysm. Medications and Allergies Home Medications Medication Instructions Recorded Confirmed Type Aspirin 81 mg PO DAILY #90 chewable 07/25/19 11/27/23 Rx Atorvastatin [Lipitor] 80 mg PO DAILY 05/13/20 11/27/23 History Liraglutide [Victoza 3-Sam] 1.8 mg SQ DAILY 08/04/23 11/27/23 History Apixaban [Eliquis] 5 mg PO BID #60 tab 08/10/23 11/27/23 Rx Magnesium Oxide [Mag-Ox] 400 mg PO DAILY #30 tab 08/10/23 11/27/23 Rx Metoprolol Tartrate [Lopressor] 50 mg PO BID #60 tab 08/10/23 11/27/23 Rx Albuterol Sulfate [Albuterol 2 puff INHALATION RT-Q6H PRN 08/17/23 11/27/23 History Sulfate Hfa] Loratadine [Claritin] 5 mg PO DAILY #30 tab 08/31/23 11/27/23 Rx Tamsulosin [Flomax] 0.4 mg PO DAILY #30 cap 08/31/23 11/27/23 Rx Budesonide/Formoterol Fumarate 2 puff INHALATION RT-BID 09/06/23 11/27/23 History [Symbicort 80-4.5 Mcg Inhaler] Ipratropium-Albuterol Nebulize 3 ml INHALATION RT-QID 09/06/23 11/27/23 History [Duoneb 0.5 mg-3 mg/3 ml Soln] Pantoprazole [Protonix] 40 mg PO AC-BID@0800,1700 09/06/23 11/27/23 History Furosemide [Lasix] 80 mg PO BID@0900,1600 #60 tab 09/11/23 11/27/23 Rx Acetaminophen [Tylenol 8 Hour] 650 mg PO Q8H PRN 10/09/23 11/27/23 History Calcium Carbonate [Tums] 500 mg PO PC-TID 10/09/23 11/27/23 History Cholecalciferol [Vitamin D3 (25 50 mcg PO DAILY 10/09/23 11/27/23 History Mcg = 1000 Iu)] Lactulose [Cephulac] 20 gm PO DAILY 10/09/23 11/27/23 History Ascorbic Acid [Vitamin C] 500 mg PO DAILY tab 10/13/23 11/27/23 Rx Zinc Sulfate [Orazinc] 220 mg PO DAILY cap 10/13/23 11/27/23 Rx amLODIPine [Norvasc] 5 mg PO DAILY #1 tab 10/16/23 11/27/23 Rx HYDROcodone/APAP 7.5-325MG [Hercul[place]um 1 tab PO Q4H PRN 11/27/23 11/27/23 History 7.5-325] Levothyroxine Sodium [Synthroid] 50 mcg PO DAILY 11/27/23 11/27/23 History Morphine Sulfate [Barb] 30 mg PO Q12H 11/27/23 11/27/23 History Ondansetron [Zofran] 4 mg PO Q4H PRN 11/27/23 11/27/23 History SILVER sulfADIAZINE CREAM 1 applic TOPICAL DAILY 11/27/23 11/27/23 History [Silvadene Cream] Sennosides [Senokot] 8.6 mg PO BID 11/27/23 11/27/23 History Allergies Allergy/AdvReac Type Severity Reaction Status Date / Time No Known Allergies Allergy Verified 11/27/23 15:25 Surgical - Exam Vital Signs Temp Pulse Resp BP Pulse Ox 98.1 F 98 20 128/59 98 11/27/23 11:10 11/27/23 11:10 11/27/23 11:10 11/27/23 11:10 11/27/23 11:10 General appearance: The patient is alert, oriented, appears in no acute distress. HET: Head is normocephalic and atraumatic. Pupils are equal and reactive. Neck: Supple. Left neck mass. Heart: Regular. Lungs: Equal expansion, normal respiratory effort. Abdomen: Soft, PEG tube, nondistended. Extremities: Bilateral lower extremity swelling, bilateral upper extremity swelling and weeping. Forearms with dressings. Neurological: Patient appears alert and oriented. Results - Labs 11/30/23 10:18 11/30/23 10:18 Abnormal Lab Results - Last 24 Hours (Table) 11/29/23 11/29/23 11/30/23 Range/Units 16:31 21:05 05:59 WBC (3.8-10.6) k/uL RBC (4.30-5.90) m/uL Hgb (13.0-17.5) gm/dL Hct (39.0-53.0) % MCV (80.0-100.0) fL RDW (11.5-15.5) % Neutrophils # (1.3-7.7) k/uL Lymphocytes # (1.0-4.8) k/uL Chloride (98-107) mmol/L Carbon Dioxide (22-30) mmol/L BUN (9-20) mg/dL Creatinine (0.66-1.25) mg/dL Glucose (74-99) mg/dL POC Glucose (mg/dL) 228 H 213 H 267 H (70-110) mg/dL Calcium (8.4-10.2) mg/dL 11/30/23 11/30/23 11/30/23 Range/Units 10:18 10:18 11:47 WBC 14.0 H (3.8-10.6) k/uL RBC 2.72 L (4.30-5.90) m/uL Hgb 9.3 L (13.0-17.5) gm/dL Hct 28.7 L (39.0-53.0) % MCV 105.4 H (80.0-100.0) fL RDW 16.3 H (11.5-15.5) % Neutrophils # 13.1 H (1.3-7.7) k/uL Lymphocytes # 0.3 L (1.0-4.8) k/uL Chloride 108 H (98-107) mmol/L Carbon Dioxide 19 L (22-30) mmol/L BUN 133 H* (9-20) mg/dL Creatinine 3.92 H (0.66-1.25) mg/dL Glucose 255 H (74-99) mg/dL POC Glucose (mg/dL) 250 H (70-110) mg/dL Calcium 7.4 L (8.4-10.2) mg/dL Microbiology - Last 24 Hours (Table) 11/28/23 13:04 Urine Culture - Final Urine,Voided Klebsiella pneumoniae 11/28/23 14:29 Blood Culture - Preliminary Blood 11/28/23 14:15 Blood Culture - Preliminary Blood Diabetes panel 11/30/23 Range/Units 10:18 Sodium 140 (137-145) mmol/L Potassium 4.4 (3.5-5.1) mmol/L Chloride 108 H (98-107) mmol/L Carbon Dioxide 19 L (22-30) mmol/L BUN 133 H* (9-20) mg/dL Creatinine 3.92 H (0.66-1.25) mg/dL Glucose 255 H (74-99) mg/dL Calcium 7.4 L (8.4-10.2) mg/dL Calcium panel 11/30/23 Range/Units 10:18 Calcium 7.4 L (8.4-10.2) mg/dL Pituitary panel 11/30/23 Range/Units 10:18 Sodium 140 (137-145) mmol/L Potassium 4.4 (3.5-5.1) mmol/L Chloride 108 H (98-107) mmol/L Carbon Dioxide 19 L (22-30) mmol/L BUN 133 H* (9-20) mg/dL Creatinine 3.92 H (0.66-1.25) mg/dL Glucose 255 H (74-99) mg/dL Calcium 7.4 L (8.4-10.2) mg/dL Adrenal panel 11/30/23 Range/Units 10:18 Sodium 140 (137-145) mmol/L Potassium 4.4 (3.5-5.1) mmol/L Chloride 108 H (98-107) mmol/L Carbon Dioxide 19 L (22-30) mmol/L BUN 133 H* (9-20) mg/dL Creatinine 3.92 H (0.66-1.25) mg/dL Glucose 255 H (74-99) mg/dL Calcium 7.4 L (8.4-10.2) mg/dL Assessment and Plan Assessment: 1. Metastatic urothelial carcinoma 2. Skin necrosis and damage to chest and neck from radiation therapy 3. Coronary artery disease on Eliqu 4. Failure to thrive, has PEG tube placement Plan: 1. Venous duplex of bilateral upper extremities to evaluate IJV 2. Patient needs to be n.p.o. after midnight for surgery December 03, 2023 3. Hold Eliquis Sunday, December 02, 2023 4. Plan for port placement on Sunday, December 03, 2023 Thank you for this consultation, we will continue to follow. The impression and plan of care has been dictated as directed. I performed a history and examination of this patient, discussed the same with the dictator. I agree with the dictator's note ,documented as a scribe. Any additional findings or plans will be noted.
--- NOTE | 2023-11-30 15:43 | US ---
EXAMINATION TYPE: US venous doppler duplex UE BI DATE OF EXAM: 11/30/2023 COMPARISON: 08/17/2023. CLINICAL INDICATION: Male, 73 years old with history of evaluate IJV for patency; h/o left sided shou lder mass and DVT within IJV seen Jul 2023, +Covid SIDE PERFORMED: Bilateral IJV Patient is very uncomfortable during exam and refused test to go any further by the time the left w as being imaged. Right Arm: Limited views of jugular vein appear wnl Left Arm: Limited views of jugular vein appears to have internal echoes that do not compress, probabl e DVT IMPRESSION: Similar left internal jugular vein nonocclusive thrombus..
--- NOTE | 2023-11-30 16:02 | P.PN ---
Progress Note - Text Progress Note Date: 11/30/23 Chief Complaint: Increasing confusion Patient is a 73-year-old with a known history of metastatic high-grade urothelial carcinoma status post left neck mass lymph node biopsy, urothelial cancer status post chemo/RT in 06/2020, coronary artery disease with history of stent placement, chronic HFpEF, CKD stage IIIb with baseline creatinine level 1.5-1.7, diabetic nephropathy, diabetes type 2 insulin-dependent, hypertension, osteoarthritis, chronic low back pain, prior history of smoking left upper extremity DVT diagnosed in July 2023 and is on Eliquis. In September 2023 was detected with COVID-19. October 17, 2023 was discharged to rehab. On 27 October 2023 patient was brought home. Otherwise he would not be able to get treatment for his underlying cancer. Patient in July did get radiation treatment 3 out of 5. With changes on the skin now. Patient was due to get immunotherapy last week but because of difficult IV access unable to get the same. Port could not be placed because area of radiation in the chest is rather angry appearing as patient has been scratching the same. In the last 2 days patient is becoming increasingly confused. Unable to get around at all. Decreased appetite. No fever reported. Increasing shortness of breath. Patient tested positive for COVID-19. Some lactic acidosis. Worsening of renal function. Patient's at the bedside is able to give the history. Patient himself is rather delirious. November 28: A bit less delirious. Following some commands. at the bedside. Discussed with Dr. Tsai. Will need tube feeding. NG tube difficult because of patient's facial swelling. Later decision made to proceed with the PEG tube feeding. Continue with IV fluids. IV ceftriaxone. Left side of the face still swollen. November 29: Laying in bed. Tired. PEG tube placed. Patient was on IV amiodarone. IV heparin was discontinued. Eliquis being started today. Also IV Cardizem. Heart rate was up to 130s this morning. Start the patient on sodium bicarbonate drip for metabolic acidosis. November 30: Sitting up in bed. More awake. Answering simple questions. present. PEG tube feeding to be started this afternoon. On IV ceftriaxone. Sodium bicarbonate drip. On p.o. Lopressor. Switched over to p.o. amiodarone. Plan to hold Eliquis over the weekend so that the port can be placed on Sunday. By vascular. Active Medications Acetaminophen (Acetaminophen Tab 325 Mg Tab) 650 mg PO Q6HR PRN PRN Reason: Mild Pain or Fever > 100.5 Acetaminophen (Acetaminophen Tab 325 Mg Tab) 650 mg PO Q8H PRN PRN Reason: Pain Hydrocodone Bitart/Acetaminophen (Hydrocodone/Apap 5-325mg 1 Each Tab) 1 each PO Q4HR PRN PRN Reason: Moderate Pain (Scale 4 to 6) Last Admin: 11/29/23 20:45 Dose: 1 each Albuterol Sulfate (Albuterol Hfa Inhaler) 2 puff INHALATION RT-Q6H PRN PRN Reason: Wheezing Amiodarone HCl (Amiodarone 200 Mg Tab) 200 mg PO BID [facility] Last Admin: 11/30/23 09:35 Dose: 200 mg Apixaban (Apixaban 5 Mg Tab) 5 mg PO BID [facility]; Protocol Last Admin: 11/30/23 07:43 Dose: 5 mg Atorvastatin Calcium (Atorvastatin 80 Mg Tab) 80 mg PO DAILY [facility] Last Admin: 11/30/23 07:44 Dose: 80 mg Budesonide/Formoterol Fumarate (Symbicort 80-4.5 Mcg Inhaler) 2 puff INHALATION RT-BID [facility] Last Admin: 11/30/23 08:38 Dose: 2 puff Dexamethasone Sodium Phosphate (Dexamethasone Sod Phosphate 10 Mg/Ml 1 Ml Vial) 6 mg IVP BID [facility] Last Admin: 11/30/23 07:44 Dose: 6 mg Dextrose/Water (Dextrose 50% Syringe 50 Ml) 25 ml IVP PER PROTOCOL PRN; Protocol PRN Reason: Hypoglycemia Dextrose/Water (Dextrose 50% Syringe 50 Ml) 50 ml IVP PER PROTOCOL PRN; Protocol PRN Reason: Hypoglycemia Sodium Chloride (Saline 0.45%) 1,000 mls @ 75 mls/hr IV .[id number] [facility] Last Admin: 11/30/23 10:20 Dose: Not Given Ceftriaxone Sodium 2 gm/ (Sodium Chloride) 50 mls @ 100 mls/hr IVPB Q24HR [facility]; Protocol Last Admin: 11/30/23 07:43 Dose: 100 mls/hr Sodium Bicarbonate 50 ml/ (Dextrose/Water) 1,050 mls @ 100 mls/hr IV .[id number] [facility] Last Admin: 11/30/23 09:35 Dose: 100 mls/hr Insulin Aspart (Insulin Aspart (Novolog) 100 Unit/Ml Vial) 0 unit SQ AC-TID [facility]; Protocol Last Admin: 11/30/23 12:12 Dose: 4 unit Insulin Detemir (Insulin Detemir (Levemir) 100 Unit/Ml Syr) 20 unit SQ HS [facility] Last Admin: 11/29/23 21:58 Dose: 20 unit Levothyroxine Sodium (Levothyroxine 50 Mcg Tab) 50 mcg PO DAILY@0630 [facility] Last Admin: 11/30/23 06:42 Dose: 50 mcg Metoprolol Tartrate (Metoprolol Tartrate 50 Mg Tab) 50 mg PO BID [facility] Last Admin: 11/30/23 07:45 Dose: 50 mg Metoprolol Tartrate (Metoprolol Tartrate 5 Mg/5 Ml Vial) 5 mg IVP Q6HR PRN PRN Reason: Heart Rate - HIGH Morphine Sulfate (Morphine Sulfate 4 Mg/Ml Syringe) 4 mg IV Q4HR PRN PRN Reason: Severe Pain (Scale 7 to 10) Last Admin: 11/30/23 15:12 Dose: 4 mg Naloxone HCl (Naloxone 0.4 Mg/Ml 1 Ml Vial) 0.2 mg IV Q2M PRN PRN Reason: Opioid Reversal Liraglutide [Victoza 3-Sam] 0.6 Mg/0.1 Ml Ml 1.8 mg SQ DAILY [facility] Last Admin: 11/30/23 07:45 Dose: Not Given Ondansetron HCl (Ondansetron 4 Mg/2 Ml Vial) 4 mg IVP Q8HR PRN PRN Reason: Nausea And Vomiting Pantoprazole Sodium (Pantoprazole 40 Mg Tablet) 40 mg PO AC-BID@0800,1700 [facility] Last Admin: 11/30/23 07:43 Dose: 40 mg Tamsulosin HCl (Tamsulosin 0.4 Mg Cap.Er.24h) 0.4 mg PO DAILY [facility] Last Admin: 11/30/23 07:44 Dose: 0.4 mg 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 Patient Smoked for 50 Years Stopped in 2019. Drinking Excessive Alcohol up to 2019. On examination: VITAL SIGNS: 98.3, 65, 18, 1 one 4 x 53, 99% on 4 L GENERAL: Sitting up in bed, more awake, answering simple questions. CHEST wall: Some redness tenderness with some crusting upper chest.-Area of previous radiation EYES: Pupils equal. Conjunctiva normal. HEENT: Left side of the face rather swollen., oral cavity grossly normal. NECK: JVD normal; masses not palpable. Hard mass of the left upper neck going to the mandible. Hard. HEART: Heart sounds irregular; edema present LUNGS: Respiratory rate increased; decreased breath sounds. ABDOMEN: Soft, nontender, liver spleen not palpable, no masses palpable. PEG tube PSYCH: Able to answer simple questions EXTREMITY: Left upper extremity swelling MUSCULOSKELETAL:No Clubbing/cyanosis;muscles-grossly intact. OA NEUROLOGICAL: Some facial asymmetry secondary to left neck mass. Otherwise cranial nerves grossly intact. Moving all 4 limbs INVESTIGATIONS, reviewed in the clinical context: November night: White count 14 hemoglobin 9.3 potassium 4.4 BUN 133 creatinine 3.92 bicarb 10 December 8: White count 13.1 hemoglobin 9.6 platelets 308 potassium 5.1 BUN 118 creatinine 3.85 bicarb 04 December 6: White count 8.5 hemoglobin 9.8 platelets 309 sodium 143 potassium 4.5 BUN 107 creatinine 3.47 lactic acid 2.7 phosphorus 5.7 troponin I 0.053 COVID-19 PCR: Detected EKG tracing personally reviewed by me-sinus tachycardia. Nonspecific ST-T wave changes. Chest x-ray film personally reviewed by me-large left pleural effusion. Assessment and plan: -Acute COVID-19 pneumonia,. Patient was positive for the same during September. PCR can be positive for few weeks. Possibility of new infection. Dexamethasone 6 mg IV every 12-changed to 6 mg p.o. daily -Possible left basilar/atelectasis/pleural effusion. Seen by Dr. Tsai from pulmonary. [place] to be chronic. On previous CT scan. -Acute metabolic encephalopathy, with delirium multifactorial: Better -Metastatic urothelial carcinoma: -Completed treatment with concurrent chemo/RT in 06/2020. Was following up for observation in clinic through 11/2021 with no evidence of recurrence. Stopped f/u with urology in February 2022 due to insurance reasons, and has not had f/u since -Progressing left neck mass. Biopsy of the lt neck mass revealed metastatic non- small cell carcinoma consistent with metastatic high-grade urothelial carcinoma. Radiation treatment. In . [address] Patsy Banda-oncologist. Patient was due to get immunotherapy. But because of poor IV access could not get the same. Port could not be placed because of skin inflammation from radiation/scratching. -Acute hypoxic respiratory failure secondary to Covid 19: 4 L nasal cannula -Chronic hypoxic respiratory failure Baseline 2 L nasal cannula -Chronic CHF exacerbation with preserved ejection fraction EF 50-55%: -Acute kidney injury likely ATN multifactorial. Creatinine is up from baseline. -Left facial swelling possibly from left IJ thrombosis. Previously had superficial venous thrombosis of the left cephalic vein. -Chronic kidney disease likely likely hydronephrosis secondary to cardiorenal syndrome. Along with right-sided hydronephrosis Follow renal function -Metabolic acidosis from chronic kidney disease sodium bicarbonate drip -Coronary artery disease with history of stent 2019 Lipitor, Lopressor -Chronic esophagitis with Otoole's esophagus Protonix -COPD in a prior smoker Ventolin when necessary. Symbicort. 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 Superficial thrombosis within the left cephalic vein. Eliquis Sleeve left upper extremity Followed by Dr. Montalvo from vascular. -Hyperlipidemia Lipitor -PEG tube placed on November [address] Finnegan -Diabetes type 2 insulin-dependent A1c 8.3, uncontrolled with hyperglycemia, secondary to steroids Lantus 20 units daily at bedtime. Accu-Cheks with sliding scale -Hypothyroid Synthroid 25 -BPH Flomax -Full code Amiodarone changed over to p.o. Continues sodium bicarbonate drip. Cut back Solu-Medrol to p.o. 6 mg daily. PEG tube feeding to be started today. Eliquis will be held over the weekend for a port placement. Past Medical History Past Medical History: Coronary Artery Disease (CAD), Cancer, Diabetes Mellitus, Hyperlipidemia, Hypertension, Myocardial Infarction ([place]), Osteoarthritis (OA) Additional Past Medical History / Comment(s): Bladder cancer stage with treatment, in remission since 2020. IDDM type II, post polio syndrome,leg length discrepancy, bronchitis, chronic low back pain. Last Myocardial Infarction Date:: 07/23/19 History of Any Multi-Drug Resistant Organisms: None Reported Past Surgical History: Heart Catheterization With Stent, Orthopedic Surgery Additional Past Surgical History / Comment(s): Cystoscopy, TURBT x2, closure of patent urachus bladder tumor as infant, R leg surgery d/t polio-lengthening, cardiac stents 2019; Right hip surgery 11/03/2022 Past Anesthesia/Blood Transfusion Reactions: No Reported Reaction Date of Last Stent Placement:: 07/23/19 Past Psychological History: No Psychological Hx Reported Additional Psychological History / Comment(s): Pt resides with his spouse. He is confused and restless orientated to person only. Smoking Status: Former smoker Past Alcohol Use History: None Reported Additional Past Alcohol Use History / Comment(s): Pt started smoking in 1968 and quit 07/21/19. Prior ETOH abuse-pt states he hasnt had alcohol in months Past Drug Use History: None Reported
[2023-11-30] MEDS: INSULIN ASPART (NovoLOG) 100 UNIT/ML VIAL SQ SCH (17:57)
[2023-11-30 18:02] LABS: Glucose,Whole Blood 269 mg/dL (70-110)
--- NOTE | 2023-11-30 19:40 | P.PN ---
Subjective Progress Note Date: 11/30/23 At today's visit patient is more alert and at baseline. Sitting up in bed. Facial swelling significantly improved. S/p EGD and peg placement. Felt Pad Cutter consulted to start parenteral nutrition. Urine culture positive for K. pneumoniae, continues on rocephin Objective - Vital Signs Vital signs: Vital Signs Temp 97.9 F 11/30/23 15:50 Pulse 72 11/30/23 15:50 Resp 20 11/30/23 15:50 BP 146/55 11/30/23 15:50 Pulse Ox 98 11/30/23 15:50 FiO2 Intake & Output 11/29/23 11/30/23 11/30/23 18:59 06:59 18:59 Intake Total 476.833 296.448 186.835 Balance 476.833 296.448 186.835 Weight 74.843 kg Intake: IV 400 Intake, IV Titration 76.833 296.448 186.835 Amount Amiodarone 450 mg In 199.448 88.335 Dextrose 5% in Water 250 ml @ 0.5 MG/MIN 16.667 mls/hr IV .Q15H [facility] Rx#: [id number] Diltiazem 125 mg In 76.833 97 98.5 Sodium Chloride 0.9% 100 ml @ 10 MG/HR 10 mls/hr IV .[id number] [facility] Rx#: [id number] Oral 0 Other: Voiding Method Incontinent Incontinent Incontinent # Voids 1 0 - Constitutional General appearance: Present: no acute distress - EENT Eyes: Present: anicteric sclerae, EOMI ENT: Present: hearing grossly normal - Respiratory Details: breathing is even and unlabored - Cardiovascular Details: skin warm and dry - Gastrointestinal General gastrointestinal: Present: soft. Absent: tenderness - Integumentary Integumentary: Absent: cyanotic - Musculoskeletal Musculoskeletal: Present: generalized weakness - Psychiatric Psychiatric: Present: A&O x's 3 - Labs CBC & Chem 7: 11/30/23 10:18 11/30/23 10:18 Labs: Abnormal Lab Results - Last 24 Hours (Table) 11/29/23 11/30/23 11/30/23 Range/Units 21:05 05:59 10:18 WBC 14.0 H (3.8-10.6) k/uL RBC 2.72 L (4.30-5.90) m/uL Hgb 9.3 L (13.0-17.5) gm/dL Hct 28.7 L (39.0-53.0) % MCV 105.4 H (80.0-100.0) fL RDW 16.3 H (11.5-15.5) % Neutrophils # 13.1 H (1.3-7.7) k/uL Lymphocytes # 0.3 L (1.0-4.8) k/uL Chloride (98-107) mmol/L Carbon Dioxide (22-30) mmol/L BUN (9-20) mg/dL Creatinine (0.66-1.25) mg/dL Glucose (74-99) mg/dL POC Glucose (mg/dL) 213 H 267 H (70-110) mg/dL Calcium (8.4-10.2) mg/dL 11/30/23 11/30/23 Range/Units 10:18 11:47 WBC (3.8-10.6) k/uL RBC (4.30-5.90) m/uL Hgb (13.0-17.5) gm/dL Hct (39.0-53.0) % MCV (80.0-100.0) fL RDW (11.5-15.5) % Neutrophils # (1.3-7.7) k/uL Lymphocytes # (1.0-4.8) k/uL Chloride 108 H (98-107) mmol/L Carbon Dioxide 19 L (22-30) mmol/L BUN 133 H* (9-20) mg/dL Creatinine 3.92 H (0.66-1.25) mg/dL Glucose 255 H (74-99) mg/dL POC Glucose (mg/dL) 250 H (70-110) mg/dL Calcium 7.4 L (8.4-10.2) mg/dL Microbiology - Last 24 Hours (Table) 11/28/23 13:04 Urine Culture - Final Urine,Voided Klebsiella pneumoniae 11/28/23 14:29 Blood Culture - Preliminary Blood 11/28/23 14:15 Blood Culture - Preliminary Blood Assessment and Plan (1) Malignant neoplasm metastatic from bladder Current Visit: Yes Status: Acute Priority: High Code(s): C67.9 - MALIGNANT NEOPLASM OF BLADDER, UNSPECIFIED SNOMED Code(s): 52303237 (2) Weakness Current Visit: Yes Status: Acute Priority: Medium Code(s): R53.1 - WEAKNESS SNOMED Code(s): 14283607 (3) COVID Current Visit: Yes Status: Acute Priority: High Code(s): U07.1 - COVID-19 SNOMED Code(s): 065575950 (4) Acute kidney injury Current Visit: Yes Status: Acute Priority: High Code(s): N17.9 - ACUTE KIDNEY FAILURE, UNSPECIFIED SNOMED Code(s): 54271234 (5) UTI (urinary tract infection) Current Visit: Yes Status: Acute Priority: High Code(s): N39.0 - URINARY TRACT INFECTION, SITE NOT SPECIFIED SNOMED Code(s): 33907471 Plan: Acute on chronic kidney disease -Kidney function has not improved with hydration, creatinine now 3.9 -Nephrology consulted for further evaluation Dysphagia: -Significant decrease in oral intake due to inability to swallow over the last 2-3 days. Concern for stricture due to mass/XRT. - Progressing malnutrition - Consult placed to general surgery for evaluation for EGD/peg placement -S/p EGD/peg placement. Surgery procedure noted reviewed, no stricture noted. PEG tube placed without complication. Felt Pad Cutter consulted to begin parenteral nutrition Confusion: - Worsening x 2-3 days prior to admission - CT brain ordered revealing no acute intracranial processes - Infectious workup ordered. CXR showed moderate left pleural effusion. Urine C/S positive for K. pneumoniae, sensitive to Rocephin, continues on the same - Blood culture negative thus far - Mentation has significantly improved since admission, at baseline COVID: -Tested positive for same 6 weeks ago, possible reinfection vs same infection Pleural effusion: - CXR showing moderate left pleural effusion increased form prior study. Chest US revealing left pleural pocket measuring 10 cm - Pulm following, considering thoracentesis Metastatic Urothelial carcinoma: -Full history stated in HPI. -Biopsy of left neck mass revealed metastatic non-small cell carcinoma consistent with metastatic high-grade urothelial carcinoma. He has underwent 3 of 5 fractions of palliative RT to left neck mass with Dr. Juarez. Unfortunately, patient has had numerous hospital admissions since July and also was in rehab delaying care/treatment. He finally was able to get PET CT on 11/08/23 which revealed abnormal uptake within the soft tissues including the l eft neck, left medial shoulder, and proximal left paraspinal region and upper thorax. With suspicion of some abnormal uptake within the posterior wall urinary bladder. -Patient was recommended to be started on immunotherapy with Tecentriq and was scheduled for his first cycle on 11/19/23. Unfortunately peripheral access was not able to be obtained and stat referral was sent for port placement, but was not able to be obtained prior to admission. Spoke with general surgery, they do not recommend chest port at this time. Spoke with vascular surgery for evaluation for port placement in upper extremity, Plan for placement on 12/03 -Unfortunately treatment will again have to be delayed until patient acutely recovers and we can improve his PS -Wound care consulted for evaluation of radiation induced dermatitis/necrosis of upper chest and neck attests: I have seen and examined patient, performed H&P, developed impression and plan of care. Discussed with dictator. Agree with documentation, dictated as a scribe
[2023-12-01 00:35] LABS: Glucose,Whole Blood 310 mg/dL (70-110)
[2023-12-01 06:28] LABS: Glucose,Whole Blood 288 mg/dL (70-110)
[2023-12-01] MEDS: dexAMETHasone 2 MG TAB PO SCH (09:26)
[2023-12-01] MEDS ORDERED: bisacodyL 10 MG SUPP RECTAL PRN (11:07)
--- NOTE | 2023-12-01 11:21 | P.PN ---
Subjective Progress Note Date: 12/01/23 This is a 73-year-old male patient with known history of metastatic urothelial carcinoma of the bladder. The patient is coming into the hospital because of dehydration, generalized weakness, falls and failure to thrive. The has noted significant change in his condition over the past 24 to 48 hours and the patient was also having diminished level of consciousness and he was acting encephalopathic. For that reason, the patient was brought into the hospital. I reviewed the records in regards to his metastatic urothelial cancer. The patient has had previous bladder cancer that was treated with chemoradiation therapy back in 2019. He was lost to follow-up and subsequently in July 2023, the patient was found to have a large neck mass and a biopsy of the neck mass was consistent with metastatic disease. At that point, the patient was referred to medical oncology and radiation oncology. He was given 5 radiation therapy treatments to his chest which resulted into significant amount of radiation induced skin necrosis and damage to his neck. The patient also was found to have facial and left neck and eye swelling and this was attributed to a nonocclusive thrombus in the left internal jugular vein and superficial thrombus in the cephalic veins. The based on that, the patient was unable to complete his radiation therapy. He does have severe radiation-induced dermatitis within open the area of skin necrosis in the mid part of the chest just above the sternum. The patient as such was supposed to start also immunotherapy. Due to failure of a port insertion and IV access, the patient did not receive any radiation therapy. At this point in time, he is having difficulties with swallowing. Unable to have full meals and according to the his oral intake is been quite diminished. He came into the hospital and he is still was found to be positive for COVID-19. Note that he was diagnosed having COVID-19 infection back in September 2023 and since then the test and the PCR turned out to be positive. The chest x-ray showed a moderate size left-sided pleural effusion. This is a new finding as the patient is known to haveA left-sided pleural effusion and this was also seen on a PET/CT that was done on 11/11/2023 that showed abnormal uptake in the soft tissue in the left neck and left medial shoulder and left paraspinal region in the upper thorax. There was also suspicious uptake within the posterior wall of the urinary bladder. Moderate size pleural effusion was also seen that was present. His echocardiogram from 08/07/2023 showed a preserved LV function with an ejection fraction of 50 to 55%. No significant valvular abnormalities. On his labs, the patient was found to have a WBC count of 8.5 with a hemoglobin 9.8 and a platelet count of 309. The BUN was 107 with a creatinine of 3.47 and the patient obviously had a component of an acute kidney injury on top of chronic kidney disease. The sodium was at 143 with a potassium level of 4.5, serum bicarb was at 17, proBNP level was 5590 and the troponin was 0.06. LFTs were normal. As mentioned CO VID-19 testing was still positive. The patient is currently on portable oxygen nasal cannula with a pulse ox of 95%. He is profoundly weak and lethargic at this point. He was started on IV fluid hydration. His comorbid conditions include coronary artery disease with previous coronary stents, diabetes mellitus, hypertension, hyperlipidemia, childhood polio and history of CHF with preserved LV function. On today's evaluation of 11/29/2023, the patient is being seen for a follow-up. The patient remains NPO. Noted the patient was supposed to undergo a PEG tube insertion. However, this procedure has been kept on hold as the patient went into atrial fibrillation with rapid ventricular response. This occurred yesterday afternoon. The patient was started on Cardizem drip and the dose was titrated. There was no response and currently Cardizem running at 10 mg an hour. Subsequently, the patient was started also on amiodarone drip at 1 mg/min. He is currently tachycardic and heart rate is ranging between 130 and 140. His anticoagulation was placed on hold and I suggested putting the patient on IV heparin for the time being. No other significant events overnight. Patient remains NPO. The sodium level is at 142 with a potassium level of 5.1. BUN is 118 with a creatinine of 3.85 which is slightly worse compared to yesterday. Coagulation profile is essentially within normal limits. Hemoglobin at 9.6 with a WBC count of 13.1 and a platelet count of 308. UA was abnormal an d the patient also tested positive for COVID-19 which is an obviously a persistent positive testing since October 2022. In terms of antibiotic coverage, the patient remains on IV Rocephin. Awaiting urine culture results. On today's evaluation of 11/30/2023, seen the patient for a follow-up. The que young is currently post PEG tube insertion. He is taking his oral medications through the PEG tube and the patient will be also started on enteral feeding for nutritional support. In terms of his left facial swelling and orbital swelling, this is improved compared to yesterday. The patient was restarted on anticoagulation with Eliquis 5 mg p.o. twice a day. Also, the patient is back into normal sinus rhythm. The patient was seen by cardiology. The patient is currently on metoprolol 50 mg p.o. twice a day and amiodarone 20 mg twice a day. Cardizem drip has been discontinued. The patient remains on Decadron 6 mg IV twice daily. No other new complaints otherwise for now. Is alert and will and communicating. The white cell count of 14 with a hemoglobin of 9.3 and a platelet count of 287. The BUN is at 133 with a creatinine of 3.9 and sodium is at 140 with a potassium level of 4.4. On today's evaluation of 12/01/2023, the patient is doing well and he has no specific complaints. He has a PEG tube in place and the patient was started also on enteral feeding for nutritional support and the patient is currently on Glucerna at a rate of 20 cc an hour. He is also on oxygen 2 L/min nasal cannula. No respiratory distress. No chest pain. No fever. No chills. The patient is empirically covered with IV Rocephin and urine cultures positive for Klebsiella pneumoniae. This is a true infection as the patient's UA was also abnormal suggestive of underlying UTI. Awaiting labs from today. Otherwise, the patient is alert and communicating and denies having any significant co mplaints. Anticoagulation is restarted and the patient is currently on 5 mg of Eliquis twice a day. He is also on albuterol 20 mg p.o. twice daily and metoprolol 50 mg p.o. twice daily the patient's current cardiac rhythm is sinus. Objective - Vital Signs Vital signs: Vital Signs Temp 97.5 F L 12/01/23 04:00 Pulse 70 12/01/23 04:00 Resp 20 12/01/23 04:00 BP 128/58 12/01/23 04:00 Pulse Ox 94 L 12/01/23 04:00 FiO2 Intake & Output 11/30/23 12/01/23 12/01/23 18:59 06:59 18:59 Intake Total 186.835 Output Total 150 Balance 186.835 -150 Weight 74.843 kg Intake: Intake, IV Titration 186.835 Amount Amiodarone 450 mg In 88.335 Dextrose 5% in Water 250 ml @ 0.5 MG/MIN 16.667 mls/hr IV .Q15H [facility] Rx#: [id number] Diltiazem 125 mg In 98.5 Sodium Chloride 0.9% 100 ml @ 10 MG/HR 10 mls/hr IV .[id number] [facility] Rx#: [id number] Output: Urine 150 Other: Voiding Method Incontinent Incontinent # Voids 1 - Exam GENERAL EXAM: Alert and crying, debilitated, cachectic, with significant left facial, left orbital and left neck swelling. The patient is currently on 4 L of O2 nasal cannula HEAD: Significant facial edema and left periorbital edema. EYES: Normal reaction of pupils, equal size. NOSE: Clear with pink turbinates. THROAT: No erythema or exudates. NECK: Severe pericervical edema, skin is taut and hard with left-sided mass CHEST: Upper chest edema and radiation dermatitis. LUNGS: Equal air entry with no crackles, wheeze, rhonchi or dullness. There is significant upper airway edema, with mild stridor. CVS: Irregular with rapid ventricular response consistent with atrial fibrillation with rapid ventricular response ABDOMEN: No hepatosplenomegaly, active bowel sounds, no guarding or rigidity. The patient has a PEG tube in his mid abdomen and the exit site is dry clean and intact. SPINE: No scoliosis or deformity SKIN: Upper chest radiation dermatitis/burn/open wound, there is an area of central necrosis with a scab just above the sternum. CENTRAL NERVOUS SYSTEM: Delirious, essentially nonverbal, intermittent s pontaneously opens eyes. Does not follow commands. No obvious focal deficits, tone is normal in all 4 extremities. EXTREMITIES: There is significant upper extremity edema, worse on the left. No clubbing, or cyanosis. Peripheral pulses are intact. - Labs CBC & Chem 7: 11/30/23 10:18 11/30/23 10:18 Labs: Abnormal Lab Results - Last 24 Hours (Table) 11/30/23 11/30/23 11/30/23 Range/Units 10:18 10:18 11:47 WBC 14.0 H (3.8-10.6) k/uL RBC 2.72 L (4.30-5.90) m/uL Hgb 9.3 L (13.0-17.5) gm/dL Hct 28.7 L (39.0-53.0) % MCV 105.4 H (80.0-100.0) fL RDW 16.3 H (11.5-15.5) % Neutrophils # 13.1 H (1.3-7.7) k/uL Lymphocytes # 0.3 L (1.0-4.8) k/uL Chloride 108 H (98-107) mmol/L Carbon Dioxide 19 L (22-30) mmol/L BUN 133 H* (9-20) mg/dL Creatinine 3.92 H (0.66-1.25) mg/dL Glucose 255 H (74-99) mg/dL POC Glucose (mg/dL) 250 H (70-110) mg/dL Calcium 7.4 L (8.4-10.2) mg/dL 11/30/23 12/01/23 12/01/23 Range/Units 17:56 00:33 06:26 WBC (3.8-10.6) k/uL RBC (4.30-5.90) m/uL Hgb (13.0-17.5) gm/dL Hct (39.0-53.0) % MCV (80.0-100.0) fL RDW (11.5-15.5) % Neutrophils # (1.3-7.7) k/uL Lymphocytes # (1.0-4.8) k/uL Chloride (98-107) mmol/L Carbon Dioxide (22-30) mmol/L BUN (9-20) mg/dL Creatinine (0.66-1.25) mg/dL Glucose (74-99) mg/dL POC Glucose (mg/dL) 269 H 310 H 288 H (70-110) mg/dL Calcium (8.4-10.2) mg/dL Microbiology - Last 24 Hours (Table) 11/28/23 14:29 Blood Culture - Preliminary Blood 11/28/23 14:15 Blood Culture - Preliminary Blood 11/28/23 13:04 Urine Culture - Final Urine,Voided Klebsiella pneumoniae Assessment and Plan Plan: Acute hypoxic respiratory failure and the patient is currently on 2 L O2 nasal cannula. Chest x-ray showing a chronic left-sided pleural effusion. Diagnostic thoracentesis not been done. This could be potentially malignant in nature. CHF related pleural effusion cannot be completely ruled out. Nevertheless, this pleural effusion has been present and it was already seen on a previous PET/CT that was done in October 2023. Known history of metastatic urothelial cancer initially treated with chemoradiation therapy back in 2019. Subsequently the patient developed metastatic disease with a large left neck mass. The patient originally underwent a transurethral resection of bladder cancer on 03/03/2020 and he was found to have a 3 cm urothelial carcinoma with papillary features and he opted for concurrent chemotherapy and radiation therapy with a combination of cisplatin and Taxol rather than surgical resection. Failure to thrive and diminished oral intake and significant dehydration, the patient is post PEG tube insertion and the patient was started on Glucerna for enteral feeding and nutritional support Acute on top of chronic kidney injury secondary to above, with interval worsening renal function, creatinine is stable and awaiting labs from today Dysphagia secondary radiation therapy to the neck Metastatic urothelial carcinoma with a large left neck mass and the patient was treated with radiation therapy this was complicated by severe radiation dermatitis and necrosis Non-anion gap metabolic acidosis secondary to above, improved compared to yesterday COVID-19 infection diagnosed in September 2023 and the patient continues to be PCR positive Left facial, orbital and neck swelling related to thrombosis of the left IJ and the patient has also superficial venous thrombosis involving the left cephalic vein, the patient is currently on anticoagulation with Eliquis Atrial fibrillation with rapid ventricular response, currently on a combination of metoprolol and oral amiodarone and the patient is currently on anticoagulation with Eliquis, the patient has converted to normal sinus rhythm Hypertension Hyperlipidemia Diabetes mellitus type 2 CHF with preserved LV function Coronary artery disease Osteoarthritis Chronic back pain History of childhood polio syndrome Plan Patient is currently on 2 L of O2 nasal cannula The patient is currently on oral metoprolol and amiodarone and anticoagulation with Eliquis. Cardiac rhythm is back to sinus. Continue amiodarone 200 mg p.o. twice a day Continue metoprolol 50 mg p.o. twice daily Continue Eliquis 5 mg p.o. twice a day Patient is post PEG tube insertion and the patient was started on Glucerna for enteral feeding nutrition support IV fluids and monitor renal function Titrate oxygen flow to maintain saturation above 90% currently on 2 L/min nasal cannula Monitor renal function, awaiting labs from today Ask radiation oncology to evaluate for significant dermatitis over the skin. Oncology consultation A port will be also inserted for IV access at the later stage Prognosis remains poor. Will continue to follow.
--- NOTE | 2023-12-01 11:26 | P.NPCON ---
History of Present Illness - Reason for Consult acute renal failure - History of Present Illness Patient is a 73-year-old male with history of chronic kidney disease NKF stage IIIB to 4 with baseline creatinine around 1.2-1.5 mg/dL. Patient has underlying history of metastatic urothelial carcinoma. Noted to have left neck mass with metastases to shoulder and paraspinal region. Currently maintained on chemotherapy and scheduled to start immunotherapy. Patient was admitted to the hospital with increased confusion. He has had decreased oral intake for about 1 week prior to admission with increased w eakness as well. Found to have urinary tract infection with urine culture growing Klebsiella pneumonia. Maintained on ceftriaxone. PEG tube was placed this admission and patient was started on tube feeding last night. He has been maintained on IV fluids and renal function continues to deteriorate. Blood pressure is noted to be low with systolic in the 80s and 90s on 11/28/2023 and 11/29/2023. Urine output not charted. Patient voids in briefs. Serum creatinine has increased to 3.9 with BUN at 133. Patient remains confused. Review of Systems As per HPI Past Medical History Past Medical History: Coronary Artery Disease (CAD), Cancer, Diabetes Mellitus, Hyperlipidemia, Hypertension, Myocardial Infarction (ID), Osteoarthritis (OA) Additional Past Medical History / Comment(s): Bladder cancer stage with treatment, in remission since 2020. IDDM type II, post polio syndrome,leg length discrepancy, bronchitis, chronic low back pain. Last Myocardial Infarction Date:: 07/23/19 History of Any Multi-Drug Resistant Organisms: None Reported Past Surgical History: Heart Catheterization With Stent, Orthopedic Surgery Additional Past Surgical History / Comment(s): Cystoscopy, TURBT x2, closure of patent urachus bladder tumor as infant, R leg surgery d/t polio-lengthening, cardiac stents 2018; Right hip surgery 11/03/2022 Past Anesthesia/Blood Transfusion Reactions: No Reported Reaction Date of Last Stent Placement:: 07/23/19 Past Psychological History: No Psychological Hx Reported Smoking Status: Former smoker Past Alcohol Use History: None Reported Past Drug Use History: None Reported - Past Family History Father History Unknown: Yes Mother Additional Family Medical History / Comment(s): Mother of in a MVA when pt was 15 yrs old. Brother(s) Additional Family Medical History / Comment(s): Pt has one brother who of a bowel problem and another brother that of a ruptured aneurysm. Medications and Allergies Home Medications Medication Instructions Recorded Confirmed Type Aspirin 81 mg PO DAILY #90 chewable 07/25/19 11/27/23 Rx Atorvastatin [Lipitor] 80 mg PO DAILY 05/13/20 11/27/23 History Liraglutide [Victoza 3-Sam] 1.8 mg SQ DAILY 08/04/23 11/27/23 History Apixaban [Eliquis] 5 mg PO BID #60 tab 08/10/23 11/27/23 Rx Magnesium Oxide [Mag-Ox] 400 mg PO DAILY #30 tab 08/10/23 11/27/23 Rx Metoprolol Tartrate [Lopressor] 50 mg PO BID #60 tab 08/10/23 11/27/23 Rx Albuterol Sulfate [Albuterol 2 puff INHALATION RT-Q6H PRN 08/17/23 11/27/23 History Sulfate Hfa] Loratadine [Claritin] 5 mg PO DAILY #30 tab 08/31/23 11/27/23 Rx Tamsulosin [Flomax] 0.4 mg PO DAILY #30 cap 08/31/23 11/27/23 Rx Budesonide/Formoterol Fumarate 2 puff INHALATION RT-BID 09/06/23 11/27/23 History [Symbicort 80-4.5 Mcg Inhaler] Ipratropium-Albuterol Nebulize 3 ml INHALATION RT-QID 09/06/23 11/27/23 History [Duoneb 0.5 mg-3 mg/3 ml Soln] Pantoprazole [Protonix] 40 mg PO AC-BID@0800,1700 09/06/23 11/27/23 History Furosemide [Lasix] 80 mg PO BID@0900,1600 #60 tab 09/11/23 11/27/23 Rx Acetaminophen [Tylenol 8 Hour] 650 mg PO Q8H PRN 10/09/23 11/27/23 History Calcium Carbonate [Tums] 500 mg PO PC-TID 10/09/23 11/27/23 History Cholecalciferol [Vitamin D3 (25 50 mcg PO DAILY 10/09/23 11/27/23 History Mcg = 1000 Iu)] Lactulose [Cephulac] 20 gm PO DAILY 10/09/23 11/27/23 History Ascorbic Acid [Vitamin C] 500 mg PO DAILY tab 10/13/23 11/27/23 Rx Zinc Sulfate [Orazinc] 220 mg PO DAILY cap 10/13/23 11/27/23 Rx amLODIPine [Norvasc] 5 mg PO DAILY #1 tab 10/16/23 11/27/23 Rx HYDROcodone/APAP 7.5-325MG [Robert Lee 1 tab PO Q4H PRN 11/27/23 11/27/23 History 7.5-325] Levothyroxine Sodium [Synthroid] 50 mcg PO DAILY 11/27/23 11/27/23 History Morphine Sulfate [Barb] 30 mg PO Q12H 11/27/23 11/27/23 History Ondansetron [Zofran] 4 mg PO Q4H PRN 11/27/23 11/27/23 History SILVER sulfADIAZINE CREAM 1 applic TOPICAL DAILY 11/27/23 11/27/23 History [Silvadene Cream] Sennosides [Senokot] 8.6 mg PO BID 11/27/23 11/27/23 History Allergies Allergy/AdvReac Type Severity Reaction Status Date / Time No Known Allergies Allergy Verified 11/27/23 15:25 Physical Exam Vitals: Vital Signs Temp Pulse Resp BP Pulse Ox 12/01/23 04:00 97.5 F L 70 20 128/58 94 L 12/01/23 01:24 68 18 12/01/23 00:00 97.4 F L 68 18 129/60 95 11/30/23 20:00 97.7 F 70 18 132/63 97 11/30/23 15:50 97.9 F 72 20 146/55 98 11/30/23 12:13 98.3 F 65 18 114/53 99 Intake and Output 11/30/23 12/01/23 12/01/23 22:59 06:59 14:59 Intake Total 170 Output Total 150 Balance -150 170 Intake: IV 10 Invasive Line 4 10 Tube Feeding 160 Output: Urine 150 Other: Voiding Method Incontinent Incontinent Incontinent # Voids 1 Patient is awake, comfortable. No acute distress Examination of the heart S1 and S2 Examination of the lungs bilateral breath sounds are heard Abdomen is soft. PEG tube noted Examination of lower extremities shows edema 2+ bilaterally TOWEL SEWER exam shows patient is moving all 4 extremities. Results - Lab Results Most recent lab results Calcium 7.4 mg/dL (8.4-10.2) L 11/30/23 10:18 Phosphorus 5.7 mg/dL (2.5-4.5) H 11/27/23 11:56 Magnesium 1.9 mg/dL (1.6-2.3) 11/27/23 11:56 11/30/23 10:18 11/30/23 10:18 Assessment and Plan Assessment: 1. Acute kidney injury secondary to hemodynamic ATN, rule out urine retention. Patient will need renal replacement therapy if renal function continues to deteriorate. This may not be ideal given his underlying comorbidities including metastatic cancer however at this time by foot like to proceed with dialysis if indicated. UA is suggestive of UTI. Check ultrasound of the kidneys. 2. Non-gap metabolic acidosis secondary to acute kidney injury 3. Metastatic urothelial carcinoma maintained on chemotherapy. Metastases noted to, left shoulder and paraspinal region neck. Scheduled to start immunotherapy. 4. Klebsiella pneumonia UTI maintained on Rocephin 5. CK D NKF IIIB to 4 with previous creatinine 1.4-1.7 mg/dL as of with multiple previous episodes of acute kidney injury. Plan: Continue with IV bicarb, change composition of bicarb drip and basic in half normal saline given the hyperglycemia. Insert [place]al[place] catheter Patient will need to start renal replacement therapy if renal function does not improve. He is not an ideal candidate for renal replacement therapy given his underlying comorbidities including metastatic urothelial cancer. At this time why per like to proceed with dialysis if indicated. Continue with tube feedings Repeat labs in a.m. Thank you for the consultation. We will continue to follow the patient with you during his hospitalization.
[2023-12-01 11:47] LABS: Glucose,Whole Blood 274 mg/dL (70-110)
[2023-12-01] MEDS: SODIUM CHLORIDE 0.45% 1,000 ML with SODIUM BICARB (1 MEQ/ML) 100 ML IV SCH (12:17)
[2023-12-01] MEDS: LACTULOSE 20 GM/30 ML CUP PO ONE (12:17)
[2023-12-01 13:43] LABS: African American GFR (CKD) 18 (>60 ml/min/1.73 sqM); Anion Gap 18 mmol/L; Calcium 7.1 mg/dL (8.4-10.2); Carbon Dioxide 13 mmol/L (22-30); Chloride 105 mmol/L (98-107); Glucose 245 mg/dL (74-99); Non-African American GFR(CKD) 16 (>60 ml/min/1.73 sqM); Potassium 4.7 mmol/L (3.5-5.1); Sodium 136 mmol/L (137-145)
[2023-12-01 13:51] LABS: Blood Urea Nitrogen 143 mg/dL (9-20)
--- NOTE | 2023-12-01 14:41 | P.PN ---
Subjective HISTORY OF PRESENT ILLNESS: This is a 73-year-old male with a past medical history significant for metastatic urothelial cancer, left neck mass, coronary artery disease with previous stenting, hypertension, hyperlipidemia, valvular heart disease, thrombus of left IJ, and carotid stenosis. Patient follows in the office with Dr. Linda. We have been asked to see the patient in consultation for atrial fibrillation with RVR. Patient examined at the bedside. Patient presented to the emergency room with a chief complaint of weakness and failure to thrive. Patient is unable to swallow. He failed a swallow screen. Plan is for EGD with PEG tube insertion today. His anticoagulation remains on hold. The patient was found to be in A-fib with RVR upon admission to the hospital. He remains in A- fib with RVR. He is currently on a Cardizem drip at 10 mg an hour. DIAGNOSTICS: - EKG reveals A-fib with RVR - Chest xray stable moderate left pleural effusion - Laboratory data: WBC 8.5. Hemoglobin 9.8. Platelet count 309. INR 1.3. Sodium 143. Potassium 4.5. BUN 107. Creatinine 3.47. Troponin 0.053. 0.020. 0.064. proBNP 5590. TSH 3.600. - Current home cardiac medications include amlodipine 5 mg daily, metoprolol tartrate 50 mg twice a day, Lasix 80 mg twice a day, Lipitor 80 mg daily, aspirin 81 mg daily, Eliquis 5 mg twice a day. - Most recent echocardiogram obtained in May 2022 revealed normal ejection fraction with moderate MR - Cardiac catheterization history: 2019 revealing critical disease of the RCA, intermediate disease involving the left circumflex, and intermediate disease involving the ramus intermedius. Patient underwent stenting to the proximal RCA and mid RCA. 11/30/2023 Patient examined at the bedside. Patient is status post PEG tube placement yesterday with general surgery. He remains on IV Cardizem and IV amiodarone. He has converted to sinus mechanism and is maintaining sinus mechanism at the time of examination. Limited echo revealed ejection fraction 40 to 45%. 12/01/2023 Pt seen and examined laying in bed with at the bedside. he is awake but not really communicating appropriately. Laboratory data reviewed, sodium 136, potassium 4.7 and creatinine 3.64. Blood pressure 104/56 heart rate 69 afebrile maintaining oxygen saturation on nasal cannula. He is maintaining sinus mech anism on telemetry. PHYSICAL EXAM: VITAL SIGNS: Reviewed. GENERAL: Well-developed in no acute distress. HEENT: Head is normocephalic. Pupils are equal, round. Sclerae anicteric. Mucous membranes of the mouth are moist. Neck swelling noted. No JVD or thyromegaly LUNGS: Respirations even and unlabored. Lungs essentially clear to auscultation bilaterally. HEART: Regular rate and rhythm. S1 and S2 heard. ABDOMEN: Soft. Nondistended. Nontender. EXTREMITIES: Normal range of motion. No clubbing or cyanosis. Peripheral pulses intact. No lower extremity edema NEUROLOGIC: Awake and alert. Oriented x 1 SKIN: Radiation burn noted to chest with swelling noted. ASSESSMENT: Generalized weakness Failure to thrive Dysphagia, patient unable to swallow, status post PEG tube placement Covid 19 Urothelial cancer with metastasis to the neck s/p radiation Atrial fibrillation with RVR, appears to be new onset History of left IJ thrombus, on Eliquis outpatient Abnormal troponins, flat, type II ND Coronary artery disease with previous stenting Valvular heart disease including moderate MR Hypertension Hyperlipidemia PLAN: No dobutamine infusion due to atrial fib. Continue amiodarone 200 mg BID for 2 weeks then decrease to 200 mg daily. Continue anticoagulation with Eliquis Discussed with his consideration for palliative care/hospice approach. Further discussion should be considered with oncology/primary care team. We will follow along as needed, follow up in the office upon discharge with Dr. Linda. Nurse practitioner note has been reviewed by physician. Signing provider agrees with the documented findings, assessment, and plan of care documented by DISCHARGING MACHINE OPERATOR as a scribe. Objective - Vital Signs Vital signs: Vital Signs Temp 97.5 F L 12/01/23 04:00 Pulse 70 12/01/23 04:00 Resp 20 12/01/23 04:00 BP 128/58 12/01/23 04:00 Pulse Ox 94 L 12/01/23 04:00 FiO2 Intake & Output 11/30/23 12/01/23 12/01/23 18:59 06:59 18:59 Intake Total 186.835 170 Output Total 150 Balance 186.835 -150 170 Weight 74.843 kg Intake: IV 10 Invasive Line 4 10 Intake, IV Titration 186.835 Amount Amiodarone 450 mg In 88.335 Dextrose 5% in Water 250 ml @ 0.5 MG/MIN 16.667 mls/hr IV .Q15H [facility] Rx#: [id number] Diltiazem 125 mg In 98.5 Sodium Chloride 0.9% 100 ml @ 10 MG/HR 10 mls/hr IV .[id number] [facility] Rx#: [id number] Tube Feeding 160 Output: Urine 150 Other: Voiding Method Incontinent Incontinent Incontinent # Voids 1 - Labs CBC & Chem 7: 11/30/23 10:18 12/01/23 12:02 Labs: Abnormal Lab Results - Last 24 Hours (Table) 11/30/23 11/30/23 11/30/23 Range/Units 10:18 10:18 11:47 WBC 14.0 H (3.8-10.6) k/uL RBC 2.72 L (4.30-5.90) m/uL Hgb 9.3 L (13.0-17.5) gm/dL Hct 28.7 L (39.0-53.0) % MCV 105.4 H (80.0-100.0) fL RDW 16.3 H (11.5-15.5) % Neutrophils # 13.1 H (1.3-7.7) k/uL Lymphocytes # 0.3 L (1.0-4.8) k/uL Chloride 108 H (98-107) mmol/L Carbon Dioxide 19 L (22-30) mmol/L BUN 133 H* (9-20) mg/dL Creatinine 3.92 H (0.66-1.25) mg/dL Glucose 255 H (74-99) mg/dL POC Glucose (mg/dL) 250 H (70-110) mg/dL Calcium 7.4 L (8.4-10.2) mg/dL 11/30/23 12/01/23 12/01/23 Range/Units 17:56 00:33 06:26 WBC (3.8-10.6) k/uL RBC (4.30-5.90) m/uL Hgb (13.0-17.5) gm/dL Hct (39.0-53.0) % MCV (80.0-100.0) fL RDW (11.5-15.5) % Neutrophils # (1.3-7.7) k/uL Lymphocytes # (1.0-4.8) k/uL Chloride (98-107) mmol/L Carbon Dioxide (22-30) mmol/L BUN (9-20) mg/dL Creatinine (0.66-1.25) mg/dL Glucose (74-99) mg/dL POC Glucose (mg/dL) 269 H 310 H 288 H (70-110) mg/dL Calcium (8.4-10.2) mg/dL Microbiology - Last 24 Hours (Table) 11/28/23 14:29 Blood Culture - Preliminary Blood 11/28/23 14:15 Blood Culture - Preliminary Blood 11/28/23 13:04 Urine Culture - Final Urine,Voided Klebsiella pneumoniae
[2023-12-01 18:00] LABS: Glucose,Whole Blood 204 mg/dL (70-110)
--- NOTE | 2023-12-01 19:13 | P.PN ---
Progress Note - Text Progress Note Date: 12/01/23 Chief Complaint: Increasing confusion Patient is a 73-year-old with a known history of metastatic high-grade urothelial carcinoma status post left neck mass lymph node biopsy, urothelial cancer status post chemo/RT in 06/2020, coronary artery disease with history of stent placement, chronic HFpEF, CKD stage IIIb with baseline creatinine level 1.5-1.7, diabetic nephropathy, diabetes type 2 insulin-dependent, hypertension, osteoarthritis, chronic low back pain, prior history of smoking left upper extremity DVT diagnosed in July 2023 and is on Eliquis. In September 2023 was detected with COVID-19. October 17, 2023 was discharged to rehab. On 27 October 2023 patient was brought home. Otherwise he would not be able to get treatment for his underlying cancer. Patient in July did get radiation treatment 3 out of 5. With changes on the skin now. Patient was due to get immunotherapy last week but because of difficult IV access unable to get the same. Port could not be placed because area of radiation in the chest is rather angry appearing as patient has been scratching the same. In the last 2 days patient is becoming increasingly confused. Unable to get around at all. Decreased appetite. No fever reported. Increasing shortness of breath. Patient tested positive for COVID-19. Some lactic acidosis. Worsening of renal function. Patient's at the bedside is able to give the history. Patient himself is rather delirious. November 28: A bit less delirious. Following some commands. at the bedside. Discussed with Dr. Tsai. Will need tube feeding. NG tube difficult because of patient's facial swelling. Later decision made to proceed with the PEG tube feeding. Continue with IV fluids. IV ceftriaxone. Left side of the face still swollen. November 29: Laying in bed. Tired. PEG tube placed. Patient was on IV amiodarone. IV heparin was discontinued. Eliquis being started today. Also IV Cardizem. Heart rate was up to 130s this morning. Start the patient on sodium bicarbonate drip for metabolic acidosis. November 30: Sitting up in bed. More awake. Answering simple questions. present. PEG tube feeding to be started this afternoon. On IV ceftriaxone. Sodium bicarbonate drip. On p.o. Lopressor. Switched over to p.o. amiodarone. Plan to hold Eliquis over the weekend so that the port can be placed on Sunday. By vascular. December 01: Getting PEG tube feeding at 20 cc an hour. Laying in bed. Tired. NPO. Plan is for patient to get a port placed on Sunday. Discussed with the at the bedside. Poor functional status. Prognosis guarded. Active Medications Acetaminophen (Acetaminophen Tab 325 Mg Tab) 650 mg PO Q6HR PRN PRN Reason: Mild Pain or Fever > 100.5 Acetaminophen (Acetaminophen Tab 325 Mg Tab) 650 mg PO Q8H PRN PRN Reason: Pain Hydrocodone Bitart/Acetaminophen (Hydrocodone/Apap 5-325mg 1 Each Tab) 1 each PO Q4HR PRN PRN Reason: Moderate Pain (Scale 4 to 6) Last Admin: 12/01/23 09:27 Dose: 1 each Albuterol Sulfate (Albuterol Hfa Inhaler) 2 puff INHALATION RT-Q6H PRN PRN Reason: Wheezing Amiodarone HCl (Amiodarone 200 Mg Tab) 200 mg PO BID [facility] Last Admin: 12/01/23 09:26 Dose: 200 mg Apixaban (Apixaban 5 Mg Tab) 5 mg PO BID [facility]; Protocol Last Admin: 12/01/23 09:27 Dose: 5 mg Atorvastatin Calcium (Atorvastatin 80 Mg Tab) 80 mg PO DAILY [facility] Last Admin: 12/01/23 09:27 Dose: 80 mg Bisacodyl (Bisacodyl 10 Mg Supp) 10 mg RECTAL DAILY PRN PRN Reason: Constipation Budesonide/Formoterol Fumarate (Symbicort 80-4.5 Mcg Inhaler) 2 puff INHALATION RT-BID [facility] Last Admin: 12/01/23 08:36 Dose: 2 puff Dextrose/Water (Dextrose 50% Syringe 50 Ml) 25 ml IVP PER PROTOCOL PRN; Protocol PRN Reason: Hypoglycemia Dextrose/Water (Dextrose 50% Syringe 50 Ml) 50 ml IVP PER PROTOCOL PRN; Protocol PRN Reason: Hypoglycemia Ceftriaxone Sodium 2 gm/ (Sodium Chloride) 50 mls @ 100 mls/hr IVPB Q24HR [facility]; Protocol Last Admin: 12/01/23 09:26 Dose: 100 mls/hr Sodium Bicarbonate 100 ml/ (Sodium Chloride) 1,100 mls @ 75 mls/hr IV .[id number] [facility] Last Admin: 12/01/23 12:17 Dose: 75 mls/hr Insulin Aspart (Insulin Aspart (Novolog) 100 Unit/Ml Vial) 0 unit SQ Q6H [facility]; Protocol Last Admin: 12/01/23 18:01 Dose: 4 unit Insulin Detemir (Insulin Detemir (Levemir) 100 Unit/Ml Syr) 20 unit SQ HS [facility] Last Admin: 12/01/23 00:40 Dose: 20 unit Levothyroxine Sodium (Levothyroxine 50 Mcg Tab) 50 mcg PO DAILY@0630 [facility] Last Admin: 12/01/23 04:49 Dose: 50 mcg Metoprolol Tartrate (Metoprolol Tartrate 50 Mg Tab) 50 mg PO BID [facility] Last Admin: 12/01/23 09:26 Dose: 50 mg Metoprolol Tartrate (Metoprolol Tartrate 5 Mg/5 Ml Vial) 5 mg IVP Q6HR PRN PRN Reason: Heart Rate - HIGH Morphine Sulfate (Morphine Sulfate 4 Mg/Ml Syringe) 4 mg IV Q4HR PRN PRN Reason: Severe Pain (Scale 7 to 10) Last Admin: 12/01/23 18:02 Dose: 4 mg Naloxone HCl (Naloxone 0.4 Mg/Ml 1 Ml Vial) 0.2 mg IV Q2M PRN PRN Reason: Opioid Reversal Liraglutide [Victoza 3-Sam] 0.6 Mg/0.1 Ml Ml 1.8 mg SQ DAILY [facility] Last Admin: 12/01/23 07:20 Dose: Not Given Ondansetron HCl (Ondansetron 4 Mg/2 Ml Vial) 4 mg IVP Q8HR PRN PRN Reason: Nausea And Vomiting Pantoprazole Sodium (Pantoprazole 40 Mg Tablet) 40 mg PO AC-BID@0800,1700 [facility] Last Admin: 12/01/23 18:02 Dose: 40 mg Tamsulosin HCl (Tamsulosin 0.4 Mg Cap.Er.24h) 0.4 mg PO DAILY [facility] Last Admin: 12/01/23 09:26 Dose: 0.4 mg Social history: Used to work in a [employer]. . 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 Patient Smoked for 50 Years Stopped in 2019. Drinking Excessive Alcohol up to 2019. On examination: VITAL SIGNS: 97.8, 71, 20, 112 x 46, 97% on 2 L GENERAL: Reclining in bed, tired s. CHEST wall: Some redness tenderness with some crusting upper chest.-Area of previous radiation EYES: Pupils equal. Conjunctiva normal. HEENT: Left side of the face rather swollen., oral cavity grossly normal. NECK: JVD normal; masses not palpable. Hard mass of the left upper neck going to the mandible. Hard. HEART: Heart sounds irregular; edema present LUNGS: Respiratory rate increased; decreased breath sounds. ABDOMEN: Soft, nontender, liver spleen not palpable, no masses palpable. PEG tube with feeding PSYCH: Able to answer simple questions EXTREMITY: Left upper extremity swelling MUSCULOSKELETAL:No Clubbing/cyanosis;muscles-grossly intact. OA NEUROLOGICAL: Some facial asymmetry secondary to left neck mass. Otherwise cranial nerves grossly intact. Moving all 4 limbs INVESTIGATIONS, reviewed in the clinical context: December 01: Potassium 4.7 BUN 143 creatinine 3.64 November: White count 14 hemoglobin 9.3 potassium 4.4 BUN 133 creatinine 3.92 bicarb November 29: White count 13.1 hemoglobin 9.6 platelets 308 potassium 5.1 BUN 118 creatinine 3.85 bicarb November 27: White count 8.5 hemoglobin 9.8 platelets 309 sodium 143 potassium 4.5 BUN 107 creatinine 3.47 lactic acid 2.7 phosphorus 5.7 troponin I 0.053 COVID-19 PCR: Detected EKG tracing personally reviewed by me-sinus tachycardia. Nonspecific ST-T wave changes. Chest x-ray film personally reviewed by me-large left pleural effusion. Assessment and plan: -Acute COVID-19 pneumonia,. Patient was positive for the same during September. PCR can be positive for few weeks. Possibility of new infection.: Better Dexamethasone 6 mg IV every 12-changed to 6 mg p.o. daily. Stop dexamethasone -Possible left basilar/atelectasis/pleural effusion. Seen by Dr. Tsai from pulmonary. Estill to be chronic. On previous CT scan. -Acute metabolic encephalopathy, with delirium multifactorial: Better -Metastatic urothelial carcinoma: -Completed treatment with concurrent chemo/RT in 06/2020. Was following up for observation in clinic through 11/2021 with no evidence of recurrence. Stopped f/u with urology in February 2022 due to insurance reasons, and has not had f/u since -Progressing left neck mass. Biopsy of the lt neck mass revealed metastatic non- small cell carcinoma consistent with metastatic high-grade urothelial carcinoma. Radiation treatment. In . [address] Patsy Banda-oncologist. Patient was due to get immunotherapy. But because of poor IV access could not get the same. Port could not be placed because of skin inflammation from radiation/scratching. -Acute hypoxic respiratory failure secondary to Covid 19:: Better 4 L nasal cannula -Chronic hypoxic respiratory failure Baseline 2 L nasal cannula -Chronic CHF exacerbation with preserved ejection fraction EF 50-55%: -Acute kidney injury likely ATN multifactorial. Creatinine is up from baseline. -Left facial swelling possibly from left IJ thrombosis. Previously had superficial venous thrombosis of the left cephalic vein. -Chronic kidney disease likely likely hydronephrosis secondary to cardiorenal syndrome. Along with right-sided hydronephrosis Follow renal function -Metabolic acidosis from chronic kidney disease sodium bicarbonate drip -Coronary artery disease with history of stent 2019 Lipitor, Lopressor -Chronic esophagitis with Otoole's esophagus Protonix -COPD in a prior smoker Ventolin when necessary. Symbicort. 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 Superficial thrombosis within the left cephalic vein. Eliquis Sleeve left upper extremity Followed by Dr. Montalvo from vascular. -Hyperlipidemia Lipitor -PEG tube placed on November [address] Finnegan -Diabetes type 2 insulin-dependent A1c 8.3, uncontrolled with hyperglycemia, secondary to steroids Lantus 20 units daily at bedtime. Accu-Cheks with sliding scale -Hypothyroid Synthroid 25 -BPH Flomax -Full code Dexamethasone discontinued. PEG tube feeding to continue. For port placement on Sunday. Discussed with the . Prognosis guarded. Past Medical History Past Medical History: Coronary Artery Disease (CAD), Cancer, Diabetes Mellitus, Hyperlipidemia, Hypertension, Myocardial Infarction (NV), Osteoarthritis (OA) Additional Past Medical History / Comment(s): Bladder cancer stage with treatment, in remission since 2020. IDDM type II, post polio syndrome,leg length discrepancy, bronchitis, chronic low back pain. Last Myocardial Infarction Date:: 07/23/19 History of Any Multi-Drug Resistant Organisms: None Reported Past Surgical History: Heart Catheterization With Stent, Orthopedic Surgery Additional Past Surgical History / Comment(s): Cystoscopy, TURBT x2, closure of patent urachus bladder tumor as , R leg surgery d/t polio-lengthening, cardiac stents 2018; Right hip surgery 11/03/2022 Past Anesthesia/Blood Transfusion Reactions: No Reported Reaction Date of Last Stent Placement:: 07/23/19 Past Psychological History: No Psychological Hx Reported Additional Psychological History / Comment(s): Pt resides with his spouse. He is confused and restless orientated to person only. Smoking Status: Former smoker Past Alcohol Use History: None Reported Additional Past Alcohol Use History / Comment(s): Pt started smoking in 1968 and quit 07/21/19. Prior ETOH abuse-pt states he hasnt had alcohol in months Past Drug Use History: None Reported
[2023-12-01 23:56] LABS: Glucose,Whole Blood 192 mg/dL (70-110)
[2023-12-02] MEDS: ONDANSETRON 4 MG/2 ML VIAL IVP PRN (02:59)
[2023-12-02 04:19] LABS: Anisocytosis Slight; Basophils % (A) 0 %; Eosinophils # (A) 0.1 k/uL (0-0.7); Eosinophils % (A) 1 %; HCT 31.7 % (39.0-53.0); HGB 10.2 gm/dL (13.0-17.5); Hypochromasia Slight; Lymphocytes # (A) 0.3 k/uL (1.0-4.8); Lymphocytes % (A) 2 %; MCV 103.1 fL (80.0-100.0); Macrocytosis Moderate; Mean Platelet Volume 11.6; Monocytes # (A) 0.8 k/uL (0-1.0); Monocytes % (A) 5 %; Neutrophils # (A) 15.3 k/uL (1.3-7.7); Neutrophils % (A) 93 %; Platelet Count 265 k/uL (150-450); RBC 3.08 m/uL (4.30-5.90); RDW 16.1 % (11.5-15.5); WBC 16.5 k/uL (3.8-10.6)
[2023-12-02] MEDS: THROMBIN (BOVINE) 5,000 UNIT VIAL TOPICAL PRN (04:37)
[2023-12-02 06:22] LABS: Glucose,Whole Blood 206 mg/dL (70-110)
[2023-12-02] MEDS ORDERED: LIDOCAINE 1% (10MG/ML) FOR IV START INTRADERMA PRN (07:13)
[2023-12-02] MEDS ORDERED: THROMBIN (BOVINE) 5,000 UNIT VIAL TOPICAL PRN (07:30)
[2023-12-02] MEDS: LACTATED RINGERS 1,000 ML IV SCH (08:34)
--- NOTE | 2023-12-02 10:34 | XR ---
EXAMINATION TYPE: XR chest 1V DATE OF EXAM: 12/02/2023 COMPARISON: 11/27/2023 HISTORY: Emesis, concern for aspiration TECHNIQUE: Single frontal view of the chest is obtained. FINDINGS: There is a persistent moderate left lower lobe opacity obscuring the left hemidiaphragm and costophre anil angle likely a pleural effusion with possible underlying infiltrate/atelectasis. The right lung remains stable. The pulmonary vasculature is not congested. The osseous structures are intact IMPRESSION: No change in the left lung base opacity as described above.
--- NOTE | 2023-12-02 10:36 | XR ---
Abdomen. HISTORY: Abdominal distention. COMPARISON: 08/22/2023. TECHNIQUE: 2 supine views of the abdomen were obtained. FINDINGS: There is a feeding tube within the stomach. The bowel gas pattern is nonspecific and there is no evidence of bowel obstruction. There are postsurgical changes of right hip fracture fixation. There is mild degenerative changes lef t hip. No suspicious abdominal or pelvic else cases are seen. IMPRESSION: 1. Feeding tube. 2. Nonspecific abdomen.
--- NOTE | 2023-12-02 11:09 | P.PN ---
Subjective Progress Note Date: 12/02/23 The patient had an emesis today. The nurse was concerned about his PEG tube placement. X-ray performed shows no sign of obstruction. On exam vital signs were stable. Abdomen soft. Probable ileus. Patient will have his PEG tube placed to dependent drainage. Objective - Vital Signs Vital signs: Vital Signs Temp 97.6 F 12/02/23 08:45 Pulse 83 12/02/23 08:45 Resp 20 12/02/23 09:08 BP 145/68 12/02/23 08:45 Pulse Ox 96 12/02/23 09:08 FiO2 Intake & Output 12/01/23 12/02/23 12/02/23 18:59 06:59 18:59 Intake Total 500 250 Output Total 450 150 200 Balance 50 -150 50 Intake: IV 20 10 Invasive Line 4 20 10 Tube Feeding 480 240 Output: Urine 450 150 200 Uretheral (Montalvo) 450 200 Other: Voiding Method Indwelling Catheter Indwelling Catheter Indwelling Catheter - Labs CBC & Chem 7: 12/02/23 04:06 12/01/23 12:02 Labs: Abnormal Lab Results - Last 24 Hours (Table) 12/01/23 12/01/23 12/01/23 Range/Units 11:45 12:02 17:58 WBC (3.8-10.6) k/uL RBC (4.30-5.90) m/uL Hgb (13.0-17.5) gm/dL Hct (39.0-53.0) % MCV (80.0-100.0) fL RDW (11.5-15.5) % Neutrophils # (1.3-7.7) k/uL Lymphocytes # (1.0-4.8) k/uL Sodium 136 L (137-145) mmol/L Carbon Dioxide 13 L (22-30) mmol/L BUN 143 H* (9-20) mg/dL Creatinine 3.64 H (0.66-1.25) mg/dL Glucose 245 H (74-99) mg/dL POC Glucose (mg/dL) 274 H 204 H (70-110) mg/dL Calcium 7.1 L (8.4-10.2) mg/dL 12/01/23 12/02/23 12/02/23 Range/Units 23:54 04:06 06:21 WBC 16.5 H (3.8-10.6) k/uL RBC 3.08 L (4.30-5.90) m/uL Hgb 10.2 L (13.0-17.5) gm/dL Hct 31.7 L (39.0-53.0) % MCV 103.1 H (80.0-100.0) fL RDW 16.1 H (11.5-15.5) % Neutrophils # 15.3 H (1.3-7.7) k/uL Lymphocytes # 0.3 L (1.0-4.8) k/uL Sodium (137-145) mmol/L Carbon Dioxide (22-30) mmol/L BUN (9-20) mg/dL Creatinine (0.66-1.25) mg/dL Glucose (74-99) mg/dL POC Glucose (mg/dL) 192 H 206 H (70-110) mg/dL Calcium (8.4-10.2) mg/dL Microbiology - Last 24 Hours (Table) 11/28/23 14:29 Blood Culture - Preliminary Blood 11/28/23 14:15 Blood Culture - Preliminary Blood
--- NOTE | 2023-12-02 11:36 | P.PN ---
Subjective Patient is seen for follow-up for acute kidney injury with history of chronic kidney disease. History of metastatic urothelial cancer. Scheduled for Mediport placement to start immunotherapy for cancer. Maintained on IV bicarb. Serum creatinine improved slightly yesterday to 3.6 mg/dL from peak of 3.9. Labs are pending from today. Montalvo catheter was placed yesterday. Patient remains confused. Objective - Vital Signs Vital signs: Vital Signs Temp 97.5 F L 12/02/23 11:24 Pulse 79 12/02/23 11:24 Resp 20 12/02/23 11:24 BP 104/49 12/02/23 11:24 Pulse Ox 99 12/02/23 11:24 FiO2 Intake & Output 12/01/23 12/02/23 12/02/23 18:59 06:59 18:59 Intake Total 500 250 Output Total 450 150 200 Balance 50 -150 50 Intake: IV 20 10 Invasive Line 4 20 10 Tube Feeding 480 240 Output: Urine 450 150 200 Uretheral (Montalvo) 450 200 Other: Voiding Method Indwelling Catheter Indwelling Catheter Indwelling Catheter - Exam Patient is awake, comfortable. No acute distress Examination of the heart S1 and S2 Examination of the lungs bilateral breath sounds are heard Abdomen is soft. PEG tube noted Examination of lower extremities shows edema 2+ bilaterally [employer]OUNT [employer]OR exam shows patient is moving all 4 extremities - Labs CBC & Chem 7: 12/02/23 04:06 12/01/23 12:02 Labs: Abnormal Lab Results - Last 24 Hours (Table) 12/01/23 12/01/23 12/01/23 Range/Units 11:45 12:02 17:58 WBC (3.8-10.6) k/uL RBC (4.30-5.90) m/uL Hgb (13.0-17.5) gm/dL Hct (39.0-53.0) % MCV (80.0-100.0) fL RDW (11.5-15.5) % Neutrophils # (1.3-7.7) k/uL Lymphocytes # (1.0-4.8) k/uL Sodium 136 L (137-145) mmol/L Carbon Dioxide 13 L (22-30) mmol/L BUN 143 H* (9-20) mg/dL Creatinine 3.64 H (0.66-1.25) mg/dL Glucose 245 H (74-99) mg/dL POC Glucose (mg/dL) 274 H 204 H (70-110) mg/dL Calcium 7.1 L (8.4-10.2) mg/dL 12/01/23 12/02/23 12/02/23 Range/Units 23:54 04:06 06:21 WBC 16.5 H (3.8-10.6) k/uL RBC 3.08 L (4.30-5.90) m/uL Hgb 10.2 L (13.0-17.5) gm/dL Hct 31.7 L (39.0-53.0) % MCV 103.1 H (80.0-100.0) fL RDW 16.1 H (11.5-15.5) % Neutrophils # 15.3 H (1.3-7.7) k/uL Lymphocytes # 0.3 L (1.0-4.8) k/uL Sodium (137-145) mmol/L Carbon Dioxide (22-30) mmol/L BUN (9-20) mg/dL Creatinine (0.66-1.25) mg/dL Glucose (74-99) mg/dL POC Glucose (mg/dL) 192 H 206 H (70-110) mg/dL Calcium (8.4-10.2) mg/dL Microbiology - Last 24 Hours (Table) 11/28/23 14:29 Blood Culture - Preliminary Blood 11/28/23 14:15 Blood Culture - Preliminary Blood Assessment and Plan Assessment: 1. Acute kidney injury secondary to hemodynamic ATN Patient will need renal replacement therapy if renal function does not improve further. This may not be ideal given his underlying comorbidities including metastatic cancer however at this time patient's like to proceed with dialysis if indicated. UA is suggestive of UTI. Check ultrasound of the kidneys. 2. Non-gap metabolic acidosis secondary to acute kidney injury 3. Metastatic urothelial carcinoma maintained on chemotherapy. Metastases noted to, left shoulder and paraspinal region neck. Scheduled to start immunotherapy. 4. Klebsiella pneumonia UTI maintained on Rocephin 5. CK D NKF IIIB to 4 with previous creatinine 1.4-1.7 mg/dL as of with multiple previous episodes of acute kidney injury. Plan: Continue with IV bicarb, changed composition of bicarb drip and basic in half normal saline given the hyperglycemia. Continue Montalvo catheter Patient will need to start renal replacement therapy if renal function does not improve further. He is not an ideal candidate for renal replacement therapy given his underlying comorbidities including metastatic urothelial cancer. At this time why per like to proceed with dialysis if indicated. Continue with tube feedings Repeat labs in a.m. Check ultrasound of the kidneys
[2023-12-02 11:37] LABS: Glucose,Whole Blood 194 mg/dL (70-110)
--- NOTE | 2023-12-02 13:03 | P.PN ---
Subjective Progress Note Date: 12/02/23 This is a 73-year-old male patient with known history of metastatic urothelial carcinoma of the bladder. The patient is coming into the hospital because of dehydration, generalized weakness, falls and failure to thrive. The has noted significant change in his condition over the past 24 to 48 hours and the patient was also having diminished level of consciousness and he was acting encephalopathic. For that reason, the patient was brought into the hospital. I reviewed the records in regards to his metastatic urothelial cancer. The patient has had previous bladder cancer that was treated with chemoradiation therapy back in 2019. He was lost to follow-up and subsequently in July 2023, the patient was found to have a large neck mass and a biopsy of the neck mass was consistent with metastatic disease. At that point, the patient was referred to medical oncology and radiation oncology. He was given 5 radiation therapy treatments to his chest which resulted into significant amount of radiation induced skin necrosis and damage to his neck. The patient also was found to have facial and left neck and eye swelling and this was attributed to a nonocclusive thrombus in the left internal jugular vein and superficial thrombus in the cephalic veins. The based on that, the patient was unable to complete his radiation therapy. He does have severe radiation-induced dermatitis within open the area of skin necrosis in the mid part of the chest just above the sternum. The patient as such was supposed to start also immunotherapy. Due to failure of a port insertion and IV access, the patient did not receive any radiation therapy. At this point in time, he is having difficulties with swallowing. Unable to have full meals and according to the his oral intake is been quite diminished. He came into the hospital and he is still was found to be positive for COVID-19. Note that he was diagnosed having COVID-19 infection back in September 2023 and since then the test and the PCR turned out to be positive. The chest x-ray showed a moderate size left-sided pleural effusion. This is a new finding as the patient is known to haveA left-sided pleural effusion and this was also seen on a PET/CT that was done on 11/11/2023 that showed abnormal uptake in the soft tissue in the left neck and left medial shoulder and left paraspinal region in the upper thorax. There was also suspicious uptake within the posterior wall of the urinary bladder. Moderate size pleural effusion was also seen that was present. His echocardiogram from 08/07/2023 showed a preserved LV function with an ejection fraction of 50 to 55%. No significant valvular abnormalities. On his labs, the patient was found to have a WBC count of 8.5 with a hemoglobin 9.8 and a platelet count of 309. The BUN was 107 with a creatinine of 3.47 and the patient obviously had a component of an acute kidney injury on top of chronic kidney disease. The sodium was at 143 with a potassium level of 4.5, serum bicarb was at 17, proBNP level was 5590 and the troponin was 0.06. LFTs were normal. As mentioned CO VID-19 testing was still positive. The patient is currently on portable oxygen nasal cannula with a pulse ox of 95%. He is profoundly weak and lethargic at this point. He was started on IV fluid hydration. His comorbid conditions include coronary artery disease with previous coronary stents, diabetes mellitus, hypertension, hyperlipidemia, childhood polio and history of CHF with preserved LV function. On today's evaluation of 11/29/2023, the patient is being seen for a follow-up. The patient remains NPO. Noted the patient was supposed to undergo a PEG tube insertion. However, this procedure has been kept on hold as the patient went into atrial fibrillation with rapid ventricular response. This occurred yesterday afternoon. The patient was started on Cardizem drip and the dose was titrated. There was no response and currently Cardizem running at 10 mg an hour. Subsequently, the patient was started also on amiodarone drip at 1 mg/min. He is currently tachycardic and heart rate is ranging between 130 and 140. His anticoagulation was placed on hold and I suggested putting the patient on IV heparin for the time being. No other significant events overnight. Patient remains NPO. The sodium level is at 142 with a potassium level of 5.1. BUN is 118 with a creatinine of 3.85 which is slightly worse compared to yesterday. Coagulation profile is essentially within normal limits. Hemoglobin at 9.6 with a WBC count of 13.1 and a platelet count of 308. UA was abnormal an d the patient also tested positive for COVID-19 which is an obviously a persistent positive testing since October 2022. In terms of antibiotic coverage, the patient remains on IV Rocephin. Awaiting urine culture results. On today's evaluation of 11/30/2023, seen the patient for a follow-up. The que young is currently post PEG tube insertion. He is taking his oral medications through the PEG tube and the patient will be also started on enteral feeding for nutritional support. In terms of his left facial swelling and orbital swelling, this is improved compared to yesterday. The patient was restarted on anticoagulation with Eliquis 5 mg p.o. twice a day. Also, the patient is back into normal sinus rhythm. The patient was seen by cardiology. The patient is currently on metoprolol 50 mg p.o. twice a day and amiodarone 20 mg twice a day. Cardizem drip has been discontinued. The patient remains on Decadron 6 mg IV twice daily. No other new complaints otherwise for now. Is alert and will and communicating. The white cell count of 14 with a hemoglobin of 9.3 and a platelet count of 287. The BUN is at 133 with a creatinine of 3.9 and sodium is at 140 with a potassium level of 4.4. On today's evaluation of 12/01/2023, the patient is doing well and he has no specific complaints. He has a PEG tube in place and the patient was started also on enteral feeding for nutritional support and the patient is currently on Glucerna at a rate of 20 cc an hour. He is also on oxygen 2 L/min nasal cannula. No respiratory distress. No chest pain. No fever. No chills. The patient is empirically covered with IV Rocephin and urine cultures positive for Klebsiella pneumoniae. This is a true infection as the patient's UA was also abnormal suggestive of underlying UTI. Awaiting labs from today. Otherwise, the patient is alert and communicating and denies having any significant co mplaints. Anticoagulation is restarted and the patient is currently on 5 mg of Eliquis twice a day. He is also on albuterol 20 mg p.o. twice daily and metoprolol 50 mg p.o. twice daily the patient's current cardiac rhythm is sinus. On 12/02/2023, I am seeing the patient for a follow-up. The patient is found to be more restless on today's evaluation that there is a sitter at the bedside. He is communicating. He does have some abdominal discomfort and distention. He was started on enteral feeding for nutritional support and the patient was sleeping Glucerna. The tube feeds were Placed on hold. Abdominal film was obtained and the patient was found to have ileus. General surgery is on the case and they are following the patient. I suggested stopping enteral feeding and putting the PEG tube for suction at this point in time. Chest x-ray shows some left basilar atelectatic changes otherwise no other acute abnormalities noted. White cell count is 16 with a hemoglobin of 10.2 and a platelet count of 265. The renal function is to be repeated today in the renal function from tami cosme was stable. Meanwhile, oxygenation is also stable and the patient remains on 3 L O2 nasal cannula with a pulse ox of 99%. The patient remains on IV fluids with a bicarb infusion at rate of 75 cc an hour. His serum bicarb last was down to 13 and the bicarb deficit is being replaced. Nephrology on the case. Otherwise, the patient is hemodynamically stable. Objective - Vital Signs Vital signs: Vital Signs Temp 97.6 F 12/02/23 08:45 Pulse 83 12/02/23 08:45 Resp 20 12/02/23 09:08 BP 145/68 12/02/23 08:45 Pulse Ox 96 12/02/23 09:08 FiO2 Intake & Output 12/01/23 12/02/23 12/02/23 18:59 06:59 18:59 Intake Total 500 250 Output Total 450 150 200 Balance 50 -150 50 Intake: IV 20 10 Invasive Line 4 20 10 Tube Feeding 480 240 Output: Urine 450 150 200 Uretheral (Montalvo) 450 200 Other: Voiding Method Indwelling Catheter Indwelling Catheter Indwelling Catheter - Exam GENERAL EXAM: Alert and crying, debilitated, cachectic, with significant left facial, left orbital and left neck swelling. The patient is currently on 3 L of O2 nasal cannula HEAD: Significant facial edema and left periorbital edema. EYES: Normal reaction of pupils, equal size. NOSE: Clear with pink turbinates. THROAT: No erythema or exudates. NECK: Severe pericervical edema, skin is taut and hard with left-sided mass CHEST: Upper chest edema and radiation dermatitis. LUNGS: Equal air entry with no crackles, wheeze, rhonchi or dullness. There is significant upper airway edema, with mild stridor. CVS: Irregular with rapid ventricular response consistent with atrial fibrillation with rapid ventricular response ABDOMEN: No hepatosplenomegaly, active bowel sounds, no guarding or rigidity. The patient has a PEG tube in his mid abdomen and the exit site is dry clean and intact. Abdomen is slightly distended. No significant tenderness. SPINE: No scoliosis or deformity SKIN: Upper chest radiation dermatitis/burn/open wound, there is an area of central necrosis with a scab just above the sternum. CENTRAL NERVOUS SYSTEM: Delirious, essentially nonverbal, intermittent spontaneously opens eyes. Does not follow commands. No obvious focal deficits, tone is normal in all 4 extremities. EXTREMITIES: There is significant upper extremity edema, worse on the left. No clubbing, or cyanosis. Peripheral pulses are intact. - Labs CBC & Chem 7: 12/02/23 04:06 12/01/23 12:02 Labs: Abnormal Lab Results - Last 24 Hours (Table) 12/01/23 12/01/23 12/01/23 Range/Units 11:45 12:02 17:58 WBC (3.8-10.6) k/uL RBC (4.30-5.90) m/uL Hgb (13.0-17.5) gm/dL Hct (39.0-53.0) % MCV (80.0-100.0) fL RDW (11.5-15.5) % Neutrophils # (1.3-7.7) k/uL Lymphocytes # (1.0-4.8) k/uL Sodium 136 L (137-145) mmol/L Carbon Dioxide 13 L (22-30) mmol/L BUN 143 H* (9-20) mg/dL Creatinine 3.64 H (0.66-1.25) mg/dL Glucose 245 H (74-99) mg/dL POC Glucose (mg/dL) 274 H 204 H (70-110) mg/dL Calcium 7.1 L (8.4-10.2) mg/dL 12/01/23 12/02/23 12/02/23 Range/Units 23:54 04:06 06:21 WBC 16.5 H (3.8-10.6) k/uL RBC 3.08 L (4.30-5.90) m/uL Hgb 10.2 L (13.0-17.5) gm/dL Hct 31.7 L (39.0-53.0) % MCV 103.1 H (80.0-100.0) fL RDW 16.1 H (11.5-15.5) % Neutrophils # 15.3 H (1.3-7.7) k/uL Lymphocytes # 0.3 L (1.0-4.8) k/uL Sodium (137-145) mmol/L Carbon Dioxide (22-30) mmol/L BUN (9-20) mg/dL Creatinine (0.66-1.25) mg/dL Glucose (74-99) mg/dL POC Glucose (mg/dL) 192 H 206 H (70-110) mg/dL Calcium (8.4-10.2) mg/dL Microbiology - Last 24 Hours (Table) 11/28/23 14:29 Blood Culture - Preliminary Blood 11/28/23 14:15 Blood Culture - Preliminary Blood Assessment and Plan Plan: Acute hypoxic respiratory failure and the patient is currently on 2 L O2 nasal cannula. Chest x-ray showing a chronic left-sided pleural effusion. Diagnostic thoracentesis not been done. This could be potentially malignant in nature. CHF related pleural effusion cannot be completely ruled out. Nevertheless, this pleural effusion has been present and it was already seen on a previous PET/CT that was done in October 2023. Known history of metastatic urothelial cancer initially treated with chemoradiation therapy back in 2019. Subsequently the patient developed metastatic disease with a large left neck mass. The patient originally underwent a transurethral resection of bladder cancer on 03/03/2020 and he was found to have a 3 cm urothelial carcinoma with papillary features and he opted for concurrent chemotherapy and radiation therapy with a combination of cisplatin and Taxol rather than surgical resection. Failure to thrive and diminished oral intake and significant dehydration, the patient is post PEG tube insertion Poor tolerance of enteral feeding and the patient possibly has an ileus. Please refer to the abdominal x-rays are showing nonspecific findings. Acute on top of chronic kidney injury secondary to above, with interval worsening renal function, creatinine is stable and awaiting labs from today None anion gap metabolic acidosis and the patient is currently on a bicarb infusion Dysphagia secondary radiation therapy to the neck Metastatic urothelial carcinoma with a large left neck mass and the patient was treated with radiation therapy this was complicated by severe radiation dermatitis and necrosis COVID-19 infection diagnosed in September 2023 and the patient continues to be PCR positive Left facial, orbital and neck swelling related to thrombosis of the left IJ and the patient has also superficial venous thrombosis involving the left cephalic vein, the patient is currently on anticoagulation with Eliquis Atrial fibrillation with rapid ventricular response, currently on a combination of metoprolol and oral amiodarone and the patient is currently on anticoagulation with Eliquis, the patient has converted to normal sinus rhythm Hypertension Hyperlipidemia Diabetes mellitus type 2 CHF with preserved LV function Coronary artery disease Osteoarthritis Chronic back pain History of childhood polio syndrome Plan Patient is currently on 2 L of O2 nasal cannula Hold the tube feeds for now and put the patient's PEG tube for suctioning Repeat abdominal x-ray for tomorrow Continue bicarb infusion to replace the bicarb deficit The patient is currently on oral metoprolol and amiodarone and anticoagulation with Eliquis. Cardiac rhythm is back to sinus. Continue amiodarone 200 mg p.o. twice a day Continue metoprolol 50 mg p.o. twice daily Continue Eliquis 5 mg p.o. twice a day Monitor renal function, awaiting labs from today Ask radiation oncology to evaluate for significant dermatitis over the skin. Oncology consultation A port will be also inserted for IV access at the later stage Prognosis remains poor. Will continue to follow.
--- NOTE | 2023-12-02 13:19 | US ---
EXAMINATION TYPE: US kidneys/renal and bladder DATE OF EXAM: 12/02/2023 COMPARISON: NONE CLINICAL INDICATION: Male, 73 years old with history of edith; EDITH EXAM MEASUREMENTS: Right Kidney: 9.1 x 3.7 x 4.6 cm Left Kidney: not seen today Right Kidney: moderate hydronephrosis seen Left Kidney: not seen due to bowel gas and patient inability to move Bladder: not distended incidental mild ascites and right pleural effusion seen. IMPRESSION: 1. Moderate to marked right hydronephrosis. 2. Mild ascites and small right pleural effusion. 3. Nonvisualization of the left kidney secondary to bowel gas and patient condition.
[2023-12-02 15:25] LABS: Anisocytosis Slight; HCT 29.4 % (39.0-53.0); HGB 9.5 gm/dL (13.0-17.5); Hypochromasia Slight; MCH 33.1 pg (25.0-35.0); MCHC 32.2 g/dL (31.0-37.0); MCV 102.7 fL (80.0-100.0); Macrocytosis Moderate; Mean Platelet Volume 11.2; Platelet Count 240 k/uL (150-450); RBC 2.87 m/uL (4.30-5.90); RDW 16.2 % (11.5-15.5); WBC 16.3 k/uL (3.8-10.6)
[2023-12-02 16:09] LABS: ALT 21 U/L (4-49); AST 55 U/L (17-59); African American GFR (CKD) 19 (>60 ml/min/1.73 sqM); Albumin 2.7 g/dL (3.5-5.0); Alkaline Phosphatase 126 U/L (38-126); Anion Gap 11 mmol/L; Carbon Dioxide 21 mmol/L (22-30); Chloride 105 mmol/L (98-107); Glucose 151 mg/dL (74-99); Magnesium 1.9 mg/dL (1.6-2.3); Non-African American GFR(CKD) 17 (>60 ml/min/1.73 sqM); Potassium 4.6 mmol/L (3.5-5.1); Sodium 137 mmol/L (137-145); Total Bilirubin 0.3 mg/dL (0.2-1.3); Total Protein 5.4 g/dL (6.3-8.2)
[2023-12-02 16:23] LABS: Blood Urea Nitrogen 146 mg/dL (9-20)
[2023-12-02] MEDS: ALBUTEROL HFA INHALER INHALATION PRN (16:45)
[2023-12-02 16:52] LABS: Glucose,Whole Blood 159 mg/dL (70-110)
[2023-12-02] MEDS: METOCLOPRAMIDE 10 MG TAB PO SCH (16:57)
--- NOTE | 2023-12-02 17:18 | P.PN ---
Progress Note - Text Progress Note Date: 12/02/23 Chief Complaint: Increasing confusion Patient is a 73-year-old with a known history of metastatic high-grade urothelial carcinoma status post left neck mass lymph node biopsy, urothelial cancer status post chemo/RT in 06/2020, coronary artery disease with history of stent placement, chronic HFpEF, CKD stage IIIb with baseline creatinine level 1.5-1.7, diabetic nephropathy, diabetes type 2 insulin-dependent, hypertension, osteoarthritis, chronic low back pain, prior history of smoking left upper extremity DVT diagnosed in July 2023 and is on Eliquis. In September 2023 was detected with COVID-19. October 17, 2023 was discharged to rehab. On 27 October 2023 patient was brought home. Otherwise he would not be able to get treatment for his underlying cancer. Patient in July did get radiation treatment 3 out of 5. With changes on the skin now. Patient was due to get immunotherapy last week but because of difficult IV access unable to get the same. Port could not be placed because area of radiation in the chest is rather angry appearing as patient has been scratching the same. In the last 2 days patient is becoming increasingly confused. Unable to get around at all. Decreased appetite. No fever reported. Increasing shortness of breath. Patient tested positive for COVID-19. Some lactic acidosis. Worsening of renal function. Patient's at the bedside is able to give the history. Patient himself is rather delirious. November 28: A bit less delirious. Following some commands. at the bedside. Discussed with Dr. Tsai. Will need tube feeding. NG tube difficult because of patient's facial swelling. Later decision made to proceed with the PEG tube feeding. Continue with IV fluids. IV ceftriaxone. Left side of the face still swollen. November 29: Laying in bed. Tired. PEG tube placed. Patient was on IV amiodarone. IV heparin was discontinued. Eliquis being started today. Also IV Cardizem. Heart rate was up to 130s this morning. Start the patient on sodium bicarbonate drip for metabolic acidosis. November 30: Sitting up in bed. More awake. Answering simple questions. present. PEG tube feeding to be started this afternoon. On IV ceftriaxone. Sodium bicarbonate drip. On p.o. Lopressor. Switched over to p.o. amiodarone. Plan to hold Eliquis over the weekend so that the port can be placed on Sunday. By vascular. December 01: Getting PEG tube feeding at 20 cc an hour. Laying in bed. Tired. NPO. Plan is for patient to get a port placed on Sunday. Discussed with the at the bedside. Poor functional status. Prognosis guarded. December 02: Overnight patient had thrown up about 500 cc of vomitus. And gastric contents. Had abdominal distention. This afternoon doing better. Spoke to the nurse. Will start tube feeding at 10 cc an hour. Reglan 10 mg 3 times daily is being added. Also patient had bleeding from the radiation dermatitis site. Pressure dressing was placed. [employer] Grader discussed with patient . Possible dialysis. Active Medications Acetaminophen (Acetaminophen Tab 325 Mg Tab) 650 mg PO Q6HR PRN PRN Reason: Mild Pain or Fever > 100.5 Acetaminophen (Acetaminophen Tab 325 Mg Tab) 650 mg PO Q8H PRN PRN Reason: Pain Hydrocodone Bitart/Acetaminophen (Hydrocodone/Apap 5-325mg 1 Each Tab) 1 each PO Q4HR PRN PRN Reason: Moderate Pain (Scale 4 to 6) Last Admin: 12/01/23 21:38 Dose: 1 each Albuterol Sulfate (Albuterol Hfa Inhaler) 2 puff INHALATION RT-Q6H PRN PRN Reason: Wheezing Last Admin: 12/02/23 16:45 Dose: 2 puff Amiodarone HCl (Amiodarone 200 Mg Tab) 200 mg PO BID [facility] Last Admin: 12/02/23 08:38 Dose: 200 mg Apixaban (Apixaban 5 Mg Tab) 5 mg PO BID [facility]; Protocol Last Admin: 12/01/23 21:38 Dose: 5 mg Atorvastatin Calcium (Atorvastatin 80 Mg Tab) 80 mg PO DAILY [facility] Last Admin: 12/02/23 08:38 Dose: 80 mg Bisacodyl (Bisacodyl 10 Mg Supp) 10 mg RECTAL DAILY PRN PRN Reason: Constipation Budesonide/Formoterol Fumarate (Symbicort 80-4.5 Mcg Inhaler) 2 puff INHALATION RT-BID [facility] Last Admin: 12/02/23 09:05 Dose: 2 puff Dextrose/Water (Dextrose 50% Syringe 50 Ml) 25 ml IVP PER PROTOCOL PRN; Protocol PRN Reason: Hypoglycemia Dextrose/Water (Dextrose 50% Syringe 50 Ml) 50 ml IVP PER PROTOCOL PRN; Protocol PRN Reason: Hypoglycemia Ceftriaxone Sodium 2 gm/ (Sodium Chloride) 50 mls @ 100 mls/hr IVPB Q24HR [facility]; Protocol Last Admin: 12/02/23 08:38 Dose: 100 mls/hr Sodium Bicarbonate 100 ml/ (Sodium Chloride) 1,100 mls @ 75 mls/hr IV .[id number] [facility] Last Admin: 12/02/23 03:20 Dose: 75 mls/hr Lactated Ringer's (Lactated Ringers) 1,000 mls @ 20 mls/hr IV .Q24H [facility] Last Admin: 12/02/23 08:34 Dose: Not Given Insulin Aspart (Insulin Aspart (Novolog) 100 Unit/Ml Vial) 0 unit SQ Q6H [facility]; Protocol Last Admin: 12/02/23 16:53 Dose: Not Given Insulin Detemir (Insulin Detemir (Levemir) 100 Unit/Ml Syr) 20 unit SQ HS [facility] Last Admin: 12/01/23 21:38 Dose: 20 unit Levothyroxine Sodium (Levothyroxine 50 Mcg Tab) 50 mcg PO DAILY@0630 [facility] Last Admin: 12/02/23 06:57 Dose: 50 mcg Lidocaine HCl (Lidocaine 1% (10mg/Ml) For Iv Start) 0.1 ml INTRADERMA PER PROTOCOL PRN PRN Reason: IV Start Metoclopramide HCl (Metoclopramide 10 Mg Tab) 10 mg PO AC-TID [facility] Last Admin: 12/02/23 16:57 Dose: 10 mg Metoprolol Tartrate (Metoprolol Tartrate 50 Mg Tab) 50 mg PO BID [facility] Last Admin: 12/02/23 08:38 Dose: 50 mg Metoprolol Tartrate (Metoprolol Tartrate 5 Mg/5 Ml Vial) 5 mg IVP Q6HR PRN PRN Reason: Heart Rate - HIGH Morphine Sulfate (Morphine Sulfate 4 Mg/Ml Syringe) 4 mg IV Q4HR PRN PRN Reason: Severe Pain (Scale 7 to 10) Last Admin: 12/02/23 15:10 Dose: 4 mg Naloxone HCl (Naloxone 0.4 Mg/Ml 1 Ml Vial) 0.2 mg IV Q2M PRN PRN Reason: Opioid Reversal Liraglutide [Victoza 3-Sam] 0.6 Mg/0.1 Ml Ml 1.8 mg SQ DAILY [facility] Last Admin: 12/02/23 09:02 Dose: Not Given Ondansetron HCl (Ondansetron 4 Mg/2 Ml Vial) 4 mg IVP Q8HR PRN PRN Reason: Nausea And Vomiting Last Admin: 12/02/23 09:52 Dose: 4 mg Pantoprazole Sodium (Pantoprazole 40 Mg Tablet) 40 mg PO AC-BID@0800,1700 [facility] Last Admin: 12/02/23 16:57 Dose: 40 mg Tamsulosin HCl (Tamsulosin 0.4 Mg Cap.Er.24h) 0.4 mg PO DAILY [facility] Last Admin: 12/02/23 08:38 Dose: 0.4 mg Thrombin (Thrombin (Bovine) 5,000 Unit Vial) 5,000 unit TOPICAL DAILY PRN; Protocol PRN Reason: Bleeding 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 Patient Smoked for 50 Years Stopped in 2019. Drinking Excessive Alcohol up to 2019. On examination: VITAL SIGNS: 98.1, 78, 20, 122 x 58, 95% on 2 L GENERAL: Reclining in bed, tired CHEST wall: Some redness tenderness with some crusting upper chest.-Area of previous radiation. Now has a foam dressing. EYES: Pupils equal. Conjunctiva normal. HEENT: Left side of the face rather swollen., oral cavity grossly normal. NECK: JVD normal; masses not palpable. Hard mass of the left upper neck going to the mandible. Hard. HEART: Heart sounds irregular; edema present LUNGS: Respiratory rate increased; decreased breath sounds. ABDOMEN: Soft, slight distention. Nontender, liver spleen not palpable, no masses palpable. PEG tube PSYCH: Able to answer simple questions EXTREMITY: Left upper extremity swelling MUSCULOSKELETAL:No Clubbing/cyanosis;muscles-grossly intact. OA NEUROLOGICAL: Some facial asymmetry secondary to left neck mass. Otherwise cranial nerves grossly intact. Moving all 4 limbs INVESTIGATIONS, reviewed in the clinical context: December 02: White count 16.3 hemoglobin 9.5 platelets 240 potassium 4.6 BUN 146 creatinine 3.51 December 01: Potassium 4.7 BUN 143 creatinine 3.64 November: White count 14 hemoglobin 9.3 potassium 4.4 BUN 133 creatinine 3.92 bicarb 19 November 29: White count 13.1 hemoglobin 9.6 platelets 308 potassium 5.1 BUN 118 creatinine 3.85 bicarb 04 December 6: White count 8.5 hemoglobin 9.8 platelets 309 sodium 143 potassium 4.5 BUN 107 creatinine 3.47 lactic acid 2.7 phosphorus 5.7 troponin I 0.053 COVID-19 PCR: Detected EKG tracing personally reviewed by me-sinus tachycardia. Nonspecific ST-T wave changes. Chest x-ray film personally reviewed by me-large left pleural effusion. Assessment and plan: -Acute COVID-19 pneumonia,. Patient was positive for the same during September. PCR can be positive for few weeks. Possibility of new infection.: Better Dexamethasone discontinued -Possible left basilar/atelectasis/pleural effusion. Seen by Dr. Tsai from pulmonary. [place] to be chronic. On previous CT scan. -Acute metabolic encephalopathy, with delirium multifactorial: Better -Metastatic urothelial carcinoma: -Completed treatment with concurrent chemo/RT in 06/2020. Was following up for observation in clinic through 11/2021 with no evidence of recurrence. Stopped f/u with urology in February 2022 due to insurance reasons, and has not had f/u since -Progressing left neck mass. Biopsy of the lt neck mass revealed metastatic non- small cell carcinoma consistent with metastatic high-grade urothelial carcinoma. Radiation treatment. In . [address] Patsy Banda-oncologist. Patient was due to get immunotherapy. But because of poor IV access could not get the same. Port could not be placed because of skin inflammation from radiation/scratching. -Acute hypoxic respiratory failure secondary to Covid 19:: Better 4 L nasal cannula -Chronic hypoxic respiratory failure Baseline 2 L nasal cannula -Chronic CHF exacerbation with preserved ejection fraction EF 50-55%: -Acute kidney injury likely ATN multifactorial. Creatinine is up from baseline. Possible dialysis if no improvement -Left facial swelling possibly from left IJ thrombosis. Previously had superficial venous thrombosis of the left cephalic vein. -Chronic kidney disease likely likely hydronephrosis secondary to cardiorenal syndrome. Along with right-sided hydronephrosis Follow renal function -Metabolic acidosis from chronic kidney disease sodium bicarbonate drip -Coronary artery disease with history of stent 2019 Lipitor, Lopressor -Chronic esophagitis with Otoole's esophagus Protonix -COPD in a prior smoker Ventolin when necessary. Symbicort. 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 Superficial thrombosis within the left cephalic vein. Eliquis Sleeve left upper extremity Followed by Dr. Montalvo from vascular. -Hyperlipidemia Lipitor -PEG tube placed on November [address] Finnegan -Diabetes type 2 insulin-dependent A1c 8.3, uncontrolled with hyperglycemia, secondary to steroids Lantus 20 units daily at bedtime. Accu-Cheks with sliding scale -Hypothyroid Synthroid 25 -BPH Flomax -Full code Bleeding at radiation dermatitis side of the chest wall. OptiForm used. Vomiting earlier. Tube feeding was held. Will start back at 10 cc an hour. Reglan added. Prognosis guarded. at the bedside. Past Medical History Past Medical History: Coronary Artery Disease (CAD), Cancer, Diabetes Mellitus, Hyperlipidemia, Hypertension, Myocardial Infarction ([place]), Osteoarthritis (OA) Additional Past Medical History / Comment(s): Bladder cancer stage with treatment, in remission since 2020. IDDM type II, post polio syndrome,leg length discrepancy, bronchitis, chronic low back pain. Last Myocardial Infarction Date:: 07/23/19 History of Any Multi-Drug Resistant Organisms: None Reported Past Surgical History: Heart Catheterization With Stent, Orthopedic Surgery Additional Past Surgical History / Comment(s): Cystoscopy, TURBT x2, closure of patent urachus bladder tumor as , R leg surgery d/t polio-lengthening, cardiac stents 2018; Right hip surgery 11/03/2022 Past Anesthesia/Blood Transfusion Reactions: No Reported Reaction Date of Last Stent Placement:: 07/23/19 Past Psychological History: No Psychological Hx Reported Additional Psychological History / Comment(s): Pt resides with his spouse. He is confused and restless orientated to person only. Smoking Status: Former smoker Past Alcohol Use History: None Reported Additional Past Alcohol Use History / Comment(s): Pt started smoking in 1968 and quit 07/21/19. Prior ETOH abuse-pt states he hasnt had alcohol in months Past Drug Use History: None Reported
[2023-12-03 00:04] LABS: Glucose,Whole Blood 186 mg/dL (70-110)
[2023-12-03 06:10] LABS: Glucose,Whole Blood 174 mg/dL (70-110)
--- NOTE | 2023-12-03 10:52 | P.PN ---
Subjective Patient is seen in follow-up for acute kidney injury on chronic kidney disease. Creatinine 3.51 yesterday. On IV fluids. present at bedside. Urine output documented as 1175 cc in the last 24 hours. Vital signs are stable. General: No acute distress. Somewhat agitated. HEENT: On nasal cannula. Chest dressing noted. LUNGS: No audible rhonchi or wheezes. HEART: Rate and Rhythm are regular. ABDOMEN: PEG tube noted. EXTREMITITES: 1+ edema. Objective - Vital Signs Vital signs: Vital Signs Temp 98.4 F 12/03/23 07:45 Pulse 83 12/03/23 07:45 Resp 16 12/03/23 07:45 BP 130/60 12/03/23 07:45 Pulse Ox 97 12/03/23 07:45 FiO2 Intake & Output 12/02/23 12/03/23 12/03/23 18:59 06:59 18:59 Intake Total 1340 Output Total 950 225 Balance 390 -225 Intake: IV 10 Invasive Line 4 10 Intake, IV Titration 950 Amount Sodium Chloride 0.45% 1, 900 000 ml @ 75 mls/hr IV . [id number] GURDEEP with Sodium Bicarb (1 Meq/ml) 100 ml Rx#:[id number] cefTRIAXone 2 gm In 50 Sodium Chloride 0.9% 50 ml @ 100 mls/hr IVPB Q24HR GURDEEP Rx#:[id number] Tube Feeding 380 Output: Urine 275 225 Uretheral ([place]) 275 Emesis 675 Other: Voiding Method Indwelling Catheter Indwelling Catheter Indwelling Catheter - Labs CBC & Chem 7: 12/02/23 15:12 12/02/23 15:46 Labs: Abnormal Lab Results - Last 24 Hours (Table) 12/02/23 12/02/23 12/02/23 Range/Units 11:36 15:12 15:46 WBC 16.3 H (3.8-10.6) k/uL RBC 2.87 L (4.30-5.90) m/uL Hgb 9.5 L (13.0-17.5) gm/dL Hct 29.4 L (39.0-53.0) % MCV 102.7 H (80.0-100.0) fL RDW 16.2 H (11.5-15.5) % Carbon Dioxide 21 L (22-30) mmol/L BUN 146 H* (9-20) mg/dL Creatinine 3.51 H (0.66-1.25) mg/dL Glucose 151 H (74-99) mg/dL POC Glucose (mg/dL) 194 H (70-110) mg/dL Calcium 7.0 L (8.4-10.2) mg/dL Total Protein 5.4 L (6.3-8.2) g/dL Albumin 2.7 L (3.5-5.0) g/dL 12/02/23 12/03/23 12/03/23 Range/Units 16:50 00:01 06:09 WBC (3.8-10.6) k/uL RBC (4.30-5.90) m/uL Hgb (13.0-17.5) gm/dL Hct (39.0-53.0) % MCV (80.0-100.0) fL RDW (11.5-15.5) % Carbon Dioxide (22-30) mmol/L BUN (9-20) mg/dL Creatinine (0.66-1.25) mg/dL Glucose (74-99) mg/dL POC Glucose (mg/dL) 159 H 186 H 174 H (70-110) mg/dL Calcium (8.4-10.2) mg/dL Total Protein (6.3-8.2) g/dL Albumin (3.5-5.0) g/dL Assessment and Plan Plan: Assessment: 1. Acute kidney injury secondary to hemodynamic ATN. Creatinine peaked at 3.92 this admission and was 3.51 as of yesterday. Nonoliguric. Right-sided hyd ronephrosis noted. Left kidney not visualized. 2. Chronic kidney disease stage IIIa with baseline creatinine 1.2-1.4 from September 2023. 3. Metastatic urothelial carcinoma. Scheduled to start immunotherapy. 4. Metabolic acidosis secondary to acute kidney injury maintained on bicarb drip. 5. Klebsiella UTI on antibiotics. 6. Diabetes mellitus. Plan: Consult urology for the hydronephrosis. Maintain half-normal saline with bicarb. Follow-up morning labs. Continue to monitor renal function and urine output. Continue to assess daily for need for renal replacement therapy. Patient at this time wants to pursue renal replacement therapy if needed. CODE STATUS discussed with patient and his at length. Currently full code. 20 minutes spent.
--- NOTE | 2023-12-03 10:54 | P.PN ---
Subjective Progress Note Date: 12/03/23 Principal diagnosis: Metastatic urothelial carcinoma Patient is seen and examined today as a follow-up. Patient is pleasantly confused. His is at the bedside he also has a sitter at the bedside. Patient has had worsening kidney function throughout the weekend. Yesterday BUN 146 creatinine 3.51, today's labs currently pending. Patient was initially scheduled for Mediport placement today however due to decline in his kidneys and overall status this will be canceled for now. Patient may need renal replacement therapy and will await what nephrology recommends. Upper extremity venous duplex report similar left internal jugular vein nonocclusive thrombus. Objective - Vital Signs Vital signs: Vital Signs Temp 98.4 F 12/03/23 07:45 Pulse 83 12/03/23 07:45 Resp 16 12/03/23 07:45 BP 130/60 12/03/23 07:45 Pulse Ox 97 12/03/23 07:45 FiO2 Intake & Output 12/02/23 12/03/23 12/03/23 18:59 06:59 18:59 Intake Total 1340 Output Total 950 225 Balance 390 -225 Intake: IV 10 Invasive Line 4 10 Intake, IV Titration 950 Amount Sodium Chloride 0.45% 1, 900 000 ml @ 75 mls/hr IV . [id number] GURDEEP with Sodium Bicarb (1 Meq/ml) 100 ml Rx#:[id number] cefTRIAXone 2 gm In 50 Sodium Chloride 0.9% 50 ml @ 100 mls/hr IVPB Q24HR GUR[facility]EP Rx#:[id number] Tube Feeding 380 Output: Urine 275 225 Uretheral ([place]) 275 Emesis 675 Other: Voiding Method Indwelling Catheter Indwelling Catheter Indwelling Catheter - Exam General appearance: The patient is alert, oriented, appears in no acute distress. HET: Head is normocephalic and atraumatic. Pupils are equal and reactive. Neck: Supple. Left neck mass. Heart: Regular. Chest: Upper chest wall fibrous from previous radiation therapy. Dressing in p lace in middle of chest. Lungs: Equal expansion, normal respiratory effort. Abdomen: Soft, nontender, nondistended. Extremities: Bilateral upper extremity swelling and weeping with dressings in place. Bilateral lower extremity swelling. Neurological: No focal deficits. Strength and sensation are grossly intact. - Labs CBC & Chem 7: 12/02/23 15:12 12/02/23 15:46 Labs: Abnormal Lab Results - Last 24 Hours (Table) 12/02/23 12/02/23 12/02/23 Range/Units 11:36 15:12 15:46 WBC 16.3 H (3.8-10.6) k/uL RBC 2.87 L (4.30-5.90) m/uL Hgb 9.5 L (13.0-17.5) gm/dL Hct 29.4 L (39.0-53.0) % MCV 102.7 H (80.0-100.0) fL RDW 16.2 H (11.5-15.5) % Carbon Dioxide 21 L (22-30) mmol/L BUN 146 H* (9-20) mg/dL Creatinine 3.51 H (0.66-1.25) mg/dL Glucose 151 H (74-99) mg/dL POC Glucose (mg/dL) 194 H (70-110) mg/dL Calcium 7.0 L (8.4-10.2) mg/dL Total Protein 5.4 L (6.3-8.2) g/dL Albumin 2.7 L (3.5-5.0) g/dL 12/02/23 12/03/23 12/03/23 Range/Units 16:50 00:01 06:09 WBC (3.8-10.6) k/uL RBC (4.30-5.90) m/uL Hgb (13.0-17.5) gm/dL Hct (39.0-53.0) % MCV (80.0-100.0) fL RDW (11.5-15.5) % Carbon Dioxide (22-30) mmol/L BUN (9-20) mg/dL Creatinine (0.66-1.25) mg/dL Glucose (74-99) mg/dL POC Glucose (mg/dL) 159 H 186 H 174 H (70-110) mg/dL Calcium (8.4-10.2) mg/dL Total Protein (6.3-8.2) g/dL Albumin (3.5-5.0) g/dL Assessment and Plan Assessment: 1. Metastatic urothelial carcinoma 2. Skin necrosis and damage to chest and neck from radiation therapy 3. Coronary artery disease on Eliquis 4. Failure to thrive, has PEG tube placement 5. Acute on chronic kidney failure 6. Left IJ vein nonocclusive thrombus Plan: Patient was tentatively scheduled for Mediport placement today however due to multiple complex comorbidities and poor prognosis would recommend further recommendations from primary medical team and oncology to discuss CODE STATUS and possible palliative care. Patient may be requiring renal replacement therapy for acute on chronic kidney disease. Will be happy to place temporary hemodialysis catheter if needed. Will await recommendations from nephrology. Thank you for this consultation, we will continue to follow. The impression and plan of care has been dictated as directed. Dr. Villanueva I performed a history and examination of this patient, discussed the same with the dictator. I agree with the dictator's note ,documented as a scribe. Any additional findings or plans will be noted.
[2023-12-03 11:12] LABS: African American GFR (CKD) 19 (>60 ml/min/1.73 sqM); Anion Gap 10 mmol/L; Calcium 6.6 mg/dL (8.4-10.2); Carbon Dioxide 27 mmol/L (22-30); Chloride 101 mmol/L (98-107); Glucose 186 mg/dL (74-99); Magnesium 1.9 mg/dL (1.6-2.3); Non-African American GFR(CKD) 16 (>60 ml/min/1.73 sqM); Potassium 4.4 mmol/L (3.5-5.1); Sodium 138 mmol/L (137-145)
[2023-12-03 11:23] LABS: Blood Urea Nitrogen 147 mg/dL (9-20)
[2023-12-03 12:05] VITALS: BP 114/47; PULSE 80; RESP 20; TEMP 97.8
[2023-12-03 12:14] LABS: Glucose,Whole Blood 235 mg/dL (70-110)
[2023-12-03] MEDS: SODIUM CHLORIDE 0.9% 1,000 ML IV SCH (12:43)
--- NOTE | 2023-12-03 13:47 | P.GSCN ---
History of Present Illness Consult date: 12/03/23 History of present illness: 73 yo male in the hospital with weakness. the patient was diagnosed with muscle invasive bladder cancer in 2019. He was referred [facility] where he declined a cystectomy and underwent chemo radiation. He had right hydronephrosis due to the location of the cancer and the invasion of the cancer. He has had persistent right hydronephrosis ever since. His cancer is now metastasized. He was seen in 2022 for the hydro. His cr at that time was 1.3- 1.8. It is now in the mid 3 range. His overall health has deteriorated. He now has mets to ln in his neck. He cant eat. He has an ileus Review of Systems All systems: negative - Constitutional Denies fever, Denies weight loss - EENT Eyes: denies blurred vision Ears, nose, mouth and throat: Denies dysphagia - Cardiovascular Denies chest pain, Denies shortness of breath - Respiratory Denies cough, Denies 7 - Gastrointestinal Reports as per HPI - Genitourinary Denies dysuria, Denies hematuria - Integumentary Denies rash, Denies unusual bruising - Neurological Denies headaches, Denies syncope - Hematologic/Lymphatic Denies easy bleeding, Denies easy bruising Past Medical History Past Medical History: Coronary Artery Disease (CAD), Cancer, Diabetes Mellitus, Hyperlipidemia, Hypertension, Myocardial Infarction (MO), Osteoarthritis (OA) Additional Past Medical History / Comment(s): Bladder cancer stage with treatment, in remission since 2020. IDDM type II, post polio syndrome,leg length discrepancy, bronchitis, chronic low back pain. Last Myocardial Infarction Date:: 07/23/19 History of Any Multi-Drug Resistant Organisms: None Reported Past Surgical History: Heart Catheterization With Stent, Orthopedic Surgery Additional Past Surgical History / Comment(s): Cystoscopy, TURBT x2, closure of patent urachus bladder tumor as , R leg surgery d/t polio-lengthening, cardiac stents 2018; Right hip surgery 11/03/2022 Past Anesthesia/Blood Transfusion Reactions: No Reported Reaction Date of Last Stent Placement:: 07/23/19 Past Psychological History: No Psychological Hx Reported Smoking Status: Former smoker Past Alcohol Use History: None Reported Past Drug Use History: None Reported - Past Family History Father History Unknown: Yes Mother Additional Family Medical History / Comment(s): Mother of in a MVA when pt was 15 yrs old. Brother(s) Additional Family Medical History / Comment(s): Pt has one brother who of a bowel problem and another brother that of a ruptured aneurysm. Medications and Allergies Home Medications Medication Instructions Recorded Confirmed Type Aspirin 81 mg PO DAILY #90 chewable 07/25/19 11/27/23 Rx Atorvastatin [Lipitor] 80 mg PO DAILY 05/13/20 11/27/23 History Liraglutide [Victoza 3-Sam] 1.8 mg SQ DAILY 08/04/23 11/27/23 History Apixaban [Eliquis] 5 mg PO BID #60 tab 08/10/23 11/27/23 Rx Magnesium Oxide [Mag-Ox] 400 mg PO DAILY #30 tab 08/10/23 11/27/23 Rx Metoprolol Tartrate [Lopressor] 50 mg PO BID #60 tab 08/10/23 11/27/23 Rx Albuterol Sulfate [Albuterol 2 puff INHALATION RT-Q6H PRN 08/17/23 11/27/23 History Sulfate Hfa] Loratadine [Claritin] 5 mg PO DAILY #30 tab 08/31/23 11/27/23 Rx Tamsulosin [Flomax] 0.4 mg PO DAILY #30 cap 08/31/23 11/27/23 Rx Budesonide/Formoterol Fumarate 2 puff INHALATION RT-BID 09/06/23 11/27/23 History [Symbicort 80-4.5 Mcg Inhaler] Ipratropium-Albuterol Nebulize 3 ml INHALATION RT-QID 09/06/23 11/27/23 History [Duoneb 0.5 mg-3 mg/3 ml Soln] Pantoprazole [Protonix] 40 mg PO AC-BID@0800,1700 09/06/23 11/27/23 History Furosemide [Lasix] 80 mg PO BID@0900,1600 #60 tab 09/11/23 11/27/23 Rx Acetaminophen [Tylenol 8 Hour] 650 mg PO Q8H PRN 10/09/23 11/27/23 History Calcium Carbonate [Tums] 500 mg PO PC-TID 10/09/23 11/27/23 History Cholecalciferol [Vitamin D3 (25 50 mcg PO DAILY 10/09/23 11/27/23 History Mcg = 1000 Iu)] Lactulose [Cephulac] 20 gm PO DAILY 10/09/23 11/27/23 History Ascorbic Acid [Vitamin C] 500 mg PO DAILY tab 10/13/23 11/27/23 Rx Zinc Sulfate [Orazinc] 220 mg PO DAILY cap 10/13/23 11/27/23 Rx amLODIPine [Norvasc] 5 mg PO DAILY #1 tab 10/16/23 11/27/23 Rx HYDROcodone/APAP 7.5-325MG [[place] 1 tab PO Q4H PRN 11/27/23 11/27/23 History 7.5-325] Levothyroxine Sodium [Synthroid] 50 mcg PO DAILY 11/27/23 11/27/23 History Morphine Sulfate [Barb] 30 mg PO Q12H 11/27/23 11/27/23 History Ondansetron [Zofran] 4 mg PO Q4H PRN 11/27/23 11/27/23 History SILVER sulfADIAZINE CREAM 1 applic TOPICAL DAILY 11/27/23 11/27/23 History [Silvadene Cream] Sennosides [Senokot] 8.6 mg PO BID 11/27/23 11/27/23 History Allergies Allergy/AdvReac Type Severity Reaction Status Date / Time No Known Allergies Allergy Verified 11/27/23 15:25 Surgical - Exam Vital Signs Temp Pulse Resp BP Pulse Ox 98.1 F 98 20 128/59 98 11/27/23 11:10 11/27/23 11:10 11/27/23 11:10 11/27/23 11:10 11/27/23 11:10 - General well developed, moderate pain, cachectic, chronically ill - ENT swollen neck bilaterally due to metastatic disease - Abdomen peg tube Abdomen: distended - Genitourinary indwelling catheter Results - Labs 12/02/23 15:12 12/03/23 09:57 Abnormal Lab Results - Last 24 Hours (Table) 12/02/23 12/02/23 12/02/23 Range/Units 11:36 15:12 15:46 WBC 16.3 H (3.8-10.6) k/uL RBC 2.87 L (4.30-5.90) m/uL Hgb 9.5 L (13.0-17.5) gm/dL Hct 29.4 L (39.0-53.0) % MCV 102.7 H (80.0-100.0) fL RDW 16.2 H (11.5-15.5) % Carbon Dioxide 21 L (22-30) mmol/L BUN 146 H* (9-20) mg/dL Creatinine 3.51 H (0.66-1.25) mg/dL Glucose 151 H (74-99) mg/dL POC Glucose (mg/dL) 194 H (70-110) mg/dL Calcium 7.0 L (8.4-10.2) mg/dL Total Protein 5.4 L (6.3-8.2) g/dL Albumin 2.7 L (3.5-5.0) g/dL 12/02/23 12/03/23 12/03/23 Range/Units 16:50 00:01 06:09 WBC (3.8-10.6) k/uL RBC (4.30-5.90) m/uL Hgb (13.0-17.5) gm/dL Hct (39.0-53.0) % MCV (80.0-100.0) fL RDW (11.5-15.5) % Carbon Dioxide (22-30) mmol/L BUN (9-20) mg/dL Creatinine (0.66-1.25) mg/dL Glucose (74-99) mg/dL POC Glucose (mg/dL) 159 H 186 H 174 H (70-110) mg/dL Calcium (8.4-10.2) mg/dL Total Protein (6.3-8.2) g/dL Albumin (3.5-5.0) g/dL Diabetes panel 12/02/23 Range/Units 15:46 Sodium 137 (137-145) mmol/L Potassium 4.6 (3.5-5.1) mmol/L Chloride 105 (98-107) mmol/L Carbon Dioxide 21 L (22-30) mmol/L BUN 146 H* (9-20) mg/dL Creatinine 3.51 H (0.66-1.25) mg/dL Glucose 151 H (74-99) mg/dL Calcium 7.0 L (8.4-10.2) mg/dL AST 55 (17-59) U/L ALT 21 (4-49) U/L Alkaline Phosphatase 126 (38-126) U/L Total Protein 5.4 L (6.3-8.2) g/dL Albumin 2.7 L (3.5-5.0) g/dL Calcium panel 12/02/23 Range/Units 15:46 Calcium 7.0 L (8.4-10.2) mg/dL Albumin 2.7 L (3.5-5.0) g/dL Pituitary panel 12/02/23 Range/Units 15:46 Sodium 137 (137-145) mmol/L Potassium 4.6 (3.5-5.1) mmol/L Chloride 105 (98-107) mmol/L Carbon Dioxide 21 L (22-30) mmol/L BUN 146 H* (9-20) mg/dL Creatinine 3.51 H (0.66-1.25) mg/dL Glucose 151 H (74-99) mg/dL Calcium 7.0 L (8.4-10.2) mg/dL Adrenal panel 12/02/23 Range/Units 15:46 Sodium 137 (137-145) mmol/L Potassium 4.6 (3.5-5.1) mmol/L Chloride 105 (98-107) mmol/L Carbon Dioxide 21 L (22-30) mmol/L BUN 146 H* (9-20) mg/dL Creatinine 3.51 H (0.66-1.25) mg/dL Glucose 151 H (74-99) mg/dL Calcium 7.0 L (8.4-10.2) mg/dL Total Bilirubin 0.3 (0.2-1.3) mg/dL AST 55 (17-59) U/L ALT 21 (4-49) U/L Alkaline Phosphatase 126 (38-126) U/L Total Protein 5.4 L (6.3-8.2) g/dL Albumin 2.7 L (3.5-5.0) g/dL - Imaging US - kidney/bladder: report reviewed, image reviewed Assessment and Plan Assessment: Impression: metastatic blsdder cancer with anasarca. Right hydro secondary to bladder cancer, chronic. arf/crf secondary to obstruction, anasarca, ileus Recommendations: at this time from a urological standpoint I dont recommend intervention to the right hydro I doubt a stent will make alot of difference, I suspect that some of the change in renal function is due to the inability to eat let alone his ileus. He probably would benefit from hospice care
--- NOTE | 2023-12-03 13:51 | P.PN ---
Subjective Progress Note Date: 12/03/23 Principal diagnosis: Malnutrition Patient apparently had some vomiting over the weekend. Tube feeds were held. He was somewhat bloated. Apparently his kidney function has declined and there was talk about hemodialysis. Further discussion led to decision for probable hospice. Currently they are making arrangements for inpatient hospice. Objective - Vital Signs Vital signs: Vital Signs Temp 97.8 F 12/03/23 11:33 Pulse 80 12/03/23 13:08 Resp 20 12/03/23 11:33 BP 114/47 12/03/23 11:33 Pulse Ox 95 12/03/23 11:33 FiO2 Intake & Output 12/02/23 12/03/23 12/03/23 18:59 06:59 18:59 Intake Total 1340 Output Total 950 225 Balance 390 -225 Weight 74.843 kg Intake: IV 10 Invasive Line 4 10 Intake, IV Titration 950 Amount Sodium Chloride 0.45% 1, 900 000 ml @ 75 mls/hr IV . [id number] [facility] with Sodium Bicarb (1 Meq/ml) 100 ml Rx#:[id number] cefTRIAXone 2 gm In 50 Sodium Chloride 0.9% 50 ml @ 100 mls/hr IVPB Q24HR [facility] Rx#:[id number] Tube Feeding 380 Output: Urine 275 225 Uretheral ([place]) 275 Emesis 675 Other: Voiding Method Indwelling Catheter Indwelling Catheter Indwelling Catheter - Exam Abdomen: Soft, mild distention, no appreciable tenderness, PEG tube without erythema - Labs CBC & Chem 7: 12/02/23 15:12 12/03/23 09:57 Labs: Abnormal Lab Results - Last 24 Hours (Table) 12/02/23 12/02/23 12/02/23 Range/Units 15:12 15:46 16:50 WBC 16.3 H (3.8-10.6) k/uL RBC 2.87 L (4.30-5.90) m/uL Hgb 9.5 L (13.0-17.5) gm/dL Hct 29.4 L (39.0-53.0) % MCV 102.7 H (80.0-100.0) fL RDW 16.2 H (11.5-15.5) % Carbon Dioxide 21 L (22-30) mmol/L BUN 146 H* (9-20) mg/dL Creatinine 3.51 H (0.66-1.25) mg/dL Glucose 151 H (74-99) mg/dL POC Glucose (mg/dL) 159 H (70-110) mg/dL Calcium 7.0 L (8.4-10.2) mg/dL Total Protein 5.4 L (6.3-8.2) g/dL Albumin 2.7 L (3.5-5.0) g/dL 12/03/23 12/03/23 12/03/23 Range/Units 00:01 06:09 09:57 WBC (3.8-10.6) k/uL RBC (4.30-5.90) m/uL Hgb (13.0-17.5) gm/dL Hct (39.0-53.0) % MCV (80.0-100.0) fL RDW (11.5-15.5) % Carbon Dioxide (22-30) mmol/L BUN 147 H* (9-20) mg/dL Creatinine 3.56 H (0.66-1.25) mg/dL Glucose 186 H (74-99) mg/dL POC Glucose (mg/dL) 186 H 174 H (70-110) mg/dL Calcium 6.6 L (8.4-10.2) mg/dL Total Protein (6.3-8.2) g/dL Albumin (3.5-5.0) g/dL 12/03/23 Range/Units 12:13 WBC (3.8-10.6) k/uL RBC (4.30-5.90) m/uL Hgb (13.0-17.5) gm/dL Hct (39.0-53.0) % MCV (80.0-100.0) fL RDW (11.5-15.5) % Carbon Dioxide (22-30) mmol/L BUN (9-20) mg/dL Creatinine (0.66-1.25) mg/dL Glucose (74-99) mg/dL POC Glucose (mg/dL) 235 H (70-110) mg/dL Calcium (8.4-10.2) mg/dL Total Protein (6.3-8.2) g/dL Albumin (3.5-5.0) g/dL Assessment and Plan (1) Malnutrition of moderate degree Narrative/Plan: 73-year-old male with malnutrition and recent aspiration. PEG tube placed however patient now moving towards hospice. May utilize PEG tube for oral medications. Current Visit: Yes Status: Acute Code(s): E44.0 - MODERATE PROTEIN-CALORIE MALNUTRITION SNOMED Code(s): 786466298
--- NOTE | 2023-12-03 15:29 | P.PN ---
Subjective Progress Note Date: 12/03/23 Principal diagnosis: Acute hypoxic respiratory failure, left pleural effusion, metastatic urothelial cancer. This is a 73-year-old male patient with known history of metastatic urothelial carcinoma of the bladder. The patient is coming into the hospital because of dehydration, generalized weakness, falls and failure to thrive. The has noted significant change in his condition over the past 24 to 48 hours and the patient was also having diminished level of consciousness and he was acting encephalopathic. For that reason, the patient was brought into the hospital. I reviewed the records in regards to his metastatic urothelial cancer. The patient has had previous bladder cancer that was treated with chemoradiation therapy back in 2019. He was lost to follow-up and subsequently in July 2023, the patient was found to have a large neck mass and a biopsy of the neck mass was consistent with metastatic disease. At that point, the patient was referred to medical oncology and radiation oncology. He was given 5 radiation therapy treatments to his chest which resulted into significant amount of radiation induced skin necrosis and damage to his neck. The patient also was found to have facial and left neck and eye swelling and this was attributed to a nonocclusive thrombus in the left internal jugular vein and superficial thrombus in the cephalic veins. The based on that, the patient was unable to complete his radiation therapy. He does have severe radiation-induced dermatitis within open the area of skin necrosis in the mid part of the chest just above the sternum. The patient as such was supposed to start also immunotherapy. Due to failure of a port insertion and IV access, the patient did not receive any radiation therapy. At this point in time, he is having difficulties with swallowing. Unable to have full meals and according to the his oral intake is been quite diminished. He came into the hospital and he is still was found to be positive for COVID-19. Note that he was diagnosed having COVID-19 infection back in September 2023 and since then the test and the PCR turned out to be positive. The chest x-ray showed a moderate size left-sided pleural effusion. This is a new finding as the patient is known to haveA left-sided pleural effusion and this was also seen on a PET/CT that was done on 11/11/2023 that showed abnormal uptake in the soft tissue in the left neck and left medial shoulder and left paraspinal region in the upper thorax. There was also suspicious uptake within the posterior wall of the urinary bladder. Moderate size pleural effusion was also seen that was present. His echocardiogram from 08/07/2023 showed a preserved LV function with an ejection fraction of 50 to 55%. No significant valvular abnormalities. On his labs, the patient was found to have a WBC count of 8.5 with a hemoglobin 9.8 and a platelet count of 309. The BUN was 107 with a creatinine of 3.47 and the patient obviously had a component of an acute kidney injury on top of chronic kidney disease. The sodium was at 143 with a potassium level of 4.5, serum bicarb was at 17, proBNP level was 5590 and the troponin was 0.06. LFTs were normal. As mentioned COVID-19 testing was still positive. The patient is currently on portable oxygen nasal cannula with a pulse ox of 95%. He is profoundly weak and lethargic at this point. He was started on IV fluid hydration. His comorbid conditions include coronary artery disease with previous coronary stents, diabetes mellitus, hypertension, hyperlipidemia, childhood polio and history of CHF with preserved LV function. On today's evaluation of 12/01/2023, the patient is doing well and he has no specific complaints. He has a PEG tube in place and the patient was started also on enteral feeding for nutritional support and the patient is currently on Glucerna at a rate of 20 cc an hour. He is also on oxygen 2 L/min nasal cannula. No respiratory distress. No chest pain. No fever. No chills. The patient is empirically covered with IV Rocephin and urine cultures positive for Klebsiella pneumoniae. This is a true infection as the patient's UA was also abnormal suggestive of underlying UTI. Awaiting labs from today. Otherwise, the patient is alert and communicating and denies having any significant complaints. Anticoagulation is restarted and the patient is currently on 5 mg of Eliquis twice a day. He is also on albuterol 20 mg p.o. twice daily and meto prolol 50 mg p.o. twice daily the patient's current cardiac rhythm is sinus. On 12/02/2023, I am seeing the patient for a follow-up. The patient is found to be more restless on today's evaluation that there is a sitter at the bedside. He is communicating. He does have some abdominal discomfort and distention. He was started on enteral feeding for nutritional support and the patient was sleeping Glucerna. The tube feeds were Placed on hold. Abdominal film was obtained and the patient was found to have ileus. General surgery is on the case and they are following the patient. I suggested stopping enteral feeding and putting the PEG tube for suction at this point in time. Chest x-ray shows some left basilar atelectatic changes otherwise no other acute abnormalities noted. White cell count is 16 with a hemoglobin of 10.2 and a platelet count of 265. The renal function is to be repeated today in the renal function from yesterday was stable. Meanwhile, oxygenation is also stable and the patient remains on 3 L O2 nasal cannula with a pulse ox of 99%. The patient remains on IV fluids with a bicarb infusion at rate of 75 cc an hour. His serum bicarb last was down to 13 and the bicarb deficit is being replaced. Nephrology on the case. Otherwise, the patient is hemodynamically stable. Patient was reevaluated today, chest x-ray was reviewed, and patient has a good size left-sided pleural effusion, apparently this was addressed by Dr. Tsai, but no thoracentesis was done because the patient was on Eliquis. Presently his Eliquis is on hold, however patient was seen by many consultants, and I believe hospice is being addressed also at the same time. Will recommend an ultrasound of the chest, and if needed we could always come back and arrange for left-sided thoracentesis at this point will continue to follow patient is on 3 L nasal cannula, and his O2 sats is 95%. Kidney functioning is getting worse, and that is being addressed by nephrology may or may not consider renal replacement therapy. Objective - Vital Signs Vital signs: Vital Signs Temp 97.8 F 12/03/23 11:33 Pulse 80 12/03/23 13:08 Resp 20 12/03/23 11:33 BP 114/47 12/03/23 11:33 Pulse Ox 95 12/03/23 11:33 FiO2 Intake & Output 12/02/23 12/03/23 12/03/23 18:59 06:59 18:59 Intake Total 1340 Output Total 950 225 325 Balance 390 -225 -325 Weight 74.843 kg Intake: IV 10 Invasive Line 4 10 Intake, IV Titration 950 Amount Sodium Chloride 0.45% 1, 900 000 ml @ 75 mls/hr IV . [id number] [facility] with Sodium Bicarb (1 Meq/ml) 100 ml Rx#:[id number] cefTRIAXone 2 gm In 50 Sodium Chloride 0.9% 50 ml @ 100 mls/hr IVPB Q24HR [facility]UR[facility] Rx#:[id number] Tube Feeding 380 Output: Urine 275 225 325 Uretheral ([place]) 275 Emesis 675 Other: Voiding Method Indwelling Catheter Indwelling Catheter Indwelling Catheter - Exam General appearance: 73-year-old debilitated, cachectic, with significant left facial, left orbital and left neck swelling. The patient is currently on 3 L of O2 nasal cannula HET: Head is normocephalic and atraumatic. Pupils are equal and reactive. Neck: Supple. Left neck mass. Heart: Irregular irregular rhythm normal S1-S2, no S3 gallop. Chest: Upper chest wall fibrous from previous radiation therapy. Dressing in place in middle of chest. Lungs: Equal expansion, normal respiratory effort. Abdomen: Soft, nontender, nondistended. PEG tube is noted. Extremities: Bilateral upper extremity swelling and weeping with dressings in place. Bilateral lower extremity swelling. Neurological: No focal deficits. Strength and sensation are grossly intact. - Labs CBC & Chem 7: 12/02/23 15:12 12/03/23 09:57 Labs: Abnormal Lab Results - Last 24 Hours (Table) 12/02/23 12/02/23 12/02/23 Range/Units 15:12 15:46 16:50 WBC 16.3 H (3.8-10.6) k/uL RBC 2.87 L (4.30-5.90) m/uL Hgb 9.5 L (13.0-17.5) gm/dL Hct 29.4 L (39.0-53.0) % MCV 102.7 H (80.0-100.0) fL RDW 16.2 H (11.5-15.5) % Carbon Dioxide 21 L (22-30) mmol/L BUN 146 H* (9-20) mg/dL Creatinine 3.51 H (0.66-1.25) mg/dL Glucose 151 H (74-99) mg/dL POC Glucose (mg/dL) 159 H (70-110) mg/dL Calcium 7.0 L (8.4-10.2) mg/dL Total Protein 5.4 L (6.3-8.2) g/dL Albumin 2.7 L (3.5-5.0) g/dL 12/03/23 12/03/23 12/03/23 Range/Units 00:01 06:09 09:57 WBC (3.8-10.6) k/uL RBC (4.30-5.90) m/uL Hgb (13.0-17.5) gm/dL Hct (39.0-53.0) % MCV (80.0-100.0) fL RDW (11.5-15.5) % Carbon Dioxide (22-30) mmol/L BUN 147 H* (9-20) mg/dL Creatinine 3.56 H (0.66-1.25) mg/dL Glucose 186 H (74-99) mg/dL POC Glucose (mg/dL) 186 H 174 H (70-110) mg/dL Calcium 6.6 L (8.4-10.2) mg/dL Total Protein (6.3-8.2) g/dL Albumin (3.5-5.0) g/dL 12/03/23 Range/Units 12:13 WBC (3.8-10.6) k/uL RBC (4.30-5.90) m/uL Hgb (13.0-17.5) gm/dL Hct (39.0-53.0) % MCV (80.0-100.0) fL RDW (11.5-15.5) % Carbon Dioxide (22-30) mmol/L BUN (9-20) mg/dL Creatinine (0.66-1.25) mg/dL Glucose (74-99) mg/dL POC Glucose (mg/dL) 235 H (70-110) mg/dL Calcium (8.4-10.2) mg/dL Total Protein (6.3-8.2) g/dL Albumin (3.5-5.0) g/dL Assessment and Plan Assessment: Impression: cute hypoxic respiratory failure and the patient is currently on 2 L O2 nasal cannula. Chest x-ray showing a chronic left-sided pleural effusion. Paracentesis could be considered unless patient goes to hospice. history of metastatic urothelial cancer Failure to thrive and diminished oral intake and significant dehydration, the patient is post PEG tube insertion Acute on top of chronic kidney injury, being addressed by nephrology Dysphagia secondary radiation therapy to the neck Metastatic urothelial carcinoma with a large left neck mass and the patient was treated with radiation therapy this was complicated by severe radiation dermatitis and necrosis Left facial, orbital and neck swelling related to thrombosis of the left IJ and the patient has also superficial venous thrombosis involving the left cephalic vein, the patient is currently on anticoagulation with Eliquis Atrial fibrillation with rapid ventricular response, currently on a combination of metoprolol and oral amiodarone, and on Eliquis Hypertension Diabetes mellitus type 2 CHF with preserved LV function Coronary artery disease Recommendation: Continue present supportive care measures Patient is being followed by many consultants. We can possibly arrange for thoracentesis unless the patient goes to hospice. Will have to hold Eliquis for at least 2 days prior to thoracentesis Possibly arrange for ultrasound of the chest prior to thoracentesis if needed. Time with Patient: Less than 30
--- NOTE | 2023-12-03 19:46 | P.DS ---
Providers Date of admission: 11/27/23 13:32 Expected date of discharge: 12/03/23 Attending physician: Lane Vergara Consults: 11/27/23 14:33 Consult Physician Urgent Consulting Provider: Amarilis Banda Consult Reason/Comments: Bladder cancer patient, weakness, failure to thrive Do you want consulting provider notified?: Yes 11/27/23 17:59 Consult Physician Routine Consulting Provider: Yohana Tsai Consult Reason/Comments: Left pleural effusion/consolidation Do you want consulting provider notified?: Yes 11/28/23 15:41 Consult Physician Routine Consulting Provider: Agapito Soto Consult Reason/Comments: afib Do you want consulting provider notified?: Yes 11/30/23 15:25 Consult Physician Routine Consulting Provider: Saji Chapman Consult Reason/Comments: eval for upper extremity port placement Do you want consulting provider notified?: Already Contacted 11/30/23 15:27 Consult Physician Routine Consulting Provider: Gabbi Dow Consult Reason/Comments: acute on chronic kidney failure Do you want consulting provider notified?: Yes 12/03/23 09:47 Consult Physician Routine Consulting Provider: Haider Garcia Consult Reason/Comments: Hydroneprhosis Do you want consulting provider notified?: Yes Primary care physician: Sukhjinder Ramiro [facility] Course: Chief Complaint: Increasing confusion Patient is a 73-year-old with a known history of metastatic high-grade urothelial carcinoma status post left neck mass lymph node biopsy, urothelial cancer status post chemo/RT in 06/2020, coronary artery disease with history of stent placement, chronic HFpEF, CKD stage IIIb with baseline creatinine level 1.5-1.7, diabetic nephropathy, diabetes type 2 insulin-dependent, hypertension, osteoarthritis, chronic low back pain, prior history of smoking left upper extremity DVT diagnosed in July 2023 and is on Eliquis. In September 2023 was detected with COVID-19. October 17, 2023 was discharged to rehab. On 27 October 2023 patient was brought home. Otherwise he would not be able to get treatment for his underlying cancer. Patient in July did get radiation treatment 3 out of 5. With changes on the skin now. Patient was due to get immunotherapy last week but because of difficult IV access unable to get the same. Port could not be placed because area of radiation in the chest is rather angry appearing as patient has been scratching the same. In the last 2 days patient is becoming increasingly confused. Unable to get around at all. Decreased appetite. No fever reported. Increasing shortness of breath. Patient tested positive for COVID-19. Some lactic acidosis. Worsening of renal function. Patient's at the bedside is able to give the history. Patient himself is rather delirious. November 28: A bit less delirious. Following some commands. at the bedside. Discussed with Dr. Tsai. Will need tube feeding. NG tube difficult because of patient's facial swelling. Later decision made to proceed with the PEG tube feeding. Continue with IV fluids. IV ceftriaxone. Left side of the face still swollen. November 29: Laying in bed. Tired. PEG tube placed. Patient was on IV amiodarone. IV heparin was discontinued. Eliquis being started today. Also IV Cardizem. Heart rate was up to 130s this morning. Start the patient on sodium bicarbonate drip for metabolic acidosis. November 30: Sitting up in bed. More awake. Answering simple questions. present. PEG tube feeding to be started this afternoon. On IV ceftriaxone. Sodium bicarbonate drip. On p.o. Lopressor. Switched over to p.o. amiodarone. Plan to hold Eliquis over the weekend so that the port can be placed on Sunday. By vascular. December 01: Getting PEG tube feeding at 20 cc an hour. Laying in bed. Tired. NPO. Plan is for patient to get a port placed on Sunday. Discussed with the at the bedside. Poor functional status. Prognosis guarded. December 02: Overnight patient had thrown up about 500 cc of vomitus. And gastric contents. Had abdominal distention. This afternoon doing better. Spoke to the nurse. Will start tube feeding at 10 cc an hour. Reglan 10 mg 3 times daily is being added. Also patient had bleeding from the radiation dermatitis site. Pressure dressing was placed. Tutorial Laboratory Supervisor discussed with patient . Possible dialysis. December 03: Patient tube feeding was started slowly yesterday. Again this morning patient abdominal distention. Tube feeding is again held. I spoke to Dr. Quinones from oncology. Patient is very poor functional status. Dr. Carlson from urology also spoke to the patient and the . At this point would not proceed with any further intervention because of overall poor status. Oncology also spoke to the patient and the about hospice. I also then talked at length to the patient and the nurse is also present. About hospice. Agreeable for the same. Plan to consult hospice with patient being transferred home with home hospice. apartment house manager informed. Later today. Patient became less agitated uncomfortable. Hospice was already consulted. Decided to proceed with GIP under [facility]. 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 Patient Smoked for 50 Years Stopped in 2019. Drinking Excessive Alcohol up to 2019. On examination: VITAL SIGNS: 97.8, 80, 20, 1 one 4 x 47, 95% on 2 L GENERAL: Reclining in bed, tired CHEST wall: Some redness tenderness with some crusting upper chest.-Area of previous radiation. Now has a foam dressing. EYES: Pupils equal. Conjunctiva normal. HEENT: Left side of the face rather swollen., oral cavity grossly normal. NECK: JVD normal; masses not palpable. Hard mass of the left upper neck going to the mandible. Hard. HEART: Heart sounds irregular; edema present LUNGS: Respiratory rate increased; decreased breath sounds. ABDOMEN: Soft, slight distention. Nontender, liver spleen not palpable, no masses palpable. PEG tube PSYCH: Able to answer simple questions EXTREMITY: Left upper extremity swelling MUSCULOSKELETAL:No Clubbing/cyanosis;muscles-grossly intact. OA NEUROLOGICAL: Some facial asymmetry secondary to left neck mass. Otherwise cranial nerves grossly intact. Moving all 4 limbs INVESTIGATIONS, reviewed in the clinical context: December 03: Potassium 4.4 BUN 147 creatinine 3.56 December 02: White count 16.3 hemoglobin 9.5 platelets 240 potassium 4.6 BUN 146 creatinine 3.51 December 01: Potassium 4.7 BUN 143 creatinine 3.64 November: White count 14 hemoglobin 9.3 potassium 4.4 BUN 133 creatinine 3.92 bicarb November 29: White count 13.1 hemoglobin 9.6 platelets 308 potassium 5.1 BUN 118 creatinine 3.85 bicarb November 27: White count 8.5 hemoglobin 9.8 platelets 309 sodium 143 potassium 4.5 BUN 107 creatinine 3.47 lactic acid 2.7 phosphorus 5.7 troponin I 0.053 COVID-19 PCR: Detected EKG tracing personally reviewed by me-sinus tachycardia. Nonspecific ST-T wave changes. Chest x-ray film personally reviewed by me-large left pleural effusion. Assessment and plan: -Acute COVID-19 pneumonia,. Patient was positive for the same during September. PCR can be positive for few weeks. Possibility of new infection.: Better Dexamethasone discontinued -Possible left basilar/atelectasis/pleural effusion. Seen by Dr. Tsai from pulmonary. [place] to be chronic. On previous CT scan. -Acute metabolic encephalopathy, with delirium multifactorial: Better -Metastatic urothelial carcinoma: -Completed treatment with concurrent chemo/RT in 06/2020. Was following up for observation in clinic through 11/2021 with no evidence of recurrence. Stopped f/u with urology in February 2022 due to insurance reasons, and has not had f/u since -Progressing left neck mass. Biopsy of the lt neck mass revealed metastatic non- small cell carcinoma consistent with metastatic high-grade urothelial carcinoma. Radiation treatment. In . [address] Patsy Banda-oncologist. Patient was due to get immunotherapy. But because of poor IV access could not get the same. Port could not be placed because of skin inflammation from radiation/scratching. -Acute hypoxic respiratory failure secondary to Covid 19:: Better 4 L nasal cannula -Chronic hypoxic respiratory failure Baseline 2 L nasal cannula -Chronic CHF exacerbation with preserved ejection fraction EF 50-55%: -Acute kidney injury likely ATN multifactorial.: 6 not improving Creatinine is up from baseline. Possible dialysis if no improvement -Left facial swelling possibly from left IJ thrombosis. Previously had superficial venous thrombosis of the left cephalic vein. -Chronic kidney disease likely likely hydronephrosis secondary to cardiorenal syndrome. Along with right-sided hydronephrosis Follow renal function -Metabolic acidosis from chronic kidney disease sodium bicarbonate drip -Coronary artery disease with history of stent 2019 Lipitor, Lopressor -Chronic esophagitis with Otoole's esophagus Protonix -COPD in a prior smoker Ventolin when necessary. Symbicort. 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 Superficial thrombosis within the left cephalic vein. Eliquis Sleeve left upper extremity Followed by Dr. Montalvo from vascular. -Hyperlipidemia Lipitor -PEG tube placed on November [address] Finnegan -Diabetes type 2 insulin-dependent A1c 8.3, uncontrolled with hyperglycemia, secondary to steroids Lantus 20 units daily at bedtime. Accu-Cheks with sliding scale -Hypothyroid Synthroid 25 -BPH Flomax -DNR Advance care planning [December 03, 2023] Discussed with the and the patient. Dr. Carlson also present. Also the nurse. Overall very poor prognosis. Patient is functionally declining. Multiple problems at hand. Not felt that he will respond to the same. Discussion held today with oncology, urology, and also nephrology. Plan for consulting hospice and hoping for transfer home tomorrow with any help as needed.. Code DNR Time spent today about 30 minutes Disposition: Inpatient/[facility] hospice with [facility] Past Medical History Past Medical History: Coronary Artery Disease (CAD), Cancer, Diabetes Mellitus, Hyperlipidemia, Hypertension, Myocardial Infarction (MT), Osteoarthritis (OA) Additional Past Medical History / Comment(s): Bladder cancer stage with treatment, in remission since 2020. IDDM type II, post polio syndrome,leg length discrepancy, bronchitis, chronic low back pain. Last Myocardial Infarction Date:: 07/23/19 History of Any Multi-Drug Resistant Organisms: None Reported Past Surgical History: Heart Catheterization With Stent, Orthopedic Surgery Additional Past Surgical History / Comment(s): Cystoscopy, TURBT x2, closure of patent urachus bladder tumor as , R leg surgery d/t polio-lengthening, cardiac stents 2018; Right hip surgery 11/03/2022 Past Anesthesia/Blood Transfusion Reactions: No Reported Reaction Date of Last Stent Placement:: 07/23/19 Past Psychological History: No Psychological Hx Reported Additional Psychological History / Comment(s): Pt resides with his spouse. He is confused and restless orientated to person only. Smoking Status: Former smoker Past Alcohol Use History: None Reported Additional Past Alcohol Use History / Comment(s): Pt started smoking in 1968 and quit 07/21/19. Prior ETOH abuse-pt states he hasnt had alcohol in months Past Drug Use History: None Reported Plan - Discharge Summary Discharge Rx Participant: No New Discharge Prescriptions: No Action Aspirin 81 mg PO DAILY #90 chewable Atorvastatin [Lipitor] 80 mg PO DAILY Apixaban [Eliquis] 5 mg PO BID #60 tab Tamsulosin [Flomax] 0.4 mg PO DAILY #30 cap Budesonide/Formoterol Fumarate [Symbicort 80-4.5 Mcg Inhaler] 2 puff INHALATION RT-BID Ipratropium-Albuterol Nebulize [Duoneb 0.5 mg-3 mg/3 ml Soln] 3 ml INHALATION RT-QID Pantoprazole [Protonix] 40 mg PO AC-BID@0800,1700 Furosemide [Lasix] 80 mg PO BID@0900,1600 #60 tab Cholecalciferol [Vitamin D3 (25 Mcg = 1000 Iu)] 50 mcg PO DAILY amLODIPine [Norvasc] 5 mg PO DAILY #1 tab Levothyroxine Sodium [Synthroid] 50 mcg PO DAILY Sennosides [Senokot] 8.6 mg PO BID SILVER sulfADIAZINE CREAM [Silvadene Cream] 1 applic TOPICAL DAILY Liraglutide [Victoza 3-Sam] 1.8 mg SQ DAILY Magnesium Oxide [Mag-Ox] 400 mg PO DAILY #30 tab Metoprolol Tartrate [Lopressor] 50 mg PO BID #60 tab Albuterol Sulfate [Albuterol Sulfate Hfa] 2 puff INHALATION RT-Q6H PRN PRN Reason: Wheezing Loratadine [Claritin] 5 mg PO DAILY #30 tab Acetaminophen [Tylenol 8 Hour] 650 mg PO Q8H PRN PRN Reason: Pain Calcium Carbonate [Tums] 500 mg PO PC-TID Lactulose [Cephulac] 20 gm PO DAILY Zinc Sulfate [Orazinc] 220 mg PO DAILY cap Ascorbic Acid [Vitamin C] 500 mg PO DAILY tab HYDROcodone/APAP 7.5-325MG [Newcomb 7.5-325] 1 tab PO Q4H PRN PRN Reason: Pain Morphine Sulfate [Barb] 30 mg PO Q12H Ondansetron [Zofran] 4 mg PO Q4H PRN PRN Reason: Nausea Discharge Medication List Aspirin 81 mg PO DAILY #90 chewable 07/25/19 [Rx] Atorvastatin [Lipitor] 80 mg PO DAILY 05/13/20 [History] Liraglutide [Victoza 3-Sam] 1.8 mg SQ DAILY 08/04/23 [History] Apixaban [Eliquis] 5 mg PO BID #60 tab 08/10/23 [Rx] Magnesium Oxide [Mag-Ox] 400 mg PO DAILY #30 tab 08/10/23 [Rx] Metoprolol Tartrate [Lopressor] 50 mg PO BID #60 tab 08/10/23 [Rx] Albuterol Sulfate [Albuterol Sulfate Hfa] 2 puff INHALATION RT-Q6H PRN 08/17/23 [History] Loratadine [Claritin] 5 mg PO DAILY #30 tab 08/31/23 [Rx] Tamsulosin [Flomax] 0.4 mg PO DAILY #30 cap 08/31/23 [Rx] Budesonide/Formoterol Fumarate [Symbicort 80-4.5 Mcg Inhaler] 2 puff INHALATION RT-BID 09/06/23 [History] Ipratropium-Albuterol Nebulize [Duoneb 0.5 mg-3 mg/3 ml Soln] 3 ml INHALATION RT-QID 09/06/23 [History] Pantoprazole [Protonix] 40 mg PO AC-BID@0800,1700 09/06/23 [History] Furosemide [Lasix] 80 mg PO BID@0900,1600 #60 tab 09/11/23 [Rx] Acetaminophen [Tylenol 8 Hour] 650 mg PO Q8H PRN 10/09/23 [History] Calcium Carbonate [Tums] 500 mg PO PC-TID 10/09/23 [History] Cholecalciferol [Vitamin D3 (25 Mcg = 1000 Iu)] 50 mcg PO DAILY 10/09/23 [History] Lactulose [Cephulac] 20 gm PO DAILY 10/09/23 [History] Ascorbic Acid [Vitamin C] 500 mg PO DAILY tab 10/13/23 [Rx] Zinc Sulfate [Orazinc] 220 mg PO DAILY cap 10/13/23 [Rx] amLODIPine [Norvasc] 5 mg PO DAILY #1 tab 10/16/23 [Rx] HYDROcodone/APAP 7.5-325MG [Newcomb 7.5-325] 1 tab PO Q4H PRN 11/27/23 [History] Levothyroxine Sodium [Synthroid] 50 mcg PO DAILY 11/27/23 [History] Morphine Sulfate [Barb] 30 mg PO Q12H 11/27/23 [History] Ondansetron [Zofran] 4 mg PO Q4H PRN 11/27/23 [History] SILVER sulfADIAZINE CREAM [Silvadene Cream] 1 applic TOPICAL DAILY 11/27/23 [History] Sennosides [Senokot] 8.6 mg PO BID 11/27/23 [History] Follow up Appointment(s)/Referral(s): Sukhjinder Rubio MD [Primary Care Provider] - 1-2 days Discharge Disposition: HOME WITH HOSPICE
--- NOTE | 2023-12-03 19:52 | P.PN ---
Subjective Progress Note Date: 12/03/23 Principal diagnosis: Metastatic urothelial carcinoma In follow-up today patient is confused, he is not able to tell me where he is, his conversation is scattered. He is restless. He is uncomfortable. His is at the bedside. Objective - Vital Signs Vital signs: Vital Signs Temp 97.8 F 12/03/23 11:33 Pulse 80 12/03/23 13:08 Resp 20 12/03/23 11:33 BP 114/47 12/03/23 11:33 Pulse Ox 95 12/03/23 11:33 FiO2 Intake & Output 12/02/23 12/03/23 12/03/23 18:59 06:59 18:59 Intake Total 1340 Output Total 950 225 325 Balance 390 -225 -325 Weight 74.843 kg Intake: IV 10 Invasive Line 4 10 Intake, IV Titration 950 Amount Sodium Chloride 0.45% 1, 900 000 ml @ 75 mls/hr IV . [id number] GURDEEP with Sodium Bicarb (1 Meq/ml) 100 ml Rx#:[id number] cefTRIAXone 2 gm In 50 Sodium Chloride 0.9% 50 ml @ 100 mls/hr IVPB Q24HR GURDEEP Rx#:[id number] Tube Feeding 380 Output: Urine 275 225 325 Uretheral (Montalvo) 275 Emesis 675 Other: Voiding Method Indwelling Catheter Indwelling Catheter Indwelling Catheter - Constitutional Constitutional Comment(s): thinning, muscle wasting General appearance: Present: disheveled, mild distress - EENT Eyes: Present: anicteric sclerae, EOMI ENT: Present: hearing grossly normal - Respiratory Details: resp mildly labored at rest - Cardiovascular Rhythm: regular - Peripheral edema leg Peripheral Edema: bilateral: 1+ - Gastrointestinal General gastrointestinal: Present: decreased bowel sounds, distended, soft. Absent: absent bowel sounds, hepatomegaly, hyperactive bowel sounds, normal bowel sounds, organomegaly, rigid, scaphoid, splenomegaly, tenderness, umbilical hernia, ventral hernia - Integumentary Integumentary: Present: pale - Neurologic Neurologic: Present: CNII-XII intact (grossly) - Musculoskeletal Musculoskeletal: Present: generalized weakness - Psychiatric Psychiatric Comment(s): Alert, oriented to self. - Labs CBC & Chem 7: 12/02/23 15:12 12/03/23 09:57 Labs: Abnormal Lab Results - Last 24 Hours (Table) 12/02/23 12/02/23 12/02/23 Range/Units 15:12 15:46 16:50 WBC 16.3 H (3.8-10.6) k/uL RBC 2.87 L (4.30-5.90) m/uL Hgb 9.5 L (13.0-17.5) gm/dL Hct 29.4 L (39.0-53.0) % MCV 102.7 H (80.0-100.0) fL RDW 16.2 H (11.5-15.5) % Carbon Dioxide 21 L (22-30) mmol/L BUN 146 H* (9-20) mg/dL Creatinine 3.51 H (0.66-1.25) mg/dL Glucose 151 H (74-99) mg/dL POC Glucose (mg/dL) 159 H (70-110) mg/dL Calcium 7.0 L (8.4-10.2) mg/dL Total Protein 5.4 L (6.3-8.2) g/dL Albumin 2.7 L (3.5-5.0) g/dL 12/03/23 12/03/23 12/03/23 Range/Units 00:01 06:09 09:57 WBC (3.8-10.6) k/uL RBC (4.30-5.90) m/uL Hgb (13.0-17.5) gm/dL Hct (39.0-53.0) % MCV (80.0-100.0) fL RDW (11.5-15.5) % Carbon Dioxide (22-30) mmol/L BUN 147 H* (9-20) mg/dL Creatinine 3.56 H (0.66-1.25) mg/dL Glucose 186 H (74-99) mg/dL POC Glucose (mg/dL) 186 H 174 H (70-110) mg/dL Calcium 6.6 L (8.4-10.2) mg/dL Total Protein (6.3-8.2) g/dL Albumin (3.5-5.0) g/dL 12/03/23 Range/Units 12:13 WBC (3.8-10.6) k/uL RBC (4.30-5.90) m/uL Hgb (13.0-17.5) gm/dL Hct (39.0-53.0) % MCV (80.0-100.0) fL RDW (11.5-15.5) % Carbon Dioxide (22-30) mmol/L BUN (9-20) mg/dL Creatinine (0.66-1.25) mg/dL Glucose (74-99) mg/dL POC Glucose (mg/dL) 235 H (70-110) mg/dL Calcium (8.4-10.2) mg/dL Total Protein (6.3-8.2) g/dL Albumin (3.5-5.0) g/dL Assessment and Plan (1) Acute kidney injury Status: Acute Priority: High Code(s): N17.9 - ACUTE KIDNEY FAILURE, UNSPECIFIED SNOMED Code(s): 59064183 (2) Malignant neoplasm metastatic from bladder Status: Acute Priority: High Code(s): C67.9 - MALIGNANT NEOPLASM OF BLADDER, UNSPECIFIED SNOMED Code(s): 43510227 (3) Malnutrition of moderate degree Status: Acute Code(s): E44.0 - MODERATE PROTEIN-CALORIE MALNUTRITION SNOMED Code(s): 893372819 (4) Radionecrosis of skin Status: Acute Code(s): L59.8 - OTH DISRD OF THE SKIN, SUBCU RELATED TO RADIATI ON; Y84.2 - RADIOLOG PROC/RADIOTHRPY CAUSE ABN REACT/COMPL, W/O MISADVNT SNOMED Code(s): 026163938 (5) Weakness Status: Acute Priority: Medium Code(s): R53.1 - WEAKNESS SNOMED Code(s): 60507863 Plan: Had a genevieve discussion with the patient and his . We discussed the different concerns that all of the medical office asst on the case have. Patient has been unable to ambulate for almost a year now. Patient's reports that in October 2022 he had hip surgery, and he is pretty much not walked since. He has had multiple stays at with rehabilitation with no significant improvement. Patient had a diagnosis of metastatic urothelial carcinoma since August 2023. He had radiation to the symptomatic site in the neck. This has not healed well, in fact, it is still requiring wound care. Patient has a PEG tube due to inability to swallow. Tube feeds are now on hold as there are concerns for an ileus. Renal function worsening. Secondary to acute tubular necrosis from dehydration and hypotension? Nephrology is following. Patient is going to be having dialysis. reports that she is not able to get patient in and out of the home on her own. She will not be able to get him to appointments. From an Oncology standpoint, patient currently is in no condition to receive malignancy treatment. Treatment intent is palliative, relieving symptoms of disease and prolonging life. I told the patient and his that they need to get the opinions of all Medical Doctors on case and have a discussion as to what their expectations are and what is realistic. We briefly discussed hospice philosophy and intent of hospice. It was recommended to the patient's that if they did pursue hospice that it be in a facility with [facility] as the patient's care exceeds that of what 1 person would be able to manage on their own. All questions were answered to the best of my ability Case was discussed briefly with Internal Medicine. Time with Patient: Greater than 30
== END 2023-12-03 14:34 | disposition hospice, home (50) | DRG 177 ==
LOC: EC 11:05 → 3SCARD 13:32
PROVIDERS: ADMIT Hospitalist; ATTEND Hospitalist
PROC: 3E0333Z Introduction of Anti-inflammatory into Peripheral Vein, Percutaneous Approach (ICD-10-PCS; 2023-11-27)
PROC: 0DH63UZ Insertion of Feeding Device into Stomach, Percutaneous Approach (ICD-10-PCS; principal; 2023-11-29 07:50)
DX: U07.1 COVID-19 (principal); G93.41 Metabolic encephalopathy; I21.A1 Myocardial infarction type 2; I50.33 Acute on chronic diastolic (congestive) heart failure; J96.01 Acute respiratory failure with hypoxia; N17.0 Acute kidney failure with tubular necrosis; J12.82 Pneumonia due to coronavirus disease 2019; J96.21 Acute and chronic respiratory failure with hypoxia; I13.0 Hypertensive heart and chronic kidney disease with heart failure and stage 1 through stage 4 chronic kidney disease, or unspecified chronic kidney disease; I82.C22 Chronic embolism and thrombosis of left internal jugular vein; N39.0 Urinary tract infection, site not specified; E11.52 Type 2 diabetes mellitus with diabetic peripheral angiopathy with gangrene; C77.0 Secondary and unspecified malignant neoplasm of lymph nodes of head, face and neck; E44.0 Moderate protein-calorie malnutrition; N13.30 Unspecified hydronephrosis; E87.20 Acidosis, unspecified; J44.0 Chronic obstructive pulmonary disease with (acute) lower respiratory infection; K56.7 Ileus, unspecified; I25.10 Atherosclerotic heart disease of native coronary artery without angina pectoris; Z95.5 Presence of coronary angioplasty implant and graft; R62.7 Adult failure to thrive; E11.22 Type 2 diabetes mellitus with diabetic chronic kidney disease; K22.70 Barrett's esophagus without dysplasia; K20.90 Esophagitis, unspecified without bleeding; N18.32 Chronic kidney disease, stage 3b; R29.6 Repeated falls; C67.5 Malignant neoplasm of bladder neck; E86.0 Dehydration; D63.1 Anemia in chronic kidney disease; G14 Postpolio syndrome; E78.5 Hyperlipidemia, unspecified; B96.1 Klebsiella pneumoniae [K. pneumoniae] as the cause of diseases classified elsewhere; E03.9 Hypothyroidism, unspecified; I48.0 Paroxysmal atrial fibrillation; Z66 Do not resuscitate; Z51.5 Encounter for palliative care; L98.492 Non-pressure chronic ulcer of skin of other sites with fat layer exposed; N40.0 Benign prostatic hyperplasia without lower urinary tract symptoms; T20.07XA Burn of unspecified degree of neck, initial encounter; M54.50 Low back pain, unspecified; G89.29 Other chronic pain; T38.0X5A Adverse effect of glucocorticoids and synthetic analogues, initial encounter; E11.65 Type 2 diabetes mellitus with hyperglycemia; R32 Unspecified urinary incontinence; Y84.2 Radiological procedure and radiotherapy as the cause of abnormal reaction of the patient, or of later complication, without mention of misadventure at the time of the procedure; Z79.899 Other long term (current) drug therapy; I25.2 Old myocardial infarction; Z79.01 Long term (current) use of anticoagulants; Z59.7 Insufficient social insurance and welfare support; Z79.4 Long term (current) use of insulin; Z79.51 Long term (current) use of inhaled steroids; Z79.82 Long term (current) use of aspirin; Z79.890 Hormone replacement therapy; Z85.118 Personal history of other malignant neoplasm of bronchus and lung; Z86.718 Personal history of other venous thrombosis and embolism; Z87.891 Personal history of nicotine dependence; Z92.3 Personal history of irradiation; Z92.21 Personal history of antineoplastic chemotherapy
CPT/HCPCS: 36410; 43246; 70450; 71045; 71046; 73502; 74018; 76604; 76770; 76937; 80048; 80053; 81001; 83605; 83735; 83880; 84100; 84443; 84484; 85025; 85027; 85610; 85730; 87040; 87077; 87086; 87186; 87636; 93005; 93308; 93970; 94640; 94760; 96361; 96374; 99285

== ENCOUNTER 2023-12-03 14:06 | Inpatient (IN) | payer MEDICAID ==
[2023-12-03] MEDS ORDERED: ONDANSETRON 4 MG/2 ML VIAL IVP PRN (14:07)
[2023-12-03] MEDS ORDERED: LORazepam 0.5 MG TAB PO PRN (14:07)
[2023-12-03] MEDS ORDERED: HYDROcodone/APAP 5-325MG 1 EACH TAB PO PRN (14:07)
[2023-12-03] MEDS ORDERED: ACETAMINOPHEN TAB 325 MG TAB PO PRN (14:07)
[2023-12-03] MEDS ORDERED: DRY MOUTH SPRAY 44.3 SPRAY/44.3 ML SPRAY MUCOUS MEM PRN (14:07)
[2023-12-03] MEDS: LORazepam 2 MG/ML INJ IV PRN ×2 (14:51→19:11)
[2023-12-03] MEDS: SCOPOLAMINE 1 MG/72 HR PATCH TRANSDERM SCH (14:51)
[2023-12-03] MEDS: GLYCOPYRROLATE 0.2 MG/ML 2 ML VIAL IVP PRN (14:51)
[2023-12-03] MEDS: MORPHINE SULFATE 4 MG/ML SYRINGE IV PRN (18:01)
[2023-12-03] MEDS: ATROPINE OPHTH SOLN 1% 5ML BTL SUBLINGUAL PRN (18:07)
[2023-12-03] MEDS: MORPHINE SULFATE 2 MG/ML SYRINGE IVP PRN (18:12)
[2023-12-03] MEDS: MORPHINE SULFATE (100 MG/2 ML) 100 MG in SODIUM CHLORIDE 0.9% 100 ML IV SCH (20:13)
[2023-12-03] MEDS: METOPROLOL TARTRATE 50 MG TAB PO SCH (20:14)
[2023-12-04 08:17] VITALS: BP 133/65; PULSE 92
--- NOTE | 2023-12-04 19:58 | P.PN ---
Progress Note - Text Progress Note Date: 12/04/23 Patient is a 73-year-old with a known history of metastatic high-grade urothelial carcinoma status post left neck mass lymph node biopsy, urothelial cancer status post chemo/RT in 06/2020, coronary artery disease with history of stent placement, chronic HFpEF, CKD stage IIIb with baseline creatinine level 1.5-1.7, diabetic nephropathy, diabetes type 2 insulin-dependent, hypertension, osteoarthritis, chronic low back pain, prior history of smoking left upper extremity DVT diagnosed in July 2023 and is on Eliquis. In September 2023 was detected with COVID-19. October 17, 2023 was discharged to rehab. On 27 October 2023 patient was brought home. Otherwise he would not be able to get treatment for his underlying cancer. Patient in July did get radiation treatment 3 out of 5. With changes on the skin now. Patient was due to get immunotherapy last week but because of difficult IV access unable to get the same. Port could not be placed because area of radiation in the chest is rather angry appearing as patient has been scratching the same. In the last 2 days patient is becoming increasingly confused. Unable to get around at all. Decreased appetite. No fever reported. Increasing shortness of breath. Patient tested positive for COVID-19. Some lactic acidosis. Worsening of renal function. Patient's at the bedside is able to give the history. Patient himself is rather delirious. November 28: A bit less delirious. Following some commands. at the bedside. Discussed with Dr. Tsai. Will need tube feeding. NG tube difficult because of patient's facial swelling. Later decision made to proceed with the PEG tube feeding. Continue with IV fluids. IV ceftriaxone. Left side of the face still swollen. November 29: Laying in bed. Tired. PEG tube placed. Patient was on IV amiodarone. IV heparin was discontinued. Eliquis being started today. Also IV Cardizem. Heart rate was up to 130s this morning. Start the patient on sodium bicarbonate drip for metabolic acidosis. November 30: Sitting up in bed. More awake. Answering simple questions. present. PEG tube feeding to be started this afternoon. On IV ceftriaxone. Sodium bicarbonate drip. On p.o. Lopressor. Switched over to p.o. amiodarone. Plan to hold Eliquis over the weekend so that the port can be placed on Sunday. By vascular. December 01: Getting PEG tube feeding at 20 cc an hour. Laying in bed. Tired. NPO. Plan is for patient to get a port placed on Sunday. Discussed with the at the bedside. Poor functional status. Prognosis guarded. December 02: Overnight patient had thrown up about 500 cc of vomitus. And gastric contents. Had abdominal distention. This afternoon doing better. Spoke to the nurse. Will start tube feeding at 10 cc an hour. Reglan 10 mg 3 times daily is being added. Also patient had bleeding from the radiation dermatitis site. Pressure dressing was placed. Gi Physician discussed with patient . Possible dialysis. December 03: Patient tube feeding was started slowly yesterday. Again this morning patient abdominal distention. Tube feeding is again held. I spoke to Dr. Quinones from oncology. Patient is very poor functional status. Dr. Carlson from urology also spoke to the patient and the . At this point would not proceed with any further intervention because of overall poor status. Oncology also spoke to the patient and the about hospice. I also then talked at length to the patient and the nurse is also present. About hospice. Agreeable for the same. Plan to consult hospice with patient being transferred home with home hospice. corporate real estate manager informed. Later today. Patient became less agitated uncomfortable. Hospice was already consulted. Decided to proceed with GIP under [facility] hospice. December 04: Patient under GIP. [facility] hospice. at the bedside. Discussed. Patient getting morphine drip. Scopolamine patch. Teo. 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 Patient Smoked for 50 Years Stopped in 2019. Drinking Excessive Alcohol up to 2019. On examination: VITAL SIGNS: 92, 16, GENERAL: Reclining in bed, mild breathing CHEST wall: Some redness tenderness with some crusting upper chest.-Area of previous radiation. Now has a foam dressing. LUNGS: Respiratory rate increased; decreased breath sounds. ABDOMEN: Soft, slight distention. Nontender, liver spleen not palpable, no masses palpable. PEG tube INVESTIGATIONS, reviewed in the clinical context: December 03: Potassium 4.4 BUN 147 creatinine 3.56 December 02: White count 16.3 hemoglobin 9.5 platelets 240 potassium 4.6 BUN 146 creatinine 3.51 December 01: Potassium 4.7 BUN 143 creatinine 3.64 November: White count 14 hemoglobin 9.3 potassium 4.4 BUN 133 creatinine 3.92 bicarb November 29: White count 13.1 hemoglobin 9.6 platelets 308 potassium 5.1 BUN 118 creatinine 3.85 bicarb 04 December 6: White count 8.5 hemoglobin 9.8 platelets 309 sodium 143 potassium 4.5 BUN 107 creatinine 3.47 lactic acid 2.7 phosphorus 5.7 troponin I 0.053 COVID-19 PCR: Detected EKG tracing personally reviewed by me-sinus tachycardia. Nonspecific ST-T wave changes. Chest x-ray film personally reviewed by me-large left pleural effusion. Assessment and plan: -Acute COVID-19 pneumonia,. -Possible left basilar/atelectasis/pleural effusion. -Acute metabolic encephalopathy, with delirium multifactorial: Better -Metastatic urothelial carcinoma: -Completed treatment with concurrent chemo/RT in 06/2020. Was following up for observation in clinic through 11/2021 with no evidence of recurrence. Stopped f/u with urology in February 2022 due to insurance reasons, and has not had f/u since -Progressing left neck mass. Biopsy of the lt neck mass revealed metastatic non- small cell carcinoma consistent with metastatic high-grade urothelial carcinoma. Radiation treatment. In . [address] Patsy Banda-oncologist. Patient was due to get immunotherapy. But because of poor IV access could not get the same. Port could not be placed because of skin inflammation from radiation/scratching. -Acute hypoxic respiratory failure secondary to Covid 19:: Better 4 L nasal cannula -Chronic hypoxic respiratory failure Baseline 2 L nasal cannula -Chronic CHF exacerbation with preserved ejection fraction EF 50-55%: -Acute kidney injury likely ATN multifactorial.: -Left facial swelling possibly from left IJ thrombosis. Previously had superficial venous thrombosis of the left cephalic vein. -Chronic kidney disease likely likely hydronephrosis secondary to cardiorenal syndrome. Along with right-sided hydronephrosis -Metabolic acidosis from chronic kidney disease -Coronary artery disease with history of stent 2019 -Chronic esophagitis with Otoole's esophagus -COPD in a prior smoker -Anterior chest wall radiation necrosis/ reaction -Paroxysmal atrial fibrillation, currently sinus rhythm -Essential hypertension -Chronic Non occlusive DVT in the left internal jugular vein. Superficial thrombosis within the left cephalic vein. -Hyperlipidemia -PEG tube placed-feeding discontinued -Diabetes type 2 insulin-dependent A1c 8.3, uncontrolled with hyperglycemia, secondary to steroids -Hypothyroid -BPH -DNR Advance care planning [December 03, 2023] Discussed with the and the patient. Dr. Carlson also present. Also the nurse. Overall very poor prognosis. Patient is functionally declining. Multiple problems at hand. Not felt that he will respond to the same. Discussion held today with oncology, urology, and also nephrology. Plan for consulting hospice and hoping for transfer home tomorrow with any help as needed.. Code DNR Time spent today about 30 minutes Continue comfort measures and comfort plan. Discussed with the at the bedside. Questions answered.
[2023-12-05 15:50] VITALS: RESP 12
--- NOTE | 2023-12-05 20:29 | P.DS ---
Providers Date of admission: 12/03/23 14:35 Expected date of discharge: 12/05/23 Attending physician: Lane Vergara Primary care physician: Sukhjinder [facility] Course: Patient is a 73-year-old with a known history of metastatic high-grade urothelial carcinoma status post left neck mass lymph node biopsy, urothelial cancer status post chemo/RT in 06/2020, coronary artery disease with history of stent placement, chronic HFpEF, CKD stage IIIb with baseline creatinine level 1.5-1.7, diabetic nephropathy, diabetes type 2 insulin-dependent, hypertension, osteoarthritis, chronic low back pain, prior history of smoking left upper extremity DVT diagnosed in July 2023 and is on Eliquis. In September 2023 was detected with COVID-19. October 17, 2023 was discharged to rehab. On 27 October 2023 patient was brought home. Otherwise he would not be able to get treatment for his underlying cancer. Patient in July did get radiation treatment 3 out of 5. With changes on the skin now. Patient was due to get immunotherapy last week but because of difficult IV access unable to get the same. Port could not be placed because area of radiation in the chest is rather angry appearing as patient has been scratching the same. In the last 2 days patient is becoming increasingly confused. Unable to get around at all. Decreased appetite. No fever reported. Increasing shortness of breath. Patient tested positive for COVID-19. Some lactic acidosis. Worsening of renal function. Patient's at the bedside is able to give the history. Patient himself is rather delirious. November 28: A bit less delirious. Following some commands. at the bedside. Discussed with Dr. Tsai. Will need tube feeding. NG tube difficult because of patient's facial swelling. Later decision made to proceed with the PEG tube feeding. Continue with IV fluids. IV ceftriaxone. Left side of the face still swollen. November 29: Laying in bed. Tired. PEG tube placed. Patient was on IV amiodarone. IV heparin was discontinued. Eliquis being started today. Also IV Cardizem. Heart rate was up to 130s this morning. Start the patient on sodium bicarbonate drip for metabolic acidosis. November 30: Sitting up in bed. More awake. Answering simple questions. present. PEG tube feeding to be started this afternoon. On IV ceftriaxone. Sodium bicarbonate drip. On p.o. Lopressor. Switched over to p.o. amiodarone. Plan to hold Eliquis over the weekend so that the port can be placed on Sunday. By vascular. December 01: Getting PEG tube feeding at 20 cc an hour. Laying in bed. Tired. NPO. Plan is for patient to get a port placed on Sunday. Discussed with the at the bedside. Poor functional status. Prognosis guarded. December 02: Overnight patient had thrown up about 500 cc of vomitus. And gastric contents. Had abdominal distention. This afternoon doing better. Spoke to the nurse. Will start tube feeding at 10 cc an hour. Reglan 10 mg 3 times daily is being added. Also patient had bleeding from the radiation dermatitis site. Pressure dressing was placed. Cyber Defense Analyst discussed with patient . Possible dialysis. December 03: Patient tube feeding was started slowly yesterday. Again this morning patient abdominal distention. Tube feeding is again held. I spoke to Dr. Quinones from oncology. Patient is very poor functional status. Dr. Carlson from urology also spoke to the patient and the . At this point would not proceed with any further intervention because of overall poor status. Oncology also spoke to the patient and the about hospice. I also then talked at length to the patient and the nurse is also present. About hospice. Agreeable for the same. Plan to consult hospice with patient being transferred home with home hospice. marketing information manager informed. Later today. Patient became less agitated uncomfortable. Hospice was already consulted. Decided to proceed with GIP under [facility] hospice. December 04: Patient under GIP. [facility] hospice. at the bedside. Discussed. Patient getting morphine drip. Scopolamine patch. Teo. December 04: Patient remains comfortable. Morphine drip. Scopolamine patch. is in the room. States that patient has been comfortable. Patient later today Social history: Used to work in a [employer]. . 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 Patient Smoked for 50 Years Stopped in 2019. Drinking Excessive Alcohol up to 2019. INVESTIGATIONS, reviewed in the clinical context: December 03: Potassium 4.4 BUN 147 creatinine 3.56 December 02: White count 16.3 hemoglobin 9.5 platelets 240 potassium 4.6 BUN 146 creatinine 3.51 December 01: Potassium 4.7 BUN 143 creatinine 3.64 November: White count 14 hemoglobin 9.3 potassium 4.4 BUN 133 creatinine 3.92 bicarb 10 December 8: White count 13.1 hemoglobin 9.6 platelets 308 potassium 5.1 BUN 118 creatinine 3.85 bicarb 04 December 6: White count 8.5 hemoglobin 9.8 platelets 309 sodium 143 potassium 4.5 BUN 107 creatinine 3.47 lactic acid 2.7 phosphorus 5.7 troponin I 0.053 COVID-19 PCR: Detected EKG tracing personally reviewed by me-sinus tachycardia. Nonspecific ST-T wave changes. Chest x-ray film personally reviewed by me-large left pleural effusion. Cause of : Metastatic urothelial carcinoma Assessment and plan: -Acute COVID-19 pneumonia,. -Possible left basilar/atelectasis/pleural effusion. -Acute metabolic encephalopathy, with delirium multifactorial: Better -Metastatic urothelial carcinoma: -Completed treatment with concurrent chemo/RT in 06/2020. Was following up for observation in clinic through 11/2021 with no evidence of recurrence. Stopped f/u with urology in February 2022 due to insurance reasons, and has not had f/u since -Progressing left neck mass. Biopsy of the lt neck mass revealed metastatic non- small cell carcinoma consistent with metastatic high-grade urothelial carcinoma. Radiation treatment. In . 3 out of [address] Follow [address] Patsy Banda-oncologist. Patient was due to get immunotherapy. But because of poor IV access could not get the same. Port could not be placed because of skin inflammation from radiation/scratching. -Acute hypoxic respiratory failure secondary to Covid 19:: Better 4 L nasal cannula -Chronic hypoxic respiratory failure Baseline 2 L nasal cannula -Chronic CHF exacerbation with preserved ejection fraction EF 50-55%: -Acute kidney injury likely ATN multifactorial.: -Left facial swelling possibly from left IJ thrombosis. Previously had superf icial venous thrombosis of the left cephalic vein. -Chronic kidney disease likely likely hydronephrosis secondary to cardiorenal syndrome. Along with right-sided hydronephrosis -Metabolic acidosis from chronic kidney disease -Coronary artery disease with history of stent 2019 -Chronic esophagitis with Otoole's esophagus -COPD in a prior smoker -Anterior chest wall radiation necrosis/ reaction -Paroxysmal atrial fibrillation, currently sinus rhythm -Essential hypertension -Chronic Non occlusive DVT in the left internal jugular vein. Superficial thrombosis within the left cephalic vein. -Hyperlipidemia -PEG tube placed-feeding discontinued -Diabetes type 2 insulin-dependent A1c 8.3, uncontrolled with hyperglycemia, secondary to steroids -Hypothyroid -BPH -DNR Advance care planning [December 03, 2023] Discussed with the and the patient. Dr. Carlson also present. Also the nurse. Overall very poor prognosis. Patient is functionally declining. Multip le problems at hand. Not felt that he will respond to the same. Discussion held today with oncology, urology, and also nephrology. Plan for consulting hospice and hoping for transfer home tomorrow with any help as needed.. Code DNR Time spent today about 30 minutes Disposition: Patient Plan - Discharge Summary New Discharge Prescriptions: No Action Aspirin 81 mg PO DAILY #90 chewable Atorvastatin [Lipitor] 80 mg PO DAILY Apixaban [Eliquis] 5 mg PO BID #60 tab Tamsulosin [Flomax] 0.4 mg PO DAILY #30 cap Budesonide/Formoterol Fumarate [Symbicort 80-4.5 Mcg Inhaler] 2 puff INHALATION RT-BID Ipratropium-Albuterol Nebulize [Duoneb 0.5 mg-3 mg/3 ml Soln] 3 ml INHALATION RT-QID Pantoprazole [Protonix] 40 mg PO AC-BID@0800,1700 Furosemide [Lasix] 80 mg PO BID@0900,1600 #60 tab Cholecalciferol [Vitamin D3 (25 Mcg = 1000 Iu)] 50 mcg PO DAILY amLODIPine [Norvasc] 5 mg PO DAILY #1 tab Levothyroxine Sodium [Synthroid] 50 mcg PO DAILY Sennosides [Senokot] 8.6 mg PO BID SILVER sulfADIAZINE CREAM [Silvadene Cream] 1 applic TOPICAL DAILY Liraglutide [Victoza 3-Sam] 1.8 mg SQ DAILY Magnesium Oxide [Mag-Ox] 400 mg PO DAILY #30 tab Metoprolol Tartrate [Lopressor] 50 mg PO BID #60 tab Albuterol Sulfate [Albuterol Sulfate Hfa] 2 puff INHALATION RT-Q6H PRN PRN Reason: Wheezing Loratadine [Claritin] 5 mg PO DAILY #30 tab Acetaminophen [Tylenol 8 Hour] 650 mg PO Q8H PRN PRN Reason: Pain Calcium Carbonate [Tums] 500 mg PO PC-TID Lactulose [Cephulac] 20 gm PO DAILY Zinc Sulfate [Orazinc] 220 mg PO DAILY cap Ascorbic Acid [Vitamin C] 500 mg PO DAILY tab HYDROcodone/APAP 7.5-325MG [[place] 7.5-325] 1 tab PO Q4H PRN PRN Reason: Pain Morphine Sulfate [Barb] 30 mg PO Q12H Ondansetron [Zofran] 4 mg PO Q4H PRN PRN Reason: Nausea Discharge Medication List Aspirin 81 mg PO DAILY #90 chewable 07/25/19 [Rx] Atorvastatin [Lipitor] 80 mg PO DAILY 05/13/20 [History] Liraglutide [Victoza 3-Sam] 1.8 mg SQ DAILY 08/04/23 [History] Apixaban [Eliquis] 5 mg PO BID #60 tab 08/10/23 [Rx] Magnesium Oxide [Mag-Ox] 400 mg PO DAILY #30 tab 08/10/23 [Rx] Metoprolol Tartrate [Lopressor] 50 mg PO BID #60 tab 08/10/23 [Rx] Albuterol Sulfate [Albuterol Sulfate Hfa] 2 puff INHALATION RT-Q6H PRN 08/17/23 [History] Loratadine [Claritin] 5 mg PO DAILY #30 tab 08/31/23 [Rx] Tamsulosin [Flomax] 0.4 mg PO DAILY #30 cap 08/31/23 [Rx] Budesonide/Formoterol Fumarate [Symbicort 80-4.5 Mcg Inhaler] 2 puff INHALATION RT-BID 09/06/23 [History] Ipratropium-Albuterol Nebulize [Duoneb 0.5 mg-3 mg/3 ml Soln] 3 ml INHALATION RT-QID 09/06/23 [History] Pantoprazole [Protonix] 40 mg PO AC-BID@0800,1700 09/06/23 [History] Furosemide [Lasix] 80 mg PO BID@0900,1600 #60 tab 09/11/23 [Rx] Acetaminophen [Tylenol 8 Hour] 650 mg PO Q8H PRN 10/09/23 [History] Calcium Carbonate [Tums] 500 mg PO PC-TID 10/09/23 [History] Cholecalciferol [Vitamin D3 (25 Mcg = 1000 Iu)] 50 mcg PO DAILY 10/09/23 [History] Lactulose [Cephulac] 20 gm PO DAILY 10/09/23 [History] Ascorbic Acid [Vitamin C] 500 mg PO DAILY tab 10/13/23 [Rx] Zinc Sulfate [Orazinc] 220 mg PO DAILY cap 10/13/23 [Rx] amLODIPine [Norvasc] 5 mg PO DAILY #1 tab 10/16/23 [Rx] HYDROcodone/APAP 7.5-325MG [[place] 7.5-325] 1 tab PO Q4H PRN 11/27/23 [History] Levothyroxine Sodium [Synthroid] 50 mcg PO DAILY 11/27/23 [History] Morphine Sulfate [Barb] 30 mg PO Q12H 11/27/23 [History] Ondansetron [Zofran] 4 mg PO Q4H PRN 11/27/23 [History] SILVER sulfADIAZINE CREAM [Silvadene Cream] 1 applic TOPICAL DAILY 11/27/23 [History] Sennosides [Senokot] 8.6 mg PO BID 11/27/23 [History] Discharge Disposition: - Preliminary Cause of Preliminary Cause of : Urothelial carcinoma
== END 2023-12-05 19:27 | disposition expired | DRG 951 ==
LOC: 3SCARD 14:35
PROVIDERS: ADMIT Hospitalist; ATTEND Hospitalist
DX: Z51.5 Encounter for palliative care (principal); G93.41 Metabolic encephalopathy; I50.33 Acute on chronic diastolic (congestive) heart failure; J12.82 Pneumonia due to coronavirus disease 2019; J96.21 Acute and chronic respiratory failure with hypoxia; N17.0 Acute kidney failure with tubular necrosis; U07.1 COVID-19; N17.9 Acute kidney failure, unspecified; C77.0 Secondary and unspecified malignant neoplasm of lymph nodes of head, face and neck; E87.20 Acidosis, unspecified; F05 Delirium due to known physiological condition; I13.0 Hypertensive heart and chronic kidney disease with heart failure and stage 1 through stage 4 chronic kidney disease, or unspecified chronic kidney disease; I82.612 Acute embolism and thrombosis of superficial veins of left upper extremity; I82.C22 Chronic embolism and thrombosis of left internal jugular vein; N13.30 Unspecified hydronephrosis; C67.9 Malignant neoplasm of bladder, unspecified; E03.9 Hypothyroidism, unspecified; Z66 Do not resuscitate; E11.22 Type 2 diabetes mellitus with diabetic chronic kidney disease; E11.65 Type 2 diabetes mellitus with hyperglycemia; E78.5 Hyperlipidemia, unspecified; I25.10 Atherosclerotic heart disease of native coronary artery without angina pectoris; I48.0 Paroxysmal atrial fibrillation; K22.70 Barrett's esophagus without dysplasia; K20.90 Esophagitis, unspecified without bleeding; L59.8 Other specified disorders of the skin and subcutaneous tissue related to radiation; N18.32 Chronic kidney disease, stage 3b; N40.0 Benign prostatic hyperplasia without lower urinary tract symptoms; T38.0X5A Adverse effect of glucocorticoids and synthetic analogues, initial encounter; Y84.2 Radiological procedure and radiotherapy as the cause of abnormal reaction of the patient, or of later complication, without mention of misadventure at the time of the procedure; Z79.01 Long term (current) use of anticoagulants; Z79.4 Long term (current) use of insulin; Z87.891 Personal history of nicotine dependence; Z92.21 Personal history of antineoplastic chemotherapy; Z92.3 Personal history of irradiation; Z95.5 Presence of coronary angioplasty implant and graft